=== PATIENT | female | born 1945 | race Caucasian/White ===

== ENCOUNTER 2016-06-10 08:36 | Observation (INO) ==
[2016-06-10] MEDS ORDERED: 0.9 % Sodium Chloride 1,000 ML IVC SCH (09:15)
[2016-06-10] MEDS ORDERED: *HR* Midazolam HCl 5 MG/5 ML VIAL IVP ONE (10:08)
[2016-06-10] MEDS ORDERED: *HR* FentaNYL (PF) 100 MCG/2 ML VIAL ONE (10:08)
[2016-06-10] MEDS ORDERED: Clindamycin 600 MG/50 ML 1,200 MG/100 ML IV.SOLN IVPB ONE (10:09)
[2016-06-10] MEDS ORDERED: 0.9 % Sodium Chloride 500 ML ONE ×2 (10:09→10:38)
--- NOTE | 2016-06-10 10:15 | History & Physical Report ---
Date of Encounter: 06/10/16 Time of Encounter: 10:14 24 Hour HP Update - Instructions Instructions: If the History and Physical is less than 30 days old and was completed prior to A.M. admission and or procedure and has NOT been updated on calendar day of procedure please complete this update prior to performing procedure. - Update Patient reports changes in Medical Condition: No Changes in assessment/condition: No Changes in Medication: No Preop tests/diagnostics Reviewed: Yes Surgery Remains Indicated: Yes Consent for Planned Operative Procedure(s) Verified: Yes - Pre-Operative Checklist Preoperative Checklist Indicated: Yes Prophylactic Antibiotic Ordered: Yes
--- NOTE | 2016-06-10 10:15 | Pre-Sedation Evaluation ---
Pre-sedation evaluation - Pre-sedation checklist Date of procedure: 06/10/16 Procedure: UPGRADE TO BIV ICD Recent Vitals: Last Vital Signs Temp 97.6 F 06/10/16 09:19 Pulse 63 06/10/16 09:19 Resp 18 06/10/16 09:19 BP 150/76 06/10/16 09:19 Pulse Ox 99 06/10/16 09:19 H&P (including ROS) documented in medical record: Yes Previous reaction to sedatives/anesthetics: No Dietary Status: NPO after Midnight Airway Assessment: Patient can open mouth completely, TMJ function normal, Micrognathia (under-bite, receding chin) absent Dentition: dentures removed Possible difficult airway: No ASA Classification *see protocol: CLASS II-Mild systemic disease Plan of Care: Pt appropriate candidate for procedure/moderate/conscious sedation , Risks/benefits of procedure/sedation discussed w/ patient/family
[2016-06-10] MEDS ORDERED: Ondansetron 4 MG/2 ML VIAL ONE (12:10)
[2016-06-10] MEDS: Insulin LISPRO 300 UNITS/3 ML VIAL SQ SCH (17:48)
[2016-06-10] MEDS ORDERED: Clindamycin 900 MG/50 ML 900 MG/50 ML IV.SOLN IVPB SCH (18:00)
[2016-06-10] MEDS: Acetaminophen 325 MG TABLET PO PRN (20:54)
[2016-06-10] MEDS: Ascorbic Acid 500 MG TABLET PO SCH (20:54)
[2016-06-10] MEDS ORDERED: Insulin DETEMIR 100 UNIT/ML X5UNITS SQ SCH (21:00)
[2016-06-10] MEDS: Insulin DETEMIR 100 UNIT/ML X5UNITS SQ SCH (21:05)
[2016-06-11 04:12] LABS: BUN/Creatinine Ratio 29 (6-26); Blood Urea Nitrogen 48 mg/dL (7-20); Carbon Dioxide 22 mEq/L (19-29); Chloride 106 mEq/L (98-109); Potassium 4.6 mEq/L (3.5-4.5); Sodium 138 mEq/L (136-145); eGFR For African Americans 37 (> 60); eGFR For Non-African Americans 30 (> 60)
[2016-06-11] MEDS: Ascorbic Acid 500 MG TABLET PO SCH ×2 (08:52→21:56)
[2016-06-11] MEDS: Metoprolol XL (24 HR) Succ 50 MG TAB.ER.24H PO SCH (08:52)
[2016-06-11] MEDS: Multivit/Ca/Min/Fe/FA 1 TAB TABLET PO SCH (08:52)
[2016-06-11] MEDS: Aspirin Enteric Coated 81 MG Tablet PO SCH (08:52)
[2016-06-11] MEDS: Insulin LISPRO 300 UNITS/3 ML VIAL SQ SCH ×3 (08:53→17:23)
[2016-06-11] MEDS: 0.9 % Sodium Chloride 1,000 ML IVC SCH (08:58)
[2016-06-11] MEDS ORDERED: Furosemide 20 MG TABLET PO SCH (09:00)
--- NOTE | 2016-06-11 09:06 | Invasive Diagnostic Lab ---
Upgrade to BiV ICD Name: Eleni Bentley Date of Study: 06/10/2016 Date: 1945 Ht: 160.0 cm / 63.0 in Medical Record#: [id number] Age: 70 Wt: 103.9 kg / 229.0 lb Gender: Female BSA: 2.05 Location: [facility]oro Dose: 2554 mGy BMI: 40.57 Performing MD: Yannick Chavez MD, [facility] Referring MD: Wale Lam DO Procedures Performed: Procedure LV LEAD INSERTION ICD GEN CHANGE BiV(3 leads) Indications: Description Ischemic cardiomyopathy Impressions: GENERATOR UPGRADE * Successful upgrade of a dual chamber ICD to a biventricular ICD. Degree of difficulty was severe. Appropriate device functionality was observed at the end of the case. Procedure complete without incident. Recommendations: The patient will follow-up in 4-6 weeks for ICD interrogation and evaluation with their Computer Technology Instructor. Procedure Description: After obtaining written informed consent, the patient was brought to the electrophysiology laboratory in the fasting, post absorptive state. Prior to the procedure, the device was interrogated and all therapies were turned off. The patient was prepped and draped using routine sterile procedure. Local anesthesia was obtained with 1% Lidocaine. A 3 cm incision was made at the site of the previous defibrillator. The incision was carried down to the level of the device. The device was explanted without difficulty. The leads were released from the scar tissue. All leads were examined thoroughly and no staining or insulation break was observed. Venous access was obtained using one Axillary vein sticks. A total of one venous guide wires were utilized. The coronary sinus lead was then placed. A 9 Fr. Safe sheath was used. This required multiple predilations to finally pass the 9 pashto sheath. Delivery was achieved using the [employer] 5260 Delivery System delivery system to engage the coronary sinus in the LAURIE projection. Once the coronary sinus was accessed the sheath was slid over the lead into the coronary sinus and contrast venography was performed. This required multiple attempts to cannulate due to a high take off and acute angle of the CS. The lead was placed in the posterolateral branch. There was good separation of the RV and LV in this location. Using an extended bipolar configuration, going from the coil of the LV to the RV distal coil, the sensing and pacing parameters were obtained. See device, pacing and sensing data below. The coronary sinus lead was sutured to the underlying fascia with a #0 silk. The RV lead was sutured to the prepectoral fascia with #0 silk. The pocket was revised to accommodate the new defibrillator size, and hemostasis achieved. Leads were connected to the new pulse generator and placed in the pocket. Defibrillation threshold testing was not done. After copious irrigation of the pocket with antibiotic solution the pocket was closed with absorbable sutures. The skin was closed with a running subcuticular absorbable suture. Steri-strips and pressure dressing applied. The patient tolerated the procedure well. Complications: None Disposition: The patient was returned to the recovery room. Patient will be scheduled to have a follow-up wound check in one week here at [facility]. ICD Device Information: Bottom Liquor Attendant Model Name Model Number Serial Number medtronic Claria MRI Quad TOOLING SPECIALIST-D SureScan [id number] ICD Lead(s) Information: Bottom Liquor Attendant Model Name Model No. Serial No. Placement Medtronic CapSureFix Novus 5076 [id number] RA appendage Medtronic Sprint quattro secure 6947 [id number] RV Ponce medtronic attain performa 4298 [id number] CS ostium Device Measurement Data: Sensing (mV) Threshold (V) / (msec) Impedance (Ohms) Atrial Lead 1.8 0.5 / 0.4 450 RV Lead 8 1 / 0.4 500 LV Lead 1.7 / 0.5 763 Device Settings: MODE: DDDR Lower Rate: 60 bpm ELVIRA Delay: Upper Rate: 120 bpm PAV Delay: Procedure Medications: Time Medication Dose Unit Route 10:26 AM Oxygen 2 L/min nasal cannula 10:28 AM Clindamycin 600 mg Intravenous 10:28 AM Versed 1 Mg Intravenous 10:28 AM Fentanyl 25 Mcg Intravenous 10:49 AM Lidocaine 2% 10 mL Subcutaneous 10:53 AM Lidocaine 2% 4 mL Subcutaneous 11:00 AM Lidocaine 2% 3 mL Subcutaneous 11:59 AM Versed 1 Mg Intravenous 11:59 AM Fentanyl 25 Mcg Intravenous 12:10 PM Zofran 4 mg Intravenous 12:26 PM Versed 1 Mg Intravenous 12:26 PM Fentanyl 25 Mcg Intravenous 01:20 PM Lidocaine 2% 3 mL Subcutaneous 01:24 PM Lidocaine 2% 2 mL Subcutaneous Contrast: Isovue 114 ml. Complications: No complications occurred during the procedure. Complication None Updated by Yannick Chavez MD, FACC on 06/11/2016 8:59:58 AM electronically signed on 06/11/2016 9:01:35 AM with status of Final
[2016-06-11] MEDS: *HR* Morphine 2 MG/ML SYRINGE IVP PRN (11:22)
--- NOTE | 2016-06-11 11:35 | Discharge Summary ---
Date of Encounter: 06/11/16 Time of Encounter: 11:30 - Discharge Diagnosis (1) Biventricular ICD (implantable cardioverter-defibrillator) in place Priority: Primary Status: Acute Comments: S/P BiV-ICD upgrade yesterday. Device interrogation and CXR okay. Left chest site healing well. No bleeding, hematoma or ecchymosis. Steri-strips intact. Creatinine 1.68 today--hx of CKD with fluctuating creatinine. Creatinine was 1.73 on 05/05, 1.20 on 06/01. Gentle hydration with IV fluids. Recheck renal function at noon and if improving, will discharge home. Follow-up already scheduled--wound check in 7-10 days, device check in 4-6 weeks and follow-up with Dr. Yannick Chavez in 3 months. (2) CKD (chronic kidney disease) stage 3, GFR 30-59 ml/min Priority: Secondary Status: Chronic Comments: Known CKD stage 3 with fluctuating creatinine. 1.68 this AM. Was 1.73 on 05/05 and 1/20 on 06/01. Will gently hydrate with IV fluids and recheck BMP at noon. If stable/improving, will discharge home. - Discharge Medications Home Medications: Clopidogrel [Plavix] 75 mg PO DAILY 11/08/14 [History] Ergocalciferol (VITAMIN D2) [Drisdol (50,000 Unit)] 50,000 unit PO MOTH [History] Losartan Potassium [Cozaar] 50 mg PO DAILY 11/08/14 [History] Ascorbic Acid [Vitamin C] 500 mg PO BID tablet 08/04/15 [Rx] Aspirin Enteric Coated [Aspirin EC] 81 mg PO DAILY 08/20/15 [History] Metoprolol XL (24 HR) Succ [Toprol Xl] 50 mg PO DAILY #30 tab.er.24h 01/07/16 [ Rx] Furosemide [Lasix] 20 mg PO DAILY 06/10/16 [History] Insulin Glargine,Hum.rec.anlog [Toujeo Solostar] 45 units SQ HS 06/10/16 [ History] Insulin LISPRO [HumaLOG] 18 units SQ TIDWM 06/10/16 [History] Multivit-Minerals/Folic/Ginkgo [One Daily For Women 50+ Adv Tb] 1 each PO DAILY 06/10/16 [History] Allergies/Adverse Reactions: Allergies venom-honey bee [bee venom (honey bee)] Allergy (Severe, Verified 06/10/16 09:16 ) Swelling of Lip/Tongue/Throat Cortisone Allergy (Mild, Verified 06/10/16 09:16) Hives NSAIDS (Non-Steroidal Anti-Inflamma Adverse Reaction (Mild, Verified 06/10/16 09 :16) UPSET STOMACH cefazolin [From Ancef] Adverse Reaction (Verified 06/10/16 09:16) Hives Lmmfdrk-Mhf-Hgu Reductase Inhibitor [Statins] Adverse Reaction (Verified 09:16) Muscle Pain GRAPE FLAVOR Allergy (Mild, Uncoded 06/10/16 09:16) Swelling of the Eye Procedures/tests Complete & Pending: Procedures Performed prior 72 hours Category Date Time Status CL Insert BiV ICD [CL] Routine Metal Casket Assembler 06/10/16 09:08 Completed ECG 12 lead ECG [ECG] Stat Y 06/10/16 09:09 Completed Date of admission: 06/10/16 Primary care physician: Martine Crespo Discharging clinician: Rommel Castorena Anticipated date of discharge: 06/11/16 - Patient Status Disposition: Home, Self-Care Condition: Fair Functional capacity at discharge: independent ambulation Overall status at discharge: patient is progressing back to baseline - Discharge Instructions Follow Up With: Wale Lam DO [Primary Care Provider] - Additional Instructions: ACTIVITY: Moderate activity for the next 7 days. No lifting more than 5 pounds ( gallon of milk) for 1 week. BATHING /SHOWERING: Do not remove the large bandage over the site for 2 days. Do not allow the device to get wet for 7-10 days. You may bathe/shower, but do not use soap and water on the site. When bathing, keep the site dry by covering with Saran wrap or a towel. WOUND CARE: The white steri-strips will start to peel away and come off after 14 days, or your doctor will remove them after [address] anything into or on top of the incision. Do not use cotton swabs. Do not use any antibiotic ointment or Vitamin E on the site. REMINDERS: You may use electrical devices, such as, microwaves, hair dryers, electric razors, electric blankets, etc. as long as they are in good condition and kept 6 -8 inches away from the device. It is recommended to use cell phones on the opposite side of your device. Notify security personnel at the airport that you have a device before you go through airport security screening. When at places with security monitors, such as a grocery store, do not linger near these monitors. It is fine to walk past them in a normal manner. Refer to your owners manual for more specific directions. CARRY YOUR PACEMAKER/ICD CARD WITH YOU AT ALL TIMES Return to work as instructed per physician Resume driving as instructed per physician Keep all scheduled follow up appointments Resume medications as instructed Contact [facility] ( ) if: You develop excessive bleeding from insertion or wound site not controlled by applying pressure You develop a fever greater than 101 degrees Fahrenheit Your incision becomes reddened at or around the site Your incision develops yellowish or greenish drainage or development of white pimple-like bumps You experience excessive pain You develop swelling in your ankles You experience muscle switching You develop excessive hiccupping If you experience chest pain, shortness of breath, dizziness, or extreme tiredness, stop the activity and rest. Please notify [facility] office if you experience any of these symptoms and they are not relieved by rest please call 911! - Diet and Activity Activity: increase activity as tolerated Diet: low fat, low cholesterol, low salt diet - Hospital Course Hospital course: Ms. Bentley is a 70 year old female S/P BiV-ICD upgrade yesterday. Device interrogation and CXR okay. Left chest site healing well. No bleeding, hematoma or ecchymosis. Steri-strips intact. Creatinine 1.68 today--hx of CKD with fluctuating creatinine. Creatinine was 1.73 on 05/05, 1.20 on 06/01. Gentle hydration with IV fluids. Recheck renal function at noon and if improving, will discharge home. Follow-up already scheduled--wound check in 7-10 days, device check in 4-6 weeks and follow-up with Dr. Yannick Chavez in 3 months. - Time Spent with Patient Total time spent providing and/or coordinating discharge services: Physical Examination Vital Signs, Last 4 Hours Temp Pulse Resp BP Pulse Ox 06/11/16 08:00 98.0 F 72 14 128/72 95 Vital Signs Temp Pulse Resp BP Pulse Ox 06/11/16 11:45 97.7 F 71 18 163/78 97 06/11/16 08:00 98.0 F 72 14 128/72 95 06/11/16 04:21 98.0 F 77 16 145/75 93 L 06/11/16 00:45 98.1 F 91 16 171/77 95 06/10/16 19:37 97.9 F 83 18 158/78 97 06/10/16 15:30 97.7 F 61 18 146/82 97 Intake and Output 06/10/16 06/11/16 06/11/16 23:59 07:59 15:59 Intake Total 200 / 200 Output Total 400 / 400 Balance 200 / 200 -400 / -400 Intake: Oral 200 / 200 Output: Urine 400 / 400 Other: Meal Dinner Percent of Meal Consumed 95% # Voids 2 Weight 102.24 kg Blood Glucose* 348 135 Patient Weight 06/11/16 23:59 Weight 102.24 kg General: Conversant, No Apparent Distress HEENT: Atraumatic, Normocephaly, Mucus Membranes Moist Neck: No JVD, Normal carotid pulses Cardiac: Reg Rate and Rhythm, Normal S1 and S2, No Murmur Lungs: Normal Breath Sounds, No Wheeze, Rales, Rhonchi Neuro: Alert and responsive, No focal deficits noted Abdomen: Soft, Non-Tender Skin: Other (Left side chest device site healing well. No bleeding, hematoma or ecchymosis noted.) Musculoskeletal: No Chest Wall Tenderness Extremities: No Clubbing, No Cyanosis, No Edema, Normal Pulses
[2016-06-11 14:38] LABS: Calcium 9.4 mg/dL (8.6-10.8)
[2016-06-11 14:40] LABS: Potassium 5.6 mEq/L (3.5-4.5)
[2016-06-11] MEDS: 0.9 % Sodium Chloride 500 ML IVC SCH (15:52)
[2016-06-11] MEDS: Acetaminophen 325 MG TABLET PO PRN (15:55)
[2016-06-11] MEDS: *HR* Heparin 5,000 UNIT/ML VIAL SQ SCH (17:24)
--- NOTE | 2016-06-11 17:49 | Electrocardiograph Report ---
[place] [id number] Test Date: 2016-06-10 Pat Name: Eleni Bentley Department: 106 Room: 3B24 Gender: F Locum Tenens: : 1945 Requested By: Yannick Chavez Order Number: [id number] Reading MD: Lore Chavez Measurements Intervals [place] Rate: 61 P: 177 OR: 180 QRS: -75 QRSD: 175 T: 103 QT: 506 QTc: 508 Interpretive Statements ELECTRONIC ATRIAL PACEMAKER ELECTRONIC VENTRICULAR PACEMAKER ABNORMAL RHYTHM ECG Electronically Signed On 06-11-2016 17:47:09 EST by Lore Chavez
[2016-06-11] MEDS: Insulin DETEMIR 100 UNIT/ML X5UNITS SQ SCH (21:56)
[2016-06-12] MEDS: 0.9 % Sodium Chloride 500 ML IVC SCH ×2 (05:16→08:50)
[2016-06-12] MEDS: 0.9 % Sodium Chloride 1,000 ML IVC SCH ×2 (05:16→08:41)
[2016-06-12] MEDS: *HR* Heparin 5,000 UNIT/ML VIAL SQ SCH (05:17)
[2016-06-12] MEDS: Acetaminophen 325 MG TABLET PO PRN (05:18)
[2016-06-12 05:29] LABS: Calcium 9.5 mg/dL (8.6-10.8); Potassium 4.8 mEq/L (3.5-4.5)
[2016-06-12] MEDS: Aspirin Enteric Coated 81 MG Tablet PO SCH (08:39)
[2016-06-12] MEDS: Metoprolol XL (24 HR) Succ 50 MG TAB.ER.24H PO SCH (08:39)
[2016-06-12] MEDS: Insulin LISPRO 300 UNITS/3 ML VIAL SQ SCH ×2 (08:39→12:11)
[2016-06-12] MEDS: Multivit/Ca/Min/Fe/FA 1 TAB TABLET PO SCH (08:39)
[2016-06-12] MEDS: Ascorbic Acid 500 MG TABLET PO SCH (08:39)
[2016-06-12] MEDS: *HR* Morphine 2 MG/ML SYRINGE IVP PRN (08:39)
[2016-06-12 11:02] VITALS: BP 155/77
--- NOTE | 2016-06-12 11:32 | Discharge Summary ---
Date of Encounter: 06/12/16 Time of Encounter: 11:20 - Discharge Diagnosis (1) Biventricular ICD (implantable cardioverter-defibrillator) in place Priority: Primary Status: Acute (2) CKD (chronic kidney disease) stage 3, GFR 30-59 ml/min Priority: Primary Status: Acute Comments: Mild TENISHA on CKD. - Discharge Medications Home Medications: Clopidogrel [Plavix] 75 mg PO DAILY 11/08/14 [History] Ergocalciferol (VITAMIN D2) [Drisdol (50,000 Unit)] 50,000 unit PO MOTH [History] Ascorbic Acid [Vitamin C] 500 mg PO BID tablet 08/04/15 [Rx] Aspirin Enteric Coated [Aspirin EC] 81 mg PO DAILY 08/20/15 [History] Metoprolol XL (24 HR) Succ [Toprol Xl] 50 mg PO DAILY #30 tab.er.24h 01/07/16 [ Rx] Insulin Glargine,Hum.rec.anlog [Toujeo Solostar] 45 units SQ HS 06/10/16 [ History] Insulin LISPRO [HumaLOG] 18 units SQ TIDWM 06/10/16 [History] Multivit-Minerals/Folic/Ginkgo [One Daily For Women 50+ Adv Tb] 1 each PO DAILY 06/10/16 [History] Allergies/Adverse Reactions: Allergies venom-honey bee [bee venom (honey bee)] Allergy (Severe, Verified 06/10/16 09:16 ) Swelling of Lip/Tongue/Throat Cortisone Allergy (Mild, Verified 06/10/16 09:16) Hives NSAIDS (Non-Steroidal Anti-Inflamma Adverse Reaction (Mild, Verified 06/10/16 09 :16) UPSET STOMACH cefazolin [From Ancef] Adverse Reaction (Verified 06/10/16 09:16) Hives Gsofrxf-Zye-Mmz Reductase Inhibitor [Statins] Adverse Reaction (Verified 09:16) Muscle Pain GRAPE FLAVOR Allergy (Mild, Uncoded 06/10/16 09:16) Swelling of the Eye Procedures/tests Complete & Pending: Procedures Performed prior 72 hours Category Date Time Status CL Insert BiV ICD [CL] Routine Barrel Scraper 06/10/16 09:08 Completed ECG 12 lead ECG [ECG] Stat Y 06/10/16 09:09 Completed Date of admission: 06/11/16 15:23 Primary care physician: Martine Crepso Discharging clinician: Ayaz Betancourt Anticipated date of discharge: 06/12/16 - Patient Status Disposition: Home, Self-Care Condition: Fair Functional capacity at discharge: independent ambulation - Ambulatory Orders Ambulatory Orders: Basic Metabolic Panel [CHEM] Time Frame: 3 Days, Facility: [facility], Location: Lab - Discharge Instructions Follow Up With: Wale Lam DO [Primary Care Provider] - Bruno Cardona MD [Partnered Physician] - (Please schedule appt in 1 -2 weeks. ) Additional Instructions: ACTIVITY: Moderate activity for the next 7 days. No lifting more than 5 pounds ( gallon of milk) for 1 week. BATHING /SHOWERING: Do not remove the large bandage over the site for 2 days. Do not allow the device to get wet for 7-10 days. You may bathe/shower, but do not use soap and water on the site. When bathing, keep the site dry by covering with Saran wrap or a towel. WOUND CARE: The white steri-strips will start to peel away and come off after 14 days, or your doctor will remove them after [address] anything into or on top of the incision. Do not use cotton swabs. Do not use any antibiotic ointment or Vitamin E on the site. REMINDERS: You may use electrical devices, such as, microwaves, hair dryers, electric razors, electric blankets, etc. as long as they are in good condition and kept 6 -8 inches away from the device. It is recommended to use cell phones on the opposite side of your device. Notify security personnel at the airport that you have a device before you go through airport security screening. When at places with security monitors, such as a grocery store, do not linger near these monitors. It is fine to walk past them in a normal manner. Refer to your owners manual for more specific directions. CARRY YOUR PACEMAKER/ICD CARD WITH YOU AT ALL TIMES Return to work as instructed per physician Resume driving as instructed per physician Keep all scheduled follow up appointments Resume medications as instructed Contact [facility] ( ) if: You develop excessive bleeding from insertion or wound site not controlled by applying pressure You develop a fever greater than 101 degrees Fahrenheit Your incision becomes reddened at or around the site Your incision develops yellowish or greenish drainage or development of white pimple-like bumps You experience excessive pain You develop swelling in your ankles You experience muscle switching You develop excessive hiccupping If you experience chest pain, shortness of breath, dizziness, or extreme tiredness, stop the activity and rest. Please notify [facility] office if you experience any of these symptoms and they are not relieved by rest please call 911! - Diet and Activity Activity: increase activity as tolerated Diet: low fat, low cholesterol - Hospital Course Hospital course: Ms. Bentley is a 70 year old female S/P BiV-ICD upgrade 06/10/[address] Yannick Chavez. Device interrogation and CXR okay. Left chest site healing well. No bleeding, hematoma or ecchymosis. Steri-strips intact. Creatinine 1.88 today-- hx of CKD with fluctuating creatinine. Creatinine was 1.73 on 05/05, 1.20 on . SHe was kept an extra 24 hours to receive gentle hydration with IV fluids. Recommend checking BMP on tuesday. Encouraged fluid intake. Currenlty appears dry. Cozaar and lasix on hold. 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 Follow-up already scheduled--wound check in 7-10 days, device check in 4-6 weeks and follow-up with Dr. Yannick Chavez in 3 months. Plan of care discussed with Dr. Downs. - Time Spent with Patient Total time spent providing and/or coordinating discharge services: Greater than 30 minutes Specific discharge activities: Dc summary, d/c teaching, and medication reconciliation. Physical Examination Vital Signs, Last 4 Hours Temp Pulse Resp BP Pulse Ox 06/12/16 11:02 97.6 F 64 16 155/77 97 General: Conversant, No Apparent Distress HEENT: Atraumatic, Normocephaly, Mucus Membranes Moist Neck: No JVD, Normal carotid pulses Cardiac: Reg Rate and Rhythm, Normal S1 and S2, No Murmur Lungs: Normal Breath Sounds, No Wheeze, Rales, Rhonchi Neuro: Alert and responsive, No focal deficits noted Abdomen: Soft, Non-Tender Skin: No rashes noted on visualized skin Musculoskeletal: No Chest Wall Tenderness, Other (JEFF incisions with steri strips intact. No redness or drainage. No ecchymosis. No swelling noted. Mild tenderness. Atrial and AV pacing noted on telemetry.) Extremities: No Clubbing, No Cyanosis, No Edema, Normal Pulses
== END 2016-06-12 14:25 | disposition home or self-care (01) ==
LOC: INVDIALAB 08:36 → 3BNU 08:36
PROVIDERS: ADMIT Internal Medicine Clinical Cardiac Electrophysiology; ATTEND Internal Medicine Clinical Cardiac Electrophysiology

== ENCOUNTER 2016-10-02 19:50 | Inpatient (IN) ==
[2016-10-02] MEDS ORDERED: 0.9 % Sodium Chloride 500 ML IVC ONE (20:11)
[2016-10-02] MEDS ORDERED: Aspirin 325 MG TABLET PO ONE (20:12)
--- NOTE | 2016-10-02 20:21 | Emergency Department Note ---
Disposition Clinical Impression: Generalized weakness, Acute kidney injury superimposed on chronic kidney disease, Elevated troponin, Hyperglycemia TIA (transient ischemic attack) Qualifiers: Transient cerebral ischemia type: unspecified Qualified Code(s): G45.9 - Transient cerebral ischemic attack, unspecified Disposition: Admitted As Inpatient Condition: Undetermined Time of Disposition: 21:37 General Adult HPI - General Chief complaint: ED Back Pain/Injury Stated complaint: unable to walk back pain Time Seen by Provider: 10/02/16 20:00 Source: patient Mode of arrival: wheelchair Limitations: no limitations Nursing Notes Reviewed: Yes Vital Signs Reviewed: Yes - History of Present Illness HPI Narrative: 70-year-old female with history of ID, CVA, arrives to [facility] emergency department with left lower extremity weakness that has now resolved. The patient states that she was attempting to get into her family vehicle and was unable to lift her left lower extremity into the vehicle. The patient states that she felt weak in the left lower finger was unable to lift it. The patient states this kind of felt like her previous stroke in the past but states it is now resolved. The patient states that she was laying in the backseat of a vehicle she felt very weak and had back pain. The patient still feels weak all over but denies any focalized weakness and is able to move her left lower extremity without difficulty this time. The patient states that her back pain is beginning to resolve. The patient denies any chest pain, difficulty breathing but does admit to large amount of leg swelling. The patient was recently discharged from the hospital for CHF exacerbation. She has been experiencing seeping wounds of bilateral lower extremity. Patient denies any fevers, chills associated with this. The patient denies any headache , numbness, tingling, slurred speech, facial droop, unilateral extremity weakness noted at this time. The patient states that it has resolved now. 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: back Pain Severity: moderate Pain Scale: 8 Improves with: nothing Worsens with: nothing Associated symptoms: Reports: weakness Treatments Prior to Arrival: none - Related Data Home Medications Medication Instructions Recorded Confirmed Clopidogrel [Plavix] 75 mg PO DAILY 11/08/14 10/03/16 Ergocalciferol (VITAMIN D2) 50,000 unit PO QWEEK 11/08/14 10/03/16 [Drisdol (50,000 Unit)] Aspirin Enteric Coated [Aspirin EC] 81 mg PO DAILY 08/20/15 10/03/16 Insulin Glargine,Hum.rec.anlog 45 units SQ HS 06/10/16 10/03/16 [Todaniel Raymundo] Insulin LISPRO [HumaLOG] 18 units SQ TIDWM 06/10/16 10/03/16 Multivit-Minerals/Folic/Ginkgo 1 each PO DAILY 06/10/16 10/03/16 [One Daily For Women 50+ Adv Tb] Previous Rx's Medication Instructions Recorded Ascorbic Acid [Vitamin C] 500 mg PO BID tablet 08/04/15 Metoprolol XL (24 HR) Succ [Toprol 50 mg PO DAILY #30 tab.er.24h 01/07/16 Xl] Allergies Allergy/AdvReac Type Severity Reaction Status Date / Time venom-honey bee Allergy Severe Swelling Verified 06/10/16 09:16 [bee venom (honey bee)] of Lip/Tongue/Throat Cortisone Allergy Mild Hives Verified 06/10/16 09:16 Penicillins Allergy See Verified 10/02/16 19:59 Comments NSAIDS (Non-Steroidal AdvReac Mild UPSET Verified 06/10/16 09:16 Anti-Inflamma STOMACH cefazolin [From Ancef] AdvReac Hives Verified 06/10/16 09:16 Ywpezfs-Fcx-Ies Reductase AdvReac Muscle Pain Verified 06/10/16 09:16 Inhibitor [Statins] GRAPE FLAVOR Allergy Mild Swelling Uncoded 06/10/16 09:16 of the Eye All systems ED: reviewed and negative except as stated. Constitutional: Reports: weakness. Denies: fever, chills Eyes: Denies: eye pain, eye discharge, vision change ENT ED: Denies: ear pain, throat pain, dental pain, hearing loss, epistaxis, congestion, dysphagia Cardiovascular: Reports: dyspnea on exertion, edema. Denies: chest pain, palpitations, syncope Respiratory: Denies: cough, dyspnea, wheezes, hemoptysis, stridor Gastrointestinal: Denies: abdominal pain, nausea, vomiting, diarrhea, constipation, hematemesis, melena, hematochezia Genitourinary: Denies: dysuria, frequency, hematuria, discharge Musculoskeletal: Denies: back pain, neck pain, arthralgia, myalgia Integumentary: Denies: rash, abrasion, lesions Neurological: Reports: weakness. Denies: headache, numbness, paresthesias, confusion, abnormal gait, vertigo Past Medical History - Past Medical History Attestation: Yes The following information was validated with the patient. Source: patient Medical history: Reports: cardiomyopathy, CHF, coronary artery disease, CVA, diabetes, GERD, hyperlipidemia, hypertension, kidney stones, myocardial infarction, peripheral artery disease, renal disease, TIA Surgical history: Reports: appendectomy, breast surgery, carotid endarterectomy , cholecystectomy, coronary bypass (CABG), hysterectomy, pacemaker/AICD Psychiatric history: Reports: depression - Social History Smoking Status: Former smoker Smokeless Tobacco Status: No Alcohol use: Reports: none Drug use: Reports: none Physical Exam - General Limitations: no limitations General appearance: alert, in no apparent distress - Neck Neck exam: Present: normal inspection, full ROM, trachea midline - Chest Chest inspection: Present: normal inspection, symmetric chest wall rise - Respiratory Respiratory exam: Present: other (Mild rales in b/l lower lobes) - Cardiovascular Cardiovascular exam: Present: regular rate, normal rhythm, normal heart sounds - Abdominal Exam Abdominal exam: Present: soft, Non-Tender. Absent: tenderness, distention, guarding, rebound, rigidity - Extremities Exam Extremities exam: Present: full ROM, pedal edema (1+ pitting), other (Numerous amputations on left foot). Absent: tenderness - Neurological Exam Neurological exam: Present: alert, oriented X3 - Skin Skin exam: Present: warm, dry, intact, normal color Course Vital Signs Temperature 97.9 F 10/02/16 19:54 Pulse Rate 76 10/02/16 19:54 Respiratory Rate 18 10/02/16 19:54 Blood Pressure 152/73 10/02/16 19:54 O2 Sat by Pulse Oximetry 100 10/02/16 19:54 Temperature 97.6 F 10/02/16 23:36 Pulse Rate 73 10/02/16 23:36 Respiratory Rate 17 10/02/16 23:36 Blood Pressure 156/79 10/02/16 23:36 O2 Sat by Pulse Oximetry 97 10/02/16 23:36 Oxygen Delivery Oxygen Delivery Room Air Medical Decision Making - MDM Narrative Medical decision making narrative: Patient's workup here in the emergency department demonstrates hyperglycemia, elevated troponin, acute on chronic kidney disease. The patient's creatinine is slightly elevated compared to her has been in the past. In addition the patient's weakness may be associated with symptomatic hyperglycemia but given her previous history of TIA and CVA, I am concerned about possible TIA. She has no residual deficits noted at this time. Given the patient's symptoms and findings will admit the patient to the hospital. Accepted by Dr. Orozco. - Medical Records Medical records reviewed: Yes I reviewed the patient's medical records. - Lab Data Lab results reviewed: Yes I reviewed the patient's lab results. Result diagrams: 10/02/16 20:20 10/02/16 20:20 Lab Results 10/02/16 10/02/16 10/02/16 Range/Units 20:20 20:20 20:20 WBC 7.6 (4.3-11.1) K/mcL RBC 4.46 (3.82-4.97) M/mcL Hgb 12.4 (11.5-15.4) g/dL Hct 38.8 (35.3-44.9) % MCV 87.0 (83.0-100.0) fL MCH 27.8 L (28.0-33.3) pg MCHC 32.0 (31.6-35.5) g/dL RDW 14.3 (11.5-14.5) % Plt Count 274 (140-400) K/mcL MPV 11.1 (9.4-12.4) fL Immature Gran % 0.8 (0-4) % Seg Neutrophils % 67.9 % Lymphocytes % 16.6 % Monocytes % 6.5 % Eosinophils % 7.5 % Basophils % 0.7 % Neutrophils # 5.1 (1.6-8.9) K/mcL Lymphocytes # 1.3 (0.6-4.6) K/mcL Monocytes # 0.5 (0.0-1.3) K/mcL Eosinophils # 0.6 (0.0-0.6) K/mcL Basophils # 0.1 (0.0-0.2) K/mcL VBG pH (7.32-7.42) pH Units VBG pCO2 (41-51) mmHg VBG pO2 (25-40) mmHg VBG HCO3 (21-27) mEq/L Sodium 133 L (136-145) mEq/L Potassium 4.4 (3.5-4.5) mEq/L Chloride 100 (98-109) mEq/L Carbon Dioxide 19 (19-29) mEq/L BUN 71 H (7-20) mg/dL Creatinine 2.20 H (0.57-1.11) mg/dL Est GFR ( Amer) 27 L (> 60) Est GFR (Non-Af Amer) 22 L (> 60) BUN/Creatinine Ratio 32 H (6-26) Glucose 486 H (70-99) mg/dL Calculated Osmolality 318 H (280-300) Calcium 9.9 (8.6-10.8) mg/dL Total Bilirubin 0.8 (0.2-1.2) mg/dL AST 16 (5-34) Units/L ALT 11 (0-55) Units/L Alkaline Phosphatase 159 H (38-126) Units/L Troponin I 0.09 H* (0-0.03) ng/mL B-Natriuretic Peptide (0-100) pg/mL Serum Total Protein 7.9 (6.0-8.3) g/dL Albumin 2.9 L (3.5-5.0) g/dL Globulin 5.0 H (2.4-3.5) g/dL Albumin/Globulin Ratio 0.6 L (1.1-2.2) Beta-Hydroxybutyric Acd 0.25 (0.02-0.27) mmol/L Urine Color (Yellow) Urine Clarity (Clear) Urine pH (5.0-8.0) pH Units Ur Specific [place] (1.010-1.025) Urine Protein (Neg-Trace) mg/dL Urine Glucose (UA) (Normal) mg/dL Urine Ketones (Negative) mg/dL Urine Blood (Negative) Urine Nitrite (Negative) Urine Bilirubin (Negative) Urine Urobilinogen (Normal) mg/dL Ur Leukocyte Esterase (Negative) Urine Microscopic RBC (0-3) per hpf Urine Microscopic WBC (0-3) per hpf Ur Squamous Epith Cells (None-Few) per lpf Urine Bacteria (None-Few) per hpf Hyaline Casts (None-Few) per lpf Ur Culture Indicated? (NO) 10/02/16 10/02/16 10/02/16 Range/Units 20:20 20:20 21:40 WBC (4.3-11.1) K/mcL RBC (3.82-4.97) M/mcL Hgb (11.5-15.4) g/dL Hct (35.3-44.9) % MCV (83.0-100.0) fL MCH (28.0-33.3) pg MCHC (31.6-35.5) g/dL RDW (11.5-14.5) % Plt Count (140-400) K/mcL MPV (9.4-12.4) fL Immature Gran % (0-4) % Seg Neutrophils % % Lymphocytes % % Monocytes % % Eosinophils % % Basophils % % Neutrophils # (1.6-8.9) K/mcL Lymphocytes # (0.6-4.6) K/mcL Monocytes # (0.0-1.3) K/mcL Eosinophils # (0.0-0.6) K/mcL Basophils # (0.0-0.2) K/mcL VBG pH 7.34 (7.32-7.42) pH Units VBG pCO2 41 (41-51) mmHg VBG pO2 58 H (25-40) mmHg VBG HCO3 22.1 (21-27) mEq/L Sodium (136-145) mEq/L Potassium (3.5-4.5) mEq/L Chloride (98-109) mEq/L Carbon Dioxide (19-29) mEq/L BUN (7-20) mg/dL Creatinine (0.57-1.11) mg/dL Est GFR ( Amer) (> 60) Est GFR (Non-Af Amer) (> 60) BUN/Creatinine Ratio (6-26) Glucose (70-99) mg/dL Calculated Osmolality (280-300) Calcium (8.6-10.8) mg/dL Total Bilirubin (0.2-1.2) mg/dL AST (5-34) Units/L ALT (0-55) Units/L Alkaline Phosphatase (38-126) Units/L Troponin I (0-0.03) ng/mL B-Natriuretic Peptide 347 H (0-100) pg/mL Serum Total Protein (6.0-8.3) g/dL Albumin (3.5-5.0) g/dL Globulin (2.4-3.5) g/dL Albumin/Globulin Ratio (1.1-2.2) Beta-Hydroxybutyric Acd (0.02-0.27) mmol/L Urine Color Yellow (Yellow) Urine Clarity Cloudy A (Clear) Urine pH 5.0 (5.0-8.0) pH Units Ur Specific [place] 1.022 (1.010-1.025) Urine Protein 100 H (Neg-Trace) mg/dL Urine Glucose (UA) >=1000 H (Normal) mg/dL Urine Ketones Negative (Negative) mg/dL Urine Blood Negative (Negative) Urine Nitrite Negative (Negative) Urine Bilirubin Negative (Negative) Urine Urobilinogen Normal (Normal) mg/dL Ur Leukocyte Esterase Negative (Negative) Urine Microscopic RBC 0-3 (0-3) per hpf Urine Microscopic WBC 0-3 (0-3) per hpf Ur Squamous Epith Cells Many H (None-Few) per lpf Urine Bacteria None Seen (None-Few) per hpf Hyaline Casts None Seen (None-Few) per lpf Ur Culture Indicated? NO (NO) - Radiology Data Radiology results reviewed: Yes I reviewed the patient's radiology results. - EKG Data EKG #1 EKG attestation: Yes I reviewed and interpreted this EKG. EKG results narrative: Heart rate 87 bpm. OR interval 149 ms. QTC 491 ms. Normal axis. Electronic ventricular pacemaker care. No ST elevation or depression noted. EKG otherwise similar to EKG from 06/20/2016. Q changes noted. Attestation Statement - Attestation Attestation: The resident's plan of care. In summary this is a 70-year-old female presents with concern for weakness. She does not a history of uncontrolled diabetes. She was found to have hyperglycemia on arrival. She was treated for possible diabetic ketoacidosis. Ultimately she was found to have likely symptomatic hyperglycemia as well as chronic skin changes of the lower extremities. Given her complaint of weakness with complete return to normal neurologic status over the procedure with admission for rule out of transischemic attack. Additionally given the degree of hyperglycemia the patient is experiencing I would suspect she would benefit from aggressive inpatient treatment. IV fluids were initiated. Cardiac biomarkers were evaluated. She was found have acute kidney injury. Her cardiac biomarkers were slightly elevated. She was administered aspirin. I do not suspect a ID at this time as she denies chest pain however she will need turning of her cardiac biomarkers. I would defer anticoagulation to the hospitalist team. The patient was stable at the time of admission. IV fluids were initiated. Patient be admitted to telemetry services with frequent neurological checks.
[2016-10-02 20:28] LABS: Basophils # 0.1 K/mcL (0.0-0.2); Basophils % 0.7 %; Eosinophils # 0.6 K/mcL (0.0-0.6); Eosinophils % 7.5 %; Hematocrit 38.8 % (35.3-44.9); Hemoglobin 12.4 g/dL (11.5-15.4); Immature Granulocytes % 0.8 % (0-4); Lymphocytes # 1.3 K/mcL (0.6-4.6); Lymphocytes % 16.6 %; Mean Corpuscular Hemoglobin 27.8 pg (28.0-33.3); Mean Platelet Volume 11.1 fL (9.4-12.4); Monocytes # 0.5 K/mcL (0.0-1.3); Monocytes % 6.5 %; Neutrophils # 5.1 K/mcL (1.6-8.9); Platelet Count 274 K/mcL (140-400); Red Blood Count 4.46 M/mcL (3.82-4.97); Red Cell Distribution Width 14.3 % (11.5-14.5); Segmented Neutrophils % 67.9 %
[2016-10-02 20:29] LABS: VBG HCO3 22.1 mEq/L (21-27); VBG PH 7.34 pH Units (7.32-7.42)
[2016-10-02 20:34] LABS: Beta-Hydroxybutyric Acid 0.25 mmol/L (0.02-0.27)
[2016-10-02 20:45] LABS: Albumin 2.9 g/dL (3.5-5.0); Albumin/Globulin Ratio 0.6 (1.1-2.2); Bilirubin,Total 0.8 mg/dL (0.2-1.2); Calcium 9.9 mg/dL (8.6-10.8); Potassium 4.4 mEq/L (3.5-4.5); Total Protein 7.9 g/dL (6.0-8.3)
[2016-10-02] MEDS ORDERED: 0.9 % Sodium Chloride 1,000 ML IVC ONE (21:14)
[2016-10-02 21:50] LABS: Bilirubin,Urine Negative (Negative); Blood,Urine Negative (Negative); Clarity,Urine Cloudy (Clear); Color,Urine Yellow (Yellow); Glucose,Urine (UA) >=1000 mg/dL (Normal); Ketones,Urine Negative (Negative); Leukocyte Esterase,Urine Negative (Negative); Nitrite,Urine Negative (Negative); Protein,Urine 100 mg/dL (Neg-Trace); Specific Gravity,Urine 1.022 (1.010-1.025); Urobilinogen,Urine Normal (Normal)
[2016-10-02 21:53] LABS: Bacteria,Urine None Seen per hpf (None-Few); Hyaline Casts,Urine None Seen per lpf (None-Few); RBC,Urine 0-3 per hpf (0-3); Squamous Epithelial Cell,Urine Many per lpf (None-Few); WBC,Urine 0-3 per hpf (0-3)
[2016-10-02] MEDS ORDERED: D5% in Water 1,000 ML IVC PRN (22:30)
[2016-10-02] MEDS ORDERED: Dextrose Gel 15 GM PO PRN ×2 (22:30)
[2016-10-02] MEDS ORDERED: *HR* Dextrose 50 % in Water (Syg) 50 ML SYRINGE IVP PRN (22:30)
[2016-10-03] MEDS ORDERED: Ondansetron 4 MG/2 ML VIAL IVP PRN (00:30)
[2016-10-03] MEDS ORDERED: Naloxone 0.4 MG/ML INJ IVP PRN (00:30)
[2016-10-03] MEDS ORDERED: *HR* Metoprolol 5 MG/5 ML VIAL IVP SCH (00:34)
[2016-10-03] MEDS ORDERED: Insulin DETEMIR 100 UNIT/ML X5UNITS SQ SCH (00:45)
--- NOTE | 2016-10-03 00:49 | Internal Med History&Physical ---
Date of Encounter: 10/03/16 Time of Encounter: 00:10 Assessment and Plan (1) TIA (transient ischemic attack) Current visit: Yes Status: Acute NIHSS: 0 complete resolution of symptoms at this time CT head negative for any acute intracranial abnormalities f/u MRI head f/u 2D echo, carotid doppler PT/OT eval bedside speech evaluation close monitor of BP ASA, plavix tele monitoring f/u neurology consultation Qualifiers: Transient cerebral ischemia type: unspecified Qualified Code(s): G45.9 - Transient cerebral ischemic attack, unspecified (2) Elevated troponin Current visit: Yes Status: Acute Likely demand ischemia no EKG changes reported no chest pain reported elevated TNI in setting of TENISHA on CKD will monitor serial TNI (3) CKD (chronic kidney disease) stage 3, GFR 30-59 ml/min Current visit: No Status: Acute Renal function unchanged from September 09, 2016 however significantly worsened from July 2016 Will closely monitor renal function avoid nephrotoxic agents at this time consider renal US if renal function further deteriorates (4) Hypertension Current visit: Yes Status: Chronic Resume home medications continue to monitor Qualifiers: Hypertension type: essential hypertension Qualified Code(s): I10 - Essential (primary) hypertension (5) Cardiomyopathy Current visit: No Status: Chronic s/p AICD follow up repeat 2D echo continue home medications Qualifiers: Cardiomyopathy type: ischemic Qualified Code(s): I25.5 - Ischemic cardiomyopathy (6) Diabetes mellitus Current visit: No Status: Chronic history of uncontrolled DM HbA1c: 11.9 on September continue home dose of levemir and humalog added sliding dose insulin algorithm continue to monitor FS and BG ADA diet once patient clears bedside speech evaluation Qualifiers: Diabetes mellitus type: type 2 Diabetes mellitus complication status: with circulatory complication Diabetes mellitus complication detail: with peripheral angiopathy without gangrene Diabetes mellitus ad terminal makeup operator insulin use : without ad terminal makeup operator use Qualified Code(s): E11.51 - Type 2 diabetes mellitus with diabetic peripheral angiopathy without gangrene (7) DVT prophylaxis Current visit: No Status: Acute Heparin SQ (8) Morbid obesity with BMI of 40.0-44.9, adult Current visit: Yes Status: Chronic Internal Medicine - H&P: HPI Chief complaint: lower extremity weakness Admitted From: Home Plans for Post Hospital Care: Home History of present illness: Ms. Bentley is a 70 year old female with PMH of DM, CAD, ischemic cardiomyopathy , s/p AICD, DM, HLD, TIA, b/l LE diabetic foot ulcers, and morbid obesity presents to the ER for an acute onset of lower extremity weakness. Patient states at baseline she is wheelchair bound and uses a walker to go to the bathroom. She reports of being at [facility] with her family and had a difficult time lifting her lower extremities to get into the car due to which she came to the ER. She has a prior history of TIA with similar presentation. Upon arrival to the ER, she had complete resolution of her symptoms. At this time she is resting in bed and reports of feeling weak but better than she did earlier in the evening. Denies any headache, dizziness, lightheadedness, numbness, tingling , slurred speech, facial droop, chest pain, abd pain, n/v, fever, or chills at this time. She reports of chronic pain in her bilateral feet. Pt is a former smoker and wishes to be full code. Past Med Surg Social Fam HX - Past Medical History Medical history: cardiomyopathy, CHF, coronary artery disease, CVA, diabetes, GERD, hyperlipidemia, hypertension, kidney stones, myocardial infarction, peripheral artery disease, renal disease, TIA Psychiatric history: depression - Past Surgical History Surgical History: appendectomy, breast surgery, carotid endarterectomy, cholecystectomy, coronary bypass (CABG), hysterectomy, pacemaker/AICD - Social History Smoking Status: Former smoker Smokeless Tobacco Status: No Alcohol use: none Drug use: none - Family History Mother Living Status: Hx Family Cardiac Disorders: Yes (HTN) Hx Family Endocrine Disorder: Yes (diabetes) Hx Family Neurologic Disorders: Yes (2 strokes) Father Living Status: Hx Family Cardiac Disorders: Yes Hx Family Respiratory Disorders: Yes Hx Family Neurologic Disorders: Yes Internal Medicine - H&P: Meds Clopidogrel [Plavix] 75 mg PO DAILY 11/08/14 [History] Ergocalciferol (VITAMIN D2) [Drisdol (50,000 Unit)] 50,000 unit PO MOTH [History] Ascorbic Acid [Vitamin C] 500 mg PO BID tablet 08/04/15 [Rx] Aspirin Enteric Coated [Aspirin EC] 81 mg PO DAILY 08/20/15 [History] Metoprolol XL (24 HR) Succ [Toprol Xl] 50 mg PO DAILY #30 tab.er.24h 10/05/16 [ Rx] Insulin Glargine,Hum.rec.anlog [Toujeo Solostar] 45 units SQ HS 06/10/16 [ History] Insulin LISPRO [HumaLOG] 18 units SQ TIDWM 06/10/16 [History] Multivit-Minerals/Folic/Ginkgo [One Daily For Women 50+ Adv Tb] 1 each PO DAILY 06/10/16 [History] Allergies venom-honey bee [bee venom (honey bee)] Allergy (Severe, Verified 06/10/16 09:16 ) Swelling of Lip/Tongue/Throat Cortisone Allergy (Mild, Verified 06/10/16 09:16) Hives Penicillins Allergy (Verified 10/02/16 19:59) See Comments NSAIDS (Non-Steroidal Anti-Inflamma Adverse Reaction (Mild, Verified 06/10/16 09 :16) UPSET STOMACH cefazolin [From Ancef] Adverse Reaction (Verified 06/10/16 09:16) Hives Qarsmpa-Bcb-Skt Reductase Inhibitor [Statins] Adverse Reaction (Verified 09:16) Muscle Pain GRAPE FLAVOR Allergy (Mild, Uncoded 06/10/16 09:16) Swelling of the Eye All Systems PM: A 10-system review of systems was performed and is negative for pertinent findings except as documented above in the HPI. - Constitutional Constitutional: as per HPI - Constitutional Vitals: Temp Pulse Resp BP Pulse Ox 97.6 F 73 17 156/79 97 10/02/16 23:36 10/02/16 23:36 10/02/16 23:36 10/02/16 23:36 10/02/16 23:36 General appearance: Present: disheveled, A&O X 3, morbidly obese, no acute distress, answers questions appropriately - Head Head exam: Present: atraumatic, normocephalic - Eye Eye exam: Present: conjuntiva pink, sclera anicteric - Respiratory Respiratory exam: Absent: respiratory distress, wheezes - Cardiovascular Cardiovascular exam: Present: RRR, +S1, +S2 - GI/Abdominal GI/Abdominal exam: Present: distended (obese), normal bowel sounds, soft, no peritoneal signs. Absent: tenderness - Extremities Exam Extremities exam: Present: pedal edema (pitting edema in b/l LE ), warm, radial pulses palpable and symetrical. Absent: calf tenderness - Neurological Exam Neurological exam: Present: alert, oriented X3, no focal deficits, strengths equal and symetr throughout. Absent: pronater drift, facial droop, speech deficit - Psychiatric Psychiatric exam: Present: normal affect, normal mood Internal Med - H&P Results - Labs CBC & Chem 7: 10/02/16 20:20 10/02/16 20:20
[2016-10-03] MEDS ORDERED: Insulin DETEMIR 100 UNIT/ML X5UNITS SQ ONE (00:59)
[2016-10-03] MEDS ORDERED: *HR* Metoprolol 5 MG/5 ML VIAL IVP PRN (01:00)
[2016-10-03] MEDS: *HR* Heparin 5,000 UNIT/ML VIAL SQ SCH ×2 (06:01→17:39)
[2016-10-03] MEDS ORDERED: *HR* Morphine 2 MG/ML SYRINGE IVP ONE (07:45)
[2016-10-03] MEDS: Insulin LISPRO 300 UNITS/3 ML VIAL SQ SCH ×7 (09:00→21:37)
[2016-10-03] MEDS: Ascorbic Acid 500 MG TABLET PO SCH ×2 (09:01→21:24)
[2016-10-03] MEDS: Aspirin Enteric Coated 81 MG Tablet PO SCH (09:01)
[2016-10-03] MEDS: Multivit/Ca/Min/Fe/FA 1 TAB TABLET PO SCH (09:01)
[2016-10-03] MEDS: Metoprolol XL (24 HR) Succ 50 MG TAB.ER.24H PO SCH (09:01)
[2016-10-03] MEDS ORDERED: Perflutren Lipid Microsphere 2 ML VIAL ONE (13:00)
--- NOTE | 2016-10-03 14:19 | Event Note ---
Date of Encounter: 10/03/16 Time of Encounter: 14:03 70/F Brief PMH : Diabetes mellitus, hypertension, coronary artery disease and chronic kidney disease History of present illness: Admitted with lower extremity weakness. Baseline: Wheelchair-bound, bed to bathroom privilege with the help of walker. He was evaluated in the emergency room for new onset of left lower limb weakness. Her ABCD 2 score was 6. This was the reason she was hospitalized. CT head was negative for any acute intracranial event. CT reported no intracranial abnormalities. Patient was hospitalized for TIA/CVA. Course in the Hospital: In last 24 hours patient did not get any worsening of her weakness in her lower extremities. Noted that TIA/CVA workup has been ordered. Noted that patient has a dynamic troponin. Cardiology consulted. Patient is a strong cardiac history. Recent echo in April 2016: EF 30% with global hypokinesis and additional variations. Patient underwent cardiac catheterization in June 2016. Also noted that patient's serum creatinine is around 2. On examination: I examined this patient along with patient's registered nurse. Examination of head, eyes, ears, nose, cervical area and neck does not show any abnormality. Examination of heart and lung is within normal limits. Abdominal examination is benign. Brief neurological examination did not reveal any CVA. Assessment and plan: TIA to rule out CVA. Elevated troponin: Etiology: Multifactorial: CKD, worsening demand on ischemic. Chronic kidney disease Plan: Cardiology for possible non-STEMI/ Neurologic consult placed by admitting team. We will continue present home medication. Home soon
[2016-10-03] MEDS: Perflutren Lipid Microsphere 1.3 ML in 0.9 % Sodium Chloride 8.7 ML IVP ONE (16:10)
--- NOTE | 2016-10-03 16:41 | Carotid Imaging Report ---
Carotid Duplex Patient Name:Eleni Bentley Order Number:[id number] Procedure Date:10/03/2016 Date:1945ge:70 yrs Gender:Female Lt BP:144 / 62 mmHg Rt.BP:144 / 62 mmHgHeart Rate: Location:[facility] Room #: 2NE20 Harvesting Manager:Johnna King RDCS Referring MD:Abril Darden MD claim processor:DO Joceline Crespo MD:Braydon Banegas MD Primary Indications:Carotid artery stenosis Risk Factors Yes/No Hypertension Yes Hypercholesterolemia Yes Diabetes Yes Hx of CVA Yes Smoker Previous Quit Hx of CAD/PTCA Yes Impressions: Findings: Right mid ICA has a severe, 60-79% stenosis. Recommendations: Risk Factor Modification, Medical Therapy, and Follow up exam 12 months. Findings Carotid Duplex: Right: The right proximal common carotid artery has a PSV of 67 cm/s and a EDV of 18 cm/s. The right mid common carotid artery has a PSV of 55 cm/s and a EDV of 12 cm/s. The right distal common carotid artery has a PSV of 54 cm/s and a EDV of 14 cm/s. There is nonstenotic plaque in the right bifurcation with a PSV of 57 cm/s and a EDV of 16 cm/s. There is irregular heterogeneous plaque. The right proximal internal carotid artery has a PSV of 70 cm/s and a EDV of 19 cm/s. There is 60-79% stenosis in the right mid internal carotid artery with a PSV of 150 cm/s and a EDV of 40 cm/s. There is irregular heterogeneous plaque. There is 60-79% stenosis in the right distal internal carotid artery with a PSV of 140 cm/s and a EDV of 41 cm/s. There is irregular homogeneous plaque. The right eca has a PSV of 111 cm/s and a EDV of 9 cm/s. The right vertebral artery has a PSV of 27 cm/s and a EDV of 5 cm/s. RIGHT MID/DISTAL SEGMENT TORTUOUS DIVING VESSEL. Left: The left proximal common carotid artery has a PSV of 64 cm/s and a EDV of 12 cm/s. There is nonstenotic plaque in the left mid common carotid artery with a PSV of 69 cm/s and a EDV of 14 cm/s. There is irregular heterogeneous plaque. The left distal common carotid artery has a PSV of 72 cm/s and a EDV of 15 cm/s. The left bifurcation has a PSV of 78 cm/s and a EDV of 16 cm/s. The left proximal internal carotid artery has a PSV of 83 cm/s and a EDV of 24 cm/s. There is nonstenotic plaque in the left mid internal carotid artery with a PSV of 86 cm/s and a EDV of 26 cm/s. There is irregular heterogeneous plaque. There is nonstenotic plaque in the left distal internal carotid artery with a PSV of 78 cm/s and a EDV of 19 cm/s. There is irregular heterogeneous plaque. The left eca has a PSV of 134 cm/s and a EDV of 10 cm/s. The left vertebral artery has a PSV of 29 cm/s and a EDV of 8 cm/s. Prior Study: Changes noted compared to prior study dated: 10/07/2015. PREV RT ICA 60-79% STILL APPEARS 60-79% PREV LEFT ICA PROX LISTED 60-79%, BUT VELOCITIES TAKEN ON A CURVE ON PREVIOUS STUDY. Carotid Results Right PSV EDV Assessment Proximal CCA 67 18 Normal Mid CCA 55 12 Normal Distal CCA 54 14 Normal Bifurcation 57 16 Non Stenotic Plaque Proximal ICA 70 19 Normal Mid ICA 150 40 60-79% stenosis Distal ICA 140 41 60-79% stenosis ECA 111 9 Normal Vertebral Artery 27 5 Normal Left PSV EDV Assessment Proximal CCA 64 12 Normal Mid CCA 69 14 Non Stenotic Plaque Distal CCA 72 15 Normal Bifurcation 78 16 Normal Proximal ICA 83 24 Normal Mid ICA 86 26 Non Stenotic Plaque Distal ICA 78 19 Non Stenotic Plaque ECA 134 10 Normal Vertebral Artery 29 8 Normal Ratio's Right ICA/CCA Ratio: 2.20 ICA/CCA Values: 150/67 Left ICA/CCA Ratio: 1.20 ICA/CCA Values: 86/72 Updated by Braydon Banegas MD on 10/03/2016 4:37:07 PM electronically signed on 10/03/2016 4:37:27 PM with status of Final
[2016-10-03] MEDS: Insulin DETEMIR 100 UNIT/ML X5UNITS SQ SCH (21:24)
[2016-10-03] MEDS: Nystatin POWDER 30 GM BOTTLE TP SCH (23:29)
[2016-10-04 02:54] LABS: Basophils % 0.4 %; Eosinophils # 0.6 K/mcL (0.0-0.6); Eosinophils % 7.4 %; Hematocrit 36.9 % (35.3-44.9); Hemoglobin 11.8 g/dL (11.5-15.4); Immature Granulocytes % 0.6 % (0-4); Lymphocytes # 1.8 K/mcL (0.6-4.6); Lymphocytes % 21.1 %; Mean Corpuscular Hemoglobin 28.7 pg (28.0-33.3); Mean Corpuscular Volume 89.8 fL (83.0-100.0); Mean Platelet Volume 11.1 fL (9.4-12.4); Monocytes # 0.7 K/mcL (0.0-1.3); Monocytes % 8.7 %; Neutrophils # 5.2 K/mcL (1.6-8.9); Platelet Count 243 K/mcL (140-400); Red Blood Count 4.11 M/mcL (3.82-4.97); Red Cell Distribution Width 14.5 % (11.5-14.5); Segmented Neutrophils % 61.8 %
[2016-10-04 03:11] LABS: Calcium 8.9 mg/dL (8.6-10.8); Chol/HDL Ratio 7.5 (0-4.9); Magnesium 1.8 mg/dL (1.6-2.6); Phosphorous 3.7 mg/dL (2.3-4.7); Potassium 4.4 mEq/L (3.5-4.5)
[2016-10-04] MEDS: *HR* Heparin 5,000 UNIT/ML VIAL SQ SCH ×2 (06:02→17:47)
[2016-10-04] MEDS: Ascorbic Acid 500 MG TABLET PO SCH ×2 (08:40→21:08)
[2016-10-04] MEDS: Metoprolol XL (24 HR) Succ 50 MG TAB.ER.24H PO SCH (08:40)
[2016-10-04] MEDS: Aspirin Enteric Coated 81 MG Tablet PO SCH (08:40)
[2016-10-04] MEDS: Multivit/Ca/Min/Fe/FA 1 TAB TABLET PO SCH (08:40)
[2016-10-04] MEDS: Perflutren Lipid Microsphere 1.3 ML in 0.9 % Sodium Chloride 8.7 ML IVP ONE (08:42)
--- NOTE | 2016-10-04 08:46 | Internal Med Progress Note ---
<Juan David Ryder - Last Filed: 10/04/16 18:30> Date of Encounter: 10/04/16 Time of Encounter: 09:30 - Assessment and plan (1) TIA (transient ischemic attack) Current Visit: Yes Status: Acute Assessment and plan: Patient symptoms improved at time of the current examination. Bilateral ultrasounds of the carotids demonstrates a 60-79% stenosis of the right carotid artery which is consistent with the left-sided weakness the patient complains of. Neurology has been consultation. MRI on hold due to interaction with AICD. We will complete a repeat CT of the brain tomorrow to determine if any lasting cerebral infarction is present. Vascular surgery has been consulted. Qualifiers: Qualified Code(s): G45.9 - Transient cerebral ischemic attack, unspecified (2) Cardiomyopathy Current Visit: No Status: Chronic Assessment and plan: Patient had echocardiogram completed demonstrating 30% ejection fraction of the left ventricle. Echocardiogram also demonstrated generalized akinesis and diastolic dysfunction Cardiology has been consultative. Cardiology opinion is that bump in troponins is secondary to AK high. We will continue to monitor cardiac symptoms. AICD is in place. Qualifiers: Cardiomyopathy type: ischemic Qualified Code(s): I25.5 - Ischemic cardiomyopathy (3) Acute kidney injury superimposed on chronic kidney disease Current Visit: Yes Status: Chronic (4) ICD (implantable cardioverter-defibrillator) in place Current Visit: No Status: Chronic (5) Diabetes mellitus Current Visit: No Status: Chronic Assessment and plan: Patient's blood glucoses. Diminished appropriately with home medications Qualifiers: Diabetes mellitus type: type 2 Diabetes mellitus complication status: with circulatory complication Diabetes mellitus skilled nursing insulin use: with intermediate teacher use Qualified Code(s): E11.59 - Type 2 diabetes mellitus with other circulatory complications; Z79.4 - intermediate teacher (current) use of insulin - Time Spent With Patient less than 15 minutes - Subjective Interval history: Patient resting comfortably in bed upon entry. She states that she is feeling much better than she was. She notes that feeling stronger and her legs although she still notes that sensation and motor function does not seem as strong as it was previously in her left leg. She denies any disorientation loss of consciousness or changes in vision. She also denies any chest pain, shortness of breath, palpitations. - Constitutional Vitals: Temp Pulse Resp BP Pulse Ox 97.9 F 74 15 144/61 97 07/03/17 07:00 10/04/16 07:00 10/04/16 07:00 10/04/16 07:00 10/04/16 08:03 General appearance: Present: disheveled, A&O X 3, morbidly obese, no acute distress, answers questions appropriately - Head Head exam: Present: atraumatic, normal inspection, normocephalic - Eye Eye exam: Present: normal appearance, PERRL, sclera anicteric Pupils: Present: normal accommodation, PERRL - Expanded Eye Exam Eyelids: bilateral: normal inspection Pupils: reactive: Bilateral - ENT ENT exam: Present: mucous membranes moist - Neck Neck exam general surgery: Present: supple - Respiratory Respiratory exam: Present: CTAB - Cardiovascular Cardiovascular exam: Present: RRR - GI/Abdominal GI/Abdominal exam: Present: soft, no peritoneal signs - Neurological Exam Neurological exam: Present: no focal deficits, strengths equal and symetr throughout Additional comments: Cranial nerves II through XII are intact grossly bilaterally. Her function is 5 out of 5 in both upper and lower extremities bilaterally. Patient expresses equal sensation in both upper and lower extremities bilaterally - Expanded Neurological Exam Patient oriented to: Present: person, place, time Cerebellar function: finger to nose: Normal, heel to perla: Normal Sensory exam: lower extremity light touch: Normal, upper extremity light touch: Normal Neuro motor strength exam: LUE: 5, RUE: 5, LLE: 5, RLE: 5 Coma Scale Eye Opening: Spontaneous Coma Scale Motor Response: Obeys Commands Coma Scale Verbal Response: Oriented Coma Scale Total: 15 - Skin Skin exam: Present: dry, excoriation Additional comments: Lower extremities skin dry and cracked. Internal Medicine: Result - Labs CBC & Chem 7: 10/04/16 02:41 10/04/16 02:41 Labs: Short CBC 10/04/16 Range/Units 02:41 WBC 8.4 (4.3-11.1) K/mcL Hgb 11.8 (11.5-15.4) g/dL Hct 36.9 (35.3-44.9) % Plt Count 243 (140-400) K/mcL Neutrophils # 5.2 (1.6-8.9) K/mcL BMP 10/04/16 02:41 Sodium 141 D Potassium 4.4 Chloride 113 H Carbon Dioxide 18 L BUN 60 H Creatinine 1.62 H Glucose 135 H Calcium 8.9 Cardiac Enzymes 10/03/16 Range/Units 09:03 Troponin I 0.13 H* (0-0.03) ng/mL Consult Discharge Plan - Plan Referrals: Ashley Herrera [Student Nurse] - 10/12/16 2:30 pm <Edward Gamboa - Last Filed: 10/04/16 19:54> Date of Encounter: 10/04/16 - Constitutional Vitals: Temp Pulse Resp BP Pulse Ox 97.9 F 71 18 118/68 97 10/04/16 07:00 10/04/16 15:00 10/04/16 15:00 10/04/16 15:00 10/04/16 08:03 Internal Medicine: Result - Labs CBC & Chem 7: 10/04/16 02:41 10/04/16 02:41 Labs: Short CBC 10/04/16 Range/Units 02:41 WBC 8.4 (4.3-11.1) K/mcL Hgb 11.8 (11.5-15.4) g/dL Hct 36.9 (35.3-44.9) % Plt Count 243 (140-400) K/mcL Neutrophils # 5.2 (1.6-8.9) K/mcL BMP 10/04/16 02:41 Sodium 141 D Potassium 4.4 Chloride 113 H Carbon Dioxide 18 L BUN 60 H Creatinine 1.62 H Glucose 135 H Calcium 8.9 - Attending Attestation I examined this patient and my medical decision-making was reviewed with the SENIOR MANAGER ASSET PROTECTION/PA/Advanced Practice Nurse/Resident Physician. I agree with the documented findings, disposition and treatment plan as described except to the extent set forth below.
[2016-10-04] MEDS: Nystatin POWDER 30 GM BOTTLE TP SCH ×3 (08:47→21:08)
[2016-10-04] MEDS: Insulin LISPRO 300 UNITS/3 ML VIAL SQ SCH ×7 (08:47→21:08)
--- NOTE | 2016-10-04 09:19 | Cardiology Consult Note ---
Date of Encounter: 10/04/16 Time of Encounter: 09:14 Assessment and Plan (1) Elevated troponin Current Visit: Yes Status: Acute Troponin 0.09, 0.12, 0.13 in setting of TENISHA on CKD with peak creatinine 2.24, now improved to 1.62. Also in setting of suspected TIA. Pt denies chest pain or worsening dyspnea from baseline. Known prior EF of 25%. Echo completed during stay shows EF 30%. [facility] with 2/2 patent bypass grafts 01/2016. No intervention warranted. No further cardiac testing warranted. Anticipate sign off once seen and evaluated by Dr. Downs. Reconsult PRN. (2) Acute kidney injury superimposed on chronic kidney disease Current Visit: Yes Status: Acute TENISHA on CKD, creatinine as high as 2.24 now improved to 1.62. Management per primary team. (3) Biventricular ICD (implantable cardioverter-defibrillator) in place Current Visit: No Status: Acute S/P BiV-ICD upgrade 06/2016. Follow with device clinic as planned. (4) CAD (coronary artery disease) Current Visit: No Status: Chronic [facility] 01/2016 severe 3VCAD, s/p CABG 2/2 patent bypass grafts. Continue ASA and BB. No statin due to intolerance. Qualifiers: Coronary Disease-Associated Artery/Lesion type: [place] artery [place] vs. transplanted heart: [place] heart Associated angina: without angina Qualified Code(s): I25.10 - Atherosclerotic heart disease of [place] coronary artery without angina pectoris (5) Cardiomyopathy Current Visit: No Status: Chronic EF 30%, reduced since 01/2016. BiV-ICD in place. Continue BB. Recommend resuming ARB. Euvolemic on exam. Qualifiers: Cardiomyopathy type: ischemic Qualified Code(s): I25.5 - Ischemic cardiomyopathy Discussion w patient/family: The assessment and plan as outlined above was discussed with the patient and/or family members who expressed understanding and agreement. All questions were answered. Thank you for involving us in the care of your patient. Please call with any questions. I will discuss all the above with Dr. Downs and make changes as necessary. History of Present Illness Consult date: 10/04/16 Requesting physician: Edward Gamboa Consult reason: elevated troponin Chief complaint: lower extremity weakness History of present illness: Ms. Bentley is a 70 year old female with PMH of DM, CAD with prior PCI, CMP s/p BiV-ICD, HTN, HLD, TIA, b/l LE diabetic foot ulcers, and morbid obesity presents to the ER for an acute onset of lower extremity weakness. Patient states at baseline she is wheelchair bound and uses a walker to go to the bathroom. She reports of being at [facility] with her family and had a difficult time lifting her lower extremities to get into the car due to which she came to the ER. She has a prior history of TIA with similar presentation. Upon arrival to the ER, she had complete resolution of her symptoms. Pt denies any chest pain or worsening dyspnea from baseline. Denies worsening lower extremity edema. Creatinine as high as 2.24 during current stay. Troponins 0.09, 0.12, 0.13. Prior CV testing: Echo 10/13/16: LVEF 30%, moderately dilated LV, severe global LV systolic dysfunction with regional variations, moderate diastolic dysfunction, mild MR. LHC 01/05/16: Severe 3 vessel CAD, EF 20-25%, S/P CABG 2/2 patent grafts. 3+MR. Past Med Surg Social Fam HX - Past Medical History Medical history: cardiomyopathy, CHF, coronary artery disease, CVA, diabetes, GERD, hyperlipidemia, hypertension, kidney stones, myocardial infarction, peripheral artery disease, renal disease, TIA Psychiatric history: depression - Past Surgical History Surgical History: appendectomy, breast surgery, carotid endarterectomy, cholecystectomy, coronary bypass (CABG), hysterectomy, pacemaker/AICD - Social History Smoking Status: Former smoker Smokeless Tobacco Status: No Alcohol use: none Drug use: none - Family History Mother Living Status: Age at : 92 Hx Family Cardiac Disorders: Yes (HTN) Hx Family Endocrine Disorder: Yes (diabetes) Hx Family Neurologic Disorders: Yes (2 strokes) Father Living Status: Age at : 78 Cause of : Acute [place] Hx Family Cardiac Disorders: Yes Hx Family Respiratory Disorders: Yes Hx Family Neurologic Disorders: Yes Medications and Allergies Clopidogrel [Plavix] 75 mg PO DAILY 11/08/14 [History] Ergocalciferol (VITAMIN D2) [Drisdol (50,000 Unit)] 50,000 unit PO QWEEK [History] Ascorbic Acid [Vitamin C] 500 mg PO BID tablet 08/04/15 [Rx] Aspirin Enteric Coated [Aspirin EC] 81 mg PO DAILY 08/20/15 [History] Metoprolol XL (24 HR) Succ [Toprol Xl] 50 mg PO DAILY #30 tab.er.24h 01/07/16 [ Rx] Insulin Glargine,Hum.rec.anlog [Toujeo Solostar] 45 units SQ HS 06/10/16 [ History] Multivit-Minerals/Folic/Ginkgo [One Daily For Women 50+ Adv Tb] 1 tab PO DAILY 06/10/16 [History] Furosemide [Lasix] 20 mg PO DAILY 10/03/16 [History] Insulin ASPART [Novolog Flexpen] 18 unit SQ TIDWM 10/03/16 [History] Losartan Potassium [Cozaar] 50 mg PO DAILY 10/03/16 [History] Allergies venom-honey bee [bee venom (honey bee)] Allergy (Severe, Verified 06/10/16 09:16 ) Swelling of Lip/Tongue/Throat Cortisone Allergy (Mild, Verified 06/10/16 09:16) Hives Penicillins Allergy (Verified 10/02/16 19:59) See Comments NSAIDS (Non-Steroidal Anti-Inflamma Adverse Reaction (Mild, Verified 06/10/16 09 :16) UPSET STOMACH cefazolin [From Ancef] Adverse Reaction (Verified 06/10/16 09:16) Hives Jntvsse-Tch-Fvt Reductase Inhibitor [Statins] Adverse Reaction (Verified 09:16) Muscle Pain GRAPE FLAVOR Allergy (Mild, Uncoded 06/10/16 09:16) Swelling of the Eye All Systems Review: A 10-system review of systems was performed and is negative for pertinent findings except as documented above in the HPI. - Constitutional Constitutional: weakness - Neurological Neurological: focal weakness Physical Examination Vital Signs, Last 4 Hours Temp Pulse Resp BP Pulse Ox 10/04/16 08:03 97 10/04/16 07:00 97.9 F 74 15 144/61 97 Vital Signs Temp Pulse Resp BP Pulse Ox 10/04/16 08:03 97 10/04/16 07:00 97.9 F 74 15 144/61 97 10/04/16 03:47 98.1 F 69 164/90 97 10/03/16 23:14 97.7 F 71 16 154/77 97 10/03/16 19:46 98.0 F 79 18 140/89 98 07/02/17 15:26 98.4 F 72 16 124/71 96 10/03/16 12:14 98.2 F 72 16 144/62 98 Intake and Output 10/03/16 10/04/16 10/04/16 23:59 07:59 15:59 Intake Total 242 / 242 480 / 480 Output Total 400 / 400 600 / 600 Balance 242 / 242 -400 / -400 -120 / -120 Intake: IV Fluids 2 / 2 Oral 240 / 240 480 / 480 Output: Urine 400 / 400 600 / 600 Other: Meal Dinner Breakfast Percent of Meal Consumed 100% 45% Weight 110.3 kg Blood Glucose* 158 141 Patient Weight 10/04/16 23:59 Weight 110.3 kg General: Conversant, No Apparent Distress HEENT: Atraumatic, Normocephaly, Mucus Membranes Moist Neck: No JVD, Normal carotid pulses Cardiac: Reg Rate and Rhythm, Normal S1 and S2, No Murmur Lungs: Normal Breath Sounds, No Wheeze, Rales, Rhonchi Neuro: Alert and responsive, No focal deficits noted Abdomen: Soft, Non-Tender Skin: No rashes noted on visualized skin Musculoskeletal: No Chest Wall Tenderness Extremities: No Clubbing, No Cyanosis, No Edema, Normal Pulses Results 10/04/16 02:41 10/04/16 02:41 Lab Results 10/03/16 10/04/16 10/04/16 09:03 02:41 02:41 WBC 8.4 Hgb 11.8 Hct 36.9 Plt Count 243 Sodium 141 D Potassium 4.4 Chloride 113 H Carbon Dioxide 18 L BUN 60 H Creatinine 1.62 H Glucose 135 H Calcium 8.9 Magnesium 1.8 Troponin I 0.13 H* Short CBC 10/04/16 Range/Units 02:41 WBC 8.4 (4.3-11.1) K/mcL Hgb 11.8 (11.5-15.4) g/dL Hct 36.9 (35.3-44.9) % Plt Count 243 (140-400) K/mcL Neutrophils # 5.2 (1.6-8.9) K/mcL BMP 10/04/16 Range/Units 02:41 Sodium 141 D (136-145) mEq/L Potassium 4.4 (3.5-4.5) mEq/L Chloride 113 H (98-109) mEq/L Carbon Dioxide 18 L (19-29) mEq/L BUN 60 H (7-20) mg/dL Creatinine 1.62 H (0.57-1.11) mg/dL Glucose 135 H (70-99) mg/dL Calcium 8.9 (8.6-10.8) mg/dL Cardiac Enzymes 10/03/16 Range/Units 09:03 Troponin I 0.13 H* (0-0.03) ng/mL Active Medications Ascorbic Acid (Vitamin C) 500 mg PO BID [facility] Stop: 04/04/17 09:01 Last Admin: 10/04/16 08:40 Dose: 500 mg Aspirin (Aspirin Ec) 81 mg PO DAILY [facility] Stop: 04/04/17 09:01 Last Admin: 10/04/16 08:40 Dose: 81 mg Clopidogrel Bisulfate (Plavix) 75 mg PO DAILY [facility] Stop: 04/04/17 09:01 Last Admin: 10/04/16 08:40 Dose: 75 mg Dextrose/Water (Dextrose 50% (Syg)) 25 ml IVP AD PRN PRN Reason: Hypoglycemia Stop: 04/03/17 22:31 Glucagon (Glucagen) 1 mg IM ONCE PRN PRN Reason: Hypoglycemia Stop: 04/03/17 22:31 Glucose (Gluctose) 15 gm PO ONCE PRN PRN Reason: Hypoglycemia Stop: 04/03/17 22:31 Glucose (Gluctose) 30 gm PO ONCE PRN PRN Reason: Hypoglycemia Stop: 04/03/17 22:31 Heparin Sodium (Porcine) (Heparin) 5,000 unit SQ Q12HCO [facility] Stop: 04/04/17 06:01 Last Admin: 10/04/16 06:02 Dose: 5,000 unit Dextrose (Dextrose 5%) 1,000 mls @ 100 mls/hr IVC .Q10H PRN PRN Reason: HYPOGLYCEMIA Stop: 04/03/17 22:31 Insulin Detemir (Levemir) 45 unit SQ HS [facility] Stop: 04/04/17 21:01 Last Admin: 10/03/16 21:24 Dose: 45 unit Insulin Human Lispro (Humalog) 0 units SQ HS [facility] PRN Reason: Protocol Stop: 04/04/17 21:01 Last Admin: 10/03/16 21:37 Dose: Not Given Insulin Human Lispro (Humalog) 0 units SQ TIDAC [facility] PRN Reason: Protocol Stop: 04/04/17 07:31 Last Admin: 10/04/16 08:47 Dose: Not Given Insulin Human Lispro (Humalog) 18 units SQ TIDWM [facility] Stop: 04/04/17 08:01 Last Admin: 10/04/16 08:47 Dose: 18 units Metoprolol Succinate (Toprol Xl) 50 mg PO DAILY [facility] Stop: 04/04/17 09:01 Last Admin: 10/04/16 08:40 Dose: 50 mg Metoprolol Tartrate (Lopressor) 5 mg IVP Q6HR PRN PRN Reason: SBP>150 Stop: 04/04/17 00:35 Multivitamins/Calcium (Thera M Plus) 1 tab PO DAILY [facility] Stop: 04/04/17 09:01 Last Admin: 10/04/16 08:40 Dose: 1 tab Naloxone HCl (Narcan) 0.4 mg IVP Q2MIN PRN PRN Reason: Opioid Reversal Stop: 04/04/17 00:31 Nystatin (Nystop) 1 appl TP TID [facility] Stop: 04/04/17 23:16 Last Admin: 10/04/16 08:47 Dose: 1 appl Ondansetron HCl (Zofran) 4 mg IVP Q6HR PRN PRN Reason: Nausea And Vomiting Stop: 04/04/17 00:31 - Imaging and Cardiology Echo: report reviewed Cardiac cath: report reviewed - EKG Interpretation EKG results cardiology: personally reviewed (Paced), other (24 hr tele AVG HR 70 , paced) Consult Discharge Plan - Plan Additional Instructions: pcp requested Referrals: Wale Lam DO [Primary Care Provider] -
--- NOTE | 2016-10-04 11:44 | Electrocardiograph Report ---
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
--- NOTE | 2016-10-04 15:05 | Neurology - Consult Note ---
Date of Encounter: 10/04/16 Time of Encounter: 15:02 Assessment and Plan (1) Acute cerebral infarction Current Visit: Yes Status: Acute Patient's neurologic examination is 5 weakness of the left upper and left lower extremity which is not completely resolved. It is my suspicion that she has indeed suffered a right cerebral infarction. She has had a carotid duplex Doppler study which reveals 60-79% stenosis of the right internal carotid artery. She has multiple risk factors including cardiomyopathy, previous cerebral infarct, diabetes mellitus, hyperlipidemia, hypertension, morbid obesity. Apparently compliance is also an issue. At this juncture the MRI scan of the brain is pending. I would like to expedite this study noted to determine timing for possible carotid endarterectomy on the right. The carotid ultrasound study does reveal extensive to 79% stenosis of the right internal carotid artery. Further recommendations will be made pending the MRI of the brain. Stroke protocol orders should be implemented. Risk factor management is paramount. History of Present Illness HPI: Ms. Bentley is a 70 year old female who is seen for neurologic consultation secondary to suspected acute right cerebral infarction. She was admitted to [facility] on 10/02/2016. She was with her , they had just finished eating at [employer]. She stated shortly thereafter she experienced weakness and inability to raise the left lower extremity. A family member had also told her that she had some changes in her speaking pattern. She also had some numbness of the left upper extremity. She denied headache denied visual changes. She feels as though the left lower extremity weakness is improved however is not completely back to normal. Upon admission to the hospital of blood pressure was 152/[address] scan of the brain revealed no acute abnormalities, MRI scan of the head is pending. Carotid duplex Doppler study reveals 60-79% stenosis of the right internal carotid artery. She also has history of cardiomyopathy with ejection fraction of 30%. Currently she is alert and oriented follows commands and answers questions appropriately she is in no acute distress. She states that she was given an aspirin in the ED at the time of admission. Already been on Plavix. Past Med Surg Social Fam HX - Past Medical History Medical history: cardiomyopathy, CHF, coronary artery disease, CVA, diabetes, GERD, hyperlipidemia, hypertension, kidney stones, myocardial infarction, peripheral artery disease, renal disease, TIA Psychiatric history: depression - Past Surgical History Surgical History: appendectomy, breast surgery, carotid endarterectomy, cholecystectomy, coronary bypass (CABG), hysterectomy, pacemaker/AICD - Social History Smoking Status: Former smoker Smokeless Tobacco Status: No Alcohol use: none Drug use: none - Family History Mother Living Status: Age at : 92 Hx Family Cardiac Disorders: Yes (HTN) Hx Family Endocrine Disorder: Yes (diabetes) Hx Family Neurologic Disorders: Yes (2 strokes) Father Living Status: Age at : 78 Cause of : Acute [place] Hx Family Cardiac Disorders: Yes Hx Family Respiratory Disorders: Yes Hx Family Neurologic Disorders: Yes Medications and Allergies Clopidogrel [Plavix] 75 mg PO DAILY 11/08/14 [History] Ergocalciferol (VITAMIN D2) [Drisdol (50,000 Unit)] 50,000 unit PO QWEEK [History] Ascorbic Acid [Vitamin C] 500 mg PO BID tablet 08/04/15 [Rx] Aspirin Enteric Coated [Aspirin EC] 81 mg PO DAILY 08/20/15 [History] Metoprolol XL (24 HR) Succ [Toprol Xl] 50 mg PO DAILY #30 tab.er.24h 01/07/16 [ Rx] Insulin Glargine,Hum.rec.anlog [Toujeo Solostar] 45 units SQ HS 06/10/16 [ History] Multivit-Minerals/Folic/Ginkgo [One Daily For Women 50+ Adv Tb] 1 tab PO DAILY 06/10/16 [History] Furosemide [Lasix] 20 mg PO DAILY 10/03/16 [History] Insulin ASPART [Novolog Flexpen] 18 unit SQ TIDWM 10/03/16 [History] Losartan Potassium [Cozaar] 50 mg PO DAILY 10/03/16 [History] Allergies venom-honey bee [bee venom (honey bee)] Allergy (Severe, Verified 06/10/16 09:16 ) Swelling of Lip/Tongue/Throat Cortisone Allergy (Mild, Verified 06/10/16 09:16) Hives Penicillins Allergy (Verified 10/02/16 19:59) See Comments NSAIDS (Non-Steroidal Anti-Inflamma Adverse Reaction (Mild, Verified 06/10/16 09 :16) UPSET STOMACH cefazolin [From Ancef] Adverse Reaction (Verified 06/10/16 09:16) Hives Mibbekr-Dqw-Qnl Reductase Inhibitor [Statins] Adverse Reaction (Verified 09:16) Muscle Pain GRAPE FLAVOR Allergy (Mild, Uncoded 06/10/16 09:16) Swelling of the Eye All Systems: A 10-system review of systems was performed and is negative for pertinent findings except as documented above in the HPI. Review of Systems: Temporal review of systems is consistent with a history of present illness and is otherwise negative. Physical Examination - Vital Signs Vital Signs: Initial Vital Signs Temp Pulse Resp BP Pulse Ox 97.9 F 76 18 152/73 100 10/02/16 19:54 10/02/16 19:54 10/02/16 19:54 10/02/16 19:54 10/02/16 19:54 - Exam Exam: Neurologic examination finds the following: Cerebral functions-she is alert and oriented to person place and time, follows commands and answers questions appropriately.No agnosia, aphasia, or apraxia. Cranial nerve function-pupils equal and reactive to light and accommodation, extraocular movements intact, sensoryis intact, mastication is intact. Speech is not dysarthric. There is no facial weakness. Hearing is intact symmetrically. Soft palate elevates bilaterally upon phonation. Gag reflex is intact. Tongue protrudes midline. Motor exam-was 4/5 strength of the left upper extremity and left lower extremity. She has slightly decreased tone of the left lower extremity. Right upper and right lower extremity have normal strength. No involuntary movements are identified, no atrophy is present. Sensory exam-there is left hemihypoesthesia in addition to a sensory gradient distal to proximal bilaterally. Deep tendon reflexes-diminished throughout. No long track signs are identified. No Ankle clonus identified. Results - Laboratory Findings CBC and BMP: 10/04/16 02:41 10/04/16 02:41 Abnormal lab findings: Abnormal lab results VBG pO2 58 mmHg (25-40) H 10/02/16 20:20 Chloride 113 mEq/L (98-109) H 10/04/16 02:41 Carbon Dioxide 18 mEq/L (19-29) L 10/04/16 02:41 BUN 60 mg/dL (7-20) H 10/04/16 02:41 Creatinine 1.62 mg/dL (0.57-1.11) H 10/04/16 02:41 Est GFR ( Amer) 38 (> 60) L 10/04/16 02:41 Est GFR (Non-Af Amer) 32 (> 60) L 10/04/16 02:41 BUN/Creatinine Ratio 37 (6-26) H 10/04/16 02:41 Glucose 135 mg/dL (70-99) H 10/04/16 02:41 POC Glucose 158 (58-89) H 10/03/16 20:34 Calculated Osmolality 311 (280-300) H 10/04/16 02:41 Alkaline Phosphatase 159 Units/L (38-126) H 10/02/16 20:20 Troponin I 0.13 ng/mL (0-0.03) H* 10/03/16 09:03 B-Natriuretic Peptide 347 pg/mL (0-100) H 10/02/16 20:20 Albumin 2.9 g/dL (3.5-5.0) L 10/02/16 20:20 Globulin 5.0 g/dL (2.4-3.5) H 10/02/16 20:20 Albumin/Globulin Ratio 0.6 (1.1-2.2) L 10/02/16 20:20 Triglycerides 374 mg/dL (< 150) H 10/04/16 02:41 VLDL Cholesterol, Calc 75 mg/dL (< 31) H 10/04/16 02:41 HDL Cholesterol 25 mg/dL (40-59) L 10/04/16 02:41 Cholesterol/HDL Ratio 7.5 (0-4.9) H 10/04/16 02:41 Urine Clarity Cloudy (Clear) A 10/02/16 21:40 Urine Protein 100 mg/dL (Neg-Trace) H 10/02/16 21:40 Urine Glucose (UA) >=1000 mg/dL (Normal) H 10/02/16 21:40 Ur Squamous Epith Cells Many per lpf (None-Few) H 10/02/16 21:40 Consult Discharge Plan - Plan Referrals: Ashley Herrera [Student Nurse] - 10/12/16 2:30 pm
--- NOTE | 2016-10-04 20:22 | Vascular/Endovasc Consult Note ---
Date of Encounter: 10/04/16 Time of Encounter: 20:19 Assessment and Plan (1) Acute kidney injury superimposed on chronic kidney disease Current Visit: Yes Status: Chronic Patient's renal status is being monitored. Potential future need for contrast to further clarify her carotid system will require pre-angiographic prophylactic agents of IV fluid and Mucomyst. (2) Hyperglycemia Current Visit: Yes Status: Acute Chronic hyperglycemia with poor blood sugar control. Recent hemoglobin A1c is greater than 10. (3) TIA (transient ischemic attack) Current Visit: Yes Status: Acute Patient presents with left lower extremity weakness and left hand paresthesias as well as speech disturbance that occurred approximate 48 hours ago. The symptoms appear to have resolved. She has a known history of left hemispheric stroke dating back 2 years. She has an abnormal carotid duplex scan though the degree of stenosis is not severe with a peak systolic velocity of 150 cm/s. This would place the stenosis in the lower range of the 60-79%. However due to her overall risk factor profile I believe she would be best served by an elective carotid angiogram to better study her cerebrovascular system. However at this time angiography is not mandatory and can be deferred until she is medically optimized. Should she remain hospitalized the angiogram could be performed as early as later this week such as either or Tuesday. Qualifiers: Transient cerebral ischemia type: carotid artery syndrome (hemispheric) Qualified Code(s): G45.1 - Carotid artery syndrome (hemispheric) (4) Hypertension Current Visit: Yes Status: Chronic Qualifiers: Hypertension type: essential hypertension Qualified Code(s): I10 - Essential (primary) hypertension (5) Morbid obesity with BMI of 40.0-44.9, adult Current Visit: Yes Status: Chronic Patient has chronic morbid obesity. (6) ICD (implantable cardioverter-defibrillator) in place Current Visit: No Status: Chronic Patient's AICD is recognized and potential MRI of the brain will be postponed until Tuesday so that the AICD can be appropriately controlled and monitored with the effect of the electromagnetic field from the MRI. - History of Present Illness Consult date: 10/04/16 Consult reason: TIA/abnormal carotid duplex scan Chief complaint: Weakness History of present illness: Ms. Bentley is a 70 year old female Was admitted this past Tuesday afternoon when she had a persistent symptom of generalized weakness. She had difficulties lifting her left leg up into the car. In addition she had slurred speech that was noted by other family members and friends. The patient also complained of numbness in her left hand. The patient underwent a carotid duplex scan yesterday which was Tuesday which demonstrated a 60-79% right internal carotid artery stenosis. The peak systolic velocity is 150 cm/s and end-diastolic was 40 cm/s. The patient states that she is feeling better. Her left-sided weakness is essentially resolved. It should be noted that the patient is status post a left hemispheric stroke in October 2014. I'd seen the patient in consultation and performed a carotid artery angiogram area and this demonstrated a critical left internal carotid artery stenosis and she underwent a left carotid endarterectomy in November 2014. At that time she had nonhemodynamically significant stenosis of the right internal carotid artery and I have reviewed those images prior to my consultation today. She went on to have issues with poor wound healing. I then performed an angiogram of the lower extremities and performed a left peroneal artery balloon angioplasty in July 2015. She has gone on to have what he had intervention bilaterally. The patient has multiple risk factors for vascular disease including diabetes and hypertension and hyperlipidemia. She is a former tobacco user. She has a known cardiomyopathy as well as obesity and renal insufficiency with chronic kidney disease. She is status post previous myocardial infarction and is undergone open heart bypass grafting and placement of an AICD. I had last seen the patient in August 2015. She did not attend further follow-up appointments as recommended. Past Med Surg Social Fam HX - Past Medical History Medical history: cardiomyopathy, CHF, coronary artery disease, CVA, diabetes, GERD, hyperlipidemia, hypertension, kidney stones, myocardial infarction, peripheral artery disease, renal disease, TIA Psychiatric history: depression - Past Surgical History Surgical History: appendectomy, breast surgery, carotid endarterectomy (Left carotid endarterectomy in November 2014), cholecystectomy, coronary bypass (CABG) , hysterectomy, pacemaker/AICD, LE vascular intervention (Status post left peroneal artery balloon angioplasty July 2015) - Social History Smoking Status: Former smoker Smokeless Tobacco Status: No Alcohol use: none Drug use: none - Family History Mother Living Status: Age at : 92 Hx Family Cardiac Disorders: Yes (HTN) Hx Family Endocrine Disorder: Yes (diabetes) Hx Family Neurologic Disorders: Yes (2 strokes) Father Living Status: Age at : 78 Cause of : Acute [place] Hx Family Cardiac Disorders: Yes Hx Family Respiratory Disorders: Yes Hx Family Neurologic Disorders: Yes Medications and Allergies Clopidogrel [Plavix] 75 mg PO DAILY 11/08/14 [History] Ergocalciferol (VITAMIN D2) [Drisdol (50,000 Unit)] 50,000 unit PO QWEEK [History] Ascorbic Acid [Vitamin C] 500 mg PO BID tablet 08/04/15 [Rx] Aspirin Enteric Coated [Aspirin EC] 81 mg PO DAILY 08/20/15 [History] Metoprolol XL (24 HR) Succ [Toprol Xl] 50 mg PO DAILY #30 tab.er.24h 01/07/16 [ Rx] Insulin Glargine,Hum.rec.anlog [Toujeo Solostar] 45 units SQ HS 06/10/16 [ History] Multivit-Minerals/Folic/Ginkgo [One Daily For Women 50+ Adv Tb] 1 tab PO DAILY 06/10/16 [History] Furosemide [Lasix] 20 mg PO DAILY 10/03/16 [History] Insulin ASPART [Novolog Flexpen] 18 unit SQ TIDWM 10/03/16 [History] Losartan Potassium [Cozaar] 50 mg PO DAILY 10/03/16 [History] Allergies venom-honey bee [bee venom (honey bee)] Allergy (Severe, Verified 06/10/16 09:16 ) Swelling of Lip/Tongue/Throat Cortisone Allergy (Mild, Verified 06/10/16 09:16) Hives Penicillins Allergy (Verified 10/02/16 19:59) See Comments NSAIDS (Non-Steroidal Anti-Inflamma Adverse Reaction (Mild, Verified 06/10/16 09 :16) UPSET STOMACH cefazolin [From Ancef] Adverse Reaction (Verified 06/10/16 09:16) Hives Nxbfijf-Hgg-Mma Reductase Inhibitor [Statins] Adverse Reaction (Verified 09:16) Muscle Pain GRAPE FLAVOR Allergy (Mild, Uncoded 06/10/16 09:16) Swelling of the Eye All Systems Review: A 10-system review of systems was performed and is negative for pertinent findings except as documented above in the HPI. Exam General: Present: Conversant, No Apparent Distress, Other (Obese. The patient looks older than her stated age.) HEENT: Present: Atraumatic, Normocephaly, Trachea midline Neck: Absent: JVD, Lymphadenopathy, Left Carotid bruit, Right Carotid bruit, Midline deformity, Tracheal deviation Cardiac: Present: Reg Rate and Rhythm, Normal S1 and S2, No Murmur Lungs: Present: Normal Breath Sounds, No Wheeze, Rales, Rhonchi Neuro: Present: Alert and responsive, Other (Patient has a chronic speech disturbance. She has mild left facial weakness.) Abdomen: Present: Soft, Non-tender, Other (Obese. 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 She is status post amputation of the distal phalanx of right first toe.) Skin: Present: Wound/ulcer(s) (Patient has pretibial ulcers bilaterally. The patient has a deep crack-like recess at the lateral aspect of the left second toe.), Other (Patient's lower extremity skin is very dry and cracked.) Consult Discharge Plan - Plan Referrals: Ashley Herrera [Student Nurse] - 10/12/16 2:30 pm
[2016-10-04] MEDS: Insulin DETEMIR 100 UNIT/ML X5UNITS SQ SCH (21:08)
[2016-10-05] MEDS: *HR* Heparin 5,000 UNIT/ML VIAL SQ SCH ×2 (05:42→18:22)
[2016-10-05 06:18] LABS: Basophils % 0.4 %; Eosinophils # 0.5 K/mcL (0.0-0.6); Eosinophils % 6.7 %; Hematocrit 36.2 % (35.3-44.9); Hemoglobin 11.2 g/dL (11.5-15.4); Immature Granulocytes % 0.9 % (0-4); Lymphocytes # 1.5 K/mcL (0.6-4.6); Lymphocytes % 19.8 %; Mean Corpuscular HGB Conc 30.9 g/dL (31.6-35.5); Mean Corpuscular Hemoglobin 27.7 pg (28.0-33.3); Mean Corpuscular Volume 89.6 fL (83.0-100.0); Mean Platelet Volume 10.9 fL (9.4-12.4); Monocytes # 0.8 K/mcL (0.0-1.3); Monocytes % 10.2 %; Neutrophils # 4.7 K/mcL (1.6-8.9); Platelet Count 249 K/mcL (140-400); Red Blood Count 4.04 M/mcL (3.82-4.97); Red Cell Distribution Width 14.4 % (11.5-14.5)
[2016-10-05 06:27] LABS: Calcium 8.9 mg/dL (8.6-10.8); Potassium 4.4 mEq/L (3.5-4.5)
[2016-10-05] MEDS: Ascorbic Acid 500 MG TABLET PO SCH ×2 (07:43→21:10)
[2016-10-05] MEDS: Aspirin Enteric Coated 81 MG Tablet PO SCH (07:43)
[2016-10-05] MEDS: Insulin LISPRO 300 UNITS/3 ML VIAL SQ SCH ×7 (07:43→22:57)
[2016-10-05] MEDS: Multivit/Ca/Min/Fe/FA 1 TAB TABLET PO SCH (07:43)
[2016-10-05] MEDS: Metoprolol XL (24 HR) Succ 50 MG TAB.ER.24H PO SCH (07:43)
[2016-10-05] MEDS: Nystatin POWDER 30 GM BOTTLE TP SCH ×3 (07:44→21:10)
--- NOTE | 2016-10-05 13:17 | Internal Med Progress Note ---
Date of Encounter: 10/05/16 Time of Encounter: 13:15 - Assessment and plan (1) TIA (transient ischemic attack) Current Visit: Yes Status: Acute Assessment and plan: Repeat CT scan of the head done today does not show any acute intracranial abnormality. Treating patient for possible TIAs with left-sided weakness. On aspirin, Plavix. Not on statin due to prior allergic reaction. Neurology consulted in the care of patient. Strongly suspect acute cerebral infarction in the right side given the persistence of patient's symptoms. Carotid Dopplers show 60-79% stenosis of the right internal carotid artery. Vascular surgery consulted. Recommend angiogram after prepping the patient due to renal dysfunction. Continue PTOT. PT and OT recommends placement to skilled rehabilitation. carry in worker following. Moderate risk for complications. Qualifiers: Transient cerebral ischemia type: carotid artery syndrome (hemispheric) Qualified Code(s): G45.1 - Carotid artery syndrome (hemispheric) (2) Acute kidney injury superimposed on chronic kidney disease Current Visit: Yes Status: Chronic Assessment and plan: Function remained stable. Creatinine is 1.74 today. We will follow closely. We will prep the patient prior to angiogram with Mucomyst and IV fluids. (3) Biventricular ICD (implantable cardioverter-defibrillator) in place Current Visit: No Status: Chronic Assessment and plan: Unable to do MRI of the brain due to presence of ICD. (4) Cardiomyopathy Current Visit: No Status: Chronic Assessment and plan: On aspirin, Plavix and beta maggie. Qualifiers: Cardiomyopathy type: ischemic Qualified Code(s): I25.5 - Ischemic cardiomyopathy (5) Diabetes mellitus Current Visit: Yes Status: Chronic Assessment and plan: Blood sugars remain slightly elevated. We will further increase long-acting insulin dosage. Qualifiers: Diabetes mellitus type: type 2 Diabetes mellitus complication status: with circulatory complication Diabetes mellitus group home insulin use: with intermediate school teacher use Qualified Code(s): E11.59 - Type 2 diabetes mellitus with other circulatory complications; Z79.4 - USP (current) use of insulin - Subjective Interval history: Patient is awake and alert. Denies any complaints at this time. Strength and sensation continue to improve in her legs. No speech abnormalities. No other new complaints at this time. - Constitutional Vitals: Temp Pulse Resp BP Pulse Ox 98.0 F 72 16 152/82 97 10/05/16 07:10 10/05/16 07:10 10/05/16 07:10 10/05/16 07:10 10/05/16 07:10 General appearance: Present: disheveled, A&O X 3, morbidly obese, no acute distress, answers questions appropriately - Neck Neck exam general surgery: Present: supple, trachea midline. Absent: lymphadenopathy - Cardiovascular Cardiovascular exam: Present: RRR, +S1, +S2. Absent: diastolic murmur, gallop, rubs, systolic murmur - GI/Abdominal GI/Abdominal exam: Present: normal bowel sounds, soft, no peritoneal signs. Absent: distended, tenderness - Extremities Exam Extremities exam: Present: warm, radial pulses palpable and symetrical. Absent : calf tenderness, cyanotic, pedal edema - Neurological Exam Neurological exam: Present: alert, CN II-XII intact, oriented X3, no focal deficits, strengths equal and symetr throughout. Absent: facial droop, speech deficit - Skin Skin exam: Present: dry, intact Internal Medicine: Result - Labs CBC & Chem 7: 10/05/16 05:50 10/05/16 05:50 Labs: Short CBC 10/05/16 Range/Units 05:50 WBC 7.6 (4.3-11.1) K/mcL Hgb 11.2 L (11.5-15.4) g/dL Hct 36.2 (35.3-44.9) % Plt Count 249 (140-400) K/mcL Neutrophils # 4.7 (1.6-8.9) K/mcL BMP 10/05/16 05:50 Sodium 139 Potassium 4.4 Chloride 110 H Carbon Dioxide 22 BUN 50 H D Creatinine 1.74 H Glucose 258 H Calcium 8.9 - Impressions Impressions Head CT 10/05/16 08:00 IMPRESSION: No evidence of acute intracranial abnormality. D/ / 10/05/2016 11:34:44 Hermilo Bob MD / vitor Interpreting Provider: Hermilo Bob MD Consult Discharge Plan - Plan Referrals: Ashley Herrera [Student Nurse] - 10/12/16 2:30 pm
[2016-10-05] MEDS: Insulin DETEMIR 100 UNIT/ML X5UNITS SQ SCH (22:57)
[2016-10-06] MEDS ORDERED: Melatonin 3 MG TABLET PO PRN (01:59)
[2016-10-06 05:48] LABS: Basophils % 0.4 %; Eosinophils # 0.5 K/mcL (0.0-0.6); Eosinophils % 6.6 %; Hematocrit 35.7 % (35.3-44.9); Hemoglobin 11.2 g/dL (11.5-15.4); Immature Granulocytes % 0.7 % (0-4); Lymphocytes # 1.7 K/mcL (0.6-4.6); Lymphocytes % 21.1 %; Mean Corpuscular HGB Conc 31.4 g/dL (31.6-35.5); Mean Corpuscular Hemoglobin 28.1 pg (28.0-33.3); Mean Corpuscular Volume 89.7 fL (83.0-100.0); Monocytes # 0.9 K/mcL (0.0-1.3); Monocytes % 10.7 %; Neutrophils # 4.9 K/mcL (1.6-8.9); Platelet Count 255 K/mcL (140-400); Red Blood Count 3.98 M/mcL (3.82-4.97); Red Cell Distribution Width 14.4 % (11.5-14.5); Segmented Neutrophils % 60.5 %
[2016-10-06 06:00] LABS: Calcium 8.8 mg/dL (8.6-10.8); Potassium 4.1 mEq/L (3.5-4.5)
[2016-10-06] MEDS: *HR* Heparin 5,000 UNIT/ML VIAL SQ SCH ×2 (06:31→18:13)
[2016-10-06] MEDS: Insulin LISPRO 300 UNITS/3 ML VIAL SQ SCH ×7 (08:41→21:04)
[2016-10-06] MEDS: Insulin DETEMIR 100 UNIT/ML X5UNITS SQ SCH ×2 (08:41→21:04)
[2016-10-06] MEDS: Nystatin POWDER 30 GM BOTTLE TP SCH ×3 (08:42→21:04)
[2016-10-06] MEDS: Metoprolol XL (24 HR) Succ 50 MG TAB.ER.24H PO SCH (08:42)
[2016-10-06] MEDS: Multivit/Ca/Min/Fe/FA 1 TAB TABLET PO SCH (08:42)
[2016-10-06] MEDS: Ascorbic Acid 500 MG TABLET PO SCH ×2 (08:42→21:03)
[2016-10-06] MEDS: Aspirin Enteric Coated 81 MG Tablet PO SCH (08:42)
--- NOTE | 2016-10-06 12:42 | Internal Med Progress Note ---
Date of Encounter: 10/06/16 Time of Encounter: 09:15 - Assessment and plan (1) TIA (transient ischemic attack) Current Visit: Yes Status: Acute Assessment and plan: Awaiting MRI. Scheduled for tomorrow. Discussed with vascular surgery. Plan for angiogram either tomorrow or on Tuesday. We will prep patient to prevent contrast-induced nephropathy. Moderate risk for complications. Continue aspirin and Plavix. Not on statin due to adverse reaction. Qualifiers: Transient cerebral ischemia type: carotid artery syndrome (hemispheric) Qualified Code(s): G45.1 - Carotid artery syndrome (hemispheric) (2) Acute kidney injury superimposed on chronic kidney disease Current Visit: Yes Status: Chronic Assessment and plan: Renal function improving. Creatinine currently is 1.33. At risk for contrast- induced nephropathy. We will prepare for angiogram with Mucomyst prior to procedure. (3) Biventricular ICD (implantable cardioverter-defibrillator) in place Current Visit: No Status: Chronic Assessment and plan: MRI of the brain has been ordered and awaiting switching of the pacemaker to a MRI safe mode (4) Cardiomyopathy Current Visit: Yes Status: Chronic Assessment and plan: Will need evaluation for ischemic causes as outpatient. We will arrange for follow-up with cardiology. Currently on aspirin and Plavix. And beta maggie Qualifiers: Cardiomyopathy type: ischemic Qualified Code(s): I25.5 - Ischemic cardiomyopathy (5) Diabetes mellitus Current Visit: Yes Status: Chronic Assessment and plan: Improved blood sugars. We will continue to monitor and adjust insulin regimen accordingly. 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 No new complaints at this time. Strength improving the left upper and lower extremity. Still has some residual weakness especially in her hand. - Constitutional Vitals: Temp Pulse Resp BP Pulse Ox 98 F 68 18 137/77 95 10/06/16 11:53 10/06/16 11:53 10/06/16 11:53 10/06/16 11:53 10/06/16 11:53 General appearance: Present: A&O X 3, morbidly obese, no acute distress, answers questions appropriately - Respiratory Respiratory exam: Present: CTAB. Absent: accessory muscle use, rales, rhonchi, wheezes - Cardiovascular Cardiovascular exam: Present: RRR, +S1, +S2. Absent: diastolic murmur, gallop, rubs, systolic murmur - GI/Abdominal GI/Abdominal exam: Present: normal bowel sounds, soft, no peritoneal signs. Absent: distended, tenderness - Extremities Exam Extremities exam: Present: warm, radial pulses palpable and symetrical. Absent : calf tenderness, cyanotic, pedal edema - Neurological Exam Neurological exam: Present: alert, oriented X3, no focal deficits. Absent: facial droop, speech deficit Additional comments: Slight decrease in strength in her left hand. Otherwise strength normal in all 4 extremities. - Skin Skin exam: Present: dry, intact Internal Medicine: Result - Labs CBC & Chem 7: 10/06/16 05:27 10/06/16 05:27 Labs: Short CBC 10/06/16 Range/Units 05:27 WBC 8.2 (4.3-11.1) K/mcL Hgb 11.2 L (11.5-15.4) g/dL Hct 35.7 (35.3-44.9) % Plt Count 255 (140-400) K/mcL Neutrophils # 4.9 (1.6-8.9) K/mcL BMP 10/06/16 05:27 Sodium 139 Potassium 4.1 Chloride 112 H Carbon Dioxide 21 BUN 42 H Creatinine 1.33 H Glucose 148 H Calcium 8.8 - Impressions Impressions Head CT 10/05/16 08:00 IMPRESSION: No evidence of acute intracranial abnormality. D/ / 10/05/2016 11:34:44 Hermilo Bob MD / vitor Interpreting Provider: Hermilo Bob MD Consult Discharge Plan - Plan Referrals: Ashley Herrera [Student Nurse] - 10/12/16 2:30 pm
[2016-10-06] MEDS ORDERED: 0.9 % Sodium Chloride 1,000 ML IVC SCH (15:00)
[2016-10-06 16:09] LABS: Prothrombin Time 10.4 Seconds (9.4-12.1)
[2016-10-06 16:11] LABS: Activated Partial Thrombo Time 29.6 Seconds (26.0-36.0)
--- NOTE | 2016-10-06 17:33 | Vascular/Endovas Progress Note ---
Date of Encounter: 10/06/16 Time of Encounter: 17:30 - Assessment and plan (1) Acute kidney injury superimposed on chronic kidney disease Current Visit: Yes Status: Chronic The patient's BUN/creatinine creatinine has significantly improved over the past 48 hours. It would appear this is an appropriate time to proceed with direct angiography. Therefore we'll plan on carotid angiogram tomorrow with prophylactic fluid and Mucomyst per the hospitalist service. (2) Hyperglycemia Current Visit: Yes Status: Acute Chronic hyperglycemia with poor blood sugar control. Recent hemoglobin A1c is greater than 10. (3) TIA (transient ischemic attack) Current Visit: Yes Status: Acute Patient has been neurologically stable over the past 36-48 hours. As mentioned above we'll plan for carotid artery angiogram tomorrow. Qualifiers: Transient cerebral ischemia type: carotid artery syndrome (hemispheric) Qualified Code(s): G45.1 - Carotid artery syndrome (hemispheric) (4) Hypertension Current Visit: Yes Status: Chronic Qualifiers: Hypertension type: essential hypertension Qualified Code(s): I10 - Essential (primary) hypertension (5) Morbid obesity with BMI of 40.0-44.9, adult Current Visit: Yes Status: Chronic Patient has chronic morbid obesity. (6) ICD (implantable cardioverter-defibrillator) in place Current Visit: No Status: Chronic Patient's AICD is recognized and potential MRI of the brain will be postponed until Tuesday so that the AICD can be appropriately controlled and monitored with the effect of the electromagnetic field from the MRI. - Subjective Interval history: The patient has no complaints. She has no recurrent neurologic symptoms. The patient states she had an uneventful day yesterday. Vital Signs, Last 4 Hours Temp Pulse Resp BP Pulse Ox 10/06/16 16:26 97.7 F 68 16 155/81 97 - Physical Examination General: Present: Conversant, No Apparent Distress, Well developed, Well nourished HEENT: Present: Normocephaly Neuro: Present: Alert and responsive, No focal deficits noted Results 10/06/16 05:27 10/06/16 05:27 Lab Results, Last 24 hours 10/06/16 15:54 INR 1.0 APTT 29.6 Consult Discharge Plan - Plan Referrals: Ashley Herrera [Student Nurse] - 10/12/16 2:30 pm
[2016-10-06] MEDS: *HR* Acetylcysteine 20% 600 MG/3 ML ORAL SYRINGE PO SCH ×2 (18:34→21:21)
[2016-10-06] MEDS: Acetaminophen 325 MG TABLET PO PRN (21:03)
[2016-10-07] MEDS: *HR* Acetylcysteine 20% 600 MG/3 ML ORAL SYRINGE PO SCH ×2 (00:02→08:55)
[2016-10-07 05:56] LABS: Calcium 8.6 mg/dL (8.6-10.8); Potassium 4.6 mEq/L (3.5-4.5)
[2016-10-07] MEDS: 0.9 % Sodium Chloride 1,000 ML IVC SCH ×2 (05:56→22:50)
[2016-10-07] MEDS: *HR* Heparin 5,000 UNIT/ML VIAL SQ SCH ×2 (05:57→18:56)
[2016-10-07] MEDS: Insulin DETEMIR 100 UNIT/ML X5UNITS SQ SCH ×2 (08:40→23:22)
[2016-10-07] MEDS: Ascorbic Acid 500 MG TABLET PO SCH ×2 (08:40→22:50)
[2016-10-07] MEDS: Metoprolol XL (24 HR) Succ 50 MG TAB.ER.24H PO SCH (08:40)
[2016-10-07] MEDS: Multivit/Ca/Min/Fe/FA 1 TAB TABLET PO SCH (08:40)
[2016-10-07] MEDS: Aspirin Enteric Coated 81 MG Tablet PO SCH (08:40)
[2016-10-07] MEDS: Insulin LISPRO 300 UNITS/3 ML VIAL SQ SCH ×7 (08:52→23:22)
--- NOTE | 2016-10-07 09:53 | Pre-Sedation Evaluation ---
Pre-sedation evaluation - Pre-sedation checklist Procedure: UPGRADE TO BIV ICD Recent Vitals: Last Vital Signs Temp 97.2 F L 10/07/16 07:18 Pulse 76 10/07/16 07:18 Resp 14 10/07/16 07:18 BP 135/76 10/07/16 07:18 Pulse Ox 97 10/07/16 07:18 H&P (including ROS) documented in medical record: Yes Previous reaction to sedatives/anesthetics: No Dietary Status: NPO after Midnight Dentition: dentures removed Possible difficult airway: Yes ASA Classification *see protocol: CLASS III-Severe systemic disease Plan of Care: Pt appropriate candidate for procedure/moderate/conscious sedation , Risks/benefits of procedure/sedation discussed w/ patient/family
[2016-10-07] MEDS ORDERED: *HR* Heparin 10,000 UNIT/10 ML VIAL ONE (16:33)
[2016-10-07] MEDS ORDERED: 0.9 % Sodium Chloride 1,000 ML ONE (16:34)
[2016-10-07] MEDS ORDERED: Heparin 1,000 UNITS/500 mL NS 500 ML ONE (16:34)
[2016-10-07] MEDS ORDERED: *HR* FentaNYL (PF) 100 MCG/2 ML VIAL ONE (16:54)
[2016-10-07] MEDS ORDERED: *HR* Midazolam HCl 2 MG/2 ML VIAL ONE (16:55)
--- NOTE | 2016-10-07 17:18 | Internal Med Progress Note ---
Date of Encounter: 10/07/16 Time of Encounter: 09:15 - Assessment and plan (1) TIA (transient ischemic attack) Current Visit: Yes Status: Acute Assessment and plan: MRI of the brain plan for later today. Patient is also to have carotid angiogram. Continue Plavix and statin. Continue physical therapy. Moderate risk for complications. Qualifiers: Transient cerebral ischemia type: carotid artery syndrome (hemispheric) Qualified Code(s): G45.1 - Carotid artery syndrome (hemispheric) (2) Acute kidney injury superimposed on chronic kidney disease Current Visit: Yes Status: Chronic Assessment and plan: Renal function slightly worse today but around her baseline. Receiving IV fluids and Mucomyst in anticipation for carotid angiogram. (3) Biventricular ICD (implantable cardioverter-defibrillator) in place Current Visit: No Status: Chronic (4) Cardiomyopathy Current Visit: Yes Status: Chronic Assessment and plan: Being treated medically with aspirin, Plavix, statin and beta maggie. No WILBERTO inhibitor due to renal dysfunction and planned carotid angiogram. Qualifiers: Cardiomyopathy type: ischemic Qualified Code(s): I25.5 - Ischemic cardiomyopathy (5) Diabetes mellitus Current Visit: Yes Status: Chronic Assessment and plan: Blood sugars remain elevated. We will further increase long-acting insulin dosage. 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 No new complaints at this time. Strength remains good in both her upper and lower extremities except for her left hand where She still feels a bit weak. - Constitutional Vitals: Temp Pulse Resp BP Pulse Ox 97.2 F L 76 14 135/76 97 10/07/16 07:18 10/07/16 07:18 10/07/16 07:18 10/07/16 07:18 10/07/16 07:18 General appearance: Present: A&O X 3, morbidly obese, no acute distress, answers questions appropriately - Respiratory Respiratory exam: Present: CTAB. Absent: accessory muscle use, rales, rhonchi, wheezes - Cardiovascular Cardiovascular exam: Present: RRR, +S1, +S2. Absent: diastolic murmur, gallop, rubs, systolic murmur - GI/Abdominal GI/Abdominal exam: Present: normal bowel sounds, soft, no peritoneal signs. Absent: distended, tenderness - Extremities Exam Extremities exam: Present: warm, radial pulses palpable and symetrical. Absent : calf tenderness, cyanotic, pedal edema - Neurological Exam Neurological exam: Present: alert, CN II-XII intact, oriented X3, no focal deficits, strengths equal and symetr throughout. Absent: facial droop, speech deficit Internal Medicine: Result - Labs CBC & Chem 7: 10/06/16 05:27 10/07/16 05:33 Labs: BMP 10/07/16 05:33 Sodium 139 Potassium 4.6 H Chloride 111 H Carbon Dioxide 19 BUN 39 H Creatinine 1.46 H Glucose 218 H Calcium 8.6 - ABG Interpretation ABG results: PT/INR, D-dimer PT 10.4 Seconds (9.4-12.1) 10/06/16 15:54 - Impressions Impressions Brain MRI 10/07/16 11:05 IMPRESSION: No acute intracranial abnormality. 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 Mild parenchymal volume loss. Mild chronic microvascular disease. D/ / Dyllan Flor MD / Dyllan Flor MD Interpreting Provider: Dyllan Flor MD Consult Discharge Plan - Plan Referrals: Ashley Herrera [Student Nurse] - 10/12/16 2:30 pm
[2016-10-07] MEDS ORDERED: *HR* HYDROcodone/Acet 5/325 mg TABLET PO PRN (17:42)
[2016-10-07] MEDS ORDERED: *HR* Morphine 2 MG/ML SYRINGE IVP PRN (17:42)
--- NOTE | 2016-10-07 17:42 | Procedure Note ---
Date of procedure: 10/07/16 Pre-op diagnosis: TIA/Carotid stenosis Post-op diagnosis: same Procedure: arch aortogram bilateral carotid angiogram Anesthesia: MAC Surgeon: Gustavo Kolb Condition: stable Disposition: floor (no significant stenosis in right carotid system)
--- NOTE | 2016-10-07 18:16 | Invasive Diagnostic Lab Proc ---
Name: Eleni Bentley Date of Study: 10/07/2016 Date: 1945 Ht: 160.0 in Medical Record#: [id number] Age: 70 Wt: 109.7 lb Gender: Female BSA: 2.1 Order #: [id number] BMI: 42.85 Physicians Performing MD: Gustavo Kolb MD, FACS Referring MD: Referring MD: Staff Name Position Time In Valeri Antunez RN Second Crusher Ria Mcnally RT (R) Scrub Sites, Araceli RT (R) Monitor Araceli Talamantes RT (R) Anna Fuller RN Nurse Indications TIA Procedures Performed BILAT PLCE CATH CARTD/INOM ART Pre-Procedure Checklist Informed consent is complete signed and on chart. H\\T\\P is on chart. ID band is on and ID verified with patient. Patient NPO for procedure The procedure was described for the patient and questions were answered. Blood Pressure: 165/97 ECG is on chart. Rhythm: NSR Plan of Care Patient will tolerate the procedure without complications. Adequate level of comfort will be maintained. Hemodynamics will remain stable Patient will recover from procedure without complications. Respiratory function will be maintained. Cardiac rhythm will remain stable. Patient temperature will be maintained. Patient and/or family have verbalized understanding of the procedure. Patient Education Chief Complaint/Reason for Test: Carotid angiogram Developmental Category: Adult (18-64 years) Learning Barriers: None Education Needs: Procedure Education Method: Verbal Information Taught: Carotid angiogram Educational Evaluation: Able to repeat information Intravenous Access Time IV Size Location DC'd Fluid/Drip Rate Units RN 16:54 20g 1 04/07" Patent On Arrival Lt Wrist 0.9NaCl 25 ml/hr Anna Fuller RN Allergies Simvastatin Cortisone Fluvastatin Pitavastatin Hywspks-Hgf-Ipv Reductase Inhibitor cefazolin venom-honey bee NSAIDS (Non-Steroidal Anti-Inflamma bee venom (honey bee) GRAPE FLAVOR Penicillins Vital Signs Time BP Systolic BP Diastolic HR O2 Sats ASA 05:00 PM 04:58 PM 165 97 81 05:02 PM 170 99 75 98 05:07 PM 145 79 71 95 05:13 PM 165 85 74 93 05:17 PM 170 88 73 92 05:23 PM 169 84 73 94 05:27 PM 161 86 71 93 05:32 PM 160 87 71 94 05:16 PM 05:31 PM Procedure Medications Time Medication Dose Units Method Route 04:59 PM Oxygen 2 L/min nasal cannula 05:01 PM Versed 1 mg Intravenous 05:01 PM Fentanyl 75 mcg Intravenous 05:12 PM Lidocaine 2% 20 ml Subcutaneous ASA Classification: CLASS III- Severe systemic disease (i.e. prior AMI, diabetes with vascular complications, morbid obesity) Shemar Score Preprocedure Postprocedure Activity 2- Moves 4 extremities sustained head lift Activity 2- Moves 4 extremities sustained head lift Circulation 2- SBP +/= 20 points of pre-anesthetic level Circulation 2- SBP +/= 20 points of pre-anesthetic level Consciousness 2- Awake and alert oriented x 3 Consciousness 2- Awake and alert oriented x 3 O2 Saturation 2- Able to maintain O2 satruation of 92% on room air O2 Saturation 2- Able to maintain O2 satruation of 92% on room air Respiratory 2- Able to deep breathe and cough well Respiratory 2- Able to deep breathe and cough well Total Score 10 Total Score 10 Contrast: Isovue 300- 150ml Contrast Amount: 65 ml Fluoro Dose: 178 mGy Procedure Log Time Note Entered By 04:46 PM Pt arrived to collaborating supervising physician 1 at 16:46 [facility] 04:58 PM Physician arrived 16:58 tsites 04:58 PM Meet and greet completed tsites 04:58 PM Sign in performed according to hospital policy. tsites 04:58 PM Procedure start 16:58 tsites 04:58 PM Case delayed: No tsites 04:59 PM Valeri Antunez RN Position: Second Crusher Time in: 16:59 tsites 04:59 PM Ria Mcnally RT (R) Position: Scrub Time in: 16:59 tsites 04:59 PM Araceli Quintana RT (R) Position: Monitor Time in: 16:59 tsites 04:59 PM Araceli Talamantes RT (R) Position: Time in: 16:59 tsites 04:59 PM Anna Fuller RN Position: Nurse Time in: 16:59 tsites 05:00 PM 16:59 Oxygen at 2 L/min per nasal cannula by Valeri Antunez RN tsites 05:00 PM Time: 17:00 Is patient comfortable and pain free?: Yes tsites 05:00 PM Time: 17:00LOC: 5 = Fully awake and oriented or at pre-proc level tsites 05:01 PM Patient charges- Angio tray pack, Pulse Oximetry and ACIST tubing and transducer tsites 05:01 PM 17:01 Versed 1 mg Intravenous Given by Valeri Antunez RN tsites 05:02 PM 17:01 Fentanyl 75 mcg Intravenous Given by Valeri Antunez RN tsites 04:52 PM PVIStat 04:56 PM Recorded ECG: HR=80 Condition=Condition 1 04:57 PM Vitals capture started with the following parameters, Patient=Adult, Interval=5 min, Initial Uylwdjwq=090 mmHg, Deflation Rate=5 mmHg, Cuff placed on Right Arm 04:58 PM HR=81 bpm, MOVB=442/97 mmhg, Resp=23 B/min 05:02 PM HR=75 bpm, FJDD=332/99 mmhg, SpO2=98 %, Resp=24 B/min 05:07 PM HR=71 bpm, LLGS=347/79 mmhg, SpO2=95 %, Resp=15 B/min 05:08 PM Recorded ECG: HR=70 Condition=Condition 1 05:10 PM Pressure channel 2 zeroed. 05:13 PM HR=74 bpm, FVTQ=503/85 mmhg, SpO2=93.0 %, Resp=15 B/min 05:17 PM HR=73 bpm, TWKI=865/88 mmhg, SpO2=92.0 %, Resp=17 B/min 05:23 PM HR=73 bpm, IYJC=304/84 mmhg, SpO2=94 %, Resp=16 B/min 05:27 PM HR=71 bpm, KRHN=268/86 mmhg, SpO2=93 %, Resp=16 B/min 05:32 PM HR=71 bpm, RNJA=477/87 mmhg, SpO2=94 %, Resp=18 B/min 05:05 PM Hair removed from procedure site in holding area using clippers. Bilateral groin prepped with Chloraprep by Araceli Talamantes (R), safety strap applied then patient was draped. Skin intact. tsites 05:11 PM Time out perfomed tsites 05:12 PM 17:12 20 ml Lidocaine 2% to right groin Subcutaneous Given By Gustavo Kolb MD, FACS tsites 05:14 PM Smart Needle utilized for vascular access at this time tsites 05:15 PM Time: 17:00 Is patient comfortable and pain free?: Yes tsites 05:15 PM Access obtained in the right femoral artery by percutaneous puncture. 5 Fr. 10 cm [employer] [place] sheath placed in right femoral artery tsites 05:16 PM 0.035 180cm J-wire wire utilized to assist with catheter placement tsites 05:16 PM 5Fr pigtail catheter inserted over the wire tsites 05:17 PM 3cc of contrst injected tsites 05:18 PM Aortic arch angiography performed in CYMRO contrast injected 15/25 mls. tsites 05:19 PM Catheter removed tsites 05:19 PM 5Fr Gruber 2 catheter inserted over the wire tsites 05:21 PM Right carotid angiography performed in AP contrast injected 5/7 mls. tsites 05:23 PM Right carotid angiography performed in lateral contrast injected 5/7 mls. tsites 05:23 PM Right carotid angiography performed in HOLGUIN contrast injected 3/5 mls. tsites 05:26 PM Right carotid angiography performed in HOL[place] contrast injected 3/5 mls. tsites 05:28 PM repositioning catheter tsites 05:28 PM Left carotid angiography performed in AP contrast injected 5/7 mls. tsites 05:29 PM Left carotid angiography performed in lateral contrast injected 5/7 mls. tsites 05:30 PM Time: 17:15 Is patient comfortable and pain free?: Yes tsites 05:30 PM Left carotid angiography performed in CYMRO contrast injected 5/7 mls. tsites 05:31 PM Time: 17:16LOC: 5 = Fully awake and oriented or at pre-proc level tsites 05:33 PM Catheter removed tsites 05:33 PM Procedure completed at 17:33 tsites 05:33 PM Sign Out completed: Radiation Dose 178 mGy Fluoro Time: 3.6 minutes. Isovue 300- 150ml contrast 65 ml given by Gustavo Kolb MD, FACS. Complications: None. Confirmed administered medications:Yes tsites 05:33 PM Isovue 300- 150ml,1 bottle(s) used. tsites 05:36 PM Arterial sheath pulled using manual compression and V+Pad for 15 minutes by Ria Mcnally RT (R) tsites 05:36 PM Post Blood Pressure: 160/87 tsites 05:39 PM Post EKG: NSR tsites 05:40 PM 17:40 Post Pulses: Bilateral DP \\T\\ PT 1+. tsites 05:40 PM Information taught: Carotid angiogram tsites 05:40 PM Education needs: Procedure, Plan of Care, and Responsibilities of Patient in Care tsites 05:40 PM Learning barriers: None tsites 05:40 PM Education methods: Verbal tsites 05:40 PM Education evaluation: Able to repeat information tsites 05:40 PM Patient pain level 0/10 tsites 05:44 PM Report given to Brandy PEACE. Pt taken to [facility], Room # 20 17:44 tsites 05:44 PM Family placed in consult room. tsites 05:45 PM Time: 17:30 Is patient comfortable and pain free?: Yes tsites 05:47 PM Time: 17:31LOC: 5 = Fully awake and oriented or at pre-proc level tsites 05:49 PM Site status No bleeding/hematoma - Rt Groin as reported by Ria Mcnally RT (R) at 17:49 tsites 05:50 PM Opsite applied tsites 05:50 PM Delay to floor: No tsites 05:50 PM Pt taken to [facility] Room# 20 tsites 05:50 PM Patient out of room 17:50 tsites Post Procedure Information Blood Pressure: 160/87 mmHg Rhythm: NSR Post procedure instructions given Site Checks Time Location Status Staff Sheath In? Note 5:49:00 PM Rt Groin No bleeding/ No Hematoma Ria Mcnally RT (R) Pulses Time Site Pre Procedure Post Procedure Note 10/07/2016 4:54:00 PM Bilateral DP \\T\\ PT 1+ 5:40:00 PM Bilateral DP \\T\\ PT 1+ Updated by Araceli Quintana RT (R) on 10/07/2016 5:55:19 PM Araceli Quintana RT electronically signed on 10/07/2016 6:11:09 PM with status of Final
--- NOTE | 2016-10-07 18:48 | Invasive Diagnostic Lab ---
Name: Eleni Bentley Date of Study: 10/07/2016 Date: 1945 Ht: 160.0 in Medical Record#: [id number] Age: 70 Wt: 109.7 lb Gender: Female BSA: 2.1 Order #: [id number] Fluoro: 178 mGy BMI: 42.85 Procedure MD: Gustavo Kolb MD, FACS Referring MD: Wale Lam DO Referring MD: Bruno Cardona MD Procedures Performed: BILAT PLCE CATH CARTD/INOM ART Indications: TIA Impressions: The Aortic arch is normal in appearance and free of obstructive disease. The Left carotid endarterectomy site is widely patent. The Right internal carotid has non-significant disease proximally and an area of kinking in the mid level. The anterior communicating is patent and the left anterior cerebral artery is diminutive. Recommendations: Optimize medical therapy of patient's diseases . Aggressive risk factor modification to include, hyperlipidemia, diabetes, and obesity. History/ Risk Factors: Diabetes Dyslipidemia Hypertension Hx CHF Previous PCI TIA Technique: The puncture of the right groin was difficult and required Doppler-tipped smart-needle in order to identify the femoral vessel and advance the wire. After informed consent was obtained the patient was placed on the angiographic table. The access areas were prepped and draped in the usual sterile fashion. A timeout protocol was observed. Access was obtained in the right femoral artery. The catheter was advanced over a wire to the aortic arch and images were obtained. The aortic arch is a Type I arch. After the images were reviewed a Gruber 2 catheter was then advanced over a guidewire, selectively placed into the right and left common carotid and the following images obtained: anterior cerebral, middle cerebral, anterior communicating, left common carotid, left external carotid, left internal carotid, right common carotid, right external carotid, and right internal carotid. The angiograms were followed from the arterial to the venous phase. The sheath was removed and hemostasis was achieved with the following measures: Manual Pressure and Closure pad. Vessel Findings: There is a lesion present with 30% stenosis, in the Proximal Right Internal Carotid. The lesion has mild calcification present. No intervention was performed on this Lesion. There is kinking due to redundant vessel present in the Mid Right Internal Carotid leading to a 70 % stenosis. No intervention was performed on this Other Pathology. Lesions: Proximal Right Internal Carotid Stenosis: 30% Mid Right Internal Carotid Stenosis: 70% Total Contrast: Isovue 300- 150ml 65mls Updated by Gustavo Kolb MD, FACS on 10/07/2016 6:40:19 PM Gustavo Kolb MD electronically signed on 10/07/2016 6:43:46 PM with status of Final
[2016-10-07] MEDS: Nystatin POWDER 30 GM BOTTLE TP SCH ×3 (19:12→22:54)
[2016-10-07] MEDS ORDERED: *HR* Acetylcysteine 20% 600 MG/3 ML ORAL SYRINGE PO SCH (21:00)
[2016-10-07] MEDS: Acetaminophen 325 MG TABLET PO PRN (23:24)
[2016-10-08] MEDS: *HR* Heparin 5,000 UNIT/ML VIAL SQ SCH ×2 (04:47→17:27)
[2016-10-08 04:58] LABS: Basophils % 0.2 %; Eosinophils # 0.4 K/mcL (0.0-0.6); Eosinophils % 3.8 %; Hemoglobin 10.5 g/dL (11.5-15.4); Immature Granulocytes % 0.5 % (0-4); Lymphocytes # 1.5 K/mcL (0.6-4.6); Lymphocytes % 15.9 %; Mean Corpuscular HGB Conc 31.8 g/dL (31.6-35.5); Mean Corpuscular Hemoglobin 28.4 pg (28.0-33.3); Mean Corpuscular Volume 89.2 fL (83.0-100.0); Mean Platelet Volume 11.5 fL (9.4-12.4); Monocytes # 0.8 K/mcL (0.0-1.3); Monocytes % 8.7 %; Neutrophils # 6.6 K/mcL (1.6-8.9); Platelet Count 256 K/mcL (140-400); Red Cell Distribution Width 14.5 % (11.5-14.5); Segmented Neutrophils % 70.9 %
[2016-10-08 05:17] LABS: Calcium 8.3 mg/dL (8.6-10.8); Potassium 4.5 mEq/L (3.5-4.5)
[2016-10-08] MEDS: Metoprolol XL (24 HR) Succ 50 MG TAB.ER.24H PO SCH (09:27)
[2016-10-08] MEDS: Ascorbic Acid 500 MG TABLET PO SCH ×2 (09:27→20:49)
[2016-10-08] MEDS: Acetaminophen 325 MG TABLET PO PRN (09:27)
[2016-10-08] MEDS: Aspirin Enteric Coated 81 MG Tablet PO SCH (09:27)
[2016-10-08] MEDS: Insulin DETEMIR 100 UNIT/ML X5UNITS SQ SCH ×2 (09:27→22:16)
[2016-10-08] MEDS: Multivit/Ca/Min/Fe/FA 1 TAB TABLET PO SCH (09:28)
[2016-10-08] MEDS: Insulin LISPRO 300 UNITS/3 ML VIAL SQ SCH ×7 (09:29→22:18)
[2016-10-08] MEDS: Nystatin POWDER 30 GM BOTTLE TP SCH ×3 (09:40→20:51)
--- NOTE | 2016-10-08 13:09 | Discharge Summary ---
Date of Encounter: 10/08/16 Time of Encounter: 09:00 - Discharge Diagnosis (1) TIA (transient ischemic attack) Priority: Primary Status: Acute Qualifiers: Transient cerebral ischemia type: other Qualified Code(s): G45.8 - Other transient cerebral ischemic attacks and related syndromes (2) Acute kidney injury superimposed on chronic kidney disease Priority: Secondary Status: Chronic (3) Biventricular ICD (implantable cardioverter-defibrillator) in place Priority: Secondary Status: Chronic (4) Cardiomyopathy Priority: Secondary Status: Chronic Qualifiers: Cardiomyopathy type: ischemic Qualified Code(s): I25.5 - Ischemic cardiomyopathy (5) Diabetes mellitus Priority: Secondary Status: Chronic Qualifiers: Diabetes mellitus type: type 2 Diabetes mellitus complication status: with circulatory complication Diabetes mellitus complication detail: with other circulatory complications Diabetes mellitus travel pt insulin use: with travel pt use Qualified Code(s): E11.59 - Type 2 diabetes mellitus with other circulatory complications; Z79.4 - care home (current) use of insulin - Discharge Medications Home Medications: Clopidogrel [Plavix] 75 mg PO DAILY 11/08/14 [History] Ergocalciferol (VITAMIN D2) [Drisdol (50,000 Unit)] 50,000 unit PO QWEEK [History] Ascorbic Acid [Vitamin C] 500 mg PO BID tablet 08/04/15 [Rx] Aspirin Enteric Coated [Aspirin EC] 81 mg PO DAILY 08/20/15 [History] Metoprolol XL (24 HR) Succ [Toprol Xl] 50 mg PO DAILY #30 tab.er.24h 01/07/16 [ Rx] Insulin Glargine,Hum.rec.anlog [Toujeo Solostar] 45 units SQ HS 06/10/16 [ History] Multivit-Minerals/Folic/Ginkgo [One Daily For Women 50+ Adv Tb] 1 tab PO DAILY 06/10/16 [History] Furosemide [Lasix] 20 mg PO DAILY 10/03/16 [History] Insulin ASPART [Novolog Flexpen] 18 unit SQ TIDWM 10/03/16 [History] Losartan Potassium [Cozaar] 50 mg PO DAILY 10/03/16 [History] Allergies/Adverse Reactions: Allergies venom-honey bee [bee venom (honey bee)] Allergy (Severe, Verified 06/10/16 09:16 ) Swelling of Lip/Tongue/Throat Cortisone Allergy (Mild, Verified 06/10/16 09:16) Hives Penicillins Allergy (Verified 10/02/16 19:59) See Comments NSAIDS (Non-Steroidal Anti-Inflamma Adverse Reaction (Mild, Verified 06/10/16 09 :16) UPSET STOMACH cefazolin [From Ancef] Adverse Reaction (Verified 06/10/16 09:16) Hives Plknilj-Nhy-Tdk Reductase Inhibitor [Statins] Adverse Reaction (Verified 09:16) Muscle Pain GRAPE FLAVOR Allergy (Mild, Uncoded 06/10/16 09:16) Swelling of the Eye Date of admission: 10/06/16 14:59 Primary care physician: Martine Crespo Consults: 10/03/16 00:32 Consult to Occupational Therapy [CONS] Routine Comment: Evaluate, develop and implement POC Reason for Consult: TIA Consult to Physical Therapy [CONS] Routine Comment: Evaluate, develop and implement POC Reason for Consult: TIA Consult to Speech Therapy [CONS] Routine Comment: Evaluate, develop and implement POC Reason for Consult: TIA Call Completed: No 10/03/16 00:36 Consult to Neurology [CONS] Routine Consulting Provider: [facility] Reason for Consult: ADMITTED FOR TIA Call Completed: No 10/03/16 11:12 Consult to Cardiology [CONS] Routine Comment: Consulting Provider: Cardiology [facility] Reason for Consult: dynamic troponin elevation with ?TIA Call Completed: Yes 10/04/16 13:59 Consult to It Analyst [CONS] Routine Reason for SW Consult: PT/OT is advising rehab. 10/04/16 18:16 Consult to Vascular Surgery [CONS] Routine Consulting Provider: Vascular [facility] Reason for Consult: Abnormal carotid ultrasound showing 60-79% stenosis of the right carotid artery in conjunction with TIA symptoms Time Notified: 18:16 Call Completed: Yes Discharging clinician: Hector Guy Anticipated date of discharge: 10/11/16 - Patient Status Disposition: Transfer SNF Condition: Good Functional capacity at discharge: uses cane/walker Overall status at discharge: patient is progressing back to baseline - Discharge Instructions Instructions: Pacemaker (DC), Urinary Tract Infection in Women (DC), Diabetes Mellitus Type 2 in Adults (DC), Chronic Hypertension (DC), Acute Kidney Injury, Mold Setter (GEN), Transient Ischemic Attack, Mold Setter (GEN) Follow Up With: Ashley Herrera [Student Nurse] - 10/12/16 2:30 pm Additional Instructions: Follow-up with cardiology for further management of cardiomyopathy in 1-2 weeks - Diet and Activity Activity: as per physical therapy Diet: diabetic diet, low fat, low cholesterol, low salt diet Hospital course: Ms. Bentley is a 70 year old female patient with a history of diabetes mellitus type 2, coronary artery disease, ischemic cardiomyopathy status post AICD placement, prior TIA, diabetic foot ulcers presented to the ER with complaints of weakness in her lower extremities mainly on the left side and some left upper extremity weakness. By the time she came to the ER most of her symptoms had subsided. She was placed in the hospital for evaluation for possible stroke. She was evaluated with a CT scan of the head which did not show any acute stroke. Neurology was consulted and as the patient was having continued mild weakness in the left upper extremity and lower extremity, acute stroke was strongly considered. Patient was placed on stroke protocol and was treated with Plavix and statin. She underwent MRI of the brain yesterday which showed no acute infarct but patient did have tiny old lacunar infarcts in the left thalamus left midbrain and left head of caudate nucleus. Patient underwent carotid Dopplers which showed 60-79% stenosis in the right mid ICA. Vascular surgery was consulted. Patient underwent carotid angiogram on 10/07/16 which showed no significant stenosis in the right carotid system and prior endarterectomy changes in the left ICA. Patient had presented with acute kidney injury on her underlying chronic kidney disease stage III. She was monitored closely for her renal function and was treated with gentle hydration. She also was treated with Mucomyst prior to her angiogram. Her renal function has improved to her baseline. She does have good urine output. She can resume taking her diuretic and losartan after discharge. She was evaluated by physical therapy and recommended placement to skilled rehabilitation. Patient will be discharged to skilled rehabilitation once she has insurance in bed approval. She will continue to take Plavix and aspirin. Patient has had adverse reaction to statins in the past. So she is currently not taking any statins. Patient is on insulin for her diabetes which she will continue to take. After discharge, patient will need to follow up with cardiology for further management of her cardiomyopathy and with her primary care provider. - Time Spent with Patient Total time spent providing and/or coordinating discharge services: Greater than 30 minutes (40 min) - Constitutional Vitals: Temp Pulse Resp BP Pulse Ox 98.4 F 76 19 112/54 94 10/08/16 07:00 10/08/16 07:00 10/08/16 07:00 10/08/16 07:00 10/08/16 07:00 General appearance: Present: A&O X 3, morbidly obese, no acute distress, answers questions appropriately - Eye Eye exam: Present: EOMI, PERRL, conjuntiva pink, sclera anicteric - Neck Neck exam general surgery: Present: supple, trachea midline. Absent: lymphadenopathy - Respiratory Respiratory exam: Present: CTAB. Absent: accessory muscle use, rales, rhonchi, wheezes - Cardiovascular Cardiovascular exam: Present: RRR, +S1, +S2. Absent: diastolic murmur, gallop, rubs, systolic murmur - GI/Abdominal GI/Abdominal exam: Present: normal bowel sounds, soft, no peritoneal signs. Absent: distended, tenderness - Extremities Exam Extremities exam: Present: warm, radial pulses palpable and symetrical. Absent : calf tenderness, cyanotic, pedal edema - Neurological Exam Neurological exam: Present: alert, oriented X3, no focal deficits. Absent: facial droop, speech deficit - Skin Skin exam: Present: dry, intact
--- NOTE | 2016-10-08 13:27 | Physician Discharge Referral ---
[facility] Referral Info Provider in Charge after Transfer: PCP Institutional Level of Care: Skilled - Diagnosis (1) TIA (transient ischemic attack) Priority: Primary Status: Acute (2) Acute kidney injury superimposed on chronic kidney disease Priority: Secondary Status: Chronic (3) Biventricular ICD (implantable cardioverter-defibrillator) in place Priority: Secondary Status: Chronic (4) Cardiomyopathy Priority: Secondary Status: Chronic (5) Diabetes mellitus Priority: Secondary Status: Chronic Prognosis: Fair Aware of Diagnosis: Patient Aware of Prognosis: Patient - Transfer Medications Home Medications: Clopidogrel [Plavix] 75 mg PO DAILY 11/08/14 [History] Ergocalciferol (VITAMIN D2) [Drisdol (50,000 Unit)] 50,000 unit PO QWEEK [History] Ascorbic Acid [Vitamin C] 500 mg PO BID tablet 08/04/15 [Rx] Aspirin Enteric Coated [Aspirin EC] 81 mg PO DAILY 08/20/15 [History] Metoprolol XL (24 HR) Succ [Toprol Xl] 50 mg PO DAILY #30 tab.er.24h 01/07/16 [ Rx] Insulin Glargine,Hum.rec.anlog [Toujeo Solostar] 45 units SQ HS 06/10/16 [ History] Multivit-Minerals/Folic/Ginkgo [One Daily For Women 50+ Adv Tb] 1 tab PO DAILY 06/10/16 [History] Furosemide [Lasix] 20 mg PO DAILY 10/03/16 [History] Insulin ASPART [Novolog Flexpen] 18 unit SQ TIDWM 10/03/16 [History] Losartan Potassium [Cozaar] 50 mg PO DAILY 10/03/16 [History] Allergies/Adverse Reactions: Allergies venom-honey bee [bee venom (honey bee)] Allergy (Severe, Verified 06/10/16 09:16 ) Swelling of Lip/Tongue/Throat Cortisone Allergy (Mild, Verified 06/10/16 09:16) Hives Penicillins Allergy (Verified 10/02/16 19:59) See Comments NSAIDS (Non-Steroidal Anti-Inflamma Adverse Reaction (Mild, Verified 06/10/16 09 :16) UPSET STOMACH cefazolin [From Ancef] Adverse Reaction (Verified 06/10/16 09:16) Hives Mergshd-Pzo-Byr Reductase Inhibitor [Statins] Adverse Reaction (Verified 09:16) Muscle Pain GRAPE FLAVOR Allergy (Mild, Uncoded 06/10/16 09:16) Swelling of the Eye - Respiratory Orders Oxygen / L per min (keep sats >90%) Smoking Cessation: Smoking cessation has been advised. For more information, call the [place] Tobacco Quit Line at 6-544-CGMJ-NOW. - Ancillary Orders May consult with Dentist, Wheel Inspector, System Analyst PRN - Advance Directives Code Status: Full Code - Mobility Orders Other (per PT) - Rehabiliation Orders Rehab Potential: Fair Rehab Orders: Evaluation for Physical Therapy, Evaluation for Occupational Therapy - Diet Orders No Concentrated Sweets, Cardiac (and diabetic) CERTIFICATION: I certify that the transfer of the above named patient to an Extended Care Facility is necessary for the continuing treatment of the diagnosis listed. The above information is true and accurate reflection of patient's current condition. Confidential - Redisclosure prohibited without a patient's written consent.
[2016-10-09] MEDS: *HR* Heparin 5,000 UNIT/ML VIAL SQ SCH ×2 (05:34→17:06)
[2016-10-09] MEDS: Insulin LISPRO 300 UNITS/3 ML VIAL SQ SCH ×7 (08:37→22:10)
[2016-10-09] MEDS: Ascorbic Acid 500 MG TABLET PO SCH ×2 (08:37→21:23)
[2016-10-09] MEDS: Multivit/Ca/Min/Fe/FA 1 TAB TABLET PO SCH (08:38)
[2016-10-09] MEDS: Aspirin Enteric Coated 81 MG Tablet PO SCH (08:38)
[2016-10-09] MEDS: Metoprolol XL (24 HR) Succ 50 MG TAB.ER.24H PO SCH (08:38)
[2016-10-09] MEDS: Insulin DETEMIR 100 UNIT/ML X5UNITS SQ SCH ×2 (08:49→22:11)
[2016-10-09] MEDS: Nystatin POWDER 30 GM BOTTLE TP SCH ×2 (08:50→15:43)
--- NOTE | 2016-10-09 13:40 | Internal Med Progress Note ---
Date of Encounter: 10/09/16 Time of Encounter: 09:30 - Assessment and plan (1) TIA (transient ischemic attack) Current Visit: Yes Status: Acute Assessment and plan: Continue aspirin and Plavix. Continue physical therapy. Awaiting placement to skilled rehabilitation. Qualifiers: Transient cerebral ischemia type: other Qualified Code(s): G45.8 - Other transient cerebral ischemic attacks and related syndromes (2) Acute kidney injury superimposed on chronic kidney disease Current Visit: Yes Status: Chronic Assessment and plan: Renal function improved to baseline. (3) Biventricular ICD (implantable cardioverter-defibrillator) in place Current Visit: No Status: Chronic (4) Cardiomyopathy Current Visit: Yes Status: Chronic Assessment and plan: Follow-up outpatient with cardiology. On aspirin and Plavix and beta maggie. We will resume Cozaar. Qualifiers: Cardiomyopathy type: ischemic Qualified Code(s): I25.5 - Ischemic cardiomyopathy (5) Diabetes mellitus Current Visit: Yes Status: Chronic Assessment and plan: Blood sugars remain elevated. We will increase long-acting insulin coverage. Qualifiers: Diabetes mellitus type: type 2 Diabetes mellitus complication status: with circulatory complication Diabetes mellitus complication detail: with other circulatory complications Diabetes mellitus skilled nursing insulin use: with termite control representative use Qualified Code(s): E11.59 - Type 2 diabetes mellitus with other circulatory complications; Z79.4 - senior care (current) use of insulin - Subjective Interval history: Patient is doing well. No new issues overnight. No new complaints at this time. Awaiting placement to skilled rehabilitation - Constitutional Vitals: Temp Pulse Resp BP Pulse Ox 98.7 F 73 16 141/66 94 10/09/16 06:29 10/09/16 06:29 10/09/16 06:29 10/09/16 06:29 10/09/16 06:29 General appearance: Present: A&O X 3, morbidly obese, no acute distress, answers questions appropriately - Respiratory Respiratory exam: Present: CTAB. Absent: accessory muscle use, rales, rhonchi, wheezes - Cardiovascular Cardiovascular exam: Present: RRR, +S1, +S2. Absent: diastolic murmur, gallop, rubs, systolic murmur - Extremities Exam Extremities exam: Present: warm, radial pulses palpable and symetrical. Absent : calf tenderness, cyanotic, pedal edema - Neurological Exam Neurological exam: Present: alert, oriented X3, no focal deficits. Absent: facial droop, speech deficit Internal Medicine: Result - Labs CBC & Chem 7: 10/08/16 02:59 10/08/16 02:59 - ABG Interpretation ABG results: PT/INR, D-dimer PT 10.4 Seconds (9.4-12.1) 10/06/16 15:54 Consult Discharge Plan - Plan Instructions: Pacemaker (DC), Urinary Tract Infection in Women (DC), Diabetes Mellitus Type 2 in Adults (DC), Chronic Hypertension (DC), Acute Kidney Injury, Supervisor Engine Repair (GEN), Transient Ischemic Attack, Supervisor Engine Repair (GEN) Additional Instructions: Follow-up with cardiology for further management of cardiomyopathy in 1-2 weeks Referrals: Ashley Hererra [Student Nurse] - 10/12/16 2:30 pm
[2016-10-10] MEDS: Nystatin POWDER 30 GM BOTTLE TP SCH ×4 (00:24→20:39)
[2016-10-10] MEDS: *HR* Heparin 5,000 UNIT/ML VIAL SQ SCH ×2 (05:21→16:30)
[2016-10-10] MEDS: Insulin LISPRO 300 UNITS/3 ML VIAL SQ SCH ×7 (08:50→20:41)
[2016-10-10] MEDS: Multivit/Ca/Min/Fe/FA 1 TAB TABLET PO SCH (08:54)
[2016-10-10] MEDS: Ascorbic Acid 500 MG TABLET PO SCH ×2 (08:54→20:43)
[2016-10-10] MEDS: Aspirin Enteric Coated 81 MG Tablet PO SCH (08:54)
[2016-10-10] MEDS: Metoprolol XL (24 HR) Succ 50 MG TAB.ER.24H PO SCH (08:54)
[2016-10-10] MEDS: Insulin DETEMIR 100 UNIT/ML X5UNITS SQ SCH (09:05)
--- NOTE | 2016-10-10 15:34 | Internal Med Progress Note ---
Date of Encounter: 10/10/16 Time of Encounter: 11:15 - Assessment and plan (1) TIA (transient ischemic attack) Current Visit: Yes Status: Acute Assessment and plan: Symptoms resolved. Awaiting placement to skilled rehabilitation for physical therapy. Continue aspirin and Plavix. Not on statin due to prior adverse reaction. Qualifiers: Transient cerebral ischemia type: other Qualified Code(s): G45.8 - Other transient cerebral ischemic attacks and related syndromes (2) Acute kidney injury superimposed on chronic kidney disease Current Visit: Yes Status: Chronic Assessment and plan: Improved. (3) Biventricular ICD (implantable cardioverter-defibrillator) in place Current Visit: No Status: Chronic (4) Cardiomyopathy Current Visit: Yes Status: Chronic Assessment and plan: On aspirin and Plavix. Qualifiers: Cardiomyopathy type: ischemic Qualified Code(s): I25.5 - Ischemic cardiomyopathy (5) Diabetes mellitus Current Visit: Yes Status: Chronic Assessment and plan: Blood sugars still staying above 200. We will increase pre-meal insulin dosage. Qualifiers: Diabetes mellitus type: type 2 Diabetes mellitus complication status: with circulatory complication Diabetes mellitus complication detail: with other circulatory complications Diabetes mellitus group home insulin use: with watermelon inspector use Qualified Code(s): E11.59 - Type 2 diabetes mellitus with other circulatory complications; Z79.4 - [facility] (current) use of insulin - Subjective Interval history: No acute issues overnight. Patient remains comfortable. No new complaints. - Constitutional Vitals: Temp Pulse Resp BP Pulse Ox 98.8 F 70 15 159/72 99 10/10/16 15:17 10/10/16 15:17 10/10/16 15:17 10/10/16 15:17 10/10/16 15:17 General appearance: Present: A&O X 3, morbidly obese, no acute distress, answers questions appropriately - Respiratory Respiratory exam: Present: CTAB. Absent: accessory muscle use, rales, rhonchi, wheezes - Cardiovascular Cardiovascular exam: Present: RRR, +S1, +S2. Absent: diastolic murmur, gallop, rubs, systolic murmur - GI/Abdominal GI/Abdominal exam: Present: normal bowel sounds, soft, no peritoneal signs. Absent: distended, tenderness - Extremities Exam Extremities exam: Present: warm, radial pulses palpable and symetrical. Absent : calf tenderness, cyanotic, pedal edema - Neurological Exam Neurological exam: Present: alert, oriented X3, no focal deficits, strengths equal and symetr throughout. Absent: facial droop, speech deficit Internal Medicine: Result - Labs CBC & Chem 7: 10/08/16 02:59 10/08/16 02:59 - ABG Interpretation ABG results: PT/INR, D-dimer PT 10.4 Seconds (9.4-12.1) 10/06/16 15:54 Consult Discharge Plan - Plan Instructions: Pacemaker (DC), Urinary Tract Infection in Women (DC), Diabetes Mellitus Type 2 in Adults (DC), Chronic Hypertension (DC), Acute Kidney Injury, Sports Team Marketing Intern (GEN), Transient Ischemic Attack, Sports Team Marketing Intern (GEN) Additional Instructions: Follow-up with cardiology for further management of cardiomyopathy in 1-2 weeks Referrals: Ashley Herrera [Student Nurse] - 10/12/16 2:30 pm
[2016-10-10] MEDS ORDERED: Insulin DETEMIR 100 UNIT/ML X5UNITS SQ SCH (21:00)
[2016-10-11] MEDS: *HR* Heparin 5,000 UNIT/ML VIAL SQ SCH (06:04)
[2016-10-11] MEDS ORDERED: Insulin DETEMIR 100 UNIT/ML X5UNITS SQ SCH (09:00)
[2016-10-11] MEDS ORDERED: Furosemide 20 MG TABLET PO SCH (09:00)
[2016-10-11] MEDS: Insulin LISPRO 300 UNITS/3 ML VIAL SQ SCH ×4 (09:31→12:05)
[2016-10-11] MEDS: Nystatin POWDER 30 GM BOTTLE TP SCH ×2 (09:34→13:45)
[2016-10-11] MEDS: Ascorbic Acid 500 MG TABLET PO SCH (09:34)
[2016-10-11] MEDS: Metoprolol XL (24 HR) Succ 50 MG TAB.ER.24H PO SCH (09:34)
[2016-10-11] MEDS: Multivit/Ca/Min/Fe/FA 1 TAB TABLET PO SCH (09:34)
[2016-10-11] MEDS: Aspirin Enteric Coated 81 MG Tablet PO SCH (09:34)
[2016-10-11 11:02] VITALS: BP 129/65
--- NOTE | 2016-10-11 14:57 | Internal Med Progress Note ---
Date of Encounter: 10/11/16 Time of Encounter: 09:20 - Assessment and plan (1) TIA (transient ischemic attack) Current Visit: Yes Status: Acute Assessment and plan: Symptoms have mostly resolved. Continue aspirin and Plavix. Patient not on statin due to adverse reactions in the past. Her cholesterol levels are fairly controlled. Awaiting placement to skilled rehabilitation. Qualifiers: Transient cerebral ischemia type: other Qualified Code(s): G45.8 - Other transient cerebral ischemic attacks and related syndromes (2) Acute kidney injury superimposed on chronic kidney disease Current Visit: Yes Status: Chronic Assessment and plan: Has been placed back on Cozaar and Lasix. Recheck basic panel in 1-2 weeks (3) Biventricular ICD (implantable cardioverter-defibrillator) in place Current Visit: No Status: Chronic (4) Cardiomyopathy Current Visit: Yes Status: Chronic Assessment and plan: Follow-up with cardiology for further management as outpatient Qualifiers: Cardiomyopathy type: ischemic Qualified Code(s): I25.5 - Ischemic cardiomyopathy (5) Diabetes mellitus Current Visit: Yes Status: Chronic Assessment and plan: Improved control. Continue to monitor blood sugars while patient is in hospital. Qualifiers: Diabetes mellitus type: type 2 Diabetes mellitus complication status: with circulatory complication Diabetes mellitus complication detail: with other circulatory complications Diabetes mellitus [facility] insulin use: with captain waiter use Qualified Code(s): E11.59 - Type 2 diabetes mellitus with other circulatory complications; Z79.4 - conference services director (current) use of insulin - Subjective Interval history: No new complaints. Doing well. Awaiting placement to skilled rehabilitation - Constitutional Vitals: Temp Pulse Resp BP Pulse Ox 98.4 F 59 15 129/65 97 10/11/16 10:55 10/11/16 10:55 10/11/16 10:55 10/11/16 10:55 10/11/16 10:55 General appearance: Present: A&O X 3, morbidly obese, no acute distress, answers questions appropriately - Respiratory Respiratory exam: Present: CTAB. Absent: accessory muscle use, rales, rhonchi, wheezes - Cardiovascular Cardiovascular exam: Present: RRR, +S1, +S2. Absent: diastolic murmur, gallop, rubs, systolic murmur - Neurological Exam Neurological exam: Present: CN II-XII intact, oriented X3, no focal deficits, strengths equal and symetr throughout. Absent: facial droop, speech deficit Internal Medicine: Result - Labs CBC & Chem 7: 10/08/16 02:59 10/08/16 02:59 - ABG Interpretation ABG results: PT/INR, D-dimer PT 10.4 Seconds (9.4-12.1) 10/06/16 15:54 Consult Discharge Plan - Plan Instructions: Pacemaker (DC), Urinary Tract Infection in Women (DC), Diabetes Mellitus Type 2 in Adults (DC), Chronic Hypertension (DC), Acute Kidney Injury, Aviation Safety Inspector (GEN), Transient Ischemic Attack, Aviation Safety Inspector (GEN) Additional Instructions: Follow-up with cardiology for further management of cardiomyopathy in 1-2 weeks Referrals: Ashley Herrera [Student Nurse] - 10/12/16 2:30 pm
== END 2016-10-11 16:16 | DRG 69 ==
LOC: EMEROO 19:50 → 2NENU 19:50 → SUATTDRO 22:31 → 2NENU 23:18
PROVIDERS: ADMIT Internal Medicine; ATTEND Internal Medicine

== ENCOUNTER 2017-11-03 10:51 | Observation (INO) ==
--- NOTE | 2017-11-03 11:57 | Emergency Department Note ---
Disposition Clinical Impression: Hematuria Qualifiers: Hematuria type: gross Qualified Code(s): R31.0 - Gross hematuria Anemia Qualifiers: Anemia type: unspecified type Qualified Code(s): D64.9 - Anemia, unspecified Chronic kidney disease (CKD) Qualifiers: Chronic kidney disease stage: unspecified stage Qualified Code(s): N18.9 - Chronic kidney disease, unspecified Disposition: Admitted As Inpatient Condition: Fair Referrals: Wale Lam DO [Primary Care Provider] - Forms: ED Satisfaction Letter Time of Disposition: 12:54 Female Urogenital HPI - General Chief complaint: ED Urogenital-Female Stated complaint: Blood in urine Time Seen by Provider: 11/03/17 10:58 Source: patient, family Limitations: no limitations Nursing Notes Reviewed: Yes Vital Signs Reviewed: Yes - History of Present Illness HPI Narrative: Patient reports gross hematuria starting at 3 AM. She has also been passing urinary clots. She is adamant that the bleeding is not coming from her rectum or her vagina. She takes Plavix and an aspirin. She denies any other bleeding. No dysuria or other urinary symptoms. No abdominal pain Worsens with: urination Associated symptoms: Reports: denies other symptoms - Related Data Home Medications Medication Instructions Recorded Confirmed Clopidogrel [Plavix] 75 mg PO DAILY 11/08/14 10/03/16 Ergocalciferol (VITAMIN D2) 50,000 unit PO QWEEK 11/08/14 10/03/16 [Drisdol (50,000 Unit)] Aspirin Enteric Coated [Aspirin EC] 81 mg PO DAILY 08/20/15 10/03/16 Insulin Glargine,Hum.rec.anlog 45 units SQ HS 06/10/16 10/03/16 [Toukeri Solostclau] Multivit-Minerals/Folic/Ginkgo 1 tab PO DAILY 06/10/16 10/03/16 [One Daily For Women 50+ Adv Tb] Furosemide [Lasix] 20 mg PO DAILY 10/03/16 10/03/16 Insulin ASPART [Novolog Flexpen] 18 unit SQ TIDWM 10/03/16 10/03/16 Losartan Potassium [Cozaar] 50 mg PO DAILY 10/03/16 10/03/16 Previous Rx's Medication Instructions Recorded Ascorbic Acid [Vitamin C] 500 mg PO BID tablet 08/04/15 Metoprolol XL (24 HR) Succ [Toprol 50 mg PO DAILY #30 tab.er.24h 01/07/16 Xl] Allergies Allergy/AdvReac Type Severity Reaction Status Date / Time venom-honey bee Allergy Severe Swelling Verified 11/03/17 10:53 [bee venom (honey bee)] of Lip/Tongue/Throat Cortisone Allergy Mild Hives Verified 11/03/17 10:53 Penicillins Allergy See Verified 11/03/17 10:53 Comments NSAIDS (Non-Steroidal AdvReac Mild UPSET Verified 11/03/17 10:53 Anti-Inflamma STOMACH cefazolin [From Ancef] AdvReac Hives Verified 11/03/17 10:53 Vhxwjpg-Wzg-Vho Reductase AdvReac Muscle Pain Verified 11/03/17 10:53 Inhibitor [Statins] GRAPE FLAVOR Allergy Mild Swelling Uncoded 11/03/17 10:53 of the Eye All systems ED: reviewed and negative except as stated. Constitutional: Reports: as per HPI Eyes: Reports: as per HPI ENT ED: Reports: as per HPI Cardiovascular: Reports: as per HPI Respiratory: Reports: as per HPI Gastrointestinal: Reports: as per HPI Genitourinary: Reports: hematuria Musculoskeletal: Reports: as per HPI Integumentary: Reports: as per HPI Neurological: Reports: as per HPI Psychiatric: Reports: as per HPI Endocrine: Reports: as per HPI Hematological/Lymphatic: Reports: as per HPI Allergic/Immunologic: Reports: as per HPI Past Medical History - Past Medical History Source: patient Medical history: Reports: cardiomyopathy, CHF, coronary artery disease, CVA, diabetes, GERD, hyperlipidemia, hypertension, kidney stones, myocardial infarction, peripheral artery disease, renal disease, TIA Surgical history: Reports: appendectomy, breast surgery, carotid endarterectomy (Left carotid endarterectomy in November 2014), cholecystectomy, coronary bypass ( CABG), hysterectomy, pacemaker/AICD, LE vascular intervention (Status post left peroneal artery balloon angioplasty July 2015) Psychiatric history: Reports: depression - Social History Smoking Status: Former smoker Smokeless Tobacco Status: No Alcohol use: Reports: none Drug use: Reports: none Physical Exam - General Limitations: no limitations General appearance: alert - Head Head exam: atraumatic - Eye Eye exam: Present: normal appearance - ENT ENT exam: normal exam - Neck Neck exam: Present: normal inspection, full ROM - Chest Chest inspection: Present: normal inspection, symmetric chest wall rise - Respiratory Respiratory exam: Present: normal lung sounds bilaterally - Cardiovascular Cardiovascular exam: Present: regular rate, normal rhythm, normal heart sounds - Abdominal Exam Abdominal exam: Present: soft, Non-Tender, normal bowel sounds, other (Obese) Abdominal tenderness: Absent: RUQ, RLQ - Rectal Exam Humanities Professor present during exam: Yes Rectal exam: Present: hemorrhoids (External, nonthrombosed) - Female Humanities Professor present during exam: Yes External Exam: Present: erythema, other (Erythema of the labia) - Extremities Exam Extremities exam: Present: pedal edema, other (Lower extremities with circumferential wraps.) - Neurological Exam Neurological exam: Present: alert, oriented X3, CN II-XII intact - Psychiatric Psychiatric exam: Present: normal affect, normal mood - Skin Skin exam: Present: warm, dry, other (Increased erythema to the right anterior and medial proximal thigh) Course Course Narrative: Patient presents with gross hematuria. She has no other GI/ symptoms. Gross blood present when examining her bedside urine specimen. She has a benign exam. Takes Plavix and aspirin. Workup including laboratory investigation and noncontrast CT scan abdomen and pelvis initiated - Reevaluation(s) Reevaluation #1: I discussed this case with urology on-call. I will request admission to the medicine service with urology consultation. The patient is already anemic Vital Signs Temperature 98.5 F 11/03/17 10:53 Pulse Rate 85 11/03/17 10:53 Respiratory Rate 20 11/03/17 10:53 Blood Pressure 123/53 11/03/17 10:53 O2 Sat by Pulse Oximetry 96 11/03/17 10:53 Temperature 98.5 F 11/03/17 12:22 Pulse Rate 85 11/03/17 12:22 Respiratory Rate 20 11/03/17 12:22 Blood Pressure 123/53 11/03/17 12:22 O2 Sat by Pulse Oximetry 96 11/03/17 12:22 Oxygen Delivery Oxygen Delivery Room Air Urogenital-Female - Lab Data Result diagrams: 11/03/17 11:49 11/03/17 11:49 Lab Results 11/03/17 11/03/17 11/03/17 Range/Units 11:46 11:49 11:49 WBC 7.8 (4.3-11.1) K/mcL RBC 3.71 L (3.82-4.97) M/mcL Hgb 10.4 L (11.5-15.4) g/dL Hct 33.4 L (35.3-44.9) % MCV 90.0 (83.0-100.0) fL MCH 28.0 (28.0-33.3) pg MCHC 31.1 L (31.6-35.5) g/dL RDW 14.6 H (11.5-14.5) % Plt Count 284 (140-400) K/mcL MPV 10.4 (9.4-12.4) fL Immature Gran % 0.5 (0-4) % Seg Neutrophils % 66.4 % Lymphocytes % 15.6 % Monocytes % 10.7 % Eosinophils % 6.3 % Basophils % 0.5 % Neutrophils # 5.1 (1.6-8.9) K/mcL Lymphocytes # 1.2 (0.6-4.6) K/mcL Monocytes # 0.8 (0.0-1.3) K/mcL Eosinophils # 0.5 (0.0-0.6) K/mcL Basophils # 0.0 (0.0-0.2) K/mcL PT 12.1 (9.4-12.1) Seconds INR 1.1 APTT 27.4 (26.0-36.0) Seconds Sodium (136-145) mEq/L Potassium (3.5-5.1) mEq/L Chloride (98-107) mEq/L Carbon Dioxide (23-29) mEq/L BUN (8-23) mg/dL Creatinine (0.60-1.20) mg/dL Est GFR ( Amer) (> 60) Est GFR (Non-Af Amer) (> 60) BUN/Creatinine Ratio (6-26) Glucose (70-105) mg/dL Calculated Osmolality (280-300) Calcium (8.6-10.3) mg/dL Total Bilirubin (0.3-1.0) mg/dL AST (13-39) Units/L ALT (7-52) Units/L Alkaline Phosphatase (34-104) Units/L Serum Total Protein (6.4-8.9) g/dL Albumin (3.5-5.7) g/dL Globulin (2.4-3.5) g/dL Albumin/Globulin Ratio (1.1-2.2) Ur Specimen Adequacy See below A Urine Color Red A (Yellow) Urine Clarity Cloudy A (Clear) Urine pH 6.0 (5.0-8.0) pH Units Ur Specific [place] 1.011 (1.010-1.025) Urine Protein >=300 H (Neg-Trace) mg/dL Urine Glucose (UA) Normal (Normal) mg/dL Urine Ketones Negative (Negative) mg/dL Urine Blood Large H (Negative) Urine Nitrite Negative (Negative) Urine Bilirubin Negative (Negative) Urine Urobilinogen Normal (Normal) mg/dL Ur Leukocyte Esterase Moderate H (Negative) Urine Bacteria None Seen (None-Few) per hpf Ur Culture Indicated? YES A (NO) Blood Type Antibody Screen 11/03/17 11/03/17 Range/Units 11:49 11:49 WBC (4.3-11.1) K/mcL RBC (3.82-4.97) M/mcL Hgb (11.5-15.4) g/dL Hct (35.3-44.9) % MCV (83.0-100.0) fL MCH (28.0-33.3) pg MCHC (31.6-35.5) g/dL RDW (11.5-14.5) % Plt Count (140-400) K/mcL MPV (9.4-12.4) fL Immature Gran % (0-4) % Seg Neutrophils % % Lymphocytes % % Monocytes % % Eosinophils % % Basophils % % Neutrophils # (1.6-8.9) K/mcL Lymphocytes # (0.6-4.6) K/mcL Monocytes # (0.0-1.3) K/mcL Eosinophils # (0.0-0.6) K/mcL Basophils # (0.0-0.2) K/mcL PT (9.4-12.1) Seconds INR APTT (26.0-36.0) Seconds Sodium 136 (136-145) mEq/L Potassium 4.5 (3.5-5.1) mEq/L Chloride 106 (98-107) mEq/L Carbon Dioxide 19 L (23-29) mEq/L BUN 72 H (8-23) mg/dL Creatinine 2.52 H (0.60-1.20) mg/dL Est GFR ( Amer) 23 L (> 60) Est GFR (Non-Af Amer) 19 L (> 60) BUN/Creatinine Ratio 29 H (6-26) Glucose 255 H (70-105) mg/dL Calculated Osmolality 312 H (280-300) Calcium 9.2 (8.6-10.3) mg/dL Total Bilirubin 0.7 (0.3-1.0) mg/dL AST 11 L (13-39) Units/L ALT 8 (7-52) Units/L Alkaline Phosphatase 91 (34-104) Units/L Serum Total Protein 7.1 (6.4-8.9) g/dL Albumin 3.3 L (3.5-5.7) g/dL Globulin 3.8 H (2.4-3.5) g/dL Albumin/Globulin Ratio 0.9 L (1.1-2.2) Ur Specimen Adequacy Urine Color (Yellow) Urine Clarity (Clear) Urine pH (5.0-8.0) pH Units Ur Specific [place] (1.010-1.025) Urine Protein (Neg-Trace) mg/dL Urine Glucose (UA) (Normal) mg/dL Urine Ketones (Negative) mg/dL Urine Blood (Negative) Urine Nitrite (Negative) Urine Bilirubin (Negative) Urine Urobilinogen (Normal) mg/dL Ur Leukocyte Esterase (Negative) Urine Bacteria (None-Few) per hpf Ur Culture Indicated? (NO) Blood Type O POSITIVE Antibody Screen NEGATIVE
[2017-11-03 12:02] LABS: Bilirubin,Urine Negative (Negative); Blood,Urine Large (Negative); Clarity,Urine Cloudy (Clear); Color,Urine Red (Yellow); Glucose,Urine (UA) Normal (Normal); Ketones,Urine Negative (Negative); Leukocyte Esterase,Urine Moderate (Negative); Nitrite,Urine Negative (Negative); Protein,Urine >=300 mg/dL (Neg-Trace); Specific Gravity,Urine 1.011 (1.010-1.025); Urobilinogen,Urine Normal (Normal)
[2017-11-03 12:03] LABS: Bacteria,Urine None Seen per hpf (None-Few)
[2017-11-03 12:07] LABS: Basophils % 0.5 %; Eosinophils # 0.5 K/mcL (0.0-0.6); Eosinophils % 6.3 %; Hematocrit 33.4 % (35.3-44.9); Hemoglobin 10.4 g/dL (11.5-15.4); Immature Granulocytes % 0.5 % (0-4); Lymphocytes # 1.2 K/mcL (0.6-4.6); Lymphocytes % 15.6 %; Mean Corpuscular HGB Conc 31.1 g/dL (31.6-35.5); Mean Platelet Volume 10.4 fL (9.4-12.4); Monocytes # 0.8 K/mcL (0.0-1.3); Monocytes % 10.7 %; Neutrophils # 5.1 K/mcL (1.6-8.9); Platelet Count 284 K/mcL (140-400); Red Blood Count 3.71 M/mcL (3.82-4.97); Red Cell Distribution Width 14.6 % (11.5-14.5); Segmented Neutrophils % 66.4 %
[2017-11-03 12:12] LABS: INR 1.1; Prothrombin Time 12.1 Seconds (9.4-12.1)
[2017-11-03 12:15] LABS: Activated Partial Thrombo Time 27.4 Seconds (26.0-36.0)
[2017-11-03 12:43] LABS: Albumin 3.3 g/dL (3.5-5.7); Albumin/Globulin Ratio 0.9 (1.1-2.2); Bilirubin,Total 0.7 mg/dL (0.3-1.0); Calcium 9.2 mg/dL (8.6-10.3); Globulin 3.8 g/dL (2.4-3.5); Potassium 4.5 mEq/L (3.5-5.1); Total Protein 7.1 g/dL (6.4-8.9)
[2017-11-03] MEDS ORDERED: Naloxone 0.4 MG/ML INJ IVP PRN (15:28)
[2017-11-03] MEDS ORDERED: D5% in Water 1,000 ML IVC PRN (15:35)
[2017-11-03] MEDS ORDERED: Dextrose Gel 15 GM/37.5 ML TUBE PO PRN ×2 (15:35)
[2017-11-03] MEDS ORDERED: *HR* Dextrose 50 % in Water (Syg) 50 ML SYRINGE IVP PRN (15:35)
--- NOTE | 2017-11-03 17:45 | Internal Med History&Physical ---
Date of Encounter: 11/03/17 Time of Encounter: 17:45 Internal Medicine - H&P: HPI Chief complaint: Gross hematuria Admitted From: Home Plans for Post Hospital Care: Transfer [facility] History of present illness: Ms. Bentley is a 71 year old female. This woman was admitted to the emergency room shortly after she had developed gross hematuria with clots. It happened around 3 AM at her home. She did not have any urinary symptoms before the bleeding happened. Her bleeding was significantly decreased by the time of her arrival to emergency departmentdark red discoloration of urine. She has not made any urine since admitting her to the floor. The patient did not have any urinary symptoms recently. She does not have any previous history of bleeding. Denies abdominal pain, nausea and vomiting. Denies chest pain. Denies difficulty breathing. The patient basically has been bedbound for several weeks. It was on September 02 when she was transferred to [facility] for the treatment of her possible stroke/TIA. It happened to be urinary tract infection. She was in bed for some time; did not resume her normal activities. The patient does give a feeling of weakness all the time. She suffers from chronic low back pain. This patient has been treated for ischemic cardiomyopathy (three-vessel disease ) with ejection fraction of about 30%. She had the CABG surgery in the past. Her last ejection fraction from echocardiogram done in October 2016 was 30%. She has inserted AICD. 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 Review of systems: All 14 organ systems were reviewed by me with the patient. Positive and pertinent negative findings are listed above. The rest of organ systems is negative. Assessment and plan: Gross hematuria/clots. She had a CT of abdomen and pelvis done in the emergency room. It showed small renal stones without evidence for obstruction of ureters. Urology is consulted. We will give her 1 L of IV fluids. Type 2 diabetes mellitus/hypertension with CKD stage III. We will treat her with diabetic diet, insulin Levemir and when necessary insulin Humalog. We will treat her with Toprol-XL and losartan. Coronary artery disease/chronic systolic heart failure. Her medical treatment for those 2 problems has been optimized. We will continue Toprol-XL, losartan, Lasix and aspirin. Deconditioning/inability to ambulate. We will consult social media sr strategy manager; she needs to be placed in ECF after the discharge. Past Med Surg Social Fam HX - Past Medical History Medical history: cardiomyopathy, CHF, coronary artery disease, CVA, diabetes, GERD, hyperlipidemia, hypertension, kidney stones, myocardial infarction, peripheral artery disease, renal disease, TIA Additional medical history: renal insufficiency, blood thinner Psychiatric history: depression - Past Surgical History Surgical History: appendectomy, breast surgery, carotid endarterectomy, cholecystectomy, coronary bypass (CABG), hysterectomy, pacemaker/AICD, LE vascular intervention Additional surgical history: cyst removed in left breast, left chest pacer/AICD - Social History Smoking Status: Former smoker Smokeless Tobacco Status: No Alcohol use: none Drug use: none - Family History Mother Living Status: Hx Family Cardiac Disorders: Yes (HTN) Hx Family Endocrine Disorder: Yes (diabetes) Hx Family Neurologic Disorders: Yes (2 strokes) Father Living Status: Hx Family Cardiac Disorders: Yes Hx Family Respiratory Disorders: Yes Hx Family Neurologic Disorders: Yes Internal Medicine - H&P: Meds Aspirin Enteric Coated [Aspirin EC] 81 mg PO DAILY 08/20/15 [History] Metoprolol XL (24 HR) Succ [Toprol Xl] 50 mg PO DAILY #30 tab.er.24h 01/07/16 [ Rx] Insulin Glargine,Hum.rec.anlog [Toujeo Solostar] 45 units SQ HS 06/10/16 [ History] Multivit-Minerals/Folic/Ginkgo [One Daily For Women 50+ Adv Tb] 1 tab PO DAILY 06/10/16 [History] Furosemide [Lasix] 20 mg PO DAILY 10/03/16 [History] Insulin ASPART [Novolog Flexpen] 18 unit SQ TIDWM 10/03/16 [History] Losartan Potassium [Cozaar] 50 mg PO DAILY 10/03/16 [History] Clopidogrel [Plavix] 75 mg PO DAILY 11/03/17 [History] Oxybutynin Chloride [Ditropan Xl] 10 mg PO DAILY 11/03/17 [History] Rosuvastatin Calcium [Rosuvastatin Calcium] 10 mg PO HS 11/03/17 [History] 3 Allergy/AdvReac Type Severity Reaction Status Date / Time venom-honey bee Allergy Severe Swelling Verified 11/03/17 10:53 [bee venom (honey bee)] of Lip/Tongue/Throat Cortisone Allergy Mild Hives Verified 11/03/17 10:53 Penicillins Allergy See Verified 11/03/17 10:53 Comments NSAIDS (Non-Steroidal AdvReac Mild UPSET Verified 11/03/17 10:53 Anti-Inflamma STOMACH cefazolin [From Ancef] AdvReac Hives Verified 11/03/17 10:53 Ujidvpn-Drh-Vtg Reductase AdvReac Muscle Pain Verified 11/03/17 10:53 Inhibitor [Statins] GRAPE FLAVOR Allergy Mild Swelling Uncoded 11/03/17 10:53 of the Eye All Systems PM: A 10-system review of systems was performed and is negative for pertinent findings except as documented above in the HPI. - Constitutional Vitals: Temp Pulse Resp BP Pulse Ox 98.1 F 81 17 130/75 98 11/03/17 14:41 11/03/17 14:41 11/03/17 14:41 11/03/17 14:41 11/03/17 14:41 - Other Additional findings: Skin: Free of rash and discoloration. Eyes: Sclera is white. There is no discharge from eyes. ENMT: Oral/pharyngeal mucosa is normal in appearance. There is no discharge from nose or ears. Respiratory: Normal breath sounds with no crackles and wheezes bilaterally. CV: Heart is regular with no gallop or murmur. GI: Abdomen is flat and soft with no palpable mass or visceromegaly. : There is no tenderness in patient's flanks bilaterally. Neuro exam: He has good strength in upper and lower extremities. He has normal eye movements. Psychiatric: He has normal affect. His thought process is appropriate to the situation. Internal Med - H&P Results - Labs CBC & Chem 7: 11/03/17 11:49 11/03/17 11:49 - Assessment and plan (1) Hematuria Current Visit: Yes Status: Acute Qualifiers: Hematuria type: gross Qualified Code(s): R31.0 - Gross hematuria (2) Nephrolithiasis Current Visit: Yes Status: Acute (3) Type 2 diabetes mellitus Current Visit: Yes Status: Acute Qualifiers: Diabetes mellitus retirement insulin use: with retirement use Diabetes mellitus complication status: with kidney complications Diabetes mellitus complication detail: with chronic kidney disease Chronic kidney disease stage : stage 4 (severe) Qualified Code(s): E11.22 - Type 2 diabetes mellitus with diabetic chronic kidney disease; N18.4 - Chronic kidney disease, stage 4 (severe ); Z79.4 - care home (current) use of insulin (4) Hypertensive renal disease with renal failure Current Visit: Yes Status: Acute (5) CAD (coronary artery disease) Current Visit: No Status: Chronic Qualifiers: Coronary Disease-Associated Artery/Lesion type: [place] artery [place] vs. transplanted heart: [place] heart Associated angina: without angina Qualified Code(s): I25.10 - Atherosclerotic heart disease of [place] coronary artery without angina pectoris (6) Chronic systolic heart failure Current Visit: Yes Status: Acute (7) Debility Current Visit: Yes Status: Acute - Time Spent With Patient Total time spent is greater than 50% in coordination of care (as documented) at patient's floor/unit and/or counseling patient: Greater than 35 minutes (40 minutes)
--- NOTE | 2017-11-03 18:37 | Urology - Consult Note ---
Date of Encounter: 11/03/17 Time of Encounter: 18:35 - Assessment and Plan (1) Hydronephrosis Current Visit: Yes Status: Acute Assessment and plan: Unsure of etiology patient's hydronephrosis. No obvious obstructing lesion or stone at this time. Patient will need follow-up imaging after discharge from hospital. Qualifiers: Hydronephrosis type: unspecified Qualified Code(s): N13.30 - Unspecified hydronephrosis (2) Chronic kidney disease (CKD) Current Visit: Yes Status: Acute Assessment and plan: Patient serum creatinine slightly above baseline. We will see if this improves tomorrow. Qualifiers: Chronic kidney disease stage: unspecified stage Qualified Code(s): N18.9 - Chronic kidney disease, unspecified (3) Hematuria Current Visit: Yes Status: Acute Assessment and plan: Unsure of etiology at this time. Patient's urinalysis was consistent with possible UTI. We will see if culture grows any bacteria. Patient does have a history of having a Yolanda UTI approximately 3 years ago. If culture negative for bacteria may need to consider treating for fungal UTI. Qualifiers: Hematuria type: gross Qualified Code(s): R31.0 - Gross hematuria Urology CN:HPI Consult date: 11/03/17 Reason for consult Urology: Gross Hematuria Requesting physician: Fabio Robles History of present illness: Eleni is a 71-year-old female who presented to the emergency department today secondary to gross hematuria for the past couple days. Patient states that the hematuria comes and goes. She has not seen significant clots. Patient denies any flank pain at this time. Patient was found to have an elevated serum creatinine. This is slightly above patient's baseline. Patient did have a CT scan done upon arrival to the hospital which revealed bilateral hydronephrosis more on the left than the right. No nausea or vomiting. Patient's urinalysis revealed moderate blood and moderate leukocytes. Culture is pending. Past Med Surg Social Fam HX - Past Medical History Medical history: cardiomyopathy, CHF, coronary artery disease, CVA, diabetes, GERD, hyperlipidemia, hypertension, kidney stones, myocardial infarction, peripheral artery disease, renal disease, TIA Additional medical history: renal insufficiency, blood thinner Psychiatric history: depression - Past Surgical History Surgical History: appendectomy, breast surgery, carotid endarterectomy, cholecystectomy, coronary bypass (CABG), hysterectomy, pacemaker/AICD, LE vascular intervention Additional surgical history: cyst removed in left breast, left chest pacer/AICD - Social History Smoking Status: Former smoker Smokeless Tobacco Status: No Alcohol use: none Drug use: none - Family History Mother Living Status: Hx Family Cardiac Disorders: Yes (HTN) Hx Family Endocrine Disorder: Yes (diabetes) Hx Family Neurologic Disorders: Yes (2 strokes) Father Living Status: Hx Family Cardiac Disorders: Yes Hx Family Respiratory Disorders: Yes Hx Family Neurologic Disorders: Yes Medications and Allergies Aspirin Enteric Coated [Aspirin EC] 81 mg PO DAILY 08/20/15 [History] Metoprolol XL (24 HR) Succ [Toprol Xl] 50 mg PO DAILY #30 tab.er.24h 01/07/16 [ Rx] Insulin Glargine,Hum.rec.anlog [Toujeo Solostar] 45 units SQ HS 06/10/16 [ History] Multivit-Minerals/Folic/Ginkgo [One Daily For Women 50+ Adv Tb] 1 tab PO DAILY 06/10/16 [History] Furosemide [Lasix] 20 mg PO DAILY 10/03/16 [History] Insulin ASPART [Novolog Flexpen] 18 unit SQ TIDWM 10/03/16 [History] Losartan Potassium [Cozaar] 50 mg PO DAILY 10/03/16 [History] Clopidogrel [Plavix] 75 mg PO DAILY 11/03/17 [History] Oxybutynin Chloride [Ditropan Xl] 10 mg PO DAILY 11/03/17 [History] Rosuvastatin Calcium [Rosuvastatin Calcium] 10 mg PO HS 11/03/17 [History] 3 Allergy/AdvReac Type Severity Reaction Status Date / Time venom-honey bee Allergy Severe Swelling Verified 11/03/17 10:53 [bee venom (honey bee)] of Lip/Tongue/Throat Cortisone Allergy Mild Hives Verified 11/03/17 10:53 Penicillins Allergy See Verified 11/03/17 10:53 Comments NSAIDS (Non-Steroidal AdvReac Mild UPSET Verified 11/03/17 10:53 Anti-Inflamma STOMACH cefazolin [From Ancef] AdvReac Hives Verified 11/03/17 10:53 Rrvdiqf-Tzi-Xas Reductase AdvReac Muscle Pain Verified 08/02/18 10:53 Inhibitor [Statins] GRAPE FLAVOR Allergy Mild Swelling Uncoded 11/03/17 10:53 of the Eye Review of Systems - Constitutional no chills, no fever(s) - EENT Nose, mouth and throat: no dizziness - Cardiovascular edema, leg edema, no chest pain, no dyspnea - Respiratory no cough, no dyspnea - Gastrointestinal no nausea, no vomiting - Genitourinary Genitourinary: hematuria, no dysuria, no flank pain - Musculoskeletal no back pain, no numbness - Integumentary no erythema - Neurological no confusion, no weakness - Psychiatric no anxiety - Hematologic/Lymphatic no lymphadenopathy - Allergic/Immunologic no wheezing Exam Initial Vital Signs Temp Pulse Resp BP Pulse Ox 98.5 F 85 20 123/53 96 11/03/17 10:53 11/03/17 10:53 11/03/17 10:53 11/03/17 10:53 11/03/17 10:53 General/Neuological: alert and oriented x 3 Eyes: normal pupils, non-icteric Neck: no lymphadenopathy noted, supple to touch CV: Regular rate and rhythm, no JVD Respiratory: Good air movement, no wheezing ABD: soft, nontender, no masses palpated, good bowel sounds Back: no pain on percussion bilaterally Skin: no rashes noted Musculoskeletal: lower extremity edema, minimal movement of lower extremities with good movement of upper extremity. Urology Results - Labs 11/03/17 11:49 11/03/17 11:49 Abnormal lab results RBC 3.71 M/mcL (3.82-4.97) L 11/03/17 11:49 Hgb 10.4 g/dL (11.5-15.4) L 11/03/17 11:49 Hct 33.4 % (35.3-44.9) L 11/03/17 11:49 MCHC 31.1 g/dL (31.6-35.5) L 11/03/17 11:49 RDW 14.6 % (11.5-14.5) H 11/03/17 11:49 Carbon Dioxide 19 mEq/L (23-29) L 11/03/17 11:49 BUN 72 mg/dL (8-23) H 11/03/17 11:49 Creatinine 2.52 mg/dL (0.60-1.20) H 11/03/17 11:49 Est GFR ( Amer) 23 (> 60) L 11/03/17 11:49 Est GFR (Non-Af Amer) 19 (> 60) L 11/03/17 11:49 BUN/Creatinine Ratio 29 (6-26) H 11/03/17 11:49 Glucose 255 mg/dL (70-105) H 11/03/17 11:49 Calculated Osmolality 312 (280-300) H 11/03/17 11:49 AST 11 Units/L (13-39) L 11/03/17 11:49 Albumin 3.3 g/dL (3.5-5.7) L 11/03/17 11:49 Globulin 3.8 g/dL (2.4-3.5) H 11/03/17 11:49 Albumin/Globulin Ratio 0.9 (1.1-2.2) L 11/03/17 11:49 Ur Specimen Adequacy See below A 11/03/17 11:46 Urine Color Red (Yellow) A 11/03/17 11:46 Urine Clarity Cloudy (Clear) A 11/03/17 11:46 Urine Protein >=300 mg/dL (Neg-Trace) H 11/03/17 11:46 Urine Blood Large (Negative) H 11/03/17 11:46 Ur Leukocyte Esterase Moderate (Negative) H 11/03/17 11:46 Ur Culture Indicated? YES (NO) A 11/03/17 11:46 All other labs normal. - Imaging CT scan - abdomen: image reviewed CT scan - pelvis: image reviewed Consult Discharge Plan - Plan Referrals: Wale Lam DO [Primary Care Provider] -
[2017-11-03] MEDS: Insulin LISPRO 300 UNITS/3 ML VIAL SQ SCH ×2 (18:53)
[2017-11-03] MEDS ORDERED: Insulin DETEMIR 100 UNIT/ML X5UNITS SQ SCH (21:00)
--- NOTE | 2017-11-04 07:35 | Urology Progress Note ---
Date of Encounter: 11/04/17 Time of Encounter: 07:34 - Assessment and Plan (1) Hydronephrosis Current Visit: Yes Status: Acute Assessment and plan: Serum creatinine pending. Awaiting results. Qualifiers: Hydronephrosis type: unspecified Qualified Code(s): N13.30 - Unspecified hydronephrosis (2) Chronic kidney disease (CKD) Current Visit: Yes Status: Acute Qualifiers: Chronic kidney disease stage: unspecified stage Qualified Code(s): N18.9 - Chronic kidney disease, unspecified (3) Hematuria Current Visit: Yes Status: Acute Assessment and plan: Awaiting urine culture result. Patient able to void at this time. No catheter need at this time. Qualifiers: Hematuria type: gross Qualified Code(s): R31.0 - Gross hematuria Progress Note Narrative: Patient seen this morning. Patient unsure if her urine has improved in color. Patient able to void well. Patient is voiding frequently. Culture still pending. Objective Initial Vital Signs Temp Pulse Resp BP Pulse Ox 98.5 F 85 20 123/53 96 11/03/17 10:53 11/03/17 10:53 11/03/17 10:53 11/03/17 10:53 11/03/17 10:53 - General physical appearance Present: well developed, well nourished - Abdomen Present: soft. Absent: tender - Psychiatric Present: oriented to time, oriented to person, oriented to place - Labs 11/03/17 11:49 11/03/17 11:49 Consult Discharge Plan - Plan Referrals: Wale Lam DO [Primary Care Provider] -
[2017-11-04] MEDS: Furosemide 20 MG TABLET PO SCH (08:29)
[2017-11-04] MEDS: Multivit/Ca/Min/Fe/FA 1 TAB TABLET PO SCH (08:29)
[2017-11-04] MEDS: Metoprolol XL (24 HR) Succ 50 MG TAB.ER.24H PO SCH (08:29)
[2017-11-04] MEDS: Aspirin Enteric Coated 81 MG Tablet PO SCH (08:29)
[2017-11-04] MEDS: Insulin LISPRO 300 UNITS/3 ML VIAL SQ SCH ×7 (08:30→21:51)
[2017-11-04] MEDS: Acetaminophen 325 MG TABLET PO PRN (11:02)
--- NOTE | 2017-11-04 12:51 | Internal Med Progress Note ---
<Marleen Ko - Last Filed: 11/04/17 13:48> Hospitalist Progress Note - Encounter Date of Encounter: 11/04/17 Time of Encounter: 12:47 - Subjective Interval History: Patient is a 71 yo F with history of CHF with EF of 30% with AICD, CAD, DM Type II, GERD, HTN, HLD, and TIA who presented to the ED on 11/03/17 with complaints of passing large blood clots in her urine. She underwent CT abdomen which revealed bilateral hydronephrosis left greater than right. Patient denies any ongoing abdominal pain or dysuria. She states she thinks her urine contained blood this morning but she did not check. She otherwise denies any back pain, fever, chills. She is concerned about her legs which are chronically infected. - Exam Vitals: Temp Pulse Resp BP Pulse Ox 98.2 F 76 16 124/61 93 11/04/17 07:42 11/04/17 07:42 11/04/17 07:42 11/04/17 07:42 11/04/17 07:42 Exam: General: Conversant, No Apparent Distress, able to speak in full sentences and follow commands Neck: No JVD, trachea midline HEENT: PERRL, normocephalic, atraumatic Cardiac: Reg Rate and Rhythm, Normal S1 and S2, No murmurs appreciated Pulmonary: Normal Breath Sounds, No Wheezes, Rales, or Rhonchi, Not in respiratory distress Abdomen: soft, tontender, no bruits, no guarding Neuro: Alert and responsive, No focal deficits noted Vascular: Normal capillary refill Skin: No rashes noted on visualized skin. Bilateral lower legs bandaged and wrapped for chronic wounds Musculoskeletal: No Chest Wall Tenderness Extremities: No Clubbing, No Cyanosis, No Edema, Normal Pulses Psych: Normal mood, pleasant, conversant - Assessment and Plan (1) Hematuria Current Visit: Yes Status: Acute Assessment and Plan: * Patient denies any active hematuria today. * Urine culture revealed mixed results and was unable to be interpreted, will reorder UA with urine culture via straight catheterization * Patient has history of fungal UTIs, will treat according to urine culture results * Urology following, appreciate their recommendations. (2) Hydronephrosis Current Visit: Yes Status: Acute Assessment and Plan: * Seen bilaterally on CT abdomen left greater than right without any evidence of obstruction * Urology recommends repeat imaging after discharge for further workup (3) Acute kidney injury superimposed on chronic kidney disease Current Visit: No Status: Chronic Assessment and Plan: * Creatinine elevated to 2.52 up from 2.43 * Labs were not drawn today, will repeat tomorrow * While the patient may benefit from IV fluids she also has a EF of 30%, encouraged oral hydration (4) Hypertension Current Visit: No Status: Chronic Assessment and Plan: * Continue on home losartan 50 mg, continue to monitor (5) Type 2 diabetes mellitus Current Visit: Yes Status: Acute Assessment and Plan: * Continues on sliding scale insulin. We will continue to monitor. * Chronic bilateral lower extremity wounds bandaged and wrapped (6) Chronic systolic heart failure Current Visit: Yes Status: Acute Assessment and Plan: * Most recent echo showed an EF of 30% * Encouraging oral hydration to avoid fluid overload. * Continues on Lasix 20 mg (7) CAD (coronary artery disease) Current Visit: No Status: Chronic Assessment and Plan: * Continue on aspirin 81, Plavix 75 mg * Continues on rosuvastating 10mg - Time Spent with Patient Total time spent is greater than 50% in coordination of care (as documented) at patient's floor/unit and/or counseling patient: Internal Medicine: Result - Labs CBC & Chem 7: 11/03/17 11:49 11/03/17 11:49 - ABG Interpretation ABG results: PT/INR, D-dimer PT 12.1 Seconds (9.4-12.1) 11/03/17 11:49 Consult Discharge Plan - Plan Referrals: Wale Lam DO [Primary Care Provider] - <Meghan Sánchez - Last Filed: 11/04/17 15:59> Hospitalist Progress Note - Encounter Date of Encounter: 11/04/17 - Exam Vitals: Temp Pulse Resp BP Pulse Ox 98.8 F 68 17 116/67 94 11/04/17 15:39 11/04/17 15:39 11/04/17 15:39 11/04/17 15:39 11/04/17 15:39 - Time Spent with Patient Total time spent is greater than 50% in coordination of care (as documented) at patient's floor/unit and/or counseling patient: Internal Medicine: Result - Labs CBC & Chem 7: 11/03/17 11:49 11/03/17 11:49 - ABG Interpretation ABG results: PT/INR, D-dimer PT 12.1 Seconds (9.4-12.1) 11/03/17 11:49 - Attending Attestation I have seen and examined this patient independently. I have discussed with resident physician Dr. Darby regarding the management plan. Agree with the documentation. <Marleen Ko - Last Filed: 11/04/17 13:48> (1) Hematuria Qualifiers: Hematuria type: gross Qualified Code(s): R31.0 - Gross hematuria (2) Hydronephrosis Qualifiers: Hydronephrosis type: unspecified Qualified Code(s): N13.30 - Unspecified hydronephrosis (4) Hypertension Qualifiers: Hypertension type: essential hypertension Qualified Code(s): I10 - Essential (primary) hypertension (5) Type 2 diabetes mellitus Qualifiers: Diabetes mellitus mcc insulin use: with oysterman use Diabetes mellitus complication status: with kidney complications Diabetes mellitus complication detail: with chronic kidney disease Chronic kidney disease stage: stage 4 (severe) Qualified Code(s): E11.22 - Type 2 diabetes mellitus with diabetic chronic kidney disease; N18.4 - Chronic kidney disease, stage 4 (severe ); Z79.4 - retirement (current) use of insulin (7) CAD (coronary artery disease) Qualifiers: Coronary Disease-Associated Artery/Lesion type: [place] artery [place] vs. transplanted heart: [place] heart Associated angina: without angina Qualified Code(s): I25.10 - Atherosclerotic heart disease of [place] coronary artery without angina pectoris
[2017-11-04 15:56] LABS: Bilirubin,Urine Negative (Negative); Blood,Urine Large (Negative); Clarity,Urine Turbid (Clear); Glucose,Urine (UA) Normal (Normal); Ketones,Urine Negative (Negative); Leukocyte Esterase,Urine Large (Negative); Nitrite,Urine Negative (Negative); PH,Urine 6.5 pH Units (5.0-8.0); Protein,Urine >=300 mg/dL (Neg-Trace); Specific Gravity,Urine 1.008 (1.010-1.025); Urobilinogen,Urine Normal (Normal)
[2017-11-04 15:59] LABS: Color,Urine Amber (Yellow)
[2017-11-04] MEDS ORDERED: Insulin DETEMIR 100 UNIT/ML X5UNITS SQ SCH (16:00)
[2017-11-04 16:15] LABS: RBC,Urine TNTC per hpf (0-3); WBC,Urine TNTC per hpf (0-3)
[2017-11-04 16:17] LABS: Bacteria,Urine Many per hpf (None-Few)
[2017-11-04] MEDS: Insulin DETEMIR 100 UNIT/ML X5UNITS SQ SCH (21:51)
[2017-11-05 04:50] LABS: Basophils % 0.5 %; Eosinophils # 0.7 K/mcL (0.0-0.6); Eosinophils % 8.3 %; Hemoglobin 10.7 g/dL (11.5-15.4); Immature Granulocytes % 0.7 % (0-4); Lymphocytes # 1.6 K/mcL (0.6-4.6); Lymphocytes % 18.2 %; Mean Corpuscular HGB Conc 32.4 g/dL (31.6-35.5); Mean Corpuscular Hemoglobin 29.2 pg (28.0-33.3); Mean Corpuscular Volume 89.9 fL (83.0-100.0); Mean Platelet Volume 10.3 fL (9.4-12.4); Monocytes # 0.9 K/mcL (0.0-1.3); Monocytes % 10.9 %; Neutrophils # 5.3 K/mcL (1.6-8.9); Platelet Count 303 K/mcL (140-400); Red Blood Count 3.67 M/mcL (3.82-4.97); Red Cell Distribution Width 14.5 % (11.5-14.5); Segmented Neutrophils % 61.4 %
[2017-11-05 05:05] LABS: Potassium 4.3 mEq/L (3.5-5.1)
[2017-11-05] MEDS: Acetaminophen 325 MG TABLET PO PRN (05:17)
[2017-11-05] MEDS: Aspirin Enteric Coated 81 MG Tablet PO SCH (07:50)
[2017-11-05] MEDS: Multivit/Ca/Min/Fe/FA 1 TAB TABLET PO SCH (07:51)
[2017-11-05] MEDS: Metoprolol XL (24 HR) Succ 50 MG TAB.ER.24H PO SCH (07:51)
[2017-11-05] MEDS: Furosemide 20 MG TABLET PO SCH (07:51)
[2017-11-05] MEDS: Insulin LISPRO 300 UNITS/3 ML VIAL SQ SCH ×7 (07:52→21:29)
--- NOTE | 2017-11-05 08:27 | Urology Progress Note ---
Date of Encounter: 11/05/17 Time of Encounter: 08:26 - Assessment and Plan (1) Hydronephrosis Current Visit: Yes Status: Acute Qualifiers: Hydronephrosis type: unspecified Qualified Code(s): N13.30 - Unspecified hydronephrosis (2) Chronic kidney disease (CKD) Current Visit: Yes Status: Acute Qualifiers: Chronic kidney disease stage: unspecified stage Qualified Code(s): N18.9 - Chronic kidney disease, unspecified (3) Hematuria Current Visit: Yes Status: Acute Assessment and plan: Patient unsure if this is resolving. Voiding well at this time. Please call with any further questions. We will sign off at this time. Patient needs follow-up in 3-4 weeks Qualifiers: Hematuria type: gross Qualified Code(s): R31.0 - Gross hematuria Progress Note Narrative: Patient seen this morning. Patient states that she has aches all over. She is unsure if she is still passing clots. Urine culture was mixed. Awaiting repeat culture Objective Initial Vital Signs Temp Pulse Resp BP Pulse Ox 98.5 F 85 20 123/53 96 11/03/17 10:53 11/03/17 10:53 11/03/17 10:53 11/03/17 10:53 11/03/17 10:53 - General physical appearance Present: well developed, no distress - Respiratory Present: normal expansion, normal respiratory effort - Abdomen Present: soft. Absent: tender - Labs 11/05/17 04:34 11/05/17 04:34 Diabetes panel 11/05/17 Range/Units 04:34 Sodium 138 (136-145) mEq/L Potassium 4.3 (3.5-5.1) mEq/L Chloride 109 H (98-107) mEq/L Carbon Dioxide 20 L (23-29) mEq/L BUN 63 H (8-23) mg/dL Creatinine 2.45 H (0.60-1.20) mg/dL Glucose 204 H (70-105) mg/dL Calcium 9.0 (8.6-10.3) mg/dL Calcium panel 11/05/17 Range/Units 04:34 Calcium 9.0 (8.6-10.3) mg/dL Pituitary panel 11/05/17 Range/Units 04:34 Sodium 138 (136-145) mEq/L Potassium 4.3 (3.5-5.1) mEq/L Chloride 109 H (98-107) mEq/L Carbon Dioxide 20 L (23-29) mEq/L BUN 63 H (8-23) mg/dL Creatinine 2.45 H (0.60-1.20) mg/dL Glucose 204 H (70-105) mg/dL Calcium 9.0 (8.6-10.3) mg/dL Adrenal panel 11/05/17 Range/Units 04:34 Sodium 138 (136-145) mEq/L Potassium 4.3 (3.5-5.1) mEq/L Chloride 109 H (98-107) mEq/L Carbon Dioxide 20 L (23-29) mEq/L BUN 63 H (8-23) mg/dL Creatinine 2.45 H (0.60-1.20) mg/dL Glucose 204 H (70-105) mg/dL Calcium 9.0 (8.6-10.3) mg/dL Consult Discharge Plan - Plan Referrals: Wale Lam DO [Primary Care Provider] -
--- NOTE | 2017-11-05 11:29 | Internal Med Progress Note ---
Hospitalist Progress Note - Encounter Date of Encounter: 11/05/17 Time of Encounter: 09:00 - Subjective Interval History: Patient feels generalized weak. Complain of burning on urination. Denies fever , nausea, or flank pain. - Exam Vitals: Temp Pulse Resp BP Pulse Ox 98.5 F 69 18 126/66 95 11/05/17 11:05 11/05/17 11:05 11/05/17 11:05 11/05/17 11:05 11/05/17 11:05 Exam: Patient is awake alert, oriented 3, in no acute distress. HEENT: NC/AT, PERRL Neck: Supple, no LAD Lungs: CTA, no wheezing Heart: S1S2, RRR Abd: Soft, NT, BS normal. Ext: ROM wnl, mild b/l pedal edema Neuro: AAO x 3, no focal neuro deficit - Assessment and Plan (1) Chronic kidney disease (CKD) Current Visit: Yes Status: Acute Assessment and Plan: Creatinine level is generally at baseline. Continue closely monitor renal function. Avoid nephrotoxic medications. (2) Hematuria Current Visit: Yes Status: Acute Assessment and Plan: Probably due to UTI. Urology was consulted. Recommended follow-up as outpatient with urology. Patient complaining of burning today, UA shows increased WBC. Will start Cipro by mouth. Urine culture is pending (3) Hydronephrosis Current Visit: Yes Status: Acute Assessment and Plan: Urology saw patient. Follow-up as outpatient (4) Nephrolithiasis Current Visit: Yes Status: Acute Assessment and Plan: No flank pain. Minimal non obstructive. Continue outpatient follow-up with urology (5) Type 2 diabetes mellitus Current Visit: Yes Status: Acute Assessment and Plan: Continue basal and sliding scale insulin coverage. (6) DVT prophylaxis Current Visit: No Status: Acute Assessment and Plan: EPCDs (7) CAD (coronary artery disease) Current Visit: No Status: Chronic Assessment and Plan: Denies chest pain. Continue home medications aspirin, Plavix, metoprolol, and statin (8) Morbid obesity with BMI of 40.0-44.9, adult Current Visit: No Status: Chronic Assessment and Plan: Need lifestyle modification as outpatient (9) UTI (urinary tract infection) Current Visit: No Status: Acute Assessment and Plan: uncomplicated UTI, started the Cipro by mouth. Follow-up urine culture. (10) Debility Current Visit: Yes Status: Acute Assessment and Plan: PTOT is on case, recommend ECF discharge. humidifier maintenance worker is working on placement. Continue PTOT as patient in hospital - Summary of Assessment and Plan Summary of Assessment and Plan: Patient was admitted as hematuria and bilateral hydronephrosis. Urology saw patient, no specific treatment at this point, recommend follow-up as outpatient. Patient is generally weak, PTOT recommend ECF discharge, social worker clinical is working on placement. - Time Spent with Patient Total time spent is greater than 50% in coordination of care (as documented) at patient's floor/unit and/or counseling patient: 40 minutes Greater than 35 minutes Plan of Care Discussed with: patient Internal Medicine: Result - Labs CBC & Chem 7: 11/05/17 04:34 11/05/17 04:34 Labs: Short CBC 11/05/17 Range/Units 04:34 WBC 8.6 (4.3-11.1) K/mcL Hgb 10.7 L (11.5-15.4) g/dL Hct 33.0 L (35.3-44.9) % Plt Count 303 (140-400) K/mcL Neutrophils # 5.3 (1.6-8.9) K/mcL BMP 11/05/17 04:34 Sodium 138 Potassium 4.3 Chloride 109 H Carbon Dioxide 20 L BUN 63 H Creatinine 2.45 H Glucose 204 H Calcium 9.0 Urine 11/04/17 Range/Units 15:51 Urine Color [place] A (Yellow) Urine Clarity Turbid A (Clear) Urine pH 6.5 (5.0-8.0) pH Units Ur Specific [place] 1.008 L (1.010-1.025) Urine Protein >=300 H (Neg-Trace) mg/dL Urine Glucose (UA) Normal (Normal) mg/dL - ABG Interpretation ABG results: PT/INR, D-dimer PT 12.1 Seconds (9.4-12.1) 11/03/17 11:49 Consult Discharge Plan - Plan Referrals: Wale Lam DO [Primary Care Provider] - (1) Chronic kidney disease (CKD) Qualifiers: Chronic kidney disease stage: stage 4 (severe) Qualified Code(s): N18.4 - Chronic kidney disease, stage 4 (severe) (2) Hematuria Qualifiers: Hematuria type: gross Qualified Code(s): R31.0 - Gross hematuria (3) Hydronephrosis Qualifiers: Hydronephrosis type: unspecified Qualified Code(s): N13.30 - Unspecified hydronephrosis (5) Type 2 diabetes mellitus Qualifiers: Diabetes mellitus residential insulin use: with predatory animal exterminator use Diabetes mellitus complication status: with kidney complications Diabetes mellitus complication detail: with chronic kidney disease Chronic kidney disease stage: stage 4 (severe) Qualified Code(s): E11.22 - Type 2 diabetes mellitus with diabetic chronic kidney disease; N18.4 - Chronic kidney disease, stage 4 (severe ); Z79.4 - [facility] (current) use of insulin (7) CAD (coronary artery disease) Qualifiers: Coronary Disease-Associated Artery/Lesion type: [place] artery [place] vs. transplanted heart: [place] heart Associated angina: without angina Qualified Code(s): I25.10 - Atherosclerotic heart disease of [place] coronary artery without angina pectoris (9) UTI (urinary tract infection) Qualifiers: Urinary tract infection type: acute cystitis Hematuria presence: with hematuria Qualified Code(s): N30.01 - Acute cystitis with hematuria
[2017-11-05] MEDS: Insulin DETEMIR 100 UNIT/ML X5UNITS SQ SCH (21:29)
[2017-11-06 04:42] LABS: Basophils % 0.4 %; Eosinophils # 0.7 K/mcL (0.0-0.6); Eosinophils % 7.7 %; Hematocrit 32.4 % (35.3-44.9); Hemoglobin 10.1 g/dL (11.5-15.4); Immature Granulocytes % 0.6 % (0-4); Lymphocytes # 1.5 K/mcL (0.6-4.6); Lymphocytes % 15.9 %; Mean Corpuscular HGB Conc 31.2 g/dL (31.6-35.5); Mean Corpuscular Hemoglobin 27.7 pg (28.0-33.3); Monocytes % 10.2 %; Neutrophils # 6.3 K/mcL (1.6-8.9); Platelet Count 335 K/mcL (140-400); Red Blood Count 3.64 M/mcL (3.82-4.97); Red Cell Distribution Width 14.5 % (11.5-14.5); Segmented Neutrophils % 65.2 %
[2017-11-06 05:03] LABS: Calcium 9.1 mg/dL (8.6-10.3); Potassium 4.1 mEq/L (3.5-5.1)
[2017-11-06] MEDS: Metoprolol XL (24 HR) Succ 50 MG TAB.ER.24H PO SCH (09:37)
[2017-11-06] MEDS: Insulin LISPRO 300 UNITS/3 ML VIAL SQ SCH ×7 (09:38→19:43)
[2017-11-06] MEDS: Aspirin Enteric Coated 81 MG Tablet PO SCH (09:38)
[2017-11-06] MEDS: Multivit/Ca/Min/Fe/FA 1 TAB TABLET PO SCH (09:38)
[2017-11-06] MEDS: Furosemide 20 MG TABLET PO SCH (09:38)
--- NOTE | 2017-11-06 11:00 | Internal Med Progress Note ---
Hospitalist Progress Note - Encounter Date of Encounter: 11/06/17 Time of Encounter: 09:00 - Subjective Interval History: Patient feels generalized weak. No burning on urination anymore. Denies fever , nausea, or flank pain. - Exam Vitals: Temp Pulse Resp BP Pulse Ox 98.8 F 71 18 151/74 95 11/06/17 07:06 11/06/17 07:06 11/06/17 07:06 11/06/17 07:06 11/06/17 07:06 Exam: Pt is AAO x 3, in NAD HEENT: AC/NT, PERRL Neck: Supple, no LAD Lungs: CTA b/l Heart: S1S2, RRR Abd: Soft, NT, normal BS Ext: ROM wnl, No pedal edema. Neuro: AAO x 3, no focal deficit. - Assessment and Plan (1) Chronic kidney disease (CKD) Current Visit: Yes Status: Acute Assessment and Plan: Creatinine level is generally at baseline. Continue closely monitor renal function. Avoid nephrotoxic medications. (2) Hematuria Current Visit: Yes Status: Acute Assessment and Plan: Probably due to UTI. Urology was consulted. Recommended follow-up as outpatient with urology. Patient complaining of burning , UA shows increased WBC. Cipro by mouth started, will finish 3 day course. Urine culture is pending (3) Hydronephrosis Current Visit: Yes Status: Acute Assessment and Plan: Urology saw patient. Follow-up as outpatient (4) Nephrolithiasis Current Visit: Yes Status: Acute Assessment and Plan: No flank pain. Minimal non obstructive. Continue outpatient follow-up with urology (5) Type 2 diabetes mellitus Current Visit: Yes Status: Acute Assessment and Plan: Continue basal and sliding scale insulin coverage. (6) DVT prophylaxis Current Visit: No Status: Acute Assessment and Plan: EPCDs (7) CAD (coronary artery disease) Current Visit: No Status: Chronic Assessment and Plan: Denies chest pain. Continue home medications aspirin, Plavix, metoprolol, and statin (8) Morbid obesity with BMI of 40.0-44.9, adult Current Visit: No Status: Chronic Assessment and Plan: Need lifestyle modification as outpatient (9) UTI (urinary tract infection) Current Visit: No Status: Acute Assessment and Plan: uncomplicated UTI, started the Cipro by mouth. Follow-up urine culture. (10) Debility Current Visit: Yes Status: Acute Assessment and Plan: PTOT is on case, recommend ECF discharge. fish hatchery worker is working on placement. Continue PTOT as patient in hospital - Summary of Assessment and Plan Summary of Assessment and Plan: Patient was admitted as hematuria and bilateral hydronephrosis. Urology saw patient, no specific treatment at this point, recommend follow-up as outpatient. Patient is generally weak, PTOT recommend ECF discharge, social insurance specialist is working on placement. Medically ready to DC to ECF. - Time Spent with Patient Total time spent is greater than 50% in coordination of care (as documented) at patient's floor/unit and/or counseling patient: 40 min Greater than 35 minutes Plan of Care Discussed with: patient Internal Medicine: Result - Labs CBC & Chem 7: 11/06/17 04:25 11/06/17 04:25 Labs: Short CBC 11/06/17 Range/Units 04:25 WBC 9.6 (4.3-11.1) K/mcL Hgb 10.1 L (11.5-15.4) g/dL Hct 32.4 L (35.3-44.9) % Plt Count 335 (140-400) K/mcL Neutrophils # 6.3 (1.6-8.9) K/mcL BMP 11/06/17 04:25 Sodium 139 Potassium 4.1 Chloride 110 H Carbon Dioxide 21 L BUN 56 H Creatinine 2.13 H Glucose 149 H Calcium 9.1 - ABG Interpretation ABG results: PT/INR, D-dimer PT 12.1 Seconds (9.4-12.1) 11/03/17 11:49 Consult Discharge Plan - Plan Referrals: Wale Lam DO [Primary Care Provider] - (1) Chronic kidney disease (CKD) Qualifiers: Chronic kidney disease stage: stage 4 (severe) Qualified Code(s): N18.4 - Chronic kidney disease, stage 4 (severe) (2) Hematuria Qualifiers: Hematuria type: gross Qualified Code(s): R31.0 - Gross hematuria (3) Hydronephrosis Qualifiers: Hydronephrosis type: unspecified Qualified Code(s): N13.30 - Unspecified hydronephrosis (5) Type 2 diabetes mellitus Qualifiers: Diabetes mellitus fpc insulin use: with fpc use Diabetes mellitus complication status: with kidney complications Diabetes mellitus complication detail: with chronic kidney disease Chronic kidney disease stage: stage 4 (severe) Qualified Code(s): E11.22 - Type 2 diabetes mellitus with diabetic chronic kidney disease; N18.4 - Chronic kidney disease, stage 4 (severe ); Z79.4 - intermediate designer (current) use of insulin (7) CAD (coronary artery disease) Qualifiers: Coronary Disease-Associated Artery/Lesion type: [place] artery [place] vs. transplanted heart: [place] heart Associated angina: without angina Qualified Code(s): I25.10 - Atherosclerotic heart disease of [place] coronary artery without angina pectoris (9) UTI (urinary tract infection) Qualifiers: Urinary tract infection type: acute cystitis Hematuria presence: with hematuria Qualified Code(s): N30.01 - Acute cystitis with hematuria
[2017-11-06] MEDS: Acetaminophen 325 MG TABLET PO PRN (20:11)
[2017-11-06] MEDS: Insulin DETEMIR 100 UNIT/ML X5UNITS SQ SCH (20:12)
[2017-11-06] MEDS: Nystatin POWDER 30 GM BOTTLE TP SCH (20:14)
[2017-11-07] MEDS: Multivit/Ca/Min/Fe/FA 1 TAB TABLET PO SCH (08:23)
[2017-11-07] MEDS: Furosemide 20 MG TABLET PO SCH (08:23)
[2017-11-07] MEDS: Aspirin Enteric Coated 81 MG Tablet PO SCH (08:23)
[2017-11-07] MEDS: Metoprolol XL (24 HR) Succ 50 MG TAB.ER.24H PO SCH (08:23)
[2017-11-07] MEDS: Nystatin POWDER 30 GM BOTTLE TP SCH ×2 (08:23→20:21)
[2017-11-07] MEDS: Insulin LISPRO 300 UNITS/3 ML VIAL SQ SCH ×7 (08:24→20:22)
--- NOTE | 2017-11-07 11:30 | Discharge Summary ---
<Marleen Ko - Last Filed: 11/07/17 13:24> - NOTES TO OUTPATIENT PROVIDER Notes to Outpatient Provider: ended cipro for UTI 11/07/17, to follow up with urology in 3-4 weeks due to hydronephrosis Date of Encounter: 11/07/17 Time of Encounter: 11:27 - Discharge Diagnosis (1) Hematuria Priority: Primary Status: Acute Qualifiers: Hematuria type: gross Qualified Code(s): R31.0 - Gross hematuria (2) Hydronephrosis Priority: Secondary Status: Acute Qualifiers: Hydronephrosis type: unspecified Qualified Code(s): N13.30 - Unspecified hydronephrosis (3) Acute kidney injury superimposed on chronic kidney disease Priority: Secondary Status: Chronic (4) Hypertension Priority: Secondary Status: Chronic Qualifiers: Hypertension type: essential hypertension Qualified Code(s): I10 - Essential (primary) hypertension (5) Type 2 diabetes mellitus Priority: Secondary Status: Acute Qualifiers: Diabetes mellitus prison insulin use: with prison use Diabetes mellitus complication status: with kidney complications Diabetes mellitus complication detail: with chronic kidney disease Chronic kidney disease stage : stage 4 (severe) Qualified Code(s): E11.22 - Type 2 diabetes mellitus with diabetic chronic kidney disease; N18.4 - Chronic kidney disease, stage 4 (severe ); Z79.4 - manager intermediate (current) use of insulin (6) Chronic systolic heart failure Priority: Secondary Status: Acute (7) CAD (coronary artery disease) Priority: Secondary Status: Chronic Qualifiers: Coronary Disease-Associated Artery/Lesion type: [place] artery [place] vs. transplanted heart: [place] heart Associated angina: without angina Qualified Code(s): I25.10 - Atherosclerotic heart disease of [place] coronary artery without angina pectoris Hospital course: Ms. Bentley is a 71 year old female who presented to the emergenc department on with complaints of abdominal pain and large volume hematuria visualized by her . CT abdomen revealed evidence of nephrolithiasis and hydronephrosis without evidence of obstruction. She also had an TENISHA with creatinine elevated to 2.52 which has since improved with oral rehydration. Since admission she underwent UA with culture to rule out pyelonephritis but this was contaminated; repeated culture was negative. Patient finished a three day course of ciprofloxacin 250mg BID for uncomplicated UTI. Patient was found to be debilitated and PT/OT evaluations recommended discharge to [facility] but the patient adamently refuses to go to such a facility. She will be sent home with home health care. She is to follow up with urology for further evaluation of hydronephrosis in 3-4 weeks. Return precauations given including fever, chills, light-headedness, dizziness, abdominal pain, or continued hematuria.The patient agrees with and understands the course of treatment including plan for discharge and follow up. All questions answered. Discharge discussed with: patient - Time Spent with Patient Total time spent providing and/or coordinating discharge services: Greater than 30 minutes - Discharge Medications Home Medications: Aspirin Enteric Coated [Aspirin EC] 81 mg PO DAILY 08/20/15 [History] Metoprolol XL (24 HR) Succ [Toprol Xl] 50 mg PO DAILY #30 tab.er.24h 01/07/16 [ Rx] Insulin Glargine,Hum.rec.anlog [Toujeo Solostar] 45 units SQ HS 06/10/16 [ History] Multivit-Minerals/Folic/Ginkgo [One Daily For Women 50+ Adv Tb] 1 tab PO DAILY 06/10/16 [History] Furosemide [Lasix] 20 mg PO DAILY 10/03/16 [History] Insulin ASPART [Novolog Flexpen] 18 unit SQ TIDWM 10/03/16 [History] Losartan Potassium [Cozaar] 50 mg PO DAILY 10/03/16 [History] Clopidogrel [Plavix] 75 mg PO DAILY 11/03/17 [History] Oxybutynin Chloride [Ditropan Xl] 10 mg PO DAILY 11/03/17 [History] Rosuvastatin Calcium [Rosuvastatin Calcium] 10 mg PO HS 11/03/17 [History] Allergies/Adverse Reactions: 3 Allergy/AdvReac Type Severity Reaction Status Date / Time venom-honey bee Allergy Severe Swelling Verified 11/03/17 10:53 [bee venom (honey bee)] of Lip/Tongue/Throat Cortisone Allergy Mild Hives Verified 11/03/17 10:53 Penicillins Allergy See Verified 11/03/17 10:53 Comments NSAIDS (Non-Steroidal AdvReac Mild UPSET Verified 11/03/17 10:53 Anti-Inflamma STOMACH cefazolin [From Ancef] AdvReac Hives Verified 11/03/17 10:53 Glbiajm-Ihw-Urm Reductase AdvReac Muscle Pain Verified 11/03/17 10:53 Inhibitor [Statins] GRAPE FLAVOR Allergy Mild Swelling Uncoded 11/03/17 10:53 of the Eye Date of admission: 11/03/17 13:36 Primary care physician: Wale Lam DO Consults: 11/03/17 15:31 Consult to Physical Therapy [CONS] Routine Comment: Evaluate, develop and implement POC Reason for Consult: NEEDS PHYSICAL THERAPY FOR GAIT TRAINING/ CONDITIONING.. Does patient have active BEDREST order?: No Is patient medically & hemodynamically stable?: Yes Patient assessed for mobility or mobilized this visit?: No Consult to Joss House Keeper [CONS] Routine Reason for SW Consult: NEEDS ECF FOR CONDITIONING AT DISCHARGE.. 11/04/17 10:36 Consult to Occupational Therapy [CONS] Routine Comment: Evaluate, develop and implement POC Reason for Consult: Gait, discharge planning Does patient have active BEDREST order?: No Is patient medically & hemodynamically stable?: Yes 11/06/17 15:15 Consult to Wound Care [CONS] Routine Reason for Consult: blisters to lower legs, excoriation to groin area Call Completed: No Discharging clinician: Marleen Ko Anticipated date of discharge: 11/07/17 - Constitutional Vitals: Temp Pulse Resp BP Pulse Ox 98.2 F 69 18 121/71 94 11/07/17 10:53 11/07/17 10:53 11/07/17 10:53 11/07/17 10:53 11/07/17 10:53 General appearance: Present: A&O X 3, pleasant, no acute distress, obese, answers questions appropriately - Eye Eye exam: Present: PERRL, conjuntiva pink, sclera anicteric - Respiratory Respiratory exam: Present: CTAB. Absent: accessory muscle use, rales, rhonchi, wheezes - Cardiovascular Cardiovascular exam: Present: RRR, +S1, +S2. Absent: diastolic murmur, gallop, rubs, systolic murmur - GI/Abdominal GI/Abdominal exam: Present: normal bowel sounds, soft, no peritoneal signs. Absent: distended, tenderness - Extremities Exam Additional comments: warmth and erythematous, wrapped in gauze and [place] bandage. bilateral feet with toe amputations - Psychiatric Psychiatric exam: Present: normal affect. Absent: agitated, anxious - Patient Status Disposition: Home Health Service Condition: Fair Functional capacity at discharge: wheelchair bound Overall status at discharge: patient is progressing back to baseline - Discharge Instructions Instructions: Urinary Tract Infection in Women (DC) Follow Up With: Wale Lam DO [Primary Care Provider] - [facility] [Provider Group] Additional Instructions: - Please follow up with your primary care physician within the next week for further evaluation after hospitalization. - -Follow up with urology within the next 3-4 weeks. - Please participate in home health care. - Diet and Activity Activity: as per physical therapy Diet: advance to your usual diet, diabetic diet <GonzaloMeghan - Last Filed: 11/07/17 17:17> Date of Encounter: 11/07/17 - Discharge Diagnosis (1) Chronic kidney disease (CKD) Status: Acute Qualifiers: Chronic kidney disease stage: stage 4 (severe) Qualified Code(s): N18.4 - Chronic kidney disease, stage 4 (severe) (2) Hematuria Status: Acute Qualifiers: Hematuria type: gross Qualified Code(s): R31.0 - Gross hematuria (3) Hydronephrosis Status: Acute Qualifiers: Hydronephrosis type: unspecified Qualified Code(s): N13.30 - Unspecified hydronephrosis (4) Nephrolithiasis Status: Acute (5) Type 2 diabetes mellitus Status: Acute Qualifiers: Diabetes mellitus prison insulin use: with prison use Diabetes mellitus complication status: with kidney complications Diabetes mellitus complication detail: with chronic kidney disease Chronic kidney disease stage : stage 4 (severe) Qualified Code(s): E11.22 - Type 2 diabetes mellitus with diabetic chronic kidney disease; N18.4 - Chronic kidney disease, stage 4 (severe ); Z79.4 - manager intermediate (current) use of insulin (6) DVT prophylaxis Status: Acute (7) CAD (coronary artery disease) Status: Chronic Qualifiers: Coronary Disease-Associated Artery/Lesion type: [place] artery [place] vs. transplanted heart: [place] heart Associated angina: without angina Qualified Code(s): I25.10 - Atherosclerotic heart disease of [place] coronary artery without angina pectoris (8) Morbid obesity with BMI of 40.0-44.9, adult Status: Chronic (9) UTI (urinary tract infection) Status: Acute Qualifiers: Urinary tract infection type: acute cystitis Hematuria presence: with hematuria Qualified Code(s): N30.01 - Acute cystitis with hematuria (10) Debility Status: Acute Hospital course: Ms. Bentley is a 71 year old female - Time Spent with Patient Total time spent providing and/or coordinating discharge services: Date of admission: 11/03/17 13:36 Primary care physician: Wale Lam, Consults: 11/03/17 15:31 Consult to Physical Therapy [CONS] Routine Comment: Evaluate, develop and implement POC Reason for Consult: NEEDS PHYSICAL THERAPY FOR GAIT TRAINING/ CONDITIONING.. Does patient have active BEDREST order?: No Is patient medically & hemodynamically stable?: Yes Patient assessed for mobility or mobilized this visit?: No Consult to Joss House Keeper [CONS] Routine Reason for SW Consult: NEEDS ECF FOR CONDITIONING AT DISCHARGE.. 11/04/17 10:36 Consult to Occupational Therapy [CONS] Routine Comment: Evaluate, develop and implement POC Reason for Consult: Gait, discharge planning Does patient have active BEDREST order?: No Is patient medically & hemodynamically stable?: Yes 11/06/17 15:15 Consult to Wound Care [CONS] Routine Reason for Consult: blisters to lower legs, excoriation to groin area Call Completed: No - Constitutional Vitals: Temp Pulse Resp BP Pulse Ox 98.4 F 74 18 125/73 93 11/07/17 15:49 11/07/17 15:49 11/07/17 15:49 11/07/17 15:49 11/07/17 15:49 - Attending Attestation I have seen and examined this patient independently. I have discussed with the resident physician Dr. Darby regarding the discharge and folloe-up plan. Agree with the documentation.
--- NOTE | 2017-11-07 12:42 | Physician Discharge Referral ---
Home Health/Hosp Referral Info Transfer to: Home Health Provider in Charge Post Discharge: PCP - Diagnosis (1) Chronic kidney disease (CKD) Priority: Secondary Status: Acute (2) Hematuria Priority: Primary Status: Acute (3) Hydronephrosis Priority: Primary Status: Acute (4) Nephrolithiasis Priority: Secondary Status: Acute (5) Type 2 diabetes mellitus Priority: Secondary Status: Acute (6) DVT prophylaxis Priority: Secondary Status: Acute (7) CAD (coronary artery disease) Priority: Secondary Status: Chronic (8) Morbid obesity with BMI of 40.0-44.9, adult Priority: Secondary Status: Chronic (9) UTI (urinary tract infection) Priority: Primary Status: Acute (10) Debility Priority: Secondary Status: Acute - Respiratory Orders Smoking Cessation: Smoking cessation has been advised. For more information, call the [place] Tobacco Quit Line at 4-292-WHMW-NOW. - Diet/Nutrition Diet/Nutrition Orders: No Concentrated Sweets (DM diet) - Activity Activity Orders: Walker - Services Needed Following services are medically necessary services: Nursing, Home Health Aide, Physical Therapy, Occupational Therapy - Transfer Medications Home Medications: Aspirin Enteric Coated [Aspirin EC] 81 mg PO DAILY 08/20/15 [History] Metoprolol XL (24 HR) Succ [Toprol Xl] 50 mg PO DAILY #30 tab.er.24h 01/07/16 [ Rx] Insulin Glargine,Hum.rec.anlog [Toujeo Solostar] 45 units SQ HS 06/10/16 [ History] Multivit-Minerals/Folic/Ginkgo [One Daily For Women 50+ Adv Tb] 1 tab PO DAILY 06/10/16 [History] Furosemide [Lasix] 20 mg PO DAILY 10/03/16 [History] Insulin ASPART [Novolog Flexpen] 18 unit SQ TIDWM 10/03/16 [History] Losartan Potassium [Cozaar] 50 mg PO DAILY 10/03/16 [History] Clopidogrel [Plavix] 75 mg PO DAILY 11/03/17 [History] Oxybutynin Chloride [Ditropan Xl] 10 mg PO DAILY 11/03/17 [History] Rosuvastatin Calcium [Rosuvastatin Calcium] 10 mg PO HS 11/03/17 [History] Allergies/Adverse Reactions: 3 Allergy/AdvReac Type Severity Reaction Status Date / Time venom-honey bee Allergy Severe Swelling Verified 11/03/17 10:53 [bee venom (honey bee)] of Lip/Tongue/Throat Cortisone Allergy Mild Hives Verified 11/03/17 10:53 Penicillins Allergy See Verified 11/03/17 10:53 Comments NSAIDS (Non-Steroidal AdvReac Mild UPSET Verified 11/03/17 10:53 Anti-Inflamma STOMACH cefazolin [From Ancef] AdvReac Hives Verified 11/03/17 10:53 Wcpcqaz-Inn-Euo Reductase AdvReac Muscle Pain Verified 11/03/17 10:53 Inhibitor [Statins] GRAPE FLAVOR Allergy Mild Swelling Uncoded 11/03/17 10:53 of the Eye Certification: Further, I certify that my clinical findings support that this patient is homebound (i.e. absences from home require considerable and taxing effort and are for medical reasons or denominational services or infrequently or short duration when for other reasons) because: Homebound Reason: Patient requires assistance of a person or device to safely leave home Attestation: My signature below is to certify that this patient is under my care and that I, or nurse practitioner, or a physician's sound assistant working with me, has a face-to -face encounter with this patient.
[2017-11-07] MEDS: Insulin DETEMIR 100 UNIT/ML X5UNITS SQ SCH (20:19)
[2017-11-07] MEDS: Acetaminophen 325 MG TABLET PO PRN (20:19)
--- NOTE | 2017-11-08 08:31 | Internal Med Progress Note ---
Hospitalist Progress Note - Encounter Date of Encounter: 11/08/17 Time of Encounter: 08:31 - Subjective Interval History: Patient seen and examined at bedside. Patient overnight events. Patient was discharged yesterday, however is awaiting placement. He initially refused ECF placement and was discharged home with home health care however states that she is going to a fpc now. We will clarify with case management and social work. Patient denies any chest pain, shortness of breath, nausea, vomiting, diarrhea. Patient has been afebrile. - Exam Vitals: Temp Pulse Resp BP Pulse Ox 98.8 F 71 18 159/73 93 11/08/17 07:46 11/08/17 07:46 11/08/17 07:46 11/08/17 07:46 11/08/17 07:46 Exam: Constitutional: No acute distress, Alert Psych: AAO x 3 Neck: supple, no JVD Cardio: regular rate and rhythm, +s1s2, no murmurs/rubs/gallops Resp: clear to ascultation bilaterally, no wheezes/rales/ronchi Abd: soft, non tender/non distended, positive bowel sounds, no gaurding/reboud/ ridgitity Extremities: Patient with amputated toes, patient was wrapped bilateral lower extremities and gauze and [place] bandage, gauze appears to be dry and clean, patient can move her lower extremities symmetrically, there is no significant erythema extending from the dressings Neuro: no focal deficits appreciated Lymph: no cervical/supraclavicular adenopahty apprecitated - Assessment and Plan (1) Hydronephrosis Current Visit: Yes Status: Acute Assessment and Plan: Urology evaluated patient in hospital. -Urology recommended outpatient follow-up in 3-4 weeks -Patient understands this plan (2) Chronic kidney disease (CKD) Current Visit: Yes Status: Acute Assessment and Plan: Serum creatinine appears to be between 2.0-2.8 in 2018 -Serum creatinine improved from admission from 2.43 to 2.13 -Avoid nephrotoxic medications -We will have outpatient urology follow-up regarding hydronephrosis (3) UTI (urinary tract infection) Current Visit: No Status: Acute Assessment and Plan: uncomplicated UTI -s/p cipro rx (4) CAD (coronary artery disease) Current Visit: No Status: Chronic Assessment and Plan: Continue home medications aspirin, Plavix, metoprolol, and statin (5) Hematuria Current Visit: Yes Status: Acute Assessment and Plan: Probably due to UTI -Urology recommended Recommended follow-up as outpatient in 3-4 weeks -Patient completed a three-day course of ciprofloxacin -Patient states that she believes her hematuria is resolved (6) Morbid obesity with BMI of 40.0-44.9, adult Current Visit: No Status: Chronic Assessment and Plan: Counseled on lifestyle modification (7) Nephrolithiasis Current Visit: Yes Status: Acute Assessment and Plan: No flank pain. -non obstructive and imaging suggestive of tiny stones -outpatient follow-up with urology in 3-4 weeks (8) Type 2 diabetes mellitus Current Visit: Yes Status: Acute Assessment and Plan: Continue basal and sliding scale insulin coverage. (9) Debility Current Visit: Yes Status: Acute Assessment and Plan: -Patient initially declined ECF placement and was discharged with home health care and is awaiting placement -Patient states that she is going to fpc -We will clarify with case management social work -Stable for discharge home with home health care or to ECF; patient would likely benefit more from ECF placement -continue PT OT while in hospital (10) DVT prophylaxis Current Visit: No Status: Acute Assessment and Plan: EPCDs, subcutaneous heparin DVT Prophylaxis: hep sq - Summary of Assessment and Plan Summary of Assessment and Plan: Patient was discharged on 11/07/2017 is occurring currently awaiting placement. Patient is stable for discharge. Will discuss with social work and case management if patient is going to ECF or home with home health care. She will follow up with urology as an outpatient in 3-4 weeks. Patient will follow-up with her primary care physician within one week. - Time Spent with Patient Total time spent is greater than 50% in coordination of care (as documented) at patient's floor/unit and/or counseling patient: less than 15 minutes Plan of Care Discussed with: patient Internal Medicine: Result - Labs CBC & Chem 7: 11/06/17 04:25 11/06/17 04:25 - ABG Interpretation ABG results: PT/INR, D-dimer PT 12.1 Seconds (9.4-12.1) 11/03/17 11:49 Consult Discharge Plan - Plan Instructions: Urinary Tract Infection in Women (DC) Additional Instructions: - Please follow up with your primary care physician within the next week for further evaluation after hospitalization. - -Follow up with urology within the next 3-4 weeks. - Please participate in home health care. Referrals: [facility] [Provider Group] Wale Lam DO [Primary Care Provider] - (1) Hydronephrosis Qualifiers: Hydronephrosis type: unspecified Qualified Code(s): N13.30 - Unspecified hydronephrosis (2) Chronic kidney disease (CKD) Qualifiers: Chronic kidney disease stage: stage 4 (severe) Qualified Code(s): N18.4 - Chronic kidney disease, stage 4 (severe) (3) UTI (urinary tract infection) Qualifiers: Urinary tract infection type: acute cystitis Hematuria presence: with hematuria Qualified Code(s): N30.01 - Acute cystitis with hematuria (4) CAD (coronary artery disease) Qualifiers: Coronary Disease-Associated Artery/Lesion type: [place] artery [place] vs. transplanted heart: [place] heart Associated angina: without angina Qualified Code(s): I25.10 - Atherosclerotic heart disease of [place] coronary artery without angina pectoris (5) Hematuria Qualifiers: Hematuria type: gross Qualified Code(s): R31.0 - Gross hematuria (8) Type 2 diabetes mellitus Qualifiers: Diabetes mellitus terminal block assembler insulin use: with terminal block assembler use Diabetes mellitus complication status: with kidney complications Diabetes mellitus complication detail: with chronic kidney disease Chronic kidney disease stage: stage 4 (severe) Qualified Code(s): E11.22 - Type 2 diabetes mellitus with diabetic chronic kidney disease; N18.4 - Chronic kidney disease, stage 4 (severe ); Z79.4 - intermediate frame tender (current) use of insulin
[2017-11-08] MEDS: Multivit/Ca/Min/Fe/FA 1 TAB TABLET PO SCH (09:08)
[2017-11-08] MEDS: Metoprolol XL (24 HR) Succ 50 MG TAB.ER.24H PO SCH (09:08)
[2017-11-08] MEDS: Aspirin Enteric Coated 81 MG Tablet PO SCH (09:08)
[2017-11-08] MEDS: Insulin LISPRO 300 UNITS/3 ML VIAL SQ SCH ×7 (09:08→21:32)
[2017-11-08] MEDS: Furosemide 20 MG TABLET PO SCH (09:08)
[2017-11-08] MEDS: Nystatin POWDER 30 GM BOTTLE TP SCH ×2 (09:09→21:33)
--- NOTE | 2017-11-08 09:54 | Physician Discharge Referral ---
ExtendedCare Referral Info Transfer To: ECF Provider in Charge after Transfer: PCP Institutional Level of Care: Skilled (Nursing, PT) - Diagnosis (1) Hydronephrosis Status: Acute (2) Chronic kidney disease (CKD) Status: Acute (3) UTI (urinary tract infection) Status: Acute (4) CAD (coronary artery disease) Status: Chronic (5) Hematuria Status: Acute (6) Morbid obesity with BMI of 40.0-44.9, adult Status: Chronic (7) Nephrolithiasis Status: Acute (8) Type 2 diabetes mellitus Status: Acute (9) Debility Status: Acute (10) DVT prophylaxis Status: Acute - Transfer Medications Home Medications: Aspirin Enteric Coated [Aspirin EC] 81 mg PO DAILY 08/20/15 [History] Metoprolol XL (24 HR) Succ [Toprol Xl] 50 mg PO DAILY #30 tab.er.24h 01/07/16 [ Rx] Insulin Glargine,Hum.rec.anlog [Toujeo Solostar] 45 units SQ HS 06/10/16 [ History] Multivit-Minerals/Folic/Ginkgo [One Daily For Women 50+ Adv Tb] 1 tab PO DAILY 06/10/16 [History] Furosemide [Lasix] 20 mg PO DAILY 10/03/16 [History] Insulin ASPART [Novolog Flexpen] 18 unit SQ TIDWM 10/03/16 [History] Losartan Potassium [Cozaar] 50 mg PO DAILY 10/03/16 [History] Clopidogrel [Plavix] 75 mg PO DAILY 11/03/17 [History] Oxybutynin Chloride [Ditropan Xl] 10 mg PO DAILY 11/03/17 [History] Rosuvastatin Calcium [Rosuvastatin Calcium] 10 mg PO HS 11/03/17 [History] Allergies/Adverse Reactions: 3 Allergy/AdvReac Type Severity Reaction Status Date / Time venom-honey bee Allergy Severe Swelling Verified 11/03/17 10:53 [bee venom (honey bee)] of Lip/Tongue/Throat Cortisone Allergy Mild Hives Verified 11/03/17 10:53 Penicillins Allergy See Verified 11/03/17 10:53 Comments NSAIDS (Non-Steroidal AdvReac Mild UPSET Verified 11/03/17 10:53 Anti-Inflamma STOMACH cefazolin [From Ancef] AdvReac Hives Verified 11/03/17 10:53 Hxrdvlk-Zpq-Iqy Reductase AdvReac Muscle Pain Verified 11/03/17 10:53 Inhibitor [Statins] GRAPE FLAVOR Allergy Mild Swelling Uncoded 11/03/17 10:53 of the Eye - Respiratory Orders Smoking Cessation: Smoking cessation has been advised. For more information, call the [place] Tobacco Quit Line at 9-970-ARCPNOW. CERTIFICATION: I certify that the transfer of the above named patient to an Extended Care Facility is necessary for the continuing treatment of the diagnosis listed. The above information is true and accurate reflection of patient's current condition. Confidential - Redisclosure prohibited without a patient's written consent.
[2017-11-08] MEDS ORDERED: Insulin DETEMIR 100 UNIT/ML X5UNITS SQ ONE (12:30)
[2017-11-08] MEDS: Miconazole 2% ointment 114 GM TUBE TP SCH (13:14)
[2017-11-08] MEDS: *HR* Heparin 5,000 UNIT/ML VIAL SQ SCH ×2 (17:05→21:33)
[2017-11-08] MEDS ORDERED: Insulin DETEMIR 100 UNIT/ML X5UNITS SQ SCH (21:00)
[2017-11-09] MEDS: *HR* Heparin 5,000 UNIT/ML VIAL SQ SCH ×3 (05:33→22:15)
[2017-11-09] MEDS: Miconazole 2% ointment 114 GM TUBE TP SCH (06:27)
[2017-11-09] MEDS: Furosemide 20 MG TABLET PO SCH (08:37)
[2017-11-09] MEDS: Metoprolol XL (24 HR) Succ 50 MG TAB.ER.24H PO SCH (08:37)
[2017-11-09] MEDS: Multivit/Ca/Min/Fe/FA 1 TAB TABLET PO SCH (08:38)
[2017-11-09] MEDS: Insulin LISPRO 300 UNITS/3 ML VIAL SQ SCH ×7 (08:38→22:16)
[2017-11-09] MEDS: Nystatin POWDER 30 GM BOTTLE TP SCH ×2 (08:39→20:40)
[2017-11-09] MEDS: Aspirin Enteric Coated 81 MG Tablet PO SCH (08:42)
--- NOTE | 2017-11-09 15:51 | Internal Med Progress Note ---
Hospitalist Progress Note - Encounter Date of Encounter: 11/09/17 Time of Encounter: 15:51 - Subjective Interval History: Patient seen and examined at bedside. Patient overnight events. Patient was discharged 11/07/17, however is awaiting placement. She initially refused ECF placement and was discharged home with home health care however then wanted ECF placement which is appropriate for the patient and she is currently awaiting insurance authorization. Patient denies any chest pain, shortness of breath, nausea, vomiting, diarrhea. Patient has been afebrile. Patient's blood glucose has been elevated increase Levemir yesterday or units nightly we will increase to 45 units nightly today. - Exam Vitals: Temp Pulse Resp BP Pulse Ox 98.2 F 71 19 113/73 98 11/09/17 11:11 11/09/17 11:11 11/09/17 11:11 11/09/17 11:11 11/09/17 11:11 Exam: Constitutional: No acute distress, Alert Psych: AAO x 3 Neck: supple, no JVD Cardio: regular rate and rhythm, +s1s2, no murmurs/rubs/gallops Resp: clear to ascultation bilaterally, no wheezes/rales/ronchi Abd: soft, non tender/non distended, positive bowel sounds, no gaurding/reboud/ ridgitity Extremities: Patient with amputated toes, patient was wrapped bilateral lower extremities and gauze and socks are on; gauze appears to be dry and clean, there is no significant erythema extending from the dressings/ wound care recommended miconazole cream which was started yesterday. no crepitis appreciated Neuro: no focal deficits appreciated - Assessment and Plan (1) Hydronephrosis Current Visit: Yes Status: Acute Assessment and Plan: Urology evaluated patient in hospital. -Urology recommended outpatient follow-up in 3-4 weeks -Patient understands this plan (2) Chronic kidney disease (CKD) Current Visit: Yes Status: Acute Assessment and Plan: Serum creatinine appears to be between 2.0-2.8 in 2018 -Serum creatinine improved from admission from 2.43 to 2.13 -Avoid nephrotoxic medications -will have outpatient urology follow-up regarding hydronephrosis -no need for further labs inpt (3) UTI (urinary tract infection) Current Visit: Yes Status: Acute Assessment and Plan: uncomplicated UTI -s/p cipro rx (4) CAD (coronary artery disease) Current Visit: No Status: Chronic Assessment and Plan: Continue home medications aspirin, Plavix, metoprolol, and statin (5) Hematuria Current Visit: Yes Status: Acute Assessment and Plan: Probably due to UTI -Urology recommended Recommended follow-up as outpatient in 3-4 weeks -Patient completed a three-day course of ciprofloxacin -pt denies any further gross hematuria (6) Morbid obesity with BMI of 40.0-44.9, adult Current Visit: No Status: Chronic Assessment and Plan: Counseled on lifestyle modification (7) Nephrolithiasis Current Visit: Yes Status: Acute Assessment and Plan: -continues to have no flank pain. -non obstructive and imaging suggestive of tiny stones -outpatient follow-up with urology in 3-4 weeks (8) Type 2 diabetes mellitus Current Visit: Yes Status: Acute Assessment and Plan: Continue basal and sliding scale insulin coverage. -levemir increased to 40qhs yesterday and will increase to 45units qhs today due to continued hyperglycemia -Reviewed past medications and it appears the patient has been on 45 units daily at bedtime in the past (9) Debility Current Visit: Yes Status: Acute Assessment and Plan: -Patient initially declined ECF placement and was discharged with home health care and is awaiting placement -Patient states that she is going to [facility] -We will clarify with case management social work -Stable for discharge to ECF; patient would likely benefit from ECF placement -continue PT OT while in hospital (10) DVT prophylaxis Current Visit: No Status: Acute Assessment and Plan: EPCDs, subcutaneous heparin (11) Chronic stasis dermatitis Current Visit: Yes Status: Acute Assessment and Plan: Left worse than right on lower extremities -Appreciate wound care recommendations -Wound care recommended miconazole cream yesterday which was started; will update discharge summary medications DVT Prophylaxis: heparin sq - Summary of Assessment and Plan Summary of Assessment and Plan: Still awaiting insurance authorization for ECF. Stable for discharge. - Time Spent with Patient Total time spent is greater than 50% in coordination of care (as documented) at patient's floor/unit and/or counseling patient: less than 15 minutes Plan of Care Discussed with: patient Internal Medicine: Result - Labs CBC & Chem 7: 11/06/17 04:25 11/06/17 04:25 - ABG Interpretation ABG results: PT/INR, D-dimer PT 12.1 Seconds (9.4-12.1) 11/03/17 11:49 Consult Discharge Plan - Plan Instructions: Urinary Tract Infection in Women (DC) Additional Instructions: - Please follow up with your primary care physician within the next week for further evaluation after hospitalization. - -Follow up with urology within the next 3-4 weeks. - Please participate in home health care. Referrals: [facility] [Provider Group] Wale Lam DO [Primary Care Provider] - (1) Hydronephrosis Qualifiers: Hydronephrosis type: unspecified Qualified Code(s): N13.30 - Unspecified hydronephrosis (2) Chronic kidney disease (CKD) Qualifiers: Chronic kidney disease stage: stage 4 (severe) Qualified Code(s): N18.4 - Chronic kidney disease, stage 4 (severe) (3) UTI (urinary tract infection) Qualifiers: Urinary tract infection type: acute cystitis Hematuria presence: with hematuria Qualified Code(s): N30.01 - Acute cystitis with hematuria (4) CAD (coronary artery disease) Qualifiers: Coronary Disease-Associated Artery/Lesion type: [place] artery [place] vs. 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
[2017-11-09] MEDS: Acetaminophen 325 MG TABLET PO PRN (20:37)
[2017-11-09] MEDS ORDERED: Insulin DETEMIR 100 UNIT/ML X5UNITS SQ SCH (21:00)
[2017-11-10] MEDS: *HR* Heparin 5,000 UNIT/ML VIAL SQ SCH ×3 (05:38→21:04)
[2017-11-10] MEDS: Metoprolol XL (24 HR) Succ 50 MG TAB.ER.24H PO SCH (08:10)
[2017-11-10] MEDS: Multivit/Ca/Min/Fe/FA 1 TAB TABLET PO SCH (08:10)
[2017-11-10] MEDS: Furosemide 20 MG TABLET PO SCH (08:10)
[2017-11-10] MEDS: Aspirin Enteric Coated 81 MG Tablet PO SCH (08:10)
[2017-11-10] MEDS: Insulin LISPRO 300 UNITS/3 ML VIAL SQ SCH ×7 (08:10→21:04)
[2017-11-10] MEDS: Nystatin POWDER 30 GM BOTTLE TP SCH ×2 (08:13→21:18)
[2017-11-10] MEDS: Acetaminophen 325 MG TABLET PO PRN (11:16)
--- NOTE | 2017-11-10 11:37 | Internal Med Progress Note ---
Hospitalist Progress Note - Encounter Date of Encounter: 11/10/17 Time of Encounter: 11:42 - Subjective Interval History: Patient seen and examined at bedside. Patient overnight events. Patient was discharged 11/07/17, however is awaiting placement. She initially refused ECF placement and was discharged home with home health care however then wanted ECF placement which continues to be appropriate for this patient. Patient states that she had a small amount of blood in her urine again today. Patient will follow-up with urology as outpatient. Patient's blood glucose has been elevated ; will increase Levemir tonight. Denies any chest pain, shortness breath, nausea, vomiting, diarrhea. Patient is afebrile. - Exam Vitals: Temp Pulse Resp BP Pulse Ox 98.4 F 91 18 135/82 93 11/10/17 11:13 11/10/17 11:13 11/10/17 11:13 11/10/17 11:13 11/10/17 11:13 Exam: Constitutional: No acute distress, Alert, no pallor, sitting in chair Psych: AAO x 3 Neck: supple, no JVD Cardio: regular rate and rhythm, +s1s2, no murmurs/rubs/gallops Resp: clear to ascultation bilaterally Abd: soft, non tender/non distended, positive bowel sounds Extremities: Patient with amputated toes, patient was wrapped bilateral lower extremities and gauze and socks are on; gauze appears to be dry and clean, there is no significant erythema extending from the dressings, no crepitis appreciated, this is unchanged from yesterday, no ulcerations Neuro: no focal deficits appreciated - Assessment and Plan (1) Hydronephrosis Current Visit: Yes Status: Acute Assessment and Plan: Urology evaluated patient in hospital. -Urology recommended outpatient follow-up in 3-4 weeks -Patient understands this plan -no change in plan (2) Chronic kidney disease (CKD) Current Visit: Yes Status: Acute Assessment and Plan: Serum creatinine appears to be between 2.0-2.8 in 2018 -Serum creatinine improved from admission from 2.43 to 2.13 -Avoid nephrotoxic medications -will have outpatient urology follow-up regarding hydronephrosis -no need for further labs inpt -no change in plan (3) UTI (urinary tract infection) Current Visit: Yes Status: Acute Assessment and Plan: uncomplicated UTI -s/p cipro rx (4) CAD (coronary artery disease) Current Visit: No Status: Chronic Assessment and Plan: Continue home medications aspirin, Plavix, metoprolol, and statin (5) Hematuria Current Visit: Yes Status: Acute Assessment and Plan: Probably due to UTI -Urology recommended Recommended follow-up as outpatient in 3-4 weeks -Patient completed a three-day course of ciprofloxacin -pt admits to small amount of blood and urine today, will follow-up with urology in 3-4 weeks as planned -Continue the patient's intermittent hematuria no further evaluation currently and will follow-up with outpatient urology; however if she continues to have hematuria we will check labs (6) Morbid obesity with BMI of 40.0-44.9, adult Current Visit: No Status: Chronic Assessment and Plan: Counseled on lifestyle modification (7) Nephrolithiasis Current Visit: Yes Status: Acute Assessment and Plan: -continues to have no flank pain. -non obstructive and imaging suggestive of tiny stones -outpatient follow-up with urology in 3-4 weeks (8) Type 2 diabetes mellitus Current Visit: Yes Status: Acute Assessment and Plan: Continue basal and sliding scale insulin coverage. -Reviewed past medications and it appears the patient has been on 45 units daily at bedtime in the past -Increase Levemir to 50 units daily at bedtime due to continued hyperglycemia and will update us in discharge medications (9) Debility Current Visit: Yes Status: Acute Assessment and Plan: -Patient initially declined ECF placement and was discharged with home health care and is awaiting placement -Patient states that she is going to senior living -We will clarify with case management social work -Stable for discharge to ECF; patient would likely benefit from ECF placement -continue PT OT while in hospital (10) DVT prophylaxis Current Visit: No Status: Acute Assessment and Plan: EPCDs, subcutaneous heparin (11) Chronic stasis dermatitis Current Visit: Yes Status: Acute Assessment and Plan: Left worse than right on lower extremities -Appreciate wound care recommendations -Wound care recommended miconazole creamp which was started; will update discharge summary medications - Summary of Assessment and Plan Summary of Assessment and Plan: Continues to be stable for discharge. awaiting ecf placement. Intermittent hematuria, if continues and/or is persistent we will check labs; however stable for discharge and outpatient urology follow-up - Time Spent with Patient Total time spent is greater than 50% in coordination of care (as documented) at patient's floor/unit and/or counseling patient: less than 15 minutes Plan of Care Discussed with: patient Internal Medicine: Result - Labs CBC & Chem 7: 11/06/17 04:25 11/06/17 04:25 - ABG Interpretation ABG results: PT/INR, D-dimer PT 12.1 Seconds (9.4-12.1) 11/03/17 11:49 Consult Discharge Plan - Plan Instructions: Urinary Tract Infection in Women (DC) Additional Instructions: - Please follow up with your primary care physician within the next week for further evaluation after hospitalization. - -Follow up with urology within the next 3-4 weeks. - Please participate in home health care. Referrals: Leno Camarillo MD [Partnered Physician] - 12/01/17 9:30 am (Please follow up as schedule..) Bruno Cardona MD [Partnered Physician] - 11/23/17 11:30 am (Please follow up as schedule in [place] office..) Wale Lam DO [Primary Care Provider] - Prescriptions: Miconazole 2% ointment [Aloe [place] Antifungal Ointment] 1 appl TP DAILY #2 tube (1) Hydronephrosis Qualifiers: Hydronephrosis type: unspecified Qualified Code(s): N13.30 - Unspecified hydronephrosis (2) Chronic kidney disease (CKD) Qualifiers: Chronic kidney disease stage: stage 4 (severe) Qualified Code(s): N18.4 - Chronic kidney disease, stage 4 (severe) (3) UTI (urinary tract infection) Qualifiers: Urinary tract infection type: acute cystitis Hematuria presence: with hematuria Qualified Code(s): N30.01 - Acute cystitis with hematuria (4) CAD (coronary artery disease) Qualifiers: Coronary Disease-Associated Artery/Lesion type: [place] artery [place] vs. transplanted heart: [place] heart Associated angina: without angina Qualified Code(s): I25.10 - Atherosclerotic heart disease of [place] coronary artery without angina pectoris (5) Hematuria Qualifiers: Hematuria type: gross Qualified Code(s): R31.0 - Gross hematuria (8) Type 2 diabetes mellitus Qualifiers: Diabetes mellitus long term care pharmacist insulin use: with long term care pharmacist use Diabetes mellitus complication status: with kidney complications Diabetes mellitus complication detail: with chronic kidney disease Chronic kidney disease stage: stage 4 (severe) Qualified Code(s): E11.22 - Type 2 diabetes mellitus with diabetic chronic kidney disease; N18.4 - Chronic kidney disease, stage 4 (severe ); Z79.4 - long term care pharmacist (current) use of insulin
[2017-11-10] MEDS ORDERED: Ondansetron 4 MG/2 ML VIAL IVP PRN (20:41)
[2017-11-10] MEDS ORDERED: Insulin DETEMIR 100 UNIT/ML X5UNITS SQ SCH (21:00)
[2017-11-10] MEDS ORDERED: Ondansetron ODT 4 MG TAB.RAPDIS SL PRN (21:26)
[2017-11-11] MEDS ORDERED: Ondansetron 4 MG/2 ML VIAL IVP SCH
[2017-11-11] MEDS: Acetaminophen 325 MG TABLET PO PRN (04:00)
[2017-11-11] MEDS: *HR* Heparin 5,000 UNIT/ML VIAL SQ SCH (06:37)
[2017-11-11] MEDS: Miconazole 2% ointment 114 GM TUBE TP SCH (07:47)
[2017-11-11] MEDS: Insulin LISPRO 300 UNITS/3 ML VIAL SQ SCH ×3 (08:00→12:30)
[2017-11-11] MEDS: Furosemide 20 MG TABLET PO SCH (08:02)
[2017-11-11] MEDS: Metoprolol XL (24 HR) Succ 50 MG TAB.ER.24H PO SCH (08:02)
[2017-11-11] MEDS: Aspirin Enteric Coated 81 MG Tablet PO SCH (08:02)
[2017-11-11] MEDS: Nystatin POWDER 30 GM BOTTLE TP SCH (08:03)
[2017-11-11] MEDS: Multivit/Ca/Min/Fe/FA 1 TAB TABLET PO SCH (08:03)
--- NOTE | 2017-11-11 09:26 | Internal Med Progress Note ---
Hospitalist Progress Note - Encounter Date of Encounter: 11/11/17 Time of Encounter: 09:27 - Subjective Interval History: Patient seen and examined at bedside. Patient overnight events. Patient was discharged 11/07/17, however is awaiting placement. She initially refused ECF placement and was discharged home with home health care however then wanted ECF placement which continues to be appropriate for this patient. Patient developed hematuria again yesterday and RN and patient states the hematuria continued overnight and this morning. Due to this I will order a BMP and CBC and hold discharge until labs return. If labs are stable patient will be able to be discharged and with outpatient urology follow-up however if further investigation needs to happen discharge will obviously be held. Patient denies any complaints other than hematuria denies chest pain or shortness breath, nausea, vomiting, diarrhea. She is afebrile. - Exam Vitals: Temp Pulse Resp BP Pulse Ox 98.5 F 94 18 142/48 94 11/11/17 07:12 11/11/17 07:12 11/11/17 07:12 11/11/17 07:12 11/11/17 07:12 Exam: Constitutional: No acute distress, Alert, no pallor, sitting in chair Psych: AAO x 3 Neck: supple, no JVD Cardio: regular rate and rhythm, Resp: clear to ascultation bilaterally Abd: soft, non tender/non distended, positive bowel sounds Extremities: Patient with amputated toes, patient was wrapped bilateral lower extremities and gauze and socks are on; gauze appears to be dry and clean, there is no significant erythema extending from the dressings, no crepitis appreciated, again unchanged - Assessment and Plan (1) Hydronephrosis Current Visit: Yes Status: Acute Assessment and Plan: Urology evaluated patient in hospital. -Urology recommended outpatient follow-up in 3-4 weeks -Patient understands this plan -Attaining CBC/BMP secondary to persistent hematuria, if labs stable follow-up with outpatient urology if not we will investigate further; discharge held until labs return (2) Chronic kidney disease (CKD) Current Visit: Yes Status: Acute Assessment and Plan: Serum creatinine appears to be between 2.0-2.8 in 2018 -Serum creatinine improved from admission from 2.43 to 2.13 -Avoid nephrotoxic medications -will have outpatient urology follow-up regarding hydronephrosis -BMP and CBC ordered for persistent hematuria will follow-up pending labs if stable will stable for discharge (3) UTI (urinary tract infection) Current Visit: Yes Status: Acute Assessment and Plan: uncomplicated UTI -s/p cipro rx (4) CAD (coronary artery disease) Current Visit: No Status: Chronic Assessment and Plan: Continue home medications aspirin, Plavix, metoprolol, and statin (5) Hematuria Current Visit: Yes Status: Acute Assessment and Plan: Probably due to UTI -Urology recommended Recommended follow-up as outpatient in 3-4 weeks -Patient completed a three-day course of ciprofloxacin -pt admits to small amount of blood and urine today, will follow-up with urology in 3-4 weeks as planned -Patient continued to have hematuria yesterday overnight and this morning -We will order CBC and BMP to evaluate renal function and hemoglobin; if stable continue with plan to follow up with outpatient urology (6) Morbid obesity with BMI of 40.0-44.9, adult Current Visit: No Status: Chronic Assessment and Plan: Counseled on lifestyle modification (7) Nephrolithiasis Current Visit: Yes Status: Acute Assessment and Plan: -continues to have no flank pain. -non obstructive and imaging suggestive of tiny stones -outpatient follow-up with urology in 3-4 weeks (8) Type 2 diabetes mellitus Current Visit: Yes Status: Acute Assessment and Plan: Continue basal and sliding scale insulin coverage. -Reviewed past medications and it appears the patient has been on 45 units daily at bedtime in the past -Continues to have elevated blood glucose -Increase Levemir to 60 units daily at bedtime due to continued hyperglycemia and will update us in discharge medications -Increase lispro to 12 units with meals (9) Debility Current Visit: Yes Status: Acute Assessment and Plan: -Patient initially declined ECF placement and was discharged with home health care and is awaiting placement -Patient states that she is going to shelter -We will clarify with case management social work -Stable for discharge to ECF; patient would likely benefit from ECF placement -continue PT OT while in hospital (10) DVT prophylaxis Current Visit: No Status: Acute Assessment and Plan: EPCDs, subcutaneous heparin (11) Chronic stasis dermatitis Current Visit: Yes Status: Acute Assessment and Plan: Left worse than right on lower extremities -Appreciate wound care recommendations -Wound care recommended miconazole creamp which was started; will update discharge summary medications - Time Spent with Patient Total time spent is greater than 50% in coordination of care (as documented) at patient's floor/unit and/or counseling patient: less than 15 minutes Plan of Care Discussed with: patient Internal Medicine: Result - Labs CBC & Chem 7: 11/06/17 04:25 11/06/17 04:25 - ABG Interpretation ABG results: PT/INR, D-dimer PT 12.1 Seconds (9.4-12.1) 11/03/17 11:49 - VTE Documentation of Mechanical Device: Intermittent pneumatic compression device Consult Discharge Plan - Plan Instructions: Urinary Tract Infection in Women (DC) Additional Instructions: - Please follow up with your primary care physician within the next week for further evaluation after hospitalization. - -Follow up with urology within the next 3-4 weeks. - Please participate in home health care. Referrals: Leno Camarillo MD [Partnered Physician] - 12/01/17 9:30 am (Please follow up as schedule..) Bruno Cardona MD [Partnered Physician] - 11/23/17 11:30 am (Please follow up as schedule in [place] office..) Wale Lam DO [Primary Care Provider] - Prescriptions: Insulin DETEMIR [Levemir] 50 unit SQ QPM 30 Days #15 mls Miconazole 2% ointment [Aloe [place] Antifungal Ointment] 1 appl TP DAILY #2 tube (1) Hydronephrosis Qualifiers: Hydronephrosis type: unspecified Qualified Code(s): N13.30 - Unspecified hydronephrosis (2) Chronic kidney disease (CKD) Qualifiers: Chronic kidney disease stage: stage 4 (severe) Qualified Code(s): N18.4 - Chronic kidney disease, stage 4 (severe) (3) UTI (urinary tract infection) Qualifiers: Urinary tract infection type: acute cystitis Hematuria presence: with hematuria Qualified Code(s): N30.01 - Acute cystitis with hematuria (4) CAD (coronary artery disease) Qualifiers: Coronary Disease-Associated Artery/Lesion type: [place] artery [place] vs. 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
[2017-11-11 10:36] LABS: Hematocrit 36.1 % (35.3-44.9); Hemoglobin 11.5 g/dL (11.5-15.4); Mean Corpuscular HGB Conc 31.9 g/dL (31.6-35.5); Mean Corpuscular Hemoglobin 28.5 pg (28.0-33.3); Mean Corpuscular Volume 89.6 fL (83.0-100.0); Mean Platelet Volume 10.4 fL (9.4-12.4); Platelet Count 390 K/mcL (140-400); Red Blood Count 4.03 M/mcL (3.82-4.97); Red Cell Distribution Width 14.6 % (11.5-14.5)
[2017-11-11 10:58] LABS: Calcium 9.6 mg/dL (8.6-10.3); Potassium 4.4 mEq/L (3.5-5.1)
[2017-11-11] MEDS ORDERED: Insulin LISPRO 300 UNITS/3 ML VIAL SQ SCH (12:00)
[2017-11-11 12:38] VITALS: BP 107/60
[2017-11-11] MEDS ORDERED: Insulin DETEMIR 100 UNIT/ML X5UNITS SQ SCH (21:00)
== END 2017-11-11 14:39 | disposition home health service (06) ==
LOC: EMEROO 10:51 → 2ANU 10:51 → SUATTDRO 13:36 → 2ANU 14:38
PROVIDERS: ADMIT Hospitalist; ATTEND Internal Medicine

== ENCOUNTER 2017-11-17 04:42 | Inpatient (IN) ==
--- NOTE | 2017-11-17 04:58 | Emergency Department Note ---
Disposition Clinical Impression: Acute kidney injury Hematuria Qualifiers: Hematuria type: gross Qualified Code(s): R31.0 - Gross hematuria Sepsis Qualifiers: Sepsis type: sepsis due to unspecified organism Qualified Code(s): A41.9 - Sepsis, unspecified organism UTI (urinary tract infection) Qualifiers: Urinary tract infection type: site unspecified Hematuria presence: with hematuria Qualified Code(s): N39.0 - Urinary tract infection, site not specified ; R31.9 - Hematuria, unspecified Disposition: Admitted As Inpatient Condition: Fair Time of Disposition: 07:20 General Adult HPI - General Stated complaint: vag bleeding, abd pain, and back pain Time Seen by Provider: 11/17/17 04:53 Source: patient, EMS Limitations: no limitations Nursing Notes Reviewed: Yes Vital Signs Reviewed: Yes - History of Present Illness HPI Narrative: Patient is a 71-year-old female who presents to [facility] ED with a chief complaint of possible vaginal bleeding and back pain. Patient is a resident at [facility]. States she has had back pain chronically but then it seems to have acutely worsened over the last 2 hours. Denies any nausea , vomiting, fever or chills. States she does have some lower abdominal pain with palpation. No chest pain, difficulty breathing, problems with her bowel movements. Past medical history significant for type 2 diabetes, hypertension, hyperlipidemia. 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 Location: abdomen Radiation: back Pain Severity: severe Pain Scale: 8 Quality: aching Consistency: Worsening Improves with: nothing Worsens with: nothing Associated symptoms: Denies: chest pain, fever/chills, nausea/vomiting, shortness of breath, weakness Treatments Prior to Arrival: none - Related Data Home Medications Medication Instructions Recorded Confirmed Aspirin Enteric Coated [Aspirin EC] 81 mg PO DAILY 08/20/15 11/03/17 Insulin Glargine,Hum.rec.anlog 45 units SQ HS 06/10/16 11/03/17 [Toukeri Bellaostclau] Multivit-Minerals/Folic/Ginkgo 1 tab PO DAILY 06/10/16 11/03/17 [One Daily For Women 50+ Adv Tb] Furosemide [Lasix] 20 mg PO DAILY 10/03/16 11/03/17 Insulin ASPART [Novolog Flexpen] 18 unit SQ TIDWM 10/03/16 11/03/17 Losartan Potassium [Cozaar] 50 mg PO DAILY 10/03/16 11/03/17 Clopidogrel [Plavix] 75 mg PO DAILY 11/03/17 11/03/17 Oxybutynin Chloride [Ditropan Xl] 10 mg PO DAILY 11/03/17 11/03/17 Rosuvastatin Calcium [Rosuvastatin 10 mg PO HS 11/03/17 11/03/17 Calcium] Previous Rx's Medication Instructions Recorded Metoprolol XL (24 HR) Succ [Toprol 50 mg PO DAILY #30 tab.er.24h 01/07/16 Xl] Miconazole 2% ointment [Aloe [place] 1 appl TP DAILY #2 tube 11/09/17 Antifungal Ointment] Insulin DETEMIR [Levemir] 50 unit SQ QPM 30 Days #15 mls 11/10/17 Allergies Allergy/AdvReac Type Severity Reaction Status Date / Time venom-honey bee Allergy Severe Swelling Verified 11/03/17 10:53 [bee venom (honey bee)] of Lip/Tongue/Throat Cortisone Allergy Mild Hives Verified 11/03/17 10:53 Penicillins Allergy See Verified 11/03/17 10:53 Comments NSAIDS (Non-Steroidal AdvReac Mild UPSET Verified 11/03/17 10:53 Anti-Inflamma STOMACH cefazolin [From Ancef] AdvReac Hives Verified 11/03/17 10:53 Kjvmenn-Lmu-Dsb Reductase AdvReac Muscle Pain Verified 11/03/17 10:53 Inhibitor [Statins] GRAPE FLAVOR Allergy Mild Swelling Uncoded 11/03/17 10:53 of the Eye All systems ED: reviewed and negative except as stated. Past Medical History - Past Medical History Attestation: Yes The following information was validated with the patient. Source: patient Medical history: Reports: cardiomyopathy, CHF, coronary artery disease, CVA, diabetes, GERD, hyperlipidemia, hypertension, kidney stones, myocardial infarction, peripheral artery disease, renal disease, TIA Surgical history: Reports: appendectomy, breast surgery, carotid endarterectomy , cholecystectomy, coronary bypass (CABG), hysterectomy, pacemaker/AICD, LE vascular intervention Psychiatric history: Reports: depression - Social History Smoking Status: Former smoker Smokeless Tobacco Status: No Alcohol use: Reports: none Drug use: Reports: none Physical Exam - General Limitations: no limitations General appearance: alert, in no apparent distress - Head Head exam: atraumatic, normocephalic, normal inspection - Eye Eye exam: Present: EOMI - ENT ENT exam: normal exam, normal oropharynx, mucous membranes moist - Neck Neck exam: Present: normal inspection, full ROM, trachea midline - Chest Chest inspection: Present: normal inspection, symmetric chest wall rise - Respiratory Respiratory exam: Present: normal lung sounds bilaterally - Cardiovascular Cardiovascular exam: Present: regular rate, normal rhythm, normal heart sounds - Abdominal Exam Abdominal exam: Present: soft, tenderness, normal bowel sounds Abdominal tenderness: Present: diffuse - Extremities Exam Extremities exam: Present: normal inspection, full ROM. Absent: tenderness, pedal edema - Back Exam Back exam: Present: paraspinal tenderness (sacral discomfort) - Neurological Exam Neurological exam: Present: alert, oriented X3 - Psychiatric Psychiatric exam: Present: normal affect, normal mood - Skin Skin exam: Present: warm, dry, intact, normal color Course Course Narrative: Patient seen and examined. Concern for possible bleeding from the genitourinary region. Patient has had a total hysterectomy. Suspect the bleeding source is more likely from the urinary tract. We did an external vaginal exam which shows a big blood clot sitting in the region. We will get abdominal labs, CT abdomen and pelvis without contrast, Elizondo placement and urine analysis. Patient's bladder was irrigated with continuous bladder irrigation via a three-way catheter. - Reevaluation(s) Reevaluation #1: Patient's lab work shows a hemoglobin of 10.9 which is similar to previous hemoglobin several days back. Patient's renal function shows signs of elevated creatinine of 5.31 which is significantly elevated from prior creatinine of 2.92. Patient's white blood count count is 14 with a left shift. Lactic acid elevated at 2.5. At this time, patient does meet criteria for severe sepsis. A liter fluid bolus along with blood cultures and Levaquin was ordered. We will administer fluids cautiously due to patient's most recent echocardiogram back in October 2016 showing an ejection fraction of only 30%. Time: 06:06 Reevaluation #2: CT abdomen and pelvis shows high density material in the bladder consistent with hemorrhage. Uncertain etiology. CT again shows bilateral hydroureteronephrosis worse than previous exam. I discussed these findings with urology Dr. Antunez who states they will consult. Patient hospitalist for admission at this time. Time: 07:08 Reevaluation #3: I discussed with the hospitalist Dr. Sánchez who has accepted patient for admission. Time: 07:20 Vital Signs Temperature 98.2 F 11/17/17 04:49 Pulse Rate 97 11/17/17 04:49 Respiratory Rate 18 11/17/17 04:49 Blood Pressure 125/63 11/17/17 04:49 O2 Sat by Pulse Oximetry 100 11/17/17 04:49 Temperature 98.2 F 11/17/17 04:49 Pulse Rate 97 11/17/17 06:39 Respiratory Rate 18 11/17/17 06:39 Blood Pressure 110/53 11/17/17 06:39 O2 Sat by Pulse Oximetry 100 11/17/17 06:39 Oxygen Delivery Oxygen Delivery Room Air Medical Decision Making - Medical Records Medical records reviewed: Yes I reviewed the patient's medical records. - Lab Data Lab results reviewed: Yes I reviewed the patient's lab results. Result diagrams: 11/17/17 05:17 11/17/17 05:17 Lab Results 11/17/17 11/17/17 11/17/17 Range/Units 04:58 05:17 05:17 WBC 14.4 H (4.3-11.1) K/mcL RBC 3.87 (3.82-4.97) M/mcL Hgb 10.6 L (11.5-15.4) g/dL Hct 33.9 L (35.3-44.9) % MCV 87.6 (83.0-100.0) fL MCH 27.4 L (28.0-33.3) pg MCHC 31.3 L (31.6-35.5) g/dL RDW 15.0 H (11.5-14.5) % Plt Count 510 H (140-400) K/mcL MPV 10.2 (9.4-12.4) fL Immature Gran % 0.5 (0-4) % Seg Neutrophils % 77.9 % Lymphocytes % 8.9 % Monocytes % 11.6 % Eosinophils % 0.8 % Basophils % 0.3 % Neutrophils # 11.2 H (1.6-8.9) K/mcL Lymphocytes # 1.3 (0.6-4.6) K/mcL Monocytes # 1.7 H (0.0-1.3) K/mcL Eosinophils # 0.1 (0.0-0.6) K/mcL Basophils # 0.1 (0.0-0.2) K/mcL Sodium 132 L (136-145) mEq/L Potassium 4.8 (3.5-5.1) mEq/L Chloride 96 L (98-107) mEq/L Carbon Dioxide 18 L (23-29) mEq/L BUN 113 H (8-23) mg/dL Creatinine 5.31 H (0.60-1.20) mg/dL Est GFR ( Amer) 10 L (> 60) Est GFR (Non-Af Amer) 8 L (> 60) BUN/Creatinine Ratio 21 (6-26) Glucose 201 H (70-105) mg/dL Calculated Osmolality 316 H (280-300) Lactic Acid (0.5-2.2) mmol/L Calcium 9.5 (8.6-10.3) mg/dL Total Bilirubin 0.8 (0.3-1.0) mg/dL Direct Bilirubin 0.4 H (0.0-0.2) mg/dL Indirect Bilirubin 0.4 (0.0-1.2) mg/dL AST 16 (13-39) Units/L ALT 13 (7-52) Units/L Alkaline Phosphatase 154 H (34-104) Units/L Serum Total Protein 8.7 (6.4-8.9) g/dL Albumin 3.5 (3.5-5.7) g/dL Globulin 5.2 H (2.4-3.5) g/dL Albumin/Globulin Ratio 0.7 L (1.1-2.2) Lipase 22 (11-82) Units/L Ur Specimen Adequacy See below A Urine Color Red A (Yellow) Urine Clarity Clear (Clear) Urine pH 7.0 (5.0-8.0) pH Units Ur Specific [place] > 1.030 H (1.010-1.025) Urine Protein >=1000 H (Neg-Trace) mg/dL Urine Glucose (UA) Normal (Normal) mg/dL Urine Ketones Trace H (Negative) mg/dL Urine Blood Large H (Negative) Urine Nitrite Positive A (Negative) Urine Bilirubin Moderate H (Negative) Urine Urobilinogen Normal (Normal) mg/dL Ur Leukocyte Esterase Small H (Negative) Ur Culture Indicated? YES A (NO) 11/17/17 Range/Units 05:38 WBC (4.3-11.1) K/mcL RBC (3.82-4.97) M/mcL Hgb (11.5-15.4) g/dL Hct (35.3-44.9) % MCV (83.0-100.0) fL MCH (28.0-33.3) pg MCHC (31.6-35.5) g/dL RDW (11.5-14.5) % Plt Count (140-400) K/mcL MPV (9.4-12.4) fL Immature Gran % (0-4) % Seg Neutrophils % % Lymphocytes % % Monocytes % % Eosinophils % % Basophils % % Neutrophils # (1.6-8.9) K/mcL Lymphocytes # (0.6-4.6) K/mcL Monocytes # (0.0-1.3) K/mcL Eosinophils # (0.0-0.6) K/mcL Basophils # (0.0-0.2) K/mcL Sodium (136-145) mEq/L Potassium (3.5-5.1) mEq/L Chloride (98-107) mEq/L Carbon Dioxide (23-29) mEq/L BUN (8-23) mg/dL Creatinine (0.60-1.20) mg/dL Est GFR ( Amer) (> 60) Est GFR (Non-Af Amer) (> 60) BUN/Creatinine Ratio (6-26) Glucose (70-105) mg/dL Calculated Osmolality (280-300) Lactic Acid 2.5 H (0.5-2.2) mmol/L Calcium (8.6-10.3) mg/dL Total Bilirubin (0.3-1.0) mg/dL Direct Bilirubin (0.0-0.2) mg/dL Indirect Bilirubin (0.0-1.2) mg/dL AST (13-39) Units/L ALT (7-52) Units/L Alkaline Phosphatase (34-104) Units/L Serum Total Protein (6.4-8.9) g/dL Albumin (3.5-5.7) g/dL Globulin (2.4-3.5) g/dL Albumin/Globulin Ratio (1.1-2.2) Lipase (11-82) Units/L Ur Specimen Adequacy Urine Color (Yellow) Urine Clarity (Clear) Urine pH (5.0-8.0) pH Units Ur Specific [place] (1.010-1.025) Urine Protein (Neg-Trace) mg/dL Urine Glucose (UA) (Normal) mg/dL Urine Ketones (Negative) mg/dL Urine Blood (Negative) Urine Nitrite (Negative) Urine Bilirubin (Negative) Urine Urobilinogen (Normal) mg/dL Ur Leukocyte Esterase (Negative) Ur Culture Indicated? (NO) - Radiology Data Radiology results reviewed: Yes I reviewed the patient's radiology results. Abdomen/Pelvis CT 11/17/17 04:55 IMPRESSION: Urinary bladder has high density contents consistent with hemorrhage, of uncertain etiology. Bilateral hydroureteronephrosis has increased in the interval since prior study. D/ / Juan David Milian MD / Juan David Milian MD Interpreting Provider: Juan David Milian MD Sepsis Reassessment Note - Evaluation Sepsis Screen: No Definite Risk Current Stage of Sepsis: severe sepsis Possible Source of Sepsis: genitourinary - Focused Exam Date of Encounter: 11/17/17 Time of Encounter: 06:45 Vital Signs: Vital Signs Temp Pulse Resp BP Pulse Ox 11/17/17 06:39 97 18 110/53 100 11/17/17 05:28 93 18 122/75 100 11/17/17 04:49 98.2 F 97 18 125/63 100 Respiratory Exam: Absent: wheezes, rales, rhonchi, accessory muscle use Cardiovascular Exam: Present: RRR Capillary Refill: < 2 seconds Peripheral Pulse Strength: 2+ slightly diminished Peripheral Pulse Location: Radial Skin Exam: normal turgor
[2017-11-17 05:15] LABS: Bilirubin,Urine Moderate (Negative); Blood,Urine Large (Negative); Clarity,Urine Clear (Clear); Color,Urine Red (Yellow); Glucose,Urine (UA) Normal (Normal); Ketones,Urine Trace mg/dL (Negative); Leukocyte Esterase,Urine Small (Negative); Nitrite,Urine Positive (Negative); Protein,Urine >=1000 mg/dL (Neg-Trace); Specific Gravity,Urine > 1.030 (1.010-1.025); Urobilinogen,Urine Normal (Normal)
[2017-11-17 05:33] LABS: Basophils # 0.1 K/mcL (0.0-0.2); Basophils % 0.3 %; Eosinophils # 0.1 K/mcL (0.0-0.6); Eosinophils % 0.8 %; Hematocrit 33.9 % (35.3-44.9); Hemoglobin 10.6 g/dL (11.5-15.4); Immature Granulocytes % 0.5 % (0-4); Lymphocytes # 1.3 K/mcL (0.6-4.6); Lymphocytes % 8.9 %; Mean Corpuscular HGB Conc 31.3 g/dL (31.6-35.5); Mean Corpuscular Hemoglobin 27.4 pg (28.0-33.3); Mean Corpuscular Volume 87.6 fL (83.0-100.0); Mean Platelet Volume 10.2 fL (9.4-12.4); Monocytes # 1.7 K/mcL (0.0-1.3); Monocytes % 11.6 %; Neutrophils # 11.2 K/mcL (1.6-8.9); Platelet Count 510 K/mcL (140-400); Red Blood Count 3.87 M/mcL (3.82-4.97); Segmented Neutrophils % 77.9 %
[2017-11-17 05:51] LABS: Albumin 3.5 g/dL (3.5-5.7); Albumin/Globulin Ratio 0.7 (1.1-2.2); Bilirubin,Direct 0.4 mg/dL (0.0-0.2); Bilirubin,Indirect 0.4 mg/dL (0.0-1.2); Bilirubin,Total 0.8 mg/dL (0.3-1.0); Calcium 9.5 mg/dL (8.6-10.3); Globulin 5.2 g/dL (2.4-3.5); Potassium 4.8 mEq/L (3.5-5.1); Total Protein 8.7 g/dL (6.4-8.9)
[2017-11-17] MEDS ORDERED: 0.9 % Sodium Chloride 1,000 ML IVC ONE ×2 (05:56→12:10)
[2017-11-17] MEDS ORDERED: Levofloxacin 750 MG/150 ML 750 MG/150 ML BAG IVPB ONE (05:56)
[2017-11-17] MEDS ORDERED: Acetaminophen 325 MG TABLET PO ONE (05:57)
--- NOTE | 2017-11-17 06:50 | Emergency Department Note ---
Disposition Clinical Impression: Acute kidney injury Hematuria Qualifiers: Hematuria type: gross Qualified Code(s): R31.0 - Gross hematuria Sepsis Qualifiers: Sepsis type: sepsis due to unspecified organism Qualified Code(s): A41.9 - Sepsis, unspecified organism UTI (urinary tract infection) Qualifiers: Urinary tract infection type: site unspecified Hematuria presence: with hematuria Qualified Code(s): N39.0 - Urinary tract infection, site not specified Disposition: Admitted As Inpatient Condition: Fair Referrals: Wale aLm DO [Primary Care Provider] - General Adult HPI - General Chief complaint: ED Urogenital-Female Stated complaint: vag bleeding, abd pain, and back pain Time Seen by Provider: 11/17/17 04:53 Source: patient, EMS Limitations: no limitations Nursing Notes Reviewed: Yes Vital Signs Reviewed: Yes - History of Present Illness Location: abdomen Pain Scale: 8 Quality: aching Improves with: nothing Worsens with: nothing Associated symptoms: Denies: chest pain, fever/chills, nausea/vomiting, shortness of breath, weakness Treatments Prior to Arrival: none - Related Data Home Medications Medication Instructions Recorded Confirmed Aspirin Enteric Coated [Aspirin EC] 81 mg PO DAILY 08/20/15 11/03/17 Insulin Glargine,Hum.rec.anlog 45 units SQ HS 06/10/16 11/03/17 [Toujepraveena Solostar] Multivit-Minerals/Folic/Ginkgo 1 tab PO DAILY 06/10/16 11/03/17 [One Daily For Women 50+ Adv Tb] Furosemide [Lasix] 20 mg PO DAILY 10/03/16 11/03/17 Insulin ASPART [Novolog Flexpen] 18 unit SQ TIDWM 10/03/16 11/03/17 Losartan Potassium [Cozaar] 50 mg PO DAILY 10/03/16 11/03/17 Clopidogrel [Plavix] 75 mg PO DAILY 11/03/17 11/03/17 Oxybutynin Chloride [Ditropan Xl] 10 mg PO DAILY 11/03/17 11/03/17 Rosuvastatin Calcium [Rosuvastatin 10 mg PO HS 11/03/17 11/03/17 Calcium] Previous Rx's Medication Instructions Recorded Metoprolol XL (24 HR) Succ [Toprol 50 mg PO DAILY #30 tab.er.24h 01/07/16 Xl] Miconazole 2% ointment [Aloe [place] 1 appl TP DAILY #2 tube 11/09/17 Antifungal Ointment] Insulin DETEMIR [Levemir] 50 unit SQ QPM 30 Days #15 mls 11/10/17 Allergies Allergy/AdvReac Type Severity Reaction Status Date / Time venom-honey bee Allergy Severe Swelling Verified 11/03/17 10:53 [bee venom (honey bee)] of Lip/Tongue/Throat Cortisone Allergy Mild Hives Verified 11/03/17 10:53 Penicillins Allergy See Verified 11/03/17 10:53 Comments NSAIDS (Non-Steroidal AdvReac Mild UPSET Verified 11/03/17 10:53 Anti-Inflamma STOMACH cefazolin [From Ancef] AdvReac Hives Verified 11/03/17 10:53 Buzyiuq-Xgp-Qxa Reductase AdvReac Muscle Pain Verified 11/03/17 10:53 Inhibitor [Statins] GRAPE FLAVOR Allergy Mild Swelling Uncoded 11/03/17 10:53 of the Eye Past Medical History - Past Medical History Medical history: Reports: cardiomyopathy, CHF, coronary artery disease, CVA, diabetes, GERD, hyperlipidemia, hypertension, kidney stones, myocardial infarction, peripheral artery disease, renal disease, TIA Surgical history: Reports: appendectomy, breast surgery, carotid endarterectomy , cholecystectomy, coronary bypass (CABG), hysterectomy, pacemaker/AICD, LE vascular intervention Psychiatric history: Reports: depression - Social History Smoking Status: Former smoker Smokeless Tobacco Status: No Alcohol use: Reports: none Drug use: Reports: none Physical Exam - General Limitations: no limitations General appearance: alert, in no apparent distress Course Vital Signs Temperature 98.2 F 11/17/17 04:49 Pulse Rate 97 11/17/17 04:49 Respiratory Rate 18 11/17/17 04:49 Blood Pressure 125/63 11/17/17 04:49 O2 Sat by Pulse Oximetry 100 11/17/17 04:49 Temperature 98.2 F 11/17/17 04:49 Pulse Rate 97 11/17/17 06:39 Respiratory Rate 18 11/17/17 06:39 Blood Pressure 110/53 11/17/17 06:39 O2 Sat by Pulse Oximetry 100 11/17/17 06:39 Oxygen Delivery Oxygen Delivery Room Air Medical Decision Making - Medical Records Medical records reviewed: Yes I reviewed the patient's medical records. - Lab Data Lab results reviewed: Yes I reviewed the patient's lab results. Result diagrams: 11/17/17 05:17 11/17/17 05:17 Lab Results 11/17/17 11/17/17 11/17/17 Range/Units 04:58 05:17 05:17 WBC 14.4 H (4.3-11.1) K/mcL RBC 3.87 (3.82-4.97) M/mcL Hgb 10.6 L (11.5-15.4) g/dL Hct 33.9 L (35.3-44.9) % MCV 87.6 (83.0-100.0) fL MCH 27.4 L (28.0-33.3) pg MCHC 31.3 L (31.6-35.5) g/dL RDW 15.0 H (11.5-14.5) % Plt Count 510 H (140-400) K/mcL MPV 10.2 (9.4-12.4) fL Immature Gran % 0.5 (0-4) % Seg Neutrophils % 77.9 % Lymphocytes % 8.9 % Monocytes % 11.6 % Eosinophils % 0.8 % Basophils % 0.3 % Neutrophils # 11.2 H (1.6-8.9) K/mcL Lymphocytes # 1.3 (0.6-4.6) K/mcL Monocytes # 1.7 H (0.0-1.3) K/mcL Eosinophils # 0.1 (0.0-0.6) K/mcL Basophils # 0.1 (0.0-0.2) K/mcL Sodium 132 L (136-145) mEq/L Potassium 4.8 (3.5-5.1) mEq/L Chloride 96 L (98-107) mEq/L Carbon Dioxide 18 L (23-29) mEq/L BUN 113 H (8-23) mg/dL Creatinine 5.31 H (0.60-1.20) mg/dL Est GFR ( Amer) 10 L (> 60) Est GFR (Non-Af Amer) 8 L (> 60) BUN/Creatinine Ratio 21 (6-26) Glucose 201 H (70-105) mg/dL Calculated Osmolality 316 H (280-300) Lactic Acid (0.5-2.2) mmol/L Calcium 9.5 (8.6-10.3) mg/dL Phosphorus 6.1 H (2.7-4.5) mg/dL Magnesium 2.8 H (1.6-2.6) mg/dL Total Bilirubin 0.8 (0.3-1.0) mg/dL Direct Bilirubin 0.4 H (0.0-0.2) mg/dL Indirect Bilirubin 0.4 (0.0-1.2) mg/dL AST 16 (13-39) Units/L ALT 13 (7-52) Units/L Alkaline Phosphatase 154 H (34-104) Units/L Serum Total Protein 8.7 (6.4-8.9) g/dL Albumin 3.5 (3.5-5.7) g/dL Globulin 5.2 H (2.4-3.5) g/dL Albumin/Globulin Ratio 0.7 L (1.1-2.2) Lipase 22 (11-82) Units/L Ur Specimen Adequacy See below A Urine Color Red A (Yellow) Urine Clarity Clear (Clear) Urine pH 7.0 (5.0-8.0) pH Units Ur Specific [place] > 1.030 H (1.010-1.025) Urine Protein >=1000 H (Neg-Trace) mg/dL Urine Glucose (UA) Normal (Normal) mg/dL Urine Ketones Trace H (Negative) mg/dL Urine Blood Large H (Negative) Urine Nitrite Positive A (Negative) Urine Bilirubin Moderate H (Negative) Urine Urobilinogen Normal (Normal) mg/dL Ur Leukocyte Esterase Small H (Negative) Ur Culture Indicated? YES A (NO) 11/17/17 Range/Units 05:38 WBC (4.3-11.1) K/mcL RBC (3.82-4.97) M/mcL Hgb (11.5-15.4) g/dL Hct (35.3-44.9) % MCV (83.0-100.0) fL MCH (28.0-33.3) pg MCHC (31.6-35.5) g/dL RDW (11.5-14.5) % Plt Count (140-400) K/mcL MPV (9.4-12.4) fL Immature Gran % (0-4) % Seg Neutrophils % % Lymphocytes % % Monocytes % % Eosinophils % % Basophils % % Neutrophils # (1.6-8.9) K/mcL Lymphocytes # (0.6-4.6) K/mcL Monocytes # (0.0-1.3) K/mcL Eosinophils # (0.0-0.6) K/mcL Basophils # (0.0-0.2) K/mcL Sodium (136-145) mEq/L Potassium (3.5-5.1) mEq/L Chloride (98-107) mEq/L Carbon Dioxide (23-29) mEq/L BUN (8-23) mg/dL Creatinine (0.60-1.20) mg/dL Est GFR ( Amer) (> 60) Est GFR (Non-Af Amer) (> 60) BUN/Creatinine Ratio (6-26) Glucose (70-105) mg/dL Calculated Osmolality (280-300) Lactic Acid 2.5 H (0.5-2.2) mmol/L Calcium (8.6-10.3) mg/dL Phosphorus (2.7-4.5) mg/dL Magnesium (1.6-2.6) mg/dL Total Bilirubin (0.3-1.0) mg/dL Direct Bilirubin (0.0-0.2) mg/dL Indirect Bilirubin (0.0-1.2) mg/dL AST (13-39) Units/L ALT (7-52) Units/L Alkaline Phosphatase (34-104) Units/L Serum Total Protein (6.4-8.9) g/dL Albumin (3.5-5.7) g/dL Globulin (2.4-3.5) g/dL Albumin/Globulin Ratio (1.1-2.2) Lipase (11-82) Units/L Ur Specimen Adequacy Urine Color (Yellow) Urine Clarity (Clear) Urine pH (5.0-8.0) pH Units Ur Specific [place] (1.010-1.025) Urine Protein (Neg-Trace) mg/dL Urine Glucose (UA) (Normal) mg/dL Urine Ketones (Negative) mg/dL Urine Blood (Negative) Urine Nitrite (Negative) Urine Bilirubin (Negative) Urine Urobilinogen (Normal) mg/dL Ur Leukocyte Esterase (Negative) Ur Culture Indicated? (NO) - Radiology Data Radiology results reviewed: Yes I reviewed the patient's radiology results. Abdomen/Pelvis CT 11/17/17 04:55 IMPRESSION: Urinary bladder has high density contents consistent with hemorrhage, of uncertain etiology. Bilateral hydroureteronephrosis has increased in the interval since prior study. D/ / Juan David Milian MD / Juan David Milian MD Interpreting Provider: Juan David Milian MD Critical Care Time Critical Care Time: Yes Total Critical Care Time: 40 Attestation: Critical care performed: Time is exclusive of separately billable procedures. Time includes: direct patient care, patient reassessment, coordination of patient care, interpretation of data (laboratory data, radiology data, and respiratory data), review of patient's medical records, medical consultation and documentation of patient care. Procedures included in critical care time: Procedures excluded from critical care time: Attestation Statement - Attestation Attestation: I, Levon Bejarano MD, personally evaluated this patient and discussed their management with the resident physician. I reviewed the resident's note and agree with the documented findings, medical decision making, and plan of care. 71-year-old female presents to the emergency department from a local half-way with a complaint of vaginal bleeding and back pain which started yesterday. She denies any fever. No nausea or vomiting. Some mild lower abdominal pain. Patient is on aspirin and Plavix but no anticoagulants. She states that she has had a hysterectomy in the past. Patient was recently in the hospital for UTI and hematuria. On examination patient is a well-developed obese elderly female in no acute distress. She is alert and oriented. No cyanosis or diaphoresis. Breath sounds are clear and equal bilaterally. Heart regular rate and rhythm. Abdomen is soft with normal bowel sounds. There is mild suprapubic tenderness. On exam patient has a moderate size blood clot over the anterior labia and appears to be coming from the urethra instead of the vagina. Labs reviewed. CT the abdomen and pelvis shows hemorrhage in the bladder with increased bilateral hydronephrosis. A Elizondo catheter was inserted which revealed gross hematuria with clots. Patient meets severe sepsis criteria. She is allergic to penicillins and cephalosporins. She was started on Levaquin. Blood pressure is been stable. She was not given a large fluid bolus because of her history of CHF and low ejection fraction. Dr. Stone discussed the case with urology. The hospitalist was consulted and accepted admission of the patient.
[2017-11-17 07:13] LABS: Magnesium 2.8 mg/dL (1.6-2.6); Phosphorous 6.1 mg/dL (2.7-4.5)
[2017-11-17] MEDS ORDERED: Naloxone 0.4 MG/ML INJ IVP PRN (08:15)
[2017-11-17] MEDS ORDERED: Acetaminophen 325 MG TABLET PO PRN (08:15)
[2017-11-17] MEDS ORDERED: D5% in Water 1,000 ML IVC PRN (08:22)
[2017-11-17] MEDS ORDERED: *HR* Dextrose 50 % in Water (Syg) 50 ML SYRINGE IVP PRN (08:22)
[2017-11-17] MEDS ORDERED: Dextrose Gel 15 GM/37.5 ML TUBE PO PRN ×2 (08:22)
--- NOTE | 2017-11-17 08:32 | Internal Med History&Physical ---
Date of Encounter: 11/17/17 Time of Encounter: 07:30 Internal Medicine - H&P: HPI Chief complaint: Hematuria Admitted From: Home Plans for Post Hospital Care: Transfer Configuration Developer Care History of present illness: Ms. Bentley is a 71 year old female present to ER for hematuria. Past medical history is significant for CAD, systolic CHF with EF 30% S/P PPM/AICD, CKD, diabetes, hypertension, chronic back pain. Patient was recently admitted for hematuria. Urology consult saw patient in hospital. She was discharged because hematuria stopped and urine culture negative. Patient was scheduled to follow-up with urology as outpatient. Since this morning around 2 AM, patient was found clots in urine. Later she found bright blood in urine. Recent denies fever, nausea, dysuria, or burning on urination. However, she was sick yesterday and vomited once. In the emergency room, abdominal is CT shows worsening bilateral hydronephrosis, bladder hemorrhage. Patient also has worsening renal function. Bladder irrigation started from ER. Urology consult was called by emergency room. Patient was admitted for further management. Past Med Surg Social Fam HX - Past Medical History Medical history: cardiomyopathy, CHF, coronary artery disease, CVA, diabetes, GERD, hyperlipidemia, hypertension, kidney stones, myocardial infarction, peripheral artery disease, renal disease, TIA Additional medical history: renal insufficiency, blood thinner Psychiatric history: depression - Past Surgical History Surgical History: appendectomy, breast surgery, carotid endarterectomy, cholecystectomy, coronary bypass (CABG), hysterectomy, pacemaker/AICD, LE vascular intervention Additional surgical history: cyst removed in left breast, left chest pacer/AICD - Social History Smoking Status: Former smoker Smokeless Tobacco Status: No Alcohol use: none Drug use: none - Family History Mother Living Status: Hx Family Cardiac Disorders: Yes (HTN) Hx Family Endocrine Disorder: Yes (diabetes) Hx Family Neurologic Disorders: Yes (2 strokes) Father Living Status: Hx Family Cardiac Disorders: Yes Hx Family Respiratory Disorders: Yes Hx Family Neurologic Disorders: Yes Internal Medicine - H&P: Meds Aspirin Enteric Coated [Aspirin EC] 81 mg PO DAILY 08/20/15 [History] Metoprolol XL (24 HR) Succ [Toprol Xl] 50 mg PO DAILY #30 tab.er.24h 01/07/16 [ Rx] Insulin Glargine,Hum.rec.anlog [Toujeo Solostar] 45 units SQ HS 06/10/16 [ History] Multivit-Minerals/Folic/Ginkgo [One Daily For Women 50+ Adv Tb] 1 tab PO DAILY 06/10/16 [History] Furosemide [Lasix] 20 mg PO DAILY 10/03/16 [History] Insulin ASPART [Novolog Flexpen] 18 unit SQ TIDWM 10/03/16 [History] Losartan Potassium [Cozaar] 50 mg PO DAILY 10/03/16 [History] Clopidogrel [Plavix] 75 mg PO DAILY 11/03/17 [History] Oxybutynin Chloride [Ditropan Xl] 10 mg PO DAILY 11/03/17 [History] Rosuvastatin Calcium [Rosuvastatin Calcium] 10 mg PO HS 11/03/17 [History] Miconazole 2% ointment [Aloe [place] Antifungal Ointment] 1 appl TP DAILY #2 tube 11/09/17 [Rx] Insulin DETEMIR [Levemir] 50 unit SQ QPM 30 Days #15 mls 11/10/17 [Rx] 3 Allergy/AdvReac Type Severity Reaction Status Date / Time venom-honey bee Allergy Severe Swelling Verified 11/03/17 10:53 [bee venom (honey bee)] of Lip/Tongue/Throat Cortisone Allergy Mild Hives Verified 11/03/17 10:53 Penicillins Allergy See Verified 11/03/17 10:53 Comments NSAIDS (Non-Steroidal AdvReac Mild UPSET Verified 11/03/17 10:53 Anti-Inflamma STOMACH cefazolin [From Ancef] AdvReac Hives Verified 11/03/17 10:53 Fymzzpc-Boo-Syp Reductase AdvReac Muscle Pain Verified 11/03/17 10:53 Inhibitor [Statins] GRAPE FLAVOR Allergy Mild Swelling Uncoded 11/03/17 10:53 of the Eye All Systems PM: A 10-system review of systems was performed and is negative for pertinent findings except as documented above in the HPI. - Constitutional Vitals: Temp Pulse Resp BP Pulse Ox 98.2 F 97 18 110/53 100 11/17/17 04:49 11/17/17 06:39 11/17/17 06:39 11/17/17 06:39 11/17/17 06:39 General appearance: Present: A&O X 3, no acute distress, answers questions appropriately Exam: Patient shows generalized weakness - Head Head exam: Present: atraumatic, normocephalic - Eye Eye exam: Present: PERRL, conjuntiva pink, sclera anicteric Pupils: Present: PERRL - Neck Neck exam general surgery: Present: supple, trachea midline. Absent: lymphadenopathy - Respiratory Respiratory exam: Present: CTAB. Absent: accessory muscle use, rales, rhonchi, wheezes - Cardiovascular Cardiovascular exam: Present: RRR, +S1, +S2. Absent: diastolic murmur, gallop, rubs, systolic murmur - GI/Abdominal GI/Abdominal exam: Present: normal bowel sounds, soft, no peritoneal signs. Absent: distended, tenderness - Extremities Exam Extremities exam: Present: warm, radial pulses palpable and symmetrical. Absent : calf tenderness, cyanotic, pedal edema - Neurological Exam Neurological exam: Present: CN II-XII intact, oriented X3, no focal deficits. Absent: pronater drift, facial droop, speech deficit - Skin Skin exam: Present: dry, intact Internal Med - H&P Results - Labs CBC & Chem 7: 11/17/17 05:17 11/17/17 05:17 - Assessment and plan (1) Acute kidney injury superimposed on chronic kidney disease Current Visit: No Status: Chronic Assessment and plan: Creatinine increased the from baseline 2-3 to 5.3 today. Patient was found worsening hydronephrosis. Patient was placed Elizondo catheter and started bladder irrigation in the emergency room. - Temporarily hold home medication losartan and Lasix - Avoid nephrotoxic medications - Nephrology consult (2) Hypertension Current Visit: No Status: Chronic Assessment and plan: BP is not high at this point. Hold losartan because of worsening renal function. Continue metoprolol by mouth Qualifiers: Hypertension type: essential hypertension Qualified Code(s): I10 - Essential (primary) hypertension (3) Hematuria Current Visit: Yes Status: Acute Assessment and plan: Etiology is undetermined. Urine analysis shows possible UTI. Antibiotics is started. Urology consult for further management. - Continue bladder irrigation - Check H/H q8h - Closely monitor vitals - Temporarily hold home medication aspirin and Plavix Qualifiers: Hematuria type: gross Qualified Code(s): R31.0 - Gross hematuria (4) Type 2 diabetes mellitus Current Visit: No Status: Acute Assessment and plan: Continue basal and sliding scale insulin coverage. Patient has generally poor intake. Closely monitor glucose level and adjust insulin dose accordingly Qualifiers: Diabetes mellitus termite inspector insulin use: with fpc use Diabetes mellitus complication status: with kidney complications Diabetes mellitus complication detail: with chronic kidney disease Chronic kidney disease stage : stage 4 (severe) Qualified Code(s): E11.22 - Type 2 diabetes mellitus with diabetic chronic kidney disease; N18.4 - Chronic kidney disease, stage 4 (severe ); Z79.4 - terminal worker (current) use of insulin (5) Chronic systolic heart failure Current Visit: No Status: Acute Assessment and plan: Patient has PPM and AICD. Appears euvolemic at this point. Continue metoprolol. Temporarily hold losartan and Lasix at this point because of worsening renal function. Closely monitor fluid status. (6) Debility Current Visit: No Status: Acute Assessment and plan: Patient in need PTOT evaluation after stabilization (7) Hydronephrosis Current Visit: No Status: Acute Assessment and plan: Etiology is undetermined. Urology was consult, will follow recommendations. Qualifiers: Hydronephrosis type: unspecified Qualified Code(s): N13.30 - Unspecified hydronephrosis (8) UTI (urinary tract infection) Current Visit: Yes Status: Acute Assessment and plan: Urinalysis shows UTI. Patient has no significant symptoms except hematuria. Patient is allergic to penicillin and cefazolin. Will continue Levaquin renal dose. Follow-up urine culture results. Qualifiers: Urinary tract infection type: site unspecified Hematuria presence: with hematuria Qualified Code(s): N39.0 - Urinary tract infection, site not specified; R31.9 - Hematuria, unspecified (9) Generalized weakness Current Visit: No Status: Acute Assessment and plan: Needs PTOT evaluation. (10) DVT prophylaxis Current Visit: No Status: Acute Assessment and plan: EPCDs - Time Spent With Patient Total time spent is greater than 50% in coordination of care (as documented) at patient's floor/unit and/or counseling patient: 40 minutes Greater than 35 minutes
[2017-11-17] MEDS: Multivit/Ca/Min/Fe/FA 1 TAB TABLET PO SCH (09:53)
[2017-11-17] MEDS: Metoprolol XL (24 HR) Succ 50 MG TAB.ER.24H PO SCH (09:55)
[2017-11-17] MEDS: Miconazole 2% ointment 114 GM TUBE TP SCH (10:13)
--- NOTE | 2017-11-17 11:34 | Nephrology Consult Note ---
<Teja Yi - Last Filed: 11/17/17 18:48> Date of Encounter: 11/17/17 Time of Encounter: 11:45 Assessment and Plan (1) Acute kidney injury superimposed on chronic kidney disease Current Visit: Yes Status: Chronic Creatinine increased from baseline 2-3 to 5.3 today. Patient was found with worsening hydronephrosis on CT. Elizondo catheter was placed and bladder irrigation initiated in the emergency room. Continue to hold home medication losartan and Lasix. Urology has been consulted stat in the setting of worsening bilateral hydronephrosis. Obstruction needs to be ruled out before considering HD. Urine Na+, creatinine, and eosinophils pending. Avoid nephrotoxic medications Discussed goal of care with patient with possibility of temporary HD vs Permanent HD if kidney function does not improve and obstruction is ruled out/ resolved. Patient demonstrates understanding and is agreeable to treatment plan. No acute findings of worsening acidosis, hyperkalemia or other electrolyte inbalances, intoxification, volume overload, or uremic symptoms. Patient does not require emergent HD today but will likely require HD in the future. Volume resuscitate with 500L bolus NaCl due to septic presentation. (2) Bilateral hydronephrosis Current Visit: Yes Status: Acute CT abdomen: Urinary bladder has high density contents consistent with hemorrhage , of uncertain etiology. Bilateral hydroureteronephrosis has increased in the interval since prior study. No mass or stone is clearly visualized. Dr. Antunez from urology spoke with Dr. Kearney via phone. He will access patient tomorrow and decide whether bilateral ureteral stent placement is required. (3) Hypertension Current Visit: No Status: Chronic Currently stable. Hold losartan and lasix in the setting of BL hydronephrosis. Continue to monitor vital signs. Qualifiers: Hypertension type: essential hypertension Qualified Code(s): I10 - Essential (primary) hypertension History of Present Illness - Reason for Consult Consult date: 11/17/17 Acute Kidney Injury, Chronic Kidney Disease - Chief Complaint hematuria - History of Present Illness 71F PMHx stage 3 CKD, CAD, systolic CHF with EF 30% s/p AICD, TIA, HTN, morbid obesity, type 2 diabetes, presents to ED for hematuria. Patient reports that she has had decreased appetite over the last 2 weeks. She is feeling feverish and nauseous, and very uncomfortable. Unable to verbalize where her pain is. Reports that she is feeling sick and pleading for help. Denies CP or shortness of breath. No dysuria prior to admission. Boyfriend at bedside reports that patient has found clots in urine since 2 AM this morning and came to the emergency room. In the emergency room, abdominal is CT shows worsening bilateral hydronephrosis, bladder hemorrhage. Bladder irrigation was started from ER. Urology consult was called by emergency room. Patient was admitted for further management. Dr. Kearney is familiar with patient. She has history of non-compliance with medication and diet. Past Med Surg Social Fam HX - Past Medical History Medical history: cardiomyopathy, CHF, coronary artery disease, CVA, diabetes, GERD, hyperlipidemia, hypertension, kidney stones, myocardial infarction, peripheral artery disease, renal disease, TIA Additional medical history: renal insufficiency, blood thinner Psychiatric history: depression - Past Surgical History Surgical History: appendectomy, breast surgery, carotid endarterectomy, cholecystectomy, coronary bypass (CABG), hysterectomy, pacemaker/AICD, LE vascular intervention Additional surgical history: cyst removed in left breast, left chest pacer/AICD - Social History Smoking Status: Former smoker Smokeless Tobacco Status: No Alcohol use: none Drug use: none - Family History Mother Living Status: Hx Family Cardiac Disorders: Yes (HTN) Hx Family Endocrine Disorder: Yes (diabetes) Hx Family Neurologic Disorders: Yes (2 strokes) Father Living Status: Hx Family Cardiac Disorders: Yes Hx Family Respiratory Disorders: Yes Hx Family Neurologic Disorders: Yes Medications and Allergies Aspirin Enteric Coated [Aspirin EC] 81 mg PO DAILY 08/20/15 [History] Metoprolol XL (24 HR) Succ [Toprol Xl] 50 mg PO DAILY #30 tab.er.24h 01/07/16 [ Rx] Insulin Glargine,Hum.rec.anlog [Toujeo Solostar] 45 units SQ HS 06/10/16 [ History] Multivit-Minerals/Folic/Ginkgo [One Daily For Women 50+ Adv Tb] 1 tab PO DAILY 06/10/16 [History] Furosemide [Lasix] 40 mg PO QAM 10/03/16 [History] Insulin ASPART [Novolog Flexpen] 25 unit SQ TIDWM 10/03/16 [History] Losartan Potassium [Cozaar] 50 mg PO DAILY 10/03/16 [History] Clopidogrel [Plavix] 75 mg PO DAILY 11/03/17 [History] Oxybutynin Chloride [Ditropan Xl] 10 mg PO DAILY 11/03/17 [History] Rosuvastatin Calcium [Rosuvastatin Calcium] 10 mg PO HS 11/03/17 [History] Ascorbic Acid [Vitamin C] 500 mg PO BID 11/17/17 [History] Ergocalciferol (VITAMIN D2) [Vitamin D2] 50,000 unit PO QWEEK 11/17/17 [History] Furosemide [Lasix] 20 mg PO QPM 11/17/17 [History] 3 Allergy/AdvReac Type Severity Reaction Status Date / Time venom-honey bee Allergy Severe Swelling Verified 11/03/17 10:53 [bee venom (honey bee)] of Lip/Tongue/Throat Cortisone Allergy Mild Hives Verified 11/03/17 10:53 Penicillins Allergy See Verified 11/03/17 10:53 Comments NSAIDS (Non-Steroidal AdvReac Mild UPSET Verified 11/03/17 10:53 Anti-Inflamma STOMACH cefazolin [From Ancef] AdvReac Hives Verified 11/03/17 10:53 Epgxmtx-Wem-Qfx Reductase AdvReac Muscle Pain Verified 11/03/17 10:53 Inhibitor [Statins] GRAPE FLAVOR Allergy Mild Swelling Uncoded 11/03/17 10:53 of the Eye Review of Systems All Systems: reviewed and no additional remarkable complaints except as stated Constitutional: as per HPI Nose, mouth and throat: as per HPI Cardiovascular: as per HPI Respiratory: as per HPI Gastrointestinal: as per HPI Genitourinary Female: as per HPI Musculoskeletal: as per HPI Integumentary: as per HPI Neurological: as per HPI Hematologic/Lymphatic: as per HPI Exam - Vital Signs Vital signs: Initial Vital Signs Temp Pulse Resp BP Pulse Ox 98.2 F 97 18 125/63 100 11/17/17 04:49 11/17/17 04:49 11/17/17 04:49 11/17/17 04:49 11/17/17 04:49 Vital Signs - Last 8 Hours Temp Pulse Resp BP Pulse Ox 11/17/17 09:19 100.7 F H 113 18 122/70 98 Intake and Output 11/16/17 11/17/17 11/17/17 23:59 07:59 15:59 Intake Total 2700 / 2700 Output Total 900 / 900 Balance 1800 / 1800 Intake: Other 2700 / 2700 Output: Catheter 900 / 900 3-way Urethral 900 / 900 Other: Output, CBI Fluid 300 Blood Glucose* 195 - General Appearance Exam: General appearance: Present: A&O X 3, in moderate distress, diaphoretic. Appears very uncomfortable. Exam: Patient shows generalized weakness - Head Head exam: Present: atraumatic, normocephalic - Eye Eye exam: Present: conjuntiva pink, sclera anicteric - Neck Neck exam general surgery: Present: supple, trachea midline. Absent: lymphadenopathy - Respiratory Respiratory exam: Present: CTAB. Absent: accessory muscle use, rales, rhonchi, wheezes - Cardiovascular Cardiovascular exam: Present: tachycardic in 90s, +S1, +S2. Absent: diastolic murmur, gallop, rubs, systolic murmur - GI/Abdominal GI/Abdominal exam: Present: normal bowel sounds, soft, no peritoneal signs. Absent: distended, tenderness - Extremities Exam Extremities exam: Present: diaphoretic, warm, radial pulses palpable and symmetrical. Absent: calf tenderness, cyanotic, pedal edema - Neurological Exam Neurological exam: Present: CN II-XII intact, oriented X3, no focal deficits. Absent: pronater drift, facial droop, speech deficit - Skin Skin exam: Present: dry, intact Cardiology: no murmurs, no rub, no edema Additional Comments: Patient is diaphoretic. Additional Comments: uretheral catheter draining red urine without clots. Results - Lab Results 11/17/17 11:27 11/17/17 15:51 Most recent lab results Calcium 9.5 mg/dL (8.6-10.3) 11/17/17 05:17 Phosphorus 6.1 mg/dL (2.7-4.5) H 11/17/17 05:17 Magnesium 2.8 mg/dL (1.6-2.6) H 11/17/17 05:17 Consult Discharge Plan - Plan Referrals: Wale Lam DO [Primary Care Provider] - <Bruno Cardona - Last Filed: 11/27/17 23:06> Date of Encounter: 11/17/17 Assessment and Plan (1) Acute kidney injury Current Visit: Yes Status: Acute (2) Anemia Current Visit: No Status: Acute Qualifiers: Anemia type: unspecified type Qualified Code(s): D64.9 - Anemia, unspecified (3) Bilateral hydronephrosis Current Visit: Yes Status: Acute (4) Severe sepsis Current Visit: Yes Status: Acute (5) Metabolic acidosis Current Visit: Yes Status: Resolved (6) CKD (chronic kidney disease) stage 4, GFR 15-29 ml/min Current Visit: Yes Status: Acute Exam - Vital Signs Vital signs: Initial Vital Signs Temp Pulse Resp BP Pulse Ox 98.2 F 97 18 125/63 100 11/17/17 04:49 11/17/17 04:49 11/17/17 04:49 11/17/17 04:49 11/17/17 04:49 Vital Signs - Last 8 Hours Temp Pulse Resp BP Pulse Ox 11/27/17 20:37 98.2 F 87 17 124/61 95 11/27/17 16:19 99.6 F 72 16 137/74 92 Intake and Output 11/27/17 11/27/17 11/27/17 07:59 15:59 23:59 Intake Total 840 / 840 1000 / 1000 Output Total 750 / 750 3175 / 3175 2800 / 2800 Balance -750 / -750 -2335 / -2335 -1800 / -1800 Intake: IV Fluids 720 / 720 1000 / 1000 Heparin 25,000 UNIT/500 ML D5W 700 / 700 25,000 unit In 500 ml @ 14 UNIT /KG/HR 28.728 mls/hr IVC . [id number] MAGAN Rx#:[id number] Sodium Bicarbonate 75 MEQ In 0. 1000 / 1000 45% Sodium Chloride 1000 Ml 1000 Ml 1,000 ML @ 60 mls/hr IVC .[id number] MAGAN Rx#:[id number] Maxipime 2,000 MG In Water for 20 / 20 inj. (sterile) 20 ML @ 300 mls/ hr IVP Q24H MAGAN Rx#:[id number] Oral 120 / 120 Output: Urine 750 / 750 3175 / 3175 2800 / 2800 Other: Intake, CBI Fluid 3,000 3,000 3,000 Meal Lunch Percent of Meal Consumed 0% Output, CBI Fluid 3,000 3,000 3,450 Stool Size Smear Stool Consistency soft Stool Color Brown # Bowel Movements 1 Blood Glucose* 202 213 202 Results - Lab Results 11/27/17 13:38 11/26/17 02:36 Most recent lab results ABG pH 7.41 pH Units (7.32-7.45) 11/17/17 15:41 ABG pCO2 27 mmHg (35-45) L 11/17/17 15:41 ABG pO2 80 mmHg (85-104) L 11/17/17 15:41 ABG HCO3 17 mEq/L (21-27) L 11/17/17 15:41 ABG O2 Saturation 96 % (95-98) 11/17/17 15:41 Calcium 8.2 mg/dL (8.6-10.3) L 11/26/17 02:36 Phosphorus 5.2 mg/dL (2.7-4.5) H 11/26/17 02:36 Magnesium 1.9 mg/dL (1.6-2.6) 11/26/17 02:36 Urine Creatinine 56 mg/dL 11/18/17 11:54 Urine Sodium 55.9 mEq/L 11/18/17 11:54 - Attending Attestation I examined this patient and my medical decision-making was reviewed with the Resident Physician. I agree with the documented findings, disposition and treatment plan as described except to the extent set forth below. Pt seen and examined and in brief, 71 y o female with pMH of DM, HTN and stage 4 CKD well known to me from outpatient management of CKD admitted with hematuria , decreased po intake and generalized malaise. She was noted with SCr above 5, baseline usually around 2-3 and also noted on CT with bilateral hydronephrosis which has worsen from previous. Discussed care with urology, Dr Antunez who plans to assess pt this pm for possible ureteral stents. On exam pt noted very diaphoretic and with chills. TENISHA likely due to obstructive uropathy but also very concerning for sepsis as well. Discussed with pharmacy to broaden antibiotics given. Will also bolus with 500cc NS now and encourage fluids if possible. No acute indication for AUCTION CLERK just yet but discussed the possibility with pt and if no improvement with urologic intervention.
[2017-11-17 11:40] LABS: Basophils % 0.1 %; Eosinophils % 0.1 %; Hemoglobin 9.8 g/dL (11.5-15.4); Immature Granulocytes % 0.8 % (0-4); Lymphocytes # 0.3 K/mcL (0.6-4.6); Lymphocytes % 2.3 %; Mean Corpuscular HGB Conc 31.6 g/dL (31.6-35.5); Mean Corpuscular Hemoglobin 28.1 pg (28.0-33.3); Mean Corpuscular Volume 88.8 fL (83.0-100.0); Mean Platelet Volume 10.4 fL (9.4-12.4); Platelet Count 420 K/mcL (140-400); Red Blood Count 3.49 M/mcL (3.82-4.97); Red Cell Distribution Width 14.7 % (11.5-14.5); Segmented Neutrophils % 95.7 %
[2017-11-17 11:45] LABS: Monocytes # 0.2 K/mcL (0.0-1.3)
--- NOTE | 2017-11-17 11:47 | Urology - Consult Note ---
<Eulalia Becerril N - Last Filed: 11/17/17 11:44> Date of Encounter: 11/17/17 Time of Encounter: 11:45 - Assessment and Plan (1) Bilateral hydronephrosis Current Visit: Yes Status: Acute Assessment and plan: Uncertain etiology for bilateral hydronephrosis as no mass or stone is clearly visualized on CT. Dr. Antunez will discuss bilateral ureteral stent placement with Dr. Kearney for potential treatment option. (2) Hematuria Current Visit: Yes Status: Acute Assessment and plan: Patient currently has indwelling urethral catheter that is sufficiently draining urine with scant sediment into bedside bag. No clots or catheter obstruction visualized. Will place 24F hematuria catheter if needed. Qualifiers: Hematuria type: gross Qualified Code(s): R31.0 - Gross hematuria Urology CN:HPI Reason for consult Urology: Gross Hematuria History of present illness: Patient is a 71-year-old female who presented the emergency department with gross hematuria and lower abdominal pain. The patient is currently resting comfortably and is minimally participating with the history and examination. The patient was previously admitted for gross hematuria 2 weeks ago which was clear on discharge. The patient states hematuria is chronic and intermittent, but today she noticed multiple small clots in her urine. On admission, the patient was also noted to have bilateral hydronephrosis that has worsened as well as a markedly elevated serum creatinine. Past Med Surg Social Fam HX - Past Medical History Medical history: cardiomyopathy, CHF, coronary artery disease, CVA, diabetes, GERD, hyperlipidemia, hypertension, kidney stones, myocardial infarction, peripheral artery disease, renal disease, TIA Additional medical history: renal insufficiency, blood thinner Psychiatric history: depression - Past Surgical History Surgical History: appendectomy, breast surgery, carotid endarterectomy, cholecystectomy, coronary bypass (CABG), hysterectomy, pacemaker/AICD, LE vascular intervention Additional surgical history: cyst removed in left breast, left chest pacer/AICD - Social History Smoking Status: Former smoker Smokeless Tobacco Status: No Alcohol use: none Drug use: none - Family History Mother Living Status: Hx Family Cardiac Disorders: Yes (HTN) Hx Family Endocrine Disorder: Yes (diabetes) Hx Family Neurologic Disorders: Yes (2 strokes) Father Living Status: Hx Family Cardiac Disorders: Yes Hx Family Respiratory Disorders: Yes Hx Family Neurologic Disorders: Yes Medications and Allergies Aspirin Enteric Coated [Aspirin EC] 81 mg PO DAILY 08/20/15 [History] Metoprolol XL (24 HR) Succ [Toprol Xl] 50 mg PO DAILY #30 tab.er.24h 01/07/16 [ Rx] Insulin Glargine,Hum.rec.anlog [Toujeo Solostar] 45 units SQ HS 06/10/16 [ History] Multivit-Minerals/Folic/Ginkgo [One Daily For Women 50+ Adv Tb] 1 tab PO DAILY 06/10/16 [History] Furosemide [Lasix] 40 mg PO QAM 10/03/16 [History] Insulin ASPART [Novolog Flexpen] 25 unit SQ TIDWM 10/03/16 [History] Losartan Potassium [Cozaar] 50 mg PO DAILY 10/03/16 [History] Clopidogrel [Plavix] 75 mg PO DAILY 11/03/17 [History] Oxybutynin Chloride [Ditropan Xl] 10 mg PO DAILY 11/03/17 [History] Rosuvastatin Calcium [Rosuvastatin Calcium] 10 mg PO HS 11/03/17 [History] Ascorbic Acid [Vitamin C] 500 mg PO BID 11/17/17 [History] Ergocalciferol (VITAMIN D2) [Vitamin D2] 50,000 unit PO QWEEK 11/17/17 [History] Furosemide [Lasix] 20 mg PO QPM 11/17/17 [History] 3 Allergy/AdvReac Type Severity Reaction Status Date / Time venom-honey bee Allergy Severe Swelling Verified 11/03/17 10:53 [bee venom (honey bee)] of Lip/Tongue/Throat Cortisone Allergy Mild Hives Verified 11/03/17 10:53 Penicillins Allergy See Verified 11/03/17 10:53 Comments NSAIDS (Non-Steroidal AdvReac Mild UPSET Verified 11/03/17 10:53 Anti-Inflamma STOMACH cefazolin [From Ancef] AdvReac Hives Verified 11/03/17 10:53 Hlsyznm-Soz-Wxi Reductase AdvReac Muscle Pain Verified 11/03/17 10:53 Inhibitor [Statins] GRAPE FLAVOR Allergy Mild Swelling Uncoded 11/03/17 10:53 of the Eye Review of Systems - Constitutional fatigue, no chills, no fever(s) - EENT Nose, mouth and throat: no dizziness, no headache(s) - Cardiovascular no chest pain, no dyspnea - Respiratory no cough, no dyspnea - Gastrointestinal abdominal pain, nausea, no change in bowel habits, no vomiting - Genitourinary Genitourinary: hematuria, no change in urinary stream, no difficulty urinating, no difficulty voiding, no dysuria, no flank pain, no urinary frequency, no urinary hesitancy, no urinary incontinence, no urinary urgency Menstruation: post hysterectomy - Musculoskeletal no back pain, no muscle weakness - Integumentary no erythema, no rash, no swelling - Neurological no confusion, no syncope - Psychiatric no anxiety, no confusion Exam Initial Vital Signs Temp Pulse Resp BP Pulse Ox 98.2 F 97 18 125/63 100 11/17/17 04:49 11/17/17 04:49 11/17/17 04:49 11/17/17 04:49 11/17/17 04:49 - General physical appearance Present: well developed, no distress, no pain, obese - Eyes Present: PERRL, normal ocular movement - ENT Present: normal nares, no hearing loss. Absent: nasal discharge - Neck Present: trachea midline - Respiratory Present: normal respiratory effort - Cardiovascular Cardiovascular exam IM: RRR - Abdomen Abdomen: Present: soft, tender (diffuse mild tenderness in lower abdomen ). Absent: distended - Genitourinary Present: normal external genitalia, other (urine is transparent fruit punch with scant sediment in tubing ) - Integumentary Present: no rash, no abnormal pigmentation - Neurologic Present: normal coordination. Absent: disoriented Urology Results - Labs 11/17/17 05:17 11/17/17 05:17 Abnormal lab results WBC 14.4 K/mcL (4.3-11.1) H 11/17/17 05:17 Hgb 10.6 g/dL (11.5-15.4) L 11/17/17 05:17 Hct 33.9 % (35.3-44.9) L 11/17/17 05:17 MCH 27.4 pg (28.0-33.3) L 11/17/17 05:17 MCHC 31.3 g/dL (31.6-35.5) L 11/17/17 05:17 RDW 15.0 % (11.5-14.5) H 11/17/17 05:17 Plt Count 510 K/mcL (140-400) H 11/17/17 05:17 Neutrophils # 11.2 K/mcL (1.6-8.9) H 11/17/17 05:17 Monocytes # 1.7 K/mcL (0.0-1.3) H 11/17/17 05:17 Sodium 132 mEq/L (136-145) L 11/17/17 05:17 Chloride 96 mEq/L (98-107) L 11/17/17 05:17 Carbon Dioxide 18 mEq/L (23-29) L 11/17/17 05:17 BUN 113 mg/dL (8-23) H 11/17/17 05:17 Creatinine 5.31 mg/dL (0.60-1.20) H 11/17/17 05:17 Est GFR ( Amer) 10 (> 60) L 11/17/17 05:17 Est GFR (Non-Af Amer) 8 (> 60) L 11/17/17 05:17 Glucose 201 mg/dL (70-105) H 11/17/17 05:17 Calculated Osmolality 316 (280-300) H 11/17/17 05:17 Phosphorus 6.1 mg/dL (2.7-4.5) H 11/17/17 05:17 Magnesium 2.8 mg/dL (1.6-2.6) H 11/17/17 05:17 Direct Bilirubin 0.4 mg/dL (0.0-0.2) H 11/17/17 05:17 Alkaline Phosphatase 154 Units/L (34-104) H 11/17/17 05:17 Globulin 5.2 g/dL (2.4-3.5) H 11/17/17 05:17 Albumin/Globulin Ratio 0.7 (1.1-2.2) L 11/17/17 05:17 Ur Specimen Adequacy See below A 11/17/17 04:58 Urine Color Red (Yellow) A 11/17/17 04:58 Ur Specific [place] > 1.030 (1.010-1.025) H 11/17/17 04:58 Urine Protein >=1000 mg/dL (Neg-Trace) H 11/17/17 04:58 Urine Ketones Trace mg/dL (Negative) H 11/17/17 04:58 Urine Blood Large (Negative) H 11/17/17 04:58 Urine Nitrite Positive (Negative) A 11/17/17 04:58 Urine Bilirubin Moderate (Negative) H 11/17/17 04:58 Ur Leukocyte Esterase Small (Negative) H 11/17/17 04:58 Ur Culture Indicated? YES (NO) A 11/17/17 04:58 All other labs normal. - Imaging CT scan - abdomen: report reviewed, image reviewed CT scan - pelvis: report reviewed, image reviewed Consult Discharge Plan - Plan Referrals: Wale Lam DO [Primary Care Provider] - <Gustavo Antunez - Last Filed: 11/17/17 17:46> Date of Encounter: 11/17/17 - Assessment and Plan (1) Hematuria Current Visit: Yes Status: Acute Assessment and plan: Patient seen and examined. I placed a 24-[place]awk hematuria catheter and irrigated further clot. Repeat labs show creatinine of 5.4 which has not improved. I briefly discussed with the pulmonary critical care team. They will continue to hydrate overnight. If no improvement of her renal function in the morning will likely proceed with bilateral ureteral stent placement Qualifiers: Hematuria type: gross Qualified Code(s): R31.0 - Gross hematuria Exam Initial Vital Signs Temp Pulse Resp BP Pulse Ox 98.2 F 97 18 125/63 100 11/17/17 04:49 11/17/17 04:49 11/17/17 04:49 11/17/17 04:49 11/17/17 04:49 Urology Results - Labs 11/17/17 11:27 11/17/17 15:51 Abnormal lab results WBC 14.6 K/mcL (4.3-11.1) H 11/17/17 11:27 RBC 3.49 M/mcL (3.82-4.97) L 11/17/17 11:27 Hgb 9.8 g/dL (11.5-15.4) L 11/17/17 11:27 Hct 31.0 % (35.3-44.9) L 11/17/17 11:27 RDW 14.7 % (11.5-14.5) H 11/17/17 11:27 Plt Count 420 K/mcL (140-400) H 11/17/17 11:27 Neutrophils # 14.0 K/mcL (1.6-8.9) H 11/17/17 11:27 Lymphocytes # 0.3 K/mcL (0.6-4.6) L 11/17/17 11:27 Platelet Estimate Slight increase (Normal) H 11/17/17 11:27 PT 19.4 Seconds (9.4-12.1) H 11/17/17 15:51 ABG pCO2 27 mmHg (35-45) L 11/17/17 15:41 ABG pO2 80 mmHg (85-104) L 11/17/17 15:41 ABG HCO3 17 mEq/L (21-27) L 11/17/17 15:41 ABG Total CO2 18 mEq/L (20-26) L 11/17/17 15:41 ABG Base Excess -7 mEq/L (-2 to 3) L 11/17/17 15:41 Carbon Dioxide 18 mEq/L (23-29) L 11/17/17 15:51 BUN 111 mg/dL (8-23) H 11/17/17 15:51 Creatinine 5.41 mg/dL (0.60-1.20) H 11/17/17 15:51 Est GFR ( Amer) 9 (> 60) L 11/17/17 15:51 Est GFR (Non-Af Amer) 8 (> 60) L 11/17/17 15:51 Glucose 128 mg/dL (70-105) H 11/17/17 15:51 POC Glucose 149 mg/dL (70-99) H 11/17/17 14:31 Calculated Osmolality 319 (280-300) H 11/17/17 15:51 Lactic Acid 2.3 mmol/L (0.5-2.2) H 11/17/17 15:13 Calcium 7.8 mg/dL (8.6-10.3) L 11/17/17 15:51 Venous Ioniz Calcium 1.01 mmol/L (1.15-1.35) L 11/17/17 16:17 Direct Bilirubin 0.5 mg/dL (0.0-0.2) H 11/17/17 15:51 Alkaline Phosphatase 135 Units/L (34-104) H 11/17/17 15:51 Serum Total Protein 6.3 g/dL (6.4-8.9) L 11/17/17 15:51 Albumin 3.2 g/dL (3.5-5.7) L 11/17/17 15:51 Albumin/Globulin Ratio 1.0 (1.1-2.2) L 11/17/17 15:51 Ur Specimen Adequacy See below A 11/17/17 04:58 Urine Color Red (Yellow) A 11/17/17 04:58 Ur Specific [place] > 1.030 (1.010-1.025) H 11/17/17 04:58 Urine Protein >=1000 mg/dL (Neg-Trace) H 11/17/17 04:58 Urine Ketones Trace mg/dL (Negative) H 11/17/17 04:58 Urine Blood Large (Negative) H 11/17/17 04:58 Urine Nitrite Positive (Negative) A 11/17/17 04:58 Urine Bilirubin Moderate (Negative) H 11/17/17 04:58 Ur Leukocyte Esterase Small (Negative) H 11/17/17 04:58 Ur Culture Indicated? YES (NO) A 11/17/17 04:58 Diabetes panel 11/17/17 Range/Units 15:51 Sodium 136 (136-145) mEq/L Potassium 5.0 (3.5-5.1) mEq/L Chloride 106 (98-107) mEq/L Carbon Dioxide 18 L (23-29) mEq/L BUN 111 H (8-23) mg/dL Creatinine 5.41 H (0.60-1.20) mg/dL Glucose 128 H (70-105) mg/dL Calcium 7.8 L (8.6-10.3) mg/dL AST 29 (13-39) Units/L ALT 14 (7-52) Units/L Alkaline Phosphatase 135 H (34-104) Units/L Albumin 3.2 L (3.5-5.7) g/dL Calcium panel 11/17/17 Range/Units 15:51 Calcium 7.8 L (8.6-10.3) mg/dL Phosphorus 3.8 (2.7-4.5) mg/dL Albumin 3.2 L (3.5-5.7) g/dL Pituitary panel 11/17/17 Range/Units 15:51 Sodium 136 (136-145) mEq/L Potassium 5.0 (3.5-5.1) mEq/L Chloride 106 (98-107) mEq/L Carbon Dioxide 18 L (23-29) mEq/L BUN 111 H (8-23) mg/dL Creatinine 5.41 H (0.60-1.20) mg/dL Glucose 128 H (70-105) mg/dL Calcium 7.8 L (8.6-10.3) mg/dL Adrenal panel 11/17/17 Range/Units 15:51 Sodium 136 (136-145) mEq/L Potassium 5.0 (3.5-5.1) mEq/L Chloride 106 (98-107) mEq/L Carbon Dioxide 18 L (23-29) mEq/L BUN 111 H (8-23) mg/dL Creatinine 5.41 H (0.60-1.20) mg/dL Glucose 128 H (70-105) mg/dL Calcium 7.8 L (8.6-10.3) mg/dL Total Bilirubin 0.9 (0.3-1.0) mg/dL AST 29 (13-39) Units/L ALT 14 (7-52) Units/L Alkaline Phosphatase 135 H (34-104) Units/L Albumin 3.2 L (3.5-5.7) g/dL All other labs normal. Procedures:Urology - Bladder Irrigation/Clot Evacuation Consent obtained: verbal consent Irrigation: saline Amount of Clot: 100cc of old dark clot Patient tolerated procedure: well Continuous Bladder Irrigation: Yes Complications: none Additional comments: I removed the existing 18-[place] 3-way catheter. I placed a 24-[place] hematuria catheter which I used to irrigate.
[2017-11-17] MEDS ORDERED: 0.9 % Sodium Chloride 250 ML IVC ONE (12:10)
[2017-11-17] MEDS ORDERED: 0.9 % Sodium Chloride 500 ML IVC ONE (12:16)
[2017-11-17] MEDS: Insulin LISPRO 300 UNITS/3 ML VIAL SQ SCH ×2 (12:31→18:06)
[2017-11-17] MEDS ORDERED: Acetaminophen 650 MG RECTAL SUPP RC ONE (13:29)
[2017-11-17] MEDS ORDERED: 0.9 % Sodium Chloride 1,000 ML ONE (14:11)
[2017-11-17] MEDS: 0.9 % Sodium Chloride 1,000 ML IVC SCH (15:12)
[2017-11-17] MEDS ORDERED: Albumin Human 5% 25.0 GM/500 ML VIAL ONE (15:26)
[2017-11-17] MEDS: Norepinephrine 4 MG in D5% in Water 250 ML IVC SCH ×2 (15:32→18:07)
[2017-11-17 15:46] LABS: ABG Base Excess -7 mEq/L (-2 to 3); ABG HCO3 17 mEq/L (21-27); ABG Oxygen Saturation 96 % (95-98); ABG PCO2 27 mmHg (35-45); ABG PH 7.41 pH Units (7.32-7.45); ABG PO2 80 mmHg (85-104); ABG TCO2 18 mEq/L (20-26)
[2017-11-17 16:19] LABS: VBG Ionized Calcium 1.01 mmol/L (1.15-1.35)
[2017-11-17 16:51] LABS: INR 1.7; Prothrombin Time 19.4 Seconds (9.4-12.1)
[2017-11-17 17:00] LABS: Albumin 3.2 g/dL (3.5-5.7); Bilirubin,Direct 0.5 mg/dL (0.0-0.2); Bilirubin,Indirect 0.4 mg/dL (0.0-1.2); Bilirubin,Total 0.9 mg/dL (0.3-1.0); Calcium 7.8 mg/dL (8.6-10.3); Globulin 3.1 g/dL (2.4-3.5); Magnesium 2.2 mg/dL (1.6-2.6); Phosphorous 3.8 mg/dL (2.7-4.5); Total Protein 6.3 g/dL (6.4-8.9)
--- NOTE | 2017-11-17 17:10 | Procedure Note ---
<Juan David Walden - Last Filed: 11/17/17 18:12> Date of procedure: 11/17/17 Pre-op diagnosis: hypotension Post-op diagnosis: same Procedure: Written consent was obtained from the patient's . The right and left internal jugular vein were surveyed using ultrasound in the left was deemed to be a suitable target. The patient was cleaned and draped in the usual sterile fashion. The skin was anesthetized using 5 mL 1% lidocaine. Under ultrasound guidance the introducer needle was advanced through the skin and into the left internal jugular vein, dark red blood was returned. The guidewire was advanced the needle and into the vein without resistance. The needle was removed intact. Ultrasound was then used to visualize the guidewire within the vein. A erich in the skin was made in the skin and soft tissues were dilated. A 20 cm triple lumen catheter was advanced over the guidewire into the vein without resistance. The guidewire was removed intact. All 3 ports were tested and shown to draw blood and flushed easily. The catheter was then sutured in place. Biopatch and sterile dressing were applied. The patient tolerated the procedure well, there were no immediate complications. Chest x-ray performed immediately after the procedure revealed the catheter within the SVC and no pneumothorax. Anesthesia: local (5cc 1% lidocaine) Surgeon: Juan David Walden Was there an admissions assistant present: Yes Store Stocker: Maya Singer Estimated blood loss (cc): 5 IV fluids (cc): 10 Specimen: none Pathology: none sent Condition: critical Disposition: ICU <Benjamin Parry - Last Filed: 11/17/17 20:21> - Attending Attestation I was physically available for the entire procedure which was performed skillfully by the resident physician.
--- NOTE | 2017-11-17 17:56 | Pulmonology Consult Note ---
<Juan David Walden - Last Filed: 11/17/17 18:29> Date of Encounter: 11/17/17 Time of Encounter: 17:55 Assessment and Plan (1) Severe sepsis Current Visit: Yes Status: Acute Patient presented with leukocytosis, fever as well as acute kidney injury. Source appears to be UTI. Patient was given approximately 1 L of fluids this morning cautiously add a concern for systolic heart failure. Upon arrival to the ICU. That the patient was fluid depleted so therefore we will given the full 30 mL/kg of IV fluids. She appears to respond well, have ordered pressors but these have not been started yet. Cultures pending. Lactate elevated, trending lactate. (2) Acute encephalopathy Current Visit: Yes Status: Acute Likely multifactorial in the setting of elevated BUN, severe sepsis, hypotension. (3) Acute kidney injury superimposed on chronic kidney disease Current Visit: No Status: Chronic Baseline GFR appears to be in the 30s. Patient has acute worsening of renal function, likely due to obstructive uropathy. No indication for acute dialysis at this time over will closely monitor the patient's fluid status and potassium. Currently has bladder irrigation running with large amounts of clots aspirated. Nephrology following (4) Hematuria Current Visit: Yes Status: Acute Cause unknown, concern for underlying malignancy. CT shows large amounts of hemorrhagic products within the bladder. Patient is currently undergoing continuous bladder irrigation. Urology is following and planning for ureteral stents tomorrow if the patient's renal function does not improve. Qualifiers: Hematuria type: gross Qualified Code(s): R31.0 - Gross hematuria (5) UTI (urinary tract infection) Current Visit: Yes Status: Acute UA suggestive of infection with positive nitrites and small leukocyte esterase. Likely source of patient's sepsis. Urine culture pending. Currently on meropenem given critical illness. Continue for now, de-escalate based on culture results. Qualifiers: Urinary tract infection type: site unspecified Hematuria presence: with hematuria Qualified Code(s): N39.0 - Urinary tract infection, site not specified; R31.9 - Hematuria, unspecified (6) Type 2 diabetes mellitus Current Visit: No Status: Acute Blood sugars under good control this time. Patient is currently nothing by mouth given her critical illness and acute encephalopathy. Continue low-dose sliding scale insulin. Qualifiers: Diabetes mellitus nursing home insulin use: with nursing home use Diabetes mellitus complication status: with kidney complications Diabetes mellitus complication detail: with chronic kidney disease Chronic kidney disease stage : stage 4 (severe) Qualified Code(s): E11.22 - Type 2 diabetes mellitus with diabetic chronic kidney disease; N18.4 - Chronic kidney disease, stage 4 (severe ); Z79.4 - long term care phlebotomist (current) use of insulin (7) Chronic systolic heart failure Current Visit: No Status: Acute Chronic, known EF of 30%. No evidence of acute exacerbation. Giving fluids given the patient's hypotension and severe sepsis as discussed above. Hold beta maggie at this time given the hypotension. Continue to monitor for signs of fluid overload. (8) DVT prophylaxis Current Visit: Yes Status: Acute EPCD's at this time given the concern for bleeding no chemical DVT prophylaxis is indicated History of Present Illness Consult date: 11/17/17 Requesting physician: Meghan Sánchez Reason for consult: other (sepsis) Chief complaint: Hematuria History of present illness: Patient is 71-year-old female with history of systolic heart failure, CKD, hypertension, diabetes who was transferred to the ICU for hypotension and concern for septic shock. Upon my evaluation patient was somnolent and encephalopathic. Majority of the history is obtained from the who is unfortunately a poor historian. History also obtained from the medical record. Patient had recently been admitted and evaluated for hematuria. She had [facility] outpatient follow-up however she continued to have significant hematuria. According to the record she was not feeling well yesterday and had an episode of vomiting. Patient brought to the emergency room this morning and admitted for acute renal failure due to obstructive uropathy. Patient remained somnolent and relatively hypotensive on the floor after admission and the critical care service was consulted. Patient was transferred to the ICU and found to be encephalopathic and hypotensive. Past Med Surg Social Fam HX - Past Medical History Medical history: cardiomyopathy, CHF, coronary artery disease, CVA, diabetes, GERD, hyperlipidemia, hypertension, kidney stones, myocardial infarction, peripheral artery disease, renal disease, TIA Additional medical history: renal insufficiency, blood thinner Psychiatric history: depression - Past Surgical History Surgical History: appendectomy, breast surgery, carotid endarterectomy, cholecystectomy, coronary bypass (CABG), hysterectomy, pacemaker/AICD, LE vascular intervention Additional surgical history: cyst removed in left breast, left chest pacer/AICD - Social History Smoking Status: Former smoker Smokeless Tobacco Status: No Alcohol use: none Drug use: none - Family History Mother Living Status: Hx Family Cardiac Disorders: Yes (HTN) Hx Family Endocrine Disorder: Yes (diabetes) Hx Family Neurologic Disorders: Yes (2 strokes) Father Living Status: Hx Family Cardiac Disorders: Yes Hx Family Respiratory Disorders: Yes Hx Family Neurologic Disorders: Yes Medications and Allergies Aspirin Enteric Coated [Aspirin EC] 81 mg PO DAILY 08/20/15 [History] Metoprolol XL (24 HR) Succ [Toprol Xl] 50 mg PO DAILY #30 tab.er.24h 01/07/16 [ Rx] Insulin Glargine,Hum.rec.anlog [Toujeo Solostar] 45 units SQ HS 06/10/16 [ History] Multivit-Minerals/Folic/Ginkgo [One Daily For Women 50+ Adv Tb] 1 tab PO DAILY 06/10/16 [History] Furosemide [Lasix] 40 mg PO QAM 10/03/16 [History] Insulin ASPART [Novolog Flexpen] 25 unit SQ TIDWM 10/03/16 [History] Losartan Potassium [Cozaar] 50 mg PO DAILY 10/03/16 [History] Clopidogrel [Plavix] 75 mg PO DAILY 11/03/17 [History] Oxybutynin Chloride [Ditropan Xl] 10 mg PO DAILY 11/03/17 [History] Rosuvastatin Calcium [Rosuvastatin Calcium] 10 mg PO HS 11/03/17 [History] Ascorbic Acid [Vitamin C] 500 mg PO BID 11/17/17 [History] Ergocalciferol (VITAMIN D2) [Vitamin D2] 50,000 unit PO QWEEK 11/17/17 [History] Furosemide [Lasix] 20 mg PO QPM 11/17/17 [History] 3 Allergy/AdvReac Type Severity Reaction Status Date / Time venom-honey bee Allergy Severe Swelling Verified 11/03/17 10:53 [bee venom (honey bee)] of Lip/Tongue/Throat Cortisone Allergy Mild Hives Verified 11/03/17 10:53 Penicillins Allergy See Verified 11/03/17 10:53 Comments NSAIDS (Non-Steroidal AdvReac Mild UPSET Verified 11/03/17 10:53 Anti-Inflamma STOMACH cefazolin [From Ancef] AdvReac Hives Verified 11/03/17 10:53 Bfvjdkc-Myx-Str Reductase AdvReac Muscle Pain Verified 11/03/17 10:53 Inhibitor [Statins] GRAPE FLAVOR Allergy Mild Swelling Uncoded 11/03/17 10:53 of the Eye ROS unobtainable: due to mental status All Systems: The remainder of the systems were reviewed and are negative Physical Examination Vital Signs: Vital Signs, Last 4 Hours Pulse Resp BP Pulse Ox 11/17/17 17:00 84 18 92/44 99 11/17/17 16:00 95 12 101/82 95 11/17/17 15:30 80 General appearance: lethargic ENT: oropharynx dry Effort: normal Auscultation: bilateral: diminished breath sounds Cardiovascular: regular rate and rhythm Gastrointestinal: hypoactive bowel sounds, soft, tender (mild diffuse) Extremities: no cyanosis, edema (trace LE bilaterally) normal mental status, non-focal exam Results - Laboratory Findings CBC and BMP: 11/17/17 11:27 11/17/17 15:51 ABG ABG pH 7.41 pH Units (7.32-7.45) 11/17/17 15:41 ABG pCO2 27 mmHg (35-45) L 11/17/17 15:41 ABG pO2 80 mmHg (85-104) L 11/17/17 15:41 ABG O2 Saturation 96 % (95-98) 11/17/17 15:41 PT/INR, D-dimer PT 19.4 Seconds (9.4-12.1) H 11/17/17 15:51 Abnormal lab findings: Abnormal lab results WBC 14.6 K/mcL (4.3-11.1) H 11/17/17 11:27 RBC 3.49 M/mcL (3.82-4.97) L 11/17/17 11:27 Hgb 9.8 g/dL (11.5-15.4) L 11/17/17 11:27 Hct 31.0 % (35.3-44.9) L 11/17/17 11:27 RDW 14.7 % (11.5-14.5) H 11/17/17 11:27 Plt Count 420 K/mcL (140-400) H 11/17/17 11:27 Neutrophils # 14.0 K/mcL (1.6-8.9) H 11/17/17 11:27 Lymphocytes # 0.3 K/mcL (0.6-4.6) L 11/17/17 11:27 Platelet Estimate Slight increase (Normal) H 11/17/17 11:27 PT 19.4 Seconds (9.4-12.1) H 11/17/17 15:51 ABG pCO2 27 mmHg (35-45) L 11/17/17 15:41 ABG pO2 80 mmHg (85-104) L 11/17/17 15:41 ABG HCO3 17 mEq/L (21-27) L 11/17/17 15:41 ABG Total CO2 18 mEq/L (20-26) L 11/17/17 15:41 ABG Base Excess -7 mEq/L (-2 to 3) L 11/17/17 15:41 Carbon Dioxide 18 mEq/L (23-29) L 11/17/17 15:51 BUN 111 mg/dL (8-23) H 11/17/17 15:51 Creatinine 5.41 mg/dL (0.60-1.20) H 11/17/17 15:51 Est GFR ( Amer) 9 (> 60) L 11/17/17 15:51 Est GFR (Non-Af Amer) 8 (> 60) L 11/17/17 15:51 Glucose 128 mg/dL (70-105) H 11/17/17 15:51 POC Glucose 149 mg/dL (70-99) H 11/17/17 14:31 Calculated Osmolality 319 (280-300) H 11/17/17 15:51 Lactic Acid 2.3 mmol/L (0.5-2.2) H 11/17/17 15:13 Calcium 7.8 mg/dL (8.6-10.3) L 11/17/17 15:51 Venous Ioniz Calcium 1.01 mmol/L (1.15-1.35) L 11/17/17 16:17 Direct Bilirubin 0.5 mg/dL (0.0-0.2) H 11/17/17 15:51 Alkaline Phosphatase 135 Units/L (34-104) H 11/17/17 15:51 Serum Total Protein 6.3 g/dL (6.4-8.9) L 11/17/17 15:51 Albumin 3.2 g/dL (3.5-5.7) L 11/17/17 15:51 Albumin/Globulin Ratio 1.0 (1.1-2.2) L 11/17/17 15:51 Ur Specimen Adequacy See below A 11/17/17 04:58 Urine Color Red (Yellow) A 11/17/17 04:58 Ur Specific Husser > 1.030 (1.010-1.025) H 11/17/17 04:58 Urine Protein >=1000 mg/dL (Neg-Trace) H 11/17/17 04:58 Urine Ketones Trace mg/dL (Negative) H 11/17/17 04:58 Urine Blood Large (Negative) H 11/17/17 04:58 Urine Nitrite Positive (Negative) A 11/17/17 04:58 Urine Bilirubin Moderate (Negative) H 11/17/17 04:58 Ur Leukocyte Esterase Small (Negative) H 11/17/17 04:58 Ur Culture Indicated? YES (NO) A 11/17/17 04:58 - Clinical Findings Intake & Output: Intake & Output 11/17/17 11/17/17 11/17/17 07:59 15:59 23:59 Intake Total 2750 / 5450 2900 / 2900 Output Total 1400 / 2800 2400 / 2400 Balance 1350 / 2650 500 / 500 Consult Discharge Plan - Plan Referrals: Wale Lam DO [Primary Care Provider] - <Benjamin Parry W - Last Filed: 11/17/17 20:18> Date of Encounter: 11/17/17 All Systems: The remainder of the systems were reviewed and are negative Physical Examination Vital Signs: Vital Signs, Last 4 Hours Pulse Resp BP Pulse Ox 11/17/17 18:00 76 11 89/44 99 11/17/17 17:00 84 18 92/44 99 11/17/17 16:00 95 12 101/82 95 11/17/17 15:30 80 Results - Laboratory Findings CBC and BMP: 11/17/17 11:27 11/17/17 15:51 ABG ABG pH 7.41 pH Units (7.32-7.45) 11/17/17 15:41 ABG pCO2 27 mmHg (35-45) L 11/17/17 15:41 ABG pO2 80 mmHg (85-104) L 11/17/17 15:41 ABG O2 Saturation 96 % (95-98) 11/17/17 15:41 PT/INR, D-dimer PT 19.4 Seconds (9.4-12.1) H 11/17/17 15:51 Abnormal lab findings: Abnormal lab results WBC 14.6 K/mcL (4.3-11.1) H 11/17/17 11:27 RBC 3.49 M/mcL (3.82-4.97) L 11/17/17 11:27 Hgb 9.8 g/dL (11.5-15.4) L 11/17/17 11:27 Hct 31.0 % (35.3-44.9) L 11/17/17 11:27 RDW 14.7 % (11.5-14.5) H 11/17/17 11:27 Plt Count 420 K/mcL (140-400) H 11/17/17 11:27 Neutrophils # 14.0 K/mcL (1.6-8.9) H 11/17/17 11:27 Lymphocytes # 0.3 K/mcL (0.6-4.6) L 11/17/17 11:27 Platelet Estimate Slight increase (Normal) H 11/17/17 11:27 PT 19.4 Seconds (9.4-12.1) H 11/17/17 15:51 ABG pCO2 27 mmHg (35-45) L 11/17/17 15:41 ABG pO2 80 mmHg (85-104) L 11/17/17 15:41 ABG HCO3 17 mEq/L (21-27) L 11/17/17 15:41 ABG Total CO2 18 mEq/L (20-26) L 11/17/17 15:41 ABG Base Excess -7 mEq/L (-2 to 3) L 11/17/17 15:41 Carbon Dioxide 18 mEq/L (23-29) L 11/17/17 15:51 BUN 111 mg/dL (8-23) H 11/17/17 15:51 Creatinine 5.41 mg/dL (0.60-1.20) H 11/17/17 15:51 Est GFR ( Amer) 9 (> 60) L 11/17/17 15:51 Est GFR (Non-Af Amer) 8 (> 60) L 11/17/17 15:51 Glucose 128 mg/dL (70-105) H 11/17/17 15:51 POC Glucose 126 mg/dL (70-99) H 11/17/17 18:05 Calculated Osmolality 319 (280-300) H 11/17/17 15:51 Lactic Acid 2.3 mmol/L (0.5-2.2) H 11/17/17 15:13 Calcium 7.8 mg/dL (8.6-10.3) L 11/17/17 15:51 Venous Ioniz Calcium 1.01 mmol/L (1.15-1.35) L 11/17/17 16:17 Direct Bilirubin 0.5 mg/dL (0.0-0.2) H 11/17/17 15:51 Alkaline Phosphatase 135 Units/L (34-104) H 11/17/17 15:51 Serum Total Protein 6.3 g/dL (6.4-8.9) L 11/17/17 15:51 Albumin 3.2 g/dL (3.5-5.7) L 11/17/17 15:51 Albumin/Globulin Ratio 1.0 (1.1-2.2) L 11/17/17 15:51 Ur Specimen Adequacy See below A 11/17/17 04:58 Urine Color Red (Yellow) A 11/17/17 04:58 Ur Specific Husser > 1.030 (1.010-1.025) H 11/17/17 04:58 Urine Protein >=1000 mg/dL (Neg-Trace) H 11/17/17 04:58 Urine Ketones Trace mg/dL (Negative) H 11/17/17 04:58 Urine Blood Large (Negative) H 11/17/17 04:58 Urine Nitrite Positive (Negative) A 11/17/17 04:58 Urine Bilirubin Moderate (Negative) H 11/17/17 04:58 Ur Leukocyte Esterase Small (Negative) H 11/17/17 04:58 Ur Culture Indicated? YES (NO) A 11/17/17 04:58 - Clinical Findings Intake & Output: Intake & Output 11/17/17 11/17/17 11/17/17 07:59 15:59 23:59 Intake Total 2750 / 5450 2900 / 2900 Output Total 1400 / 2800 2400 / 2400 Balance 1350 / 2650 500 / 500 - Attending Attestation I examined this patient and my medical decision-making was reviewed with the Resident Physician. I agree with the documented findings, disposition and treatment plan as described except to the extent set forth below. We independently had [id number] contact with the patient I spent 33min of Critical Care time with this patient. It involved decision making of high complexity to assess, manipulate, and support vital organ system failure and/or to prevent further life threatening deterioration of the patient' s condition. The time involved in the performance of separately reportable procedures was not counted toward critical care time. Patient seen and examined at bedside Labs, radiology, chart personally reviewed. Management was reviewed during multidisciplinary critical care rounds. MEAL MILLER: Encephalopathy which is likely related to sepsis and hypotension patient is lethargic but does arouse and there is no focal deficit Pulm: Acceptable gas exchange Cards: Shock which is likely secondary to hypovolemia complicated by sepsis lactate is elevated from earlier in the day but not greater than 4. Volume resuscitation has been initiated with a combination of crystalloid and colloid we will trend lactate. There is no evidence of cardiac ischemia presently GI: Continue to monitor Nutrition: Nothing by mouth for now Renal: Acute kidney injury which is secondary to the obstructive uropathy which is likely a manifestation of blood clots from the bladder obstructing bilateral ureters and causing hydronephrosis urology's been consulted plan for ureteral stent taste upon clinical course she has mild hyper kalemia which within a follow closely and may need medical management overnight nephrology is also been made aware of the case no acute clear indication for dialysis however. Continue bladder irrigation per urology recommendations UOP Monitored, Cont to Trend sCr and monitor Electrolytes. ID: Septic shock likely secondary to urinary tract and infection given underlying hydronephrosis she is on broad-spectrum antimicrobials for this with planned to de-escalate cultures have been obtained Heme/Onc: DVT prophylaxis given Endo: Glucose Monitored Integ/MSK: Skin Care per routine ICU Nursing Protocol to prevent ulcers. Lines: All lines examined without evidence of infection : Dispo: In ICU for critical illness CODE: Full her (NOK) has been updated at bedside
--- NOTE | 2017-11-17 18:29 | Sepsis Event Note ---
<Juan David Walden G - Last Filed: 11/17/17 18:27> Sepsis Reassessment Note - Evaluation Sepsis Screen: Sepsis Risk Current Stage of Sepsis: severe sepsis Possible Source of Sepsis: genitourinary - Focused Exam Date of Encounter: 11/17/17 Time of Encounter: 15:00 Vital Signs: Vital Signs Pulse Resp BP Pulse Ox 11/17/17 18:00 76 11 89/44 99 11/17/17 17:00 84 18 92/44 99 11/17/17 16:00 95 12 101/82 95 11/17/17 15:30 80 Respiratory Exam: Present: decreased breath sounds Cardiovascular Exam: Present: RRR Capillary Refill: < 2 seconds Peripheral Pulse Strength: 3+ normal Peripheral Pulse Location: Radial Skin Exam: pale - Reassessment Comments Comments: Patient transfer the ICU due to sepsis. This time assessment assessment is ongoing however she picked appears to be in minimum of severe sepsis. Fluid resuscitation is ongoing. Central line has been placed in case pressors are needed. <Benjamin Parry W - Last Filed: 11/17/17 20:19> Sepsis Reassessment Note - Focused Exam Vital Signs: Vital Signs Temp Pulse Resp BP Pulse Ox 11/17/17 20:00 76 24 119/61 99 11/17/17 19:57 75 11/17/17 19:30 98.2 F 11/17/17 19:00 73 22 111/50 99 11/17/17 18:00 76 11 89/44 99 11/17/17 17:00 84 18 92/44 99 11/17/17 16:00 95 12 101/82 95 11/17/17 15:30 80
[2017-11-17] MEDS ORDERED: Insulin LISPRO 300 UNITS/3 ML VIAL SQ SCH (21:00)
[2017-11-17] MEDS ORDERED: Insulin DETEMIR 100 UNIT/ML X5UNITS SQ SCH (21:00)
[2017-11-17 21:26] LABS: Hematocrit 22.9 % (35.3-44.9); Mean Corpuscular HGB Conc 31.4 g/dL (31.6-35.5); Mean Corpuscular Hemoglobin 28.3 pg (28.0-33.3); Mean Corpuscular Volume 90.2 fL (83.0-100.0); Platelet Count 281 K/mcL (140-400); Red Blood Count 2.54 M/mcL (3.82-4.97)
[2017-11-17 21:32] LABS: Hemoglobin 7.2 g/dL (11.5-15.4)
[2017-11-17 21:35] LABS: Lymphocytes # 0.5 K/mcL (0.6-4.6); Monocytes # 1.4 K/mcL (0.0-1.3); Neutrophils # 21.9 K/mcL (1.6-8.9)
[2017-11-17 22:30] LABS: Calcium 7.9 mg/dL (8.6-10.3); Potassium 5.6 mEq/L (3.5-5.1)
[2017-11-17] MEDS ORDERED: Meropenem 500 MG in Water for inj. (sterile) 20 ML 5 ML IVP SCH (23:00)
[2017-11-18] MEDS ORDERED: OXYCODONE Oral CONC 10 MG/0.5 ML ORAL.SYG SL ONE (01:47)
[2017-11-18 03:41] LABS: Basophils % 0.2 %; Eosinophils % 0.1 %; Hematocrit 22.4 % (35.3-44.9); Immature Granulocytes % 0.7 % (0-4); Lymphocytes # 0.5 K/mcL (0.6-4.6); Lymphocytes % 2.6 %; Mean Corpuscular HGB Conc 31.3 g/dL (31.6-35.5); Mean Corpuscular Hemoglobin 28.5 pg (28.0-33.3); Mean Corpuscular Volume 91.1 fL (83.0-100.0); Mean Platelet Volume 10.7 fL (9.4-12.4); Monocytes # 0.8 K/mcL (0.0-1.3); Monocytes % 4.1 %; Platelet Count 265 K/mcL (140-400); Red Blood Count 2.46 M/mcL (3.82-4.97); Red Cell Distribution Width 15.1 % (11.5-14.5); Segmented Neutrophils % 92.3 %
[2017-11-18 03:44] LABS: Neutrophils # 17.6 K/mcL (1.6-8.9)
[2017-11-18 03:48] LABS: INR 1.5; Prothrombin Time 17.1 Seconds (9.4-12.1)
[2017-11-18 03:55] LABS: Calcium 7.8 mg/dL (8.6-10.3); Magnesium 2.4 mg/dL (1.6-2.6); Phosphorous 5.4 mg/dL (2.7-4.5); Potassium 5.6 mEq/L (3.5-5.1)
[2017-11-18 04:20] LABS: Platelet Estimate Normal (Normal)
--- NOTE | 2017-11-18 06:38 | Urology Progress Note ---
Date of Encounter: 11/18/17 Time of Encounter: 06:35 - Assessment and Plan (1) Hematuria Current Visit: Yes Status: Acute Assessment and plan: renal function has not improved. continued issues with clots. need to proceed with cystoscopy and B ureteral stent placement bc of recent evidence of hydronephrosis and no improvement in GFR. will evacuate any residual clot and look for source of hematuria. will biopsy or perform TURBT if indicated. Qualifiers: Hematuria type: gross Qualified Code(s): R31.0 - Gross hematuria Progress Note Narrative: continued clots overnight requiring irrigation. Cr remains elevated. unable to determine UO bc CBI. BP better this AM. Hgb down to 7 Objective Initial Vital Signs Temp Pulse Resp BP Pulse Ox 98.2 F 97 18 125/63 100 11/17/17 04:49 11/17/17 04:49 11/17/17 04:49 11/17/17 04:49 11/17/17 04:49 - General physical appearance Present: no distress - Additional Exam urine much clearer off CBI. still small hematuria. - Labs 11/18/17 03:29 11/18/17 03:29 Diabetes panel 11/17/17 11/17/17 11/18/17 Range/Units 15:51 21:22 03:29 Sodium 136 134 L 134 L (136-145) mEq/L Potassium 5.0 5.6 H 5.6 H (3.5-5.1) mEq/L Chloride 106 105 106 (98-107) mEq/L Carbon Dioxide 18 L 16 L 15 L (23-29) mEq/L BUN 111 H 112 H 116 H (8-23) mg/dL Creatinine 5.41 H 5.43 H 5.36 H (0.60-1.20) mg/dL Glucose 128 H 175 H 209 H (70-105) mg/dL Calcium 7.8 L 7.9 L 7.8 L (8.6-10.3) mg/dL AST 29 (13-39) Units/L ALT 14 (7-52) Units/L Alkaline Phosphatase 135 H (34-104) Units/L Albumin 3.2 L (3.5-5.7) g/dL Calcium panel 11/17/17 11/17/17 11/18/17 Range/Units 15:51 21:22 03:29 Calcium 7.8 L 7.9 L 7.8 L (8.6-10.3) mg/dL Phosphorus 3.8 5.4 H (2.7-4.5) mg/dL Albumin 3.2 L (3.5-5.7) g/dL Pituitary panel 11/17/17 11/17/17 11/18/17 Range/Units 15:51 21:22 03:29 Sodium 136 134 L 134 L (136-145) mEq/L Potassium 5.0 5.6 H 5.6 H (3.5-5.1) mEq/L Chloride 106 105 106 (98-107) mEq/L Carbon Dioxide 18 L 16 L 15 L (23-29) mEq/L BUN 111 H 112 H 116 H (8-23) mg/dL Creatinine 5.41 H 5.43 H 5.36 H (0.60-1.20) mg/dL Glucose 128 H 175 H 209 H (70-105) mg/dL Calcium 7.8 L 7.9 L 7.8 L (8.6-10.3) mg/dL Adrenal panel 11/17/17 11/17/17 11/18/17 Range/Units 15:51 21:22 03:29 Sodium 136 134 L 134 L (136-145) mEq/L Potassium 5.0 5.6 H 5.6 H (3.5-5.1) mEq/L Chloride 106 105 106 (98-107) mEq/L Carbon Dioxide 18 L 16 L 15 L (23-29) mEq/L BUN 111 H 112 H 116 H (8-23) mg/dL Creatinine 5.41 H 5.43 H 5.36 H (0.60-1.20) mg/dL Glucose 128 H 175 H 209 H (70-105) mg/dL Calcium 7.8 L 7.9 L 7.8 L (8.6-10.3) mg/dL Total Bilirubin 0.9 (0.3-1.0) mg/dL AST 29 (13-39) Units/L ALT 14 (7-52) Units/L Alkaline Phosphatase 135 H (34-104) Units/L Albumin 3.2 L (3.5-5.7) g/dL Consult Discharge Plan - Plan Referrals: Wale Lam DO [Primary Care Provider] -
--- NOTE | 2017-11-18 08:13 | Electrocardiograph Report ---
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
[2017-11-18] MEDS: Insulin LISPRO 300 UNITS/3 ML VIAL SQ SCH ×3 (09:07→17:49)
[2017-11-18] MEDS: Miconazole 2% ointment 114 GM TUBE TP SCH (09:07)
[2017-11-18] MEDS: Metoprolol XL (24 HR) Succ 50 MG TAB.ER.24H PO SCH (09:08)
[2017-11-18] MEDS: Multivit/Ca/Min/Fe/FA 1 TAB TABLET PO SCH (09:08)
[2017-11-18] MEDS ORDERED: 0.9 % Sodium Chloride 250 ML ONE (09:10)
--- NOTE | 2017-11-18 09:28 | Pulmonology Progress Note ---
<SohanBenjamin W - Last Filed: 11/18/17 09:40> Date of Encounter: 11/18/17 Objective PUL Vital signs: Last Vital Signs Temp 97.5 F L 11/18/17 07:47 Pulse 68 11/18/17 08:15 Resp 19 11/18/17 08:15 BP 112/63 11/18/17 08:15 Pulse Ox 99 11/18/17 08:15 Results - Laboratory Findings CBC and BMP: 11/18/17 03:29 11/18/17 03:29 ABG ABG pH 7.41 pH Units (7.32-7.45) 11/17/17 15:41 ABG pCO2 27 mmHg (35-45) L 11/17/17 15:41 ABG pO2 80 mmHg (85-104) L 11/17/17 15:41 ABG O2 Saturation 96 % (95-98) 11/17/17 15:41 PT/INR, D-dimer PT 17.1 Seconds (9.4-12.1) H 11/18/17 03:29 Abnormal lab findings: Abnormal lab results WBC 19.1 K/mcL (4.3-11.1) H 11/18/17 03:29 RBC 2.46 M/mcL (3.82-4.97) L 11/18/17 03:29 Hgb 7.0 g/dL (11.5-15.4) L 11/18/17 03:29 Hct 22.4 % (35.3-44.9) L 11/18/17 03:29 MCHC 31.3 g/dL (31.6-35.5) L 11/18/17 03:29 RDW 15.1 % (11.5-14.5) H 11/18/17 03:29 Band Neutrophils % 74.0 % (0-4) H 11/17/17 21:15 Neutrophils # 17.6 K/mcL (1.6-8.9) H 11/18/17 03:29 Lymphocytes # 0.5 K/mcL (0.6-4.6) L 11/18/17 03:29 PT 17.1 Seconds (9.4-12.1) H 11/18/17 03:29 ABG pCO2 27 mmHg (35-45) L 11/17/17 15:41 ABG pO2 80 mmHg (85-104) L 11/17/17 15:41 ABG HCO3 17 mEq/L (21-27) L 11/17/17 15:41 ABG Total CO2 18 mEq/L (20-26) L 11/17/17 15:41 ABG Base Excess -7 mEq/L (-2 to 3) L 11/17/17 15:41 Sodium 134 mEq/L (136-145) L 11/18/17 03:29 Potassium 5.6 mEq/L (3.5-5.1) H 11/18/17 03:29 Carbon Dioxide 15 mEq/L (23-29) L 11/18/17 03:29 BUN 116 mg/dL (8-23) H 11/18/17 03:29 Creatinine 5.36 mg/dL (0.60-1.20) H 11/18/17 03:29 Est GFR ( Amer) 10 (> 60) L 11/18/17 03:29 Est GFR (Non-Af Amer) 8 (> 60) L 11/18/17 03:29 Glucose 209 mg/dL (70-105) H 11/18/17 03:29 POC Glucose 174 mg/dL (70-99) H 11/18/17 07:26 Calculated Osmolality 321 (280-300) H 11/18/17 03:29 Calcium 7.8 mg/dL (8.6-10.3) L 11/18/17 03:29 Venous Ioniz Calcium 1.01 mmol/L (1.15-1.35) L 11/17/17 16:17 Phosphorus 5.4 mg/dL (2.7-4.5) H 11/18/17 03:29 Direct Bilirubin 0.5 mg/dL (0.0-0.2) H 11/17/17 15:51 Alkaline Phosphatase 135 Units/L (34-104) H 11/17/17 15:51 Serum Total Protein 6.3 g/dL (6.4-8.9) L 11/17/17 15:51 Albumin 3.2 g/dL (3.5-5.7) L 11/17/17 15:51 Albumin/Globulin Ratio 1.0 (1.1-2.2) L 11/17/17 15:51 Ur Specimen Adequacy See below A 11/17/17 04:58 Urine Color Red (Yellow) A 11/17/17 04:58 Ur Specific [place] > 1.030 (1.010-1.025) H 11/17/17 04:58 Urine Protein >=1000 mg/dL (Neg-Trace) H 11/17/17 04:58 Urine Ketones Trace mg/dL (Negative) H 11/17/17 04:58 Urine Blood Large (Negative) H 11/17/17 04:58 Urine Nitrite Positive (Negative) A 11/17/17 04:58 Urine Bilirubin Moderate (Negative) H 11/17/17 04:58 Ur Leukocyte Esterase Small (Negative) H 11/17/17 04:58 Ur Culture Indicated? YES (NO) A 11/17/17 04:58 - Clinical Findings Intake & Output: Intake & Output 11/17/17 11/18/17 11/18/17 23:59 07:59 15:59 Intake Total 3219.3 / 3219.3 0 / 0 Output Total 3800 / 3800 475 / 475 Balance -580.7 / -580.7 -475 / -475 Weight 102.5 kg Consult Discharge Plan - Plan Referrals: aWle Lam DO [Primary Care Provider] - - Attending Attestation I examined this patient and my medical decision-making was reviewed with the Resident Physician. I agree with the documented findings, disposition and treatment plan as described except to the extent set forth below. We independently had [id number] contact with the patient Patient seen and examined at bedside Labs, radiology, chart personally reviewed. Management was reviewed during multidisciplinary critical care rounds. HEMODIALYSIS RN: Patient is much more awake and alert encephalopathy has resolved no focal deficits Pulm: Acceptable oxygenation Cards: Dysuria shock has resolved and she has been weaned off vasopressors GI: Continue to monitor Nutrition: Nothing by mouth for now Renal: Obstructive uropathy with acute kidney injury plan for ureteral stents today. UOP Monitored, Cont to Trend sCr and monitor Electrolytes. ID: Treating for sepsis likely secondary to urinary system source cultures pending de-escalate to cefepime from meropenem patient has a penicillin allergy however she has tolerated ceftriaxone in the past on multiple occasions. Cultures pending Heme/Onc: She has had a drop in her H&H was I suspect is related to hemodilution as well as ongoing bleeding from her bladder. She is receiving DVT prophylaxis. We will continue to monitor H&H Endo: Glucose Monitored Integ/MSK: Skin Care per routine ICU Nursing Protocol to prevent ulcers. Lines: All lines examined without evidence of infection : Dispo: Remain in ICU for close monitoring pending surgical evaluation CODE: Full her was updated at bedside <Juan David Walden - Last Filed: 11/18/17 11:15> Date of Encounter: 11/18/17 Time of Encounter: 09:28 Assessment and Plan (1) Septic shock Current Visit: Yes Status: Acute Secondary to presumed UTI. Resolved at this time. Patient did require vasopressors last night however these have been off since 11 PM last night. Lactate normal, blood pressures been stable. De-escalate antibiotics meropenem to cefepime and await further culture results. Blood cultures pending. (2) Acute encephalopathy Current Visit: Yes Status: Acute Improved from yesterday. Likely multifactorial in the setting of sepsis and hypotension. No focal deficits. Continue to monitor. (3) Acute kidney injury superimposed on chronic kidney disease Current Visit: Yes Status: Chronic Renal function stable today. Likely multifactorial setting of prerenal azotemia as well as post renal obstruction. Nephrology following, no indication for acute dialysis at this time however patient may require this hospitalization. Plan for endoscopy today for bilateral ureteral stent placement. Continue cautious fluid hydration given known EF. Potassium mildly elevated, we will give a dose of Kayexalate. (4) Anemia Current Visit: Yes Status: Acute Likely multifactorial in the setting of acute blood loss within the bladder as well as hemodilution the setting of fluid resuscitation yesterday. Hemoglobin is 10.3 on presentation is trended down to 7.0. We will give 1 unit of packed red blood cells. Recheck H&H this afternoon. Plan for cystoscopy today to investigate causes of hematuria. Qualifiers: Anemia type: unspecified type Qualified Code(s): D64.9 - Anemia, unspecified (5) Hematuria Current Visit: Yes Status: Acute Source unknown. Likely causes are infection versus malignancy. Patient continues to have hematuria with large clots. Urology following and placed on large Elizondo catheter for irrigation. Plan for cystoscopy today for further evaluation. Qualifiers: Hematuria type: gross Qualified Code(s): R31.0 - Gross hematuria (6) UTI (urinary tract infection) Current Visit: Yes Status: Acute UA suggestive of urinary tract infection. Likely cause of patient's sepsis. Cultures pending. Transition from meropenem to cefepime today, will de- escalate further based on culture results Qualifiers: Urinary tract infection type: site unspecified Hematuria presence: with hematuria Qualified Code(s): N39.0 - Urinary tract infection, site not specified; R31.9 - Hematuria, unspecified (7) Type 2 diabetes mellitus Current Visit: No Status: Acute Blood sugars mildly elevated. Patient is nothing by mouth today for procedure. Once patient is able to eat we will increase insulin coverage for better glucose control. Qualifiers: Diabetes mellitus chcf insulin use: with terminal operations supervisor use Diabetes mellitus complication status: with kidney complications Diabetes mellitus complication detail: with chronic kidney disease Chronic kidney disease stage : stage 4 (severe) Qualified Code(s): E11.22 - Type 2 diabetes mellitus with diabetic chronic kidney disease; N18.4 - Chronic kidney disease, stage 4 (severe ); Z79.4 - ad terminal makeup operator (current) use of insulin (8) Chronic systolic heart failure Current Visit: No Status: Acute No evidence of acute failure. Has been given fluids for sepsis as discussed above. We will continue to monitor respiratory status and evaluate for pulmonary edema. (9) DVT prophylaxis Current Visit: Yes Status: Acute Continue EPCDs for now given concerns for active bleeding. Subjective Principal diagnosis: Hematuria, septic shock Interval history: Patient seen and examined at bedside. She is more awake and alert today however she still somewhat altered. She has no complaints at this time. No acute events overnight. Objective PUL Vital signs: Last Vital Signs Temp 97.5 F L 11/18/17 07:47 Pulse 68 11/18/17 08:15 Resp 19 11/18/17 08:15 BP 112/63 11/18/17 08:15 Pulse Ox 99 11/18/17 08:15 General appearance: no acute distress, lethargic ENT: oropharynx moist Auscultation: bilateral: diminished breath sounds Cardiovascular: regular rate and rhythm Gastrointestinal: normoactive bowel sounds, soft, tender (Mild, diffuse), non- distended Extremities: no cyanosis, no clubbing, edema (Trace lower extremity), other ( Localized erythema to the lower extremity bilaterally) non-focal exam Results - Laboratory Findings CBC and BMP: 11/18/17 03:29 11/18/17 03:29 ABG ABG pH 7.41 pH Units (7.32-7.45) 11/17/17 15:41 ABG pCO2 27 mmHg (35-45) L 11/17/17 15:41 ABG pO2 80 mmHg (85-104) L 11/17/17 15:41 ABG O2 Saturation 96 % (95-98) 11/17/17 15:41 PT/INR, D-dimer PT 17.1 Seconds (9.4-12.1) H 11/18/17 03:29 Abnormal lab findings: Abnormal lab results WBC 19.1 K/mcL (4.3-11.1) H 11/18/17 03:29 RBC 2.46 M/mcL (3.82-4.97) L 11/18/17 03:29 Hgb 7.0 g/dL (11.5-15.4) L 11/18/17 03:29 Hct 22.4 % (35.3-44.9) L 11/18/17 03:29 MCHC 31.3 g/dL (31.6-35.5) L 11/18/17 03:29 RDW 15.1 % (11.5-14.5) H 11/18/17 03:29 Band Neutrophils % 74.0 % (0-4) H 11/17/17 21:15 Neutrophils # 17.6 K/mcL (1.6-8.9) H 11/18/17 03:29 Lymphocytes # 0.5 K/mcL (0.6-4.6) L 11/18/17 03:29 PT 17.1 Seconds (9.4-12.1) H 11/18/17 03:29 ABG pCO2 27 mmHg (35-45) L 11/17/17 15:41 ABG pO2 80 mmHg (85-104) L 11/17/17 15:41 ABG HCO3 17 mEq/L (21-27) L 11/17/17 15:41 ABG Total CO2 18 mEq/L (20-26) L 11/17/17 15:41 ABG Base Excess -7 mEq/L (-2 to 3) L 11/17/17 15:41 Sodium 134 mEq/L (136-145) L 11/18/17 03:29 Potassium 5.6 mEq/L (3.5-5.1) H 11/18/17 03:29 Carbon Dioxide 15 mEq/L (23-29) L 11/18/17 03:29 BUN 116 mg/dL (8-23) H 11/18/17 03:29 Creatinine 5.36 mg/dL (0.60-1.20) H 11/18/17 03:29 Est GFR ( Amer) 10 (> 60) L 11/18/17 03:29 Est GFR (Non-Af Amer) 8 (> 60) L 11/18/17 03:29 Glucose 209 mg/dL (70-105) H 11/18/17 03:29 POC Glucose 174 mg/dL (70-99) H 11/18/17 07:26 Calculated Osmolality 321 (280-300) H 11/18/17 03:29 Calcium 7.8 mg/dL (8.6-10.3) L 11/18/17 03:29 Venous Ioniz Calcium 1.01 mmol/L (1.15-1.35) L 11/17/17 16:17 Phosphorus 5.4 mg/dL (2.7-4.5) H 11/18/17 03:29 Direct Bilirubin 0.5 mg/dL (0.0-0.2) H 11/17/17 15:51 Alkaline Phosphatase 135 Units/L (34-104) H 11/17/17 15:51 Serum Total Protein 6.3 g/dL (6.4-8.9) L 11/17/17 15:51 Albumin 3.2 g/dL (3.5-5.7) L 11/17/17 15:51 Albumin/Globulin Ratio 1.0 (1.1-2.2) L 11/17/17 15:51 Ur Specimen Adequacy See below A 11/17/17 04:58 Urine Color Red (Yellow) A 11/17/17 04:58 Ur Specific [place] > 1.030 (1.010-1.025) H 11/17/17 04:58 Urine Protein >=1000 mg/dL (Neg-Trace) H 11/17/17 04:58 Urine Ketones Trace mg/dL (Negative) H 11/17/17 04:58 Urine Blood Large (Negative) H 11/17/17 04:58 Urine Nitrite Positive (Negative) A 11/17/17 04:58 Urine Bilirubin Moderate (Negative) H 11/17/17 04:58 Ur Leukocyte Esterase Small (Negative) H 11/17/17 04:58 Ur Culture Indicated? YES (NO) A 11/17/17 04:58 - Clinical Findings Intake & Output: Intake & Output 11/17/17 11/18/17 11/18/17 23:59 07:59 15:59 Intake Total 3219.3 / 3219.3 0 / 0 Output Total 3800 / 3800 475 / 475 Balance -580.7 / -580.7 -475 / -475 Weight 102.5 kg - VTE Documentation of Mechanical Device: Intermittent pneumatic compression device
[2017-11-18 12:46] LABS: Sodium, Urine 55.9 mEq/L
--- NOTE | 2017-11-18 14:57 | Anesthesia Evaluation PreOp ---
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: CVA (residual RLE weakness) Other Medical History: Renal (acute kidney injury superimposed on chronic kidney disease), Diabetes Type II, GERD, Other (sepsis) Anesthesia History: No Prior Anesthetic Complications, Past Anesthesia Alcohol Use: none Drug use: none Medications and Allergies Aspirin Enteric Coated [Aspirin EC] 81 mg PO DAILY 08/20/15 [History] Metoprolol XL (24 HR) Succ [Toprol Xl] 50 mg PO DAILY #30 tab.er.24h 01/07/16 [ Rx] Insulin Glargine,Hum.rec.anlog [Toujeo Solostar] 45 units SQ HS 06/10/16 [ History] Multivit-Minerals/Folic/Ginkgo [One Daily For Women 50+ Adv Tb] 1 tab PO DAILY 06/10/16 [History] Furosemide [Lasix] 40 mg PO QAM 10/03/16 [History] Insulin ASPART [Novolog Flexpen] 25 unit SQ TIDWM 10/03/16 [History] Losartan Potassium [Cozaar] 50 mg PO DAILY 10/03/16 [History] Clopidogrel [Plavix] 75 mg PO DAILY 11/03/17 [History] Oxybutynin Chloride [Ditropan Xl] 10 mg PO DAILY 11/03/17 [History] Rosuvastatin Calcium [Rosuvastatin Calcium] 10 mg PO HS 11/03/17 [History] Ascorbic Acid [Vitamin C] 500 mg PO BID 11/17/17 [History] Ergocalciferol (VITAMIN D2) [Vitamin D2] 50,000 unit PO QWEEK 11/17/17 [History] Furosemide [Lasix] 20 mg PO QPM 11/17/17 [History] 3 Allergy/AdvReac Type Severity Reaction Status Date / Time venom-honey bee Allergy Severe Swelling Verified 11/03/17 10:53 [bee venom (honey bee)] of Lip/Tongue/Throat Cortisone Allergy Mild Hives Verified 11/03/17 10:53 Penicillins Allergy See Verified 11/03/17 10:53 Comments NSAIDS (Non-Steroidal AdvReac Mild UPSET Verified 11/03/17 10:53 Anti-Inflamma STOMACH cefazolin [From Ancef] AdvReac Hives Verified 11/03/17 10:53 Znuszfw-Cxi-Vum Reductase AdvReac Muscle Pain Verified 11/03/17 10:53 Inhibitor [Statins] GRAPE FLAVOR Allergy Mild Swelling Uncoded 11/03/17 10:53 of the Eye - Meds/Allergy Pre-op Review Medications Reviewed: Yes Allergies Reviewed: Yes Beta Blockers on Current Med List: Yes If Beta Blockers taken, Date/Time (Last Dose taken): 11/17/2017 at 0955 Anesthesia Results - Labs 11/18/17 03:29 11/18/17 03:29 - Imaging EKG: report reviewed (11/17/2017 ELECTRONIC ATRIAL PACEMAKER ELECTRONIC VENTRICULAR PACEMAKER ABNORMAL RHYTHM ECG) Additional studies: 10/03/2016 Echo Impressions: LVEF 30%. Moderately dilated left ventricle. Severe global left ventricular systolic dysfunction with regional variations. Moderate left ventricular diastolic dysfunction. Atypical septal motion consistent with paced rhythm. Right ventricle was not well visualized. Mild mitral regurgitation. No evidence of pulmonary hypertension. 04/23/2016 Limited Echo Impressions: Complete echocardiogram was performed on 04/05/16. This was a limited with contrast study to better assess LV systolic function. Moderate-severely dilated left ventricle. Severe left ventricular systolic dysfunction, LVEF 30%. There is global hypokinesis with regional variations. 01/05/2016 LEFT HEART CATH Indications: Non-Stemi, CHF Impressions: There is severe three vessel coronary artery disease. LVEF 20-25% S/P CABG 2 of 2 patent bypass grafts. 3+ Mitral Regurgitation. Recommendations: Optimal medical therapy of patient's disease. Aggressive risk factor modification. Anesthesia Exam Vital Signs/O2 Sat/Glucose, Most Recent Temp Pulse Resp BP Pulse Ox 99 F 73 22 132/57 98 11/18/17 12:31 11/18/17 13:30 11/18/17 13:30 11/18/17 13:30 11/18/17 13:30 Blood Glucose* 180 Height: 5'3''/1.6m Weight: 225 lbs/102.5 kg NPO (# of Hours): 8 - HEENT Mallampati: III Teeth: Missing, Poor dentition, Prosthesis Denture Type: Upper: Complete Oral Opening: Greater than 3 - REMOTE OPERATIONS PRODUCER LOC: Confused - Cardiac Rhythm: Regular Murmur: None - Pulmonary Breath Sounds: bilateral Clear Respiratory Effort: Symmetrical Anesthesia Assess/Plan ASA Score: 4 Modified Skip Scale for Level of Consciousness: Drowsy, but responsive to commands Anesthetic Plan: General Monitoring Plan: Standard Monitors Recovery Plan: PACU
--- NOTE | 2017-11-18 15:33 | Nephrology Progress Note ---
<KassidyTeja - Last Filed: 11/18/17 16:08> Date of Encounter: 11/18/17 Time of Encounter: 15:00 - Assessment and Plan (1) Acute kidney injury superimposed on chronic kidney disease Status: Chronic Patient became septic yesterday and was transferred to the ICU. Creatinine not improved. Current creatinine = 5.[address] bilateral stent today and remove any clots. Urine Na+ = 55.9, creatinine = 56, eosinophil = 0 FENA = 4%. This points to intrinsic injury/ ATN, likely secondary to sepsis Avoid nephrotoxic medications Will consider HD if patient's kidney function fails to improve after stent placement. (2) Bilateral hydronephrosis Current Visit: Yes Status: Acute CT abdomen: Urinary bladder has high density contents consistent with hemorrhage , of uncertain etiology. Bilateral hydroureteronephrosis has increased in the interval since prior study. No mass or stone is clearly visualized. Urology will place stent today. I expect improvement post-operatively (3) Hypertension Current Visit: No Status: Chronic Patient became septic and hypotensive yesterday evening. Currently stable. Hold blood pressure medications for now. Treat per primary team. Qualifiers: Hypertension type: essential hypertension Qualified Code(s): I10 - Essential (primary) hypertension Subjective Principal diagnosis: Hematuria, septic shock Interval history: Patient not at bedside. She has gone for procedure for bilateral stents. Objective - Vital Signs Vital signs: Vital Signs Temp Pulse Resp BP Pulse Ox 11/18/17 14:30 70 21 130/53 98 11/18/17 13:30 73 22 132/57 98 11/18/17 12:31 99 F 67 22 119/50 97 11/18/17 12:30 67 23 119/50 97 18 12:00 67 11/18/17 11:30 67 22 118/54 97 11/18/17 11:15 99.3 F 11/18/17 10:30 65 23 108/44 97 11/18/17 09:57 98.3 F 65 19 106/53 99 11/18/17 09:42 99.1 F 70 20 110/53 99 11/18/17 09:30 68 23 110/53 98 11/18/17 08:15 68 19 90/53 99 11/18/17 07:47 97.5 F L 11/18/17 05:59 64 12 103/47 100 08/17/18 05:00 66 12 101/41 100 11/18/17 03:51 67 12 92/40 100 11/18/17 03:35 65 11/18/17 03:24 98.6 F 11/18/17 03:00 65 22 99/45 97 11/18/17 02:00 69 22 105/49 97 11/18/17 01:00 67 22 119/57 97 11/18/17 00:00 65 22 99/49 97 11/17/17 23:30 98.7 F 11/17/17 23:08 70 11/17/17 23:00 69 26 121/79 98 11/17/17 22:00 68 26 102/46 98 11/17/17 21:00 72 23 117/49 99 11/17/17 20:00 76 24 119/61 99 11/17/17 19:57 75 11/17/17 19:30 98.2 F 11/17/17 19:00 73 22 111/50 99 11/17/17 18:00 76 11 89/44 99 11/17/17 17:00 84 18 92/44 99 11/17/17 16:00 95 12 101/82 95 11/17/17 15:30 80 Intake and Output 11/17/17 11/18/17 11/18/17 23:59 07:59 15:59 Intake Total 3219.3 / 3219.3 0 / 0 600 / 600 Output Total 3800 / 3800 475 / 475 375 / 375 Balance -580.7 / -580.7 -475 / -475 225 / 225 Intake: IV Fluids 319.3 / 319.3 ALBURX 5% 12.5 gm In 250 ml @ 250 / 250 60 mls/hr IVC .Q4H10M MAGAN Rx#: [id number] Levophed 4 MG In Dextrose 5% 64.3 / 64.3 250 ML @ 5 MCG/MIN 19.05 mls/hr IVC CONT MAGAN Rx#:[id number] Merrem 500 MG In Water for inj. 5 / 5 (sterile) 5 ML @ 100 mls/hr IVP Q12H MAGAN Rx#:[id number] Oral 0 / 0 0 / 0 Blood Product 600 / 600 Rbcs Leuko Poor As-3 2nd Unit 600 / 600 [id number] Other 2900 / 2900 Output: Urine 2800 / 2800 475 / 475 Catheter 1000 / 1000 375 / 375 Other: Intake, CBI Fluid 3,000 3,000 Output, CBI Fluid 3,400 3,425 Weight 102.5 kg Blood Glucose* 153 174 180 - General Appearance Exam: Patient not at bedside. Unable to perform. - Lab 11/18/17 03:29 11/18/17 03:29 Most recent lab results ABG pH 7.41 pH Units (7.32-7.45) 11/17/17 15:41 ABG pCO2 27 mmHg (35-45) L 11/17/17 15:41 ABG pO2 80 mmHg (85-104) L 11/17/17 15:41 ABG HCO3 17 mEq/L (21-27) L 11/17/17 15:41 ABG O2 Saturation 96 % (95-98) 11/17/17 15:41 Calcium 7.8 mg/dL (8.6-10.3) L 11/18/17 03:29 Phosphorus 5.4 mg/dL (2.7-4.5) H 11/18/17 03:29 Magnesium 2.4 mg/dL (1.6-2.6) 11/18/17 03:29 Urine Creatinine 56 mg/dL 11/18/17 11:54 Urine Sodium 55.9 mEq/L 11/18/17 11:54 - VTE Documentation of Mechanical Device: Intermittent pneumatic compression device Consult Discharge Plan - Plan Additional Instructions: 1. Consider ECT treatment 2. Start neudexta 20mg/10mg currently nonformulary in hospital for catatonic features and affect changes. 3. Continue lorazepam. 4. Continue to recomment geriatric psychatric unit. Referrals: Prabhu Aly MD [Partnered Physician] - 12/14/17 8:00 am (Please follow up as schedule...) Wale Lam DO [Primary Care Provider] - (Patient is going to [facility]) Prescriptions: Dextromethorphan HBr/Quinidine [Nuedexta 20-10 mg Capsule] 1 each PO DAILY 30 Days #30 capsule LORazepam [Ativan] 1 mg PO TID 6 Days #18 tablet <Bruno Cardona - Last Filed: 12/11/17 22:36> Date of Encounter: 11/18/17 - Assessment and Plan (1) Acute kidney injury Status: Acute (2) Anemia Status: Acute Qualifiers: Anemia type: unspecified type Qualified Code(s): D64.9 - Anemia, unspecified (3) Bilateral hydronephrosis Status: Acute (4) CKD (chronic kidney disease) stage 4, GFR 15-29 ml/min Status: Chronic (5) Hypocalcemia Status: Acute (6) Hypokalemia Status: Acute Objective - Lab 12/06/17 03:57 12/06/17 03:57 Most recent lab results ABG pH 7.41 pH Units (7.32-7.45) 11/17/17 15:41 ABG pCO2 27 mmHg (35-45) L 11/17/17 15:41 ABG pO2 80 mmHg (85-104) L 11/17/17 15:41 ABG HCO3 17 mEq/L (21-27) L 11/17/17 15:41 ABG O2 Saturation 96 % (95-98) 11/17/17 15:41 Calcium 8.2 mg/dL (8.6-10.3) L 12/06/17 03:57 Phosphorus 4.0 mg/dL (2.7-4.5) 12/03/17 03:29 Magnesium 1.7 mg/dL (1.6-2.6) 12/06/17 03:57 Urine Creatinine 56 mg/dL 11/18/17 11:54 Urine Sodium 55.9 mEq/L 11/18/17 11:54 - Attending Attestation I examined this patient and my medical decision-making was reviewed with the Resident Physician/ESTATE TAX EXAMINER. I agree with the documented findings, disposition and treatment plan as described except to the extent set forth below. Pt seen and examined now in the ICU for sepsis. SCr now at 5.6. Exam shows acutely ill female, fatigued. No LE edema noted. Given CT findings of bilateral hydronephrosis, it is imperative that pt undergoes intervention with urology. No acute indication for [employer] just yet but if no improvement after ureteral stents might need. Continue iv abx. Continue iv fluids. Continue to avoid nephrotoxins if possible.
[2017-11-18] MEDS ORDERED: Dexamethasone 4 MG/ML VIAL ONE (15:58)
[2017-11-18] MEDS ORDERED: *HR* Propofol 200 MG/20 ML VIAL IVP ONE (15:58)
[2017-11-18] MEDS ORDERED: *HR* FentaNYL (PF) 100 MCG/2 ML VIAL ONE (15:58)
[2017-11-18] MEDS ORDERED: Lidocaine -MPF 2% 2 ML VIAL ONE (15:58)
[2017-11-18] MEDS ORDERED: Ondansetron 4 MG/2 ML VIAL ONE (15:58)
[2017-11-18] MEDS ORDERED: Isovue-300 50 ML VIAL IVP ONE (16:42)
[2017-11-18] MEDS ORDERED: *HR* PHENYLEPHRINE 1,000 MCG/10 ML SYRINGE IVP ONE (16:57)
[2017-11-18] MEDS ORDERED: EPHEDrine 50 MG/ML VIAL ONE (17:13)
--- NOTE | 2017-11-18 18:05 | Operative Note ---
Date of procedure: 11/18/17 Pre-op diagnosis: Bilateral hydronephrosis. Renal failure. Hematuria Post-op diagnosis: same Procedure: Cystoscopy with clot evacuation Cystoscopy with bilateral ureteral stent placement Anesthesia: GETA Surgeon: Gustavo Antunez Was there an assistant wrestling coach present: No Estimated blood loss (cc): 0 Specimen: None Condition: stable Disposition: PACU Procedure in Detail: Patient was taken back to the operating room positioned supine on the operating table. Anesthesia was applied without complication. She is moved into dorsal lithotomy. She was prepped and draped sterile fashion. Timeout was performed confirming proper patient and procedure. I placed the 21-Yakut rigid cystoscope and examined the bladder. She had a very large dependent blood clot within the bladder. I eventually placed the resectoscope sheath with Marianne syringe and was able to evacuate the clot from the bladder. I estimate the clot was approximately 200 mL of gelatinous well-organized clot. I then replaced the cystoscope and carefully examine the bladder. The mucosa was globally abnormal with significant erythema, ulcerations and friable areas. I did not see any obvious tumors. With some difficulty I was able to identify both ureteral orifices and eventually placed 6 x 26 ureteral stents. The right side drained significant purulent fluid. I eventually placed a 22-Y[place]ut 3-way catheter at the end of the procedure and the procedure was stopped.
[2017-11-18] MEDS ORDERED: *HR* Dextrose 50 % in Water (Syg) 50 ML SYRINGE IVP PRN (18:39)
[2017-11-18] MEDS ORDERED: Naloxone 0.4 MG/ML INJ IVP PRN (18:39)
[2017-11-18] MEDS ORDERED: Dextrose Gel 15 GM/37.5 ML TUBE PO PRN ×2 (18:39)
[2017-11-18] MEDS ORDERED: Norepinephrine 4 MG in D5% in Water 250 ML IVC SCH (18:39)
[2017-11-18] MEDS ORDERED: D5% in Water 1,000 ML IVC PRN (18:39)
[2017-11-18] MEDS ORDERED: Acetaminophen 325 MG TABLET PO PRN (18:39)
[2017-11-18 20:09] LABS: Hematocrit 27.2 % (35.3-44.9); Hemoglobin 8.6 g/dL (11.5-15.4)
[2017-11-18] MEDS ORDERED: Insulin LISPRO 300 UNITS/3 ML VIAL SQ SCH (21:00)
[2017-11-19] MEDS ORDERED: Levofloxacin 500 MG/100 ML 500 MG/100 ML BAG IVPB SCH (06:00)
[2017-11-19 06:36] LABS: Hematocrit 25.4 % (35.3-44.9); Mean Corpuscular HGB Conc 31.5 g/dL (31.6-35.5); Mean Corpuscular Hemoglobin 28.7 pg (28.0-33.3); Mean Platelet Volume 10.4 fL (9.4-12.4); Platelet Count 242 K/mcL (140-400); Red Blood Count 2.79 M/mcL (3.82-4.97); Red Cell Distribution Width 15.4 % (11.5-14.5)
[2017-11-19 06:56] LABS: Albumin 2.9 g/dL (3.5-5.7); Albumin/Globulin Ratio 0.8 (1.1-2.2); Bilirubin,Total 0.5 mg/dL (0.3-1.0); Calcium 7.9 mg/dL (8.6-10.3); Globulin 3.5 g/dL (2.4-3.5); Magnesium 2.8 mg/dL (1.6-2.6); Potassium 5.5 mEq/L (3.5-5.1); Total Protein 6.4 g/dL (6.4-8.9)
--- NOTE | 2017-11-19 07:18 | Pulmonology Progress Note ---
<Bud Sexton - Last Filed: 11/19/17 15:06> Date of Encounter: 11/19/17 Time of Encounter: 08:00 Assessment and Plan (1) Acute encephalopathy Current Visit: Yes Status: Acute - currently resolved , patient was admitted to the ICU because of elevated BUN, severe sepsis , hypotension. She was intubated but currently off pressors and not hypotensive anymore. Patient is in good mentation, A&O*3, conversing and responding to commands. Her Cr is trending down - we will continue to monitor for any signs of hyper/hypo active delirium if any - delirium precautions in place - patient table for transfer to the floor. Signed out to the admitting hospitalist Dr. Sánchez and explained to him, her course at the ICU. (2) Acute kidney injury superimposed on chronic kidney disease Current Visit: Yes Status: Chronic - patient has a Hx of CKD- likely due to her Hx of HTN and DM2. Patient was admitted to the ICU because of obstructive uropathy with b/l hydroureteronehrsis and is currently s/p cystoscopy and b/l tent placement. She tolerated the procedure well. - her Creatinine on admission was 5.6 currently it is trending down to 4.65. She has been hyperkalemic since admission (5.6-> 5.6-> 5.5) - given Kayaxelate 15mg - gentle hydration with 0.9% NaCl 125cc/hr for 24 hrs. - Avoid nephrotoxic medications. At the moment there is no indication for dialysis but she could be dialyzed if her kidney function doesn't get better . Continue to monitor her UOP and Trend Cr and monitor her electrolytes BID. (3) Hematuria Current Visit: Yes Status: Acute - currently resolved- patient was admitted to the ICU with iatrogenic hematurea - her CT showed large amounts of hemorrhagic products within the bladder- she is sp cystoscopy and b/l ureteral stent placement , 200 mL of gelatinous well - organized clot was evacuated from the bladder with no evidence for any obvious tumors - patient currently stable post operatively. her urine has cleared overnight , H &H stable. her purulence has resolved overnight with Cr trending down - she is stable to be sent to the floor for further management, Monitor H&H . Qualifiers: Hematuria type: gross Qualified Code(s): R31.0 - Gross hematuria (4) UTI (urinary tract infection) Current Visit: Yes Status: Acute - Patient was admitted to the ICU because of sepsis and hypotension secondary to her UTI . Her UA was positive for Nitries and small amout of leukocyte esterase. - her UTI could be likely due to her bilateral hydroureteronephrosis and hematurea which has currently resolved. She is s/p cystoscopy and b/l stent placement - currently her urine cultures are pending. we are treating her Mexipime and will de-escalate once we have the culture sensitivities. - her urine output is low currently but we hope that it'll improve as the day progresses Qualifiers: Urinary tract infection type: site unspecified Hematuria presence: with hematuria Qualified Code(s): N39.0 - Urinary tract infection, site not specified; R31.9 - Hematuria, unspecified (5) Anemia Current Visit: No Status: Acute - When she was admitted to the ICU, her hemoglobin was 10.3 on presentation which went down to 7. It could be secondary to her hematuria and due to hemodilution. Currently she status post systemic cystoscopy and bilateral stent placement, urine output is clear postoperatively and there is no evidence of any hematuria whatsoever. Source of hematuria is currently unknown. - H&H stable currently. Continue to monitor H&H. Qualifiers: Anemia type: unspecified type Qualified Code(s): D64.9 - Anemia, unspecified (6) Hypertension Current Visit: No Status: Chronic - Patient was admitted to the ICU because of progressively increasing hypotension, secondary due to her sepsis. She was found to be in septic shock and was on pressors. - Her septic shock has resolved, she is no more hypotensive. She does have a history of high blood pressure. It would be advisable to start her back on her home antihypertensive medications if she gets hypertensive on the floor- avoid WILBERTO and ARBs because of CKD. (7) Type 2 diabetes mellitus Current Visit: No Status: Acute - Blood sugars have been elevated. This could be secondary to her postoperative status. Patient was initially maintained on low-dose sliding scale insulin. Currently patient is on diabetic diet. Therefore, we have escalated her to high-dose sliding scale insulin and Levemir 25 units Qualifiers: Diabetes mellitus nursing home insulin use: with rn long term care use Diabetes mellitus complication status: with kidney complications Diabetes mellitus complication detail: with chronic kidney disease Chronic kidney disease stage : stage 4 (severe) Qualified Code(s): E11.22 - Type 2 diabetes mellitus with diabetic chronic kidney disease; N18.4 - Chronic kidney disease, stage 4 (severe ); Z79.4 - alf (current) use of insulin (8) DVT prophylaxis Current Visit: No Status: Acute EPCDs Subjective Principal diagnosis: Hematuria, septic shock Interval history: No acute events overnight. Patient is s/p cystoscopy and bilateral stent placement, and she tolerated the procedure well. Her Cr has improved from 5.43 to 4.65. Urine out put is still low . She is A&O*3, and in no acute distress. She's on Maxipine 300mls/hr for her UTI. Her K was high and has been high from the ay she was brought to the ICU (5.5), was given Kayaxelate 15mg. Her glucose was elevated (410) and we changed her insulin to low dose to high dose SSI, also added Levemir 25 units for better glycemic control. She is out of septic shock and not hypotensive, her obstructive uropathy problem has been addressed, she is tolerating diabetic diet. At this point she is stable to be transferred to the floor for further management. I signed out to the admitting hospitalist Dr. Sánchez, and explained to him the course of her ICU stay. Objective PUL Vital signs: Last Vital Signs Temp 98.0 F 11/19/17 04:30 Pulse 62 11/19/17 06:00 Resp 16 11/19/17 06:00 BP 106/49 11/19/17 06:00 Pulse Ox 97 11/19/17 06:00 General appearance: no acute distress (A&O*3, no acte distress, good mentation) Auscultation: bilateral: diminished breath sounds Percussion: bilateral: not dull Gastrointestinal: soft, non-tender, non-distended Extremities: no cyanosis, no edema, no clubbing Results - Laboratory Findings CBC and BMP: 11/19/17 06:21 11/19/17 06:21 ABG ABG pH 7.41 pH Units (7.32-7.45) 11/17/17 15:41 ABG pCO2 27 mmHg (35-45) L 11/17/17 15:41 ABG pO2 80 mmHg (85-104) L 11/17/17 15:41 ABG O2 Saturation 96 % (95-98) 11/17/17 15:41 PT/INR, D-dimer PT 17.1 Seconds (9.4-12.1) H 11/18/17 03:29 Abnormal lab findings: Abnormal lab results WBC 13.0 K/mcL (4.3-11.1) H 11/19/17 06:21 RBC 2.79 M/mcL (3.82-4.97) L 11/19/17 06:21 Hgb 8.0 g/dL (11.5-15.4) L 11/19/17 06:21 Hct 25.4 % (35.3-44.9) L 11/19/17 06:21 MCHC 31.5 g/dL (31.6-35.5) L 11/19/17 06:21 RDW 15.4 % (11.5-14.5) H 11/19/17 06:21 Band Neutrophils % 74.0 % (0-4) H 11/17/17 21:15 Neutrophils # 17.6 K/mcL (1.6-8.9) H 11/18/17 03:29 Lymphocytes # 0.5 K/mcL (0.6-4.6) L 11/18/17 03:29 PT 17.1 Seconds (9.4-12.1) H 11/18/17 03:29 ABG pCO2 27 mmHg (35-45) L 11/17/17 15:41 ABG pO2 80 mmHg (85-104) L 11/17/17 15:41 ABG HCO3 17 mEq/L (21-27) L 11/17/17 15:41 ABG Total CO2 18 mEq/L (20-26) L 11/17/17 15:41 ABG Base Excess -7 mEq/L (-2 to 3) L 11/17/17 15:41 Sodium 134 mEq/L (136-145) L 11/19/17 06:21 Potassium 5.5 mEq/L (3.5-5.1) H 11/19/17 06:21 Chloride 110 mEq/L (98-107) H 11/19/17 06:21 Carbon Dioxide 15 mEq/L (23-29) L 11/19/17 06:21 BUN 122 mg/dL (8-23) H 11/19/17 06:21 Creatinine 4.65 mg/dL (0.60-1.20) H 11/19/17 06:21 Est GFR ( Amer) 11 (> 60) L 11/19/17 06:21 Est GFR (Non-Af Amer) 9 (> 60) L 11/19/17 06:21 Glucose 410 mg/dL (70-105) H 11/19/17 06:21 POC Glucose 283 mg/dL (70-99) H 11/18/17 20:09 Calculated Osmolality 334 (280-300) H 11/19/17 06:21 Calcium 7.9 mg/dL (8.6-10.3) L 11/19/17 06:21 Venous Ioniz Calcium 1.01 mmol/L (1.15-1.35) L 11/17/17 16:17 Phosphorus 5.4 mg/dL (2.7-4.5) H 11/18/17 03:29 Magnesium 2.8 mg/dL (1.6-2.6) H 11/19/17 06:21 Direct Bilirubin 0.5 mg/dL (0.0-0.2) H 11/17/17 15:51 Alkaline Phosphatase 137 Units/L (34-104) H 11/19/17 06:21 Albumin 2.9 g/dL (3.5-5.7) L 11/19/17 06:21 Albumin/Globulin Ratio 0.8 (1.1-2.2) L 11/19/17 06:21 Ur Specimen Adequacy See below A 11/17/17 04:58 Urine Color Red (Yellow) A 11/17/17 04:58 Ur Specific [place] > 1.030 (1.010-1.025) H 11/17/17 04:58 Urine Protein >=1000 mg/dL (Neg-Trace) H 11/17/17 04:58 Urine Ketones Trace mg/dL (Negative) H 11/17/17 04:58 Urine Blood Large (Negative) H 11/17/17 04:58 Urine Nitrite Positive (Negative) A 11/17/17 04:58 Urine Bilirubin Moderate (Negative) H 11/17/17 04:58 Ur Leukocyte Esterase Small (Negative) H 11/17/17 04:58 Ur Culture Indicated? YES (NO) A 11/17/17 04:58 - Clinical Findings Intake & Output: Intake & Output 11/18/17 11/18/17 11/19/17 15:59 23:59 07:59 Intake Total 600 / 600 30 / 30 60 / 60 Output Total 725 / 725 275 / 275 450 / 450 Balance -125 / -125 -245 / -245 -390 / -390 Weight 103.8 kg - VTE Documentation of Mechanical Device: Venous foot pump, device Consult Discharge Plan - Plan Referrals: Wale Lam DO [Primary Care Provider] - <Benjamin Parry - Last Filed: 11/19/17 15:16> Date of Encounter: 11/19/17 Objective PUL Vital signs: Last Vital Signs Temp 98.1 F 11/19/17 07:47 Pulse 62 11/19/17 06:00 Resp 16 11/19/17 06:00 BP 106/49 11/19/17 06:00 Pulse Ox 97 11/19/17 06:00 Results - Laboratory Findings CBC and BMP: 11/19/17 06:21 11/19/17 06:21 ABG ABG pH 7.41 pH Units (7.32-7.45) 11/17/17 15:41 ABG pCO2 27 mmHg (35-45) L 11/17/17 15:41 ABG pO2 80 mmHg (85-104) L 11/17/17 15:41 ABG O2 Saturation 96 % (95-98) 11/17/17 15:41 PT/INR, D-dimer PT 17.1 Seconds (9.4-12.1) H 11/18/17 03:29 Abnormal lab findings: Abnormal lab results WBC 13.0 K/mcL (4.3-11.1) H 11/19/17 06:21 RBC 2.79 M/mcL (3.82-4.97) L 11/19/17 06:21 Hgb 8.0 g/dL (11.5-15.4) L 11/19/17 06:21 Hct 25.4 % (35.3-44.9) L 11/19/17 06:21 MCHC 31.5 g/dL (31.6-35.5) L 11/19/17 06:21 RDW 15.4 % (11.5-14.5) H 11/19/17 06:21 Band Neutrophils % 17.0 % (0-4) H 11/19/17 06:21 Neutrophils # 11.8 K/mcL (1.6-8.9) H 11/19/17 06:21 PT 17.1 Seconds (9.4-12.1) H 11/18/17 03:29 ABG pCO2 27 mmHg (35-45) L 11/17/17 15:41 ABG pO2 80 mmHg (85-104) L 11/17/17 15:41 ABG HCO3 17 mEq/L (21-27) L 11/17/17 15:41 ABG Total CO2 18 mEq/L (20-26) L 11/17/17 15:41 ABG Base Excess -7 mEq/L (-2 to 3) L 11/17/17 15:41 Sodium 134 mEq/L (136-145) L 11/19/17 06:21 Potassium 5.5 mEq/L (3.5-5.1) H 11/19/17 06:21 Chloride 110 mEq/L (98-107) H 11/19/17 06:21 Carbon Dioxide 15 mEq/L (23-29) L 11/19/17 06:21 BUN 122 mg/dL (8-23) H 11/19/17 06:21 Creatinine 4.65 mg/dL (0.60-1.20) H 11/19/17 06:21 Est GFR ( Amer) 11 (> 60) L 11/19/17 06:21 Est GFR (Non-Af Amer) 9 (> 60) L 11/19/17 06:21 Glucose 410 mg/dL (70-105) H 11/19/17 06:21 POC Glucose 393 mg/dL (70-99) H 11/19/17 07:28 Calculated Osmolality 334 (280-300) H 11/19/17 06:21 Calcium 7.9 mg/dL (8.6-10.3) L 11/19/17 06:21 Venous Ioniz Calcium 1.01 mmol/L (1.15-1.35) L 11/17/17 16:17 Phosphorus 5.4 mg/dL (2.7-4.5) H 11/18/17 03:29 Magnesium 2.8 mg/dL (1.6-2.6) H 11/19/17 06:21 Direct Bilirubin 0.5 mg/dL (0.0-0.2) H 11/17/17 15:51 Alkaline Phosphatase 137 Units/L (34-104) H 11/19/17 06:21 Albumin 2.9 g/dL (3.5-5.7) L 11/19/17 06:21 Albumin/Globulin Ratio 0.8 (1.1-2.2) L 11/19/17 06:21 Ur Specimen Adequacy See below A 11/17/17 04:58 Urine Color Red (Yellow) A 11/17/17 04:58 Ur Specific [place] > 1.030 (1.010-1.025) H 11/17/17 04:58 Urine Protein >=1000 mg/dL (Neg-Trace) H 11/17/17 04:58 Urine Ketones Trace mg/dL (Negative) H 11/17/17 04:58 Urine Blood Large (Negative) H 11/17/17 04:58 Urine Nitrite Positive (Negative) A 11/17/17 04:58 Urine Bilirubin Moderate (Negative) H 11/17/17 04:58 Ur Leukocyte Esterase Small (Negative) H 11/17/17 04:58 Ur Culture Indicated? YES (NO) A 11/17/17 04:58 - Clinical Findings Intake & Output: Intake & Output 11/18/17 11/19/17 11/19/17 23:59 07:59 15:59 Intake Total 30 / 30 60 / 60 Output Total 275 / 275 650 / 650 Balance -245 / -245 -590 / -590 Weight 103.8 kg - Attending Attestation I examined this patient and my medical decision-making was reviewed with the Resident Physician. I agree with the documented findings, disposition and treatment plan as described except to the extent set forth below. We independently had [id number] contact with the patient Patient seen and examined at bedside Labs, radiology, chart personally reviewed. Management was reviewed during multidisciplinary critical care rounds. 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 Appreciate urology evaluation and recommendations as well. UOP Monitored, Cont to Trend sCr and monitor Electrolytes. ID: She is been treated for severe sepsis/shock secondary to urinary tract infection cultures pending is an appropriate antimicrobial (cefepime) with plan to de-escalate Heme/Onc: DVT prophylaxis given Endo: Glucose Monitored Integ/MSK: Skin Care per routine ICU Nursing Protocol to prevent ulcers. Lines: All lines examined without evidence of infection : Dispo: Stable for transfer to [facility] for ongoing care CODE: Full
[2017-11-19] MEDS ORDERED: Insulin LISPRO 300 UNITS/3 ML VIAL SQ SCH ×3 (07:30→09:32)
[2017-11-19 07:45] LABS: Platelet Estimate Normal (Normal)
[2017-11-19 07:48] LABS: Lymphocytes # 0.7 K/mcL (0.6-4.6); Monocytes # 0.5 K/mcL (0.0-1.3); Neutrophils # 11.8 K/mcL (1.6-8.9)
[2017-11-19] MEDS: 0.9 % Sodium Chloride 1,000 ML IVC SCH (08:10)
[2017-11-19] MEDS ORDERED: Miconazole 2% ointment 114 GM TUBE TP SCH (09:00)
[2017-11-19] MEDS ORDERED: Cefepime HCl 1,000 MG in Water for inj. (sterile) 20 ML 10 ML IVP SCH (09:00)
[2017-11-19] MEDS ORDERED: Metoprolol XL (24 HR) Succ 50 MG TAB.ER.24H PO SCH (09:00)
[2017-11-19] MEDS ORDERED: Multivit/Ca/Min/Fe/FA 1 TAB TABLET PO SCH (09:00)
--- NOTE | 2017-11-19 09:22 | Urology Progress Note ---
Date of Encounter: 11/19/17 Time of Encounter: 09:21 - Assessment and Plan (1) Hematuria Current Visit: Yes Status: Acute Assessment and plan: Patient status post clot evacuation and bilateral stent placement. Creatinine has improved. Urine output is still low. Continue catheter. No further urologic intervention required at this time. Qualifiers: Hematuria type: gross Qualified Code(s): R31.0 - Gross hematuria Progress Note Narrative: Patient doing better this morning. She was aware of her location as she states that she was in [place]. Urine has cleared overnight Objective Initial Vital Signs Temp Pulse Resp BP Pulse Ox 98.2 F 97 18 125/63 100 11/17/17 04:49 11/17/17 04:49 11/17/17 04:49 11/17/17 04:49 11/17/17 04:49 - General physical appearance Present: no distress - Additional Exam Very light hematuria. purulence has resolved overnight - Labs 11/19/17 06:21 11/19/17 06:21 Diabetes panel 11/19/17 Range/Units 06:21 Sodium 134 L (136-145) mEq/L Potassium 5.5 H (3.5-5.1) mEq/L Chloride 110 H (98-107) mEq/L Carbon Dioxide 15 L (23-29) mEq/L BUN 122 H (8-23) mg/dL Creatinine 4.65 H (0.60-1.20) mg/dL Glucose 410 H (70-105) mg/dL Calcium 7.9 L (8.6-10.3) mg/dL AST 16 (13-39) Units/L ALT 14 (7-52) Units/L Alkaline Phosphatase 137 H (34-104) Units/L Albumin 2.9 L (3.5-5.7) g/dL Calcium panel 11/19/17 Range/Units 06:21 Calcium 7.9 L (8.6-10.3) mg/dL Albumin 2.9 L (3.5-5.7) g/dL Pituitary panel 11/19/17 Range/Units 06:21 Sodium 134 L (136-145) mEq/L Potassium 5.5 H (3.5-5.1) mEq/L Chloride 110 H (98-107) mEq/L Carbon Dioxide 15 L (23-29) mEq/L BUN 122 H (8-23) mg/dL Creatinine 4.65 H (0.60-1.20) mg/dL Glucose 410 H (70-105) mg/dL Calcium 7.9 L (8.6-10.3) mg/dL Adrenal panel 11/19/17 Range/Units 06:21 Sodium 134 L (136-145) mEq/L Potassium 5.5 H (3.5-5.1) mEq/L Chloride 110 H (98-107) mEq/L Carbon Dioxide 15 L (23-29) mEq/L BUN 122 H (8-23) mg/dL Creatinine 4.65 H (0.60-1.20) mg/dL Glucose 410 H (70-105) mg/dL Calcium 7.9 L (8.6-10.3) mg/dL Total Bilirubin 0.5 (0.3-1.0) mg/dL AST 16 (13-39) Units/L ALT 14 (7-52) Units/L Alkaline Phosphatase 137 H (34-104) Units/L Albumin 2.9 L (3.5-5.7) g/dL - VTE Documentation of Mechanical Device: Venous foot pump, device Consult Discharge Plan - Plan Referrals: Wale Lam DO [Primary Care Provider] -
[2017-11-19] MEDS ORDERED: 0.9 % Sodium Chloride 1,000 ML IVC SCH (09:45)
[2017-11-19] MEDS ORDERED: Naloxone 0.4 MG/ML INJ IVP PRN (11:06)
[2017-11-19] MEDS ORDERED: D5% in Water 1,000 ML IVC PRN ×2 (11:06→11:15)
[2017-11-19] MEDS ORDERED: Dextrose Gel 15 GM/37.5 ML TUBE PO PRN ×2 (11:06)
[2017-11-19] MEDS ORDERED: *HR* Dextrose 50 % in Water (Syg) 50 ML SYRINGE IVP PRN (11:06)
[2017-11-19] MEDS: Insulin LISPRO 300 UNITS/3 ML VIAL SQ SCH ×3 (11:48→22:19)
--- NOTE | 2017-11-19 14:50 | Nephrology Progress Note ---
Date of Encounter: 11/19/17 Time of Encounter: 12:00 - Assessment and Plan (1) Acute kidney injury Status: Acute SCr slightly better at 4.65, GFR 9. No acute indication for PERSONAL TRAINER today but will continue to monitor closely Will start IVF UOP great at 1475cc in the past 24hrs and clearing up as well Continue to avoid nephrotoxins if possible (2) Bilateral hydronephrosis Status: Acute s/p ureteral stents, urology following (3) Severe sepsis Status: Acute continue iv abx per primary team (4) CKD (chronic kidney disease) stage 3, GFR 30-59 ml/min Status: Acute GFR up to 32 in july this year (5) Metabolic acidosis Status: Resolved bicarb noted at 15, may need bicarb added to fluids if no improvement (6) Anemia Status: Acute hgb noted at 8.0, failry stable. Will monitor Qualifiers: Anemia type: unspecified type Qualified Code(s): D64.9 - Anemia, unspecified Subjective Principal diagnosis: Hematuria, septic shock Interval history: Interim noted s/p bilateral stents and now downgraded from ICU to 2A feeling better. Family at bedside Objective - Vital Signs Vital signs: Vital Signs Temp Pulse Resp BP Pulse Ox 11/19/17 11:40 97.5 F L 72 19 116/70 98 11/19/17 08:00 78 16 153/73 98 11/19/17 07:47 98.1 F 11/19/17 06:00 62 16 106/49 97 11/19/17 05:00 69 18 112/54 97 11/19/17 04:30 98.0 F 70 20 104/54 97 11/19/17 03:30 67 16 113/57 96 11/19/17 02:30 75 18 130/72 97 11/19/17 01:30 73 16 121/58 97 11/19/17 00:30 98.4 F 71 14 108/49 97 11/18/17 23:30 68 14 101/50 97 11/18/17 22:30 69 16 92/57 97 11/18/17 21:00 73 24 103/49 97 11/18/17 20:00 98.3 F 73 22 122/55 100 11/18/17 19:30 72 20 125/54 100 11/18/17 19:00 74 19 119/53 99 11/18/17 18:45 75 20 119/54 100 11/18/17 18:30 79 20 123/54 100 11/18/17 18:15 98.3 F 83 19 122/57 100 11/18/17 16:21 67 15 123/59 99 11/18/17 16:15 83 11/18/17 16:10 73 15 118/54 99 11/18/17 15:46 72 15 121/56 98 Intake and Output 11/18/17 11/19/17 11/19/17 23:59 07:59 15:59 Intake Total 60 60 10 10 Output Total 275 / 275 650 / 650 400 / 400 Balance -245 / -245 -590 / -590 -390 / -390 Intake: IV Fluids Maxipime 1,000 MG In Water for inj. (sterile) 10 ML @ 300 mls/ hr IVP Q24H [facility] Rx#:[id number] Oral 0 / 0 Output: Estimated Blood Loss 0 / 0 Catheter 275 / 275 650 / 650 400 / 400 Other: Weight 103.8 kg Blood Glucose* 275 393 425 Patient Weight 11/19/17 23:59 Weight 103.8 kg EENT: Present: ATNC, mucous membranes moist Neck: Present: no JVD, supple Cardiology: Present: no edema, normal S1, normal S2 Gastrointestinal: Present: no tenderness, no guarding Integumentary: Present: warm and dry Neurologic: Present: no focal deficit Musculoskeletal: Present: no deformities Psychiatric: Present: mood/affect appropriate, cooperative - Lab 12/06/17 03:57 12/06/17 03:57 Most recent lab results ABG pH 7.41 pH Units (7.32-7.45) 11/17/17 15:41 ABG pCO2 27 mmHg (35-45) L 11/17/17 15:41 ABG pO2 80 mmHg (85-104) L 11/17/17 15:41 ABG HCO3 17 mEq/L (21-27) L 11/17/17 15:41 ABG O2 Saturation 96 % (95-98) 11/17/17 15:41 Calcium 7.9 mg/dL (8.6-10.3) L 11/19/17 06:21 Phosphorus 5.4 mg/dL (2.7-4.5) H 11/18/17 03:29 Magnesium 2.8 mg/dL (1.6-2.6) H 11/19/17 06:21 Urine Creatinine 56 mg/dL 11/18/17 11:54 Urine Sodium 55.9 mEq/L 11/18/17 11:54 - VTE Documentation of Mechanical Device: Venous foot pump, device Consult Discharge Plan - Plan Additional Instructions: 1. Consider ECT treatment 2. Start neudexta 20mg/10mg currently nonformulary in hospital for catatonic features and affect changes. 3. Continue lorazepam. 4. Continue to recomment geriatric psychatric unit. Referrals: Prabhu Aly MD [Partnered Physician] - 12/14/17 8:00 am (Please follow up as schedule...) Wale Lam DO [Primary Care Provider] - (Patient is going to [facility]) Prescriptions: Dextromethorphan HBr/Quinidine [Nuedexta 20-10 mg Capsule] 1 each PO DAILY 30 Days #30 capsule LORazepam [Ativan] 1 mg PO TID 6 Days #18 tablet
[2017-11-19] MEDS: Sodium Bicarbonate 75 MEQ in 0.45 % Sodium Chloride 1,000 ML IVC SCH (16:00)
[2017-11-19] MEDS: Acetaminophen 325 MG TABLET PO PRN (17:57)
[2017-11-19] MEDS ORDERED: Insulin DETEMIR 100 UNIT/ML X5UNITS SQ SCH (21:00)
[2017-11-19] MEDS: Ascorbic Acid 500 MG TABLET PO SCH (22:16)
[2017-11-19] MEDS: Insulin DETEMIR 100 UNIT/ML X5UNITS SQ SCH (22:19)
--- NOTE | 2017-11-20 08:25 | Internal Med Progress Note ---
Hospitalist Progress Note - Encounter Date of Encounter: 11/20/17 Time of Encounter: 08:10 - Subjective Interval History: No acute events overnight - Exam Vitals: Temp Pulse Resp BP Pulse Ox 97.8 F 66 20 136/79 96 11/20/17 07:04 11/20/17 07:04 11/20/17 07:04 11/20/17 07:04 11/20/17 07:04 Exam: Gen - Awake, alert, oriented x 3, no acute distress HEENT - NCAT, PERRLA, EOMI, hearing grossly intact, oropharynx benign CV - RRR, normal S1 and S2, no M/R/G, no BLE edema Resp - Normal WOB, CTAB, no W/R/R GI - Soft, NT/ND, no masses, normal bowel sounds, no HSP Skin - Warm, dry, no rashes/lesions/ulcers Psych - Normal mood and affect, no depression or anxiety - Assessment and Plan (1) Acute encephalopathy Current Visit: Yes Status: Acute Assessment and Plan: currently resolved , patient was admitted to the ICU because of elevated BUN, severe sepsis , hypotension. She was intubated but has been weaned off pressors and not hypotensive anymore. Patient is in good mentation, A&O*3, conversing and responding to commands. Her Cr is trending down and was transferred to the floor Will continue to monitor (2) Acute kidney injury superimposed on chronic kidney disease Current Visit: Yes Status: Chronic Assessment and Plan: patient has a Hx of CKD- likely due to her Hx of HTN and DM2. Patient was admitted to the ICU because of obstructive uropathy with b/l hydroureteronehrsis and is currently s/p cystoscopy and b/l tent placement. She tolerated the procedure well. - her Creatinine on admission was 5.6 currently it is trending down to 4.65. She has been hyperkalemic since admission (5.6-> 5.6-> 5.5) - given Kayaxelate 15mg - gentle hydration with 0.9% NaCl 125cc/hr for 24 hrs. 11/20 Avoid nephrotoxic medications. At the moment there is no indication for dialysis but she could be dialyzed if her kidney function doesn't get better . Continue to monitor her UOP and Trend Cr and monitor her electrolytes. Nephrology following (3) Hematuria Current Visit: Yes Status: Resolved Assessment and Plan: currently resolved- patient was admitted to the ICU with iatrogenic hematurea - her CT showed large amounts of hemorrhagic products within the bladder- she is sp cystoscopy and b/l ureteral stent placement , 200 mL of gelatinous well - organized clot was evacuated from the bladder with no evidence for any obvious tumors - patient currently stable post operatively. her urine has cleared overnight , H &H stable (4) Hydronephrosis Current Visit: No Status: Acute Assessment and Plan: See plan for hematuria. (5) UTI (urinary tract infection) Current Visit: Yes Status: Acute Assessment and Plan: riana was admitted to the ICU because of sepsis and hypotension secondary to her UTI . Her UA was positive for Nitries and small amout of leukocyte esterase. - her UTI could be likely due to her bilateral hydroureteronephrosis and hematurea which has currently resolved. She is s/p cystoscopy and b/l stent placement - currently her urine cultures are pending. Continue cefepime (6) Generalized weakness Current Visit: No Status: Acute Assessment and Plan: Needs PTOT evaluation. (7) Hypertension Current Visit: No Status: Chronic Assessment and Plan: Monitr BP and add antihypertensives as indicated (8) Type 2 diabetes mellitus Current Visit: No Status: Acute Assessment and Plan: Continue basal and sliding scale insulin coverage. Patient has generally poor intake. Closely monitor glucose level and adjust insulin dose accordingly (9) Chronic systolic heart failure Current Visit: No Status: Acute Assessment and Plan: Patient has PPM and AICD. Appears euvolemic at this point. Continue metoprolol. Temporarily hold losartan and Lasix at this point because of worsening renal function. Closely monitor fluid status. (10) Debility Current Visit: No Status: Acute Assessment and Plan: Patient in need PTOT evaluation after stabilization (11) DVT prophylaxis Current Visit: No Status: Acute Assessment and Plan: EPCDs - Time Spent with Patient Total time spent is greater than 50% in coordination of care (as documented) at patient's floor/unit and/or counseling patient: Internal Medicine: Result - Labs CBC & Chem 7: 11/20/17 11:32 11/20/17 11:32 - ABG Interpretation ABG results: ABG ABG pH 7.41 pH Units (7.32-7.45) 11/17/17 15:41 ABG pCO2 27 mmHg (35-45) L 08/16/18 15:41 ABG pO2 80 mmHg (85-104) L 11/17/17 15:41 ABG O2 Saturation 96 % (95-98) 11/17/17 15:41 PT/INR, D-dimer PT 17.1 Seconds (9.4-12.1) H 11/18/17 03:29 - VTE Documentation of Mechanical Device: Venous foot pump, device Consult Discharge Plan - Plan Referrals: Wale Lam DO [Primary Care Provider] - (3) Hematuria Qualifiers: Hematuria type: gross Qualified Code(s): R31.0 - Gross hematuria (4) Hydronephrosis Qualifiers: Hydronephrosis type: unspecified Qualified Code(s): N13.30 - Unspecified hydronephrosis (5) UTI (urinary tract infection) Qualifiers: Urinary tract infection type: site unspecified Hematuria presence: with hematuria Qualified Code(s): N39.0 - Urinary tract infection, site not specified; R31.9 - Hematuria, unspecified (7) Hypertension Qualifiers: Hypertension type: essential hypertension Qualified Code(s): I10 - Essential (primary) hypertension (8) Type 2 diabetes mellitus Qualifiers: Diabetes mellitus residential insulin use: with residential use Diabetes mellitus complication status: with kidney complications Diabetes mellitus complication detail: with chronic kidney disease Chronic kidney disease stage: stage 4 (severe) Qualified Code(s): E11.22 - Type 2 diabetes mellitus with diabetic chronic kidney disease; N18.4 - Chronic kidney disease, stage 4 (severe ); 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
[2017-11-20] MEDS: Aspirin Enteric Coated 81 MG Tablet PO SCH (08:31)
[2017-11-20] MEDS: Acetaminophen 325 MG TABLET PO PRN ×2 (08:31→20:23)
[2017-11-20] MEDS: Ascorbic Acid 500 MG TABLET PO SCH ×2 (08:31→20:22)
[2017-11-20] MEDS: Multivit/Ca/Min/Fe/FA 1 TAB TABLET PO SCH (08:32)
[2017-11-20] MEDS: Metoprolol XL (24 HR) Succ 50 MG TAB.ER.24H PO SCH (08:32)
[2017-11-20] MEDS: Insulin LISPRO 300 UNITS/3 ML VIAL SQ SCH ×4 (08:33→20:26)
[2017-11-20] MEDS: Miconazole 2% ointment 114 GM TUBE TP SCH (08:44)
[2017-11-20] MEDS ORDERED: Cefepime HCl 1,000 MG in Water for inj. (sterile) 20 ML 10 ML IVP SCH (09:00)
--- NOTE | 2017-11-20 09:35 | Urology Progress Note ---
Date of Encounter: 11/20/17 Time of Encounter: 09:34 - Assessment and Plan (1) Hematuria Current Visit: Yes Status: Resolved Assessment and plan: Patient appears to be doing much better after clot evacuation and bilateral ureteral stent placement. Labs pending today. We will see if kidney function continues to improve. No further urologic intervention at this time Qualifiers: Hematuria type: gross Qualified Code(s): R31.0 - Gross hematuria Progress Note Narrative: patient resting comfortably. No issues overnight. No new labs this morning Objective Initial Vital Signs Temp Pulse Resp BP Pulse Ox 98.2 F 97 18 125/63 100 11/17/17 04:49 11/17/17 04:49 11/17/17 04:49 11/17/17 04:49 11/17/17 04:49 - General physical appearance Present: no distress - Additional Exam Catheter draining very light hematuric but transparent urine. No CBI. - Labs 11/19/17 06:21 11/19/17 06:21 - VTE Documentation of Mechanical Device: Venous foot pump, device Consult Discharge Plan - Plan Referrals: Wale Lam DO [Primary Care Provider] -
[2017-11-20] MEDS: Sodium Bicarbonate 75 MEQ in 0.45 % Sodium Chloride 1,000 ML IVC SCH (11:25)
--- NOTE | 2017-11-20 11:29 | Nephrology Progress Note ---
Date of Encounter: 11/20/17 Time of Encounter: 11:10 - Assessment and Plan (1) Acute kidney injury Current Visit: Yes Status: Acute No new labs available to reassess current condition, will await UOP great at 1650cc in the past 24hrs Given current condition along with good UOP, no acute indication for SEAM CLOSER at this time Continue to avoid nephrotoxins if possible (2) Bilateral hydronephrosis Current Visit: Yes Status: Acute s/p stents bilateral, appreciate urology's help (3) Severe sepsis Current Visit: Yes Status: Acute Continue abx per primary team (4) Metabolic acidosis Current Visit: Yes Status: Acute Should improve with bicarb in IVF and improving renal fxn (5) Anemia Current Visit: No Status: Acute Hgb noted at 8.0, will monitor Qualifiers: Anemia type: unspecified type Qualified Code(s): D64.9 - Anemia, unspecified (6) Hyperkalemia Current Visit: Yes Status: Acute Last potassium noted at 5.5, renal diet advised Expect improvement with improved UOP and bicarb gtt (7) CKD (chronic kidney disease) stage 4, GFR 15-29 ml/min Current Visit: Yes Status: Acute Baseline GFR in the 20s this year so far Subjective Principal diagnosis: Hematuria, septic shock Interval history: Pt seen and examined still improving daily with no new complaints. Urine mostly cleared since bilateral stents. Objective - Vital Signs Vital signs: Vital Signs Temp Pulse Resp BP Pulse Ox 11/20/17 10:52 98.2 F 62 19 127/76 95 11/20/17 07:04 97.8 F 66 20 136/79 96 11/20/17 03:50 98.6 F 78 19 132/70 96 11/19/17 23:48 98.3 F 80 20 136/73 95 11/19/17 18:16 97.9 F 67 16 110/67 95 11/19/17 16:24 98.2 F 67 17 118/71 96 11/19/17 11:40 97.5 F L 72 19 116/70 98 Intake and Output 11/19/17 11/20/17 11/20/17 23:59 07:59 15:59 Intake Total 300 / 300 30 / 30 Output Total 400 / 400 600 / 600 650 / 650 Balance -400 / -400 -300 / -300 -620 / -620 Intake: Oral 300 / 300 30 / 30 Output: Catheter 400 / 400 600 / 600 650 / 650 Other: Weight 101.1 kg Blood Glucose* 412 254 - General Appearance General appearance: Present: chronically ill EENT: Present: ATNC, mucous membranes moist Neck: Present: no JVD, supple Respiratory: Present: clear Cardiology: Present: edema, normal S1, normal S2 Gastrointestinal: Present: no tenderness, no guarding, obese Integumentary: Present: warm and dry Neurologic: Present: no focal deficit Musculoskeletal: Present: no deformities Psychiatric: Present: mood/affect appropriate, cooperative - Lab 11/20/17 11:32 11/20/17 11:32 Most recent lab results ABG pH 7.41 pH Units (7.32-7.45) 11/17/17 15:41 ABG pCO2 27 mmHg (35-45) L 11/17/17 15:41 ABG pO2 80 mmHg (85-104) L 11/17/17 15:41 ABG HCO3 17 mEq/L (21-27) L 11/17/17 15:41 ABG O2 Saturation 96 % (95-98) 11/17/17 15:41 Calcium 7.9 mg/dL (8.6-10.3) L 11/19/17 06:21 Phosphorus 5.4 mg/dL (2.7-4.5) H 11/18/17 03:29 Magnesium 2.8 mg/dL (1.6-2.6) H 11/19/17 06:21 Urine Creatinine 56 mg/dL 11/18/17 11:54 Urine Sodium 55.9 mEq/L 11/18/17 11:54 - VTE Documentation of Mechanical Device: Venous foot pump, device Consult Discharge Plan - Plan Referrals: Wale Lam DO [Primary Care Provider] -
[2017-11-20 12:17] LABS: Basophils % 0.1 %; Eosinophils # 0.1 K/mcL (0.0-0.6); Eosinophils % 0.9 %; Hematocrit 26.8 % (35.3-44.9); Hemoglobin 8.8 g/dL (11.5-15.4); Immature Granulocytes % 1.4 % (0-4); Lymphocytes % 6.2 %; Mean Corpuscular HGB Conc 32.8 g/dL (31.6-35.5); Mean Corpuscular Hemoglobin 29.3 pg (28.0-33.3); Mean Corpuscular Volume 89.3 fL (83.0-100.0); Mean Platelet Volume 10.9 fL (9.4-12.4); Monocytes # 1.3 K/mcL (0.0-1.3); Monocytes % 7.8 %; Neutrophils # 13.4 K/mcL (1.6-8.9); Platelet Count 257 K/mcL (140-400); Red Cell Distribution Width 15.4 % (11.5-14.5); Segmented Neutrophils % 83.6 %
[2017-11-20 12:43] LABS: Calcium 8.1 mg/dL (8.6-10.3); Potassium 4.1 mEq/L (3.5-5.1)
[2017-11-20] MEDS: Insulin DETEMIR 100 UNIT/ML X5UNITS SQ SCH (20:25)
[2017-11-21] MEDS: Acetaminophen 325 MG TABLET PO PRN ×2 (01:38→08:13)
[2017-11-21 03:56] LABS: Basophils % 0.1 %; Eosinophils # 0.3 K/mcL (0.0-0.6); Eosinophils % 2.8 %; Hematocrit 25.5 % (35.3-44.9); Hemoglobin 8.2 g/dL (11.5-15.4); Immature Granulocytes % 1.2 % (0-4); Lymphocytes # 1.3 K/mcL (0.6-4.6); Lymphocytes % 11.2 %; Mean Corpuscular HGB Conc 32.2 g/dL (31.6-35.5); Mean Corpuscular Hemoglobin 28.2 pg (28.0-33.3); Mean Corpuscular Volume 87.6 fL (83.0-100.0); Monocytes # 1.2 K/mcL (0.0-1.3); Monocytes % 10.9 %; Neutrophils # 8.4 K/mcL (1.6-8.9); Platelet Count 216 K/mcL (140-400); Red Blood Count 2.91 M/mcL (3.82-4.97); Red Cell Distribution Width 15.3 % (11.5-14.5); Segmented Neutrophils % 73.8 %
[2017-11-21 04:14] LABS: Magnesium 2.4 mg/dL (1.6-2.6)
[2017-11-21] MEDS: Ascorbic Acid 500 MG TABLET PO SCH ×2 (08:03→22:18)
[2017-11-21] MEDS: Aspirin Enteric Coated 81 MG Tablet PO SCH (08:03)
[2017-11-21] MEDS: Metoprolol XL (24 HR) Succ 50 MG TAB.ER.24H PO SCH (08:04)
[2017-11-21] MEDS: Multivit/Ca/Min/Fe/FA 1 TAB TABLET PO SCH (08:04)
[2017-11-21] MEDS: Miconazole 2% ointment 114 GM TUBE TP SCH (08:04)
[2017-11-21] MEDS: Cefepime HCl 2,000 MG in Water for inj. (sterile) 20 ML 20 ML IVP SCH (08:04)
[2017-11-21] MEDS: Insulin LISPRO 300 UNITS/3 ML VIAL SQ SCH ×4 (08:10→22:20)
[2017-11-21] MEDS: Sodium Bicarbonate 75 MEQ in 0.45 % Sodium Chloride 1,000 ML IVC SCH ×3 (08:12→08:28)
--- NOTE | 2017-11-21 08:25 | Internal Med Progress Note ---
Hospitalist Progress Note - Encounter Date of Encounter: 11/21/17 Time of Encounter: 08:20 - Subjective Interval History: No acute events overnight - Exam Vitals: Temp Pulse Resp BP Pulse Ox 99.0 F 66 18 111/70 92 11/21/17 07:18 11/21/17 07:18 11/21/17 07:18 11/21/17 07:18 11/21/17 07:18 Exam: Gen - Awake, alert, oriented x 3, no acute distress HEENT - NCAT, PERRLA, EOMI, hearing grossly intact, oropharynx benign CV - RRR, normal S1 and S2, no M/R/G, no BLE edema Resp - Normal WOB, CTAB, no W/R/R GI - Soft, NT/ND, no masses, normal bowel sounds, no HSP Skin - Warm, dry, no rashes/lesions/ulcers Psych - Normal mood and affect, no depression or anxiety - Assessment and Plan (1) Acute encephalopathy Current Visit: Yes Status: Acute Assessment and Plan: currently resolved , patient was admitted to the ICU because of elevated BUN, severe sepsis , hypotension. She was intubated but has been weaned off pressors and not hypotensive anymore. Patient is in good mentation, A&O*3, conversing and responding to commands. Her Cr is trending down and was transferred to the floor on 11/19 Will continue to monitor and plan for physical therapy evaluation for discharge planning (2) Acute kidney injury superimposed on chronic kidney disease Current Visit: Yes Status: Chronic Assessment and Plan: patient has a Hx of CKD- likely due to her Hx of HTN and DM2. Patient was admitted to the ICU because of obstructive uropathy with b/l hydroureteronehrsis and is currently s/p cystoscopy and b/l tent placement. She tolerated the procedure well. - her Creatinine on admission was 5.6 currently it is trending down to 4.65. She has been hyperkalemic since admission (5.6-> 5.6-> 5.5) - given Kayaxelate 15mg - gentle hydration with 0.9% NaCl 125cc/hr for 24 hrs. 11/21 Avoid nephrotoxic medications. At the moment there is no indication for dialysis . Creatinine continues to trend down but is not back to her baseline of 2. Continue IV fluids and daily BMP. Nephrology following (3) Hematuria Current Visit: Yes Status: Resolved Assessment and Plan: currently resolved- patient was admitted to the ICU with iatrogenic hematuria - her CT showed large amounts of hemorrhagic products within the bladder- she is s /p cystoscopy and b/l ureteral stent placement , 200 mL of gelatinous well - organized clot was evacuated from the bladder with no evidence for any obvious tumors - patient currently stable post operatively. her urine has cleared overnight , H &H stable (4) Hydronephrosis Current Visit: No Status: Acute Assessment and Plan: See plan for hematuria. (5) UTI (urinary tract infection) Current Visit: Yes Status: Acute Assessment and Plan: riana was admitted to the ICU because of sepsis and hypotension secondary to her UTI . Her UA was positive for Nitries and small amout of leukocyte esterase. - her UTI could be likely due to her bilateral hydroureteronephrosis and hematuria which has currently resolved. She is s/p cystoscopy and b/l stent placement - Urine cultures grew shonna albicans. Continue cefepime in light of pending blood cultures. Patient had no dysuria on admission typical UTI symptoms, the source of her hematuria were blood clots in the bladder, and WBC has been trending down without fungal therapy, so candiduria is likely asymptomatic and no indication to treat. Discussed with pharmacy (6) Generalized weakness Current Visit: No Status: Acute Assessment and Plan: Needs PTOT evaluation. (7) Hypertension Current Visit: No Status: Chronic Assessment and Plan: Monitr BP and add antihypertensives as indicated (8) Type 2 diabetes mellitus Current Visit: No Status: Acute Assessment and Plan: Continue basal and sliding scale insulin coverage. Patient has generally poor intake. Closely monitor glucose level and adjust insulin dose accordingly (9) Chronic systolic heart failure Current Visit: No Status: Acute Assessment and Plan: Patient has PPM and AICD. Appears euvolemic at this point. Continue metoprolol. Temporarily hold losartan and Lasix at this point because of worsening renal function. Closely monitor fluid status. (10) Debility Current Visit: No Status: Acute Assessment and Plan: Patient in need PTOT evaluation after stabilization (11) DVT prophylaxis Current Visit: No Status: Acute Assessment and Plan: EPCDs - Time Spent with Patient Total time spent is greater than 50% in coordination of care (as documented) at patient's floor/unit and/or counseling patient: Internal Medicine: Result - Labs CBC & Chem 7: 11/21/17 03:44 11/21/17 03:44 Labs: Short CBC 11/20/17 11/21/17 Range/Units 11:32 03:44 WBC 16.1 H 11.3 H (4.3-11.1) K/mcL Hgb 8.8 L 8.2 L (11.5-15.4) g/dL Hct 26.8 L 25.5 L (35.3-44.9) % Plt Count 257 216 (140-400) K/mcL Neutrophils # 13.4 H 8.4 (1.6-8.9) K/mcL BMP 11/20/17 11/21/17 11:32 03:44 Sodium 139 140 Potassium 4.1 4.0 Chloride 106 107 Carbon Dioxide 21 L 23 BUN 115 H 107 H Creatinine 3.72 H 3.30 H Glucose 195 H 149 H Calcium 8.1 L 8.0 L - ABG Interpretation ABG results: ABG ABG pH 7.41 pH Units (7.32-7.45) 11/17/17 15:41 ABG pCO2 27 mmHg (35-45) L 11/17/17 15:41 ABG pO2 80 mmHg (85-104) L 11/17/17 15:41 ABG O2 Saturation 96 % (95-98) 11/17/17 15:41 PT/INR, D-dimer PT 17.1 Seconds (9.4-12.1) H 11/18/17 03:29 - VTE Documentation of Mechanical Device: Venous foot pump, device Consult Discharge Plan - Plan Referrals: Wale Lam DO [Primary Care Provider] - (3) Hematuria Qualifiers: Hematuria type: gross Qualified Code(s): R31.0 - Gross hematuria (4) Hydronephrosis Qualifiers: Hydronephrosis type: unspecified Qualified Code(s): N13.30 - Unspecified hydronephrosis (5) UTI (urinary tract infection) Qualifiers: Urinary tract infection type: site unspecified Hematuria presence: with hematuria Qualified Code(s): N39.0 - Urinary tract infection, site not specified; R31.9 - Hematuria, unspecified (7) Hypertension Qualifiers: Hypertension type: essential hypertension Qualified Code(s): I10 - Essential (primary) hypertension (8) Type 2 diabetes mellitus Qualifiers: Diabetes mellitus [facility] insulin use: with [facility] use Diabetes mellitus complication status: with kidney complications Diabetes mellitus complication detail: with chronic kidney disease Chronic kidney disease stage: stage 4 (severe) Qualified Code(s): E11.22 - Type 2 diabetes mellitus with diabetic chronic kidney disease; N18.4 - Chronic kidney disease, stage 4 (severe ); 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
--- NOTE | 2017-11-21 11:14 | Nephrology Progress Note ---
Date of Encounter: 11/21/17 Time of Encounter: 09:00 - Assessment and Plan (1) Acute kidney injury superimposed on chronic kidney disease Current Visit: Yes Status: Chronic Improved s/p bilateral ureteral stent placement with clot removal. history of CKD stage 4 and follows up with Dr. Kearney. Baseline creatinine 2 - 2.5. Creatinine on admission 5.31 currently improved to 3.3 Current GFR = improved to 14 from yesterday 12. Patient has improved urine output via 3 way urethral catheter. 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 (2) Bilateral hydronephrosis Current Visit: Yes Status: Acute s/p stents bilateral with clots removed. Manage per urology (3) Severe sepsis Current Visit: Yes Status: Acute Continue abx per primary team (4) Metabolic acidosis Current Visit: Yes Status: Acute Resolved with bicarb infusion (5) Anemia Current Visit: No Status: Acute Stable in Hb 8s Qualifiers: Anemia type: unspecified type Qualified Code(s): D64.9 - Anemia, unspecified Subjective Principal diagnosis: Hematuria, septic shock Interval history: Mrs. Bentley is s/p clot evacuation and bilateral ureteral stent placement day # 3. Her abdominal pain has improved. However, she continues to have poor appetite. She denies f/c/n/v, chest pain, SOB, cough, diarrhea. She would like to go home. 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 Objective - Vital Signs Vital signs: Vital Signs Temp Pulse Resp BP Pulse Ox 11/21/17 07:18 99.0 F 66 18 111/70 92 11/21/17 03:40 98.1 F 69 19 118/63 93 11/20/17 23:30 98.8 F 72 20 115/69 94 11/20/17 19:43 98.7 F 77 16 128/78 93 11/20/17 16:03 98.6 F 72 17 129/67 95 Intake and Output 11/20/17 11/21/17 11/21/17 23:59 07:59 15:59 Intake Total 0 / 0 1075 / 1075 120 / 120 Output Total 1550 / 1550 250 / 250 0 / 0 Balance -1550 / -1550 825 / 825 120 / 120 Intake: IV Fluids 1075 / 1075 Sodium Bicarbonate 75 MEQ In 0. 1075 / 1075 45% Sodium Chloride 1000 Ml 1000 Ml 1,000 ML @ 60 mls/hr IVC .[id number] [facility] Rx#:[id number] Oral 0 / 0 120 / 120 Output: Urine 0 / 0 Catheter 1550 / 1550 250 / 250 3-way Urethral 575 / 575 250 / 250 Other: Weight 101.2 kg Blood Glucose* 186 153 - General Appearance Exam: General appearance: Present: chronically ill EENT: Present: ATNC, mucous membranes moist Neck: Present: no JVD, supple Respiratory: Present: clear Cardiology: Present: edema, normal S1, normal S2 Gastrointestinal: Present: no tenderness, no guarding, obese Integumentary: Present: warm and dry, plunkett draining tea colored urine. Neurologic: Present: no focal deficit Musculoskeletal: Present: no deformities Psychiatric: Present: mood/affect appropriate, cooperative - Lab 11/21/17 03:44 11/21/17 03:44 Most recent lab results ABG pH 7.41 pH Units (7.32-7.45) 11/17/17 15:41 ABG pCO2 27 mmHg (35-45) L 11/17/17 15:41 ABG pO2 80 mmHg (85-104) L 11/17/17 15:41 ABG HCO3 17 mEq/L (21-27) L 11/17/17 15:41 ABG O2 Saturation 96 % (95-98) 11/17/17 15:41 Calcium 8.0 mg/dL (8.6-10.3) L 11/21/17 03:44 Phosphorus 4.0 mg/dL (2.7-4.5) 11/21/17 03:44 Magnesium 2.4 mg/dL (1.6-2.6) 11/21/17 03:44 Urine Creatinine 56 mg/dL 11/18/17 11:54 Urine Sodium 55.9 mEq/L 11/18/17 11:54 - VTE Documentation of Mechanical Device: Venous foot pump, device Consult Discharge Plan - Plan Referrals: Wale Lam DO [Primary Care Provider] -
[2017-11-21] MEDS: *HR* OxyCODONE Immed Rel 5 MG TABLET PO PRN ×2 (13:06→22:25)
[2017-11-21 13:43] LABS: Hepatitis B Surface Antigen Nonreactive (Nonreactive)
[2017-11-21] MEDS: Insulin DETEMIR 100 UNIT/ML X5UNITS SQ SCH (22:19)
[2017-11-22] MEDS: Sodium Bicarbonate 75 MEQ in 0.45 % Sodium Chloride 1,000 ML IVC SCH ×2 (02:20→23:01)
[2017-11-22 04:50] LABS: Basophils % 0.1 %; Eosinophils # 0.4 K/mcL (0.0-0.6); Eosinophils % 2.9 %; Hematocrit 28.4 % (35.3-44.9); Hemoglobin 8.7 g/dL (11.5-15.4); Immature Granulocytes % 1.5 % (0-4); Lymphocytes # 1.5 K/mcL (0.6-4.6); Lymphocytes % 10.8 %; Mean Corpuscular HGB Conc 30.6 g/dL (31.6-35.5); Mean Corpuscular Hemoglobin 28.4 pg (28.0-33.3); Mean Corpuscular Volume 92.8 fL (83.0-100.0); Mean Platelet Volume 10.7 fL (9.4-12.4); Monocytes # 1.3 K/mcL (0.0-1.3); Monocytes % 9.3 %; Neutrophils # 10.4 K/mcL (1.6-8.9); Platelet Count 203 K/mcL (140-400); Red Blood Count 3.06 M/mcL (3.82-4.97); Red Cell Distribution Width 15.4 % (11.5-14.5); Segmented Neutrophils % 75.4 %
[2017-11-22 05:07] LABS: Calcium 7.9 mg/dL (8.6-10.3); Magnesium 2.4 mg/dL (1.6-2.6); Phosphorous 3.6 mg/dL (2.7-4.5); Potassium 4.3 mEq/L (3.5-5.1)
[2017-11-22] MEDS: Acetaminophen 325 MG TABLET PO PRN (05:08)
--- NOTE | 2017-11-22 08:34 | Event Note ---
Date of Encounter: 11/22/17 Time of Encounter: 08:00 Patient seen and examined sitting upright in bed in no apparent distress. Patient denies any new complaints. Unable to answer pointed questions. Urethral catheter indwelling, draining clear urine sufficiently into bedside bag.
[2017-11-22] MEDS: Insulin LISPRO 300 UNITS/3 ML VIAL SQ SCH ×4 (08:49→22:25)
[2017-11-22] MEDS: Cefepime HCl 2,000 MG in Water for inj. (sterile) 20 ML 20 ML IVP SCH (08:50)
[2017-11-22] MEDS: Miconazole 2% ointment 114 GM TUBE TP SCH (08:50)
[2017-11-22] MEDS: Aspirin Enteric Coated 81 MG Tablet PO SCH (08:51)
[2017-11-22] MEDS: Ascorbic Acid 500 MG TABLET PO SCH ×2 (08:51→22:23)
[2017-11-22] MEDS: Metoprolol XL (24 HR) Succ 50 MG TAB.ER.24H PO SCH (08:51)
[2017-11-22] MEDS: Multivit/Ca/Min/Fe/FA 1 TAB TABLET PO SCH (08:51)
[2017-11-22] MEDS ORDERED: Ondansetron 4 MG/2 ML VIAL IVP ONE (11:36)
[2017-11-22] MEDS: *HR* OxyCODONE Immed Rel 5 MG TABLET PO PRN (13:17)
--- NOTE | 2017-11-22 20:35 | Internal Med Progress Note ---
Hospitalist Progress Note - Encounter Date of Encounter: 11/22/17 Time of Encounter: 11:29 - Subjective Interval History: Patient was seen and examined bedside. Denies new complains. - Exam Vitals: Temp Pulse Resp BP Pulse Ox 98.9 F 63 15 145/69 97 11/22/17 19:10 11/22/17 19:10 11/22/17 19:10 11/22/17 19:10 11/22/17 19:10 Exam: Gen - Awake, alert, oriented x 3, no acute distress HEENT - NCAT, PERRLA, EOMI, hearing grossly intact, oropharynx benign CV - RRR, normal S1 and S2, no M/R/G, no BLE edema Resp - Normal WOB, CTAB, no W/R/R GI - Soft, NT/ND, no masses, normal bowel sounds, no HSP Skin - Warm, dry, no rashes/lesions/ulcers Psych - Normal mood and affect, no depression or anxiety - Assessment and Plan (1) Hematuria Current Visit: Yes Status: Resolved Assessment and Plan: currently resolved- patient was admitted to the ICU with iatrogenic hematuria - her CT showed large amounts of hemorrhagic products within the bladder- she is s /p cystoscopy and b/l ureteral stent placement , 200 mL of gelatinous well - organized clot was evacuated from the bladder with no evidence for any obvious tumors - patient currently stable post operatively. her urine has cleared overnight , H &H stable (2) Hydronephrosis Current Visit: No Status: Acute Assessment and Plan: See plan for hematuria. Urology following (3) UTI (urinary tract infection) Current Visit: Yes Status: Acute Assessment and Plan: patient was admitted to the ICU because of sepsis and hypotension secondary to her UTI . Her UA was positive for Nitries and small amout of leukocyte esterase. - her UTI could be likely due to her bilateral hydroureteronephrosis and hematuria which has currently resolved. She is s/p cystoscopy and b/l stent placement - Urine cultures grew shonna albicans. Continue cefepime in light of pending blood cultures. Patient had no dysuria on admission typical UTI symptoms, the source of her hematuria were blood clots in the bladder, and WBC has been trending down without fungal therapy, so candiduria is likely asymptomatic and no indication to treat. Discussed with pharmacy (4) Acute kidney injury superimposed on chronic kidney disease Current Visit: Yes Status: Chronic Assessment and Plan: patient has a Hx of CKD- likely due to her Hx of HTN and DM2. Patient was admitted to the ICU because of obstructive uropathy with b/l hydroureteronehrsis and is currently s/p cystoscopy and b/l tent placement. She tolerated the procedure well. - her Creatinine on admission was 5.6 currently it is trending down to 4.65. She has been hyperkalemic since admission (5.6-> 5.6-> 5.5) - given Kayaxelate 15mg - gentle hydration with 0.9% NaCl 125cc/hr for 24 hrs. 11/21 Avoid nephrotoxic medications. At the moment there is no indication for dialysis . Creatinine continues to trend down but is not back to her baseline of 2. Continue IV fluids and daily BMP. Nephrology following (5) Hypertension Current Visit: No Status: Chronic Assessment and Plan: Monitr BP and add antihypertensives as indicated (6) Type 2 diabetes mellitus Current Visit: No Status: Acute Assessment and Plan: Continue basal and sliding scale insulin coverage. Patient has generally poor intake. Closely monitor glucose level and adjust insulin dose accordingly (7) Chronic systolic heart failure Current Visit: No Status: Acute Assessment and Plan: Patient has PPM and AICD. Appears euvolemic at this point. Continue metoprolol. Temporarily hold losartan and Lasix at this point because of worsening renal function. Closely monitor fluid status. (8) Debility Current Visit: No Status: Acute Assessment and Plan: Patient in need PTOT evaluation after stabilization (9) Acute encephalopathy Current Visit: Yes Status: Acute Assessment and Plan: currently resolved , patient was admitted to the ICU because of elevated BUN, severe sepsis , hypotension. She was intubated but has been weaned off pressors and not hypotensive anymore. Patient is in good mentation, A&O*3, conversing and responding to commands. Her Cr is trending down and was transferred to the floor on 11/19 Will continue to monitor and plan for physical therapy evaluation for discharge planning (10) DVT prophylaxis Current Visit: No Status: Acute Assessment and Plan: EPCDs (11) Generalized weakness Current Visit: No Status: Acute Assessment and Plan: Needs PTOT evaluation. - Time Spent with Patient Total time spent is greater than 50% in coordination of care (as documented) at patient's floor/unit and/or counseling patient: Internal Medicine: Result - Labs CBC & Chem 7: 11/23/17 03:48 11/23/17 03:48 Labs: Short CBC 11/22/17 Range/Units 03:44 WBC 13.8 H (4.3-11.1) K/mcL Hgb 8.7 L (11.5-15.4) g/dL Hct 28.4 L (35.3-44.9) % Plt Count 203 (140-400) K/mcL Neutrophils # 10.4 H (1.6-8.9) K/mcL BMP 11/22/17 03:44 Sodium 137 Potassium 4.3 Chloride 105 Carbon Dioxide 21 L BUN 98 H Creatinine 2.97 H Glucose 153 H Calcium 7.9 L - ABG Interpretation ABG results: ABG ABG pH 7.41 pH Units (7.32-7.45) 11/17/17 15:41 ABG pCO2 27 mmHg (35-45) L 11/17/17 15:41 ABG pO2 80 mmHg (85-104) L 11/17/17 15:41 ABG O2 Saturation 96 % (95-98) 11/17/17 15:41 PT/INR, D-dimer PT 17.1 Seconds (9.4-12.1) H 11/18/17 03:29 - VTE Documentation of Mechanical Device: Venous foot pump, device Consult Discharge Plan - Plan Referrals: Wale Lam DO [Primary Care Provider] - (1) Hematuria Qualifiers: Hematuria type: gross Qualified Code(s): R31.0 - Gross hematuria (2) Hydronephrosis Qualifiers: Hydronephrosis type: unspecified Qualified Code(s): N13.30 - Unspecified hydronephrosis (3) UTI (urinary tract infection) Qualifiers: Urinary tract infection type: site unspecified Hematuria presence: with hematuria Qualified Code(s): N39.0 - Urinary tract infection, site not specified; R31.9 - Hematuria, unspecified (5) Hypertension Qualifiers: Hypertension type: essential hypertension Qualified Code(s): I10 - Essential (primary) hypertension (6) Type 2 diabetes mellitus Qualifiers: 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
--- NOTE | 2017-11-22 20:58 | Nephrology Progress Note ---
Date of Encounter: 11/22/17 Time of Encounter: 14:00 - Assessment and Plan (1) Acute kidney injury superimposed on chronic kidney disease Current Visit: Yes Status: Chronic Improved s/p bilateral ureteral stent placement with clot removal day #4. History of CKD stage 4 and follows up with Dr. Kearney. Baseline creatinine 2 - 2.5. Creatinine on admission 5.31 currently improved to 2.97 Current GFR = improved to 16 from yesterday's 14 Patient has improved urine output via 3 way urethral catheter. Obstruction by clots likely cause of TENISHA on CKD and I expect kidney function to continue improving Given current condition along with good UOP, no acute indication for PYROTECHNIC ASSEMBLER at this time Nephrology will continue to follow. Continue to avoid nephrotoxins if possible Strict I/Os. (2) Bilateral hydronephrosis Current Visit: Yes Status: Acute s/p stents bilateral with clots removed day #4. Manage per urology (3) Anemia Current Visit: No Status: Acute Stable in Hb 8s Qualifiers: Anemia type: unspecified type Qualified Code(s): D64.9 - Anemia, unspecified Subjective Principal diagnosis: Hematuria, septic shock Interval history: Mrs. Bentley is s/p clot evacuation and bilateral ureteral stent placement day # 4. Her abdominal pain has improved. However, she continues to have poor appetite. She denies f/c/n/v, chest pain, SOB, cough, diarrhea. She would like to go home. She is more confused and has more difficulty answering my questions. Patient states she wants to go home. Objective - Vital Signs Vital signs: Vital Signs Temp Pulse Resp BP Pulse Ox 11/22/17 19:10 98.9 F 63 15 145/69 97 11/22/17 15:49 98.6 F 59 16 120/63 97 11/22/17 11:23 98.3 F 64 16 146/68 99 11/22/17 06:39 100.1 F H 75 16 123/60 93 11/22/17 04:34 101.1 F H 73 17 116/67 92 11/22/17 02:00 100.1 F H 79 18 134/68 92 11/21/17 20:55 98.2 F 72 15 133/70 94 Intake and Output 11/22/17 11/22/17 11/22/17 07:59 15:59 23:59 Intake Total 1075 / 1075 Output Total 650 / 650 400 / 400 350 / 350 Balance 425 / 425 -400 / -400 -350 / -350 Intake: IV Fluids 1075 / 1075 Sodium Bicarbonate 75 MEQ In 0. 1075 / 1075 45% Sodium Chloride 1000 Ml 1000 Ml 1,000 ML @ 60 mls/hr IVC .[id number] MAGAN Rx#:[id number] Output: Urine 650 / 650 Catheter 400 / 400 350 / 350 3-way Urethral 200 / 200 350 / 350 Other: Meal Lunch Percent of Meal Consumed 0% Weight 102.1 kg Blood Glucose* 164 202 Patient Weight 11/22/17 23:59 Weight 102.1 kg - General Appearance Exam: General appearance: Present: chronically ill EENT: Present: ATNC, mucous membranes moist Neck: Present: no JVD, supple Respiratory: Present: clear Cardiology: Present: edema, normal S1, normal S2 Gastrointestinal: Present: no tenderness, no guarding, obese Integumentary: Present: warm and dry, plunkett draining tea colored urine. Neurologic: Present: no focal deficit Musculoskeletal: Present: no deformities Psychiatric: Present: mood/affect appropriate, cooperative - Lab 11/22/17 03:44 11/22/17 03:44 Most recent lab results ABG pH 7.41 pH Units (7.32-7.45) 11/17/17 15:41 ABG pCO2 27 mmHg (35-45) L 11/17/17 15:41 ABG pO2 80 mmHg (85-104) L 11/17/17 15:41 ABG HCO3 17 mEq/L (21-27) L 11/17/17 15:41 ABG O2 Saturation 96 % (95-98) 11/17/17 15:41 Calcium 7.9 mg/dL (8.6-10.3) L 11/22/17 03:44 Phosphorus 3.6 mg/dL (2.7-4.5) 11/22/17 03:44 Magnesium 2.4 mg/dL (1.6-2.6) 11/22/17 03:44 Urine Creatinine 56 mg/dL 11/18/17 11:54 Urine Sodium 55.9 mEq/L 11/18/17 11:54 - VTE Documentation of Mechanical Device: Venous foot pump, device Consult Discharge Plan - Plan Referrals: Wale Lam DO [Primary Care Provider] -
[2017-11-22] MEDS: Insulin DETEMIR 100 UNIT/ML X5UNITS SQ SCH (22:25)
[2017-11-23 04:32] LABS: Basophils % 0.1 %; Eosinophils # 0.5 K/mcL (0.0-0.6); Eosinophils % 3.5 %; Hemoglobin 8.1 g/dL (11.5-15.4); Immature Granulocytes % 1.6 % (0-4); Lymphocytes # 1.4 K/mcL (0.6-4.6); Lymphocytes % 9.5 %; Mean Corpuscular HGB Conc 31.2 g/dL (31.6-35.5); Mean Corpuscular Hemoglobin 27.9 pg (28.0-33.3); Mean Corpuscular Volume 89.7 fL (83.0-100.0); Mean Platelet Volume 10.8 fL (9.4-12.4); Monocytes # 1.1 K/mcL (0.0-1.3); Monocytes % 7.7 %; Neutrophils # 11.4 K/mcL (1.6-8.9); Platelet Count 217 K/mcL (140-400); Red Cell Distribution Width 15.2 % (11.5-14.5); Segmented Neutrophils % 77.6 %
[2017-11-23 05:04] LABS: Calcium 8.1 mg/dL (8.6-10.3); Magnesium 2.1 mg/dL (1.6-2.6); Phosphorous 3.7 mg/dL (2.7-4.5); Potassium 3.9 mEq/L (3.5-5.1)
--- NOTE | 2017-11-23 07:33 | Urology Progress Note ---
Date of Encounter: 11/23/17 Time of Encounter: 07:30 - Assessment and Plan (1) Hematuria Current Visit: Yes Status: Resolved Assessment and plan: ok to remove plunkett cath prior to discharge. pt has bilateral stents in place and my office will contact to set appt appointment removal. Qualifiers: Hematuria type: gross Qualified Code(s): R31.0 - Gross hematuria Progress Note Narrative: pt was nonverbal this AM. nods head that everything is OK. urine clear Objective Initial Vital Signs Temp Pulse Resp BP Pulse Ox 98.2 F 97 18 125/63 100 11/17/17 04:49 11/17/17 04:49 11/17/17 04:49 11/17/17 04:49 11/17/17 04:49 - General physical appearance Present: no distress - Additional Exam urine is clear. - Labs 11/23/17 03:48 11/23/17 03:48 Diabetes panel 11/23/17 Range/Units 03:48 Sodium 139 (136-145) mEq/L Potassium 3.9 (3.5-5.1) mEq/L Chloride 104 (98-107) mEq/L Carbon Dioxide 25 (23-29) mEq/L BUN 86 H (8-23) mg/dL Creatinine 2.86 H (0.60-1.20) mg/dL Glucose 139 H (70-105) mg/dL Calcium 8.1 L (8.6-10.3) mg/dL Calcium panel 11/23/17 Range/Units 03:48 Calcium 8.1 L (8.6-10.3) mg/dL Phosphorus 3.7 (2.7-4.5) mg/dL Pituitary panel 11/23/17 Range/Units 03:48 Sodium 139 (136-145) mEq/L Potassium 3.9 (3.5-5.1) mEq/L Chloride 104 (98-107) mEq/L Carbon Dioxide 25 (23-29) mEq/L BUN 86 H (8-23) mg/dL Creatinine 2.86 H (0.60-1.20) mg/dL Glucose 139 H (70-105) mg/dL Calcium 8.1 L (8.6-10.3) mg/dL Adrenal panel 11/23/17 Range/Units 03:48 Sodium 139 (136-145) mEq/L Potassium 3.9 (3.5-5.1) mEq/L Chloride 104 (98-107) mEq/L Carbon Dioxide 25 (23-29) mEq/L BUN 86 H (8-23) mg/dL Creatinine 2.86 H (0.60-1.20) mg/dL Glucose 139 H (70-105) mg/dL Calcium 8.1 L (8.6-10.3) mg/dL - VTE Documentation of Mechanical Device: Venous foot pump, device Consult Discharge Plan - Plan Referrals: Wale Lam DO [Primary Care Provider] -
[2017-11-23] MEDS: Insulin LISPRO 300 UNITS/3 ML VIAL SQ SCH ×4 (08:00→21:00)
[2017-11-23] MEDS: Ascorbic Acid 500 MG TABLET PO SCH ×2 (08:16→21:08)
[2017-11-23] MEDS: Multivit/Ca/Min/Fe/FA 1 TAB TABLET PO SCH (08:16)
[2017-11-23] MEDS: Aspirin Enteric Coated 81 MG Tablet PO SCH (08:16)
[2017-11-23] MEDS: Cefepime HCl 2,000 MG in Water for inj. (sterile) 20 ML 20 ML IVP SCH (08:17)
[2017-11-23] MEDS: Miconazole 2% ointment 114 GM TUBE TP SCH (08:17)
[2017-11-23] MEDS: Metoprolol XL (24 HR) Succ 50 MG TAB.ER.24H PO SCH (08:17)
--- NOTE | 2017-11-23 10:25 | Internal Med Progress Note ---
Hospitalist Progress Note - Encounter Date of Encounter: 11/23/17 Time of Encounter: 10:21 - Subjective Interval History: Patient was seen and examined bedside. Denies new complains. Eating very minimal as per family at bedside. Denies new complaint - Exam Vitals: Temp Pulse Resp BP Pulse Ox 98.5 F 60 16 134/67 97 11/23/17 07:05 11/23/17 07:05 11/23/17 07:05 11/23/17 07:05 11/23/17 07:05 Exam: Gen - Awake, alert, oriented x 3, no acute distress HEENT - NCAT, PERRLA, EOMI, hearing grossly intact, oropharynx benign CV - RRR, normal S1 and S2, no M/R/G, no BLE edema Resp - Normal WOB, CTAB, no W/R/R GI - Soft, NT/ND, no masses, normal bowel sounds, no HSP Skin - Warm, dry, no rashes/lesions/ulcers Psych - Normal mood and affect, no depression or anxiety - Assessment and Plan (1) Acute kidney injury superimposed on chronic kidney disease Current Visit: Yes Status: Chronic Assessment and Plan: Acute kidney injury likely due to obstructive uropathy with b/l hydroureteronehrsis and is currently s/p cystoscopy and b/l tent placement. - Creatinine trending down. - Avoid nephrotoxic medications. At the moment there is no indication for dialysis. Nephro following. Continue IV fluids and daily BMP. Nephrology following (2) Hematuria Current Visit: Yes Status: Resolved Assessment and Plan: currently resolved- patient was admitted to the ICU with iatrogenic hematuria - her CT showed large amounts of hemorrhagic products within the bladder- she is s /p cystoscopy and b/l ureteral stent placement , 200 mL of gelatinous well - organized clot was evacuated from the bladder with no evidence for any obvious tumors - patient currently stable post operatively. her urine has cleared overnight , H &H stable (3) Hydronephrosis Current Visit: No Status: Acute Assessment and Plan: See plan for hematuria. Urology following. Okay to remove 40 on discharge as per urology (4) UTI (urinary tract infection) Current Visit: Yes Status: Acute Assessment and Plan: patient was admitted to the ICU because of sepsis and hypotension secondary to her UTI . - her UTI could be likely due to her bilateral hydroureteronephrosis and hematuria which has currently resolved. She is s/p cystoscopy and b/l stent placement - Urine cultures grew shonna albicans. - Continue cefepime in light of pending blood cultures. Previous cultures NGTD. repeate cultures pending. Has candiduria is likely asymptomatic and no indication to treat. We will treat her with antibiotics for 7 days. (5) Hypertension Current Visit: No Status: Chronic Assessment and Plan: Monitr BP and add antihypertensives as indicated (6) Type 2 diabetes mellitus Current Visit: No Status: Acute Assessment and Plan: Continue basal and sliding scale insulin coverage. Patient has generally poor intake. Closely monitor glucose level and adjust insulin dose accordingly (7) Chronic systolic heart failure Current Visit: No Status: Acute Assessment and Plan: Patient has PPM and AICD. Appears euvolemic at this point. Continue metoprolol. Temporarily hold losartan and Lasix at this point because of worsening renal function. Closely monitor fluid status. (8) Debility Current Visit: No Status: Acute Assessment and Plan: Patient in need PTOT evaluation after stabilization (9) Acute encephalopathy Current Visit: Yes Status: Acute Assessment and Plan: currently resolved. Patient is in good mentation, A&O*3, conversing and responding to commands. Will continue to monitor and plan for physical therapy evaluation for discharge planning possibly in 1 or 2 days (10) DVT prophylaxis Current Visit: No Status: Acute Assessment and Plan: EPCDs (11) Generalized weakness Current Visit: No Status: Acute Assessment and Plan: Needs significant assistance with PT likely need ECF placement on discharge. - Time Spent with Patient Total time spent is greater than 50% in coordination of care (as documented) at patient's floor/unit and/or counseling patient: Internal Medicine: Result - Labs CBC & Chem 7: 11/23/17 03:48 11/23/17 03:48 Labs: Short CBC 11/23/17 Range/Units 03:48 WBC 14.7 H (4.3-11.1) K/mcL Hgb 8.1 L (11.5-15.4) g/dL Hct 26.0 L (35.3-44.9) % Plt Count 217 (140-400) K/mcL Neutrophils # 11.4 H (1.6-8.9) K/mcL BMP 11/23/17 03:48 Sodium 139 Potassium 3.9 Chloride 104 Carbon Dioxide 25 BUN 86 H Creatinine 2.86 H Glucose 139 H Calcium 8.1 L - ABG Interpretation ABG results: ABG ABG pH 7.41 pH Units (7.32-7.45) 11/17/17 15:41 ABG pCO2 27 mmHg (35-45) L 11/17/17 15:41 ABG pO2 80 mmHg (85-104) L 11/17/17 15:41 ABG O2 Saturation 96 % (95-98) 11/17/17 15:41 PT/INR, D-dimer PT 17.1 Seconds (9.4-12.1) H 11/18/17 03:29 - VTE Documentation of Mechanical Device: Venous foot pump, device Consult Discharge Plan - Plan Referrals: Wale Lam DO [Primary Care Provider] - (2) Hematuria Qualifiers: Hematuria type: gross Qualified Code(s): R31.0 - Gross hematuria (3) Hydronephrosis Qualifiers: Hydronephrosis type: unspecified Qualified Code(s): N13.30 - Unspecified hydronephrosis (4) UTI (urinary tract infection) Qualifiers: Urinary tract infection type: site unspecified Hematuria presence: with hematuria Qualified Code(s): N39.0 - Urinary tract infection, site not specified; R31.9 - Hematuria, unspecified (5) Hypertension Qualifiers: Hypertension type: essential hypertension Qualified Code(s): I10 - Essential (primary) hypertension (6) Type 2 diabetes mellitus Qualifiers: Diabetes mellitus rn long term care insulin use: with usp use Diabetes mellitus complication status: with kidney complications Diabetes mellitus complication detail: with chronic kidney disease Chronic kidney disease stage: stage 4 (severe) Qualified Code(s): E11.22 - Type 2 diabetes mellitus with diabetic chronic kidney disease; N18.4 - Chronic kidney disease, stage 4 (severe ); Z79.4 - correction (current) use of insulin
[2017-11-23] MEDS: *HR* OxyCODONE Immed Rel 5 MG TABLET PO PRN (15:15)
[2017-11-23] MEDS: Sodium Bicarbonate 75 MEQ in 0.45 % Sodium Chloride 1,000 ML IVC SCH (15:48)
--- NOTE | 2017-11-23 19:55 | Nephrology Progress Note ---
Date of Encounter: 11/23/17 Time of Encounter: 19:50 - Assessment and Plan (1) Acute kidney injury Current Visit: Yes Status: Acute Secondary to obstruction. Improved with ureteral stents and plunkett placement followed by urology. Given current condition along with good UOP, no acute indication for MANAGER FIELD SERVICES at this time Continue to avoid nephrotoxins if possible (2) Anemia Current Visit: No Status: Acute will monitor Qualifiers: Anemia type: unspecified type Qualified Code(s): D64.9 - Anemia, unspecified (3) Bilateral hydronephrosis Current Visit: Yes Status: Acute s/p stents bilateral, appreciate urology's help (4) Severe sepsis Current Visit: Yes Status: Acute Continue abx per primary team Resolved. (5) Metabolic acidosis Current Visit: Yes Status: Acute Resolved. (6) CKD (chronic kidney disease) stage 4, GFR 15-29 ml/min Current Visit: Yes Status: Acute Baseline GFR in the 20s this year so far Subjective Principal diagnosis: Hematuria, septic shock Interval history: Patient seen and evaluated. She has no new complaints. Her family is at her bedside. Objective - Vital Signs Vital signs: Vital Signs Temp Pulse Resp BP Pulse Ox 11/23/17 18:28 99.6 F 63 18 118/72 97 11/23/17 15:55 99.3 F 60 16 132/76 98 11/23/17 11:11 99.9 F H 63 16 119/56 97 11/23/17 07:05 98.5 F 60 16 134/67 97 11/23/17 03:26 99.5 F 63 15 135/57 98 11/22/17 23:33 98.5 F 60 16 126/64 98 Intake and Output 11/23/17 11/23/17 11/23/17 07:59 15:59 23:59 Intake Total 1325 / 1325 Output Total 780 / 780 Balance 545 / 545 Intake: IV Fluids 1085 / 1085 Sodium Bicarbonate 75 MEQ In 0. 1065 / 1065 45% Sodium Chloride 1000 Ml 1000 Ml 1,000 ML @ 60 mls/hr IVC .[id number] MAGAN Rx#:[id number] Maxipime 2,000 MG In Water for 20 / 20 inj. (sterile) 20 ML @ 300 mls/ hr IVP Q24H MAGAN Rx#:[id number] Oral 240 / 240 Output: Catheter 780 / 780 Other: Meal Breakfast Percent of Meal Consumed 10% Blood Glucose* 135 213 - General Appearance General appearance: Present: well-developed, well-nourished EENT: Present: ATNC Neck: Present: supple Cardiology: Present: regular rate Integumentary: Present: warm and dry Neurologic: Present: alert and oriented x3 - Lab 11/23/17 03:48 11/23/17 03:48 Most recent lab results ABG pH 7.41 pH Units (7.32-7.45) 11/17/17 15:41 ABG pCO2 27 mmHg (35-45) L 11/17/17 15:41 ABG pO2 80 mmHg (85-104) L 11/17/17 15:41 ABG HCO3 17 mEq/L (21-27) L 11/17/17 15:41 ABG O2 Saturation 96 % (95-98) 11/17/17 15:41 Calcium 8.1 mg/dL (8.6-10.3) L 11/23/17 03:48 Phosphorus 3.7 mg/dL (2.7-4.5) 11/23/17 03:48 Magnesium 2.1 mg/dL (1.6-2.6) 11/23/17 03:48 Urine Creatinine 56 mg/dL 11/18/17 11:54 Urine Sodium 55.9 mEq/L 11/18/17 11:54 - VTE Documentation of Mechanical Device: Venous foot pump, device Consult Discharge Plan - Plan Referrals: Wale Lam DO [Primary Care Provider] -
[2017-11-23] MEDS: Insulin DETEMIR 100 UNIT/ML X5UNITS SQ SCH (21:08)
[2017-11-24 06:51] LABS: Basophils % 0.1 %; Eosinophils # 0.6 K/mcL (0.0-0.6); Hematocrit 25.9 % (35.3-44.9); Hemoglobin 7.9 g/dL (11.5-15.4); Immature Granulocytes % 1.4 % (0-4); Lymphocytes # 1.3 K/mcL (0.6-4.6); Lymphocytes % 10.8 %; Mean Corpuscular HGB Conc 30.5 g/dL (31.6-35.5); Mean Corpuscular Hemoglobin 27.9 pg (28.0-33.3); Mean Corpuscular Volume 91.5 fL (83.0-100.0); Mean Platelet Volume 10.8 fL (9.4-12.4); Monocytes # 1.1 K/mcL (0.0-1.3); Monocytes % 9.4 %; Platelet Count 240 K/mcL (140-400); Red Blood Count 2.83 M/mcL (3.82-4.97); Red Cell Distribution Width 14.9 % (11.5-14.5); Segmented Neutrophils % 73.3 %
[2017-11-24 06:55] LABS: Neutrophils # 8.6 K/mcL (1.6-8.9)
[2017-11-24 07:10] LABS: Phosphorous 3.7 mg/dL (2.7-4.5); Potassium 3.9 mEq/L (3.5-5.1)
[2017-11-24] MEDS: Insulin LISPRO 300 UNITS/3 ML VIAL SQ SCH ×4 (07:39→20:30)
[2017-11-24] MEDS: Multivit/Ca/Min/Fe/FA 1 TAB TABLET PO SCH (08:22)
[2017-11-24] MEDS: Acetaminophen 325 MG TABLET PO PRN (08:22)
[2017-11-24] MEDS: Metoprolol XL (24 HR) Succ 50 MG TAB.ER.24H PO SCH (08:22)
[2017-11-24] MEDS: Ascorbic Acid 500 MG TABLET PO SCH ×2 (08:22→20:18)
[2017-11-24] MEDS: Aspirin Enteric Coated 81 MG Tablet PO SCH (08:23)
[2017-11-24] MEDS: Cefepime HCl 2,000 MG in Water for inj. (sterile) 20 ML 20 ML IVP SCH (08:23)
[2017-11-24] MEDS: Sodium Bicarbonate 75 MEQ in 0.45 % Sodium Chloride 1,000 ML IVC SCH (08:24)
[2017-11-24] MEDS: Miconazole 2% ointment 114 GM TUBE TP SCH (09:14)
--- NOTE | 2017-11-24 12:54 | Nephrology Progress Note ---
Date of Encounter: 11/24/17 Time of Encounter: 09:25 - Assessment and Plan (1) Acute kidney injury superimposed on chronic kidney disease Current Visit: Yes Status: Chronic Secondary to obstruction. Improved with ureteral stents and plunkett placement followed by urology. 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 Strick I/Os. Patient should follow-up closely with outpatient nephrology when she is discharged. She developed episodes of fevers last night and this AM. Urine culture with shonna. Final blood culture pending. (2) Anemia Current Visit: No Status: Acute Patient presented with hematuria secondary to obstruction. Hb continues to gradually decrease: 7.9/8.1/8.7 Start anemia work-up: pending iron profile, folate, transferrin, vit B12. Supplement as appropriate. Qualifiers: Anemia type: unspecified type Qualified Code(s): D64.9 - Anemia, unspecified (3) Bilateral hydronephrosis Current Visit: Yes Status: Acute s/p stents bilateral, appreciate urology's help (4) Severe sepsis Current Visit: Yes Status: Acute Continue abx per primary team Resolved. (5) Metabolic acidosis Current Visit: Yes Status: Acute Resolved. (6) CKD (chronic kidney disease) stage 4, GFR 15-29 ml/min Current Visit: Yes Status: Acute Baseline GFR in the 20s this year so far. Currently 16. Gradually returning to baseline. Subjective Principal diagnosis: Hematuria, septic shock Interval history: Mrs. Bentley is s/p clot evacuation and bilateral ureteral stent placement day # 6. Her abdominal pain has improved. She is becoming less verbal today. not at bedside. She continues to have poor appetite. She denies chills, nausea, vomiting, chest pain, SOB. She does admits to fatigue and weakness. She also developed a fever this AM of 100.9 and yesterday night 101.2. Objective - Vital Signs Vital signs: Vital Signs Temp Pulse Resp BP Pulse Ox 11/24/17 11:55 97.9 F 61 16 128/61 95 11/24/17 06:39 100.9 F H 62 16 122/55 97 11/24/17 04:40 99.2 F 11/24/17 03:31 100.4 F H 67 16 142/68 96 11/24/17 00:36 99.2 F 11/23/17 22:19 101.2 F H 68 18 123/69 96 11/23/17 18:28 99.6 F 63 18 118/72 97 11/23/17 15:55 99.3 F 60 16 132/76 98 Intake and Output 11/23/17 11/24/17 11/24/17 23:59 07:59 15:59 Intake Total 975 / 975 160 / 160 Output Total 550 / 550 150 / 150 Balance 425 / 425 Intake: IV Fluids 975 / 975 Sodium Bicarbonate 75 MEQ In 0. 975 / 975 45% Sodium Chloride 1000 Ml 1000 Ml 1,000 ML @ 60 mls/hr IVC .[id number] MAGAN Rx#:[id number] Oral 160 / 160 Output: Catheter 550 / 550 150 / 150 Other: Meal Breakfast Percent of Meal Consumed 5% Blood Glucose* 128 113 184 - General Appearance Exam: Secondary to obstruction. Improved with ureteral stents and plunkett placement followed by urology. 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 Strick I/Os. Patient requesting to be discharged.She is ok to be discharged on nephrology's point of view with close follow-up outpatient. (2) Anemia Current Visit: No Status: Acute Patient here with complaints of hematuria 2/2 obstruction. Hb continues to gradually drop: 7.9/8.1/8.7. Start anemia work-up: Pending Iron profile, folate, transferrin, vitamin B12. Supplement as needed. Qualifiers: Anemia type: unspecified type Qualified Code(s): D64.9 - Anemia, unspecified (3) Bilateral hydronephrosis Current Visit: Yes Status: Acute s/p stents bilateral, appreciate urology's help (4) Severe sepsis Current Visit: Yes Status: Acute Continue abx per primary team Resolved. (5) Metabolic acidosis Current Visit: Yes Status: Acute Resolved. (6) CKD (chronic kidney disease) stage 4, GFR 15-29 ml/min Current Visit: Yes Status: Acute Baseline GFR in the 20s this year so far. Currently 16. Gradually improving to baseline. - Lab 11/24/17 05:35 11/24/17 05:35 Most recent lab results ABG pH 7.41 pH Units (7.32-7.45) 11/17/17 15:41 ABG pCO2 27 mmHg (35-45) L 11/17/17 15:41 ABG pO2 80 mmHg (85-104) L 11/17/17 15:41 ABG HCO3 17 mEq/L (21-27) L 11/17/17 15:41 ABG O2 Saturation 96 % (95-98) 11/17/17 15:41 Calcium 8.0 mg/dL (8.6-10.3) L 11/24/17 05:35 Phosphorus 3.7 mg/dL (2.7-4.5) 11/24/17 05:35 Magnesium 2.0 mg/dL (1.6-2.6) 11/24/17 05:35 Urine Creatinine 56 mg/dL 11/18/17 11:54 Urine Sodium 55.9 mEq/L 11/18/17 11:54 - VTE Documentation of Mechanical Device: Intermittent pneumatic compression device Consult Discharge Plan - Plan Referrals: Wale Lam DO [Primary Care Provider] -
--- NOTE | 2017-11-24 16:18 | Internal Med Progress Note ---
Hospitalist Progress Note - Encounter Date of Encounter: 11/24/17 Time of Encounter: 11:19 - Subjective Interval History: Patient was seen and examined bedside. Has occasional cough. Had a fever spike this morning. Denies difficulty breathing - Exam Vitals: Temp Pulse Resp BP Pulse Ox 99.2 F 65 16 131/66 97 11/24/17 15:34 11/24/17 15:34 11/24/17 15:34 11/24/17 15:34 11/24/17 15:34 Exam: Gen - Awake, alert, oriented x 3, no acute distress HEENT - NCAT, PERRLA, EOMI, hearing grossly intact, oropharynx benign CV - RRR, normal S1 and S2, no M/R/G, no BLE edema Resp - Normal WOB, CTAB, no W/R/R GI - Soft, NT/ND, no masses, normal bowel sounds, no HSP Skin - Warm, dry, no rashes/lesions/ulcers Psych - Normal mood and affect, no depression or anxiety. Nonverbal - Assessment and Plan (1) Acute kidney injury superimposed on chronic kidney disease Current Visit: Yes Status: Chronic Assessment and Plan: Acute kidney injury likely due to obstructive uropathy with b/l hydroureteronehrsis and is currently s/p cystoscopy and b/l tent placement. - Creatinine trending down. - Avoid nephrotoxic medications. - At the moment there is no indication for dialysis. Nephro following. - Continue IV fluids and daily BMP. (2) Hematuria Current Visit: Yes Status: Resolved Assessment and Plan: currently resolved- patient was admitted to the ICU with iatrogenic hematuria - her CT showed large amounts of hemorrhagic products within the bladder- she is s/p cystoscopy and b/l ureteral stent placement , no evidence for any obvious tumors - patient currently stable post operatively. H&H relatively stable - To maintain Elizondo until discharge per urology (3) Hydronephrosis Current Visit: No Status: Acute Assessment and Plan: See plan for hematuria. Urology following. (4) UTI (urinary tract infection) Current Visit: Yes Status: Acute Assessment and Plan: patient was admitted to the ICU because of sepsis and hypotension secondary to her UTI . - her UTI could be likely due to her bilateral hydroureteronephrosis and hematuria which has currently resolved. She is s/p cystoscopy and b/l stent placement - Urine cultures grew shonna albicans. - Continue cefepime in light of pending blood cultures. Previous blood cultures no growth to date. - Has candiduria is likely asymptomatic and no indication to treat. - However fiven fever spikes with some sputum and cough we will order chest x- ray and obtain an ID consult (5) Hypertension Current Visit: No Status: Chronic Assessment and Plan: - Pressure-controlled. - Continue as needed hydralazine (6) Type 2 diabetes mellitus Current Visit: No Status: Acute Assessment and Plan: Continue basal and sliding scale insulin coverage. Patient has generally poor intake. Closely monitor glucose level and adjust insulin dose accordingly (7) Chronic systolic heart failure Current Visit: No Status: Acute Assessment and Plan: Patient has PPM and AICD. Appears euvolemic at this point. Continue metoprolol. - Temporarily hold losartan and Lasix at this point because of renal function. Closely monitor fluid status. (8) Debility Current Visit: No Status: Acute Assessment and Plan: Patient in need PTOT evaluation after stabilization (9) Acute encephalopathy Current Visit: Yes Status: Acute Assessment and Plan: currently resolved. Patient is in good mentation, A&O*3, conversing and responding to commands. -Will continue to monitor and plan for physical therapy evaluation for discharge planning possibly in 1 or 2 days (10) DVT prophylaxis Current Visit: No Status: Acute Assessment and Plan: EPCDs (11) Generalized weakness Current Visit: No Status: Acute Assessment and Plan: Needs significant assistance with PT likely need ECF placement on discharge. - Time Spent with Patient Total time spent is greater than 50% in coordination of care (as documented) at patient's floor/unit and/or counseling patient: Greater than 35 minutes Internal Medicine: Result - Labs CBC & Chem 7: 11/24/17 05:35 11/24/17 05:35 Labs: Short CBC 11/24/17 Range/Units 05:35 WBC 11.7 H (4.3-11.1) K/mcL Hgb 7.9 L (11.5-15.4) g/dL Hct 25.9 L (35.3-44.9) % Plt Count 240 (140-400) K/mcL Neutrophils # 8.6 (1.6-8.9) K/mcL BMP 11/24/17 05:35 Sodium 137 Potassium 3.9 Chloride 101 Carbon Dioxide 27 BUN 79 H Creatinine 2.91 H Glucose 103 Calcium 8.0 L - ABG Interpretation ABG results: ABG ABG pH 7.41 pH Units (7.32-7.45) 11/17/17 15:41 ABG pCO2 27 mmHg (35-45) L 11/17/17 15:41 ABG pO2 80 mmHg (85-104) L 11/17/17 15:41 ABG O2 Saturation 96 % (95-98) 11/17/17 15:41 PT/INR, D-dimer PT 17.1 Seconds (9.4-12.1) H 11/18/17 03:29 - VTE Documentation of Mechanical Device: Intermittent pneumatic compression device Consult Discharge Plan - Plan Referrals: Wale Lam DO [Primary Care Provider] - (2) Hematuria Qualifiers: Hematuria type: gross Qualified Code(s): R31.0 - Gross hematuria (3) Hydronephrosis Qualifiers: Hydronephrosis type: unspecified Qualified Code(s): N13.30 - Unspecified hydronephrosis (4) UTI (urinary tract infection) Qualifiers: Urinary tract infection type: site unspecified Hematuria presence: with hematuria Qualified Code(s): N39.0 - Urinary tract infection, site not specified; R31.9 - Hematuria, unspecified (5) Hypertension Qualifiers: Hypertension type: essential hypertension Qualified Code(s): I10 - Essential (primary) hypertension (6) Type 2 diabetes mellitus Qualifiers: Diabetes mellitus penitentiary insulin use: with penitentiary use Diabetes mellitus complication status: with kidney complications Diabetes mellitus complication detail: with chronic kidney disease Chronic kidney disease stage: stage 4 (severe) Qualified Code(s): E11.22 - Type 2 diabetes mellitus with diabetic chronic kidney disease; N18.4 - Chronic kidney disease, stage 4 (severe ); 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
[2017-11-24] MEDS: Insulin DETEMIR 100 UNIT/ML X5UNITS SQ SCH (20:30)
[2017-11-25] MEDS: Sodium Bicarbonate 75 MEQ in 0.45 % Sodium Chloride 1,000 ML IVC SCH ×2 (02:22→22:55)
[2017-11-25 05:33] LABS: Basophils % 0.1 %; Eosinophils # 0.4 K/mcL (0.0-0.6); Eosinophils % 2.7 %; Immature Granulocytes % 0.9 % (0-4); Lymphocytes % 6.5 %; Magnesium 1.9 mg/dL (1.6-2.6); Mean Corpuscular HGB Conc 30.8 g/dL (31.6-35.5); Mean Corpuscular Hemoglobin 28.1 pg (28.0-33.3); Mean Corpuscular Volume 91.2 fL (83.0-100.0); Mean Platelet Volume 10.6 fL (9.4-12.4); Monocytes # 1.1 K/mcL (0.0-1.3); Monocytes % 7.5 %; Neutrophils # 12.1 K/mcL (1.6-8.9); Phosphorous 3.9 mg/dL (2.7-4.5); Platelet Count 263 K/mcL (140-400); Potassium 4.2 mEq/L (3.5-5.1); Red Blood Count 2.85 M/mcL (3.82-4.97); Red Cell Distribution Width 14.9 % (11.5-14.5); Segmented Neutrophils % 82.3 %
[2017-11-25 05:35] LABS: % Iron Saturation 7 % (15-50); Iron 13 mcg/dL (50-170); Transferrin 141 mg/dL (203-362)
[2017-11-25 06:00] LABS: Vitamin B12 717 pg/mL (250-1100)
[2017-11-25 06:03] LABS: Folate > 22.3 ng/mL (3.0-16.0)
[2017-11-25 07:30] LABS: Vancomycin,Random 20 mcg/mL
--- NOTE | 2017-11-25 08:30 | Infectious Disease Consult ---
Date of Encounter: 11/25/17 Time of Encounter: 08:28 Assessment and Plan (1) Sepsis Status: Acute Assessment and plan: The patient originally came in with severe sepsis and progressed to septic shock , which resolved. She continues to have fevers and worsening leukocytosis. Tachycardia has resolved. The source of her persistent fevers is unclear. She has been on Cefepime since surgery on 11/18/17. She doesn't really participate in the exam and it's unclear if she doesn't want to or physically cannot participate. Her fevers seem to have improved since Vanc was started yesterday. Blood cultures drawn 11/17/17 were negative. Additional blood cultures drawn 11/22/17 are NGTD x 2 sets. Urine culture obtained on admission grew C. albicans and repeat urine culture is positive for yeast as well. CXR showed possible RLL PNA. Recommend CT of the abdomen and pelvis without contrast. Recommend CT of the chest without contrast to evaluate for pneumonia. She does grimmace with palpation of the abdomen. Check LFTs, amylase, and lipase. Check ESR, CRP, and procalcitonin. Repeat blood cultures x 2 sets now and if the patient continues to spike fevers >100.4. Continue Vancomycin IV. Pharmacy to dose. Goal trough ~15. Continue Cefepime 2 grams IV Q24H. Duration of treatment depends on the clinical picture. Monitor renal function and for drug toxicity and dose-adjust antibiotics. Qualifiers: Sepsis type: sepsis due to unspecified organism Qualified Code(s): A41.9 - Sepsis, unspecified organism (2) Pneumonia Status: Suspected Assessment and plan: CXR completed 11/24/17 showed RLL PNA vs. atelectasis. Not sure if the patient is having symptoms as she does not answer ROS questions. Get CT of the chest without contrast to evaluate. Consider checking S. pneumo and Legionella UAT. Check procalcitonin. Check RIP. Continue antibiotics as above for now. Qualifiers: Pneumonia type: due to unspecified organism Laterality: right Lung location: lower lobe of lung Qualified Code(s): J18.1 - Lobar pneumonia, unspecified organism (3) UTI (urinary tract infection) Status: Acute Assessment and plan: Causative organism unclear. Urine culture on admission positive for C. albicans as well as repeat culture is positive for Yeast species. Likely secondary to retained urine. CT of the abdomen and pelvis showed hemorrhage of the bladder and bilateral hydroureteronephrosis. Urology consulted. Status post cystoscopy with bilateral ureteral stent placement 11/18/17. Operative note reviewed. Purulent fluid drained from the right ureter, but no cultures were obtained. Not convinced that this is the source of the patient's fevers, but since she has bilateral ureteral stents, will start Fluconazole 200mg IV x 1 dose now and 100mg IV daily. Dose-adjusted for CrCl ~13. Check baseline LFTs. Qualifiers: Urinary tract infection type: site unspecified Hematuria presence: with hematuria Qualified Code(s): N39.0 - Urinary tract infection, site not specified; R31.9 - Hematuria, unspecified (4) Hematuria Status: Acute Assessment and plan: Etiology unclear. Status post cystoscopy with evacuation of the clot 11/18/17 by Urology. Operative note reviewed. Large clot noted with friable bladder wall. Resolved. Management per the urology team. Qualifiers: Hematuria type: gross Qualified Code(s): R31.0 - Gross hematuria (5) Acute encephalopathy Status: Acute Assessment and plan: Etiology unclear. Sepsis vs. other. Appears to be able to communicate, but chooses not to. Consider CT of the head to evaluate. No nuchal rigidity or meningismus to indicate STAFF SCIENTIST infection. Continue to monitor closely. (6) Acute kidney injury superimposed on chronic kidney disease Status: Resolved Assessment and plan: Serum creatinine 5.43 on admission. Likely pre-renal: poor PO intake, hypotension, sepsis. Improved. Nephrology consulted and following. Continue to trend. Dose-adjust antibiotics. Avoid nephrotoxins as able. Will need to dose Vancomycin carefully. Will ask pharmacy to assist. (7) Bilateral hydronephrosis Status: Acute Assessment and plan: Etiology unclear. No evidence of obstructing stone. CT of the abdomen and pelvis 11/17/17 showed bilateral hydroureteronephrosis and hemorrhage of the bladder. Urology consulted. Status post cystoscopy with bilateral ureteral stent placement 11/18/17. (8) Septic shock Status: Resolved (9) Anemia Status: Acute Assessment and plan: Hgb stable around 8. Further workup and management per the primary team. Qualifiers: Anemia type: unspecified type Qualified Code(s): D64.9 - Anemia, unspecified (10) Hyperkalemia Status: Resolved Assessment and plan: Likely secondary to TENISHA. Resolved. (11) Metabolic acidosis Status: Resolved (12) Cardiomyopathy Status: Chronic Qualifiers: Cardiomyopathy type: ischemic Qualified Code(s): I25.5 - Ischemic cardiomyopathy (13) Diabetes mellitus Status: Chronic Qualifiers: Diabetes mellitus type: type 2 Diabetes mellitus termite treater insulin use: with termite treater use Diabetes mellitus complication status: with circulatory complication Diabetes mellitus complication detail: with other circulatory complications Qualified Code(s): E11.59 - Type 2 diabetes mellitus with other circulatory complications; Z79.4 - superintendent container terminal (current) use of insulin (14) Biventricular ICD (implantable cardioverter-defibrillator) in place Status: Chronic (15) Morbid obesity with BMI of 40.0-44.9, adult Status: Chronic (16) Chronic stasis dermatitis Status: Acute Assessment and plan: Location: Bilateral LE. Clinically does not appear cellulitis. Continue to monitor. (17) Chronic systolic heart failure Status: Acute Infectious Disease HPI - Data of Consult Patient: new to practice Consult date: 11/25/17 Requesting Physician: Karen Foss MD Primary Care Provider: Wale Lam DO - Consult Narrative Reason for consult: Fever History of present illness: Ms. Bentley is a 71 year old female past medical history of cardiomyopathy status post pacer/AICD, CHF, CAD, CVA, diabetes, chronic kidney disease, PAD, and VT. The patient was admitted to the hospital November 17 for acute kidney injury, hematuria, sepsis, and UTI. We are consulted November 25 for further recommendations for persistent fever. Angel, the patient's 71-year-old female with past medical history as stated above. Patient presented to the emergency department on the day of admission with complaints of possible vaginal bleeding and back pain. Upon arrival to the ER, the patient was tachycardic, but was otherwise hemodynamically stable. She did have leukocytosis with 74% bands. She was also noted to have acute kidney injury and lactic acidosis. She underwent a CT of the abdomen and pelvis that showed findings consistent with hemorrhage in the bladder, bilateral hydroureteronephrosis that had increased since a previous CT scan. She had urinalysis that was positive for nitrites and small amount leukocyte esterase, but the culture only grew out Yolanda albicans. Blood cultures obtained 2 sets that were negative. Due to her allergies listed, she was given a dose of IV Levaquin and admitted to the hospital for further evaluation. Since admission, the patient has had a prolonged hospital course complicated by septic shock requiring vasopressors and transferred to the intensive care unit. Neurology was consult to assist with her acute kidney injury. Urology was consulted to assist with her hydroureteronephrosis. On November 18, she underwent a cystoscopy with clot evacuation and bilateral ureteral stent placement. Review of the operative note indicates that there is purulent fluid drained from the right ureter, but no cultures were obtained. Postoperatively, the patient was started on IV cefepime. Since surgery, the patient improved clinically based on the documentation, however, she began spiking fevers on November 22 with a MAXIMUM TEMPERATURE of 1011 at that time. A repeat set of blood cultures were obtained and are no growth. A repeat urine culture was obtained that only is growing yeast. She had a chest x-ray on November 24 that showed a right lower lobe pneumonia versus atelectasis. Vancomycin was added to her antibiotic regimen yesterday. Today, her white blood cell count is 14, 000 with neutrophilic predominance. Her acute kidney injury continues to improve. We have been asked to evaluate and make further recommendations. During my exam today, the patient really does not participate in the exam. She does shake her head yes and no to my questions, and follows some commands. It is unclear as to whether or not she just does not want to participate in exam or if she does not understand my questions. She denies pain at this time, but grimaces with palpation of her abdomen. She denies any shortness of breath. No other review of systems information available. Per nursing, the patient has been like this since being here in the hospital, but is normally very talkative and able to verbalize and communicate. CC: Karen Foss MD Past Med Surg Social Fam HX - Past Medical History Source: old records reviewed, nursing notes reviewed Medical history: cardiomyopathy, CHF, coronary artery disease, CVA, diabetes, GERD, hyperlipidemia, hypertension, kidney stones, myocardial infarction, peripheral artery disease, renal disease, TIA Additional medical history: renal insufficiency, blood thinner Psychiatric history: depression - Past Surgical History Surgical History: appendectomy, breast surgery, carotid endarterectomy, cholecystectomy, coronary bypass (CABG), hysterectomy, pacemaker/AICD, LE vascular intervention Additional surgical history: cyst removed in left breast, left chest pacer/AICD - Social History Smoking Status: Former smoker Smokeless Tobacco Status: No Alcohol use: none Drug use: none - Family History Mother Living Status: Hx Family Cardiac Disorders: Yes (HTN) Hx Family Endocrine Disorder: Yes (diabetes) Hx Family Neurologic Disorders: Yes (2 strokes) Father Living Status: Hx Family Cardiac Disorders: Yes Hx Family Respiratory Disorders: Yes Hx Family Neurologic Disorders: Yes Infectious Disease-CN:Meds Aspirin Enteric Coated [Aspirin EC] 81 mg PO DAILY 08/20/15 [History] Metoprolol XL (24 HR) Succ [Toprol Xl] 50 mg PO DAILY #30 tab.er.24h 01/07/16 [ Rx] Insulin Glargine,Hum.rec.anlog [Toujeo Solostar] 45 units SQ HS 06/10/16 [ History] Multivit-Minerals/Folic/Ginkgo [One Daily For Women 50+ Adv Tb] 1 tab PO DAILY 06/10/16 [History] Furosemide [Lasix] 40 mg PO QAM 10/03/16 [History] Insulin ASPART [Novolog Flexpen] 25 unit SQ TIDWM 10/03/16 [History] Losartan Potassium [Cozaar] 50 mg PO DAILY 10/03/16 [History] Clopidogrel [Plavix] 75 mg PO DAILY 11/03/17 [History] Oxybutynin Chloride [Ditropan Xl] 10 mg PO DAILY 11/03/17 [History] Rosuvastatin Calcium [Rosuvastatin Calcium] 10 mg PO HS 11/03/17 [History] Ascorbic Acid [Vitamin C] 500 mg PO BID 11/17/17 [History] Ergocalciferol (VITAMIN D2) [Vitamin D2] 50,000 unit PO QWEEK 11/17/17 [History] Furosemide [Lasix] 20 mg PO QPM 11/17/17 [History] 3 Allergy/AdvReac Type Severity Reaction Status Date / Time venom-honey bee Allergy Severe Swelling Verified 11/03/17 10:53 [bee venom (honey bee)] of Lip/Tongue/Throat Cortisone Allergy Mild Hives Verified 11/03/17 10:53 Penicillins Allergy See Verified 11/03/17 10:53 Comments NSAIDS (Non-Steroidal AdvReac Mild UPSET Verified 11/03/17 10:53 Anti-Inflamma STOMACH cefazolin [From Ancef] AdvReac Hives Verified 11/03/17 10:53 Tsvsegd-Pis-Pji Reductase AdvReac Muscle Pain Verified 11/03/17 10:53 Inhibitor [Statins] GRAPE FLAVOR Allergy Mild Swelling Uncoded 11/03/17 10:53 of the Eye ROS unobtainable: due to mental status Exam - Constitutional Vitals: Temp Pulse Resp BP Pulse Ox 99.8 F H 61 20 127/67 97 11/25/17 07:25 11/25/17 07:25 11/25/17 07:25 11/25/17 07:25 11/25/17 07:25 General appearance: morbidly obese, no acute distress, no febrile - Head Head exam: Present: atraumatic, normal inspection, normocephalic - Eye Eye exam: Present: EOMI, normal appearance, PERRL Pupils: Present: normal accommodation - ENT ENT exam: Present: mucous membranes moist - Neck Neck exam: Present: normal inspection - Respiratory Respiratory exam: Present: CTAB. Absent: rales, respiratory distress, rhonchi, wheezes - Cardiovascular Cardiovascular exam: Present: irregular rhythm. Absent: tachycardia - GI/Abdominal GI/Abdominal exam: Present: distended (Obese), normal bowel sounds, soft, tenderness (Grimaces with palpation of the entire abdomen.) Additional comments: Elizondo catheter noted to be draining cloudy yellow urine. No obvious blood noted. - Extremities Exam Extremities exam: Present: pedal edema (Trace bilateral lower extremities). Absent: normal inspection (Venous stasis dermatitis noted to the bilateral lower extremities.), tenderness Additional comments: Scabbed lesion noted to the right foot third toenail bed. It appears the toenails been pulled off. - Neurological Exam Neurological exam: Present: alert, oriented X3, no focal deficits - Psychiatric Psychiatric exam: Present: normal affect, normal mood - Skin Skin exam: Present: dry, intact, normal color, warm Infectious Disease CN: Results - Labs CBC & Chem 7: 11/29/17 09:53 11/29/17 08:59 Cultures: Cultures 11/22/17 10:20 Urine Culture - Preliminary Urine,Catheterized Yeast Species 11/22/17 11:02 Blood Culture - Preliminary Peripheral Venipuncture Culture is incubating and being continuously monitored for growth. Final report to follow. 11/22/17 11:02 Blood Culture - Preliminary Peripheral Venipuncture Culture is incubating and being continuously monitored for growth. Final report to follow. Serology: Serology 11/21/17 11/18/17 11/18/17 Range/Units 12:26 11:54 11:54 Ur Eosinophil Smear 0 (None Seen) % Urine Creatinine 56 mg/dL Urine Sodium 55.9 mEq/L Hep Bs Antigen Nonreactive (Nonreactive) Hep Bs Antibody 0.00 mIU/mL - VTE Documentation of Mechanical Device: Intermittent pneumatic compression device Consult Discharge Plan - Plan Referrals: Wale Lam DO [Primary Care Provider] -
[2017-11-25] MEDS: Insulin LISPRO 300 UNITS/3 ML VIAL SQ SCH ×4 (09:05→22:55)
--- NOTE | 2017-11-25 09:30 | Nephrology Progress Note ---
Date of Encounter: 11/25/17 Time of Encounter: 10:00 - Assessment and Plan (1) Acute kidney injury superimposed on chronic kidney disease Current Visit: Yes Status: Chronic Secondary to obstruction. Improved with ureteral stents and plunkett placement followed by urology. Given current condition along with good UOP, no acute indication for [facility] [employer] at this time Continue to avoid nephrotoxins if possible. Strick I/Os. Patient should follow-up closely with outpatient nephrology when she is discharged. Patient with shonna albicans in urine. Currently performing echocardiogram. ID has been consulted. (2) Anemia Current Visit: No Status: Acute Patient presented with hematuria secondary to obstruction. Anemia work up demonstrates iron deficiency anemia. I recommended iron supplement as appropriate. Start Ferrous sulfate 325mg PO daily. Hb stable: 8.0/7.9/8.1 Qualifiers: Anemia type: unspecified type Qualified Code(s): D64.9 - Anemia, unspecified (3) Bilateral hydronephrosis Current Visit: Yes Status: Acute s/p stents bilateral, urology on board (4) Severe sepsis Current Visit: Yes Status: Acute Patient with shonna in urine. ID consult pending. (5) Metabolic acidosis Current Visit: Yes Status: Acute Resolved. (6) CKD (chronic kidney disease) stage 4, GFR 15-29 ml/min Current Visit: Yes Status: Acute Baseline GFR in the 20s this year so far. Gradually returning to baseline. Subjective Principal diagnosis: Hematuria, septic shock Interval history: Patient at Echo, subjective limited. Per nurse, patient now has DVT. I spoke with Dr. Foss, hospitalist, who is considering cardiovascular consult. Objective - Vital Signs Vital signs: Vital Signs Temp Pulse Resp BP Pulse Ox 11/25/17 07:25 99.8 F H 61 20 127/67 97 11/25/17 05:18 98.9 F 64 16 120/62 96 11/25/17 00:11 98.9 F 62 16 130/68 98 11/24/17 19:33 98.8 F 60 16 129/78 99 11/24/17 15:34 99.2 F 65 16 131/66 97 11/24/17 11:55 97.9 F 61 16 128/61 95 Intake and Output 11/24/17 11/25/17 11/25/17 23:59 07:59 15:59 Intake Total 60 / 60 1075 / 1075 Output Total 1050 / 1050 Balance 60 / 60 25 / 25 Intake: IV Fluids 1075 / 1075 Sodium Bicarbonate 75 MEQ In 0. 1075 / 1075 45% Sodium Chloride 1000 Ml 1000 Ml 1,000 ML @ 60 mls/hr IVC .[id number] [facility] Rx#:[id number] Oral 60 / 60 Output: Catheter 1050 / 1050 Other: Meal Dinner Percent of Meal Consumed 0% Weight 102.6 kg Blood Glucose* 166 165 Patient Weight 11/25/17 23:59 Weight 102.6 kg - General Appearance Exam: Patient is at Echo. - Lab 11/25/17 04:00 11/25/17 04:00 Most recent lab results ABG pH 7.41 pH Units (7.32-7.45) 11/17/17 15:41 ABG pCO2 27 mmHg (35-45) L 11/17/17 15:41 ABG pO2 80 mmHg (85-104) L 11/17/17 15:41 ABG HCO3 17 mEq/L (21-27) L 11/17/17 15:41 ABG O2 Saturation 96 % (95-98) 11/17/17 15:41 Calcium 8.0 mg/dL (8.6-10.3) L 11/25/17 04:00 Phosphorus 3.9 mg/dL (2.7-4.5) 11/25/17 04:00 Magnesium 1.9 mg/dL (1.6-2.6) 11/25/17 04:00 Urine Creatinine 56 mg/dL 11/18/17 11:54 Urine Sodium 55.9 mEq/L 11/18/17 11:54 - VTE Documentation of Mechanical Device: Intermittent pneumatic compression device Consult Discharge Plan - Plan Referrals: Wale Lam DO [Primary Care Provider] -
[2017-11-25] MEDS: Cefepime HCl 2,000 MG in Water for inj. (sterile) 20 ML 20 ML IVP SCH (09:36)
[2017-11-25] MEDS: Multivit/Ca/Min/Fe/FA 1 TAB TABLET PO SCH (09:37)
[2017-11-25] MEDS: Ascorbic Acid 500 MG TABLET PO SCH ×2 (09:37→22:56)
[2017-11-25] MEDS: Aspirin Enteric Coated 81 MG Tablet PO SCH (09:37)
[2017-11-25] MEDS: Miconazole 2% ointment 114 GM TUBE TP SCH (09:37)
[2017-11-25] MEDS: Metoprolol XL (24 HR) Succ 50 MG TAB.ER.24H PO SCH (09:37)
--- NOTE | 2017-11-25 10:14 | Infectious Disease Consult ---
Date of Encounter: 11/25/17 Time of Encounter: 10:13 Infectious Disease HPI - Data of Consult Patient: new to practice Requesting Physician: Karen Foss MD Primary Care Provider: Wale Lam DO - Consult Narrative History of present illness: Ms. Bentley is a 71 year old female CC: Karen Foss MD Past Med Surg Social Fam HX - Past Medical History Medical history: cardiomyopathy, CHF, coronary artery disease, CVA, diabetes, GERD, hyperlipidemia, hypertension, kidney stones, myocardial infarction, peripheral artery disease, renal disease, TIA Additional medical history: renal insufficiency, blood thinner Psychiatric history: depression - Past Surgical History Surgical History: appendectomy, breast surgery, carotid endarterectomy, cholecystectomy, coronary bypass (CABG), hysterectomy, pacemaker/AICD, LE vascular intervention Additional surgical history: cyst removed in left breast, left chest pacer/AICD - Social History Smoking Status: Former smoker Smokeless Tobacco Status: No Alcohol use: none Drug use: none - Family History Mother Living Status: Hx Family Cardiac Disorders: Yes (HTN) Hx Family Endocrine Disorder: Yes (diabetes) Hx Family Neurologic Disorders: Yes (2 strokes) Father Living Status: Hx Family Cardiac Disorders: Yes Hx Family Respiratory Disorders: Yes Hx Family Neurologic Disorders: Yes Infectious Disease-CN:Meds Aspirin Enteric Coated [Aspirin EC] 81 mg PO DAILY 08/20/15 [History] Metoprolol XL (24 HR) Succ [Toprol Xl] 50 mg PO DAILY #30 tab.er.24h 01/07/16 [ Rx] Insulin Glargine,Hum.rec.anlog [Toujeo Solostar] 45 units SQ HS 06/10/16 [ History] Multivit-Minerals/Folic/Ginkgo [One Daily For Women 50+ Adv Tb] 1 tab PO DAILY 06/10/16 [History] Furosemide [Lasix] 40 mg PO QAM 10/03/16 [History] Insulin ASPART [Novolog Flexpen] 25 unit SQ TIDWM 10/03/16 [History] Losartan Potassium [Cozaar] 50 mg PO DAILY 10/03/16 [History] Clopidogrel [Plavix] 75 mg PO DAILY 11/03/17 [History] Oxybutynin Chloride [Ditropan Xl] 10 mg PO DAILY 11/03/17 [History] Rosuvastatin Calcium [Rosuvastatin Calcium] 10 mg PO HS 11/03/17 [History] Ascorbic Acid [Vitamin C] 500 mg PO BID 11/17/17 [History] Ergocalciferol (VITAMIN D2) [Vitamin D2] 50,000 unit PO QWEEK 11/17/17 [History] Furosemide [Lasix] 20 mg PO QPM 11/17/17 [History] 3 Allergy/AdvReac Type Severity Reaction Status Date / Time venom-honey bee Allergy Severe Swelling Verified 11/03/17 10:53 [bee venom (honey bee)] of Lip/Tongue/Throat Cortisone Allergy Mild Hives Verified 11/03/17 10:53 Penicillins Allergy See Verified 11/03/17 10:53 Comments NSAIDS (Non-Steroidal AdvReac Mild UPSET Verified 11/03/17 10:53 Anti-Inflamma STOMACH cefazolin [From Ancef] AdvReac Hives Verified 11/03/17 10:53 Dvjkgbh-Arz-Yzj Reductase AdvReac Muscle Pain Verified 11/03/17 10:53 Inhibitor [Statins] GRAPE FLAVOR Allergy Mild Swelling Uncoded 11/03/17 10:53 of the Eye Exam - Constitutional Vitals: Temp Pulse Resp BP Pulse Ox 99.8 F H 61 20 127/67 97 11/25/17 07:25 11/25/17 07:25 11/25/17 07:25 11/25/17 07:25 11/25/17 07:25 Infectious Disease CN: Results - Labs CBC & Chem 7: 11/25/17 04:00 11/25/17 04:00 Cultures: Cultures 11/22/17 10:20 Urine Culture - Preliminary Urine,Catheterized Yeast Species 11/22/17 11:02 Blood Culture - Preliminary Peripheral Venipuncture Culture is incubating and being continuously monitored for growth. Final report to follow. 11/22/17 11:02 Blood Culture - Preliminary Peripheral Venipuncture Culture is incubating and being continuously monitored for growth. Final report to follow. Serology: Serology 11/21/17 11/18/17 11/18/17 Range/Units 12:26 11:54 11:54 Ur Eosinophil Smear 0 (None Seen) % Urine Creatinine 56 mg/dL Urine Sodium 55.9 mEq/L Hep Bs Antigen Nonreactive (Nonreactive) Hep Bs Antibody 0.00 mIU/mL - VTE Documentation of Mechanical Device: Intermittent pneumatic compression device Consult Discharge Plan - Plan Referrals: Wale Lam DO [Primary Care Provider] -
--- NOTE | 2017-11-25 10:44 | Internal Med Progress Note ---
Hospitalist Progress Note - Encounter Date of Encounter: 11/25/17 Time of Encounter: 10:32 - Subjective Interval History: - Patient was seen and examined bedside. Complains of some pain on her Lt leg which she denied yesterday. Had fever spike this morning. Denies difficulty breathing - Exam Vitals: Temp Pulse Resp BP Pulse Ox 99.8 F H 61 20 127/67 97 11/25/17 07:25 11/25/17 07:25 11/25/17 07:25 11/25/17 07:25 11/25/17 07:25 Exam: Gen - Awake, alert, oriented x 3, no acute distress HEENT - NCAT, PERRLA, EOMI, hearing grossly intact, oropharynx benign CV - RRR, normal S1 and S2, no M/R/G, no BLE edema Resp - Normal WOB, CTAB, no W/R/R GI - Soft, NT/ND, no masses, normal bowel sounds, no HSP Skin - Warm, dry, DTI on anterior chin on LT leg. Psych - Normal mood and affect, no depression or anxiety. Nonverbal - Assessment and Plan (1) Acute kidney injury superimposed on chronic kidney disease Current Visit: Yes Status: Chronic (2) Hematuria Current Visit: Yes Status: Resolved Assessment and Plan: currently resolved- patient was admitted to the ICU with iatrogenic hematuria - her CT showed large amounts of hemorrhagic products within the bladder- she is s/p cystoscopy and b/l ureteral stent placement , no evidence for any obvious tumors - patient currently stable post operatively. H&H relatively stable - To maintain Elizondo until discharge per urology (3) Hydronephrosis Current Visit: No Status: Acute Assessment and Plan: See plan for hematuria. Urology following. (4) UTI (urinary tract infection) Current Visit: Yes Status: Acute Assessment and Plan: patient was admitted to the ICU because of sepsis and hypotension secondary to her UTI . - her UTI could be likely due to her bilateral hydroureteronephrosis and hematuria which has currently resolved. She is s/p cystoscopy and b/l stent placement - Urine cultures grew shonna albicans. - Continue cefepime in light of pending blood cultures. Previous blood cultures no growth to date. - Has candiduria is likely asymptomatic and no indication to treat. - However fever spikes. ID following. Started on Vancomycin yesterday. - f/u CT chest and CT abdomen/pelvis for potential source. (5) Hypertension Current Visit: No Status: Chronic Assessment and Plan: - Pressure-controlled. - Continue as needed hydralazine (6) Type 2 diabetes mellitus Current Visit: No Status: Acute Assessment and Plan: Continue basal and sliding scale insulin coverage. - Patient has generally poor intake. - Closely monitor glucose level and adjust insulin dose accordingly. Currently well controlled (7) Chronic systolic heart failure Current Visit: No Status: Acute Assessment and Plan: Patient has PPM and AICD. Appears euvolemic at this point. Continue metoprolol. - Temporarily hold losartan and Lasix at this point because of renal function. Closely monitor fluid status. (8) Debility Current Visit: No Status: Acute Assessment and Plan: Patient in need PTOT evaluation after stabilization (9) Acute encephalopathy Current Visit: Yes Status: Acute Assessment and Plan: currently resolved. Patient is in good mentation, A&O*3, conversing and responding to commands. - However not at baseline to her previous admission. Will obtain CT brain. (10) DVT prophylaxis Current Visit: No Status: Acute Assessment and Plan: Started on AC (11) Generalized weakness Current Visit: No Status: Acute Assessment and Plan: Needs significant assistance with PT likely need ECF placement on discharge. (12) DVT (deep venous thrombosis) Current Visit: Yes Status: Acute Assessment and Plan: - has DVT in the left lower extremity - Vascular consultation was obtained in case IVC filter was needed if she was contraindicated for anticoagulation. After discussion with urology. Cardiovascular she reintroducing to cognition and monitor for any hematuria. - We will start her on heparin. - Time Spent with Patient Total time spent is greater than 50% in coordination of care (as documented) at patient's floor/unit and/or counseling patient: Internal Medicine: Result - Labs CBC & Chem 7: 11/25/17 04:00 11/25/17 04:00 Labs: Short CBC 11/25/17 Range/Units 04:00 WBC 14.7 H (4.3-11.1) K/mcL Hgb 8.0 L (11.5-15.4) g/dL Hct 26.0 L (35.3-44.9) % Plt Count 263 (140-400) K/mcL Neutrophils # 12.1 H (1.6-8.9) K/mcL BMP 11/25/17 04:00 Sodium 135 L Potassium 4.2 Chloride 100 Carbon Dioxide 25 BUN 76 H Creatinine 2.88 H Glucose 160 H Calcium 8.0 L - ABG Interpretation ABG results: ABG ABG pH 7.41 pH Units (7.32-7.45) 11/17/17 15:41 ABG pCO2 27 mmHg (35-45) L 11/17/17 15:41 ABG pO2 80 mmHg (85-104) L 11/17/17 15:41 ABG O2 Saturation 96 % (95-98) 11/17/17 15:41 PT/INR, D-dimer PT 17.1 Seconds (9.4-12.1) H 11/18/17 03:29 - Impressions Impressions Chest X-Ray 11/24/17 15:14 IMPRESSION: Limited portable chest x-ray as discussed. There is new right lower lobe atelectasis versus pneumonia. D/ / Maged Garcia MD / Maged Garcia MD Interpreting Provider: Maged Garcia MD - VTE Documentation of Mechanical Device: Intermittent pneumatic compression device Consult Discharge Plan - Plan Referrals: Wale Lam DO [Primary Care Provider] - (2) Hematuria Qualifiers: Hematuria type: gross Qualified Code(s): R31.0 - Gross hematuria (3) Hydronephrosis Qualifiers: Hydronephrosis type: unspecified Qualified Code(s): N13.30 - Unspecified hydronephrosis (4) UTI (urinary tract infection) Qualifiers: Urinary tract infection type: site unspecified Hematuria presence: with hematuria Qualified Code(s): N39.0 - Urinary tract infection, site not specified; R31.9 - Hematuria, unspecified (5) Hypertension Qualifiers: Hypertension type: essential hypertension Qualified Code(s): I10 - Essential (primary) hypertension (6) Type 2 diabetes mellitus Qualifiers: Diabetes mellitus inspector repairer sandstone insulin use: with usp use Diabetes mellitus complication status: with kidney complications Diabetes mellitus complication detail: with chronic kidney disease Chronic kidney disease stage: stage 4 (severe) Qualified Code(s): E11.22 - Type 2 diabetes mellitus with diabetic chronic kidney disease; N18.4 - Chronic kidney disease, stage 4 (severe ); Z79.4 - clothing manager (current) use of insulin (12) DVT (deep venous thrombosis) Qualifiers: DVT location: lower extremity Affected thrombotic vein of extremity: femoral Chronicity: acute Laterality: left Qualified Code(s): I82.412 - Acute embolism and thrombosis of left femoral vein
[2017-11-25 13:35] LABS: Albumin 2.5 g/dL (3.5-5.7); Albumin/Globulin Ratio 0.6 (1.1-2.2); Bilirubin,Direct 0.2 mg/dL (0.0-0.2); Bilirubin,Indirect 0.4 mg/dL (0.0-1.2); Bilirubin,Total 0.6 mg/dL (0.3-1.0); Globulin 3.9 g/dL (2.4-3.5); Total Protein 6.4 g/dL (6.4-8.9)
[2017-11-25] MEDS ORDERED: Fluconazole 200 MG/100 ML 200 MG/100 ML BAG IVPB ONE (14:29)
--- NOTE | 2017-11-25 15:56 | Vascular/Endovasc Consult Note ---
Date of Encounter: 11/25/17 Time of Encounter: 15:53 Assessment and Plan (1) DVT (deep venous thrombosis) Current Visit: Yes Status: Acute Assessment: Left lower extremity deep venous thrombosis in the face of hematuria and questionable ability to anticoagulate. Plan: At this point in time it is my understanding that Urology is reasonably comfortable with proceeding forward with anticoagulation on this individual. As long as she does not have complicating circumstances associated with that, the placement of an IVC filter is not necessary. If there is any complicating circumstances, and patient and/or family wish to avoid the potential for pulmonary embolism, placement of an IVC filter would be appropriate in the face of inability to anticoagulate. At the present time, we are not recommending the placement of an IVC filter. If her circumstances should change, please do not hesitate to contact us back in this regards. Thank you very much for the opportunity to participate in the care of this patient. Qualifiers: DVT location: lower extremity Affected thrombotic vein of extremity: femoral Chronicity: acute Laterality: left Qualified Code(s): I82.412 - Acute embolism and thrombosis of left femoral vein - History of Present Illness Consult date: 11/25/17 Consult reason: dvt History of present illness: Ms. Bentley is a 71 year old female who is being evaluated for deep venous thrombosis in the face of hematuria. Initially, prior to evaluation, Urology had been on the case, and the patient was held initially on anticoagulation because of that. Subsequently, a further evaluation has been rendered by Urology, and the use of anticoagulation has been approved. We will consult in regards to the potential placement of an IVC filter. Please see plan below for further discussion. Past Med Surg Social Fam HX - Past Medical History Medical history: cardiomyopathy, CHF, coronary artery disease, CVA, diabetes, GERD, hyperlipidemia, hypertension, kidney stones, myocardial infarction, peripheral artery disease, renal disease, TIA Additional medical history: renal insufficiency, blood thinner Psychiatric history: depression - Past Surgical History Surgical History: appendectomy, breast surgery, carotid endarterectomy, cholecystectomy, coronary bypass (CABG), hysterectomy, pacemaker/AICD, LE vascular intervention Additional surgical history: cyst removed in left breast, left chest pacer/AICD - Social History Smoking Status: Former smoker Smokeless Tobacco Status: No Alcohol use: none Drug use: none - Family History Mother Living Status: Hx Family Cardiac Disorders: Yes (HTN) Hx Family Endocrine Disorder: Yes (diabetes) Hx Family Neurologic Disorders: Yes (2 strokes) Father Living Status: Hx Family Cardiac Disorders: Yes Hx Family Respiratory Disorders: Yes Hx Family Neurologic Disorders: Yes Medications and Allergies Aspirin Enteric Coated [Aspirin EC] 81 mg PO DAILY 08/20/15 [History] Metoprolol XL (24 HR) Succ [Toprol Xl] 50 mg PO DAILY #30 tab.er.24h 01/07/16 [ Rx] Insulin Glargine,Hum.rec.anlog [Toujeo Solostar] 45 units SQ HS 06/10/16 [ History] Multivit-Minerals/Folic/Ginkgo [One Daily For Women 50+ Adv Tb] 1 tab PO DAILY 06/10/16 [History] Furosemide [Lasix] 40 mg PO QAM 10/03/16 [History] Insulin ASPART [Novolog Flexpen] 25 unit SQ TIDWM 10/03/16 [History] Losartan Potassium [Cozaar] 50 mg PO DAILY 10/03/16 [History] Clopidogrel [Plavix] 75 mg PO DAILY 11/03/17 [History] Oxybutynin Chloride [Ditropan Xl] 10 mg PO DAILY 11/03/17 [History] Rosuvastatin Calcium [Rosuvastatin Calcium] 10 mg PO HS 11/03/17 [History] Ascorbic Acid [Vitamin C] 500 mg PO BID 11/17/17 [History] Ergocalciferol (VITAMIN D2) [Vitamin D2] 50,000 unit PO QWEEK 11/17/17 [History] Furosemide [Lasix] 20 mg PO QPM 11/17/17 [History] 3 Allergy/AdvReac Type Severity Reaction Status Date / Time venom-honey bee Allergy Severe Swelling Verified 11/03/17 10:53 [bee venom (honey bee)] of Lip/Tongue/Throat Cortisone Allergy Mild Hives Verified 11/03/17 10:53 Penicillins Allergy See Verified 11/03/17 10:53 Comments NSAIDS (Non-Steroidal AdvReac Mild UPSET Verified 11/03/17 10:53 Anti-Inflamma STOMACH cefazolin [From Ancef] AdvReac Hives Verified 11/03/17 10:53 Vbyiawi-Gey-Pah Reductase AdvReac Muscle Pain Verified 11/03/17 10:53 Inhibitor [Statins] GRAPE FLAVOR Allergy Mild Swelling Uncoded 11/03/17 10:53 of the Eye All Systems Review: The remainder of the systems were reviewed and are negative Review of Systems: The review of systems is reviewed on the chart and is considered as essentially unchanged at 10 points. Since initially presenting, the patient has decreased in her mental status. That status is presently being further evaluated. Exam Exam: 71-year-old female in both acute and chronic distress. She is awake, minimally alert, partially coherent, and cooperative. She lies in bed she does indicate that she understands what we are saying, she does not engage in conversation interact well. HEENT examination grossly unremarkable. She is edentulous. Neck is mostly supple, large, and trachea is midline Heart is regular rate and rhythm Lungs are clear but diminished. Diminished effort is noted. Abdomen is soft without obvious masses Breasts genitalia examinations are deferred to her primary caregiver Extremities show all 4 extremities to be present with the exception of several toes on each foot. Patient has had previous toe amputation bilaterally. There are no ischemic areas noted at this time. The foot is warm and there is a pending Doppler ultrasound evaluation. Some mild erythema associated with the left lower extremity is noted. Patient is in a supine position, and really there is not significant difference in the legs noted at this point in time. Neurologic exam is really unable to be adequately evaluated. There is no obvious motor deficit noted. Consult Discharge Plan - Plan Referrals: Wale Lam DO [Primary Care Provider] -
[2017-11-25] MEDS ORDERED: *HR* Heparin 5,000 UNIT/ML VIAL IVP ONE (18:10)
[2017-11-25] MEDS ORDERED: *HR* Heparin 5,000 UNIT/ML VIAL IVP PRN ×2 (18:10)
[2017-11-25 18:46] LABS: Hematocrit 25.4 % (35.3-44.9); Hemoglobin 7.8 g/dL (11.5-15.4); Mean Corpuscular HGB Conc 30.7 g/dL (31.6-35.5); Mean Corpuscular Hemoglobin 27.6 pg (28.0-33.3); Mean Corpuscular Volume 89.8 fL (83.0-100.0); Platelet Count 274 K/mcL (140-400); Red Blood Count 2.83 M/mcL (3.82-4.97); Red Cell Distribution Width 15.1 % (11.5-14.5)
[2017-11-25 18:52] LABS: Heparin anti-factor XA UFH 0.06 IU/mL (0.30-0.70); INR 1.2
[2017-11-25] MEDS: Heparin 25,000 UNIT/500 ML D5W 25,000 UNIT/500 ML BAG IVC SCH (20:01)
[2017-11-25] MEDS: Insulin DETEMIR 100 UNIT/ML X5UNITS SQ SCH (22:55)
[2017-11-26] MEDS: *HR* Acetylcysteine 20% 600 MG/3 ML ORAL SYRINGE PO SCH ×3 (01:21→20:16)
[2017-11-26 02:58] LABS: Basophils % 0.2 %; Eosinophils # 0.3 K/mcL (0.0-0.6); Eosinophils % 2.4 %; Hematocrit 26.1 % (35.3-44.9); Immature Granulocytes % 0.8 % (0-4); Lymphocytes # 1.1 K/mcL (0.6-4.6); Lymphocytes % 8.8 %; Mean Corpuscular HGB Conc 30.7 g/dL (31.6-35.5); Mean Corpuscular Hemoglobin 28.2 pg (28.0-33.3); Mean Corpuscular Volume 91.9 fL (83.0-100.0); Mean Platelet Volume 10.4 fL (9.4-12.4); Monocytes % 7.5 %; Neutrophils # 10.3 K/mcL (1.6-8.9); Platelet Count 269 K/mcL (140-400); Red Blood Count 2.84 M/mcL (3.82-4.97); Red Cell Distribution Width 14.8 % (11.5-14.5); Segmented Neutrophils % 80.3 %
[2017-11-26 03:44] LABS: Calcium 8.2 mg/dL (8.6-10.3); Magnesium 1.9 mg/dL (1.6-2.6); Phosphorous 5.2 mg/dL (2.7-4.5); Potassium 4.3 mEq/L (3.5-5.1)
[2017-11-26] MEDS: Cefepime HCl 2,000 MG in Water for inj. (sterile) 20 ML 20 ML IVP SCH (09:05)
[2017-11-26] MEDS: Ascorbic Acid 500 MG TABLET PO SCH ×2 (09:07→20:16)
[2017-11-26] MEDS: Multivit/Ca/Min/Fe/FA 1 TAB TABLET PO SCH (09:07)
[2017-11-26] MEDS: Aspirin Enteric Coated 81 MG Tablet PO SCH (09:07)
[2017-11-26] MEDS: Metoprolol XL (24 HR) Succ 50 MG TAB.ER.24H PO SCH (09:08)
[2017-11-26] MEDS: Insulin LISPRO 300 UNITS/3 ML VIAL SQ SCH ×4 (09:09→20:20)
[2017-11-26] MEDS: Miconazole 2% ointment 114 GM TUBE TP SCH (09:09)
[2017-11-26] MEDS: Fluconazole 100 MG/50 ML 100 MG/50 ML BAG IVPB SCH (09:12)
--- NOTE | 2017-11-26 09:12 | Urology Progress Note ---
Date of Encounter: 11/26/17 Time of Encounter: 09:10 - Assessment and Plan (1) Hematuria Current Visit: Yes Status: Resolved Assessment and plan: 71-year-old woman with acute renal insufficiency, bilateral hydronephrosis, and indwelling catheter status post bilateral ureteral stent placement is seen in follow-up. I will place an order for continues bladder irrigation as needed. Currently, her urine is relatively clear. I think may be reasonable to monitor for now. Qualifiers: Hematuria type: gross Qualified Code(s): R31.0 - Gross hematuria Progress Note Narrative: Patient was started on heparin drip yesterday for a DVT. Catheter still in place. Urine is light pink with some mucus. Nurse reports that her urine was more bloody yesterday, but it seems more clear today. Objective Initial Vital Signs Temp Pulse Resp BP Pulse Ox 98.2 F 97 18 125/63 100 11/17/17 04:49 11/17/17 04:49 11/17/17 04:49 11/17/17 04:49 11/17/17 04:49 - General physical appearance Present: well developed, well nourished, no distress - Respiratory Present: normal respiratory effort - Abdomen Present: soft - Genitourinary Urine Appearance: Present: Cloudy (22-Persian 3-way catheter in place with cloudy , light pink-colored urine.) - Labs 11/26/17 02:36 11/26/17 02:36 Diabetes panel 11/25/17 11/26/17 Range/Units 12:15 02:36 Sodium 136 (136-145) mEq/L Potassium 4.3 (3.5-5.1) mEq/L Chloride 99 (98-107) mEq/L Carbon Dioxide 21 L (23-29) mEq/L BUN 71 H (8-23) mg/dL Creatinine 2.96 H (0.60-1.20) mg/dL Glucose 198 H (70-105) mg/dL Calcium 8.2 L (8.6-10.3) mg/dL AST 19 (13-39) Units/L ALT 10 (7-52) Units/L Alkaline Phosphatase 122 H (34-104) Units/L Albumin 2.5 L (3.5-5.7) g/dL Calcium panel 11/25/17 11/26/17 Range/Units 12:15 02:36 Calcium 8.2 L (8.6-10.3) mg/dL Phosphorus 5.2 H (2.7-4.5) mg/dL Albumin 2.5 L (3.5-5.7) g/dL Pituitary panel 11/26/17 Range/Units 02:36 Sodium 136 (136-145) mEq/L Potassium 4.3 (3.5-5.1) mEq/L Chloride 99 (98-107) mEq/L Carbon Dioxide 21 L (23-29) mEq/L BUN 71 H (8-23) mg/dL Creatinine 2.96 H (0.60-1.20) mg/dL Glucose 198 H (70-105) mg/dL Calcium 8.2 L (8.6-10.3) mg/dL Adrenal panel 11/25/17 11/26/17 Range/Units 12:15 02:36 Sodium 136 (136-145) mEq/L Potassium 4.3 (3.5-5.1) mEq/L Chloride 99 (98-107) mEq/L Carbon Dioxide 21 L (23-29) mEq/L BUN 71 H (8-23) mg/dL Creatinine 2.96 H (0.60-1.20) mg/dL Glucose 198 H (70-105) mg/dL Calcium 8.2 L (8.6-10.3) mg/dL Total Bilirubin 0.6 (0.3-1.0) mg/dL AST 19 (13-39) Units/L ALT 10 (7-52) Units/L Alkaline Phosphatase 122 H (34-104) Units/L Albumin 2.5 L (3.5-5.7) g/dL - VTE Documentation of Mechanical Device: Intermittent pneumatic compression device Consult Discharge Plan - Plan Referrals: Wale Lam DO [Primary Care Provider] -
--- NOTE | 2017-11-26 09:33 | Internal Med Progress Note ---
Hospitalist Progress Note - Encounter Date of Encounter: 11/26/17 Time of Encounter: 09:16 - Subjective Interval History: - Patient was seen and examined bedside. No fever overnight. Denies difficulty breathing - Exam Vitals: Temp Pulse Resp BP Pulse Ox 98.0 F 62 16 138/61 99 11/26/17 07:36 11/26/17 07:36 11/26/17 07:36 11/26/17 07:36 11/26/17 07:36 Exam: Gen - Awake, alert, oriented x 3, no acute distress HEENT - NCAT, PERRLA, EOMI, hearing grossly intact, oropharynx benign CV - RRR, normal S1 and S2, no M/R/G, no BLE edema Resp - Normal WOB, CTAB, no W/R/R GI - Soft, NT/ND, no masses, normal bowel sounds, no HSP Skin - Warm, dry, DTI on anterior chin on LT leg. Psych - Normal mood and affect, no depression or anxiety. Nonverbal - Assessment and Plan (1) Acute kidney injury superimposed on chronic kidney disease Current Visit: Yes Status: Chronic (2) Hematuria Current Visit: Yes Status: Resolved (3) Hydronephrosis Current Visit: No Status: Acute (4) UTI (urinary tract infection) Current Visit: Yes Status: Acute (5) Hypertension Current Visit: No Status: Chronic (6) Type 2 diabetes mellitus Current Visit: No Status: Acute (7) Chronic systolic heart failure Current Visit: No Status: Acute (8) Debility Current Visit: No Status: Acute (9) Acute encephalopathy Current Visit: Yes Status: Acute (10) DVT prophylaxis Current Visit: No Status: Acute (11) Generalized weakness Current Visit: No Status: Acute (12) DVT (deep venous thrombosis) Current Visit: Yes Status: Acute - Summary of Assessment and Plan Summary of Assessment and Plan: Acute kidney injury superimposed on chronic kidney disease - Now stable. s/p stent placement - c/w plunkett. Hematuria - currently resolved - patient was admitted to the ICU with iatrogenic hematuria - her CT showed large amounts of hemorrhagic products within the bladder- she is s/p cystoscopy and b/l ureteral stent placement , no evidence for any obvious tumors - patient currently stable post operatively. H&H relatively stable - To maintain Plunkett until discharge per urology Hydronephrosis - See plan for hematuria. Urology following. Urinary tract infection - patient was admitted to the ICU because of sepsis and hypotension secondary to her UTI . - her UTI could be likely due to her bilateral hydroureteronephrosis and hematuria which has currently resolved. She is s/p cystoscopy and b/l stent placement - Urine cultures grew shonna albicans x2. Has candiduria is likely asymptomatic and no indication to treat. - She had fever while on cefepime. Previous blood cultures no growth to date. - ID following for fever. Started on Vancomycin . - CT chest and CT abdomen/pelvis did not show any focus of infection. - fever possible from DVT. Hypertension - controlled. - Continue as needed hydralazine Type 2 diabetes mellitus - Continue basal and sliding scale insulin coverage. - Closely monitor glucose level and adjust insulin dose accordingly. Currently well controlled Chronic systolic heart failure - Patient has PPM and AICD. Appears euvolemic at this point. Continue metoprolol. - Temporarily hold losartan and Lasix at this point because of renal function. Closely monitor fluid status. Acute encephalopathy - currently resolved. However non-verbal without focal deficits.and not at baseline to her previous admission. - CT brain unremarkable. - Will consult neurology Deep venous thrombosis - has DVT in the left lower extremity - Vascular consultation was obtained in case IVC filter was needed if she was contraindicated for anticoagulation. After discussion with urology okay to c/w AC. - c/w heparin. Monitor for bleed in urine DVT prophylaxis - Started on AC - Time Spent with Patient Total time spent is greater than 50% in coordination of care (as documented) at patient's floor/unit and/or counseling patient: Internal Medicine: Result - Labs CBC & Chem 7: 11/26/17 02:36 11/26/17 02:36 Labs: Short CBC 11/25/17 11/26/17 Range/Units 18:26 02:36 WBC 14.8 H 12.9 H (4.3-11.1) K/mcL Hgb 7.8 L 8.0 L (11.5-15.4) g/dL Hct 25.4 L 26.1 L (35.3-44.9) % Plt Count 274 269 (140-400) K/mcL Neutrophils # 10.3 H (1.6-8.9) K/mcL BMP 11/26/17 02:36 Sodium 136 Potassium 4.3 Chloride 99 Carbon Dioxide 21 L BUN 71 H Creatinine 2.96 H Glucose 198 H Calcium 8.2 L Liver Function 11/25/17 Range/Units 12:15 Total Bilirubin 0.6 (0.3-1.0) mg/dL Direct Bilirubin 0.2 (0.0-0.2) mg/dL AST 19 (13-39) Units/L ALT 10 (7-52) Units/L Alkaline Phosphatase 122 H (34-104) Units/L Albumin 2.5 L (3.5-5.7) g/dL - ABG Interpretation ABG results: ABG ABG pH 7.41 pH Units (7.32-7.45) 11/17/17 15:41 ABG pCO2 27 mmHg (35-45) L 11/17/17 15:41 ABG pO2 80 mmHg (85-104) L 11/17/17 15:41 ABG O2 Saturation 96 % (95-98) 11/17/17 15:41 PT/INR, D-dimer PT 14.0 Seconds (9.4-12.1) H 11/25/17 18:26 - Impressions Impressions Abdomen/Pelvis CT 11/25/17 10:46 IMPRESSION: No acute process in the abdomen or pelvis. Status post placement of bilateral ureteral stents. The mixed attenuation material in the urinary bladder is no longer evident. Plunkett catheter remains in place. Small pleural effusions with bibasilar atelectasis. D/ / 11/25/2017 12:35:25 Griffin Peters MD / [email or web address] Interpreting Provider: Griffin Peters MD Chest CT 11/25/17 10:46 IMPRESSION: Mild bibasilar atelectasis and small bilateral pleural effusions. No convincing pneumonia is identified. Mild cardiomegaly with associated coronary artery disease. D/ / 11/25/2017 11:57:31 Adrien Patterson MD / [email or web address] Interpreting Provider: Adrien Patterson MD Head CT 08/24/18 11:33 IMPRESSION: No CT evidence for acute intracranial abnormality. D/ / Leno George / Leno George Interpreting Provider: Leno George - VTE Documentation of Mechanical Device: Intermittent pneumatic compression device Consult Discharge Plan - Plan Referrals: Wale Lam DO [Primary Care Provider] - (2) Hematuria Qualifiers: Hematuria type: gross Qualified Code(s): R31.0 - Gross hematuria (3) Hydronephrosis Qualifiers: Hydronephrosis type: unspecified Qualified Code(s): N13.30 - Unspecified hydronephrosis (4) UTI (urinary tract infection) Qualifiers: Urinary tract infection type: site unspecified Hematuria presence: with hematuria Qualified Code(s): N39.0 - Urinary tract infection, site not specified; R31.9 - Hematuria, unspecified (5) Hypertension Qualifiers: Hypertension type: essential hypertension Qualified Code(s): I10 - Essential (primary) hypertension (6) Type 2 diabetes mellitus Qualifiers: Diabetes mellitus fish trapper insulin use: with fish trapper use Diabetes mellitus complication status: with kidney complications Diabetes mellitus complication detail: with chronic kidney disease Chronic kidney disease stage: stage 4 (severe) Qualified Code(s): E11.22 - Type 2 diabetes mellitus with diabetic chronic kidney disease; N18.4 - Chronic kidney disease, stage 4 (severe ); Z79.4 - longterm (current) use of insulin (12) DVT (deep venous thrombosis) Qualifiers: DVT location: lower extremity Affected thrombotic vein of extremity: femoral Chronicity: acute Laterality: left Qualified Code(s): I82.412 - Acute embolism and thrombosis of left femoral vein
--- NOTE | 2017-11-26 10:28 | Vascular/[facility] Progress Note ---
Date of Encounter: 11/26/17 Time of Encounter: 10:25 - Assessment and plan (1) DVT (deep venous thrombosis) Current Visit: Yes Status: Acute Assessment: Left lower extremity deep venous thrombosis in the face of hematuria and questionable ability to anticoagulate. Plan: At this point in time it is my understanding that Urology is reasonably comfortable with proceeding forward with anticoagulation on this individual. As long as she does not have complicating circumstances associated with that, the placement of an IVC filter is not necessary. If there is any complicating circumstances, and patient and/or family wish to avoid the potential for pulmonary embolism, placement of an IVC filter would be appropriate in the face of inability to anticoagulate. At the present time, we are not recommending the placement of an IVC filter. If her circumstances should change, please do not hesitate to contact us back in this regards. Thank you very much for the opportunity to participate in the care of this patient. Qualifiers: DVT location: lower extremity Affected thrombotic vein of extremity: femoral Chronicity: acute Laterality: left Qualified Code(s): I82.412 - Acute embolism and thrombosis of left femoral vein Discussion with patient/family: No acute changes from the perspective of vascular surgery. We will remain available if her situation should change. If there is significant bleeding noted, placement of an IVC filter should be reconsidered at that point in time. At this point, we will only see this patient on a requested basis. Thank you very much for the opportunity to participate in the care of this patient. - Subjective Interval history: This 71-year-old female was seen in follow-up today. No new additional complaints are given at this time. It is noted that the patient is insinuating to be on a heparin drip. Vital Signs, Last 4 Hours Temp Pulse Resp BP Pulse Ox 11/26/17 07:36 98.0 F 62 16 138/61 99 Exam: 71-year-old female in no acute distress. She is awake, apparently alert, difficult to tell her level of coherence that she does not interact with me, and cooperative. Physical examination is unchanged from consultation from yesterday. Lower extremities are grossly unremarkable with the previous noted toe amputations but no new ischemic areas. No significant edema is noted, but the patient has apparently been in bed all night. Heparin drip, as noted above, is running. - VTE Documentation of Mechanical Device: Intermittent pneumatic compression device Results 11/26/17 02:36 11/26/17 02:36 Lab Results, Last 24 hours 11/25/17 11/25/17 11/25/17 12:15 18:26 18:26 WBC 14.8 H Hgb 7.8 L Hct 25.4 L Plt Count 274 INR 1.2 Sodium Potassium Chloride Carbon Dioxide BUN Creatinine Glucose Calcium Magnesium Total Bilirubin 0.6 AST 19 ALT 10 Alkaline Phosphatase 122 H Amylase 20 L Lipase 8 L 11/26/17 11/26/17 02:36 02:36 WBC 12.9 H Hgb 8.0 L Hct 26.1 L Plt Count 269 INR Sodium 136 Potassium 4.3 Chloride 99 Carbon Dioxide 21 L BUN 71 H Creatinine 2.96 H Glucose 198 H Calcium 8.2 L Magnesium 1.9 Total Bilirubin AST ALT Alkaline Phosphatase Amylase Lipase Consult Discharge Plan - Plan Referrals: Wale Lam DO [Primary Care Provider] -
--- NOTE | 2017-11-26 11:38 | Nephrology Progress Note ---
Date of Encounter: 11/26/17 Time of Encounter: 11:38 - Assessment and Plan (1) Acute kidney injury Current Visit: Yes Status: Acute Secondary to obstruction. Improved with ureteral stents and plunkett placement followed by urology. Given current condition along with good UOP, no acute indication for BULB INSPECTOR at this time Continue to avoid nephrotoxins if possible (2) Anemia Current Visit: No Status: Acute will monitor Qualifiers: Anemia type: unspecified type Qualified Code(s): D64.9 - Anemia, unspecified (3) Bilateral hydronephrosis Current Visit: Yes Status: Acute s/p stents bilateral, appreciate urology's help (4) Severe sepsis Current Visit: Yes Status: Acute Continue abx per primary team Resolved. (5) Metabolic acidosis Current Visit: Yes Status: Resolved Resolved. (6) CKD (chronic kidney disease) stage 4, GFR 15-29 ml/min Current Visit: Yes Status: Acute Baseline GFR in the 20s this year so far Subjective Principal diagnosis: Hematuria, septic shock Interval history: Patient seen and evaluated. She has no new complaints. Objective - Vital Signs Vital signs: Vital Signs Temp Pulse Resp BP Pulse Ox 11/26/17 11:06 98.3 F 62 16 148/80 99 11/26/17 07:36 98.0 F 62 16 138/61 99 11/26/17 05:07 98.0 F 60 18 144/74 98 11/26/17 00:10 98.2 F 64 18 146/72 93 11/25/17 18:48 98.5 F 69 18 136/75 99 11/25/17 17:26 98.9 F 65 16 144/75 98 Intake and Output 11/25/17 11/26/17 11/26/17 23:59 07:59 15:59 Intake Total 1075 / 1075 450 / 450 Output Total 650 / 650 650 / 650 Balance 425 / 425 -650 / -650 450 / 450 Intake: IV Fluids 1075 / 1075 450 / 450 Heparin 25,000 UNIT/500 ML D5W 450 / 450 25,000 unit In 500 ml @ 14 UNIT /KG/HR 28.728 mls/hr IVC . [id number] [facility] Rx#:[id number] Sodium Bicarbonate 75 MEQ In 0. 1075 / 1075 45% Sodium Chloride 1000 Ml 1000 Ml 1,000 ML @ 60 mls/hr IVC .[id number] [facility] Rx#:[id number] Oral 0 / 0 Output: Catheter 650 / 650 650 / 650 Other: Meal Dinner Breakfast Percent of Meal Consumed 0% 0% Weight 102 kg 103.3 kg Blood Glucose* 188 208 225 Patient Weight 11/26/17 23:59 Weight 103.3 kg - General Appearance General appearance: Present: well-developed, well-nourished EENT: Present: ATNC Psychiatric: Present: mood/affect appropriate - Lab 11/26/17 02:36 11/26/17 02:36 Most recent lab results ABG pH 7.41 pH Units (7.32-7.45) 11/17/17 15:41 ABG pCO2 27 mmHg (35-45) L 11/17/17 15:41 ABG pO2 80 mmHg (85-104) L 11/17/17 15:41 ABG HCO3 17 mEq/L (21-27) L 11/17/17 15:41 ABG O2 Saturation 96 % (95-98) 11/17/17 15:41 Calcium 8.2 mg/dL (8.6-10.3) L 11/26/17 02:36 Phosphorus 5.2 mg/dL (2.7-4.5) H 11/26/17 02:36 Magnesium 1.9 mg/dL (1.6-2.6) 11/26/17 02:36 Urine Creatinine 56 mg/dL 11/18/17 11:54 Urine Sodium 55.9 mEq/L 11/18/17 11:54 - VTE Documentation of Mechanical Device: Intermittent pneumatic compression device Consult Discharge Plan - Plan Referrals: Wale Lam DO [Primary Care Provider] -
[2017-11-26] MEDS: Heparin 25,000 UNIT/500 ML D5W 25,000 UNIT/500 ML BAG IVC SCH (13:27)
--- NOTE | 2017-11-26 13:36 | Neurology - Consult Note ---
Date of Encounter: 11/26/17 Time of Encounter: 13:25 Assessment and Plan (1) Metabolic encephalopathy Current Visit: Yes Status: Acute Patient appears encephalopathic this is likely multifactorial. She does have multiple ongoing medical issues that can contribute the her presentation. The mental status tend to fluctuate and certainly the patient is able to talk but she likely is not cooperative most of the time. I see no focal neurological deficits except that she has weakness in her legs, which likely is not central in etiology and she has asterixis which is consistent with her metabolic encephalopathy. She has no complaint of headaches and no neck pain and no nuchal rigidity, CALL CENTER ASSISTANT infection unlikely. She does have multiple risk factors for CVA but she could not get MRI due to AICD placement therefore at this time would recommend continuing medical and supportive care. She is already on Aspirin 81mg and plavix 75mg daily now and the regimen is adequate for treatment of TIA. She has known history of carotid artery disease. Due to ongoing medical conditions i would not recommend further testing in that regard and carotid artery duplex can be done as an outpatient as recommended by vascular surgery. History of Present Illness Chief complaint: altered mental status HPI: Ms. Bentley is a 71 year old female with PMH significant for history of CVA, diabetes, chronic kidney disease, coronary artery disease, AICD placement peripheral vascular disease and carotid artery stenosis who initially presented to the emergency room about 10 days ago with gross hematuria and lower abdominal pain. Patient was found to have renal failure, significant anemia, elevated WBC and has been treated medically. Neurology was consulted due to her having fluctuating mental status and this morning she was found to be nonverbal. It was reported that few days ago she was able to talk fluently. Further inquiry reveals that she has been having these fluctuating mental status since admission. She at times would talk few words and then she would look at you and not respond to further questions. This morning, when asked how she is feeling, she replied 'not too bad' and she made eye contact and then she stopped making any efforts like she is tired. She however, can still answer simple questions yes of no. She denies any headaches, or neck pain. She is certainly not having any nuchal rigidity. CT of head on 11/25/2017 reviewed. It showed no acute intracranial abnormality. Clinically, she is wide awake and alert and follows simple commands. SHe is able to wiggle her toes minimally upon verbal commands and her hand oyster washer are equally and she is able to hold her arms up equally. May have large amplitude asterixis. Past Med Surg Social Fam HX - Past Medical History Medical history: cardiomyopathy, CHF, coronary artery disease, CVA, diabetes, GERD, hyperlipidemia, hypertension, kidney stones, myocardial infarction, peripheral artery disease, renal disease, TIA Additional medical history: renal insufficiency, blood thinner Psychiatric history: depression - Past Surgical History Surgical History: appendectomy, breast surgery, carotid endarterectomy, cholecystectomy, coronary bypass (CABG), hysterectomy, pacemaker/AICD, LE vascular intervention Additional surgical history: cyst removed in left breast, left chest pacer/AICD - Social History Smoking Status: Former smoker Smokeless Tobacco Status: No Alcohol use: none Drug use: none - Family History Mother Living Status: Hx Family Cardiac Disorders: Yes (HTN) Hx Family Endocrine Disorder: Yes (diabetes) Hx Family Neurologic Disorders: Yes (2 strokes) Father Living Status: Hx Family Cardiac Disorders: Yes Hx Family Respiratory Disorders: Yes Hx Family Neurologic Disorders: Yes Medications and Allergies Aspirin Enteric Coated [Aspirin EC] 81 mg PO DAILY 08/20/15 [History] Metoprolol XL (24 HR) Succ [Toprol Xl] 50 mg PO DAILY #30 tab.er.24h 01/07/16 [ Rx] Insulin Glargine,Hum.rec.anlog [Toujeo Solostar] 45 units SQ HS 06/10/16 [ History] Multivit-Minerals/Folic/Ginkgo [One Daily For Women 50+ Adv Tb] 1 tab PO DAILY 06/10/16 [History] Furosemide [Lasix] 40 mg PO QAM 10/03/16 [History] Insulin ASPART [Novolog Flexpen] 25 unit SQ TIDWM 10/03/16 [History] Losartan Potassium [Cozaar] 50 mg PO DAILY 10/03/16 [History] Clopidogrel [Plavix] 75 mg PO DAILY 11/03/17 [History] Oxybutynin Chloride [Ditropan Xl] 10 mg PO DAILY 11/03/17 [History] Rosuvastatin Calcium [Rosuvastatin Calcium] 10 mg PO HS 11/03/17 [History] Ascorbic Acid [Vitamin C] 500 mg PO BID 11/17/17 [History] Ergocalciferol (VITAMIN D2) [Vitamin D2] 50,000 unit PO QWEEK 11/17/17 [History] Furosemide [Lasix] 20 mg PO QPM 11/17/17 [History] 3 Allergy/AdvReac Type Severity Reaction Status Date / Time venom-honey bee Allergy Severe Swelling Verified 11/03/17 10:53 [bee venom (honey bee)] of Lip/Tongue/Throat Cortisone Allergy Mild Hives Verified 11/03/17 10:53 Penicillins Allergy See Verified 11/03/17 10:53 Comments NSAIDS (Non-Steroidal AdvReac Mild UPSET Verified 11/03/17 10:53 Anti-Inflamma STOMACH cefazolin [From Ancef] AdvReac Hives Verified 11/03/17 10:53 Hpznoyv-Aif-Msn Reductase AdvReac Muscle Pain Verified 11/03/17 10:53 Inhibitor [Statins] GRAPE FLAVOR Allergy Mild Swelling Uncoded 11/03/17 10:53 of the Eye All Systems: The remainder of the systems were reviewed and are negative Physical Examination - Vital Signs Vital Signs: Initial Vital Signs Temp Pulse Resp BP Pulse Ox 98.2 F 97 18 125/63 100 11/17/17 04:49 11/17/17 04:49 11/17/17 04:49 11/17/17 04:49 11/17/17 04:49 - Constitutional General appearance: chronically ill - Neurologic Sensorimotor examination: other (Difficulty to assess due to patient uncooperative) Detailed motor examination: other (Hand oyster washer equal, leg weakness noted, able to wiggle toes bilaterally. ) Motor examination - right side: 1/5: hip flexors, tibialis Anterior, quadriceps , 3/5: toe extension (EHL), plantarflexion, 4/5: deltoids, biceps, triceps, wrist flexion, wrist extension, label coder Motor examination - left side: 1/5: quadriceps, tibialis Anterior, 3/5: toe extension (EHL), plantarflexion, 4/5: deltoids, biceps, triceps, wrist flexion, wrist extension, label coder Detailed sensory examination: intact (Unable to assess due to patient being uncooperative) Posture: other (None, specifically, no nuchal rigidity. ) Reflexes: Biceps: 1+, Triceps: 1+, Brachioradialis: 1+, Patella: 1+, Achilles: 1 + Mental Status Examination: awake, alert, lethargic, opens eyes to voice, makes eye contact, follows simple commands, answers questions by nodding yes or no Mental Status Examination: Patient is awake and alert and follows simple command. She replied 'not too bad ' to the question of how she is feeling. After that she makes eye contact and reluctant to answer or engage conversation. She answers yes or no. However. She follows commands and is able to tell 'two fingers' when asked to. Results - Laboratory Findings CBC and BMP: 11/26/17 02:36 11/26/17 02:36 Abnormal lab findings: Abnormal lab results WBC 12.9 K/mcL (4.3-11.1) H 11/26/17 02:36 RBC 2.84 M/mcL (3.82-4.97) L 11/26/17 02:36 Hgb 8.0 g/dL (11.5-15.4) L 11/26/17 02:36 Hct 26.1 % (35.3-44.9) L 11/26/17 02:36 MCHC 30.7 g/dL (31.6-35.5) L 11/26/17 02:36 RDW 14.8 % (11.5-14.5) H 11/26/17 02:36 Band Neutrophils % 17.0 % (0-4) H 11/19/17 06:21 Neutrophils # 10.3 K/mcL (1.6-8.9) H 11/26/17 02:36 ESR 100 mm/hr (0-15) H 11/25/17 12:15 PT 14.0 Seconds (9.4-12.1) H 11/25/17 18:26 ABG pCO2 27 mmHg (35-45) L 11/17/17 15:41 ABG pO2 80 mmHg (85-104) L 11/17/17 15:41 ABG HCO3 17 mEq/L (21-27) L 11/17/17 15:41 ABG Total CO2 18 mEq/L (20-26) L 11/17/17 15:41 ABG Base Excess -7 mEq/L (-2 to 3) L 11/17/17 15:41 Carbon Dioxide 21 mEq/L (23-29) L 11/26/17 02:36 BUN 71 mg/dL (8-23) H 11/26/17 02:36 Creatinine 2.96 mg/dL (0.60-1.20) H 11/26/17 02:36 Est GFR ( Amer) 19 (> 60) L 11/26/17 02:36 Est GFR (Non-Af Amer) 16 (> 60) L 11/26/17 02:36 Glucose 198 mg/dL (70-105) H 11/26/17 02:36 POC Glucose 208 mg/dL (70-99) H 11/26/17 07:43 Calculated Osmolality 308 (280-300) H 11/26/17 02:36 Calcium 8.2 mg/dL (8.6-10.3) L 11/26/17 02:36 Venous Ioniz Calcium 1.01 mmol/L (1.15-1.35) L 11/17/17 16:17 Phosphorus 5.2 mg/dL (2.7-4.5) H 11/26/17 02:36 Iron 13 mcg/dL (50-170) L 11/25/17 04:00 % Saturation 7 % (15-50) L 11/25/17 04:00 Transferrin 141 mg/dL (203-362) L 11/25/17 04:00 Alkaline Phosphatase 122 Units/L (34-104) H 11/25/17 12:15 C-Reactive Protein 204 mg/L (Less than 10) H 11/25/17 12:15 Albumin 2.5 g/dL (3.5-5.7) L 11/25/17 12:15 Globulin 3.9 g/dL (2.4-3.5) H 11/25/17 12:15 Albumin/Globulin Ratio 0.6 (1.1-2.2) L 11/25/17 12:15 Amylase 20 Units/L (29-103) L 11/25/17 12:15 Lipase 8 Units/L (11-82) L 11/25/17 12:15 Folate > 22.3 ng/mL (3.0-16.0) H 11/25/17 04:00 Ur Specimen Adequacy See below A 11/17/17 04:58 Urine Color Red (Yellow) A 11/17/17 04:58 Ur Specific [place] > 1.030 (1.010-1.025) H 11/17/17 04:58 Urine Protein >=1000 mg/dL (Neg-Trace) H 11/17/17 04:58 Urine Ketones Trace mg/dL (Negative) H 11/17/17 04:58 Urine Blood Large (Negative) H 11/17/17 04:58 Urine Nitrite Positive (Negative) A 11/17/17 04:58 Urine Bilirubin Moderate (Negative) H 11/17/17 04:58 Ur Leukocyte Esterase Small (Negative) H 11/17/17 04:58 Ur Culture Indicated? YES (NO) A 11/17/17 04:58 Consult Discharge Plan - Plan Referrals: Wale Lam DO [Primary Care Provider] -
[2017-11-26] MEDS: Insulin DETEMIR 100 UNIT/ML X5UNITS SQ SCH (20:21)
[2017-11-26] MEDS: Sodium Bicarbonate 75 MEQ in 0.45 % Sodium Chloride 1,000 ML IVC SCH (23:22)
--- NOTE | 2017-11-27 08:48 | Nephrology Progress Note ---
Date of Encounter: 11/27/17 Time of Encounter: 08:48 - Assessment and Plan (1) Acute kidney injury Current Visit: Yes Status: Acute Secondary to obstruction. Improved with ureteral stents and plunkett placement followed by urology. Given current condition along with good UOP, no acute indication for POWDER WORKER TNT at this time Continue to avoid nephrotoxins if possible. Renal function back to baseline. Renal dose medications and avoid nephrotoxins. (2) Anemia Current Visit: No Status: Acute will monitor Patient with significant hematuria and will likely need transfusion. Patient on heparin for DVT until an IVC filter can be placed. Qualifiers: Anemia type: unspecified type Qualified Code(s): D64.9 - Anemia, unspecified (3) Bilateral hydronephrosis Current Visit: Yes Status: Acute s/p stents bilateral, appreciate urology's help (4) Severe sepsis Current Visit: Yes Status: Acute Continue abx per primary team Resolved. (5) Metabolic acidosis Current Visit: Yes Status: Resolved Resolved. (6) CKD (chronic kidney disease) stage 4, GFR 15-29 ml/min Current Visit: Yes Status: Acute Baseline GFR in the 20s this year so far Subjective Principal diagnosis: Hematuria, septic shock Interval history: Patient seen and evaluated. She has no new complaints. Objective - Vital Signs Vital signs: Vital Signs Temp Pulse Resp BP Pulse Ox 11/27/17 07:37 98.6 F 72 18 134/75 92 11/27/17 03:54 97.9 F 71 16 145/70 98 11/26/17 22:24 98.9 F 67 16 150/69 99 11/26/17 19:34 98.5 F 75 16 147/63 100 11/26/17 16:39 99.0 F 65 16 153/73 99 11/26/17 11:06 98.3 F 62 16 148/80 99 Intake and Output 11/26/17 11/27/17 11/27/17 23:59 07:59 15:59 Intake Total 1775 / 1775 Output Total 200 / 200 750 / 750 Balance 1575 / 1575 -750 / -750 Intake: IV Fluids 1075 / 1075 Sodium Bicarbonate 75 MEQ In 0. 1075 / 1075 45% Sodium Chloride 1000 Ml 1000 Ml 1,000 ML @ 60 mls/hr IVC .[id number] [facility] Rx#:[id number] Oral 700 / 700 Output: Urine 200 / 200 750 / 750 Other: Intake, CBI Fluid 3,000 3,000 Percent of Meal Consumed 15% Output, CBI Fluid 3,000 3,000 Stool Size Smear Stool Consistency soft Stool Color Brown # Bowel Movements 1 Weight 108.5 kg Blood Glucose* 242 202 - General Appearance General appearance: Present: well-developed, well-nourished, obese EENT: Present: ATNC Neck: Present: supple Cardiology: Present: regular rate Neurologic: Present: alert and oriented x3 Psychiatric: Present: mood/affect appropriate - Lab 11/27/17 13:38 11/26/17 02:36 Most recent lab results ABG pH 7.41 pH Units (7.32-7.45) 11/17/17 15:41 ABG pCO2 27 mmHg (35-45) L 11/17/17 15:41 ABG pO2 80 mmHg (85-104) L 11/17/17 15:41 ABG HCO3 17 mEq/L (21-27) L 11/17/17 15:41 ABG O2 Saturation 96 % (95-98) 11/17/17 15:41 Calcium 8.2 mg/dL (8.6-10.3) L 11/26/17 02:36 Phosphorus 5.2 mg/dL (2.7-4.5) H 11/26/17 02:36 Magnesium 1.9 mg/dL (1.6-2.6) 11/26/17 02:36 Urine Creatinine 56 mg/dL 11/18/17 11:54 Urine Sodium 55.9 mEq/L 11/18/17 11:54 - VTE Documentation of Mechanical Device: Intermittent pneumatic compression device Consult Discharge Plan - Plan Referrals: Wale Lam DO [Primary Care Provider] -
[2017-11-27] MEDS: Aspirin Enteric Coated 81 MG Tablet PO SCH (09:20)
[2017-11-27] MEDS: Cefepime HCl 2,000 MG in Water for inj. (sterile) 20 ML 20 ML IVP SCH (09:20)
[2017-11-27] MEDS: Metoprolol XL (24 HR) Succ 50 MG TAB.ER.24H PO SCH (09:21)
[2017-11-27] MEDS: Ascorbic Acid 500 MG TABLET PO SCH ×2 (09:21→20:45)
[2017-11-27] MEDS: Fluconazole 100 MG/50 ML 100 MG/50 ML BAG IVPB SCH (09:22)
[2017-11-27] MEDS: Multivit/Ca/Min/Fe/FA 1 TAB TABLET PO SCH (09:22)
[2017-11-27] MEDS: Miconazole 2% ointment 114 GM TUBE TP SCH (09:22)
[2017-11-27] MEDS: Heparin 25,000 UNIT/500 ML D5W 25,000 UNIT/500 ML BAG IVC SCH ×2 (09:43→22:59)
[2017-11-27] MEDS: Insulin LISPRO 300 UNITS/3 ML VIAL SQ SCH ×4 (09:46→20:45)
[2017-11-27] MEDS ORDERED: Vancomycin 1 EACH in EMPTY BAG 1 EACH IVPB SCH (11:00)
--- NOTE | 2017-11-27 11:16 | Internal Med Progress Note ---
Hospitalist Progress Note - Encounter Date of Encounter: 11/27/17 Time of Encounter: 14:40 - Subjective Interval History: - Patient was seen and examined bedside. No fever overnight. Denies difficulty breathing - Exam Vitals: Temp Pulse Resp BP Pulse Ox 98.6 F 72 18 134/75 92 11/27/17 07:37 11/27/17 07:37 11/27/17 07:37 11/27/17 07:37 11/27/17 07:37 Exam: Gen - Awake, alert, oriented x 3, no acute distress HEENT - NCAT, PERRLA, EOMI, hearing grossly intact, oropharynx benign CV - RRR, normal S1 and S2, no M/R/G, no BLE edema Resp - Normal WOB, CTAB, no W/R/R GI - Soft, NT/ND, no masses, normal bowel sounds, no HSP Skin - Warm, dry, DTI on anterior chin on LT leg. Neuro: No focal deficit, Moving all extremities, Non answering questions but making eye contact Psych - Normal mood and affect, no depression or anxiety. - Assessment and Plan (1) Acute kidney injury superimposed on chronic kidney disease Current Visit: Yes Status: Chronic (2) Hematuria Current Visit: Yes Status: Resolved (3) Hydronephrosis Current Visit: No Status: Acute (4) UTI (urinary tract infection) Current Visit: Yes Status: Acute (5) Hypertension Current Visit: No Status: Chronic (6) Type 2 diabetes mellitus Current Visit: No Status: Acute (7) Chronic systolic heart failure Current Visit: No Status: Acute (8) Debility Current Visit: No Status: Acute (9) Acute encephalopathy Current Visit: Yes Status: Acute (10) DVT prophylaxis Current Visit: No Status: Acute (11) Generalized weakness Current Visit: No Status: Acute (12) DVT (deep venous thrombosis) Current Visit: Yes Status: Acute - Summary of Assessment and Plan Summary of Assessment and Plan: Acute kidney injury superimposed on chronic kidney disease - Likely from hematuria - Now stable. s/p stent placement - c/w plunkett. Hematuria - Initial Hematuria resolved. Was initially admitted to the ICU with iatrogenic hematuria - her CT showed large amounts of hemorrhagic products within the bladder- she is s/p cystoscopy and b/l ureteral stent placement , no evidence for any obvious tumors - patient currently stable post operatively. H&H relatively stable - started heparin for new Lt leg DVT after discussing with Urology. CBI bloody and with clots. Had to stop Heparin. Urology aware. Hydronephrosis - See plan for hematuria. Urinary tract infection - patient was admitted to the ICU because of sepsis and hypotension secondary to her UTI . - Her UTI could be likely due to her bilateral hydroureteronephrosis and hematuria which has currently resolved. She is s/p cystoscopy and b/l stent placement - Urine cultures grew shonna albicans x2. Candiduria is likely asymptomatic and no indication to treat. - She had fever while on cefepime. Previous blood cultures no growth to date. Awaiting blood cultures report( delayed due to lab issue) - ID following for fever. Started on Vancomycin. Afebrile since. White count trending down. c/w Vancomycin and zosyn - CT chest and CT abdomen/pelvis did not show any focus of infection. CT brain unremarkable. - fever possible from DVT. Acute encephalopathy - not talking. No focal deficits. Not at baseline to her previous admission per nurses.. - CT brain unremarkable. - Likely metabolic encephelopathy per neurology. No further test. Deep venous thrombosis - has new DVT in the left lower extremity - Vascular aware of hematuria and need to stop Heparin. Will plan for IVC tommorrow. - c/w heparin. Monitor for bleed in urine Hypertension - controlled. - Continue as needed hydralazine Type 2 diabetes mellitus - Continue basal and sliding scale insulin coverage. - Closely monitor glucose level and adjust insulin dose accordingly. Currently well controlled Chronic systolic heart failure - Patient has PPM and AICD. Appears euvolemic at this point. Continue metoprolol. - Temporarily hold losartan and Lasix at this point because of renal function. Closely monitor fluid status. DVT prophylaxis - Heparin stopped due to Hematuria. Will keep her on EPCD on Rt extremity. - Time Spent with Patient Total time spent is greater than 50% in coordination of care (as documented) at patient's floor/unit and/or counseling patient: Internal Medicine: Result - Labs CBC & Chem 7: 11/27/17 13:38 11/26/17 02:36 - ABG Interpretation ABG results: ABG ABG pH 7.41 pH Units (7.32-7.45) 11/17/17 15:41 ABG pCO2 27 mmHg (35-45) L 11/17/17 15:41 ABG pO2 80 mmHg (85-104) L 11/17/17 15:41 ABG O2 Saturation 96 % (95-98) 11/17/17 15:41 PT/INR, D-dimer PT 14.0 Seconds (9.4-12.1) H 11/25/17 18:26 - VTE Documentation of Mechanical Device: Intermittent pneumatic compression device Consult Discharge Plan - Plan Referrals: Wale Lam DO [Primary Care Provider] - (2) Hematuria Qualifiers: Hematuria type: gross Qualified Code(s): R31.0 - Gross hematuria (3) Hydronephrosis Qualifiers: Hydronephrosis type: unspecified Qualified Code(s): N13.30 - Unspecified hydronephrosis (4) UTI (urinary tract infection) Qualifiers: Urinary tract infection type: site unspecified Hematuria presence: with hematuria Qualified Code(s): N39.0 - Urinary tract infection, site not specified; R31.9 - Hematuria, unspecified (5) Hypertension Qualifiers: Hypertension type: essential hypertension Qualified Code(s): I10 - Essential (primary) hypertension (6) Type 2 diabetes mellitus Qualifiers: Diabetes mellitus 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 insulin use: with 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 use Diabetes mellitus complication status: with kidney complications Diabetes mellitus complication detail: with chronic kidney disease Chronic kidney disease stage: stage 4 (severe) Qualified Code(s): E11.22 - Type 2 diabetes mellitus with diabetic chronic kidney disease; N18.4 - Chronic kidney disease, stage 4 (severe ); Z79.4 - terminal gauger (current) use of insulin (12) DVT (deep venous thrombosis) Qualifiers: DVT location: lower extremity Affected thrombotic vein of extremity: femoral Chronicity: acute Laterality: left Qualified Code(s): I82.412 - Acute embolism and thrombosis of left femoral vein
--- NOTE | 2017-11-27 13:06 | Neurology Progress Note ---
Date of Encounter: 11/27/17 Time of Encounter: 13:04 Assessment and Plan (1) Metabolic encephalopathy Current Visit: Yes Status: Acute Patient appears slightly improving but still encephalopathic. She is able to answer questions intermittently. No focal deficits except that she does not seem to cooperative in lifting her legs up but she is able to do so today to the left leg. Her hand fruit tester are equal. Again, clinical features are consist with metabolic encephalopathy. She can not get MRI scanning due to AICD placement. If neurological status worsen a repeat CT of head without contrast can be done. Otherwise, please continue medical and supportive care. Subjective Principal diagnosis: metabolic encephalopathy Interval history: Patient seen and examined. She appears more alert and reactive. She is lying in bed and watching TV. She is able to tell me her date, although in the slow motion. She agrees with a yes that she is feeling better. After that, she remains silent but making eye contact. Able to follow commands and lift her arms equally. Objective - Constitutional Vitals: Temp Pulse Resp BP Pulse Ox 99.5 F 80 18 150/74 94 11/27/17 11:37 11/27/17 11:37 11/27/17 11:37 11/27/17 11:37 11/27/17 11:37 - Neurological Exam Sensorimotor examination: Present: other (Difficulty to assess due to patient uncooperative) Motor Examination: Present: other (Hand fruit tester equal, leg weakness noted, able to wiggle toes bilaterally. ) Motor examination - right side: 3/5: hip flexors, tibialis Anterior, quadriceps , toe extension (EHL), plantarflexion, 4/5: deltoids, biceps, triceps, wrist flexion, wrist extension, finance officer Motor examination - left side: 3/5: quadriceps, tibialis Anterior, toe extension (EHL), plantarflexion, 4/5: deltoids, biceps, triceps, wrist flexion, wrist extension, finance officer Sensation intact: Present: intact (Unable to assess due to patient being uncooperative) Posture: Present: other (None, specifically, no nuchal rigidity. ) Reflex and gait examination: other (Gait not assessed) Reflexes: Biceps: 1+, Triceps: 1+, Brachioradialis: 1+, Patella: 1+, Achilles: 1 + Mental Status Examination: Present: awake, alert, oriented to person (Able to verblize her birthdate), opens eyes to voice, makes eye contact, follows simple commands, answers questions by nodding yes or no - VTE Documentation of Mechanical Device: Intermittent pneumatic compression device Results - Laboratory Findings CBC and BMP: 11/26/17 02:36 11/26/17 02:36 Abnormal lab findings: Abnormal lab results WBC 12.9 K/mcL (4.3-11.1) H 11/26/17 02:36 RBC 2.84 M/mcL (3.82-4.97) L 11/26/17 02:36 Hgb 8.0 g/dL (11.5-15.4) L 11/26/17 02:36 Hct 26.1 % (35.3-44.9) L 11/26/17 02:36 MCHC 30.7 g/dL (31.6-35.5) L 11/26/17 02:36 RDW 14.8 % (11.5-14.5) H 11/26/17 02:36 Band Neutrophils % 17.0 % (0-4) H 11/19/17 06:21 Neutrophils # 10.3 K/mcL (1.6-8.9) H 11/26/17 02:36 ESR 100 mm/hr (0-15) H 11/25/17 12:15 PT 14.0 Seconds (9.4-12.1) H 11/25/17 18:26 ABG pCO2 27 mmHg (35-45) L 11/17/17 15:41 ABG pO2 80 mmHg (85-104) L 11/17/17 15:41 ABG HCO3 17 mEq/L (21-27) L 11/17/17 15:41 ABG Total CO2 18 mEq/L (20-26) L 11/17/17 15:41 ABG Base Excess -7 mEq/L (-2 to 3) L 11/17/17 15:41 Carbon Dioxide 21 mEq/L (23-29) L 11/26/17 02:36 BUN 71 mg/dL (8-23) H 11/26/17 02:36 Creatinine 2.96 mg/dL (0.60-1.20) H 11/26/17 02:36 Est GFR ( Amer) 19 (> 60) L 11/26/17 02:36 Est GFR (Non-Af Amer) 16 (> 60) L 11/26/17 02:36 Glucose 198 mg/dL (70-105) H 11/26/17 02:36 POC Glucose 242 mg/dL (70-99) H 11/26/17 19:39 Calculated Osmolality 308 (280-300) H 11/26/17 02:36 Calcium 8.2 mg/dL (8.6-10.3) L 11/26/17 02:36 Venous Ioniz Calcium 1.01 mmol/L (1.15-1.35) L 11/17/17 16:17 Phosphorus 5.2 mg/dL (2.7-4.5) H 11/26/17 02:36 Iron 13 mcg/dL (50-170) L 11/25/17 04:00 % Saturation 7 % (15-50) L 11/25/17 04:00 Transferrin 141 mg/dL (203-362) L 11/25/17 04:00 Alkaline Phosphatase 122 Units/L (34-104) H 11/25/17 12:15 C-Reactive Protein 204 mg/L (Less than 10) H 11/25/17 12:15 Albumin 2.5 g/dL (3.5-5.7) L 11/25/17 12:15 Globulin 3.9 g/dL (2.4-3.5) H 11/25/17 12:15 Albumin/Globulin Ratio 0.6 (1.1-2.2) L 11/25/17 12:15 Amylase 20 Units/L (29-103) L 11/25/17 12:15 Lipase 8 Units/L (11-82) L 11/25/17 12:15 Folate > 22.3 ng/mL (3.0-16.0) H 11/25/17 04:00 Ur Specimen Adequacy See below A 11/17/17 04:58 Urine Color Red (Yellow) A 11/17/17 04:58 Ur Specific [place] > 1.030 (1.010-1.025) H 11/17/17 04:58 Urine Protein >=1000 mg/dL (Neg-Trace) H 11/17/17 04:58 Urine Ketones Trace mg/dL (Negative) H 11/17/17 04:58 Urine Blood Large (Negative) H 11/17/17 04:58 Urine Nitrite Positive (Negative) A 11/17/17 04:58 Urine Bilirubin Moderate (Negative) H 11/17/17 04:58 Ur Leukocyte Esterase Small (Negative) H 11/17/17 04:58 Ur Culture Indicated? YES (NO) A 11/17/17 04:58 Vancomycin Trough 43 mcg/mL (5-10) H 11/27/17 08:49 Consult Discharge Plan - Plan Referrals: Wale Lam DO [Primary Care Provider] -
[2017-11-27 13:51] LABS: Hematocrit 27.1 % (35.3-44.9); Hemoglobin 8.4 g/dL (11.5-15.4)
--- NOTE | 2017-11-27 16:11 | Vascular/[facility] Progress Note ---
Date of Encounter: 11/27/17 Time of Encounter: 16:09 - Assessment and plan (1) DVT (deep venous thrombosis) Current Visit: Yes Status: Acute Assessment: Left lower extremity deep venous thrombosis in the face of hematuria and questionable ability to anticoagulate. . Qualifiers: DVT location: lower extremity Affected thrombotic vein of extremity: femoral Chronicity: acute Laterality: left Qualified Code(s): I82.412 - Acute embolism and thrombosis of left femoral vein Discussion with patient/family: With the renewed hematuria that is present, placement of an IVC filter does appear warranted. The patient has not been In an nothing by mouth status of present, is not in extremis, and the placement of the IVC filter tomorrow appears reasonable. We will proceed forward in scheduling that. - Subjective Interval history: This 71-year-old female was seen in follow-up today. We were requested to see this patient again because she has had difficulty with renewed hematuria. Renewed consideration for placement of an IVC filter is requested. Exam: The physical examination is entirely unchanged from previous with the exception that the patient's [place]iz[place] catheter and now has significant hematuria noted. - VTE Documentation of Mechanical Device: Intermittent pneumatic compression device Results 11/27/17 13:38 11/26/17 02:36 Lab Results, Last 24 hours 11/27/17 13:38 Hgb 8.4 L Hct 27.1 L Consult Discharge Plan - Plan Referrals: Wale Lam DO [Primary Care Provider] -
[2017-11-27] MEDS: Sodium Bicarbonate 75 MEQ in 0.45 % Sodium Chloride 1,000 ML IVC SCH (17:03)
[2017-11-27] MEDS: *HR* OxyCODONE Immed Rel 5 MG TABLET PO PRN (18:45)
[2017-11-27] MEDS: *HR* Acetylcysteine 20% 600 MG/3 ML ORAL SYRINGE PO SCH ×2 (19:18→20:45)
[2017-11-27] MEDS: Insulin DETEMIR 100 UNIT/ML X5UNITS SQ SCH (20:45)
[2017-11-28 06:21] LABS: Basophils % 0.2 %; Eosinophils # 0.3 K/mcL (0.0-0.6); Eosinophils % 1.8 %; Hematocrit 27.9 % (35.3-44.9); Hemoglobin 8.7 g/dL (11.5-15.4); Immature Granulocytes % 0.7 % (0-4); Lymphocytes # 1.5 K/mcL (0.6-4.6); Lymphocytes % 9.5 %; Mean Corpuscular HGB Conc 31.2 g/dL (31.6-35.5); Mean Corpuscular Hemoglobin 28.4 pg (28.0-33.3); Mean Corpuscular Volume 91.2 fL (83.0-100.0); Mean Platelet Volume 10.5 fL (9.4-12.4); Monocytes # 1.4 K/mcL (0.0-1.3); Monocytes % 8.5 %; Neutrophils # 12.7 K/mcL (1.6-8.9); Platelet Count 350 K/mcL (140-400); Red Blood Count 3.06 M/mcL (3.82-4.97); Red Cell Distribution Width 14.9 % (11.5-14.5); Segmented Neutrophils % 79.3 %
[2017-11-28 06:36] LABS: Albumin 2.7 g/dL (3.5-5.7); Calcium 8.5 mg/dL (8.6-10.3); Phosphorous 4.4 mg/dL (2.7-4.5); Potassium 3.9 mEq/L (3.5-5.1)
[2017-11-28] MEDS: Insulin LISPRO 300 UNITS/3 ML VIAL SQ SCH ×4 (07:43→21:47)
[2017-11-28] MEDS ORDERED: Aminoglycoside Consult 1 EACH MC ONE (08:05)
[2017-11-28] MEDS: Cefepime HCl 2,000 MG in Water for inj. (sterile) 20 ML 20 ML IVP SCH (08:35)
[2017-11-28] MEDS: Fluconazole 100 MG/50 ML 100 MG/50 ML BAG IVPB SCH (08:37)
[2017-11-28] MEDS: *HR* Acetylcysteine 20% 600 MG/3 ML ORAL SYRINGE PO SCH ×3 (08:38→21:46)
[2017-11-28] MEDS: Miconazole 2% ointment 114 GM TUBE TP SCH (08:38)
[2017-11-28] MEDS: Aspirin Enteric Coated 81 MG Tablet PO SCH ×2 (08:39→15:53)
[2017-11-28] MEDS: Metoprolol XL (24 HR) Succ 50 MG TAB.ER.24H PO SCH ×2 (08:39→15:53)
--- NOTE | 2017-11-28 08:48 | Event Note ---
Date of Encounter: 11/28/17 Time of Encounter: 08:44 Nephrology Chart Review I've reviewed the pt's labs and still with advanced CKD stage IV, which is not significantly different from baseline. I will sign-off on daily rounding; however, please feel free to call or consult if needed. She will need a close clinic follow up with her primary Heavy Duty Custodian Dr. Kearney. Thank you.
[2017-11-28] MEDS: Multivit/Ca/Min/Fe/FA 1 TAB TABLET PO SCH (09:52)
[2017-11-28] MEDS: Ascorbic Acid 500 MG TABLET PO SCH ×2 (09:52→21:45)
[2017-11-28] MEDS ORDERED: Vancomycin 1 EACH in EMPTY BAG 1 EACH IVPB PRN (11:00)
[2017-11-28] MEDS: Sodium Bicarbonate 75 MEQ in 0.45 % Sodium Chloride 1,000 ML IVC SCH (11:06)
--- NOTE | 2017-11-28 12:36 | Internal Med Progress Note ---
Hospitalist Progress Note - Encounter Date of Encounter: 11/28/17 Time of Encounter: 10:19 - Subjective Interval History: - Patient was seen and examined bedside. No fever overnight. Urine clear. - Exam Vitals: Temp Pulse Resp BP Pulse Ox 98.2 F 64 16 125/65 98 11/28/17 11:08 11/28/17 11:08 11/28/17 11:08 11/28/17 11:08 11/28/17 07:23 Exam: Gen - Awake, alert, oriented x 3, no acute distress HEENT - NCAT, PERRLA, EOMI, hearing grossly intact, oropharynx benign CV - RRR, normal S1 and S2, no M/R/G, no BLE edema Resp - Normal WOB, CTAB, no W/R/R GI - Soft, NT/ND, no masses, normal bowel sounds, no HSP Skin - Warm, dry, DTI on anterior chin on LT leg. Neuro: No focal deficit, Moving all extremities, Non answering questions but making eye contact Psych - Normal mood and affect, no depression or anxiety. - Assessment and Plan (1) Acute kidney injury superimposed on chronic kidney disease Current Visit: Yes Status: Chronic (2) Hematuria Current Visit: Yes Status: Resolved (3) Hydronephrosis Current Visit: No Status: Acute (4) UTI (urinary tract infection) Current Visit: Yes Status: Acute (5) Hypertension Current Visit: No Status: Chronic (6) Type 2 diabetes mellitus Current Visit: No Status: Acute (7) Chronic systolic heart failure Current Visit: No Status: Acute (8) Debility Current Visit: No Status: Acute (9) Acute encephalopathy Current Visit: Yes Status: Acute (10) DVT prophylaxis Current Visit: No Status: Acute (11) Generalized weakness Current Visit: No Status: Acute (12) DVT (deep venous thrombosis) Current Visit: Yes Status: Acute - Summary of Assessment and Plan Summary of Assessment and Plan: Acute kidney injury superimposed on chronic kidney disease - Likely from hematuria - Now stable. s/p stent placement - c/w plunkett. Hematuria - Initial Hematuria resolved. Was initially admitted to the ICU with iatrogenic hematuria - her CT showed large amounts of hemorrhagic products within the bladder- she is s/p cystoscopy and b/l ureteral stent placement , no evidence for any obvious tumors - patient currently stable post operatively. H&H relatively stable - started heparin for new Lt leg DVT after discussing with Urology. CBI bloody and with clots. Had to stop Heparin. Urology aware. urine now cleared. Hydronephrosis - See plan for hematuria. Urinary tract infection - patient was admitted to the ICU because of sepsis and hypotension secondary to her UTI . - Her UTI could be likely due to her bilateral hydroureteronephrosis and hematuria which has currently resolved. She is s/p cystoscopy and b/l stent placement - Urine cultures grew shonna albicans x2. Candiduria is likely asymptomatic and no indication to treat. - She had fever while on cefepime. Previous blood cultures NGTD x2. Awaiting last blood cultures report( delayed due to lab issue) - ID following for fever. Started on Vancomycin. Afebrile since. White count trending down. c/w Vancomycin and cefepime. ID recommendation appreciated. - CT chest and CT abdomen/pelvis did not show any focus of infection. CT brain unremarkable. - fever possible from DVT. Acute encephalopathy - not talking. No focal deficits. Not at baseline to her previous admission per nurses.. - CT brain unremarkable. - Likely metabolic encephelopathy per neurology. No further tests. Deep venous thrombosis - has new DVT in the left lower extremity - Cannot anticoagulate. plan for IVC today Hypertension - controlled. - Continue as needed hydralazine Type 2 diabetes mellitus - Continue basal and sliding scale insulin coverage. - Closely monitor glucose level and adjust insulin dose accordingly. Currently well controlled Chronic systolic heart failure - Patient has PPM and AICD. Appears euvolemic at this point. Continue metoprolol. - Temporarily hold losartan and Lasix at this point because of renal function. Closely monitor fluid status. DVT prophylaxis - Heparin stopped due to Hematuria. Will keep her on EPCD on Rt extremity. - Time Spent with Patient Total time spent is greater than 50% in coordination of care (as documented) at patient's floor/unit and/or counseling patient: Greater than 35 minutes Internal Medicine: Result - Labs CBC & Chem 7: 11/28/17 05:57 11/28/17 05:57 Labs: Short CBC 11/27/17 11/28/17 Range/Units 13:38 05:57 WBC 16.0 H (4.3-11.1) K/mcL Hgb 8.4 L 8.7 L (11.5-15.4) g/dL Hct 27.1 L 27.9 L (35.3-44.9) % Plt Count 350 (140-400) K/mcL Neutrophils # 12.7 H (1.6-8.9) K/mcL BMP 11/28/17 05:57 Sodium 138 Potassium 3.9 Chloride 100 Carbon Dioxide 26 BUN 61 H Creatinine 3.08 H Glucose 141 H Calcium 8.5 L Liver Function 11/28/17 Range/Units 05:57 Albumin 2.7 L (3.5-5.7) g/dL - ABG Interpretation ABG results: ABG ABG pH 7.41 pH Units (7.32-7.45) 11/17/17 15:41 ABG pCO2 27 mmHg (35-45) L 11/17/17 15:41 ABG pO2 80 mmHg (85-104) L 11/17/17 15:41 ABG O2 Saturation 96 % (95-98) 11/17/17 15:41 PT/INR, D-dimer PT 14.0 Seconds (9.4-12.1) H 11/25/17 18:26 - VTE Documentation of Mechanical Device: Intermittent pneumatic compression device Consult Discharge Plan - Plan Referrals: Wale Lam DO [Primary Care Provider] - (2) Hematuria Qualifiers: Hematuria type: gross Qualified Code(s): R31.0 - Gross hematuria (3) Hydronephrosis Qualifiers: Hydronephrosis type: unspecified Qualified Code(s): N13.30 - Unspecified hydronephrosis (4) UTI (urinary tract infection) Qualifiers: Urinary tract infection type: site unspecified Hematuria presence: with hematuria Qualified Code(s): N39.0 - Urinary tract infection, site not specified; R31.9 - Hematuria, unspecified (5) Hypertension Qualifiers: Hypertension type: essential hypertension Qualified Code(s): I10 - Essential (primary) hypertension (6) Type 2 diabetes mellitus Qualifiers: Diabetes mellitus buttermaker continuous churn insulin use: with buttermaker continuous churn use Diabetes mellitus complication status: with kidney complications Diabetes mellitus complication detail: with chronic kidney disease Chronic kidney disease stage: stage 4 (severe) Qualified Code(s): E11.22 - Type 2 diabetes mellitus with diabetic chronic kidney disease; N18.4 - Chronic kidney disease, stage 4 (severe ); Z79.4 - buttermaker continuous churn (current) use of insulin (12) DVT (deep venous thrombosis) Qualifiers: DVT location: lower extremity Affected thrombotic vein of extremity: femoral Chronicity: acute Laterality: left Qualified Code(s): I82.412 - Acute embolism and thrombosis of left femoral vein
--- NOTE | 2017-11-28 13:08 | Urology Progress Note ---
Date of Encounter: 11/28/17 Time of Encounter: 13:06 - Assessment and Plan (1) Gross hematuria Current Visit: Yes Status: Acute Assessment and plan: Patient was prepped and draped in normal sterile fashion. I then placed a 24- Mongol[place] hematuria catheter into the patient's bladder. I irrigated a small amount of clots out of the patient's bladder. The catheter was then placed to continuous irrigation. At this point patient's urine remained slightly pink on moderate drip. We will continue with continuous bladder irrigation. And follow -up for manual irrigation later today. Progress Note Narrative: Patient seen this morning. Catheter was having issues with continued clogging and poor drainage. Patient's heparin drip had been turned off. Patient going for IVC filter. Objective Initial Vital Signs Temp Pulse Resp BP Pulse Ox 98.2 F 97 18 125/63 100 11/17/17 04:49 11/17/17 04:49 11/17/17 04:49 11/17/17 04:49 11/17/17 04:49 - General physical appearance Present: well developed, well nourished - Abdomen Present: soft. Absent: tender - Labs 11/28/17 05:57 11/28/17 05:57 Diabetes panel 11/28/17 Range/Units 05:57 Sodium 138 (136-145) mEq/L Potassium 3.9 (3.5-5.1) mEq/L Chloride 100 (98-107) mEq/L Carbon Dioxide 26 (23-29) mEq/L BUN 61 H (8-23) mg/dL Creatinine 3.08 H (0.60-1.20) mg/dL Glucose 141 H (70-105) mg/dL Calcium 8.5 L (8.6-10.3) mg/dL Albumin 2.7 L (3.5-5.7) g/dL Calcium panel 11/28/17 Range/Units 05:57 Calcium 8.5 L (8.6-10.3) mg/dL Phosphorus 4.4 (2.7-4.5) mg/dL Albumin 2.7 L (3.5-5.7) g/dL Pituitary panel 11/28/17 Range/Units 05:57 Sodium 138 (136-145) mEq/L Potassium 3.9 (3.5-5.1) mEq/L Chloride 100 (98-107) mEq/L Carbon Dioxide 26 (23-29) mEq/L BUN 61 H (8-23) mg/dL Creatinine 3.08 H (0.60-1.20) mg/dL Glucose 141 H (70-105) mg/dL Calcium 8.5 L (8.6-10.3) mg/dL Adrenal panel 11/28/17 Range/Units 05:57 Sodium 138 (136-145) mEq/L Potassium 3.9 (3.5-5.1) mEq/L Chloride 100 (98-107) mEq/L Carbon Dioxide 26 (23-29) mEq/L BUN 61 H (8-23) mg/dL Creatinine 3.08 H (0.60-1.20) mg/dL Glucose 141 H (70-105) mg/dL Calcium 8.5 L (8.6-10.3) mg/dL Albumin 2.7 L (3.5-5.7) g/dL - VTE Documentation of Mechanical Device: Intermittent pneumatic compression device Consult Discharge Plan - Plan Referrals: Wale Lam DO [Primary Care Provider] -
--- NOTE | 2017-11-28 13:12 | Pre-Sedation Evaluation ---
Pre-sedation evaluation - Pre-sedation checklist Date of procedure: 11/18/17 Procedure: Carotidangiogram Recent Vitals: Last Vital Signs Temp 98.2 F 11/28/17 11:08 Pulse 64 11/28/17 11:08 Resp 16 11/28/17 11:08 BP 125/65 11/28/17 11:08 Pulse Ox 98 11/28/17 07:23 H&P (including ROS) documented in medical record: Yes Previous reaction to sedatives/anesthetics: No Dietary Status: NPO after Midnight Dentition: poor dentition Possible difficult airway: Yes If Yes;: Limited ability to open mouth, Neck limited ROM, Morbid obesity ASA Classification *see protocol: CLASS III-Severe systemic disease Plan of Care: Pt appropriate candidate for procedure/moderate/conscious sedation , Risks/benefits of procedure/sedation discussed w/ patient/family Cardiac Registry (Cardio Only) - Functional Capacity - Clincal Frailty Scale
[2017-11-28] MEDS ORDERED: Heparin 1,000 UNITS/500 mL 500 ML ONE (13:56)
[2017-11-28] MEDS ORDERED: Isovue-300 200 mL Infus..BTL IV ONE (13:56)
--- NOTE | 2017-11-28 14:38 | Infectious Disease Progress No ---
Date of Encounter: 11/28/17 Time of Encounter: 10:00 - Assessment and Plan (1) Sepsis Current Visit: Yes Status: Acute The patient originally came in with severe sepsis and progressed to septic shock , which resolved. Infectious Disease was consulted for persistent fevers and worsening leukocytosis. Tachycardia has resolved. The source of her persistent fevers is unclear. She has been on Cefepime since surgery on 11/18/17. She doesn't really participate in the exam and it's unclear if she doesn't want to or physically cannot participate. Her fevers seem to have improved since Vanc was started. Blood cultures drawn 11/17/17 were negative. Additional blood cultures drawn 11/22 are negative. Blood cultures drawn 11/25/2017 are incubating. Urine culture obtained on admission grew C. albicans and repeat urine culture is positive for yeast as well. Another repeat 11/24/2017 is also positive for Yolanda albicans. CXR showed possible RLL PNA. CT chest non-contrast does not show pneumonia. CT abdomen/pelvis without contrast reveals no acute process. LFTs, amylase, and lipase are negative. ESR and CRP are elevated at 100 ad 204, respectively. Assume urinary source due to pus from ureteral stent and negative CT chest/abd/ pelvis. Continue Vancomycin IV. Pharmacy to dose. Goal trough ~15. Continue Cefepime 2 grams IV Q24H. Duration of treatment depends on the clinical picture. Monitor renal function and for drug toxicity and dose-adjust antibiotics. Qualifiers: Sepsis type: sepsis due to unspecified organism Qualified Code(s): A41.9 - Sepsis, unspecified organism (2) Pneumonia Current Visit: Yes Status: Suspected CXR completed 11/24/17 showed RLL PNA vs. atelectasis. CT chest non-contrast 11/25 does not show pneumonia. Not sure if the patient is having symptoms as she does not answer ROS questions. Consider checking S. pneumo and Legionella UAT. Check procalcitonin. Check RIP. Continue antibiotics as above for now. Qualifiers: Pneumonia type: due to unspecified organism Laterality: right Lung location: lower lobe of lung Qualified Code(s): J18.1 - Lobar pneumonia, unspecified organism (3) UTI (urinary tract infection) Current Visit: Yes Status: Acute Causative organism unclear. Urine culture on admission positive for C. albicans as well as repeat culture is positive for Yeast species. Repeat 11/24 also positive for C. albicans. Likely secondary to retained urine. CT of the abdomen and pelvis showed hemorrhage of the bladder and bilateral hydroureteronephrosis. CT abd/pelvis 11/25 reveals no acute process. Urology consulted. Status post cystoscopy with bilateral ureteral stent placement 11/18/17. Operative note reviewed. Purulent fluid drained from the right ureter, but no cultures were obtained. Not convinced that this is the source of the patient's fevers, but since she has bilateral ureteral stents, started Fluconazole 200mg IV x 1 dose now and 100mg IV daily since 11/25. Dose-adjusted for CrCl ~13. Recommend switching to PO fluconazole at this time. AST and ALT are 19 and 10, respectively. Qualifiers: Urinary tract infection type: site unspecified Hematuria presence: with hematuria Qualified Code(s): N39.0 - Urinary tract infection, site not specified; R31.9 - Hematuria, unspecified (4) Hematuria Current Visit: Yes Status: Acute Etiology unclear. Status post cystoscopy with evacuation of the clot 11/18/17 by Urology. Operative note reviewed. Large clot noted with friable bladder wall. Hematuria resolved then recurred after being placed on heparin on 11/26 for DVT in left lower extremity. Heparin stopped. Patient to receive IVC filter today. Management per the urology team. Qualifiers: Hematuria type: gross Qualified Code(s): R31.0 - Gross hematuria (5) Acute encephalopathy Current Visit: Yes Status: Acute Etiology unclear, likely multifactorial per Neurology team. Able to communicate, but chooses not to. CT head reveals no acute process. 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 Continue to monitor closely. Management per the neurology team. (6) Acute kidney injury superimposed on chronic kidney disease Current Visit: Yes Status: Resolved Serum creatinine 5.43 on admission. Secondary to obstruction. Improved with ureteral stents and plunkett placement followed by urology. Kidney function back to baseline. Nephrology signed-off today. Continue to trend. Dose-adjust antibiotics. Avoid nephrotoxins as able. Will need to dose Vancomycin carefully. Will ask pharmacy to assist. (7) Bilateral hydronephrosis Current Visit: Yes Status: Acute Secondary to obstruction. CT of the abdomen and pelvis 11/17/17 showed bilateral hydroureteronephrosis and hemorrhage of the bladder. Urology consulted. Status post cystoscopy with bilateral ureteral stent placement 11/18/17. (8) Septic shock Current Visit: Yes Status: Resolved (9) Anemia Current Visit: Yes Status: Acute Hgb stable around 8. Further workup and management per the primary team. Qualifiers: Anemia type: unspecified type Qualified Code(s): D64.9 - Anemia, unspecified (10) Hyperkalemia Current Visit: Yes Status: Resolved Likely secondary to TENISHA. Resolved. (11) Metabolic acidosis Current Visit: Yes Status: Resolved (12) Cardiomyopathy Current Visit: No Status: Chronic Qualifiers: Cardiomyopathy type: ischemic Qualified Code(s): I25.5 - Ischemic cardiomyopathy (13) Diabetes mellitus Current Visit: No Status: Chronic Qualifiers: Diabetes mellitus type: type 2 Diabetes mellitus terminal carman insulin use: with intermediate use Diabetes mellitus complication status: with circulatory complication Diabetes mellitus complication detail: with other circulatory complications Qualified Code(s): E11.59 - Type 2 diabetes mellitus with other circulatory complications; Z79.4 - 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 Clinically does not appear cellulitis. Continue to monitor. (17) Chronic systolic heart failure Current Visit: No Status: Acute - Subjective Interval history: Patient seen and examined. Patient is resting comfortably in bed with boyfriend by her side. Patient speaks one word answers occasionally. Better response when boyfriend prompts her. Patient states she feels better and is sleepy. Boyfriend reports continuing loss of appetite. Patient denies pain, fever, chills, chest pain, shortness of breath, abdominal pain, nausea, vomiting, diarrhea. There is blood in urine, no clots observed. Heparin stopped due to recurring hematuria, will receive IVC filter today. Urinary catheter obstructed again, urology placed hematuria catheter. Infect Dis PN-Objective Data - Labs CBC & Chem 7: 11/29/17 09:53 11/29/17 08:59 Labs: Laboratory Results - last 24 hr 11/27/17 11/27/17 11/27/17 07:39 11:46 16:25 WBC RBC Hgb Hct MCV MCH MCHC RDW Plt Count MPV Immature Gran % Seg Neutrophils % Lymphocytes % Monocytes % Eosinophils % Basophils % Neutrophils # Lymphocytes # Monocytes # Eosinophils # Basophils # Sodium Potassium Chloride Carbon Dioxide BUN Creatinine Est GFR ( Amer) Est GFR (Non-Af Amer) BUN/Creatinine Ratio Glucose POC Glucose 202 H 213 H 158 H Calculated Osmolality Calcium Phosphorus Albumin Random Vancomycin 11/27/17 11/28/17 11/28/17 20:30 05:57 05:57 WBC 16.0 H RBC 3.06 L Hgb 8.7 L Hct 27.9 L MCV 91.2 MCH 28.4 MCHC 31.2 L RDW 14.9 H Plt Count 350 MPV 10.5 Immature Gran % 0.7 Seg Neutrophils % 79.3 Lymphocytes % 9.5 Monocytes % 8.5 Eosinophils % 1.8 Basophils % 0.2 Neutrophils # 12.7 H Lymphocytes # 1.5 Monocytes # 1.4 H Eosinophils # 0.3 Basophils # 0.0 Sodium 138 Potassium 3.9 Chloride 100 Carbon Dioxide 26 BUN 61 H Creatinine 3.08 H Est GFR ( Amer) 18 L Est GFR (Non-Af Amer) 15 L BUN/Creatinine Ratio 20 Glucose 141 H POC Glucose 202 H Calculated Osmolality 306 H Calcium 8.5 L Phosphorus 4.4 Albumin 2.7 L Random Vancomycin 11/28/17 11/28/17 05:57 07:26 WBC RBC Hgb Hct MCV MCH MCHC RDW Plt Count MPV Immature Gran % Seg Neutrophils % Lymphocytes % Monocytes % Eosinophils % Basophils % Neutrophils # Lymphocytes # Monocytes # Eosinophils # Basophils # Sodium Potassium Chloride Carbon Dioxide BUN Creatinine Est GFR ( Amer) Est GFR (Non-Af Amer) BUN/Creatinine Ratio Glucose POC Glucose 166 H Calculated Osmolality Calcium Phosphorus Albumin Random Vancomycin 34 Cultures: Cultures 11/22/17 11:02 Blood Culture - Final Peripheral Venipuncture No growth. Final report. 11/22/17 11:02 Blood Culture - Final Peripheral Venipuncture No growth. Final report. 11/24/17 10:28 Urine Culture - Final Urine,[place] Yolanda albicans 11/25/17 12:04 Blood Culture - Preliminary Peripheral Venipuncture Culture is incubating and being continuously monitored for growth. Final report to follow. 11/25/17 12:13 Blood Culture - Preliminary Peripheral Venipuncture Culture is incubating and being continuously monitored for growth. Final report to follow. 11/22/17 10:20 Urine Culture - Final Urine,Catheterized Yolanda albicans Serology 11/21/17 11/18/17 11/18/17 Range/Units 12:26 11:54 11:54 Ur Eosinophil Smear 0 (None Seen) % Urine Creatinine 56 mg/dL Urine Sodium 55.9 mEq/L Hep Bs Antigen Nonreactive (Nonreactive) Hep Bs Antibody 0.00 mIU/mL Exam - Constitutional Vitals: Temp Pulse Resp BP Pulse Ox 98.2 F 64 16 125/65 98 11/28/17 11:08 11/28/17 11:08 11/28/17 11:08 11/28/17 11:08 11/28/17 07:23 General appearance: morbidly obese, no acute distress, no febrile, no cooperative - Head Head exam: Present: atraumatic, normal inspection, normocephalic - Eye Eye exam: Present: EOMI, normal appearance, PERRL Pupils: Present: normal accommodation - ENT ENT exam: Present: mucous membranes dry - Neck Neck exam: Present: normal inspection - Respiratory Respiratory exam: Present: CTAB. Absent: prolonged expiratory phase, rales, respiratory distress, rhonchi, wheezes - Cardiovascular Cardiovascular exam: Present: RRR. Absent: bradycardia, systolic murmur, tachycardia - GI/Abdominal GI/Abdominal exam: Present: distended (obese), normal bowel sounds, soft. Absent: bruit, guarding, organomegaly, tenderness Additional comments: Plunkett catheter noted to be draining pink urine. - Neurological Exam Neurological exam: Present: alert, no focal deficits. Absent: oriented X3 ( Unable to assess due to patient uncooperative to answering questions ) - Psychiatric Psychiatric exam: Present: flat affect - Skin Skin exam: Present: dry, intact, warm. Absent: cyanosis, erythema - VTE Documentation of Mechanical Device: Intermittent pneumatic compression device Consult Discharge Plan - Plan Referrals: Wale Lam DO [Primary Care Provider] - - Attending Attestation I examined this patient and my medical decision-making was reviewed with the Resident Physician. I agree with the documented findings, disposition and treatment plan as described except to the extent set forth below. Patient presents with a complex clinical picture. Patient was on cefepime for 6 days and continued to have fever. Patient was started on vancomycin on the and the fever subsided. Patient also has been on Diflucan for candiduria. When the stent was placed there was pus coming out from the right ureter but no cultures were obtained. I am not sure why adding vancomycin improve the patient's symptoms and fever. I did speak with Dr. mello and discussed the case. I am not sure if patient had enterococcus or MRSA that was not being treated by cefepime and vancomycin help. At this point I will not make any changes to the antibiotics. I did speak with pharmacy and the patient's level are so high that she will probably be therapeutic for the next 72 hours. At that point we will make further recommendations on what antibiotics use. I will switch the Diflucan to oral.
--- NOTE | 2017-11-28 15:10 | Procedure Note ---
Date of procedure: 11/28/17 Pre-op diagnosis: complication of anticoagulation/left calf DVT Post-op diagnosis: same Procedure: IVC cavogram placement of IVC filter Anesthesia: MAC Surgeon: Gustavo Kolb Was there an roofer assistant present: No Estimated blood loss (cc): 0 Specimen: 0 Condition: stable Disposition: floor
[2017-11-28] MEDS: Heparin 25,000 UNIT/500 ML D5W 25,000 UNIT/500 ML BAG IVC SCH (16:27)
[2017-11-28] MEDS: Insulin DETEMIR 100 UNIT/ML X5UNITS SQ SCH (21:46)
[2017-11-29] MEDS: Sodium Bicarbonate 75 MEQ in 0.45 % Sodium Chloride 1,000 ML IVC SCH ×2 (04:56→22:26)
--- NOTE | 2017-11-29 07:20 | Urology Progress Note ---
Date of Encounter: 11/29/17 Time of Encounter: 07:17 - Assessment and Plan (1) Gross hematuria Current Visit: Yes Status: Acute Assessment and plan: I manually irrigated the catheter with a small clot returned. urine clear after that. plan to keep catheter and titrate irrigation off. will continue to follow closely. at this time unsure of etiology of hematuria. could be related to poorly controlled DM. Progress Note Narrative: patient seen. asleep and drowsy. no problems overnight. ivc filter placed yesterday. Objective Initial Vital Signs Temp Pulse Resp BP Pulse Ox 98.2 F 97 18 125/63 100 11/17/17 04:49 11/17/17 04:49 11/17/17 04:49 11/17/17 04:49 11/17/17 04:49 - General physical appearance Present: well developed, no distress - Abdomen Present: soft. Absent: tender - Genitourinary Present: other Urine Appearance: Present: Clear - Labs 11/28/17 05:57 11/28/17 05:57 - VTE Documentation of Mechanical Device: Intermittent pneumatic compression device Consult Discharge Plan - Plan Referrals: Wale Lam DO [Primary Care Provider] -
[2017-11-29] MEDS: Insulin LISPRO 300 UNITS/3 ML VIAL SQ SCH ×4 (07:41→22:25)
[2017-11-29] MEDS: Ascorbic Acid 500 MG TABLET PO SCH ×2 (09:16→22:28)
[2017-11-29] MEDS: Fluconazole 100 MG TABLET PO SCH (09:16)
[2017-11-29] MEDS: Aspirin Enteric Coated 81 MG Tablet PO SCH (09:16)
[2017-11-29] MEDS: Metoprolol XL (24 HR) Succ 50 MG TAB.ER.24H PO SCH (09:16)
[2017-11-29] MEDS: *HR* Acetylcysteine 20% 600 MG/3 ML ORAL SYRINGE PO SCH (09:16)
[2017-11-29] MEDS: Multivit/Ca/Min/Fe/FA 1 TAB TABLET PO SCH (09:16)
[2017-11-29] MEDS: Cefepime HCl 2,000 MG in Water for inj. (sterile) 20 ML 20 ML IVP SCH (09:17)
--- NOTE | 2017-11-29 09:25 | Infectious Disease Progress No ---
Date of Encounter: 11/29/17 Time of Encounter: 08:40 - Assessment and Plan (1) Sepsis Current Visit: Yes Status: Acute The patient originally came in with severe sepsis and progressed to septic shock , which resolved. Infectious Disease was consulted for persistent fevers and worsening leukocytosis. Tachycardia has resolved. The source of her persistent fevers is unclear. She has been on Cefepime since surgery on 11/18/17. She doesn't really participate in the exam and it's unclear if she doesn't want to or physically cannot participate. Her fevers seem to have improved since Vanc was started. Blood cultures drawn 11/17/17 were negative. Additional blood cultures drawn 11/22 are negative. Blood cultures drawn 11/25/17 are pending. Urine culture obtained on admission grew C. albicans and repeat urine culture is positive for yeast as well. Another repeat 11/24/17 is also positive for Yolanda albicans. CXR showed possible RLL PNA. CT chest non-contrast does not show pneumonia. CT abdomen/pelvis without contrast reveals no acute process. LFTs, amylase, and lipase are negative. ESR and CRP are elevated at 100 ad 204, respectively. Procalcitonin elevated at 0.69. Assume urinary source due to purulent fluid drained from ureteral stent and negative CT chest/abd/pelvis. Vancomycin IV stopped due to high vancomycin level. Check random Vancomycin level. Pharmacy to dose. Goal trough ~15. Continue Cefepime 2 grams IV Q24H. Duration of treatment depends on the clinical picture. Monitor renal function and for drug toxicity and dose-adjust antibiotics. Qualifiers: Sepsis type: sepsis due to unspecified organism Qualified Code(s): A41.9 - Sepsis, unspecified organism (2) Pneumonia Current Visit: Yes Status: Suspected CXR completed 11/24/17 showed RLL PNA vs. atelectasis. CT chest non-contrast 11/25 does not show pneumonia. Not sure if the patient is having symptoms as she does not answer ROS questions. Procalcitonin elevated at 0.69. Consider checking S. pneumo and Legionella UAT. Check RIP. Continue antibiotics as above for now. Qualifiers: Pneumonia type: due to unspecified organism Laterality: right Lung location: lower lobe of lung Qualified Code(s): J18.1 - Lobar pneumonia, unspecified organism (3) UTI (urinary tract infection) Current Visit: Yes Status: Acute Causative organism unclear. Urine culture on admission positive for C. albicans as well as repeat culture is positive for Yeast species. Repeat 11/24 also positive for C. albicans. Likely secondary to retained urine. CT of the abdomen and pelvis showed hemorrhage of the bladder and bilateral hydroureteronephrosis. CT abd/pelvis 11/25 reveals no acute process. Urology consulted. Status post cystoscopy with bilateral ureteral stent placement 11/18/17. Operative note reviewed. Purulent fluid drained from the right ureter, but no cultures were obtained. Not convinced that this is the source of the patient's fevers, but since she has bilateral ureteral stents, started Fluconazole 200mg IV x 1 dose now and 100mg IV daily since 11/25. Dose-adjusted for CrCl ~13. Switched to PO Fluconazole on 11/29. Continue PO Fluconazole. Qualifiers: Urinary tract infection type: site unspecified Hematuria presence: with hematuria Qualified Code(s): N39.0 - Urinary tract infection, site not specified; R31.9 - Hematuria, unspecified (4) Hematuria Current Visit: Yes Status: Acute Etiology unclear. Status post cystoscopy with evacuation of the clot 11/18/17 by Urology. Operative note reviewed. Large clot noted with friable bladder wall. Hematuria resolved then recurred after being placed on heparin on 11/26 for DVT in left lower extremity. Heparin stopped. IVC filter placed 11/28. Urology irrigated small blood clots from bladder this morning, urine is clear since. Management per the urology team. Qualifiers: Hematuria type: gross Qualified Code(s): R31.0 - Gross hematuria (5) Acute encephalopathy Current Visit: Yes Status: Acute Etiology unclear, likely multifactorial per Neurology team. Able to communicate, but chooses not to. CT head reveals no acute process. 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 Continue to monitor closely. Management per the neurology team. (6) Acute kidney injury superimposed on chronic kidney disease Current Visit: Yes Status: Resolved Serum creatinine 5.43 on admission. Secondary to obstruction. Improved with ureteral stents and plunkett placement followed by urology. Kidney function back to baseline. Nephrology signed-off on 11/28. Continue to trend. Dose-adjust antibiotics. Avoid nephrotoxins as able. Will need to dose Vancomycin carefully. Will ask pharmacy to assist. (7) Bilateral hydronephrosis Current Visit: Yes Status: Acute Secondary to obstruction. CT of the abdomen and pelvis 11/17/17 showed bilateral hydroureteronephrosis and hemorrhage of the bladder. Urology consulted. Status post cystoscopy with bilateral ureteral stent placement 11/18/17. (8) Septic shock Current Visit: Yes Status: Resolved (9) Anemia Current Visit: Yes Status: Acute Hgb stable around 8. Further workup and management per the primary team. Qualifiers: Anemia type: unspecified type Qualified Code(s): D64.9 - Anemia, unspecified (10) Hyperkalemia Current Visit: Yes Status: Resolved Likely secondary to TENISHA. Resolved. (11) Metabolic acidosis Current Visit: Yes Status: Resolved (12) Cardiomyopathy Current Visit: No Status: Chronic Qualifiers: Cardiomyopathy type: ischemic Qualified Code(s): I25.5 - Ischemic cardiomyopathy (13) Diabetes mellitus Current Visit: No Status: Chronic Qualifiers: Diabetes mellitus type: type 2 Diabetes mellitus group home insulin use: with group home use Diabetes mellitus complication status: with circulatory complication Diabetes mellitus complication detail: with other circulatory complications Qualified Code(s): E11.59 - Type 2 diabetes mellitus with other circulatory complications; Z79.4 - [facility] (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 Clinically does not appear cellulitis. Continue to monitor. (17) Chronic systolic heart failure Current Visit: No Status: Acute - Subjective Interval history: Patient seen and examined. Patient is resting comfortably in bed. Patient shakes her head to answer questions instead of speaking. Boyfriend is not present at this time to encourage patient to speak. No acute events overnight, no significant change in patient from yesterday. Patient denies pain, fever, chills, chest pain, shortness of breath, abdominal pain, nausea, vomiting, diarrhea. IVC filter placed yesterday. Urology irrigated small blood clots from bladder this morning, urine has been clear since. Urine is straw-colored without evidence of blood or clots in plunkett catheter bag. Infect Dis PN-Objective Data - Labs CBC & Chem 7: 11/30/17 08:48 11/30/17 08:48 Labs: Laboratory Results - last 24 hr 11/25/17 11/28/17 11/28/17 12:15 07:26 11:13 POC Glucose 166 H 161 H Procalcitonin 0.69 H 11/28/17 11/28/17 11/29/17 15:53 20:10 07:22 POC Glucose 151 H 153 H 97 Procalcitonin Cultures: Cultures 11/22/17 11:02 Blood Culture - Final Peripheral Venipuncture No growth. Final report. 11/22/17 11:02 Blood Culture - Final Peripheral Venipuncture No growth. Final report. 11/24/17 10:28 Urine Culture - Final Urine,[place] Yolanda albicans 11/25/17 12:04 Blood Culture - Preliminary Peripheral Venipuncture Culture is incubating and being continuously monitored for growth. Final report to follow. 11/25/17 12:13 Blood Culture - Preliminary Peripheral Venipuncture Culture is incubating and being continuously monitored for growth. Final report to follow. 11/22/17 10:20 Urine Culture - Final Urine,Catheterized Yolanda albicans Serology 11/21/17 11/18/17 11/18/17 Range/Units 12:26 11:54 11:54 Ur Eosinophil Smear 0 (None Seen) % Urine Creatinine 56 mg/dL Urine Sodium 55.9 mEq/L Hep Bs Antigen Nonreactive (Nonreactive) Hep Bs Antibody 0.00 mIU/mL Exam - Constitutional Vitals: Temp Pulse Resp BP Pulse Ox 99.4 F 67 16 142/65 100 11/29/17 06:45 11/29/17 06:45 11/29/17 06:45 11/29/17 06:45 11/29/17 06:45 General appearance: morbidly obese, no acute distress, no febrile, no cooperative - Head Head exam: Present: atraumatic, normal inspection, normocephalic - Eye Eye exam: Present: EOMI, normal appearance, PERRL Pupils: Present: normal accommodation - ENT ENT exam: Present: mucous membranes moist - Neck Neck exam: Present: normal inspection - Respiratory Respiratory exam: Present: CTAB. Absent: rales, respiratory distress, rhonchi, wheezes - Cardiovascular Cardiovascular exam: Present: RRR, +S1, +S2 - GI/Abdominal GI/Abdominal exam: Present: distended (obese), normal bowel sounds, soft. Absent: bruit, tenderness - Extremities Exam Extremities exam: Present: pedal edema (1+ pitting edema ). Absent: joint swelling, normal inspection (stasis dermatitis in bilateral lower extremities ) , tenderness - Neurological Exam Neurological exam: Present: alert, CN II-XII intact, oriented X3 (cannot assess due to patient uncooperative with exam ). Absent: motor sensory deficit - Psychiatric Psychiatric exam: Present: flat affect - Skin Skin exam: Present: dry, intact, normal color, warm - VTE Documentation of Mechanical Device: Intermittent pneumatic compression device Consult Discharge Plan - Plan Referrals: Wale Lam DO [Primary Care Provider] - - Attending Attestation I examined this patient and my medical decision-making was reviewed with the Resident Physician. I agree with the documented findings, disposition and treatment plan as described except to the extent set forth below.
[2017-11-29 09:28] LABS: Potassium 3.3 mEq/L (3.5-5.1)
[2017-11-29 10:07] LABS: Basophils % 0.1 %; Eosinophils # 0.2 K/mcL (0.0-0.6); Eosinophils % 2.3 %; Hematocrit 23.3 % (35.3-44.9); Hemoglobin 7.3 g/dL (11.5-15.4); Immature Granulocytes % 0.7 % (0-4); Lymphocytes # 0.9 K/mcL (0.6-4.6); Lymphocytes % 11.2 %; Mean Corpuscular HGB Conc 31.3 g/dL (31.6-35.5); Mean Corpuscular Hemoglobin 28.2 pg (28.0-33.3); Mean Platelet Volume 9.9 fL (9.4-12.4); Monocytes # 0.9 K/mcL (0.0-1.3); Monocytes % 11.5 %; Neutrophils # 6.1 K/mcL (1.6-8.9); Platelet Count 275 K/mcL (140-400); Red Blood Count 2.59 M/mcL (3.82-4.97); Red Cell Distribution Width 15.2 % (11.5-14.5); Segmented Neutrophils % 74.2 %
--- NOTE | 2017-11-29 10:57 | Vascular/Endovas Progress Note ---
Date of Encounter: 11/29/17 Time of Encounter: 09:10 - Assessment and plan (1) S/P insertion of IVC (inferior vena caval) filter Current Visit: Yes Status: Acute - Subjective Interval history: Patient has no complaint. She is more talkative and alert today than yesterday. Vital Signs, Last 4 Hours Temp Pulse Resp BP Pulse Ox 11/29/17 10:32 99.4 F 80 16 144/66 97 - Physical Examination Vascular: Present: Other (Right groin puncture site is clean and dry. There is no hematoma. There is no swelling. There is no tenderness. Dressing is intact.) Abdomen: Present: Soft, Non-tender, Other (Obese. No palpable masses.) - VTE Documentation of Mechanical Device: Intermittent pneumatic compression device Results 11/29/17 09:53 11/29/17 08:59 Lab Results, Last 24 hours 11/29/17 11/29/17 08:59 09:53 WBC 8.2 Hgb 7.3 L Hct 23.3 L Plt Count 275 Sodium 142 Potassium 3.3 L Chloride 103 Carbon Dioxide 28 BUN 60 H Creatinine 3.34 H Glucose 80 Calcium 8.0 L Consult Discharge Plan - Plan Referrals: Wale Lam DO [Primary Care Provider] -
[2017-11-29] MEDS: Miconazole 2% ointment 114 GM TUBE TP SCH (10:59)
--- NOTE | 2017-11-29 11:04 | Invasive Diagnostic Lab Proc ---
Name: Eleni Bentley Date of Study: 11/28/2017 Date: 1945 Ht: 160.0 in Medical Record#: [id number] Age: 71 Wt: 105.5 lb Gender: Female BSA: 2.06 Order #: [id number] BMI: 41.21 Physicians Performing MD: Gustavo Kolb MD, FACS Referring MD: Wale Lam DO Referring MD: Yannick Chavez MD, [facility] Staff Name Position Time In Lisa Mcnallylee RT (R) Monitor DaliRia plascencia RT (R) Scrub Diana Corey RN Pantograph Engraver Indications DVT, Unilateral Complication of Anticoagulation Procedures Performed IVC FILTER PLACEMENT Pre-Procedure Checklist Informed consent is complete signed and on chart. H&P is on chart. ID band is on and ID verified with patient. Patient NPO for procedure The procedure was described for the patient and questions were answered. Blood Pressure: 125/65 ECG is on chart. Rhythm: NSR Plan of Care Patient will tolerate the procedure without complications. Adequate level of comfort will be maintained. Hemodynamics will remain stable Patient will recover from procedure without complications. Respiratory function will be maintained. Cardiac rhythm will remain stable. Patient temperature will be maintained. Patient and/or family have verbalized understanding of the procedure. Patient Education Intravenous Access Time IV Size Location DC'd Fluid/Drip Rate Units RN 22g 1" Patent On Arrival Rt Arm Diana Corey RN Allergies Simvastatin Cortisone Fluvastatin Pitavastatin Npneieo-Eoy-Bmv Reductase Inhibitor cefazolin venom-honey bee NSAIDS (Non-Steroidal Anti-Inflamma bee venom (honey bee) GRAPE FLAVOR Penicillins Vital Signs Time BP Systolic BP Diastolic HR O2 Sats ASA 02:38 PM 02:38 PM 02:54 PM 02:32 PM 158 65 78 98 02:36 PM 151 72 106 100 02:41 PM 156 73 78 99 02:46 PM 155 64 77 97 02:51 PM 160 68 79 98 02:56 PM 156 74 75 100 03:01 PM 160 75 77 100 03:06 PM 156 69 76 99 Procedure Medications Time Medication Dose Units Method Route 02:40 PM Lidocaine 2% 10 ml Subcutaneous 02:49 PM Oxygen 2 L/min nasal cannula ASA Classification: CLASS III- Severe systemic disease (i.e. prior AMI, diabetes with vascular complications, morbid obesity) Shemar Score Preprocedure Postprocedure Activity 1- Moves 2 extremities sustained head lift Activity 1- Moves 2 extremities sustained head lift Circulation 2- SBP +/= 20 points of pre-anesthetic level Circulation 2- SBP +/= 20 points of pre-anesthetic level Consciousness 2- Awake and alert oriented x 3 Consciousness 2- Awake and alert oriented x 3 O2 Saturation 2- Able to maintain O2 satruation of 92% on room air O2 Saturation 2- Able to maintain O2 satruation of 92% on room air Respiratory 2- Able to deep breathe and cough well Respiratory 2- Able to deep breathe and cough well Total Score 9 Total Score 9 Contrast Amount: 8 ml Procedure Log Time Note Entered By 02:35 PM Bilateral Groin excoriated and open prior to clay processing labourer arrival. kk 02:35 PM Pt arrived to wetlands conservation laborer 1 at 14:35 [email or web address] 02:36 PM Meghan Ceron RT Position: Monitor Time in: 14:36 kkner 02:36 PM Ria Mcnally RT (R) Position: Scrub Time in: 14:36 kkner 02:36 PM Diana Corey RN Position: Pantograph Engraver Time in: 14:36 kkner 02:37 PM Case delayed: No kkallner :37 PM Hair removed from procedure site in procedure lab using clippers. Bilateral groin prepped with Chloraprep by Meghan Ceron RT, then patient was draped. Skin intact. kkner 02:38 PM Physician arrived 14:38 kkallner 02:38 PM ASA Class CLASS III- Severe systemic disease (i.e. prior AMI, diabetes with vascular complications, morbid obesity) [email or web address] 02:38 PM Meet and greet completed kk:38 PM Sign in performed according to hospital policy. [email or web address] 02:38 PM Procedure start 14:38 kkallner 02:38 PM Time out perfomed kkall 02:38 PM Time: 14:38 Is patient comfortable and pain free?: Yes kkall 02:38 PM Time: 14:38LOC: 4 = Oriented but drowsy kkall 02:39 PM Ultrasound, Sonosite, utilized to obtain vascular access kkallner 02:39 PM IV Supplies used: J loop Angio Cath. kkallner 02:39 PM Patient charges- Angio tray pack, Pulse Oximetry and ACIST tubing and transducer kk 02:41 PM 14:40 10 ml Lidocaine 2% to right groin Subcutaneous Given By Gustavo Kolb MD, FACS kkner 02:42 PM Patient Charges- SN/LOT#[id number] fem celect pt ,Tray Pack and Pulse Oximetry. kk 02:42 PM Access obtain and IVC Filter sheath inserted Rt Femoral vein. kk 02:43 PM Inferiorvenacavagram performed. kk 02:47 PM Isovue 300- 150ml contrast 3 ml given by Gustavo Kolb MD, FACS kkner 02:49 PM IVC Filter deployed into the inferior vena cava kk 02:35 PM 14:49 Oxygen at 2 L/min per nasal cannula by Diana Corey RN 02:54 PM Time: 14:38LOC: 4 = Oriented but drowsy kk 02:54 PM Time: 14:38 Is patient comfortable and pain free?: Yes 02:57 PM Isovue 300- 150ml contrast 3 ml given by Gustavo Kolb MD, FACS kkner 02:57 PM second IVC Filter inserted into the inferior vena cava above the first filter per DR Kolb kkner 02:58 PM Inferiorvenacavagram performed. 02:58 PM Isovue 300- 150ml contrast 2 ml given by Gustavo Kolb MD, FACS kkner 02:59 PM Patient Charges- Cook Celect IVC Filter SN/LOT# [id number] 1,Tray Pack and Pulse Oximetry. 02:59 PM Procedure completed at 14:59 03:00 PM Sign Out completed: Radiation Dose 810.57 mGy Fluoro Time: 5.1 minutes. Isovue 300- 150ml contrast 8 ml given by Gustavo Kolb MD, FACS. Complications: .none Confirmed administered medications:yes kkner 03:00 PM Isovue 300- 150ml,1 bottle(s) used. kkner 03:00 PM Estimated Blood Loss: minimal kkallner 03:00 PM Post Blood Pressure: 156/74 kkallner 03:00 PM Post EKG: Paced kkallner 03:01 PM Information taught: IVC filter kkallner 03:01 PM Education needs: Procedure, Plan of Care, and Responsibilities of Patient in Care kkallner 03:01 PM Learning barriers: Cognitive kkallner 03:02 PM Education methods: Verbal kkallner 03:02 PM Education evaluation: Able to repeat information kkallner 03:02 PM 15:02 Post Pulses: Bilateral PT 2+. kkallner 03:02 PM 15:02 Post Pulses: Bilateral DP 1+. kkallner 03:02 PM 15:02 Post Pulses: Bilateral radial 2+. kkallner 03:02 PM Patient pain level 0/10 kkallner 03:04 PM Report given to Christel PEACE. Pt taken to 2A, Room # 16 15:03 kkallner 03:04 PM Delay to floor: No kkallner 03:04 PM Pt taken to 2A Room# 16 kkallner 03:04 PM Family placed in consult room. [email or web address] 03:04 PM Complications: None kkallner 03:04 PM Fluoro Time: 5.1 minutes kkallner 03:04 PM Isovue 300- 150ml contrast 8 ml given by Gustavo Kolb MD, FACS kkallner 03:04 PM Radiation Dose 810.57 mGy kkallner 03:09 PM Time: 14:54 Is patient comfortable and pain free?: Yes [email or web address] 03:09 PM Time: 14:54LOC: 4 = Oriented but drowsy kkallner 03:10 PM Opsite applied kkallner 03:10 PM Site status No bleeding/hematoma - Rt Groin as reported by Ria Mcnally RT (R) at 15:10 [email or web address] 03:10 PM Arterial sheath pulled using manual compression for 8 minutes by Ria Mcnally RT (R) kkallner 03:10 PM Patient out of room 15:10 [email or web address] 02:30 PM PVIStat 02:30 PM Vitals capture started with the following parameters, Patient=Adult, Interval=5 min, Initial Gnywjmrm=768 mmHg, Deflation Rate=3 mmHg, Cuff placed on Right Arm 02:30 PM Recorded ECG: HR=82 Condition=Condition 1 02:32 PM HR=78 bpm, LHTR=931/65 mmhg, SpO2=98.0 %, Resp=11 B/min 02:36 PM PY=092 bpm, IEVY=722/72 mmhg, YgV1=519.0 %, Resp=10 B/min 02:41 PM HR=78 bpm, YCYX=735/73 mmhg, SpO2=99.0 %, Resp=30 B/min 02:46 PM HR=77 bpm, VMER=003/64 mmhg, SpO2=97.0 %, Resp=19 B/min 02:51 PM HR=79 bpm, VQTT=637/68 mmhg, SpO2=98 %, Resp=19 B/min 02:56 PM HR=75 bpm, GEPM=549/74 mmhg, WkR6=377 %, Resp=23 B/min 03:01 PM HR=77 bpm, SIPX=967/75 mmhg, NeC4=931 %, Resp=15 B/min 03:06 PM HR=76 bpm, ORXT=790/69 mmhg, SpO2=99.0 %, Resp=19 B/min 03:11 PM Vitals capture stopped. Post Procedure Information Blood Pressure: 156/74 mmHg Rhythm: Paced Post procedure instructions given Report Given To: bertram Site Checks Time Location Status Staff Sheath In? Note 3:10:00 PM Rt Groin No bleeding/hematoma Ria Mcnally RT (R) Pulses Time Site Pre Procedure Post Procedure Note 3:02:00 PM Bilateral PT 2+ 3:02:00 PM Bilateral DP 1+ 3:02:00 PM Bilateral radial 2+ Updated by Summer Tadeo RT (R) on 11/29/2017 10:57:03 AM RT Андрей electronically signed on 11/29/2017 10:58:26 AM with status of Final
[2017-11-29] MEDS: Acetaminophen 325 MG TABLET PO PRN (11:18)
--- NOTE | 2017-11-29 19:14 | Internal Med Progress Note ---
Hospitalist Progress Note - Encounter Date of Encounter: 11/29/17 Time of Encounter: 11:00 - Subjective Interval History: Leukocytosis has resolved and patient afebrile Renal function slowly improving - Exam Vitals: Temp Pulse Resp BP Pulse Ox 98.6 F 67 16 150/67 99 11/29/17 16:39 11/29/17 16:39 11/29/17 16:39 11/29/17 16:39 11/29/17 16:39 Exam: Gen.: Nonacute distress, alert and oriented 3 ENT: Mucosal membranes moist Respiratory: Lungs are clear to auscultation bilaterally without any wheezing rhonchi or rales Cardiovascular: Normal S1 and S2 regular rate rhythm no murmurs rubs or gallops Abdomen: Soft, nontender and nondistended with positive bowel sounds Extremities: No lower extremity edema Skin: Normal color - Assessment and Plan (1) Pneumonia Current Visit: Yes Status: Suspected Assessment and Plan: Patient's leukocytosis has resolved and is afebrile Will continue day 11 cefepime and vancomycin was stopped per infectious disease recommendations. (2) UTI (urinary tract infection) Current Visit: Yes Status: Acute Assessment and Plan: Continue day 5 Diflucan (3) Acute kidney injury superimposed on chronic kidney disease Current Visit: Yes Status: Resolved (4) Hypertension Current Visit: No Status: Chronic Assessment and Plan: - Pressure-controlled. - Continue as needed hydralazine (5) Hematuria Current Visit: Yes Status: Acute Assessment and Plan: s/p cystoscopy and b/l ureteral stent placement , no evidence for any obvious tumors patient currently stable and H&H relatively stable To maintain Eliz[place] until discharge per urology (6) Type 2 diabetes mellitus Current Visit: No Status: Acute Assessment and Plan: Continue basal and sliding scale insulin coverage. (7) Chronic systolic heart failure Current Visit: No Status: Acute Assessment and Plan: Patient has PPM and AICD. Continue metoprolol. (8) Hydronephrosis Current Visit: No Status: Acute Assessment and Plan: See plan for hematuria. Urology following. (9) Acute encephalopathy Current Visit: Yes Status: Acute Assessment and Plan: Resolved (10) DVT (deep venous thrombosis) Current Visit: Yes Status: Acute Assessment and Plan: DVT in the left lower extremity Vascular consultation was obtained in case IVC filter was needed if she was contraindicated for anticoagulation. Cardiovascular reintroducing to cognition and monitor for any hematuria. Continue heparin. (11) DVT prophylaxis Current Visit: No Status: Acute Assessment and Plan: Heparin as above - Time Spent with Patient Total time spent is greater than 50% in coordination of care (as documented) at patient's floor/unit and/or counseling patient: Internal Medicine: Result - Labs CBC & Chem 7: 11/29/17 09:53 11/29/17 08:59 Labs: Short CBC 11/29/17 Range/Units 09:53 WBC 8.2 (4.3-11.1) K/mcL Hgb 7.3 L (11.5-15.4) g/dL Hct 23.3 L (35.3-44.9) % Plt Count 275 (140-400) K/mcL Neutrophils # 6.1 (1.6-8.9) K/mcL BMP 11/29/17 08:59 Sodium 142 Potassium 3.3 L Chloride 103 Carbon Dioxide 28 BUN 60 H Creatinine 3.34 H Glucose 80 Calcium 8.0 L - ABG Interpretation ABG results: ABG ABG pH 7.41 pH Units (7.32-7.45) 11/17/17 15:41 ABG pCO2 27 mmHg (35-45) L 11/17/17 15:41 ABG pO2 80 mmHg (85-104) L 11/17/17 15:41 ABG O2 Saturation 96 % (95-98) 11/17/17 15:41 PT/INR, D-dimer PT 14.0 Seconds (9.4-12.1) H 11/25/17 18:26 - VTE Documentation of Mechanical Device: Intermittent pneumatic compression device Consult Discharge Plan - Plan Referrals: Wale Lam DO [Primary Care Provider] - (1) Pneumonia Qualifiers: Pneumonia type: due to unspecified organism Laterality: right Lung location : lower lobe of lung Qualified Code(s): J18.1 - Lobar pneumonia, unspecified organism (2) UTI (urinary tract infection) Qualifiers: Urinary tract infection type: site unspecified Hematuria presence: with hematuria Qualified Code(s): N39.0 - Urinary tract infection, site not specified; R31.9 - Hematuria, unspecified (4) Hypertension Qualifiers: Hypertension type: essential hypertension Qualified Code(s): I10 - Essential (primary) hypertension (5) Hematuria Qualifiers: Hematuria type: gross Qualified Code(s): R31.0 - Gross hematuria (6) Type 2 diabetes mellitus Qualifiers: Diabetes mellitus oysterman insulin use: with half-way use Diabetes mellitus complication status: with kidney complications Diabetes mellitus complication detail: with chronic kidney disease Chronic kidney disease stage: stage 4 (severe) Qualified Code(s): E11.22 - Type 2 diabetes mellitus with diabetic chronic kidney disease; N18.4 - Chronic kidney disease, stage 4 (severe ); Z79.4 - prison (current) use of insulin (8) Hydronephrosis Qualifiers: Hydronephrosis type: unspecified Qualified Code(s): N13.30 - Unspecified hydronephrosis (10) DVT (deep venous thrombosis) Qualifiers: DVT location: lower extremity Affected thrombotic vein of extremity: femoral Chronicity: acute Laterality: left Qualified Code(s): I82.412 - Acute embolism and thrombosis of left femoral vein
[2017-11-29] MEDS: Heparin 25,000 UNIT/500 ML D5W 25,000 UNIT/500 ML BAG IVC SCH (22:24)
[2017-11-29] MEDS: Insulin DETEMIR 100 UNIT/ML X5UNITS SQ SCH (22:26)
[2017-11-30] MEDS: Heparin 25,000 UNIT/500 ML D5W 25,000 UNIT/500 ML BAG IVC SCH ×2 (03:11→21:45)
[2017-11-30] MEDS: Insulin LISPRO 300 UNITS/3 ML VIAL SQ SCH ×4 (08:48→21:45)
[2017-11-30] MEDS: Metoprolol XL (24 HR) Succ 50 MG TAB.ER.24H PO SCH (08:56)
[2017-11-30] MEDS: Aspirin Enteric Coated 81 MG Tablet PO SCH (08:56)
[2017-11-30] MEDS: Ascorbic Acid 500 MG TABLET PO SCH ×2 (08:56→23:15)
[2017-11-30] MEDS: Multivit/Ca/Min/Fe/FA 1 TAB TABLET PO SCH (08:56)
[2017-11-30] MEDS: Cefepime HCl 2,000 MG in Water for inj. (sterile) 20 ML 20 ML IVP SCH (08:56)
[2017-11-30] MEDS: Fluconazole 100 MG TABLET PO SCH (08:56)
[2017-11-30] MEDS: Miconazole 2% ointment 114 GM TUBE TP SCH (08:57)
--- NOTE | 2017-11-30 09:25 | Infectious Disease Progress No ---
Date of Encounter: 11/30/17 Time of Encounter: 08:30 - Assessment and Plan (1) Sepsis Current Visit: Yes Status: Acute The patient originally came in with severe sepsis and progressed to septic shock , which resolved. Infectious Disease was consulted for persistent fevers and worsening leukocytosis. Tachycardia has resolved. The source of her persistent fevers is unclear. Assume urinary source due to purulent fluid drained from ureteral stent and negative CT chest/abd/pelvis. She has been on Cefepime since surgery on 11/18/17. She doesn't really participate in the exam and it's unclear if she doesn't want to or physically cannot participate. Her fevers seem to have improved since Vanc was started. Blood cultures drawn 11/17/17 were negative. Additional blood cultures drawn 11/22 are negative. Blood cultures drawn 11/25/17 are negative. Urine culture obtained on admission grew C. albicans and repeat urine culture is positive for yeast as well. Another repeat 11/24/17 is also positive for Yolanda albicans. CXR showed possible RLL PNA. CT chest non-contrast does not show pneumonia. CT abdomen/pelvis without contrast reveals no acute process. LFTs, amylase, and lipase are negative. ESR and CRP are elevated at 100 ad 204, respectively. Procalcitonin elevated at 0.69. Stop Vancomycin IV. Patient received 7 days therapeutic Vanc. Random Vanc level today is 22. Check random Vancomycin level. Stop Cefepime. Patient received 11 days of Cefepime. Duration of treatment depends on the clinical picture. Monitor renal function and for drug toxicity and dose-adjust antibiotics. Qualifiers: Sepsis type: sepsis due to unspecified organism Qualified Code(s): A41.9 - Sepsis, unspecified organism (2) Pneumonia Current Visit: Yes Status: Suspected CXR completed 11/24/17 showed RLL PNA vs. atelectasis. CT chest non-contrast 11/25 does not show pneumonia. Procalcitonin elevated at 0.69. Stop antibiotics as above. Qualifiers: Pneumonia type: due to unspecified organism Laterality: right Lung location: lower lobe of lung Qualified Code(s): J18.1 - Lobar pneumonia, unspecified organism (3) UTI (urinary tract infection) Current Visit: Yes Status: Acute Causative organism unclear. Urine culture on admission positive for C. albicans as well as repeat culture is positive for Yeast species. Repeat 11/24 also positive for C. albicans. Likely secondary to retained urine. CT of the abdomen and pelvis showed hemorrhage of the bladder and bilateral hydroureteronephrosis. CT abd/pelvis 11/25 reveals no acute process. Urology consulted. Status post cystoscopy with bilateral ureteral stent placement 11/18/17. Operative note reviewed. Purulent fluid drained from the right ureter, but no cultures were obtained. Not convinced that this is the source of the patient's fevers, but since she has bilateral ureteral stents, started Fluconazole 200mg IV x 1 dose now and 100mg IV daily since 11/25. Dose-adjusted for CrCl ~13. Switched to PO Fluconazole on 11/29. Continue PO Fluconazole. Qualifiers: Urinary tract infection type: site unspecified Hematuria presence: with hematuria Qualified Code(s): N39.0 - Urinary tract infection, site not specified; R31.9 - Hematuria, unspecified (4) Hematuria Current Visit: Yes Status: Acute Etiology unclear. Status post cystoscopy with evacuation of the clot 11/18/17 by Urology. Operative note reviewed. Large clot noted with friable bladder wall. Hematuria resolved. Management per the urology team. Qualifiers: Hematuria type: gross Qualified Code(s): R31.0 - Gross hematuria (5) Acute encephalopathy Current Visit: Yes Status: Acute Etiology unclear, likely multifactorial per Neurology team. Able to communicate, but chooses not to. CT head reveals no acute process. No nuchal rigidity or meningismus to indicate STONEWORKING SANDER infection. Continue to monitor closely. Neurology signed off on 11/29. (6) Acute kidney injury superimposed on chronic kidney disease Current Visit: Yes Status: Resolved Serum creatinine 5.43 on admission. Secondary to obstruction. Improved with ureteral stents and plunkett placement followed by urology. Kidney function slowly worsening. Nephrology signed-off on 11/28. Continue to trend. Dose-adjust antibiotics. Avoid nephrotoxins as able. Stop Vancomycin. (7) Bilateral hydronephrosis Current Visit: Yes Status: Acute Secondary to obstruction. CT of the abdomen and pelvis 11/17/17 showed bilateral hydroureteronephrosis and hemorrhage of the bladder. Urology consulted. Status post cystoscopy with bilateral ureteral stent placement 11/18/17. (8) Septic shock Current Visit: Yes Status: Resolved (9) Anemia Current Visit: Yes Status: Acute Hgb down to 6.4 today. Further workup and management per the primary team. Qualifiers: Anemia type: unspecified type Qualified Code(s): D64.9 - Anemia, unspecified (10) Hyperkalemia Current Visit: Yes Status: Resolved Likely secondary to TENISHA. Resolved. (11) Metabolic acidosis Current Visit: Yes Status: Resolved (12) Cardiomyopathy Current Visit: No Status: Chronic Qualifiers: Cardiomyopathy type: ischemic Qualified Code(s): I25.5 - Ischemic cardiomyopathy (13) Diabetes mellitus Current Visit: No Status: Chronic Qualifiers: Diabetes mellitus type: type 2 Diabetes mellitus usp insulin use: with superintendent terminal use Diabetes mellitus complication status: with circulatory complication Diabetes mellitus complication detail: with other circulatory complications Qualified Code(s): E11.59 - Type 2 diabetes mellitus with other circulatory complications; Z79.4 - half-way (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 Clinically does not appear cellulitis. Continue to monitor. (17) Chronic systolic heart failure Current Visit: No Status: Acute - Subjective Interval history: Patient seen and examined. Patient is resting comfortably in bed and eating breakfast. No acute events overnight, no significant change in patient from yesterday. ROS cannot be reviewed due to patient not replying. Boyfriend is present in room. Urine is straw-colored without evidence of blood or clots in plunkett catheter bag. Infect Dis PN-Objective Data - Labs CBC & Chem 7: 11/30/17 08:48 11/30/17 08:48 Labs: Laboratory Results - last 24 hr 11/29/17 11/29/17 11/29/17 08:59 09:53 11:08 WBC 8.2 RBC 2.59 L Hgb 7.3 L Hct 23.3 L MCV 90.0 MCH 28.2 MCHC 31.3 L RDW 15.2 H Plt Count 275 MPV 9.9 Immature Gran % 0.7 Seg Neutrophils % 74.2 Lymphocytes % 11.2 Monocytes % 11.5 Eosinophils % 2.3 Basophils % 0.1 Neutrophils # 6.1 Lymphocytes # 0.9 Monocytes # 0.9 Eosinophils # 0.2 Basophils # 0.0 Sodium 142 Potassium 3.3 L Chloride 103 Carbon Dioxide 28 BUN 60 H Creatinine 3.34 H Est GFR ( Amer) 17 L Est GFR (Non-Af Amer) 14 L BUN/Creatinine Ratio 18 Glucose 80 POC Glucose 105 H Calculated Osmolality 310 H Calcium 8.0 L 11/29/17 16:46 WBC RBC Hgb Hct MCV MCH MCHC RDW Plt Count MPV Immature Gran % Seg Neutrophils % Lymphocytes % Monocytes % Eosinophils % Basophils % Neutrophils # Lymphocytes # Monocytes # Eosinophils # Basophils # Sodium Potassium Chloride Carbon Dioxide BUN Creatinine Est GFR ( Amer) Est GFR (Non-Af Amer) BUN/Creatinine Ratio Glucose POC Glucose 192 H Calculated Osmolality Calcium Cultures: Cultures 11/22/17 11:02 Blood Culture - Final Peripheral Venipuncture No growth. Final report. 11/22/17 11:02 Blood Culture - Final Peripheral Venipuncture No growth. Final report. 11/24/17 10:28 Urine Culture - Final Urine,[place] Yolanda albicans 11/25/17 12:04 Blood Culture - Preliminary Peripheral Venipuncture Culture is incubating and being continuously monitored for growth. Final report to follow. 11/25/17 12:13 Blood Culture - Preliminary Peripheral Venipuncture Culture is incubating and being continuously monitored for growth. Final report to follow. 11/22/17 10:20 Urine Culture - Final Urine,Catheterized Yolanda albicans Serology 11/21/17 11/18/17 11/18/17 Range/Units 12:26 11:54 11:54 Ur Eosinophil Smear 0 (None Seen) % Urine Creatinine 56 mg/dL Urine Sodium 55.9 mEq/L Hep Bs Antigen Nonreactive (Nonreactive) Hep Bs Antibody 0.00 mIU/mL Exam - Constitutional Vitals: Temp Pulse Resp BP Pulse Ox 98.6 F 61 16 133/66 97 11/30/17 06:30 11/30/17 06:30 11/30/17 06:30 11/30/17 06:30 11/30/17 06:30 General appearance: morbidly obese, no acute distress, no febrile, no cooperative - Head Head exam: Present: atraumatic, normal inspection, normocephalic - Eye Eye exam: Present: EOMI, normal appearance, PERRL Pupils: Present: normal accommodation - Neck Neck exam: Present: normal inspection - Respiratory Respiratory exam: Present: CTAB. Absent: rales, respiratory distress, rhonchi, wheezes - Cardiovascular Cardiovascular exam: Present: RRR, +S1, +S2 - GI/Abdominal GI/Abdominal exam: Present: distended (obese), normal bowel sounds, soft. Absent: tenderness - Extremities Exam Extremities exam: Present: pedal edema (1+ pitting edema). Absent: joint swelling, normal inspection (stasis dermatitis in bilateral lower extremities), tenderness - Neurological Exam Neurological exam: Present: alert, no focal deficits. Absent: oriented X3 ( cannot assess due to patient uncooperative with exam) - Skin Skin exam: Present: dry, intact, normal color, warm - VTE Documentation of Mechanical Device: Intermittent pneumatic compression device Consult Discharge Plan - Plan Referrals: Wale Lam DO [Primary Care Provider] - - Attending Attestation I examined this patient and my medical decision-making was reviewed with the Resident Physician. I agree with the documented findings, disposition and treatment plan as described except to the extent set forth below.
[2017-11-30 09:33] LABS: Basophils % 0.2 %; Eosinophils # 0.2 K/mcL (0.0-0.6); Hematocrit 20.9 % (35.3-44.9); Hemoglobin 6.4 g/dL (11.5-15.4); Immature Granulocytes % 0.6 % (0-4); Lymphocytes # 1.1 K/mcL (0.6-4.6); Lymphocytes % 16.9 %; Mean Corpuscular HGB Conc 30.6 g/dL (31.6-35.5); Mean Corpuscular Hemoglobin 27.9 pg (28.0-33.3); Mean Corpuscular Volume 91.3 fL (83.0-100.0); Mean Platelet Volume 10.3 fL (9.4-12.4); Monocytes # 0.7 K/mcL (0.0-1.3); Monocytes % 10.2 %; Neutrophils # 4.4 K/mcL (1.6-8.9); Platelet Count 273 K/mcL (140-400); Red Blood Count 2.29 M/mcL (3.82-4.97); Red Cell Distribution Width 15.4 % (11.5-14.5); Segmented Neutrophils % 69.1 %
[2017-11-30 09:56] LABS: Calcium 8.1 mg/dL (8.6-10.3); Potassium 3.4 mEq/L (3.5-5.1)
--- NOTE | 2017-11-30 10:16 | Neurology Progress Note ---
Date of Encounter: 11/30/17 Time of Encounter: 10:12 Assessment and Plan (1) Metabolic encephalopathy Current Visit: Yes Status: Acute Patient appears encephalopathic to me. Able to talk but not willing to engage conversation. Patient not cooperative but able to communicate to her . No focal neurological deficits so far. No more leucocytosis but renal function has been declining. 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 Will sign off at this time. Will consult at your request Subjective Principal diagnosis: Hematuria, septic shock Interval history: Patient seen and examined. Again she is wide awake but she remains silent most of the time. She makes eye contact and then avoids it so it appears she volitionally avoids contact. When asked what her name is she replied ' I am okay' as if she is trying let him know that she is not going to answer my question. other than that when asking her questions she makes eye contact but does not answer and then avoids it. No focal deficits, is able to squeeze hands both sides. Objective - Constitutional Vitals: Temp Pulse Resp BP Pulse Ox 98.6 F 61 16 133/66 97 11/30/17 06:30 11/30/17 06:30 11/30/17 06:30 11/30/17 06:30 11/30/17 06:30 - Neurological Exam Sensorimotor examination: Present: other (Difficulty to assess due to patient uncooperative) Motor Examination: Present: other (Hand robot programmer equal, leg weakness noted, able to wiggle toes bilaterally. Other than that patient not following commands) Motor examination - right side: 3/5: toe extension (EHL), plantarflexion, 4/5: station tender Motor examination - left side: 3/5: toe extension (EHL), plantarflexion, 4/5: station tender Sensation intact: Present: intact (Unable to assess due to patient being uncooperative) Posture: Present: other (None, specifically, no nuchal rigidity. ) Reflex and gait examination: other (Gait not assessed) Reflexes: Biceps: 3+, Triceps: 3+, Brachioradialis: 3+, Patella: 3+, Achilles: 3 + Mental Status Examination: Present: awake, alert, oriented to person (Patient not cooperative), opens eyes to voice, makes eye contact, follows simple commands, answers questions by nodding yes or no Cranial nerve examination: Present: PERRL, EOMI (Patient not cooperative), visual romo intact (Unable to assess), corneal reflexes brisk symmetrically, no facial asymmetry is present, gag reflex intact, tongue protrudes midline ( Patient not cooperative) - VTE Documentation of Mechanical Device: Intermittent pneumatic compression device Results - Laboratory Findings CBC and BMP: 11/30/17 08:48 11/30/17 08:48 Abnormal lab findings: Abnormal lab results RBC 2.29 M/mcL (3.82-4.97) L 11/30/17 08:48 Hgb 6.4 g/dL (11.5-15.4) L 11/30/17 08:48 Hct 20.9 % (35.3-44.9) L 11/30/17 08:48 MCH 27.9 pg (28.0-33.3) L 11/30/17 08:48 MCHC 30.6 g/dL (31.6-35.5) L 11/30/17 08:48 RDW 15.4 % (11.5-14.5) H 11/30/17 08:48 Band Neutrophils % 17.0 % (0-4) H 11/19/17 06:21 ESR 100 mm/hr (0-15) H 11/25/17 12:15 PT 14.0 Seconds (9.4-12.1) H 11/25/17 18:26 ABG pCO2 27 mmHg (35-45) L 11/17/17 15:41 ABG pO2 80 mmHg (85-104) L 11/17/17 15:41 ABG HCO3 17 mEq/L (21-27) L 11/17/17 15:41 ABG Total CO2 18 mEq/L (20-26) L 11/17/17 15:41 ABG Base Excess -7 mEq/L (-2 to 3) L 11/17/17 15:41 Potassium 3.4 mEq/L (3.5-5.1) L 11/30/17 08:48 Carbon Dioxide 30 mEq/L (23-29) H 11/30/17 08:48 BUN 60 mg/dL (8-23) H 11/30/17 08:48 Creatinine 3.74 mg/dL (0.60-1.20) H 11/30/17 08:48 Est GFR ( Amer) 14 (> 60) L 11/30/17 08:48 Est GFR (Non-Af Amer) 12 (> 60) L 11/30/17 08:48 Glucose 179 mg/dL (70-105) H 11/30/17 08:48 POC Glucose 192 mg/dL (70-99) H 11/29/17 16:46 Calculated Osmolality 313 (280-300) H 11/30/17 08:48 Calcium 8.1 mg/dL (8.6-10.3) L 11/30/17 08:48 Venous Ioniz Calcium 1.01 mmol/L (1.15-1.35) L 11/17/17 16:17 Iron 13 mcg/dL (50-170) L 11/25/17 04:00 % Saturation 7 % (15-50) L 11/25/17 04:00 Transferrin 141 mg/dL (203-362) L 11/25/17 04:00 Alkaline Phosphatase 122 Units/L (34-104) H 11/25/17 12:15 C-Reactive Protein 204 mg/L (Less than 10) H 11/25/17 12:15 Albumin 2.7 g/dL (3.5-5.7) L 11/28/17 05:57 Globulin 3.9 g/dL (2.4-3.5) H 11/25/17 12:15 Albumin/Globulin Ratio 0.6 (1.1-2.2) L 11/25/17 12:15 Amylase 20 Units/L (29-103) L 11/25/17 12:15 Lipase 8 Units/L (11-82) L 11/25/17 12:15 Folate > 22.3 ng/mL (3.0-16.0) H 11/25/17 04:00 Procalcitonin 0.69 ng/mL (<=0.07) H 11/25/17 12:15 Ur Specimen Adequacy See below A 11/17/17 04:58 Urine Color Red (Yellow) A 11/17/17 04:58 Ur Specific [place] > 1.030 (1.010-1.025) H 11/17/17 04:58 Urine Protein >=1000 mg/dL (Neg-Trace) H 11/17/17 04:58 Urine Ketones Trace mg/dL (Negative) H 11/17/17 04:58 Urine Blood Large (Negative) H 11/17/17 04:58 Urine Nitrite Positive (Negative) A 11/17/17 04:58 Urine Bilirubin Moderate (Negative) H 11/17/17 04:58 Ur Leukocyte Esterase Small (Negative) H 11/17/17 04:58 Ur Culture Indicated? YES (NO) A 11/17/17 04:58 Vancomycin Trough 43 mcg/mL (5-10) H 11/27/17 08:49 Consult Discharge Plan - Plan Referrals: Wale Lam DO [Primary Care Provider] -
--- NOTE | 2017-11-30 10:58 | Urology Progress Note ---
Date of Encounter: 11/30/17 Time of Encounter: 10:57 - Assessment and Plan (1) Gross hematuria Current Visit: Yes Status: Acute Assessment and plan: Patient's gross hematuria has resolved. Recommend to keep catheter at least another couple of days. Okay to remove prior to discharge. Patient will need follow-up with urology in the next 2-3 weeks. Call with any questions. Progress Note Narrative: Patient seen this morning. Catheter clear off irrigation. Objective Initial Vital Signs Temp Pulse Resp BP Pulse Ox 98.2 F 97 18 125/63 100 11/17/17 04:49 11/17/17 04:49 11/17/17 04:49 11/17/17 04:49 11/17/17 04:49 - General physical appearance Present: well developed, no distress - Abdomen Present: soft. Absent: tender - Genitourinary Urine Appearance: Present: Clear - Labs 11/30/17 08:48 11/30/17 08:48 Diabetes panel 11/30/17 Range/Units 08:48 Sodium 141 (136-145) mEq/L Potassium 3.4 L (3.5-5.1) mEq/L Chloride 101 (98-107) mEq/L Carbon Dioxide 30 H (23-29) mEq/L BUN 60 H (8-23) mg/dL Creatinine 3.74 H (0.60-1.20) mg/dL Glucose 179 H (70-105) mg/dL Calcium 8.1 L (8.6-10.3) mg/dL Calcium panel 11/30/17 Range/Units 08:48 Calcium 8.1 L (8.6-10.3) mg/dL Pituitary panel 11/30/17 Range/Units 08:48 Sodium 141 (136-145) mEq/L Potassium 3.4 L (3.5-5.1) mEq/L Chloride 101 (98-107) mEq/L Carbon Dioxide 30 H (23-29) mEq/L BUN 60 H (8-23) mg/dL Creatinine 3.74 H (0.60-1.20) mg/dL Glucose 179 H (70-105) mg/dL Calcium 8.1 L (8.6-10.3) mg/dL Adrenal panel 11/30/17 Range/Units 08:48 Sodium 141 (136-145) mEq/L Potassium 3.4 L (3.5-5.1) mEq/L Chloride 101 (98-107) mEq/L Carbon Dioxide 30 H (23-29) mEq/L BUN 60 H (8-23) mg/dL Creatinine 3.74 H (0.60-1.20) mg/dL Glucose 179 H (70-105) mg/dL Calcium 8.1 L (8.6-10.3) mg/dL - VTE Documentation of Mechanical Device: Intermittent pneumatic compression device Consult Discharge Plan - Plan Referrals: Wale Lam DO [Primary Care Provider] -
[2017-11-30] MEDS ORDERED: Furosemide 20 MG/2 ML VIAL IVP ONE (14:12)
[2017-11-30] MEDS ORDERED: 0.9 % Sodium Chloride 250 ML ONE ×2 (15:40→21:53)
--- NOTE | 2017-11-30 18:51 | Internal Med Progress Note ---
Hospitalist Progress Note - Encounter Date of Encounter: 11/30/17 Time of Encounter: 11:00 - Subjective Interval History: Patient does not communicate so history difficult to obtain She has not been eating and nutrition is a concern Leukocytosis has resolved and patient afebrile Renal function slowly improving - Exam Vitals: Temp Pulse Resp BP Pulse Ox 98.6 F 71 18 147/78 96 11/30/17 16:23 11/30/17 16:23 11/30/17 16:23 11/30/17 16:23 11/30/17 16:23 Exam: Gen.: Nonacute distress, patient does not communicate ENT: Mucosal membranes moist Respiratory: Lungs are clear to auscultation bilaterally without any wheezing rhonchi or rales Cardiovascular: Normal S1 and S2 regular rate rhythm no murmurs rubs or gallops Abdomen: Soft, nontender and nondistended with positive bowel sounds Extremities: No lower extremity edema Skin: Normal color - Assessment and Plan (1) Anemia Current Visit: Yes Status: Acute Assessment and Plan: Patient with a hemoglobin of 6.4 this morning around 10.6 on admission She was transfused 2 units of packed red blood cells today and will monitor (2) Acute encephalopathy Current Visit: Yes Status: Acute Assessment and Plan: Neurology was consulted with no further recommendations Patient not able to obtain MRI but neurology.DIRECTOR ERP pathology. No nuchal rigidity or meningismus to indicate DIRECTOR ERP infection per infectious disease Continue to monitor (3) Pneumonia Current Visit: Yes Status: Suspected Assessment and Plan: CT of the chest did not show pneumonia and patient is afebrile without leukocytosis therefore antibiotics discontinued per infectious disease recommendations. (4) UTI (urinary tract infection) Current Visit: Yes Status: Acute Assessment and Plan: Continue day 6 Diflucan (5) Acute kidney injury superimposed on chronic kidney disease Current Visit: Yes Status: Resolved Assessment and Plan: - Acute kidney injury likely due to obstructive uropathy with b/l hydroureteronehrsis and is currently s/p cystoscopy and b/l tent placement. - Creatinine trending down. - Avoid nephrotoxic medications. - At the moment there is no indication for dialysis. Nephro following. - Continue IV fluids and daily BMP. (6) Hypertension Current Visit: No Status: Chronic Assessment and Plan: - Pressure-controlled. - Continue as needed hydralazine (7) Hematuria Current Visit: Yes Status: Acute Assessment and Plan: s/p cystoscopy and b/l ureteral stent placement , no evidence for any obvious tumors patient currently stable and H&H relatively stable To maintain [place] until discharge per urology (8) Type 2 diabetes mellitus Current Visit: No Status: Acute Assessment and Plan: Continue basal and sliding scale insulin coverage. (9) Hydronephrosis Current Visit: No Status: Acute Assessment and Plan: See plan for hematuria. Urology following. (10) Chronic systolic heart failure Current Visit: No Status: Acute Assessment and Plan: Patient has PPM and AICD. Continue metoprolol. (11) DVT (deep venous thrombosis) Current Visit: Yes Status: Acute Assessment and Plan: DVT in the left lower extremity Vascular consultation was obtained in case IVC filter was needed if she was contraindicated for anticoagulation. Cardiovascular reintroducing to cognition and monitor for any hematuria. Continue heparin. (12) DVT prophylaxis Current Visit: No Status: Acute Assessment and Plan: Heparin as above - Time Spent with Patient Total time spent is greater than 50% in coordination of care (as documented) at patient's floor/unit and/or counseling patient: Internal Medicine: Result - Labs CBC & Chem 7: 11/30/17 08:48 11/30/17 08:48 Labs: Short CBC 11/30/17 Range/Units 08:48 WBC 6.4 (4.3-11.1) K/mcL Hgb 6.4 L (11.5-15.4) g/dL Hct 20.9 L (35.3-44.9) % Plt Count 273 (140-400) K/mcL Neutrophils # 4.4 (1.6-8.9) K/mcL BMP 11/30/17 08:48 Sodium 141 Potassium 3.4 L Chloride 101 Carbon Dioxide 30 H BUN 60 H Creatinine 3.74 H Glucose 179 H Calcium 8.1 L - ABG Interpretation ABG results: ABG ABG pH 7.41 pH Units (7.32-7.45) 11/17/17 15:41 ABG pCO2 27 mmHg (35-45) L 11/17/17 15:41 ABG pO2 80 mmHg (85-104) L 11/17/17 15:41 ABG O2 Saturation 96 % (95-98) 11/17/17 15:41 PT/INR, D-dimer PT 14.0 Seconds (9.4-12.1) H 11/25/17 18:26 - VTE Documentation of Mechanical Device: Intermittent pneumatic compression device Consult Discharge Plan - Plan Referrals: Wale Lam DO [Primary Care Provider] - (1) Anemia Qualifiers: Anemia type: unspecified type Qualified Code(s): D64.9 - Anemia, unspecified (3) Pneumonia Qualifiers: Pneumonia type: due to unspecified organism Laterality: right Lung location : lower lobe of lung Qualified Code(s): J18.1 - Lobar pneumonia, unspecified organism (4) UTI (urinary tract infection) Qualifiers: Urinary tract infection type: site unspecified Hematuria presence: with hematuria Qualified Code(s): N39.0 - Urinary tract infection, site not specified; R31.9 - Hematuria, unspecified (6) Hypertension Qualifiers: Hypertension type: essential hypertension Qualified Code(s): I10 - Essential (primary) hypertension (7) Hematuria Qualifiers: Hematuria type: gross Qualified Code(s): R31.0 - Gross hematuria (8) Type 2 diabetes mellitus Qualifiers: Diabetes mellitus [facility] insulin use: with [facility] use Diabetes mellitus complication status: with kidney complications Diabetes mellitus complication detail: with chronic kidney disease Chronic kidney disease stage: stage 4 (severe) Qualified Code(s): E11.22 - Type 2 diabetes mellitus with diabetic chronic kidney disease; N18.4 - Chronic kidney disease, stage 4 (severe ); Z79.4 - termite control servicer (current) use of insulin (9) Hydronephrosis Qualifiers: Hydronephrosis type: unspecified Qualified Code(s): N13.30 - Unspecified hydronephrosis (11) DVT (deep venous thrombosis) Qualifiers: DVT location: lower extremity Affected thrombotic vein of extremity: femoral Chronicity: acute Laterality: left Qualified Code(s): I82.412 - Acute embolism and thrombosis of left femoral vein
[2017-11-30] MEDS: Sodium Bicarbonate 75 MEQ in 0.45 % Sodium Chloride 1,000 ML IVC SCH (21:17)
[2017-11-30] MEDS: Insulin DETEMIR 100 UNIT/ML X5UNITS SQ SCH (23:15)
[2017-12-01] MEDS: Sodium Bicarbonate 75 MEQ in 0.45 % Sodium Chloride 1,000 ML IVC SCH ×2 (02:10→20:15)
[2017-12-01] MEDS: Insulin LISPRO 300 UNITS/3 ML VIAL SQ SCH ×3 (09:11→22:25)
--- NOTE | 2017-12-01 09:50 | Infectious Disease Progress No ---
Date of Encounter: 12/01/17 Time of Encounter: 08:30 - Assessment and Plan (1) Sepsis Current Visit: Yes Status: Resolved The patient originally came in with severe sepsis and progressed to septic shock , which resolved. Infectious Disease was consulted for persistent fevers and worsening leukocytosis. Tachycardia has resolved. The source of her persistent fevers is unclear. Assume urinary source due to purulent fluid drained from ureteral stent and negative CT chest/abd/pelvis. She has been on Cefepime since surgery on 11/18/17. She doesn't really participate in the exam and it's unclear if she doesn't want to or physically cannot participate. Her fevers seem to have improved since Vanc was started. Blood cultures drawn 11/17/17 were negative. Additional blood cultures drawn 11/22 are negative. Blood cultures drawn 11/25/17 are negative. Urine culture obtained on admission grew C. albicans and repeat urine culture is positive for yeast as well. Another repeat 11/24/17 is also positive for Yolanda albicans. CXR showed possible RLL PNA. CT chest non-contrast does not show pneumonia. CT abdomen/pelvis without contrast reveals no acute process. LFTs, amylase, and lipase are negative. ESR and CRP are elevated at 100 ad 204, respectively. Procalcitonin elevated at 0.69. Stop Vancomycin IV. Patient received 7 days therapeutic Vanc. Check random Vancomycin level on 12/03. Stop Cefepime. Patient received 11 days of Cefepime. Duration of treatment depends on the clinical picture. Monitor renal function and for drug toxicity and dose-adjust antibiotics. Infectious Disease signs off on patient. Qualifiers: Sepsis type: sepsis due to unspecified organism Qualified Code(s): A41.9 - Sepsis, unspecified organism (2) Pneumonia Current Visit: Yes Status: Ruled-out CXR completed 11/24/17 showed RLL PNA vs. atelectasis. CT chest non-contrast 11/25 does not show pneumonia. Procalcitonin elevated at 0.69. Stop antibiotics as above. Qualifiers: Pneumonia type: due to unspecified organism Laterality: right Lung location: lower lobe of lung Qualified Code(s): J18.1 - Lobar pneumonia, unspecified organism (3) UTI (urinary tract infection) Current Visit: Yes Status: Resolved Causative organism unclear. Urine culture on admission positive for C. albicans as well as repeat culture is positive for Yeast species. Repeat 11/24 also positive for C. albicans. Likely secondary to retained urine. CT of the abdomen and pelvis showed hemorrhage of the bladder and bilateral hydroureteronephrosis. CT abd/pelvis 11/25 reveals no acute process. Urology consulted. Status post cystoscopy with bilateral ureteral stent placement 11/18/17. Operative note reviewed. Purulent fluid drained from the right ureter, but no cultures were obtained. Not convinced that this is the source of the patient's fevers, but since she has bilateral ureteral stents, started Fluconazole 200mg IV x 1 dose now and 100mg IV daily since 11/25. Dose-adjusted for CrCl ~13. Switched to PO Fluconazole on 11/29. Continue PO Fluconazole for 7 more days, stop on 12/07. Qualifiers: Urinary tract infection type: site unspecified Hematuria presence: with hematuria Qualified Code(s): N39.0 - Urinary tract infection, site not specified; R31.9 - Hematuria, unspecified (4) Hematuria Current Visit: Yes Status: Acute Etiology unclear. Status post cystoscopy with evacuation of the clot 11/18/17 by Urology. Operative note reviewed. Large clot noted with friable bladder wall. Hematuria resolved and CBI discontinued. Management per the urology team. Qualifiers: Hematuria type: gross Qualified Code(s): R31.0 - Gross hematuria (5) Acute encephalopathy Current Visit: Yes Status: Acute Etiology unclear, likely multifactorial per Neurology team. Able to communicate, but chooses not to. CT head reveals no acute process. No nuchal rigidity or meningismus to indicate ERP BUSINESS ANALYST infection. Continue to monitor closely. Neurology signed off on 11/29. (6) Acute kidney injury superimposed on chronic kidney disease Current Visit: Yes Status: Resolved Serum creatinine 5.43 on admission. Secondary to obstruction. Improved with ureteral stents and plunkett placement followed by urology. Kidney function back to baseline. Nephrology signed-off on 11/28. Continue to trend. Dose-adjust antibiotics. Avoid nephrotoxins as able. Stop Vancomycin. (7) Bilateral hydronephrosis Current Visit: Yes Status: Acute Secondary to obstruction. CT of the abdomen and pelvis 11/17/17 showed bilateral hydroureteronephrosis and hemorrhage of the bladder. Urology consulted. Status post cystoscopy with bilateral ureteral stent placement 8/17/18. (8) Septic shock Current Visit: Yes Status: Resolved (9) Anemia Current Visit: Yes Status: Acute Hgb 6.4 yesterday, 2 units RBC given. Today, Hb is 8.9. Further workup and management per the primary team. Qualifiers: Anemia type: unspecified type Qualified Code(s): D64.9 - Anemia, unspecified (10) Hyperkalemia Current Visit: Yes Status: Resolved Likely secondary to TENISHA. Resolved. (11) Metabolic acidosis Current Visit: Yes Status: Resolved (12) Cardiomyopathy Current Visit: No Status: Chronic Qualifiers: Cardiomyopathy type: ischemic Qualified Code(s): I25.5 - Ischemic cardiomyopathy (13) Diabetes mellitus Current Visit: No Status: Chronic Qualifiers: Diabetes mellitus type: type 2 Diabetes mellitus penitentiary insulin use: with intermediate frame tender use Diabetes mellitus complication status: with circulatory complication Diabetes mellitus complication detail: with other circulatory complications Qualified Code(s): E11.59 - Type 2 diabetes mellitus with other circulatory complications; Z79.4 - termite helper (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 Clinically does not appear cellulitis. Continue to monitor. (17) Chronic systolic heart failure Current Visit: No Status: Acute - Subjective Interval history: Patient seen and examined. Patient is resting comfortably in bed. No acute events overnight, no significant change in patient from yesterday. ROS cannot be reviewed due to patient not replying. Infect Dis PN-Objective Data - Labs CBC & Chem 7: 12/01/17 11:03 12/01/17 11:03 Labs: Laboratory Results - last 24 hr 11/29/17 11/29/17 11/30/17 09:53 20:01 06:37 Sodium Potassium Chloride Carbon Dioxide BUN Creatinine Est GFR ( Amer) Est GFR (Non-Af Amer) BUN/Creatinine Ratio Glucose POC Glucose 151 H 146 H Calculated Osmolality Calcium Random Vancomycin Blood Type O POSITIVE Antibody Screen NEGATIVE Crossmatch See Detail 11/30/17 11/30/17 11/30/17 08:48 11:34 16:16 Sodium 141 Potassium 3.4 L Chloride 101 Carbon Dioxide 30 H BUN 60 H Creatinine 3.74 H Est GFR ( Amer) 14 L Est GFR (Non-Af Amer) 12 L BUN/Creatinine Ratio 16 Glucose 179 H POC Glucose 220 H 168 H Calculated Osmolality 313 H Calcium 8.1 L Random Vancomycin 22 Blood Type Antibody Screen Crossmatch Cultures: Cultures 11/25/17 12:04 Blood Culture - Final Peripheral Venipuncture No growth. Final report. 11/25/17 12:13 Blood Culture - Final Peripheral Venipuncture No growth. Final report. 11/22/17 11:02 Blood Culture - Final Peripheral Venipuncture No growth. Final report. 11/22/17 11:02 Blood Culture - Final Peripheral Venipuncture No growth. Final report. 11/24/17 10:28 Urine Culture - Final Urine,[place]olanda albicans 11/22/17 10:20 Urine Culture - Final Urine,Catheterized Yolanda albicans Serology 11/21/17 11/18/17 11/18/17 Range/Units 12:26 11:54 11:54 Ur Eosinophil Smear 0 (None Seen) % Urine Creatinine 56 mg/dL Urine Sodium 55.9 mEq/L Hep Bs Antigen Nonreactive (Nonreactive) Hep Bs Antibody 0.00 mIU/mL Exam - Constitutional Vitals: Temp Pulse Resp BP Pulse Ox 98.9 F 62 17 132/63 94 12/01/17 07:11 12/01/17 07:11 12/01/17 07:11 12/01/17 07:11 12/01/17 07:11 General appearance: morbidly obese, no acute distress, no febrile, no cooperative - Head Head exam: Present: atraumatic, normal inspection, normocephalic - Eye Eye exam: Present: EOMI, normal appearance, PERRL Pupils: Present: normal accommodation - Neck Neck exam: Present: normal inspection - Respiratory Respiratory exam: Present: CTAB. Absent: rales, respiratory distress, rhonchi, wheezes - Cardiovascular Cardiovascular exam: Present: RRR, +S1, +S2 - GI/Abdominal GI/Abdominal exam: Present: distended (obese), normal bowel sounds, soft. Absent: tenderness - Extremities Exam Extremities exam: Present: pedal edema (1+ pitting edema ). Absent: joint swelling, normal inspection (stasis dermatitis bilaterally ), tenderness - Neurological Exam Neurological exam: Present: alert, oriented X3 (cannot assess because patient is uncooperative with exam) - Psychiatric Psychiatric exam: Present: flat affect - Skin Skin exam: Present: dry, intact, normal color, warm - VTE Documentation of Mechanical Device: Intermittent pneumatic compression device Consult Discharge Plan - Plan Referrals: Wale Lam DO [Primary Care Provider] - - Attending Attestation I examined this patient and my medical decision-making was reviewed with the Resident Physician. I agree with the documented findings, disposition and treatment plan as described except to the extent set forth below.
[2017-12-01 11:53] LABS: Basophils % 0.3 %; Eosinophils # 0.2 K/mcL (0.0-0.6); Eosinophils % 2.9 %; Hematocrit 28.2 % (35.3-44.9); Immature Granulocytes % 0.7 % (0-4); Lymphocytes # 1.3 K/mcL (0.6-4.6); Lymphocytes % 17.5 %; Mean Corpuscular HGB Conc 31.6 g/dL (31.6-35.5); Mean Corpuscular Hemoglobin 28.3 pg (28.0-33.3); Mean Corpuscular Volume 89.5 fL (83.0-100.0); Mean Platelet Volume 10.1 fL (9.4-12.4); Monocytes # 0.8 K/mcL (0.0-1.3); Monocytes % 11.7 %; Neutrophils # 4.8 K/mcL (1.6-8.9); Platelet Count 262 K/mcL (140-400); Red Blood Count 3.15 M/mcL (3.82-4.97); Red Cell Distribution Width 15.3 % (11.5-14.5); Segmented Neutrophils % 66.9 %
[2017-12-01 11:55] LABS: Hemoglobin 8.9 g/dL (11.5-15.4)
[2017-12-01 12:13] LABS: Calcium 8.2 mg/dL (8.6-10.3); Potassium 3.3 mEq/L (3.5-5.1)
[2017-12-01] MEDS: Fluconazole 100 MG TABLET PO SCH (15:53)
[2017-12-01] MEDS: Multivit/Ca/Min/Fe/FA 1 TAB TABLET PO SCH (15:53)
[2017-12-01] MEDS: Aspirin Enteric Coated 81 MG Tablet PO SCH (15:53)
[2017-12-01] MEDS: Ascorbic Acid 500 MG TABLET PO SCH ×2 (15:54→20:20)
[2017-12-01] MEDS: Metoprolol XL (24 HR) Succ 50 MG TAB.ER.24H PO SCH (15:54)
[2017-12-01] MEDS: Miconazole 2% ointment 114 GM TUBE TP SCH (15:55)
[2017-12-01] MEDS: Heparin 25,000 UNIT/500 ML D5W 25,000 UNIT/500 ML BAG IVC SCH (15:55)
--- NOTE | 2017-12-01 18:43 | Internal Med Progress Note ---
Hospitalist Progress Note - Encounter Date of Encounter: 12/01/17 Time of Encounter: 11:00 - Subjective Interval History: Patient does not communicate so history difficult to obtain Did have extensive discussion with who was at the bedside and also daughter who called in and patient was reported to have been doing the same thing of not communicating much for approximate 4 weeks. Family suspects that this occurred after the of her son on 10/01/17 - Exam Vitals: Temp Pulse Resp BP Pulse Ox 98.8 F 73 19 161/71 95 12/01/17 18:30 12/01/17 18:30 12/01/17 18:30 12/01/17 18:30 12/01/17 18:30 Exam: Gen.: Nonacute distress, patient does not communicate ENT: Mucosal membranes moist Respiratory: Lungs are clear to auscultation bilaterally without any wheezing rhonchi or rales Cardiovascular: Normal S1 and S2 regular rate rhythm no murmurs rubs or gallops Abdomen: Soft, nontender and nondistended with positive bowel sounds Extremities: No lower extremity edema Skin: Normal color - Assessment and Plan (1) Grief at loss of child Current Visit: Yes Status: Acute Assessment and Plan: Patient not speaking much but family suspects that this began shortly after the of her son on 10/01/17 Psychiatry consulted and appreciate recommendations (2) Anemia Current Visit: Yes Status: Acute Assessment and Plan: Patient with a hemoglobin now 8.9 status post 3 units of packed red blood Will continue to monitor (3) Acute encephalopathy Current Visit: Yes Status: Acute Assessment and Plan: Neurology was consulted with no further recommendations Patient not able to obtain MRI but neurology does not suspect DIVINITY TEACHER pathology. No nuchal rigidity or meningismus to indicate DIVINITY TEACHER infection per infectious disease Patient appears to be at baseline per family as she is alert and oriented and juices to speak when she wishes. Continue to monitor (4) Pneumonia Current Visit: Yes Status: Ruled-out Assessment and Plan: CT of the chest did not show pneumonia and patient is afebrile without leukocytosis therefore antibiotics discontinued per infectious disease recommendations. (5) UTI (urinary tract infection) Current Visit: Yes Status: Resolved Assessment and Plan: Infectious disease following with recommendations to complete a 14 day course of fluconazole (6) Acute kidney injury superimposed on chronic kidney disease Current Visit: Yes Status: Resolved Assessment and Plan: - Acute kidney injury likely due to obstructive uropathy with b/l hydroureteronehrsis and is currently s/p cystoscopy and b/l tent placement. - Creatinine trending down. - Avoid nephrotoxic medications. - At the moment there is no indication for dialysis. Nephro following. - Continue IV fluids and daily BMP. (7) Hypertension Current Visit: No Status: Chronic Assessment and Plan: - Pressure-controlled. - Continue as needed hydralazine (8) Hematuria Current Visit: Yes Status: Acute Assessment and Plan: s/p cystoscopy and b/l ureteral stent placement , no evidence for any obvious tumors patient currently stable and H&H relatively stable To maintain [place] until discharge per urology (9) Type 2 diabetes mellitus Current Visit: No Status: Acute Assessment and Plan: Continue basal and sliding scale insulin coverage. (10) Hydronephrosis Current Visit: No Status: Acute Assessment and Plan: See plan for hematuria. Urology following. (11) Chronic systolic heart failure Current Visit: No Status: Acute Assessment and Plan: Patient has PPM and AICD. Continue metoprolol. (12) DVT (deep venous thrombosis) Current Visit: Yes Status: Acute Assessment and Plan: DVT in the left lower extremity Vascular consultation was obtained in case IVC filter was needed if she was contraindicated for anticoagulation. Cardiovascular reintroducing to cognition and monitor for any hematuria. Continue heparin. (13) DVT prophylaxis Current Visit: No Status: Acute Assessment and Plan: Heparin as above - Time Spent with Patient Total time spent is greater than 50% in coordination of care (as documented) at patient's floor/unit and/or counseling patient: Internal Medicine: Result - Labs CBC & Chem 7: 12/01/17 11:03 12/01/17 11:03 Labs: Short CBC 12/01/17 Range/Units 11:03 WBC 7.2 (4.3-11.1) K/mcL Hgb 8.9 L D (11.5-15.4) g/dL Hct 28.2 L (35.3-44.9) % Plt Count 262 (140-400) K/mcL Neutrophils # 4.8 (1.6-8.9) K/mcL BMP 12/01/17 11:03 Sodium 143 Potassium 3.3 L Chloride 102 Carbon Dioxide 31 H BUN 59 H Creatinine 3.63 H Glucose 69 L Calcium 8.2 L - ABG Interpretation ABG results: ABG ABG pH 7.41 pH Units (7.32-7.45) 11/17/17 15:41 ABG pCO2 27 mmHg (35-45) L 11/17/17 15:41 ABG pO2 80 mmHg (85-104) L 11/17/17 15:41 ABG O2 Saturation 96 % (95-98) 11/17/17 15:41 PT/INR, D-dimer PT 14.0 Seconds (9.4-12.1) H 11/25/17 18:26 - VTE Documentation of Mechanical Device: Intermittent pneumatic compression device Consult Discharge Plan - Plan Referrals: Wale Lam DO [Primary Care Provider] - (2) Anemia Qualifiers: Anemia type: unspecified type Qualified Code(s): D64.9 - Anemia, unspecified (4) Pneumonia Qualifiers: Pneumonia type: due to unspecified organism Laterality: right Lung location : lower lobe of lung Qualified Code(s): J18.1 - Lobar pneumonia, unspecified organism (5) UTI (urinary tract infection) Qualifiers: Urinary tract infection type: site unspecified Hematuria presence: with hematuria Qualified Code(s): N39.0 - Urinary tract infection, site not specified; R31.9 - Hematuria, unspecified (7) Hypertension Qualifiers: Hypertension type: essential hypertension Qualified Code(s): I10 - Essential (primary) hypertension (8) Hematuria Qualifiers: Hematuria type: gross Qualified Code(s): R31.0 - Gross hematuria (9) Type 2 diabetes mellitus Qualifiers: Diabetes mellitus director long term care insulin use: with director long term care use Diabetes mellitus complication status: with kidney complications Diabetes mellitus complication detail: with chronic kidney disease Chronic kidney disease stage: stage 4 (severe) Qualified Code(s): E11.22 - Type 2 diabetes mellitus with diabetic chronic kidney disease; N18.4 - Chronic kidney disease, stage 4 (severe ); Z79.4 - intermediate (current) use of insulin (10) Hydronephrosis Qualifiers: Hydronephrosis type: unspecified Qualified Code(s): N13.30 - Unspecified hydronephrosis (12) DVT (deep venous thrombosis) Qualifiers: DVT location: lower extremity Affected thrombotic vein of extremity: femoral Chronicity: acute Laterality: left Qualified Code(s): I82.412 - Acute embolism and thrombosis of left femoral vein
[2017-12-01] MEDS: Insulin DETEMIR 100 UNIT/ML X5UNITS SQ SCH (22:27)
[2017-12-02] MEDS: Insulin LISPRO 300 UNITS/3 ML VIAL SQ SCH ×4 (07:38→23:30)
--- NOTE | 2017-12-02 07:53 | Internal Med Progress Note ---
Hospitalist Progress Note - Encounter Date of Encounter: 12/02/17 Time of Encounter: 11:00 - Subjective Interval History: Patient does not communicate so history difficult to obtain Did have extensive discussion with on 12/01/17 who was at the bedside and also daughter who called in and patient was reported to have been doing the same thing of not communicating much for approximate 4 weeks. Family suspects that this occurred after the of her son on 10/01/17 Psychiatry consulted and evaluated patient today (12/02/17) and suspects catatonic disorder with recommendations for consideration of placement at a geriatric psychiatry inpatient facility - Exam Vitals: Temp Pulse Resp BP Pulse Ox 98.0 F 60 19 161/71 100 12/02/17 07:32 12/02/17 07:32 12/02/17 07:32 12/02/17 07:32 12/02/17 07:32 Exam: Gen.: Nonacute distress, patient does not communicate ENT: Mucosal membranes moist Respiratory: Lungs are clear to auscultation bilaterally without any wheezing rhonchi or rales Cardiovascular: Normal S1 and S2 regular rate rhythm no murmurs rubs or gallops Abdomen: Soft, nontender and nondistended with positive bowel sounds Extremities: No lower extremity edema Skin: Normal color - Assessment and Plan (1) Grief at loss of child Current Visit: Yes Status: Acute Assessment and Plan: Patient not speaking much but family suspects that this began shortly after the of her son on 10/01/17 Psychiatry consulted and 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 Patient not cooperative but able to communicate to her . Psychiatry recommendations as above Neurology was consulted with no further recommendations; patient not able to obtain MRI but neurology does not suspect CLEANER LABORATORY EQUIPMENT pathology. Infectious disease also consulted and does not suspect infectious etiology as there is no nuchal rigidity or meningismus to indicate CLEANER [employer]ORATORY EQUIPMENT infection (3) Acute kidney injury superimposed on chronic kidney disease Current Visit: Yes Status: Resolved Assessment and Plan: Acute kidney injury likely due to obstructive uropathy with b/l hydroureteronehrsis and is currently s/p cystoscopy and b/l tent placement. Serum creatinine trends since admission: on admission Scr 5.31 in later in the week trended down to 2.96 now Scr is back up to 3.5 to approximately 2 weeks later. Nephrology reconsulted and appreciate any further recommendations. (4) Anemia Current Visit: Yes Status: Acute Assessment and Plan: Patient with a hemoglobin 8.9 on 12/01/17 status post 3 units of packed red blood Will continue to monitor (5) UTI (urinary tract infection) Current Visit: Yes Status: Resolved Assessment and Plan: Infectious disease following with recommendations to complete a 14 day course of fluconazole (6) Hematuria Current Visit: Yes Status: Acute Assessment and Plan: s/p cystoscopy and b/l ureteral stent placement , no evidence for any obvious tumors patient currently stable and H&H relatively stable To maintain [place] until discharge per urology (7) Hydronephrosis Current Visit: No Status: Acute Assessment and Plan: Status post bilateral stents (8) Chronic systolic heart failure Current Visit: No Status: Acute Assessment and Plan: Patient has PPM and AICD with a LVEF of 30% Continue metoprolol. (9) Pneumonia Current Visit: Yes Status: Ruled-out Assessment and Plan: CT of the chest did not show pneumonia and patient is afebrile without leukocytosis therefore antibiotics discontinued per infectious disease recommendations. (10) Hypertension Current Visit: No Status: Chronic Assessment and Plan: Blood pressures are elevated so will add calcium channel maggie in addition to continue beta maggie (11) Type 2 diabetes mellitus Current Visit: No Status: Acute Assessment and Plan: Continue basal and sliding scale insulin coverage. (12) DVT (deep venous thrombosis) Current Visit: Yes Status: Acute DVT Prophylaxis: IVC filter placement - Time Spent with Patient Total time spent is greater than 50% in coordination of care (as documented) at patient's floor/unit and/or counseling patient: Internal Medicine: Result - Labs CBC & Chem 7: 12/02/17 07:40 12/02/17 07:40 Labs: Short CBC 12/01/17 Range/Units 11:03 WBC 7.2 (4.3-11.1) K/mcL Hgb 8.9 L D (11.5-15.4) g/dL Hct 28.2 L (35.3-44.9) % Plt Count 262 (140-400) K/mcL Neutrophils # 4.8 (1.6-8.9) K/mcL BMP 12/01/17 11:03 Sodium 143 Potassium 3.3 L Chloride 102 Carbon Dioxide 31 H BUN 59 H Creatinine 3.63 H Glucose 69 L Calcium 8.2 L - ABG Interpretation ABG results: ABG ABG pH 7.41 pH Units (7.32-7.45) 11/17/17 15:41 ABG pCO2 27 mmHg (35-45) L 11/17/17 15:41 ABG pO2 80 mmHg (85-104) L 11/17/17 15:41 ABG O2 Saturation 96 % (95-98) 11/17/17 15:41 PT/INR, D-dimer PT 14.0 Seconds (9.4-12.1) H 11/25/17 18:26 - VTE Documentation of Mechanical Device: Intermittent pneumatic compression device Consult Discharge Plan - Plan Referrals: Wale Lam DO [Primary Care Provider] - (4) Anemia Qualifiers: Anemia type: unspecified type Qualified Code(s): D64.9 - Anemia, unspecified (5) UTI (urinary tract infection) Qualifiers: Urinary tract infection type: site unspecified Hematuria presence: with hematuria Qualified Code(s): N39.0 - Urinary tract infection, site not specified; R31.9 - Hematuria, unspecified (6) Hematuria Qualifiers: Hematuria type: gross Qualified Code(s): R31.0 - Gross hematuria (7) Hydronephrosis Qualifiers: Hydronephrosis type: unspecified Qualified Code(s): N13.30 - Unspecified hydronephrosis (9) Pneumonia Qualifiers: Pneumonia type: due to unspecified organism Laterality: right Lung location : lower lobe of lung Qualified Code(s): J18.1 - Lobar pneumonia, unspecified organism (10) Hypertension Qualifiers: Hypertension type: essential hypertension Qualified Code(s): I10 - Essential (primary) hypertension (11) Type 2 diabetes mellitus Qualifiers: Diabetes mellitus long-term insulin use: with intermodal dispatcher use Diabetes mellitus complication status: with kidney complications Diabetes mellitus complication detail: with chronic kidney disease Chronic kidney disease stage: stage 4 (severe) Qualified Code(s): E11.22 - Type 2 diabetes mellitus with diabetic chronic kidney disease; N18.4 - Chronic kidney disease, stage 4 (severe ); Z79.4 - long term care pharmacist (current) use of insulin (12) DVT (deep venous thrombosis) Qualifiers: DVT location: lower extremity Affected thrombotic vein of extremity: femoral Chronicity: acute Laterality: left Qualified Code(s): I82.412 - Acute embolism and thrombosis of left femoral vein
[2017-12-02 08:24] LABS: Basophils % 0.4 %; Eosinophils # 0.2 K/mcL (0.0-0.6); Eosinophils % 4.1 %; Hemoglobin 8.5 g/dL (11.5-15.4); Immature Granulocytes % 0.8 % (0-4); Lymphocytes % 19.3 %; Mean Corpuscular HGB Conc 30.4 g/dL (31.6-35.5); Mean Corpuscular Hemoglobin 28.1 pg (28.0-33.3); Mean Corpuscular Volume 92.4 fL (83.0-100.0); Monocytes # 0.8 K/mcL (0.0-1.3); Monocytes % 15.2 %; Neutrophils # 3.1 K/mcL (1.6-8.9); Platelet Count 252 K/mcL (140-400); Red Blood Count 3.03 M/mcL (3.82-4.97); Red Cell Distribution Width 15.4 % (11.5-14.5); Segmented Neutrophils % 60.2 %
[2017-12-02 08:34] LABS: Calcium 8.1 mg/dL (8.6-10.3); Potassium 3.3 mEq/L (3.5-5.1)
[2017-12-02] MEDS: Aspirin Enteric Coated 81 MG Tablet PO SCH (11:36)
[2017-12-02] MEDS: Multivit/Ca/Min/Fe/FA 1 TAB TABLET PO SCH (11:36)
[2017-12-02] MEDS: Metoprolol XL (24 HR) Succ 50 MG TAB.ER.24H PO SCH (11:36)
[2017-12-02] MEDS: Ascorbic Acid 500 MG TABLET PO SCH ×2 (11:36→23:26)
[2017-12-02] MEDS: Fluconazole 100 MG TABLET PO SCH (11:36)
[2017-12-02] MEDS ORDERED: *HR* LORazepam 2 MG/ML VIAL IVP ONE (16:54)
--- NOTE | 2017-12-02 17:04 | Consult Note ---
Date of Encounter: 12/02/17 Time of Encounter: 16:30 Assessment & Recommendation (1) Catatonic disorder due to known physiological condition Current visit: Yes Status: Acute History of Present Illness Patient: new to practice Requesting Physician: Chris Arizmendi Reason for consult: depression History of present illness: Ms. Bentley is a 71 year old female . The patient was seen for interview. She is not a very good historian. The patient's Coleman did come to the patient has gradually increasing a bulimia but there is concern about the possibility of major depression. We cannot get a formal history of depression but the patient did have some losses of a [id number] and a son. Furthermore there is some variability in her presentation. On the interview with me she had rasp reflex mutism immobility gegenhalten posturing stupor. She had perseveration she had ideomotor apraxia CC: Chris Arizmendi Past Med Surg Social Fam HX - Past Medical History Medical history: cardiomyopathy, CHF, coronary artery disease, CVA, diabetes, GERD, hyperlipidemia, hypertension, kidney stones, myocardial infarction, peripheral artery disease, renal disease, TIA - Past Surgical History Surgical History: appendectomy, breast surgery, carotid endarterectomy, cholecystectomy, coronary bypass (CABG), hysterectomy, pacemaker/AICD, LE vascular intervention - Social History Smoking Status: Former smoker Smokeless Tobacco Status: No Alcohol use: none Drug use: none - Family History Mother Living Status: Hx Family Cardiac Disorders: Yes (HTN) Hx Family Endocrine Disorder: Yes (diabetes) Hx Family Neurologic Disorders: Yes (2 strokes) Father Living Status: Hx Family Cardiac Disorders: Yes Hx Family Respiratory Disorders: Yes Hx Family Neurologic Disorders: Yes Medications & Allergies Aspirin Enteric Coated [Aspirin EC] 81 mg PO DAILY 08/20/15 [History] Metoprolol XL (24 HR) Succ [Toprol Xl] 50 mg PO DAILY #30 tab.er.24h 01/07/16 [ Rx] Insulin Glargine,Hum.rec.anlog [Toujeo Solostar] 45 units SQ HS 06/10/16 [ History] Multivit-Minerals/Folic/Ginkgo [One Daily For Women 50+ Adv Tb] 1 tab PO DAILY 06/10/16 [History] Furosemide [Lasix] 40 mg PO QAM 10/03/16 [History] Insulin ASPART [Novolog Flexpen] 25 unit SQ TIDWM 10/03/16 [History] Losartan Potassium [Cozaar] 50 mg PO DAILY 10/03/16 [History] Clopidogrel [Plavix] 75 mg PO DAILY 11/03/17 [History] Oxybutynin Chloride [Ditropan Xl] 10 mg PO DAILY 11/03/17 [History] Rosuvastatin Calcium [Rosuvastatin Calcium] 10 mg PO HS 11/03/17 [History] Ascorbic Acid [Vitamin C] 500 mg PO BID 11/17/17 [History] Ergocalciferol (VITAMIN D2) [Vitamin D2] 50,000 unit PO QWEEK 11/17/17 [History] Furosemide [Lasix] 20 mg PO QPM 11/17/17 [History] 3 Allergy/AdvReac Type Severity Reaction Status Date / Time venom-honey bee Allergy Severe Swelling Verified 11/03/17 10:53 [bee venom (honey bee)] of Lip/Tongue/Throat Cortisone Allergy Mild Hives Verified 11/03/17 10:53 Penicillins Allergy See Verified 11/03/17 10:53 Comments NSAIDS (Non-Steroidal AdvReac Mild UPSET Verified 11/03/17 10:53 Anti-Inflamma STOMACH cefazolin [From Ancef] AdvReac Hives Verified 11/03/17 10:53 Iaafpss-Vjt-Oul Reductase AdvReac Muscle Pain Verified 11/03/17 10:53 Inhibitor [Statins] GRAPE FLAVOR Allergy Mild Swelling Uncoded 11/03/17 10:53 of the Eye Review of Systems Psychiatric: Reports: depression Psychiatry Exam - Constitutional Vitals: Temp Pulse Resp BP Pulse Ox 98.7 F 68 18 170/68 97 12/02/17 16:34 12/02/17 16:34 12/02/17 16:34 12/02/17 16:34 12/02/17 16:34 - Musculoskeletal Gait: normal - Psychiatric Patient Orientation: Yes Person Level of alertness: Follows commands Psychomotor activity: Catatonic Eye Contact: Maintains Eye Contact Speech Volume: Soft/Quiet, No speech Speech pattern: non-verbal Thought Process: Slowed Thinking Judgment: Limited Insight: Minimal Results - Labs Labs: Laboratory Last Values WBC 5.1 K/mcL (4.3-11.1) 12/02/17 07:40 RBC 3.03 M/mcL (3.82-4.97) L 12/02/17 07:40 Hgb 8.5 g/dL (11.5-15.4) L 12/02/17 07:40 Hct 28.0 % (35.3-44.9) L 12/02/17 07:40 MCV 92.4 fL (83.0-100.0) 12/02/17 07:40 MCH 28.1 pg (28.0-33.3) 12/02/17 07:40 MCHC 30.4 g/dL (31.6-35.5) L 12/02/17 07:40 RDW 15.4 % (11.5-14.5) H 12/02/17 07:40 Plt Count 252 K/mcL (140-400) 12/02/17 07:40 MPV 10.0 fL (9.4-12.4) 12/02/17 07:40 Immature Gran % 0.8 % (0-4) 12/02/17 07:40 Seg Neutrophils % 60.2 % 12/02/17 07:40 Band Neutrophils % 17.0 % (0-4) H 11/19/17 06:21 Lymphocytes % 19.3 % 12/02/17 07:40 Monocytes % 15.2 % 12/02/17 07:40 Eosinophils % 4.1 % 12/02/17 07:40 Basophils % 0.4 % 12/02/17 07:40 Neutrophils # 3.1 K/mcL (1.6-8.9) 12/02/17 07:40 Lymphocytes # 1.0 K/mcL (0.6-4.6) 12/02/17 07:40 Monocytes # 0.8 K/mcL (0.0-1.3) 12/02/17 07:40 Eosinophils # 0.2 K/mcL (0.0-0.6) 12/02/17 07:40 Basophils # 0.0 K/mcL (0.0-0.2) 12/02/17 07:40 Platelet Estimate Normal (Normal) 11/19/17 06:21 ESR 100 mm/hr (0-15) H 11/25/17 12:15 PT 14.0 Seconds (9.4-12.1) H 11/25/17 18:26 INR 1.2 11/25/17 18:26 Heparin Anti-Xa, Unfract 0.38 IU/mL (0.30-0.70) 11/27/17 08:49 Sample Site L Radial 11/17/17 15:41 ABG pH 7.41 pH Units (7.32-7.45) 11/17/17 15:41 ABG pCO2 27 mmHg (35-45) L 11/17/17 15:41 ABG pO2 80 mmHg (85-104) L 11/17/17 15:41 ABG HCO3 17 mEq/L (21-27) L 11/17/17 15:41 ABG Total CO2 18 mEq/L (20-26) L 11/17/17 15:41 ABG O2 Saturation 96 % (95-98) 11/17/17 15:41 ABG Base Excess -7 mEq/L (-2 to 3) L 11/17/17 15:41 David Test Positive 11/17/17 15:41 O2 Delivery Device Room Air 11/17/17 15:41 Sodium 143 mEq/L (136-145) 12/02/17 07:40 Potassium 3.3 mEq/L (3.5-5.1) L 12/02/17 07:40 Chloride 101 mEq/L (98-107) 12/02/17 07:40 Carbon Dioxide 27 mEq/L (23-29) 12/02/17 07:40 BUN 56 mg/dL (8-23) H 12/02/17 07:40 Creatinine 3.52 mg/dL (0.60-1.20) H 12/02/17 07:40 Est GFR ( Amer) 16 (> 60) L 12/02/17 07:40 Est GFR (Non-Af Amer) 13 (> 60) L 12/02/17 07:40 BUN/Creatinine Ratio 16 (6-26) 12/02/17 07:40 Glucose 75 mg/dL (70-105) 12/02/17 07:40 POC Glucose 74 mg/dL (70-99) 12/01/17 21:04 Calculated Osmolality 310 (280-300) H 12/02/17 07:40 Lactic Acid 1.0 mmol/L (0.5-2.2) 11/17/17 23:15 Calcium 8.1 mg/dL (8.6-10.3) L 12/02/17 07:40 Venous Ioniz Calcium 1.01 mmol/L (1.15-1.35) L 11/17/17 16:17 Phosphorus 4.4 mg/dL (2.7-4.5) 11/28/17 05:57 Magnesium 1.9 mg/dL (1.6-2.6) 11/26/17 02:36 Iron 13 mcg/dL (50-170) L 11/25/17 04:00 % Saturation 7 % (15-50) L 11/25/17 04:00 Transferrin 141 mg/dL (203-362) L 11/25/17 04:00 Total Bilirubin 0.6 mg/dL (0.3-1.0) 11/25/17 12:15 Direct Bilirubin 0.2 mg/dL (0.0-0.2) 11/25/17 12:15 Indirect Bilirubin 0.4 mg/dL (0.0-1.2) 11/25/17 12:15 AST 19 Units/L (13-39) 11/25/17 12:15 ALT 10 Units/L (7-52) 11/25/17 12:15 Alkaline Phosphatase 122 Units/L (34-104) H 11/25/17 12:15 Creatine Kinase 71 Units/L (30-223) 11/17/17 05:17 C-Reactive Protein 204 mg/L (Less than 10) H 11/25/17 12:15 Serum Total Protein 6.4 g/dL (6.4-8.9) 11/25/17 12:15 Albumin 2.7 g/dL (3.5-5.7) L 11/28/17 05:57 Globulin 3.9 g/dL (2.4-3.5) H 11/25/17 12:15 Albumin/Globulin Ratio 0.6 (1.1-2.2) L 11/25/17 12:15 Amylase 20 Units/L (29-103) L 11/25/17 12:15 Lipase 8 Units/L (11-82) L 11/25/17 12:15 Vitamin B12 717 pg/mL (250-1100) 11/25/17 04:00 Folate > 22.3 ng/mL (3.0-16.0) H 11/25/17 04:00 Procalcitonin 0.69 ng/mL (<=0.07) H 11/25/17 12:15 Ur Specimen Adequacy See below A 11/17/17 04:58 Urine Color Red (Yellow) A 11/17/17 04:58 Urine Clarity Clear (Clear) 11/17/17 04:58 Urine pH 7.0 pH Units (5.0-8.0) 11/17/17 04:58 Ur Specific [place] > 1.030 (1.010-1.025) H 11/17/17 04:58 Urine Protein >=1000 mg/dL (Neg-Trace) H 11/17/17 04:58 Urine Glucose (UA) Normal mg/dL (Normal) 11/17/17 04:58 Urine Ketones Trace mg/dL (Negative) H 11/17/17 04:58 Urine Blood Large (Negative) H 11/17/17 04:58 Urine Nitrite Positive (Negative) A 11/17/17 04:58 Urine Bilirubin Moderate (Negative) H 11/17/17 04:58 Urine Urobilinogen Normal mg/dL (Normal) 11/17/17 04:58 Ur Leukocyte Esterase Small (Negative) H 11/17/17 04:58 Ur Eosinophil Smear 0 % (None Seen) 11/18/17 11:54 Ur Culture Indicated? YES (NO) A 11/17/17 04:58 Urine Creatinine 56 mg/dL 11/18/17 11:54 Urine Sodium 55.9 mEq/L 11/18/17 11:54 Vancomycin Trough 43 mcg/mL (5-10) H 11/27/17 08:49 Random Vancomycin 22 mcg/mL 11/30/17 08:48 Hep Bs Antigen Nonreactive (Nonreactive) 11/21/17 12:26 Hep Bs Antibody 0.00 mIU/mL 11/21/17 12:26 Blood Type O POSITIVE 11/29/17 09:53 Antibody Screen NEGATIVE 11/29/17 09:53 Crossmatch See Detail 11/29/17 09:53 - Impressions Impressions Videofluoroscopic Swallow 12/02/17 00:01 IMPRESSION: Swallowing mechanism grossly within normal limits without evidence of aspiration. Please see separate speech pathology report for full discussion of findings and recommendations. D/ / Dewayne Sanchez MD / Dewayne Sanchez MD Interpreting Provider: Dewayne Sanchez MD Consult Discharge Plan - Plan Referrals: Wale Lam DO [Primary Care Provider] -
--- NOTE | 2017-12-02 17:05 | Event Note ---
Date of Encounter: 12/02/17 Time of Encounter: 17:05 Nephrology Chart Review Nonoliguric TENISHA and earlier this week her SCr started to worsen again, but slightly better today. Now that the gross hematuria has improved, this may explain the improvement. She does not need AUTHOR biochemically today. She is no longer acidotic, so the 1/2NS with 75mEq of bicarb IVF is not necessary. Bicarbonate fluids will generally shift K+ into the intracellular space and contribute to hypokalemia; it also contributes to hypocalcemia. I'll stop this IVF tonight and reassess her in the AM. Thank you
[2017-12-02] MEDS: Sodium Bicarbonate 75 MEQ in 0.45 % Sodium Chloride 1,000 ML IVC SCH (17:17)
[2017-12-02] MEDS: Miconazole 2% ointment 114 GM TUBE TP SCH (17:18)
[2017-12-02] MEDS: amLODIPine 5 MG TABLET PO SCH (19:02)
[2017-12-02] MEDS: Insulin DETEMIR 100 UNIT/ML X5UNITS SQ SCH (23:29)
[2017-12-03 03:42] LABS: Basophils % 0.6 %; Eosinophils # 0.2 K/mcL (0.0-0.6); Hematocrit 27.6 % (35.3-44.9); Hemoglobin 8.5 g/dL (11.5-15.4); Immature Granulocytes % 0.8 % (0-4); Lymphocytes # 1.1 K/mcL (0.6-4.6); Lymphocytes % 17.7 %; Mean Corpuscular HGB Conc 30.8 g/dL (31.6-35.5); Mean Corpuscular Hemoglobin 27.8 pg (28.0-33.3); Mean Corpuscular Volume 90.2 fL (83.0-100.0); Mean Platelet Volume 9.5 fL (9.4-12.4); Monocytes # 0.7 K/mcL (0.0-1.3); Monocytes % 11.4 %; Neutrophils # 4.1 K/mcL (1.6-8.9); Platelet Count 274 K/mcL (140-400); Red Blood Count 3.06 M/mcL (3.82-4.97); Red Cell Distribution Width 15.3 % (11.5-14.5); Segmented Neutrophils % 66.5 %
[2017-12-03 03:46] LABS: VBG Ionized Calcium 0.97 mmol/L (1.15-1.35)
[2017-12-03 04:01] LABS: Albumin 2.4 g/dL (3.5-5.7); Calcium 7.9 mg/dL (8.6-10.3); Magnesium 1.6 mg/dL (1.6-2.6); Potassium 3.1 mEq/L (3.5-5.1)
--- NOTE | 2017-12-03 07:52 | Internal Med Progress Note ---
Hospitalist Progress Note - Encounter Date of Encounter: 12/03/17 Time of Encounter: 11:00 - Subjective Interval History: Extensive discussion held with on 12/01/17 who was at the bedside and also daughter who called in and patient was reported to have been doing the same thing of not communicating much for approximate 4 weeks. Family suspects that this occurred after the of her son on 10/01/17 Psychiatry consulted and evaluated patient today (12/02/17) and suspects catatonic disorder with recommendations for consideration of placement at a geriatric psychiatry inpatient facility Will give 1 mg of Ativan today (12/03/17) per psychiatry recommendations to see if this helps with symptoms of catatonia - Exam Vitals: Temp Pulse Resp BP Pulse Ox 98.1 F 82 18 155/87 95 12/03/17 04:21 12/03/17 04:21 12/03/17 04:21 12/03/17 04:21 12/03/17 04:21 Exam: Gen.: Nonacute distress, patient did communicate this morning more than she has to the last several days ENT: Mucosal membranes moist Respiratory: Lungs are clear to auscultation bilaterally without any wheezing rhonchi or rales Cardiovascular: Normal S1 and S2 regular rate rhythm no murmurs rubs or gallops Abdomen: Soft, nontender and nondistended with positive bowel sounds Extremities: No lower extremity edema Skin: Normal color - Assessment and Plan (1) Catatonic disorder due to known physiological condition Current Visit: Yes Status: Acute Assessment and Plan: Psychiatry consulted and 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 Recommendations for trial of benzodiazepine and if no improvement of conditions , recommendations for hospitalization in a geriatric psychiatry unit. Will give 1 mg of Ativan today to see if this helps her symptoms. (2) Grief at loss of child Current Visit: Yes Status: Acute Assessment and Plan: Patient not speaking much but family suspects that this began shortly after the of her son on 10/01/17 Talked to additional family members who were present at the bedside today () who reports that patient has not been speaking much after loss of her son and his . Psychiatry consulted and appreciate any recommendations (3) Acute encephalopathy Current Visit: Yes Status: Acute Assessment and Plan: Patient appears encephalopathic as she is able to talk but not willing to engage conversation. Patient not cooperative but able to communicate to her . Patient however communicating more on today (12/03/17). Psychiatry recommendations as above Neurology was consulted with no further recommendations; patient not able to obtain MRI but neurology does not suspect BASKET HAND WEAVER pathology. Infectious disease also consulted and does not suspect infectious etiology as there is no nuchal rigidity or meningismus to indicate BASKET HAND WEAVER infection (4) Acute kidney injury superimposed on chronic kidney disease Current Visit: Yes Status: Resolved Assessment and Plan: Acute kidney injury likely due to obstructive uropathy with b/l hydroureteronehrsis and is currently s/p cystoscopy and b/l tent placement. Serum creatinine elevated this morning but continues to improve since admission. Nephrology following with recommendations for no RTT biochemical therapy (5) Anemia Current Visit: Yes Status: Acute Assessment and Plan: Stable; continue to monitor (6) UTI (urinary tract infection) Current Visit: Yes Status: Resolved Assessment and Plan: Infectious disease following with recommendations to complete a 14 day course of fluconazole (7) Hematuria Current Visit: Yes Status: Acute Assessment and Plan: Resolved; s/p cystoscopy and b/l ureteral stent placement patient currently stable and H&H relatively stable To maintain Elizondo until discharge per urology (8) Hydronephrosis Current Visit: No Status: Acute Assessment and Plan: Status post bilateral stents as above Patient to follow-up with urology as an outpatient. (9) Chronic systolic heart failure Current Visit: No Status: Acute Assessment and Plan: Patient has PPM and AICD with a LVEF of 30% Continue metoprolol. (10) Pneumonia Current Visit: Yes Status: Ruled-out Assessment and Plan: CT of the chest did not show pneumonia and patient is afebrile without leukocytosis therefore antibiotics discontinued per infectious disease recommendations. (11) Hypertension Current Visit: No Status: Chronic Assessment and Plan: Blood pressures are elevated so will add calcium channel maggie in addition to continue beta maggie (12) Type 2 diabetes mellitus Current Visit: No Status: Acute Assessment and Plan: Continue basal and sliding scale insulin coverage. (13) DVT (deep venous thrombosis) Current Visit: Yes Status: Acute Assessment and Plan: IVC filter placed DVT Prophylaxis: IVC filter placement - Time Spent with Patient Total time spent is greater than 50% in coordination of care (as documented) at patient's floor/unit and/or counseling patient: Internal Medicine: Result - Labs CBC & Chem 7: 12/03/17 03:29 12/03/17 03:29 Labs: Short CBC 12/02/17 12/03/17 Range/Units 07:40 03:29 WBC 5.1 6.2 (4.3-11.1) K/mcL Hgb 8.5 L 8.5 L (11.5-15.4) g/dL Hct 28.0 L 27.6 L (35.3-44.9) % Plt Count 252 274 (140-400) K/mcL Neutrophils # 3.1 4.1 (1.6-8.9) K/mcL BMP 12/02/17 12/03/17 07:40 03:29 Sodium 143 136 Potassium 3.3 L 3.1 L Chloride 101 102 Carbon Dioxide 27 26 BUN 56 H 52 H Creatinine 3.52 H 3.25 H Glucose 75 153 H Calcium 8.1 L 7.9 L Liver Function 12/03/17 Range/Units 03:29 Albumin 2.4 L (3.5-5.7) g/dL - ABG Interpretation ABG results: ABG ABG pH 7.41 pH Units (7.32-7.45) 11/17/17 15:41 ABG pCO2 27 mmHg (35-45) L 11/17/17 15:41 ABG pO2 80 mmHg (85-104) L 11/17/17 15:41 ABG O2 Saturation 96 % (95-98) 11/17/17 15:41 PT/INR, D-dimer PT 14.0 Seconds (9.4-12.1) H 11/25/17 18:26 - Impressions Impressions Videofluoroscopic Swallow 12/02/17 00:01 IMPRESSION: Swallowing mechanism grossly within normal limits without evidence of aspiration. Please see separate speech pathology report for full discussion of findings and recommendations. D/ / Dewayne Sanchez MD / Dewayne Sanchez MD Interpreting Provider: Dewayne Sanchez MD - VTE Documentation of Mechanical Device: Intermittent pneumatic compression device Consult Discharge Plan - Plan Referrals: Wale Lam DO [Primary Care Provider] - (5) Anemia Qualifiers: Anemia type: unspecified type Qualified Code(s): D64.9 - Anemia, unspecified (6) UTI (urinary tract infection) Qualifiers: Urinary tract infection type: site unspecified Hematuria presence: with hematuria Qualified Code(s): N39.0 - Urinary tract infection, site not specified; R31.9 - Hematuria, unspecified (7) Hematuria Qualifiers: Hematuria type: gross Qualified Code(s): R31.0 - Gross hematuria (8) Hydronephrosis Qualifiers: Hydronephrosis type: unspecified Qualified Code(s): N13.30 - Unspecified hydronephrosis (10) Pneumonia Qualifiers: Pneumonia type: due to unspecified organism Laterality: right Lung location : lower lobe of lung Qualified Code(s): J18.1 - Lobar pneumonia, unspecified organism (11) Hypertension Qualifiers: Hypertension type: essential hypertension Qualified Code(s): I10 - Essential (primary) hypertension (12) Type 2 diabetes mellitus 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 Diabetes mellitus complication status: with kidney complications Diabetes mellitus complication detail: with chronic kidney disease Chronic kidney disease stage: stage 4 (severe) Qualified Code(s): E11.22 - Type 2 diabetes mellitus with diabetic chronic kidney disease; N18.4 - Chronic kidney disease, stage 4 (severe ); Z79.4 - detention (current) use of insulin (13) DVT (deep venous thrombosis) Qualifiers: DVT location: lower extremity Affected thrombotic vein of extremity: femoral Chronicity: acute Laterality: left Qualified Code(s): I82.412 - Acute embolism and thrombosis of left femoral vein
[2017-12-03] MEDS: Aspirin Enteric Coated 81 MG Tablet PO SCH (08:48)
[2017-12-03] MEDS: Fluconazole 100 MG TABLET PO SCH (08:48)
[2017-12-03] MEDS: Metoprolol XL (24 HR) Succ 50 MG TAB.ER.24H PO SCH (08:48)
[2017-12-03] MEDS: Ascorbic Acid 500 MG TABLET PO SCH ×2 (08:48→21:45)
[2017-12-03] MEDS: Multivit/Ca/Min/Fe/FA 1 TAB TABLET PO SCH (08:48)
[2017-12-03] MEDS: amLODIPine 5 MG TABLET PO SCH (08:48)
[2017-12-03] MEDS: Insulin LISPRO 300 UNITS/3 ML VIAL SQ SCH ×4 (08:48→21:40)
[2017-12-03] MEDS: Miconazole 2% ointment 114 GM TUBE TP SCH (09:01)
--- NOTE | 2017-12-03 09:20 | Nephrology Progress Note ---
Date of Encounter: 12/03/17 Time of Encounter: 10:15 - Assessment and Plan (1) Acute kidney injury Current Visit: Yes Status: Acute TENISHA on CKD stage IV, Trending better. The initial TENISHA was with the b/l hydro a few weeks ago. However a few days ago, I suspect the Vanco was near 22 ( slightly supratherapeutic) plus with gross hematuria, but today's vanco level was 14 (goal is <20). I recommend caution with Vanco and ideally avoidance of nephrotoxins, if able. 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 (2) CKD (chronic kidney disease) stage 4, GFR 15-29 ml/min Current Visit: Yes Status: Chronic Baseline CKD stage IV (3) Anemia Current Visit: No Status: Acute will monitor Qualifiers: Anemia type: unspecified type Qualified Code(s): D64.9 - Anemia, unspecified (4) Bilateral hydronephrosis Current Visit: Yes Status: Acute s/p stents bilateral, appreciate urology's help. Elizondo in place to help reduce risks of recurrence (5) Metabolic acidosis Current Visit: Yes Status: Resolved Resolved, so I've recommended stopping the 1/2 NS +75mEq bicarb IVF, which appear to have been running consistently since Dr. Kearney had last seen the pt in the hospital. (6) Hypocalcemia Current Visit: Yes Status: Acute Worsening, and so I've ordered repletion. Also hypoalbuminemic, but the ionized Ca was also low. (7) Hypokalemia Current Visit: Yes Status: Acute Worsening, and so I've ordered repletion. Serum Mg was okay. Subjective Principal diagnosis: Hematuria, septic shock Interval history: Pt was s/e. She did not report much and was overall minimally talkative, but was clearly awake and aware. She did not affirm N/V/D or CP. Objective - Vital Signs Vital signs: Vital Signs Temp Pulse Resp BP Pulse Ox 12/03/17 08:26 99.3 F 69 16 137/78 96 12/03/17 04:21 98.1 F 82 18 155/87 95 12/03/17 00:29 98.0 F 85 17 182/106 96 12/02/17 19:54 98.9 F 88 18 145/67 94 12/02/17 16:34 98.7 F 68 18 170/68 97 12/02/17 11:29 98.1 F 67 19 168/77 98 Intake and Output 12/02/17 12/03/17 12/03/17 23:59 07:59 15:59 Intake Total 300 / 300 Output Total 400 / 400 950 / 950 Balance -400 / -400 -650 / -650 Intake: Oral 300 / 300 Output: Catheter 400 / 400 950 / 950 Other: Weight 108.1 kg Blood Glucose* 189 165 Patient Weight 12/03/17 23:59 Weight 108.1 kg - General Appearance General appearance: Present: appears started age, obese, chronically ill, fatigue, frail EENT: Present: ATNC, PERRL, mucous membranes moist Neck: Present: supple Respiratory: Present: rhonchi Cardiology: Present: edema, regular rate, regular rhythm, normal S1, normal S2 Gastrointestinal: Present: normoactive bowel sounds, no guarding, obese Integumentary: Present: warm and dry Neurologic: Present: no focal deficit, no asterixis Musculoskeletal: Present: no erythema, no cyanosis, no clubbing Psychiatric: Present: depressed, cooperative - Lab 12/05/17 04:40 12/05/17 04:40 Most recent lab results ABG pH 7.41 pH Units (7.32-7.45) 11/17/17 15:41 ABG pCO2 27 mmHg (35-45) L 11/17/17 15:41 ABG pO2 80 mmHg (85-104) L 11/17/17 15:41 ABG HCO3 17 mEq/L (21-27) L 11/17/17 15:41 ABG O2 Saturation 96 % (95-98) 11/17/17 15:41 Calcium 7.9 mg/dL (8.6-10.3) L 12/03/17 03:29 Phosphorus 4.0 mg/dL (2.7-4.5) 12/03/17 03:29 Magnesium 1.6 mg/dL (1.6-2.6) 12/03/17 03:29 Urine Creatinine 56 mg/dL 11/18/17 11:54 Urine Sodium 55.9 mEq/L 11/18/17 11:54 - Imaging Additional Comments: CT abd on admission was reviewed: Bilateral hydroureteronephrosis - VTE Documentation of Mechanical Device: Intermittent pneumatic compression device Consult Discharge Plan - Plan Referrals: Wale Lam DO [Primary Care Provider] -
[2017-12-03] MEDS ORDERED: Calcium Gluconate 2,000 MG in 0.9 % Sodium Chloride 100 ML IVPB ONE (09:23)
[2017-12-03] MEDS ORDERED: *HR* LORazepam 2 MG/ML VIAL IVP ONE (11:07)
[2017-12-03] MEDS: Insulin DETEMIR 100 UNIT/ML X5UNITS SQ SCH (21:40)
[2017-12-04 04:24] LABS: Basophils % 0.5 %; Eosinophils # 0.2 K/mcL (0.0-0.6); Eosinophils % 4.3 %; Hematocrit 28.6 % (35.3-44.9); Hemoglobin 8.7 g/dL (11.5-15.4); Immature Granulocytes % 0.9 % (0-4); Lymphocytes # 1.1 K/mcL (0.6-4.6); Lymphocytes % 19.5 %; Mean Corpuscular HGB Conc 30.4 g/dL (31.6-35.5); Mean Corpuscular Hemoglobin 27.4 pg (28.0-33.3); Mean Corpuscular Volume 90.2 fL (83.0-100.0); Mean Platelet Volume 9.7 fL (9.4-12.4); Monocytes # 0.7 K/mcL (0.0-1.3); Monocytes % 11.9 %; Neutrophils # 3.5 K/mcL (1.6-8.9); Platelet Count 292 K/mcL (140-400); Red Blood Count 3.17 M/mcL (3.82-4.97); Red Cell Distribution Width 15.1 % (11.5-14.5); Segmented Neutrophils % 62.9 %
[2017-12-04 04:42] LABS: Calcium 8.2 mg/dL (8.6-10.3); Magnesium 1.5 mg/dL (1.6-2.6); Potassium 3.2 mEq/L (3.5-5.1)
[2017-12-04] MEDS: Insulin LISPRO 300 UNITS/3 ML VIAL SQ SCH ×4 (07:35→22:29)
--- NOTE | 2017-12-04 07:54 | Internal Med Progress Note ---
Hospitalist Progress Note - Encounter Date of Encounter: 12/04/17 Time of Encounter: 11:00 - Subjective Interval History: Extensive discussion held with on 12/01/17 who was at the bedside and also daughter who called in and patient was reported to have been doing the same thing of not communicating much for approximate 4 weeks. Family suspects that this occurred after the of her son on 10/01/17 Psychiatry consulted and evaluated patient today (12/02/17) and suspects catatonic disorder with recommendations for consideration of placement at a geriatric psychiatry inpatient facility Will give 1 mg of Ativan today (12/03/17) per psychiatry recommendations to see if this helps with symptoms of catatonia Patient more interactive and mood has improved after given Ativan on 12/03/17 so today on 12/04/17 we will start scheduled this is of lorazepam per psychiatry recommendations. - Exam Vitals: Temp Pulse Resp BP Pulse Ox 98.4 F 75 18 159/84 100 12/04/17 06:53 12/04/17 06:53 12/04/17 06:53 12/04/17 06:53 12/04/17 06:53 Exam: Gen.: Patient has been more interactive since starting benzodiazepine ENT: Mucosal membranes moist Respiratory: Lungs are clear to auscultation bilaterally without any wheezing rhonchi or rales Cardiovascular: Normal S1 and S2 regular rate rhythm no murmurs rubs or gallops Abdomen: Soft, nontender and nondistended with positive bowel sounds Extremities: No lower extremity edema Skin: Normal color - Assessment and Plan (1) Catatonic disorder due to known physiological condition Current Visit: Yes Status: Acute Assessment and Plan: Psychiatry consulted and 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 Recommendations for trial of benzodiazepine and if no improvement of conditions , recommendations for hospitalization in a geriatric psychiatry unit. Patient was given Ativan yesterday and mood has improved per staff Will start patient on scheduled to resume pain per psychiatry recommendations and reevaluate in the a.m. (2) Grief at loss of child Current Visit: Yes Status: Acute Assessment and Plan: Patient not speaking much but family suspects that this began shortly after the of her son on 10/01/17 Talked to additional family members who were present at the bedside today () who reports that patient has not been speaking much after loss of her son and his . Psychiatry consulted and appreciate any recommendations (3) Acute encephalopathy Current Visit: Yes Status: Acute Assessment and Plan: Resolved Psychiatry recommendations as above Neurology was consulted with no further recommendations; patient not able to obtain MRI but neurology does not suspect ORACLE EBS ARCHITECT pathology. Infectious disease also consulted and does not suspect infectious etiology as there is no nuchal rigidity or meningismus to indicate ORACLE EBS ARCHITECT infection (4) Acute kidney injury superimposed on chronic kidney disease Current Visit: Yes Status: Resolved Assessment and Plan: Acute kidney injury likely due to obstructive uropathy with b/l hydroureteronehrsis and is currently s/p cystoscopy and b/l tent placement. Serum creatinine elevated this morning but continues to improve since admission : Scr 3.74->3.63->3.52->3.25->2.90 Nephrology following with recommendations for no RTT biochemical therapy (5) Hypokalemia Current Visit: Yes Status: Acute Assessment and Plan: Potassium 3.2 this morning Will give a one-time dose of potassium supplementation this morning (6) Anemia Current Visit: Yes Status: Acute Assessment and Plan: Stable at 8.7 this morning and was 8.5 yesterday Continue to monitor (7) UTI (urinary tract infection) Current Visit: Yes Status: Resolved Assessment and Plan: Infectious disease following with recommendations to complete a 14 day course of fluconazole (8) Hematuria Current Visit: Yes Status: Acute Assessment and Plan: Resolved; s/p cystoscopy and b/l ureteral stent placement patient currently stable and H&H relatively stable To maintain Elizondo until discharge per urology (9) Hydronephrosis Current Visit: No Status: Acute Assessment and Plan: Status post bilateral stents as above Patient to follow-up with urology as an outpatient. (10) Chronic systolic heart failure Current Visit: No Status: Acute Assessment and Plan: Patient has PPM and AICD with a LVEF of 30% Continue metoprolol. (11) Pneumonia Current Visit: Yes Status: Ruled-out Assessment and Plan: CT of the chest did not show pneumonia and patient is afebrile without leukocytosis therefore antibiotics discontinued per infectious disease recommendations. (12) Hypertension Current Visit: No Status: Chronic Assessment and Plan: Blood pressures are elevated so will add calcium channel maggie in addition to continue beta maggie (13) Type 2 diabetes mellitus Current Visit: No Status: Acute Assessment and Plan: Continue basal and sliding scale insulin coverage. (14) DVT (deep venous thrombosis) Current Visit: Yes Status: Acute Assessment and Plan: IVC filter placed - Time Spent with Patient Total time spent is greater than 50% in coordination of care (as documented) at patient's floor/unit and/or counseling patient: Internal Medicine: Result - Labs CBC & Chem 7: 12/04/17 04:00 12/04/17 04:00 Labs: Short CBC 12/04/17 Range/Units 04:00 WBC 5.5 (4.3-11.1) K/mcL Hgb 8.7 L (11.5-15.4) g/dL Hct 28.6 L (35.3-44.9) % Plt Count 292 (140-400) K/mcL Neutrophils # 3.5 (1.6-8.9) K/mcL BMP 12/03/17 12/04/17 03:29 04:00 Sodium 136 142 Potassium 3.1 L 3.2 L Chloride 102 101 Carbon Dioxide 26 32 H BUN 52 H 47 H Creatinine 3.25 H 2.90 H Glucose 153 H 143 H Calcium 7.9 L 8.2 L Liver Function 12/03/17 Range/Units 03:29 Albumin 2.4 L (3.5-5.7) g/dL - ABG Interpretation ABG results: ABG ABG pH 7.41 pH Units (7.32-7.45) 11/17/17 15:41 ABG pCO2 27 mmHg (35-45) L 11/17/17 15:41 ABG pO2 80 mmHg (85-104) L 11/17/17 15:41 ABG O2 Saturation 96 % (95-98) 11/17/17 15:41 PT/INR, D-dimer PT 14.0 Seconds (9.4-12.1) H 11/25/17 18:26 - VTE Documentation of Mechanical Device: Intermittent pneumatic compression device Consult Discharge Plan - Plan Referrals: Wale Lam DO [Primary Care Provider] - (6) Anemia Qualifiers: Anemia type: unspecified type Qualified Code(s): D64.9 - Anemia, unspecified (7) UTI (urinary tract infection) Qualifiers: Urinary tract infection type: site unspecified Hematuria presence: with hematuria Qualified Code(s): N39.0 - Urinary tract infection, site not specified; R31.9 - Hematuria, unspecified (8) Hematuria Qualifiers: Hematuria type: gross Qualified Code(s): R31.0 - Gross hematuria (9) Hydronephrosis Qualifiers: Hydronephrosis type: unspecified Qualified Code(s): N13.30 - Unspecified hydronephrosis (11) Pneumonia Qualifiers: Pneumonia type: due to unspecified organism Laterality: right Lung location : lower lobe of lung Qualified Code(s): J18.1 - Lobar pneumonia, unspecified organism (12) Hypertension Qualifiers: Hypertension type: essential hypertension Qualified Code(s): I10 - Essential (primary) hypertension (13) Type 2 diabetes mellitus Qualifiers: Diabetes mellitus mcc insulin use: with termite technician use Diabetes mellitus complication status: with kidney complications Diabetes mellitus complication detail: with chronic kidney disease Chronic kidney disease stage: stage 4 (severe) Qualified Code(s): E11.22 - Type 2 diabetes mellitus with diabetic chronic kidney disease; N18.4 - Chronic kidney disease, stage 4 (severe ); Z79.4 - care home (current) use of insulin (14) DVT (deep venous thrombosis) Qualifiers: DVT location: lower extremity Affected thrombotic vein of extremity: femoral Chronicity: acute Laterality: left Qualified Code(s): I82.412 - Acute embolism and thrombosis of left femoral vein
--- NOTE | 2017-12-04 08:19 | Event Note ---
Date of Encounter: 12/04/17 Time of Encounter: 08:18 Nephrology Chart Review Renal function slowly trending better. Remains mildly hypokalemic s/p KCl 40mEq po x2 yesterday; so I've renewed this Rx. Will reassess tomorrow (Tuesday).
[2017-12-04] MEDS ORDERED: *HR* LORazepam 2 MG/ML VIAL IVP ONE (10:14)
[2017-12-04] MEDS: Miconazole 2% ointment 114 GM TUBE TP SCH (10:38)
[2017-12-04] MEDS: Aspirin Enteric Coated 81 MG Tablet PO SCH (14:39)
[2017-12-04] MEDS: Magnesium Oxide 400 MG TABLET PO SCH ×2 (14:40→20:12)
[2017-12-04] MEDS: amLODIPine 5 MG TABLET PO SCH (14:40)
[2017-12-04] MEDS: Fluconazole 100 MG TABLET PO SCH (14:40)
[2017-12-04] MEDS: Ascorbic Acid 500 MG TABLET PO SCH ×2 (14:41→20:12)
[2017-12-04] MEDS: Multivit/Ca/Min/Fe/FA 1 TAB TABLET PO SCH (14:41)
[2017-12-04] MEDS: Metoprolol XL (24 HR) Succ 50 MG TAB.ER.24H PO SCH (14:41)
[2017-12-04] MEDS: *HR* LORazepam 0.5 MG TABLET PO SCH (20:12)
[2017-12-04] MEDS: Insulin DETEMIR 100 UNIT/ML X5UNITS SQ SCH (22:29)
[2017-12-05 04:51] LABS: Basophils # 0.1 K/mcL (0.0-0.2); Basophils % 0.9 %; Eosinophils # 0.5 K/mcL (0.0-0.6); Eosinophils % 5.7 %; Hematocrit 26.4 % (35.3-44.9); Hemoglobin 8.5 g/dL (11.5-15.4); Immature Granulocytes % 11.1 % (0-4); Lymphocytes # 1.4 K/mcL (0.6-4.6); Mean Corpuscular HGB Conc 32.2 g/dL (31.6-35.5); Mean Corpuscular Hemoglobin 29.4 pg (28.0-33.3); Mean Corpuscular Volume 91.3 fL (83.0-100.0); Mean Platelet Volume 10.2 fL (9.4-12.4); Neutrophils # 4.1 K/mcL (1.6-8.9); Nucleated Red Blood Cells 1.4 /100 WBC (0); Platelet Count 278 K/mcL (140-400); Red Blood Count 2.89 M/mcL (3.82-4.97); Red Cell Distribution Width 15.1 % (11.5-14.5)
[2017-12-05 05:08] LABS: Calcium 8.1 mg/dL (8.6-10.3); Potassium 4.9 mEq/L (3.5-5.1)
[2017-12-05 05:33] LABS: Platelet Estimate Normal (Normal)
[2017-12-05 05:36] LABS: Lymphocytes % 17.8 %; Monocytes % 12.5 %
--- NOTE | 2017-12-05 07:56 | Internal Med Progress Note ---
Hospitalist Progress Note - Encounter Date of Encounter: 12/05/17 Time of Encounter: 11:00 - Subjective Interval History: Extensive discussion held with on 12/01/17 who was at the bedside and also daughter who called in and patient was reported to have been doing the same thing of not communicating much for approximate 4 weeks. Family suspects that this occurred after the of her son on 10/01/17 Psychiatry consulted and evaluated patient today (12/02/17) and suspects catatonic disorder with recommendations for consideration of placement at a geriatric psychiatry inpatient facility Will give 1 mg of Ativan today (12/03/17) per psychiatry recommendations to see if this helps with symptoms of catatonia Patient more interactive and mood has improved after given Ativan on 12/03/17 so today on 12/04/17 will start scheduled this is of lorazepam per psychiatry recommendations. - Exam Vitals: Temp Pulse Resp BP Pulse Ox 98.2 F 86 16 144/72 95 12/05/17 07:06 12/05/17 07:06 12/05/17 07:06 12/05/17 07:06 12/05/17 07:06 Exam: Gen.: Nonacute distress, alert and oriented 3 ENT: Mucosal membranes moist Respiratory: Lungs are clear to auscultation bilaterally without any wheezing rhonchi or rales Cardiovascular: Normal S1 and S2 regular rate rhythm no murmurs rubs or gallops Abdomen: Soft, nontender and nondistended with positive bowel sounds Extremities: No lower extremity edema Skin: Normal color - Assessment and Plan (1) Catatonic disorder due to known physiological condition Current Visit: Yes Status: Acute Assessment and Plan: Psychiatry consulted and 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 Recommendations for trial of benzodiazepine and if no improvement of conditions , recommendations for hospitalization in a geriatric psychiatry unit. Patient was given Ativan yesterday and mood has improved per staff Continue current management with scheduled lorazepam per psychiatry recommendations Case management to be consulted for placement at geriatric psychiatric facility per psychiatrist recommendations. (2) Grief at loss of child Current Visit: Yes Status: Acute Assessment and Plan: Patient not speaking much but family suspects that this began shortly after the of her son on 10/01/17 Talked to additional family members who were present at the bedside today () who reports that patient has not been speaking much after loss of her son and his . Patient diagnosed with catatonic disorder with recommendations for placement at geriatric psychiatric facility as above (3) Acute encephalopathy Current Visit: Yes Status: Acute Assessment and Plan: Resolved; suspect related to catatonic disorder as above Psychiatry recommendations as above Neurology was consulted with no further recommendations; patient not able to obtain MRI but neurology does not suspect RECYCLABLE MATERIALS DISTRIBUTOR pathology. Infectious disease also consulted and does not suspect infectious etiology as there is no nuchal rigidity or meningismus to indicate RECYCLABLE MATERIALS DISTRIBUTOR infection (4) Acute kidney injury superimposed on chronic kidney disease Current Visit: Yes Status: Resolved Assessment and Plan: Acute kidney injury likely due to obstructive uropathy with b/l hydroureteronehrsis and is currently s/p cystoscopy and b/l tent placement. Serum creatinine elevated this morning but continues to improve since admission : Scr 3.74->3.63->3.52->3.25->2.90->2.82 Nephrology following with recommendations for no RTT biochemical therapy (5) Hypokalemia Current Visit: Yes Status: Acute Assessment and Plan: Resolved; continue to monitor (6) Anemia Current Visit: Yes Status: Acute Assessment and Plan: Stable at 8.5 this morning and was 8.7 yesterday Continue to monitor (7) UTI (urinary tract infection) Current Visit: Yes Status: Resolved Assessment and Plan: Infectious disease following with recommendations to complete a 14 day course of fluconazole (8) Hematuria Current Visit: Yes Status: Acute Assessment and Plan: Resolved; s/p cystoscopy and b/l ureteral stent placement patient currently stable and H&H relatively stable To maintain Elizondo until discharge per urology (9) Hydronephrosis Current Visit: No Status: Acute Assessment and Plan: Status post bilateral stents as above Patient to follow-up with urology as an outpatient. (10) Chronic systolic heart failure Current Visit: No Status: Acute Assessment and Plan: Patient has PPM and AICD with a LVEF of 30% Continue metoprolol. (11) Hypertension Current Visit: No Status: Chronic Assessment and Plan: Blood pressures are elevated so will add calcium channel maggie in addition to continue beta maggie (12) Type 2 diabetes mellitus Current Visit: No Status: Acute Assessment and Plan: Continue basal and sliding scale insulin coverage. (13) Pneumonia Current Visit: Yes Status: Ruled-out Assessment and Plan: CT of the chest did not show pneumonia and patient is afebrile without leukocytosis therefore antibiotics discontinued per infectious disease recommendations. (14) DVT (deep venous thrombosis) Current Visit: Yes Status: Acute Assessment and Plan: IVC filter placed - Time Spent with Patient Total time spent is greater than 50% in coordination of care (as documented) at patient's floor/unit and/or counseling patient: Internal Medicine: Result - Labs CBC & Chem 7: 12/05/17 04:40 12/05/17 04:40 Labs: Short CBC 12/05/17 Range/Units 04:40 WBC 7.9 (4.3-11.1) K/mcL Hgb 8.5 L (11.5-15.4) g/dL Hct 26.4 L (35.3-44.9) % Plt Count 278 (140-400) K/mcL Neutrophils # 4.1 (1.6-8.9) K/mcL BMP 12/05/17 04:40 Sodium 142 Potassium 4.9 Chloride 103 Carbon Dioxide 27 BUN 43 H Creatinine 2.82 H Glucose 110 H Calcium 8.1 L - ABG Interpretation ABG results: ABG ABG pH 7.41 pH Units (7.32-7.45) 11/17/17 15:41 ABG pCO2 27 mmHg (35-45) L 11/17/17 15:41 ABG pO2 80 mmHg (85-104) L 11/17/17 15:41 ABG O2 Saturation 96 % (95-98) 11/17/17 15:41 PT/INR, D-dimer PT 14.0 Seconds (9.4-12.1) H 11/25/17 18:26 - VTE Documentation of Mechanical Device: Intermittent pneumatic compression device Consult Discharge Plan - Plan Referrals: Wale Lam DO [Primary Care Provider] - (6) Anemia Qualifiers: Anemia type: unspecified type Qualified Code(s): D64.9 - Anemia, unspecified (7) UTI (urinary tract infection) Qualifiers: Urinary tract infection type: site unspecified Hematuria presence: with hematuria Qualified Code(s): N39.0 - Urinary tract infection, site not specified; R31.9 - Hematuria, unspecified (8) Hematuria Qualifiers: Hematuria type: gross Qualified Code(s): R31.0 - Gross hematuria (9) Hydronephrosis Qualifiers: Hydronephrosis type: unspecified Qualified Code(s): N13.30 - Unspecified hydronephrosis (11) Hypertension Qualifiers: Hypertension type: essential hypertension Qualified Code(s): I10 - Essential (primary) hypertension (12) Type 2 diabetes mellitus Qualifiers: Diabetes mellitus termite control representative insulin use: with termite control representative use Diabetes mellitus complication status: with kidney complications Diabetes mellitus complication detail: with chronic kidney disease Chronic kidney disease stage: stage 4 (severe) Qualified Code(s): E11.22 - Type 2 diabetes mellitus with diabetic chronic kidney disease; N18.4 - Chronic kidney disease, stage 4 (severe ); Z79.4 - assisted (current) use of insulin (13) Pneumonia Qualifiers: Pneumonia type: due to unspecified organism Laterality: right Lung location : lower lobe of lung Qualified Code(s): J18.1 - Lobar pneumonia, unspecified organism (14) DVT (deep venous thrombosis) Qualifiers: DVT location: lower extremity Affected thrombotic vein of extremity: femoral Chronicity: acute Laterality: left Qualified Code(s): I82.412 - Acute embolism and thrombosis of left femoral vein
[2017-12-05] MEDS: Insulin LISPRO 300 UNITS/3 ML VIAL SQ SCH ×4 (07:59→22:14)
--- NOTE | 2017-12-05 08:17 | Nephrology Progress Note ---
Date of Encounter: 12/05/17 Time of Encounter: 11:20 - Assessment and Plan (1) Acute kidney injury Current Visit: Yes Status: Acute Improving TENISHA on CKD stage IV, stable, secondary to the b/l hydro a few weeks ago. Continue to follow a renal protective strategy as able, and I recommend caution with Vanco and ideally avoidance of nephrotoxins. No urgent indications for SENIOR ENGINEERING TECH. Will sign-off at this point, but my colleague Dr. Kearney will be on-call starting tomorrow, and feel free to call or page with any questions. Thank you. (2) CKD (chronic kidney disease) stage 4, GFR 15-29 ml/min Current Visit: Yes Status: Chronic Baseline CKD stage IV (3) Anemia Current Visit: No Status: Acute will monitor Qualifiers: Anemia type: unspecified type Qualified Code(s): D64.9 - Anemia, unspecified (4) Bilateral hydronephrosis Current Visit: Yes Status: Acute s/p stents bilateral, appreciate urology's help. Elizondo in place to help reduce risks of recurrence (5) Hypocalcemia Current Visit: Yes Status: Acute Continue trending. Also hypoalbuminemic, but the ionized Ca was also low. (6) Hypokalemia Current Visit: Yes Status: Acute Improved with the KCl 40mEq PO BID. Today she is at 4.9, so I will stop the KCl. Subjective Principal diagnosis: Hematuria, septic shock Interval history: Pt was s/e. She did not affirm N/V/D or CP. Objective - Vital Signs Vital signs: Vital Signs Temp Pulse Resp BP Pulse Ox 12/05/17 07:06 98.2 F 86 16 144/72 95 12/05/17 05:49 97.5 F L 77 16 146/64 95 12/05/17 00:16 98.2 F 67 18 132/67 98 12/04/17 19:46 97.9 F 83 18 159/98 91 12/04/17 15:30 97.7 F 59 18 146/70 98 12/04/17 10:48 97.9 F 58 16 127/68 95 Intake and Output 12/04/17 12/05/17 12/05/17 23:59 07:59 15:59 Intake Total 120 / 120 Output Total 1100 / 1100 Balance 120 / 120 -1100 / -1100 Intake: Oral 120 / 120 Output: Catheter 1100 / 1100 Other: Meal Dinner Percent of Meal Consumed 0% Weight 107.5 kg Blood Glucose* 127 118 Patient Weight 12/05/17 23:59 Weight 107.5 kg - General Appearance Exam: General appearance: Present: obese, chronically ill, fatigue, frail EENT: Present: ATNC, PERRL, mucous membranes moist Neck: Present: supple Respiratory: Present: rhonchi Cardiology: Present: edema, regular rate, regular rhythm, normal S1, normal S2 Gastrointestinal: Present: normoactive bowel sounds, no guarding, obese Integumentary: Present: warm and dry Neurologic: Present: no focal deficit, no asterixis Musculoskeletal: Present: no erythema, no cyanosis, no clubbing Psychiatric: Present: quite, cooperative - Lab 12/05/17 04:40 12/05/17 04:40 Most recent lab results ABG pH 7.41 pH Units (7.32-7.45) 11/17/17 15:41 ABG pCO2 27 mmHg (35-45) L 11/17/17 15:41 ABG pO2 80 mmHg (85-104) L 11/17/17 15:41 ABG HCO3 17 mEq/L (21-27) L 11/17/17 15:41 ABG O2 Saturation 96 % (95-98) 11/17/17 15:41 Calcium 8.1 mg/dL (8.6-10.3) L 12/05/17 04:40 Phosphorus 4.0 mg/dL (2.7-4.5) 12/03/17 03:29 Magnesium 1.5 mg/dL (1.6-2.6) L 12/04/17 04:00 Urine Creatinine 56 mg/dL 11/18/17 11:54 Urine Sodium 55.9 mEq/L 11/18/17 11:54 - VTE Documentation of Mechanical Device: Intermittent pneumatic compression device Consult Discharge Plan - Plan Referrals: Wale Lam DO [Primary Care Provider] -
[2017-12-05] MEDS: Metoprolol XL (24 HR) Succ 50 MG TAB.ER.24H PO SCH (08:33)
[2017-12-05] MEDS: *HR* LORazepam 0.5 MG TABLET PO SCH (08:33)
[2017-12-05] MEDS: Aspirin Enteric Coated 81 MG Tablet PO SCH (08:33)
[2017-12-05] MEDS: Magnesium Oxide 400 MG TABLET PO SCH ×2 (08:33→20:02)
[2017-12-05] MEDS: Multivit/Ca/Min/Fe/FA 1 TAB TABLET PO SCH (08:33)
[2017-12-05] MEDS: Fluconazole 100 MG TABLET PO SCH (08:33)
[2017-12-05] MEDS: Ascorbic Acid 500 MG TABLET PO SCH ×2 (08:33→20:02)
[2017-12-05] MEDS: amLODIPine 5 MG TABLET PO SCH (08:34)
[2017-12-05] MEDS: Miconazole 2% ointment 114 GM TUBE TP SCH (08:35)
[2017-12-05] MEDS: *HR* LORazepam 1 MG TABLET PO SCH ×2 (15:45→20:02)
[2017-12-05] MEDS: Insulin DETEMIR 100 UNIT/ML X5UNITS SQ SCH (22:27)
[2017-12-06 04:17] LABS: Basophils % 0.5 %; Hemoglobin 9.4 g/dL (11.5-15.4); Red Cell Distribution Width 15.2 % (11.5-14.5)
[2017-12-06 04:22] LABS: Albumin 2.5 g/dL (3.5-5.7); Calcium 8.2 mg/dL (8.6-10.3); Magnesium 1.7 mg/dL (1.6-2.6); Potassium 4.2 mEq/L (3.5-5.1)
[2017-12-06 04:26] LABS: Eosinophils # 0.3 K/mcL (0.0-0.6); Eosinophils % 5.3 %; Hematocrit 29.3 % (35.3-44.9); Immature Granulocytes % 3.1 % (0-4); Immature Platelets 2.4 % (1.1-6.1); Lymphocytes # 1.2 K/mcL (0.6-4.6); Lymphocytes % 20.7 %; Mean Corpuscular HGB Conc 32.1 g/dL (31.6-35.5); Mean Corpuscular Hemoglobin 28.5 pg (28.0-33.3); Mean Corpuscular Volume 88.8 fL (83.0-100.0); Monocytes # 0.8 K/mcL (0.0-1.3); Monocytes % 12.7 %; Neutrophils # 3.4 K/mcL (1.6-8.9); Platelet Count 318 K/mcL (140-400); Segmented Neutrophils % 57.7 %
[2017-12-06 04:37] LABS: Platelet Estimate Normal (Normal)
--- NOTE | 2017-12-06 09:05 | Internal Med Progress Note ---
Hospitalist Progress Note - Encounter Date of Encounter: 12/06/17 Time of Encounter: 09:05 - Subjective Interval History: - Patient was seen and examined bedside. No fever overnight. Urine clear. - Exam Vitals: Temp Pulse Resp BP Pulse Ox 97.9 F 80 18 160/77 100 12/06/17 06:46 12/06/17 06:46 12/06/17 06:46 12/06/17 06:46 12/06/17 06:46 Exam: Gen.: Nonacute distress, alert and oriented 3 ENT: Mucosal membranes moist Respiratory: Lungs are clear to auscultation bilaterally without any wheezing rhonchi or rales Cardiovascular: Normal S1 and S2 regular rate rhythm no murmurs rubs or gallops Abdomen: Soft, nontender and nondistended with positive bowel sounds Extremities: No lower extremity edema Skin: Normal color - Assessment and Plan (1) UTI (urinary tract infection) Current Visit: Yes Status: Resolved (2) Acute kidney injury superimposed on chronic kidney disease Current Visit: Yes Status: Resolved (3) Hypertension Current Visit: No Status: Chronic (4) Hematuria Current Visit: Yes Status: Acute (5) Type 2 diabetes mellitus Current Visit: No Status: Acute (6) Chronic systolic heart failure Current Visit: No Status: Acute (7) Hydronephrosis Current Visit: No Status: Acute (8) Acute encephalopathy Current Visit: Yes Status: Acute (9) Anemia Current Visit: Yes Status: Acute (10) Pneumonia Current Visit: Yes Status: Ruled-out (11) DVT (deep venous thrombosis) Current Visit: Yes Status: Acute (12) Grief at loss of child Current Visit: Yes Status: Acute (13) Catatonic disorder due to known physiological condition Current Visit: Yes Status: Acute (14) Hypokalemia Current Visit: Yes Status: Acute - Summary of Assessment and Plan Summary of Assessment and Plan: Acute kidney injury superimposed on chronic kidney disease stage 4. - Likely from hematuria and b/l Hydronephrosis - Now stable. s/p stent placement - c/w plunkett on Dc. Hematuria - Initial Hematuria resolved. Was initially admitted to the ICU with iatrogenic hematuria - her CT showed large amounts of hemorrhagic products within the bladder- she is s/p cystoscopy and b/l ureteral stent placement , no evidence for any obvious tumors - patient currently stable post operatively. H&H relatively stable - started heparin for new Lt leg DVT after discussing with Urology. CBI bloody and with clots. Had to stop Heparin. Urology aware. urine now cleared. Hydronephrosis - See plan for hematuria. 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 - Patient not speaking much but family suspects that this began shortly after the of her son on 10/01/17. - Recommendations for trial of benzodiazepine and if no improvement of conditions, recommendations for hospitalization in a geriatric psychiatry unit. - Continue current management with scheduled lorazepam per psychiatry recommendations. If depression not significantly improved will consider Inpatient pyschiatric treatment. - Case management to be consulted for placement at geriatric psychiatric facility per psychiatrist recommendations. Urinary tract infection - patient was admitted to the ICU because of sepsis and hypotension secondary to her UTI . - Her UTI could be likely due to her bilateral hydroureteronephrosis and hematuria which has currently resolved. She is s/p cystoscopy and b/l stent placement - Had fever spikes on antibiotics. ATB were broaden. CT chest and CT abdomen/ pelvis did not show any focus of infection. CT brain unremarkable. - s/p empiric treatment with Vancomycin for 7 days and cefepime for 11 days. Now stopped. - Urine cultures grew shonna albicans x2. Unlikley to be the source, but given b/l stents currently being treated with PO fluconazole for 14 days. Last dose on 12/07 - ID recommendation appreciated. Acute encephalopathy - No focal deficits. - CT brain unremarkable. - Likely metabolic encephelopathy per neurology. No further tests. - resolved. Deep venous thrombosis - has new DVT in the left lower extremity - Cannot anticoagulate. plan for IVC today Hypertension - controlled. - Continue as needed hydralazine Type 2 diabetes mellitus - Continue basal and sliding scale insulin coverage. - Closely monitor glucose level and adjust insulin dose accordingly. Currently well controlled Chronic systolic heart failure - Patient has PPM and AICD. Appears euvolemic at this point. Continue metoprolol. - Temporarily hold losartan and Lasix at this point because of renal function. Closely monitor fluid status. DVT prophylaxis - Heparin stopped due to Hematuria. Will keep her on EPCD on Rt extremity. - Time Spent with Patient Total time spent is greater than 50% in coordination of care (as documented) at patient's floor/unit and/or counseling patient: Internal Medicine: Result - Labs CBC & Chem 7: 12/06/17 03:57 12/06/17 03:57 Labs: Short CBC 12/06/17 Range/Units 03:57 WBC 5.9 (4.3-11.1) K/mcL Hgb 9.4 L (11.5-15.4) g/dL Hct 29.3 L (35.3-44.9) % Plt Count 318 (140-400) K/mcL Neutrophils # 3.4 (1.6-8.9) K/mcL BMP 12/06/17 03:57 Sodium 141 Potassium 4.2 Chloride 103 Carbon Dioxide 28 BUN 42 H Creatinine 2.75 H Glucose 242 H Calcium 8.2 L Liver Function 12/06/17 Range/Units 03:57 Albumin 2.5 L (3.5-5.7) g/dL - ABG Interpretation ABG results: ABG ABG pH 7.41 pH Units (7.32-7.45) 11/17/17 15:41 ABG pCO2 27 mmHg (35-45) L 11/17/17 15:41 ABG pO2 80 mmHg (85-104) L 11/17/17 15:41 ABG O2 Saturation 96 % (95-98) 11/17/17 15:41 PT/INR, D-dimer PT 14.0 Seconds (9.4-12.1) H 11/25/17 18:26 - VTE Documentation of Mechanical Device: Intermittent pneumatic compression device Consult Discharge Plan - Plan Referrals: Wale Lam DO [Primary Care Provider] - (1) UTI (urinary tract infection) Qualifiers: Urinary tract infection type: site unspecified Hematuria presence: with hematuria Qualified Code(s): N39.0 - Urinary tract infection, site not specified; R31.9 - Hematuria, unspecified (3) Hypertension Qualifiers: Hypertension type: essential hypertension Qualified Code(s): I10 - Essential (primary) hypertension (4) Hematuria Qualifiers: Hematuria type: gross Qualified Code(s): R31.0 - Gross hematuria (5) Type 2 diabetes mellitus Qualifiers: Diabetes mellitus intermediate frame tender insulin use: with intermediate frame tender use Diabetes mellitus complication status: with kidney complications Diabetes mellitus complication detail: with chronic kidney disease Chronic kidney disease stage: stage 4 (severe) Qualified Code(s): E11.22 - Type 2 diabetes mellitus with diabetic chronic kidney disease; N18.4 - Chronic kidney disease, stage 4 (severe ); Z79.4 - oil heaterman (current) use of insulin (7) Hydronephrosis Qualifiers: Hydronephrosis type: unspecified Qualified Code(s): N13.30 - Unspecified hydronephrosis (9) Anemia Qualifiers: Anemia type: unspecified type Qualified Code(s): D64.9 - Anemia, unspecified (10) Pneumonia Qualifiers: Pneumonia type: due to unspecified organism Laterality: right Lung location : lower lobe of lung Qualified Code(s): J18.1 - Lobar pneumonia, unspecified organism (11) DVT (deep venous thrombosis) Qualifiers: DVT location: lower extremity Affected thrombotic vein of extremity: femoral Chronicity: acute Laterality: left Qualified Code(s): I82.412 - Acute embolism and thrombosis of left femoral vein
[2017-12-06] MEDS: Multivit/Ca/Min/Fe/FA 1 TAB TABLET PO SCH (10:35)
[2017-12-06] MEDS: Fluconazole 100 MG TABLET PO SCH (10:35)
[2017-12-06] MEDS: *HR* LORazepam 1 MG TABLET PO SCH ×3 (10:36→22:07)
[2017-12-06] MEDS: Magnesium Oxide 400 MG TABLET PO SCH ×2 (10:36→22:07)
[2017-12-06] MEDS: Ascorbic Acid 500 MG TABLET PO SCH ×2 (10:36→22:07)
[2017-12-06] MEDS: Metoprolol XL (24 HR) Succ 50 MG TAB.ER.24H PO SCH (10:36)
[2017-12-06] MEDS: amLODIPine 5 MG TABLET PO SCH (10:36)
[2017-12-06] MEDS: Aspirin Enteric Coated 81 MG Tablet PO SCH (10:36)
[2017-12-06] MEDS: Insulin LISPRO 300 UNITS/3 ML VIAL SQ SCH ×4 (10:37→22:08)
[2017-12-06] MEDS: Miconazole 2% ointment 114 GM TUBE TP SCH (12:18)
[2017-12-06] MEDS: Insulin DETEMIR 100 UNIT/ML X5UNITS SQ SCH (22:09)
[2017-12-07 06:45] LABS: Bilirubin,Urine Negative (Negative); Blood,Urine Moderate (Negative); Clarity,Urine Turbid (Clear); Color,Urine Yellow (Yellow); Glucose,Urine (UA) Normal (Normal); Ketones,Urine Negative (Negative); Leukocyte Esterase,Urine Large (Negative); Nitrite,Urine Negative (Negative); PH,Urine 7.5 pH Units (5.0-8.0); Protein,Urine >=300 mg/dL (Neg-Trace); Specific Gravity,Urine 1.015 (1.010-1.025); Urobilinogen,Urine Normal (Normal)
[2017-12-07 06:46] LABS: RBC,Urine TNTC per hpf (0-3); Squamous Epithelial Cell,Urine Many per lpf (None-Few); WBC,Urine TNTC per hpf (0-3)
[2017-12-07 07:07] LABS: Transitional Epi Cells,Urine Few per hpf (None-Few)
[2017-12-07 07:08] LABS: Bacteria,Urine Moderate per hpf (None-Few); Renal Epithelial Cells,Urine Few per hpf (None-Few)
[2017-12-07] MEDS: amLODIPine 5 MG TABLET PO SCH (08:15)
[2017-12-07] MEDS: Metoprolol XL (24 HR) Succ 50 MG TAB.ER.24H PO SCH (08:16)
[2017-12-07] MEDS: Multivit/Ca/Min/Fe/FA 1 TAB TABLET PO SCH (08:16)
[2017-12-07] MEDS: Ascorbic Acid 500 MG TABLET PO SCH ×2 (08:16→20:20)
[2017-12-07] MEDS: Fluconazole 100 MG TABLET PO SCH (08:16)
[2017-12-07] MEDS: Magnesium Oxide 400 MG TABLET PO SCH ×2 (08:16→20:21)
[2017-12-07] MEDS: *HR* LORazepam 1 MG TABLET PO SCH ×3 (08:17→20:21)
[2017-12-07] MEDS: Miconazole 2% ointment 114 GM TUBE TP SCH (08:22)
[2017-12-07] MEDS: Aspirin Enteric Coated 81 MG Tablet PO SCH (08:22)
[2017-12-07] MEDS: Insulin LISPRO 300 UNITS/3 ML VIAL SQ SCH ×4 (08:23→20:46)
--- NOTE | 2017-12-07 10:13 | Internal Med Progress Note ---
Hospitalist Progress Note - Encounter Date of Encounter: 12/07/17 Time of Encounter: 09:46 - Subjective Interval History: - Patient was seen and examined bedside. Urine clear. Does not offer any complains. Does not make eye contact. - Exam Vitals: Temp Pulse Resp BP Pulse Ox 97.6 F 77 19 144/79 95 12/07/17 06:55 12/07/17 06:55 12/07/17 06:55 12/07/17 06:55 12/07/17 06:55 Exam: Gen.: Nonacute distress, alert and oriented 3. Doesn't make eye contact. ENT: Mucosal membranes moist Respiratory: Lungs are clear to auscultation bilaterally without any wheezing rhonchi or rales Cardiovascular: Normal S1 and S2 regular rate rhythm no murmurs rubs or gallops Abdomen: Soft, nontender and nondistended with positive bowel sounds Extremities: No lower extremity edema Skin: Normal color Pysc: Not making eye contact. Speaks minimally. - Assessment and Plan (1) UTI (urinary tract infection) Current Visit: Yes Status: Resolved (2) Acute kidney injury superimposed on chronic kidney disease Current Visit: Yes Status: Resolved (3) Hypertension Current Visit: No Status: Chronic (4) Hematuria Current Visit: Yes Status: Acute (5) Type 2 diabetes mellitus Current Visit: No Status: Acute (6) Chronic systolic heart failure Current Visit: No Status: Acute (7) Hydronephrosis Current Visit: No Status: Acute (8) Acute encephalopathy Current Visit: Yes Status: Acute (9) Anemia Current Visit: Yes Status: Acute (10) Pneumonia Current Visit: Yes Status: Ruled-out (11) DVT (deep venous thrombosis) Current Visit: Yes Status: Acute (12) Grief at loss of child Current Visit: Yes Status: Acute (13) Catatonic disorder due to known physiological condition Current Visit: Yes Status: Acute (14) Hypokalemia Current Visit: Yes Status: Acute - Summary of Assessment and Plan Summary of Assessment and Plan: Acute kidney injury superimposed on chronic kidney disease stage 4. - Likely from hematuria and b/l Hydronephrosis - Now stable. s/p stent placement - c/w plunkett on Dc. f/u with urology in 2-3 weeks Hematuria - Initial Hematuria resolved. Was initially admitted to the ICU with iatrogenic hematuria - her CT showed large amounts of hemorrhagic products within the bladder- she is s/p cystoscopy and b/l ureteral stent placement , no evidence for any obvious tumors - rebleed with heparin for DVT. Now of AC given hematuria on AC. s/p IVC Hydronephrosis - See plan for hematuria. 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 - Patient not speaking much but family suspects that this began shortly after the of her son on 10/01/17. - some improvement with lorazepam. To start neudexta per psych(non formulay) recommendations for hospitalization in a geriatric psychiatry unit per psychiatry. - Case management working for placement at geriatric psychiatric facility per psychiatrist recommendations. Urinary tract infection - patient was admitted to the ICU because of sepsis and hypotension secondary to her UTI . - Her UTI could be likely due to her bilateral hydroureteronephrosis and hematuria which has currently resolved. She is s/p cystoscopy and b/l stent placement - Had fever spikes on antibiotics. ATB were broaden. CT chest and CT abdomen/ pelvis did not show any focus of infection. CT brain unremarkable. - s/p empiric treatment with Vancomycin for 7 days and cefepime for 11 days. Now stopped. - Urine cultures grew shonna albicans x2. Unlikley to be the source, but given b/l stents currently being treated with PO fluconazole for 14 days. Last dose today. - ID recommendation appreciated. Acute encephalopathy - No focal deficits. - CT brain unremarkable. - Likely metabolic encephelopathy per neurology. No further tests. - resolved. Deep venous thrombosis - has new DVT in the left lower extremity - Cannot anticoagulate. s/p IVC Hypertension - controlled. - Continue amlodipine and prn hydralazine. Type 2 diabetes mellitus - Continue basal and sliding scale insulin coverage. Levemir increased to 20 for better control. Chronic systolic heart failure - Patient has PPM and AICD. Appears euvolemic at this point. Continue metoprolol. - Temporarily hold losartan and Lasix at this point because of renal function. Closely monitor fluid status. DVT prophylaxis - Heparin stopped due to Hematuria. s/p IVC. EPCD. - Time Spent with Patient Total time spent is greater than 50% in coordination of care (as documented) at patient's floor/unit and/or counseling patient: Internal Medicine: Result - Labs CBC & Chem 7: 12/06/17 03:57 12/06/17 03:57 Labs: Urine 12/07/17 Range/Units 06:11 Urine Color Yellow (Yellow) Urine Clarity Turbid A (Clear) Urine pH 7.5 (5.0-8.0) pH Units Ur Specific [place] 1.015 (1.010-1.025) Urine Protein >=300 H (Neg-Trace) mg/dL Urine Glucose (UA) Normal (Normal) mg/dL - ABG Interpretation ABG results: ABG ABG pH 7.41 pH Units (7.32-7.45) 11/17/17 15:41 ABG pCO2 27 mmHg (35-45) L 11/17/17 15:41 ABG pO2 80 mmHg (85-104) L 11/17/17 15:41 ABG O2 Saturation 96 % (95-98) 11/17/17 15:41 PT/INR, D-dimer PT 14.0 Seconds (9.4-12.1) H 11/25/17 18:26 - VTE Documentation of Mechanical Device: Intermittent pneumatic compression device Consult Discharge Plan - Plan Additional Instructions: 1. Consider ECT treatment 2. Start neudexta 20mg/10mg currently nonformulary in hospital for catatonic features and affect changes. 3. Continue lorazepam. 4. Continue to recomment geriatric psychatric unit. Referrals: Wale Lam DO [Primary Care Provider] - (1) UTI (urinary tract infection) Qualifiers: Urinary tract infection type: site unspecified Hematuria presence: with hematuria Qualified Code(s): N39.0 - Urinary tract infection, site not specified; R31.9 - Hematuria, unspecified (3) Hypertension Qualifiers: Hypertension type: essential hypertension Qualified Code(s): I10 - Essential (primary) hypertension (4) Hematuria Qualifiers: Hematuria type: gross Qualified Code(s): R31.0 - Gross hematuria (5) Type 2 diabetes mellitus Qualifiers: Diabetes mellitus termite renewal inspector insulin use: with mcc use Diabetes mellitus complication status: with kidney complications Diabetes mellitus complication detail: with chronic kidney disease Chronic kidney disease stage: stage 4 (severe) Qualified Code(s): E11.22 - Type 2 diabetes mellitus with diabetic chronic kidney disease; N18.4 - Chronic kidney disease, stage 4 (severe ); Z79.4 - ocean transportation intermediary (current) use of insulin (7) Hydronephrosis Qualifiers: Hydronephrosis type: unspecified Qualified Code(s): N13.30 - Unspecified hydronephrosis (9) Anemia Qualifiers: Anemia type: unspecified type Qualified Code(s): D64.9 - Anemia, unspecified (10) Pneumonia Qualifiers: Pneumonia type: due to unspecified organism Laterality: right Lung location : lower lobe of lung Qualified Code(s): J18.1 - Lobar pneumonia, unspecified organism (11) DVT (deep venous thrombosis) Qualifiers: DVT location: lower extremity Affected thrombotic vein of extremity: femoral Chronicity: acute Laterality: left Qualified Code(s): I82.412 - Acute embolism and thrombosis of left femoral vein
--- NOTE | 2017-12-07 11:28 | Consult Note ---
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 Pt denied any side effects to current medications. Pt noted she felt safe and comfortable on the unit. PT was limited in conversation. Pt denied any depression. Pt denied any SI or HI. Pt continues to display catatonic features. PT noted she did feel safe and comfortable on the unit. On the interview continue to note rasp reflex mutism immobility gegenhalten posturing stupor. She had perseveration she had ideomotor apraxia 1.Interval hx 2.Continue current medications 3.Review current labs 4.Pt had an opportunity to ask questions and discuss current treatment plan. 5.Supportive therapy was provided 6.Pt encouraged to consider group or individual therapy 7.Pt was in agreement with treatment plan. 8.Pt was educated on the risks benefits and side effects of current medications. 9. Consider ECT treatment 10. Start neudexta 20mg/10mg currently nonformulary in hospital for catatonic features and affect changes. 11. Continue lorazepam. 12. Continue to recomment geriatric psychatric unit. CC: Karen Foss MD Past Med Surg Social Fam HX - Past Medical History Medical history: cardiomyopathy, CHF, coronary artery disease, CVA, diabetes, GERD, hyperlipidemia, hypertension, kidney stones, myocardial infarction, peripheral artery disease, renal disease, TIA - Past Psychiatric History Psychiatric history: Reports: depression, previous psychiatric hospitalization Family psychiatric history: Yes Family History of Suicide: None - Past Surgical History Surgical History: appendectomy, breast surgery, carotid endarterectomy, cholecystectomy, coronary bypass (CABG), hysterectomy, pacemaker/AICD, LE vascular intervention - Social History Smoking Status: Former smoker Smokeless Tobacco Status: No Alcohol use: none Drug use: none - Family History Mother Living Status: Hx Family Cardiac Disorders: Yes (HTN) Hx Family Endocrine Disorder: Yes (diabetes) Hx Family Neurologic Disorders: Yes (2 strokes) Father Living Status: Hx Family Cardiac Disorders: Yes Hx Family Respiratory Disorders: Yes Hx Family Neurologic Disorders: Yes Medications & Allergies Aspirin Enteric Coated [Aspirin EC] 81 mg PO DAILY 08/20/15 [History] Metoprolol XL (24 HR) Succ [Toprol Xl] 50 mg PO DAILY #30 tab.er.24h 01/07/16 [ Rx] Insulin Glargine,Hum.rec.anlog [Toujeo Solostar] 45 units SQ HS 06/10/16 [ History] Multivit-Minerals/Folic/Ginkgo [One Daily For Women 50+ Adv Tb] 1 tab PO DAILY 06/10/16 [History] Furosemide [Lasix] 40 mg PO QAM 10/03/16 [History] Insulin ASPART [Novolog Flexpen] 25 unit SQ TIDWM 10/03/16 [History] Losartan Potassium [Cozaar] 50 mg PO DAILY 10/03/16 [History] Clopidogrel [Plavix] 75 mg PO DAILY 11/03/17 [History] Oxybutynin Chloride [Ditropan Xl] 10 mg PO DAILY 11/03/17 [History] Rosuvastatin Calcium [Rosuvastatin Calcium] 10 mg PO HS 11/03/17 [History] Ascorbic Acid [Vitamin C] 500 mg PO BID 11/17/17 [History] Ergocalciferol (VITAMIN D2) [Vitamin D2] 50,000 unit PO QWEEK 11/17/17 [History] Furosemide [Lasix] 20 mg PO QPM 11/17/17 [History] 3 Allergy/AdvReac Type Severity Reaction Status Date / Time venom-honey bee Allergy Severe Swelling Verified 11/03/17 10:53 [bee venom (honey bee)] of Lip/Tongue/Throat Cortisone Allergy Mild Hives Verified 11/03/17 10:53 Penicillins Allergy See Verified 11/03/17 10:53 Comments NSAIDS (Non-Steroidal AdvReac Mild UPSET Verified 11/03/17 10:53 Anti-Inflamma STOMACH cefazolin [From Ancef] AdvReac Hives Verified 11/03/17 10:53 Mmbjlja-Nvd-Anv Reductase AdvReac Muscle Pain Verified 11/03/17 10:53 Inhibitor [Statins] GRAPE FLAVOR Allergy Mild Swelling Uncoded 11/03/17 10:53 of the Eye Review of Systems Constitutional: Denies: fever, chills, weakness, weight change Eyes: Denies: eye pain, vision change Ears, Nose, Throat: Denies: ear pain, throat pain, dental pain, hearing loss, congestion Cardiovascular: Denies: chest pain, palpitations, dyspnea on exertion Respiratory: Denies: cough, dyspnea, wheezes Gastrointestinal: Denies: abdominal pain, nausea, vomiting, diarrhea, constipation Genitourinary female: Denies: urgency, dysuria, frequency, abnormal menses, dyspareunia Musculoskeletal: Denies: joint swelling, joint pain Integumentary: Denies: rash, lesions, pruritus Neurological: Reports: weakness, confusion, memory loss. Denies: headache, numbness Psychiatric: Reports: depression Endocrine: Denies: fatigue, heat or cold intolerance Hematologic/Lymphatic: Denies: easy bruising, lymphadenopathy Allergic/Immunologic: Denies: urticaria, itchy eyes Psychiatry Exam - Constitutional Vitals: Temp Pulse Resp BP Pulse Ox 98.1 F 68 18 122/69 93 12/07/17 10:59 12/07/17 10:59 12/07/17 10:59 12/07/17 10:59 12/07/17 10:59 General appearance: obese - Musculoskeletal Gait: unsteady Station: relaxed Strength & Tone: mild weakness - Psychiatric Patient Orientation: Yes Person, Yes Place Level of alertness: Sedated Behavior: calm, cooperative Psychomotor activity: Slowed Eye Contact: Minimal Contact Mood Description: Depressed Affect description: congruent with mood Speech Volume: Normal Speech pattern: normal rate, slowed Language & Vocabulary: consistent with education Thought Process: Intact, Slowed Thinking Thought Content: No Suicidal ideation, No Homicidal ideation Perceptual Disturbances: No Auditory hallucinations, No Visual hallucinations Attention Span Ability: Unable to Sustain Attention Memory Description: Recent Impaired, Remote Impaired Patient Reliability: Questionable Historian Fund of knowledge: Yes average Intelligence Estimate: Average Judgment: Poor Insight: Minimal Results - Labs Labs: Laboratory Last Values WBC 5.9 K/mcL (4.3-11.1) 12/06/17 03:57 RBC 3.30 M/mcL (3.82-4.97) L 12/06/17 03:57 Hgb 9.4 g/dL (11.5-15.4) L 12/06/17 03:57 Hct 29.3 % (35.3-44.9) L 12/06/17 03:57 MCV 88.8 fL (83.0-100.0) 12/06/17 03:57 MCH 28.5 pg (28.0-33.3) 12/06/17 03:57 MCHC 32.1 g/dL (31.6-35.5) 12/06/17 03:57 RDW 15.2 % (11.5-14.5) H 12/06/17 03:57 Plt Count 318 K/mcL (140-400) 12/06/17 03:57 MPV 10.0 fL (9.4-12.4) 12/06/17 03:57 Immature Gran % 3.1 % (0-4) 12/06/17 03:57 Seg Neutrophils % 57.7 % 12/06/17 03:57 Band Neutrophils % 17.0 % (0-4) H 11/19/17 06:21 Lymphocytes % 20.7 % 12/06/17 03:57 Monocytes % 12.7 % 12/06/17 03:57 Eosinophils % 5.3 % 12/06/17 03:57 Basophils % 0.5 % 12/06/17 03:57 Neutrophils # 3.4 K/mcL (1.6-8.9) 12/06/17 03:57 Lymphocytes # 1.2 K/mcL (0.6-4.6) 12/06/17 03:57 Monocytes # 0.8 K/mcL (0.0-1.3) 12/06/17 03:57 Eosinophils # 0.3 K/mcL (0.0-0.6) 12/06/17 03:57 Basophils # 0.0 K/mcL (0.0-0.2) 12/06/17 03:57 Nucleated RBCs/100 WBC 1.4 /100 WBC (0) H 12/05/17 04:40 Platelet Estimate Normal (Normal) 12/06/17 03:57 Immature Plt Fraction 2.4 % (1.1-6.1) 12/06/17 03:57 ESR 100 mm/hr (0-15) H 11/25/17 12:15 PT 14.0 Seconds (9.4-12.1) H 11/25/17 18:26 INR 1.2 11/25/17 18:26 Heparin Anti-Xa, Unfract 0.38 IU/mL (0.30-0.70) 11/27/17 08:49 Sample Site L Radial 11/17/17 15:41 ABG pH 7.41 pH Units (7.32-7.45) 11/17/17 15:41 ABG pCO2 27 mmHg (35-45) L 11/17/17 15:41 ABG pO2 80 mmHg (85-104) L 11/17/17 15:41 ABG HCO3 17 mEq/L (21-27) L 11/17/17 15:41 ABG Total CO2 18 mEq/L (20-26) L 11/17/17 15:41 ABG O2 Saturation 96 % (95-98) 11/17/17 15:41 ABG Base Excess -7 mEq/L (-2 to 3) L 11/17/17 15:41 David Test Positive 11/17/17 15:41 O2 Delivery Device Room Air 11/17/17 15:41 Sodium 141 mEq/L (136-145) 12/06/17 03:57 Potassium 4.2 mEq/L (3.5-5.1) 12/06/17 03:57 Chloride 103 mEq/L (98-107) 12/06/17 03:57 Carbon Dioxide 28 mEq/L (23-29) 12/06/17 03:57 BUN 42 mg/dL (8-23) H 12/06/17 03:57 Creatinine 2.75 mg/dL (0.60-1.20) H 12/06/17 03:57 Est GFR ( Amer) 21 (> 60) L 12/06/17 03:57 Est GFR (Non-Af Amer) 17 (> 60) L 12/06/17 03:57 BUN/Creatinine Ratio 15 (6-26) 12/06/17 03:57 Glucose 242 mg/dL (70-105) H 12/06/17 03:57 POC Glucose 253 mg/dL (70-99) H 12/06/17 20:36 Calculated Osmolality 310 (280-300) H 12/06/17 03:57 Lactic Acid 1.0 mmol/L (0.5-2.2) 11/17/17 23:15 Calcium 8.2 mg/dL (8.6-10.3) L 12/06/17 03:57 Venous Ioniz Calcium 0.97 mmol/L (1.15-1.35) L 12/03/17 03:44 Phosphorus 4.0 mg/dL (2.7-4.5) 12/03/17 03:29 Magnesium 1.7 mg/dL (1.6-2.6) 12/06/17 03:57 Iron 13 mcg/dL (50-170) L 11/25/17 04:00 % Saturation 7 % (15-50) L 11/25/17 04:00 Transferrin 141 mg/dL (203-362) L 11/25/17 04:00 Total Bilirubin 0.6 mg/dL (0.3-1.0) 11/25/17 12:15 Direct Bilirubin 0.2 mg/dL (0.0-0.2) 11/25/17 12:15 Indirect Bilirubin 0.4 mg/dL (0.0-1.2) 11/25/17 12:15 AST 19 Units/L (13-39) 11/25/17 12:15 ALT 10 Units/L (7-52) 11/25/17 12:15 Alkaline Phosphatase 122 Units/L (34-104) H 11/25/17 12:15 Creatine Kinase 71 Units/L (30-223) 11/17/17 05:17 C-Reactive Protein 204 mg/L (Less than 10) H 11/25/17 12:15 Serum Total Protein 6.4 g/dL (6.4-8.9) 11/25/17 12:15 Albumin 2.5 g/dL (3.5-5.7) L 12/06/17 03:57 Globulin 3.9 g/dL (2.4-3.5) H 11/25/17 12:15 Albumin/Globulin Ratio 0.6 (1.1-2.2) L 11/25/17 12:15 Amylase 20 Units/L (29-103) L 11/25/17 12:15 Lipase 8 Units/L (11-82) L 11/25/17 12:15 Vitamin B12 717 pg/mL (250-1100) 11/25/17 04:00 Folate > 22.3 ng/mL (3.0-16.0) H 11/25/17 04:00 Procalcitonin 0.69 ng/mL (<=0.07) H 11/25/17 12:15 Ur Specimen Adequacy See below A 11/17/17 04:58 Urine Color Yellow (Yellow) 12/07/17 06:11 Urine Clarity Turbid (Clear) A 12/07/17 06:11 Urine pH 7.5 pH Units (5.0-8.0) 12/07/17 06:11 Ur Specific [place] 1.015 (1.010-1.025) 12/07/17 06:11 Urine Protein >=300 mg/dL (Neg-Trace) H 12/07/17 06:11 Urine Glucose (UA) Normal mg/dL (Normal) 12/07/17 06:11 Urine Ketones Negative mg/dL (Negative) 12/07/17 06:11 Urine Blood Moderate (Negative) H 12/07/17 06:11 Urine Nitrite Negative (Negative) 12/07/17 06:11 Urine Bilirubin Negative (Negative) 12/07/17 06:11 Urine Urobilinogen Normal mg/dL (Normal) 12/07/17 06:11 Ur Leukocyte Esterase Large (Negative) H 12/07/17 06:11 Urine Microscopic RBC TNTC per hpf (0-3) H 12/07/17 06:11 Urine Microscopic WBC TNTC per hpf (0-3) H 12/07/17 06:11 Ur Eosinophil Smear 0 % (None Seen) 11/18/17 11:54 Ur Squamous Epith Cells Many per lpf (None-Few) H 12/07/17 06:11 Ur Transition Epith Cell Few per hpf (None-Few) 12/07/17 06:11 Ur Renal Epithelial Cell Few per hpf (None-Few) 12/07/17 06:11 Urine Bacteria Moderate per hpf (None-Few) H 12/07/17 06:11 Ur Culture Indicated? NO. (NO) A 12/07/17 06:11 Urine Creatinine 56 mg/dL 11/18/17 11:54 Urine Sodium 55.9 mEq/L 11/18/17 11:54 Vancomycin Trough 43 mcg/mL (5-10) H 11/27/17 08:49 Random Vancomycin 14 mcg/mL 12/03/17 03:29 Hep Bs Antigen Nonreactive (Nonreactive) 11/21/17 12:26 Hep Bs Antibody 0.00 mIU/mL 11/21/17 12:26 Blood Type O POSITIVE 11/29/17 09:53 Antibody Screen NEGATIVE 11/29/17 09:53 Crossmatch See Detail 11/29/17 09:53 Consult Discharge Plan - Plan Additional Instructions: 1. Consider ECT treatment 2. Start neudexta 20mg/10mg currently nonformulary in hospital for catatonic features and affect changes. 3. Continue lorazepam. 4. Continue to recomment geriatric psychatric unit. Referrals: Wale Lam DO [Primary Care Provider] -
[2017-12-07] MEDS ORDERED: Insulin DETEMIR 100 UNIT/ML X5UNITS SQ SCH (21:00)
[2017-12-08] MEDS: Aspirin Enteric Coated 81 MG Tablet PO SCH (09:11)
[2017-12-08] MEDS: Ascorbic Acid 500 MG TABLET PO SCH (09:11)
[2017-12-08] MEDS: Multivit/Ca/Min/Fe/FA 1 TAB TABLET PO SCH (09:11)
[2017-12-08] MEDS: amLODIPine 5 MG TABLET PO SCH (09:11)
[2017-12-08] MEDS: Insulin LISPRO 300 UNITS/3 ML VIAL SQ SCH ×3 (09:12→17:11)
[2017-12-08] MEDS: *HR* LORazepam 1 MG TABLET PO SCH ×2 (09:12→15:12)
[2017-12-08] MEDS: Metoprolol XL (24 HR) Succ 50 MG TAB.ER.24H PO SCH (09:12)
[2017-12-08] MEDS: Magnesium Oxide 400 MG TABLET PO SCH (09:12)
[2017-12-08] MEDS: Miconazole 2% ointment 114 GM TUBE TP SCH (09:13)
--- NOTE | 2017-12-08 11:05 | Internal Med Progress Note ---
Hospitalist Progress Note - Encounter Date of Encounter: 12/08/17 Time of Encounter: 11:04 - Subjective Interval History: - Patient was seen and examined bedside. Urine clear. No new complains. - Exam Vitals: Temp Pulse Resp BP Pulse Ox 98.4 F 86 18 138/62 93 12/08/17 10:56 12/08/17 10:56 12/08/17 10:56 12/08/17 10:56 12/08/17 10:56 Exam: Gen.: Nonacute distress, alert and oriented 3. Doesn't make eye contact. ENT: Mucosal membranes moist Respiratory: Lungs are clear to auscultation bilaterally without any wheezing rhonchi or rales Cardiovascular: Normal S1 and S2 regular rate rhythm no murmurs rubs or gallops Abdomen: Soft, nontender and nondistended with positive bowel sounds Extremities: No lower extremity edema Skin: Normal color Pysc: Not making eye contact. Speaks minimally. - Assessment and Plan (1) UTI (urinary tract infection) Current Visit: Yes Status: Resolved (2) Acute kidney injury superimposed on chronic kidney disease Current Visit: Yes Status: Resolved (3) Hypertension Current Visit: No Status: Chronic (4) Hematuria Current Visit: Yes Status: Acute (5) Type 2 diabetes mellitus Current Visit: No Status: Acute (6) Chronic systolic heart failure Current Visit: No Status: Acute (7) Hydronephrosis Current Visit: No Status: Acute (8) Acute encephalopathy Current Visit: Yes Status: Acute (9) Anemia Current Visit: Yes Status: Acute (10) Pneumonia Current Visit: Yes Status: Ruled-out (11) DVT (deep venous thrombosis) Current Visit: Yes Status: Acute (12) Grief at loss of child Current Visit: Yes Status: Acute (13) Catatonic disorder due to known physiological condition Current Visit: Yes Status: Acute (14) Hypokalemia Current Visit: Yes Status: Acute - Time Spent with Patient Total time spent is greater than 50% in coordination of care (as documented) at patient's floor/unit and/or counseling patient: Internal Medicine: Result - Labs CBC & Chem 7: 12/06/17 03:57 12/06/17 03:57 - ABG Interpretation ABG results: ABG ABG pH 7.41 pH Units (7.32-7.45) 11/17/17 15:41 ABG pCO2 27 mmHg (35-45) L 11/17/17 15:41 ABG pO2 80 mmHg (85-104) L 11/17/17 15:41 ABG O2 Saturation 96 % (95-98) 11/17/17 15:41 PT/INR, D-dimer PT 14.0 Seconds (9.4-12.1) H 11/25/17 18:26 - VTE Documentation of Mechanical Device: Intermittent pneumatic compression device Consult Discharge Plan - Plan Additional Instructions: 1. Consider ECT treatment 2. Start neudexta 20mg/10mg currently nonformulary in hospital for catatonic features and affect changes. 3. Continue lorazepam. 4. Continue to recomment geriatric psychatric unit. Referrals: Wale Lam DO [Primary Care Provider] - (1) UTI (urinary tract infection) Qualifiers: Urinary tract infection type: site unspecified Hematuria presence: with hematuria Qualified Code(s): N39.0 - Urinary tract infection, site not specified; R31.9 - Hematuria, unspecified (3) Hypertension Qualifiers: Hypertension type: essential hypertension Qualified Code(s): I10 - Essential (primary) hypertension (4) Hematuria Qualifiers: Hematuria type: gross Qualified Code(s): R31.0 - Gross hematuria (5) Type 2 diabetes mellitus Qualifiers: Diabetes mellitus technician terminal and repeater insulin use: with [facility] use Diabetes mellitus complication status: with kidney complications Diabetes mellitus complication detail: with chronic kidney disease Chronic kidney disease stage: stage 4 (severe) Qualified Code(s): E11.22 - Type 2 diabetes mellitus with diabetic chronic kidney disease; N18.4 - Chronic kidney disease, stage 4 (severe ); Z79.4 - shelter (current) use of insulin (7) Hydronephrosis Qualifiers: Hydronephrosis type: unspecified Qualified Code(s): N13.30 - Unspecified hydronephrosis (9) Anemia Qualifiers: Anemia type: unspecified type Qualified Code(s): D64.9 - Anemia, unspecified (10) Pneumonia Qualifiers: Pneumonia type: due to unspecified organism Laterality: right Lung location : lower lobe of lung Qualified Code(s): J18.1 - Lobar pneumonia, unspecified organism (11) DVT (deep venous thrombosis) Qualifiers: DVT location: lower extremity Affected thrombotic vein of extremity: femoral Chronicity: acute Laterality: left Qualified Code(s): I82.412 - Acute embolism and thrombosis of left femoral vein
--- NOTE | 2017-12-08 13:32 | Discharge Summary ---
- NOTES TO OUTPATIENT PROVIDER Notes to Outpatient Provider: Lisinopril was on hold due to TENISHA. Now her renal function at baseline. Started on furosemide for CHF at home dose. Monitor renal function and consider resuming lisinopril given CHF and CKD. Needs urology follow-up and has a indwelling Elizondo catheter. Currently has IVC filter for Lt DVT. Could not anticoagulate in hospital due to recurrent hematuria. 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 Finished course of antibiotic for UTI. Orders not resulted at time of discharge: Pending orders 12/03/17 03:36 Ionized Calcium,venous blood DAILY Date of Encounter: 12/08/17 Time of Encounter: 13:20 - Discharge Diagnosis (1) UTI (urinary tract infection) Priority: Primary Status: Resolved Qualifiers: Urinary tract infection type: site unspecified Hematuria presence: with hematuria Qualified Code(s): N39.0 - Urinary tract infection, site not specified; R31.9 - Hematuria, unspecified (2) Acute kidney injury superimposed on chronic kidney disease Priority: Primary Status: Resolved (3) Hypertension Priority: Secondary Status: Chronic Qualifiers: Hypertension type: essential hypertension Qualified Code(s): I10 - Essential (primary) hypertension (4) Hematuria Priority: Primary Status: Acute Qualifiers: Hematuria type: gross Qualified Code(s): R31.0 - Gross hematuria (5) Type 2 diabetes mellitus Priority: Secondary Status: Acute Qualifiers: Diabetes mellitus intermediate insulin use: with intermediate use Diabetes mellitus complication status: with kidney complications Diabetes mellitus complication detail: with chronic kidney disease Chronic kidney disease stage : stage 4 (severe) Qualified Code(s): E11.22 - Type 2 diabetes mellitus with diabetic chronic kidney disease; N18.4 - Chronic kidney disease, stage 4 (severe ); Z79.4 - skilled nursing (current) use of insulin (6) Chronic systolic heart failure Priority: Secondary Status: Acute (7) Hydronephrosis Priority: Primary Status: Acute Qualifiers: Hydronephrosis type: unspecified Qualified Code(s): N13.30 - Unspecified hydronephrosis (8) Acute encephalopathy Priority: Primary Status: Acute (9) Anemia Priority: Secondary Status: Acute Qualifiers: Anemia type: unspecified type Qualified Code(s): D64.9 - Anemia, unspecified (10) Pneumonia Priority: Secondary Status: Ruled-out Qualifiers: Pneumonia type: due to unspecified organism Laterality: right Lung location: lower lobe of lung Qualified Code(s): J18.1 - Lobar pneumonia, unspecified organism (11) DVT (deep venous thrombosis) Priority: Primary Status: Acute Qualifiers: DVT location: lower extremity Affected thrombotic vein of extremity: femoral Chronicity: acute Laterality: left Qualified Code(s): I82.412 - Acute embolism and thrombosis of left femoral vein (12) Grief at loss of child Priority: Secondary Status: Acute (13) Catatonic disorder due to known physiological condition Priority: Primary Status: Acute (14) Hypokalemia Priority: Secondary Status: Acute Hospital course: Ms. Bentley is a 72 year old female admitted for hematuria and sepsis due to urinary tract infection. Patient needed critical care and was intubated and required pressor support and later successfully extubated. She had renal failure due to obstructive uropathy and bilateral hydronephrosis. She had cystoscopy bilateral ureteral stent placed. He was treated for UTI with cefepime which was continued based on culture and sensitivity. Later developed fevers due to unknown source was on cefepime. infectious disease was consulted and she was treated with vancomycin for 7 days and cefepime for 11 days. Patient also developed left leg DVT for which initially she was started on a heparin, but she started having hematuria again and she ended up having IVC filter placed. Hematuria did not recur after that. Renal function was regained almost to baseline. She would be discharged to the group home where she needs a psychiatric follow-up as she developed catatonic disorder during the hospitalization for which psychiatry recommended inpatient treatment and to consider ECT treatment. She had a head CT which was negative for any acute stroke. Patient was started on lorazepam 3 times a day and nuedexta on discharge. - Time Spent with Patient Total time spent providing and/or coordinating discharge services: - Discharge Medications Prescriptions: Dextromethorphan HBr/Quinidine [Nuedexta 20-10 mg Capsule] 1 each PO DAILY 30 Days #30 capsule Home Medications: Aspirin Enteric Coated [Aspirin EC] 81 mg PO DAILY 08/20/15 [History] Metoprolol XL (24 HR) Succ [Toprol Xl] 50 mg PO DAILY #30 tab.er.24h 01/07/16 [ Rx] Insulin Glargine,Hum.rec.anlog [Toujeo Solostar] 45 units SQ HS 06/10/16 [ History] Multivit-Minerals/Folic/Ginkgo [One Daily For Women 50+ Adv Tb] 1 tab PO DAILY 06/10/16 [History] Furosemide [Lasix] 40 mg PO QAM 10/03/16 [History] Insulin ASPART [Novolog Flexpen] 25 unit SQ TIDWM 10/03/16 [History] Clopidogrel [Plavix] 75 mg PO DAILY 11/03/17 [History] Oxybutynin Chloride [Ditropan Xl] 10 mg PO DAILY 11/03/17 [History] Rosuvastatin Calcium 10 mg PO HS 11/03/17 [History] Ascorbic Acid [Vitamin C] 500 mg PO BID 11/17/17 [History] Ergocalciferol (VITAMIN D2) [Vitamin D2] 50,000 unit PO QWEEK 11/17/17 [History] Dextromethorphan HBr/Quinidine [Nuedexta 20-10 mg Capsule] 1 each PO DAILY 30 Days #30 capsule 12/08/17 [Rx] Ferrous Sulfate 325 mg PO DAILY@0800 tablet 12/08/17 [Rx] LORazepam [Ativan] 1 mg PO TID 20 Days #60 tablet 12/08/17 [Rx] Miconazole 2% ointment [Aloe [place] Antifungal Ointment] 1 appl TP DAILY tube [Rx] amLODIPine [Norvasc] 10 mg PO DAILY tablet 12/08/17 [Rx] Allergies/Adverse Reactions: 3 Allergy/AdvReac Type Severity Reaction Status Date / Time venom-honey bee Allergy Severe Swelling Verified 11/03/17 10:53 [bee venom (honey bee)] of Lip/Tongue/Throat Cortisone Allergy Mild Hives Verified 11/03/17 10:53 Penicillins Allergy See Verified 11/03/17 10:53 Comments NSAIDS (Non-Steroidal AdvReac Mild UPSET Verified 11/03/17 10:53 Anti-Inflamma STOMACH cefazolin [From Ancef] AdvReac Hives Verified 11/03/17 10:53 Lbzxnxb-Uou-Lep Reductase AdvReac Muscle Pain Verified 11/03/17 10:53 Inhibitor [Statins] GRAPE FLAVOR Allergy Mild Swelling Uncoded 11/03/17 10:53 of the Eye Date of admission: 11/17/17 15:06 Primary care physician: Wale Lam DO Consults: 11/18/17 11:15 Consult to Production Control Pegboard Clerk [CONS] Routine Reason for SW Consult: ECF return 11/19/17 12:29 Consult to Nutrition [CONS] Routine Comment: Consulting Provider: NUTRITION Reason for Dietary Consult: Other Other:: decreased appetite 11/20/17 08:31 Consult to Physical Therapy [CONS] Routine Comment: Evaluate, develop and implement POC Reason for Consult: weakness Does patient have active BEDREST order?: No Is patient medically & hemodynamically stable?: Yes Patient assessed for mobility or mobilized this visit?: No 11/21/17 07:41 Consult to Physical Therapy [CONS] Routine Comment: Evaluate, develop and implement POC Reason for Consult: weakness, deconditioning Does patient have active BEDREST order?: No Is patient medically & hemodynamically stable?: Yes Patient assessed for mobility or mobilized this visit?: No 11/21/17 08:23 Consult to Occupational Therapy [CONS] Routine Comment: Evaluate, develop and implement POC Reason for Consult: needs pre-cert to rtn to ecf Does patient have active BEDREST order?: No Is patient medically & hemodynamically stable?: Yes 11/24/17 11:29 Consult to Infectious Diseases [CONS] Routine Consulting Provider: [facility] [place] Reason for Consult: Requested by Dr. Foss Time Notified: 11:30 Call Completed: Yes 11/25/17 14:14 Consult to Vascular Surgery [CONS] Routine Consulting Provider: [facility] [place] Reason for Consult: DVT, with AC contraindicated Call Completed: Yes 11/25/17 15:53 Consult to Urology [CONS] Stat Consulting Provider: Urology [place] Reason for Consult: new DVT, ideas on antigcoagulation for previous hematuria Time Notified: 15:54 Call Completed: No 11/26/17 10:51 Consult to Neurology [CONS] Routine Consulting Provider: [facility] Reason for Consult: Non-verbal, No focal deficit, Normal CT scan. Call Completed: Yes 12/01/17 11:11 Consult to Psychology [CONS] Routine Consulting Provider: Chris Arizmendi Reason for Consult: non verbal flat affect grief Time Notified: 11:12 Call Completed: No 12/01/17 16:18 Consult to Psychiatry [CONS] Routine Consulting Provider: Psychiatry [place] Reason consult: Other Other reason and/or additional details: Patient signed approximately 6 weeks ago and is depressed 12/05/17 08:04 Consult to Case Management [CONS] Routine Comment: For placement to geriatric psychiatric facility 12/07/17 10:11 Consult to Psychiatry [CONS] Routine Consulting Provider: Psychiatry [place] Reason consult: Other Other reason and/or additional details: depression Discharging clinician: Karen Foss - Constitutional Vitals: Temp Pulse Resp BP Pulse Ox 98.4 F 86 18 138/62 93 12/08/17 10:56 12/08/17 10:56 12/08/17 10:56 12/08/17 10:56 12/08/17 10:56 General appearance: Present: A&O X 2, no acute distress, answers questions appropriately Exam: Gen.: Nonacute distress, alert and oriented 3. Doesn't make eye contact. ENT: Mucosal membranes moist Respiratory: Lungs are clear to auscultation bilaterally without any wheezing rhonchi or rales Cardiovascular: Normal S1 and S2 regular rate rhythm no murmurs rubs or gallops Abdomen: Soft, nontender and nondistended with positive bowel sounds Extremities: No lower extremity edema Skin: Normal color, DTI on Lt Leg Pysc: Not making eye contact. Speaks minimally. - Patient Status Disposition: Transfer SNF Condition: Fair - Discharge Instructions Follow Up With: Wale Lam DO [Primary Care Provider] - Prabhu Aly MD [Partnered Physician] - Forms: ED Satisfaction Letter Additional Instructions: 1. Consider ECT treatment 2. Start neudexta 20mg/10mg currently nonformulary in hospital for catatonic features and affect changes. 3. Continue lorazepam. 4. Continue to recomment geriatric psychatric unit. - Diet and Activity Activity: as per physical therapy - VTE Documentation of Mechanical Device: Intermittent pneumatic compression device
--- NOTE | 2017-12-08 15:29 | Physician Discharge Referral ---
ExtendedCare Referral Info Transfer To: [facility] Institutional Level of Care: Skilled - Diagnosis (1) UTI (urinary tract infection) Priority: Primary Status: Resolved (2) Acute kidney injury superimposed on chronic kidney disease Status: Resolved (3) Hypertension Status: Chronic (4) Hematuria Status: Acute (5) Type 2 diabetes mellitus Status: Acute (6) Chronic systolic heart failure Status: Acute (7) Hydronephrosis Status: Acute (8) Acute encephalopathy Status: Acute (9) Anemia Status: Acute (10) Pneumonia Status: Ruled-out (11) DVT (deep venous thrombosis) Status: Acute (12) Grief at loss of child Status: Acute (13) Catatonic disorder due to known physiological condition Priority: Primary Status: Acute (14) Hypokalemia Status: Acute - Transfer Medications Prescriptions: Dextromethorphan HBr/Quinidine [Nuedexta 20-10 mg Capsule] 1 each PO DAILY 30 Days #30 capsule Home Medications: Aspirin Enteric Coated [Aspirin EC] 81 mg PO DAILY 08/20/15 [History] Metoprolol XL (24 HR) Succ [Toprol Xl] 50 mg PO DAILY #30 tab.er.24h 01/07/16 [ Rx] Insulin Glargine,Hum.rec.anlog [Toujeo Solostar] 45 units SQ HS 06/10/16 [ History] Multivit-Minerals/Folic/Ginkgo [One Daily For Women 50+ Adv Tb] 1 tab PO DAILY 06/10/16 [History] Furosemide [Lasix] 40 mg PO QAM 10/03/16 [History] Insulin ASPART [Novolog Flexpen] 25 unit SQ TIDWM 10/03/16 [History] Clopidogrel [Plavix] 75 mg PO DAILY 11/03/17 [History] Oxybutynin Chloride [Ditropan Xl] 10 mg PO DAILY 11/03/17 [History] Rosuvastatin Calcium 10 mg PO HS 11/03/17 [History] Ascorbic Acid [Vitamin C] 500 mg PO BID 11/17/17 [History] Ergocalciferol (VITAMIN D2) [Vitamin D2] 50,000 unit PO QWEEK 11/17/17 [History] Dextromethorphan HBr/Quinidine [Nuedexta 20-10 mg Capsule] 1 each PO DAILY 30 Days #30 capsule 09/06/18 [Rx] Ferrous Sulfate 325 mg PO DAILY@0800 tablet 12/08/17 [Rx] LORazepam [Ativan] 1 mg PO TID 20 Days #60 tablet 12/08/17 [Rx] Miconazole 2% ointment [Aloe [place] Antifungal Ointment] 1 appl TP DAILY tube [Rx] amLODIPine [Norvasc] 10 mg PO DAILY tablet 12/08/17 [Rx] Allergies/Adverse Reactions: 3 Allergy/AdvReac Type Severity Reaction Status Date / Time venom-honey bee Allergy Severe Swelling Verified 11/03/17 10:53 [bee venom (honey bee)] of Lip/Tongue/Throat Cortisone Allergy Mild Hives Verified 11/03/17 10:53 Penicillins Allergy See Verified 11/03/17 10:53 Comments NSAIDS (Non-Steroidal AdvReac Mild UPSET Verified 11/03/17 10:53 Anti-Inflamma STOMACH cefazolin [From Ancef] AdvReac Hives Verified 11/03/17 10:53 Zufryyc-Aoc-Vuy Reductase AdvReac Muscle Pain Verified 11/03/17 10:53 Inhibitor [Statins] GRAPE FLAVOR Allergy Mild Swelling Uncoded 11/03/17 10:53 of the Eye - Respiratory Orders Smoking Cessation: Smoking cessation has been advised. For more information, call the [place] Tobacco Quit Line at 0-831-ZNZYNOW. - Advance Directives Code Status: Full Code - Rehabiliation Orders Rehab Potential: Fair Rehab Orders: Evaluation for Physical Therapy - Diet Orders Regular CERTIFICATION: I certify that the transfer of the above named patient to an Extended Care Facility is necessary for the continuing treatment of the diagnosis listed. The above information is true and accurate reflection of patient's current condition. Confidential - Redisclosure prohibited without a patient's written consent.
[2017-12-08 16:02] VITALS: BP 151/77
[2017-12-08] MEDS ORDERED: Insulin LISPRO 300 UNITS/3 ML VIAL SQ SCH (17:00)
== END 2017-12-08 18:15 | DRG 853 ==
LOC: EMEROOARM 04:42 → 2ANU 04:42 → 2NNU 13:46 → ICNU 14:25 → SUATTDRO 15:06 → 2ANU 11-19 11:07
PROVIDERS: ADMIT Internal Medicine; ATTEND Internal Medicine

== ENCOUNTER 2017-12-09 13:02 | Inpatient (IN) ==
--- NOTE | 2017-12-09 13:10 | Emergency Department Note ---
Disposition Clinical Impression: Severe sepsis, Elevated troponin Sepsis Qualifiers: Sepsis type: sepsis due to unspecified organism Qualified Code(s): A41.9 - Sepsis, unspecified organism UTI (urinary tract infection) Qualifiers: Urinary tract infection type: site unspecified Hematuria presence: without hematuria Qualified Code(s): N39.0 - Urinary tract infection, site not specified Acute renal failure superimposed on chronic kidney disease Qualifiers: Acute renal failure type: unspecified Chronic kidney disease stage: unspecified stage Qualified Code(s): N17.9 - Acute kidney failure, unspecified Disposition: Admitted As Inpatient Condition: Fair General Adult HPI - General Stated complaint: High sugar, legthargic Time Seen by Provider: 12/09/17 13:05 - Related Data Home Medications Medication Instructions Recorded Confirmed Aspirin Enteric Coated [Aspirin EC] 81 mg PO DAILY 08/20/15 12/09/17 Insulin Glargine,Hum.rec.anlog 45 units SQ HS 06/10/16 12/09/17 [Toujepraveena Solostar] Multivit-Minerals/Folic/Ginkgo 1 tab PO DAILY 06/10/16 12/09/17 [One Daily For Women 50+ Adv Tb] Furosemide [Lasix] 40 mg PO QAM 10/03/16 12/09/17 Insulin ASPART [Novolog Flexpen] 25 unit SQ TIDWM 10/03/16 12/09/17 Clopidogrel [Plavix] 75 mg PO DAILY 11/03/17 12/09/17 Oxybutynin Chloride [Ditropan Xl] 10 mg PO DAILY 11/03/17 12/09/17 Rosuvastatin Calcium 10 mg PO HS 11/03/17 12/09/17 Ascorbic Acid [Vitamin C] 500 mg PO BID 11/17/17 12/09/17 Ergocalciferol (VITAMIN D2) 50,000 unit PO QWEEK 11/17/17 12/09/17 [Vitamin D2] Previous Rx's Medication Instructions Recorded Metoprolol XL (24 HR) Succ [Toprol 50 mg PO DAILY #30 tab.er.24h 01/07/16 Xl] Dextromethorphan HBr/Quinidine 1 each PO DAILY 30 Days #30 capsule 12/08/17 [Nuedexta 20-10 mg Capsule] Ferrous Sulfate 325 mg PO DAILY@0800 tablet 12/08/17 LORazepam [Ativan] 1 mg PO TID 6 Days #18 tablet 12/08/17 Miconazole 2% ointment [Aloe [place] 1 appl TP DAILY tube 12/08/17 Antifungal Ointment] amLODIPine [Norvasc] 10 mg PO DAILY tablet 12/08/17 Allergies Allergy/AdvReac Type Severity Reaction Status Date / Time venom-honey bee Allergy Severe Swelling Verified 11/03/17 10:53 [bee venom (honey bee)] of Lip/Tongue/Throat Cortisone Allergy Mild Hives Verified 11/03/17 10:53 Penicillins Allergy See Verified 11/03/17 10:53 Comments NSAIDS (Non-Steroidal AdvReac Mild UPSET Verified 11/03/17 10:53 Anti-Inflamma STOMACH cefazolin [From Ancef] AdvReac Hives Verified 11/03/17 10:53 Xxipeig-Fyn-Ioe Reductase AdvReac Muscle Pain Verified 11/03/17 10:53 Inhibitor [Statins] GRAPE FLAVOR Allergy Mild Swelling Uncoded 11/03/17 10:53 of the Eye Past Medical History - Past Medical History Medical history: Reports: cardiomyopathy, CHF, coronary artery disease, CVA, diabetes, GERD, hyperlipidemia, hypertension, kidney stones, myocardial infarction, peripheral artery disease, renal disease, TIA Surgical history: Reports: appendectomy, breast surgery, carotid endarterectomy , cholecystectomy, coronary bypass (CABG), hysterectomy, pacemaker/AICD, LE vascular intervention Psychiatric history: Reports: depression, previous psychiatric hospitalization - Social History Smoking Status: Former smoker Smokeless Tobacco Status: No Alcohol use: Reports: none Drug use: Reports: none Course Vital Signs Temperature 102.2 F H 12/09/17 13:09 Pulse Rate 93 12/09/17 13:09 Respiratory Rate 24 12/09/17 13:09 Blood Pressure 134/71 12/09/17 13:09 O2 Sat by Pulse Oximetry 95 12/09/17 13:09 Temperature 97.9 F 12/09/17 18:05 Pulse Rate 106 12/09/17 18:05 Respiratory Rate 16 12/09/17 18:05 Blood Pressure 107/47 12/09/17 18:05 O2 Sat by Pulse Oximetry 90 12/09/17 18:05 Oxygen Delivery Oxygen Delivery Nasal Cannula Medical Decision Making - Lab Data Result diagrams: 12/09/17 13:10 12/09/17 13:10 Lab Results 12/09/17 12/09/17 12/09/17 Range/Units 13:10 13:10 13:14 WBC 16.8 H D (4.3-11.1) K/mcL RBC 3.35 L (3.82-4.97) M/mcL Hgb 9.5 L (11.5-15.4) g/dL Hct 31.1 L (35.3-44.9) % MCV 92.8 (83.0-100.0) fL MCH 28.4 (28.0-33.3) pg MCHC 30.5 L (31.6-35.5) g/dL RDW 15.7 H (11.5-14.5) % Plt Count 417 H (140-400) K/mcL MPV 10.2 (9.4-12.4) fL Immature Gran % 0.7 (0-4) % Seg Neutrophils % 82.6 % Lymphocytes % 8.2 % Monocytes % 8.2 % Eosinophils % 0.1 % Basophils % 0.2 % Neutrophils # 13.9 H (1.6-8.9) K/mcL Lymphocytes # 1.4 (0.6-4.6) K/mcL Monocytes # 1.4 H (0.0-1.3) K/mcL Eosinophils # 0.0 (0.0-0.6) K/mcL Basophils # 0.0 (0.0-0.2) K/mcL VBG pH (7.32-7.42) pH Units VBG pCO2 (41-51) mmHg VBG pO2 (25-50) mmHg VBG HCO3 (21-27) mEq/L Sodium 141 (136-145) mEq/L Potassium 4.2 (3.5-5.1) mEq/L Chloride 104 (98-107) mEq/L Carbon Dioxide 27 (23-29) mEq/L BUN 49 H (8-23) mg/dL Creatinine 3.48 H (0.60-1.20) mg/dL Est GFR ( Amer) 16 L (> 60) Est GFR (Non-Af Amer) 13 L (> 60) BUN/Creatinine Ratio 14 (6-26) Glucose 198 H (70-105) mg/dL POC Glucose 287 H (70-99) mg/dL Calculated Osmolality 311 H (280-300) Lactic Acid (0.5-2.2) mmol/L Calcium 8.8 (8.6-10.3) mg/dL Total Bilirubin 0.6 (0.3-1.0) mg/dL Direct Bilirubin 0.3 H (0.0-0.2) mg/dL Indirect Bilirubin 0.3 (0.0-1.2) mg/dL AST 23 (13-39) Units/L ALT 11 (7-52) Units/L Alkaline Phosphatase 119 H (34-104) Units/L Ammonia (16-53) mcmol/L Troponin I 2.67 H* (< 0.04) ng/mL Serum Total Protein 7.2 (6.4-8.9) g/dL Albumin 2.7 L (3.5-5.7) g/dL Globulin 4.5 H (2.4-3.5) g/dL Albumin/Globulin Ratio 0.6 L (1.1-2.2) Beta-Hydroxybutyric Acd (0.02-0.27) mmol/L Urine Color (Yellow) Urine Clarity (Clear) Urine pH (5.0-8.0) pH Units Ur Specific [place] (1.010-1.025) Urine Protein (Neg-Trace) mg/dL Urine Glucose (UA) (Normal) mg/dL Urine Ketones (Negative) mg/dL Urine Blood (Negative) Urine Nitrite (Negative) Urine Bilirubin (Negative) Urine Urobilinogen (Normal) mg/dL Ur Leukocyte Esterase (Negative) Urine Microscopic RBC (0-3) per hpf Urine Microscopic WBC (0-3) per hpf Ur Squamous Epith Cells (None-Few) per lpf Urine Bacteria (None-Few) per hpf Hyaline Casts (None-Few) per lpf Ur Culture Indicated? (NO) Urine Opiates Screen (Wbvkzj=231) ng/mL Ur Barbiturates Screen (Yueddb=737) ng/mL Ur Phencyclidine Scrn (Cutoff=25) ng/mL Ur Amphetamines Screen (Gkzqst=1345) ng/mL U Benzodiazepines Scrn (Lfyvfv=755) ng/mL Urine Cocaine Screen (Cutoff= 300) ng/mL U Marijuana (THC) Screen (Cutoff = 50) ng/mL Ur Drug Screen Interp Ethyl Alcohol < 10 (Less than 10) mg/dL 0912/09/17 12/09/17 Range/Units 13:51 14:25 15:13 WBC (4.3-11.1) K/mcL RBC (3.82-4.97) M/mcL Hgb (11.5-15.4) g/dL Hct (35.3-44.9) % MCV (83.0-100.0) fL MCH (28.0-33.3) pg MCHC (31.6-35.5) g/dL RDW (11.5-14.5) % Plt Count (140-400) K/mcL MPV (9.4-12.4) fL Immature Gran % (0-4) % Seg Neutrophils % % Lymphocytes % % Monocytes % % Eosinophils % % Basophils % % Neutrophils # (1.6-8.9) K/mcL Lymphocytes # (0.6-4.6) K/mcL Monocytes # (0.0-1.3) K/mcL Eosinophils # (0.0-0.6) K/mcL Basophils # (0.0-0.2) K/mcL VBG pH 7.43 H (7.32-7.42) pH Units VBG pCO2 41 (41-51) mmHg VBG pO2 41 (25-50) mmHg VBG HCO3 27 (21-27) mEq/L Sodium (136-145) mEq/L Potassium (3.5-5.1) mEq/L Chloride (98-107) mEq/L Carbon Dioxide (23-29) mEq/L BUN (8-23) mg/dL Creatinine (0.60-1.20) mg/dL Est GFR ( Amer) (> 60) Est GFR (Non-Af Amer) (> 60) BUN/Creatinine Ratio (6-26) Glucose (70-105) mg/dL POC Glucose (70-99) mg/dL Calculated Osmolality (280-300) Lactic Acid (0.5-2.2) mmol/L Calcium (8.6-10.3) mg/dL Total Bilirubin (0.3-1.0) mg/dL Direct Bilirubin (0.0-0.2) mg/dL Indirect Bilirubin (0.0-1.2) mg/dL AST (13-39) Units/L ALT (7-52) Units/L Alkaline Phosphatase (34-104) Units/L Ammonia 20 (16-53) mcmol/L Troponin I (< 0.04) ng/mL Serum Total Protein (6.4-8.9) g/dL Albumin (3.5-5.7) g/dL Globulin (2.4-3.5) g/dL Albumin/Globulin Ratio (1.1-2.2) Beta-Hydroxybutyric Acd 0.23 (0.02-0.27) mmol/L Urine Color (Yellow) Urine Clarity (Clear) Urine pH (5.0-8.0) pH Units Ur Specific [place] (1.010-1.025) Urine Protein (Neg-Trace) mg/dL Urine Glucose (UA) (Normal) mg/dL Urine Ketones (Negative) mg/dL Urine Blood (Negative) Urine Nitrite (Negative) Urine Bilirubin (Negative) Urine Urobilinogen (Normal) mg/dL Ur Leukocyte Esterase (Negative) Urine Microscopic RBC (0-3) per hpf Urine Microscopic WBC (0-3) per hpf Ur Squamous Epith Cells (None-Few) per lpf Urine Bacteria (None-Few) per hpf Hyaline Casts (None-Few) per lpf Ur Culture Indicated? (NO) Urine Opiates Screen (Dntnyp=997) ng/mL Ur Barbiturates Screen (Wpeooz=327) ng/mL Ur Phencyclidine Scrn (Cutoff=25) ng/mL Ur Amphetamines Screen (Vnfkmq=6428) ng/mL U Benzodiazepines Scrn (Epneef=923) ng/mL Urine Cocaine Screen (Cutoff= 300) ng/mL U Marijuana (THC) Screen (Cutoff = 50) ng/mL Ur Drug Screen Interp Ethyl Alcohol (Less than 10) mg/dL 12/09/17 12/09/17 12/09/17 Range/Units 15:13 15:36 16:00 WBC (4.3-11.1) K/mcL RBC (3.82-4.97) M/mcL Hgb (11.5-15.4) g/dL Hct (35.3-44.9) % MCV (83.0-100.0) fL MCH (28.0-33.3) pg MCHC (31.6-35.5) g/dL RDW (11.5-14.5) % Plt Count (140-400) K/mcL MPV (9.4-12.4) fL Immature Gran % (0-4) % Seg Neutrophils % % Lymphocytes % % Monocytes % % Eosinophils % % Basophils % % Neutrophils # (1.6-8.9) K/mcL Lymphocytes # (0.6-4.6) K/mcL Monocytes # (0.0-1.3) K/mcL Eosinophils # (0.0-0.6) K/mcL Basophils # (0.0-0.2) K/mcL VBG pH 7.45 H (7.32-7.42) pH Units VBG pCO2 39 L (41-51) mmHg VBG pO2 100 H (25-50) mmHg VBG HCO3 27 (21-27) mEq/L Sodium (136-145) mEq/L Potassium (3.5-5.1) mEq/L Chloride (98-107) mEq/L Carbon Dioxide (23-29) mEq/L BUN (8-23) mg/dL Creatinine (0.60-1.20) mg/dL Est GFR ( Amer) (> 60) Est GFR (Non-Af Amer) (> 60) BUN/Creatinine Ratio (6-26) Glucose (70-105) mg/dL POC Glucose (70-99) mg/dL Calculated Osmolality (280-300) Lactic Acid 3.2 H (0.5-2.2) mmol/L Calcium (8.6-10.3) mg/dL Total Bilirubin (0.3-1.0) mg/dL Direct Bilirubin (0.0-0.2) mg/dL Indirect Bilirubin (0.0-1.2) mg/dL AST (13-39) Units/L ALT (7-52) Units/L Alkaline Phosphatase (34-104) Units/L Ammonia (16-53) mcmol/L Troponin I (< 0.04) ng/mL Serum Total Protein (6.4-8.9) g/dL Albumin (3.5-5.7) g/dL Globulin (2.4-3.5) g/dL Albumin/Globulin Ratio (1.1-2.2) Beta-Hydroxybutyric Acd (0.02-0.27) mmol/L Urine Color (Yellow) Urine Clarity (Clear) Urine pH (5.0-8.0) pH Units Ur Specific [place] (1.010-1.025) Urine Protein (Neg-Trace) mg/dL Urine Glucose (UA) (Normal) mg/dL Urine Ketones (Negative) mg/dL Urine Blood (Negative) Urine Nitrite (Negative) Urine Bilirubin (Negative) Urine Urobilinogen (Normal) mg/dL Ur Leukocyte Esterase (Negative) Urine Microscopic RBC (0-3) per hpf Urine Microscopic WBC (0-3) per hpf Ur Squamous Epith Cells (None-Few) per lpf Urine Bacteria (None-Few) per hpf Hyaline Casts (None-Few) per lpf Ur Culture Indicated? (NO) Urine Opiates Screen Negative (Wxtuel=683) ng/mL Ur Barbiturates Screen Negative (Skppry=721) ng/mL Ur Phencyclidine Scrn Negative (Cutoff=25) ng/mL Ur Amphetamines Screen Negative (Dxusch=8927) ng/mL U Benzodiazepines Scrn Negative (Qtjvqj=440) ng/mL Urine Cocaine Screen Negative (Cutoff= 300) ng/mL U Marijuana (THC) Screen Negative (Cutoff = 50) ng/mL Ur Drug Screen Interp See Below Ethyl Alcohol (Less than 10) mg/dL 12/09/17 Range/Units 16:02 WBC (4.3-11.1) K/mcL RBC (3.82-4.97) M/mcL Hgb (11.5-15.4) g/dL Hct (35.3-44.9) % MCV (83.0-100.0) fL MCH (28.0-33.3) pg MCHC (31.6-35.5) g/dL RDW (11.5-14.5) % Plt Count (140-400) K/mcL MPV (9.4-12.4) fL Immature Gran % (0-4) % Seg Neutrophils % % Lymphocytes % % Monocytes % % Eosinophils % % Basophils % % Neutrophils # (1.6-8.9) K/mcL Lymphocytes # (0.6-4.6) K/mcL Monocytes # (0.0-1.3) K/mcL Eosinophils # (0.0-0.6) K/mcL Basophils # (0.0-0.2) K/mcL VBG pH (7.32-7.42) pH Units VBG pCO2 (41-51) mmHg VBG pO2 (25-50) mmHg VBG HCO3 (21-27) mEq/L Sodium (136-145) mEq/L Potassium (3.5-5.1) mEq/L Chloride (98-107) mEq/L Carbon Dioxide (23-29) mEq/L BUN (8-23) mg/dL Creatinine (0.60-1.20) mg/dL Est GFR ( Amer) (> 60) Est GFR (Non-Af Amer) (> 60) BUN/Creatinine Ratio (6-26) Glucose (70-105) mg/dL POC Glucose (70-99) mg/dL Calculated Osmolality (280-300) Lactic Acid (0.5-2.2) mmol/L Calcium (8.6-10.3) mg/dL Total Bilirubin (0.3-1.0) mg/dL Direct Bilirubin (0.0-0.2) mg/dL Indirect Bilirubin (0.0-1.2) mg/dL AST (13-39) Units/L ALT (7-52) Units/L Alkaline Phosphatase (34-104) Units/L Ammonia (16-53) mcmol/L Troponin I (< 0.04) ng/mL Serum Total Protein (6.4-8.9) g/dL Albumin (3.5-5.7) g/dL Globulin (2.4-3.5) g/dL Albumin/Globulin Ratio (1.1-2.2) Beta-Hydroxybutyric Acd (0.02-0.27) mmol/L Urine Color Yellow (Yellow) Urine Clarity Turbid A (Clear) Urine pH 7.0 (5.0-8.0) pH Units Ur Specific [place] 1.021 (1.010-1.025) Urine Protein >=300 H (Neg-Trace) mg/dL Urine Glucose (UA) Normal (Normal) mg/dL Urine Ketones Negative (Negative) mg/dL Urine Blood Large H (Negative) Urine Nitrite Negative (Negative) Urine Bilirubin Negative (Negative) Urine Urobilinogen Normal (Normal) mg/dL Ur Leukocyte Esterase Large H (Negative) Urine Microscopic RBC 30-50 H (0-3) per hpf Urine Microscopic WBC TNTC H (0-3) per hpf Ur Squamous Epith Cells Many H (None-Few) per lpf Urine Bacteria Many H (None-Few) per hpf Hyaline Casts None Seen (None-Few) per lpf Ur Culture Indicated? NO. A (NO) Urine Opiates Screen (Buswwk=680) ng/mL Ur Barbiturates Screen (Helkkh=157) ng/mL Ur Phencyclidine Scrn (Cutoff=25) ng/mL Ur Amphetamines Screen (Fwnybm=1382) ng/mL U Benzodiazepines Scrn (Qelgjf=828) ng/mL Urine Cocaine Screen (Cutoff= 300) ng/mL U Marijuana (THC) Screen (Cutoff = 50) ng/mL Ur Drug Screen Interp Ethyl Alcohol (Less than 10) mg/dL Critical Care Time Critical Care Time: Yes Total Critical Care Time: 40 Attestation: Critical care performed: Time is exclusive of separately billable procedures. Time includes: direct patient care, patient reassessment, coordination of patient care, interpretation of data (laboratory data, radiology data, and respiratory data), review of patient's medical records, medical consultation and documentation of patient care. Procedures included in critical care time: Procedures excluded from critical care time: Attestation Statement - Attestation Attestation: I examined this patient and my medical decision-making was reviewed with the Resident Physician. I agree with the documented findings, disposition and treatment plan as described except to the extent set forth below. Patient to ED from senior living. Patient sent from [facility]. They state she is lethargic and in and out of consciousness. They state she is been like that since she was discharged from the hospital yesterday. Patient unable to provide any further history. On exam she is sleeping but arousable. Moans. Plan. Altered mental status workup. Awaiting family arrival. Patient meet severe sepsis criteria. Worsening renal failure. Elevated troponin. Lactate elevated. She received IV hydration. It is believed her troponin is demand ischemia. We did do a bedside ultrasound that does not show any obvious large effusions. Patient is started on broad-spectrum antibiotics. Admitted to medicine.
[2017-12-09] MEDS ORDERED: 0.9 % Sodium Chloride 1,000 ML IVC ONE (13:49)
--- NOTE | 2017-12-09 14:20 | Emergency Department Note ---
Disposition Clinical Impression: Severe sepsis, Elevated troponin Sepsis Qualifiers: Sepsis type: sepsis due to unspecified organism Qualified Code(s): A41.9 - Sepsis, unspecified organism UTI (urinary tract infection) Qualifiers: Urinary tract infection type: site unspecified Hematuria presence: without hematuria Qualified Code(s): N39.0 - Urinary tract infection, site not specified Acute renal failure superimposed on chronic kidney disease Qualifiers: Acute renal failure type: unspecified Chronic kidney disease stage: unspecified stage Qualified Code(s): N17.9 - Acute kidney failure, unspecified Disposition: Admitted As Inpatient Condition: Fair Time of Disposition: 17:23 General Adult HPI - General Chief complaint: ED Weakness Stated complaint: High sugar, legthargic Time Seen by Provider: 12/09/17 13:05 Source: EMS Mode of arrival: EMS Limitations: altered mental status Nursing Notes Reviewed: Yes Vital Signs Reviewed: Yes - History of Present Illness HPI Narrative: 72-year-old female with history of diabetes and recent hospitalization for UTI and sepsis. Patient was just discharged yesterday. Patient presented to the nursing facility today and was noted to be altered. Decreased responsiveness. Patient does not provide an accurate history. Family states the patient was recently admitted and has not multiple reasons for hospital admission but one did include a urinary tract infection. Patient appears be controlling her airway. Decreased responsiveness with a nonfocal exam otherwise. Pain Scale: 0 - Related Data Home Medications Medication Instructions Recorded Confirmed Aspirin Enteric Coated [Aspirin EC] 81 mg PO DAILY 08/20/15 12/09/17 Insulin Glargine,Hum.rec.anlog 45 units SQ HS 06/10/16 12/09/17 [Todaniel Raymundo] Multivit-Minerals/Folic/Ginkgo 1 tab PO DAILY 06/10/16 12/09/17 [One Daily For Women 50+ Adv Tb] Furosemide [Lasix] 40 mg PO QAM 10/03/16 12/09/17 Insulin ASPART [Novolog Flexpen] 25 unit SQ TIDWM 10/03/16 12/09/17 Clopidogrel [Plavix] 75 mg PO DAILY 11/03/17 12/09/17 Oxybutynin Chloride [Ditropan Xl] 10 mg PO DAILY 11/03/17 12/09/17 Rosuvastatin Calcium 10 mg PO HS 11/03/17 12/09/17 Ascorbic Acid [Vitamin C] 500 mg PO BID 11/17/17 12/09/17 Ergocalciferol (VITAMIN D2) 50,000 unit PO QWEEK 11/17/17 12/09/17 [Vitamin D2] Previous Rx's Medication Instructions Recorded Metoprolol XL (24 HR) Succ [Toprol 50 mg PO DAILY #30 tab.er.24h 01/07/16 Xl] Dextromethorphan HBr/Quinidine 1 each PO DAILY 30 Days #30 capsule 12/08/17 [Nuedexta 20-10 mg Capsule] Ferrous Sulfate 325 mg PO DAILY@0800 tablet 12/08/17 LORazepam [Ativan] 1 mg PO TID 6 Days #18 tablet 12/08/17 Miconazole 2% ointment [Aloe [place] 1 appl TP DAILY tube 12/08/17 Antifungal Ointment] amLODIPine [Norvasc] 10 mg PO DAILY tablet 12/08/17 Allergies Allergy/AdvReac Type Severity Reaction Status Date / Time venom-honey bee Allergy Severe Swelling Verified 11/03/17 10:53 [bee venom (honey bee)] of Lip/Tongue/Throat Cortisone Allergy Mild Hives Verified 11/03/17 10:53 Penicillins Allergy See Verified 11/03/17 10:53 Comments NSAIDS (Non-Steroidal AdvReac Mild UPSET Verified 11/03/17 10:53 Anti-Inflamma STOMACH cefazolin [From Ancef] AdvReac Hives Verified 11/03/17 10:53 Qwwxxij-Jns-Ttu Reductase AdvReac Muscle Pain Verified 11/03/17 10:53 Inhibitor [Statins] GRAPE FLAVOR Allergy Mild Swelling Uncoded 11/03/17 10:53 of the Eye Limitations: ROS unobtainable due to patients medical condition Past Medical History - Past Medical History Medical history: Reports: cardiomyopathy, CHF, coronary artery disease, CVA, diabetes, GERD, hyperlipidemia, hypertension, kidney stones, myocardial infarction, peripheral artery disease, renal disease, TIA Surgical history: Reports: appendectomy, breast surgery, carotid endarterectomy , cholecystectomy, coronary bypass (CABG), hysterectomy, pacemaker/AICD, LE vascular intervention Psychiatric history: Reports: depression, previous psychiatric hospitalization - Social History Smoking Status: Former smoker Smokeless Tobacco Status: No Alcohol use: Reports: none Drug use: Reports: none Physical Exam - General Limitations: altered mental status General appearance: in no apparent distress, obese - Head Head exam: atraumatic, normocephalic, normal inspection - Eye Eye exam: Present: normal appearance - ENT ENT exam: normal exam, mucous membranes moist - Neck Neck exam: Present: normal inspection - Chest Chest inspection: Present: normal inspection, symmetric chest wall rise - Respiratory Respiratory exam: Absent: respiratory distress, accessory muscle use, prolonged expiratory phase - Cardiovascular Cardiovascular exam: Present: normal rhythm, tachycardia. Absent: systolic murmur - Abdominal Exam Abdominal exam: Present: soft, Non-Tender. Absent: guarding, rebound - Extremities Exam Extremities exam: Present: normal inspection. Absent: pedal edema - Expanded Lower Extremity Exam Neurovascular/Tendon exam: Present: normal capillary refill - Back Exam Back exam: Present: normal inspection - Neurological Exam Neurological exam: Present: alert, CN II-XII intact. Absent: oriented X3 - Expanded Neurological Exam Cranial nerves: EOM function (II, III, IV, ): Normal, facial sensation (V): Normal, facial palsy (VII): Normal, spinal accessory function (XI): Normal, tongue deviation (XII): Normal Motor strength - LUE: 5/5 Motor strength - RUE: 5/5 Motor strength - LLE: 5/5 Motor strength - RLE: 5/5 Coma Scale Eye Opening: To Voice Coma Scale Motor Response: Obeys Commands Coma Scale Verbal Response: Confused Coma Scale Total: 13 - Skin Skin exam: Present: warm, dry, intact, normal color Course Course Narrative: Patient seen and examined. Patient a broad workup in the ED including infectious and metabolic. Initial blood sugar was mildly elevated. Disposition likely admission. - Consultations Consultation #1: Spoke with Dr. Chavez for consult. Time: 17:04 Vital Signs Temperature 102.2 F H 12/09/17 13:09 Pulse Rate 93 12/09/17 13:09 Respiratory Rate 24 12/09/17 13:09 Blood Pressure 134/71 12/09/17 13:09 O2 Sat by Pulse Oximetry 95 12/09/17 13:09 Temperature 97.9 F 12/09/17 18:05 Pulse Rate 106 12/09/17 18:05 Respiratory Rate 16 12/09/17 18:05 Blood Pressure 107/47 12/09/17 18:05 O2 Sat by Pulse Oximetry 90 12/09/17 18:05 Oxygen Delivery Oxygen Delivery Nasal Cannula Medical Decision Making - MDM Narrative Medical decision making narrative: Patient presented for concerns of altered mental status. Patient appeared with a GCS of 13. Patient is controlling her airway. Patient had a broad workup in the ED with labs CT scan as well as urinalysis. Appears that the patient does meet SIRS criteria with white count as well as fever. Patient was not given a 30 mL/kg bolus given unknown cardiopulmonary function. Patient was noted to have sepsis, located by acute on chronic kidney disease as well as an elevated troponin. Patient's EKG shows no ST elevation similar to prior ventricular paced EKGs. Patient was given rectal aspirin and Tylenol. Patient was given most appropriate antibiotics based on her last hospital admission. Patient will be admitted to the hospital service for further evaluation and monitoring. Patient was not given a 30 mL/kg bolus of fluid with unknown cardiopulmonary function the setting of an elevated troponin. - Lab Data Lab results reviewed: Yes I reviewed the patient's lab results. Result diagrams: 12/09/17 13:10 12/09/17 13:10 Lab Results 12/09/17 12/09/17 12/09/17 Range/Units 13:10 13:10 13:14 WBC 16.8 H D (4.3-11.1) K/mcL RBC 3.35 L (3.82-4.97) M/mcL Hgb 9.5 L (11.5-15.4) g/dL Hct 31.1 L (35.3-44.9) % MCV 92.8 (83.0-100.0) fL MCH 28.4 (28.0-33.3) pg MCHC 30.5 L (31.6-35.5) g/dL RDW 15.7 H (11.5-14.5) % Plt Count 417 H (140-400) K/mcL MPV 10.2 (9.4-12.4) fL Immature Gran % 0.7 (0-4) % Seg Neutrophils % 82.6 % Lymphocytes % 8.2 % Monocytes % 8.2 % Eosinophils % 0.1 % Basophils % 0.2 % Neutrophils # 13.9 H (1.6-8.9) K/mcL Lymphocytes # 1.4 (0.6-4.6) K/mcL Monocytes # 1.4 H (0.0-1.3) K/mcL Eosinophils # 0.0 (0.0-0.6) K/mcL Basophils # 0.0 (0.0-0.2) K/mcL VBG pH (7.32-7.42) pH Units VBG pCO2 (41-51) mmHg VBG pO2 (25-50) mmHg VBG HCO3 (21-27) mEq/L Sodium 141 (136-145) mEq/L Potassium 4.2 (3.5-5.1) mEq/L Chloride 104 (98-107) mEq/L Carbon Dioxide 27 (23-29) mEq/L BUN 49 H (8-23) mg/dL Creatinine 3.48 H (0.60-1.20) mg/dL Est GFR ( Amer) 16 L (> 60) Est GFR (Non-Af Amer) 13 L (> 60) BUN/Creatinine Ratio 14 (6-26) Glucose 198 H (70-105) mg/dL POC Glucose 287 H (70-99) mg/dL Calculated Osmolality 311 H (280-300) Lactic Acid (0.5-2.2) mmol/L Calcium 8.8 (8.6-10.3) mg/dL Total Bilirubin 0.6 (0.3-1.0) mg/dL Direct Bilirubin 0.3 H (0.0-0.2) mg/dL Indirect Bilirubin 0.3 (0.0-1.2) mg/dL AST 23 (13-39) Units/L ALT 11 (7-52) Units/L Alkaline Phosphatase 119 H (34-104) Units/L Ammonia (16-53) mcmol/L Troponin I 2.67 H* (< 0.04) ng/mL Serum Total Protein 7.2 (6.4-8.9) g/dL Albumin 2.7 L (3.5-5.7) g/dL Globulin 4.5 H (2.4-3.5) g/dL Albumin/Globulin Ratio 0.6 L (1.1-2.2) Beta-Hydroxybutyric Acd (0.02-0.27) mmol/L Urine Color (Yellow) Urine Clarity (Clear) Urine pH (5.0-8.0) pH Units Ur Specific Moseley (1.010-1.025) Urine Protein (Neg-Trace) mg/dL Urine Glucose (UA) (Normal) mg/dL Urine Ketones (Negative) mg/dL Urine Blood (Negative) Urine Nitrite (Negative) Urine Bilirubin (Negative) Urine Urobilinogen (Normal) mg/dL Ur Leukocyte Esterase (Negative) Urine Microscopic RBC (0-3) per hpf Urine Microscopic WBC (0-3) per hpf Ur Squamous Epith Cells (None-Few) per lpf Urine Bacteria (None-Few) per hpf Hyaline Casts (None-Few) per lpf Ur Culture Indicated? (NO) Urine Opiates Screen (Cifjnj=159) ng/mL Ur Barbiturates Screen (Uamfwq=728) ng/mL Ur Phencyclidine Scrn (Cutoff=25) ng/mL Ur Amphetamines Screen (Vvdaii=9653) ng/mL U Benzodiazepines Scrn (Onakja=448) ng/mL Urine Cocaine Screen (Cutoff= 300) ng/mL U Marijuana (THC) Screen (Cutoff = 50) ng/mL Ur Drug Screen Interp Ethyl Alcohol < 10 (Less than 10) mg/dL 12/09/17 12/09/17 12/09/17 Range/Units 13:51 14:25 15:13 WBC (4.3-11.1) K/mcL RBC (3.82-4.97) M/mcL Hgb (11.5-15.4) g/dL Hct (35.3-44.9) % MCV (83.0-100.0) fL MCH (28.0-33.3) pg MCHC (31.6-35.5) g/dL RDW (11.5-14.5) % Plt Count (140-400) K/mcL MPV (9.4-12.4) fL Immature Gran % (0-4) % Seg Neutrophils % % Lymphocytes % % Monocytes % % Eosinophils % % Basophils % % Neutrophils # (1.6-8.9) K/mcL Lymphocytes # (0.6-4.6) K/mcL Monocytes # (0.0-1.3) K/mcL Eosinophils # (0.0-0.6) K/mcL Basophils # (0.0-0.2) K/mcL VBG pH 7.43 H (7.32-7.42) pH Units VBG pCO2 41 (41-51) mmHg VBG pO2 41 (25-50) mmHg VBG HCO3 27 (21-27) mEq/L Sodium (136-145) mEq/L Potassium (3.5-5.1) mEq/L Chloride (98-107) mEq/L Carbon Dioxide (23-29) mEq/L BUN (8-23) mg/dL Creatinine (0.60-1.20) mg/dL Est GFR ( Amer) (> 60) Est GFR (Non-Af Amer) (> 60) BUN/Creatinine Ratio (6-26) Glucose (70-105) mg/dL POC Glucose (70-99) mg/dL Calculated Osmolality (280-300) Lactic Acid (0.5-2.2) mmol/L Calcium (8.6-10.3) mg/dL Total Bilirubin (0.3-1.0) mg/dL Direct Bilirubin (0.0-0.2) mg/dL Indirect Bilirubin (0.0-1.2) mg/dL AST (13-39) Units/L ALT (7-52) Units/L Alkaline Phosphatase (34-104) Units/L Ammonia 20 (16-53) mcmol/L Troponin I (< 0.04) ng/mL Serum Total Protein (6.4-8.9) g/dL Albumin (3.5-5.7) g/dL Globulin (2.4-3.5) g/dL Albumin/Globulin Ratio (1.1-2.2) Beta-Hydroxybutyric Acd 0.23 (0.02-0.27) mmol/L Urine Color (Yellow) Urine Clarity (Clear) Urine pH (5.0-8.0) pH Units Ur Specific Moseley (1.010-1.025) Urine Protein (Neg-Trace) mg/dL Urine Glucose (UA) (Normal) mg/dL Urine Ketones (Negative) mg/dL Urine Blood (Negative) Urine Nitrite (Negative) Urine Bilirubin (Negative) Urine Urobilinogen (Normal) mg/dL Ur Leukocyte Esterase (Negative) Urine Microscopic RBC (0-3) per hpf Urine Microscopic WBC (0-3) per hpf Ur Squamous Epith Cells (None-Few) per lpf Urine Bacteria (None-Few) per hpf Hyaline Casts (None-Few) per lpf Ur Culture Indicated? (NO) Urine Opiates Screen (Pprjmm=994) ng/mL Ur Barbiturates Screen (Rhyzog=128) ng/mL Ur Phencyclidine Scrn (Cutoff=25) ng/mL Ur Amphetamines Screen (Zhiapa=0046) ng/mL U Benzodiazepines Scrn (Ojgkns=454) ng/mL Urine Cocaine Screen (Cutoff= 300) ng/mL U Marijuana (THC) Screen (Cutoff = 50) ng/mL Ur Drug Screen Interp Ethyl Alcohol (Less than 10) mg/dL 12/09/17 12/09/17 12/09/17 Range/Units 15:13 15:36 16:00 WBC (4.3-11.1) K/mcL RBC (3.82-4.97) M/mcL Hgb (11.5-15.4) g/dL Hct (35.3-44.9) % MCV (83.0-100.0) fL MCH (28.0-33.3) pg MCHC (31.6-35.5) g/dL RDW (11.5-14.5) % Plt Count (140-400) K/mcL MPV (9.4-12.4) fL Immature Gran % (0-4) % Seg Neutrophils % % Lymphocytes % % Monocytes % % Eosinophils % % Basophils % % Neutrophils # (1.6-8.9) K/mcL Lymphocytes # (0.6-4.6) K/mcL Monocytes # (0.0-1.3) K/mcL Eosinophils # (0.0-0.6) K/mcL Basophils # (0.0-0.2) K/mcL VBG pH 7.45 H (7.32-7.42) pH Units VBG pCO2 39 L (41-51) mmHg VBG pO2 100 H (25-50) mmHg VBG HCO3 27 (21-27) mEq/L Sodium (136-145) mEq/L Potassium (3.5-5.1) mEq/L Chloride (98-107) mEq/L Carbon Dioxide (23-29) mEq/L BUN (8-23) mg/dL Creatinine (0.60-1.20) mg/dL Est GFR ( Amer) (> 60) Est GFR (Non-Af Amer) (> 60) BUN/Creatinine Ratio (6-26) Glucose (70-105) mg/dL POC Glucose (70-99) mg/dL Calculated Osmolality (280-300) Lactic Acid 3.2 H (0.5-2.2) mmol/L Calcium (8.6-10.3) mg/dL Total Bilirubin (0.3-1.0) mg/dL Direct Bilirubin (0.0-0.2) mg/dL Indirect Bilirubin (0.0-1.2) mg/dL AST (13-39) Units/L ALT (7-52) Units/L Alkaline Phosphatase (34-104) Units/L Ammonia (16-53) mcmol/L Troponin I (< 0.04) ng/mL Serum Total Protein (6.4-8.9) g/dL Albumin (3.5-5.7) g/dL Globulin (2.4-3.5) g/dL Albumin/Globulin Ratio (1.1-2.2) Beta-Hydroxybutyric Acd (0.02-0.27) mmol/L Urine Color (Yellow) Urine Clarity (Clear) Urine pH (5.0-8.0) pH Units Ur Specific [place] (1.010-1.025) Urine Protein (Neg-Trace) mg/dL Urine Glucose (UA) (Normal) mg/dL Urine Ketones (Negative) mg/dL Urine Blood (Negative) Urine Nitrite (Negative) Urine Bilirubin (Negative) Urine Urobilinogen (Normal) mg/dL Ur Leukocyte Esterase (Negative) Urine Microscopic RBC (0-3) per hpf Urine Microscopic WBC (0-3) per hpf Ur Squamous Epith Cells (None-Few) per lpf Urine Bacteria (None-Few) per hpf Hyaline Casts (None-Few) per lpf Ur Culture Indicated? (NO) Urine Opiates Screen Negative (Ldzmvu=182) ng/mL Ur Barbiturates Screen Negative (Fnuqdf=401) ng/mL Ur Phencyclidine Scrn Negative (Cutoff=25) ng/mL Ur Amphetamines Screen Negative (Ppecme=5919) ng/mL U Benzodiazepines Scrn Negative (Ffvplk=738) ng/mL Urine Cocaine Screen Negative (Cutoff= 300) ng/mL U Marijuana (THC) Screen Negative (Cutoff = 50) ng/mL Ur Drug Screen Interp See Below Ethyl Alcohol (Less than 10) mg/dL 12/09/17 Range/Units 16:02 WBC (4.3-11.1) K/mcL RBC (3.82-4.97) M/mcL Hgb (11.5-15.4) g/dL Hct (35.3-44.9) % MCV (83.0-100.0) fL MCH (28.0-33.3) pg MCHC (31.6-35.5) g/dL RDW (11.5-14.5) % Plt Count (140-400) K/mcL MPV (9.4-12.4) fL Immature Gran % (0-4) % Seg Neutrophils % % Lymphocytes % % Monocytes % % Eosinophils % % Basophils % % Neutrophils # (1.6-8.9) K/mcL Lymphocytes # (0.6-4.6) K/mcL Monocytes # (0.0-1.3) K/mcL Eosinophils # (0.0-0.6) K/mcL Basophils # (0.0-0.2) K/mcL VBG pH (7.32-7.42) pH Units VBG pCO2 (41-51) mmHg VBG pO2 (25-50) mmHg VBG HCO3 (21-27) mEq/L Sodium (136-145) mEq/L Potassium (3.5-5.1) mEq/L Chloride (98-107) mEq/L Carbon Dioxide (23-29) mEq/L BUN (8-23) mg/dL Creatinine (0.60-1.20) mg/dL Est GFR ( Amer) (> 60) Est GFR (Non-Af Amer) (> 60) BUN/Creatinine Ratio (6-26) Glucose (70-105) mg/dL POC Glucose (70-99) mg/dL Calculated Osmolality (280-300) Lactic Acid (0.5-2.2) mmol/L Calcium (8.6-10.3) mg/dL Total Bilirubin (0.3-1.0) mg/dL Direct Bilirubin (0.0-0.2) mg/dL Indirect Bilirubin (0.0-1.2) mg/dL AST (13-39) Units/L ALT (7-52) Units/L Alkaline Phosphatase (34-104) Units/L Ammonia (16-53) mcmol/L Troponin I (< 0.04) ng/mL Serum Total Protein (6.4-8.9) g/dL Albumin (3.5-5.7) g/dL Globulin (2.4-3.5) g/dL Albumin/Globulin Ratio (1.1-2.2) Beta-Hydroxybutyric Acd (0.02-0.27) mmol/L Urine Color Yellow (Yellow) Urine Clarity Turbid A (Clear) Urine pH 7.0 (5.0-8.0) pH Units Ur Specific [place]ose[place] 1.021 (1.010-1.025) Urine Protein >=300 H (Neg-Trace) mg/dL Urine Glucose (UA) Normal (Normal) mg/dL Urine Ketones Negative (Negative) mg/dL Urine Blood Large H (Negative) Urine Nitrite Negative (Negative) Urine Bilirubin Negative (Negative) Urine Urobilinogen Normal (Normal) mg/dL Ur Leukocyte Esterase Large H (Negative) Urine Microscopic RBC 30-50 H (0-3) per hpf Urine Microscopic WBC TNTC H (0-3) per hpf Ur Squamous Epith Cells Many H (None-Few) per lpf Urine Bacteria Many H (None-Few) per hpf Hyaline Casts None Seen (None-Few) per lpf Ur Culture Indicated? NO. A (NO) Urine Opiates Screen (Owiawt=695) ng/mL Ur Barbiturates Screen (Mftglf=114) ng/mL Ur Phencyclidine Scrn (Cutoff=25) ng/mL Ur Amphetamines Screen (Frciwe=5142) ng/mL U Benzodiazepines Scrn (Dvbkks=712) ng/mL Urine Cocaine Screen (Cutoff= 300) ng/mL U Marijuana (THC) Screen (Cutoff = 50) ng/mL Ur Drug Screen Interp Ethyl Alcohol (Less than 10) mg/dL - Radiology Data Radiology results reviewed: Yes I reviewed the patient's radiology results. Chest X-Ray 12/09/17 13:10 IMPRESSION: Some worsening compared with the previous evaluation with more pronounced bilateral infiltrates which may represent pulmonary edema due to CHF. D/ / 12/09/2017 15:05:23 Ce Jacques MD / [facility] Interpreting Provider: Ce Jacques MD Chest X-Ray 12/09/17 13:10 IMPRESSION: Some worsening compared with the previous evaluation with more pronounced bilateral infiltrates which may represent pulmonary edema due to CHF. D/ / 12/09/2017 15:05:23 Ce Jacques MD / [facility] Interpreting Provider: Ce Jacques MD Head CT 12/09/17 13:11 IMPRESSION: No acute intracranial abnormality. No significant change since recent prior examination. Chronic white matter microangiopathic ischemic changes. D/ / Fred Stubbs MD / Fred Stubbs MD Interpreting Provider: Fred Stubbs MD Abdomen/Pelvis CT 12/09/17 15:26 IMPRESSION: Interval increase in size of bilateral pleural effusions; persistent bibasilar airspace disease, mostly dependent, atelectasis and/or pneumonia. Perivesical fat stranding. Correlation for cystitis is recommended. Otherwise stable abdominopelvic noncontrast findings. D/ / Adela Waller Cha, MD / Adela Waller Cha, MD Interpreting Provider: Adela Waller Cha, MD - EKG Data EKG #1 EKG attestation: Yes I reviewed and interpreted this EKG. EKG results narrative: Ventricular paced rhythm at a rate of 106. No signs of scar Boase's or excessive discordant. Similar to prior EKGs. Normal access. S.B.AHerber - Qasim.Chirag.AHerber Situation: Demographics Background: Presenting Complaint Assessment: Vital Signs, Course and respsone to treatment, Patient/Family Expectation Recommendation: Barrier(s) to disposition, Recommendation based on pending studies, treatments, or consults S.B.A.RRenee Report Given to: Dr. Kaity Sevilla Repor Time: 17:22
[2017-12-09 14:21] LABS: Red Blood Count 3.35 M/mcL (3.82-4.97)
[2017-12-09 14:22] LABS: Basophils % 0.2 %; Eosinophils % 0.1 %; Hematocrit 31.1 % (35.3-44.9); Hemoglobin 9.5 g/dL (11.5-15.4); Immature Granulocytes % 0.7 % (0-4); Lymphocytes # 1.4 K/mcL (0.6-4.6); Lymphocytes % 8.2 %; Mean Corpuscular HGB Conc 30.5 g/dL (31.6-35.5); Mean Corpuscular Hemoglobin 28.4 pg (28.0-33.3); Mean Corpuscular Volume 92.8 fL (83.0-100.0); Mean Platelet Volume 10.2 fL (9.4-12.4); Monocytes # 1.4 K/mcL (0.0-1.3); Monocytes % 8.2 %; Platelet Count 417 K/mcL (140-400); Red Cell Distribution Width 15.7 % (11.5-14.5); Segmented Neutrophils % 82.6 %
[2017-12-09 14:23] LABS: Neutrophils # 13.9 K/mcL (1.6-8.9)
[2017-12-09 14:28] LABS: VBG HCO3 27 mEq/L (21-27); VBG PCO2 41 mmHg (41-51); VBG PH 7.43 pH Units (7.32-7.42); VBG PO2 41 mmHg (25-50)
[2017-12-09 14:55] LABS: Troponin I 2.67 ng/mL (< 0.04)
[2017-12-09 15:10] LABS: Alanine Aminotransferase 11 Units/L (7-52); Albumin 2.7 g/dL (3.5-5.7); Albumin/Globulin Ratio 0.6 (1.1-2.2); Alkaline Phosphatase 119 Units/L (34-104); Aspartate Amino Transferase 23 Units/L (13-39); BUN/Creatinine Ratio 14 (6-26); Bilirubin,Direct 0.3 mg/dL (0.0-0.2); Bilirubin,Indirect 0.3 mg/dL (0.0-1.2); Bilirubin,Total 0.6 mg/dL (0.3-1.0); Blood Urea Nitrogen 49 mg/dL (8-23); Calcium 8.8 mg/dL (8.6-10.3); Carbon Dioxide 27 mEq/L (23-29); Chloride 104 mEq/L (98-107); Ethanol < 10 mg/dL (Less than 10); Globulin 4.5 g/dL (2.4-3.5); Glucose 198 mg/dL (70-105); Osmolality,Calculated 311 (280-300); Potassium 4.2 mEq/L (3.5-5.1); Sodium 141 mEq/L (136-145); Total Protein 7.2 g/dL (6.4-8.9); eGFR For Non-African Americans 13 (> 60)
[2017-12-09 15:41] LABS: VBG HCO3 27 mEq/L (21-27); VBG PCO2 39 mmHg (41-51); VBG PH 7.45 pH Units (7.32-7.42); VBG PO2 100 mmHg (25-50)
[2017-12-09] MEDS ORDERED: Aspirin 325 MG TABLET PO ONE (15:59)
[2017-12-09] MEDS ORDERED: Cefepime HCl 2,000 MG in 0.9 % Sodium Chloride Mini Bag 100 ML IVPB ONE (16:00)
[2017-12-09 16:21] LABS: Bilirubin,Urine Negative (Negative); Blood,Urine Large (Negative); Clarity,Urine Turbid (Clear); Color,Urine Yellow (Yellow); Glucose,Urine (UA) Normal (Normal); Ketones,Urine Negative (Negative); Leukocyte Esterase,Urine Large (Negative); Nitrite,Urine Negative (Negative); Protein,Urine >=300 mg/dL (Neg-Trace); Specific Gravity,Urine 1.021 (1.010-1.025); Urobilinogen,Urine Normal (Normal)
[2017-12-09 16:24] LABS: RBC,Urine 30-50 per hpf (0-3); Squamous Epithelial Cell,Urine Many per lpf (None-Few); WBC,Urine TNTC per hpf (0-3)
[2017-12-09 16:29] LABS: Amphetamine Screen,Urine Negative ng/mL (Cutoff=1000); Barbiturate Screen,Urine Negative ng/mL (Cutoff=200); Benzodiazepines Screen,Urine Negative ng/mL (Cutoff=200); Cannabinoid Screen,Urine Negative ng/mL (Cutoff = 50); Cocaine Screen,Urine Negative ng/mL (Cutoff= 300); Opiate Screen,Urine Negative ng/mL (Cutoff=300); Phencyclidine Screen,Urine Negative ng/mL (Cutoff=25)
[2017-12-09] MEDS ORDERED: Acetaminophen 650 MG RECTAL SUPP RC ONE (16:39)
[2017-12-09 16:41] LABS: Hyaline Casts,Urine None Seen per lpf (None-Few)
[2017-12-09 16:42] LABS: Bacteria,Urine Many per hpf (None-Few)
[2017-12-09] MEDS ORDERED: *HR* Heparin 5,000 UNIT/ML VIAL IVP PRN (18:33)
[2017-12-09] MEDS ORDERED: *HR* Heparin 5,000 UNIT/ML VIAL IVP ONE (18:33)
[2017-12-09] MEDS ORDERED: *HR* Dextrose 50 % in Water (Syg) 50 ML SYRINGE IVP PRN (18:33)
[2017-12-09] MEDS ORDERED: Naloxone 0.4 MG/ML INJ IVP PRN (18:33)
[2017-12-09] MEDS ORDERED: Dextrose Gel 15 GM/37.5 ML TUBE PO PRN ×2 (18:33)
[2017-12-09] MEDS ORDERED: D5% in Water 1,000 ML IVC PRN (18:33)
--- NOTE | 2017-12-09 18:39 | Electrocardiograph Report ---
[facility] Test Date: 2017-12-09 Pat Name: Eleni Bentley Department: EXAM17 Room: 2N02 Gender: F Policy Manager: : [id number] Requested By: Rhoda See Order Number: [id number] Reading MD: August Caceres Measurements Intervals [place] Rate: 106 P: -69 MS: 95 QRS: -73 QRSD: 130 T: 116 QT: 384 QTc: 510 Interpretive Statements Ventricular-paced complexes No further analysis attempted due to paced rhythm Electronically Signed On 12-09-2017 18:37:45 EDT by August Caceres
--- NOTE | 2017-12-09 18:43 | Internal Med History&Physical ---
<Anatoliy Ramirez S - Last Filed: 12/09/17 18:38> Date of Encounter: 12/09/17 Time of Encounter: 06:38 Internal Medicine - H&P: HPI Chief complaint: "AMS" Admitted From: Long-term Nursing Facility Plans for Post Hospital Care: Transfer Nursing Home Care History of present illness: Ms. Bentley is a 72 year old female with PMH of T2DM, HTN, HDL, catatonia, chronic systolic heart failure, CKD, recurrent UTI, and chronic psychiatry problems. She was admitted from the half-way due to AMS and was found to have a UTI in the ER. Of note, the pt was recently aditted for hematuria and sepsis secondary to UTI. She was intubated and required pressor support. She went into renal failure 2/2 obstructive uropathy and b/l hydronpehrosis. She had a ureteral stent placed -tx with cefepime last time she was here -ID recommended vanc and cefepime for 7 and 11 days, respectivelt She was discharged on 12/08/17 -today she is back and cannot give a hx. The nurse gives us as much history as possible. Apperently she was altered at the half-way and had "milky urine" coming out of the catheter -the pt also had a positive troponin at 2.67, however, she is unable to give us a hx or if she in chest pain -overall the pt is a poor historian and not much hx can be obtained Past Med Surg Social Fam HX - Past Medical History Medical history: cardiomyopathy, CHF, coronary artery disease, CVA, diabetes, GERD, hyperlipidemia, hypertension, kidney stones, myocardial infarction, peripheral artery disease, renal disease, TIA Additional medical history: renal insufficiency, blood thinner Psychiatric history: depression, previous psychiatric hospitalization - Past Surgical History Surgical History: appendectomy, breast surgery, carotid endarterectomy, cholecystectomy, coronary bypass (CABG), hysterectomy, pacemaker/AICD, LE vascular intervention Additional surgical history: cyst removed in left breast, left chest pacer/AICD - Social History Smoking Status: Former smoker Smokeless Tobacco Status: No Alcohol use: none Drug use: none - Family History Mother Living Status: Hx Family Cardiac Disorders: Yes (HTN) Hx Family Endocrine Disorder: Yes (diabetes) Hx Family Neurologic Disorders: Yes (2 strokes) Father Living Status: Hx Family Cardiac Disorders: Yes Hx Family Respiratory Disorders: Yes Hx Family Neurologic Disorders: Yes Internal Medicine - H&P: Meds Aspirin Enteric Coated [Aspirin EC] 81 mg PO DAILY 08/20/15 [History] Metoprolol XL (24 HR) Succ [Toprol Xl] 50 mg PO DAILY #30 tab.er.24h 01/07/16 [ Rx] Insulin Glargine,Hum.rec.anlog [[place] Solostar] 45 units SQ HS 06/10/16 [ History] Multivit-Minerals/Folic/Ginkgo [One Daily For Women 50+ Adv Tb] 1 tab PO DAILY 06/10/16 [History] Furosemide [Lasix] 40 mg PO QAM 10/03/16 [History] Insulin ASPART [Novolog Flexpen] 25 unit SQ TIDWM 10/03/16 [History] Clopidogrel [Plavix] 75 mg PO DAILY 11/03/17 [History] Oxybutynin Chloride [Ditropan Xl] 10 mg PO DAILY 11/03/17 [History] Rosuvastatin Calcium 10 mg PO HS 11/03/17 [History] Ascorbic Acid [Vitamin C] 500 mg PO BID 11/17/17 [History] Ergocalciferol (VITAMIN D2) [Vitamin D2] 50,000 unit PO QWEEK 11/17/17 [History] Dextromethorphan HBr/Quinidine [Nuedexta 20-10 mg Capsule] 1 each PO DAILY 30 Days #30 capsule 12/08/17 [Rx] Ferrous Sulfate 325 mg PO DAILY@0800 tablet 12/08/17 [Rx] LORazepam [Ativan] 1 mg PO TID 6 Days #18 tablet 12/08/17 [Rx] Miconazole 2% ointment [Aloe [place] Antifungal Ointment] 1 appl TP DAILY tube [Rx] amLODIPine [Norvasc] 10 mg PO DAILY tablet 12/08/17 [Rx] 3 Allergy/AdvReac Type Severity Reaction Status Date / Time venom-honey bee Allergy Severe Swelling Verified 11/03/17 10:53 [bee venom (honey bee)] of Lip/Tongue/Throat Cortisone Allergy Mild Hives Verified 11/03/17 10:53 Penicillins Allergy See Verified 11/03/17 10:53 Comments NSAIDS (Non-Steroidal AdvReac Mild UPSET Verified 11/03/17 10:53 Anti-Inflamma STOMACH cefazolin [From Ancef] AdvReac Hives Verified 11/03/17 10:53 Jadxdso-Fko-Dyk Reductase AdvReac Muscle Pain Verified 11/03/17 10:53 Inhibitor [Statins] GRAPE FLAVOR Allergy Mild Swelling Uncoded 11/03/17 10:53 of the Eye ROS unobtainable: due to mental status All Systems PM: A 10-system review of systems was performed and is negative for pertinent findings except as documented above in the HPI. - Constitutional Vitals: Temp Pulse Resp BP Pulse Ox 97.9 F 106 16 107/47 90 12/09/17 18:05 12/09/17 18:05 12/09/17 18:05 12/09/17 18:05 12/09/17 18:05 Exam: General - disscheveled, AOx0, no distress Cardio - tacycardia, s1s2, regular rhythm lungs - ctab, no wheeze abd - NTND, nno rebound or guarding, obese extremities - stage 1 pressure ulcers B/L heels skin - venous stasis B/L LE Internal Med - H&P Results - Labs CBC & Chem 7: 12/09/17 13:10 12/09/17 13:10 - Assessment and plan (1) Sepsis Current Visit: Yes Status: Acute Assessment and plan: Meets SIRS critera with (+) source of infxn as UA HR 114, RR 22, WBC 16.8 UA showed large leukocyte esterase, 30-50 RBC, TNTC WBC Lactic acid 3.2 Pt was recently admitted for hematuria/sepsis 2/2 UTI and was tx with Vanc and Cefepime, as per ID Plan: -75cc NS 0.9% for 1L -start cefepime 2g q12hr -blood cx pending -CBC and CMP in AM -vitals q4hr Qualifiers: Sepsis type: sepsis due to unspecified organism Qualified Code(s): A41.9 - Sepsis, unspecified organism (2) UTI (urinary tract infection) Current Visit: Yes Status: Acute Assessment and plan: UA showed large leukocyte esterase, 30-50 RBC, TNTC WBC Lactic acid 3.2 Pt was recently admitted for hematuria/sepsis 2/2 UTI and was tx with Vanc and Cefepime, as per ID Plan: -75cc NS 0.9% for 1L -start cefepime 2g q12hr -blood cx pending -CBC and CMP in AM -catheter in place, measure I&O's Qualifiers: Urinary tract infection type: site unspecified Hematuria presence: without hematuria Qualified Code(s): N39.0 - Urinary tract infection, site not specified (3) Nonverbal Current Visit: No Status: Chronic Assessment and plan: Pt is unable to give a hx -most likely secondary to chronic psychatric issues -pt has a hx of catatonia -recommended to have psych inpatient tx and ECT, social work needs to follow up with this (4) Elevated troponin Current Visit: Yes Status: Acute Assessment and plan: Troponin 2.67 Type 1 vs type 2 TX -unable to assess for DAVIDA score 2/2 pt AMS -ekg showed no acute ST elevation or t wave inversion Plan: -serial troponins -cardiology consulted -heparin drip as per ACS protocol -NPO (5) Hypertension Current Visit: No Status: Chronic Assessment and plan: BP 136/71 -adequate control -continue home meds - amlodipine 10mg, toprol 50mg, Qualifiers: Hypertension type: essential hypertension Qualified Code(s): I10 - Essential (primary) hypertension (6) Chronic kidney disease (CKD) Current Visit: No Status: Chronic Assessment and plan: Pt has hx of CKD Creatinine 3.48 on admission -appears to be at baseline BUN 49, also appears to be at baseline Plan: -check CMP in AM Qualifiers: Chronic kidney disease stage: stage 4 (severe) Qualified Code(s): N18.4 - Chronic kidney disease, stage 4 (severe) (7) Type 2 diabetes mellitus Current Visit: No Status: Chronic Assessment and plan: Glucose 198 -low dose sliding scale -NPO for now Qualifiers: Diabetes mellitus mcc insulin use: with mcc use Diabetes mellitus complication status: with kidney complications Diabetes mellitus complication detail: with chronic kidney disease Chronic kidney disease stage : stage 4 (severe) Qualified Code(s): E11.22 - Type 2 diabetes mellitus with diabetic chronic kidney disease; N18.4 - Chronic kidney disease, stage 4 (severe ); Z79.4 - [facility] (current) use of insulin (8) Chronic systolic heart failure Current Visit: No Status: Chronic Assessment and plan: Last ECHO was in 2017 -LVEF at that time was 30% Not in acute exacerbation -pt unable to give hx if she is having CP/SOB Plan: -recheck ECHO -cardiology consulted -continue home meds -NPO -on rosuvastatin 10mg, toprol 50mg, lasix 40mg , plavix 75mg, ASA 81mg (9) DVT prophylaxis Current Visit: No Status: Acute Assessment and plan: heparin drip as per protocol (10) Obesity (BMI 30-39.9) Current Visit: No Status: Chronic Assessment and plan: BMI is 39.9 -cardiac diet -check prealbumin - Time Spent With Patient Total time spent is greater than 50% in coordination of care (as documented) at patient's floor/unit and/or counseling patient: 25 - 35 minutes <Wilfred Bunn - Last Filed: 12/09/17 19:09> Date of Encounter: 12/09/17 Internal Medicine - H&P: HPI History of present illness: Ms. Bentley is a 72 year old female All Systems PM: A 10-system review of systems was performed and is negative for pertinent findings except as documented above in the HPI. - Constitutional Vitals: Temp Pulse Resp BP Pulse Ox 97.9 F 106 16 107/47 90 12/09/17 18:05 12/09/17 18:05 12/09/17 18:05 12/09/17 18:05 12/09/17 18:05 Internal Med - H&P Results - Labs CBC & Chem 7: 12/09/17 13:10 12/09/17 13:10 - Assessment and plan (1) DVT prophylaxis Current Visit: No Status: Acute (2) Elevated troponin Current Visit: Yes Status: Acute (3) Hypertension Current Visit: No Status: Chronic Qualifiers: Hypertension type: essential hypertension Qualified Code(s): I10 - Essential (primary) hypertension (4) Chronic kidney disease (CKD) Current Visit: No Status: Chronic Qualifiers: Chronic kidney disease stage: stage 4 (severe) Qualified Code(s): N18.4 - Chronic kidney disease, stage 4 (severe) (5) Type 2 diabetes mellitus Current Visit: No Status: Chronic Qualifiers: Diabetes mellitus extermination supervisor insulin use: with mcc use Diabetes mellitus complication status: with kidney complications Diabetes mellitus complication detail: with chronic kidney disease Chronic kidney disease stage : stage 4 (severe) Qualified Code(s): E11.22 - Type 2 diabetes mellitus with diabetic chronic kidney disease; N18.4 - Chronic kidney disease, stage 4 (severe ); Z79.4 - extermination supervisor (current) use of insulin (6) Chronic systolic heart failure Current Visit: No Status: Chronic (7) Sepsis Current Visit: Yes Status: Acute Qualifiers: Sepsis type: sepsis due to unspecified organism Qualified Code(s): A41.9 - Sepsis, unspecified organism (8) UTI (urinary tract infection) Current Visit: Yes Status: Acute Qualifiers: Urinary tract infection type: site unspecified Hematuria presence: without hematuria Qualified Code(s): N39.0 - Urinary tract infection, site not specified (9) Nonverbal Current Visit: No Status: Chronic (10) Obesity (BMI 30-39.9) Current Visit: No Status: Chronic - Time Spent With Patient Total time spent is greater than 50% in coordination of care (as documented) at patient's floor/unit and/or counseling patient: - Attending Attestation I examined this patient and my medical decision-making was reviewed with the Resident Physician Dr. Ramirez. I agree with the documented findings, disposition and treatment plan as described except to the extent set forth below. Ms. Bentley is a 72 year old female with PMH of T2DM, HTN, HDL, catatonia, chronic systolic heart failure, CKD, recurrent UTI, and chronic psychiatry problems. She was admitted from the half-way due to AMS and was found to have a UTI in the ER. Gen: A, A, following few commands only, no n verbal Chest: Diminished BS b/l , No wheezing Heart: S1S2+ Tachy, No murmurs a/p 1. Sepsis with UTI 2. Acute UTI IV hydration Empirical abx Cefepime urine cx and blood cx ordered 3. NSTEMI Heparin gtt ASA DC Card consulted Reviewed EKG - no acute ischemic changes 4. Acute toxic encephaloapthy also concerning for psychiatric related AMS Cont close monitoring Will consult Gen in AM
[2017-12-09] MEDS ORDERED: 0.9 % Sodium Chloride 1,000 ML IVC SCH (18:45)
[2017-12-09 19:04] LABS: Basophils # 0.1 K/mcL (0.0-0.2); Basophils % 0.3 %; Eosinophils # 0.1 K/mcL (0.0-0.6); Eosinophils % 0.6 %; Hematocrit 29.4 % (35.3-44.9); Immature Granulocytes % 0.4 % (0-4); Lymphocytes # 1.4 K/mcL (0.6-4.6); Lymphocytes % 9.3 %; Mean Corpuscular HGB Conc 30.6 g/dL (31.6-35.5); Mean Corpuscular Volume 91.6 fL (83.0-100.0); Monocytes # 1.3 K/mcL (0.0-1.3); Monocytes % 8.2 %; Neutrophils # 12.4 K/mcL (1.6-8.9); Platelet Count 360 K/mcL (140-400); Red Blood Count 3.21 M/mcL (3.82-4.97); Red Cell Distribution Width 15.7 % (11.5-14.5); Segmented Neutrophils % 81.2 %
[2017-12-09] MEDS: Heparin 25,000 UNIT/500 ML D5W 25,000 UNIT/500 ML BAG IVC SCH (20:00)
[2017-12-09] MEDS ORDERED: Insulin LISPRO 300 UNITS/3 ML VIAL SQ SCH (21:00)
[2017-12-10 01:12] LABS: Albumin 2.3 g/dL (3.5-5.7); Albumin/Globulin Ratio 0.6 (1.1-2.2); Bilirubin,Total 0.8 mg/dL (0.3-1.0); Calcium 7.9 mg/dL (8.6-10.3); Globulin 4.1 g/dL (2.4-3.5); Magnesium 1.8 mg/dL (1.6-2.6); Phosphorous 2.1 mg/dL (2.7-4.5); Potassium 4.6 mEq/L (3.5-5.1); Total Protein 6.4 g/dL (6.4-8.9)
[2017-12-10 03:14] LABS: INR 1.4; Prothrombin Time 15.6 Seconds (9.4-12.1)
[2017-12-10 03:17] LABS: Activated Partial Thrombo Time 71.2 Seconds (26.0-36.0)
--- NOTE | 2017-12-10 09:27 | Internal Med Progress Note ---
Hospitalist Progress Note - Encounter Date of Encounter: 12/10/17 Time of Encounter: 08:40 - Subjective Interval History: Ms. Bentley is a 72 year old female with PMH of T2DM, HTN, HDL, catatonia, chronic systolic heart failure, CKD-3, recurrent UTI, and chronic psychiatry problems who had an extensive hospital stay here during her last hospitalization. Pt was admitted with sepsis, due to URI later she developed shock, acute respiratroy failure, got intubated and she also happened to have DVT for which she was started on Anti coag. pt developed hematuria so anti coag got d/cd and placed IVC filter. Pt mentation was never improved, she was always non verbal and severe cataonic apperance. pt was evaluated by psych who recommend ECT treatment. pt was d/c to [facility] on 12/08/17. Now she was sent back to ER on with worsening AMS. She happened to have NSTEMI with Trop @ 2.16, UTI and TENISHA on CKD-3 with cr @ 3.48. She was admitted in the hospital and started her empirical abx Cefepime and also placed her on Heparin gtt. She is resting comfortably, still non verbal, catatonic apparence. does follow few commands. No events over night. - Exam Vitals: Temp Pulse Resp BP Pulse Ox 99.7 F H 118 18 113/91 92 12/10/17 07:07 12/10/17 07:07 12/10/17 07:07 12/10/17 07:07 12/10/17 07:07 Exam: General - disscheveled, AOx0, no distress, non verbal Cardio - tacycardia, s1s2, regular rhythm, no murmurs lungs - Diminished BS b/l, no wheezing, no crackles, no rales abd - NTND, nno rebound or guarding, obese extremities - stage 1 pressure ulcers B/L heels, edema +.. No cellulites skin - venous stasis B/L LE Psych: Depressed, catatonic appearance - Assessment and Plan (1) Sepsis Current Visit: Yes Status: Acute Assessment and Plan: Meets sepsis criteria with elevated WBC, tachcyardia, and source of inf as UTI and ?? PNA cont empirical abx Cefepime ..will add flagyl for anaerobic coverage IV hydration (2) UTI (urinary tract infection) Current Visit: Yes Status: Acute Assessment and Plan: UA showed large leukocyte esterase, 30-50 RBC, TNTC WBC Pt was recently admitted for hematuria/sepsis 2/2 UTI and was tx with Vanc and Cefepime, as per ID Her Urine did grow Yolanda in the past so Cont Cefepime and added Diflucan will f/u on Urine cx (3) Pneumonia Current Visit: No Status: Ruled-out Assessment and Plan: Reviewer chest x-ray and CT of abdomen and pelvis noticed infiltrates on the bilateral basal regions concerning for aspiration pneumonia continue Cefepime and added Flagyl for anaerobic coverage (4) NSTEMI (non-ST elevated myocardial infarction) Current Visit: Yes Status: Acute Assessment and Plan: Most likely demand ischemia due to sepsis with UTI and a pneumonia continue heparin drip for 48 hours EKG did not show any acute ischemic changes will give aspirin per rectum cardiology consulted (5) Catatonia Current Visit: Yes Status: Acute Assessment and Plan: Pt is nonverbal strict NPO for now she was evaluated by psychiatrist on her last hospitalization recommended to have psych inpatient tx and ECT Will consult psych once pt medically stable if patient continue not eating, will talk to family about tube feedings for now through NG / Dobhoff tube, eventually PEG as other alternative (6) Hypertension Current Visit: No Status: Chronic Assessment and Plan: BP stable with no meds cont close monitoring (7) Acute kidney injury superimposed on chronic kidney disease Current Visit: No Status: Acute Assessment and Plan: Worsening creatinine mostly due to dehydration and sepsis continue gentle IV hydration also will check retroperitoneal ultrasound poultry scientist consulted (8) Type 2 diabetes mellitus Current Visit: No Status: Chronic Assessment and Plan: -low dose sliding scale -NPO for now (9) Chronic systolic heart failure Current Visit: No Status: Chronic Assessment and Plan: Last ECHO was in 2017 LVEF at that time was 30% Not in acute exacerbation 2 D ECHO - P Holding diuretics for now due to worsening TENISHA (10) DVT prophylaxis Current Visit: No Status: Acute Assessment and Plan: heparin drip as per protocol (11) Obesity (BMI 30-39.9) Current Visit: No Status: Chronic Assessment and Plan: BMI is 39.9 - Time Spent with Patient Total time spent is greater than 50% in coordination of care (as documented) at patient's floor/unit and/or counseling patient: Internal Medicine: Result - Labs CBC & Chem 7: 09/07/18 18:56 12/10/17 00:46 Labs: Short CBC 12/09/17 Range/Units 18:56 WBC 15.3 H (4.3-11.1) K/mcL Hgb 9.0 L (11.5-15.4) g/dL Hct 29.4 L (35.3-44.9) % Plt Count 360 (140-400) K/mcL Neutrophils # 12.4 H (1.6-8.9) K/mcL BMP 12/10/17 00:46 Sodium 141 Potassium 4.6 Chloride 108 H Carbon Dioxide 23 BUN 53 H Creatinine 3.70 H Glucose 218 H Calcium 7.9 L Cardiac Enzymes 12/09/17 12/10/17 Range/Units 18:56 06:31 Troponin I 2.16 H* 0.86 H* (< 0.04) ng/mL Liver Function 12/10/17 Range/Units 00:46 Total Bilirubin 0.8 (0.3-1.0) mg/dL AST 21 (13-39) Units/L ALT 9 (7-52) Units/L Alkaline Phosphatase 112 H (34-104) Units/L Albumin 2.3 L (3.5-5.7) g/dL - ABG Interpretation ABG results: PT/INR, D-dimer PT 15.6 Seconds (9.4-12.1) H 12/10/17 02:55 Consult Discharge Plan - Plan Referrals: Wale Lam DO [Primary Care Provider] - (1) Sepsis Qualifiers: Sepsis type: sepsis due to unspecified organism Qualified Code(s): A41.9 - Sepsis, unspecified organism (2) UTI (urinary tract infection) Qualifiers: Urinary tract infection type: site unspecified Hematuria presence: without hematuria Qualified Code(s): N39.0 - Urinary tract infection, site not specified (3) Pneumonia Qualifiers: Pneumonia type: due to unspecified organism Laterality: right Lung location : lower lobe of lung Qualified Code(s): J18.1 - Lobar pneumonia, unspecified organism (6) Hypertension Qualifiers: Hypertension type: essential hypertension Qualified Code(s): I10 - Essential (primary) hypertension (8) Type 2 diabetes mellitus Qualifiers: Diabetes mellitus alf insulin use: with alf use Diabetes mellitus complication status: with kidney complications Diabetes mellitus complication detail: with chronic kidney disease Chronic kidney disease stage: stage 4 (severe) Qualified Code(s): E11.22 - Type 2 diabetes mellitus with diabetic chronic kidney disease; N18.4 - Chronic kidney disease, stage 4 (severe ); Z79.4 - [facility] (current) use of insulin
[2017-12-10] MEDS: *HR* Heparin 5,000 UNIT/ML VIAL IVP PRN ×2 (10:16→22:37)
[2017-12-10] MEDS ORDERED: Perflutren Lipid Microsphere 1.3 ML in 0.9 % Sodium Chloride 8.7 ML IVP ONE (10:17)
[2017-12-10] MEDS: Insulin LISPRO 300 UNITS/3 ML VIAL SQ SCH ×3 (10:19→16:37)
[2017-12-10] MEDS: MetroNIDAZOLE 500 MG/100 ML 500 MG/100 ML BAG IVPB SCH ×2 (10:20→16:37)
[2017-12-10] MEDS: D5% in 0.45% NACL 1,000 ML IVC SCH (10:20)
--- NOTE | 2017-12-10 10:33 | Cardiology Consult Note ---
Date of Encounter: 12/10/17 Time of Encounter: 10:30 Assessment and Plan (1) Biventricular ICD (implantable cardioverter-defibrillator) in place Current Visit: No Status: Chronic Appears to be functioning normally. (2) Elevated troponin Current Visit: Yes Status: Acute Likely type 2 IL, secondary to sepsis. Would recommend medical mgmt. Discussion w patient/family: The assessment and plan as outlined above was discussed with the patient and/or family members who expressed understanding and agreement. All questions were answered. Thank you for involving us in the care of your patient. Please call with any questions. History of Present Illness Consult date: 12/10/17 Requesting physician: Rosalio Briceno Consult reason: Abnormal troponin Chief complaint: MS changes History of present illness: Ms. Bentley is a 72 year old female with multiple medical problems including known 3 vessel CAD, CM, s/p BIV-ICD. Presents with possible urosepsis, mental status changes. Was noted on initial evaluation to have elevated troponin. She is currently unable to provide a history. Past Med Surg Social Fam HX - Past Medical History Medical history: cardiomyopathy, CHF, coronary artery disease, CVA, diabetes, GERD, hyperlipidemia, hypertension, kidney stones, myocardial infarction, peripheral artery disease, renal disease, TIA Additional medical history: renal insufficiency, blood thinner Psychiatric history: depression, previous psychiatric hospitalization - Past Surgical History Surgical History: appendectomy, breast surgery, carotid endarterectomy, cholecystectomy, coronary bypass (CABG), hysterectomy, pacemaker/AICD, LE vascular intervention Additional surgical history: cyst removed in left breast, left chest pacer/AICD - Social History Smoking Status: Former smoker Smokeless Tobacco Status: No Alcohol use: none Drug use: none - Family History Mother Living Status: Hx Family Cardiac Disorders: Yes (HTN) Hx Family Endocrine Disorder: Yes (diabetes) Hx Family Neurologic Disorders: Yes (2 strokes) Father Living Status: Hx Family Cardiac Disorders: Yes Hx Family Respiratory Disorders: Yes Hx Family Neurologic Disorders: Yes Medications and Allergies Aspirin Enteric Coated [Aspirin EC] 81 mg PO DAILY 08/20/15 [History] Metoprolol XL (24 HR) Succ [Toprol Xl] 50 mg PO DAILY #30 tab.er.24h 01/07/16 [ Rx] Insulin Glargine,Hum.rec.anlog [[place] Solostar] 45 units SQ HS 06/10/16 [ History] Multivit-Minerals/Folic/Ginkgo [One Daily For Women 50+ Adv Tb] 1 tab PO DAILY 06/10/16 [History] Furosemide [Lasix] 40 mg PO QAM 10/03/16 [History] Insulin ASPART [Novolog Flexpen] 25 unit SQ TIDWM 10/03/16 [History] Clopidogrel [Plavix] 75 mg PO DAILY 11/03/17 [History] Oxybutynin Chloride [Ditropan Xl] 10 mg PO DAILY 11/03/17 [History] Rosuvastatin Calcium 10 mg PO HS 11/03/17 [History] Ascorbic Acid [Vitamin C] 500 mg PO BID 11/17/17 [History] Ergocalciferol (VITAMIN D2) [Vitamin D2] 50,000 unit PO QWEEK 11/17/17 [History] Dextromethorphan HBr/Quinidine [Nuedexta 20-10 mg Capsule] 1 each PO DAILY 30 Days #30 capsule 12/08/17 [Rx] Ferrous Sulfate 325 mg PO DAILY@0800 tablet 12/08/17 [Rx] LORazepam [Ativan] 1 mg PO TID 6 Days #18 tablet 12/08/17 [Rx] Miconazole 2% ointment [Aloe [place] Antifungal Ointment] 1 appl TP DAILY tube [Rx] amLODIPine [Norvasc] 10 mg PO DAILY tablet 12/08/17 [Rx] 3 Allergy/AdvReac Type Severity Reaction Status Date / Time venom-honey bee Allergy Severe Swelling Verified 11/03/17 10:53 [bee venom (honey bee)] of Lip/Tongue/Throat Cortisone Allergy Mild Hives Verified 11/03/17 10:53 Penicillins Allergy See Verified 11/03/17 10:53 Comments NSAIDS (Non-Steroidal AdvReac Mild UPSET Verified 11/03/17 10:53 Anti-Inflamma STOMACH cefazolin [From Ancef] AdvReac Hives Verified 11/03/17 10:53 Ymlhgdd-Tuh-Ici Reductase AdvReac Muscle Pain Verified 11/03/17 10:53 Inhibitor [Statins] GRAPE FLAVOR Allergy Mild Swelling Uncoded 11/03/17 10:53 of the Eye ROS unobtainable: due to mental status All Systems Review: The remainder of the systems were reviewed and are negative Physical Examination Vital Signs, Last 4 Hours Temp Pulse Resp BP Pulse Ox 12/10/17 07:07 99.7 F H 118 18 113/91 92 General: Other (does not answer questions) HEENT: Atraumatic, Normocephaly, Mucus Membranes Moist Neck: No JVD, Normal carotid pulses Cardiac: Reg Rate and Rhythm, Normal S1 and S2, No Murmur Lungs: Normal Breath Sounds, No Wheeze, Rales, Rhonchi Abdomen: Soft, Non-Tender Extremities: Other (mild edemal) Results 12/09/17 18:56 12/10/17 00:46 Lab Results 12/09/17 12/09/17 12/10/17 18:56 18:56 00:46 WBC 15.3 H Hgb 9.0 L Hct 29.4 L Plt Count 360 INR APTT Sodium 141 Potassium 4.6 Chloride 108 H Carbon Dioxide 23 BUN 53 H Creatinine 3.70 H Glucose 218 H Calcium 7.9 L Magnesium 1.8 Total Bilirubin 0.8 AST 21 ALT 9 Alkaline Phosphatase 112 H Troponin I 2.16 H* 12/10/17 12/10/17 02:55 06:31 WBC Hgb Hct Plt Count INR 1.4 APTT 71.2 H Sodium Potassium Chloride Carbon Dioxide BUN Creatinine Glucose Calcium Magnesium Total Bilirubin AST ALT Alkaline Phosphatase Troponin I 0.86 H* - EKG Interpretation EKG results cardiology: other (Apparent BIV pacing) Consult Discharge Plan - Plan Referrals: Wale Lam DO [Primary Care Provider] -
[2017-12-10] MEDS: Fluconazole 100 MG/50 ML 100 MG/50 ML BAG IVPB SCH (11:39)
--- NOTE | 2017-12-10 14:05 | Nephrology Consult Note ---
Date of Encounter: 12/10/17 Time of Encounter: 12:00 Assessment and Plan (1) Acute kidney injury Current Visit: No Status: Acute Elevated SCr in the setting of likely sepsis from urinary source US of kidney and CT A/P results noted Continue gentle hydration if possible while monitoring cardiac fxn Avoid nephrotoxins if possible No acute indication yet fro ALUMINUM POLISHER at this point but will reassess regularly Will check uric acid and cpk levels Will check urine studies (2) CKD (chronic kidney disease) stage 4, GFR 15-29 ml/min Current Visit: No Status: Chronic Baseline GFR in the 20s (3) UTI (urinary tract infection) Current Visit: Yes Status: Acute Per primary team Qualifiers: Urinary tract infection type: site unspecified Hematuria presence: without hematuria Qualified Code(s): N39.0 - Urinary tract infection, site not specified (4) Elevated troponin Current Visit: Yes Status: Acute Per cardiology History of Present Illness - Reason for Consult Consult date: 12/10/17 Acute Kidney Injury, Chronic Kidney Disease Requesting physician: Wilfred Bunn - History of Present Illness 72 y o female with PMH of DM, HTN, CAD, CHF s/p BIV-ICD and stage 4 CKD s/p TENISHA on recent hospital st with SCr peaking at 5.43, GFR 8 improving to 2.75, GFR 17 on discharge now returning from [facility] with altered mental status within days of discharge. SCr noted at 3.48, GFR 13 on readmission worsening to 3.7, GFR 12 this am. Baseline typically in the 2.0s, GFR 20s.Elizondo shows milky yellow urine. Pt resting and minimally arousable with no family present at bedside. Past Med Surg Social Fam HX - Past Medical History Medical history: cardiomyopathy, CHF, coronary artery disease, CVA, diabetes, GERD, hyperlipidemia, hypertension, kidney stones, myocardial infarction, peripheral artery disease, renal disease, TIA Additional medical history: renal insufficiency, blood thinner Psychiatric history: depression, previous psychiatric hospitalization - Past Surgical History Surgical History: appendectomy, breast surgery, carotid endarterectomy, cholecystectomy, coronary bypass (CABG), hysterectomy, pacemaker/AICD, LE vascular intervention Additional surgical history: cyst removed in left breast, left chest pacer/AICD - Social History Smoking Status: Former smoker Smokeless Tobacco Status: No Alcohol use: none Drug use: none - Family History Mother Living Status: Hx Family Cardiac Disorders: Yes (HTN) Hx Family Endocrine Disorder: Yes (diabetes) Hx Family Neurologic Disorders: Yes (2 strokes) Father Living Status: Hx Family Cardiac Disorders: Yes Hx Family Respiratory Disorders: Yes Hx Family Neurologic Disorders: Yes Medications and Allergies Aspirin Enteric Coated [Aspirin EC] 81 mg PO DAILY 08/20/15 [History] Metoprolol XL (24 HR) Succ [Toprol Xl] 50 mg PO DAILY #30 tab.er.24h 01/07/16 [ Rx] Insulin Glargine,Hum.rec.anlog [Toujeo Solostar] 45 units SQ HS 06/10/16 [ History] Multivit-Minerals/Folic/Ginkgo [One Daily For Women 50+ Adv Tb] 1 tab PO DAILY 06/10/16 [History] Furosemide [Lasix] 40 mg PO QAM 10/03/16 [History] Insulin ASPART [Novolog Flexpen] 25 unit SQ TIDWM 10/03/16 [History] Clopidogrel [Plavix] 75 mg PO DAILY 11/03/17 [History] Oxybutynin Chloride [Ditropan Xl] 10 mg PO DAILY 11/03/17 [History] Rosuvastatin Calcium 10 mg PO HS 11/03/17 [History] Ascorbic Acid [Vitamin C] 500 mg PO BID 11/17/17 [History] Ergocalciferol (VITAMIN D2) [Vitamin D2] 50,000 unit PO QWEEK 11/17/17 [History] Dextromethorphan HBr/Quinidine [Nuedexta 20-10 mg Capsule] 1 each PO DAILY 30 Days #30 capsule 12/08/17 [Rx] Ferrous Sulfate 325 mg PO DAILY@0800 tablet 12/08/17 [Rx] LORazepam [Ativan] 1 mg PO TID 6 Days #18 tablet 12/08/17 [Rx] Miconazole 2% ointment [Aloe [place] Antifungal Ointment] 1 appl TP DAILY tube [Rx] amLODIPine [Norvasc] 10 mg PO DAILY tablet 12/08/17 [Rx] 3 Allergy/AdvReac Type Severity Reaction Status Date / Time venom-honey bee Allergy Severe Swelling Verified 11/03/17 10:53 [bee venom (honey bee)] of Lip/Tongue/Throat Cortisone Allergy Mild Hives Verified 11/03/17 10:53 Penicillins Allergy See Verified 11/03/17 10:53 Comments NSAIDS (Non-Steroidal AdvReac Mild UPSET Verified 11/03/17 10:53 Anti-Inflamma STOMACH cefazolin [From Ancef] AdvReac Hives Verified 11/03/17 10:53 Fnkhpcs-Nch-Jlj Reductase AdvReac Muscle Pain Verified 11/03/17 10:53 Inhibitor [Statins] GRAPE FLAVOR Allergy Mild Swelling Uncoded 11/03/17 10:53 of the Eye Review of Systems ROS unobtainable: due to mental status Exam - Vital Signs Vital signs: Initial Vital Signs Temp Pulse Resp BP Pulse Ox 102.2 F H 93 24 134/71 95 12/09/17 13:09 12/09/17 13:09 12/09/17 13:09 12/09/17 13:09 12/09/17 13:09 Vital Signs - Last 8 Hours Temp Pulse Resp BP Pulse Ox 12/10/17 11:55 103 12/10/17 09:30 97 96 12/10/17 07:07 99.7 F H 118 18 113/91 92 Intake and Output 12/09/17 12/10/17 12/10/17 23:59 07:59 15:59 Intake Total 350 / 350 151 / 151 1172 / 1172 Output Total 700 / 700 450 / 450 Balance -350 / -350 -299 / -299 1172 / 1172 Intake: IV Fluids 350 / 350 151 / 151 1172 / 1172 0.9 % Sodium Chloride 1,000 ML 886 / 886 @ 75 mls/hr IVC .[id number] [facility] Rx #:[id number] Heparin 25,000 UNIT/500 ML D5W 151 / 151 133 / 133 25,000 unit In 500 ml @ 9.8 UNIT/KG/HR 20.003 mls/hr IVC . Q24H [facility] Rx#:[id number] Definity 1.3 ML In Normal 3 / 3 Saline Flush 8.7 ML @ 1200 mls/ hr IVP ONCE ONE Rx#:[id number] Maxipime 2,000 MG In 0.9 % 100 / 100 Sodium Chloride (Mini-Bag +) 100 ML @ 200 mls/hr IVPB ONCE ONE Rx#:[id number] Diflucan 100 MG/50 ML 100 mg In 50 / 50 50 ml @ 50 mls/hr IVPB DAILY [facility] Rx#:[id number] Flagyl Premix 500 MG/100 ML 500 100 / 100 mg In 100 ml @ 100 mls/hr IVPB Q8HR [facility] Rx#:[id number] Vancocin 1,500 MG In 0.9 % 250 / 250 Sodium Chloride 250 ML @ 167 mls/hr IVPB ONCE ONE Rx#: [id number] Output: Catheter 700 / 700 450 / 450 Other: Meal NPO Percent of Meal Consumed 0% Stool Size Small Stool Consistency soft Weight 104.1 kg Blood Glucose* 195 283 278 Patient Weight 12/10/17 23:59 Weight 104.1 kg - General Appearance General appearance: chronically ill, fatigue EENT: ATNC, mucous membranes dry Neck: no JVD, supple Respiratory: clear (ant bilat) Cardiology: no edema, normal S1, normal S2 Gastrointestinal: no tenderness, no guarding Integumentary: warm and dry Neurologic: confused, disoriented Musculoskeletal: no deformities Psychiatric: cooperative Results - Lab Results 12/09/17 18:56 12/10/17 00:46 Most recent lab results Calcium 7.9 mg/dL (8.6-10.3) L 12/10/17 00:46 Phosphorus 2.1 mg/dL (2.7-4.5) L 12/10/17 00:46 Magnesium 1.8 mg/dL (1.6-2.6) 12/10/17 00:46 Consult Discharge Plan - Plan Instructions: BiPAP, French Professor (GEN) Referrals: Wale Lam DO [Primary Care Provider] -
[2017-12-10 16:07] LABS: Uric Acid 6.1 mg/dL (2.3-7.6)
[2017-12-10 16:31] LABS: Sodium, Urine 72.1 mEq/L
[2017-12-10] MEDS ORDERED: Ondansetron 4 MG/2 ML VIAL ONE (16:33)
[2017-12-10] MEDS: Ondansetron 4 MG/2 ML VIAL IVP PRN (16:37)
[2017-12-10] MEDS: Cefepime HCl 1,000 MG in Water for inj. (sterile) 20 ML 10 ML IVP SCH (17:53)
[2017-12-10 18:04] LABS: Acinetobacter baumannii by PCR Not Detected (Not Detect); Candida albicans by PCR Not Detected (Not Detect); Candida glabrata by PCR Not Detected (Not Detect); Candida krusei by PCR Not Detected (Not Detect); Candida parapsilosis by PCR Not Detected (Not Detect); Candida tropicalis by PCR Not Detected (Not Detect); Enterobacter cloacae Cmplx PCR Not Detected (Not Detect); Enterobacteriaceae by PCR Not Detected (Not Detect); Enterococcus by PCR Not Detected (Not Detect); Escherichia coli by PCR Not Detected (Not Detect); Klebsiella oxytoca by PCR Not Detected (Not Detect); Klebsiella pneumoniae by PCR Not Detected (Not Detect); Proteus by PCR Not Detected (Not Detect); Pseudomonas aeruginosa by PCR Not Detected (Not Detect); Serratia marcescens by PCR Not Detected (Not Detect); Staphylococcus aureus by PCR Not Detected (Not Detect); Staphylococcus by PCR DETECTED (Not Detect); Streptococcus agalactiae(B)PCR Not Detected (Not Detect); Streptococcus by PCR Not Detected (Not Detect); Streptococcus pneumoniae PCR Not Detected (Not Detect); Streptococcus pyogenes (A) PCR Not Detected (Not Detect); blaKPC Carbapenem-Resist Gene Not Detected (Not Detect); mecA Methicillin-Resist Gene DETECTED (Not Detect); vanA/B Vancomycin-Resist Genes Not Detected (Not Detect)
[2017-12-10] MEDS ORDERED: Vancomycin 1 EACH in 0.9 % Sodium Chloride 250 ML IVPB SCH (19:00)
[2017-12-10] MEDS: Heparin 25,000 UNIT/500 ML D5W 25,000 UNIT/500 ML BAG IVC SCH (20:55)
[2017-12-11] MEDS: MetroNIDAZOLE 500 MG/100 ML 500 MG/100 ML BAG IVPB SCH ×3 (00:25→16:38)
[2017-12-11] MEDS: Insulin LISPRO 300 UNITS/3 ML VIAL SQ SCH ×4 (00:26→16:42)
[2017-12-11] MEDS: D5% in 0.45% NACL 1,000 ML IVC SCH ×2 (00:28→12:30)
[2017-12-11 06:03] LABS: Basophils % 0.3 %; Eosinophils # 0.6 K/mcL (0.0-0.6); Hematocrit 26.7 % (35.3-44.9); Hemoglobin 7.9 g/dL (11.5-15.4); Immature Granulocytes % 0.6 % (0-4); Lymphocytes # 1.1 K/mcL (0.6-4.6); Mean Corpuscular HGB Conc 29.6 g/dL (31.6-35.5); Mean Corpuscular Hemoglobin 27.2 pg (28.0-33.3); Mean Corpuscular Volume 92.1 fL (83.0-100.0); Mean Platelet Volume 10.3 fL (9.4-12.4); Monocytes # 0.5 K/mcL (0.0-1.3); Monocytes % 4.4 %; Platelet Count 352 K/mcL (140-400); Segmented Neutrophils % 77.7 %
[2017-12-11 06:19] LABS: Magnesium 1.9 mg/dL (1.6-2.6); Potassium 3.8 mEq/L (3.5-5.1)
[2017-12-11] MEDS: Fluconazole 100 MG/50 ML 100 MG/50 ML BAG IVPB SCH (09:19)
[2017-12-11] MEDS ORDERED: Aminoglycoside Consult 1 EACH MC ONE (10:31)
--- NOTE | 2017-12-11 12:12 | Cardiology Progress Note ---
Date of Encounter: 12/11/17 Time of Encounter: 12:10 Assessment and Plan (1) NSTEMI (non-ST elevated myocardial infarction) Current Visit: Yes Status: Acute Elevated troponin in patient with known 3 vessel CAD s/p CABG. Known CMP. Also elevated in the setting of sepsis and DKA. Likely type II NM. Patient does not converstae, unable to assess symptoms. TTE shows LVEF 30%. Global and segmental LV systolic dysfunction. Mildly dilated left ventricle. Atypical septal motion consistent with post-operative status. Mild-moderate mitral regurgitation. Mild tricuspid regurgitation. [facility] 01/2016- Severe three vessel CAD, 2/2 patent bypass. EF unchanged from previous TTE in 2017. Continue heparin gtt for 48 hours. [place] ordered. She is not taking oral medications at this time. Consider BB and statin if able. (2) Biventricular ICD (implantable cardioverter-defibrillator) in place Current Visit: No Status: Chronic Appears to be functioning normally. (3) Cardiomyopathy Current Visit: No Status: Chronic H/o ICMP. EF unchanged this visit. Monitor closely while receiving IV fluid. No BB or aceI as she is not taking oral. Qualifiers: Qualified Code(s): I25.5 - Ischemic cardiomyopathy Discussion w patient/family: The assessment and plan as outlined above was discussed with the patient and/or family members who expressed understanding and agreement. All questions were answered. Thank you for involving us in the care of your patient. Please call with any questions. Subjective Principal diagnosis: NSTEMI Interval history: Ms. Bentley is awake on my exam. She is non-conversational. Unable to make decisions at this point. Objective Vital Signs, Last 4 Hours Temp Pulse Resp BP Pulse Ox 12/11/17 10:55 98.7 F 120 20 106/75 94 General: No Apparent Distress HEENT: Atraumatic, Normocephaly, Mucus Membranes Moist Neck: No JVD, Normal carotid pulses Cardiac: Reg Rate and Rhythm, Normal S1 and S2, No Murmur Lungs: Normal Breath Sounds, No Wheeze, Rales, Rhonchi Abdomen: Soft, Non-Tender Skin: Other (Redness in BLE noted) Musculoskeletal: No Chest Wall Tenderness Extremities: No Clubbing, No Cyanosis, Normal Pulses, Other (1+ edema. ) Results 12/11/17 05:40 12/11/17 05:40 Lab Results 12/11/17 12/11/17 05:40 05:40 WBC 10.3 Hgb 7.9 L Hct 26.7 L Plt Count 352 Sodium 140 Potassium 3.8 Chloride 106 Carbon Dioxide 26 BUN 56 H Creatinine 3.83 H Glucose 240 H Calcium 8.0 L Magnesium 1.9 - Imaging and Cardiology Echo: report reviewed Consult Discharge Plan - Plan Instructions: BiPAP, Culinary Specialist (GEN) Referrals: Wale Lam DO [Primary Care Provider] -
--- NOTE | 2017-12-11 12:32 | Internal Med Progress Note ---
Hospitalist Progress Note - Encounter Date of Encounter: 12/11/17 Time of Encounter: 12:30 - Subjective Interval History: Ms. Bentley is a 72 year old female with PMH of T2DM, HTN, HDL, catatonia, chronic systolic heart failure, CKD-3, recurrent UTI, and chronic psychiatry problems who had an extensive hospital stay here during her last hospitalization. Pt was admitted with sepsis, due to URI later she developed shock, acute respiratroy failure, got intubated and she also happened to have DVT for which she was started on Anti coag. pt developed hematuria so anti coag got d/cd and placed IVC filter. Pt mentation was never improved, she was always non verbal and severe cataonic apperance. pt was evaluated by psych who recommend ECT treatment. pt was d/c to ECF on 12/08/17. Now she was sent back to ER on with worsening AMS. She happened to have NSTEMI with Trop @ 2.16, UTI and TENISHA on CKD-3 with cr @ 3.48. She was admitted in the hospital and started her empirical abx Cefepime and also placed her on Heparin gtt. She is resting comfortably. Today she is more alert, awake and following all the commands.. Communicating verbally. Looks depressed, denied any suicidal ideation. When I asked about what would you like to eat , her response was " What difference does it make ? " - Exam Vitals: Temp Pulse Resp BP Pulse Ox 98.7 F 120 20 106/75 94 12/11/17 10:55 12/11/17 10:55 12/11/17 10:55 12/11/17 10:55 12/11/17 10:55 Exam: General - disscheveled, A, A, O to person, self, no distress Cardio - tacycardia, s1s2, regular rhythm, no murmurs lungs - Diminished BS b/l, no wheezing, no crackles, no rales abd - NTND, nno rebound or guarding, obese extremities - stage 1 pressure ulcers B/L heels, edema +.. No cellulites skin - venous stasis B/L LE Psych: Depressed, catatonic appearance - Assessment and Plan (1) Sepsis Current Visit: Yes Status: Acute Assessment and Plan: Meets sepsis criteria with elevated WBC, tachcyardia, and source of inf as UTI and ?? PNA cont empirical abx Cefepime and flagyl for anaerobic coverage Blood cx - 1/2 G+ve cocci - not Staph aureus mostly contaminated no need of Vancomycin d/c Vancomycin will repeat blood cx in AM (2) UTI (urinary tract infection) Current Visit: Yes Status: Acute Assessment and Plan: UA showed large leukocyte esterase, 30-50 RBC, TNTC WBC Pt was recently admitted for hematuria/sepsis 2/2 UTI and was tx with Vanc and Cefepime, as per ID Her Urine did grow Yolanda in the past so Cont Cefepime # 3 and Diflucan # 2 will f/u on Urine cx (3) Pneumonia Current Visit: No Status: Ruled-out Assessment and Plan: Reviewer chest x-ray and CT of abdomen and pelvis noticed infiltrates on the bilateral basal regions concerning for aspiration pneumonia continue Cefepime # 3 and Flagyl # 2 for anaerobic coverage (4) NSTEMI (non-ST elevated myocardial infarction) Current Visit: Yes Status: Acute Assessment and Plan: Most likely demand ischemia due to sepsis with UTI and a pneumonia continue heparin drip for 48 hours EKG did not show any acute ischemic changes ASA Also started on Lopressor IV cardiology consulted (5) Catatonia Current Visit: Yes Status: Acute Assessment and Plan: Pt is more verbal today.. following all the commands started her on diet will start her on Neudexta ( need to check with pharmacy for availability ) Talked to and updated him about current care she was evaluated by psychiatrist on her last hospitalization recommended to have psych inpatient tx and ECT I think she would get benefit with ECT treatment, will find out an in pt psych unit for her in AM Will consult psych once pt medically stable (6) Hypertension Current Visit: No Status: Chronic Assessment and Plan: BP stable with no meds cont close monitoring (7) Acute kidney injury superimposed on chronic kidney disease Current Visit: No Status: Acute Assessment and Plan: Worsening creatinine mostly due to dehydration and sepsis gave her 2 days IV hydration no improvement due to her systolic CHF with LVEF 30%, she looks volume overload already d/c IVF Will talk to Nephro about possible temporary HD on her retroperitoneal ultrasound - unremarkable appreciate floor runner recommendations (8) Type 2 diabetes mellitus Current Visit: No Status: Chronic Assessment and Plan: ISS - medium (9) Chronic systolic heart failure Current Visit: No Status: Chronic Assessment and Plan: Last ECHO was in 2017 LVEF at that time was 30% Not in acute exacerbation 2 D ECHO - showed LVEF 30% Holding diuretics for now due to worsening TENISHA (10) DVT prophylaxis Current Visit: No Status: Acute Assessment and Plan: heparin drip as per protocol (11) Obesity (BMI 30-39.9) Current Visit: No Status: Chronic Assessment and Plan: BMI is 39.9 - Time Spent with Patient Total time spent is greater than 50% in coordination of care (as documented) at patient's floor/unit and/or counseling patient: Internal Medicine: Result - Labs CBC & Chem 7: 12/11/17 05:40 12/11/17 05:40 Labs: Short CBC 12/11/17 Range/Units 05:40 WBC 10.3 (4.3-11.1) K/mcL Hgb 7.9 L (11.5-15.4) g/dL Hct 26.7 L (35.3-44.9) % Plt Count 352 (140-400) K/mcL Neutrophils # 8.0 (1.6-8.9) K/mcL BMP 12/11/17 05:40 Sodium 140 Potassium 3.8 Chloride 106 Carbon Dioxide 26 BUN 56 H Creatinine 3.83 H Glucose 240 H Calcium 8.0 L - ABG Interpretation ABG results: PT/INR, D-dimer PT 15.6 Seconds (9.4-12.1) H 12/10/17 02:55 Consult Discharge Plan - Plan Instructions: BiPAP, Logger (GEN) Referrals: Wale Lam DO [Primary Care Provider] - (1) Sepsis Qualifiers: Sepsis type: sepsis due to unspecified organism Qualified Code(s): A41.9 - Sepsis, unspecified organism (2) UTI (urinary tract infection) Qualifiers: Urinary tract infection type: site unspecified Hematuria presence: without hematuria Qualified Code(s): N39.0 - Urinary tract infection, site not specified (3) Pneumonia Qualifiers: Pneumonia type: due to unspecified organism Laterality: right Lung location : lower lobe of lung Qualified Code(s): J18.1 - Lobar pneumonia, unspecified organism (6) Hypertension Qualifiers: Hypertension type: essential hypertension Qualified Code(s): I10 - Essential (primary) hypertension (8) Type 2 diabetes mellitus Qualifiers: Diabetes mellitus residential insulin use: with meter mechanic use Diabetes mellitus complication status: with kidney complications Diabetes mellitus complication detail: with chronic kidney disease Chronic kidney disease stage: stage 4 (severe) Qualified Code(s): E11.22 - Type 2 diabetes mellitus with diabetic chronic kidney disease; N18.4 - Chronic kidney disease, stage 4 (severe ); Z79.4 - residential (current) use of insulin
--- NOTE | 2017-12-11 13:45 | Nephrology Progress Note ---
Date of Encounter: 12/11/17 Time of Encounter: 13:00 - Assessment and Plan (1) Acute kidney injury Current Visit: No Status: Acute SCr remains poor at 3.83, GFR 12, will continue IVF as po intake still poor Discussed with pt and daughter possible need for TERMINAL OPERATIONS MANAGER if in the next 1-2 days if no renal recovery Continue to avoid nephrotoxins if possible UOP was 700cc in the past 24hrs with urine more clear today Uric acid and CPK levels WNL Urine studies non contributory (2) CKD (chronic kidney disease) stage 4, GFR 15-29 ml/min Current Visit: No Status: Chronic Baseline GFR in the 20s (3) UTI (urinary tract infection) Current Visit: Yes Status: Acute Per primary team Qualifiers: Urinary tract infection type: site unspecified Hematuria presence: without hematuria Qualified Code(s): N39.0 - Urinary tract infection, site not specified (4) Elevated troponin Current Visit: Yes Status: Acute Per cardiology (5) Anemia Current Visit: No Status: Acute Hgb noted worse at 7.9, etiology unclear ?dilutional Transfusion parameters per primary team Qualifiers: Anemia type: unspecified type Qualified Code(s): D64.9 - Anemia, unspecified Subjective Principal diagnosis: NSTEMI Interval history: Pt seen and examined more awake today with daughter at bedside. Depressed affect noted. Objective - Vital Signs Vital signs: Vital Signs Temp Pulse Resp BP Pulse Ox 12/11/17 13:01 95 12/11/17 13:00 120 12/11/17 10:55 98.7 F 120 20 106/75 94 12/11/17 09:30 92 12/11/17 06:59 98.6 F 120 20 100/66 97 12/11/17 03:17 98.2 F 106 20 102/70 97 12/11/17 00:28 98.2 F 118 22 118/63 93 12/10/17 18:48 98.2 F 121 24 111/64 94 12/10/17 16:30 93 12/10/17 15:46 98.7 F 102 20 119/68 97 Intake and Output 12/10/17 12/11/17 12/11/17 23:59 07:59 15:59 Intake Total 395.6 / 395.6 1346 / 1346 315 / 315 Output Total 0 / 0 375 / 375 150 / 150 Balance 395.6 / 395.6 971 / 971 165 / 165 Intake: IV Fluids 395.6 / 395.6 1346 / 1346 315 / 315 D5% And 0.45% Nacl 1000 Ml Bag 1000 / 1000 1,000 ML @ 75 mls/hr IVC . [id number] [facility] Rx#:[id number] Heparin 25,000 UNIT/500 ML D5W 285.6 / 285.6 246 / 246 165 / 165 25,000 unit In 500 ml @ 9.8 UNIT/KG/HR 20.003 mls/hr IVC . Q24H [facility] Rx#:[id number] Maxipime 1,000 MG In Water for inj. (sterile) 10 ML @ 300 mls/ hr IVP QPM [facility] Rx#:[id number] Diflucan 100 MG/50 ML 100 mg In 50 / 50 50 ml @ 50 mls/hr IVPB DAILY [facility] Rx#:[id number] Flagyl Premix 500 MG/100 ML 500 100 / 100 100 / 100 100 / 100 mg In 100 ml @ 100 mls/hr IVPB Q8HR [facility] Rx#:[id number] Oral 0 / 0 0 / 0 0 / 0 Output: Catheter 0 / 0 375 / 375 150 / 150 Urethral (Elizondo) 0 / 0 0 / 0 Other: Meal NPO Percent of Meal Consumed 0% Stool Size Moderate Moderate Smear Stool Consistency loose soft soft Stool Characteristics Normal for Patient Stool Color Brown Brown Brown Green Green # Bowel Movement Diapers 1 1 Weight 105.2 kg Blood Glucose* 246 229 Patient Weight 12/11/17 23:59 Weight 105.2 kg - General Appearance General appearance: Present: chronically ill, fatigue EENT: Present: ATNC, mucous membranes dry Neck: Present: no JVD, supple Respiratory: Present: clear (ant bilat) Cardiology: Present: edema (trace LE edema bilat), normal S1, normal S2 Gastrointestinal: Present: no tenderness, no guarding Integumentary: Present: warm and dry Neurologic: Present: no focal deficit Musculoskeletal: Present: no deformities Psychiatric: Present: depressed - Lab 12/11/17 05:40 12/11/17 05:40 Most recent lab results Calcium 8.0 mg/dL (8.6-10.3) L 12/11/17 05:40 Phosphorus 2.1 mg/dL (2.7-4.5) L 12/10/17 00:46 Magnesium 1.9 mg/dL (1.6-2.6) 12/11/17 05:40 Urine Creatinine 79 mg/dL 12/10/17 15:45 Urine Sodium 72.1 mEq/L 12/10/17 15:45 Consult Discharge Plan - Plan Instructions: BiPAP, Blueprinting Machine Operator (GEN) Referrals: Wale Lam DO [Primary Care Provider] -
[2017-12-11] MEDS: *HR* Metoprolol 5 MG/5 ML VIAL IVP SCH ×2 (13:50→18:14)
[2017-12-11] MEDS: Heparin 25,000 UNIT/500 ML D5W 25,000 UNIT/500 ML BAG IVC SCH (16:39)
[2017-12-11] MEDS: Cefepime HCl 1,000 MG in Water for inj. (sterile) 20 ML 10 ML IVP SCH (18:14)
[2017-12-11] MEDS ORDERED: Insulin LISPRO 300 UNITS/3 ML VIAL SQ SCH (21:00)
[2017-12-11] MEDS: Ondansetron 4 MG/2 ML VIAL IVP PRN (22:13)
[2017-12-12] MEDS: *HR* Metoprolol 5 MG/5 ML VIAL IVP SCH ×3 (00:53→11:37)
[2017-12-12] MEDS: MetroNIDAZOLE 500 MG/100 ML 500 MG/100 ML BAG IVPB SCH ×3 (01:05→17:03)
[2017-12-12 06:42] LABS: Basophils % 0.5 %; Eosinophils # 0.4 K/mcL (0.0-0.6); Eosinophils % 5.3 %; Hematocrit 27.8 % (35.3-44.9); Hemoglobin 8.5 g/dL (11.5-15.4); Immature Granulocytes % 1.3 % (0-4); Lymphocytes # 1.2 K/mcL (0.6-4.6); Lymphocytes % 14.1 %; Mean Corpuscular HGB Conc 30.6 g/dL (31.6-35.5); Mean Corpuscular Hemoglobin 28.1 pg (28.0-33.3); Mean Corpuscular Volume 91.7 fL (83.0-100.0); Mean Platelet Volume 10.3 fL (9.4-12.4); Monocytes # 0.6 K/mcL (0.0-1.3); Monocytes % 7.1 %; Neutrophils # 5.8 K/mcL (1.6-8.9); Platelet Count 367 K/mcL (140-400); Red Blood Count 3.03 M/mcL (3.82-4.97); Red Cell Distribution Width 15.8 % (11.5-14.5); Segmented Neutrophils % 71.7 %
[2017-12-12 07:03] LABS: Calcium 8.1 mg/dL (8.6-10.3); Potassium 4.1 mEq/L (3.5-5.1)
[2017-12-12] MEDS: Insulin LISPRO 300 UNITS/3 ML VIAL SQ SCH ×3 (08:12→18:19)
[2017-12-12] MEDS: Fluconazole 100 MG/50 ML 100 MG/50 ML BAG IVPB SCH (08:21)
--- NOTE | 2017-12-12 09:31 | Internal Med Progress Note ---
<Anatoliy Ramirez S - Last Filed: 12/12/17 11:15> Hospitalist Progress Note - Encounter Date of Encounter: 12/12/17 Time of Encounter: 09:27 - Subjective Interval History: Pt is seen at the bedside. She was admitted on Tuesday for AMS from her [facility]. She was discharged the day before after being tx for sepsis 2/2 UTI and had to be intubated for acute respiratory failure. Pt later developed DVT and was put on anicoag, which was d/c'd secondary to hematuria. She was sent back and found to have an NSTEMI with troponin peak at 2.16 , UTI and TENISHA with CKD 3 The patient mentation is slightly better today, although she doesn't talk very much. She nods her head no when I ask if she is in pain or having SOB/abd pain. -she is resting comfortably today and appears to be in no distress Nursing reports that she is developing fungal infxn under skin folds, for which nystatin cream will be provided. She also continues to have hematuria and "milky " consistency to urine. - Exam Vitals: Temp Pulse Resp BP Pulse Ox 98.5 F 117 19 119/66 94 12/12/17 07:15 12/12/17 07:15 12/12/17 07:15 12/12/17 07:15 12/12/17 08:54 Exam: General - disscheveled, oriented to place and person Cardio - tacycardia, s1s2, regular rhythm, no murmurs lungs - Diminished BS b/l, no wheezing, no crackles, no rales abd - NTND, no rebound or guarding, obese extremities - stage 1 pressure ulcers B/L heels, edema +.. No cellulites skin - venous stasis B/L LE Psych: Depressed, catatonic appearance - Assessment and Plan (1) Sepsis Current Visit: Yes Status: Acute Assessment and Plan: Does not currently meet sepsis criteria -HR 117 -RR 19, BP stable -WBC 8.2 Blood cx grew s epidermidis, most likely a contaminate Plan: -continue Cefepime day 4, flagl day 3 -vancomycin discontinued 12/10/17 -repeat blood cx pending -montior CBC (2) NSTEMI (non-ST elevated myocardial infarction) Current Visit: Yes Status: Acute Assessment and Plan: Most likely demand ischemia type II -2/2 sepsis with UTI/pneumonia EKG negative for acute ischemic changes, ST elevation Plan: -d/c heparin drip -ASA - Lopressor IVP -continue rouvastatin -cardiology consulted (3) DVT prophylaxis Current Visit: No Status: Acute Assessment and Plan: 5000u SQ heparin, d/c heparin drip (4) Acute kidney injury superimposed on chronic kidney disease Current Visit: Yes Status: Acute Assessment and Plan: Creatinine on admission was 3.48 (12/09/17) -12/11/17: 3.83 ----> 12/12/17 creatinine 3.76 -baseline creatinine < 3 Patient was given IV fluids for 2 days with minimal improvement -pt also has CHF with LVEF 30% and has some volume overload Retroperitoneal US was unremarkable Plan: -worsening renal fxn most likely 2/2 sepsis -nephro consulted, possible temporary HD if no improvement -hold nephrotoxic agents -monitor CMP (5) Hypertension Current Visit: No Status: Chronic Assessment and Plan: BP 119/66 -adequate control -not currently on HTN rx (6) Type 2 diabetes mellitus Current Visit: No Status: Chronic Assessment and Plan: Will change ISS to high dose -glucose this AM 266, difficult to control (7) Chronic systolic heart failure Current Visit: No Status: Chronic Assessment and Plan: Last ECHO was in 2017 -LVEF at that time was 30% -Not in acute exacerbation 2 D ECHO - showed LVEF 30% 12/12/17 I&O's -I: 2100mL -O: 800mL -Balance: 1310 mL Plan: -diuretics held 2/2 TENISHA -strict I&O's (8) Pneumonia Current Visit: No Status: Ruled-out Assessment and Plan: CXR/CT was concerning for infiltrates on B/L basal regions -?aspiration pneumonia Blood cx grew s epidermidis Plan: -continue cefepime day 4 for psuedomonas/gram(+) and flagyl day 3 for anaerobic coverage -puree diet for now to avoid aspiration (9) UTI (urinary tract infection) Current Visit: Yes Status: Acute Assessment and Plan: UA showed large leukocyte esterase, 30-50 RBC, TNTC WBC Pt was recently admitted for hematuria/sepsis 2/2 UTI and was tx with Vanc and Cefepime, as per ID -has had shonna in the past in urine -still has hematuria and "milky" consistency of urine Plan: - Cefepime day 4 and Diflucan 3 -urine cx pending (10) Obesity (BMI 30-39.9) Current Visit: No Status: Chronic Assessment and Plan: BMI is 41.6 (11) Catatonia Current Visit: Yes Status: Acute Assessment and Plan: Pt more interactive today Plan: -Nudexta started -puree diet, tolerating -psych consult for ECT and inpt psych treatment (12) Shonna infection Current Visit: Yes Status: Acute Assessment and Plan: Pt has shonna in the mouth and under skin folds -nystatin swish and spit -topical nystatin for skin folds (13) Chronic anemia Current Visit: No Status: Chronic Assessment and Plan: Hemoglobin today 8.5 -On admission 9.0, HD 3 7.9 -stable H&H -MCV 91 -prealbumin 10.6 -most likely nutritional deficiency in nature and chronic dz -check iron profile - Time Spent with Patient Total time spent is greater than 50% in coordination of care (as documented) at patient's floor/unit and/or counseling patient: less than 15 minutes Plan of Care Discussed with: patient Internal Medicine: Result - Labs CBC & Chem 7: 12/12/17 06:29 12/12/17 06:29 Labs: Short CBC 12/12/17 Range/Units 06:29 WBC 8.2 (4.3-11.1) K/mcL Hgb 8.5 L (11.5-15.4) g/dL Hct 27.8 L (35.3-44.9) % Plt Count 367 (140-400) K/mcL Neutrophils # 5.8 (1.6-8.9) K/mcL BMP 12/12/17 06:29 Sodium 135 L Potassium 4.1 Chloride 103 Carbon Dioxide 22 L BUN 52 H Creatinine 3.76 H Glucose 266 H Calcium 8.1 L - ABG Interpretation ABG results: PT/INR, D-dimer PT 15.6 Seconds (9.4-12.1) H 12/10/17 02:55 Consult Discharge Plan - Plan Instructions: BiPAP, Geospatial Intelligence Analyst (GEN) Referrals: Wale Lam DO [Primary Care Provider] - 12/21/17 1:30 pm <Wilfred Bunn - Last Filed: 12/12/17 18:02> Hospitalist Progress Note - Encounter Date of Encounter: 12/12/17 - Exam Vitals: Temp Pulse Resp BP Pulse Ox 98.3 F 117 18 132/92 94 12/12/17 16:15 12/12/17 16:15 12/12/17 16:15 12/12/17 16:15 12/12/17 16:15 - Assessment and Plan (1) DVT prophylaxis Current Visit: No Status: Acute (2) Acute kidney injury superimposed on chronic kidney disease Current Visit: Yes Status: Acute (3) Hypertension Current Visit: No Status: Chronic (4) Type 2 diabetes mellitus Current Visit: No Status: Chronic (5) Chronic systolic heart failure Current Visit: No Status: Chronic (6) Pneumonia Current Visit: No Status: Ruled-out (7) Sepsis Current Visit: Yes Status: Acute (8) UTI (urinary tract infection) Current Visit: Yes Status: Acute (9) Obesity (BMI 30-39.9) Current Visit: No Status: Chronic (10) NSTEMI (non-ST elevated myocardial infarction) Current Visit: Yes Status: Acute (11) Catatonia Current Visit: Yes Status: Acute (12) Shonna infection Current Visit: Yes Status: Acute (13) Chronic anemia Current Visit: No Status: Chronic - Time Spent with Patient Total time spent is greater than 50% in coordination of care (as documented) at patient's floor/unit and/or counseling patient: Internal Medicine: Result - Labs CBC & Chem 7: 12/12/17 06:29 12/12/17 06:29 Labs: Short CBC 12/12/17 Range/Units 06:29 WBC 8.2 (4.3-11.1) K/mcL Hgb 8.5 L (11.5-15.4) g/dL Hct 27.8 L (35.3-44.9) % Plt Count 367 (140-400) K/mcL Neutrophils # 5.8 (1.6-8.9) K/mcL BMP 12/12/17 06:29 Sodium 135 L Potassium 4.1 Chloride 103 Carbon Dioxide 22 L BUN 52 H Creatinine 3.76 H Glucose 266 H Calcium 8.1 L - ABG Interpretation ABG results: PT/INR, D-dimer PT 15.6 Seconds (9.4-12.1) H 12/10/17 02:55 - Impressions Impressions Chest X-Ray 12/12/17 11:50 IMPRESSION: Cardiomegaly with pulmonary vascular congestion as well as diffuse interstitial pulmonary edema. Small bilateral effusions. D/ / Damir Miranda MD / Damir Miranda MD Interpreting Provider: Damir Miranda MD - Attending Attestation I examined this patient and my medical decision-making was reviewed with the Resident Physician Dr. Ramirez. I agree with the documented findings, disposition and treatment plan as described except to the extent set forth below. Ms. Bentley is a 72 year old female with PMH of T2DM, HTN, HDL, catatonia, chronic systolic heart failure, CKD-3, recurrent UTI, and chronic psychiatry problems who had an extensive hospital stay here during her last hospitalization. Pt was admitted with sepsis, due to URI later she developed shock, acute respiratroy failure, got intubated and she also happened to have DVT for which she was started on Anti coag. pt developed hematuria so anti coag got d/cd and placed IVC filter. Pt mentation was never improved, she was always non verbal and severe cataonic apperance. pt was evaluated by psych who recommend ECT treatment. pt was d/c to [facility] on 12/08/17. Now she was sent back to ER on with worsening AMS. She happened to have NSTEMI with Trop @ 2.16, UTI and TENISHA on CKD-3 with cr @ 3.48. She was admitted in the hospital and started her empirical abx Cefepime and also placed her on Heparin gtt. She is resting comfortably. Today she is more alert, awake and following all the commands.. Communicating verbally. Looks depressed, denied any suicidal ideation. Gen: A, A, O to self Chest: Diminished BS b/l , No wheezing Heart: S1S2+ Tachy, No murmurs 1. Sepsis with UTI h/o Shonna in the past cont empirical abx Cefepime + Diflucan 2. Acute PNA - aspiration cont Cefepime + Flagyl 3. NSTEMI finished 48hrs anti coag cont ASA IV lopressor 4. TENISHA with CKD-3 worsening Cr may need HD Nephro on board <Anatoliy Ramirez - Last Filed: 12/12/17 11:15> (1) Sepsis Qualifiers: Sepsis type: sepsis due to unspecified organism Qualified Code(s): A41.9 - Sepsis, unspecified organism (5) Hypertension Qualifiers: Hypertension type: essential hypertension Qualified Code(s): I10 - Essential (primary) hypertension (6) Type 2 diabetes mellitus Qualifiers: Diabetes mellitus rural sociologist insulin use: with fci use Diabetes mellitus complication status: with kidney complications Diabetes mellitus complication detail: with chronic kidney disease Chronic kidney disease stage: stage 4 (severe) Qualified Code(s): E11.22 - Type 2 diabetes mellitus with diabetic chronic kidney disease; N18.4 - Chronic kidney disease, stage 4 (severe ); Z79.4 - associate media planner (current) use of insulin (8) Pneumonia Qualifiers: Pneumonia type: due to unspecified organism Laterality: right Lung location : lower lobe of lung Qualified Code(s): J18.1 - Lobar pneumonia, unspecified organism (9) UTI (urinary tract infection) Qualifiers: Urinary tract infection type: site unspecified Hematuria presence: without hematuria Qualified Code(s): N39.0 - Urinary tract infection, site not specified <Wilfred Bunn - Last Filed: 12/12/17 18:02> (3) Hypertension Qualifiers: Hypertension type: essential hypertension Qualified Code(s): I10 - Essential (primary) hypertension (4) Type 2 diabetes mellitus Qualifiers: Diabetes mellitus fci insulin use: with fci use Diabetes mellitus complication status: with kidney complications Diabetes mellitus complication detail: with chronic kidney disease Chronic kidney disease stage: stage 4 (severe) Qualified Code(s): E11.22 - Type 2 diabetes mellitus with diabetic chronic kidney disease; N18.4 - Chronic kidney disease, stage 4 (severe ); Z79.4 - associate media planner (current) use of insulin (6) Pneumonia Qualifiers: Pneumonia type: due to unspecified organism Laterality: right Lung location : lower lobe of lung Qualified Code(s): J18.1 - Lobar pneumonia, unspecified organism (7) Sepsis Qualifiers: Sepsis type: sepsis due to unspecified organism Qualified Code(s): A41.9 - Sepsis, unspecified organism (8) UTI (urinary tract infection) Qualifiers: Urinary tract infection type: site unspecified Hematuria presence: without hematuria Qualified Code(s): N39.0 - Urinary tract infection, site not specified
[2017-12-12] MEDS ORDERED: Insulin LISPRO 300 UNITS/3 ML VIAL SQ SCH (10:12)
[2017-12-12] MEDS: Nystatin POWDER 30 GM BOTTLE TP SCH ×2 (11:36→22:25)
[2017-12-12] MEDS: Nystatin Cream 15 GM TUBE TP SCH ×2 (11:37→22:26)
[2017-12-12] MEDS: Nystatin SUSP 5 ML UD.LIQ PO SCH ×4 (11:37→22:24)
[2017-12-12] MEDS: *HR* Heparin 5,000 UNIT/ML VIAL SQ SCH ×2 (11:37→17:35)
[2017-12-12] MEDS ORDERED: Levalbuterol Neb 0.63 MG/3 ML IH PRN (11:53)
[2017-12-12] MEDS ORDERED: Ringers Solution, Lactated 1,000 ML IVC SCH (12:00)
[2017-12-12 13:03] LABS: Enterococcus by PCR Not Detected (Not Detect); Staphylococcus aureus by PCR Not Detected (Not Detect); Staphylococcus by PCR Not Detected (Not Detect); Streptococcus agalactiae(B)PCR Not Detected (Not Detect); Streptococcus by PCR Not Detected (Not Detect); blaKPC Carbapenem-Resist Gene Not Detected (Not Detect); mecA Methicillin-Resist Gene Not Detected (Not Detect); vanA/B Vancomycin-Resist Genes Not Detected (Not Detect)
[2017-12-12 13:04] LABS: Acinetobacter baumannii by PCR Not Detected (Not Detect); Candida albicans by PCR Not Detected (Not Detect); Candida glabrata by PCR Not Detected (Not Detect); Candida krusei by PCR Not Detected (Not Detect); Candida parapsilosis by PCR Not Detected (Not Detect); Candida tropicalis by PCR Not Detected (Not Detect); Enterobacter cloacae Cmplx PCR Not Detected (Not Detect); Enterobacteriaceae by PCR Not Detected (Not Detect); Escherichia coli by PCR Not Detected (Not Detect); Klebsiella oxytoca by PCR Not Detected (Not Detect); Klebsiella pneumoniae by PCR Not Detected (Not Detect); Proteus by PCR Not Detected (Not Detect); Pseudomonas aeruginosa by PCR Not Detected (Not Detect); Serratia marcescens by PCR Not Detected (Not Detect); Streptococcus pneumoniae PCR Not Detected (Not Detect); Streptococcus pyogenes (A) PCR Not Detected (Not Detect)
--- NOTE | 2017-12-12 14:13 | Nephrology Progress Note ---
Date of Encounter: 12/12/17 Time of Encounter: 11:30 - Assessment and Plan (1) Acute kidney injury superimposed on chronic kidney disease Current Visit: Yes Status: Acute Acute kidney injury on CKD stage IV, baseline GFR in the 20 Serum creatinine remained poor this morning, however did improve to 3.76 from yesterday. GFR remained 12. Per the patient's chart, there appears to be approximately 1100 mL urine per Elizondo yesterday, and approximately 1200 today Although the patient has not shown significant improvement, there is still no acute indication for hemodialysis at this time Recommend continuing fluids, however transitioned from D5 half-normal saline to lactated Ringer's to avoid hyperglycemia We will continue to monitor, check for possible indications in the morning Recommend avoidance of nephrotoxins at this time as possible (2) UTI (urinary tract infection) Current Visit: Yes Status: Acute Urine demonstrates he species on culture Management per primary team Qualifiers: Urinary tract infection type: site unspecified Hematuria presence: without hematuria Qualified Code(s): N39.0 - Urinary tract infection, site not specified (3) Elevated troponin Current Visit: Yes Status: Acute Management per cardiology (4) Dyspnea and respiratory abnormality Current Visit: Yes Status: Acute Patient is dyspneic and wheezing on examination Does not appear to have significant crackles or rales on examination Do not suspect that this is due to significant volume overload, however chest x- ray is indicated at this time We will also give the patient Xopenex as needed for wheezing and dyspnea (5) Anemia Current Visit: No Status: Acute Patient has significant anemia, however improving hemoglobin 8.5 Transfusion parameters per primary team Qualifiers: Anemia type: unspecified type Qualified Code(s): D64.9 - Anemia, unspecified Subjective Principal diagnosis: NSTEMI Interval history: The patient is resting in bed at time of examination. She does not vocalize to me, and instead I communicated primarily with her who is at bedside. There is been no acute change overnight. The patient's does mention that he feels that she is breathing more heavily than she was previously. Objective - Vital Signs Vital signs: Vital Signs Temp Pulse Resp BP Pulse Ox 12/12/17 11:48 112 12/12/17 11:25 98.3 F 118 20 130/97 95 12/12/17 08:54 94 12/12/17 07:15 98.5 F 117 19 119/66 95 12/12/17 03:47 98.5 F 119 20 132/87 95 12/11/17 23:45 98.7 F 119 22 122/72 96 12/11/17 20:45 85 12/11/17 19:35 97.6 F 94 20 101/70 97 12/11/17 18:00 108 113/65 12/11/17 16:24 98.7 F 120 20 113/65 95 12/11/17 14:15 121 Intake and Output 12/11/17 12/12/17 12/12/17 23:59 07:59 15:59 Intake Total 588.3 / 588.3 1110 / 1110 950 / 950 Output Total 100 / 100 700 / 700 390 / 390 Balance 488.3 / 488.3 410 / 410 560 / 560 Intake: IV Fluids 148.3 / 148.3 1110 / 1110 950 / 950 0.45% Sodium Chloride 1000 Ml 1000 / 1000 300 / 300 1000 Ml 1,000 ML @ 75 mls/hr IVC .[id number] [facility] Rx#:[id number] Heparin 25,000 UNIT/500 ML D5W 48.3 / 48.3 500 / 500 25,000 unit In 500 ml @ 9.8 UNIT/KG/HR 20.003 mls/hr IVC . Q24H [facility]AN Rx#:[id number] Maxipime 1,000 MG In Water for inj. (sterile) 10 ML @ 300 mls/ hr IVP QPM [facility]AN Rx#:[id number] Diflucan 100 MG/50 ML 100 mg In 50 / 50 50 ml @ 50 mls/hr IVPB DAILY [facility]AN Rx#:[id number] Flagyl Premix 500 MG/100 ML 500 100 / 100 100 / 100 100 / 100 mg In 100 ml @ 100 mls/hr IVPB Q8HR [facility]AN Rx#:[id number] Oral 440 / 440 Output: Catheter 100 / 100 700 / 700 390 / 390 Urethral (Elizondo) 50 / 50 100 / 100 110 / 110 Other: Meal Lunch Lunch Percent of Meal Consumed 100% 10% Stool Size Smear Moderate Stool Consistency soft Stool Characteristics Normal for Patient Stool Color Brown Brown Weight 106.4 kg Blood Glucose* 255 280 251 Patient Weight 12/12/17 23:59 Weight 106.4 kg - General Appearance Exam: General appearance: Present: chronically ill, fatigue EENT: Present: ATNC, mucous membranes dry Neck: Present: no JVD, supple Respiratory: Present: clear (ant bilat) Cardiology: Present: edema (trace LE edema bilat), normal S1, normal S2 Gastrointestinal: Present: no tenderness, no guarding Integumentary: Present: warm and dry Neurologic: Present: no focal deficit, patient does not speak Musculoskeletal: Present: no deformities Psychiatric: Present: depressed - Lab 12/12/17 06:29 12/12/17 06:29 Most recent lab results Calcium 8.1 mg/dL (8.6-10.3) L 12/12/17 06:29 Phosphorus 2.1 mg/dL (2.7-4.5) L 12/10/17 00:46 Magnesium 1.9 mg/dL (1.6-2.6) 12/11/17 05:40 Urine Creatinine 79 mg/dL 12/10/17 15:45 Urine Sodium 72.1 mEq/L 12/10/17 15:45 - VTE Documentation of Mechanical Device: Intermittent pneumatic compression device Consult Discharge Plan - Plan Instructions: BiPAP, Deaf And Hard Of Hearing Teacher (GEN) Referrals: Wale Lam DO [Primary Care Provider] - 12/21/17 1:30 pm
--- NOTE | 2017-12-12 14:44 | Cardiology Progress Note ---
Date of Encounter: 12/12/17 Time of Encounter: 14:00 Assessment and Plan (1) NSTEMI (non-ST elevated myocardial infarction) Current Visit: Yes Status: Acute Elevated troponin in the setting of sepsis secondary to UTI and PNA, DKA. Type II OH. Patient with known 3 vessel CAD s/p CABG, and CMP. Patient denies chest pain. Noted some SOB. TTE shows LVEF 30%. Global and segmental LV systolic dysfunction. Mildly dilated left ventricle. Atypical septal motion consistent with post-operative status. Mild-moderate mitral regurgitation. Mild tricuspid regurgitation. [facility] 01/2016- Severe three vessel CAD, 2/2 patent bypass. EF unchanged from previous TTE in 2017. Continue heparin gtt for 48 hours. Convert asa to oral, start bb, on statin. We will interrogate PPM. Otherwise no further testing from cardiac standpoint. (2) Biventricular ICD (implantable cardioverter-defibrillator) in place Current Visit: No Status: Chronic BiV ICD in place. Seen to have tachycardia in the setting of sepsis, bb also held due to NPO status. Restart toprol XL. Will due device check during her stay to r/o afib, ventricular paced HR 113. (3) Cardiomyopathy Current Visit: No Status: Chronic H/o ICMP. EF unchanged this visit. Monitor closely while receiving IV fluid for TENISHA. Restart bb. No ACi due to kidney dysfunction. Qualifiers: Cardiomyopathy type: ischemic Qualified Code(s): I25.5 - Ischemic cardiomyopathy Discussion w patient/family: The assessment and plan as outlined above was discussed with the patient and/or family members who expressed understanding and agreement. All questions were answered. Thank you for involving us in the care of your patient. Please call with any questions. Subjective Principal diagnosis: NSTEMI Interval history: Ms. Bentley is awake on my exam. She shakes head yes and no and is able to give short responses at times. Denies chest pain or SOB. Son at bedside. Objective Vital Signs, Last 4 Hours Temp Pulse Resp BP Pulse Ox 12/12/17 11:48 112 12/12/17 11:25 98.3 F 118 20 130/97 95 General: No Apparent Distress HEENT: Atraumatic, Normocephaly, Mucus Membranes Moist Neck: No JVD, Normal carotid pulses Cardiac: Other (Irregular) Lungs: Normal Breath Sounds, No Wheeze, Rales, Rhonchi Neuro: No focal deficits noted, Other (alert, unable to assess orientation) Abdomen: Soft, Non-Tender Skin: Other (Redness noted in BLE) Musculoskeletal: No Chest Wall Tenderness Extremities: No Clubbing, No Cyanosis, No Edema, Normal Pulses Results 12/12/17 06:29 12/12/17 06:29 Lab Results 12/12/17 12/12/17 06:29 06:29 WBC 8.2 Hgb 8.5 L Hct 27.8 L Plt Count 367 Sodium 135 L Potassium 4.1 Chloride 103 Carbon Dioxide 22 L BUN 52 H Creatinine 3.76 H Glucose 266 H Calcium 8.1 L - Imaging and Cardiology Echo: report reviewed - EKG Interpretation EKG results cardiology: personally reviewed - VTE Documentation of Mechanical Device: Intermittent pneumatic compression device Consult Discharge Plan - Plan Instructions: BiPAP, Vacation Guide (GEN) Referrals: Wale Lam DO [Primary Care Provider] - 12/21/17 1:30 pm
[2017-12-12] MEDS ORDERED: Furosemide 40 MG TABLET PO SCH (15:15)
[2017-12-12] MEDS ORDERED: Furosemide 20 MG/2 ML VIAL IVP ONE ×2 (15:37→18:13)
[2017-12-12] MEDS ORDERED: *HR* Metoprolol 5 MG/5 ML VIAL IVP PRN (15:51)
[2017-12-12] MEDS: MICONAZOLE NITRATE 57 GM TUBE TP SCH ×2 (17:02→22:25)
[2017-12-12] MEDS: Metoprolol XL (24 HR) Succ 25 MG TAB.ER.24H PO SCH (17:03)
[2017-12-12] MEDS: Cefepime HCl 1,000 MG in Water for inj. (sterile) 20 ML 10 ML IVP SCH (17:35)
--- NOTE | 2017-12-12 18:15 | Consult Note ---
Date of Encounter: 12/12/17 Time of Encounter: 17:15 Assessment & Recommendation (1) Catatonic disorder due to known physiological condition Current visit: No Status: Acute (2) Nonverbal Current visit: No Status: Suspected (3) Catatonia Current visit: Yes Status: Acute History of Present Illness Patient: known to practice within the last 3 years Requesting Physician: Rosalio Briceno MD Reason for consult: psychosis History of present illness: Ms. Bentley is a 72 year old female The patient was seen with her . During this time he made a phone call to the daughter. Chief complaint : She is talking more than she used to. She is talked about savanna Reich. History of present illness: This patient has been previously seen by me and has been seen by my colleague. Both of us have diagnosed catatonia. It is not possible for us to determine whether it is due to frontal lobe dysfunction or primary psychiatric disorder. 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 Meanwhile there is been a history of depression and some worsening associated with the course of the illness and recent deaths in the patient's extended family. In my assessment 2 weeks ago my colleagues assessment 1 week ago we found catatonic stupor. Diminished responsiveness diminished blank staring ideomotor apraxia psychomotor slowing able to tendency decreased muscle tone and decreased self-care. Previously recommended hospitalization in a [facility] psych unit but the patient's family declined as they like the F and follow-up. Previously recommended electroconvulsive therapy but the patient's and daughter did not want to consider this option. Previously I recommended lorazepam and while I thought it was well tolerated and was not sure of the response. Therefore we should begin empirically I discussed several treatment options but after review of the medical treatment and recommend Ativan 0.5 mg by mouth 3 times a day and memantine 5 mg 2 at bedtime. I have had the order placed in so that I can monitor the response. I do not think psychiatric hospitalization is necessary at this time at this point we should watch for sedation and coordination to medical compromise as lorazepam could suppress respirations. I plan to follow with you CC: Rosalio Briceno MD Past Med Surg Social Fam HX - Past Medical History Medical history: cardiomyopathy, CHF, coronary artery disease, CVA, diabetes, GERD, hyperlipidemia, hypertension, kidney stones, myocardial infarction, peripheral artery disease, renal disease, TIA - Past Surgical History Surgical History: appendectomy, breast surgery, carotid endarterectomy, cholecystectomy, coronary bypass (CABG), hysterectomy, pacemaker/AICD, LE vascular intervention - Social History Smoking Status: Former smoker Smokeless Tobacco Status: No Alcohol use: none Drug use: none - Family History Mother Living Status: Hx Family Cardiac Disorders: Yes (HTN) Hx Family Endocrine Disorder: Yes (diabetes) Hx Family Neurologic Disorders: Yes (2 strokes) Father Living Status: Hx Family Cardiac Disorders: Yes Hx Family Respiratory Disorders: Yes Hx Family Neurologic Disorders: Yes Medications & Allergies Aspirin Enteric Coated [Aspirin EC] 81 mg PO DAILY 08/20/15 [History] Metoprolol XL (24 HR) Succ [Toprol Xl] 50 mg PO DAILY #30 tab.er.24h 01/07/16 [ Rx] Insulin Glargine,Hum.rec.anlog [Toujeo Solostar] 45 units SQ HS 06/10/16 [ History] Multivit-Minerals/Folic/Ginkgo [One Daily For Women 50+ Adv Tb] 1 tab PO DAILY 06/10/16 [History] Furosemide [Lasix] 40 mg PO QAM 10/03/16 [History] Insulin ASPART [Novolog Flexpen] 25 unit SQ TIDWM 10/03/16 [History] Clopidogrel [Plavix] 75 mg PO DAILY 11/03/17 [History] Oxybutynin Chloride [Ditropan Xl] 10 mg PO DAILY 11/03/17 [History] Rosuvastatin Calcium 10 mg PO HS 11/03/17 [History] Ascorbic Acid [Vitamin C] 500 mg PO BID 11/17/17 [History] Ergocalciferol (VITAMIN D2) [Vitamin D2] 50,000 unit PO QWEEK 11/17/17 [History] Dextromethorphan HBr/Quinidine [Nuedexta 20-10 mg Capsule] 1 each PO DAILY 30 Days #30 capsule 12/08/17 [Rx] Ferrous Sulfate 325 mg PO DAILY@0800 tablet 12/08/17 [Rx] LORazepam [Ativan] 1 mg PO TID 6 Days #18 tablet 12/08/17 [Rx] Miconazole 2% ointment [Aloe [place] Antifungal Ointment] 1 appl TP DAILY tube [Rx] amLODIPine [Norvasc] 10 mg PO DAILY tablet 12/08/17 [Rx] 3 Allergy/AdvReac Type Severity Reaction Status Date / Time venom-honey bee Allergy Severe Swelling Verified 11/03/17 10:53 [bee venom (honey bee)] of Lip/Tongue/Throat Cortisone Allergy Mild Hives Verified 11/03/17 10:53 Penicillins Allergy See Verified 11/03/17 10:53 Comments NSAIDS (Non-Steroidal AdvReac Mild UPSET Verified 11/03/17 10:53 Anti-Inflamma STOMACH cefazolin [From Ancef] AdvReac Hives Verified 11/03/17 10:53 Khncrfn-Ggy-Gza Reductase AdvReac Muscle Pain Verified 11/03/17 10:53 Inhibitor [Statins] GRAPE FLAVOR Allergy Mild Swelling Uncoded 11/03/17 10:53 of the Eye Review of Systems Psychiatric: Reports: depression Psychiatry Exam - Constitutional Vitals: Temp Pulse Resp BP Pulse Ox 98.3 F 117 18 132/92 94 12/12/17 16:15 12/12/17 16:15 12/12/17 16:15 12/12/17 16:15 12/12/17 16:15 General appearance: age & developmentally appropriate, obese - Musculoskeletal Strength & Tone: flaccid - Psychiatric Patient Orientation: Yes Person Level of alertness: Follows commands Psychomotor activity: Catatonic Eye Contact: Infrequent Blinking Mood Description: Depressed Speech pattern: impoverished, non-verbal Language & Vocabulary: consistent with education Thought Process: Logical Thought Content: Yes Poverty of Content Attention Span Ability: Unable to Sustain Attention Patient Reliability: Not Reliable Historian Judgment: Limited Insight: Minimal Results - Labs Labs: Laboratory Last Values WBC 8.2 K/mcL (4.3-11.1) 12/12/17 06:29 RBC 3.03 M/mcL (3.82-4.97) L 12/12/17 06:29 Hgb 8.5 g/dL (11.5-15.4) L 12/12/17 06:29 Hct 27.8 % (35.3-44.9) L 12/12/17 06:29 MCV 91.7 fL (83.0-100.0) 12/12/17 06:29 MCH 28.1 pg (28.0-33.3) 12/12/17 06: MCHC 30.6 g/dL (31.6-35.5) L 12/12/17 06: RDW 15.8 % (11.5-14.5) H 12/12/17 06:29 Plt Count 367 K/mcL (140-400) 12/12/17 06:29 MPV 10.3 fL (9.4-12.4) 12/12/17 06: Immature Gran % 1.3 % (0-4) 12/12/17 06: Seg Neutrophils % 71.7 % 12/12/17 06: Lymphocytes % 14.1 % 12/12/17 06: Monocytes % 7.1 % 12/12/17 06: Eosinophils % 5.3 % 12/12/17 06: Basophils % 0.5 % 12/12/17 06: Neutrophils # 5.8 K/mcL (1.6-8.9) 12/12/17 06: Lymphocytes # 1.2 K/mcL (0.6-4.6) 12/12/17 06:29 Monocytes # 0.6 K/mcL (0.0-1.3) 12/12/17 06: Eosinophils # 0.4 K/mcL (0.0-0.6) 12/12/17 06: Basophils # 0.0 K/mcL (0.0-0.2) 12/12/17 06:29 PT 15.6 Seconds (9.4-12.1) H 12/10/17 02:55 INR 1.4 12/10/17 02:55 APTT 71.2 Seconds (26.0-36.0) H 12/10/17 02:55 Heparin Anti-Xa, Unfract 0.43 IU/mL (0.30-0.70) 12/12/17 06: VBG pH 7.45 pH Units (7.32-7.42) H 12/09/17 15:36 VBG pCO2 39 mmHg (41-51) L 12/09/17 15:36 VBG pO2 100 mmHg (25-50) H 12/09/17 15:36 VBG HCO3 27 mEq/L (21-27) 12/09/17 15:36 Sodium 135 mEq/L (136-145) L 12/12/17 06:29 Potassium 4.1 mEq/L (3.5-5.1) 12/12/17 06:29 Chloride 103 mEq/L (98-107) 12/12/17 06:29 Carbon Dioxide 22 mEq/L (23-29) L 12/12/17 06:29 BUN 52 mg/dL (8-23) H 12/12/17 06:29 Creatinine 3.76 mg/dL (0.60-1.20) H 12/12/17 06:29 Est GFR ( Amer) 14 (> 60) L 12/12/17 06:29 Est GFR (Non-Af Amer) 12 (> 60) L 12/12/17 06:29 BUN/Creatinine Ratio 14 (6-26) 12/12/17 06:29 Glucose 266 mg/dL (70-105) H 12/12/17 06:29 POC Glucose 280 mg/dL (70-99) H 12/12/17 07:18 Calculated Osmolality 303 (280-300) H 12/12/17 06:29 Lactic Acid 1.3 mmol/L (0.5-2.2) 12/09/17 18:56 Uric Acid 6.1 mg/dL (2.3-7.6) 12/10/17 15:22 Calcium 8.1 mg/dL (8.6-10.3) L 12/12/17 06:29 Phosphorus 2.1 mg/dL (2.7-4.5) L 12/10/17 00:46 Magnesium 1.9 mg/dL (1.6-2.6) 12/11/17 05:40 Iron 36 mcg/dL (50-170) L 12/12/17 06:29 % Saturation 20 % (15-50) 12/12/17 06:29 Transferrin 130 mg/dL (203-362) L 12/12/17 06:29 Total Bilirubin 0.8 mg/dL (0.3-1.0) 12/10/17 00:46 Direct Bilirubin 0.3 mg/dL (0.0-0.2) H 12/09/17 13:10 Indirect Bilirubin 0.3 mg/dL (0.0-1.2) 12/09/17 13:10 AST 21 Units/L (13-39) 12/10/17 00:46 ALT 9 Units/L (7-52) 12/10/17 00:46 Alkaline Phosphatase 112 Units/L (34-104) H 12/10/17 00:46 Ammonia 20 mcmol/L (16-53) 12/09/17 13:51 Creatine Kinase 80 Units/L (30-223) 12/10/17 15:22 Troponin I 0.86 ng/mL (< 0.04) H* 12/10/17 06:31 Serum Total Protein 6.4 g/dL (6.4-8.9) 12/10/17 00:46 Albumin 2.3 g/dL (3.5-5.7) L 12/10/17 00:46 Globulin 4.1 g/dL (2.4-3.5) H 12/10/17 00:46 Albumin/Globulin Ratio 0.6 (1.1-2.2) L 12/10/17 00:46 Prealbumin 10.3 mg/dL (17.0-34.0) L 12/09/17 18:56 Beta-Hydroxybutyric Acd 0.23 mmol/L (0.02-0.27) 12/09/17 15:13 Urine Color Yellow (Yellow) 12/09/17 16:02 Urine Clarity Turbid (Clear) A 12/09/17 16:02 Urine pH 7.0 pH Units (5.0-8.0) 12/09/17 16:02 Ur Specific Leroy 1.021 (1.010-1.025) 12/09/17 16:02 Urine Protein >=300 mg/dL (Neg-Trace) H 12/09/17 16:02 Urine Glucose (UA) Normal mg/dL (Normal) 12/09/17 16:02 Urine Ketones Negative mg/dL (Negative) 12/09/17 16:02 Urine Blood Large (Negative) H 12/09/17 16:02 Urine Nitrite Negative (Negative) 12/09/17 16:02 Urine Bilirubin Negative (Negative) 12/09/17 16:02 Urine Urobilinogen Normal mg/dL (Normal) 12/09/17 16:02 Ur Leukocyte Esterase Large (Negative) H 12/09/17 16:02 Urine Microscopic RBC 30-50 per hpf (0-3) H 12/09/17 16:02 Urine Microscopic WBC TNTC per hpf (0-3) H 12/09/17 16:02 Ur Eosinophil Smear 0 % (None Seen) 12/10/17 15:45 Ur Squamous Epith Cells Many per lpf (None-Few) H 12/09/17 16:02 Urine Bacteria Many per hpf (None-Few) H 12/09/17 16:02 Hyaline Casts None Seen per lpf (None-Few) 12/09/17 16:02 Ur Culture Indicated? NO. (NO) A 12/09/17 16:02 Urine Creatinine 79 mg/dL 12/10/17 15:45 Urine Sodium 72.1 mEq/L 12/10/17 15:45 Random Vancomycin 17 mcg/mL 12/11/17 05:40 Urine Opiates Screen Negative ng/mL (Szbiuu=643) 12/09/17 16:00 Ur Barbiturates Screen Negative ng/mL (Ggabac=277) 12/09/17 16:00 Ur Phencyclidine Scrn Negative ng/mL (Cutoff=25) 12/09/17 16:00 Ur Amphetamines Screen Negative ng/mL (Xvebmu=2182) 12/09/17 16:00 U Benzodiazepines Scrn Negative ng/mL (Oeqnib=327) 12/09/17 16:00 Urine Cocaine Screen Negative ng/mL (Cutoff= 300) 12/09/17 16:00 U Marijuana (THC) Screen Negative ng/mL (Cutoff = 50) 12/09/17 16:00 Ur Drug Screen Interp See Below 12/09/17 16:00 Ethyl Alcohol < 10 mg/dL (Less than 10) 12/09/17 13:10 A. baumannii (PCR) Not Detected (Not Detect) 12/09/17 15:13 Yolanda albicans (PCR) Not Detected (Not Detect) 12/09/17 15:13 C. glabrata (PCR) Not Detected (Not Detect) 12/09/17 15:13 C. krusei (PCR) Not Detected (Not Detect) 12/09/17 15:13 C. parapsilosis (PCR) Not Detected (Not Detect) 12/09/17 15:13 C. tropicalis (PCR) Not Detected (Not Detect) 12/09/17 15:13 Enterobacteriac sp PCR Not Detected (Not Detect) 12/09/17 15:13 E. cloacae complex PCR Not Detected (Not Detect) 12/09/17 15:13 Enterococcus sp PCR Not Detected (Not Detect) 12/09/17 15:13 E. coli (PCR) Not Detected (Not Detect) 12/09/17 15:13 H. influenzae (PCR) Not Detected (Not Detect) 12/09/17 15:13 Klebsiella oxytoca PCR Not Detected (Not Detect) 12/09/17 15:13 Klebsiella pneumoniae Not Detected (Not Detect) 12/09/17 15:13 List. monocytogenes PCR Not Detected (Not Detect) 12/09/17 15:13 N. meningitidis (PCR) Not Detected (Not Detect) 12/09/17 15:13 Proteus species (PCR) Not Detected (Not Detect) 12/09/17 15:13 Serratia marcescens PCR Not Detected (Not Detect) 12/09/17 15:13 Staphylococcus sp PCR DETECTED (Not Detect) A 12/09/17 15:13 Staph aureus (PCR) Not Detected (Not Detect) 12/09/17 15:13 mecA-Methicil Res Gene DETECTED (Not Detect) A 12/09/17 15:13 Streptococcus sp PCR Not Detected (Not Detect) 12/09/17 15:13 Group A Strep DNA Not Detected (Not Detect) 12/09/17 15:13 Group B Strep (PCR) Not Detected (Not Detect) 12/09/17 15:13 Strep pneumoniae (PCR) Not Detected (Not Detect) 12/09/17 15:13 P. aeruginosa (PCR) Not Detected (Not Detect) 12/09/17 15:13 Lisbeth/B-Vanco Res Genes Not Detected (Not Detect) 12/09/17 15:13 KPC (blaKPC) Detect PCR Not Detected (Not Detect) 12/09/17 15:13 - Impressions Impressions Chest X-Ray 12/12/17 11:50 IMPRESSION: Cardiomegaly with pulmonary vascular congestion as well as diffuse interstitial pulmonary edema. Small bilateral effusions. D/ / Damir Miranda MD / Damir Miranda MD Interpreting Provider: Damir Miranda MD Consult Discharge Plan - Plan Instructions: BiPAP, Director [facility] (GEN) Referrals: Wale Lam DO [Primary Care Provider] - 12/21/17 1:30 pm
[2017-12-12] MEDS: *HR* LORazepam 0.5 MG TABLET PO SCH (22:24)
[2017-12-13] MEDS: MetroNIDAZOLE 500 MG/100 ML 500 MG/100 ML BAG IVPB SCH ×4 (00:44→23:34)
[2017-12-13] MEDS: *HR* Heparin 5,000 UNIT/ML VIAL SQ SCH ×2 (04:30→18:46)
[2017-12-13 06:59] LABS: Basophils % 0.6 %; Eosinophils # 0.3 K/mcL (0.0-0.6); Hematocrit 27.8 % (35.3-44.9); Hemoglobin 8.6 g/dL (11.5-15.4); Immature Granulocytes % 4.3 % (0-4); Lymphocytes % 15.1 %; Mean Corpuscular HGB Conc 30.9 g/dL (31.6-35.5); Mean Corpuscular Hemoglobin 28.5 pg (28.0-33.3); Mean Corpuscular Volume 92.1 fL (83.0-100.0); Mean Platelet Volume 10.2 fL (9.4-12.4); Monocytes # 0.7 K/mcL (0.0-1.3); Monocytes % 10.5 %; Neutrophils # 4.1 K/mcL (1.6-8.9); Nucleated Red Blood Cells 0.3 /100 WBC (0); Platelet Count 350 K/mcL (140-400); Red Blood Count 3.02 M/mcL (3.82-4.97); Red Cell Distribution Width 15.7 % (11.5-14.5); Segmented Neutrophils % 65.5 %
--- NOTE | 2017-12-13 08:27 | Internal Med Progress Note ---
<JamesAnatoliy S - Last Filed: 12/13/17 11:18> Hospitalist Progress Note - Encounter Date of Encounter: 12/13/17 Time of Encounter: 08:25 - Subjective Interval History: Pt is seen at the bedside. She was admitted on Tuesday (12/09/17) for AMS from her long term. She was discharged the day before after being tx for sepsis 2/2 UTI and had to be intubated for acute respiratory failure. Pt later developed DVT and was put on anicoag, which was d/c'd secondary to hematuria. She was sent back and found to have an NSTEMI with troponin peak at 2.16 , UTI and TENISHA with CKD 3 The patient mentation is slightly better today. She is oriented to self, not time or place. She is able to speak more today and is able to tell me yes and no to short questions. She denies chest pain, SOB, abd pain, N/V/D. She also continues to "milky" consistency to urine. Hematuria as per nursing as improved. - Exam Vitals: Temp Pulse Resp BP Pulse Ox 97.8 F 103 18 145/87 97 12/13/17 04:39 12/13/17 04:39 12/13/17 04:39 12/13/17 04:39 12/13/17 04:39 Exam: General - disscheveled, oriented to person, NAD Cardio - tacycardia, s1s2, regular rhythm, no murmurs lungs - Diminished BS b/l, no wheezing, no crackles, no rales abd - NTND, no rebound or guarding, obese extremities - stage 1 pressure ulcers B/L heels, edema +.. No cellulites skin - venous stasis B/L LE Psych: Depressed, catatonic appearance, more awake today - Assessment and Plan (1) Sepsis Current Visit: Yes Status: Acute Assessment and Plan: Does not currently meet sepsis criteria -HR 103 -RR 18, BP stable -WBC 6.3 Blood cx grew s epidermidis, most likely a contaminate -urine still has a milky consistency to it, hematuria has resolved Plan: -continue Cefepime day 5, flagl day 4 -consult infectious disease -vancomycin discontinued 12/10/17 -repeat blood cx pending -montior CBC (2) NSTEMI (non-ST elevated myocardial infarction) Current Visit: Yes Status: Acute Assessment and Plan: Most likely demand ischemia type II -2/2 sepsis with UTI/pneumonia EKG negative for acute ischemic changes, ST elevation Plan: -d/c heparin drip (12/12/17) -ASA - Lopressor IVP -Toprol XL 25mg PO daily -continue rouvastatin -cardiology consulted -clopidogrel still currently held, will discuss with cardiology if ok to restart (3) DVT prophylaxis Current Visit: Yes Status: Acute Assessment and Plan: 5000u SQ heparin, d/c heparin drip (4) Acute kidney injury superimposed on chronic kidney disease Current Visit: Yes Status: Acute Assessment and Plan: Creatinine on admission was 3.48 (12/09/17) -12/11/17: 3.83 ----> 12/12/17 creatinine 3.76 -----> creatinine 12/13/17 : 3.90 -baseline creatinine < 3 Patient was given IV fluids for 2 days with minimal improvement -pt also has CHF with LVEF 30% and has some volume overload Retroperitoneal US was unremarkable I&O: Intake - 100mL Output - 800 mL Balance -700 mL Elizondo cath output - 800mL Plan: -worsening renal fxn most likely 2/2 sepsis -nephro consulted, says no indifcation for acute hemodialysis at this time -lactated ringers discontinued -hold nephrotoxic agents -monitor CMP (5) Hypertension Current Visit: No Status: Chronic Assessment and Plan: BP 148/59 -adequate control -start home amlodipine 10mg (6) Type 2 diabetes mellitus Current Visit: No Status: Chronic Assessment and Plan: Will change ISS to high dose -glucose this AM 338, difficult to control -start 5U Levemir BID today (7) Chronic systolic heart failure Current Visit: No Status: Chronic Assessment and Plan: Last ECHO was in 2017 -LVEF at that time was 30% -Not in acute exacerbation 2 D ECHO - showed LVEF 30% 12/12/17 I&O's -I: 100mL -O: 800mL -Balance: -700 mL -Elizondo cath - 800mL Plan: -diuretics held 2/2 TENISHA -strict I&O's (8) Pneumonia Current Visit: No Status: Ruled-out Assessment and Plan: CXR/CT was concerning for infiltrates on B/L basal regions -?aspiration pneumonia Blood cx grew s epidermidis Plan: -continue cefepime day 5 for psuedomonas/gram(+) and flagyl day 4 for anaerobic coverage; plan to de-escalate abx -puree diet for now to avoid aspiration (9) UTI (urinary tract infection) Current Visit: Yes Status: Acute Assessment and Plan: UA showed large leukocyte esterase, 30-50 RBC, TNTC WBC Pt was recently admitted for hematuria/sepsis 2/2 UTI and was tx with Vanc and Cefepime, as per ID -has had shonna in the past in urine -still "milky" consistency of urine -hematuria resolved Urine cx = yeast species Blood cx - s epi and g(+) rods Plan: - Cefepime day 5 and Diflucan 4 -repeat blood cx pending -ID consulted (10) Obesity (BMI 30-39.9) Current Visit: No Status: Chronic Assessment and Plan: BMI is 41.9 (11) Catatonia Current Visit: Yes Status: Acute Assessment and Plan: Pt more interactive today Psych consulted saw pt, she doesn't want ECT or inpt psych treatment. They recommend Ativan 0.5 mg by mouth 3 times a day and 5 mg at bedtime. Plan: -Nudexta started -puree diet, tolerating -continue Ativan as per psych recommendations (12) Shonna infection Current Visit: Yes Status: Acute Assessment and Plan: Pt has shonna in the mouth and under skin folds -nystatin swish and spit -topical nystatin for skin folds (13) Chronic anemia Current Visit: No Status: Chronic Assessment and Plan: Hemoglobin today 8.6 -On admission 9.0, HD 3 7.9 -stable H&H -MCV 91 -prealbumin 10.6 -most likely nutritional deficiency in nature and chronic dz -Iron 36, Iron % sat 20, transferrin 130 -continue home ferrous sulfate - Time Spent with Patient Total time spent is greater than 50% in coordination of care (as documented) at patient's floor/unit and/or counseling patient: less than 15 minutes Plan of Care Discussed with: patient Internal Medicine: Result - Labs CBC & Chem 7: 12/13/17 06:34 12/13/17 08:23 Labs: Short CBC 12/13/17 Range/Units 06:34 WBC 6.3 (4.3-11.1) K/mcL Hgb 8.6 L (11.5-15.4) g/dL Hct 27.8 L (35.3-44.9) % Plt Count 350 (140-400) K/mcL Neutrophils # 4.1 (1.6-8.9) K/mcL BMP 12/12/17 06:29 Sodium 135 L Potassium 4.1 Chloride 103 Carbon Dioxide 22 L BUN 52 H Creatinine 3.76 H Glucose 266 H Calcium 8.1 L - ABG Interpretation ABG results: PT/INR, D-dimer PT 15.6 Seconds (9.4-12.1) H 12/10/17 02:55 - Impressions Impressions Chest X-Ray 12/12/17 11:50 IMPRESSION: Cardiomegaly with pulmonary vascular congestion as well as diffuse interstitial pulmonary edema. Small bilateral effusions. D/ / Damir Miranda MD / Damir Miranda MD Interpreting Provider: Damir Miranda MD - VTE Documentation of Mechanical Device: Intermittent pneumatic compression device Consult Discharge Plan - Plan Instructions: BiPAP, C[employer] (GEN) Referrals: Wale Lam DO [Primary Care Provider] - 12/21/17 1:30 pm <Isabel Rocha - Last Filed: 12/13/17 18:34> Hospitalist Progress Note - Encounter Date of Encounter: 12/13/17 - Exam Vitals: Temp Pulse Resp BP Pulse Ox 98.3 F 73 18 101/70 97 12/13/17 15:33 12/13/17 15:33 12/13/17 15:33 12/13/17 15:33 12/13/17 15:33 - Assessment and Plan (1) DVT prophylaxis Current Visit: Yes Status: Acute (2) Acute kidney injury superimposed on chronic kidney disease Current Visit: Yes Status: Acute (3) Hypertension Current Visit: No Status: Chronic (4) Type 2 diabetes mellitus Current Visit: No Status: Chronic (5) Chronic systolic heart failure Current Visit: No Status: Chronic (6) Pneumonia Current Visit: No Status: Suspected (7) Sepsis Current Visit: Yes Status: Acute (8) UTI (urinary tract infection) Current Visit: Yes Status: Acute (9) Obesity (BMI 30-39.9) Current Visit: No Status: Chronic (10) NSTEMI (non-ST elevated myocardial infarction) Current Visit: Yes Status: Acute (11) Catatonia Current Visit: Yes Status: Acute (12) Shonna infection Current Visit: Yes Status: Acute (13) Chronic anemia Current Visit: No Status: Chronic - Time Spent with Patient Total time spent is greater than 50% in coordination of care (as documented) at patient's floor/unit and/or counseling patient: Internal Medicine: Result - Labs CBC & Chem 7: 12/13/17 06:34 12/13/17 08:23 Labs: Short CBC 12/13/17 Range/Units 06:34 WBC 6.3 (4.3-11.1) K/mcL Hgb 8.6 L (11.5-15.4) g/dL Hct 27.8 L (35.3-44.9) % Plt Count 350 (140-400) K/mcL Neutrophils # 4.1 (1.6-8.9) K/mcL BMP 12/13/17 08:23 Sodium 138 Potassium 4.1 Chloride 104 Carbon Dioxide 24 BUN 58 H Creatinine 3.90 H Glucose 244 H Calcium 8.4 L Liver Function 12/13/17 Range/Units 08:23 Total Bilirubin 0.5 (0.3-1.0) mg/dL AST 12 L (13-39) Units/L ALT 12 (7-52) Units/L Alkaline Phosphatase 119 H (34-104) Units/L Albumin 2.6 L (3.5-5.7) g/dL - ABG Interpretation ABG results: PT/INR, D-dimer PT 15.6 Seconds (9.4-12.1) H 12/10/17 02:55 - Attending Attestation I examined this patient and my medical decision-making was reviewed with the Resident Physician Dr. Lin. I agree with the documented findings, disposition and treatment plan as described except to the extent set forth below. <Anatoliy Ramirez - Last Filed: 12/13/17 11:18> (1) Sepsis Qualifiers: Sepsis type: sepsis due to unspecified organism Qualified Code(s): A41.9 - Sepsis, unspecified organism (5) Hypertension Qualifiers: Hypertension type: essential hypertension Qualified Code(s): I10 - Essential (primary) hypertension (6) Type 2 diabetes mellitus Qualifiers: Diabetes mellitus stitcher operator insulin use: with longterm use Diabetes mellitus complication status: with kidney complications Diabetes mellitus complication detail: with chronic kidney disease Chronic kidney disease stage: stage 4 (severe) Qualified Code(s): E11.22 - Type 2 diabetes mellitus with diabetic chronic kidney disease; N18.4 - Chronic kidney disease, stage 4 (severe ); Z79.4 - halfway (current) use of insulin (8) Pneumonia Qualifiers: Pneumonia type: due to unspecified organism Laterality: right Lung location : lower lobe of lung Qualified Code(s): J18.1 - Lobar pneumonia, unspecified organism (9) UTI (urinary tract infection) Qualifiers: Urinary tract infection type: site unspecified Hematuria presence: without hematuria Qualified Code(s): N39.0 - Urinary tract infection, site not specified <Isabel Rocha - Last Filed: 12/13/17 18:34> (3) Hypertension Qualifiers: Hypertension type: essential hypertension Qualified Code(s): I10 - Essential (primary) hypertension (4) Type 2 diabetes mellitus Qualifiers: Diabetes mellitus stitcher operator insulin use: with stitcher operator use Diabetes mellitus complication status: with kidney complications Diabetes mellitus complication detail: with chronic kidney disease Chronic kidney disease stage: stage 4 (severe) Qualified Code(s): E11.22 - Type 2 diabetes mellitus with diabetic chronic kidney disease; N18.4 - Chronic kidney disease, stage 4 (severe ); Z79.4 - halfway (current) use of insulin (6) Pneumonia Qualifiers: Pneumonia type: due to unspecified organism Laterality: right Lung location : lower lobe of lung Qualified Code(s): J18.1 - Lobar pneumonia, unspecified organism (7) Sepsis Qualifiers: Sepsis type: sepsis due to unspecified organism Qualified Code(s): A41.9 - Sepsis, unspecified organism (8) UTI (urinary tract infection) Qualifiers: Urinary tract infection type: site unspecified Hematuria presence: without hematuria Qualified Code(s): N39.0 - Urinary tract infection, site not specified
[2017-12-13] MEDS ORDERED: Aspirin Enteric Coated 81 MG Tablet PO SCH (09:00)
[2017-12-13] MEDS: Aspirin 325 MG TABLET PO SCH (09:12)
[2017-12-13] MEDS: *HR* LORazepam 0.5 MG TABLET PO SCH ×3 (09:12→20:33)
[2017-12-13] MEDS: Metoprolol XL (24 HR) Succ 25 MG TAB.ER.24H PO SCH (09:12)
[2017-12-13 09:15] LABS: Albumin 2.6 g/dL (3.5-5.7); Albumin/Globulin Ratio 0.6 (1.1-2.2); Bilirubin,Total 0.5 mg/dL (0.3-1.0); Calcium 8.4 mg/dL (8.6-10.3); Globulin 4.2 g/dL (2.4-3.5); Potassium 4.1 mEq/L (3.5-5.1); Total Protein 6.8 g/dL (6.4-8.9)
[2017-12-13] MEDS: Insulin DETEMIR 100 UNIT/ML X5UNITS SQ SCH ×2 (09:25→21:07)
[2017-12-13] MEDS: Ascorbic Acid 500 MG TABLET PO SCH ×2 (09:25→20:33)
[2017-12-13] MEDS: amLODIPine 5 MG TABLET PO SCH ×2 (09:25→11:52)
[2017-12-13] MEDS: Nystatin SUSP 5 ML UD.LIQ PO SCH ×4 (09:28→20:34)
[2017-12-13] MEDS: QUINIDINE PO SCH (09:35)
[2017-12-13] MEDS: Nystatin POWDER 30 GM BOTTLE TP SCH ×2 (09:35→20:35)
[2017-12-13] MEDS: Nystatin Cream 15 GM TUBE TP SCH ×2 (09:35→20:35)
[2017-12-13] MEDS: DEXTROMETHORPHAN HBR PO SCH (09:35)
[2017-12-13] MEDS: MICONAZOLE NITRATE 57 GM TUBE TP SCH ×2 (09:42→20:34)
--- NOTE | 2017-12-13 10:27 | Cardiology Progress Note ---
Date of Encounter: 12/13/17 Time of Encounter: 10:24 Assessment and Plan (1) NSTEMI (non-ST elevated myocardial infarction) Current Visit: Yes Status: Acute Elevated troponin in the setting of TENISHA/CKD, sepsis secondary to UTI and PNA, DKA. Type II VT. Patient with known 3 vessel CAD s/p CABG, and CMP. Patient denies chest pain. Noted some SOB. TTE shows LVEF 30%. Global and segmental LV systolic dysfunction. Mildly dilated left ventricle. Atypical septal motion consistent with post-operative status. Mild-moderate mitral regurgitation. Mild tricuspid regurgitation. [facility] 01/2016- Severe three vessel CAD, 2/2 patent bypass. EF unchanged from previous TTE in 2017. Medical management recommended. Patient and family agree. Continue asa, statin, and bb. Discussed with primary team. Plavix will be restarted as she tolerated after last discharge. (2) Biventricular ICD (implantable cardioverter-defibrillator) in place Current Visit: No Status: Chronic [employer] BiV ICD in place for cardiomyoapthy. Device check completed showing high atrial rates. Likely 2:1 flutter per device rep. there was 65 episodes of AT/AF since 12/09/17 currently on-going. Battery within range and device functioning as programmed. (3) Cardiomyopathy Current Visit: No Status: Chronic H/o ICMP. EF unchanged this visit. Fluid overload on exam yesterday with increased SOB. CXR showed pulmonary edema. IV lasix given. SOB improved some. SOB multifactoral with PNA. Here with worsening renal function. Appreciate nephrology recommendation. Scr increased from yesterday after IV lasix. Net positive 4260 ml today. Continue bb. No ACi due to kidney dysfunction. Qualifiers: Cardiomyopathy type: ischemic Qualified Code(s): I25.5 - Ischemic cardiomyopathy (4) Atrial flutter with rapid ventricular response Current Visit: Yes Status: Acute Atrial flutter with RVR seen on device interrogation. New diagnosis, ongoing since 12/09/17. HR 100-110. Increase toprol XL to 50 mg (home dose). Increase as needed. Avoid cardizem in the setting of known CMP EF 30%. 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 On heparin gtt initially and Hgb trended down. Recent DVT and unable to start AC, GFF placed. Discussed with patient and son. She is high risk for CVA. There is concern that she will not tolerate full AC. They agree and son voiced understanding. Continue asa and plavix. Discussion w patient/family: The assessment and plan as outlined above was discussed with the patient and/or family members who expressed understanding and agreement. All questions were answered. Thank you for involving us in the care of your patient. Please call with any questions. Subjective Principal diagnosis: NSTEMI Interval history: Ms. Bentley is awake on my exam. She shakes head yes and no and is able to give short responses at times. Denies chest pain or SOB. Son at bedside. Objective Vital Signs, Last 4 Hours Temp Pulse Resp BP Pulse Ox 12/13/17 09:57 91 18 97 12/13/17 08:31 98.0 F 117 18 148/59 97 Results 12/13/17 06:34 12/13/17 08:23 Lab Results 12/12/17 12/13/17 12/13/17 06:29 06:34 08:23 WBC 6.3 Hgb 8.6 L Hct 27.8 L Plt Count 350 Sodium 135 L 138 Potassium 4.1 4.1 Chloride 103 104 Carbon Dioxide 22 L 24 BUN 52 H 58 H Creatinine 3.76 H 3.90 H Glucose 266 H 244 H Calcium 8.1 L 8.4 L Total Bilirubin 0.5 AST 12 L ALT 12 Alkaline Phosphatase 119 H - VTE Documentation of Mechanical Device: Intermittent pneumatic compression device Consult Discharge Plan - Plan Instructions: BiPAP, Chalk Molding Machine Operator (GEN) Referrals: Wale Lam DO [Primary Care Provider] - 12/21/17 1:30 pm
[2017-12-13] MEDS ORDERED: Metoprolol XL (24 HR) Succ 25 MG TAB.ER.24H PO SCH (10:45)
--- NOTE | 2017-12-13 11:23 | Nephrology Progress Note ---
Date of Encounter: 12/13/17 Time of Encounter: 09:45 - Assessment and Plan (1) Acute kidney injury superimposed on chronic kidney disease Current Visit: Yes Status: Acute Acute kidney injury on CKD stage IV, baseline GFR in the 20 Serum creatinine remained poor this morning, increasing to 3.90 from 3.76. GFR dropped by 11 Per the patient's chart, there appears to be approximately 1590 mL urine per Elizondo yesterday, and approximately 800 today. There is still sediment in urine Although the patient has not shown significant improvement, there is still no acute indication for hemodialysis at this time as the patient is making urine and is biochemically stable Fluids are appropriate as the patient can tolerate them, however they were stopped yesterday as the patient became somewhat fluid overloaded. Recommend oral hydration as tolerated We will continue to monitor, check for possible indications for hemodialysis in the morning Recommend avoidance of nephrotoxins at this time as possible Plan explained to family, they agree (2) UTI (urinary tract infection) Current Visit: Yes Status: Acute Urine demonstrates Yolanda species on culture Management per primary team Qualifiers: Qualified Code(s): N39.0 - Urinary tract infection, site not specified (3) Elevated troponin Current Visit: Yes Status: Acute Management per cardiology (4) Dyspnea and respiratory abnormality Current Visit: Yes Status: Acute Significantly improved from prior day, no wheezing on exam Does not appear to have significant crackles or rales on examination 2 view chest x-ray did show volume overload and pulmonary edema on examination Patient received 20 mg IV push Lasix from cardiology yesterday and had significant urine output Continue to monitor (5) Anemia Current Visit: No Status: Acute Patient has significant anemia, however improving hemoglobin 8.6 Transfusion parameters per primary team Qualifiers: Qualified Code(s): D64.9 - Anemia, unspecified Subjective Principal diagnosis: NSTEMI Interval history: The patient is resting in bed at time of examination. She appears to be breathing significantly better than she was yesterday, and does not appear to be as distressed that she was previously. She is speaking more than she was before. She did have Lasix per cardiology yesterday as she had pulmonary edema noted on chest x-ray. Objective - Vital Signs Vital signs: Vital Signs Temp Pulse Resp BP Pulse Ox 12/13/17 10:48 98.2 F 98 18 146/73 97 12/13/17 09:57 91 18 97 12/13/17 08:31 98.0 F 117 18 148/59 97 12/13/17 04:39 97.8 F 103 18 145/87 97 12/13/17 00:19 97.6 F 87 18 103/52 98 12/12/17 20:15 119 12/12/17 20:09 98.2 F 119 18 132/85 94 12/12/17 16:15 98.3 F 117 18 132/92 94 12/12/17 11:48 112 12/12/17 11:25 98.3 F 118 20 130/97 95 Intake and Output 12/12/17 12/13/17 12/13/17 23:59 07:59 15:59 Intake Total 210 / 210 100 / 100 120 / 120 Output Total 500 / 500 800 / 800 Balance -290 / -290 -700 / -700 120 / 120 Intake: IV Fluids 210 / 210 100 / 100 Lactated Ringers 1,000 ML @ 70 100 / 100 mls/hr IVC .[id number] MAGAN Rx#: [id number] Maxipime 1,000 MG In Water for inj. (sterile) 10 ML @ 300 mls/ hr IVP QPM MAGAN Rx#:[id number] Flagyl Premix 500 MG/100 ML 500 100 / 100 100 / 100 mg In 100 ml @ 100 mls/hr IVPB Q8HR MAGAN Rx#:[id number] Oral 120 / 120 Output: Catheter 500 / 500 800 / 800 Other: Meal Dinner Breakfast Percent of Meal Consumed 80% 100% Stool Size Smear Smear Stool Consistency soft Stool Characteristics Normal for Patient Stool Color Brown Yellow Weight 107.2 kg 107.2 kg Blood Glucose* 338 336 Patient Weight 12/13/17 23:59 Weight 107.2 kg - General Appearance Exam: General appearance: Present: chronically ill, fatigue EENT: Present: ATNC, mucous membranes dry Neck: Present: no JVD, supple Respiratory: Present: clear (ant bilat), no wheezes noted Cardiology: Present: edema (trace LE edema bilat), normal S1, normal S2 Gastrointestinal: Present: no tenderness, no guarding Integumentary: Present: warm and dry Neurologic: Present: no focal deficit, patient does not speak Musculoskeletal: Present: no deformities Psychiatric: Present: depressed - Lab 12/13/17 06:34 12/13/17 08:23 Most recent lab results Calcium 8.4 mg/dL (8.6-10.3) L 12/13/17 08:23 Phosphorus 2.1 mg/dL (2.7-4.5) L 12/10/17 00:46 Magnesium 1.9 mg/dL (1.6-2.6) 12/11/17 05:40 Urine Creatinine 79 mg/dL 12/10/17 15:45 Urine Sodium 72.1 mEq/L 12/10/17 15:45 - VTE Documentation of Mechanical Device: Intermittent pneumatic compression device Consult Discharge Plan - Plan Instructions: BiPAP, Photo Mask Processor (GEN) Referrals: Wale Lam DO [Primary Care Provider] - 12/21/17 1:30 pm
--- NOTE | 2017-12-13 11:31 | Electrocardiograph Report ---
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
[2017-12-13] MEDS: Fluconazole 100 MG/50 ML 100 MG/50 ML BAG IVPB SCH (11:40)
[2017-12-13] MEDS: Insulin LISPRO 300 UNITS/3 ML VIAL SQ SCH ×3 (11:49→21:06)
[2017-12-13] MEDS ORDERED: Metoprolol XL (24 HR) Succ 25 MG TAB.ER.24H PO ONE (11:56)
--- NOTE | 2017-12-13 17:21 | Infectious Disease Consult ---
Date of Encounter: 12/13/17 Time of Encounter: 14:00 Assessment and Plan (1) Severe sepsis Status: Resolved Assessment and plan: No longer meets sepsis criteria. Fever, tachypnea, and leukocytosis are resolved. On admission, met 4 SIRS criteria with fever, tachycardia, tachypnea, and leukocytosis. Possibly secondary to candiduria/pneumonia. Blood culture drawn 12/09 1 out of 2 is positive for Staph epidermidis. Likely contaminant, will not treat. Repeat blood cultures drawn 12/12 are NGTD. Continue cefepime, flagyl, diflucan. Monitor renal function and for drug toxicity and dose-adjust antibiotics. (2) Candiduria Status: Acute Assessment and plan: Urinalysis showed negative nitrite, large leukocyte esterase, and many urine bacteria. High protein, large blood, high RBC, and high WBC. Urine culture 12/10 showed shonna albicans. Continue diflucan. (3) Pneumonia Status: Suspected Assessment and plan: Check Legionella and Strep pneumoniae antigens. CT abd/pelvis showed persistent bibasilar airspace disease, atelectasis vs pneumonia. Obtain CT chest to further evaluate for possible pneumonia. If concern for aspiration pneumonia, recommend swallow evaluation. Continue antibiotics as above. Qualifiers: Pneumonia type: due to unspecified organism Laterality: right Lung location: lower lobe of lung Qualified Code(s): J18.1 - Lobar pneumonia, unspecified organism (4) Acute kidney injury superimposed on chronic kidney disease Status: Acute Assessment and plan: CKD stage 4, baseline GFR 20. Most likely pre-renal Retroperitoneal ultrasound showed no hydronephrosis with normal renal echogenicity. Gentle hydration. Nephrology consulted and following. (5) NSTEMI (non-ST elevated myocardial infarction) Status: Acute Assessment and plan: History of 3 vessel CAD s/p CABG. Elevated troponin at admission. Most likely demand ischemia type 2 TTE 12/10/17 showed LVEF 30%, unchanged from prior TTE 2016. Global and segmental LV systolic dysfunction. Management per Cardiology. (6) Catatonia Status: Acute Assessment and plan: History of depression. Recent of son and [id number]-rny. Head CT showed no acute intracranial abnormality. Ativan and memantine. Management per Psychiatry. (7) Shonna infection Status: Acute Assessment and plan: In mouth and under skin folds. Nystatin. Management per primary team. (8) Chronic systolic heart failure Status: Chronic Assessment and plan: Pacemaker and defibrillator. TTE 12/10/17 showed LVEF 30%, unchanged from prior TTE 2016. Global and segmental LV systolic dysfunction. Management per Cardiology. (9) Atrial flutter with rapid ventricular response Status: Acute Assessment and plan: Toprol Management per Cardiology. (10) Type 2 diabetes mellitus Status: Chronic Assessment and plan: Insulin. Qualifiers: Diabetes mellitus intermediate insulin use: with intermediate use Diabetes mellitus complication status: with kidney complications Diabetes mellitus complication detail: with chronic kidney disease Chronic kidney disease stage : stage 4 (severe) Qualified Code(s): E11.22 - Type 2 diabetes mellitus with diabetic chronic kidney disease; N18.4 - Chronic kidney disease, stage 4 (severe ); Z79.4 - long-term (current) use of insulin (11) Chronic anemia Status: Chronic Assessment and plan: Stable. Transfusion parameters per primary team. (12) Hypertension Status: Chronic Assessment and plan: On amlodipine. Qualifiers: Hypertension type: essential hypertension Qualified Code(s): I10 - Essential (primary) hypertension Infectious Disease HPI - Data of Consult Requesting Physician: Rosalio Briceno MD Primary Care Provider: Wale Lam DO - Consult Narrative History of present illness: Ms. Bentley is a 72 year old female with past medical history of systolic CHF with defibrillator, CKD stage 3, diabetes type 2, HTN, HLD, MA, peripheral artery disease, back pain, morbid obesity, CVA, depression, and catatonia. The patient was admitted to the hospital on 12/09/17 for severe sepsis, elevated troponin, and TENISHA on CKD. We are consulted on 12/13/17 for UTI and pneumonia. Briefly, the patient is a 72 year old female with past medical history as stated above. Patient presented to the ED on 12/09 from nursing facility [facility] due to altered mental status and milky urine from catheter. Was discharged from the hospital on 12/08 for hematuria and sepsis secondary to UTI treated with vancomycin, cefepime, and diflucan. On presentation to the ED, the patient was febrile (temperature 102.2), tachycardic, and tachypneic. Blood pressure was stable. WBC was elevated at 16.8. Lactic acid was elevated at 3.2. Urinalysis showed negative nitrite, large leukocyte esterase, and many urine bacteria. Large blood, high RBC, and high WBC. Point of care ultrasound did not reveal large pleural effusion. CXR showed some worsening of bilateral infiltrates which may represent pulmonary edema due to CHF. CT abd/pelvis showed persistent bibasilar airspace disease, atelectasis vs pneumonia. There was perivesical fat stranding. Head CT showed no acute intracranial abnormality. Patient was given broad spectrum antibiotics. Patient was admitted for further evaluation and management. Patient was started on cefepime. Blood cultures were obtained. Retroperitoneal ultrasound showed no hydronephrosis with normal renal echogenicity. Due to concern for aspiration pneumonia, Flagyl was started. Urine culture showed shonna and diflucan was started. Patient developed fungal infection in mouth and under skin folds, and nystatin was started. Repeat CXR for dyspnea showed diffuse interstitial pulmonary edema. Nephrology was consulted for TENISHA. Cardiology was consulted for elevated troponin. 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 Since admission, fever, tachypnea and leukocytosis have resolved. Hematuria has resolved. Milky urine continues. During my exam today, the family endorses the history as stated above. No acute events overnight. The patient is sleeping comfortably in bed with and daughter by her side. Family states that shes gotten better since admission. She is talking more and eating. However, today she is tired. Patient opens her eyes briefly when shakes her, then goes back to sleep. Patient is not speaking at this time. Nurse reports patient had one bowel movement today, has not had diarrhea. CC: Rosalio Briceno MD Past Med Surg Social Fam HX - Past Medical History Medical history: cardiomyopathy, CHF, coronary artery disease, CVA, diabetes, GERD, hyperlipidemia, hypertension, kidney stones, myocardial infarction, peripheral artery disease, renal disease, TIA Additional medical history: renal insufficiency, blood thinner Psychiatric history: depression, previous psychiatric hospitalization - Past Surgical History Surgical History: appendectomy, breast surgery, carotid endarterectomy, cholecystectomy, coronary bypass (CABG), hysterectomy, pacemaker/AICD, LE vascular intervention Additional surgical history: cyst removed in left breast, left chest pacer/AICD - Social History Smoking Status: Former smoker Smokeless Tobacco Status: No Alcohol use: none Drug use: none - Family History Mother Living Status: Hx Family Cardiac Disorders: Yes (HTN) Hx Family Endocrine Disorder: Yes (diabetes) Hx Family Neurologic Disorders: Yes (2 strokes) Father Living Status: Hx Family Cardiac Disorders: Yes Hx Family Respiratory Disorders: Yes Hx Family Neurologic Disorders: Yes Infectious Disease-CN:Meds Aspirin Enteric Coated [Aspirin EC] 81 mg PO DAILY 08/20/15 [History] Metoprolol XL (24 HR) Succ [Toprol Xl] 50 mg PO DAILY #30 tab.er.24h 01/07/16 [ Rx] Insulin Glargine,Hum.rec.anlog [Toujeo Solostar] 45 units SQ HS 06/10/16 [ History] Multivit-Minerals/Folic/Ginkgo [One Daily For Women 50+ Adv Tb] 1 tab PO DAILY 06/10/16 [History] Furosemide [Lasix] 40 mg PO QAM 10/03/16 [History] Insulin ASPART [Novolog Flexpen] 25 unit SQ TIDWM 10/03/16 [History] Clopidogrel [Plavix] 75 mg PO DAILY 11/03/17 [History] Oxybutynin Chloride [Ditropan Xl] 10 mg PO DAILY 11/03/17 [History] Rosuvastatin Calcium 10 mg PO HS 11/03/17 [History] Ascorbic Acid [Vitamin C] 500 mg PO BID 11/17/17 [History] Ergocalciferol (VITAMIN D2) [Vitamin D2] 50,000 unit PO QWEEK 11/17/17 [History] Dextromethorphan HBr/Quinidine [Nuedexta 20-10 mg Capsule] 1 each PO DAILY 30 Days #30 capsule 12/08/17 [Rx] Ferrous Sulfate 325 mg PO DAILY@0800 tablet 12/08/17 [Rx] LORazepam [Ativan] 1 mg PO TID 6 Days #18 tablet 12/08/17 [Rx] Miconazole 2% ointment [Aloe [place] Antifungal Ointment] 1 appl TP DAILY tube [Rx] amLODIPine [Norvasc] 10 mg PO DAILY tablet 12/08/17 [Rx] 3 Allergy/AdvReac Type Severity Reaction Status Date / Time venom-honey bee Allergy Severe Swelling Verified 11/03/17 10:53 [bee venom (honey bee)] of Lip/Tongue/Throat Cortisone Allergy Mild Hives Verified 11/03/17 10:53 Penicillins Allergy See Verified 11/03/17 10:53 Comments NSAIDS (Non-Steroidal AdvReac Mild UPSET Verified 11/03/17 10:53 Anti-Inflamma STOMACH cefazolin [From Ancef] AdvReac Hives Verified 11/03/17 10:53 Wgtkamu-Srv-Uta Reductase AdvReac Muscle Pain Verified 11/03/17 10:53 Inhibitor [Statins] GRAPE FLAVOR Allergy Mild Swelling Uncoded 11/03/17 10:53 of the Eye Exam - Constitutional Vitals: Temp Pulse Resp BP Pulse Ox 98.3 F 73 18 101/70 97 12/13/17 15:33 12/13/17 15:33 12/13/17 15:33 12/13/17 15:33 12/13/17 15:33 General appearance: morbidly obese, no acute distress, no febrile, no cooperative - Head Head exam: Present: atraumatic, normal inspection, normocephalic - Eye Eye exam: Present: normal appearance - Neck Neck exam: Present: normal inspection - Respiratory Respiratory exam: Present: CTAB. Absent: rales, respiratory distress, rhonchi, wheezes - Cardiovascular Cardiovascular exam: Present: RRR, +S1, +S2 - GI/Abdominal GI/Abdominal exam: Present: distended (obese), normal bowel sounds, soft. Absent: tenderness - Extremities Exam Extremities exam: Absent: joint swelling, normal inspection (stasis dermatitis on bilateral legs, no significant change from prior admission), pedal edema, tenderness - Neurological Exam Neurological exam: Absent: alert, oriented X3 (cannot assess due to sleeping ) - Psychiatric Psychiatric exam: Present: flat affect - Skin Skin exam: Present: dry, intact, normal color, warm Infectious Disease CN: Results - Labs CBC & Chem 7: 12/14/17 05:32 12/14/17 05:32 Cultures: Cultures 12/10/17 16:02 Urine Culture - Final Urine,[place] albicans 12/12/17 06:29 Blood Culture - Preliminary Peripheral Venipuncture Culture is incubating and being continuously monitored for growth. Final report to follow. 12/12/17 06:16 Blood Culture - Preliminary Peripheral Venipuncture Culture is incubating and being continuously monitored for growth. Final report to follow. Serology: Serology 12/10/17 12/10/17 Range/Units 15:45 15:45 Ur Eosinophil Smear 0 (None Seen) % Urine Creatinine 79 mg/dL Urine Sodium 72.1 mEq/L - VTE Documentation of Mechanical Device: Intermittent pneumatic compression device Consult Discharge Plan - Plan Instructions: BiPAP, Business Analyst Ecommerce (GEN) Referrals: Wale Lam DO [Primary Care Provider] - (PATIENT IS GOING TO [facility] NO PCP APPOINTMENT NEEDED) - Attending Attestation I examined this patient and my medical decision-making was reviewed with the Resident Physician. I agree with the documented findings, disposition and treatment plan as described except to the extent set forth below. This is an addendum to original report dictated by resident physician. Please refer to resident's note for full detail. Patient is 72-year-old woman who is known to our service, was seen by us back in November of this year for sepsis and what we thought was pyelonephritis and candiduria. Patient was treated with IV vancomycin for 7 days, cefepime and Flagyl. Patient did well clinically and was discharged home. Patient came in currently with severe sepsis like picture. Patient does not give us any history. Only when the is in the room she speaks a little bit with him. On this admission patient was noted to have 1 out of 2 blood cultures positive for coag-negative staph patient was also found to have candiduria. The chest x-ray was done which showed no pneumonia. Patient was started on cefepime and Flagyl for possible aspiration pneumonia. At this point I do not really know what is causing patient symptoms. Candiduria I do not think will cause this severe sepsis the patient had. Chest x-ray not suggestive of pneumonia. I will look for possible other causes including intra-abdominal process. Check lipase and amylase LFTs. Also will look for possible DVT or gout attack or other reasons why she might have a fever. Patient might need a swallowing evaluation. We will try to get more information once the is back in the room.
[2017-12-13 17:30] LABS: Amylase 20 Units/L (29-103); Lipase 23 Units/L (11-82)
[2017-12-13] MEDS: Cefepime HCl 1,000 MG in Water for inj. (sterile) 20 ML 10 ML IVP SCH (18:44)
[2017-12-14] MEDS: *HR* Heparin 5,000 UNIT/ML VIAL SQ SCH ×2 (05:36→16:39)
[2017-12-14 05:46] LABS: Basophils # 0.1 K/mcL (0.0-0.2); Basophils % 0.8 %; Eosinophils # 0.5 K/mcL (0.0-0.6); Eosinophils % 5.3 %; Hematocrit 26.7 % (35.3-44.9); Hemoglobin 8.4 g/dL (11.5-15.4); Immature Granulocytes % 14.2 % (0-4); Lymphocytes # 1.3 K/mcL (0.6-4.6); Lymphocytes % 14.4 %; Mean Corpuscular HGB Conc 31.5 g/dL (31.6-35.5); Mean Corpuscular Volume 92.1 fL (83.0-100.0); Mean Platelet Volume 10.5 fL (9.4-12.4); Monocytes # 0.8 K/mcL (0.0-1.3); Monocytes % 8.2 %; Neutrophils # 5.3 K/mcL (1.6-8.9); Platelet Count 320 K/mcL (140-400); Red Cell Distribution Width 15.8 % (11.5-14.5); Segmented Neutrophils % 57.1 %
[2017-12-14 06:21] LABS: Platelet Estimate Normal (Normal)
[2017-12-14 06:28] LABS: Albumin 2.4 g/dL (3.5-5.7); Albumin/Globulin Ratio 0.6 (1.1-2.2); Bilirubin,Total 0.4 mg/dL (0.3-1.0); Calcium 8.3 mg/dL (8.6-10.3); Potassium 4.9 mEq/L (3.5-5.1); Total Protein 6.4 g/dL (6.4-8.9)
[2017-12-14] MEDS: Aspirin 325 MG TABLET PO SCH (08:06)
[2017-12-14] MEDS: Nystatin SUSP 5 ML UD.LIQ PO SCH ×4 (08:07→20:52)
[2017-12-14] MEDS: Metoprolol XL (24 HR) Succ 25 MG TAB.ER.24H PO SCH (08:07)
[2017-12-14] MEDS: MetroNIDAZOLE 500 MG/100 ML 500 MG/100 ML BAG IVPB SCH (08:07)
[2017-12-14] MEDS: Ascorbic Acid 500 MG TABLET PO SCH ×2 (08:07→20:52)
[2017-12-14] MEDS: *HR* LORazepam 0.5 MG TABLET PO SCH (08:07)
[2017-12-14] MEDS: Nystatin Cream 15 GM TUBE TP SCH ×2 (08:22→20:53)
[2017-12-14] MEDS: MICONAZOLE NITRATE 57 GM TUBE TP SCH ×2 (08:22→20:50)
[2017-12-14] MEDS: Fluconazole 100 MG/50 ML 100 MG/50 ML BAG IVPB SCH (08:22)
[2017-12-14] MEDS: Insulin LISPRO 300 UNITS/3 ML VIAL SQ SCH ×4 (08:23→20:50)
[2017-12-14] MEDS: Insulin DETEMIR 100 UNIT/ML X5UNITS SQ SCH ×3 (08:23→20:52)
[2017-12-14] MEDS: Nystatin POWDER 30 GM BOTTLE TP SCH ×2 (08:23→20:53)
[2017-12-14] MEDS: QUINIDINE PO SCH (08:26)
[2017-12-14] MEDS: DEXTROMETHORPHAN HBR PO SCH (08:26)
--- NOTE | 2017-12-14 08:54 | Internal Med Progress Note ---
<Anatoliy Ramirez S - Last Filed: 12/14/17 08:50> Hospitalist Progress Note - Encounter Date of Encounter: 12/14/17 Time of Encounter: 08:51 - Subjective Interval History: Pt is seen at the bedside. She was admitted on Tuesday (12/09/17) for AMS from her group home. She was discharged the day before after being tx for sepsis 2/2 UTI and had to be intubated for acute respiratory failure. Pt later developed DVT and was put on anicoag, which was d/c'd secondary to hematuria. She was sent back and found to have an NSTEMI with troponin peak at 2.16 , UTI and TENISHA with CKD 3 The patient mentation is slightly better today. She is oriented to self, not time or place. She is able to speak more today and is able to tell me yes and no to short questions. She denies chest pain, SOB, abd pain, N/V/D. Urine is much less milky today, no blood noted in cath bag. Pt complains of left heel pain, there seems to be a small ulcer that is not changed since admission. - Exam Vitals: Temp Pulse Resp BP Pulse Ox 98.0 F 86 18 118/60 95 12/14/17 07:06 12/14/17 07:06 12/14/17 07:06 12/14/17 07:06 12/14/17 07:06 Exam: General - disscheveled, oriented to person, NAD Cardio - tacycardia, s1s2, regular rhythm, no murmurs lungs - Diminished BS b/l, no wheezing, no crackles, no rales abd - NTND, no rebound or guarding, obese extremities - stage 1 pressure ulcers B/L heels, edema +.. No cellulites skin - venous stasis B/L LE Psych: Depressed, catatonic appearance, more awake today - Assessment and Plan (1) Sepsis Current Visit: Yes Status: Acute Assessment and Plan: Does not currently meet sepsis criteria -HR 86 -RR 18, BP stable -WBC 9.3 Blood cx grew s epidermidis, most likely a contaminate -urine has minimal milky consistency to it, hematuria has resolved Plan: -continue Cefepime day 6, flagl day 5 -ID consulted, they recommended continuing current abx -vancomycin discontinued 12/10/17 -repeat blood cx pending -montior CBC (2) NSTEMI (non-ST elevated myocardial infarction) Current Visit: Yes Status: Acute Assessment and Plan: Most likely demand ischemia type II -2/2 sepsis with UTI/pneumonia EKG negative for acute ischemic changes, ST elevation Plan: -d/c heparin drip (12/12/17) -ASA - Lopressor IVP -Toprol XL 25mg PO daily -continue rouvastatin -cardiology consulted, recommend medical management -cardiology restarted Plavix (12/13/17) (3) DVT prophylaxis Current Visit: Yes Status: Acute Assessment and Plan: 5000u SQ heparin, d/c heparin drip (4) Acute kidney injury superimposed on chronic kidney disease Current Visit: Yes Status: Acute Assessment and Plan: Creatinine on admission was 3.48 (12/09/17) -12/11/17: 3.83 ----> 12/12/17 creatinine 3.76 -----> creatinine 12/13/17 : 3.90 --- > 4.0 (12/14/17) -baseline creatinine < 3 Patient was given IV fluids for 2 days with minimal improvement -pt also has CHF with LVEF 30% and has some volume overload Retroperitoneal US was unremarkable I&O: Intake - 110mL Output - 150 mL Balance -40 mL [place] cath output - 150mL Plan: -worsening renal fxn most likely 2/2 sepsis -nephro consulted, says no indifcation for acute hemodialysis at this time -lactated ringers discontinued -hold nephrotoxic agents -monitor CMP -strict I&O's, fluid restriction diet 1.5 L (5) Hypertension Current Visit: No Status: Chronic Assessment and Plan: BP 118/60 -adequate control - home amlodipine 10mg (6) Type 2 diabetes mellitus Current Visit: No Status: Chronic Assessment and Plan: Will change ISS to high dose -glucose this AM 286, difficult to control -increase 5U levemir to 10U (7) Chronic systolic heart failure Current Visit: No Status: Chronic Assessment and Plan: Last ECHO was in 2017 -LVEF at that time was 30% -Not in acute exacerbation 2 D ECHO - showed LVEF 30% I&O: Intake - 110mL Output - 150 mL Balance -40 mL [place] cath output - 150mL Plan: -diuretics held 2/2 TENISHA -strict I&O's (8) Pneumonia Current Visit: No Status: Suspected Assessment and Plan: CXR/CT was concerning for infiltrates on B/L basal regions -?aspiration pneumonia Blood cx grew s epidermidis Plan: -continue cefepime day 6 for psuedomonas/gram(+) and flagyl day 5 for anaerobic coverage -puree diet for now to avoid aspiration (9) UTI (urinary tract infection) Current Visit: Yes Status: Acute Assessment and Plan: UA showed large leukocyte esterase, 30-50 RBC, TNTC WBC Pt was recently admitted for hematuria/sepsis 2/2 UTI and was tx with Vanc and Cefepime, as per ID -has had shonna in the past in urine -still "milky" consistency of urine -hematuria resolved Urine cx = yeast species Blood cx - s epi and g(+) rods Plan: - Cefepime day 6 and Diflucan 5 -repeat blood cx pending -ID consulted, agreed with current abx choice (10) Obesity (BMI 30-39.9) Current Visit: No Status: Chronic Assessment and Plan: BMI is 41.9 (11) Catatonia Current Visit: Yes Status: Acute Assessment and Plan: Pt more interactive today Psych consulted saw pt, she doesn't want ECT or inpt psych treatment. They recommend Ativan 0.5 mg by mouth 3 times a day and 5 mg at bedtime. Plan: -Nudexta started -puree diet, tolerating -continue Ativan as per psych recommendations (12) Shonna infection Current Visit: Yes Status: Acute Assessment and Plan: Pt has shonna in the mouth and under skin folds -nystatin swish and spit -topical nystatin for skin folds (13) Chronic anemia Current Visit: No Status: Chronic Assessment and Plan: Hemoglobin today 8.6 -On admission 9.0, HD 3 7.9 -stable H&H -MCV 91 -prealbumin 10.6 -most likely nutritional deficiency in nature and chronic dz -Iron 36, Iron % sat 20, transferrin 130 -continue home ferrous sulfate - Time Spent with Patient Total time spent is greater than 50% in coordination of care (as documented) at patient's floor/unit and/or counseling patient: less than 15 minutes Plan of Care Discussed with: patient Internal Medicine: Result - Labs CBC & Chem 7: 12/14/17 05:32 12/14/17 05:32 Labs: Short CBC 12/14/17 Range/Units 05:32 WBC 9.3 (4.3-11.1) K/mcL Hgb 8.4 L (11.5-15.4) g/dL Hct 26.7 L (35.3-44.9) % Plt Count 320 (140-400) K/mcL Neutrophils # 5.3 (1.6-8.9) K/mcL BMP 12/13/17 12/14/17 08:23 05:32 Sodium 138 139 Potassium 4.1 4.9 Chloride 104 107 Carbon Dioxide 24 21 L BUN 58 H 60 H Creatinine 3.90 H 4.00 H Glucose 244 H 286 H Calcium 8.4 L 8.3 L Liver Function 12/13/17 12/14/17 Range/Units 08:23 05:32 Total Bilirubin 0.5 0.4 (0.3-1.0) mg/dL AST 12 L 15 (13-39) Units/L ALT 12 13 (7-52) Units/L Alkaline Phosphatase 119 H 124 H (34-104) Units/L Albumin 2.6 L 2.4 L (3.5-5.7) g/dL - ABG Interpretation ABG results: PT/INR, D-dimer PT 15.6 Seconds (9.4-12.1) H 12/10/17 02:55 - Impressions Impressions Chest CT 12/13/17 00:00 IMPRESSION: Moderate bilateral pleural effusions, dependent consolidation and scattered ground-glass opacities. Findings likely represent pulmonary edema, though superimposed pneumonia remains a possibility. D/ / Dewayne Parmar MD / Dewayne Parmar MD Interpreting Provider: Dewayne Parmar MD - VTE Documentation of Mechanical Device: Intermittent pneumatic compression device Consult Discharge Plan - Plan Instructions: BiPAP, Peripatologist (GEN) Referrals: Wael Lam DO [Primary Care Provider] - (PATIENT IS GOING TO [facility] NO PCP APPOINTMENT NEEDED) <Isabel Rocha - Last Filed: 12/14/17 17:58> Hospitalist Progress Note - Encounter Date of Encounter: 12/14/17 - Exam Vitals: Temp Pulse Resp BP Pulse Ox 98.2 F 70 16 105/61 92 12/14/17 15:44 12/14/17 15:44 12/14/17 15:44 12/14/17 15:44 12/14/17 15:44 - Assessment and Plan (1) DVT prophylaxis Current Visit: Yes Status: Acute (2) Acute kidney injury superimposed on chronic kidney disease Current Visit: Yes Status: Acute (3) Hypertension Current Visit: No Status: Chronic (4) Type 2 diabetes mellitus Current Visit: No Status: Chronic (5) Chronic systolic heart failure Current Visit: No Status: Chronic (6) Pneumonia Current Visit: No Status: Suspected (7) Sepsis Current Visit: Yes Status: Acute (8) UTI (urinary tract infection) Current Visit: Yes Status: Acute (9) Obesity (BMI 30-39.9) Current Visit: No Status: Chronic (10) NSTEMI (non-ST elevated myocardial infarction) Current Visit: Yes Status: Acute (11) Catatonia Current Visit: Yes Status: Acute (12) Shonna infection Current Visit: Yes Status: Acute (13) Chronic anemia Current Visit: No Status: Chronic - Time Spent with Patient Total time spent is greater than 50% in coordination of care (as documented) at patient's floor/unit and/or counseling patient: Internal Medicine: Result - Labs CBC & Chem 7: 12/14/17 05:32 12/14/17 05:32 Labs: Short CBC 12/14/17 Range/Units 05:32 WBC 9.3 (4.3-11.1) K/mcL Hgb 8.4 L (11.5-15.4) g/dL Hct 26.7 L (35.3-44.9) % Plt Count 320 (140-400) K/mcL Neutrophils # 5.3 (1.6-8.9) K/mcL BMP 12/14/17 05:32 Sodium 139 Potassium 4.9 Chloride 107 Carbon Dioxide 21 L BUN 60 H Creatinine 4.00 H Glucose 286 H Calcium 8.3 L Liver Function 12/14/17 Range/Units 05:32 Total Bilirubin 0.4 (0.3-1.0) mg/dL AST 15 (13-39) Units/L ALT 13 (7-52) Units/L Alkaline Phosphatase 124 H (34-104) Units/L Albumin 2.4 L (3.5-5.7) g/dL - ABG Interpretation ABG results: PT/INR, D-dimer PT 15.6 Seconds (9.4-12.1) H 12/10/17 02:55 - Impressions Impressions Chest CT 12/13/17 00:00 IMPRESSION: Moderate bilateral pleural effusions, dependent consolidation and scattered ground-glass opacities. Findings likely represent pulmonary edema, though superimposed pneumonia remains a possibility. D/ / Dewayne Parmar MD / Dewayne Parmar MD Interpreting Provider: Dewayne Parmar MD Guidance Ultrasound 12/14/17 00:00 IMPRESSION: 1. Right internal jugular vein temporary dialysis catheter placement as discussed above. D/ / Zachery Lake MD / Zachery Lake MD Interpreting Provider: Zachery Lake MD Insertion Non-Tunneled Catheter 12/14/17 00:00 IMPRESSION: 1. Right internal jugular vein temporary dialysis catheter placement as discussed above. D/ / Zachery Lake MD / Zachery Lake MD Interpreting Provider: Zachery Lake MD - Attending Attestation I examined this patient and my medical decision-making was reviewed with the Resident Physician. I agree with the documented findings, disposition and treatment plan as described except to the extent set forth below. <Anatoliy Ramirez S - Last Filed: 12/14/17 08:50> (1) Sepsis Qualifiers: Sepsis type: sepsis due to unspecified organism Qualified Code(s): A41.9 - Sepsis, unspecified organism (5) Hypertension Qualifiers: Hypertension type: essential hypertension Qualified Code(s): I10 - Essential (primary) hypertension (6) Type 2 diabetes mellitus Qualifiers: Diabetes mellitus long-term insulin use: with long-term use Diabetes mellitus complication status: with kidney complications Diabetes mellitus complication detail: with chronic kidney disease Chronic kidney disease stage: stage 4 (severe) Qualified Code(s): E11.22 - Type 2 diabetes mellitus with diabetic chronic kidney disease; N18.4 - Chronic kidney disease, stage 4 (severe ); Z79.4 - medical terminologist (current) use of insulin (8) Pneumonia Qualifiers: Pneumonia type: due to unspecified organism Laterality: right Lung location : lower lobe of lung Qualified Code(s): J18.1 - Lobar pneumonia, unspecified organism (9) UTI (urinary tract infection) Qualifiers: Urinary tract infection type: site unspecified Hematuria presence: without hematuria Qualified Code(s): N39.0 - Urinary tract infection, site not specified <Isabel Rocha - Last Filed: 12/14/17 17:58> (3) Hypertension Qualifiers: Hypertension type: essential hypertension Qualified Code(s): I10 - Essential (primary) hypertension (4) Type 2 diabetes mellitus Qualifiers: Diabetes mellitus long-term insulin use: with terminal computer operator use Diabetes mellitus complication status: with kidney complications Diabetes mellitus complication detail: with chronic kidney disease Chronic kidney disease stage: stage 4 (severe) Qualified Code(s): E11.22 - Type 2 diabetes mellitus with diabetic chronic kidney disease; N18.4 - Chronic kidney disease, stage 4 (severe ); Z79.4 - FDC (current) use of insulin (6) Pneumonia Qualifiers: Pneumonia type: due to unspecified organism Laterality: right Lung location : lower lobe of lung Qualified Code(s): J18.1 - Lobar pneumonia, unspecified organism (7) Sepsis Qualifiers: Sepsis type: sepsis due to unspecified organism Qualified Code(s): A41.9 - Sepsis, unspecified organism (8) UTI (urinary tract infection) Qualifiers: Urinary tract infection type: site unspecified Hematuria presence: without hematuria Qualified Code(s): N39.0 - Urinary tract infection, site not specified
[2017-12-14] MEDS ORDERED: Furosemide 40 MG/4 ML VIAL IVP ONE (10:14)
--- NOTE | 2017-12-14 10:58 | Infectious Disease Progress No ---
Date of Encounter: 12/14/17 Time of Encounter: 10:15 - Assessment and Plan (1) Severe sepsis Current Visit: Yes Status: Resolved No longer meets sepsis criteria. Fever, tachypnea, and leukocytosis are resolved. On admission, met 4 SIRS criteria with fever, tachycardia, tachypnea, and leukocytosis. Possibly secondary to candiduria/pneumonia. Uric acid was normal. Amylase and lipase are normal. Blood culture drawn 12/09 1 out of 2 is positive for Staph epidermidis. Likely contaminant, will not treat. Repeat blood cultures drawn 12/12 are NGTD. Continue cefepime, flagyl, diflucan. Monitor renal function and for drug toxicity and dose-adjust antibiotics. (2) Candiduria Current Visit: Yes Status: Acute Urinalysis showed negative nitrite, large leukocyte esterase, and many urine bacteria. High protein, large blood, high RBC, and high WBC. Urine culture 12/10 showed yolanda albicans. Continue diflucan. (3) Pneumonia Current Visit: No Status: Suspected Legionella and Strep pneumoniae antigens are negative. CT abd/pelvis showed persistent bibasilar airspace disease, atelectasis vs pneumonia. CT chest showed moderate bilateral pleural effusion associated with dependent consolidation. Scattered ground glass opacity. Likely pulmonary edema, but superimposed pneumonia is possibility. If concern for aspiration pneumonia, recommend swallow evaluation. Continue antibiotics as above. Qualifiers: Qualified Code(s): J18.1 - Lobar pneumonia, unspecified organism (4) Acute kidney injury superimposed on chronic kidney disease Current Visit: Yes Status: Acute CKD stage 4, baseline GFR 20. Most likely pre-renal Retroperitoneal ultrasound showed no hydronephrosis with normal renal echogenicity. Gentle hydration. Nephrology consulted and following. (5) NSTEMI (non-ST elevated myocardial infarction) Current Visit: Yes Status: Acute History of 3 vessel CAD s/p CABG. Elevated troponin at admission. Most likely demand ischemia type 2 TTE 12/10/17 showed LVEF 30%, unchanged from prior TTE 2016. Global and segmental LV systolic dysfunction. Management per Cardiology. (6) Catatonia Current Visit: Yes Status: Acute History of depression. Recent of son and [id number]. Head CT showed no acute intracranial abnormality. Ativan and memantine. Management per Psychiatry. (7) Yolanda infection Current Visit: Yes Status: Acute In mouth and under skin folds. Nystatin. Management per primary team. (8) Chronic systolic heart failure Current Visit: No Status: Chronic Pacemaker and defibrillator. TTE 12/10/17 showed LVEF 30%, unchanged from prior TTE 2016. Global and segmental LV systolic dysfunction. Management per Cardiology. (9) Atrial flutter with rapid ventricular response Current Visit: Yes Status: Acute Toprol Management per Cardiology. (10) Type 2 diabetes mellitus Current Visit: No Status: Chronic Insulin. Qualifiers: Qualified Code(s): E11.22 - Type 2 diabetes mellitus with diabetic chronic kidney disease; N18.4 - Chronic kidney disease, stage 4 (severe); Z79.4 - custodial (current) use of insulin (11) Chronic anemia Current Visit: No Status: Chronic Stable. Transfusion parameters per primary team. (12) Hypertension Current Visit: No Status: Chronic On amlodipine. Qualifiers: Qualified Code(s): I10 - Essential (primary) hypertension - Subjective Interval history: Patient seen and examined. No acute events overnight. The patient is awake and resting comfortably in bed with by her side. She is communicating today with short answers and with nodding/shaking her head. Patient is oriented to person and place, but not to time. Patient reports her butt feels sore. Denies any pain elsewhere. Denies abdominal pain. Denies cough. reports she was awake all night. States she is awake at night and sleeps in the day. He states that she's been like this for 6 months to 1 year now. Catheter bag is noted to contain yellow urine with white sediment, no blood. Infect Dis PN-Objective Data - Labs CBC & Chem 7: 12/14/17 05:32 12/14/17 05:32 Labs: Laboratory Results - last 24 hr 12/13/17 12/13/17 12/13/17 08:33 10:52 15:37 WBC RBC Hgb Hct MCV MCH MCHC RDW Plt Count MPV Immature Gran % Seg Neutrophils % Lymphocytes % Monocytes % Eosinophils % Basophils % Neutrophils # Lymphocytes # Monocytes # Eosinophils # Basophils # Nucleated RBCs/100 WBC Platelet Estimate Immature Plt Fraction Sodium Potassium Chloride Carbon Dioxide BUN Creatinine Est GFR ( Amer) Est GFR (Non-Af Amer) BUN/Creatinine Ratio Glucose POC Glucose 245 H 336 H 251 H Calculated Osmolality Calcium Total Bilirubin AST ALT Alkaline Phosphatase Serum Total Protein Albumin Globulin Albumin/Globulin Ratio Amylase Lipase 12/13/17 12/13/17 12/14/17 16:32 20:44 05:32 WBC 9.3 RBC 2.90 L Hgb 8.4 L Hct 26.7 L MCV 92.1 MCH 29.0 MCHC 31.5 L RDW 15.8 H Plt Count 320 MPV 10.5 Immature Gran % 14.2 H Seg Neutrophils % 57.1 Lymphocytes % 14.4 Monocytes % 8.2 Eosinophils % 5.3 Basophils % 0.8 Neutrophils # 5.3 Lymphocytes # 1.3 Monocytes # 0.8 Eosinophils # 0.5 Basophils # 0.1 Nucleated RBCs/100 WBC 1.0 H Platelet Estimate Normal Immature Plt Fraction 4.0 Sodium Potassium Chloride Carbon Dioxide BUN Creatinine Est GFR ( Amer) Est GFR (Non-Af Amer) BUN/Creatinine Ratio Glucose POC Glucose 227 H Calculated Osmolality Calcium Total Bilirubin AST ALT Alkaline Phosphatase Serum Total Protein Albumin Globulin Albumin/Globulin Ratio Amylase 20 L Lipase 23 12/14/17 05:32 WBC RBC Hgb Hct MCV MCH MCHC RDW Plt Count MPV Immature Gran % Seg Neutrophils % Lymphocytes % Monocytes % Eosinophils % Basophils % Neutrophils # Lymphocytes # Monocytes # Eosinophils # Basophils # Nucleated RBCs/100 WBC Platelet Estimate Immature Plt Fraction Sodium 139 Potassium 4.9 Chloride 107 Carbon Dioxide 21 L BUN 60 H Creatinine 4.00 H Est GFR ( Amer) 13 L Est GFR (Non-Af Amer) 11 L BUN/Creatinine Ratio 15 Glucose 286 H POC Glucose Calculated Osmolality 315 H Calcium 8.3 L Total Bilirubin 0.4 AST 15 ALT 13 Alkaline Phosphatase 124 H Serum Total Protein 6.4 Albumin 2.4 L Globulin 4.0 H Albumin/Globulin Ratio 0.6 L Amylase Lipase Cultures: Cultures 12/14/17 03:50 Legionella Antigen - Final Urine,[place] Streptococcus pneumoniae Antigen (M - Final 12/10/17 16:02 Urine Culture - Final Urine,[place] Yolanda albicans 12/12/17 06:29 Blood Culture - Preliminary Peripheral Venipuncture Culture is incubating and being continuously monitored for growth. Final report to follow. 12/12/17 06:16 Blood Culture - Preliminary Peripheral Venipuncture Culture is incubating and being continuously monitored for growth. Final report to follow. Serology 12/10/17 12/10/17 Range/Units 15:45 15:45 Ur Eosinophil Smear 0 (None Seen) % Urine Creatinine 79 mg/dL Urine Sodium 72.1 mEq/L - Impressions Impressions Chest CT 12/13/17 00:00 IMPRESSION: Moderate bilateral pleural effusions, dependent consolidation and scattered ground-glass opacities. Findings likely represent pulmonary edema, though superimposed pneumonia remains a possibility. D/ / Dewayne Parmar MD / Dewayne Parmar MD Interpreting Provider: Dewayne Parmar MD Exam - Constitutional Vitals: Temp Pulse Resp BP Pulse Ox 98.0 F 86 18 118/60 95 12/14/17 07:06 12/14/17 07:06 12/14/17 07:06 12/14/17 07:06 12/14/17 07:06 General appearance: cooperative, morbidly obese, no acute distress, no febrile - Head Head exam: Present: atraumatic, normal inspection, normocephalic - Eye Eye exam: Present: EOMI, normal appearance, PERRL, sclera anicteric - ENT ENT exam: Present: mucous membranes moist Additional comments: White-brown plaques on tongue. - Neck Neck exam: Present: normal inspection - Respiratory Respiratory exam: Present: CTAB. Absent: rales, respiratory distress, rhonchi, wheezes - Cardiovascular Cardiovascular exam: Present: RRR, +S1, +S2 - GI/Abdominal GI/Abdominal exam: Present: distended (obese), normal bowel sounds, soft. Absent: tenderness - Extremities Exam Extremities exam: Present: pedal edema. Absent: joint swelling, normal inspection, tenderness Additional comments: Stasis dermatitis on bilateral lower extremities. 1+ pitting edema left leg. - Neurological Exam Neurological exam: Present: alert. Absent: oriented X3 (Oriented to person and place, not to time. ) - Psychiatric Psychiatric exam: Present: flat affect - Skin Skin exam: Present: dry, intact, normal color, warm - VTE Documentation of Mechanical Device: Intermittent pneumatic compression device Consult Discharge Plan - Plan Instructions: BiPAP, Metal Riveter (GEN) Referrals: Wale Lam DO [Primary Care Provider] - (PATIENT IS GOING TO [facility] NO PCP APPOINTMENT NEEDED) - Attending Attestation I examined this patient and my medical decision-making was reviewed with the Resident Physician. I agree with the documented findings, disposition and treatment plan as described except to the extent set forth below. Patient now has a right IJ temporary dialysis catheter. She did get dialysis today. Status post swallow eval, await results Continue current treatment
[2017-12-14] MEDS ORDERED: Heparin 1,000 UNITS/500 mL 500 ML ONE (11:04)
[2017-12-14] MEDS ORDERED: *HR* Heparin 5,000 UNIT/ML VIAL ONE (12:00)
--- NOTE | 2017-12-14 12:15 | IR Procedure Note ---
Date of procedure: 12/14/17 Consent Obtained: Verbal consent Timeout: Correct patient and procedure verified, Time out performed, Skin prep completed Local anesthetic: Lidocaine 1% Indications: ARF Procedure Performed: Temp dialysis catheter placement Was there an assistant professor of marine biology present: No Results/Findings: RIJ 15.5F 20 cm temp dialysis catheter placement Estimated blood loss (cc): 0 Complications: None; Tolerated procedure well Post Procedure Treatment Plan: Monitor on floor Specimen: None
[2017-12-14 12:58] LABS: Hepatitis B Surface Antigen Nonreactive (Nonreactive)
--- NOTE | 2017-12-14 13:54 | Nephrology Progress Note ---
Date of Encounter: 12/14/17 Time of Encounter: 10:20 - Assessment and Plan (1) Acute kidney injury superimposed on chronic kidney disease Current Visit: Yes Status: Acute Acute kidney injury on CKD stage IV, baseline GFR in the 20 Serum creatinine remained poor this morning, increasing to 4.0 from 3.90. Although the patient does appear to be making approximately 1600 mL of urine per day, does not appear that she is making any progress on renal recovery at this time Additionally, the patient does have some significant pulmonary edema which cancer from recovering in terms of her respiratory function Because her kidney status is not improving, the patient is not a good candidate for long-term diuresis Spoke with the family and think that it is probably time to begin considering acute hemodialysis Consult IR for placement of temporary hemodialysis catheter Order one time dose IV Lasix, awaiting to see UOP response Plan for possible HD tomorrow (2) UTI (urinary tract infection) Current Visit: Yes Status: Acute Urine demonstrates Yolanda species on culture Management per primary team Qualifiers: Urinary tract infection type: site unspecified Hematuria presence: without hematuria Qualified Code(s): N39.0 - Urinary tract infection, site not specified (3) Elevated troponin Current Visit: Yes Status: Acute Management per cardiology (4) Dyspnea and respiratory abnormality Current Visit: Yes Status: Acute Significantly improved from prior day, no wheezing on exam Does not appear to have significant crackles or rales on examination 2 view chest x-ray did show volume overload and pulmonary edema on examination CT Chest again demonstrates sequelea of pulmonary edema We will give one time dose of IV lasix Plan for HD in the morning (5) Anemia Current Visit: No Status: Acute Patient has significant anemia, 8.4 Transfusion parameters per primary team Qualifiers: Anemia type: unspecified type Qualified Code(s): D64.9 - Anemia, unspecified Subjective Principal diagnosis: NSTEMI Interval history: The patient is resting in bed at time of examination. Her mood is poor him today. Her labs are the change from previous and the patient is now candidate for hemodialysis because she is not improving. The patient is uneasy about this but agrees to undergo placement of hemodialysis catheter. Objective - Vital Signs Vital signs: Vital Signs Temp Pulse Resp BP Pulse Ox 12/14/17 12:15 97.7 F 78 18 125/77 100 12/14/17 11:10 98.5 F 78 18 128/75 93 12/14/17 07:06 98.0 F 86 18 118/60 95 12/14/17 03:47 98.1 F 87 17 107/64 97 12/13/17 23:17 97.8 F 69 18 109/93 97 12/13/17 20:12 98.7 F 79 17 113/79 98 12/13/17 16:00 77 16 12/13/17 15:33 98.3 F 73 18 101/70 97 Intake and Output 12/13/17 12/14/17 12/14/17 23:59 07:59 15:59 Intake Total 270 / 270 110 / 110 Output Total 850 / 850 150 / 150 225 / 225 Balance -580 / -580 -40 / -40 -225 / -225 Intake: IV Fluids 150 / 150 110 / 110 Maxipime 1,000 MG In Water for inj. (sterile) 10 ML @ 300 mls/ hr IVP QPM MAGAN Rx#:[id number] Diflucan 100 MG/50 ML 100 mg In 50 / 50 50 ml @ 50 mls/hr IVPB DAILY MAGAN Rx#:[id number] Flagyl Premix 500 MG/100 ML 500 100 / 100 100 / 100 mg In 100 ml @ 100 mls/hr IVPB Q8HR MAGAN Rx#:[id number] Oral 120 / 120 Output: Catheter 850 / 850 150 / 150 225 / 225 Other: Meal Dinner Percent of Meal Consumed 100% Blood Glucose* [phone] - General Appearance Exam: General appearance: Present: chronically ill, fatigue EENT: Present: ATNC, mucous membranes dry Neck: Present: no JVD, supple Respiratory: Present: clear (ant bilat), no wheezes noted Cardiology: Present: edema (trace LE edema bilat), normal S1, normal S2 Gastrointestinal: Present: no tenderness, no guarding Integumentary: Present: warm and dry. Decubitus ulcers on b/l heels Neurologic: Present: no focal deficit, patient does not speak Musculoskeletal: Present: no deformities Psychiatric: Present: depressed - Lab 12/14/17 05:32 12/14/17 05:32 Most recent lab results Calcium 8.3 mg/dL (8.6-10.3) L 12/14/17 05:32 Phosphorus 2.1 mg/dL (2.7-4.5) L 12/10/17 00:46 Magnesium 1.9 mg/dL (1.6-2.6) 12/11/17 05:40 Urine Creatinine 79 mg/dL 12/10/17 15:45 Urine Sodium 72.1 mEq/L 12/10/17 15:45 - VTE Documentation of Mechanical Device: Intermittent pneumatic compression device Consult Discharge Plan - Plan Instructions: BiPAP, Salt Manager (GEN) Referrals: Wale Lam DO [Primary Care Provider] - (PATIENT IS GOING TO ECF NO PCP APPOINTMENT NEEDED)
[2017-12-14] MEDS: metroNIDAZOLE 500 MG TABLET PO SCH ×2 (14:27→20:52)
--- NOTE | 2017-12-14 16:33 | Cardiology Progress Note ---
Date of Encounter: 12/14/17 Time of Encounter: 14:30 Assessment and Plan (1) NSTEMI (non-ST elevated myocardial infarction) Current Visit: Yes Status: Acute Elevated troponin in the setting of TENISHA/CKD, sepsis secondary to UTI and PNA, DKA. Type II SC. Patient with known 3 vessel CAD s/p CABG, and CMP. Patient denies chest pain. Noted some SOB. TTE shows LVEF 30%. Global and segmental LV systolic dysfunction. Mildly dilated left ventricle. Atypical septal motion consistent with post-operative status. Mild-moderate mitral regurgitation. Mild tricuspid regurgitation. [facility] 01/2016- Severe three vessel CAD, 2/2 patent bypass. EF unchanged from previous TTE in 2017. Medical management recommended. Patient and family agree. Continue asa, statin, and bb. Cardiology will sign off. Call with questions. Out-pt f/u. (2) Biventricular ICD (implantable cardioverter-defibrillator) in place Current Visit: No Status: Chronic Med[employer]onic BiV ICD in place for cardiomyopathy. Device check completed showing high atrial rates. Likely 2:1 flutter per device rep. There was 65 episodes of AT/AF since 12/09/17 currently on-going. Battery within range and device functioning as programmed. Now rate controlled. (3) Cardiomyopathy Current Visit: No Status: Chronic H/o ICMP. EF unchanged this visit. Concern for fluid overload. Patient is being prepped for acute dialysis. SOB improved some. SOB multi-factoral with PNA. Here with worsening renal function. Appreciate nephrology recommendation for fluid management. Net positive 3240 ml today. Continue bb. No ACi due to kidney dysfunction. Qualifiers: Cardiomyopathy type: ischemic Qualified Code(s): I25.5 - Ischemic cardiomyopathy (4) Atrial flutter with rapid ventricular response Current Visit: Yes Status: Acute Atrial flutter with RVR seen on device interrogation. New diagnosis, ongoing since 12/09/17. HR 100-110. Increase toprol XL to 50 mg (home dose). Increase as needed. Avoid cardizem in the setting of known CMP EF 30%. In regards to half-way AC she has a history of chronic and recent intermittent gross hematuria. On heparin gtt initially and Hgb trended down. Recent DVT and unable to start AC, GFF placed. Discussed with patient and son. She is high risk for CVA. There is concern that she will not tolerate full AC. They agree and son voiced understanding. Continue asa and plavix. Discussion w patient/family: The assessment and plan as outlined above was discussed with the patient and/or family members who expressed understanding and agreement. All questions were answered. Thank you for involving us in the care of your patient. Please call with any questions. Subjective Principal diagnosis: NSTEMI Interval history: Ms. Bentley is awake on my exam. Alert and oriented x2. Oriented to time. Denies chest pain or SOB. Objective Vital Signs, Last 4 Hours Temp Pulse Resp BP Pulse Ox 12/14/17 15:44 98.2 F 70 16 105/61 92 12/14/17 14:04 98.0 F 78 16 113/65 94 12/14/17 13:45 97.9 F 80 16 123/71 93 General: Conversant, No Apparent Distress HEENT: Atraumatic, Normocephaly, Mucus Membranes Moist Neck: No JVD, Normal carotid pulses Cardiac: No Murmur, Other (Irregular) Lungs: Normal Breath Sounds, No Wheeze, Rales, Rhonchi Neuro: Alert and responsive, No focal deficits noted Abdomen: Soft, Non-Tender Skin: No rashes noted on visualized skin Musculoskeletal: No Chest Wall Tenderness, Other (genralized weakness. Unable to sit up in bed. ) Extremities: No Clubbing, No Cyanosis, Normal Pulses, Other (1= ankle edema) Results 12/14/17 05:32 12/14/17 05:32 Lab Results 12/13/17 12/14/17 12/14/17 16:32 05:32 05:32 WBC 9.3 Hgb 8.4 L Hct 26.7 L Plt Count 320 Sodium 139 Potassium 4.9 Chloride 107 Carbon Dioxide 21 L BUN 60 H Creatinine 4.00 H Glucose 286 H Calcium 8.3 L Total Bilirubin 0.4 AST 15 ALT 13 Alkaline Phosphatase 124 H Amylase 20 L Lipase 23 - Imaging and Cardiology Echo: report reviewed - EKG Interpretation EKG results cardiology: personally reviewed - VTE Documentation of Mechanical Device: Intermittent pneumatic compression device Consult Discharge Plan - Plan Instructions: BiPAP, Project Design Engineer (GEN) Referrals: Wale Lam DO [Primary Care Provider] - (PATIENT IS GOING TO [facility] NO PCP APPOINTMENT NEEDED)
[2017-12-14] MEDS: Cefepime HCl 1,000 MG in Water for inj. (sterile) 20 ML 10 ML IVP SCH (16:39)
[2017-12-15 04:55] LABS: Basophils # 0.1 K/mcL (0.0-0.2); Hematocrit 26.6 % (35.3-44.9); Mean Corpuscular HGB Conc 30.1 g/dL (31.6-35.5); Mean Corpuscular Hemoglobin 27.3 pg (28.0-33.3); Mean Corpuscular Volume 90.8 fL (83.0-100.0); Mean Platelet Volume 10.1 fL (9.4-12.4); Nucleated Red Blood Cells 0.2 /100 WBC (0); Platelet Count 351 K/mcL (140-400); Red Blood Count 2.93 M/mcL (3.82-4.97); Red Cell Distribution Width 15.9 % (11.5-14.5)
[2017-12-15] MEDS: *HR* Heparin 5,000 UNIT/ML VIAL SQ SCH ×2 (05:08→17:03)
[2017-12-15 05:15] LABS: Albumin 2.5 g/dL (3.5-5.7); Albumin/Globulin Ratio 0.6 (1.1-2.2); Bilirubin,Total 0.4 mg/dL (0.3-1.0); Calcium 8.6 mg/dL (8.6-10.3); Globulin 3.9 g/dL (2.4-3.5); Potassium 4.3 mEq/L (3.5-5.1); Total Protein 6.4 g/dL (6.4-8.9)
[2017-12-15 06:45] LABS: Eosinophils # 0.5 K/mcL (0.0-0.6); Lymphocytes # 1.9 K/mcL (0.6-4.6); Monocytes # 0.4 K/mcL (0.0-1.3); Neutrophils # 6.3 K/mcL (1.6-8.9); Platelet Estimate Normal (Normal)
[2017-12-15] MEDS ORDERED: 0.9 % Sodium Chloride 250 ML IVC PRN (07:42)
[2017-12-15] MEDS ORDERED: *HR* Heparin 10,000 UNIT/10 ML VIAL IV PRN (07:42)
[2017-12-15] MEDS ORDERED: 0.9 % Sodium Chloride 1,000 ML PRIME SCH (07:45)
[2017-12-15] MEDS: Insulin LISPRO 300 UNITS/3 ML VIAL SQ SCH ×4 (08:28→21:01)
--- NOTE | 2017-12-15 08:29 | Internal Med Progress Note ---
<Anatoliy Ramirez S - Last Filed: 12/15/17 11:57> Hospitalist Progress Note - Encounter Date of Encounter: 12/15/17 Time of Encounter: 08:26 - Subjective Interval History: Pt is seen at the bedside. She was admitted on Tuesday (12/09/17) for AMS from her group home. She was discharged the day before after being tx for sepsis 2/2 UTI and had to be intubated for acute respiratory failure. Pt later developed DVT and was put on anicoag, which was d/c'd secondary to hematuria. She was sent back and found to have an NSTEMI with troponin peak at 2.16 , UTI and TENISHA with CKD 3 The patient mentation is slightly better today. She is oriented to self, not time or place. -She is able to speak more today and is able to tell me yes and no to short questions, able to deny chest pain, SOB, abd pain, N/V/D. Urine isn't milky today, hematuria resolved Nurses report no overnight events. - Exam Vitals: Temp Pulse Resp BP Pulse Ox 98.2 F 76 18 130/71 99 12/15/17 06:44 12/15/17 06:44 12/15/17 06:44 12/15/17 06:44 12/15/17 06:44 Exam: General - disscheveled, oriented to person, NAD Cardio -regular rate, s1s2, regular rhythm, no murmurs lungs - Diminished BS b/l, no wheezing, no crackles, no rales abd - NTND, no rebound or guarding, obese extremities - stage 1 pressure ulcers B/L heels, edema +.. No cellulites skin - venous stasis B/L LE Psych: Depressed, catatonic appearance, more awake today - Assessment and Plan (1) Sepsis Current Visit: Yes Status: Acute Assessment and Plan: Does not currently meet sepsis criteria -HR 76 -RR 18, BP stable -WBC 9.1 Blood cx grew s epidermidis, most likely a contaminate -urine has minimal milky consistency to it, hematuria has resolved Plan: -continue Cefepime day 7, flagl day 6 -ID consulted, they recommended continuing current abx -vancomycin discontinued 12/10/17 -repeat blood cx pending -montior CBC (2) NSTEMI (non-ST elevated myocardial infarction) Current Visit: Yes Status: Acute Assessment and Plan: Most likely demand ischemia type II -2/2 sepsis with UTI/pneumonia Pt with 3 vessel CAD, s/p CABG EKG negative for acute ischemic changes, ST elevation LVEF 30%, LV systolic dysfxn, mildly dilated LV, atypcal septal motion consistent with postop status Plan: -d/c heparin drip (12/12/17) -ASA - Lopressor IVP -Toprol XL 25mg PO daily -continue rouvastatin -cardiology signed off, recommend medical management -cardiology restarted Plavix (12/13/17) (3) DVT prophylaxis Current Visit: Yes Status: Acute Assessment and Plan: 5000u SQ heparin, d/c heparin drip (4) Acute kidney injury superimposed on chronic kidney disease Current Visit: Yes Status: Acute Assessment and Plan: Creatinine on admission was 3.48 (12/09/17) -12/11/17: 3.83 ----> 12/12/17 creatinine 3.76 -----> creatinine 12/13/17 : 3.90 --- > 4.0 (12/14&) -baseline creatinine < 3 Patient was given IV fluids for 2 days with minimal improvement -pt also has CHF with LVEF 30% and has some volume overload Retroperitoneal US was unremarkable I&O: Intake - 260mL Output - 1670 mL Balance -1440 mL Elizondo cath output - 1670mL Plan: -worsening renal fxn most likely 2/2 sepsis -lactated ringers discontinued -hold nephrotoxic agents -monitor CMP -strict I&O's, fluid restriction diet 1.5 L -nephro consulted, temporary HD cath placed by IR, pt to have HD today as per nephrology -pt given a 1 time dose of Lasix as per nephrology, output increased (5) Hypertension Current Visit: No Status: Chronic Assessment and Plan: BP 130/71 -adequate control - home amlodipine 10mg (6) Type 2 diabetes mellitus Current Visit: No Status: Chronic Assessment and Plan: Will change ISS to high dose -glucose this AM 150, difficult to control -increased 5U levemir to 10U (12/14/17) (7) Chronic systolic heart failure Current Visit: No Status: Chronic Assessment and Plan: Last ECHO was in 2017 -LVEF at that time was 30% -Not in acute exacerbation 2 D ECHO - showed LVEF 30% I&O: Intake - 260mL Output - 1670 mL Balance -1440 mL Elizondo cath output - 1670mL Plan: -diuretics held 2/2 TENISHA; nephro gave a 1x dose of IV lasix (12/14/17) -strict I&O's -cardiac/diabetic diet (8) Pneumonia Current Visit: No Status: Ruled-out Assessment and Plan: CXR/CT was concerning for infiltrates on B/L basal regions -?aspiration pneumonia Blood cx grew s epidermidis Plan: -continue cefepime day 7 for psuedomonas/gram(+) and flagyl day 6 for anaerobic coverage -speech evaluation (9) UTI (urinary tract infection) Current Visit: Yes Status: Acute Assessment and Plan: UA showed large leukocyte esterase, 30-50 RBC, TNTC WBC Pt was recently admitted for hematuria/sepsis 2/2 UTI and was tx with Vanc and Cefepime, as per ID -has had shonna in the past in urine -milky appearance of urine has significantly improved -hematuria resolved Urine cx = yeast species Blood cx - s epi and g(+) rods Plan: - Cefepime day 7 and Diflucan 6 -repeat blood cx pending -ID consulted, agreed with current abx choice (10) Obesity (BMI 30-39.9) Current Visit: No Status: Chronic Assessment and Plan: BMI is 42.5 (11) Catatonia Current Visit: Yes Status: Acute Assessment and Plan: Pt more interactive today Psych consulted saw pt, she doesn't want ECT or inpt psych treatment. They recommend Ativan 0.5 mg by mouth 3 times a day and 5 mg at bedtime was discontinued 12/14/17 Plan: -Nudexta started -puree diet, tolerating -discontinue Ativan as per psych recommendations (12) Shonna infection Current Visit: Yes Status: Acute Assessment and Plan: Pt has shonna in the mouth and under skin folds -nystatin swish and spit -topical nystatin for skin folds (13) Chronic anemia Current Visit: No Status: Chronic Assessment and Plan: Hemoglobin today 8.6 -On admission 9.0, HD 3 7.9 -stable H&H -MCV 91 -prealbumin 10.6 -most likely nutritional deficiency in nature and chronic dz -Iron 36, Iron % sat 20, transferrin 130 -continue home ferrous sulfate DVT Prophylaxis: sq heparin - Time Spent with Patient Total time spent is greater than 50% in coordination of care (as documented) at patient's floor/unit and/or counseling patient: less than 15 minutes Plan of Care Discussed with: patient Internal Medicine: Result - Labs CBC & Chem 7: 12/15/17 04:36 12/15/17 04:36 Labs: Short CBC 12/15/17 Range/Units 04:36 WBC 9.1 (4.3-11.1) K/mcL Hgb 8.0 L (11.5-15.4) g/dL Hct 26.6 L (35.3-44.9) % Plt Count 351 (140-400) K/mcL Neutrophils # 6.3 (1.6-8.9) K/mcL BMP 12/15/17 04:36 Sodium 141 Potassium 4.3 Chloride 109 H Carbon Dioxide 23 BUN 59 H Creatinine 4.00 H Glucose 150 H Calcium 8.6 Liver Function 12/15/17 Range/Units 04:36 Total Bilirubin 0.4 (0.3-1.0) mg/dL AST 13 (13-39) Units/L ALT 10 (7-52) Units/L Alkaline Phosphatase 112 H (34-104) Units/L Albumin 2.5 L (3.5-5.7) g/dL - ABG Interpretation ABG results: PT/INR, D-dimer PT 15.6 Seconds (9.4-12.1) H 12/10/17 02:55 - Impressions Impressions Guidance Ultrasound 12/14/17 00:00 IMPRESSION: 1. Right internal jugular vein temporary dialysis catheter placement as discussed above. D/ / Zachery Lake MD / Zachery Lake MD Interpreting Provider: Zachery Lake MD Insertion Non-Tunneled Catheter 12/14/17 00:00 IMPRESSION: 1. Right internal jugular vein temporary dialysis catheter placement as discussed above. D/ / Zachery Lake MD / Zachery Lake MD Interpreting Provider: Zachery Lake MD - VTE Documentation of Mechanical Device: Intermittent pneumatic compression device Consult Discharge Plan - Plan Instructions: BiPAP, Program[employer] (GEN) Referrals: Wale Lam DO [Primary Care Provider] - (PATIENT IS GOING TO ECF NO PCP APPOINTMENT NEEDED) <Isabel Rocha - Last Filed: 12/15/17 17:48> Hospitalist Progress Note - Encounter Date of Encounter: 12/15/17 - Exam Vitals: Temp Pulse Resp BP Pulse Ox 98.2 F 69 18 100/49 99 12/15/17 16:03 12/15/17 16:03 12/15/17 16:03 12/15/17 16:03 12/15/17 16:03 - Assessment and Plan (1) DVT prophylaxis Current Visit: Yes Status: Acute (2) Acute kidney injury superimposed on chronic kidney disease Current Visit: Yes Status: Acute (3) Hypertension Current Visit: No Status: Chronic (4) Type 2 diabetes mellitus Current Visit: No Status: Chronic (5) Chronic systolic heart failure Current Visit: No Status: Chronic (6) Pneumonia Current Visit: No Status: Ruled-out (7) Sepsis Current Visit: Yes Status: Acute (8) UTI (urinary tract infection) Current Visit: Yes Status: Acute (9) Obesity (BMI 30-39.9) Current Visit: No Status: Chronic (10) NSTEMI (non-ST elevated myocardial infarction) Current Visit: Yes Status: Acute (11) Catatonia Current Visit: Yes Status: Acute (12) Shonna infection Current Visit: Yes Status: Acute (13) Chronic anemia Current Visit: No Status: Chronic - Time Spent with Patient Total time spent is greater than 50% in coordination of care (as documented) at patient's floor/unit and/or counseling patient: Internal Medicine: Result - Labs CBC & Chem 7: 12/15/17 04:36 12/15/17 04:36 Labs: Short CBC 12/15/17 Range/Units 04:36 WBC 9.1 (4.3-11.1) K/mcL Hgb 8.0 L (11.5-15.4) g/dL Hct 26.6 L (35.3-44.9) % Plt Count 351 (140-400) K/mcL Neutrophils # 6.3 (1.6-8.9) K/mcL BMP 12/15/17 04:36 Sodium 141 Potassium 4.3 Chloride 109 H Carbon Dioxide 23 BUN 59 H Creatinine 4.00 H Glucose 150 H Calcium 8.6 Liver Function 12/15/17 Range/Units 04:36 Total Bilirubin 0.4 (0.3-1.0) mg/dL AST 13 (13-39) Units/L ALT 10 (7-52) Units/L Alkaline Phosphatase 112 H (34-104) Units/L Albumin 2.5 L (3.5-5.7) g/dL - ABG Interpretation ABG results: PT/INR, D-dimer PT 15.6 Seconds (9.4-12.1) H 12/10/17 02:55 - Attending Attestation I examined this patient and my medical decision-making was reviewed with the Resident Physician. I agree with the documented findings, disposition and treatment plan as described except to the extent set forth below. <Anatoliy Ramirez S - Last Filed: 12/15/17 11:57> (1) Sepsis Qualifiers: Sepsis type: sepsis due to unspecified organism Qualified Code(s): A41.9 - Sepsis, unspecified organism (5) Hypertension Qualifiers: Hypertension type: essential hypertension Qualified Code(s): I10 - Essential (primary) hypertension (6) Type 2 diabetes mellitus Qualifiers: Diabetes mellitus keno terminal operator insulin use: with jail use Diabetes mellitus complication status: with kidney complications Diabetes mellitus complication detail: with chronic kidney disease Chronic kidney disease stage: stage 4 (severe) Qualified Code(s): E11.22 - Type 2 diabetes mellitus with diabetic chronic kidney disease; N18.4 - Chronic kidney disease, stage 4 (severe ); Z79.4 - custodial (current) use of insulin (8) Pneumonia Qualifiers: Pneumonia type: due to unspecified organism Laterality: right Lung location : lower lobe of lung Qualified Code(s): J18.1 - Lobar pneumonia, unspecified organism (9) UTI (urinary tract infection) Qualifiers: Urinary tract infection type: site unspecified Hematuria presence: without hematuria Qualified Code(s): N39.0 - Urinary tract infection, site not specified <Isabel Rocha - Last Filed: 12/15/17 17:48> (3) Hypertension Qualifiers: Hypertension type: essential hypertension Qualified Code(s): I10 - Essential (primary) hypertension (4) Type 2 diabetes mellitus Qualifiers: Diabetes mellitus keno terminal operator insulin use: with jail use Diabetes mellitus complication status: with kidney complications Diabetes mellitus complication detail: with chronic kidney disease Chronic kidney disease stage: stage 4 (severe) Qualified Code(s): E11.22 - Type 2 diabetes mellitus with diabetic chronic kidney disease; N18.4 - Chronic kidney disease, stage 4 (severe ); Z79.4 - custodial (current) use of insulin (6) Pneumonia Qualifiers: Pneumonia type: due to unspecified organism Laterality: right Lung location : lower lobe of lung Qualified Code(s): J18.1 - Lobar pneumonia, unspecified organism (7) Sepsis Qualifiers: Sepsis type: sepsis due to unspecified organism Qualified Code(s): A41.9 - Sepsis, unspecified organism (8) UTI (urinary tract infection) Qualifiers: Urinary tract infection type: site unspecified Hematuria presence: without hematuria Qualified Code(s): N39.0 - Urinary tract infection, site not specified
[2017-12-15] MEDS: Metoprolol XL (24 HR) Succ 25 MG TAB.ER.24H PO SCH (08:31)
[2017-12-15] MEDS: Insulin DETEMIR 100 UNIT/ML X5UNITS SQ SCH ×2 (08:31→21:01)
[2017-12-15] MEDS: metroNIDAZOLE 500 MG TABLET PO SCH ×3 (08:32→21:01)
[2017-12-15] MEDS: Fluconazole 100 MG TABLET PO SCH (08:32)
[2017-12-15] MEDS: amLODIPine 5 MG TABLET PO SCH (08:32)
[2017-12-15] MEDS: Aspirin 325 MG TABLET PO SCH (08:32)
[2017-12-15] MEDS: Ascorbic Acid 500 MG TABLET PO SCH ×2 (08:32→21:00)
[2017-12-15] MEDS: Nystatin SUSP 5 ML UD.LIQ PO SCH ×4 (08:33→21:00)
[2017-12-15] MEDS: QUINIDINE PO SCH (08:33)
[2017-12-15] MEDS: DEXTROMETHORPHAN HBR PO SCH (08:33)
[2017-12-15] MEDS: Nystatin POWDER 30 GM BOTTLE TP SCH ×2 (08:33→21:02)
[2017-12-15] MEDS: Nystatin Cream 15 GM TUBE TP SCH ×2 (08:34→21:02)
[2017-12-15] MEDS: MICONAZOLE NITRATE 57 GM TUBE TP SCH ×2 (08:34→21:01)
--- NOTE | 2017-12-15 10:08 | Infectious Disease Progress No ---
Date of Encounter: 12/15/17 Time of Encounter: 09:00 - Assessment and Plan (1) Severe sepsis Current Visit: Yes Status: Resolved No longer meets sepsis criteria. Fever, tachypnea, and leukocytosis are resolved. On admission, met 4 SIRS criteria with fever, tachycardia, tachypnea, and leukocytosis. Possibly secondary to candiduria/pneumonia. Uric acid was normal. Amylase and lipase are normal. Blood culture drawn 12/09 1 out of 2 is positive for Staph epidermidis. Likely contaminant, will not treat. Repeat blood cultures drawn 12/12 are NGTD. Continue cefepime, flagyl, diflucan. Monitor renal function and for drug toxicity and dose-adjust antibiotics. (2) Candiduria Current Visit: Yes Status: Acute Urinalysis showed negative nitrite, large leukocyte esterase, and many urine bacteria. High protein, large blood, high RBC, and high WBC. Urine culture 12/10 showed yolanda albicans. Continue diflucan. (3) Pneumonia Current Visit: No Status: Ruled-out Legionella and Strep pneumoniae antigens are negative. CT abd/pelvis showed persistent bibasilar airspace disease, atelectasis vs pneumonia. CT chest showed moderate bilateral pleural effusion associated with dependent consolidation. Scattered ground glass opacity. Likely pulmonary edema, but superimposed pneumonia is possibility. Barium swallow study performed 12/02 showed grossly normal oral swallowing, no laryngeal penetration or aspiration. Continue antibiotics as above. Qualifiers: Pneumonia type: due to unspecified organism Laterality: right Lung location: lower lobe of lung Qualified Code(s): J18.1 - Lobar pneumonia, unspecified organism (4) Acute kidney injury superimposed on chronic kidney disease Current Visit: Yes Status: Acute Slowly worsening. CKD stage 4, baseline GFR 20. Most likely pre-renal Retroperitoneal ultrasound showed no hydronephrosis with normal renal echogenicity. Gentle hydration. Hemodialysis today. Management per Nephrology. (5) NSTEMI (non-ST elevated myocardial infarction) Current Visit: Yes Status: Acute History of 3 vessel CAD s/p CABG. Elevated troponin at admission. Most likely demand ischemia type 2 TTE 12/10/17 showed LVEF 30%, unchanged from prior TTE 2016. Global and segmental LV systolic dysfunction. Management per Cardiology. (6) Catatonia Current Visit: Yes Status: Acute History of depression. Recent of son and [id number]. Head CT showed no acute intracranial abnormality. Ativan and memantine. Management per Psychiatry. (7) Yolanda infection Current Visit: Yes Status: Acute In mouth and under skin folds. Nystatin. Management per primary team. (8) Chronic systolic heart failure Current Visit: No Status: Chronic Pacemaker and defibrillator. TTE 12/10/17 showed LVEF 30%, unchanged from prior TTE 2016. Global and segmental LV systolic dysfunction. Management per Cardiology. (9) Atrial flutter with rapid ventricular response Current Visit: Yes Status: Acute Toprol Management per Cardiology. (10) Type 2 diabetes mellitus Current Visit: No Status: Chronic Insulin. 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 Transfusion parameters per primary team. (12) Hypertension Current Visit: No Status: Chronic On amlodipine. Qualifiers: Hypertension type: essential hypertension Qualified Code(s): I10 - Essential (primary) hypertension - Subjective Interval history: Patient seen and examined. No acute events overnight. The patient is awake and resting comfortably in bed with by her side. She is communicating with short answers and with nodding/shaking her head. Patient is oriented to person and place, but not to time. states that patient "spit blood." Nurse reports patient had blood tinged sputum, sputum was clear-yellow. Patient denies cough. states patient slept part of last night. Patient denies any complaints, denies any pain. Denies chest pain, shortness of breath. Denies abdominal pain. Infect Dis PN-Objective Data - Labs CBC & Chem 7: 12/16/17 06:15 12/16/17 06:15 Labs: Laboratory Results - last 24 hr 12/14/17 12/14/17 12/14/17 07:06 11:03 11:06 WBC RBC Hgb Hct MCV MCH MCHC RDW Plt Count MPV Seg Neutrophils % Band Neutrophils % Lymphocytes % Monocytes % Eosinophils % Basophils % Neutrophils # Lymphocytes # Monocytes # Eosinophils # Basophils # Nucleated RBCs/100 WBC Platelet Estimate Sodium Potassium Chloride Carbon Dioxide BUN Creatinine Est GFR ( Amer) Est GFR (Non-Af Amer) BUN/Creatinine Ratio Glucose POC Glucose 316 H 283 H Calculated Osmolality Calcium Total Bilirubin AST ALT Alkaline Phosphatase Serum Total Protein Albumin Globulin Albumin/Globulin Ratio Hep Bs Antigen Nonreactive Hep Bs Antibody 0.00 12/14/17 12/14/17 12/15/17 16:15 20:31 04:36 WBC 9.1 RBC 2.93 L Hgb 8.0 L Hct 26.6 L MCV 90.8 MCH 27.3 L MCHC 30.1 L RDW 15.9 H Plt Count 351 MPV 10.1 Seg Neutrophils % 66.0 Band Neutrophils % 3.0 Lymphocytes % 21.0 Monocytes % 4.0 Eosinophils % 5.0 Basophils % 1.0 Neutrophils # 6.3 Lymphocytes # 1.9 Monocytes # 0.4 Eosinophils # 0.5 Basophils # 0.1 Nucleated RBCs/100 WBC 0.2 H Platelet Estimate Normal Sodium Potassium Chloride Carbon Dioxide BUN Creatinine Est GFR ( Amer) Est GFR (Non-Af Amer) BUN/Creatinine Ratio Glucose POC Glucose 196 H 235 H Calculated Osmolality Calcium Total Bilirubin AST ALT Alkaline Phosphatase Serum Total Protein Albumin Globulin Albumin/Globulin Ratio Hep Bs Antigen Hep Bs Antibody 12/15/17 04:36 WBC RBC Hgb Hct MCV MCH MCHC RDW Plt Count MPV Seg Neutrophils % Band Neutrophils % Lymphocytes % Monocytes % Eosinophils % Basophils % Neutrophils # Lymphocytes # Monocytes # Eosinophils # Basophils # Nucleated RBCs/100 WBC Platelet Estimate Sodium 141 Potassium 4.3 Chloride 109 H Carbon Dioxide 23 BUN 59 H Creatinine 4.00 H Est GFR ( Amer) 13 L Est GFR (Non-Af Amer) 11 L BUN/Creatinine Ratio 15 Glucose 150 H POC Glucose Calculated Osmolality 311 H Calcium 8.6 Total Bilirubin 0.4 AST 13 ALT 10 Alkaline Phosphatase 112 H Serum Total Protein 6.4 Albumin 2.5 L Globulin 3.9 H Albumin/Globulin Ratio 0.6 L Hep Bs Antigen Hep Bs Antibody Cultures: Cultures 12/14/17 03:50 Legionella Antigen - Final Urine,[place] Streptococcus pneumoniae Antigen (M - Final 12/10/17 16:02 Urine Culture - Final Urine,[place] Yolanda albicans 12/12/17 06:29 Blood Culture - Preliminary Peripheral Venipuncture Culture is incubating and being continuously monitored for growth. Final report to follow. 12/12/17 06:16 Blood Culture - Preliminary Peripheral Venipuncture Culture is incubating and being continuously monitored for growth. Final report to follow. Serology 12/14/17 12/10/17 12/10/17 Range/Units 11:03 15:45 15:45 Ur Eosinophil Smear 0 (None Seen) % Urine Creatinine 79 mg/dL Urine Sodium 72.1 mEq/L Hep Bs Antigen Nonreactive (Nonreactive) Hep Bs Antibody 0.00 mIU/mL - Impressions Impressions Guidance Ultrasound 12/14/17 00:00 IMPRESSION: 1. Right internal jugular vein temporary dialysis catheter placement as discussed above. D/ / Zachery Lake MD / Zachery Lake MD Interpreting Provider: Zachery Lake MD Insertion Non-Tunneled Catheter 12/14/17 00:00 IMPRESSION: 1. Right internal jugular vein temporary dialysis catheter placement as discussed above. D/ / Zachery Lake MD / Zachery Lake MD Interpreting Provider: Zachery Lake MD Exam - Constitutional Vitals: Temp Pulse Resp BP Pulse Ox 98.2 F 76 18 130/71 99 12/15/17 06:44 12/15/17 06:44 12/15/17 06:44 12/15/17 06:44 12/15/17 06:44 General appearance: cooperative, morbidly obese, no acute distress, no febrile - Head Head exam: Present: atraumatic, normal inspection, normocephalic - Eye Eye exam: Present: EOMI, normal appearance, PERRL - ENT ENT exam: Present: mucous membranes moist Additional comments: White plaques on tongue. - Neck Neck exam: Present: normal inspection - Respiratory Respiratory exam: Present: decreased breath sounds, CTAB. Absent: rales, respiratory distress, rhonchi, wheezes - Cardiovascular Cardiovascular exam: Present: RRR, +S1, +S2 - GI/Abdominal GI/Abdominal exam: Present: distended (obese), normal bowel sounds, soft. Absent: tenderness - Extremities Exam Extremities exam: Present: normal inspection (stasis dermatitis bilaterally, no change. ), pedal edema (1+ pitting edema bilaterally ). Absent: joint swelling , tenderness - Neurological Exam Neurological exam: Present: alert. Absent: oriented X3 (Oriented to person and place, not to time. ) - Psychiatric Psychiatric exam: Present: flat affect - Skin Skin exam: Present: dry, intact, normal color, warm - VTE Documentation of Mechanical Device: Intermittent pneumatic compression device Consult Discharge Plan - Plan Instructions: BiPAP, Body Component Engineer (GEN) Referrals: Wale Lam DO [Primary Care Provider] - (PATIENT IS GOING TO [facility] NO PCP APPOINTMENT NEEDED) - Attending Attestation I examined this patient and my medical decision-making was reviewed with the Resident Physician. I agree with the documented findings, disposition and treatment plan as described except to the extent set forth below.
--- NOTE | 2017-12-15 13:43 | Nephrology Progress Note ---
Date of Encounter: 12/15/17 Time of Encounter: 09:20 - Assessment and Plan (1) Acute kidney injury superimposed on chronic kidney disease Current Visit: Yes Status: Acute Acute kidney injury on CKD stage IV, baseline GFR in the 20 Serum creatinine remained about the same as prior, sCr 4.0 Although the patient does appear to be making approximately 1600 mL of urine per day, does not appear that she is making any progress on renal recovery at this time. This is despite 40mg IV Lasix Additionally, the patient does have some significant pulmonary edema which cancer from recovering in terms of her respiratory function The patient had temporary HD catheter placed yesterday by IR She is undergoing hemodialysis today (2) UTI (urinary tract infection) Current Visit: Yes Status: Acute Urine demonstrates Yolanda species on culture Management per primary team Qualifiers: Qualified Code(s): N39.0 - Urinary tract infection, site not specified (3) Elevated troponin Current Visit: Yes Status: Acute Management per cardiology (4) Dyspnea and respiratory abnormality Current Visit: Yes Status: Acute Significantly improved from prior day, no wheezing on exam Does not appear to have significant crackles or rales on examination 2 view chest x-ray did show volume overload and pulmonary edema on examination CT Chest again demonstrates sequelea of pulmonary edema Lasix dose did not increase the amount of urine output in 1 day Patient is having hemodialysis today (5) Anemia Current Visit: No Status: Acute Patient has significant anemia, 8.0 Transfusion parameters per primary team Qualifiers: Qualified Code(s): D64.9 - Anemia, unspecified Subjective Principal diagnosis: NSTEMI Interval history: The patient seen and examined at hemodialysis today. She is depressed in mood and does not speak very much. She has no acute complaints. Objective - Vital Signs Vital signs: Vital Signs Temp Pulse Resp BP Pulse Ox 12/15/17 12:00 98.4 F 75 20 130/71 99 12/15/17 11:40 98.3 F 18 153/70 12/15/17 11:10 123/82 12/15/17 10:55 140/81 12/15/17 10:40 133/72 12/15/17 10:25 131/66 12/15/17 10:10 118/61 12/15/17 09:55 114/65 12/15/17 09:40 104/54 12/15/17 09:25 98 F 18 106/88 12/15/17 06:44 98.2 F 76 18 130/71 99 12/15/17 03:38 98.2 F 74 18 111/61 99 12/14/17 23:35 98.0 F 75 15 112/67 99 12/14/17 20:00 94 12/14/17 18:50 97.6 F 80 19 113/68 93 12/14/17 15:44 98.2 F 70 16 105/61 92 12/14/17 14:04 98.0 F 78 16 113/65 94 12/14/17 13:45 97.9 F 80 16 123/71 93 Intake and Output 12/14/17 12/15/17 12/15/17 23:59 07:59 15:59 Intake Total 900 / 900 Output Total 1295 / 1295 3200 / 3200 Balance -1285 / -1285 -2300 / -2300 Intake: IV Fluids Maxipime 1,000 MG In Water for inj. (sterile) 10 ML @ 300 mls/ hr IVP [facility]PM [facility] Rx#:[id number] Oral 300 / 300 Intake, Rinseback and Flushes 600 / 600 Output: Total Dialysis (HD) Output 3200 / 3200 Catheter 1295 / 1295 Other: Meal Lunch Percent of Meal Consumed 25% Weight 108.8 kg Blood Glucose* 235 171 226 Hemodialysis Net Fluid Removed 2600 (mL) Patient Weight 12/15/17 23:59 Weight 108.8 kg - General Appearance Exam: General appearance: Present: chronically ill, fatigue EENT: Present: ATNC, mucous membranes dry Neck: Present: no JVD, supple Respiratory: Present: clear (ant bilat), no wheezes noted Cardiology: Present: edema (trace LE edema bilat), normal S1, normal S2 Gastrointestinal: Present: no tenderness, no guarding Integumentary: Present: warm and dry. Decubitus ulcers on b/l heels Neurologic: Present: no focal deficit, patient does not speak Musculoskeletal: Present: no deformities Psychiatric: Present: depressed - Lab 12/15/17 04:36 12/15/17 04:36 Most recent lab results Calcium 8.6 mg/dL (8.6-10.3) 12/15/17 04:36 Phosphorus 2.1 mg/dL (2.7-4.5) L 12/10/17 00:46 Magnesium 1.9 mg/dL (1.6-2.6) 12/11/17 05:40 Urine Creatinine 79 mg/dL 12/10/17 15:45 Urine Sodium 72.1 mEq/L 12/10/17 15:45 - VTE Documentation of Mechanical Device: Intermittent pneumatic compression device Consult Discharge Plan - Plan Instructions: BiPAP, Bus Repair Supervisor (GEN) Referrals: Wale Lam DO [Primary Care Provider] - ([facility]IENT IS GOING TO [facility] NO PCP APPOINTMENT NEEDED)
[2017-12-15] MEDS: Cefepime HCl 1,000 MG in Water for inj. (sterile) 20 ML 10 ML IVP SCH (17:03)
--- NOTE | 2017-12-15 17:48 | Electrocardiograph Report ---
[place] [id number] Test Date: 2017-12-12 Pat Name: Eleni Bentley Department: 110 Room: 2N02 Gender: F Training And Development Officer: KAROLINA : 1945 Requested By: Rosalio Briceno Order Number: [id number] Reading MD: Mary Kay Lombardo Measurements Intervals Cool Rate: 118 P: 170 MO: 90 QRS: 11 QRSD: 127 T: 205 QT: 332 QTc: 402 Interpretive Statements ELECTRONIC ATRIAL PACEMAKER ELECTRONIC VENTRICULAR PACEMAKER ABNORMAL RHYTHM ECG Electronically Signed On 12-15-2017 17:47:06 EDT by Mary Kay Lombardo
[2017-12-16] MEDS: *HR* Heparin 5,000 UNIT/ML VIAL SQ SCH ×2 (05:18→17:19)
[2017-12-16 06:34] LABS: Hematocrit 26.5 % (35.3-44.9); Hemoglobin 7.9 g/dL (11.5-15.4); Mean Corpuscular HGB Conc 29.8 g/dL (31.6-35.5); Mean Corpuscular Hemoglobin 27.6 pg (28.0-33.3); Mean Corpuscular Volume 92.7 fL (83.0-100.0); Mean Platelet Volume 10.2 fL (9.4-12.4); Nucleated Red Blood Cells 0.3 /100 WBC (0); Platelet Count 296 K/mcL (140-400); Red Blood Count 2.86 M/mcL (3.82-4.97); Red Cell Distribution Width 16.3 % (11.5-14.5)
[2017-12-16 06:47] LABS: Albumin 2.5 g/dL (3.5-5.7); Albumin/Globulin Ratio 0.7 (1.1-2.2); Bilirubin,Total 0.4 mg/dL (0.3-1.0); Calcium 8.6 mg/dL (8.6-10.3); Globulin 3.8 g/dL (2.4-3.5); Potassium 4.4 mEq/L (3.5-5.1); Total Protein 6.3 g/dL (6.4-8.9)
[2017-12-16] MEDS: amLODIPine 5 MG TABLET PO SCH (07:37)
[2017-12-16] MEDS: Metoprolol XL (24 HR) Succ 25 MG TAB.ER.24H PO SCH (07:37)
[2017-12-16] MEDS: Aspirin 325 MG TABLET PO SCH (07:38)
[2017-12-16] MEDS: Fluconazole 100 MG TABLET PO SCH (07:38)
[2017-12-16] MEDS: metroNIDAZOLE 500 MG TABLET PO SCH ×3 (07:38→20:40)
[2017-12-16] MEDS: Ascorbic Acid 500 MG TABLET PO SCH ×2 (07:38→20:40)
[2017-12-16] MEDS: MICONAZOLE NITRATE 57 GM TUBE TP SCH ×2 (07:39→20:39)
[2017-12-16] MEDS: Nystatin Cream 15 GM TUBE TP SCH ×2 (07:39→20:39)
[2017-12-16] MEDS: Insulin DETEMIR 100 UNIT/ML X5UNITS SQ SCH ×2 (07:39→20:42)
[2017-12-16] MEDS: QUINIDINE PO SCH (07:40)
[2017-12-16] MEDS: DEXTROMETHORPHAN HBR PO SCH (07:40)
[2017-12-16] MEDS: Nystatin SUSP 5 ML UD.LIQ PO SCH ×4 (07:40→20:46)
[2017-12-16] MEDS: Nystatin POWDER 30 GM BOTTLE TP SCH ×2 (07:40→20:38)
[2017-12-16] MEDS: Insulin LISPRO 300 UNITS/3 ML VIAL SQ SCH ×4 (07:41→20:40)
[2017-12-16 07:55] LABS: Eosinophils # 1.3 K/mcL (0.0-0.6); Lymphocytes # 2.6 K/mcL (0.6-4.6); Monocytes # 0.6 K/mcL (0.0-1.3); Neutrophils # 4.8 K/mcL (1.6-8.9); Platelet Estimate Normal (Normal)
[2017-12-16 07:56] LABS: Anisocytosis 1+ (Not Present)
--- NOTE | 2017-12-16 08:29 | Nephrology Progress Note ---
Date of Encounter: 12/16/17 Time of Encounter: 09:30 - Assessment and Plan (1) Acute kidney injury superimposed on chronic kidney disease Current Visit: Yes Status: Acute Acute kidney injury on CKD stage IV, baseline GFR in the 20 Serum creatinine remained about the same as prior, sCr 3.61 The patient did receive hemodialysis for approximately 3 hours yesterday, removed 3200 mL patient will have short hemodialysis today as well Plan for short hemodialysis tomorrow as well (2) UTI (urinary tract infection) Current Visit: Yes Status: Acute Urine demonstrates Yolanda species on culture Management per primary team Qualifiers: Urinary tract infection type: site unspecified Hematuria presence: without hematuria Qualified Code(s): N39.0 - Urinary tract infection, site not specified (3) Elevated troponin Current Visit: Yes Status: Acute Significantly improved from prior day, no wheezing on exam Does not appear to have significant crackles or rales on examination 2 view chest x-ray did show volume overload and pulmonary edema on examination CT Chest again demonstrates sequelea of pulmonary edema Lasix dose did not increase the amount of urine output in 1 day Patient is having hemodialysis today (4) Dyspnea and respiratory abnormality Current Visit: Yes Status: Acute Significantly improved from prior day, no wheezing on exam Does not appear to have significant crackles or rales on examination 2 view chest x-ray did show volume overload and pulmonary edema on examination CT Chest again demonstrates se[place]lea of pulmonary edema Lasix dose did not increase the amount of urine output in 1 day Patient is having hemodialysis today (5) Anemia Current Visit: No Status: Acute Patient has significant anemia, 8.0 Transfusion parameters per primary team Qualifiers: Anemia type: unspecified type Qualified Code(s): D64.9 - Anemia, unspecified Subjective Principal diagnosis: NSTEMI Interval history: The patient seen and examined at bedside today. She has no acute complaints overnight. She apparently in a significant appetite, however she is not complaining of nausea or vomiting. Her states that she has been in a better mood today. Objective - Vital Signs Vital signs: Vital Signs Temp Pulse Resp BP Pulse Ox 12/16/17 07:27 98.4 F 85 18 121/78 92 12/16/17 03:59 98.0 F 82 18 139/78 97 12/15/17 23:13 97.8 F 77 17 98/51 96 12/15/17 19:00 98.5 F 65 19 93/58 92 12/15/17 16:03 98.2 F 69 18 100/49 99 12/15/17 12:00 98.4 F 75 20 130/71 99 12/15/17 11:40 98.3 F 18 153/70 12/15/17 11:10 123/82 12/15/17 10:55 140/81 12/15/17 10:40 133/72 12/15/17 10:25 131/66 12/15/17 10:10 118/61 12/15/17 09:55 114/65 12/15/17 09:40 104/54 12/15/17 09:25 98 F 18 106/88 Intake and Output 12/15/17 12/16/17 12/16/17 23:59 07:59 15:59 Intake Total 140 / 140 Output Total 500 / 500 200 / 200 300 / 300 Balance -360 / -360 -200 / -200 -300 / -300 Intake: Oral 140 / 140 Output: Catheter 500 / 500 200 / 200 300 / 300 Other: Meal Dinner Percent of Meal Consumed 80% Weight 108.5 kg Blood Glucose* 237 156 - General Appearance Exam: General appearance: Present: chronically ill, fatigue EENT: Present: ATNC, mucous membranes dry Neck: Present: no JVD, supple Respiratory: Present: clear (ant bilat), no wheezes noted Cardiology: Present: edema (trace LE edema bilat), normal S1, normal S2 Gastrointestinal: Present: no tenderness, no guarding Integumentary: Present: warm and dry. Decubitus ulcers on b/l heels Neurologic: Present: no focal deficit, patient does not speak Musculoskeletal: Present: no deformities Psychiatric: Present: depressed - Lab 12/16/17 06:15 12/16/17 06:15 Most recent lab results Calcium 8.6 mg/dL (8.6-10.3) 12/16/17 06:15 Phosphorus 2.1 mg/dL (2.7-4.5) L 12/10/17 00:46 Magnesium 1.9 mg/dL (1.6-2.6) 12/11/17 05:40 Urine Creatinine 79 mg/dL 12/10/17 15:45 Urine Sodium 72.1 mEq/L 12/10/17 15:45 - VTE Documentation of Mechanical Device: Intermittent pneumatic compression device Consult Discharge Plan - Plan Instructions: BiPAP, Senior Radiation Protection Technician (GEN) Referrals: Wale Lam DO [Primary Care Provider] - (PATIENT IS GOING TO [facility] NO PCP APPOINTMENT NEEDED)
[2017-12-16] MEDS: Ondansetron 4 MG/2 ML VIAL IVP PRN (08:33)
--- NOTE | 2017-12-16 09:11 | Internal Med Progress Note ---
<Anatoliy Ramirez S - Last Filed: 12/16/17 11:20> Hospitalist Progress Note - Encounter Date of Encounter: 12/16/17 Time of Encounter: 09:09 - Subjective Interval History: Pt is seen at the bedside. She was admitted on Tuesday (12/09/17) for AMS from her long-term. She was discharged the day before after being tx for sepsis 2/2 UTI and had to be intubated for acute respiratory failure. Pt later developed DVT and was put on anicoag, which was d/c'd secondary to hematuria. She was sent back and found to have an NSTEMI with troponin peak at 2.16 , UTI and TENISHA with CKD 3 The patient mentation is slightly better today. She is oriented to self, time and place today -She is much more talkative today, is able to tell me she doesn't want to go to [facility]. She denies pain, CP, SOB , N/V/D. Urine is yellow , no blood Pt states she doesn't want to go back to [facility]. Will need to evaluate her level of activity by PTOT for placement. Nurses report no overnight events. - Exam Vitals: Temp Pulse Resp BP Pulse Ox 98.4 F 85 18 121/78 93 12/16/17 07:27 12/16/17 07:27 12/16/17 07:27 12/16/17 07:27 12/16/17 08:00 Exam: General - disscheveled, oriented to person, NAD Cardio -regular rate, s1s2, regular rhythm, no murmurs lungs - Diminished BS b/l, no wheezing, no crackles, no rales abd - NTND, no rebound or guarding, obese extremities - stage 1 pressure ulcers B/L heels, edema +.. No cellulites skin - venous stasis B/L LE Psych: Depressed, more awake today - Assessment and Plan (1) Sepsis Current Visit: Yes Status: Acute Assessment and Plan: Does not currently meet sepsis criteria -HR 85 -RR 18, BP stable -WBC 9.2 Blood cx grew s epidermidis, most likely a contaminate -urine has minimal milky consistency to it, hematuria has resolved S pneumo, legionella antigens negative Plan: -continue Cefepime day 8, flagl day 7 (d/c date as per ID is 12/18) -ID consulted, they recommended continuing current abx -vancomycin discontinued 12/10/17 -repeat blood cx pending -montior CBC -PTOT evaluation to determine activity level and placement (2) NSTEMI (non-ST elevated myocardial infarction) Current Visit: Yes Status: Acute Assessment and Plan: Most likely demand ischemia type II -2/2 sepsis with UTI/pneumonia Pt with 3 vessel CAD, s/p CABG EKG negative for acute ischemic changes, ST elevation LVEF 30%, LV systolic dysfxn, mildly dilated LV, atypcal septal motion consistent with postop status Plan: -d/c heparin drip (12/12/17) -ASA - Lopressor IVP -Toprol XL 25mg PO daily -continue rouvastatin -cardiology signed off, recommend medical management -cardiology restarted Plavix (12/13/17) (3) DVT prophylaxis Current Visit: Yes Status: Acute Assessment and Plan: 5000u SQ heparin, d/c heparin drip (4) Acute kidney injury superimposed on chronic kidney disease Current Visit: Yes Status: Acute Assessment and Plan: Creatinine on admission was 3.48 (12/09/17) -12/11/17: 3.83 ----> 12/12/17 creatinine 3.76 -----> creatinine 12/13/17 : 3.90 --- > 4.0 (12/14&) ----> 3.61 () -baseline creatinine < 3 Patient was given IV fluids for 2 days with minimal improvement -pt also has CHF with LVEF 30% and has some volume overload Retroperitoneal US was unremarkable I&O: Intake - 1040mL Output - 3700 mL Balance --2660 mL [place] cath output - 500mL HD output 3200 mL HD yesterday. pt tolerated well. Plan: -worsening renal fxn most likely 2/2 sepsis -hold nephrotoxic agents -monitor CMP -strict I&O's, fluid restriction diet 1.5 L -nephro consulted, temporary HD cath placed by IR, pt underwent HD yesterday -pt given a 1 time dose of Lasix as per nephrology, output increased -as per nephrology, will have HD today and tomorrow (5) Hypertension Current Visit: No Status: Chronic Assessment and Plan: BP 121/78 -adequate control - home amlodipine 10mg (6) Type 2 diabetes mellitus Current Visit: No Status: Chronic Assessment and Plan: Will change ISS to high dose -glucose this AM 142, difficult to control -increased 5U levemir to 10U (12/14/17) -12/16/17 will increase to 15U today (7) Chronic systolic heart failure Current Visit: No Status: Chronic Assessment and Plan: Last ECHO was in 2017 -LVEF at that time was 30% -Not in acute exacerbation 2 D ECHO - showed LVEF 30% I&O: Intake - 1040mL Output - 3700 mL Balance --2660 mL [place] cath output - 500mL HD output 3200 mL Plan: -diuretics held 2/2 TENISHA; nephro gave a 1x dose of IV lasix (12/14/17) -strict I&O's -cardiac/diabetic diet (8) Pneumonia Current Visit: Yes Status: Ruled-out Assessment and Plan: CXR/CT was concerning for infiltrates on B/L basal regions -?aspiration pneumonia Blood cx grew s epidermidis Speech evaluation -current diet of thin liquids and advanced soft tectures Plan: -continue cefepime day 8 for psuedomonas/gram(+) and flagyl day 7 for anaerobic coverage (9) UTI (urinary tract infection) Current Visit: Yes Status: Acute Assessment and Plan: UA showed large leukocyte esterase, 30-50 RBC, TNTC WBC Pt was recently admitted for hematuria/sepsis 2/2 UTI and was tx with Vanc and Cefepime, as per ID -has had shonna in the past in urine -milky appearance of urine resolved -hematuria resolved Urine cx = yeast species Blood cx - s epi and g(+) rods Plan: - Cefepime day 8 and Diflucan 7 (until 12/18) -repeat blood cx pending -ID consulted, agreed with current abx choice -consult urology (10) Obesity (BMI 30-39.9) Current Visit: No Status: Chronic Assessment and Plan: BMI is 42.4 (11) Catatonia Current Visit: Yes Status: Acute Assessment and Plan: Pt more interactive today Psych consulted saw pt, she doesn't want ECT or inpt psych treatment. They recommend Ativan 0.5 mg by mouth 3 times a day and 5 mg at bedtime was discontinued 12/14/17 Plan: -Nudexta started -puree diet, tolerating -discontinue Ativan as per psych recommendations (12) Shonna infection Current Visit: Yes Status: Acute Assessment and Plan: Pt has shonna in the mouth and under skin folds -nystatin swish and spit -topical nystatin for skin folds (13) Chronic anemia Current Visit: No Status: Chronic Assessment and Plan: Hemoglobin today 7.9 -On admission 9.0, HD 3 7.9 -stable H&H -prealbumin 10.6 -most likely nutritional deficiency in nature and chronic dz -Iron 36, Iron % sat 20, transferrin 130 -continue home ferrous sulfate DVT Prophylaxis: sq heparin - Time Spent with Patient Total time spent is greater than 50% in coordination of care (as documented) at patient's floor/unit and/or counseling patient: less than 15 minutes Plan of Care Discussed with: patient Internal Medicine: Result - Labs CBC & Chem 7: 12/16/17 06:15 12/16/17 06:15 Labs: Short CBC 12/16/17 Range/Units 06:15 WBC 9.2 (4.3-11.1) K/mcL Hgb 7.9 L (11.5-15.4) g/dL Hct 26.5 L (35.3-44.9) % Plt Count 296 (140-400) K/mcL Neutrophils # 4.8 (1.6-8.9) K/mcL BMP 12/16/17 06:15 Sodium 139 Potassium 4.4 Chloride 106 Carbon Dioxide 25 BUN 51 H Creatinine 3.61 H Glucose 142 H Calcium 8.6 Liver Function 12/16/17 Range/Units 06:15 Total Bilirubin 0.4 (0.3-1.0) mg/dL AST 13 (13-39) Units/L ALT 10 (7-52) Units/L Alkaline Phosphatase 101 (34-104) Units/L Albumin 2.5 L (3.5-5.7) g/dL - ABG Interpretation ABG results: PT/INR, D-dimer PT 15.6 Seconds (9.4-12.1) H 12/10/17 02:55 - VTE Documentation of Mechanical Device: Intermittent pneumatic compression device Consult Discharge Plan - Plan Instructions: BiPAP, Burring Wheel Operator (GEN) Referrals: Wale Lam DO [Primary Care Provider] - (PATIENT IS GOING TO [facility] NO PCP APPOINTMENT NEEDED) <Isabel Rocha - Last Filed: 12/16/17 14:44> Hospitalist Progress Note - Encounter Date of Encounter: 12/16/17 - Exam Vitals: Temp Pulse Resp BP Pulse Ox 97.4 F L 78 16 113/60 93 12/16/17 13:31 12/16/17 13:31 12/16/17 13:31 12/16/17 13:31 12/16/17 08:00 - Assessment and Plan (1) DVT prophylaxis Current Visit: Yes Status: Acute (2) Acute kidney injury superimposed on chronic kidney disease Current Visit: Yes Status: Acute (3) Hypertension Current Visit: No Status: Chronic (4) Type 2 diabetes mellitus Current Visit: No Status: Chronic (5) Chronic systolic heart failure Current Visit: No Status: Chronic (6) Pneumonia Current Visit: Yes Status: Ruled-out (7) Sepsis Current Visit: Yes Status: Acute (8) UTI (urinary tract infection) Current Visit: Yes Status: Acute (9) Obesity (BMI 30-39.9) Current Visit: No Status: Chronic (10) NSTEMI (non-ST elevated myocardial infarction) Current Visit: Yes Status: Acute (11) Catatonia Current Visit: Yes Status: Acute (12) Shonna infection Current Visit: Yes Status: Acute (13) Chronic anemia Current Visit: No Status: Chronic - Time Spent with Patient Total time spent is greater than 50% in coordination of care (as documented) at patient's floor/unit and/or counseling patient: Internal Medicine: Result - Labs CBC & Chem 7: 12/16/17 06:15 12/16/17 06:15 Labs: Short CBC 12/16/17 Range/Units 06:15 WBC 9.2 (4.3-11.1) K/mcL Hgb 7.9 L (11.5-15.4) g/dL Hct 26.5 L (35.3-44.9) % Plt Count 296 (140-400) K/mcL Neutrophils # 4.8 (1.6-8.9) K/mcL BMP 12/16/17 06:15 Sodium 139 Potassium 4.4 Chloride 106 Carbon Dioxide 25 BUN 51 H Creatinine 3.61 H Glucose 142 H Calcium 8.6 Liver Function 12/16/17 Range/Units 06:15 Total Bilirubin 0.4 (0.3-1.0) mg/dL AST 13 (13-39) Units/L ALT 10 (7-52) Units/L Alkaline Phosphatase 101 (34-104) Units/L Albumin 2.5 L (3.5-5.7) g/dL - ABG Interpretation ABG results: PT/INR, D-dimer PT 15.6 Seconds (9.4-12.1) H 12/10/17 02:55 - Attending Attestation I examined this patient and my medical decision-making was reviewed with the Resident Physician. I agree with the documented findings, disposition and treatment plan as described except to the extent set forth below. <Anatoliy Ramirez S - Last Filed: 12/16/17 11:20> (1) Sepsis Qualifiers: Sepsis type: sepsis due to unspecified organism Qualified Code(s): A41.9 - Sepsis, unspecified organism (5) Hypertension Qualifiers: Hypertension type: essential hypertension Qualified Code(s): I10 - Essential (primary) hypertension (6) Type 2 diabetes mellitus Qualifiers: Diabetes mellitus manager terminal insulin use: with nursing home use Diabetes mellitus complication status: with kidney complications Diabetes mellitus complication detail: with chronic kidney disease Chronic kidney disease stage: stage 4 (severe) Qualified Code(s): E11.22 - Type 2 diabetes mellitus with diabetic chronic kidney disease; N18.4 - Chronic kidney disease, stage 4 (severe ); Z79.4 - termite control 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 of 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 (8) Pneumonia Qualifiers: Pneumonia type: due to unspecified organism Laterality: right Lung location : lower lobe of lung Qualified Code(s): J18.1 - Lobar pneumonia, unspecified organism (9) UTI (urinary tract infection) Qualifiers: Urinary tract infection type: site unspecified Hematuria presence: without hematuria Qualified Code(s): N39.0 - Urinary tract infection, site not specified <Isabel Rocha - Last Filed: 12/16/17 14:44> (3) Hypertension Qualifiers: Hypertension type: essential hypertension Qualified Code(s): I10 - Essential (primary) hypertension (4) Type 2 diabetes mellitus Qualifiers: Diabetes mellitus nursing home insulin use: with manager terminal use Diabetes mellitus complication status: with kidney complications Diabetes mellitus complication detail: with chronic kidney disease Chronic kidney disease stage: stage 4 (severe) Qualified Code(s): E11.22 - Type 2 diabetes mellitus with diabetic chronic kidney disease; N18.4 - Chronic kidney disease, stage 4 (severe ); Z79.4 - prison (current) use of insulin (6) Pneumonia Qualifiers: Pneumonia type: due to unspecified organism Laterality: right Lung location : lower lobe of lung Qualified Code(s): J18.1 - Lobar pneumonia, unspecified organism (7) Sepsis Qualifiers: Sepsis type: sepsis due to unspecified organism Qualified Code(s): A41.9 - Sepsis, unspecified organism (8) UTI (urinary tract infection) Qualifiers: Urinary tract infection type: site unspecified Hematuria presence: without hematuria Qualified Code(s): N39.0 - Urinary tract infection, site not specified
[2017-12-16] MEDS ORDERED: 0.9 % Sodium Chloride 250 ML IVC PRN (09:18)
[2017-12-16] MEDS ORDERED: *HR* Heparin 10,000 UNIT/10 ML VIAL IV PRN (09:24)
--- NOTE | 2017-12-16 09:27 | Infectious Disease Progress No ---
Date of Encounter: 12/16/17 Time of Encounter: 09:20 - Assessment and Plan (1) Severe sepsis Current Visit: Yes Status: Resolved No longer meets sepsis criteria. Fever, tachycardia, tachypnea, and leukocytosis are resolved. On admission, met 4 SIRS criteria with fever, tachycardia, tachypnea, and leukocytosis. Possibly secondary to candiduria/pneumonia. Uric acid was normal. Amylase and lipase are normal. Blood culture drawn 12/09 1 out of 2 is positive for Staph epidermidis. Likely contaminant, will not treat. Repeat blood cultures drawn 12/12 are NGTD. Continue cefepime, flagyl, diflucan through 12/18. Monitor renal function and for drug toxicity and dose-adjust antibiotics. (2) Candiduria Current Visit: Yes Status: Acute Urinalysis showed negative nitrite, large leukocyte esterase, and many urine bacteria. High protein, large blood, high RBC, and high WBC. Urine culture 12/10 showed yolanda albicans. Continue diflucan through 12/18. (3) Pneumonia Current Visit: Yes Status: Ruled-out Legionella and Strep pneumoniae antigens are negative. CT abd/pelvis showed persistent bibasilar airspace disease, atelectasis vs pneumonia. CT chest showed moderate bilateral pleural effusion associated with dependent consolidation. Scattered ground glass opacity. Likely pulmonary edema, but superimposed pneumonia is possibility. Barium swallow study performed 12/02 showed grossly normal oral swallowing, no laryngeal penetration or aspiration. Continue antibiotics as above. Qualifiers: Qualified Code(s): J18.1 - Lobar pneumonia, unspecified organism (4) Acute kidney injury superimposed on chronic kidney disease Current Visit: Yes Status: Acute Improvement of creatinine from 4.00 to 3.61 after dialysis yesterday. CKD stage 4, baseline GFR 20. Most likely pre-renal Retroperitoneal ultrasound showed no hydronephrosis with normal renal echogenicity. Management per Nephrology. (5) NSTEMI (non-ST elevated myocardial infarction) Current Visit: Yes Status: Acute History of 3 vessel CAD s/p CABG. Elevated troponin at admission. Most likely demand ischemia type 2 TTE 12/10/17 showed LVEF 30%, unchanged from prior TTE 2016. Global and segmental LV systolic dysfunction. Management per Cardiology. (6) Catatonia Current Visit: Yes Status: Acute History of depression. Recent of son and [id number]. Head CT showed no acute intracranial abnormality. Ativan and memantine. Management per Psychiatry. (7) Yolanda infection Current Visit: Yes Status: Acute In mouth and under skin folds. Nystatin. Management per primary team. (8) Chronic systolic heart failure Current Visit: No Status: Chronic Pacemaker and defibrillator. TTE 12/10/17 showed LVEF 30%, unchanged from prior TTE 2016. Global and segmental LV systolic dysfunction. Management per Cardiology. (9) Atrial flutter with rapid ventricular response Current Visit: Yes Status: Acute Toprol Management per Cardiology. (10) Type 2 diabetes mellitus Current Visit: No Status: Chronic Insulin. Qualifiers: Qualified Code(s): E11.22 - Type 2 diabetes mellitus with diabetic chronic kidney disease; N18.4 - Chronic kidney disease, stage 4 (severe); Z79.4 - shelter (current) use of insulin (11) Chronic anemia Current Visit: No Status: Chronic Stable. Transfusion parameters per primary team. (12) Hypertension Current Visit: No Status: Chronic On amlodipine. Qualifiers: Qualified Code(s): I10 - Essential (primary) hypertension - Subjective Interval history: Patient seen and examined. No acute events overnight. Patient was receiving nystatin cream to buttocks at time of visit. The patient is awake and resting comfortably in bed with by her side. She is communicating with short answers and with nodding/shaking her head. Patient speaks more when communicating with . Patient is oriented to person and place, but not to time. reports that patient became nauseous after eating newell and threw up the newell. Patient was given zofran and nausea is resolved. Patient denies choking on the newell. Patient denies any other complaints. Patient denies cough. Denies pain. Denies chest pain, shortness of breath. Denies abdominal pain. Infect Dis PN-Objective Data - Labs CBC & Chem 7: 12/16/17 06:15 12/16/17 06:15 Labs: Laboratory Results - last 24 hr 12/15/17 12/15/17 12/15/17 06:47 11:41 16:04 WBC RBC Hgb Hct MCV MCH MCHC RDW Plt Count MPV Seg Neutrophils % Band Neutrophils % Lymphocytes % Monocytes % Eosinophils % Neutrophils # Lymphocytes # Monocytes # Eosinophils # Nucleated RBCs/100 WBC Platelet Estimate Anisocytosis Sodium Potassium Chloride Carbon Dioxide BUN Creatinine Est GFR ( Amer) Est GFR (Non-Af Amer) BUN/Creatinine Ratio Glucose POC Glucose 171 H 226 H 223 H Calculated Osmolality Calcium Total Bilirubin AST ALT Alkaline Phosphatase Serum Total Protein Albumin Globulin Albumin/Globulin Ratio 12/15/17 12/16/17 12/16/17 20:59 06:15 06:15 WBC 9.2 RBC 2.86 L Hgb 7.9 L Hct 26.5 L MCV 92.7 MCH 27.6 L MCHC 29.8 L RDW 16.3 H Plt Count 296 MPV 10.2 Seg Neutrophils % 50.0 Band Neutrophils % 2.0 Lymphocytes % 28.0 Monocytes % 6.0 Eosinophils % 14.0 Neutrophils # 4.8 Lymphocytes # 2.6 Monocytes # 0.6 Eosinophils # 1.3 H Nucleated RBCs/100 WBC 0.3 H Platelet Estimate Normal Anisocytosis 1+ A Sodium 139 Potassium 4.4 Chloride 106 Carbon Dioxide 25 BUN 51 H Creatinine 3.61 H Est GFR ( Amer) 15 L Est GFR (Non-Af Amer) 12 L BUN/Creatinine Ratio 14 Glucose 142 H POC Glucose 237 H Calculated Osmolality 304 H Calcium 8.6 Total Bilirubin 0.4 AST 13 ALT 10 Alkaline Phosphatase 101 Serum Total Protein 6.3 L Albumin 2.5 L Globulin 3.8 H Albumin/Globulin Ratio 0.7 L Cultures: Cultures 12/14/17 03:50 Legionella Antigen - Final Urine,[place] Streptococcus pneumoniae Antigen (M - Final 12/10/17 16:02 Urine Culture - Final Urine,[place] Yolanda albicans 12/12/17 06:29 Blood Culture - Preliminary Peripheral Venipuncture Culture is incubating and being continuously monitored for growth. Final report to follow. 12/12/17 06:16 Blood Culture - Preliminary Peripheral Venipuncture Culture is incubating and being continuously monitored for growth. Final report to follow. Serology 12/14/17 12/10/17 12/10/17 Range/Units 11:03 15:45 15:45 Ur Eosinophil Smear 0 (None Seen) % Urine Creatinine 79 mg/dL Urine Sodium 72.1 mEq/L Hep Bs Antigen Nonreactive (Nonreactive) Hep Bs Antibody 0.00 mIU/mL Exam - Constitutional Vitals: Temp Pulse Resp BP Pulse Ox 98.4 F 85 18 121/78 93 12/16/17 07:27 12/16/17 07:27 12/16/17 07:27 12/16/17 07:27 12/16/17 08:00 General appearance: cooperative, morbidly obese, no acute distress, no febrile - Head Head exam: Present: atraumatic, normal inspection, normocephalic - Eye Eye exam: Present: EOMI, normal appearance, PERRL - ENT ENT exam: Present: mucous membranes moist - Neck Neck exam: Present: normal inspection - Respiratory Respiratory exam: Present: CTAB. Absent: rales, respiratory distress, rhonchi, wheezes - Cardiovascular Cardiovascular exam: Present: RRR, +S1, +S2 - GI/Abdominal GI/Abdominal exam: Present: distended (obese), normal bowel sounds, soft. Absent: tenderness - Extremities Exam Extremities exam: Absent: joint swelling, normal inspection (stasis dermatitis, unchanged ), pedal edema, tenderness - Neurological Exam Neurological exam: Present: alert. Absent: oriented X3 (Oriented to person and place, not to time ) - Psychiatric Psychiatric exam: Present: flat affect - Skin Skin exam: Present: dry, intact, warm - VTE Documentation of Mechanical Device: Intermittent pneumatic compression device Consult Discharge Plan - Plan Instructions: BiPAP, Hedis Analyst (GEN) Referrals: Wale Lam DO [Primary Care Provider] - (PATIENT IS GOING TO [facility] NO PCP APPOINTMENT NEEDED) - Attending Attestation I examined this patient and my medical decision-making was reviewed with the Resident Physician. I agree with the documented findings, disposition and treatment plan as described except to the extent set forth below.
[2017-12-16] MEDS: Cefepime HCl 1,000 MG in Water for inj. (sterile) 20 ML 10 ML IVP SCH (17:19)
--- NOTE | 2017-12-16 17:45 | Consult Note ---
Date of Encounter: 12/16/17 Time of Encounter: 16:30 Assessment & Recommendation (1) Catatonic disorder due to known physiological condition Current visit: No Status: Acute (2) Nonverbal Current visit: No Status: Suspected (3) Catatonia Current visit: Yes Status: Acute (4) Delirium due to known physiological condition Current visit: Yes Status: Acute History of Present Illness Patient: known to practice within the last 3 years Requesting Physician: Isabel Rocha MD Reason for consult: catatonia History of present illness: Ms. Bentley is a 72 year old female Chief complaint; Indra is the president. History of present illness the patient has been followed for catatonia. The catatonia was initially felt related to a primary psychiatric disorder or arising out of grief or distress. Certainly the patient had bereavement. But over the ensuing days we have determined that the patient does not tolerate lorazepam and becomes sedated by. Furthermore she has features of akinetic mutism and catatonia. Today she was somewhat confused on examination but can follow some commands and is involved in some care. The patient has multiple medical problems she has tolerated memantine 5 mg twice a day. CC: Isabel Rocha MD Past Med Surg Social Fam HX - Past Medical History Medical history: cardiomyopathy, CHF, coronary artery disease, CVA, diabetes, GERD, hyperlipidemia, hypertension, kidney stones, myocardial infarction, peripheral artery disease, renal disease, TIA - Past Surgical History Surgical History: appendectomy, breast surgery, carotid endarterectomy, cholecystectomy, coronary bypass (CABG), hysterectomy, pacemaker/AICD, LE vascular intervention - Social History Smoking Status: Former smoker Smokeless Tobacco Status: No Alcohol use: none Drug use: none - Family History Mother Living Status: Hx Family Cardiac Disorders: Yes (HTN) Hx Family Endocrine Disorder: Yes (diabetes) Hx Family Neurologic Disorders: Yes (2 strokes) Father Living Status: Hx Family Cardiac Disorders: Yes Hx Family Respiratory Disorders: Yes Hx Family Neurologic Disorders: Yes Medications & Allergies Aspirin Enteric Coated [Aspirin EC] 81 mg PO DAILY 08/20/15 [History] Metoprolol XL (24 HR) Succ [Toprol Xl] 50 mg PO DAILY #30 tab.er.24h 01/07/16 [ Rx] Insulin Glargine,Hum.rec.anlog [Toujeo Solostar] 45 units SQ HS 06/10/16 [ History] Multivit-Minerals/Folic/Ginkgo [One Daily For Women 50+ Adv Tb] 1 tab PO DAILY 06/10/16 [History] Furosemide [Lasix] 40 mg PO QAM 10/03/16 [History] Insulin ASPART [Novolog Flexpen] 25 unit SQ TIDWM 10/03/16 [History] Clopidogrel [Plavix] 75 mg PO DAILY 11/03/17 [History] Oxybutynin Chloride [Ditropan Xl] 10 mg PO DAILY 11/03/17 [History] Rosuvastatin Calcium 10 mg PO HS 11/03/17 [History] Ascorbic Acid [Vitamin C] 500 mg PO BID 11/17/17 [History] Ergocalciferol (VITAMIN D2) [Vitamin D2] 50,000 unit PO QWEEK 11/17/17 [History] Dextromethorphan HBr/Quinidine [Nuedexta 20-10 mg Capsule] 1 each PO DAILY 30 Days #30 capsule 12/08/17 [Rx] Ferrous Sulfate 325 mg PO DAILY@0800 tablet 12/08/17 [Rx] LORazepam [Ativan] 1 mg PO TID 6 Days #18 tablet 12/08/17 [Rx] Miconazole 2% ointment [Aloe [place] Antifungal Ointment] 1 appl TP DAILY tube [Rx] amLODIPine [Norvasc] 10 mg PO DAILY tablet 12/08/17 [Rx] 3 Allergy/AdvReac Type Severity Reaction Status Date / Time venom-honey bee Allergy Severe Swelling Verified 11/03/17 10:53 [bee venom (honey bee)] of Lip/Tongue/Throat Cortisone Allergy Mild Hives Verified 11/03/17 10:53 Penicillins Allergy See Verified 11/03/17 10:53 Comments NSAIDS (Non-Steroidal AdvReac Mild UPSET Verified 11/03/17 10:53 Anti-Inflamma STOMACH cefazolin [From Ancef] AdvReac Hives Verified 11/03/17 10:53 Lgnztwk-Cjv-Lpb Reductase AdvReac Muscle Pain Verified 11/03/17 10:53 Inhibitor [Statins] GRAPE FLAVOR Allergy Mild Swelling Uncoded 11/03/17 10:53 of the Eye Review of Systems Psychiatric: Reports: depression, other Psychiatry Exam - Constitutional Vitals: Temp Pulse Resp BP Pulse Ox 98.6 F 75 16 102/67 96 12/16/17 16:01 12/16/17 16:01 12/16/17 16:01 12/16/17 16:01 12/16/17 16:01 Results - Labs Labs: Laboratory Last Values WBC 9.2 K/mcL (4.3-11.1) 12/16/17 06:15 RBC 2.86 M/mcL (3.82-4.97) L 12/16/17 06:15 Hgb 7.9 g/dL (11.5-15.4) L 12/16/17 06:15 Hct 26.5 % (35.3-44.9) L 12/16/17 06:15 MCV 92.7 fL (83.0-100.0) 12/16/17 06:15 MCH 27.6 pg (28.0-33.3) L 12/16/17 06:15 MCHC 29.8 g/dL (31.6-35.5) L 12/16/17 06:15 RDW 16.3 % (11.5-14.5) H 12/16/17 06:15 Plt Count 296 K/mcL (140-400) 12/16/17 06:15 MPV 10.2 fL (9.4-12.4) 12/16/17 06:15 Immature Gran % 14.2 % (0-4) H 12/14/17 05:32 Seg Neutrophils % 50.0 % 12/16/17 06:15 Band Neutrophils % 2.0 % (0-4) 12/16/17 06:15 Lymphocytes % 28.0 % 12/16/17 06:15 Monocytes % 6.0 % 12/16/17 06:15 Eosinophils % 14.0 % 12/16/17 06:15 Basophils % 1.0 % 12/15/17 04:36 Neutrophils # 4.8 K/mcL (1.6-8.9) 12/16/17 06:15 Lymphocytes # 2.6 K/mcL (0.6-4.6) 12/16/17 06:15 Monocytes # 0.6 K/mcL (0.0-1.3) 12/16/17 06:15 Eosinophils # 1.3 K/mcL (0.0-0.6) H 12/16/17 06:15 Basophils # 0.1 K/mcL (0.0-0.2) 12/15/17 04:36 Nucleated RBCs/100 WBC 0.3 /100 WBC (0) H 12/16/17 06:15 Platelet Estimate Normal (Normal) 12/16/17 06:15 Immature Plt Fraction 4.0 % (1.1-6.1) 12/14/17 05:32 Anisocytosis 1+ (Not Present) A 12/16/17 06:15 PT 15.6 Seconds (9.4-12.1) H 12/10/17 02:55 INR 1.4 12/10/17 02:55 APTT 71.2 Seconds (26.0-36.0) H 12/10/17 02:55 Heparin Anti-Xa, Unfract 0.43 IU/mL (0.30-0.70) 12/12/17 06:29 VBG pH 7.45 pH Units (7.32-7.42) H 12/09/17 15:36 VBG pCO2 39 mmHg (41-51) L 12/09/17 15:36 VBG pO2 100 mmHg (25-50) H 12/09/17 15:36 VBG HCO3 27 mEq/L (21-27) 12/09/17 15:36 Sodium 139 mEq/L (136-145) 12/16/17 06:15 Potassium 4.4 mEq/L (3.5-5.1) 12/16/17 06:15 Chloride 106 mEq/L (98-107) 12/16/17 06:15 Carbon Dioxide 25 mEq/L (23-29) 12/16/17 06:15 BUN 51 mg/dL (8-23) H 12/16/17 06:15 Creatinine 3.61 mg/dL (0.60-1.20) H 12/16/17 06:15 Est GFR ( Amer) 15 (> 60) L 12/16/17 06:15 Est GFR (Non-Af Amer) 12 (> 60) L 12/16/17 06:15 BUN/Creatinine Ratio 14 (6-26) 12/16/17 06:15 Glucose 142 mg/dL (70-105) H 12/16/17 06:15 POC Glucose 149 mg/dL (70-99) H 12/16/17 16:04 Calculated Osmolality 304 (280-300) H 12/16/17 06:15 Lactic Acid 1.3 mmol/L (0.5-2.2) 12/09/17 18:56 Uric Acid 6.1 mg/dL (2.3-7.6) 12/10/17 15:22 Calcium 8.6 mg/dL (8.6-10.3) 12/16/17 06:15 Phosphorus 2.1 mg/dL (2.7-4.5) L 12/10/17 00:46 Magnesium 1.9 mg/dL (1.6-2.6) 12/11/17 05:40 Iron 36 mcg/dL (50-170) L 12/12/17 06:29 % Saturation 20 % (15-50) 12/12/17 06:29 Transferrin 130 mg/dL (203-362) L 12/12/17 06:29 Total Bilirubin 0.4 mg/dL (0.3-1.0) 12/16/17 06:15 Direct Bilirubin 0.3 mg/dL (0.0-0.2) H 12/09/17 13:10 Indirect Bilirubin 0.3 mg/dL (0.0-1.2) 12/09/17 13:10 AST 13 Units/L (13-39) 12/16/17 06:15 ALT 10 Units/L (7-52) 12/16/17 06:15 Alkaline Phosphatase 101 Units/L (34-104) 12/16/17 06:15 Ammonia 20 mcmol/L (16-53) 12/09/17 13:51 Creatine Kinase 80 Units/L (30-223) 12/10/17 15:22 Troponin I 0.86 ng/mL (< 0.04) H* 12/10/17 06:31 Serum Total Protein 6.3 g/dL (6.4-8.9) L 12/16/17 06:15 Albumin 2.5 g/dL (3.5-5.7) L 12/16/17 06:15 Globulin 3.8 g/dL (2.4-3.5) H 12/16/17 06:15 Albumin/Globulin Ratio 0.7 (1.1-2.2) L 12/16/17 06:15 Prealbumin 10.3 mg/dL (17.0-34.0) L 12/09/17 18:56 Amylase 20 Units/L (29-103) L 12/13/17 16:32 Lipase 23 Units/L (11-82) 12/13/17 16:32 Beta-Hydroxybutyric Acd 0.23 mmol/L (0.02-0.27) 12/09/17 15:13 Urine Color Yellow (Yellow) 12/09/17 16:02 Urine Clarity Turbid (Clear) A 12/09/17 16:02 Urine pH 7.0 pH Units (5.0-8.0) 12/09/17 16:02 Ur Specific [place] 1.021 (1.010-1.025) 12/09/17 16:02 Urine Protein >=300 mg/dL (Neg-Trace) H 12/09/17 16:02 Urine Glucose (UA) Normal mg/dL (Normal) 12/09/17 16:02 Urine Ketones Negative mg/dL (Negative) 12/09/17 16:02 Urine Blood Large (Negative) H 12/09/17 16:02 Urine Nitrite Negative (Negative) 12/09/17 16:02 Urine Bilirubin Negative (Negative) 12/09/17 16:02 Urine Urobilinogen Normal mg/dL (Normal) 12/09/17 16:02 Ur Leukocyte Esterase Large (Negative) H 12/09/17 16:02 Urine Microscopic RBC 30-50 per hpf (0-3) H 12/09/17 16:02 Urine Microscopic WBC TNTC per hpf (0-3) H 12/09/17 16:02 Ur Eosinophil Smear 0 % (None Seen) 12/10/17 15:45 Ur Squamous Epith Cells Many per lpf (None-Few) H 12/09/17 16:02 Urine Bacteria Many per hpf (None-Few) H 12/09/17 16:02 Hyaline Casts None Seen per lpf (None-Few) 12/09/17 16:02 Ur Culture Indicated? NO. (NO) A 12/09/17 16:02 Urine Creatinine 79 mg/dL 12/10/17 15:45 Urine Sodium 72.1 mEq/L 12/10/17 15:45 Random Vancomycin 17 mcg/mL 12/11/17 05:40 Urine Opiates Screen Negative ng/mL (Vzfdwg=123) 12/09/17 16:00 Ur Barbiturates Screen Negative ng/mL (Bktwre=693) 12/09/17 16:00 Ur Phencyclidine Scrn Negative ng/mL (Cutoff=25) 12/09/17 16:00 Ur Amphetamines Screen Negative ng/mL (Nbqsaw=8720) 12/09/17 16:00 U Benzodiazepines Scrn Negative ng/mL (Hcnuip=637) 12/09/17 16:00 Urine Cocaine Screen Negative ng/mL (Cutoff= 300) 12/09/17 16:00 U Marijuana (THC) Screen Negative ng/mL (Cutoff = 50) 12/09/17 16:00 Ur Drug Screen Interp See Below 12/09/17 16:00 Ethyl Alcohol < 10 mg/dL (Less than 10) 12/09/17 13:10 A. baumannii (PCR) Not Detected (Not Detect) 12/09/17 15:13 Yolanda albicans (PCR) Not Detected (Not Detect) 12/09/17 15:13 C. glabrata (PCR) Not Detected (Not Detect) 12/09/17 15:13 C. krusei (PCR) Not Detected (Not Detect) 12/09/17 15:13 C. parapsilosis (PCR) Not Detected (Not Detect) 12/09/17 15:13 C. tropicalis (PCR) Not Detected (Not Detect) 12/09/17 15:13 Enterobacteriac sp PCR Not Detected (Not Detect) 12/09/17 15:13 E. cloacae complex PCR Not Detected (Not Detect) 12/09/17 15:13 Enterococcus sp PCR Not Detected (Not Detect) 12/09/17 15:13 E. coli (PCR) Not Detected (Not Detect) 12/09/17 15:13 H. influenzae (PCR) Not Detected (Not Detect) 12/09/17 15:13 Hep Bs Antigen Nonreactive (Nonreactive) 12/14/17 11:03 Hep Bs Antibody 0.00 mIU/mL 12/14/17 11:03 Klebsiella oxytoca PCR Not Detected (Not Detect) 12/09/17 15:13 Klebsiella pneumoniae Not Detected (Not Detect) 12/09/17 15:13 List. monocytogenes PCR Not Detected (Not Detect) 12/09/17 15:13 N. meningitidis (PCR) Not Detected (Not Detect) 12/09/17 15:13 Proteus species (PCR) Not Detected (Not Detect) 12/09/17 15:13 Serratia marcescens PCR Not Detected (Not Detect) 12/09/17 15:13 Staphylococcus sp PCR DETECTED (Not Detect) A 12/09/17 15:13 Staph aureus (PCR) Not Detected (Not Detect) 12/09/17 15:13 mecA-Methicil Res Gene DETECTED (Not Detect) A 12/09/17 15:13 Streptococcus sp PCR Not Detected (Not Detect) 12/09/17 15:13 Group A Strep DNA Not Detected (Not Detect) 12/09/17 15:13 Group B Strep (PCR) Not Detected (Not Detect) 12/09/17 15:13 Strep pneumoniae (PCR) Not Detected (Not Detect) 12/09/17 15:13 P. aeruginosa (PCR) Not Detected (Not Detect) 12/09/17 15:13 Lisbeth/B-Vanco Res Genes Not Detected (Not Detect) 12/09/17 15:13 KPC (blaKPC) Detect PCR Not Detected (Not Detect) 12/09/17 15:13 Specimen Rejected Hemolyzed 12/13/17 06:34 Consult Discharge Plan - Plan Instructions: BiPAP, Dice Dealer (GEN) Referrals: Wale Lam DO [Primary Care Provider] - (PATIENT IS GOING TO ECF NO PCP APPOINTMENT NEEDED)
[2017-12-17 04:01] LABS: Hematocrit 26.2 % (35.3-44.9); Lymphocytes # 1.8 K/mcL (0.6-4.6); Mean Corpuscular HGB Conc 30.5 g/dL (31.6-35.5); Mean Corpuscular Hemoglobin 28.3 pg (28.0-33.3); Mean Corpuscular Volume 92.6 fL (83.0-100.0); Mean Platelet Volume 10.4 fL (9.4-12.4); Nucleated Red Blood Cells 0.7 /100 WBC (0); Platelet Count 281 K/mcL (140-400); Red Blood Count 2.83 M/mcL (3.82-4.97); Red Cell Distribution Width 16.7 % (11.5-14.5)
[2017-12-17 04:23] LABS: Albumin 2.5 g/dL (3.5-5.7); Albumin/Globulin Ratio 0.6 (1.1-2.2); Bilirubin,Total 0.4 mg/dL (0.3-1.0); Calcium 8.4 mg/dL (8.6-10.3); Globulin 3.9 g/dL (2.4-3.5); Potassium 4.2 mEq/L (3.5-5.1); Total Protein 6.4 g/dL (6.4-8.9)
[2017-12-17 04:32] LABS: Eosinophils # 0.2 K/mcL (0.0-0.6); Neutrophils # 6.8 K/mcL (1.6-8.9); Platelet Estimate Normal (Normal)
[2017-12-17 04:33] LABS: Anisocytosis 1+ (Not Present)
[2017-12-17] MEDS: Acetaminophen 325 MG TABLET PO PRN ×2 (05:09→20:30)
[2017-12-17] MEDS: *HR* Heparin 5,000 UNIT/ML VIAL SQ SCH ×2 (05:10→16:49)
[2017-12-17] MEDS: Aspirin 325 MG TABLET PO SCH (07:28)
[2017-12-17] MEDS: Metoprolol XL (24 HR) Succ 25 MG TAB.ER.24H PO SCH (07:28)
[2017-12-17] MEDS: amLODIPine 5 MG TABLET PO SCH (07:28)
[2017-12-17] MEDS: Nystatin Cream 15 GM TUBE TP SCH ×2 (07:29→20:32)
[2017-12-17] MEDS: Fluconazole 100 MG TABLET PO SCH (07:29)
[2017-12-17] MEDS: Ascorbic Acid 500 MG TABLET PO SCH ×2 (07:29→20:29)
[2017-12-17] MEDS: Nystatin POWDER 30 GM BOTTLE TP SCH ×2 (07:29→20:31)
[2017-12-17] MEDS: MICONAZOLE NITRATE 57 GM TUBE TP SCH ×2 (07:29→20:31)
[2017-12-17] MEDS: Nystatin SUSP 5 ML UD.LIQ PO SCH ×4 (07:29→20:30)
[2017-12-17] MEDS: metroNIDAZOLE 500 MG TABLET PO SCH ×3 (07:29→20:30)
[2017-12-17] MEDS: DEXTROMETHORPHAN HBR PO SCH (07:30)
[2017-12-17] MEDS: Insulin LISPRO 300 UNITS/3 ML VIAL SQ SCH ×4 (07:30→20:54)
[2017-12-17] MEDS: QUINIDINE PO SCH (07:30)
[2017-12-17] MEDS: Insulin DETEMIR 100 UNIT/ML X5UNITS SQ SCH ×2 (07:42→20:53)
--- NOTE | 2017-12-17 08:32 | Internal Med Progress Note ---
<Jess Lin - Last Filed: 12/17/17 08:35> Hospitalist Progress Note - Encounter Date of Encounter: 12/17/17 Time of Encounter: 08:35 - Subjective Interval History: Mr. Bentley is a 72 y/o male with a pmh of CKD 3, CHF with reduced EF, CAD s/p CABG, diabetes type 2, and catatonia who presented to the ED from the long term for AMS.She was discharged the day before after being tx for sepsis 2/2 UTI and had to be intubated for acute respiratory failure. Pt later developed DVT and was put on anicoag, which was d/c'd secondary to hematuria. She was sent back and found to have an NSTEMI with troponin peak at 2.16 , UTI and TENISHA with CKD stage 3. Overnight Levemir not given due to blood glucose 132. Today patient feels nauseous and has not been wanting to eat. Denies SOB, abdominal pain, - Exam Vitals: Temp Pulse Resp BP Pulse Ox 98.4 F 74 17 128/69 97 12/17/17 06:40 12/17/17 07:00 12/17/17 06:40 12/17/17 06:40 12/17/17 06:40 Exam: Constitutional: Alert, in no acute distress Head: Normocephalic, atraumatic Heart: Normal, regular rate and rhythm, no murmurs Lungs: Clear to auscultation, no wheezes, rales, or rhonchi Abdomen: Soft, nondistended, nontender, bowel sounds present and normal, no guarding or rigidity. Extremities: multiple toe amputations bilaterally, + 2 pitting edema with redness present on anterior aspect of shins, No clubbing, Skin: Skin warm and dry, no lesions, no rashes, no jaundice Neurologic: Cooperative with exam, speech not slurred - Assessment and Plan (1) Sepsis Current Visit: No Status: Resolved Assessment and Plan: Infectious cause: pneumonia and UTI. Vitals currently wnl. WBC= 9.0, currently not meeting sepsis criteria. Blood culture 1/2 grew s. epidermidis, most likely contaminate. Repeat NGTD. Plan: - continue Cefepime (day 8), flagyl (day 7, continue through 12/18). - ID consulted, recommending current care - urine culture 12/10 -shonna albicans, - repeat BC on 12/12 - NGTD (2) Pneumonia Current Visit: Yes Status: Ruled-out Assessment and Plan: CXR/CT was concerning for infiltrates on B/L basal regions, possible aspiration pneumonia. Plan: -continue cefepime day 9 for psuedomonas/gram(+) and flagyl day 8 for anaerobic coverage - diet: thin liquids and advanced soft texture (3) Shonna infection Current Visit: Yes Status: Acute Assessment and Plan: urine culture: Candidda albicans (12/10). Pt was recently admitted for hematuria/ sepsis 2/2 UTI and was tx with Vanc and Cefepime, as per ID has had shonna in the past in urine. Also shonna in mouth and under skin folds. Plan: - ID consulted, Continue diflucan through 12/18. Nystatin swish and spit and topical - urology consulted for recurrent UTIs, awaiting recommendations (4) NSTEMI (non-ST elevated myocardial infarction) Current Visit: Yes Status: Acute Assessment and Plan: Elevated troponin: max 2.67, last troponin 0.86. No chest pain. Hx of CAD s/p CABG. TTE shows LVEF 30%. Global and segmental LV systolic dysfunction. Mildly dilated left ventricle. Atypical septal motion consistent with post-operative status. Mild-moderate mitral regurgitation. Mild tricuspid regurgitation. Plan: Cardiology consulted and recommended continued medical management: ASA, BB , statin. Restarted plavix (12/13/17). d/c heparin drip 12/12/17. (5) Acute kidney injury superimposed on chronic kidney disease Current Visit: Yes Status: Acute Assessment and Plan: Creatinine = 3.9 ( 3.76). GFR = 11, baseline 20. Baseline creatinine <3. Retroperitoneal US was unremarkable. Short HD today per nephrology. Plan: - nephrology consulted,, plan fo short HD today - currently no fluids running - avoid nephrotoxins (6) Chronic anemia Current Visit: No Status: Chronic Assessment and Plan: Stable. Most likely 2/2 to nutritional deficiency. Iron 36, Iron % sat 20, transferrin 130 Plan: continue home ferrous sulfate (7) Hypertension Current Visit: No Status: Chronic Assessment and Plan: Stable. Continue home med: amlodipine 10mg (8) Type 2 diabetes mellitus Current Visit: No Status: Chronic Assessment and Plan: 15 units of Levemir held last night, low yesterday 98. This morning 177, so 15 units Levemir given. Plan: - continue ISS to high dose - decrease to 10 units of Levemir (9) Catatonia Current Visit: Yes Status: Acute Assessment and Plan: Unsure of cause. Began following present illness, thought to be due to psychiatric illness. Worsened on Lorazepam but improved with memantine and NMDA antagonist. Plan: - continue memantine 5mg BID - psych consulted, in 1- 2 days, tomorrow can increase memantine 5mg AM and 10mg PM, after 3 days increase to 10mg BID (10) Atrial flutter with rapid ventricular response Current Visit: Yes Status: Acute Assessment and Plan: Atrial flutter with RVR seen on biventriculr ICD.New diagnosis, since 12/09/17. Currently resolved, HR wnl. Plan: - continue increased home med toprol XL to 50 mg (home dose). - avoiding cardizem in the setting of known CMP EF 30%. - cardiology talked to family and have concluded anticoagulation risks out weight benefits - continue ASA and Plavix DVT Prophylaxis: sq heparin - Time Spent with Patient Total time spent is greater than 50% in coordination of care (as documented) at patient's floor/unit and/or counseling patient: Internal Medicine: Result - Labs CBC & Chem 7: 12/17/17 03:35 12/17/17 03:35 Labs: Short CBC 12/17/17 Range/Units 03:35 WBC 9.0 (4.3-11.1) K/mcL Hgb 8.0 L (11.5-15.4) g/dL Hct 26.2 L (35.3-44.9) % Plt Count 281 (140-400) K/mcL Neutrophils # 6.8 (1.6-8.9) K/mcL BMP 12/17/17 03:35 Sodium 138 Potassium 4.2 Chloride 104 Carbon Dioxide 27 BUN 30 H Creatinine 2.50 H Glucose 147 H Calcium 8.4 L Liver Function 12/17/17 Range/Units 03:35 Total Bilirubin 0.4 (0.3-1.0) mg/dL AST 14 (13-39) Units/L ALT 10 (7-52) Units/L Alkaline Phosphatase 92 (34-104) Units/L Albumin 2.5 L (3.5-5.7) g/dL - ABG Interpretation ABG results: PT/INR, D-dimer PT 15.6 Seconds (9.4-12.1) H 12/10/17 02:55 - VTE Documentation of Mechanical Device: Intermittent pneumatic compression device Consult Discharge Plan - Plan Instructions: BiPAP, Art Director (GEN) Referrals: Wale Lam DO [Primary Care Provider] - (PATIENT IS GOING TO ECF NO PCP APPOINTMENT NEEDED) <Isabel Rocha - Last Filed: 12/17/17 15:11> Hospitalist Progress Note - Encounter Date of Encounter: 12/17/17 - Exam Vitals: Temp Pulse Resp BP Pulse Ox 98.2 F 72 18 95/55 96 12/17/17 11:44 12/17/17 11:44 12/17/17 11:44 12/17/17 11:44 12/17/17 11:44 - Assessment and Plan (1) DVT prophylaxis Current Visit: Yes Status: Acute (2) Acute kidney injury superimposed on chronic kidney disease Current Visit: Yes Status: Acute (3) Hypertension Current Visit: No Status: Chronic (4) Type 2 diabetes mellitus Current Visit: No Status: Chronic (5) Chronic systolic heart failure Current Visit: No Status: Chronic (6) Pneumonia Current Visit: Yes Status: Ruled-out (7) Sepsis Current Visit: Yes Status: Acute (8) UTI (urinary tract infection) Current Visit: Yes Status: Acute (9) Obesity (BMI 30-39.9) Current Visit: No Status: Chronic (10) NSTEMI (non-ST elevated myocardial infarction) Current Visit: Yes Status: Acute (11) Catatonia Current Visit: Yes Status: Acute (12) Shonna infection Current Visit: Yes Status: Acute (13) Chronic anemia Current Visit: No Status: Chronic - Time Spent with Patient Total time spent is greater than 50% in coordination of care (as documented) at patient's floor/unit and/or counseling patient: Internal Medicine: Result - Labs CBC & Chem 7: 12/17/17 03:35 12/17/17 03:35 Labs: Short CBC 12/17/17 Range/Units 03:35 WBC 9.0 (4.3-11.1) K/mcL Hgb 8.0 L (11.5-15.4) g/dL Hct 26.2 L (35.3-44.9) % Plt Count 281 (140-400) K/mcL Neutrophils # 6.8 (1.6-8.9) K/mcL BMP 12/17/17 03:35 Sodium 138 Potassium 4.2 Chloride 104 Carbon Dioxide 27 BUN 30 H Creatinine 2.50 H Glucose 147 H Calcium 8.4 L Liver Function 12/17/17 Range/Units 03:35 Total Bilirubin 0.4 (0.3-1.0) mg/dL AST 14 (13-39) Units/L ALT 10 (7-52) Units/L Alkaline Phosphatase 92 (34-104) Units/L Albumin 2.5 L (3.5-5.7) g/dL - ABG Interpretation ABG results: PT/INR, D-dimer PT 15.6 Seconds (9.4-12.1) H 12/10/17 02:55 - Attending Attestation I examined this patient and my medical decision-making was reviewed with the Resident Physician. I agree with the documented findings, disposition and treatment plan as described except to the extent set forth below. <Jess Lin - Last Filed: 12/17/17 08:35> (1) Sepsis Qualifiers: Sepsis type: sepsis due to unspecified organism Qualified Code(s): A41.9 - Sepsis, unspecified organism (2) Pneumonia Qualifiers: Pneumonia type: due to unspecified organism Laterality: right Lung location : lower lobe of lung Qualified Code(s): J18.1 - Lobar pneumonia, unspecified organism (7) Hypertension Qualifiers: Hypertension type: essential hypertension Qualified Code(s): I10 - Essential (primary) hypertension (8) Type 2 diabetes mellitus Qualifiers: Diabetes mellitus long-term insulin use: with predatory animal exterminator use Diabetes mellitus complication status: with kidney complications Diabetes mellitus complication detail: with chronic kidney disease Chronic kidney disease stage: stage 4 (severe) Qualified Code(s): E11.22 - Type 2 diabetes mellitus with diabetic chronic kidney disease; N18.4 - Chronic kidney disease, stage 4 (severe ); Z79.4 - terminal make up operator (current) use of insulin <Isabel Rocha - Last Filed: 12/17/17 15:11> (3) Hypertension Qualifiers: Hypertension type: essential hypertension Qualified Code(s): I10 - Essential (primary) hypertension (4) Type 2 diabetes mellitus Qualifiers: Diabetes mellitus predatory animal exterminator insulin use: with long-term use Diabetes mellitus complication status: with kidney complications Diabetes mellitus complication detail: with chronic kidney disease Chronic kidney disease stage: stage 4 (severe) Qualified Code(s): E11.22 - Type 2 diabetes mellitus with diabetic chronic kidney disease; N18.4 - Chronic kidney disease, stage 4 (severe ); Z79.4 - terminal make up operator (current) use of insulin (6) Pneumonia Qualifiers: Pneumonia type: due to unspecified organism Laterality: right Lung location : lower lobe of lung Qualified Code(s): J18.1 - Lobar pneumonia, unspecified organism (7) Sepsis Qualifiers: Sepsis type: sepsis due to unspecified organism Qualified Code(s): A41.9 - Sepsis, unspecified organism (8) UTI (urinary tract infection) Qualifiers: Urinary tract infection type: site unspecified Hematuria presence: without hematuria Qualified Code(s): N39.0 - Urinary tract infection, site not specified
[2017-12-17] MEDS: Ondansetron 4 MG/2 ML VIAL IVP PRN (09:36)
--- NOTE | 2017-12-17 09:45 | Nephrology Progress Note ---
Date of Encounter: 12/17/17 Time of Encounter: 09:45 - Assessment and Plan (1) Acute kidney injury Current Visit: No Status: Acute Patient with TENISHA that initially improved and then worsened. Started on hemodialysis and she is s/p DIVERSIONAL THERAPIST'S ASSISTANT x 2 with improvement in her edema and blood pressure. Will hold on dialysis today and reevaluate for dialysis need on Tuesday. Avoid nephrotoxins and adjust medications for renal function. (2) Elevated troponin Current Visit: Yes Status: Acute Per cardiology (3) Anemia Current Visit: No Status: Acute Transfusion parameters per primary team Qualifiers: Anemia type: unspecified type Qualified Code(s): D64.9 - Anemia, unspecified (4) CKD (chronic kidney disease) stage 4, GFR 15-29 ml/min Current Visit: No Status: Chronic Baseline GFR in the 20s (5) UTI (urinary tract infection) Current Visit: Yes Status: Acute Per primary team Urology and ID consulted. Qualifiers: Urinary tract infection type: site unspecified Hematuria presence: without hematuria Qualified Code(s): N39.0 - Urinary tract infection, site not specified Subjective Principal diagnosis: NSTEMI Interval history: Patient seen. Her daughter is at her bedside. Patient still with catatonia so review of systems is unavailable. Objective - Vital Signs Vital signs: Vital Signs Temp Pulse Resp BP Pulse Ox 12/17/17 07:00 74 12/17/17 06:40 98.4 F 74 17 128/69 97 12/17/17 03:41 98.4 F 75 16 109/80 96 12/16/17 23:19 97.3 F L 81 16 103/60 96 12/16/17 20:51 67 98 12/16/17 19:55 98.0 F 65 16 110/66 98 12/16/17 16:01 98.6 F 75 16 102/67 96 12/16/17 13:31 97.4 F L 78 16 113/60 12/16/17 13:11 96.7 F L 18 124/55 12/16/17 13:00 94/56 12/16/17 12:45 88/46 12/16/17 12:30 92/40 12/16/17 12:15 94/42 12/16/17 12:00 98/57 12/16/17 11:45 104/58 12/16/17 11:30 105/58 12/16/17 11:15 108/49 12/16/17 11:00 103/48 12/16/17 10:45 116/66 12/16/17 10:30 97.6 F 18 112/61 Intake and Output 12/16/17 12/17/17 12/17/17 23:59 07:59 15:59 Intake Total 170 / 170 0 / 0 120 / 120 Output Total 200 / 200 100 / 100 Balance -30 / -30 -100 / -100 120 / 120 Intake: IV Fluids Maxipime 1,000 MG In Water for inj. (sterile) 10 ML @ 300 mls/ hr IVP QPM [facility] Rx#:[id number] Oral 160 / 160 0 / 0 120 / 120 Output: Catheter 200 / 200 100 / 100 Other: Meal Dinner Breakfast Percent of Meal Consumed 0% 10% Stool Size Moderate Stool Consistency loose Weight 104.8 kg Blood Glucose* 132 171 - General Appearance General appearance: Present: well-developed, well-nourished EENT: Present: ATNC Neck: Present: supple Respiratory: Present: clear Cardiology: Present: edema, regular rate Gastrointestinal: Present: obese Integumentary: Present: warm and dry Additional Comments: Alert She does not answer questions Psychiatric: Present: mood/affect appropriate - Lab 12/17/17 03:35 12/17/17 03:35 Most recent lab results Calcium 8.4 mg/dL (8.6-10.3) L 12/17/17 03:35 Phosphorus 2.1 mg/dL (2.7-4.5) L 12/10/17 00:46 Magnesium 1.9 mg/dL (1.6-2.6) 12/11/17 05:40 Urine Creatinine 79 mg/dL 12/10/17 15:45 Urine Sodium 72.1 mEq/L 12/10/17 15:45 - VTE Documentation of Mechanical Device: Intermittent pneumatic compression device Consult Discharge Plan - Plan Instructions: BiPAP, Cigar Head Stringer (GEN) Referrals: Wale Lam DO [Primary Care Provider] - (PATIENT IS GOING TO [facility] NO PCP APPOINTMENT NEEDED)
--- NOTE | 2017-12-17 10:56 | Urology - Consult Note ---
Date of Encounter: 12/17/17 Time of Encounter: 10:54 - Assessment and Plan (1) Yolanda infection Current Visit: Yes Status: Acute Assessment and plan: 72-year-old woman with Yolanda in her urine, bilateral hydronephrosis, and indwelling catheter. We currently have her maximally drained with the stents and indwelling catheter. The stents can be changed every 3 months. 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 Eradication of her infection would be difficult. For now, I recommend continued catheter drainage with the Elizondo catheter. It should be changed every 3-4 weeks or as needed. We will continue the indwelling stents. I do not think changing the stents more urgently will improve her risks for infection. We will follow along with ID in nephrology regarding her infection standpoint and renal function. If she needs to be chronically dialyzed, consideration could be made to remove her stents and Elizondo catheter. There would be a risk of her infection returning and if she is obstructed potentially having recurrent severe infection because her kidneys are not drained. Urology will follow along. Please call with any questions. (2) UTI (urinary tract infection) Current Visit: Yes Status: Acute Qualifiers: Urinary tract infection type: site unspecified Hematuria presence: without hematuria Qualified Code(s): N39.0 - Urinary tract infection, site not specified (3) Bilateral hydronephrosis Current Visit: No Status: Acute Urology CN:HPI Consult date: 12/17/17 Reason for consult Urology: Other (uti) Requesting physician: Isabel Rocha History of present illness: 72-year-old woman well known to the urology service is seen in follow-up consultation for recurrent urinary tract infections. She had bilateral ureteral stents placed by Dr. Antunez for bilateral hydronephrosis. She returned with urinary tract infection and sepsis. She has an indwelling catheter. Yolanda has grown out. She is seen today with a family member. She denies any issues with the Elizondo catheter. She is currently getting dialysis. She is not having any fevers or chills. She is currently at her baseline mental from a mental status standpoint Past Med Surg Social Fam HX - Past Medical History Medical history: cardiomyopathy, CHF, coronary artery disease, CVA, diabetes, GERD, hyperlipidemia, hypertension, kidney stones, myocardial infarction, peripheral artery disease, renal disease, TIA Additional medical history: renal insufficiency, blood thinner Psychiatric history: depression, previous psychiatric hospitalization - Past Surgical History Surgical History: appendectomy, breast surgery, carotid endarterectomy, cholecystectomy, coronary bypass (CABG), hysterectomy, pacemaker/AICD, LE vascular intervention Additional surgical history: cyst removed in left breast, left chest pacer/AICD - Social History Smoking Status: Former smoker Smokeless Tobacco Status: No Alcohol use: none Drug use: none - Family History Mother Living Status: Hx Family Cardiac Disorders: Yes (HTN) Hx Family Endocrine Disorder: Yes (diabetes) Hx Family Neurologic Disorders: Yes (2 strokes) Father Living Status: Hx Family Cardiac Disorders: Yes Hx Family Respiratory Disorders: Yes Hx Family Neurologic Disorders: Yes Medications and Allergies Aspirin Enteric Coated [Aspirin EC] 81 mg PO DAILY 08/20/15 [History] Metoprolol XL (24 HR) Succ [Toprol Xl] 50 mg PO DAILY #30 tab.er.24h 01/07/16 [ Rx] Insulin Glargine,Hum.rec.anlog [Toujeo Solostar] 45 units SQ HS 06/10/16 [ History] Multivit-Minerals/Folic/Ginkgo [One Daily For Women 50+ Adv Tb] 1 tab PO DAILY 06/10/16 [History] Furosemide [Lasix] 40 mg PO QAM 10/03/16 [History] Insulin ASPART [Novolog Flexpen] 25 unit SQ TIDWM 10/03/16 [History] Clopidogrel [Plavix] 75 mg PO DAILY 11/03/17 [History] Oxybutynin Chloride [Ditropan Xl] 10 mg PO DAILY 11/03/17 [History] Rosuvastatin Calcium 10 mg PO HS 11/03/17 [History] Ascorbic Acid [Vitamin C] 500 mg PO BID 11/17/17 [History] Ergocalciferol (VITAMIN D2) [Vitamin D2] 50,000 unit PO QWEEK 11/17/17 [History] Dextromethorphan HBr/Quinidine [Nuedexta 20-10 mg Capsule] 1 each PO DAILY 30 Days #30 capsule 12/08/17 [Rx] Ferrous Sulfate 325 mg PO DAILY@0800 tablet 12/08/17 [Rx] LORazepam [Ativan] 1 mg PO TID 6 Days #18 tablet 12/08/17 [Rx] Miconazole 2% ointment [Aloe [place] Antifungal Ointment] 1 appl TP DAILY tube [Rx] amLODIPine [Norvasc] 10 mg PO DAILY tablet 12/08/17 [Rx] 3 Allergy/AdvReac Type Severity Reaction Status Date / Time venom-honey bee Allergy Severe Swelling Verified 11/03/17 10:53 [bee venom (honey bee)] of Lip/Tongue/Throat Cortisone Allergy Mild Hives Verified 11/03/17 10:53 Penicillins Allergy See Verified 11/03/17 10:53 Comments NSAIDS (Non-Steroidal AdvReac Mild UPSET Verified 11/03/17 10:53 Anti-Inflamma STOMACH cefazolin [From Ancef] AdvReac Hives Verified 11/03/17 10:53 Oxlzeqg-Kbb-Kbb Reductase AdvReac Muscle Pain Verified 11/03/17 10:53 Inhibitor [Statins] GRAPE FLAVOR Allergy Mild Swelling Uncoded 11/03/17 10:53 of the Eye Review of Systems - Constitutional no chills, no fever(s) - EENT Nose, mouth and throat: no dizziness - Cardiovascular no chest pain - Respiratory no dyspnea - Gastrointestinal no nausea, no vomiting - Genitourinary Genitourinary: no flank pain, no hematuria - Musculoskeletal no back pain - Integumentary no erythema, no rash - Neurological no weakness - Psychiatric no suicidal ideation - Hematologic/Lymphatic no easy bleeding - Allergic/Immunologic no wheezing Exam Initial Vital Signs Temp Pulse Resp BP Pulse Ox 102.2 F H 93 24 134/71 95 12/09/17 13:09 12/09/17 13:09 12/09/17 13:09 12/09/17 13:09 12/09/17 13:09 - General physical appearance Present: well developed, well nourished, no distress - Eyes Absent: icteric - ENT Present: normal nares - Neck Present: trachea midline - Respiratory Present: normal respiratory effort - Cardiovascular Cardiovascular exam IM: RRR - Abdomen Abdomen: Present: soft - Genitourinary Present: other (Elizondo catheter in place with clear urine) - Integumentary Present: no rash - Neurologic Present: normal coordination - Musculoskeletal Present: other (Grossly normal) Urology Results - Labs 12/17/17 03:35 12/17/17 03:35 Abnormal lab results RBC 2.83 M/mcL (3.82-4.97) L 09/15/18 03:35 Hgb 8.0 g/dL (11.5-15.4) L 12/17/17 03:35 Hct 26.2 % (35.3-44.9) L 12/17/17 03:35 MCHC 30.5 g/dL (31.6-35.5) L 12/17/17 03:35 RDW 16.7 % (11.5-14.5) H 12/17/17 03:35 Immature Gran % 14.2 % (0-4) H 12/14/17 05:32 Band Neutrophils % 6.0 % (0-4) H 12/17/17 03:35 Metamyelocytes % 2.0 % (0) H 12/17/17 03:35 Nucleated RBCs/100 WBC 0.7 /100 WBC (0) H 12/17/17 03:35 Anisocytosis 1+ (Not Present) A 12/17/17 03:35 PT 15.6 Seconds (9.4-12.1) H 12/10/17 02:55 APTT 71.2 Seconds (26.0-36.0) H 12/10/17 02:55 VBG pH 7.45 pH Units (7.32-7.42) H 12/09/17 15:36 VBG pCO2 39 mmHg (41-51) L 12/09/17 15:36 VBG pO2 100 mmHg (25-50) H 12/09/17 15:36 BUN 30 mg/dL (8-23) H 12/17/17 03:35 Creatinine 2.50 mg/dL (0.60-1.20) H 12/17/17 03:35 Est GFR ( Amer) 23 (> 60) L 12/17/17 03:35 Est GFR (Non-Af Amer) 19 (> 60) L 12/17/17 03:35 Glucose 147 mg/dL (70-105) H 12/17/17 03:35 POC Glucose 132 mg/dL (70-99) H 12/16/17 19:57 Calcium 8.4 mg/dL (8.6-10.3) L 12/17/17 03:35 Phosphorus 2.1 mg/dL (2.7-4.5) L 12/10/17 00:46 Iron 36 mcg/dL (50-170) L 12/12/17 06:29 Transferrin 130 mg/dL (203-362) L 12/12/17 06:29 Direct Bilirubin 0.3 mg/dL (0.0-0.2) H 12/09/17 13:10 Troponin I 0.86 ng/mL (< 0.04) H* 12/10/17 06:31 Albumin 2.5 g/dL (3.5-5.7) L 12/17/17 03:35 Globulin 3.9 g/dL (2.4-3.5) H 12/17/17 03:35 Albumin/Globulin Ratio 0.6 (1.1-2.2) L 12/17/17 03:35 Prealbumin 10.3 mg/dL (17.0-34.0) L 12/09/17 18:56 Amylase 20 Units/L (29-103) L 12/13/17 16:32 Urine Clarity Turbid (Clear) A 12/09/17 16:02 Urine Protein >=300 mg/dL (Neg-Trace) H 12/09/17 16:02 Urine Blood Large (Negative) H 12/09/17 16:02 Ur Leukocyte Esterase Large (Negative) H 12/09/17 16:02 Urine Microscopic RBC 30-50 per hpf (0-3) H 12/09/17 16:02 Urine Microscopic WBC TNTC per hpf (0-3) H 12/09/17 16:02 Ur Squamous Epith Cells Many per lpf (None-Few) H 12/09/17 16:02 Urine Bacteria Many per hpf (None-Few) H 12/09/17 16:02 Ur Culture Indicated? NO. (NO) A 12/09/17 16:02 Staphylococcus sp PCR DETECTED (Not Detect) A 12/09/17 15:13 mecA-Methicil Res Gene DETECTED (Not Detect) A 12/09/17 15:13 Diabetes panel 12/17/17 Range/Units 03:35 Sodium 138 (136-145) mEq/L Potassium 4.2 (3.5-5.1) mEq/L Chloride 104 (98-107) mEq/L Carbon Dioxide 27 (23-29) mEq/L BUN 30 H (8-23) mg/dL Creatinine 2.50 H (0.60-1.20) mg/dL Glucose 147 H (70-105) mg/dL Calcium 8.4 L (8.6-10.3) mg/dL AST 14 (13-39) Units/L ALT 10 (7-52) Units/L Alkaline Phosphatase 92 (34-104) Units/L Albumin 2.5 L (3.5-5.7) g/dL Calcium panel 12/17/17 Range/Units 03:35 Calcium 8.4 L (8.6-10.3) mg/dL Albumin 2.5 L (3.5-5.7) g/dL Pituitary panel 12/17/17 Range/Units 03:35 Sodium 138 (136-145) mEq/L Potassium 4.2 (3.5-5.1) mEq/L Chloride 104 (98-107) mEq/L Carbon Dioxide 27 (23-29) mEq/L BUN 30 H (8-23) mg/dL Creatinine 2.50 H (0.60-1.20) mg/dL Glucose 147 H (70-105) mg/dL Calcium 8.4 L (8.6-10.3) mg/dL Adrenal panel 12/17/17 Range/Units 03:35 Sodium 138 (136-145) mEq/L Potassium 4.2 (3.5-5.1) mEq/L Chloride 104 (98-107) mEq/L Carbon Dioxide 27 (23-29) mEq/L BUN 30 H (8-23) mg/dL Creatinine 2.50 H (0.60-1.20) mg/dL Glucose 147 H (70-105) mg/dL Calcium 8.4 L (8.6-10.3) mg/dL Total Bilirubin 0.4 (0.3-1.0) mg/dL AST 14 (13-39) Units/L ALT 10 (7-52) Units/L Alkaline Phosphatase 92 (34-104) Units/L Albumin 2.5 L (3.5-5.7) g/dL All other labs normal. - Imaging CT scan - abdomen: report reviewed, image reviewed CT scan - pelvis: report reviewed, image reviewed Consult Discharge Plan - Plan Instructions: BiPAP, Frequency Checker (GEN) Referrals: Wale Lam DO [Primary Care Provider] - (PATIENT IS GOING TO [facility] NO PCP APPOINTMENT NEEDED)
[2017-12-17] MEDS: Cefepime HCl 1,000 MG in Water for inj. (sterile) 20 ML 10 ML IVP SCH (16:49)
[2017-12-18 03:41] LABS: Hematocrit 25.2 % (35.3-44.9); Hemoglobin 7.5 g/dL (11.5-15.4); Mean Corpuscular HGB Conc 29.8 g/dL (31.6-35.5); Mean Corpuscular Hemoglobin 27.2 pg (28.0-33.3); Mean Corpuscular Volume 91.3 fL (83.0-100.0); Platelet Count 270 K/mcL (140-400); Red Blood Count 2.76 M/mcL (3.82-4.97); Red Cell Distribution Width 17.2 % (11.5-14.5)
[2017-12-18 04:05] LABS: Calcium 8.6 mg/dL (8.6-10.3); Potassium 3.9 mEq/L (3.5-5.1)
[2017-12-18] MEDS: *HR* Heparin 5,000 UNIT/ML VIAL SQ SCH ×2 (05:37→16:18)
[2017-12-18] MEDS: Ascorbic Acid 500 MG TABLET PO SCH ×2 (07:40→21:29)
[2017-12-18] MEDS: Aspirin 325 MG TABLET PO SCH (07:40)
[2017-12-18] MEDS: metroNIDAZOLE 500 MG TABLET PO SCH ×3 (07:40→21:29)
[2017-12-18] MEDS: amLODIPine 5 MG TABLET PO SCH (07:40)
[2017-12-18] MEDS: Fluconazole 100 MG TABLET PO SCH (07:40)
[2017-12-18] MEDS: Metoprolol XL (24 HR) Succ 25 MG TAB.ER.24H PO SCH (07:41)
[2017-12-18] MEDS: Nystatin SUSP 5 ML UD.LIQ PO SCH ×4 (07:41→21:29)
[2017-12-18] MEDS: Insulin DETEMIR 100 UNIT/ML X5UNITS SQ SCH ×2 (07:41→21:28)
[2017-12-18] MEDS: Nystatin Cream 15 GM TUBE TP SCH ×2 (07:42→21:31)
[2017-12-18] MEDS: Nystatin POWDER 30 GM BOTTLE TP SCH ×2 (07:42→21:31)
[2017-12-18] MEDS: Insulin LISPRO 300 UNITS/3 ML VIAL SQ SCH ×4 (07:42→21:30)
[2017-12-18] MEDS: MICONAZOLE NITRATE 57 GM TUBE TP SCH ×2 (07:42→21:30)
[2017-12-18] MEDS: DEXTROMETHORPHAN HBR PO SCH (07:43)
[2017-12-18] MEDS: QUINIDINE PO SCH (07:43)
--- NOTE | 2017-12-18 08:56 | Nephrology Progress Note ---
Date of Encounter: 12/18/17 Time of Encounter: 08:55 - Assessment and Plan (1) Acute kidney injury Current Visit: No Status: Acute Patient with TENISHA that initially improved and then worsened. Started on hemodialysis and she is s/p CERTIFIED INDUSTRIAL HYGIENIST x 2 with improvement in her edema and blood pressure. Will hold on dialysis today and reevaluate for dialysis need on Tuesday. Avoid nephrotoxins and adjust medications for renal function. (2) Elevated troponin Current Visit: Yes Status: Acute Per cardiology (3) Anemia Current Visit: No Status: Acute Transfusion parameters per primary team Qualifiers: Anemia type: unspecified type Qualified Code(s): D64.9 - Anemia, unspecified (4) CKD (chronic kidney disease) stage 4, GFR 15-29 ml/min Current Visit: No Status: Chronic Baseline GFR in the 20s (5) UTI (urinary tract infection) Current Visit: Yes Status: Acute Per primary team Urology and ID consulted. Qualifiers: Urinary tract infection type: site unspecified Hematuria presence: without hematuria Qualified Code(s): N39.0 - Urinary tract infection, site not specified Subjective Principal diagnosis: NSTEMI Interval history: Patient seen. Her daughter is at her bedside. Patient still with catatonia so review of systems is unavailable. Objective - Vital Signs Vital signs: Vital Signs Temp Pulse Resp BP Pulse Ox 12/18/17 07:59 73 95 12/18/17 07:24 98.2 F 73 18 113/69 99 12/18/17 03:21 98.4 F 72 18 120/66 98 12/17/17 23:59 97.8 F 63 18 107/67 100 12/17/17 19:18 98.3 F 73 18 106/56 93 12/17/17 15:46 98.1 F 67 17 104/57 93 12/17/17 15:00 69 12/17/17 11:44 98.2 F 72 18 95/55 96 12/17/17 11:00 72 Intake and Output 12/17/17 12/18/17 12/18/17 23:59 07:59 15:59 Intake Total Output Total 325 / 325 200 / 200 Balance -315 / -315 -200 / -200 Intake: IV Fluids Maxipime 1,000 MG In Water for inj. (sterile) 10 ML @ 300 mls/ hr IVP QPM [facility] Rx#:[id number] Output: Urine 325 / 325 Catheter 200 / 200 Urethral (Elizondo) 200 / 200 Other: Weight 104.5 kg Blood Glucose* 183 162 Patient Weight 12/18/17 23:59 Weight 104.5 kg - General Appearance General appearance: Present: well-developed, well-nourished Cardiology: Present: regular rate - Lab 12/18/17 03:25 12/18/17 03:25 Most recent lab results Calcium 8.6 mg/dL (8.6-10.3) 12/18/17 03:25 Phosphorus 2.1 mg/dL (2.7-4.5) L 12/10/17 00:46 Magnesium 1.9 mg/dL (1.6-2.6) 12/11/17 05:40 Urine Creatinine 79 mg/dL 12/10/17 15:45 Urine Sodium 72.1 mEq/L 12/10/17 15:45 - VTE Documentation of Mechanical Device: Intermittent pneumatic compression device Consult Discharge Plan - Plan Instructions: BiPAP, Organizational Development Manager (GEN) Referrals: Wale Lam DO [Primary Care Provider] - ([facility]IENT IS GOING TO [facility] NO PCP APPOINTMENT NEEDED)
--- NOTE | 2017-12-18 09:26 | Internal Med Progress Note ---
<RileyJess - Last Filed: 12/18/17 09:21> Hospitalist Progress Note - Encounter Date of Encounter: 12/18/17 Time of Encounter: 09:51 - Subjective Interval History: Mr. Bentley is a 72 y/o male with a pmh of CKD 3, CHF with reduced EF, CAD s/p CABG, diabetes type 2, and catatonia who [facility].She was discharged the day before after being tx for sepsis 2/2 UTI and had to be intubated for acute respiratory failure. Pt later developed DVT and was put on anicoag, which was d/c'd secondary to hematuria. She was sent back and found to have an NSTEMI with troponin peak at 2.16 , UTI and TENISHA with CKD stage 3. Today patient feels nauseous and has not been wanting to eat. Denies SOB, abdominal pain, - Exam Vitals: Temp Pulse Resp BP Pulse Ox 98.2 F 73 18 113/69 95 12/18/17 07:24 12/18/17 07:59 12/18/17 07:24 12/18/17 07:24 12/18/17 07:59 Exam: Constitutional: Alert, in no acute distress HEENT: central line right side of neck, Normocephalic, atraumatic Heart: Normal, regular rate and rhythm, no murmurs Lungs: Clear to auscultation, no wheezes, rales, or rhonchi Abdomen: Soft, nondistended, nontender, bowel sounds present and normal, no guarding or rigidity. Extremities: multiple toe amputations bilaterally, + 2 pitting edema with redness present on anterior aspect of shins, No clubbing, Skin: Skin warm and dry, no lesions, no rashes, no jaundice Neurologic: Cooperative with exam, speech not slurred - Assessment and Plan (1) Sepsis Current Visit: Yes Status: Acute Assessment and Plan: Infectious cause: pneumonia and UTI. Vitals currently wnl. WBC wnl, currently not meeting sepsis criteria, resolved. Blood culture 1/2 grew s. epidermidis, most likely contaminate. Repeat BC (12/12) NGTD. Plan: - continue Cefepime (day 9), flagyl (day 8), and Diflucan, stop after today - ID consulted, recommending stopping all antibiotics and diflucan after today - urine culture 12/10 -shonna albicans - repeat BC on 12/12 - NGTD - resolved sepsis, no need for fluids (2) Pneumonia Current Visit: Yes Status: Ruled-out Assessment and Plan: CXR/CT was concerning for infiltrates on B/L basal regions, possible aspiration pneumonia. Plan: -continue cefepime day 9 (started 12/09/17) for psuedomonas/gram(+) and flagyl day 8 for anaerobic coverage, stop after tomorrow - diet: thin liquids and advanced soft texture (3) Shonna infection Current Visit: Yes Status: Acute Assessment and Plan: urine culture: Candidda albicans (12/10). Pt was recently admitted for hematuria/ sepsis 2/2 UTI and was tx with Vanc and Cefepime, as per ID has had shonna in the past in urine. Also shonna in mouth and under skin folds. Plan: - ID consulted, Continue diflucan through 12/18. Nystatin swish and spit and topical - urology consulted for recurrent UTIs, awaiting recommendations (4) NSTEMI (non-ST elevated myocardial infarction) Current Visit: Yes Status: Acute Assessment and Plan: Elevated troponin: max 2.67, last troponin 0.86. No chest pain. Hx of CAD s/p CABG. TTE shows LVEF 30%. Global and segmental LV systolic dysfunction. Mildly dilated left ventricle. Atypical septal motion consistent with post-operative status. Mild-moderate mitral regurgitation. Mild tricuspid regurgitation. Plan: Cardiology consulted and recommended continued medical management: ASA, BB , statin. Restarted plavix (12/13/17). d/c heparin drip 12/12/17. (5) Acute kidney injury superimposed on chronic kidney disease Current Visit: Yes Status: Acute Assessment and Plan: Creatinine = 3.41 (2.50) - worsening creatinine today, no HD today GFR = 11, baseline 20. Baseline creatinine <3. Retroperitoneal US was unremarkable. Nephrology following, HD on Tuesday. Plan: - nephrology consulted, HD on Tuesday - currently no fluids running - avoid nephrotoxins (6) Hypertension Current Visit: No Status: Chronic Assessment and Plan: Stable. Continue home med: amlodipine 10mg (7) UTI (urinary tract infection) Current Visit: Yes Status: Acute Assessment and Plan: Recurrent UTIs, Uine culture candidda. Urology consulted and stated most likely chronically colonized. Stents are placed, and can be changed every 3 months, plunkett catheter should bet changed every 3-4 weeks. Due to patient going home with plunkett will stop oxybutynin. See plan above. Plan: - continue Diflucan through today - stop oxybutynin (8) Type 2 diabetes mellitus Current Visit: No Status: Chronic Assessment and Plan: Glucoses well controlled on Levemir 10 units BID Plan: - continue ISS to high dose - 10 units of Levemir BID (9) Chronic systolic heart failure Current Visit: No Status: Chronic Assessment and Plan: Last ECHO was in 2017, LVEF at that time was 30%,Not in acute exacerbation Plan: -diuretics held 2/2 TENISHA; nephro gave a 1x dose of IV lasix (12/14/17) -strict I&O's -cardiac/diabetic diet (10) Catatonia Current Visit: Yes Status: Acute Assessment and Plan: Unsure of cause. Began following present illness, thought to be due to psychiatric illness. Worsened on Lorazepam but improved with memantine and NMDA antagonist. Plan: - memantine 5mg BID - psych consulted, after 1-2 days, can increase memantine 5mg AM and 10mg PM, after 3 days increase to 10mg BID (11) Chronic anemia Current Visit: No Status: Chronic Assessment and Plan: Stable. Most likely 2/2 to nutritional deficiency. Iron 36, Iron % sat 20, transferrin 130 Plan: continue home ferrous sulfate (12) Atrial flutter with rapid ventricular response Current Visit: Yes Status: Resolved Assessment and Plan: Currently rate controlled. Atrial flutter with RVR seen on biventriculr ICD. New diagnosis, since 12/09/17. Currently resolved, HR wnl. Plan: - continue increased home med toprol XL to 50 mg (home dose). - avoiding cardizem in the setting of known CMP EF 30%. - cardiology talked to family and have concluded anticoagulation risks out weight benefits - continue ASA and Plavix DVT Prophylaxis: SQ Heparin - Time Spent with Patient Total time spent is greater than 50% in coordination of care (as documented) at patient's floor/unit and/or counseling patient: Internal Medicine: Result - Labs CBC & Chem 7: 12/18/17 03:25 12/18/17 03:25 Labs: Short CBC 12/18/17 Range/Units 03:25 WBC 8.8 (4.3-11.1) K/mcL Hgb 7.5 L (11.5-15.4) g/dL Hct 25.2 L (35.3-44.9) % Plt Count 270 (140-400) K/mcL BMP 12/18/17 03:25 Sodium 140 Potassium 3.9 Chloride 105 Carbon Dioxide 25 BUN 34 H Creatinine 3.41 H Glucose 150 H Calcium 8.6 - ABG Interpretation ABG results: PT/INR, D-dimer PT 15.6 Seconds (9.4-12.1) H 12/10/17 02:55 - VTE Documentation of Mechanical Device: Intermittent pneumatic compression device Consult Discharge Plan - Plan Instructions: BiPAP, Medicine Man (GEN) Referrals: Wale Lam DO [Primary Care Provider] - (PATIENT IS GOING TO [facility] NO PCP APPOINTMENT NEEDED) <Isabel Rocha - Last Filed: 12/18/17 13:38> Hospitalist Progress Note - Encounter Date of Encounter: 12/18/17 - Exam Vitals: Temp Pulse Resp BP Pulse Ox 98.5 F 61 18 131/70 100 12/18/17 11:48 12/18/17 11:48 12/18/17 11:48 12/18/17 11:48 12/18/17 11:48 - Assessment and Plan (1) Acute kidney injury superimposed on chronic kidney disease Current Visit: Yes Status: Acute (2) Hypertension Current Visit: No Status: Chronic (3) Type 2 diabetes mellitus Current Visit: No Status: Chronic (4) Chronic systolic heart failure Current Visit: No Status: Chronic (5) Pneumonia Current Visit: Yes Status: Ruled-out (6) Sepsis Current Visit: Yes Status: Acute (7) UTI (urinary tract infection) Current Visit: Yes Status: Acute (8) NSTEMI (non-ST elevated myocardial infarction) Current Visit: Yes Status: Acute (9) Catatonia Current Visit: Yes Status: Acute (10) Shonna infection Current Visit: Yes Status: Acute (11) Chronic anemia Current Visit: No Status: Chronic (12) Atrial flutter with rapid ventricular response Current Visit: Yes Status: Resolved - Time Spent with Patient Total time spent is greater than 50% in coordination of care (as documented) at patient's floor/unit and/or counseling patient: Internal Medicine: Result - Labs CBC & Chem 7: 12/18/17 03:25 12/18/17 03:25 Labs: Short CBC 12/18/17 Range/Units 03:25 WBC 8.8 (4.3-11.1) K/mcL Hgb 7.5 L (11.5-15.4) g/dL Hct 25.2 L (35.3-44.9) % Plt Count 270 (140-400) K/mcL BMP 12/18/17 03:25 Sodium 140 Potassium 3.9 Chloride 105 Carbon Dioxide 25 BUN 34 H Creatinine 3.41 H Glucose 150 H Calcium 8.6 - ABG Interpretation ABG results: PT/INR, D-dimer PT 15.6 Seconds (9.4-12.1) H 12/10/17 02:55 - Attending Attestation I examined this patient and my medical decision-making was reviewed with the Resident Physician. I agree with the documented findings, disposition and treatment plan as described except to the extent set forth below. <Jess Lin - Last Filed: 12/18/17 09:21> (1) Sepsis Qualifiers: Sepsis type: sepsis due to unspecified organism Qualified Code(s): A41.9 - Sepsis, unspecified organism (2) Pneumonia Qualifiers: Pneumonia type: due to unspecified organism Laterality: right Lung location : lower lobe of lung Qualified Code(s): J18.1 - Lobar pneumonia, unspecified organism (6) Hypertension Qualifiers: Hypertension type: essential hypertension Qualified Code(s): I10 - Essential (primary) hypertension (7) UTI (urinary tract infection) Qualifiers: Urinary tract infection type: site unspecified Hematuria presence: without hematuria Qualified Code(s): N39.0 - Urinary tract infection, site not specified (8) Type 2 diabetes mellitus Qualifiers: Diabetes mellitus shelter insulin use: with shelter use Diabetes mellitus complication status: with kidney complications Diabetes mellitus complication detail: with chronic kidney disease Chronic kidney disease stage: stage 4 (severe) Qualified Code(s): E11.22 - Type 2 diabetes mellitus with diabetic chronic kidney disease; N18.4 - Chronic kidney disease, stage 4 (severe ); Z79.4 - custodial (current) use of insulin <Isabel Rocha - Last Filed: 12/18/17 13:38> (2) Hypertension Qualifiers: Hypertension type: essential hypertension Qualified Code(s): I10 - Essential (primary) hypertension (3) Type 2 diabetes mellitus Qualifiers: Diabetes mellitus terminal operator insulin use: with terminal operator use Diabetes mellitus complication status: with kidney complications Diabetes mellitus complication detail: with chronic kidney disease Chronic kidney disease stage: stage 4 (severe) Qualified Code(s): E11.22 - Type 2 diabetes mellitus with diabetic chronic kidney disease; N18.4 - Chronic kidney disease, stage 4 (severe ); Z79.4 - custodial (current) use of insulin (5) Pneumonia Qualifiers: Pneumonia type: due to unspecified organism Laterality: right Lung location : lower lobe of lung Qualified Code(s): J18.1 - Lobar pneumonia, unspecified organism (6) Sepsis Qualifiers: Sepsis type: sepsis due to unspecified organism Qualified Code(s): A41.9 - Sepsis, unspecified organism (7) UTI (urinary tract infection) Qualifiers: Urinary tract infection type: site unspecified Hematuria presence: without hematuria Qualified Code(s): N39.0 - Urinary tract infection, site not specified
[2017-12-18] MEDS: Cefepime HCl 1,000 MG in Water for inj. (sterile) 20 ML 10 ML IVP SCH (16:18)
[2017-12-18] MEDS: Acetaminophen 325 MG TABLET PO PRN (23:15)
[2017-12-18] MEDS: Ondansetron 4 MG/2 ML VIAL IVP PRN (23:25)
[2017-12-19] MEDS ORDERED: *HR* OxyCODONE/APAP 5/325 TABLET PO ONE (02:33)
[2017-12-19 03:40] LABS: Hematocrit 25.5 % (35.3-44.9); Hemoglobin 7.5 g/dL (11.5-15.4); Mean Corpuscular HGB Conc 29.4 g/dL (31.6-35.5); Mean Corpuscular Hemoglobin 27.7 pg (28.0-33.3); Mean Corpuscular Volume 94.1 fL (83.0-100.0); Mean Platelet Volume 10.6 fL (9.4-12.4); Platelet Count 269 K/mcL (140-400); Red Blood Count 2.71 M/mcL (3.82-4.97); Red Cell Distribution Width 17.5 % (11.5-14.5)
[2017-12-19 03:51] LABS: Calcium 8.7 mg/dL (8.6-10.3)
[2017-12-19] MEDS: *HR* Heparin 5,000 UNIT/ML VIAL SQ SCH ×2 (06:38→17:32)
[2017-12-19] MEDS ORDERED: 0.9 % Sodium Chloride 250 ML IVC PRN (07:31)
[2017-12-19] MEDS: Metoprolol XL (24 HR) Succ 25 MG TAB.ER.24H PO SCH (08:05)
[2017-12-19] MEDS: amLODIPine 5 MG TABLET PO SCH (08:05)
[2017-12-19] MEDS: Ascorbic Acid 500 MG TABLET PO SCH ×2 (08:09→21:11)
[2017-12-19] MEDS: Aspirin 325 MG TABLET PO SCH (08:09)
[2017-12-19] MEDS: Nystatin SUSP 5 ML UD.LIQ PO SCH ×4 (08:09→21:14)
[2017-12-19] MEDS: Insulin DETEMIR 100 UNIT/ML X5UNITS SQ SCH ×2 (08:10→21:14)
[2017-12-19] MEDS: Nystatin Cream 15 GM TUBE TP SCH ×2 (08:10→21:15)
[2017-12-19] MEDS: Insulin LISPRO 300 UNITS/3 ML VIAL SQ SCH ×4 (08:10→21:08)
[2017-12-19] MEDS: QUINIDINE PO SCH (08:11)
[2017-12-19] MEDS: MICONAZOLE NITRATE 57 GM TUBE TP SCH ×2 (08:11→19:44)
[2017-12-19] MEDS: DEXTROMETHORPHAN HBR PO SCH (08:11)
[2017-12-19] MEDS: Nystatin POWDER 30 GM BOTTLE TP SCH ×2 (08:11→21:15)
--- NOTE | 2017-12-19 08:43 | Infectious Disease Progress No ---
Date of Encounter: 12/19/17 Time of Encounter: 08:25 - Assessment and Plan (1) Severe sepsis Current Visit: Yes Status: Resolved No longer meets sepsis criteria. Fever, tachycardia, tachypnea, and leukocytosis are resolved. On admission, met 4 SIRS criteria with fever, tachycardia, tachypnea, and leukocytosis. Possibly secondary to candiduria/pneumonia. Uric acid was normal. Amylase and lipase are normal. Blood culture drawn 12/09 1 out of 2 is positive for Staph epidermidis. Likely contaminant, will not treat. Repeat blood cultures drawn 12/12 are negative. Cefepime, flagyl, diflucan completed yesterday. No further recommendations at this time. Will sign off. Please consult for further evaluation. (2) Candiduria Current Visit: Yes Status: Acute Urinalysis showed negative nitrite, large leukocyte esterase, and many urine bacteria. High protein, large blood, high RBC, and high WBC. Urine culture 12/10 showed yolanda albicans. Diflucan completed yesterday. (3) Pneumonia Current Visit: Yes Status: Ruled-out Legionella and Strep pneumoniae antigens are negative. CT abd/pelvis showed persistent bibasilar airspace disease, atelectasis vs pneumonia. CT chest showed moderate bilateral pleural effusion associated with dependent consolidation. Scattered ground glass opacity. Likely pulmonary edema, but superimposed pneumonia is possibility. Barium swallow study performed 12/02 showed grossly normal oral swallowing, no laryngeal penetration or aspiration. Antibiotics completed yesterday. Qualifiers: Pneumonia type: due to unspecified organism Laterality: right Lung location: lower lobe of lung Qualified Code(s): J18.1 - Lobar pneumonia, unspecified organism (4) Acute kidney injury superimposed on chronic kidney disease Current Visit: Yes Status: Acute Status post dialysis on 12/15 and 12/16 with initial improvement and now worsening of kidney function. Creatinine today is 4.08. CKD stage 4, baseline GFR 20. Most likely pre-renal Retroperitoneal ultrasound showed no hydronephrosis with normal renal echogenicity. Management per Nephrology. (5) NSTEMI (non-ST elevated myocardial infarction) Current Visit: Yes Status: Acute History of 3 vessel CAD s/p CABG. Elevated troponin at admission. Most likely demand ischemia type 2 TTE 12/10/17 showed LVEF 30%, unchanged from prior TTE 2016. Global and segmental LV systolic dysfunction. Management per Cardiology. (6) Catatonia Current Visit: Yes Status: Resolved History of depression. Recent of son and [id number]. Head CT showed no acute intracranial abnormality. Memantine. Management per Psychiatry. (7) Yolanda infection Current Visit: Yes Status: Acute In mouth and under skin folds. Nystatin. Management per primary team. (8) Chronic systolic heart failure Current Visit: No Status: Chronic Pacemaker and defibrillator. TTE 12/10/17 showed LVEF 30%, unchanged from prior TTE 2016. Global and segmental LV systolic dysfunction. Management per Cardiology. (9) Atrial flutter with rapid ventricular response Current Visit: Yes Status: Resolved Toprol Management per Cardiology. (10) Type 2 diabetes mellitus Current Visit: No Status: Chronic Insulin. Qualifiers: Diabetes mellitus buttermaker continuous churn insulin use: with prison use Diabetes mellitus complication status: with kidney complications Diabetes mellitus complication detail: with chronic kidney disease Chronic kidney disease stage : stage 4 (severe) Qualified Code(s): E11.22 - Type 2 diabetes mellitus with diabetic chronic kidney disease; N18.4 - Chronic kidney disease, stage 4 (severe ); Z79.4 - jail (current) use of insulin (11) Chronic anemia Current Visit: No Status: Chronic Hb level slowly decreasing. Today, Hb is 7.5. Transfusion parameters per primary team. (12) Hypertension Current Visit: No Status: Chronic On amlodipine. Qualifiers: Hypertension type: essential hypertension Qualified Code(s): I10 - Essential (primary) hypertension - Subjective Interval history: Patient seen and examined. No acute events overnight. The patient is awake and resting comfortably in bed being fed breakfast by . She is communicating with short answers and with nodding/shaking her head. Patient is alert and oriented to person and place, but not to time. Had dialysis on and Tuesday. reports patient had "leg pain" that required tylenol and "something stronger." Patient indicates it was right hip pain. Admits some discomfort at right hip at this time. Patient denies any other complaints. Patient denies cough. Denies chest pain, shortness of breath. Denies abdominal pain. Infect Dis PN-Objective Data - Labs CBC & Chem 7: 12/20/17 03:38 12/20/17 03:38 Labs: Laboratory Results - last 24 hr 12/18/17 12/18/17 12/18/17 07:23 11:32 16:06 WBC RBC Hgb Hct MCV MCH MCHC RDW Plt Count MPV Sodium Potassium Chloride Carbon Dioxide BUN Creatinine Est GFR ( Amer) Est GFR (Non-Af Amer) BUN/Creatinine Ratio Glucose POC Glucose 162 H 179 H 260 H Calculated Osmolality Calcium 12/18/17 12/19/17 12/19/17 20:38 03:05 03:05 WBC 9.1 RBC 2.71 L Hgb 7.5 L Hct 25.5 L MCV 94.1 MCH 27.7 L MCHC 29.4 L RDW 17.5 H Plt Count 269 MPV 10.6 Sodium 139 Potassium 4.0 Chloride 104 Carbon Dioxide 26 BUN 40 H Creatinine 4.08 H Est GFR ( Amer) 13 L Est GFR (Non-Af Amer) 11 L BUN/Creatinine Ratio 10 Glucose 162 H POC Glucose 222 H Calculated Osmolality 301 H Calcium 8.7 Cultures: Cultures 12/12/17 06:16 Blood Culture - Final Peripheral Venipuncture No growth. Final report. 12/12/17 06:29 Blood Culture - Final Peripheral Venipuncture No growth. Final report. 12/14/17 03:50 Legionella Antigen - Final Urine,[place] Streptococcus pneumoniae Antigen (M - Final 12/10/17 16:02 Urine Culture - Final Urine,[place] Yolanda albicans Serology 12/14/17 12/10/17 12/10/17 Range/Units 11:03 15:45 15:45 Ur Eosinophil Smear 0 (None Seen) % Urine Creatinine 79 mg/dL Urine Sodium 72.1 mEq/L Hep Bs Antigen Nonreactive (Nonreactive) Hep Bs Antibody 0.00 mIU/mL Exam - Constitutional Vitals: Temp Pulse Resp BP Pulse Ox 98.3 F 68 18 101/51 98 12/19/17 07:06 12/19/17 07:06 12/19/17 07:06 12/19/17 07:06 12/19/17 07:06 General appearance: cooperative, morbidly obese, no acute distress, no febrile - Head Head exam: Present: atraumatic, normal inspection, normocephalic - Eye Eye exam: Present: EOMI, normal appearance, PERRL - ENT ENT exam: Present: mucous membranes moist - Neck Neck exam: Present: normal inspection - Respiratory Respiratory exam: Present: CTAB. Absent: rales, respiratory distress, rhonchi, wheezes - Cardiovascular Cardiovascular exam: Present: RRR, +S1, +S2 - GI/Abdominal GI/Abdominal exam: Present: distended (obese), normal bowel sounds, soft. Absent: tenderness - Extremities Exam Extremities exam: Absent: joint swelling, normal inspection (stasis dermatitis bilateral LE ), pedal edema, tenderness - Neurological Exam Neurological exam: Present: alert. Absent: oriented X3 (Oriented to person and place, not to time. ) - Psychiatric Psychiatric exam: Present: depressed, flat affect - Skin Skin exam: Present: dry, intact, normal color, warm - VTE Documentation of Mechanical Device: Intermittent pneumatic compression device Consult Discharge Plan - Plan Instructions: BiPAP, Bight Maker (GEN) Referrals: Wale Lam DO [Primary Care Provider] - (PATIENT IS GOING TO [facility] NO PCP APPOINTMENT NEEDED) - Attending Attestation I examined this patient and my medical decision-making was reviewed with the Resident Physician. I agree with the documented findings, disposition and treatment plan as described except to the extent set forth below.
--- NOTE | 2017-12-19 09:10 | Internal Med Progress Note ---
<Anatoliy Ramirez S - Last Filed: 12/19/17 11:08> Hospitalist Progress Note - Encounter Date of Encounter: 12/19/17 Time of Encounter: 09:06 - Subjective Interval History: Pt is seen at the bedside. She was admitted on Tuesday (12/09/17) for AMS from her custodial. She was discharged the day before after being tx for sepsis 2/2 UTI and had to be intubated for acute respiratory failure. Pt later developed DVT and was put on anicoag, which was d/c'd secondary to hematuria. She was sent back and found to have an NSTEMI with troponin peak at 2.16 , UTI and TENISHA with CKD 3 The patient mentation is slightly better today. She is oriented to self, time and place today - She denies pain, CP, SOB , N/V/D Urine is yellow , no blood Nurses report no overnight events. - Exam Vitals: Temp Pulse Resp BP Pulse Ox 98.3 F 68 18 101/51 98 12/19/17 07:06 12/19/17 07:06 12/19/17 07:06 12/19/17 07:06 12/19/17 07:06 Exam: Constitutional: Alert, in no acute distress , disheveled HEENT: central line right side of neck, Normocephalic, atraumatic Heart: Normal, regular rate and rhythm, no murmurs Lungs: Clear to auscultation, no wheezes, rales, or rhonchi Abdomen: Soft, nondistended, nontender, obese Extremities: multiple toe amputations bilaterally, + 2 pitting edema with redness present on anterior aspect of shins, No clubbing, Skin: Skin warm and dry, no lesions, no rashes, no jaundice Neurologic: Cooperative with exam,, increased talking - Assessment and Plan (1) Sepsis Current Visit: Yes Status: Resolved Assessment and Plan: Infectious cause: pneumonia and UTI. Currently doesn't meet sepsis criteria WBC 9.1, HR 68, RR 18 -Blood culture 1/2 grew s. epidermidis, most likely contaminate. -Repeat BC (12/12) no growth -Urine cx shonna albicans Plan: - cefepime, diflucan and flagyl d/c as per ID on 12/18 - ID consulted - resolved sepsis, no need for fluids (2) Acute kidney injury superimposed on chronic kidney disease Current Visit: Yes Status: Acute Assessment and Plan: - Creatinine improved to 3.61 ---> 2.50 after HD x2 sessions. On Tuesday increased to 3.41, no HD yesterday - today GFR = 11, baseline 20. -Creatinine today = 4.08, increased fro 3.41 -Baseline creatinine <3. Retroperitoneal US was unremarkable. -Nephrology following, HD today -temporary dialysis cath in place by IR Plan: - nephrology consulted, will have HD today - currently no fluids running - avoid nephrotoxins -nephro started Darbeopoetin -pt will need perm cath for HD as per nephro. Spoke with IR and they said she needs to be off ASA/Plavix for 5 days. Both rx have been held (3) Hypertension Current Visit: No Status: Chronic Assessment and Plan: BP 101/51 today -adequate control -Continue home med: amlodipine 10mg (4) Type 2 diabetes mellitus Current Visit: No Status: Chronic Assessment and Plan: Glucoses well controlled on Levemir 10 units BID -glucose this AM 162 Plan: - continue ISS to high dose - 10 units of Levemir BID (5) Chronic systolic heart failure Current Visit: No Status: Chronic Assessment and Plan: Last ECHO was in 2017, LVEF at that time was 30%,Not in acute exacerbation Plan: -diuretics held 2/2 TENISHA; nephro gave a 1x dose of IV lasix (12/14/17) -strict I&O's -cardiac/diabetic diet (6) Pneumonia Current Visit: Yes Status: Suspected Assessment and Plan: CXR/CT was concerning for infiltrates on B/L basal regions, possible aspiration pneumonia. -speech assessment not concerning for aspiration Plan: -completed abx as per ID on 12/18 - d/c cefepime and flagyl - diet: thin liquids and advanced soft texture (7) UTI (urinary tract infection) Current Visit: Yes Status: Resolved Assessment and Plan: Recurrent UTIs, -Urine culture grew shonna. - Urology consulted and stated most likely chronically colonized. - Stents are placed, and can be changed every 3 months, plunkett catheter should bet changed every 3-4 weeks. - Due to patient going home with plunkett will stop oxybutynin Plan: - abx and antifungals d/c as per ID yesterday - stop oxybutynin (8) NSTEMI (non-ST elevated myocardial infarction) Current Visit: Yes Status: Acute Assessment and Plan: Elevated troponin: max 2.67, last troponin 0.86. -denies active chest pain -has h/o CAD, s/p CABG -TTE shows LVEF 30%. Global and segmental LV systolic dysfunction. Mildly dilated left ventricle. Atypical septal motion consistent with post-operative status. Mild-moderate mitral regurgitation. Mild tricuspid regurgitation. Plan: -Cardiology consulted, signed off and recommended continued medical management - on ASA, BB, statin. Restarted plavix (12/13/17). - d/c heparin drip 12/12/17. (9) Catatonia Current Visit: Yes Status: Resolved Assessment and Plan: Unsure of cause. Began following present illness, thought to be due to psychiatric illness. Worsened on Lorazepam but improved with memantine and NMDA antagonist. Plan: - memantine 5mg BID - psych consulted, after 1-2 days, can increase memantine 5mg AM and 10mg PM, after 3 days increase to 10mg BID - lorazepam d/c (10) Shonna infection Current Visit: Yes Status: Acute Assessment and Plan: urine culture: Candidda albicans (12/10). Pt was recently admitted for hematuria/ sepsis 2/2 UTI and was tx with Vanc and Cefepime, as per ID has had shonna in the past in urine. Also shonna in mouth and under skin folds. Plan: - ID consulted, Continue diflucan through 12/18. Nystatin swish and spit and topical - urology consulted for recurrent UTIs, plan as above (11) Chronic anemia Current Visit: No Status: Chronic Assessment and Plan: Stable. Most likely 2/2 to nutritional deficiency. Iron 36, Iron % sat 20, transferrin 130 Plan: continue home ferrous sulfate (12) Atrial flutter with rapid ventricular response Current Visit: Yes Status: Resolved Assessment and Plan: Currently rate controlled. Atrial flutter with RVR seen on biventriculr ICD. -New diagnosis, since 12/09/17. -Currently resolved, HR wnl. Plan: - continue increased home med toprol XL to 50 mg (home dose). - avoiding cardizem in the setting of known CMP EF 30%. - cardiology talked to family and have concluded anticoagulation risks out weight benefits - continue ASA and Plavix (13) Obesity Current Visit: No Status: Chronic Assessment and Plan: BMI 40.4 -lifestyle modification DVT Prophylaxis: SQ Heparin - Time Spent with Patient Total time spent is greater than 50% in coordination of care (as documented) at patient's floor/unit and/or counseling patient: less than 15 minutes Plan of Care Discussed with: patient Internal Medicine: Result - Labs CBC & Chem 7: 12/19/17 03:05 12/19/17 03:05 Labs: Short CBC 12/19/17 Range/Units 03:05 WBC 9.1 (4.3-11.1) K/mcL Hgb 7.5 L (11.5-15.4) g/dL Hct 25.5 L (35.3-44.9) % Plt Count 269 (140-400) K/mcL BMP 12/19/17 03:05 Sodium 139 Potassium 4.0 Chloride 104 Carbon Dioxide 26 BUN 40 H Creatinine 4.08 H Glucose 162 H Calcium 8.7 - ABG Interpretation ABG results: PT/INR, D-dimer PT 15.6 Seconds (9.4-12.1) H 12/10/17 02:55 - VTE Documentation of Mechanical Device: Intermittent pneumatic compression device Consult Discharge Plan - Plan Instructions: BiPAP, Woven Paper Hat Mender (GEN) Referrals: Wale Lam DO [Primary Care Provider] - (PATIENT IS GOING TO [facility] NO PCP APPOINTMENT NEEDED) <Isabel Rocha - Last Filed: 12/19/17 17:17> Hospitalist Progress Note - Encounter Date of Encounter: 12/19/17 - Exam Vitals: Temp Pulse Resp BP Pulse Ox 97.7 F 83 18 109/60 96 12/19/17 16:18 12/19/17 16:18 12/19/17 16:18 12/19/17 16:18 12/19/17 16:18 - Assessment and Plan (1) Acute kidney injury superimposed on chronic kidney disease Current Visit: Yes Status: Acute (2) Hypertension Current Visit: No Status: Chronic (3) Type 2 diabetes mellitus Current Visit: No Status: Chronic (4) Chronic systolic heart failure Current Visit: No Status: Chronic (5) Pneumonia Current Visit: Yes Status: Suspected (6) Sepsis Current Visit: Yes Status: Resolved (7) UTI (urinary tract infection) Current Visit: Yes Status: Resolved (8) NSTEMI (non-ST elevated myocardial infarction) Current Visit: Yes Status: Acute (9) Catatonia Current Visit: Yes Status: Resolved (10) Shonna infection Current Visit: Yes Status: Acute (11) Chronic anemia Current Visit: No Status: Chronic (12) Atrial flutter with rapid ventricular response Current Visit: Yes Status: Resolved (13) Obesity Current Visit: No Status: Chronic - Time Spent with Patient Total time spent is greater than 50% in coordination of care (as documented) at patient's floor/unit and/or counseling patient: Internal Medicine: Result - Labs CBC & Chem 7: 12/19/17 03:05 12/19/17 03:05 Labs: Short CBC 12/19/17 Range/Units 03:05 WBC 9.1 (4.3-11.1) K/mcL Hgb 7.5 L (11.5-15.4) g/dL Hct 25.5 L (35.3-44.9) % Plt Count 269 (140-400) K/mcL BMP 12/19/17 03:05 Sodium 139 Potassium 4.0 Chloride 104 Carbon Dioxide 26 BUN 40 H Creatinine 4.08 H Glucose 162 H Calcium 8.7 - ABG Interpretation ABG results: PT/INR, D-dimer PT 15.6 Seconds (9.4-12.1) H 12/10/17 02:55 - Attending Attestation I examined this patient and my medical decision-making was reviewed with the Resident Physician. I agree with the documented findings, disposition and treatment plan as described except to the extent set forth below. <Anatoliy Ramirez - Last Filed: 12/19/17 11:08> (1) Sepsis Qualifiers: Sepsis type: sepsis due to unspecified organism Qualified Code(s): A41.9 - Sepsis, unspecified organism (3) Hypertension Qualifiers: Hypertension type: essential hypertension Qualified Code(s): I10 - Essential (primary) hypertension (4) Type 2 diabetes mellitus Qualifiers: Diabetes mellitus terminal system operator insulin use: with skilled nursing use Diabetes mellitus complication status: with kidney complications Diabetes mellitus complication detail: with chronic kidney disease Chronic kidney disease stage: stage 4 (severe) Qualified Code(s): E11.22 - Type 2 diabetes mellitus with diabetic chronic kidney disease; N18.4 - Chronic kidney disease, stage 4 (severe ); Z79.4 - remote computer terminal operator (current) use of insulin (6) Pneumonia Qualifiers: Pneumonia type: due to unspecified organism Laterality: right Lung location : lower lobe of lung Qualified Code(s): J18.1 - Lobar pneumonia, unspecified organism (7) UTI (urinary tract infection) Qualifiers: Urinary tract infection type: site unspecified Hematuria presence: without hematuria Qualified Code(s): N39.0 - Urinary tract infection, site not specified (13) Obesity Qualifiers: Obesity type: due to excess calories Obesity classification: adult class 3 ( BMI >= 40) Serious obesity comorbidity presence: with serious comorbidity Body mass index: BMI 40.0-44.9 Qualified Code(s): E66.01 - Morbid (severe) obesity due to excess calories; Z68.41 - Body mass index (BMI) 40.0-44.9, adult <Isabel Rocha - Last Filed: 12/19/17 17:17> (2) Hypertension Qualifiers: Hypertension type: essential hypertension Qualified Code(s): I10 - Essential (primary) hypertension (3) Type 2 diabetes mellitus Qualifiers: Diabetes mellitus terminal system operator insulin use: with terminal system operator use Diabetes mellitus complication status: with kidney complications Diabetes mellitus complication detail: with chronic kidney disease Chronic kidney disease stage: stage 4 (severe) Qualified Code(s): E11.22 - Type 2 diabetes mellitus with diabetic chronic kidney disease; N18.4 - Chronic kidney disease, stage 4 (severe ); Z79.4 - halfway (current) use of insulin (5) Pneumonia Qualifiers: Pneumonia type: due to unspecified organism Laterality: right Lung location : lower lobe of lung Qualified Code(s): J18.1 - Lobar pneumonia, unspecified organism (6) Sepsis Qualifiers: Sepsis type: sepsis due to unspecified organism Qualified Code(s): A41.9 - Sepsis, unspecified organism (7) UTI (urinary tract infection) Qualifiers: Urinary tract infection type: site unspecified Hematuria presence: without hematuria Qualified Code(s): N39.0 - Urinary tract infection, site not specified (13) Obesity Qualifiers: Obesity type: due to excess calories Obesity classification: adult class 3 ( BMI >= 40) Serious obesity comorbidity presence: with serious comorbidity Body mass index: BMI 40.0-44.9 Qualified Code(s): E66.01 - Morbid (severe) obesity due to excess calories; Z68.41 - Body mass index (BMI) 40.0-44.9, adult
--- NOTE | 2017-12-19 10:30 | Nephrology Progress Note ---
Date of Encounter: 12/19/17 Time of Encounter: 10:15 - Assessment and Plan (1) Acute kidney injury superimposed on chronic kidney disease Current Visit: Yes Status: Acute Acute kidney injury on CKD stage IV, baseline GFR in the 20 There seems to have been no change in renal function over the weekend, serum creatinine remains 4.08. Urine output 150/24 hours Patient did undergo placement of temporary catheter and had hemodialysis on and Tuesday of last week, no HD over the weekend Patient's respiratory status also appears unchanged, still is dyspneic/ tachypneic and requires 2 L of oxygen Plan -Continue hemodialysis today -Consult to social research assistant to plan for discharge. Patient will require chair time upon d/c -Hold aspirin and Plavix to plan for insertion of PermCath prior to discharge. IR requires 5 days without medication prior to insertion (2) UTI (urinary tract infection) Current Visit: Yes Status: Resolved Urine demonstrates Yolanda species on culture Urology has been consulted, suspect chronic colonization Management per primary team Qualifiers: Urinary tract infection type: site unspecified Hematuria presence: without hematuria Qualified Code(s): N39.0 - Urinary tract infection, site not specified (3) Dyspnea and respiratory abnormality Current Visit: Yes Status: Acute Significantly improved from prior day, although still does require oxygen Does not appear to have significant crackles or rales on examination Patient is having hemodialysis today, currently cumulative fluid balance is - 2394 (4) Anemia Current Visit: No Status: Acute Significant anemia, hemoglobin 7.5 We will start the patient on Aranesp today, 60mcg sq per week This medication will be stopped at time of discharge Qualifiers: Anemia type: unspecified type Qualified Code(s): D64.9 - Anemia, unspecified Subjective Principal diagnosis: NSTEMI Interval history: The patient seen and examined at hemodialysis today. She says that she is feeling no better than she was on Tuesday when I last saw her, however she is talking significantly more today. She has no specific acute complaints. Objective - Vital Signs Vital signs: Vital Signs Temp Pulse Resp BP Pulse Ox 12/19/17 10:15 121/56 12/19/17 10:00 97.7 F 22 116/60 12/19/17 07:06 98.3 F 68 18 101/51 98 12/19/17 03:54 69 12/19/17 03:42 98.3 F 67 18 108/77 96 12/18/17 23:15 72 12/18/17 23:07 97.7 F 62 18 117/77 97 12/18/17 19:49 63 12/18/17 18:30 98.2 F 66 18 97/61 97 12/18/17 16:07 98.6 F 61 18 106/54 97 12/18/17 11:48 98.5 F 61 18 131/70 100 Intake and Output 12/18/17 12/19/17 12/19/17 23:59 07:59 15:59 Intake Total 840 / 840 Output Total 250 / 250 150 / 150 Balance -250 / -250 -150 / -150 840 / 840 Intake: Oral 240 / 240 Intake, Rinseback and Flushes 600 / 600 Output: Catheter 250 / 250 150 / 150 Urethral (Elizondo) 150 / 150 Other: Meal Breakfast Percent of Meal Consumed 90% Weight 103.5 kg 103.5 kg Blood Glucose* 222 163 Hemodialysis Net Fluid Removed 218 (mL) Patient Weight 12/19/17 23:59 Weight 103.5 kg - General Appearance Exam: General appearance: Present: chronically ill, fatigue EENT: Present: ATNC, mucous membranes dry Neck: Present: no JVD, supple Respiratory: Present: clear (ant bilat), no wheezes noted Cardiology: Present: edema (trace LE edema bilat), normal S1, normal S2 Gastrointestinal: Present: no tenderness, no guarding Integumentary: Present: warm and dry. Decubitus ulcers on b/l heels Neurologic: Present: no focal deficit, patient does not speak Musculoskeletal: Present: no deformities Psychiatric: Present: depressed - Lab 12/19/17 03:05 12/19/17 03:05 Most recent lab results Calcium 8.7 mg/dL (8.6-10.3) 12/19/17 03:05 Phosphorus 2.1 mg/dL (2.7-4.5) L 12/10/17 00:46 Magnesium 1.9 mg/dL (1.6-2.6) 12/11/17 05:40 Urine Creatinine 79 mg/dL 12/10/17 15:45 Urine Sodium 72.1 mEq/L 12/10/17 15:45 - VTE Documentation of Mechanical Device: Intermittent pneumatic compression device Consult Discharge Plan - Plan Instructions: BiPAP, Ship Painter Helper (GEN) Referrals: Wale Lam DO [Primary Care Provider] - (PATIENT IS GOING TO [facility] NO PCP APPOINTMENT NEEDED)
[2017-12-19] MEDS ORDERED: 0.9 % Sodium Chloride 2,000 ML ONE (10:46)
[2017-12-20] MEDS: Acetaminophen 325 MG TABLET PO PRN (03:30)
[2017-12-20 03:53] LABS: Basophils % 0.4 %; Eosinophils # 0.4 K/mcL (0.0-0.6); Eosinophils % 3.9 %; Hematocrit 24.7 % (35.3-44.9); Hemoglobin 7.4 g/dL (11.5-15.4); Immature Granulocytes % 1.9 % (0-4); Lymphocytes # 1.4 K/mcL (0.6-4.6); Lymphocytes % 14.3 %; Mean Corpuscular Hemoglobin 27.6 pg (28.0-33.3); Mean Corpuscular Volume 92.2 fL (83.0-100.0); Mean Platelet Volume 10.1 fL (9.4-12.4); Monocytes # 0.9 K/mcL (0.0-1.3); Monocytes % 9.2 %; Neutrophils # 6.7 K/mcL (1.6-8.9); Nucleated Red Blood Cells 0.2 /100 WBC (0); Platelet Count 225 K/mcL (140-400); Red Blood Count 2.68 M/mcL (3.82-4.97); Red Cell Distribution Width 18.2 % (11.5-14.5); Segmented Neutrophils % 70.3 %
[2017-12-20 04:15] LABS: Albumin 2.7 g/dL (3.5-5.7); Albumin/Globulin Ratio 0.7 (1.1-2.2); Bilirubin,Total 0.5 mg/dL (0.3-1.0); Calcium 8.5 mg/dL (8.6-10.3); Globulin 3.8 g/dL (2.4-3.5); Potassium 4.1 mEq/L (3.5-5.1); Total Protein 6.5 g/dL (6.4-8.9)
[2017-12-20] MEDS: *HR* Heparin 5,000 UNIT/ML VIAL SQ SCH ×2 (05:30→16:57)
[2017-12-20] MEDS: Insulin LISPRO 300 UNITS/3 ML VIAL SQ SCH ×4 (08:04→21:47)
[2017-12-20] MEDS: Metoprolol XL (24 HR) Succ 25 MG TAB.ER.24H PO SCH (08:05)
--- NOTE | 2017-12-20 08:08 | Internal Med Progress Note ---
<Anatoliy Ramirez S - Last Filed: 12/20/17 11:23> Hospitalist Progress Note - Encounter Date of Encounter: 12/20/17 Time of Encounter: 08:06 - Subjective Interval History: Pt is seen at the bedside. She was admitted on Tuesday (12/09/17) for AMS from her [facility]. She was discharged the day before after being tx for sepsis 2/2 UTI and had to be intubated for acute respiratory failure. Pt later developed DVT and was put on anicoag, which was d/c'd secondary to hematuria. She was sent back and found to have an NSTEMI with troponin peak at 2.16 , UTI and TENISHA with CKD 3 The patient mentation is slightly better today. She is oriented to self, time and place today - She denies pain, CP, SOB , N/V/D Urine is yellow , no blood Nurses report no overnight events. Pt denies active chest pain, SOB, N/V/D. Spoke with SW, pt doesn't want to go back to [facility]. Looking for an alternative if possible. - Exam Vitals: Temp Pulse Resp BP Pulse Ox 98.5 F 99 17 90/47 93 12/20/17 07:08 12/20/17 07:08 12/20/17 07:08 12/20/17 07:08 12/20/17 07:08 Exam: Constitutional: Alert, in no acute distress , disheveled HEENT: central line right side of neck, Normocephalic, atraumatic Heart: Normal, regular rate and rhythm, no murmurs Lungs: Clear to auscultation, no wheezes, rales, or rhonchi Abdomen: Soft, nondistended, nontender, obese Extremities: multiple toe amputations bilaterally, + 2 pitting edema with redness present on anterior aspect of shins, No clubbing, Skin: Skin warm and dry, no lesions, no rashes, no jaundice Neurologic: Cooperative with exam,, increased talking - Assessment and Plan (1) Sepsis Current Visit: Yes Status: Resolved Assessment and Plan: Infectious cause: pneumonia and UTI. Currently doesn't meet sepsis criteria WBC 9.5, HR 81, RR 18 -Blood culture 1/2 grew s. epidermidis, most likely contaminate. -Repeat BC (12/12) no growth -Urine cx shonna albicans Plan: - cefepime, diflucan and flagyl d/c as per ID on 12/18 - ID consulted, signed off 12/19 - resolved sepsis, no need for fluids (2) Acute kidney injury superimposed on chronic kidney disease Current Visit: Yes Status: Acute Assessment and Plan: - Creatinine improved to 3.61 ---> 2.50 after HD x2 sessions. On Tuesday increased to 3.41, no HD yesterday - today GFR = 11, baseline 20. -Creatinine 12/19 = 4.08, increased from 3.41 -Creatinine this morning is 3.03, had HD yesterday -Baseline creatinine <3. Retroperitoneal US was unremarkable. -Nephrology following -temporary dialysis cath in place by IR Plan: - nephrology consulted, the pt had HD yesterday - currently no fluids running - avoid nephrotoxins - nephro started Darbeopoetin - pt will need perm cath for HD as per nephro. Spoke with IR and they said she needs to be off ASA/Plavix for 5 days. Both rx have been held. She is day 1 no asa/plavix - spoke with SW about d/c today, the pt doesn't want to go back to [facility]. SW to speak with pt about options. Currently has a bed held at [facility] pending discharge. -d/c plunkett cath for voiding trial today (3) Hypertension Current Visit: No Status: Chronic Assessment and Plan: BP 90/51 today -adequate control -Continue home med: amlodipine 10mg (4) Type 2 diabetes mellitus Current Visit: No Status: Chronic Assessment and Plan: Glucoses well controlled on Levemir 10 units BID -glucose this AM 143 Plan: - continue ISS to high dose - 10 units of Levemir BID (5) Chronic systolic heart failure Current Visit: No Status: Chronic Assessment and Plan: Last ECHO was in 2017, LVEF at that time was 30%,Not in acute exacerbation Plan: -diuretics held 2/2 TENISHA; nephro gave a 1x dose of IV lasix (12/14/17) -strict I&O's -cardiac/diabetic diet (6) Pneumonia Current Visit: Yes Status: Ruled-out Assessment and Plan: CXR/CT was concerning for infiltrates on B/L basal regions, possible aspiration pneumonia. -speech assessment not concerning for aspiration Plan: -completed abx as per ID on 12/18 - d/c cefepime and flagyl - diet: thin liquids and advanced soft texture (7) UTI (urinary tract infection) Current Visit: Yes Status: Resolved Assessment and Plan: Recurrent UTIs, -Urine culture grew shonna. - Urology consulted and stated most likely chronically colonized. - Stents are placed, and can be changed every 3 months, plunkett catheter should bet changed every 3-4 weeks. - Due to patient going home with plunkett will stop oxybutynin Plan: - abx and antifungals d/c as per ID yesterday - stop oxybutynin (8) NSTEMI (non-ST elevated myocardial infarction) Current Visit: Yes Status: Acute Assessment and Plan: Elevated troponin: max 2.67, last troponin 0.86. -most likely a type 2 ND 2/2 demand ischemia -denies active chest pain -has h/o CAD, s/p CABG -TTE shows LVEF 30%. Global and segmental LV systolic dysfunction. Mildly dilated left ventricle. Atypical septal motion consistent with post-operative status. Mild-moderate mitral regurgitation. Mild tricuspid regurgitation. Plan: -Cardiology consulted, signed off and recommended continued medical management - on ASA, BB, statin. Restarted plavix (12/13/17). -currently ASA/plavix held so IR can place permacath - d/c heparin drip 12/12/17. (9) Catatonia Current Visit: Yes Status: Resolved Assessment and Plan: Unsure of cause. Began following present illness, thought to be due to psychiatric illness. Worsened on Lorazepam but improved with memantine and NMDA antagonist. Plan: - memantine 5mg BID ---> increased to 5mg in AM PO and 10 mg at night PO daily - psych consulted, after 1-2 days, can increase memantine 5mg AM and 10mg PM, after 3 days increase to 10mg BID - lorazepam d/c (10) Shonna infection Current Visit: Yes Status: Acute Assessment and Plan: urine culture: Candidda albicans (12/10). Pt was recently admitted for hematuria/ sepsis 2/2 UTI and was tx with Vanc and Cefepime, as per ID has had shonna in the past in urine. Also shonna in mouth and under skin folds. Plan: - ID consulted, Continue diflucan through 12/18. Nystatin swish and spit and topical - urology consulted for recurrent UTIs, plan as above (11) Chronic anemia Current Visit: No Status: Chronic Assessment and Plan: Stable. Most likely 2/2 to nutritional deficiency. Iron 36, Iron % sat 20, transferrin 130 Plan: continue home ferrous sulfate (12) Atrial flutter with rapid ventricular response Current Visit: Yes Status: Resolved Assessment and Plan: Currently rate controlled. Atrial flutter with RVR seen on biventriculr ICD. -New diagnosis, since 12/09/17. -Currently resolved, HR wnl. Plan: - continue increased home med toprol XL to 50 mg (home dose). - avoiding cardizem in the setting of known CMP EF 30%. - cardiology talked to family and have concluded anticoagulation risks out weight benefits - discontinue ASA and Plavix so pt can have permacath placement tuesday (13) Obesity Current Visit: No Status: Chronic Assessment and Plan: BMI 40.4 -lifestyle modification DVT Prophylaxis: SQ Heparin - Time Spent with Patient Total time spent is greater than 50% in coordination of care (as documented) at patient's floor/unit and/or counseling patient: less than 15 minutes Plan of Care Discussed with: patient Internal Medicine: Result - Labs CBC & Chem 7: 12/20/17 03:38 12/20/17 03:38 Labs: Short CBC 12/20/17 Range/Units 03:38 WBC 9.5 (4.3-11.1) K/mcL Hgb 7.4 L (11.5-15.4) g/dL Hct 24.7 L (35.3-44.9) % Plt Count 225 (140-400) K/mcL Neutrophils # 6.7 (1.6-8.9) K/mcL BMP 12/20/17 03:38 Sodium 139 Potassium 4.1 Chloride 102 Carbon Dioxide 30 H BUN 20 Creatinine 3.03 H Glucose 143 H Calcium 8.5 L Liver Function 12/20/17 Range/Units 03:38 Total Bilirubin 0.5 (0.3-1.0) mg/dL AST 13 (13-39) Units/L ALT 9 (7-52) Units/L Alkaline Phosphatase 96 (34-104) Units/L Albumin 2.7 L (3.5-5.7) g/dL - ABG Interpretation ABG results: PT/INR, D-dimer PT 15.6 Seconds (9.4-12.1) H 12/10/17 02:55 - VTE Documentation of Mechanical Device: Intermittent pneumatic compression device Consult Discharge Plan - Plan Instructions: BiPAP, Certified Technician Specialist (GEN) Referrals: Wale Lam DO [Primary Care Provider] - (PATIENT IS GOING TO [facility] NO PCP APPOINTMENT NEEDED) <OniWilfred - Last Filed: 12/20/17 17:38> Hospitalist Progress Note - Encounter Date of Encounter: 12/20/17 - Exam Vitals: Temp Pulse Resp BP Pulse Ox 98.7 F 95 18 105/65 97 12/20/17 16:43 12/20/17 16:43 12/20/17 16:43 12/20/17 16:43 12/20/17 16:43 - Assessment and Plan (1) Acute kidney injury superimposed on chronic kidney disease Current Visit: Yes Status: Acute (2) Hypertension Current Visit: No Status: Chronic (3) Type 2 diabetes mellitus Current Visit: No Status: Chronic (4) Chronic systolic heart failure Current Visit: No Status: Chronic (5) Pneumonia Current Visit: Yes Status: Ruled-out (6) Sepsis Current Visit: Yes Status: Resolved (7) UTI (urinary tract infection) Current Visit: Yes Status: Resolved (8) NSTEMI (non-ST elevated myocardial infarction) Current Visit: Yes Status: Acute (9) Catatonia Current Visit: Yes Status: Resolved (10) Shonna infection Current Visit: Yes Status: Acute (11) Chronic anemia Current Visit: No Status: Chronic (12) Atrial flutter with rapid ventricular response Current Visit: Yes Status: Resolved (13) Obesity Current Visit: No Status: Chronic - Time Spent with Patient Total time spent is greater than 50% in coordination of care (as documented) at patient's floor/unit and/or counseling patient: Internal Medicine: Result - Labs CBC & Chem 7: 12/20/17 03:38 12/20/17 03:38 Labs: Short CBC 12/20/17 Range/Units 03:38 WBC 9.5 (4.3-11.1) K/mcL Hgb 7.4 L (11.5-15.4) g/dL Hct 24.7 L (35.3-44.9) % Plt Count 225 (140-400) K/mcL Neutrophils # 6.7 (1.6-8.9) K/mcL BMP 12/20/17 03:38 Sodium 139 Potassium 4.1 Chloride 102 Carbon Dioxide 30 H BUN 20 Creatinine 3.03 H Glucose 143 H Calcium 8.5 L Liver Function 12/20/17 Range/Units 03:38 Total Bilirubin 0.5 (0.3-1.0) mg/dL AST 13 (13-39) Units/L ALT 9 (7-52) Units/L Alkaline Phosphatase 96 (34-104) Units/L Albumin 2.7 L (3.5-5.7) g/dL - ABG Interpretation ABG results: PT/INR, D-dimer PT 15.6 Seconds (9.4-12.1) H 12/10/17 02:55 - Attending Attestation I examined this patient and my medical decision-making was reviewed with the Resident Physician Dr. Ramirez. I agree with the documented findings, disposition and treatment plan as described except to the extent set forth below. Ms. Bentley is a 72 year old female with PMH of T2DM, HTN, HDL, catatonia, chronic systolic heart failure, CKD-3, recurrent UTI, and chronic psychiatry problems who had an extensive hospital stay here during her last hospitalization. Pt was admitted with sepsis, due to URI later she developed shock, acute respiratroy failure, got intubated and she also happened to have DVT for which she was started on Anti coag. pt developed hematuria so anti coag got d/cd and placed IVC filter. Pt mentation was never improved, she was always non verbal and severe cataonic apperance. pt was evaluated by psych who recommend ECT treatment. pt was d/c to [facility] on 12/08/17. Now she was sent back to ER on with worsening AMS. She happened to have NSTEMI with Trop @ 2.16, UTI and TENISHA on CKD-3 with cr @ 3.48. She was admitted in the hospital and started her empirical abx Cefepime. She is resting comfortably. Today she is more alert, awake and following all the commands.. Communicating verbally. Looks depressed, denied any suicidal ideation. Gen: A, A, O to self Chest: Diminished BS b/l , No wheezing Heart: S1S2+ Tachy, No murmurs 1. Sepsis with UTI h/o Shonna in the past Finished empirical abx Cefepime + Diflucan 2. Acute PNA - aspiration Finished Cefepime + Flagyl 3. NSTEMI finished 48hrs anti coag cont ASA on Metoprolol 4. ESRD on HD Waiting for Perm cath placement after Plavix wash out Nephro on board <Anatoliy Ramirez S - Last Filed: 12/20/17 11:23> (1) Sepsis Qualifiers: Sepsis type: sepsis due to unspecified organism Qualified Code(s): A41.9 - Sepsis, unspecified organism (3) Hypertension Qualifiers: Hypertension type: essential hypertension Qualified Code(s): I10 - Essential (primary) hypertension (4) Type 2 diabetes mellitus Qualifiers: Diabetes mellitus detention insulin use: with detention use Diabetes mellitus complication status: with kidney complications Diabetes mellitus complication detail: with chronic kidney disease Chronic kidney disease stage: stage 4 (severe) Qualified Code(s): E11.22 - Type 2 diabetes mellitus with diabetic chronic kidney disease; N18.4 - Chronic kidney disease, stage 4 (severe ); Z79.4 - group home (current) use of insulin (6) Pneumonia Qualifiers: Pneumonia type: due to unspecified organism Laterality: right Lung location : lower lobe of lung Qualified Code(s): J18.1 - Lobar pneumonia, unspecified organism (7) UTI (urinary tract infection) Qualifiers: Urinary tract infection type: site unspecified Hematuria presence: without hematuria Qualified Code(s): N39.0 - Urinary tract infection, site not specified (13) Obesity Qualifiers: Obesity type: due to excess calories Obesity classification: adult class 3 ( BMI >= 40) Serious obesity comorbidity presence: with serious comorbidity Body mass index: BMI 40.0-44.9 Qualified Code(s): E66.01 - Morbid (severe) obesity due to excess calories; Z68.41 - Body mass index (BMI) 40.0-44.9, adult <Wilfred Bunn - Last Filed: 12/20/17 17:38> (2) Hypertension Qualifiers: Hypertension type: essential hypertension Qualified Code(s): I10 - Essential (primary) hypertension (3) Type 2 diabetes mellitus Qualifiers: Diabetes mellitus termite technician insulin use: with termite technician use Diabetes mellitus complication status: with kidney complications Diabetes mellitus complication detail: with chronic kidney disease Chronic kidney disease stage: stage 4 (severe) Qualified Code(s): E11.22 - Type 2 diabetes mellitus with diabetic chronic kidney disease; N18.4 - Chronic kidney disease, stage 4 (severe ); Z79.4 - terminal worker (current) use of insulin (5) Pneumonia Qualifiers: Pneumonia type: due to unspecified organism Laterality: right Lung location : lower lobe of lung Qualified Code(s): J18.1 - Lobar pneumonia, unspecified organism (6) Sepsis Qualifiers: Sepsis type: sepsis due to unspecified organism Qualified Code(s): A41.9 - Sepsis, unspecified organism (7) UTI (urinary tract infection) Qualifiers: Urinary tract infection type: site unspecified Hematuria presence: without hematuria Qualified Code(s): N39.0 - Urinary tract infection, site not specified (13) Obesity Qualifiers: Obesity type: due to excess calories Obesity classification: adult class 3 ( BMI >= 40) Serious obesity comorbidity presence: with serious comorbidity Body mass index: BMI 40.0-44.9 Qualified Code(s): E66.01 - Morbid (severe) obesity due to excess calories; Z68.41 - Body mass index (BMI) 40.0-44.9, adult
[2017-12-20] MEDS: Ascorbic Acid 500 MG TABLET PO SCH ×2 (08:15→21:46)
[2017-12-20] MEDS: amLODIPine 5 MG TABLET PO SCH (08:16)
[2017-12-20] MEDS: Nystatin Cream 15 GM TUBE TP SCH (08:16)
[2017-12-20] MEDS: Nystatin SUSP 5 ML UD.LIQ PO SCH ×4 (08:16→21:46)
[2017-12-20] MEDS: Insulin DETEMIR 100 UNIT/ML X5UNITS SQ SCH ×2 (08:16→21:46)
[2017-12-20] MEDS: MICONAZOLE NITRATE 57 GM TUBE TP SCH (08:16)
[2017-12-20] MEDS: Nystatin POWDER 30 GM BOTTLE TP SCH (09:12)
--- NOTE | 2017-12-20 10:33 | Nephrology Progress Note ---
Date of Encounter: 12/20/17 Time of Encounter: 08:30 - Assessment and Plan (1) Acute kidney injury superimposed on chronic kidney disease Current Visit: Yes Status: Acute Acute kidney injury on CKD stage IV, baseline GFR in the 20 Patient remains hemodialysis dependent at this time, however biochemically stable today after hemodialysis yesterday Patient's respiratory status also appears unchanged, still is dyspneic/ tachypneic and requires 2 L of oxygen Aspirin and Plavix were held yesterday for an today of placement of permacath on Tuesday by IR The patient did have some issues with hypotension throughout the night and this morning, possibly secondary to hypovolemia She has not had this issue previously, and she does not appear on exam to be significantly hypovolemic Still, we will be cautious with the amount of fluid removal with US in the future Plan -Evaluate the patient for need for hemodialysis in the morning -Social work has been consulted and is planning for chair time at time of discharge -Hold aspirin and Plavix to plan for insertion of PermCath prior to discharge. IR requires 5 days without medication prior to insertion. Patient will need to be nothing by mouth at midnight on (2) Dyspnea and respiratory abnormality Current Visit: Yes Status: Acute Does not appear to have significant crackles or rales on examination. She also does not complain of any significant dyspnea at this time Current cumulative fluid balance at this time is -5009 mL There is some concern that the patient is becoming hypovolemic due to hypotension and tachycardia We will become cautious with the amount of fluid pulled off with ultrafiltration during hemodialysis (3) Anemia Current Visit: No Status: Acute Significant anemia, hemoglobin 7.4 We will start the patient on Aranesp today, 60mcg sq per week This medication will be stopped at time of discharge Qualifiers: Anemia type: unspecified type Qualified Code(s): D64.9 - Anemia, unspecified (4) UTI (urinary tract infection) Current Visit: Yes Status: Resolved Urine demonstrates Yolanda species on culture Urology has been consulted, suspect chronic colonization Management per primary team Qualifiers: Urinary tract infection type: site unspecified Hematuria presence: without hematuria Qualified Code(s): N39.0 - Urinary tract infection, site not specified Subjective Principal diagnosis: NSTEMI Interval history: The patient seen and examined at bedside. She is accompanied by her she was also bedside with her. She says that she feels about the same as she did yesterday, no acute complaints today. She apparently did not sleep last night because she was uncomfortable. She says that she is having pain in her bottom due to lack of movement overall. Her did say that he was able to move her legs around for her which did seem to help. Otherwise she has no acute complaints. Objective - Vital Signs Vital signs: Vital Signs Temp Pulse Resp BP Pulse Ox 12/20/17 07:08 98.5 F 99 17 90/47 93 12/20/17 04:18 98.6 F 81 18 90/51 100 12/19/17 23:51 98.2 F 84 17 114/68 97 12/19/17 19:44 98.2 F 85 20 100/64 99 12/19/17 16:18 97.7 F 83 18 109/60 96 12/19/17 13:49 111/73 12/19/17 13:15 97.5 F L 18 119/57 12/19/17 13:00 114/60 12/19/17 12:45 113/56 12/19/17 12:30 110/57 12/19/17 12:15 116/58 12/19/17 12:00 108/59 12/19/17 11:45 102/53 12/19/17 11:30 107/52 12/19/17 11:15 111/55 12/19/17 11:00 107/55 12/19/17 10:45 111/58 Intake and Output 12/19/17 12/20/17 12/20/17 23:59 07:59 15:59 Intake Total 300 / 300 Output Total 225 / 225 100 / 100 Balance 75 / 75 -100 / -100 Intake: Oral 300 / 300 Output: Catheter 225 / 225 100 / 100 Other: Stool Size Smear Stool Characteristics Normal for Patient Stool Color Brown Blood Glucose* 188 119 - General Appearance Exam: General appearance: Present: chronically ill, fatigue EENT: Present: ATNC, mucous membranes dry Neck: Present: no JVD, supple. Temporary dialysis catheter in right IJ with no surrounding erythema or exudates Respiratory: Present: clear (ant bilat), no wheezes noted Cardiology: Present: edema (trace LE edema bilat), normal S1, normal S2 Gastrointestinal: Present: no tenderness, no guarding Integumentary: Present: warm and dry. Decubitus ulcers on b/l heels Neurologic: Present: no focal deficit, patient does not speak Musculoskeletal: Present: no deformities Psychiatric: Present: depressed. Still does not talk much. - Lab 12/20/17 03:38 12/20/17 03:38 Most recent lab results Calcium 8.5 mg/dL (8.6-10.3) L 12/20/17 03:38 Phosphorus 2.1 mg/dL (2.7-4.5) L 12/10/17 00:46 Magnesium 1.9 mg/dL (1.6-2.6) 12/11/17 05:40 Urine Creatinine 79 mg/dL 12/10/17 15:45 Urine Sodium 72.1 mEq/L 12/10/17 15:45 - VTE Documentation of Mechanical Device: Intermittent pneumatic compression device Consult Discharge Plan - Plan Instructions: BiPAP, Client Application Support Specialist (GEN) Referrals: Wale Lam DO [Primary Care Provider] - (PATIENT IS GOING TO [facility] NO PCP APPOINTMENT NEEDED)
[2017-12-21] MEDS: MICONAZOLE NITRATE 57 GM TUBE TP SCH ×3 (00:36→21:29)
[2017-12-21] MEDS: Nystatin POWDER 30 GM BOTTLE TP SCH ×3 (00:36→21:25)
[2017-12-21] MEDS: *HR* Heparin 5,000 UNIT/ML VIAL SQ SCH ×2 (04:46→16:58)
[2017-12-21 05:05] LABS: Basophils % 0.3 %; Eosinophils # 0.4 K/mcL (0.0-0.6); Eosinophils % 3.1 %; Hematocrit 26.5 % (35.3-44.9); Hemoglobin 7.9 g/dL (11.5-15.4); Immature Granulocytes % 0.9 % (0-4); Lymphocytes # 1.3 K/mcL (0.6-4.6); Lymphocytes % 10.4 %; Mean Corpuscular HGB Conc 29.8 g/dL (31.6-35.5); Mean Corpuscular Hemoglobin 28.4 pg (28.0-33.3); Mean Corpuscular Volume 95.3 fL (83.0-100.0); Mean Platelet Volume 10.3 fL (9.4-12.4); Monocytes # 0.9 K/mcL (0.0-1.3); Monocytes % 7.7 %; Neutrophils # 9.4 K/mcL (1.6-8.9); Platelet Count 233 K/mcL (140-400); Red Blood Count 2.78 M/mcL (3.82-4.97); Red Cell Distribution Width 18.2 % (11.5-14.5); Segmented Neutrophils % 77.6 %
[2017-12-21 05:54] LABS: Albumin 2.7 g/dL (3.5-5.7); Albumin/Globulin Ratio 0.7 (1.1-2.2); Bilirubin,Total 0.5 mg/dL (0.3-1.0); Calcium 8.5 mg/dL (8.6-10.3); Globulin 3.8 g/dL (2.4-3.5); Potassium 4.1 mEq/L (3.5-5.1); Total Protein 6.5 g/dL (6.4-8.9)
[2017-12-21] MEDS ORDERED: 0.9 % Sodium Chloride 250 ML IVC PRN (07:40)
[2017-12-21] MEDS: Nystatin SUSP 5 ML UD.LIQ PO SCH ×4 (08:29→21:20)
[2017-12-21] MEDS: Ascorbic Acid 500 MG TABLET PO SCH ×2 (08:29→21:20)
[2017-12-21] MEDS: Insulin LISPRO 300 UNITS/3 ML VIAL SQ SCH ×4 (08:31→21:18)
[2017-12-21] MEDS: Insulin DETEMIR 100 UNIT/ML X5UNITS SQ SCH ×2 (08:33→21:18)
[2017-12-21] MEDS ORDERED: 0.9 % Sodium Chloride 1,000 ML ONE (08:47)
[2017-12-21] MEDS ORDERED: *HR* Heparin 10,000 UNIT/10 ML VIAL IV PRN (08:48)
[2017-12-21] MEDS ORDERED: 0.9 % Sodium Chloride 1,000 ML PRIME SCH (09:00)
--- NOTE | 2017-12-21 09:09 | Internal Med Progress Note ---
<Anatoliy Ramirez S - Last Filed: 12/21/17 10:56> Hospitalist Progress Note - Encounter Date of Encounter: 12/21/17 Time of Encounter: 09:04 - Subjective Interval History: Pt is seen at the bedside. She was admitted on Tuesday (12/09/17) for AMS from her long-term. She was discharged the day before after being tx for sepsis 2/2 UTI and had to be intubated for acute respiratory failure. Pt later developed DVT and was put on anicoag, which was d/c'd secondary to hematuria. She was sent back and found to have an NSTEMI with troponin peak at 2.16 , UTI and TENISHA with CKD 3 The patient mentation is slightly better today. She is oriented to self, time and place today - She denies pain, CP, SOB , N/V/D Urine is yellow , no blood Nurses report no overnight events. Pt denies active chest pain, SOB, N/V/D. - Exam Vitals: Temp Pulse Resp BP Pulse Ox 98.8 F 106 16 128/71 98 12/21/17 08:24 12/21/17 08:24 12/21/17 08:24 12/21/17 08:24 12/21/17 08:24 Exam: Constitutional: Alert, in no acute distress , disheveled HEENT: central line right side of neck, Normocephalic, atraumatic Heart: Normal, regular rate and rhythm, no murmurs Lungs: Clear to auscultation, no wheezes, rales, or rhonchi Abdomen: Soft, nondistended, nontender, obese Extremities: multiple toe amputations bilaterally, + 2 pitting edema with redness present on anterior aspect of shins, No clubbing, Skin: Skin warm and dry, no lesions, no rashes, no jaundice Neurologic: Cooperative with exam,, increased talking - Assessment and Plan (1) Sepsis Current Visit: Yes Status: Resolved Assessment and Plan: Infectious cause: pneumonia and UTI. Currently doesn't meet sepsis criteria HR 83, RR 18 New WBC count 12/20 - 12.2 -Blood culture /2 grew s. epidermidis, most likely contaminate. -Repeat BC (12/12) no growth -Urine cx shonna albicans Plan: - cefepime, diflucan and flagyl d/c as per ID on 12/18 - ID consulted, signed off 12/19 - resolved sepsis, no need for fluids - repeat UA -check post void residual q shift - cbc in the AM (2) Acute kidney injury superimposed on chronic kidney disease Current Visit: Yes Status: Acute Assessment and Plan: - Creatinine improved to 3.61 ---> 2.50 after HD x2 sessions. On Tuesday increased to 3.41, no HD yesterday - today GFR = 11, baseline 20. -Creatinine 12/19 = 4.08, increased from 3.41 -Creatinine (12/20) is 3.03 ---> 12/21 creatinine increased to 4.37 - last HD session Tuesday, nephrology plans to do HD today -Baseline creatinine <3. Retroperitoneal US was unremarkable. -Nephrology following -temporary dialysis cath in place by IR Plan: - nephrology consulted, the pt had HD yesterday - currently no fluids running - avoid nephrotoxins - nephro started Darbeopoetin - pt will need perm cath for HD as per nephro. Spoke with IR and they said she needs to be off ASA/Plavix for 5 days. Both rx have been held. She is day 2 no asa/plavix - spoke with SW about d/c today, the pt doesn't want to go back to [facility]. SW to speak with pt about options. Currently has a bed held at [facility] pending discharge. - plunkett catheter d/c yesterday; check post void residual q shift - dispo: permacath placement as per IR once pt has been off ASA/plavix for 5 days total (3) Hypertension Current Visit: No Status: Chronic Assessment and Plan: BP 139/75 today -adequate control -Continue home med: amlodipine 10mg (4) Type 2 diabetes mellitus Current Visit: No Status: Chronic Assessment and Plan: Glucoses well controlled on Levemir 10 units BID -glucose this AM 100 Plan: - continue ISS to high dose - 10 units of Levemir BID (5) Chronic systolic heart failure Current Visit: No Status: Chronic Assessment and Plan: Last ECHO was in 2016, LVEF at that time was 30%,Not in acute exacerbation Plan: -diuretics held 2/2 TENISHA; nephro gave a 1x dose of IV lasix (12/14/17) -strict I&O's -cardiac/diabetic diet (6) Pneumonia Current Visit: Yes Status: Ruled-out Assessment and Plan: CXR/CT was concerning for infiltrates on B/L basal regions, possible aspiration pneumonia. -speech assessment not concerning for aspiration Plan: -completed abx as per ID on 12/18 - d/c cefepime and flagyl - diet: thin liquids and advanced soft texture (7) UTI (urinary tract infection) Current Visit: Yes Status: Resolved Assessment and Plan: Recurrent UTIs, -Urine culture grew shonna. - Urology consulted and stated most likely chronically colonized. - Stents are placed, and can be changed every 3 months, plunkett catheter should bet changed every 3-4 weeks. - Due to patient going home with plunkett will stop oxybutynin Plan: - abx and antifungals d/c as per ID yesterday - stop oxybutynin -due to new white count will check a UA (8) NSTEMI (non-ST elevated myocardial infarction) Current Visit: Yes Status: Acute Assessment and Plan: Elevated troponin: max 2.67, last troponin 0.86. -most likely a type 2 TX 2/2 demand ischemia -denies active chest pain -has h/o CAD, s/p CABG -TTE shows LVEF 30%. Global and segmental LV systolic dysfunction. Mildly dilated left ventricle. Atypical septal motion consistent with post-operative status. Mild-moderate mitral regurgitation. Mild tricuspid regurgitation. Plan: -Cardiology consulted, signed off and recommended continued medical management - on ASA, BB, statin. Restarted plavix (12/13/17). -currently ASA/plavix held so IR can place permacath - d/c heparin drip 12/12/17. (9) Catatonia Current Visit: Yes Status: Resolved Assessment and Plan: Unsure of cause. Began following present illness, thought to be due to psychiatric illness. Worsened on Lorazepam but improved with memantine and NMDA antagonist. Plan: - memantine 5mg BID ---> increased to 5mg in AM PO and 10 mg at night PO daily - psych consulted, after 1-2 days, can increase memantine 5mg AM and 10mg PM, after 3 days increase to 10mg BID -on day 2 on 5mg/10mg PO memantine - lorazepam d/c (10) Shonna infection Current Visit: Yes Status: Acute Assessment and Plan: urine culture: Candidda albicans (12/10). Pt was recently admitted for hematuria/ sepsis 2/2 UTI and was tx with Vanc and Cefepime, as per ID has had shonna in the past in urine. Also shonna in mouth and under skin folds. Plan: - ID consulted, Continue diflucan through 12/18. Nystatin swish and spit and topical - urology consulted for recurrent UTIs, plan as above (11) Chronic anemia Current Visit: No Status: Chronic Assessment and Plan: Stable. Most likely 2/2 to nutritional deficiency. Iron 36, Iron % sat 20, transferrin 130 Plan: continue home ferrous sulfate (12) Atrial flutter with rapid ventricular response Current Visit: Yes Status: Resolved Assessment and Plan: Currently rate controlled. Atrial flutter with RVR seen on biventriculr ICD. -New diagnosis, since 12/09/17. -Currently resolved, HR wnl. Plan: - continue increased home med toprol XL to 50 mg (home dose). - avoiding cardizem in the setting of known CMP EF 30%. - cardiology talked to family and have concluded anticoagulation risks out weight benefits - discontinue ASA and Plavix so pt can have permacath placement tuesday (13) Obesity Current Visit: No Status: Chronic Assessment and Plan: BMI 39.2 -lifestyle modification - Time Spent with Patient Total time spent is greater than 50% in coordination of care (as documented) at patient's floor/unit and/or counseling patient: Internal Medicine: Result - Labs CBC & Chem 7: 12/21/17 04:00 12/21/17 04:40 Labs: Short CBC 12/21/17 Range/Units 04:00 WBC 12.2 H (4.3-11.1) K/mcL Hgb 7.9 L (11.5-15.4) g/dL Hct 26.5 L (35.3-44.9) % Plt Count 233 (140-400) K/mcL Neutrophils # 9.4 H (1.6-8.9) K/mcL BMP 12/21/17 04:40 Sodium 142 Potassium 4.1 Chloride 104 Carbon Dioxide 28 BUN 25 H Creatinine 4.37 H Glucose 100 Calcium 8.5 L Liver Function 12/21/17 Range/Units 04:40 Total Bilirubin 0.5 (0.3-1.0) mg/dL AST 14 (13-39) Units/L ALT 9 (7-52) Units/L Alkaline Phosphatase 89 (34-104) Units/L Albumin 2.7 L (3.5-5.7) g/dL - ABG Interpretation ABG results: PT/INR, D-dimer PT 15.6 Seconds (9.4-12.1) H 12/10/17 02:55 - VTE Documentation of Mechanical Device: Intermittent pneumatic compression device Consult Discharge Plan - Plan Instructions: BiPAP, Pocketed Spring Machine Operator (GEN) Referrals: Wale Lam DO [Primary Care Provider] - (PATIENT IS GOING TO [facility] NO PCP APPOINTMENT NEEDED) <Wilfred Bunn - Last Filed: 12/21/17 17:57> Hospitalist Progress Note - Encounter Date of Encounter: 12/21/17 - Exam Vitals: Temp Pulse Resp BP Pulse Ox 99.4 F 116 18 104/65 96 12/21/17 17:25 12/21/17 17:25 12/21/17 17:25 12/21/17 17:25 12/21/17 17:25 - Assessment and Plan (1) Acute kidney injury superimposed on chronic kidney disease Current Visit: Yes Status: Acute (2) Hypertension Current Visit: No Status: Chronic (3) Type 2 diabetes mellitus Current Visit: No Status: Chronic (4) Chronic systolic heart failure Current Visit: No Status: Chronic (5) Pneumonia Current Visit: Yes Status: Ruled-out (6) Sepsis Current Visit: Yes Status: Resolved (7) UTI (urinary tract infection) Current Visit: Yes Status: Resolved (8) NSTEMI (non-ST elevated myocardial infarction) Current Visit: Yes Status: Acute (9) Catatonia Current Visit: Yes Status: Resolved (10) Shonna infection Current Visit: Yes Status: Acute (11) Chronic anemia Current Visit: No Status: Chronic (12) Atrial flutter with rapid ventricular response Current Visit: Yes Status: Resolved (13) Obesity Current Visit: No Status: Chronic - Time Spent with Patient Total time spent is greater than 50% in coordination of care (as documented) at patient's floor/unit and/or counseling patient: Internal Medicine: Result - Labs CBC & Chem 7: 12/21/17 04:00 12/21/17 04:40 Labs: Short CBC 12/21/17 Range/Units 04:00 WBC 12.2 H (4.3-11.1) K/mcL Hgb 7.9 L (11.5-15.4) g/dL Hct 26.5 L (35.3-44.9) % Plt Count 233 (140-400) K/mcL Neutrophils # 9.4 H (1.6-8.9) K/mcL BMP 12/21/17 04:40 Sodium 142 Potassium 4.1 Chloride 104 Carbon Dioxide 28 BUN 25 H Creatinine 4.37 H Glucose 100 Calcium 8.5 L Liver Function 12/21/17 Range/Units 04:40 Total Bilirubin 0.5 (0.3-1.0) mg/dL AST 14 (13-39) Units/L ALT 9 (7-52) Units/L Alkaline Phosphatase 89 (34-104) Units/L Albumin 2.7 L (3.5-5.7) g/dL - ABG Interpretation ABG results: PT/INR, D-dimer PT 15.6 Seconds (9.4-12.1) H 12/10/17 02:55 - Attending Attestation I examined this patient and my medical decision-making was reviewed with the Resident Physician Dr. Ramirez. I agree with the documented findings, disposition and treatment plan as described except to the extent set forth below. Ms. Bentley is a 72 year old female with PMH of T2DM, HTN, HDL, catatonia, chronic systolic heart failure, CKD-3, recurrent UTI, and chronic psychiatry problems who had an extensive hospital stay here during her last hospitalization. Pt was admitted with sepsis, due to URI later she developed shock, acute respiratroy failure, got intubated and she also happened to have DVT for which she was started on Anti coag. pt developed hematuria so anti coag got d/cd and placed IVC filter. Pt mentation was never improved, she was always non verbal and severe cataonic appearance. pt was evaluated by psych who recommend ECT treatment. pt was d[facility]c to [facility] on 12/[facility]/17. Now she was sent back to ER on with worsening AMS. She happened to have NSTEMI with Trop @ 2.16, UTI and TENISHA on CKD-3 with cr @ 3.48. She was admitted in the hospital and started her empirical abx Cefepime. She is resting comfortably. Today she is more alert, awake and following all the commands.. Communicating verbally. Looks depressed, denied any suicidal ideation. Gen: A, A, O to self Chest: Diminished BS b/l , No wheezing Heart: S1S2+ Tachy, No murmurs 1. Sepsis with UTI h/o Shonna in the past Finished empirical abx Cefepime + Diflucan 2. Acute PNA - aspiration Finished Cefepime + Flagyl 3. NSTEMI finished 48hrs anti coag cont ASA on Metoprolol 4. ESRD on HD Waiting for Perm cath placement after Plavix wash out Nephro on board <Anatoliy Ramirez S - Last Filed: 12/21/17 10:56> (1) Sepsis Qualifiers: Sepsis type: sepsis due to unspecified organism Qualified Code(s): A41.9 - Sepsis, unspecified organism (3) Hypertension Qualifiers: Hypertension type: essential hypertension Qualified Code(s): I10 - Essential (primary) hypertension (4) Type 2 diabetes mellitus Qualifiers: Diabetes mellitus fisher dip net insulin use: with half-way use Diabetes mellitus complication status: with kidney complications Diabetes mellitus complication detail: with chronic kidney disease Chronic kidney disease stage: stage 4 (severe) Qualified Code(s): E11.22 - Type 2 diabetes mellitus with diabetic chronic kidney disease; N18.4 - Chronic kidney disease, stage 4 (severe ); Z79.4 - FCI (current) use of insulin (6) Pneumonia Qualifiers: Pneumonia type: due to unspecified organism Laterality: right Lung location : lower lobe of lung Qualified Code(s): J18.1 - Lobar pneumonia, unspecified organism (7) UTI (urinary tract infection) Qualifiers: Urinary tract infection type: site unspecified Hematuria presence: without hematuria Qualified Code(s): N39.0 - Urinary tract infection, site not specified (13) Obesity Qualifiers: Obesity type: due to excess calories Obesity classification: adult class 3 ( BMI >= 40) Serious obesity comorbidity presence: with serious comorbidity Body mass index: BMI 40.0-44.9 Qualified Code(s): E66.01 - Morbid (severe) obesity due to excess calories; Z68.41 - Body mass index (BMI) 40.0-44.9, adult <Wilfred Bunn - Last Filed: 12/21/17 17:57> (2) Hypertension Qualifiers: Hypertension type: essential hypertension Qualified Code(s): I10 - Essential (primary) hypertension (3) Type 2 diabetes mellitus Qualifiers: Diabetes mellitus half-way insulin use: with fisher dip net use Diabetes mellitus complication status: with kidney complications Diabetes mellitus complication detail: with chronic kidney disease Chronic kidney disease stage: stage 4 (severe) Qualified Code(s): E11.22 - Type 2 diabetes mellitus with diabetic chronic kidney disease; N18.4 - Chronic kidney disease, stage 4 (severe ); Z79.4 - FCI (current) use of insulin (5) Pneumonia Qualifiers: Pneumonia type: due to unspecified organism Laterality: right Lung location : lower lobe of lung Qualified Code(s): J18.1 - Lobar pneumonia, unspecified organism (6) Sepsis Qualifiers: Sepsis type: sepsis due to unspecified organism Qualified Code(s): A41.9 - Sepsis, unspecified organism (7) UTI (urinary tract infection) Qualifiers: Urinary tract infection type: site unspecified Hematuria presence: without hematuria Qualified Code(s): N39.0 - Urinary tract infection, site not specified (13) Obesity Qualifiers: Obesity type: due to excess calories Obesity classification: adult class 3 ( BMI >= 40) Serious obesity comorbidity presence: with serious comorbidity Body mass index: BMI 40.0-44.9 Qualified Code(s): E66.01 - Morbid (severe) obesity due to excess calories; Z68.41 - Body mass index (BMI) 40.0-44.9, adult
--- NOTE | 2017-12-21 13:39 | Nephrology Progress Note ---
Date of Encounter: 12/21/17 Time of Encounter: 08:45 - Assessment and Plan (1) Acute kidney injury superimposed on chronic kidney disease Current Visit: Yes Status: Acute Acute kidney injury on CKD stage IV, baseline GFR in the 20 Patient remains hemodialysis dependent at this time, scheduled for HD later today Patient's respiratory status also appears unchanged, still is dyspneic/ tachypneic and requires 2 L of oxygen Aspirin and Plavix were held yesterday for an today of placement of permacath on Tuesday by IR She has had no more issues with hypotension, however does remain tachycardic We will remain cautious with ultrafiltration during hemodialysis Plan -Scheduled for hemodialysis this afternoon -Social work has been consulted and is planning for chair time at time of discharge. Tentatively scheduled for TTS -Hold aspirin and Plavix to plan for insertion of PermCath prior to discharge. IR requires 5 days without medication prior to insertion. Patient will need to be nothing by mouth at midnight on (2) Dyspnea and respiratory abnormality Current Visit: Yes Status: Acute Improved substantially compared to time of admission We will continue to conservatively remove fluid as able during hemodialysis (3) Anemia Current Visit: No Status: Acute Significant anemia, hemoglobin 7.9 Patient was started on Aranesp earlier this week and is responding well This medication we stopped at time of discharge Qualifiers: Anemia type: unspecified type Qualified Code(s): D64.9 - Anemia, unspecified (4) UTI (urinary tract infection) Current Visit: Yes Status: Resolved Urine demonstrates Yolanda species on culture Urology has been consulted, suspect chronic colonization Management per primary team Qualifiers: Urinary tract infection type: site unspecified Hematuria presence: without hematuria Qualified Code(s): N39.0 - Urinary tract infection, site not specified Subjective Principal diagnosis: NSTEMI Interval history: The patient seen and examined at bedside. She is resting comfortably in bed at time of examination. She has no acute complaints this morning. Objective - Vital Signs Vital signs: Vital Signs Temp Pulse Resp BP Pulse Ox 12/21/17 12:35 141/82 12/21/17 12:25 157/82 12/21/17 12:10 155/92 12/21/17 11:55 141/88 12/21/17 11:40 152/80 12/21/17 11:25 158/82 12/21/17 11:10 151/80 12/21/17 10:55 152/83 12/21/17 10:40 147/81 12/21/17 10:25 148/87 12/21/17 10:10 149/85 12/21/17 09:55 151/85 12/21/17 09:40 98.6 F 18 151/80 12/21/17 08:24 98.8 F 106 16 128/71 98 12/21/17 04:22 98 F 88 15 139/75 98 12/20/17 23:15 97.7 F 94 16 125/77 100 12/20/17 20:37 98.6 F 90 16 130/78 100 12/20/17 16:43 98.7 F 95 18 105/65 97 Intake and Output 12/20/17 12/21/17 12/21/17 23:59 07:59 15:59 Other: Weight 100.5 kg Blood Glucose* 134 92 Hemodialysis Net Fluid Removed 1100 (mL) - General Appearance Exam: General appearance: Present: chronically ill, fatigue EENT: Present: ATNC, mucous membranes dry Neck: Present: no JVD, supple. Temporary dialysis catheter in right IJ with no surrounding erythema or exudates Respiratory: Present: clear (ant bilat), no wheezes noted Cardiology: Present: edema (trace LE edema bilat), normal S1, normal S2 Gastrointestinal: Present: no tenderness, no guarding Integumentary: Present: warm and dry. Decubitus ulcers on b/l heels Neurologic: Present: no focal deficit, patient does not speak Musculoskeletal: Present: no deformities Psychiatric: Present: depressed. Still does not talk much. - Lab 12/21/17 04:00 12/21/17 04:40 Most recent lab results Calcium 8.5 mg/dL (8.6-10.3) L 12/21/17 04:40 Phosphorus 2.1 mg/dL (2.7-4.5) L 12/10/17 00:46 Magnesium 1.9 mg/dL (1.6-2.6) 12/11/17 05:40 Urine Creatinine 79 mg/dL 12/10/17 15:45 Urine Sodium 72.1 mEq/L 12/10/17 15:45 - VTE Documentation of Mechanical Device: Intermittent pneumatic compression device Consult Discharge Plan - Plan Instructions: BiPAP, Seismic Prospecting Observer Helper (GEN) Referrals: Wale Lam DO [Primary Care Provider] - (PATIENT IS GOING TO [facility] NO PCP APPOINTMENT NEEDED)
[2017-12-21] MEDS: Ondansetron 4 MG/2 ML VIAL IVP PRN ×2 (13:41→21:25)
[2017-12-22 03:38] LABS: Basophils # 0.1 K/mcL (0.0-0.2); Basophils % 0.3 %; Eosinophils # 0.2 K/mcL (0.0-0.6); Eosinophils % 1.3 %; Hematocrit 26.4 % (35.3-44.9); Hemoglobin 7.9 g/dL (11.5-15.4); Immature Granulocytes % 0.7 % (0-4); Immature Platelets 3.9 % (1.1-6.1); Lymphocytes # 1.2 K/mcL (0.6-4.6); Lymphocytes % 7.2 %; Mean Corpuscular HGB Conc 29.9 g/dL (31.6-35.5); Mean Corpuscular Hemoglobin 28.4 pg (28.0-33.3); Mean Platelet Volume 10.1 fL (9.4-12.4); Monocytes # 1.3 K/mcL (0.0-1.3); Monocytes % 7.9 %; Neutrophils # 13.6 K/mcL (1.6-8.9); Platelet Count 236 K/mcL (140-400); Red Blood Count 2.78 M/mcL (3.82-4.97); Red Cell Distribution Width 18.5 % (11.5-14.5); Segmented Neutrophils % 82.6 %
[2017-12-22 05:32] LABS: Albumin 2.5 g/dL (3.5-5.7); Albumin/Globulin Ratio 0.7 (1.1-2.2); Bilirubin,Total 0.6 mg/dL (0.3-1.0); Calcium 8.2 mg/dL (8.6-10.3); Globulin 3.6 g/dL (2.4-3.5); Potassium 3.7 mEq/L (3.5-5.1); Total Protein 6.1 g/dL (6.4-8.9)
[2017-12-22] MEDS: *HR* Heparin 5,000 UNIT/ML VIAL SQ SCH ×2 (05:33→16:37)
[2017-12-22] MEDS: Ascorbic Acid 500 MG TABLET PO SCH ×2 (08:09→20:34)
[2017-12-22] MEDS: Nystatin SUSP 5 ML UD.LIQ PO SCH ×4 (08:10→20:35)
[2017-12-22] MEDS: Insulin LISPRO 300 UNITS/3 ML VIAL SQ SCH ×4 (08:14→20:31)
[2017-12-22] MEDS: Insulin DETEMIR 100 UNIT/ML X5UNITS SQ SCH ×2 (08:16→20:35)
--- NOTE | 2017-12-22 08:44 | Internal Med Progress Note ---
<Anatoliy Ramirez S - Last Filed: 12/22/17 11:27> Hospitalist Progress Note - Encounter Date of Encounter: 12/22/17 Time of Encounter: 08:38 - Subjective Interval History: Pt is seen at the bedside. She was admitted on Tuesday (12/09/17) for AMS from her [facility] living. She was discharged the day before after being tx for sepsis 2/2 UTI and had to be intubated for acute respiratory failure. Pt later developed DVT and was put on anicoag, which was d/c'd secondary to hematuria. She was sent back and found to have an NSTEMI with troponin peak at 2.16 , UTI and TENISHA with CKD 3 The patient mentation is slightly better today. She is oriented to self, time and place today - She denies pain, CP, SOB , N/V/D Urine is yellow , no blood Nurses report no overnight events. Pt denies active chest pain, SOB, N/V/D. -denies fevers/chills -has no acute complaints or concerns - Exam Vitals: Temp Pulse Resp BP Pulse Ox 99.6 F 92 16 124/58 92 12/22/17 08:00 12/22/17 08:00 12/22/17 08:00 12/22/17 08:00 12/22/17 08:00 Exam: Constitutional: Alert, in no acute distress , disheveled HEENT: central line right side of neck, Normocephalic, atraumatic Heart: Normal, regular rate and rhythm, no murmurs Lungs: Clear to auscultation, no wheezes, rales, or rhonchi Abdomen: Soft, nondistended, nontender, obese Extremities: multiple toe amputations bilaterally, + 2 pitting edema with redness present on anterior aspect of shins, No clubbing, Skin: Skin warm and dry, no lesions, no rashes, no jaundice Neurologic: Cooperative with exam,, increased talking - Assessment and Plan (1) Sepsis Current Visit: Yes Status: Resolved Assessment and Plan: Infectious cause: pneumonia and UTI. Currently meets sepsis criteria HR 110, RR 18 New WBC count 12/21 - 12.2 ---> increased to 16.5 (12/22) -low grade temperature max of 99.6 -Blood culture /2 grew s. epidermidis, most likely contaminate. -Repeat BC (12/12) no growth -Urine cx shonna albicans Plan: - cefepime, diflucan and flagyl d/c as per ID on 12/18 - ID consulted, signed off 12/19 - currently hemodynamically stable, pt has hx of HF, will hold off on fluids at this time - curbsided ID resident, she will talk to Dr. Mercdao about further recomendations - repeat UA pending - blood cx pending - 2view cxr pending - check post void residual q shift - bladder scan stat - cbc in the AM (2) Acute kidney injury superimposed on chronic kidney disease Current Visit: Yes Status: Acute Assessment and Plan: - Creatinine improved to 3.61 ---> 2.50 after HD x2 sessions. On Tuesday increased to 3.41, no HD yesterday - today GFR = 11, baseline 20. -Creatinine 12/19 = 4.08, increased from 3.41 -Creatinine (12/20) is 3.03 ---> creatinine increased to 4.37 (12/21) ---> 3.07 () - last HD session Tuesday -Baseline creatinine < 3. Retroperitoneal US was unremarkable. -Nephrology following -temporary dialysis cath in place by IR Plan: - nephrology consulted, the pt had HD Tuesday - currently no fluids running - avoid nephrotoxins - nephro started Darbeopoetin, can d/c on discharge as per nephrology - pt will need perm cath for HD as per nephro. Spoke with IR and they said she needs to be off ASA/Plavix for 5 days. Both rx have been held. She is day 3 no asa/plavix - cant be completed tomorrow because of sepsis/leukocytosis - will work up new wbc count to determine source of infxn before having permacath placement - spoke with SW about d/c today - the pt doesn't want to go back to [facility]. SW to speak with pt about options. - Currently has a bed held at [facility] pending discharge. - plunkett catheter d/c yesterday; check post void residual q shift - NPO at midnight, IR consulted for permacath placement - dispo: permacath placement as per IR once pt has been off ASA/plavix for 5 days total , which cannot be completed tomorrow due to leukocytosis and sepsis (3) Hypertension Current Visit: No Status: Chronic Assessment and Plan: BP 97/68 today - adequate control - Hold home med: amlodipine 10mg (4) Type 2 diabetes mellitus Current Visit: No Status: Chronic Assessment and Plan: Glucoses well controlled on Levemir 10 units BID -glucose this AM 106 Plan: - continue ISS to high dose - 10 units of Levemir BID (5) Chronic systolic heart failure Current Visit: No Status: Chronic Assessment and Plan: Last ECHO was in 2016, LVEF at that time was 30%,Not in acute exacerbation Plan: -diuretics held 2/2 TENISHA; nephro gave a 1x dose of IV lasix (12/14/17) -strict I&O's -cardiac/diabetic diet (6) Pneumonia Current Visit: Yes Status: Ruled-out Assessment and Plan: CXR/CT was concerning for infiltrates on B/L basal regions, possible aspiration pneumonia. -speech assessment not concerning for aspiration Plan: -completed abx as per ID on 12/18 - d/c cefepime and flagyl - diet: thin liquids and advanced soft texture (7) UTI (urinary tract infection) Current Visit: Yes Status: Resolved Assessment and Plan: Recurrent UTIs, -Urine culture grew shonna. - Urology consulted and stated most likely chronically colonized. - Stents are placed, and can be changed every 3 months, plunkett catheter should bet changed every 3-4 weeks. - Due to patient going home with plunkett will stop oxybutynin Plan: - abx and antifungals d/c as per ID yesterday - stop oxybutynin - due to new white count will check a UA and blood cx (8) NSTEMI (non-ST elevated myocardial infarction) Current Visit: Yes Status: Acute Assessment and Plan: Elevated troponin: max 2.67, last troponin 0.86. -most likely a type 2 CT 2/2 demand ischemia -denies active chest pain -has h/o CAD, s/p CABG -TTE shows LVEF 30%. Global and segmental LV systolic dysfunction. Mildly dilated left ventricle. Atypical septal motion consistent with post-operative status. Mild-moderate mitral regurgitation. Mild tricuspid regurgitation. Plan: -Cardiology consulted, signed off and recommended continued medical management - on ASA, BB, statin. Restarted plavix (12/13/17). -currently ASA/plavix held so IR can place permacath - d/c heparin drip 12/12/17. (9) Catatonia Current Visit: Yes Status: Resolved Assessment and Plan: Unsure of cause. Began following present illness, thought to be due to psychiatric illness. Worsened on Lorazepam but improved with memantine and NMDA antagonist. Plan: - memantine 5mg BID ---> increased to 5mg in AM PO and 10 mg at night PO daily - psych consulted, after 1-2 days, can increase memantine 5mg AM and 10mg PM, after 3 days increase to 10mg BID -on day 3 on 5mg/10mg PO memantine, will increase to 10mg BID tomorrow (12/23) - lorazepam d/c (10) Shonna infection Current Visit: Yes Status: Acute Assessment and Plan: urine culture: Candidda albicans (12/10). Pt was recently admitted for hematuria/ sepsis 2/2 UTI and was tx with Vanc and Cefepime, as per ID has had shonna in the past in urine. Also shonna in mouth and under skin folds. Plan: - ID consulted, Continue diflucan through 12/18. Nystatin swish and spit and topical - urology consulted for recurrent UTIs, plan as above (11) Chronic anemia Current Visit: No Status: Chronic Assessment and Plan: Stable. Most likely 2/2 to nutritional deficiency. Iron 36, Iron % sat 20, transferrin 130 Plan: continue home ferrous sulfate (12) Atrial flutter with rapid ventricular response Current Visit: Yes Status: Resolved Assessment and Plan: Currently rate controlled. Atrial flutter with RVR seen on biventriculr ICD. -New diagnosis, since 12/09/17. -Currently resolved, HR wnl. Plan: - continue increased home med toprol XL to 50 mg (home dose). - avoiding cardizem in the setting of known CMP EF 30%. - cardiology talked to family and have concluded anticoagulation risks out weight benefits - discontinue ASA and Plavix so pt can have permacath placement tuesday (13) Obesity Current Visit: No Status: Chronic Assessment and Plan: BMI 40.1 -lifestyle modification DVT Prophylaxis: SQ Heparin - Time Spent with Patient Total time spent is greater than 50% in coordination of care (as documented) at patient's floor/unit and/or counseling patient: less than 15 minutes Plan of Care Discussed with: patient Internal Medicine: Result - Labs CBC & Chem 7: 12/22/17 03:23 12/22/17 03:23 Labs: Short CBC 12/22/17 Range/Units 03:23 WBC 16.5 H (4.3-11.1) K/mcL Hgb 7.9 L (11.5-15.4) g/dL Hct 26.4 L (35.3-44.9) % Plt Count 236 (140-400) K/mcL Neutrophils # 13.6 H (1.6-8.9) K/mcL BMP 12/22/17 03:23 Sodium 141 Potassium 3.7 Chloride 102 Carbon Dioxide 31 H BUN 13 Creatinine 3.07 H Glucose 106 H Calcium 8.2 L Liver Function 12/22/17 Range/Units 03:23 Total Bilirubin 0.6 (0.3-1.0) mg/dL AST 13 (13-39) Units/L ALT 7 (7-52) Units/L Alkaline Phosphatase 89 (34-104) Units/L Albumin 2.5 L (3.5-5.7) g/dL - ABG Interpretation ABG results: PT/INR, D-dimer PT 15.6 Seconds (9.4-12.1) H 12/10/17 02:55 - VTE Documentation of Mechanical Device: Intermittent pneumatic compression device Consult Discharge Plan - Plan Instructions: BiPAP, Flat Surfacer (GEN) Referrals: Wale Lam DO [Primary Care Provider] - (PATIENT IS GOING TO ECF NO PCP APPOINTMENT NEEDED) <Wilfred Bunn - Last Filed: 12/22/17 18:07> Hospitalist Progress Note - Encounter Date of Encounter: 12/22/17 - Exam Vitals: Temp Pulse Resp BP Pulse Ox 99.6 F 112 16 127/71 96 12/22/17 16:02 12/22/17 16:02 12/22/17 16:02 12/22/17 16:02 12/22/17 16:02 - Assessment and Plan (1) Acute kidney injury superimposed on chronic kidney disease Current Visit: Yes Status: Acute (2) Hypertension Current Visit: No Status: Chronic (3) Type 2 diabetes mellitus Current Visit: No Status: Chronic (4) Chronic systolic heart failure Current Visit: No Status: Chronic (5) Pneumonia Current Visit: Yes Status: Ruled-out (6) Sepsis Current Visit: Yes Status: Resolved (7) UTI (urinary tract infection) Current Visit: Yes Status: Resolved (8) NSTEMI (non-ST elevated myocardial infarction) Current Visit: Yes Status: Acute (9) Catatonia Current Visit: Yes Status: Resolved (10) Shonna infection Current Visit: Yes Status: Acute (11) Chronic anemia Current Visit: No Status: Chronic (12) Atrial flutter with rapid ventricular response Current Visit: Yes Status: Resolved (13) Obesity Current Visit: No Status: Chronic - Time Spent with Patient Total time spent is greater than 50% in coordination of care (as documented) at patient's floor/unit and/or counseling patient: Internal Medicine: Result - Labs CBC & Chem 7: 12/22/17 03:23 12/22/17 03:23 Labs: Short CBC 12/22/17 Range/Units 03:23 WBC 16.5 H (4.3-11.1) K/mcL Hgb 7.9 L (11.5-15.4) g/dL Hct 26.4 L (35.3-44.9) % Plt Count 236 (140-400) K/mcL Neutrophils # 13.6 H (1.6-8.9) K/mcL BMP 12/22/17 03:23 Sodium 141 Potassium 3.7 Chloride 102 Carbon Dioxide 31 H BUN 13 Creatinine 3.07 H Glucose 106 H Calcium 8.2 L Liver Function 12/22/17 Range/Units 03:23 Total Bilirubin 0.6 (0.3-1.0) mg/dL AST 13 (13-39) Units/L ALT 7 (7-52) Units/L Alkaline Phosphatase 89 (34-104) Units/L Albumin 2.5 L (3.5-5.7) g/dL - ABG Interpretation ABG results: PT/INR, D-dimer PT 15.6 Seconds (9.4-12.1) H 12/10/17 02:55 - Impressions Impressions Chest X-Ray 12/22/17 11:07 IMPRESSION: Cardiomegaly with vascular congestion. D/ / 12/22/2017 14:49:54 Abdullahi Vides MD / vitor Interpreting Provider: Abdullahi Vides MD - Attending Attestation I examined this patient and my medical decision-making was reviewed with the Resident Physician Dr. Ramirez. I agree with the documented findings, disposition and treatment plan as described except to the extent set forth below. Ms. Bentley is a 72 year old female with PMH of T2DM, HTN, HDL, catatonia, chronic systolic heart failure, CKD-3, recurrent UTI, and chronic psychiatry problems who had an extensive hospital stay here during her last hospitalization. Pt was admitted with sepsis, due to URI later she developed shock, acute respiratroy failure, got intubated and she also happened to have DVT for which she was started on Anti coag. pt developed hematuria so anti coag got d/cd and placed IVC filter. Pt mentation was never improved, she was always non verbal and severe cataonic appearance. pt was evaluated by psych who recommend ECT treatment. pt was d/c to ECF on 12/08/17. Now she was sent back to ER on with worsening AMS. She happened to have NSTEMI with Trop @ 2.16, UTI and TENISHA on CKD-3 with cr @ 3.48. She was admitted in the hospital and started her empirical abx Cefepime. She is resting comfortably. Today she is more alert, awake and following all the commands.. Communicating verbally. Looks depressed, denied any suicidal ideation. Gen: A, A, O to self Chest: Diminished BS b/l , No wheezing Heart: S1S2+ Tachy, No murmurs 1. Sepsis with UTI h/o Shonna in the past Finished empirical abx Cefepime + Diflucan on 12/18/17 Now she started having worsening WBC and sinus tachycardia will check UA again.. Bladder scan.. Blood cx for now 2. Acute PNA - aspiration Finished Cefepime + Flagyl 3. NSTEMI finished 48hrs anti coag cont ASA on Metoprolol 4. ESRD on HD Waiting for Perm cath placement after Plavix wash out Nephro on board <Anatoliy Ramirez - Last Filed: 12/22/17 11:27> (1) Sepsis Qualifiers: Sepsis type: sepsis due to unspecified organism Qualified Code(s): A41.9 - Sepsis, unspecified organism (3) Hypertension Qualifiers: Hypertension type: essential hypertension Qualified Code(s): I10 - Essential (primary) hypertension (4) Type 2 diabetes mellitus Qualifiers: Diabetes mellitus nursing home insulin use: with nursing home use Diabetes mellitus complication status: with kidney complications Diabetes mellitus complication detail: with chronic kidney disease Chronic kidney disease stage: stage 4 (severe) Qualified Code(s): E11.22 - Type 2 diabetes mellitus with diabetic chronic kidney disease; N18.4 - Chronic kidney disease, stage 4 (severe ); Z79.4 - director long term care (current) use of insulin (6) Pneumonia Qualifiers: Pneumonia type: due to unspecified organism Laterality: right Lung location : lower lobe of lung Qualified Code(s): J18.1 - Lobar pneumonia, unspecified organism (7) UTI (urinary tract infection) Qualifiers: Urinary tract infection type: site unspecified Hematuria presence: without hematuria Qualified Code(s): N39.0 - Urinary tract infection, site not specified (13) Obesity Qualifiers: Obesity type: due to excess calories Obesity classification: adult class 3 ( BMI >= 40) Serious obesity comorbidity presence: with serious comorbidity Body mass index: BMI 40.0-44.9 Qualified Code(s): E66.01 - Morbid (severe) obesity due to excess calories; Z68.41 - Body mass index (BMI) 40.0-44.9, adult <Wilfred Bunn - Last Filed: 12/22/17 18:07> (2) Hypertension Qualifiers: Hypertension type: essential hypertension Qualified Code(s): I10 - Essential (primary) hypertension (3) Type 2 diabetes mellitus Qualifiers: Diabetes mellitus nursing home insulin use: with termite treater helper use Diabetes mellitus complication status: with kidney complications Diabetes mellitus complication detail: with chronic kidney disease Chronic kidney disease stage: stage 4 (severe) Qualified Code(s): E11.22 - Type 2 diabetes mellitus with diabetic chronic kidney disease; N18.4 - Chronic kidney disease, stage 4 (severe ); Z79.4 - director long term care (current) use of insulin (5) Pneumonia Qualifiers: Pneumonia type: due to unspecified organism Laterality: right Lung location : lower lobe of lung Qualified Code(s): J18.1 - Lobar pneumonia, unspecified organism (6) Sepsis Qualifiers: Sepsis type: sepsis due to unspecified organism Qualified Code(s): A41.9 - Sepsis, unspecified organism (7) UTI (urinary tract infection) Qualifiers: Urinary tract infection type: site unspecified Hematuria presence: without hematuria Qualified Code(s): N39.0 - Urinary tract infection, site not specified (13) Obesity Qualifiers: Obesity type: due to excess calories Obesity classification: adult class 3 ( BMI >= 40) Serious obesity comorbidity presence: with serious comorbidity Body mass index: BMI 40.0-44.9 Qualified Code(s): E66.01 - Morbid (severe) obesity due to excess calories; Z68.41 - Body mass index (BMI) 40.0-44.9, adult
[2017-12-22] MEDS: MICONAZOLE NITRATE 57 GM TUBE TP SCH ×2 (13:30→20:35)
[2017-12-22] MEDS: Nystatin POWDER 30 GM BOTTLE TP SCH ×2 (13:30→20:36)
--- NOTE | 2017-12-22 14:35 | Nephrology Progress Note ---
Date of Encounter: 12/22/17 Time of Encounter: 08:40 - Assessment and Plan (1) Acute kidney injury superimposed on chronic kidney disease Current Visit: Yes Status: Acute Acute kidney injury on CKD stage IV, baseline GFR in the 20 Patient remains hemodialysis dependent at this time, scheduled MWF Patient's respiratory status also appears unchanged, still is dyspneic/ tachypneic and requires 2 L of oxygen Aspirin Plavix have been held this week for placement of permanent catheter, however the patient's white count has increased and she has been febrile infections and sepsis. We are concerned that there is increasing signs of infection We will likely wait until Tuesday for IR consult for PermCath placement, repeat cultures pending from primary She is biochemically stable today Plan -Scheduled for hemodialysis tomorrow -Social work has been consulted and is planning for chair time at time of discharge. Tentatively scheduled for TTS -Hold aspirin and Plavix to plan for insertion of PermCath prior to discharge. IR requires 5 days without medication prior to insertion. Plan for permanent catheter on Tuesday (2) Dyspnea and respiratory abnormality Current Visit: Yes Status: Acute Improved substantially compared to time of admission We will continue to conservatively remove fluid as able during hemodialysis (3) Anemia Current Visit: No Status: Acute Significant anemia, hemoglobin 7.9 Patient was started on Aranesp earlier this week and is responding well This medication we stopped at time of discharge Qualifiers: Anemia type: unspecified type Qualified Code(s): D64.9 - Anemia, unspecified (4) UTI (urinary tract infection) Current Visit: Yes Status: Resolved Urine demonstrates Yolanda species on culture Urology has been consulted, suspect chronic colonization Management per primary team Qualifiers: Urinary tract infection type: site unspecified Hematuria presence: without hematuria Qualified Code(s): N39.0 - Urinary tract infection, site not specified Subjective Principal diagnosis: NSTEMI Interval history: The patient seen and examined at bedside. She is resting comfortably in bed at time of examination. She does complain that she is having more pain in her legs which was previously, and is more redness there as well. She has no other acute complaints. Objective - Vital Signs Vital signs: Vital Signs Temp Pulse Resp BP Pulse Ox 12/22/17 12:04 98.7 F 105 16 129/52 92 12/22/17 11:14 98.1 F 66 15 128/76 95 12/22/17 08:00 99.6 F 92 16 124/58 92 12/22/17 03:28 99.5 F 110 17 97/63 95 12/21/17 23:30 99.1 F 112 18 101/64 93 12/21/17 21:30 92 12/21/17 17:25 99.4 F 116 18 104/65 96 Intake and Output 12/21/17 12/22/17 12/22/17 23:59 07:59 15:59 Other: Weight 102.6 kg Blood Glucose* 118 229 - General Appearance Exam: General appearance: Present: chronically ill, fatigue EENT: Present: ATNC, mucous membranes dry Neck: Present: no JVD, supple. Temporary dialysis catheter in right IJ with no surrounding erythema or exudates Respiratory: Present: clear (ant bilat), no wheezes noted Cardiology: Present: edema (trace LE edema bilat), normal S1, normal S2 Gastrointestinal: Present: no tenderness, no guarding Integumentary: Present: warm and dry. Decubitus ulcers on b/l heels Neurologic: Present: no focal deficit, patient does not speak Musculoskeletal: Present: no deformities Psychiatric: Present: depressed. Still does not talk much. - Lab 12/22/17 03:23 12/22/17 03:23 Most recent lab results Calcium 8.2 mg/dL (8.6-10.3) L 12/22/17 03:23 Phosphorus 2.1 mg/dL (2.7-4.5) L 12/10/17 00:46 Magnesium 1.9 mg/dL (1.6-2.6) 12/11/17 05:40 Urine Creatinine 79 mg/dL 12/10/17 15:45 Urine Sodium 72.1 mEq/L 12/10/17 15:45 - VTE Documentation of Mechanical Device: Intermittent pneumatic compression device Consult Discharge Plan - Plan Instructions: BiPAP, Skin Carver (GEN) Referrals: Wale Lam DO [Primary Care Provider] - (PATIENT IS GOING TO ECF NO PCP APPOINTMENT NEEDED)
--- NOTE | 2017-12-22 14:40 | Nephrology Progress Note ---
Date of Encounter: 12/22/17 Time of Encounter: 09:00 - Assessment and Plan (1) Acute kidney injury superimposed on chronic kidney disease Current Visit: Yes Status: Acute Acute kidney injury, likely multifactorial etiology but acutely worsened Suspect ATN is most likely source of worsening renal failure at this time Serum creatinine has been rising each day, 4.34 today. GFR 15 Retroperitoneal ultrasound was negative for acute findings Urine output has not significantly changed, remains relatively strong The patient does have changing hemodynamics with an acute drop in bicarbonate Additionally, the patient's potassium has been increasingly fluctuant Suspect that this patient is likely going to require acute hemodialysis either today or tomorrow. spoke with patient's family and she agreed. Plan -We will transition from lactated Ringer's to half-normal saline with 75 mEq of bicarbonate -Agree with checking DINA, ANCA, RF -Await results of dermatology consult, skin biopsy for vasculitis findings -Avoid nephrotoxic agents (2) Dyspnea and respiratory abnormality Current Visit: Yes Status: Acute (3) Anemia Current Visit: No Status: Acute Qualifiers: Anemia type: unspecified type Qualified Code(s): D64.9 - Anemia, unspecified (4) UTI (urinary tract infection) Current Visit: Yes Status: Resolved Qualifiers: Urinary tract infection type: site unspecified Hematuria presence: without hematuria Qualified Code(s): N39.0 - Urinary tract infection, site not specified Subjective Principal diagnosis: NSTEMI Interval history: The patient seen and examined at bedside. He is accompanied by his who is also at bedside. He is no acute complaints from overnight. He apparently did sleep well and has not had any issues with confusion or encephalopathy. says that he had good urine output. Objective - Vital Signs Vital signs: Vital Signs Temp Pulse Resp BP Pulse Ox 12/22/17 12:04 98.7 F 105 16 129/52 92 12/22/17 11:14 98.1 F 66 15 128/76 95 12/22/17 08:00 99.6 F 92 16 124/58 92 12/22/17 03:28 99.5 F 110 17 97/63 95 12/21/17 23:30 99.1 F 112 18 101/64 93 12/21/17 21:30 92 12/21/17 17:25 99.4 F 116 18 104/65 96 Intake and Output 12/21/17 12/22/17 12/22/17 23:59 07:59 15:59 Other: Weight 102.6 kg Blood Glucose* 118 229 - General Appearance Exam: Gen: Vitals noted. No acute distress. Patient is lethargic but does awaken with verbal stimuli HEENT: Normocephalic, atraumatic. Neck: Supple. No adenopathy. Cardiac: RRR but, no murmur, +S1/S2 Pulmonary: CTA bilaterally, no wheezes, rales or rhonchi, equal chest expansion Abdomen: soft, nontender, no guarding Integumentary: There is a macular rash which is most apparent on the patient's face, however does appear to traverse down the patient's trunk and is apparently on his extremities as well. There is no purulent substance from this Extremities: no BLE edema, nontender calf, no cyanosis or clubbing Neuro: Patient is alert and oriented 3, responds appropriately to commands Psych: Appropriate mood and behavior - Lab 12/22/17 03:23 12/22/17 03:23 Most recent lab results Calcium 8.2 mg/dL (8.6-10.3) L 12/22/17 03:23 Phosphorus 2.1 mg/dL (2.7-4.5) L 12/10/17 00:46 Magnesium 1.9 mg/dL (1.6-2.6) 12/11/17 05:40 Urine Creatinine 79 mg/dL 12/10/17 15:45 Urine Sodium 72.1 mEq/L 12/10/17 15:45 - VTE Documentation of Mechanical Device: Intermittent pneumatic compression device Consult Discharge Plan - Plan Instructions: BiPAP, Over Short And Damage Clerk (GEN) Referrals: Wale Lam DO [Primary Care Provider] - (PATIENT IS GOING TO [facility] NO PCP APPOINTMENT NEEDED)
[2017-12-22 17:40] LABS: Bilirubin,Urine Negative (Negative); Blood,Urine Moderate (Negative); Clarity,Urine Turbid (Clear); Color,Urine Yellow (Yellow); Glucose,Urine (UA) Normal (Normal); Ketones,Urine Trace mg/dL (Negative); Leukocyte Esterase,Urine Large (Negative); Nitrite,Urine Negative (Negative); PH,Urine 7.5 pH Units (5.0-8.0); Protein,Urine >=300 mg/dL (Neg-Trace); Specific Gravity,Urine 1.012 (1.010-1.025); Urobilinogen,Urine Normal (Normal)
[2017-12-22 17:41] LABS: Bacteria,Urine None Seen per hpf (None-Few); Squamous Epithelial Cell,Urine Many per lpf (None-Few); WBC,Urine TNTC per hpf (0-3)
[2017-12-23 04:00] LABS: Basophils % 0.4 %; Eosinophils # 0.4 K/mcL (0.0-0.6); Eosinophils % 3.7 %; Hematocrit 26.6 % (35.3-44.9); Hemoglobin 7.9 g/dL (11.5-15.4); Immature Granulocytes % 0.6 % (0-4); Lymphocytes # 1.3 K/mcL (0.6-4.6); Lymphocytes % 13.8 %; Mean Corpuscular HGB Conc 29.7 g/dL (31.6-35.5); Mean Corpuscular Hemoglobin 28.2 pg (28.0-33.3); Mean Platelet Volume 10.1 fL (9.4-12.4); Monocytes # 1.1 K/mcL (0.0-1.3); Neutrophils # 6.9 K/mcL (1.6-8.9); Platelet Count 270 K/mcL (140-400); Red Cell Distribution Width 18.5 % (11.5-14.5); Segmented Neutrophils % 70.5 %
[2017-12-23 04:18] LABS: Albumin 2.5 g/dL (3.5-5.7); Albumin/Globulin Ratio 0.7 (1.1-2.2); Bilirubin,Total 0.5 mg/dL (0.3-1.0); Calcium 8.4 mg/dL (8.6-10.3); Globulin 3.7 g/dL (2.4-3.5); Potassium 3.8 mEq/L (3.5-5.1); Total Protein 6.2 g/dL (6.4-8.9)
[2017-12-23] MEDS: *HR* Heparin 5,000 UNIT/ML VIAL SQ SCH ×2 (04:50→16:52)
[2017-12-23] MEDS ORDERED: 0.9 % Sodium Chloride 250 ML IVC PRN (07:52)
[2017-12-23] MEDS ORDERED: 0.9 % Sodium Chloride 1,000 ML ONE (08:21)
[2017-12-23] MEDS: Insulin LISPRO 300 UNITS/3 ML VIAL SQ SCH ×4 (09:15→21:54)
--- NOTE | 2017-12-23 09:37 | Internal Med Progress Note ---
<Anatoliy Ramirez S - Last Filed: 12/23/17 10:55> Hospitalist Progress Note - Encounter Date of Encounter: 12/23/17 Time of Encounter: 09:34 - Subjective Interval History: Pt is seen at the bedside. She was admitted on Tuesday (12/09/17) for AMS from her [facility]. She was discharged the day before after being tx for sepsis 2/2 UTI and had to be intubated for acute respiratory failure. Pt later developed DVT and was put on anicoag, which was d/c'd secondary to hematuria. She was sent back and found to have an NSTEMI with troponin peak at 2.16 , UTI and TENISHA with CKD 3 The patient mentation is slightly better today. She is oriented to self, time and place today - She denies pain, CP, SOB , N/V/D Nurses report no overnight events. Pt denies active chest pain, SOB, N/V/D. - denies fevers/chills - has no acute complaints or concerns - pt to go for HD today - Exam Vitals: Temp Pulse Resp BP Pulse Ox 98.4 F 65 19 152/70 89 12/23/17 07:47 12/23/17 07:47 12/23/17 07:47 12/23/17 07:47 12/23/17 07:47 Exam: Constitutional: Alert, in no acute distress , disheveled HEENT: central line right side of neck, Normocephalic, atraumatic Heart: Normal, regular rate and rhythm, no murmurs Lungs: Clear to auscultation, no wheezes, rales, or rhonchi Abdomen: Soft, nondistended, nontender, obese Extremities: multiple toe amputations bilaterally, + 2 pitting edema with redness present on anterior aspect of shins, No clubbing, Skin: Skin warm and dry, no lesions, no rashes, no jaundice Neurologic: Cooperative with exam, somnolent - Assessment and Plan (1) Sepsis Current Visit: Yes Status: Resolved Assessment and Plan: Infectious cause: pneumonia and UTI. Currently doesn't meet sepsis criteria HR 65, RR 19 - WBC count 12/21 - 12.2 ---> increased to 16.5 (12/22) ---> today WBC count has resolved, it is 9.7 - no temperatures overnight -Blood culture 1/2 grew s. epidermidis, most likely contaminate. -Repeat BC (12/12) no growth -Urine cx shonna albicans UA showed TNTC WBC, large leukocyte esterase, negative nitrites, (+) squamous cells -most likely 2/2 chronic colonization, will not start abx -PVR <10mL CXR (12/22) showed cardiomegal with vascular congestion Plan: - cefepime, diflucan and flagyl d/c as per ID on 12/18 - ID consulted, signed off 12/19 - currently hemodynamically stable, pt has hx of HF, will hold off on fluids at this time - blood cx pending - urine cx ordered - cbc in the AM (2) Acute kidney injury superimposed on chronic kidney disease Current Visit: Yes Status: Acute Assessment and Plan: - Creatinine improved to 3.61 ---> 2.50 after HD x2 sessions. On Tuesday increased to 3.41, no HD yesterday - today GFR = 12, baseline 20. -Creatinine 12/19 = 4.08, increased from 3.41 -Creatinine (12/20) is 3.03 ---> creatinine increased to 4.37 (12/21) ---> 3.07 () ---> 4.49 (12/23) - last HD session Tuesday , will have HD today -Baseline creatinine < 3. Retroperitoneal US was unremarkable. -Nephrology following -temporary dialysis cath in place by IR Plan: - nephrology consulted, the pt had HD Tuesday - currently no fluids running - avoid nephrotoxins - nephro started Darbeopoetin, can d/c on discharge as per nephrology - pt will need perm cath for HD as per nephro. Spoke with IR and they said she needs to be off ASA/Plavix for 5 days. Both rx have been held. She is day 4 no asa/plavix - cant be completed today because of sepsis/leukocytosis work up, which was negative and pt WBC is back to 9.7 - will try for permacath placement on Tuesday - NPO midnight Tuesday, IR consult - spoke with SW about d/c today - the pt doesn't want to go back to [facility]. SW to speak with pt about options. - Currently has a bed held at [facility] pending discharge. - plunkett catheter d/c yesterday - continue to monitor renal fxn - dispo: permacath placement as per IR once pt has been off ASA/plavix for 5 days total (3) Hypertension Current Visit: No Status: Chronic Assessment and Plan: BP 152/70 today - adequate control - Restart home med: amlodipine 10mg (4) Type 2 diabetes mellitus Current Visit: No Status: Chronic Assessment and Plan: Glucoses well controlled on Levemir 10 units BID -glucose this AM 108 Plan: - continue ISS to high dose - 10 units of Levemir BID (5) Chronic systolic heart failure Current Visit: No Status: Chronic Assessment and Plan: Last ECHO was in 2016, LVEF at that time was 30%,Not in acute exacerbation Plan: -diuretics held 2/2 TENISHA; nephro gave a 1x dose of IV lasix (12/14/17) -strict I&O's -cardiac/diabetic diet (6) Pneumonia Current Visit: Yes Status: Ruled-out Assessment and Plan: CXR/CT was concerning for infiltrates on B/L basal regions, possible aspiration pneumonia. -speech assessment not concerning for aspiration -repeat CXR 12/23 showed pulmonary edema, no acute cardiopulm process Plan: -completed abx as per ID on 12/18 - d/c cefepime and flagyl - diet: thin liquids and advanced soft texture (7) UTI (urinary tract infection) Current Visit: Yes Status: Resolved Assessment and Plan: Recurrent UTIs, -Urine culture grew shonna. - Urology consulted and stated most likely chronically colonized. - Stents are placed, and can be changed every 3 months, plunkett catheter should bet changed every 3-4 weeks. - Due to patient going home with plunkett will stop oxybutynin Repeat UA (12/22) showed TNTC WBC, (+) leukocyte esterase and (+) squamous cells - most likely a contaminant , will not initiate tx at this time Plan: - abx and antifungals d/c as per ID yesterday - stop oxybutynin - urine cx pending (8) NSTEMI (non-ST elevated myocardial infarction) Current Visit: Yes Status: Acute Assessment and Plan: Elevated troponin: max 2.67, last troponin 0.86. -most likely a type 2 [place] 2/2 demand ischemia -denies active chest pain -has h/o CAD, s/p CABG -TTE shows LVEF 30%. Global and segmental LV systolic dysfunction. Mildly dilated left ventricle. Atypical septal motion consistent with post-operative status. Mild-moderate mitral regurgitation. Mild tricuspid regurgitation. Plan: -Cardiology consulted, signed off and recommended continued medical management - on ASA, BB, statin. Restarted plavix (12/13/17). -currently ASA/plavix held so IR can place permacath - d/c heparin drip 12/12/17. (9) Catatonia Current Visit: Yes Status: Resolved Assessment and Plan: Unsure of cause. Began following present illness, thought to be due to psychiatric illness. Worsened on Lorazepam but improved with memantine and NMDA antagonist. Plan: - memantine 5mg BID ---> increased to 5mg in AM PO and 10 mg at night PO daily - psych consulted, after 1-2 days, can increase memantine 5mg AM and 10mg PM, after 3 days increase to 10mg BID - increase memantine 10mg PO BID (12/23) - lorazepam d/c (10) Shonna infection Current Visit: Yes Status: Acute Assessment and Plan: urine culture: Candidda albicans (12/10). Pt was recently admitted for hematuria/ sepsis 2/2 UTI and was tx with Vanc and Cefepime, as per ID has had shonna in the past in urine. Also shonna in mouth and under skin folds. Plan: - ID consulted, Continue diflucan through 12/18. Nystatin swish and spit and topical - urology consulted for recurrent UTIs, plan as above (11) Chronic anemia Current Visit: No Status: Chronic Assessment and Plan: Stable. Most likely 2/2 to nutritional deficiency. Iron 36, Iron % sat 20, transferrin 130 Plan: continue home ferrous sulfate (12) Atrial flutter with rapid ventricular response Current Visit: Yes Status: Resolved Assessment and Plan: Currently rate controlled. Atrial flutter with RVR seen on biventriculr ICD. -New diagnosis, since 12/09/17. -Currently resolved, HR wnl. Plan: - continue increased home med toprol XL to 50 mg (home dose). - avoiding cardizem in the setting of known CMP EF 30%. - cardiology talked to family and have concluded anticoagulation risks out weight benefits - hold plavix/asa for permacath placement, most likely tuesday (13) Obesity Current Visit: No Status: Chronic Assessment and Plan: BMI 37.7 -lifestyle modification DVT Prophylaxis: SQ Heparin - Time Spent with Patient Total time spent is greater than 50% in coordination of care (as documented) at patient's floor/unit and/or counseling patient: less than 15 minutes Plan of Care Discussed with: patient Internal Medicine: Result - Labs CBC & Chem 7: 12/23/17 03:40 12/23/17 03:40 Labs: Short CBC 12/23/17 Range/Units 03:40 WBC 9.7 (4.3-11.1) K/mcL Hgb 7.9 L (11.5-15.4) g/dL Hct 26.6 L (35.3-44.9) % Plt Count 270 (140-400) K/mcL Neutrophils # 6.9 (1.6-8.9) K/mcL BMP 12/23/17 03:40 Sodium 140 Potassium 3.8 Chloride 101 Carbon Dioxide 31 H BUN 22 Creatinine 4.49 H Glucose 90 Calcium 8.4 L Liver Function 12/23/17 Range/Units 03:40 Total Bilirubin 0.5 (0.3-1.0) mg/dL AST 12 L (13-39) Units/L ALT 7 (7-52) Units/L Alkaline Phosphatase 89 (34-104) Units/L Albumin 2.5 L (3.5-5.7) g/dL Urine 12/22/17 Range/Units 15:15 Urine Color Yellow (Yellow) Urine Clarity Turbid A (Clear) Urine pH 7.5 (5.0-8.0) pH Units Ur Specific [place] 1.012 (1.010-1.025) Urine Protein >=300 H (Neg-Trace) mg/dL Urine Glucose (UA) Normal (Normal) mg/dL - ABG Interpretation ABG results: PT/INR, D-dimer PT 15.6 Seconds (9.4-12.1) H 12/10/17 02:55 - Impressions Impressions Chest X-Ray 12/22/17 11:07 IMPRESSION: Cardiomegaly with vascular congestion. D/ / 12/22/2017 14:49:54 Abdullahi Vides MD / vitor Interpreting Provider: Abdullahi Vides MD - VTE Documentation of Mechanical Device: Intermittent pneumatic compression device Consult Discharge Plan - Plan Instructions: BiPAP, Head Paper Tester (GEN) Referrals: Wale Lam DO [Primary Care Provider] - (PATIENT IS GOING TO ECF NO PCP APPOINTMENT NEEDED) <Wilfred Bunn - Last Filed: 12/23/17 16:34> Hospitalist Progress Note - Encounter Date of Encounter: 12/23/17 - Exam Vitals: Temp Pulse Resp BP Pulse Ox 99.3 F 115 18 102/67 96 12/23/17 16:15 12/23/17 16:15 12/23/17 16:15 12/23/17 16:15 12/23/17 16:15 - Assessment and Plan (1) Acute kidney injury superimposed on chronic kidney disease Current Visit: Yes Status: Acute (2) Hypertension Current Visit: No Status: Chronic (3) Type 2 diabetes mellitus Current Visit: No Status: Chronic (4) Chronic systolic heart failure Current Visit: No Status: Chronic (5) Pneumonia Current Visit: Yes Status: Ruled-out (6) Sepsis Current Visit: Yes Status: Resolved (7) UTI (urinary tract infection) Current Visit: Yes Status: Resolved (8) NSTEMI (non-ST elevated myocardial infarction) Current Visit: Yes Status: Acute (9) Catatonia Current Visit: Yes Status: Resolved (10) Shonna infection Current Visit: Yes Status: Acute (11) Chronic anemia Current Visit: No Status: Chronic (12) Atrial flutter with rapid ventricular response Current Visit: Yes Status: Resolved (13) Obesity Current Visit: No Status: Chronic - Time Spent with Patient Total time spent is greater than 50% in coordination of care (as documented) at patient's floor/unit and/or counseling patient: Internal Medicine: Result - Labs CBC & Chem 7: 12/23/17 03:40 12/23/17 03:40 Labs: Short CBC 12/23/17 Range/Units 03:40 WBC 9.7 (4.3-11.1) K/mcL Hgb 7.9 L (11.5-15.4) g/dL Hct 26.6 L (35.3-44.9) % Plt Count 270 (140-400) K/mcL Neutrophils # 6.9 (1.6-8.9) K/mcL BMP 12/23/17 03:40 Sodium 140 Potassium 3.8 Chloride 101 Carbon Dioxide 31 H BUN 22 Creatinine 4.49 H Glucose 90 Calcium 8.4 L Liver Function 12/23/17 Range/Units 03:40 Total Bilirubin 0.5 (0.3-1.0) mg/dL AST 12 L (13-39) Units/L ALT 7 (7-52) Units/L Alkaline Phosphatase 89 (34-104) Units/L Albumin 2.5 L (3.5-5.7) g/dL Urine 12/22/17 Range/Units 15:15 Urine Color Yellow (Yellow) Urine Clarity Turbid A (Clear) Urine pH 7.5 (5.0-8.0) pH Units Ur Specific [place] 1.012 (1.010-1.025) Urine Protein >=300 H (Neg-Trace) mg/dL Urine Glucose (UA) Normal (Normal) mg/dL - ABG Interpretation ABG results: PT/INR, D-dimer PT 15.6 Seconds (9.4-12.1) H 12/10/17 02:55 - Impressions Impressions Chest X-Ray 12/22/17 11:07 IMPRESSION: Cardiomegaly with vascular congestion. D/ / 12/22/2017 14:49:54 Abdullahi Vides MD / vitor Interpreting Provider: Abdullahi Vdies MD - Attending Attestation I examined this patient and my medical decision-making was reviewed with the Resident Physician Dr. Ramirez. I agree with the documented findings, disposition and treatment plan as described except to the extent set forth below. Ms. Bentley is a 72 year old female with PMH of T2DM, HTN, HDL, catatonia, chronic systolic heart failure, CKD-3, recurrent UTI, and chronic psychiatry problems who had an extensive hospital stay here during her last hospitalization. Pt was admitted with sepsis, due to URI later she developed shock, acute respiratroy failure, got intubated and she also happened to have DVT for which she was started on Anti coag. pt developed hematuria so anti coag got d/cd and placed IVC filter. Pt mentation was never improved, she was always non verbal and severe cataonic appearance. pt was evaluated by psych who recommend ECT treatment. pt was d/c to [facility] on 12/08/17. Now she was sent back to ER on with worsening AMS. She happened to have NSTEMI with Trop @ 2.16, UTI and TENISHA on CKD-3 with cr @ 3.48. She was admitted in the hospital and started her empirical abx Cefepime. She is resting comfortably. Today she is more alert, awake and following all the commands.. Communicating verbally. Looks depressed, denied any suicidal ideation. No events over night Gen: A, A, O to self Chest: Diminished BS b/l , No wheezing Heart: S1S2+ Tachy, No murmurs 1. Sepsis with UTI h/o Shonna in the past Finished empirical abx Cefepime + Diflucan on 12/18/17 WBC trended down to normal Reviewed UA - no bacteria..Sent for Urine Cx No need of abx Will f/u on blood cx too 2. Acute PNA - aspiration Finished Cefepime + Flagyl 3. NSTEMI finished 48hrs anti coag cont ASA on Metoprolol 4. 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: with longshore equipment operator use Diabetes mellitus complication status: with kidney complications Diabetes mellitus complication detail: with chronic kidney disease Chronic kidney disease stage: stage 4 (severe) Qualified Code(s): E11.22 - Type 2 diabetes mellitus with diabetic chronic kidney disease; N18.4 - Chronic kidney disease, stage 4 (severe ); Z79.4 - intermediate (current) use of insulin (6) Pneumonia Qualifiers: Pneumonia type: due to unspecified organism Laterality: right Lung location : lower lobe of lung Qualified Code(s): J18.1 - Lobar pneumonia, unspecified organism (7) UTI (urinary tract infection) Qualifiers: Urinary tract infection type: site unspecified Hematuria presence: without hematuria Qualified Code(s): N39.0 - Urinary tract infection, site not specified (13) Obesity Qualifiers: Obesity type: due to excess calories Obesity classification: adult class 3 ( BMI >= 40) Serious obesity comorbidity presence: with serious comorbidity Body mass index: BMI 40.0-44.9 Qualified Code(s): E66.01 - Morbid (severe) obesity due to excess calories; Z68.41 - Body mass index (BMI) 40.0-44.9, adult <Wilfred Bunn - Last Filed: 12/23/17 16:34> (2) Hypertension Qualifiers: Hypertension type: essential hypertension Qualified Code(s): I10 - Essential (primary) hypertension (3) Type 2 diabetes mellitus Qualifiers: Diabetes mellitus longshore equipment 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 insulin use: with senior care use Diabetes mellitus complication status: with kidney complications Diabetes mellitus complication detail: with chronic kidney disease Chronic kidney disease stage: stage 4 (severe) Qualified Code(s): E11.22 - Type 2 diabetes mellitus with diabetic chronic kidney disease; N18.4 - Chronic kidney disease, stage 4 (severe ); Z79.4 - intermediate (current) use of insulin (5) Pneumonia Qualifiers: Pneumonia type: due to unspecified organism Laterality: right Lung location : lower lobe of lung Qualified Code(s): J18.1 - Lobar pneumonia, unspecified organism (6) Sepsis Qualifiers: Sepsis type: sepsis due to unspecified organism Qualified Code(s): A41.9 - Sepsis, unspecified organism (7) UTI (urinary tract infection) Qualifiers: Urinary tract infection type: site unspecified Hematuria presence: without hematuria Qualified Code(s): N39.0 - Urinary tract infection, site not specified (13) Obesity Qualifiers: Obesity type: due to excess calories Obesity classification: adult class 3 ( BMI >= 40) Serious obesity comorbidity presence: with serious comorbidity Body mass index: BMI 40.0-44.9 Qualified Code(s): E66.01 - Morbid (severe) obesity due to excess calories; Z68.41 - Body mass index (BMI) 40.0-44.9, adult
[2017-12-23] MEDS ORDERED: *HR* Heparin 10,000 UNIT/10 ML VIAL IV PRN (09:44)
[2017-12-23] MEDS: Nystatin SUSP 5 ML UD.LIQ PO SCH ×4 (10:41→21:57)
[2017-12-23] MEDS: Ascorbic Acid 500 MG TABLET PO SCH ×2 (10:42→21:56)
[2017-12-23] MEDS: amLODIPine 5 MG TABLET PO SCH (10:42)
[2017-12-23] MEDS: Insulin DETEMIR 100 UNIT/ML X5UNITS SQ SCH ×2 (10:44→22:10)
[2017-12-23] MEDS: Nystatin POWDER 30 GM BOTTLE TP SCH ×2 (14:01→22:03)
[2017-12-23] MEDS: Metoprolol XL (24 HR) Succ 25 MG TAB.ER.24H PO SCH (14:01)
[2017-12-23] MEDS: MICONAZOLE NITRATE 57 GM TUBE TP SCH ×2 (14:01→22:03)
[2017-12-23] MEDS ORDERED: Metoprolol XL (24 HR) Succ 25 MG TAB.ER.24H PO ONE (16:28)
--- NOTE | 2017-12-23 16:44 | Nephrology Progress Note ---
Date of Encounter: 12/23/17 Time of Encounter: 08:40 - Assessment and Plan (1) Acute kidney injury superimposed on chronic kidney disease Current Visit: Yes Status: Acute Acute kidney injury on CKD stage IV, baseline GFR in the 20 Patient remains hemodialysis dependent at this time, scheduled MWF Continue holding aspirin and Plavix at this time for placement of permacath on Tuesday Patient is clinically stable today although she is scheduled for hemodialysis. Plan -Scheduled for hemodialysis today -Social work has been consulted and is planning for chair time at time of discharge. Tentatively scheduled for TTS -Hold aspirin and Plavix to plan for insertion of PermCath prior to discharge. IR requires 5 days without medication prior to insertion. Plan for permanent catheter on Tuesday -Patient can likely be discharged following hemodialysis on Tuesday (2) Dyspnea and respiratory abnormality Current Visit: Yes Status: Acute Improved substantially compared to time of admission We will continue to conservatively remove fluid as able during hemodialysis (3) Anemia Current Visit: No Status: Acute Significant anemia, hemoglobin 7.9 Patient was started on Aranesp earlier this week and is responding well This medication we stopped at time of discharge Qualifiers: Anemia type: unspecified type Qualified Code(s): D64.9 - Anemia, unspecified (4) UTI (urinary tract infection) Current Visit: Yes Status: Resolved Urine demonstrates Yolanda species on culture Urology has been consulted, suspect chronic colonization Management per primary team Qualifiers: Urinary tract infection type: site unspecified Hematuria presence: without hematuria Qualified Code(s): N39.0 - Urinary tract infection, site not specified Subjective Principal diagnosis: NSTEMI Interval history: Patient is resting in bed at time of examination. She is accompanied by her who is at bedside. No acute complaints this morning. Objective - Vital Signs Vital signs: Vital Signs Temp Pulse Resp BP Pulse Ox 12/23/17 16:15 99.3 F 115 18 102/67 96 12/23/17 12:40 98.8 F 16 138/70 12/23/17 12:20 131/91 12/23/17 12:05 118/70 12/23/17 11:50 115/76 12/23/17 11:35 118/58 12/23/17 11:20 131/80 12/23/17 11:05 119/72 12/23/17 10:50 126/70 12/23/17 10:35 125/71 12/23/17 10:20 132/71 12/23/17 10:05 130/64 12/23/17 09:50 131/73 12/23/17 09:35 138/78 12/23/17 09:20 98.4 F 17 127/67 12/23/17 07:47 98.4 F 65 19 152/70 89 12/23/17 04:58 97.8 F 116 19 116/72 94 12/23/17 01:26 98.7 F 108 19 127/79 96 12/22/17 20:13 99.6 F 115 21 121/72 95 Intake and Output 12/23/17 12/23/17 12/23/17 07:59 15:59 23:59 Intake Total 600 / 600 Output Total 2600 / 2600 Balance -1999 / Intake: Oral 0 / 0 Intake, Rinseback and Flushes 600 / 600 Output: Urine 0 / 0 Total Dialysis (HD) Output 2600 / 2600 Other: Meal Breakfast Percent of Meal Consumed 0% # Urine Diapers 1 Weight 96 kg Blood Glucose* 102 98 107 Hemodialysis Net Fluid Removed 2000 (mL) Patient Weight 12/23/17 23:59 Weight 96 kg - General Appearance Exam: General appearance: Present: chronically ill, fatigue EENT: Present: ATNC, mucous membranes dry Neck: Present: no JVD, supple. Temporary dialysis catheter in right IJ with no surrounding erythema or exudates Respiratory: Present: clear (ant bilat), no wheezes noted Cardiology: Present: edema (trace LE edema bilat), normal S1, normal S2 Gastrointestinal: Present: no tenderness, no guarding Integumentary: Present: warm and dry. Decubitus ulcers on b/l heels Neurologic: Present: no focal deficit, patient does not speak Musculoskeletal: Present: no deformities Psychiatric: Present: depressed. Still does not talk much. - Lab 12/23/17 03:40 12/23/17 03:40 Most recent lab results Calcium 8.4 mg/dL (8.6-10.3) L 12/23/17 03:40 Phosphorus 2.1 mg/dL (2.7-4.5) L 12/10/17 00:46 Magnesium 1.9 mg/dL (1.6-2.6) 12/11/17 05:40 Urine Creatinine 79 mg/dL 12/10/17 15:45 Urine Sodium 72.1 mEq/L 12/10/17 15:45 - VTE Documentation of Mechanical Device: Intermittent pneumatic compression device Consult Discharge Plan - Plan Instructions: BiPAP, Deaf/Hard Of Hearing Specialist (GEN) Referrals: Wale Lam DO [Primary Care Provider] - (PATIENT IS GOING TO ECF NO PCP APPOINTMENT NEEDED)
[2017-12-24 05:15] LABS: Basophils % 0.4 %; Eosinophils # 0.4 K/mcL (0.0-0.6); Eosinophils % 4.3 %; Hematocrit 25.7 % (35.3-44.9); Hemoglobin 7.5 g/dL (11.5-15.4); Immature Granulocytes % 0.4 % (0-4); Lymphocytes # 1.4 K/mcL (0.6-4.6); Lymphocytes % 15.4 %; Mean Corpuscular HGB Conc 29.2 g/dL (31.6-35.5); Mean Corpuscular Hemoglobin 27.5 pg (28.0-33.3); Mean Corpuscular Volume 94.1 fL (83.0-100.0); Mean Platelet Volume 9.9 fL (9.4-12.4); Monocytes # 1.3 K/mcL (0.0-1.3); Monocytes % 14.2 %; Neutrophils # 5.8 K/mcL (1.6-8.9); Platelet Count 289 K/mcL (140-400); Red Blood Count 2.73 M/mcL (3.82-4.97); Red Cell Distribution Width 18.2 % (11.5-14.5); Segmented Neutrophils % 65.3 %
[2017-12-24 05:31] LABS: Calcium 8.4 mg/dL (8.6-10.3); Potassium 3.8 mEq/L (3.5-5.1)
[2017-12-24] MEDS: *HR* Heparin 5,000 UNIT/ML VIAL SQ SCH ×2 (06:48→17:11)
[2017-12-24] MEDS: Insulin LISPRO 300 UNITS/3 ML VIAL SQ SCH ×4 (08:57→22:16)
[2017-12-24] MEDS: Ascorbic Acid 500 MG TABLET PO SCH ×2 (08:58→22:25)
[2017-12-24] MEDS: Nystatin SUSP 5 ML UD.LIQ PO SCH ×4 (08:58→22:30)
[2017-12-24] MEDS: Metoprolol XL (24 HR) Succ 25 MG TAB.ER.24H PO SCH (08:59)
[2017-12-24] MEDS: amLODIPine 5 MG TABLET PO SCH (08:59)
[2017-12-24] MEDS: MICONAZOLE NITRATE 57 GM TUBE TP SCH ×2 (09:01→22:19)
[2017-12-24] MEDS: Nystatin POWDER 30 GM BOTTLE TP SCH ×2 (09:06→22:19)
[2017-12-24] MEDS: Insulin DETEMIR 100 UNIT/ML X5UNITS SQ SCH ×2 (09:09→22:30)
--- NOTE | 2017-12-24 09:48 | Internal Med Progress Note ---
Hospitalist Progress Note - Encounter Date of Encounter: 12/24/17 Time of Encounter: 09:54 - Subjective Interval History: Ms. Bentley is a 72 year old female with PMH of T2DM, HTN, HDL, catatonia, chronic systolic heart failure, CKD-3, recurrent UTI, and chronic psychiatry problems who had an extensive hospital stay here during her last hospitalization. Pt was admitted with sepsis, due to URI later she developed shock, acute respiratroy failure, got intubated and she also happened to have DVT for which she was started on Anti coag. pt developed hematuria so anti coag got d/cd and placed IVC filter. Pt mentation was never improved, she was always non verbal and severe cataonic apperance. pt was evaluated by psych who recommend ECT treatment. pt was d/c to ECF on 12/08/17. Now she was sent back to ER on with worsening AMS. She happened to have NSTEMI with Trop @ 2.16, UTI and TENISHA on CKD-3 with cr @ 3.48. She finished all her antibiotic course for UTI. Her NSTEMI mostly due to sepsis, cardiology recommend medical management. She developed ESRD started getting hemodialysis now. She is resting comfortably. Today she is more alert, awake and following all the commands.. Communicating verbally. Looks depressed, denied any suicidal ideation. When I asked about home situation and safety at home , her response was " What difference does it make ? " - Exam Vitals: Temp Pulse Resp BP Pulse Ox 97.3 F L 85 18 109/65 97 12/24/17 07:25 12/24/17 07:25 12/24/17 07:25 12/24/17 07:25 12/24/17 07:25 Exam: Constitutional: Alert, in no acute distress , disheveled HEENT: central line right side of neck, Normocephalic, atraumatic Heart: Normal, regular rate and rhythm, no murmurs Lungs: diminished breath sounds, no wheezes, rales, or rhonchi Abdomen: Soft, nondistended, nontender, obese Extremities: multiple toe amputations bilaterally, No clubbing, Skin: Skin warm and dry, no lesions, no rashes, no jaundice Neurologic: Cooperative with exam, somnolent - Assessment and Plan (1) Sepsis Current Visit: Yes Status: Resolved Assessment and Plan: Infectious cause: pneumonia and UTI. Resolved remained afebrile repeat blood culture did not grow anything white count within normal limits no further workup needed (2) ESRD (end stage renal disease) on dialysis Current Visit: Yes Status: Acute Assessment and Plan: She developed ESR D currently getting hemodialysis through right IJ temporary cath will place a permanent HD On Tuesday by IR after aspirin and Plavix washout (3) Hypertension Current Visit: No Status: Chronic Assessment and Plan: Well controlled with home medications and current regimen (4) Type 2 diabetes mellitus Current Visit: No Status: Chronic Assessment and Plan: changed ISS to medium and cont 10 units of Levemir BID (5) Chronic systolic heart failure Current Visit: No Status: Chronic Assessment and Plan: Last ECHO was in 2016, LVEF at that time was 30%,Not in acute exacerbation Not in exacerbation continue current regimen (6) Pneumonia Current Visit: Yes Status: Ruled-out Assessment and Plan: CXR/CT was concerning for infiltrates on B/L basal regions, possible aspiration pneumonia. completed abx by 12/18 diet: thin liquids and advanced soft texture (7) UTI (urinary tract infection) Current Visit: Yes Status: Resolved Assessment and Plan: Recurrent UTIs, Urine culture grew shonna. Finished full course of treatment (8) NSTEMI (non-ST elevated myocardial infarction) Current Visit: Yes Status: Acute Assessment and Plan: Due to sepsis and demand ischemia continue aspirin and beta maggie no further workup needed (9) Catatonia Current Visit: Yes Status: Resolved Assessment and Plan: Patient still depressed... However seems to be more active and alert now concerning for home situation and safety.. Will talk to piece worker continue memantine 10mg PO BID (12/23) (10) Shonna infection Current Visit: Yes Status: Resolved (11) Chronic anemia Current Visit: No Status: Chronic Assessment and Plan: Due to ESRD stable now (12) Atrial flutter with rapid ventricular response Current Visit: Yes Status: Resolved Assessment and Plan: Currently rate controlled. Atrial flutter with RVR seen on biventriculr ICD. -New diagnosis, since 12/09/17. -Currently resolved, HR wnl. Plan: - continue increased home med toprol XL to 50 mg (home dose). - avoiding cardizem in the setting of known CMP EF 30%. - cardiology talked to family and have concluded anticoagulation risks out weight benefits - hold plavix/asa for permacath placement, most likely tuesday (13) Obesity Current Visit: No Status: Chronic Assessment and Plan: BMI 37.7 -lifestyle modification - Time Spent with Patient Total time spent is greater than 50% in coordination of care (as documented) at patient's floor/unit and/or counseling patient: Internal Medicine: Result - Labs CBC & Chem 7: 12/24/17 04:46 12/24/17 04:46 Labs: Short CBC 12/24/17 Range/Units 04:46 WBC 8.9 (4.3-11.1) K/mcL Hgb 7.5 L (11.5-15.4) g/dL Hct 25.7 L (35.3-44.9) % Plt Count 289 (140-400) K/mcL Neutrophils # 5.8 (1.6-8.9) K/mcL BMP 12/24/17 04:46 Sodium 141 Potassium 3.8 Chloride 100 Carbon Dioxide 32 H BUN 14 Creatinine 3.48 H Glucose 63 L Calcium 8.4 L - ABG Interpretation ABG results: PT/INR, D-dimer PT 15.6 Seconds (9.4-12.1) H 12/10/17 02:55 - Impressions Impressions Chest X-Ray 12/22/17 11:07 IMPRESSION: Cardiomegaly with vascular congestion. D/ / 12/22/2017 14:49:54 Abdullahi Vides MD / vitor Interpreting Provider: Abdullahi Vides MD - VTE Documentation of Mechanical Device: Intermittent pneumatic compression device Consult Discharge Plan - Plan Instructions: BiPAP, Rail Tractor Operator (GEN) Referrals: Wale Lam DO [Primary Care Provider] - (PATIENT IS GOING TO [facility] NO PCP APPOINTMENT NEEDED) (1) Sepsis Qualifiers: Sepsis type: sepsis due to unspecified organism Qualified Code(s): A41.9 - Sepsis, unspecified organism (3) Hypertension Qualifiers: Hypertension type: essential hypertension Qualified Code(s): I10 - Essential (primary) hypertension (4) Type 2 diabetes mellitus Qualifiers: Diabetes mellitus manager long term care insulin use: with manager long term care use Diabetes mellitus complication status: with kidney complications Diabetes mellitus complication detail: with chronic kidney disease Chronic kidney disease stage: stage 4 (severe) Qualified Code(s): E11.22 - Type 2 diabetes mellitus with diabetic chronic kidney disease; N18.4 - Chronic kidney disease, stage 4 (severe ); Z79.4 - skilled nursing (current) use of insulin (6) Pneumonia Qualifiers: Pneumonia type: due to unspecified organism Laterality: right Lung location : lower lobe of lung Qualified Code(s): J18.1 - Lobar pneumonia, unspecified organism (7) UTI (urinary tract infection) Qualifiers: Urinary tract infection type: site unspecified Hematuria presence: without hematuria Qualified Code(s): N39.0 - Urinary tract infection, site not specified (13) Obesity Qualifiers: Obesity type: due to excess calories Obesity classification: adult class 3 ( BMI >= 40) Serious obesity comorbidity presence: with serious comorbidity Body mass index: BMI 40.0-44.9 Qualified Code(s): E66.01 - Morbid (severe) obesity due to excess calories; Z68.41 - Body mass index (BMI) 40.0-44.9, adult
--- NOTE | 2017-12-24 12:31 | Event Note ---
Date of Encounter: 12/24/17 Time of Encounter: 12:30 Nephrology Chart Review The pt had completed HD yesterday and biochemically stable today. Will plan for HD next on Tuesday and with plans for NPO on Tuesday night with a Permacath in the AM. I've placed the IR consult order and dated it for Tuesday. Thank you.
[2017-12-25] MEDS: *HR* Heparin 5,000 UNIT/ML VIAL SQ SCH ×2 (06:17→17:39)
[2017-12-25] MEDS: Insulin LISPRO 300 UNITS/3 ML VIAL SQ SCH ×4 (08:52→21:59)
[2017-12-25] MEDS: amLODIPine 5 MG TABLET PO SCH (08:53)
[2017-12-25] MEDS: Ascorbic Acid 500 MG TABLET PO SCH ×2 (08:54→22:02)
[2017-12-25] MEDS: Metoprolol XL (24 HR) Succ 25 MG TAB.ER.24H PO SCH (08:54)
[2017-12-25] MEDS: Nystatin SUSP 5 ML UD.LIQ PO SCH ×4 (08:54→22:02)
[2017-12-25] MEDS: Nystatin POWDER 30 GM BOTTLE TP SCH ×2 (09:00→22:00)
[2017-12-25] MEDS: MICONAZOLE NITRATE 57 GM TUBE TP SCH ×2 (09:00→22:00)
[2017-12-25] MEDS: Insulin DETEMIR 100 UNIT/ML X5UNITS SQ SCH ×2 (09:04→22:03)
[2017-12-25 09:14] LABS: Basophils % 0.3 %; Eosinophils # 0.3 K/mcL (0.0-0.6); Eosinophils % 3.3 %; Hematocrit 28.2 % (35.3-44.9); Hemoglobin 8.6 g/dL (11.5-15.4); Immature Granulocytes % 0.6 % (0-4); Lymphocytes % 11.4 %; Mean Corpuscular HGB Conc 30.5 g/dL (31.6-35.5); Mean Corpuscular Hemoglobin 28.6 pg (28.0-33.3); Mean Corpuscular Volume 93.7 fL (83.0-100.0); Mean Platelet Volume 9.5 fL (9.4-12.4); Monocytes # 1.3 K/mcL (0.0-1.3); Monocytes % 14.5 %; Neutrophils # 6.1 K/mcL (1.6-8.9); Platelet Count 300 K/mcL (140-400); Red Blood Count 3.01 M/mcL (3.82-4.97); Red Cell Distribution Width 17.8 % (11.5-14.5); Segmented Neutrophils % 69.9 %
--- NOTE | 2017-12-25 09:39 | Internal Med Progress Note ---
Hospitalist Progress Note - Encounter Date of Encounter: 12/25/17 Time of Encounter: 08:30 - Subjective Interval History: Ms. Bentley is a 72 year old female with PMH of T2DM, HTN, HDL, catatonia, chronic systolic heart failure, CKD-3, recurrent UTI, and chronic psychiatry problems who had an extensive hospital stay here during her last hospitalization. Pt was admitted with sepsis, due to URI later she developed shock, acute respiratroy failure, got intubated and she also happened to have DVT for which she was started on Anti coag. pt developed hematuria so anti coag got d/cd and placed IVC filter. Pt mentation was never improved, she was always non verbal and severe cataonic appearance. pt was evaluated by psych who recommend ECT treatment. pt was d/c to ECF on 12/08/17. Now she was sent back to ER on with worsening AMS. She happened to have NSTEMI with Trop @ 2.16, UTI and TENISHA on CKD-3 with cr @ 3.48. She finished all her antibiotic course for UTI. Her NSTEMI mostly due to sepsis, cardiology recommend medical management. She developed ESRD started getting hemodialysis now. She is resting comfortably. No events over night. Today she is more alert, awake and following all the commands.. Communicating verbally. Looks depressed, denied any suicidal ideation. When I asked about home situation and safety at home , her response was " What difference does it make ? " - Exam Vitals: Temp Pulse Resp BP Pulse Ox 99.3 F 84 18 131/71 95 12/25/17 06:59 12/25/17 06:59 12/25/17 06:59 12/25/17 06:59 12/25/17 06:59 Exam: Constitutional: Alert, in no acute distress , disheveled HEENT: central line right side of neck, Normocephalic, atraumatic Heart: Normal, regular rate and rhythm, no murmurs Lungs: diminished breath sounds, no wheezes, rales, or rhonchi Abdomen: Soft, non distended, non tender, obese Extremities: multiple toe amputations bilaterally, No clubbing, Skin: Skin warm and dry, no lesions, no rashes, no jaundice Neurologic: Cooperative with exam, somnolent - Assessment and Plan (1) Sepsis Current Visit: Yes Status: Resolved Assessment and Plan: Infectious cause: pneumonia and UTI. Resolved remained afebrile repeat blood culture did not grow anything white count within normal limits no further workup needed (2) ESRD (end stage renal disease) on dialysis Current Visit: Yes Status: Acute Assessment and Plan: She developed ESR D currently getting hemodialysis through right IJ temporary cath will place a permanent HD On Tuesday by IR after aspirin and Plavix washout (3) Hypertension Current Visit: No Status: Chronic Assessment and Plan: Well controlled with home medications and current regimen (4) Type 2 diabetes mellitus Current Visit: No Status: Chronic Assessment and Plan: changed ISS to medium and cont 10 units of Levemir BID (5) Chronic systolic heart failure Current Visit: No Status: Chronic Assessment and Plan: Last ECHO was in 2016, LVEF at that time was 30%,Not in acute exacerbation Not in exacerbation continue current regimen (6) Pneumonia Current Visit: Yes Status: Ruled-out Assessment and Plan: CXR/CT was concerning for infiltrates on B/L basal regions, possible aspiration pneumonia. completed abx by 12/18 diet: thin liquids and advanced soft texture (7) UTI (urinary tract infection) Current Visit: Yes Status: Resolved Assessment and Plan: Recurrent UTIs, Urine culture grew shonna. Finished full course of treatment (8) NSTEMI (non-ST elevated myocardial infarction) Current Visit: Yes Status: Acute Assessment and Plan: Due to sepsis and demand ischemia continue aspirin and beta maggie no further workup needed (9) Catatonia Current Visit: Yes Status: Resolved Assessment and Plan: Patient still depressed... However seems to be more active and alert now concerning for home situation and safety.. Will talk to social science research assistant continue memantine 10mg PO BID (12/23) (10) Shonna infection Current Visit: Yes Status: Resolved Assessment and Plan: urine culture: Candidda albicans (12/10). Pt was recently admitted for hematuria/ sepsis 2/2 UTI and was tx with Vanc and Cefepime, as per ID has had shonna in the past in urine. Also shonna in mouth and under skin folds. Plan: - ID consulted, Continue diflucan through 12/18. Nystatin swish and spit and topical - urology consulted for recurrent UTIs, plan as above (11) Chronic anemia Current Visit: No Status: Chronic Assessment and Plan: Due to ESRD stable now (12) Atrial flutter with rapid ventricular response Current Visit: Yes Status: Resolved Assessment and Plan: Currently rate controlled. Atrial flutter with RVR seen on biventriculr ICD. -New diagnosis, since 12/09/17. -Currently resolved, HR wnl. Plan: - continue increased home med toprol XL to 50 mg (home dose). - avoiding cardizem in the setting of known CMP EF 30%. - cardiology talked to family and have concluded anticoagulation risks out weight benefits - hold plavix/asa for permacath placement, most likely tuesday (13) Obesity Current Visit: No Status: Chronic Assessment and Plan: BMI 37.7 -lifestyle modification - Time Spent with Patient Total time spent is greater than 50% in coordination of care (as documented) at patient's floor/unit and/or counseling patient: Internal Medicine: Result - Labs CBC & Chem 7: 12/25/17 04:00 12/24/17 04:46 Labs: Short CBC 12/25/17 Range/Units 04:00 WBC 8.8 (4.3-11.1) K/mcL Hgb 8.6 L (11.5-15.4) g/dL Hct 28.2 L (35.3-44.9) % Plt Count 300 (140-400) K/mcL Neutrophils # 6.1 (1.6-8.9) K/mcL - ABG Interpretation ABG results: PT/INR, D-dimer PT 15.6 Seconds (9.4-12.1) H 12/10/17 02:55 - VTE Documentation of Mechanical Device: Intermittent pneumatic compression device Consult Discharge Plan - Plan Instructions: BiPAP, Seat Scooper Machine (GEN) Referrals: Wale Lam DO [Primary Care Provider] - (PATIENT IS GOING TO ECF NO PCP APPOINTMENT NEEDED) (1) Sepsis Qualifiers: Sepsis type: sepsis due to unspecified organism Qualified Code(s): A41.9 - Sepsis, unspecified organism (3) Hypertension Qualifiers: Hypertension type: essential hypertension Qualified Code(s): I10 - Essential (primary) hypertension (4) Type 2 diabetes mellitus Qualifiers: Diabetes mellitus terminal carman insulin use: with assisted use Diabetes mellitus complication status: with kidney complications Diabetes mellitus complication detail: with chronic kidney disease Chronic kidney disease stage: stage 4 (severe) Qualified Code(s): E11.22 - Type 2 diabetes mellitus with diabetic chronic kidney disease; N18.4 - Chronic kidney disease, stage 4 (severe ); Z79.4 - senior living (current) use of insulin (6) Pneumonia Qualifiers: Pneumonia type: due to unspecified organism Laterality: right Lung location : lower lobe of lung Qualified Code(s): J18.1 - Lobar pneumonia, unspecified organism (7) UTI (urinary tract infection) Qualifiers: Urinary tract infection type: site unspecified Hematuria presence: without hematuria Qualified Code(s): N39.0 - Urinary tract infection, site not specified (13) Obesity Qualifiers: Obesity type: due to excess calories Obesity classification: adult class 3 ( BMI >= 40) Serious obesity comorbidity presence: with serious comorbidity Body mass index: BMI 40.0-44.9 Qualified Code(s): E66.01 - Morbid (severe) obesity due to excess calories; Z68.41 - Body mass index (BMI) 40.0-44.9, adult
[2017-12-25 10:18] LABS: Calcium 8.6 mg/dL (8.6-10.3); Potassium 3.9 mEq/L (3.5-5.1)
[2017-12-26 06:43] LABS: Basophils % 0.4 %; Eosinophils # 0.3 K/mcL (0.0-0.6); Eosinophils % 3.4 %; Hematocrit 27.6 % (35.3-44.9); Hemoglobin 8.3 g/dL (11.5-15.4); Immature Granulocytes % 0.5 % (0-4); Lymphocytes # 1.3 K/mcL (0.6-4.6); Lymphocytes % 13.4 %; Mean Corpuscular HGB Conc 30.1 g/dL (31.6-35.5); Mean Corpuscular Hemoglobin 28.1 pg (28.0-33.3); Mean Corpuscular Volume 93.6 fL (83.0-100.0); Mean Platelet Volume 9.6 fL (9.4-12.4); Monocytes # 1.4 K/mcL (0.0-1.3); Monocytes % 13.7 %; Neutrophils # 6.8 K/mcL (1.6-8.9); Platelet Count 307 K/mcL (140-400); Red Blood Count 2.95 M/mcL (3.82-4.97); Red Cell Distribution Width 17.3 % (11.5-14.5); Segmented Neutrophils % 68.6 %
[2017-12-26] MEDS ORDERED: 0.9 % Sodium Chloride 250 ML IVC PRN (06:46)
[2017-12-26 07:00] LABS: INR 1.3; Prothrombin Time 14.5 Seconds (9.4-12.1)
[2017-12-26] MEDS ORDERED: 0.9 % Sodium Chloride 1,000 ML PRIME SCH (07:00)
[2017-12-26 07:05] LABS: Calcium 8.5 mg/dL (8.6-10.3)
[2017-12-26] MEDS: Insulin LISPRO 300 UNITS/3 ML VIAL SQ SCH ×4 (08:50→22:12)
[2017-12-26] MEDS: Nystatin SUSP 5 ML UD.LIQ PO SCH (09:06)
[2017-12-26] MEDS: amLODIPine 5 MG TABLET PO SCH (09:06)
[2017-12-26] MEDS: Ascorbic Acid 500 MG TABLET PO SCH ×2 (09:07→22:21)
[2017-12-26] MEDS: Metoprolol XL (24 HR) Succ 25 MG TAB.ER.24H PO SCH (09:07)
[2017-12-26] MEDS: Insulin DETEMIR 100 UNIT/ML X5UNITS SQ SCH ×2 (09:07→22:25)
[2017-12-26] MEDS: Nystatin POWDER 30 GM BOTTLE TP SCH ×2 (09:08→22:26)
[2017-12-26] MEDS: MICONAZOLE NITRATE 57 GM TUBE TP SCH ×2 (09:08→22:25)
[2017-12-26] MEDS ORDERED: Heparin 1,000 UNITS/500 mL 500 ML ONE (10:40)
[2017-12-26] MEDS ORDERED: *HR* Midazolam HCl 2 MG/2 ML VIAL IVP ONE (10:44)
[2017-12-26] MEDS ORDERED: *HR* FentaNYL (PF) 100 MCG/2 ML VIAL IVP ONE (10:44)
[2017-12-26] MEDS ORDERED: Clindamycin 600 MG/50 ML 600 MG/50 ML IV.SOLN IVPB ONE (10:47)
[2017-12-26] MEDS ORDERED: 0.9 % Sodium Chloride 500 ML ONE (10:55)
[2017-12-26] MEDS ORDERED: *HR* Heparin 5,000 UNIT/ML VIAL ONE ×2 (11:24→11:29)
--- NOTE | 2017-12-26 14:12 | IR Procedure Note ---
Date of procedure: 12/26/17 Consent Obtained: Verbal consent, Written consent Timeout: Correct patient and procedure verified, Correct site verified, Time out performed, Skin prep completed Local anesthetic: Lidocaine 1% Indications: ESRD Procedure Performed: permcath placement; temp HDC removal Was there an executive marketing assistant present: No Site/Technique: IZZY Estimated blood loss (cc): 2 Complications: None; Tolerated procedure well Post Procedure Treatment Plan: bedrest x 1 hour; catheter ok to use Specimen: none
--- NOTE | 2017-12-26 17:11 | Nephrology Progress Note ---
Date of Encounter: 12/26/17 Time of Encounter: 12:00 - Assessment and Plan (1) Acute kidney injury Status: Acute s/p permcath, HD planned today. Will discuss placement with primary team and psych; whether 1A or ECF No UOP documneted in the past 24hrs Lytes stable (2) Elevated troponin Status: Acute Per cardiology (3) Anemia Status: Chronic Hgb noted at 8.3, will monitor Transfusion parameters per primary team Qualifiers: Anemia type: unspecified type Qualified Code(s): D64.9 - Anemia, unspecified (4) CKD (chronic kidney disease) stage 4, GFR 15-29 ml/min Status: Chronic Baseline GFR in the 20s (5) UTI (urinary tract infection) Status: Resolved Per primary team s/p Urology and ID consults. Qualifiers: Urinary tract infection type: site unspecified Hematuria presence: without hematuria Qualified Code(s): N39.0 - Urinary tract infection, site not specified Subjective Principal diagnosis: NSTEMI Interval history: Pt seen and examined more awake today and communicative with me. Interim noted s/p permcath placement today Objective - Vital Signs Vital signs: Vital Signs Temp Pulse Resp BP Pulse Ox 12/26/17 17:04 98.4 F 72 18 103/50 94 12/26/17 16:30 113/63 12/26/17 16:15 116/64 12/26/17 16:00 115/64 12/26/17 15:45 115/59 12/26/17 15:30 128/68 12/26/17 15:15 121/62 12/26/17 15:00 119/60 12/26/17 14:45 115/55 12/26/17 14:30 111/60 12/26/17 14:15 102/56 12/26/17 14:00 109/51 12/26/17 13:45 97/55 12/26/17 13:30 109/50 12/26/17 13:15 107/51 12/26/17 13:00 98.2 F 16 103/49 12/26/17 11:18 69 15 98/61 97 12/26/17 11:08 67 26 113/62 100 12/26/17 10:57 76 19 116/66 100 12/26/17 09:08 105/65 12/26/17 06:50 98.7 F 69 18 106/65 95 12/26/17 05:22 99 F 62 16 108/61 95 12/26/17 01:29 99.5 F 80 16 116/72 94 12/25/17 22:00 99.9 F H 89 16 101/58 96 Intake and Output 12/26/17 12/26/17 12/26/17 07:59 15:59 23:59 Intake Total 600 / 600 Balance 600 / 600 Intake: Oral 0 / 0 Intake, Rinseback and Flushes 600 / 600 Other: Meal NPO Percent of Meal Consumed 0% Weight 97.5 kg Blood Glucose* 111 129 68 Hemodialysis Net Fluid Removed 2035 2600 (mL) Patient Weight 12/26/17 23:59 Weight 97.5 kg - General Appearance General appearance: Present: chronically ill EENT: Present: ATNC, mucous membranes moist Neck: Present: no JVD, supple Respiratory: Present: clear Cardiology: Present: edema (trace), normal S1, normal S2 Dialysis Vascular Access: Venous Catheter (permcath) Gastrointestinal: Present: no tenderness, no guarding Integumentary: Present: warm and dry Neurologic: Present: no focal deficit Musculoskeletal: Present: no deformities Psychiatric: Present: cooperative - Lab 12/30/17 04:11 12/30/17 04:11 Most recent lab results Calcium 8.5 mg/dL (8.6-10.3) L 12/26/17 06:20 Phosphorus 2.1 mg/dL (2.7-4.5) L 12/10/17 00:46 Magnesium 1.9 mg/dL (1.6-2.6) 12/11/17 05:40 Urine Creatinine 79 mg/dL 12/10/17 15:45 Urine Sodium 72.1 mEq/L 12/10/17 15:45 - VTE Documentation of Mechanical Device: Intermittent pneumatic compression device Consult Discharge Plan - Plan Instructions: Urinary Tract Infection in Women (DC), Sepsis (DC), Acute Delir ium (DC), BiPAP, Fiberglasser (GEN) Additional Instructions: Please follow with her primary care physician within one week of discharge. Take all medications as prescribed. Please make an effort to ensure that she were eating and drinking enough as this may cause you to become sick again. Referrals: Wale Lam DO [Primary Care Provider] - (PATIENT IS GOING TO [facility] NO PCP APPOINTMENT NEEDED) Prescriptions: Escitalopram [Lexapro] 10 mg PO DAILY #20 tablet Memantine [Namenda] 10 mg PO BID #10 tablet
[2017-12-26] MEDS: *HR* Heparin 5,000 UNIT/ML VIAL SQ SCH (17:24)
--- NOTE | 2017-12-26 17:29 | Internal Med Progress Note ---
<Lorraine Flanagan - Last Filed: 12/26/17 17:25> Hospitalist Progress Note - Encounter Date of Encounter: 12/26/17 Time of Encounter: 08:10 - Subjective Interval History: Ms. Bentley is a 72 year old female with PMH of T2DM, HTN, HDL, catatonia, chronic systolic heart failure, CKD-3, recurrent UTI, and chronic psychiatry problems who had an extensive hospital stay here during her last hospitalization and was discharaged on 12/08. During her last admission she was admitted with sepsis, due to URI later she developed shock, acute respiratory failure, got intubated and she also happened to have DVT for which she was started on Anti coag. pt developed hematuria so anticoagulants were stopped and placed IVC filter. Pt mentation was never improved, she was always non verbal and severe cataonic appearance. She was evaluated by psych who recommend ECT treatment and she was d/c to [facility]CF on 12/08/17. Now she was sent back to ER on 12/09/17 with worsening AMS. At this admission she was found to have a NSTEMI with Trop @ 2.16, UTI and TENISHA on CKD-3 with cr @ 3.48. She finished all her antibiotic course for UTI. Her NSTEMI mostly due to sepsis, cardiology recommend medical management. She developed ESRD started getting hemodialysis now. She is resting comfortably. No events over night. Today she is more alert, awake and following all the commands. She is not very verbal and only responds with yes or no. She appears to have low mood. She denied any suicidal ideation. Her was at bedside the entire time and was very a bit overbearing during the history taking. - Exam Vitals: Temp Pulse Resp BP Pulse Ox 98.4 F 72 18 103/50 94 12/26/17 17:04 12/26/17 17:04 12/26/17 17:04 12/26/17 17:04 12/26/17 17:04 Exam: Constitutional: Alert, in no acute distress , disheveled HEENT: central line right side of neck, Normocephalic, atraumatic Heart: Normal, regular rate and rhythm, no murmurs Lungs: diminished breath sounds, no wheezes, rales, or rhonchi Abdomen: Soft, nondistended, nontender, obese Extremities: multiple toe amputations bilaterally feet, No clubbing, Skin: Skin warm and dry, no lesions, no rashes, no jaundice Neurologic: Cooperative with exam Psych: not very communicative, not answering questions completely - Assessment and Plan (1) Hypertension Current Visit: No Status: Chronic Assessment and Plan: Well controlled with 75 mg toprolol xl (2) Type 2 diabetes mellitus Current Visit: No Status: Chronic Assessment and Plan: On 10 units of levimir BID. Also has lispro sliding scale on board. Most recent glucose reading was 68, will lower it to 7 units BID. (3) Chronic systolic heart failure Current Visit: No Status: Chronic Assessment and Plan: History of CHF with most recent echo at admission. Her EF is 30% with moderate LV diastolic dysfunction. No evidence of acute exacerbation. (4) Pneumonia Current Visit: Yes Status: Ruled-out Assessment and Plan: CXR/CT was concerning for infiltrates on B/L basal regions, possible aspiration pneumonia. completed abx on 12/18 Recommended: thin liquids and advanced soft texture diet (5) Sepsis Current Visit: Yes Status: Resolved Assessment and Plan: Resolved. Was secondary to pneumonia and UTI. She is having good urinary output. She has completed her antibiotics on 12/18. Her past 4 blood cultures have been negative. no further workup needed (6) UTI (urinary tract infection) Current Visit: Yes Status: Resolved Assessment and Plan: History of recurrent UTIs. Recent urine culture gew cedricda dedra. She has completed her medication regimen. (7) NSTEMI (non-ST elevated myocardial infarction) Current Visit: Yes Status: Acute Assessment and Plan: Likely due to demand ischemia. Continue aspirin and beta maggie. No current complaint of chest pain. (8) Catatonia Current Visit: Yes Status: Resolved Assessment and Plan: Patient still depressed. She was very quiet today and only provided answers in a yes and no fashion. She did not want to have a conversation. Unsure of the cause of her poor communication. Concern for home situation and safety. Will talk to director of social services. Continue memantine 10mg PO BID (12/23) (9) Shonna infection Current Visit: Yes Status: Resolved Assessment and Plan: urine culture: Candidda albicans (12/10). Pt was recently admitted for hematuria/ sepsis 2/2 UTI and was tx with Vanc and Cefepime, as per ID has had shonna in the past in urine. Also shonna in mouth and under skin folds. Plan: - ID was consulted, completed diflucan, last dose on 12/18. Nystatin swish and spit and topical - urology consulted for recurrent UTIs as they recommenced continued catheter drainage with plunkett and changing plunkett every 3-4 weeks. (10) Chronic anemia Current Visit: No Status: Chronic Assessment and Plan: Stable, due to ESRD. Today at 8.3 and the past three days: 7.9 --> 7.5 --> 8.6. (11) Atrial flutter with rapid ventricular response Current Visit: Yes Status: Resolved Assessment and Plan: Currently rate controlled. Atrial flutter with RVR seen on biventriculr ICD. New diagnosis, since 12/09/17. Currently resolved, HR is within normal limits as she is on 75 mg of toprolol xl. Plan: - continue toprol XL of 75 mg. - avoiding cardizem in the setting of known EF 30%. - cardiology talked to family and have concluded anticoagulation risks out weight benefits (12) Obesity Current Visit: No Status: Chronic Assessment and Plan: BMI of 38.1. She is not eating at this time due to mood. She will need more lifestyle modification counseling once her mood status is improved. (13) ESRD (end stage renal disease) on dialysis Current Visit: Yes Status: Acute Assessment and Plan: She presented with increased creatinine and developed ESRD. She is currently getting hemodialysis through right IJ temporary catheter and had a permenent catheter placed today by IR today. Will restart aspirin and plavix. DVT Prophylaxis: Has risk of bleeding so not a good candidate for anti coagulants. Will order EPCDs - Time Spent with Patient Total time spent is greater than 50% in coordination of care (as documented) at patient's floor/unit and/or counseling patient: less than 15 minutes Plan of Care Discussed with: patient Internal Medicine: Result - Labs CBC & Chem 7: 12/26/17 06:20 12/26/17 06:20 Labs: Short CBC 12/26/17 Range/Units 06:20 WBC 9.9 (4.3-11.1) K/mcL Hgb 8.3 L (11.5-15.4) g/dL Hct 27.6 L (35.3-44.9) % Plt Count 307 (140-400) K/mcL Neutrophils # 6.8 (1.6-8.9) K/mcL BMP 12/26/17 06:20 Sodium 142 Potassium 4.0 Chloride 101 Carbon Dioxide 30 H BUN 31 H Creatinine 6.44 H Glucose 97 Calcium 8.5 L - ABG Interpretation ABG results: PT/INR, D-dimer PT 14.5 Seconds (9.4-12.1) H 12/26/17 06:20 - Impressions Impressions Guidance Ultrasound 12/26/17 00:00 IMPRESSION: Successful ultrasound and fluoroscopy guided tunneled catheter placement . D/ / Travis Goodson MD / Travis Goodson MD Interpreting Provider: Travis Goodson MD Insertion Tunneled Catheter 12/26/17 00:00 IMPRESSION: Successful ultrasound and fluoroscopy guided tunneled catheter placement . D/ / Travis Goodson MD / Travis Goodson MD Interpreting Provider: Travis Goodson MD - VTE Documentation of Mechanical Device: Intermittent pneumatic compression device Consult Discharge Plan - Plan Instructions: BiPAP, Psych Arnp (GEN) Referrals: Wale Lam DO [Primary Care Provider] - (PATIENT IS GOING TO ECF NO PCP APPOINTMENT NEEDED) <Wilfred Bunn - Last Filed: 12/26/17 18:54> Hospitalist Progress Note - Encounter Date of Encounter: 12/26/17 - Exam Vitals: Temp Pulse Resp BP Pulse Ox 98.4 F 72 18 103/50 94 12/26/17 17:04 12/26/17 17:04 12/26/17 17:04 12/26/17 17:04 12/26/17 17:04 - Assessment and Plan (1) Hypertension Current Visit: No Status: Chronic (2) Type 2 diabetes mellitus Current Visit: No Status: Chronic (3) Chronic systolic heart failure Current Visit: No Status: Chronic (4) Pneumonia Current Visit: Yes Status: Ruled-out (5) Sepsis Current Visit: Yes Status: Resolved (6) UTI (urinary tract infection) Current Visit: Yes Status: Resolved (7) NSTEMI (non-ST elevated myocardial infarction) Current Visit: Yes Status: Acute (8) Catatonia Current Visit: Yes Status: Resolved (9) Shonna infection Current Visit: Yes Status: Resolved (10) Chronic anemia Current Visit: No Status: Chronic (11) Atrial flutter with rapid ventricular response Current Visit: Yes Status: Resolved (12) Obesity Current Visit: No Status: Chronic (13) ESRD (end stage renal disease) on dialysis Current Visit: Yes Status: Acute - Time Spent with Patient Total time spent is greater than 50% in coordination of care (as documented) at patient's floor/unit and/or counseling patient: Internal Medicine: Result - Labs CBC & Chem 7: 12/26/17 06:20 12/26/17 06:20 Labs: Short CBC 12/26/17 Range/Units 06:20 WBC 9.9 (4.3-11.1) K/mcL Hgb 8.3 L (11.5-15.4) g/dL Hct 27.6 L (35.3-44.9) % Plt Count 307 (140-400) K/mcL Neutrophils # 6.8 (1.6-8.9) K/mcL BMP 12/26/17 06:20 Sodium 142 Potassium 4.0 Chloride 101 Carbon Dioxide 30 H BUN 31 H Creatinine 6.44 H Glucose 97 Calcium 8.5 L - ABG Interpretation ABG results: PT/INR, D-dimer PT 14.5 Seconds (9.4-12.1) H 12/26/17 06:20 - Impressions Impressions Guidance Ultrasound 12/26/17 00:00 IMPRESSION: Successful ultrasound and fluoroscopy guided tunneled catheter placement . D/ / Travis Goodson MD / Travis Goodson MD Interpreting Provider: Travis Goodson MD Insertion Tunneled Catheter 12/26/17 00:00 IMPRESSION: Successful ultrasound and fluoroscopy guided tunneled catheter placement . D/ / Travis Goodson MD / Travis Goodson MD Interpreting Provider: Travis Goodson MD - Attending Attestation I examined this patient and my medical decision-making was reviewed with the Resident Physician Dr. Flanagan. I agree with the documented findings, disposition and treatment plan as described except to the extent set forth below. Ms. Bentley is a 72 year old female with PMH of T2DM, HTN, HDL, catatonia, chronic systolic heart failure, CKD-3, recurrent UTI, and chronic psychiatry problems who had an extensive hospital stay here during her last hospitalization. Pt was admitted with sepsis, due to URI later she developed shock, acute respiratroy failure, got intubated and she also happened to have DVT for which she was started on Anti coag. pt developed hematuria so anti coag got d/cd and placed IVC filter. Pt mentation was never improved, she was always non verbal and severe cataonic appearance. pt was evaluated by psych who recommend ECT treatment. pt was d/c to ECF on 12/08/17. Now she was sent back to ER on with worsening AMS. She happened to have NSTEMI with Trop @ 2.16, UTI and TENISHA on CKD-3 with cr @ 3.48. She finished all her antibiotic course for UTI. Her NSTEMI mostly due to sepsis, cardiology recommend medical management. She developed ESRD started getting hemodialysis now. She is resting comfortably. No events over night. Had perm HD cath placed in today. Still very depressed. Poor PO intake.. Withdrawing care. Re consulted psych again. <Lorraine Flanagan - Last Filed: 12/26/17 17:25> (1) Hypertension Qualifiers: Hypertension type: essential hypertension Qualified Code(s): I10 - Essential (primary) hypertension (2) Type 2 diabetes mellitus Qualifiers: Diabetes mellitus assisted insulin use: with intermediate designer use Diabetes mellitus complication status: with kidney complications Diabetes mellitus complication detail: with chronic kidney disease Chronic kidney disease stage: stage 4 (severe) Qualified Code(s): E11.22 - Type 2 diabetes mellitus with diabetic chronic kidney disease; N18.4 - Chronic kidney disease, stage 4 (severe ); Z79.4 - alf (current) use of insulin (4) Pneumonia Qualifiers: Pneumonia type: due to unspecified organism Laterality: right Lung location : lower lobe of lung Qualified Code(s): J18.1 - Lobar pneumonia, unspecified organism (5) Sepsis Qualifiers: Sepsis type: sepsis due to unspecified organism Qualified Code(s): A41.9 - Sepsis, unspecified organism (6) UTI (urinary tract infection) Qualifiers: Urinary tract infection type: site unspecified Hematuria presence: without hematuria Qualified Code(s): N39.0 - Urinary tract infection, site not specified (12) Obesity Qualifiers: Obesity type: due to excess calories Obesity classification: adult class 3 ( BMI >= 40) Serious obesity comorbidity presence: with serious comorbidity Body mass index: BMI 40.0-44.9 Qualified Code(s): E66.01 - Morbid (severe) obesity due to excess calories; Z68.41 - Body mass index (BMI) 40.0-44.9, adult <Wilfred Bunn - Last Filed: 12/26/17 18:54> (1) Hypertension Qualifiers: Hypertension type: essential hypertension Qualified Code(s): I10 - Essential (primary) hypertension (2) Type 2 diabetes mellitus Qualifiers: Diabetes mellitus intermediate designer insulin use: with assisted use Diabetes mellitus complication status: with kidney complications Diabetes mellitus complication detail: with chronic kidney disease Chronic kidney disease stage: stage 4 (severe) Qualified Code(s): E11.22 - Type 2 diabetes mellitus with diabetic chronic kidney disease; N18.4 - Chronic kidney disease, stage 4 (severe ); Z79.4 - alf (current) use of insulin (4) Pneumonia Qualifiers: Pneumonia type: due to unspecified organism Laterality: right Lung location : lower lobe of lung Qualified Code(s): J18.1 - Lobar pneumonia, unspecified organism (5) Sepsis Qualifiers: Sepsis type: sepsis due to unspecified organism Qualified Code(s): A41.9 - Sepsis, unspecified organism (6) UTI (urinary tract infection) Qualifiers: Urinary tract infection type: site unspecified Hematuria presence: without hematuria Qualified Code(s): N39.0 - Urinary tract infection, site not specified (12) Obesity Qualifiers: Obesity type: due to excess calories Obesity classification: adult class 3 ( BMI >= 40) Serious obesity comorbidity presence: with serious comorbidity Body mass index: BMI 40.0-44.9 Qualified Code(s): E66.01 - Morbid (severe) obesity due to excess calories; Z68.41 - Body mass index (BMI) 40.0-44.9, adult
[2017-12-27] MEDS: *HR* Heparin 5,000 UNIT/ML VIAL SQ SCH ×2 (06:15→17:58)
[2017-12-27 06:19] LABS: Hematocrit 27.8 % (35.3-44.9); Hemoglobin 8.3 g/dL (11.5-15.4); Immature Granulocytes % 0.5 % (0-4); Lymphocytes % 12.1 %; Mean Corpuscular HGB Conc 29.9 g/dL (31.6-35.5); Mean Corpuscular Hemoglobin 27.6 pg (28.0-33.3); Mean Corpuscular Volume 92.4 fL (83.0-100.0); Mean Platelet Volume 9.7 fL (9.4-12.4); Monocytes % 14.1 %; Platelet Count 315 K/mcL (140-400); Red Blood Count 3.01 M/mcL (3.82-4.97); Red Cell Distribution Width 17.3 % (11.5-14.5); Segmented Neutrophils % 70.4 %
[2017-12-27 06:20] LABS: Basophils % 0.5 %; Eosinophils # 0.2 K/mcL (0.0-0.6); Eosinophils % 2.4 %; Lymphocytes # 1.1 K/mcL (0.6-4.6); Monocytes # 1.2 K/mcL (0.0-1.3); Neutrophils # 6.1 K/mcL (1.6-8.9)
[2017-12-27 06:25] LABS: INR 1.3; Prothrombin Time 14.7 Seconds (9.4-12.1)
[2017-12-27 06:39] LABS: Calcium 8.5 mg/dL (8.6-10.3); Potassium 3.7 mEq/L (3.5-5.1)
[2017-12-27] MEDS: Insulin LISPRO 300 UNITS/3 ML VIAL SQ SCH ×4 (07:50→20:23)
[2017-12-27 08:33] LABS: Complement Component 3 114 mg/dL (88-201); Complement Component 4 38 mg/dL (10-40)
[2017-12-27] MEDS: Ondansetron 4 MG/2 ML VIAL IVP PRN (09:05)
--- NOTE | 2017-12-27 10:13 | Internal Med Progress Note ---
<Lorraine Flanagan - Last Filed: 12/27/17 17:03> Hospitalist Progress Note - Encounter Date of Encounter: 12/27/17 Time of Encounter: 09:15 - Subjective Interval History: Ms. Bentley is a 72 year old female with PMH of T2DM, HTN, HDL, catatonia, chronic systolic heart failure, CKD-3, recurrent UTI, and chronic psychiatry problems who had an extensive hospital stay here during her last hospitalization and was discharged on 12/08. During her last admission she was admitted with sepsis, due to URI later she developed shock, acute respiratory failure, got intubated and she also happened to have DVT for which she was started on Anti coag. pt developed hematuria so anticoagulants were stopped and placed IVC filter. Pt mentation was never improved, she was always non verbal and severe cataonic appearance. She was evaluated by psych who recommend ECT treatment and she was d/c to [facility] on 12/08/17. Now she was sent back to ER on 12/09/17 with worsening AMS. At this admission she was found to have a NSTEMI with Trop @ 2.16, UTI and TENISHA on CKD-3 with cr @ 3.48. She finished all her antibiotic course for UTI. Her NSTEMI mostly due to sepsis, cardiology recommend medical management. She developed ESRD started getting hemodialysis now. She is resting comfortably. No events overnight. She is awake and alert and follows commands but continues to be nonverbal with just nodding and head gesture for response. She appears to have low mood. She denied any suicidal ideation. Her was at her bedside the entire time and was very a bit overbearing during the history taking. I did ask him to step outside today and she still was unable to provide me with any significant information. I asked if she would like to speak with our psychiatrist and she gestured no. She denied fever, chills, nausea, emesis, shortness of breath or chest pain. She did complain of abdominal pain when I palpated her abdomen. - Exam Vitals: Temp Pulse Resp BP Pulse Ox 98.6 F 77 17 104/64 97 12/27/17 07:02 12/27/17 07:02 12/27/17 07:02 12/27/17 07:02 12/27/17 07:58 Exam: Constitutional: Alert, in no acute distress , disheveled HEENT: central line right side of neck, Normocephalic, atraumatic Heart: Normal, regular rate and rhythm, no murmurs Lungs: breath sounds equal at all lungs lobes, no wheezes, rales, or rhonchi Abdomen: Soft, nondistended, obese, abdominal tenderness at the left lower quadrant Extremities: multiple toe amputations bilaterally feet, No clubbing, Skin: Skin warm and dry, no lesions, no rashes, no jaundice, vascular changes at bilateral lower legs Neurologic: Cooperative with exam Psych: not very communicative, not answering questions completely - Assessment and Plan (1) Catatonia Current Visit: Yes Status: Resolved Assessment and Plan: Patient still depressed. She was very quiet today and only provided answers in a yes and no fashion. She did not want to have a conversation. Unsure of the cause of her poor communication. Concern for home situation and safety. Will talk to child welfare social worker. Continue memantine 10mg PO BID (12/23). Psychiatry saw her today and recommended inpatient geriatric care. (2) Hypertension Current Visit: No Status: Chronic Assessment and Plan: Well controlled with 75 mg toprolol xl (3) Type 2 diabetes mellitus Current Visit: No Status: Chronic Assessment and Plan: Glucose 86 this morning, decreased her detemir from 10 BID to 7 BID. Also has lispro sliding scale on board. (4) Chronic systolic heart failure Current Visit: No Status: Chronic Assessment and Plan: History of CHF with most recent echo at admission. Her EF is 30% with moderate LV diastolic dysfunction. No evidence of acute exacerbation. (5) Pneumonia Current Visit: Yes Status: Ruled-out Assessment and Plan: CXR/CT was concerning for infiltrates on B/L basal regions, possible aspiration pneumonia. Completed abx on 12/18 Recommended: thin liquids and advanced soft texture diet (6) Sepsis Current Visit: Yes Status: Resolved Assessment and Plan: Resolved. Was secondary to pneumonia and UTI. She is having good urinary output. She has completed her antibiotics on 12/18. Her past 4 blood cultures have been negative. No further workup needed (7) UTI (urinary tract infection) Current Visit: Yes Status: Resolved Assessment and Plan: History of recurrent UTIs. Recent urine culture grew cnadida albican. She has completed her medication regimen. (8) NSTEMI (non-ST elevated myocardial infarction) Current Visit: Yes Status: Acute Assessment and Plan: Likely due to demand ischemia. Continue aspirin and beta maggie. No current complaint of chest pain. (9) Shonna infection Current Visit: Yes Status: Resolved Assessment and Plan: urine culture: Candidda albicans (12/10). Pt was recently admitted for hematuria/ sepsis 2/2 UTI and was tx with Vanc and Cefepime, as per ID has had shonna in the past in urine. Also shonna in mouth and under skin folds. Plan: - ID was consulted, completed diflucan, last dose on 12/18. Nystatin swish and spit and topical - urology consulted for recurrent UTIs as they recommenced continued catheter drainage with plunkett and changing plunkett every 3-4 weeks. (10) Chronic anemia Current Visit: No Status: Chronic Assessment and Plan: Stable, due to ESRD. Today at 8.3 and the past three days: 7.9 --> 7.5 --> 8.6 - -> 8.3 --> 8.3 today. (11) Atrial flutter with rapid ventricular response Current Visit: Yes Status: Resolved Assessment and Plan: Currently rate controlled. Atrial flutter with RVR seen on biventriculr ICD. New diagnosis, since 12/09/17. Currently resolved, HR is within normal limits as she is on 75 mg of toprolol xl. Plan: - continue toprol XL of 75 mg. - avoiding cardizem in the setting of known EF 30%. - cardiology talked to family and have concluded anticoagulation risks out weight benefits (12) Obesity Current Visit: No Status: Chronic Assessment and Plan: BMI of 38.1. She is not eating at this time due to mood. She will need more lifestyle modification counseling once her mood status is improved. (13) ESRD (end stage renal disease) on dialysis Current Visit: Yes Status: Acute Assessment and Plan: She presented with increased creatinine and developed ESRD. She is currently getting hemodialysis through right IJ temporary catheter and had a permenent catheter placed today by IR yesterday. DVT Prophylaxis: Has risk of bleeding so not a good candidate for anti coagulants. EPCDs. - Time Spent with Patient Total time spent is greater than 50% in coordination of care (as documented) at patient's floor/unit and/or counseling patient: 25 - 35 minutes Plan of Care Discussed with: patient Internal Medicine: Result - Labs CBC & Chem 7: 12/27/17 06:01 12/27/17 06:01 Labs: Short CBC 12/27/17 Range/Units 06:01 WBC 8.7 (4.3-11.1) K/mcL Hgb 8.3 L (11.5-15.4) g/dL Hct 27.8 L (35.3-44.9) % Plt Count 315 (140-400) K/mcL Neutrophils # 6.1 (1.6-8.9) K/mcL BMP 12/27/17 06:01 Sodium 140 Potassium 3.7 Chloride 98 Carbon Dioxide 31 H BUN 16 Creatinine 3.69 H Glucose 86 Calcium 8.5 L - ABG Interpretation ABG results: PT/INR, D-dimer PT 14.7 Seconds (9.4-12.1) H 12/27/17 06:01 - Impressions Impressions Guidance Ultrasound 12/26/17 00:00 IMPRESSION: Successful ultrasound and fluoroscopy guided tunneled catheter placement . D/ / Travis Goodson MD / Travis Goodson MD Interpreting Provider: Travis Goodson MD Insertion Tunneled Catheter 12/26/17 00:00 IMPRESSION: Successful ultrasound and fluoroscopy guided tunneled catheter placement . D/ / Travis Goodson MD / Travis Goodson MD Interpreting Provider: Travis Goodson MD - VTE Documentation of Mechanical Device: Intermittent pneumatic compression device Consult Discharge Plan - Plan Instructions: BiPAP, Skills Auditor (GEN) Referrals: Wale Lam DO [Primary Care Provider] - (PATIENT IS GOING TO ECF NO PCP APPOINTMENT NEEDED) <Meghan Sánchez - Last Filed: 12/27/17 18:15> Hospitalist Progress Note - Encounter Date of Encounter: 12/27/17 - Exam Vitals: Temp Pulse Resp BP Pulse Ox 98.9 F 87 17 112/67 94 12/27/17 15:26 12/27/17 15:26 12/27/17 15:26 12/27/17 15:26 12/27/17 15:26 - Assessment and Plan (1) Hypertension Current Visit: No Status: Chronic (2) Type 2 diabetes mellitus Current Visit: No Status: Chronic (3) Chronic systolic heart failure Current Visit: No Status: Chronic (4) Pneumonia Current Visit: Yes Status: Ruled-out (5) Sepsis Current Visit: Yes Status: Resolved (6) UTI (urinary tract infection) Current Visit: Yes Status: Resolved (7) NSTEMI (non-ST elevated myocardial infarction) Current Visit: Yes Status: Acute (8) Catatonia Current Visit: Yes Status: Resolved (9) Shonna infection Current Visit: Yes Status: Resolved (10) Chronic anemia Current Visit: No Status: Chronic (11) Atrial flutter with rapid ventricular response Current Visit: Yes Status: Resolved (12) Obesity Current Visit: No Status: Chronic (13) ESRD (end stage renal disease) on dialysis Current Visit: Yes Status: Acute - Time Spent with Patient Total time spent is greater than 50% in coordination of care (as documented) at patient's floor/unit and/or counseling patient: Internal Medicine: Result - Labs CBC & Chem 7: 12/27/17 06:01 12/27/17 06:01 Labs: Short CBC 12/27/17 Range/Units 06:01 WBC 8.7 (4.3-11.1) K/mcL Hgb 8.3 L (11.5-15.4) g/dL Hct 27.8 L (35.3-44.9) % Plt Count 315 (140-400) K/mcL Neutrophils # 6.1 (1.6-8.9) K/mcL BMP 12/27/17 06:01 Sodium 140 Potassium 3.7 Chloride 98 Carbon Dioxide 31 H BUN 16 Creatinine 3.69 H Glucose 86 Calcium 8.5 L - ABG Interpretation ABG results: PT/INR, D-dimer PT 14.7 Seconds (9.4-12.1) H 12/27/17 06:01 - Attending Attestation I have seen and examined this pt independently. I have discussed with resident physician Dr. Flanagan regarding the management plan. Agree with the documentation. <Lorraine Flanagan - Last Filed: 12/27/17 17:03> (2) Hypertension Qualifiers: Hypertension type: essential hypertension Qualified Code(s): I10 - Essential (primary) hypertension (3) Type 2 diabetes mellitus Qualifiers: Diabetes mellitus mcfp insulin use: with long term care pharmacist use Diabetes mellitus complication status: with kidney complications Diabetes mellitus complication detail: with chronic kidney disease Chronic kidney disease stage: stage 4 (severe) Qualified Code(s): E11.22 - Type 2 diabetes mellitus with diabetic chronic kidney disease; N18.4 - Chronic kidney disease, stage 4 (severe ); Z79.4 - residential (current) use of insulin (5) Pneumonia Qualifiers: Pneumonia type: due to unspecified organism Laterality: right Lung location : lower lobe of lung Qualified Code(s): J18.1 - Lobar pneumonia, unspecified organism (6) Sepsis Qualifiers: Sepsis type: sepsis due to unspecified organism Qualified Code(s): A41.9 - Sepsis, unspecified organism (7) UTI (urinary tract infection) Qualifiers: Urinary tract infection type: site unspecified Hematuria presence: without hematuria Qualified Code(s): N39.0 - Urinary tract infection, site not specified (12) Obesity Qualifiers: Obesity type: due to excess calories Obesity classification: adult class 3 ( BMI >= 40) Serious obesity comorbidity presence: with serious comorbidity Body mass index: BMI 40.0-44.9 Qualified Code(s): E66.01 - Morbid (severe) obesity due to excess calories; Z68.41 - Body mass index (BMI) 40.0-44.9, adult <Meghan Sánchez - Last Filed: 12/27/17 18:15> (1) Hypertension Qualifiers: Hypertension type: essential hypertension Qualified Code(s): I10 - Essential (primary) hypertension (2) Type 2 diabetes mellitus Qualifiers: Diabetes mellitus long term care pharmacist insulin use: with long term care pharmacist use Diabetes mellitus complication status: with kidney complications Diabetes mellitus complication detail: with chronic kidney disease Chronic kidney disease stage: stage 4 (severe) Qualified Code(s): E11.22 - Type 2 diabetes mellitus with diabetic chronic kidney disease; N18.4 - Chronic kidney disease, stage 4 (severe ); Z79.4 - long term care pharmacist (current) use of insulin (4) Pneumonia Qualifiers: Pneumonia type: due to unspecified organism Laterality: right Lung location : lower lobe of lung Qualified Code(s): J18.1 - Lobar pneumonia, unspecified organism (5) Sepsis Qualifiers: Sepsis type: sepsis due to unspecified organism Qualified Code(s): A41.9 - Sepsis, unspecified organism (6) UTI (urinary tract infection) Qualifiers: Urinary tract infection type: site unspecified Hematuria presence: without hematuria Qualified Code(s): N39.0 - Urinary tract infection, site not specified (12) Obesity Qualifiers: Obesity type: due to excess calories Obesity classification: adult class 3 ( BMI >= 40) Serious obesity comorbidity presence: with serious comorbidity Body mass index: BMI 40.0-44.9 Qualified Code(s): E66.01 - Morbid (severe) obesity due to excess calories; Z68.41 - Body mass index (BMI) 40.0-44.9, adult
[2017-12-27] MEDS: amLODIPine 5 MG TABLET PO SCH (10:39)
[2017-12-27] MEDS: Metoprolol XL (24 HR) Succ 25 MG TAB.ER.24H PO SCH (10:39)
[2017-12-27] MEDS: Ascorbic Acid 500 MG TABLET PO SCH ×2 (10:39→20:25)
[2017-12-27] MEDS: MICONAZOLE NITRATE 57 GM TUBE TP SCH ×2 (10:40→20:24)
[2017-12-27] MEDS: Nystatin POWDER 30 GM BOTTLE TP SCH ×2 (10:40→20:24)
[2017-12-27] MEDS: Insulin DETEMIR 100 UNIT/ML X5UNITS SQ SCH ×2 (11:10→20:25)
[2017-12-27] MEDS ORDERED: 0.9 % Sodium Chloride 500 ML IVC SCH (11:30)
[2017-12-27] MEDS: 0.9 % Sodium Chloride 1,000 ML IVC SCH (13:20)
--- NOTE | 2017-12-27 15:29 | Consult Note ---
Date of Encounter: 12/27/17 Time of Encounter: 14:00 Assessment & Recommendation (1) Depressive disorder, not elsewhere classified Current visit: Yes Status: Acute Assessment & Recommendation: please start escitalopram 5 mg will benefit once medically cleared from [facility]. (2) Catatonic disorder due to known physiological condition Current visit: Yes Status: Acute History of Present Illness Patient: known to practice within the last 3 years Requesting Physician: Meghan Sánchez MD Reason for consult: major depression /catatonia , not eating or drinking. History of present illness: Ms. Bentley is a 72 year old female was consulted today , was consulted for depression , catatonia earlier was consulted for same reason by Dr Malloy and was initially given lorazepam and got worse and then started on nemanda .chart reviewed , she is morbidly obese white female with multiple medical problems , mostly non verbal and selectively mute ,collateral from , at present she was evaluated at her bedside , her was in room , she was selectively mute will answer questions by noding but when asked her to talk otherwise he will leave she said no and answered one question with one word. when he holded her hand she said " let go of me." so she is selectively not talking , she was mostly staring at one point , she denied psychosis , denies being sad with nodding her head , denies suicide thoughts but will not answer why not eating or drinking. she looked angry and internally reoccupied. Past psych her denies any past psych history and denies any drug history. At present patient may benefit from low dose anti depressant and low dose antipsychotic. she was able to move her legs and raise her arms when asked to do so, she can follow command. A/P depressive disorder nos, catatonic features needs geriatic psych inpatient for her care for her not wanting to care for her self AND REFUSING TO EAT . please start escitalopram 5 mg continue observation will sign off now. Thank you for consult. CC: Meghan Sánchez MD Past Med Surg Social Fam HX - Past Medical History Medical history: cardiomyopathy, CHF, coronary artery disease, CVA, diabetes, GERD, hyperlipidemia, hypertension, kidney stones, myocardial infarction, peripheral artery disease, renal disease, TIA - Past Psychiatric History Psychiatric history: Reports: no psych history Family psychiatric history: Unknown Family History of Suicide: Unknown - Past Surgical History Surgical History: appendectomy, breast surgery, carotid endarterectomy, cholecystectomy, coronary bypass (CABG), hysterectomy, pacemaker/AICD, LE vascular intervention - Social History Smoking Status: Former smoker Smokeless Tobacco Status: No Alcohol use: none Drug use: none - Family History Mother Living Status: Hx Family Cardiac Disorders: Yes (HTN) Hx Family Endocrine Disorder: Yes (diabetes) Hx Family Neurologic Disorders: Yes (2 strokes) Father Living Status: Hx Family Cardiac Disorders: Yes Hx Family Respiratory Disorders: Yes Hx Family Neurologic Disorders: Yes Medications & Allergies Aspirin Enteric Coated [Aspirin EC] 81 mg PO DAILY 08/20/15 [History] Metoprolol XL (24 HR) Succ [Toprol Xl] 50 mg PO DAILY #30 tab.er.24h 01/07/16 [ Rx] Insulin Glargine,Hum.rec.anlog [Toujeo Solostar] 45 units SQ HS 06/10/16 [ History] Multivit-Minerals/Folic/Ginkgo [One Daily For Women 50+ Adv Tb] 1 tab PO DAILY 06/10/16 [History] Furosemide [Lasix] 40 mg PO QAM 10/03/16 [History] Insulin ASPART [Novolog Flexpen] 25 unit SQ TIDWM 10/03/16 [History] Clopidogrel [Plavix] 75 mg PO DAILY 11/03/17 [History] Oxybutynin Chloride [Ditropan Xl] 10 mg PO DAILY 11/03/17 [History] Rosuvastatin Calcium 10 mg PO HS 11/03/17 [History] Ascorbic Acid [Vitamin C] 500 mg PO BID 11/17/17 [History] Ergocalciferol (VITAMIN D2) [Vitamin D2] 50,000 unit PO QWEEK 11/17/17 [History] Dextromethorphan HBr/Quinidine [Nuedexta 20-10 mg Capsule] 1 each PO DAILY 30 Days #30 capsule 12/08/17 [Rx] Ferrous Sulfate 325 mg PO DAILY@0800 tablet 12/08/17 [Rx] LORazepam [Ativan] 1 mg PO TID 6 Days #18 tablet 12/08/17 [Rx] Miconazole 2% ointment [Aloe [place] Antifungal Ointment] 1 appl TP DAILY tube [Rx] amLODIPine [Norvasc] 10 mg PO DAILY tablet 12/08/17 [Rx] 3 Allergy/AdvReac Type Severity Reaction Status Date / Time venom-honey bee Allergy Severe Swelling Verified 11/03/17 10:53 [bee venom (honey bee)] of Lip/Tongue/Throat Cortisone Allergy Mild Hives Verified 11/03/17 10:53 Penicillins Allergy See Verified 11/03/17 10:53 Comments NSAIDS (Non-Steroidal AdvReac Mild UPSET Verified 11/03/17 10:53 Anti-Inflamma STOMACH cefazolin [From Ancef] AdvReac Hives Verified 11/03/17 10:53 Uktzpey-Zvq-Thd Reductase AdvReac Muscle Pain Verified 11/03/17 10:53 Inhibitor [Statins] GRAPE FLAVOR Allergy Mild Swelling Uncoded 11/03/17 10:53 of the Eye Review of Systems Psychiatric: Reports: depression, other Psychiatry Exam - Constitutional Vitals: Temp Pulse Resp BP Pulse Ox 98.5 F 112 18 104/69 96 12/27/17 11:16 12/27/17 11:16 12/27/17 11:16 12/27/17 11:16 12/27/17 11:16 General appearance: obese - Psychiatric Level of alertness: Alert Behavior: uncooperative Eye Contact: No Eye Contact Mood Description: Other (sad) Affect description: blunted Speech Volume: No speech (patient selectively mute) Judgment: Poor Insight: Minimal Results - Labs Labs: Laboratory Last Values WBC 8.7 K/mcL (4.3-11.1) 12/27/17 06:01 RBC 3.01 M/mcL (3.82-4.97) L 12/27/17 06:01 Hgb 8.3 g/dL (11.5-15.4) L 12/27/17 06:01 Hct 27.8 % (35.3-44.9) L 12/27/17 06:01 MCV 92.4 fL (83.0-100.0) 12/27/17 06:01 MCH 27.6 pg (28.0-33.3) L 12/27/17 06:01 MCHC 29.9 g/dL (31.6-35.5) L 12/27/17 06:01 RDW 17.3 % (11.5-14.5) H 12/27/17 06:01 Plt Count 315 K/mcL (140-400) 12/27/17 06:01 MPV 9.7 fL (9.4-12.4) 12/27/17 06:01 Immature Gran % 0.5 % (0-4) 12/27/17 06:01 Seg Neutrophils % 70.4 % 12/27/17 06:01 Band Neutrophils % 6.0 % (0-4) H 12/17/17 03:35 Lymphocytes % 12.1 % 12/27/17 06:01 Monocytes % 14.1 % 12/27/17 06:01 Eosinophils % 2.4 % 12/27/17 06:01 Basophils % 0.5 % 12/27/17 06:01 Metamyelocytes % 2.0 % (0) H 12/17/17 03:35 Neutrophils # 6.1 K/mcL (1.6-8.9) 12/27/17 06:01 Lymphocytes # 1.1 K/mcL (0.6-4.6) 12/27/17 06:01 Monocytes # 1.2 K/mcL (0.0-1.3) 12/27/17 06:01 Eosinophils # 0.2 K/mcL (0.0-0.6) 12/27/17 06:01 Basophils # 0.0 K/mcL (0.0-0.2) 12/27/17 06:01 Nucleated RBCs/100 WBC 0.2 /100 WBC (0) H 12/20/17 03:38 Platelet Estimate Normal (Normal) 12/17/17 03:35 Immature Plt Fraction 3.9 % (1.1-6.1) 12/22/17 03:23 Anisocytosis 1+ (Not Present) A 12/17/17 03:35 PT 14.7 Seconds (9.4-12.1) H 12/27/17 06:01 INR 1.3 12/27/17 06:01 APTT 71.2 Seconds (26.0-36.0) H 12/10/17 02:55 Heparin Anti-Xa, Unfract 0.43 IU/mL (0.30-0.70) 12/12/17 06:29 VBG pH 7.45 pH Units (7.32-7.42) H 12/09/17 15:36 VBG pCO2 39 mmHg (41-51) L 12/09/17 15:36 VBG pO2 100 mmHg (25-50) H 12/09/17 15:36 VBG HCO3 27 mEq/L (21-27) 12/09/17 15:36 Sodium 140 mEq/L (136-145) 12/27/17 06:01 Potassium 3.7 mEq/L (3.5-5.1) 12/27/17 06:01 Chloride 98 mEq/L (98-107) 12/27/17 06:01 Carbon Dioxide 31 mEq/L (23-29) H 12/27/17 06:01 BUN 16 mg/dL (8-23) 12/27/17 06:01 Creatinine 3.69 mg/dL (0.60-1.20) H 12/27/17 06:01 Est GFR ( Amer) 15 (> 60) L 12/27/17 06:01 Est GFR (Non-Af Amer) 12 (> 60) L 12/27/17 06:01 BUN/Creatinine Ratio 4 (6-26) L 12/27/17 06:01 Glucose 86 mg/dL (70-105) 12/27/17 06:01 POC Glucose 68 mg/dL (70-99) L 12/26/17 17:03 Calculated Osmolality 290 (280-300) 12/27/17 06:01 Lactic Acid 0.6 mmol/L (0.5-2.2) 12/22/17 12:21 Uric Acid 6.1 mg/dL (2.3-7.6) 12/10/17 15:22 Calcium 8.5 mg/dL (8.6-10.3) L 12/27/17 06:01 Phosphorus 2.1 mg/dL (2.7-4.5) L 12/10/17 00:46 Magnesium 1.9 mg/dL (1.6-2.6) 12/11/17 05:40 Iron 36 mcg/dL (50-170) L 12/12/17 06:29 % Saturation 20 % (15-50) 12/12/17 06:29 Transferrin 130 mg/dL (203-362) L 12/12/17 06:29 Total Bilirubin 0.5 mg/dL (0.3-1.0) 12/23/17 03:40 Direct Bilirubin 0.3 mg/dL (0.0-0.2) H 12/09/17 13:10 Indirect Bilirubin 0.3 mg/dL (0.0-1.2) 12/09/17 13:10 AST 12 Units/L (13-39) L 12/23/17 03:40 ALT 7 Units/L (7-52) 12/23/17 03:40 Alkaline Phosphatase 89 Units/L (34-104) 12/23/17 03:40 Ammonia 20 mcmol/L (16-53) 12/09/17 13:51 Creatine Kinase 80 Units/L (30-223) 12/10/17 15:22 Troponin I 0.86 ng/mL (< 0.04) H* 12/10/17 06:31 Serum Total Protein 6.2 g/dL (6.4-8.9) L 12/23/17 03:40 Albumin 2.5 g/dL (3.5-5.7) L 12/23/17 03:40 Globulin 3.7 g/dL (2.4-3.5) H 12/23/17 03:40 Albumin/Globulin Ratio 0.7 (1.1-2.2) L 12/23/17 03:40 Prealbumin 10.3 mg/dL (17.0-34.0) L 12/09/17 18:56 Amylase 20 Units/L (29-103) L 12/13/17 16:32 Lipase 23 Units/L (11-82) 12/13/17 16:32 Beta-Hydroxybutyric Acd 0.23 mmol/L (0.02-0.27) 12/09/17 15:13 Urine Color Yellow (Yellow) 12/22/17 15:15 Urine Clarity Turbid (Clear) A 12/22/17 15:15 Urine pH 7.5 pH Units (5.0-8.0) 12/22/17 15:15 Ur Specific [place] 1.012 (1.010-1.025) 12/22/17 15:15 Urine Protein >=300 mg/dL (Neg-Trace) H 12/22/17 15:15 Urine Glucose (UA) Normal mg/dL (Normal) 12/22/17 15:15 Urine Ketones Trace mg/dL (Negative) H 12/22/17 15:15 Urine Blood Moderate (Negative) H 12/22/17 15:15 Urine Nitrite Negative (Negative) 12/22/17 15:15 Urine Bilirubin Negative (Negative) 12/22/17 15:15 Urine Urobilinogen Normal mg/dL (Normal) 12/22/17 15:15 Ur Leukocyte Esterase Large (Negative) H 12/22/17 15:15 Urine Microscopic RBC 5-15 per hpf (0-3) H 12/22/17 15:15 Urine Microscopic WBC TNTC per hpf (0-3) H 12/22/17 15:15 Ur Eosinophil Smear 0 % (None Seen) 12/10/17 15:45 Ur Squamous Epith Cells Many per lpf (None-Few) H 12/22/17 15:15 Urine Bacteria None Seen per hpf (None-Few) 12/22/17 15:15 Hyaline Casts None Seen per lpf (None-Few) 12/09/17 16:02 Ur Culture Indicated? NO. (NO) A 12/22/17 15:15 Urine Creatinine 79 mg/dL 12/10/17 15:45 Urine Sodium 72.1 mEq/L 12/10/17 15:45 Random Vancomycin 17 mcg/mL 12/11/17 05:40 Urine Opiates Screen Negative ng/mL (Zsogpb=951) 12/09/17 16:00 Ur Barbiturates Screen Negative ng/mL (Cqpqxv=771) 12/09/17 16:00 Ur Phencyclidine Scrn Negative ng/mL (Cutoff=25) 12/09/17 16:00 Ur Amphetamines Screen Negative ng/mL (Xawfjw=6203) 12/09/17 16:00 U Benzodiazepines Scrn Negative ng/mL (Uktbbf=520) 12/09/17 16:00 Urine Cocaine Screen Negative ng/mL (Cutoff= 300) 12/09/17 16:00 U Marijuana (THC) Screen Negative ng/mL (Cutoff = 50) 12/09/17 16:00 Ur Drug Screen Interp See Below 12/09/17 16:00 Ethyl Alcohol < 10 mg/dL (Less than 10) 12/09/17 13:10 Complement C3 114 mg/dL (88-201) 12/26/17 06:20 Complement C4 38 mg/dL (10-40) 12/26/17 06:20 A. baumannii (PCR) Not Detected (Not Detect) 12/09/17 15:13 Yolanda albicans (PCR) Not Detected (Not Detect) 12/09/17 15:13 C. glabrata (PCR) Not Detected (Not Detect) 12/09/17 15:13 C. krusei (PCR) Not Detected (Not Detect) 12/09/17 15:13 C. parapsilosis (PCR) Not Detected (Not Detect) 12/09/17 15:13 C. tropicalis (PCR) Not Detected (Not Detect) 12/09/17 15:13 Enterobacteriac sp PCR Not Detected (Not Detect) 12/09/17 15:13 E. cloacae complex PCR Not Detected (Not Detect) 12/09/17 15:13 Enterococcus sp PCR Not Detected (Not Detect) 12/09/17 15:13 E. coli (PCR) Not Detected (Not Detect) 12/09/17 15:13 H. influenzae (PCR) Not Detected (Not Detect) 12/09/17 15:13 Hep Bs Antigen Nonreactive (Nonreactive) 12/14/17 11:03 Hep Bs Antibody 0.00 mIU/mL 12/14/17 11:03 Klebsiella oxytoca PCR Not Detected (Not Detect) 12/09/17 15:13 Klebsiella pneumoniae Not Detected (Not Detect) 12/09/17 15:13 List. monocytogenes PCR Not Detected (Not Detect) 12/09/17 15:13 N. meningitidis (PCR) Not Detected (Not Detect) 12/09/17 15:13 Proteus species (PCR) Not Detected (Not Detect) 12/09/17 15:13 Serratia marcescens PCR Not Detected (Not Detect) 12/09/17 15:13 Staphylococcus sp PCR DETECTED (Not Detect) A 12/09/17 15:13 Staph aureus (PCR) Not Detected (Not Detect) 12/09/17 15:13 mecA-Methicil Res Gene DETECTED (Not Detect) A 12/09/17 15:13 Streptococcus sp PCR Not Detected (Not Detect) 12/09/17 15:13 Group A Strep DNA Not Detected (Not Detect) 12/09/17 15:13 Group B Strep (PCR) Not Detected (Not Detect) 12/09/17 15:13 Strep pneumoniae (PCR) Not Detected (Not Detect) 12/09/17 15:13 P. aeruginosa (PCR) Not Detected (Not Detect) 12/09/17 15:13 Lisbeth/B-Vanco Res Genes Not Detected (Not Detect) 12/09/17 15:13 KPC (blaKPC) Detect PCR Not Detected (Not Detect) 12/09/17 15:13 Specimen Rejected Hemolyzed 12/13/17 06:34 - Impressions Impressions Guidance Ultrasound 12/26/17 00:00 IMPRESSION: Successful ultrasound and fluoroscopy guided tunneled catheter placement . D/ / Travis Goodson MD / Travis Goodson MD Interpreting Provider: Travis Goodson MD Insertion Tunneled Catheter 12/26/17 00:00 IMPRESSION: Successful ultrasound and fluoroscopy guided tunneled catheter placement . D/ / Travis Goodson MD / Travis Goodson MD Interpreting Provider: Travis Goodson MD Consult Discharge Plan - Plan Instructions: BiPAP, Hide Trimmer (GEN) Referrals: Wale Lam DO [Primary Care Provider] - (PATIENT IS GOING TO ECF NO PCP APPOINTMENT NEEDED)
[2017-12-27 15:43] LABS: Thyroid Stimulating Hormone 2.061 mcIU/mL (0.340-5.600)
--- NOTE | 2017-12-27 17:27 | Nephrology Progress Note ---
Date of Encounter: 12/27/17 Time of Encounter: 12:00 - Assessment and Plan (1) Acute kidney injury Status: Acute s/p HD yesterday, next Hd planned tomorrow. SCr improved after HD yesterday but no signs of renal recovery noted. No UOP documented in the past 24hrs s/p permcath, no need from a renal standpoint for medical stay at this point. HD can be provided to pt even in 1A if needed or outpatient if ECF placement planned. Continue to avoid nephrotoxins if possible (2) Anemia Status: Chronic Transfusion parameters per primary team Qualifiers: Anemia type: unspecified type Qualified Code(s): D64.9 - Anemia, unspecified (3) CKD (chronic kidney disease) stage 4, GFR 15-29 ml/min Status: Chronic Baseline GFR in the 20s (4) Depressive disorder, not elsewhere classified Status: Acute per psych Subjective Principal diagnosis: NSTEMI Interval history: Pt seen and examined resting comfortably. No overnight issues. Objective - Vital Signs Vital signs: Vital Signs Temp Pulse Resp BP Pulse Ox 12/27/17 15:26 98.9 F 87 17 112/67 94 12/27/17 11:16 98.5 F 112 18 104/69 96 12/27/17 07:58 97 12/27/17 07:02 98.6 F 77 17 104/64 97 12/27/17 03:25 98.8 F 71 16 101/54 97 12/27/17 01:40 99.6 F 98 16 92/59 97 12/26/17 22:19 98/64 12/26/17 22:15 99.3 F 116 16 93/63 98 Intake and Output 12/27/17 12/27/17 12/27/17 07:59 15:59 23:59 Intake Total 0 / 0 480 / 480 Output Total 0 / 0 Balance 0 / 0 480 / 480 Intake: Oral 0 / 0 480 / 480 Output: Urine 0 / 0 Other: Meal Breakfast Percent of Meal Consumed 100% Stool Size Moderate Stool Color Brown # Bowel Movement Diapers 1 Blood Glucose* 91 237 131 - General Appearance General appearance: Present: chronically ill EENT: Present: ATNC, mucous membranes moist Neck: Present: no JVD, supple Respiratory: Present: clear Cardiology: Present: no edema, normal S1, normal S2 Dialysis Vascular Access: Venous Catheter (permcath) Gastrointestinal: Present: no tenderness, no guarding Integumentary: Present: warm and dry Neurologic: Present: no focal deficit Musculoskeletal: Present: no deformities Psychiatric: Present: cooperative - Lab 12/30/17 04:11 12/30/17 04:11 Most recent lab results Calcium 8.5 mg/dL (8.6-10.3) L 12/27/17 06:01 Phosphorus 2.1 mg/dL (2.7-4.5) L 12/10/17 00:46 Magnesium 1.9 mg/dL (1.6-2.6) 12/11/17 05:40 Urine Creatinine 79 mg/dL 12/10/17 15:45 Urine Sodium 72.1 mEq/L 12/10/17 15:45 - VTE Documentation of Mechanical Device: Intermittent pneumatic compression device Consult Discharge Plan - Plan Instructions: Urinary Tract Infection in Women (DC), Sepsis (DC), Acute Delirium (DC), BiPAP, Lumber Sorter (GEN) Additional Instructions: Please follow with her primary care physician within one week of discharge. Take all medications as prescribed. Please make an effort to ensure that she were eating and drinking enough as this may cause you to become sick again. Referrals: Wale Lam DO [Primary Care Provider] - (PATIENT IS GOING TO [facility] NO PCP APPOINTMENT NEEDED) Prescriptions: Escitalopram [Lexapro] 10 mg PO DAILY #20 tablet Memantine [Namenda] 10 mg PO BID #10 tablet
[2017-12-28] MEDS: 0.9 % Sodium Chloride 1,000 ML IVC SCH (02:18)
[2017-12-28 04:38] LABS: Hematocrit 26.4 % (35.3-44.9); Hemoglobin 7.7 g/dL (11.5-15.4); Mean Corpuscular HGB Conc 29.2 g/dL (31.6-35.5); Mean Corpuscular Hemoglobin 27.3 pg (28.0-33.3); Mean Corpuscular Volume 93.6 fL (83.0-100.0); Mean Platelet Volume 9.5 fL (9.4-12.4); Platelet Count 285 K/mcL (140-400); Red Blood Count 2.82 M/mcL (3.82-4.97); Red Cell Distribution Width 16.8 % (11.5-14.5)
[2017-12-28 04:59] LABS: Calcium 8.2 mg/dL (8.6-10.3); Potassium 3.5 mEq/L (3.5-5.1)
[2017-12-28] MEDS: *HR* Heparin 5,000 UNIT/ML VIAL SQ SCH ×2 (05:51→17:25)
[2017-12-28] MEDS ORDERED: 0.9 % Sodium Chloride 250 ML IVC PRN (08:14)
[2017-12-28] MEDS ORDERED: *HR* Heparin 10,000 UNIT/10 ML VIAL IV PRN (08:14)
[2017-12-28] MEDS ORDERED: 0.9 % Sodium Chloride 1,000 ML PRIME SCH (08:15)
[2017-12-28] MEDS ORDERED: 0.9 % Sodium Chloride 1,000 ML ONE (09:16)
[2017-12-28] MEDS: Insulin LISPRO 300 UNITS/3 ML VIAL SQ SCH ×4 (09:19→20:30)
[2017-12-28] MEDS: Insulin DETEMIR 100 UNIT/ML X5UNITS SQ SCH (10:10)
[2017-12-28] MEDS: Aspirin 325 MG TABLET PO SCH (10:10)
[2017-12-28] MEDS: Ascorbic Acid 500 MG TABLET PO SCH ×2 (10:10→20:29)
[2017-12-28] MEDS: amLODIPine 5 MG TABLET PO SCH (10:11)
[2017-12-28] MEDS: Metoprolol XL (24 HR) Succ 25 MG TAB.ER.24H PO SCH (10:11)
--- NOTE | 2017-12-28 12:15 | Internal Med Progress Note ---
Hospitalist Progress Note - Encounter Date of Encounter: 12/28/17 Time of Encounter: 09:00 - Subjective Interval History: Pt still not talk much but state to me that she is tired. Still has poor intake. Per psych, antidepressive med started. - Exam Vitals: Temp Pulse Resp BP Pulse Ox 98.6 F 84 18 122/72 97 12/28/17 11:50 12/28/17 11:50 12/28/17 11:50 12/28/17 12:00 12/28/17 07:15 Exam: Constitutional: Alert, in no acute distress , disheveled HEENT: central line right side of neck, Normocephalic, atraumatic Heart: Normal, regular rate and rhythm, no murmurs Lungs: breath sounds equal at all lungs lobes, no wheezes, rales, or rhonchi Abdomen: Soft, nondistended, obese, mild abdominal tenderness at the left lower quadrant Extremities: multiple toe amputations bilaterally feet, No clubbing, Skin: Skin warm and dry, no lesions, no rashes, no jaundice, vascular changes at bilateral lower legs Neurologic: Cooperative with exam Psych: not very communicative, not answering questions completely. - Assessment and Plan (1) Hypertension Current Visit: No Status: Chronic Assessment and Plan: Well controlled with 75 mg toprolol xl (2) Type 2 diabetes mellitus Current Visit: No Status: Chronic Assessment and Plan: Glucose 77 this morning, DC levemir, keep SSI only. (3) Chronic systolic heart failure Current Visit: No Status: Chronic Assessment and Plan: History of CHF with most recent echo at admission. Her EF is 30% with moderate LV diastolic dysfunction. No evidence of acute exacerbation. - On BB, will add low dose of ACEI as pt is already on HD (previously hold for renal function) (4) Pneumonia Current Visit: Yes Status: Ruled-out Assessment and Plan: CXR/CT was concerning for infiltrates on B/L basal regions, possible aspiration pneumonia. Completed abx on 12/18 Recommended: thin liquids and advanced soft texture diet (5) Sepsis Current Visit: Yes Status: Resolved Assessment and Plan: Resolved. Was secondary to pneumonia and UTI. She is having good urinary output. She has completed her antibiotics on 12/18. Her past 4 blood cultures have been negative. No further workup needed (6) UTI (urinary tract infection) Current Visit: Yes Status: Resolved Assessment and Plan: History of recurrent UTIs. Recent urine culture grew cnadida albican. She has completed her medication regimen. (7) NSTEMI (non-ST elevated myocardial infarction) Current Visit: Yes Status: Acute Assessment and Plan: Likely due to demand ischemia. Continue aspirin and beta maggie. No current complaint of chest pain. (8) Catatonia Current Visit: Yes Status: Resolved Assessment and Plan: Patient still depressed. Seems start to talk but not much. Continue memantine 10mg PO BID (12/23). Psychiatry saw her and recommended lexapro and inpatient geriatric care. Lexapro started, will consult nutrinist for nutrition status and plan to d/c to psych unit. (9) Yolanda infection Current Visit: Yes Status: Resolved Assessment and Plan: urine culture: Candidda albicans (12/10). Pt was recently admitted for hematuria/ sepsis 2/2 UTI and was tx with Vanc and Cefepime, as per ID has had yolanda in the past in urine. Also yolanda in mouth and under skin folds. Plan: - ID was consulted, completed diflucan, last dose on 12/18. Nystatin swish and spit and topical - urology consulted for recurrent UTIs as they recommenced continued catheter drainage with plunkett and changing plunkett every 3-4 weeks. (10) Chronic anemia Current Visit: No Status: Chronic Assessment and Plan: Generally stable, due to ESRD. (11) Atrial flutter with rapid ventricular response Current Visit: Yes Status: Resolved Assessment and Plan: Currently rate controlled. Atrial flutter with RVR seen on biventriculr ICD. New diagnosis, since 12/09/17. Currently resolved, HR is within normal limits as she is on 75 mg of toprolol xl. Plan: - continue toprol XL of 75 mg. - avoiding cardizem in the setting of known EF 30%. - cardiology talked to family and have concluded anticoagulation risks out weight benefits (12) Obesity Current Visit: No Status: Chronic Assessment and Plan: BMI of 38.1. She is not eating at this time due to depressed mood. She will need more lifestyle modification counseling once her mood status is improved. (13) ESRD (end stage renal disease) on dialysis Current Visit: Yes Status: Acute Assessment and Plan: She presented with increased creatinine and developed ESRD. She is currently getting hemodialysis through right IJ temporary catheter and had a permenent catheter placed by IR. Nephrology consult appreciated. DVT Prophylaxis: Has risk of bleeding so not a good candidate for anti coagulants. EPCDs. - Time Spent with Patient Total time spent is greater than 50% in coordination of care (as documented) at patient's floor/unit and/or counseling patient: 30 min 25 - 35 minutes Plan of Care Discussed with: patient Internal Medicine: Result - Labs CBC & Chem 7: 12/28/17 04:07 12/28/17 04:07 Labs: Short CBC 12/28/17 Range/Units 04:07 WBC 6.9 (4.3-11.1) K/mcL Hgb 7.7 L (11.5-15.4) g/dL Hct 26.4 L (35.3-44.9) % Plt Count 285 (140-400) K/mcL BMP 12/27/17 12/28/17 06:01 04:07 Sodium 140 139 Potassium 3.7 3.5 Chloride 98 101 Carbon Dioxide 31 H 29 BUN 16 23 Creatinine 3.69 H 4.67 H Glucose 86 77 Calcium 8.5 L 8.2 L - ABG Interpretation ABG results: PT/INR, D-dimer PT 14.7 Seconds (9.4-12.1) H 12/27/17 06:01 - VTE Documentation of Mechanical Device: Intermittent pneumatic compression device Consult Discharge Plan - Plan Instructions: BiPAP, Budget Specialist (GEN) Referrals: Wale Lam DO [Primary Care Provider] - (PATIENT IS GOING TO ECF NO PCP APPOINTMENT NEEDED) (1) Hypertension Qualifiers: Hypertension type: essential hypertension Qualified Code(s): I10 - Essential (primary) hypertension (2) Type 2 diabetes mellitus Qualifiers: Diabetes mellitus intermediate insulin use: with intermediate use Diabetes mellitus complication status: with kidney complications Diabetes mellitus complication detail: with chronic kidney disease Chronic kidney disease stage: stage 4 (severe) Qualified Code(s): E11.22 - Type 2 diabetes mellitus with diabetic chronic kidney disease; N18.4 - Chronic kidney disease, stage 4 (severe ); Z79.4 - vermin exterminator (current) use of insulin (4) Pneumonia Qualifiers: Pneumonia type: due to unspecified organism Laterality: right Lung location : lower lobe of lung Qualified Code(s): J18.1 - Lobar pneumonia, unspecified organism (5) Sepsis Qualifiers: Sepsis type: sepsis due to unspecified organism Qualified Code(s): A41.9 - Sepsis, unspecified organism (6) UTI (urinary tract infection) Qualifiers: Urinary tract infection type: site unspecified Hematuria presence: without hematuria Qualified Code(s): N39.0 - Urinary tract infection, site not specified (12) Obesity Qualifiers: Obesity type: due to excess calories Obesity classification: adult class 3 ( BMI >= 40) Serious obesity comorbidity presence: with serious comorbidity Body mass index: BMI 40.0-44.9 Qualified Code(s): E66.01 - Morbid (severe) obesity due to excess calories; Z68.41 - Body mass index (BMI) 40.0-44.9, adult
[2017-12-28] MEDS: MICONAZOLE NITRATE 57 GM TUBE TP SCH ×2 (13:49→20:29)
[2017-12-28] MEDS: Nystatin POWDER 30 GM BOTTLE TP SCH ×2 (13:49→20:31)
--- NOTE | 2017-12-28 18:03 | Nephrology Progress Note ---
Date of Encounter: 12/28/17 Time of Encounter: 12:00 - Assessment and Plan (1) Acute kidney injury Status: Acute Continue HD with UF as tolerated. No signs of renal recovery yet s/p permcath, no need from a renal standpoint for medical stay at this point. HD can be provided to pt even in [address] [place] [address] facility or outpatient if ECF placement planned. Continue to avoid nephrotoxins if possible (2) Anemia Status: Chronic hgb noted down at 7.7 today Transfusion parameters per primary team Qualifiers: Anemia type: unspecified type Qualified Code(s): D64.9 - Anemia, unspecified (3) CKD (chronic kidney disease) stage 4, GFR 15-29 ml/min Status: Chronic Baseline GFR in the 20s (4) Depressive disorder, not elsewhere classified Status: Acute per psych Subjective Principal diagnosis: NSTEMI Interval history: Pt seen and examined on HD, answers questions but depressed, flat affect noted Objective - Vital Signs Vital signs: Vital Signs Temp Pulse Resp BP Pulse Ox 12/28/17 16:31 98.4 F 85 18 122/67 97 12/28/17 12:55 98.0 F 18 130/74 12/28/17 12:30 111/61 12/28/17 12:15 113/65 12/28/17 12:00 122/72 12/28/17 11:50 98.6 F 84 18 110/66 12/28/17 11:45 111/63 12/28/17 11:30 111/62 12/28/17 11:15 105/62 12/28/17 11:09 98.8 F 80 16 110/62 12/28/17 11:00 111/63 12/28/17 10:54 98.1 F 80 18 109/62 12/28/17 10:45 110/61 12/28/17 10:30 110/62 12/28/17 10:15 108/61 12/28/17 10:00 110/77 12/28/17 09:45 118/60 12/28/17 09:30 97.0 F L 17 91/52 12/28/17 07:15 97.7 F 81 18 163/66 97 12/28/17 05:37 98.4 F 79 16 118/71 96 12/28/17 02:22 96 12/28/17 00:30 98.9 F 77 16 116/61 96 12/27/17 21:01 99.3 F 81 16 101/87 98 Intake and Output 12/28/17 12/28/17 12/28/17 07:59 15:59 23:59 Intake Total 1000 / 1000 1070 / 1070 Output Total 2950 / 2950 Balance 1000 / 1000 -1880 / -1880 Intake: IV Fluids 1000 / 1000 0.9 % Sodium Chloride 1,000 ML 1000 / 1000 @ 75 mls/hr IVC .[id number] [facility] Rx #:[id number] Oral 120 / 120 Blood Product 350 / 350 Rbcs Leuko Poor As-1 Unit 350 / 350 [id number] Intake, Rinseback and Flushes 600 / 600 Output: Urine 0 / 0 Total Dialysis (HD) Output 2950 / 2950 Other: Meal Lunch Percent of Meal Consumed 50% Stool Size Moderate Stool Consistency loose Stool Color Black Weight 96.9 kg Blood Glucose* 99 92 138 Hemodialysis Net Fluid Removed 2000 (mL) Patient Weight 12/28/17 23:59 Weight 96.9 kg - General Appearance General appearance: Present: chronically ill EENT: Present: ATNC, mucous membranes moist Neck: Present: no JVD, supple Respiratory: Present: clear Cardiology: Present: no edema, normal S1, normal S2 Dialysis Vascular Access: Venous Catheter (permcath) Gastrointestinal: Present: no tenderness, no guarding Integumentary: Present: warm and dry Neurologic: Present: no focal deficit Musculoskeletal: Present: no deformities Psychiatric: Present: depressed, cooperative - Lab 12/30/17 04:11 12/30/17 04:11 Most recent lab results Calcium 8.2 mg/dL (8.6-10.3) L 12/28/17 04:07 Phosphorus 2.1 mg/dL (2.7-4.5) L 12/10/17 00:46 Magnesium 1.9 mg/dL (1.6-2.6) 12/11/17 05:40 Urine Creatinine 79 mg/dL 12/10/17 15:45 Urine Sodium 72.1 mEq/L 12/10/17 15:45 - VTE Documentation of Mechanical Device: Intermittent pneumatic compression device Consult Discharge Plan - Plan Instructions: Urinary Tract Infection in Women (DC), Sepsis (DC), Acute Delirium (DC), BiPAP, Information Systems Security Officer (GEN) Additional Instructions: Please follow with her primary care physician within one week of discharge. Take all medications as prescribed. Please make an effort to ensure that she were eating and drinking enough as this may cause you to become sick again. Referrals: Wale Lam DO [Primary Care Provider] - (PATIENT IS GOING TO [facility] NO PCP APPOINTMENT NEEDED) Prescriptions: Escitalopram [Lexapro] 10 mg PO DAILY #20 tablet Memantine [Namenda] 10 mg PO BID #10 tablet
[2017-12-29 05:16] LABS: Hematocrit 28.7 % (35.3-44.9); Hemoglobin 8.4 g/dL (11.5-15.4); Mean Corpuscular HGB Conc 29.3 g/dL (31.6-35.5); Mean Corpuscular Hemoglobin 26.7 pg (28.0-33.3); Mean Corpuscular Volume 91.1 fL (83.0-100.0); Mean Platelet Volume 9.8 fL (9.4-12.4); Platelet Count 296 K/mcL (140-400); Red Blood Count 3.15 M/mcL (3.82-4.97); Red Cell Distribution Width 16.7 % (11.5-14.5)
[2017-12-29 05:34] LABS: Calcium 8.4 mg/dL (8.6-10.3); Potassium 3.5 mEq/L (3.5-5.1)
[2017-12-29] MEDS: *HR* Heparin 5,000 UNIT/ML VIAL SQ SCH ×2 (06:31→17:28)
[2017-12-29] MEDS: Aspirin 325 MG TABLET PO SCH (07:48)
[2017-12-29] MEDS: Metoprolol XL (24 HR) Succ 25 MG TAB.ER.24H PO SCH (07:48)
[2017-12-29] MEDS: Ascorbic Acid 500 MG TABLET PO SCH ×2 (07:50→21:37)
[2017-12-29] MEDS: Insulin LISPRO 300 UNITS/3 ML VIAL SQ SCH ×4 (07:50→21:40)
[2017-12-29] MEDS: MICONAZOLE NITRATE 57 GM TUBE TP SCH ×2 (09:46→21:39)
[2017-12-29] MEDS: Nystatin POWDER 30 GM BOTTLE TP SCH ×2 (09:46→21:38)
--- NOTE | 2017-12-29 13:15 | Internal Med Progress Note ---
<Lorraine Flanagan - Last Filed: 12/29/17 13:16> Hospitalist Progress Note - Encounter Date of Encounter: 12/29/17 Time of Encounter: 08:30 - Subjective Interval History: Ms. Bentley is a 72 year old female with PMH of T2DM, HTN, HDL, catatonia, chronic systolic heart failure, CKD-3, recurrent UTI, and chronic psychiatry problems who had an extensive hospital stay here during her last hospitalization and was discharged on 12/08. During her last admission she was admitted with sepsis, due to URI later she developed shock, acute respiratory failure, got intubated and she also happened to have DVT for which she was started on Anti coag. pt developed hematuria so anticoagulants were stopped and placed IVC filter. Pt mentation was never improved, she was always non verbal and severe cataonic appearance. She was evaluated by psych who recommend ECT treatment and she was d/c to ECF on 12/08/17. Now she was sent back to ER on 12/09/17 with worsening AMS. At this admission she was found to have a NSTEMI with Trop @ 2.16, UTI and TENISHA on CKD-3 with cr @ 3.48. She finished all her antibiotic course for UTI. Her NSTEMI was due to sepsis, cardiology recommended medical management. She developed ESRD started getting hemodialysis now. She is resting comfortably. No events overnight. Today she is more communicative than previous days. She complained of some discomfort of her sacral ulcer, which per has been chronic. I looked at it and nursing informed me that have been treating it with ointments and daily turns but she refuses to be turned at times. Today she is more agreeable to be turned. She denied fever, chills, nausea, emesis, shortness of breath or chest pain. - Exam Vitals: Temp Pulse Resp BP Pulse Ox 98.9 F 79 16 101/58 93 12/29/17 10:51 12/29/17 10:51 12/29/17 10:51 12/29/17 10:51 12/29/17 10:51 Exam: Constitutional: Alert, in no acute distress , disheveled HEENT: central line right side of neck, Normocephalic, atraumatic Heart: Normal, regular rate and rhythm, no murmurs Lungs: breath sounds equal at all lungs lobes, no wheezes, rales, or rhonchi Abdomen: Soft, nondistended, obese Extremities: multiple toe amputations bilaterally feet, No clubbing, Skin: Skin warm and dry, no lesions, no rashes, no jaundice, vascular changes at bilateral lower legs Neurologic: Cooperative with exam Psych: not very communicative, not answering questions completely. - Assessment and Plan (1) ESRD (end stage renal disease) on dialysis Current Visit: Yes Status: Acute Assessment and Plan: She presented with increased creatinine and developed ESRD. She is currently getting hemodialysis through right IJ temporary catheter and had a permenent catheter placed by IR. Nephrology notes hemodialysis can be provided in psych facility once placement is confirmed. (2) Catatonia Current Visit: Yes Status: Resolved Assessment and Plan: Patient still depressed. Seems start to talk but not much. Continue memantine 10mg PO BID (12/23). Psychiatry saw her and recommended lexapro and inpatient geriatric care. Her mood was much more improved today than the past a few days. Continue lexapro and placement for inpatient geriatric psychiatry. (3) Hypertension Current Visit: No Status: Chronic Assessment and Plan: Well controlled with 75 mg toprolol xl (4) Type 2 diabetes mellitus Current Visit: No Status: Chronic Assessment and Plan: Levemir was discontinued due to her low glucose. Today glucose was 119. -Continue to monitor -Use sliding scale as anti glycemic replacement (5) Chronic systolic heart failure Current Visit: No Status: Chronic Assessment and Plan: History of CHF with most recent echo at admission. Her EF is 30% with moderate LV diastolic dysfunction. No evidence of acute exacerbation. - On BB, will continue low dose of ACEI as pt is already on HD (previously held for renal function) (6) Pneumonia Current Visit: Yes Status: Ruled-out Assessment and Plan: CXR/CT was concerning for infiltrates on B/L basal regions, possible aspiration pneumonia. -Completed abx on 12/18 -Nutrition recommended: thin liquids and advanced soft texture diet (7) Sepsis Current Visit: Yes Status: Resolved Assessment and Plan: Resolved. Was secondary to pneumonia and UTI. She is having good urinary output. She has completed her antibiotics on 12/18. Her past 4 blood cultures have been negative. -No further workup needed (8) UTI (urinary tract infection) Current Visit: Yes Status: Resolved Assessment and Plan: History of recurrent UTIs. Recent urine culture grew canadida albican. She has completed fluconazole regimen on 12/18. (9) NSTEMI (non-ST elevated myocardial infarction) Current Visit: Yes Status: Acute Assessment and Plan: Likely due to demand ischemia. Continue aspirin and beta maggie. No current complaint of chest pain. (10) Shonna infection Current Visit: Yes Status: Resolved Assessment and Plan: urine culture: Candidda albicans (12/10). Pt was recently admitted for hematuria/ sepsis 2/2 UTI and was tx with Vanc and Cefepime, as per ID has had shonna in the past in urine. Also shonna in mouth and under skin folds. Plan: - ID was consulted, completed diflucan, last dose on 12/18. Nystatin swish and spit and topical - urology consulted for recurrent UTIs as they recommenced continued catheter drainage with plunkett and changing plunkett every 3-4 weeks. (11) Chronic anemia Current Visit: No Status: Chronic Assessment and Plan: The anemia is chronic due to her ESRD and has remained stable since her admission. Her stool was dark the past a few days and she is on daily iron supplement. -Continue to monitor (12) Atrial flutter with rapid ventricular response Current Visit: Yes Status: Resolved Assessment and Plan: Currently rate controlled. Atrial flutter with RVR seen on biventriculr ICD. New diagnosis, since 12/09/17. Currently resolved, HR is within normal limits as she is on 75 mg of toprolol xl. Plan: - continue toprol XL of 75 mg. - avoiding cardizem in the setting of known EF 30%. - cardiology talked to family and have concluded anticoagulation risks out weight benefits (13) Obesity Current Visit: No Status: Chronic Assessment and Plan: BMI of 38.1. She is not eating at this time due to depressed mood. She will need more lifestyle modification counseling once her mood status is improved. (14) Sacral decubitus ulcer, stage II Current Visit: Yes Status: Chronic Assessment and Plan: Per patient's she has chronic sacral decubitus ulcer due to her lack of mobility. Nursing has been aware of it and apply ointment daily. They have also tried to turn her but she has not been agreeable. -Continue turning Q4 -Apply collegenase ointment DVT Prophylaxis: Continue SubQ heparin as she has high risk of DVTs and has been on SubQ heparin for the past three days with stable hemoglobin. - Time Spent with Patient Total time spent is greater than 50% in coordination of care (as documented) at patient's floor/unit and/or counseling patient: 25 - 35 minutes Plan of Care Discussed with: patient Internal Medicine: Result - Labs CBC & Chem 7: 12/29/17 04:25 12/29/17 04:25 Labs: Short CBC 12/29/17 Range/Units 04:25 WBC 7.5 (4.3-11.1) K/mcL Hgb 8.4 L (11.5-15.4) g/dL Hct 28.7 L (35.3-44.9) % Plt Count 296 (140-400) K/mcL BMP 12/29/17 04:25 Sodium 139 Potassium 3.5 Chloride 99 Carbon Dioxide 29 BUN 15 Creatinine 3.30 H Glucose 119 H Calcium 8.4 L - ABG Interpretation ABG results: PT/INR, D-dimer PT 14.7 Seconds (9.4-12.1) H 12/27/17 06:01 - VTE Documentation of Mechanical Device: Intermittent pneumatic compression device Consult Discharge Plan - Plan Instructions: BiPAP, Talent Development Consultant (GEN) Referrals: Wale Lam DO [Primary Care Provider] - (PATIENT IS GOING TO ECF NO PCP APPOINTMENT NEEDED) <Meghan Sánchez - Last Filed: 12/29/17 15:19> Hospitalist Progress Note - Encounter Date of Encounter: 12/29/17 - Exam Vitals: Temp Pulse Resp BP Pulse Ox 98.9 F 79 16 101/58 93 12/29/17 10:51 12/29/17 10:51 12/29/17 10:51 12/29/17 10:51 12/29/17 10:51 - Assessment and Plan (1) Hypertension Current Visit: No Status: Chronic (2) Type 2 diabetes mellitus Current Visit: No Status: Chronic (3) Chronic systolic heart failure Current Visit: No Status: Chronic (4) Pneumonia Current Visit: Yes Status: Ruled-out (5) Sepsis Current Visit: Yes Status: Resolved (6) UTI (urinary tract infection) Current Visit: Yes Status: Resolved (7) NSTEMI (non-ST elevated myocardial infarction) Current Visit: Yes Status: Acute (8) Catatonia Current Visit: Yes Status: Resolved (9) Shonna infection Current Visit: Yes Status: Resolved (10) Chronic anemia Current Visit: No Status: Chronic (11) Atrial flutter with rapid ventricular response Current Visit: Yes Status: Resolved (12) Obesity Current Visit: No Status: Chronic (13) ESRD (end stage renal disease) on dialysis Current Visit: Yes Status: Acute (14) Sacral decubitus ulcer, stage II Current Visit: Yes Status: Chronic - Time Spent with Patient Total time spent is greater than 50% in coordination of care (as documented) at patient's floor/unit and/or counseling patient: Internal Medicine: Result - Labs CBC & Chem 7: 12/29/17 04:25 12/29/17 04:25 Labs: Short CBC 12/29/17 Range/Units 04:25 WBC 7.5 (4.3-11.1) K/mcL Hgb 8.4 L (11.5-15.4) g/dL Hct 28.7 L (35.3-44.9) % Plt Count 296 (140-400) K/mcL BMP 12/29/17 04:25 Sodium 139 Potassium 3.5 Chloride 99 Carbon Dioxide 29 BUN 15 Creatinine 3.30 H Glucose 119 H Calcium 8.4 L - ABG Interpretation ABG results: PT/INR, D-dimer PT 14.7 Seconds (9.4-12.1) H 12/27/17 06:01 - Attending Attestation I have seen and examined this pt independently. I have discussed with resident physician Dr Flanagan regarding the management plan. Agree with the documentation. <Lorraine Flanagan - Last Filed: 12/29/17 13:16> (3) Hypertension Qualifiers: Hypertension type: essential hypertension Qualified Code(s): I10 - Essential (primary) hypertension (4) Type 2 diabetes mellitus Qualifiers: Diabetes mellitus group home insulin use: with group home use Diabetes mellitus complication status: with kidney complications Diabetes mellitus complication detail: with chronic kidney disease Chronic kidney disease stage: stage 4 (severe) Qualified Code(s): E11.22 - Type 2 diabetes mellitus with diabetic chronic kidney disease; N18.4 - Chronic kidney disease, stage 4 (severe ); Z79.4 - custodial (current) use of insulin (6) Pneumonia Qualifiers: Pneumonia type: due to unspecified organism Laterality: right Lung location : lower lobe of lung Qualified Code(s): J18.1 - Lobar pneumonia, unspecified organism (7) Sepsis Qualifiers: Sepsis type: sepsis due to unspecified organism Qualified Code(s): A41.9 - Sepsis, unspecified organism (8) UTI (urinary tract infection) Qualifiers: Urinary tract infection type: site unspecified Hematuria presence: without hematuria Qualified Code(s): N39.0 - Urinary tract infection, site not specified (13) Obesity Qualifiers: Obesity type: due to excess calories Obesity classification: adult class 3 ( BMI >= 40) Serious obesity comorbidity presence: with serious comorbidity Body mass index: BMI 40.0-44.9 Qualified Code(s): E66.01 - Morbid (severe) obesity due to excess calories; Z68.41 - Body mass index (BMI) 40.0-44.9, adult <Meghan Sánchez - Last Filed: 12/29/17 15:19> (1) Hypertension Qualifiers: Hypertension type: essential hypertension Qualified Code(s): I10 - Essential (primary) hypertension (2) Type 2 diabetes mellitus Qualifiers: Diabetes mellitus manager intermediate insulin use: with manager intermediate use Diabetes mellitus complication status: with kidney complications Diabetes mellitus complication detail: with chronic kidney disease Chronic kidney disease stage: stage 4 (severe) Qualified Code(s): E11.22 - Type 2 diabetes mellitus with diabetic chronic kidney disease; N18.4 - Chronic kidney disease, stage 4 (severe ); Z79.4 - custodial (current) use of insulin (4) Pneumonia Qualifiers: Pneumonia type: due to unspecified organism Laterality: right Lung location : lower lobe of lung Qualified Code(s): J18.1 - Lobar pneumonia, unspecified organism (5) Sepsis Qualifiers: Sepsis type: sepsis due to unspecified organism Qualified Code(s): A41.9 - Sepsis, unspecified organism (6) UTI (urinary tract infection) Qualifiers: Urinary tract infection type: site unspecified Hematuria presence: without hematuria Qualified Code(s): N39.0 - Urinary tract infection, site not specified (12) Obesity Qualifiers: Obesity type: due to excess calories Obesity classification: adult class 3 ( BMI >= 40) Serious obesity comorbidity presence: with serious comorbidity Body mass index: BMI 40.0-44.9 Qualified Code(s): E66.01 - Morbid (severe) obesity due to excess calories; Z68.41 - Body mass index (BMI) 40.0-44.9, adult
--- NOTE | 2017-12-29 15:50 | Nephrology Progress Note ---
Date of Encounter: 12/29/17 Time of Encounter: 12:00 - Assessment and Plan (1) Acute kidney injury Status: Acute s/p HD yesterday, next HD planned tomorrow UOP none documented in the past 24hrs Awaiting placement at [facility], would recieve HD close by in [place] I believe with plans to transfer back to [facility] once released back to [facility] Continue to avoid nephrotoxins if possible (2) Anemia Status: Chronic Hgb noted at 8.4, will monitor Transfusion parameters per primary team Qualifiers: Anemia type: unspecified type Qualified Code(s): D64.9 - Anemia, unspecified (3) CKD (chronic kidney disease) stage 4, GFR 15-29 ml/min Status: Chronic Baseline GFR in the 20s (4) Depressive disorder, not elsewhere classified Status: Acute per psych Subjective Principal diagnosis: NSTEMI Interval history: Pt seen and examined s/p HD yesterday with present who is now open to inpatient [facility] stay after discharge Objective - Vital Signs Vital signs: Vital Signs Temp Pulse Resp BP Pulse Ox 12/29/17 10:51 98.9 F 79 16 101/58 93 12/29/17 06:47 99.1 F 90 16 115/66 96 12/29/17 04:05 98.1 F 80 17 113/71 92 12/28/17 23:00 99.0 F 81 18 115/65 95 12/28/17 19:56 99.0 F 83 18 104/61 96 12/28/17 16:31 98.4 F 85 18 122/67 97 Intake and Output 12/28/17 12/29/17 12/29/17 23:59 07:59 15:59 Intake Total 240 / 240 Balance 240 / 240 Intake: Oral 240 / 240 Other: Meal Dinner Percent of Meal Consumed 0% Weight 98.1 kg Blood Glucose* 141 141 250 - General Appearance General appearance: Present: chronically ill EENT: Present: ATNC, mucous membranes moist Neck: Present: no JVD, supple Respiratory: Present: clear Cardiology: Present: no edema, normal S1, normal S2 Dialysis Vascular Access: Venous Catheter (permcath) Gastrointestinal: Present: no tenderness, no guarding Integumentary: Present: warm and dry Neurologic: Present: no focal deficit Musculoskeletal: Present: no deformities Psychiatric: Present: depressed, cooperative - Lab 12/30/17 04:11 12/30/17 04:11 Most recent lab results Calcium 8.4 mg/dL (8.6-10.3) L 12/29/17 04:25 Phosphorus 2.1 mg/dL (2.7-4.5) L 12/10/17 00:46 Magnesium 1.9 mg/dL (1.6-2.6) 12/11/17 05:40 Urine Creatinine 79 mg/dL 12/10/17 15:45 Urine Sodium 72.1 mEq/L 12/10/17 15:45 - VTE Documentation of Mechanical Device: Intermittent pneumatic compression device Consult Discharge Plan - Plan Instructions: Urinary Tract Infection in Women (DC), Sepsis (DC), Acute Delirium (DC), BiPAP, Internet Marketing Manager (GEN) Additional Instructions: Please follow with her primary care physician within one week of discharge. Take all medications as prescribed. Please make an effort to ensure that she were eating and drinking enough as this may cause you to become sick again. Referrals: Wale Lam DO [Primary Care Provider] - (PATIENT IS GOING TO [facility] NO PCP APPOINTMENT NEEDED) Prescriptions: Escitalopram [Lexapro] 10 mg PO DAILY #20 tablet Memantine [Namenda] 10 mg PO BID #10 tablet
[2017-12-29] MEDS ORDERED: Insulin DETEMIR 100 UNIT/ML X5UNITS SQ SCH (21:00)
[2017-12-30 04:41] LABS: Hematocrit 28.7 % (35.3-44.9); Hemoglobin 8.8 g/dL (11.5-15.4); Mean Corpuscular HGB Conc 30.7 g/dL (31.6-35.5); Mean Corpuscular Hemoglobin 27.4 pg (28.0-33.3); Mean Corpuscular Volume 89.4 fL (83.0-100.0); Mean Platelet Volume 9.7 fL (9.4-12.4); Platelet Count 339 K/mcL (140-400); Red Blood Count 3.21 M/mcL (3.82-4.97); Red Cell Distribution Width 16.2 % (11.5-14.5)
[2017-12-30 04:52] LABS: Calcium 8.6 mg/dL (8.6-10.3); Potassium 3.4 mEq/L (3.5-5.1)
[2017-12-30] MEDS: *HR* Heparin 5,000 UNIT/ML VIAL SQ SCH (05:19)
[2017-12-30] MEDS ORDERED: *HR* Heparin 10,000 UNIT/10 ML VIAL IV PRN (07:39)
[2017-12-30] MEDS ORDERED: 0.9 % Sodium Chloride 250 ML IVC PRN (07:39)
[2017-12-30] MEDS ORDERED: 0.9 % Sodium Chloride 1,000 ML PRIME SCH (07:45)
[2017-12-30] MEDS: Ascorbic Acid 500 MG TABLET PO SCH (08:24)
[2017-12-30] MEDS: Aspirin 325 MG TABLET PO SCH (08:24)
[2017-12-30] MEDS: Insulin LISPRO 300 UNITS/3 ML VIAL SQ SCH ×2 (08:24→12:06)
[2017-12-30] MEDS: Metoprolol XL (24 HR) Succ 25 MG TAB.ER.24H PO SCH (08:25)
[2017-12-30] MEDS: MICONAZOLE NITRATE 57 GM TUBE TP SCH (08:25)
[2017-12-30] MEDS: Nystatin POWDER 30 GM BOTTLE TP SCH (08:25)
[2017-12-30] MEDS ORDERED: 0.9 % Sodium Chloride 1,000 ML ONE (08:39)
--- NOTE | 2017-12-30 13:46 | Consult Note ---
Date of Encounter: 12/30/17 Time of Encounter: 13:05 Assessment & Recommendation (1) Depressive disorder, not elsewhere classified Current visit: Yes Status: Acute Assessment & Recommendation: please increase escitalopram to 10 mg . ECF placement. (2) Catatonic disorder due to known physiological condition Current visit: Yes Status: Acute History of Present Illness Patient: known to practice within the last 3 years Requesting Physician: Meghan Sánchez MD Reason for consult: follow up History of present illness: Ms. Bentley is a 72 year old female was seen today at her bedside for follow up. She was more verbal , stated my butt hurts , she had more affect and still selectively mute , catatonia has improved but she still has been non verbal and not eating , her lunch was there and she had not touched it . most of the answer given by nodding her head. A/P increase escitalopram to 10 mg recommend ECF placement , pt unable to care for self at present. Thank you for consult and involving in her care. CC: Meghan Sánchez MD Past Med Surg Social Fam HX - Past Medical History Medical history: cardiomyopathy, CHF, coronary artery disease, CVA, diabetes, GERD, hyperlipidemia, hypertension, kidney stones, myocardial infarction, peripheral artery disease, renal disease, TIA - Past Surgical History Surgical History: appendectomy, breast surgery, carotid endarterectomy, cholecystectomy, coronary bypass (CABG), hysterectomy, pacemaker/AICD, LE vascular intervention - Social History Smoking Status: Former smoker Smokeless Tobacco Status: No Alcohol use: none Drug use: none - Family History Mother Living Status: Hx Family Cardiac Disorders: Yes (HTN) Hx Family Endocrine Disorder: Yes (diabetes) Hx Family Neurologic Disorders: Yes (2 strokes) Father Living Status: Hx Family Cardiac Disorders: Yes Hx Family Respiratory Disorders: Yes Hx Family Neurologic Disorders: Yes Medications & Allergies Aspirin Enteric Coated [Aspirin EC] 81 mg PO DAILY 08/20/15 [History] Metoprolol XL (24 HR) Succ [Toprol Xl] 50 mg PO DAILY #30 tab.er.24h 01/07/16 [ Rx] Insulin Glargine,Hum.rec.anlog [Touashlyo Solostar] 45 units SQ HS 06/10/16 [ History] Multivit-Minerals/Folic/Ginkgo [One Daily For Women 50+ Adv Tb] 1 tab PO DAILY 06/10/16 [History] Furosemide [Lasix] 40 mg PO QAM 10/03/16 [History] Insulin ASPART [Novolog Flexpen] 25 unit SQ TIDWM 10/03/16 [History] Clopidogrel [Plavix] 75 mg PO DAILY 11/03/17 [History] Oxybutynin Chloride [Ditropan Xl] 10 mg PO DAILY 11/03/17 [History] Rosuvastatin Calcium 10 mg PO HS 11/03/17 [History] Ascorbic Acid [Vitamin C] 500 mg PO BID 11/17/17 [History] Ergocalciferol (VITAMIN D2) [Vitamin D2] 50,000 unit PO QWEEK 11/17/17 [History] Dextromethorphan HBr/Quinidine [Nuedexta 20-10 mg Capsule] 1 each PO DAILY 30 Days #30 capsule 12/08/17 [Rx] Ferrous Sulfate 325 mg PO DAILY@0800 tablet 12/08/17 [Rx] LORazepam [Ativan] 1 mg PO TID 6 Days #18 tablet 12/08/17 [Rx] Miconazole 2% ointment [Aloe [place] Antifungal Ointment] 1 appl TP DAILY tube [Rx] amLODIPine [Norvasc] 10 mg PO DAILY tablet 12/08/17 [Rx] 3 Allergy/AdvReac Type Severity Reaction Status Date / Time venom-honey bee Allergy Severe Swelling Verified 11/03/17 10:53 [bee venom (honey bee)] of Lip/Tongue/Throat Cortisone Allergy Mild Hives Verified 11/03/17 10:53 Penicillins Allergy See Verified 11/03/17 10:53 Comments NSAIDS (Non-Steroidal AdvReac Mild UPSET Verified 11/03/17 10:53 Anti-Inflamma STOMACH cefazolin [From Ancef] AdvReac Hives Verified 11/03/17 10:53 Qzbsxfy-Mib-Rxr Reductase AdvReac Muscle Pain Verified 11/03/17 10:53 Inhibitor [Statins] GRAPE FLAVOR Allergy Mild Swelling Uncoded 11/03/17 10:53 of the Eye Review of Systems Psychiatric: Reports: depression, other Psychiatry Exam - Constitutional Vitals: Temp Pulse Resp BP Pulse Ox 97.8 F 77 18 118/61 91 12/30/17 13:26 12/30/17 07:08 12/30/17 13:26 12/30/17 13:26 12/30/17 07:08 General appearance: obese - Psychiatric Level of alertness: Alert Behavior: withdrawn Eye Contact: Minimal Contact Affect description: constricted Results - Labs Labs: Laboratory Last Values WBC 8.6 K/mcL (4.3-11.1) 12/30/17 04:11 RBC 3.21 M/mcL (3.82-4.97) L 12/30/17 04:11 Hgb 8.8 g/dL (11.5-15.4) L 12/30/17 04:11 Hct 28.7 % (35.3-44.9) L 12/30/17 04:11 MCV 89.4 fL (83.0-100.0) 12/30/17 04:11 MCH 27.4 pg (28.0-33.3) L 12/30/17 04:11 MCHC 30.7 g/dL (31.6-35.5) L 12/30/17 04:11 RDW 16.2 % (11.5-14.5) H 12/30/17 04:11 Plt Count 339 K/mcL (140-400) 12/30/17 04:11 MPV 9.7 fL (9.4-12.4) 12/30/17 04:11 Immature Gran % 0.5 % (0-4) 12/27/17 06:01 Seg Neutrophils % 70.4 % 12/27/17 06:01 Band Neutrophils % 6.0 % (0-4) H 12/17/17 03:35 Lymphocytes % 12.1 % 12/27/17 06:01 Monocytes % 14.1 % 12/27/17 06:01 Eosinophils % 2.4 % 12/27/17 06:01 Basophils % 0.5 % 12/27/17 06:01 Metamyelocytes % 2.0 % (0) H 12/17/17 03:35 Neutrophils # 6.1 K/mcL (1.6-8.9) 12/27/17 06:01 Lymphocytes # 1.1 K/mcL (0.6-4.6) 12/27/17 06:01 Monocytes # 1.2 K/mcL (0.0-1.3) 12/27/17 06:01 Eosinophils # 0.2 K/mcL (0.0-0.6) 12/27/17 06:01 Basophils # 0.0 K/mcL (0.0-0.2) 12/27/17 06:01 Nucleated RBCs/100 WBC 0.2 /100 WBC (0) H 12/20/17 03:38 Platelet Estimate Normal (Normal) 12/17/17 03:35 Immature Plt Fraction 3.9 % (1.1-6.1) 12/22/17 03:23 Anisocytosis 1+ (Not Present) A 12/17/17 03:35 PT 14.7 Seconds (9.4-12.1) H 12/27/17 06:01 INR 1.3 12/27/17 06:01 APTT 71.2 Seconds (26.0-36.0) H 12/10/17 02:55 Heparin Anti-Xa, Unfract 0.43 IU/mL (0.30-0.70) 12/12/17 06:29 VBG pH 7.45 pH Units (7.32-7.42) H 12/09/17 15:36 VBG pCO2 39 mmHg (41-51) L 12/09/17 15:36 VBG pO2 100 mmHg (25-50) H 12/09/17 15:36 VBG HCO3 27 mEq/L (21-27) 12/09/17 15:36 Sodium 138 mEq/L (136-145) 12/30/17 04:11 Potassium 3.4 mEq/L (3.5-5.1) L 12/30/17 04:11 Chloride 99 mEq/L (98-107) 12/30/17 04:11 Carbon Dioxide 28 mEq/L (23-29) 12/30/17 04:11 BUN 24 mg/dL (8-23) H 12/30/17 04:11 Creatinine 4.78 mg/dL (0.60-1.20) H 12/30/17 04:11 Est GFR ( Amer) 11 (> 60) L 12/30/17 04:11 Est GFR (Non-Af Amer) 9 (> 60) L 12/30/17 04:11 BUN/Creatinine Ratio 5 (6-26) L 12/30/17 04:11 Glucose 163 mg/dL (70-105) H 12/30/17 04:11 POC Glucose 132 mg/dL (70-99) H 12/30/17 10:49 Calculated Osmolality 294 (280-300) 12/30/17 04:11 Lactic Acid 0.6 mmol/L (0.5-2.2) 12/22/17 12:21 Uric Acid 6.1 mg/dL (2.3-7.6) 12/10/17 15:22 Calcium 8.6 mg/dL (8.6-10.3) 12/30/17 04:11 Phosphorus 2.1 mg/dL (2.7-4.5) L 12/10/17 00:46 Magnesium 1.9 mg/dL (1.6-2.6) 12/11/17 05:40 Iron 36 mcg/dL (50-170) L 12/12/17 06:29 % Saturation 20 % (15-50) 12/12/17 06:29 Transferrin 130 mg/dL (203-362) L 12/12/17 06:29 Total Bilirubin 0.5 mg/dL (0.3-1.0) 12/23/17 03:40 Direct Bilirubin 0.3 mg/dL (0.0-0.2) H 12/09/17 13:10 Indirect Bilirubin 0.3 mg/dL (0.0-1.2) 12/09/17 13:10 AST 12 Units/L (13-39) L 12/23/17 03:40 ALT 7 Units/L (7-52) 12/23/17 03:40 Alkaline Phosphatase 89 Units/L (34-104) 12/23/17 03:40 Ammonia 20 mcmol/L (16-53) 12/09/17 13:51 Creatine Kinase 80 Units/L (30-223) 12/10/17 15:22 Troponin I 0.86 ng/mL (< 0.04) H* 12/10/17 06:31 Serum Total Protein 6.2 g/dL (6.4-8.9) L 12/23/17 03:40 Albumin 2.5 g/dL (3.5-5.7) L 12/23/17 03:40 Globulin 3.7 g/dL (2.4-3.5) H 12/23/17 03:40 Albumin/Globulin Ratio 0.7 (1.1-2.2) L 12/23/17 03:40 Prealbumin 10.3 mg/dL (17.0-34.0) L 12/09/17 18:56 Amylase 20 Units/L (29-103) L 12/13/17 16:32 Lipase 23 Units/L (11-82) 12/13/17 16:32 Beta-Hydroxybutyric Acd 0.23 mmol/L (0.02-0.27) 12/09/17 15:13 TSH 2.061 mcIU/mL (0.340-5.600) 12/27/17 06:01 Urine Color Yellow (Yellow) 12/22/17 15:15 Urine Clarity Turbid (Clear) A 12/22/17 15:15 Urine pH 7.5 pH Units (5.0-8.0) 12/22/17 15:15 Ur Specific [place] 1.012 (1.010-1.025) 12/22/17 15:15 Urine Protein >=300 mg/dL (Neg-Trace) H 12/22/17 15:15 Urine Glucose (UA) Normal mg/dL (Normal) 12/22/17 15:15 Urine Ketones Trace mg/dL (Negative) H 12/22/17 15:15 Urine Blood Moderate (Negative) H 12/22/17 15:15 Urine Nitrite Negative (Negative) 12/22/17 15:15 Urine Bilirubin Negative (Negative) 12/22/17 15:15 Urine Urobilinogen Normal mg/dL (Normal) 12/22/17 15:15 Ur Leukocyte Esterase Large (Negative) H 12/22/17 15:15 Urine Microscopic RBC 5-15 per hpf (0-3) H 12/22/17 15:15 Urine Microscopic WBC TNTC per hpf (0-3) H 12/22/17 15:15 Ur Eosinophil Smear 0 % (None Seen) 12/10/17 15:45 Ur Squamous Epith Cells Many per lpf (None-Few) H 12/22/17 15:15 Urine Bacteria None Seen per hpf (None-Few) 12/22/17 15:15 Hyaline Casts None Seen per lpf (None-Few) 12/09/17 16:02 Ur Culture Indicated? NO. (NO) A 12/22/17 15:15 Urine Creatinine 79 mg/dL 12/10/17 15:45 Urine Sodium 72.1 mEq/L 12/10/17 15:45 Random Vancomycin 17 mcg/mL 12/11/17 05:40 Urine Opiates Screen Negative ng/mL (Bplcyx=180) 12/09/17 16:00 Ur Barbiturates Screen Negative ng/mL (Oemype=523) 12/09/17 16:00 Ur Phencyclidine Scrn Negative ng/mL (Cutoff=25) 12/09/17 16:00 Ur Amphetamines Screen Negative ng/mL (Lqhsly=2061) 12/09/17 16:00 U Benzodiazepines Scrn Negative ng/mL (Jklpkz=819) 12/09/17 16:00 Urine Cocaine Screen Negative ng/mL (Cutoff= 300) 12/09/17 16:00 U Marijuana (THC) Screen Negative ng/mL (Cutoff = 50) 12/09/17 16:00 Ur Drug Screen Interp See Below 12/09/17 16:00 Ethyl Alcohol < 10 mg/dL (Less than 10) 12/09/17 13:10 Complement C3 114 mg/dL (88-201) 12/26/17 06:20 Complement C4 38 mg/dL (10-40) 12/26/17 06:20 A. baumannii (PCR) Not Detected (Not Detect) 12/09/17 15:13 Yolanda albicans (PCR) Not Detected (Not Detect) 12/09/17 15:13 C. glabrata (PCR) Not Detected (Not Detect) 12/09/17 15:13 C. krusei (PCR) Not Detected (Not Detect) 12/09/17 15:13 C. parapsilosis (PCR) Not Detected (Not Detect) 12/09/17 15:13 C. tropicalis (PCR) Not Detected (Not Detect) 12/09/17 15:13 Enterobacteriac sp PCR Not Detected (Not Detect) 12/09/17 15:13 E. cloacae complex PCR Not Detected (Not Detect) 12/09/17 15:13 Enterococcus sp PCR Not Detected (Not Detect) 12/09/17 15:13 E. coli (PCR) Not Detected (Not Detect) 12/09/17 15:13 H. influenzae (PCR) Not Detected (Not Detect) 12/09/17 15:13 Hep Bs Antigen Nonreactive (Nonreactive) 12/14/17 11:03 Hep Bs Antibody 0.00 mIU/mL 12/14/17 11:03 Klebsiella oxytoca PCR Not Detected (Not Detect) 12/09/17 15:13 Klebsiella pneumoniae Not Detected (Not Detect) 12/09/17 15:13 List. monocytogenes PCR Not Detected (Not Detect) 12/09/17 15:13 N. meningitidis (PCR) Not Detected (Not Detect) 12/09/17 15:13 Proteus species (PCR) Not Detected (Not Detect) 12/09/17 15:13 Serratia marcescens PCR Not Detected (Not Detect) 12/09/17 15:13 Staphylococcus sp PCR DETECTED (Not Detect) A 12/09/17 15:13 Staph aureus (PCR) Not Detected (Not Detect) 12/09/17 15:13 mecA-Methicil Res Gene DETECTED (Not Detect) A 12/09/17 15:13 Streptococcus sp PCR Not Detected (Not Detect) 12/09/17 15:13 Group A Strep DNA Not Detected (Not Detect) 12/09/17 15:13 Group B Strep (PCR) Not Detected (Not Detect) 12/09/17 15:13 Strep pneumoniae (PCR) Not Detected (Not Detect) 12/09/17 15:13 P. aeruginosa (PCR) Not Detected (Not Detect) 12/09/17 15:13 Lisbeth/B-Vanco Res Genes Not Detected (Not Detect) 12/09/17 15:13 KPC (blaKPC) Detect PCR Not Detected (Not Detect) 12/09/17 15:13 Specimen Rejected Hemolyzed 12/13/17 06:34 Blood Type O POSITIVE 12/28/17 08:52 Antibody Screen NEGATIVE 12/28/17 08:52 Crossmatch See Detail 12/28/17 08:52 Consult Discharge Plan - Plan Instructions: BiPAP, Disease Management Nurse (GEN) Referrals: Wale Lam DO [Primary Care Provider] - (PATIENT IS GOING TO [facility] NO PCP APPOINTMENT NEEDED)
--- NOTE | 2017-12-30 13:52 | Discharge Summary ---
<Leno Barrera - Last Filed: 12/30/17 13:49> - NOTES TO OUTPATIENT PROVIDER Notes to Outpatient Provider: Patient admitted for sepsis secondary to pneumonia vs UTI. Blood cultures positive for e.coli, staph epidermidis and shonna. Completed course of antibiotics. Consulted psych during stay for poor oral intake and they have recommended outpatient psych evaluation and treatment. Discharged to [facility]. Orders not resulted at time of discharge: Pending orders 12/31/17 04:00 Basic Metabolic Panel AM 040 CBC no Diff [Complete Blood Count w/o Diff] [HEME] AM 04001/01/18 04:00 Basic Metabolic Panel AM 0400 CBC no Diff [Complete Blood Count w/o Diff] [HEME] AM 04001/02/18 04:00 Basic Metabolic Panel AM 0400 CBC no Diff [Complete Blood Count w/o Diff] [HEME] AM 040 Date of Encounter: 12/30/17 Time of Encounter: 13:50 - Discharge Diagnosis (1) Hypertension Priority: Secondary Status: Chronic Assessment and Plan: Well controlled with 75 mg toprolol xl Qualifiers: Hypertension type: essential hypertension Qualified Code(s): I10 - Essential (primary) hypertension (2) Type 2 diabetes mellitus Priority: Secondary Status: Chronic Assessment and Plan: Well controlled during stay Qualifiers: Diabetes mellitus long term care pharmacist insulin use: with long term care pharmacist use Diabetes mellitus complication status: with kidney complications Diabetes mellitus complication detail: with chronic kidney disease Chronic kidney disease stage : stage 4 (severe) Qualified Code(s): E11.22 - Type 2 diabetes mellitus with diabetic chronic kidney disease; N18.4 - Chronic kidney disease, stage 4 (severe ); Z79.4 - [facility] (current) use of insulin (3) Chronic systolic heart failure Priority: Secondary Status: Chronic Assessment and Plan: no acute exacerbation (4) Pneumonia Priority: Secondary Status: Suspected Assessment and Plan: CXR/CT was concerning for infiltrates on B/L basal regions, possible aspiration pneumonia. -Completed abx on 12/18 -Nutrition recommended: thin liquids and advanced soft texture diet Qualifiers: Pneumonia type: due to unspecified organism Laterality: right Lung location: lower lobe of lung Qualified Code(s): J18.1 - Lobar pneumonia, unspecified organism (5) UTI (urinary tract infection) Priority: Secondary Status: Resolved Assessment and Plan: History of recurrent UTIs. Recent urine culture grew canadida albican. She has completed fluconazole regimen on 12/18. Qualifiers: Urinary tract infection type: site unspecified Hematuria presence: without hematuria Qualified Code(s): N39.0 - Urinary tract infection, site not specified (6) NSTEMI (non-ST elevated myocardial infarction) Priority: Secondary Status: Acute Assessment and Plan: Likely due to demand ischemia. Continue aspirin and beta maggie. No current complaint of chest pain. (7) Catatonia Priority: Secondary Status: Suspected Assessment and Plan: Patient still depressed. Seems start to talk but not much. Continue memantine 10mg PO BID (12/23). Psychiatry saw her and recommended lexapro and follow up with outpatient psych at [facility]. Her mood was much more improved today than the past a few days. (8) Shonna infection Priority: Secondary Status: Resolved Assessment and Plan: urine culture: Candidda albicans (12/10). Pt was recently admitted for hematuria/ sepsis 2/2 UTI and was tx with Vanc and Cefepime, as per ID has had shonna in the past in urine. Also shonna in mouth and under skin folds. Plan: - ID was consulted, completed diflucan, last dose on 12/18. Nystatin swish and spit and topical - urology consulted for recurrent UTIs as they recommenced continued catheter drainage with plunkett and changing plunkett every 3-4 weeks. (9) Chronic anemia Priority: Secondary Status: Chronic Assessment and Plan: The anemia is chronic due to her ESRD and has remained stable since her admission. Her stool was dark the past a few days and she is on daily iron supplement. -Continue to monitor (10) Atrial flutter with rapid ventricular response Priority: Secondary Status: Resolved Assessment and Plan: Currently rate controlled. Atrial flutter with RVR seen on biventriculr ICD. New diagnosis, since 12/09/17. Currently resolved, HR is within normal limits as she is on 75 mg of toprolol xl. Plan: - continue toprol XL of 75 mg. - avoiding cardizem in the setting of known EF 30%. - cardiology talked to family and have concluded anticoagulation risks out weight benefits (11) Obesity Priority: Secondary Status: Chronic Assessment and Plan: BMI of 38.1. She is not eating at this time due to depressed mood. She will need more lifestyle modification counseling once her mood status is improved. Qualifiers: Obesity type: due to excess calories Obesity classification: adult class 3 (BMI >= 40) Serious obesity comorbidity presence: with serious comorbidity Body mass index: BMI 40.0-44.9 Qualified Code(s): E66.01 - Morbid (severe) obesity due to excess calories; Z68.41 - Body mass index (BMI) 40.0-44.9, adult (12) ESRD (end stage renal disease) on dialysis Priority: Secondary Status: Chronic Assessment and Plan: She presented with increased creatinine and developed ESRD. She is currently getting hemodialysis through right IJ temporary catheter and had a permenent catheter placed by IR. Nephrology notes hemodialysis can be provided in psych facility once placement is confirmed. (14) Sepsis Priority: Primary Status: Acute Assessment and Plan: Resolved. Was secondary to pneumonia and UTI. She is having good urinary output. She has completed her antibiotics on 12/18. Her past 4 blood cultures have been negative. -No further workup needed Qualifiers: Sepsis type: sepsis due to unspecified organism Qualified Code(s): A41.9 - Sepsis, unspecified organism (15) Sacral decubitus ulcer, stage II Priority: Secondary Status: Chronic Assessment and Plan: Per patient's she has chronic sacral decubitus ulcer due to her lack of mobility. Nursing has been aware of it and apply ointment daily. They have also tried to turn her but she has not been agreeable. -Continue turning Q4 -Apply collegenase ointment - wound care Hospital course: Ms. Bentley is a 72 year old female with past medical history of CHF, CAD, CVA, diabetes, GERD, hyperlipidemia, hypertension, PAD, CKD 4, TIA who [facility] with complaint of lethargy and altered mental status. She was recently discharged from the hospital the day previous with complaint of hematuria and was found to have bilateral hydronephrosis, bladder hemorrhage as well as sepsis secondary to UTI. During that admission, she was intubated and required vasopressor support and subsequently developed renal failure requiring ureteral stent placement. At that visit ID was consult at and she was started on a course of vancomycin and cefepime. Per nursing report, on this visit she was presenting from [facility] with "milky urine "coming out of the catheter. She was a very poor historian at time of admission was unable to provide a history of present illness. In the emergency department, vitals were significant for temperature 102.2, heart rate 93, respiratory rate 24, blood pressure 134/71. Laboratory results were significant for leukocytosis of 16.8 with left shift, baseline anemia, BUNs/creatinine of 49/3.48, lactic acid 3.2, troponin of 2.67. Urinalysis was contaminated with many squamous epithelial cells. Blood cultures were drawn at that time and were significant for methicillin resistant staph epidermidis as well as gram-positive rods and urine culture grew Shonna albicans. Chest x-ray showed some worsened bilateral infiltrates which may represent pulmonary edema due to CHF versus pneumonia. Head CT was unremarkable. CT of the abdomen and pelvis will also obtained and showed interval increase in the size bilateral pleural effusions, atelectasis versus pneumonia, perivesical fat stranding with correlation for cystitis. Retroperitoneal ultrasound within normal limits. Echocardiogram was obtained and cardiology was consult for the elevated troponin which showed an ejection fraction of 30% with global and segmental LV systolic dysfunction, indeterminant diastolic dysfunction and no thrombi. She was admitted to the intensive care unit for further evaluation and management of severe sepsis secondary to pneumonia versus UTI. During the course of hospital stay, patient did gradually improve. Cardiology consulted and determined that this is likely a type II [place] secondary to sepsis and recommended medical management. She was given fluid resuscitation and received empiric antibiotics of cefepime, vancomycin, Flagyl, Diflucan and infectious disease was subsequently consulted. Blood cultures indicate staph epidermidis and gram-positive rods. She did complete a course of cefepime however vancomycin was discontinued after MRSA was not found and blood cultures per ID recommendations. She also completed a course of Diflucan for her candidal infection. Repeat blood cultures were obtained on 12/12/17 as well as which were finalized for no growth. Nephrology was consult that due to TENISHA on CKD. She did receive a dialysis catheter during the stay and has been receiving dialysis as her kidney function did not improve to baseline CKD stage IV. She was also seen by psychiatry during this admission due to catatonia which did resolve with discontinuation of lorazepam and improvement of her sleep -wake cycles. Psychiatry was reconsulted at a later date due to concerns for not eating or speaking. There is suspicion for major depressive episode. We did try to encourage the patient, and her oral intake did improve with the addition of Lexapro. Psychiatry originally did recommend inpatient psychiatric hospitalization however on reassessment given her improvement we feel that she could be managed at extended care facility with the assistance of outpatient psychiatric services. We will continue an increased dose of Lexapro. At time of discharge, vital signs are stable and she has not been septic for multiple days. She is clinically stable and willing to return back to [facility]. This was discussed with patient and her by multiple physicians and care team. They are agreeable at this time. Vital signs are within normal limits. Laboratory results improved to baseline levels including resolution of leukocytosis, troponin was trended and adynamic, BUNs/creatinine did remain elevated and she will receive outpatient hemodialysis through nephrology. Patient was instructed to follow up with her primary care physician within one week and take all medication as prescribed. She should return to the emergency department if her symptoms return including fevers, altered mental status. Discharge discussed with: patient, family, social work, case management - Time Spent with Patient Total time spent providing and/or coordinating discharge services: - Discharge Medications Prescriptions: Collagenase Oint [Santyl] 1 appl TP DAILY #1 tube Escitalopram [Lexapro] 10 mg PO DAILY #20 tablet Lisinopril [Zestril] 2.5 mg PO DAILY #10 tablet Memantine [Namenda] 10 mg PO BID #10 tablet Metoprolol XL (24 HR) Succ [Toprol Xl] 75 mg PO DAILY #21 tab Home Medications: Aspirin Enteric Coated [Aspirin EC] 81 mg PO DAILY 08/20/15 [History] Insulin Glargine,Hum.rec.anlog [Todaniel Raymundo] 45 units SQ HS 06/10/16 [ History] Multivit-Minerals/Folic/Ginkgo [One Daily For Women 50+ Adv Tb] 1 tab PO DAILY 06/10/16 [History] Furosemide [Lasix] 40 mg PO QAM 10/03/16 [History] Insulin ASPART [Novolog Flexpen] 25 unit SQ TIDWM 10/03/16 [History] Clopidogrel [Plavix] 75 mg PO DAILY 11/03/17 [History] Oxybutynin Chloride [Ditropan Xl] 10 mg PO DAILY 11/03/17 [History] Rosuvastatin Calcium 10 mg PO HS 11/03/17 [History] Ascorbic Acid [Vitamin C] 500 mg PO BID 11/17/17 [History] Ergocalciferol (VITAMIN D2) [Vitamin D2] 50,000 unit PO QWEEK 11/17/17 [History] Dextromethorphan HBr/Quinidine [Nuedexta 20-10 mg Capsule] 1 each PO DAILY 30 Days #30 capsule 12/08/17 [Rx] Ferrous Sulfate 325 mg PO DAILY@0800 tablet 12/08/17 [Rx] LORazepam [Ativan] 1 mg PO TID 6 Days #18 tablet 12/08/17 [Rx] Miconazole 2% ointment [Aloe [place] Antifungal Ointment] 1 appl TP DAILY tube [Rx] amLODIPine [Norvasc] 10 mg PO DAILY tablet 12/08/17 [Rx] Collagenase Oint [Santyl] 1 appl TP DAILY #1 tube 12/30/17 [Rx] Escitalopram [Lexapro] 10 mg PO DAILY #20 tablet 12/30/17 [Rx] Lisinopril [Zestril] 2.5 mg PO DAILY #10 tablet 12/30/17 [Rx] Memantine [Namenda] 10 mg PO BID #10 tablet 12/30/17 [Rx] Metoprolol XL (24 HR) Succ [Toprol Xl] 75 mg PO DAILY #21 tab 12/30/17 [Rx] Allergies/Adverse Reactions: 3 Allergy/AdvReac Type Severity Reaction Status Date / Time venom-honey bee Allergy Severe Swelling Verified 11/03/17 10:53 [bee venom (honey bee)] of Lip/Tongue/Throat Cortisone Allergy Mild Hives Verified 11/03/17 10:53 Penicillins Allergy See Verified 11/03/17 10:53 Comments NSAIDS (Non-Steroidal AdvReac Mild UPSET Verified 11/03/17 10:53 Anti-Inflamma STOMACH cefazolin [From Ancef] AdvReac Hives Verified 11/03/17 10:53 Ccjxcbt-Vmv-Mvx Reductase AdvReac Muscle Pain Verified 11/03/17 10:53 Inhibitor [Statins] GRAPE FLAVOR Allergy Mild Swelling Uncoded 11/03/17 10:53 of the Eye Date of admission: 12/09/17 17:27 Primary care physician: Wale Lam DO Consults: 12/09/17 21:33 Consult to [facility] [place] [CONS] Routine Reason for SW Consult: Girard 12/10/17 08:33 Consult to Nephrology [CONS] Routine Consulting Provider: Kidney Ilene/NOLBERTO/XAVIER/DAYDAY Reason for Consult: Worsening TENISHA on CKD-3 Time Notified: 08:33 Call Completed: Yes 12/11/17 19:42 Consult to Wound Care [CONS] Routine Reason for Consult: STAGE 2 TO BUTTOCKS, UNSTEAGEABLE TO LEFT HEEL, AND SCABS TO TOES/TOENAILS. Call Completed: No 12/12/17 09:50 Consult to Psychiatry [CONS] Routine Consulting Provider: Psychiatry Ilene Reason consult: Psychosis Other Call Completed: No 12/13/17 11:15 Consult to Infectious Diseases [CONS] Routine Consulting Provider: Infectious Disease Ilene Reason for Consult: recurrent sepsis Call Completed: No 12/14/17 09:49 Consult to Interventional Radiology [CONS] Routine Consulting Provider: Radiology Interventional Cols Reason for Consult: Placement of temporary hemodialysis cath Time Notified: 09:53 Call Completed: Yes 12/16/17 08:14 Consult to Physical Therapy [CONS] Routine Comment: Evaluate, develop and implement POC Reason for Consult: to evaluate for activity level, and for discharge planning. Does patient have active BEDREST order?: Yes Is patient medically & hemodynamically stable?: Yes Patient assessed for mobility or mobilized this visit?: No 12/16/17 08:16 Consult to Occupational Therapy [CONS] Routine Comment: Evaluate, develop and implement POC Reason for Consult: for evaluation of activity level, and for discharge planning Does patient have active BEDREST order?: Yes Is patient medically & hemodynamically stable?: Yes Patient assessed for mobility or mobilized this visit?: No 12/16/17 10:15 Consult to Dialysis [CONS] ONCE 12/16/17 13:42 Consult to Urology [CONS] Routine Consulting Provider: Urology Ilene Reason for Consult: recurrent uti Call Completed: No 12/19/17 10:22 Consult to [employer] [employer] [place] [CONS] Routine Reason for SW Consult: Chair time for hemodialysis 12/21/17 07:45 Consult to Dialysis [CONS] ONCE 12/23/17 08:00 Consult to Dialysis [CONS] ONCE 12/25/17 09:45 Consult to Interventional Radiology [CONS] Routine Consulting Provider: Radiology Interventional Cols Reason for Consult: Permacath placement for [place] Call Completed: No 12/26/17 07:00 Consult to Dialysis [CONS] ONCE 12/26/17 08:37 Consult to Psychiatry [CONS] Routine Consulting Provider: Psychiatry Ilene Reason consult: Other Other reason and/or additional details: Major depression / Catatonia.. Not eating and drinking.. Withdrawing her care. May need In Patient Adult Psych Unit placement [place] initiated date and time: Time Notified: 08:38 Call Completed: Yes 12/27/17 18:38 Consult to Nutrition [CONS] Routine Comment: Consulting Provider: NUTRITION Reason for Dietary Consult: Other Other:: Not eating 12/28/17 08:15 Consult to Dialysis [CONS] ONCE 12/30/17 07:45 Consult to Dialysis [CONS] ONCE Discharging clinician: Leno Barrera Anticipated date of discharge: 12/30/17 - Constitutional Vitals: Temp Pulse Resp BP Pulse Ox 97.8 F 77 18 118/61 91 12/30/17 13:26 12/30/17 07:08 12/30/17 13:26 12/30/17 13:26 12/30/17 07:08 Exam: Constitutional: Alert, in no acute distress , resting comfortably in bed HEENT: central line right side of neck, Normocephalic, atraumatic , mildly dry mucous membranes Heart: regular rate and rhythm, no murmurs, no peripheral edema Lungs: Clear to auscultation bilaterally with breath sounds equal at all lungs lobes, no wheezes, rales, or rhonchi Abdomen: Soft, nondistended, obese, bowel sounds present Extremities: multiple toe amputations bilaterally feet, No clubbing, mild lower left extremity discoloration likely related to venous stasis Skin: Skin warm and dry, no lesions, no rashes, no jaundice, vascular changes at bilateral lower legs Neurologic: Cooperative with exam. Psych: not very communicative, not yesterday to questions but otherwise does not actively participate in interview - Patient Status Disposition: Transfer SNF Condition: Fair Overall status at discharge: patient is progressing back to baseline - Discharge Instructions Instructions: Urinary Tract Infection in Women (DC), Sepsis (DC), Acute Delirium (DC), BiPAP, Material Requirements Planning Manager (GEN) Follow Up With: Wale Lam DO [Primary Care Provider] - (PATIENT IS GOING TO [facility] NO PCP APPOINTMENT NEEDED) Additional Instructions: Please follow with her primary care physician within one week of discharge. Take all medications as prescribed. Please make an effort to ensure that she were eating and drinking enough as this may cause you to become sick again. - Diet and Activity Activity: increase activity as tolerated, resume usual activities as tolerated, wear oxygen at all times Diet: diabetic diet, low salt diet - VTE Documentation of Mechanical Device: Intermittent pneumatic compression device <Meghan Sánchez - Last Filed: 12/30/17 14:34> Orders not resulted at time of discharge: Pending orders 12/31/17 04:00 Basic Metabolic Panel AM 0400 CBC no Diff [Complete Blood Count w/o Diff] [HEME] AM 04001/01/18 04:00 Basic Metabolic Panel AM 0400 CBC no Diff [Complete Blood Count w/o Diff] [HEME] AM 04001/02/18 04:00 Basic Metabolic Panel AM 0400 CBC no Diff [Complete Blood Count w/o Diff] [HEME] AM 0400 Date of Encounter: 12/30/17 - Discharge Diagnosis (1) Hypertension Status: Chronic Qualifiers: Hypertension type: essential hypertension Qualified Code(s): I10 - Essential (primary) hypertension (2) Type 2 diabetes mellitus Status: Chronic Qualifiers: Diabetes mellitus prison insulin use: with long term care pharmacist use Diabetes mellitus complication status: with kidney complications Diabetes mellitus complication detail: with chronic kidney disease Chronic kidney disease stage : stage 4 (severe) Qualified Code(s): E11.22 - Type 2 diabetes mellitus with diabetic chronic kidney disease; N18.4 - Chronic kidney disease, stage 4 (severe ); Z79.4 - [facility] (current) use of insulin (3) Chronic systolic heart failure Status: Chronic (4) Severe sepsis Status: Resolved (5) Pneumonia Status: Suspected Qualifiers: Pneumonia type: due to unspecified organism Laterality: right Lung location: lower lobe of lung Qualified Code(s): J18.1 - Lobar pneumonia, unspecified organism (6) UTI (urinary tract infection) Status: Resolved Qualifiers: Urinary tract infection type: site unspecified Hematuria presence: without hematuria Qualified Code(s): N39.0 - Urinary tract infection, site not specified (7) NSTEMI (non-ST elevated myocardial infarction) Status: Acute (8) Catatonia Status: Suspected (9) Shonna infection Status: Resolved (10) Chronic anemia Status: Chronic (11) Atrial flutter with rapid ventricular response Status: Resolved (12) Obesity Status: Chronic Qualifiers: Obesity type: due to excess calories Obesity classification: adult class 3 (BMI >= 40) Serious obesity comorbidity presence: with serious comorbidity Body mass index: BMI 40.0-44.9 Qualified Code(s): E66.01 - Morbid (severe) obesity due to excess calories; Z68.41 - Body mass index (BMI) 40.0-44.9, adult (13) ESRD (end stage renal disease) on dialysis Status: Chronic (14) Sacral decubitus ulcer, stage II Status: Chronic Hospital course: Ms. Bentley is a 72 year old female - Time Spent with Patient Total time spent providing and/or coordinating discharge services: Date of admission: 12/09/17 17:27 Primary care physician: Wale Lam DO Consults: 12/09/17 21:33 Consult to [employer] [employer] [facility] [CONS] Routine Reason for SW Consult: Girard 12/10/17 08:33 Consult to Nephrology [CONS] Routine Consulting Provider: Kidney Ilene/NOLBERTO/XAVIER/DAYDAY Reason for Consult: Worsening TENISHA on CKD-3 Time Notified: 08:33 Call Completed: Yes 12/11/17 19:42 Consult to Wound Care [CONS] Routine Reason for Consult: STAGE 2 TO BUTTOCKS, UNSTEAGEABLE TO LEFT HEEL, AND SCABS TO TOES/TOENAILS. Call Completed: No 12/12/17 09:50 Consult to Psychiatry [CONS] Routine Consulting Provider: Psychiatry Ilene Reason consult: Psychosis Other Call Completed: No 12/13/17 11:15 Consult to Infectious Diseases [CONS] Routine Consulting Provider: Infectious Disease [place] Reason for Consult: recurrent sepsis Call Completed: No 12/14/17 09:49 Consult to Interventional Radiology [CONS] Routine Consulting Provider: Radiology Interventional Cols Reason for Consult: Placement of temporary hemodialysis cath Time Notified: 09:53 Call Completed: Yes 12/16/17 08:14 Consult to Physical Therapy [CONS] Routine Comment: Evaluate, develop and implement POC Reason for Consult: to evaluate for activity level, and for discharge planning. Does patient have active BEDREST order?: Yes Is patient medically & hemodynamically stable?: Yes Patient assessed for mobility or mobilized this visit?: No 12/16/17 08:16 Consult to Occupational Therapy [CONS] Routine Comment: Evaluate, develop and implement POC Reason for Consult: for evaluation of activity level, and for discharge planning Does patient have active BEDREST order?: Yes Is patient medically & hemodynamically stable?: Yes Patient assessed for mobility or mobilized this visit?: No 12/16/17 10:15 Consult to Dialysis [CONS] ONCE 12/16/17 13:42 Consult to Urology [CONS] Routine Consulting Provider: Urology Ilene Reason for Consult: recurrent uti Call Completed: No 12/19/17 10:22 Consult to [employer] [place] [CONS] Routine Reason for SW Consult: Chair time for hemodialysis 12/21/17 07:45 Consult to Dialysis [CONS] ONCE 12/23/17 08:00 Consult to Dialysis [CONS] ONCE 12/25/17 09:45 Consult to Interventional Radiology [CONS] Routine Consulting Provider: Radiology Interventional Cols Reason for Consult: Permacath placement for Tuesday Call Completed: No 12/26/17 07:00 Consult to Dialysis [CONS] ONCE 12/26/17 08:37 Consult to Psychiatry [CONS] Routine Consulting Provider: Psychiatry Ilene Reason consult: Other Other reason and/or additional details: Major depression / Catatonia.. Not eating and drinking.. Withdrawing her care. May need In Patient Adult Psych Unit placement [place] initiated date and time: Time Notified: 08:38 Call Completed: Yes 12/27/17 18:38 Consult to Nutrition [CONS] Routine Comment: Consulting Provider: NUTRITION Reason for Dietary Consult: Other Other:: Not eating 12/28/17 08:15 Consult to Dialysis [CONS] ONCE 12/30/17 07:45 Consult to Dialysis [CONS] ONCE - Constitutional Vitals: Temp Pulse Resp BP Pulse Ox 97.8 F 77 18 118/61 91 12/30/17 13:26 12/30/17 07:08 12/30/17 13:26 12/30/17 13:26 12/30/17 07:08 - Attending Attestation I have seen and examined this pt independently. I have discussed with resident physician Dr Flanagan regarding the discharge and follow up plan. Agree with the documentation.
--- NOTE | 2017-12-30 14:28 | Physician Discharge Referral ---
ExtendedCare Referral Info Transfer To: [place] Provider in Charge after Transfer: PCP - Diagnosis (1) Hypertension Priority: Secondary Status: Chronic (2) Type 2 diabetes mellitus Priority: Secondary Status: Chronic (3) Chronic systolic heart failure Priority: Secondary Status: Chronic (4) Pneumonia Priority: Secondary Status: Suspected (5) UTI (urinary tract infection) Priority: Secondary Status: Resolved (6) NSTEMI (non-ST elevated myocardial infarction) Priority: Secondary Status: Acute (7) Catatonia Priority: Secondary Status: Suspected (8) Yolanda infection Priority: Secondary Status: Resolved (9) Chronic anemia Priority: Secondary Status: Chronic (10) Atrial flutter with rapid ventricular response Priority: Secondary Status: Resolved (11) Obesity Priority: Secondary Status: Chronic (12) ESRD (end stage renal disease) on dialysis Priority: Secondary Status: Chronic (13) Sacral decubitus ulcer, stage II Priority: Secondary Status: Chronic (14) Severe sepsis Priority: Primary Status: Resolved Prognosis: Fair Aware of Diagnosis: Patient, Family Aware of Prognosis: Patient, Family - Transfer Medications Prescriptions: Collagenase Oint [Santyl] 1 appl TP DAILY #1 tube Escitalopram [Lexapro] 10 mg PO DAILY #20 tablet Lisinopril [Zestril] 2.5 mg PO DAILY #10 tablet Memantine [Namenda] 10 mg PO BID #10 tablet Metoprolol XL (24 HR) Succ [Toprol Xl] 75 mg PO DAILY #21 tab Home Medications: Aspirin Enteric Coated [Aspirin EC] 81 mg PO DAILY 08/20/15 [History] Insulin Glargine,Hum.rec.anlog [Toukeri Raymundo] 45 units SQ HS 06/10/16 [ History] Multivit-Minerals/Folic/Ginkgo [One Daily For Women 50+ Adv Tb] 1 tab PO DAILY 06/10/16 [History] Furosemide [Lasix] 40 mg PO QAM 10/03/16 [History] Insulin ASPART [Novolog Flexpen] 25 unit SQ TIDWM 10/03/16 [History] Clopidogrel [Plavix] 75 mg PO DAILY 11/03/17 [History] Oxybutynin Chloride [Ditropan Xl] 10 mg PO DAILY 11/03/17 [History] Rosuvastatin Calcium 10 mg PO HS 11/03/17 [History] Ascorbic Acid [Vitamin C] 500 mg PO BID 11/17/17 [History] Ergocalciferol (VITAMIN D2) [Vitamin D2] 50,000 unit PO QWEEK 11/17/17 [History] Dextromethorphan HBr/Quinidine [Nuedexta 20-10 mg Capsule] 1 each PO DAILY 30 Days #30 capsule 12/08/17 [Rx] Ferrous Sulfate 325 mg PO DAILY@0800 tablet 12/08/17 [Rx] LORazepam [Ativan] 1 mg PO TID 6 Days #18 tablet 12/08/17 [Rx] Miconazole 2% ointment [Aloe Kempner Antifungal Ointment] 1 appl TP DAILY tube [Rx] amLODIPine [Norvasc] 10 mg PO DAILY tablet 12/08/17 [Rx] Collagenase Oint [Santyl] 1 appl TP DAILY #1 tube 12/30/17 [Rx] Escitalopram [Lexapro] 10 mg PO DAILY #20 tablet 12/30/17 [Rx] Lisinopril [Zestril] 2.5 mg PO DAILY #10 tablet 12/30/17 [Rx] Memantine [Namenda] 10 mg PO BID #10 tablet 12/30/17 [Rx] Metoprolol XL (24 HR) Succ [Toprol Xl] 75 mg PO DAILY #21 tab 12/30/17 [Rx] Allergies/Adverse Reactions: 3 Allergy/AdvReac Type Severity Reaction Status Date / Time venom-honey bee Allergy Severe Swelling Verified 11/03/17 10:53 [bee venom (honey bee)] of Lip/Tongue/Throat Cortisone Allergy Mild Hives Verified 11/03/17 10:53 Penicillins Allergy See Verified 11/03/17 10:53 Comments NSAIDS (Non-Steroidal AdvReac Mild UPSET Verified 11/03/17 10:53 Anti-Inflamma STOMACH cefazolin [From Ancef] AdvReac Hives Verified 11/03/17 10:53 [id number] Reductase AdvReac Muscle Pain Verified 11/03/17 10:53 Inhibitor [Statins] GRAPE FLAVOR Allergy Mild Swelling Uncoded 11/03/17 10:53 of the Eye - Respiratory Orders Smoking Cessation: Smoking cessation has been advised. For more information, call the [place] Tobacco Quit Line at 7-776-QMWW-NOW. - Mobility Orders Ambulate - Rehabiliation Orders Rehab Orders: Evaluation for Physical Therapy, Evaluation for Occupational Therapy - Treatments Skin tear care topically daily PRN per policy - Diet Orders No Concentrated Sweets, Renal, Cardiac CERTIFICATION: I certify that the transfer of the above named patient to an Extended Care Facility is necessary for the continuing treatment of the diagnosis listed. The above information is true and accurate reflection of patient's current condition. Confidential - Redisclosure prohibited without a patient's written consent.
[2017-12-30 16:00] VITALS: BP 93/58
--- NOTE | 2017-12-30 16:44 | Nephrology Progress Note ---
Date of Encounter: 12/30/17 Time of Encounter: 12:00 - Assessment and Plan (1) Acute kidney injury Status: Acute Continue HD with UF as tolerated Lytes stable with potassium of 3.4 noted and will be corrected with Hd Continue to avoid nephrotoxins if possible ECF placement and outpatient HD nearby pending (2) Anemia Status: Chronic Hgb noted at 8.8, will monitor Transfusion parameters per primary team Qualifiers: Anemia type: unspecified type Qualified Code(s): D64.9 - Anemia, u nspecified (3) CKD (chronic kidney disease) stage 4, GFR 15-29 ml/min Status: Chronic Baseline GFR in the 20s (4) Depressive disorder, not elsewhere classified Status: Acute per psych Subjective Principal diagnosis: NSTEMI Interval history: Pt seen and examined on HD answers questions but does not volunteer any information otherwise Objective - Vital Signs Vital signs: Vital Signs Temp Pulse Resp BP Pulse Ox 12/30/17 15:53 99.1 F 86 16 93/58 96 12/30/17 13:26 97.8 F 18 118/61 12/30/17 12:25 110/64 12/30/17 12:10 93/61 12/30/17 11:55 99/58 12/30/17 11:40 92/57 12/30/17 11:25 96/58 12/30/17 11:10 97/58 12/30/17 10:55 101/57 12/30/17 10:40 91/50 12/30/17 10:25 93/55 12/30/17 10:10 93/57 12/30/17 09:55 93/59 12/30/17 09:40 96/57 12/30/17 09:25 97.8 F 18 93/55 12/30/17 07:08 98.0 F 77 16 129/65 91 12/30/17 04:03 99.1 F 80 16 104/67 95 12/30/17 00:20 99.4 F 80 16 106/60 94 12/29/17 20:28 98.5 F 81 16 103/65 96 Intake and Output 12/30/17 12/30/17 12/30/17 07:59 15:59 23:59 Intake Total 840 / 840 Output Total 1600 / 1600 Balance -760 / -760 Intake: Oral 240 / 240 Intake, Rinseback and Flushes 600 / 600 Output: Urine 0 / 0 Total Dialysis (HD) Output 1600 / 1600 Other: Meal Breakfast Percent of Meal Consumed 50% Stool Size Moderate Stool Consistency loose Stool Color Brown # Urine Diapers 1 # Bowel Movement Diapers 1 Weight 97.1 kg Blood Glucose* 194 195 Hemodialysis Net Fluid Removed 1000 (mL) Patient Weight 12/30/17 23:59 Weight 97.1 kg - General Appearance General appearance: Present: chronically ill EENT: Present: ATNC, mucous membranes moist Neck: Present: no JVD, supple Respiratory: Present: clear Cardiology: Present: no edema, normal S1, normal S2 Dialysis Vascular Access: Venous Catheter (permcath) Gastrointestinal: Present: no tenderness, no guarding Integumentary: Present: warm and dry Neurologic: Present: no focal deficit Musculoskeletal: Present: no deformities Psychiatric: Present: depressed, cooperative - Lab 12/30/17 04:11 12/30/17 04:11 Most recent lab results Calcium 8.6 mg/dL (8.6-10.3) 12/30/17 04:11 Phosphorus 2.1 mg/dL (2.7-4.5) L 12/10/17 00:46 Magnesium 1.9 mg/dL (1.6-2.6) 12/11/17 05:40 Urine Creatinine 79 mg/dL 12/10/17 15:45 Urine Sodium 72.1 mEq/L 12/10/17 15:45 - VTE Documentation of Mechanical Device: Intermittent pneumatic compression device Consult Discharge Plan - Plan Instructions: Urinary Tract Infection in Women (DC), Sepsis (DC), Acute Delirium (DC), BiPAP, [place] (GEN) Additional Instructions: Please follow with her primary care physician within one week of discharge. Ta ke all medications as prescribed. Please make an effort to ensure that she were eating and drinking enough as this may cause you to become sick again. Referrals: Wale Lam DO [Primary Care Provider] - (PATIENT IS GOING TO [facility] NO PCP APPOINTMENT NEEDED) Prescriptions: RX: Escitalopram [Lexapro] 10 mg PO DAILY #20 tablet RX: Memantine [Namenda] 10 mg PO BID #10 tablet
== END 2017-12-30 17:33 | DRG 871 ==
LOC: EMEROOARM 13:02 → SUATTDRO 17:27 → 2NNU 17:27 → 2ANU 12-20 14:40
PROVIDERS: ADMIT Internal Medicine; ATTEND Internal Medicine
PROC: IRPERMA (2017-12-26 12:00)

== ENCOUNTER 2018-01-07 11:43 | Inpatient (IN) ==
--- NOTE | 2018-01-07 11:57 | Emergency Department Note ---
Disposition Clinical Impression: ESRD (end stage renal disease) on dialysis, Urinary tract infection, Sepsis, Metabolic encephalopathy, Hypotension Disposition: Admitted As Inpatient Condition: Fair General Adult HPI - General Chief complaint: ED Weakness Stated complaint: drowsy,low O2 Time Seen by Provider: 01/07/18 11:50 - Related Data Home Medications Medication Instructions Recorded Confirmed Aspirin Enteric Coated [Aspirin EC] 81 mg PO DAILY 08/20/15 01/07/18 Insulin Glargine,Hum.rec.anlog 45 units SQ HS 06/10/16 01/07/18 [Toujeo Solostar] Multivit-Minerals/Folic/Ginkgo 1 tab PO QAM 06/10/16 01/07/18 [One Daily For Women 50+ Adv Tb] Furosemide [Lasix] 40 mg PO QAM 10/03/16 01/07/18 Insulin ASPART [Novolog Flexpen] 25 unit SQ TIDWM 10/03/16 01/07/18 Clopidogrel [Plavix] 75 mg PO DAILY 11/03/17 01/07/18 Oxybutynin Chloride [Ditropan Xl] 10 mg PO DAILY 11/03/17 01/07/18 Ascorbic Acid [Vitamin C] 500 mg PO BID 11/17/17 01/07/18 Amlodipine Besylate 10 mg PO QAM 01/07/18 01/07/18 Ergocalciferol (VITAMIN D2) 50,000 unit PO TU 01/07/18 01/07/18 [Vitamin D2] Ferrous Sulfate 325 mg PO DAILY 01/07/18 01/07/18 LORazepam [Ativan] 1 mg PO HS 01/07/18 01/07/18 Metoprolol Succinate 50 mg PO HS 01/07/18 01/07/18 Metoprolol XL (24 HR) Succ [Toprol 25 mg PO DAILY 01/07/18 01/07/18 Xl] Rosuvastatin Calcium [Crestor] 10 mg PO DAILY 01/07/18 01/07/18 Previous Rx's Medication Instructions Recorded Dextromethorphan HBr/Quinidine 1 each PO DAILY 30 Days #30 capsule 12/08/17 [Nuedexta 20-10 mg Capsule] Escitalopram [Lexapro] 10 mg PO DAILY #20 tablet 12/30/17 Lisinopril [Zestril] 2.5 mg PO DAILY #10 tablet 12/30/17 Memantine [Namenda] 10 mg PO BID #10 tablet 12/30/17 Allergies Allergy/AdvReac Type Severity Reaction Status Date / Time venom-honey bee Allergy Severe Swelling Verified 01/07/18 13:55 [bee venom (honey bee)] of Lip/Tongue/Throat Cortisone Allergy Mild Hives Verified 01/07/18 13:55 Penicillins Allergy See Verified 01/07/18 13:55 Comments NSAIDS (Non-Steroidal AdvReac Mild UPSET Verified 01/07/18 13:55 Anti-Inflamma STOMACH cefazolin [From Ancef] AdvReac Hives Verified 01/07/18 13:55 Efruzjs-Sjh-[id number] Reductase AdvReac Muscle Pain Verified 01/07/18 13:55 Inhibitor [Statins] GRAPE FLAVOR Allergy Mild Swelling Uncoded 01/07/18 13:55 of the Eye Past Medical History - Past Medical History Medical history: Reports: cardiomyopathy, CHF, coronary artery disease, CVA, diabetes, GERD, hyperlipidemia, hypertension, kidney stones, myocardial infarction, peripheral artery disease, renal disease, TIA Surgical history: Reports: appendectomy, breast surgery, carotid endarterectomy , cholecystectomy, coronary bypass (CABG), hysterectomy, pacemaker/AICD, LE vascular intervention Psychiatric history: Reports: no psych history - Social History Smoking Status: Former smoker Smokeless Tobacco Status: No Alcohol use: Reports: none Drug use: Reports: none Course Vital Signs Temperature 98.4 F 01/07/18 11:48 Pulse Rate 67 01/07/18 11:48 Respiratory Rate 20 01/07/18 11:48 Blood Pressure 74/48 01/07/18 11:48 O2 Sat by Pulse Oximetry 96 01/07/18 11:48 Temperature 96.0 F L 01/08/18 10:00 Pulse Rate 65 01/08/18 10:00 Respiratory Rate 13 01/08/18 10:00 Blood Pressure 111/63 01/08/18 10:00 O2 Sat by Pulse Oximetry 95 01/08/18 10:00 Oxygen Delivery Oxygen Delivery Nasal Cannula Medical Decision Making - Lab Data Result diagrams: 01/08/18 03:56 01/08/18 03:56 Lab Results 01/07/18 01/07/18 01/07/18 Range/Units 12:23 12:27 12:28 WBC 19.3 H (4.3-11.1) K/mcL RBC 3.31 L (3.82-4.97) M/mcL Hgb 9.0 L (11.5-15.4) g/dL Hct 29.3 L (35.3-44.9) % MCV 88.5 (83.0-100.0) fL MCH 27.2 L (28.0-33.3) pg MCHC 30.7 L (31.6-35.5) g/dL RDW 16.7 H (11.5-14.5) % Plt Count 438 H (140-400) K/mcL MPV 9.8 (9.4-12.4) fL Immature Gran % 1.1 (0-4) % Seg Neutrophils % 90.4 % Lymphocytes % 3.8 % Monocytes % 3.7 % Eosinophils % 0.8 % Basophils % 0.2 % Neutrophils # 17.4 H (1.6-8.9) K/mcL Lymphocytes # 0.7 (0.6-4.6) K/mcL Monocytes # 0.7 (0.0-1.3) K/mcL Eosinophils # 0.2 (0.0-0.6) K/mcL Basophils # 0.0 (0.0-0.2) K/mcL PT (9.4-12.1) Seconds INR Sample Site R Brach ABG pH 7.41 (7.32-7.45) pH Units ABG pCO2 32 L (35-45) mmHg ABG pO2 81 L (85-104) mmHg ABG HCO3 21 (21-27) mEq/L ABG Total CO2 22 (20-26) mEq/L ABG O2 Saturation 96 (95-98) % ABG Base Excess -4 L (-2 to 3) mEq/L O2 Delivery Device Cannula Inspired O2 2.0 (1-15=lpm [id number]=%) Sodium (136-145) mEq/L Potassium (3.5-5.1) mEq/L Chloride (98-107) mEq/L Carbon Dioxide (23-29) mEq/L BUN (8-23) mg/dL Creatinine (0.60-1.20) mg/dL Est GFR ( Amer) (> 60) Est GFR (Non-Af Amer) (> 60) BUN/Creatinine Ratio (6-26) Glucose (70-105) mg/dL POC Glucose 211 H (70-99) mg/dL Calculated Osmolality (280-300) Lactic Acid (0.5-2.2) mmol/L Calcium (8.6-10.3) mg/dL Total Bilirubin (0.3-1.0) mg/dL Direct Bilirubin (0.0-0.2) mg/dL Indirect Bilirubin (0.0-1.2) mg/dL AST (13-39) Units/L ALT (7-52) Units/L Alkaline Phosphatase (34-104) Units/L Ammonia (16-53) mcmol/L Troponin I (< 0.04) ng/mL Serum Total Protein (6.4-8.9) g/dL Albumin (3.5-5.7) g/dL Globulin (2.4-3.5) g/dL Albumin/Globulin Ratio (1.1-2.2) Urine Color (Yellow) Urine Clarity (Clear) Urine pH (5.0-8.0) pH Units Ur Specific [place] (1.010-1.025) Urine Protein (Neg-Trace) mg/dL Urine Glucose (UA) (Normal) mg/dL Urine Ketones (Negative) mg/dL Urine Blood (Negative) Urine Nitrite (Negative) Urine Bilirubin (Negative) Urine Urobilinogen (Normal) mg/dL Ur Leukocyte Esterase (Negative) Urine Microscopic RBC (0-3) per hpf Urine Microscopic WBC (0-3) per hpf Ur Squamous Epith Cells (None-Few) per lpf Urine Bacteria (None-Few) per hpf Ur Culture Indicated? (NO) 01/07/18 01/07/18 01/07/18 Range/Units 12:28 12:28 12:28 WBC (4.3-11.1) K/mcL RBC (3.82-4.97) M/mcL Hgb (11.5-15.4) g/dL Hct (35.3-44.9) % MCV (83.0-100.0) fL MCH (28.0-33.3) pg MCHC (31.6-35.5) g/dL RDW (11.5-14.5) % Plt Count (140-400) K/mcL MPV (9.4-12.4) fL Immature Gran % (0-4) % Seg Neutrophils % % Lymphocytes % % Monocytes % % Eosinophils % % Basophils % % Neutrophils # (1.6-8.9) K/mcL Lymphocytes # (0.6-4.6) K/mcL Monocytes # (0.0-1.3) K/mcL Eosinophils # (0.0-0.6) K/mcL Basophils # (0.0-0.2) K/mcL PT 12.8 H (9.4-12.1) Seconds INR 1.1 Sample Site ABG pH (7.32-7.45) pH Units ABG pCO2 (35-45) mmHg ABG pO2 (85-104) mmHg ABG HCO3 (21-27) mEq/L ABG Total CO2 (20-26) mEq/L ABG O2 Saturation (95-98) % ABG Base Excess (-2 to 3) mEq/L O2 Delivery Device Inspired O2 (1-15=lpm [id number]=%) Sodium 138 (136-145) mEq/L Potassium 4.0 (3.5-5.1) mEq/L Chloride 100 (98-107) mEq/L Carbon Dioxide 18 L (23-29) mEq/L BUN 75 H (8-23) mg/dL Creatinine 10.27 H (0.60-1.20) mg/dL Est GFR ( Amer) 5 L (> 60) Est GFR (Non-Af Amer) 4 L (> 60) BUN/Creatinine Ratio 7 (6-26) Glucose 170 H (70-105) mg/dL POC Glucose (70-99) mg/dL Calculated Osmolality 312 H (280-300) Lactic Acid (0.5-2.2) mmol/L Calcium 9.1 (8.6-10.3) mg/dL Total Bilirubin 0.5 (0.3-1.0) mg/dL Direct Bilirubin 0.2 (0.0-0.2) mg/dL Indirect Bilirubin 0.3 (0.0-1.2) mg/dL AST 20 (13-39) Units/L ALT 12 (7-52) Units/L Alkaline Phosphatase 151 H (34-104) Units/L Ammonia 30 (16-53) mcmol/L Troponin I 0.08 H* (< 0.04) ng/mL Serum Total Protein 6.8 (6.4-8.9) g/dL Albumin 2.8 L (3.5-5.7) g/dL Globulin 4.0 H (2.4-3.5) g/dL Albumin/Globulin Ratio 0.7 L (1.1-2.2) Urine Color (Yellow) Urine Clarity (Clear) Urine pH (5.0-8.0) pH Units Ur Specific [place] (1.010-1.025) Urine Protein (Neg-Trace) mg/dL Urine Glucose (UA) (Normal) mg/dL Urine Ketones (Negative) mg/dL Urine Blood (Negative) Urine Nitrite (Negative) Urine Bilirubin (Negative) Urine Urobilinogen (Normal) mg/dL Ur Leukocyte Esterase (Negative) Urine Microscopic RBC (0-3) per hpf Urine Microscopic WBC (0-3) per hpf Ur Squamous Epith Cells (None-Few) per lpf Urine Bacteria (None-Few) per hpf Ur Culture Indicated? (NO) 01/07/18 01/07/18 Range/Units 12:28 14:58 WBC (4.3-11.1) K/mcL RBC (3.82-4.97) M/mcL Hgb (11.5-15.4) g/dL Hct (35.3-44.9) % MCV (83.0-100.0) fL MCH (28.0-33.3) pg MCHC (31.6-35.5) g/dL RDW (11.5-14.5) % Plt Count (140-400) K/mcL MPV (9.4-12.4) fL Immature Gran % (0-4) % Seg Neutrophils % % Lymphocytes % % Monocytes % % Eosinophils % % Basophils % % Neutrophils # (1.6-8.9) K/mcL Lymphocytes # (0.6-4.6) K/mcL Monocytes # (0.0-1.3) K/mcL Eosinophils # (0.0-0.6) K/mcL Basophils # (0.0-0.2) K/mcL PT (9.4-12.1) Seconds INR Sample Site ABG pH (7.32-7.45) pH Units ABG pCO2 (35-45) mmHg ABG pO2 (85-104) mmHg ABG HCO3 (21-27) mEq/L ABG Total CO2 (20-26) mEq/L ABG O2 Saturation (95-98) % ABG Base Excess (-2 to 3) mEq/L O2 Delivery Device Inspired O2 (1-15=lpm [id number]=%) Sodium (136-145) mEq/L Potassium (3.5-5.1) mEq/L Chloride (98-107) mEq/L Carbon Dioxide (23-29) mEq/L BUN (8-23) mg/dL Creatinine (0.60-1.20) mg/dL Est GFR ( Amer) (> 60) Est GFR (Non-Af Amer) (> 60) BUN/Creatinine Ratio (6-26) Glucose (70-105) mg/dL POC Glucose (70-99) mg/dL Calculated Osmolality (280-300) Lactic Acid < 0.2 L (0.5-2.2) mmol/L Calcium (8.6-10.3) mg/dL Total Bilirubin (0.3-1.0) mg/dL Direct Bilirubin (0.0-0.2) mg/dL Indirect Bilirubin (0.0-1.2) mg/dL AST (13-39) Units/L ALT (7-52) Units/L Alkaline Phosphatase (34-104) Units/L Ammonia (16-53) mcmol/L Troponin I (< 0.04) ng/mL Serum Total Protein (6.4-8.9) g/dL Albumin (3.5-5.7) g/dL Globulin (2.4-3.5) g/dL Albumin/Globulin Ratio (1.1-2.2) Urine Color Yellow (Yellow) Urine Clarity Turbid A (Clear) Urine pH 7.0 (5.0-8.0) pH Units Ur Specific [place] 1.007 L (1.010-1.025) Urine Protein >=1000 H (Neg-Trace) mg/dL Urine Glucose (UA) Normal (Normal) mg/dL Urine Ketones Trace H (Negative) mg/dL Urine Blood Large H (Negative) Urine Nitrite Negative (Negative) Urine Bilirubin Negative (Negative) Urine Urobilinogen Normal (Normal) mg/dL Ur Leukocyte Esterase Large H (Negative) Urine Microscopic RBC Present (0-3) per hpf Urine Microscopic WBC TNTC H (0-3) per hpf Ur Squamous Epith Cells Present (None-Few) per lpf Urine Bacteria Present (None-Few) per hpf Ur Culture Indicated? YES A (NO) Critical Care Time Critical Care Time: Yes Total Critical Care Time: 45 Attestation: The high probability of a clinically significant, sudden or life threatening deterioration of the [] system(s) required my full and direct attention, intervention and personal management. The aggregate critical care time was [] minutes. This time is in addition to time spent performing reported procedures but includes the following: [] Data Review and interpretation [] Patient assessment and monitoring of vital signs [] Documentation [] Medication orders and management Attestation Statement - Attestation Attestation: I examined this patient and my medical decision-making was reviewed with the Resident Physician. I agree with the documented findings, disposition and treatment plan as described except to the extent set forth below. [id number] time provided Most information obtained from patient's daughter. The patient has missed the last 3 dialysis sessions due to vomiting and diarrhea as well as port access issues. Today she was increasingly confused as well as hypoxic upon EMS arrival. The patient is pale and weak appearing on exam 13:40: Patient is suspected to have a UTI given how turbid and thick her urine appeared after straight catheterization. I am awaiting the lab analysis. She has no elevated white blood cell count and was hypotensive. She meets criteria for sepsis. Empiric antibiotics started. Lactate within acceptable range. The patient is hypotensive but we are going to be judicious with the IV fluids because she has a history of dialysis-dependent ESRD and has not been dialyzed for the past one week
--- NOTE | 2018-01-07 12:10 | Emergency Department Note ---
Disposition Clinical Impression: ESRD (end stage renal disease) on dialysis, Metabolic encephalopathy Urinary tract infection Qualifiers: Urinary tract infection type: site unspecified Hematuria presence: without hematuria Qualified Code(s): N39.0 - Urinary tract infection, site not specified Sepsis Qualifiers: Sepsis type: sepsis due to unspecified organism Qualified Code(s): A41.9 - Sepsis, unspecified organism Hypotension Qualifiers: Hypotension type: unspecified hypotension type Qualified Code(s): I95.9 - Hypotension, unspecified Disposition: Admitted As Inpatient Condition: Fair Referrals: Wale Lam DO [Primary Care Provider] - Forms: ED Satisfaction Letter Time of Disposition: 16:18 General Adult HPI - General Chief complaint: ED Weakness Stated complaint: drowsy,low O2 Time Seen by Provider: 01/07/18 11:50 Source: family (daughter), EMS Mode of arrival: EMS Limitations: altered mental status Nursing Notes Reviewed: Yes Vital Signs Reviewed: Yes - History of Present Illness HPI Narrative: The patient is a 72 year old female with a history of HTN, HLD, DM, CAD, CKD on dialyis, and recurrent UTIs that was brought in by EMS for AMS. Per daughter's report, Patient has missed her last two dialysis treatments. She get dialysis on Tuesdays, , and Saturdays. Her last dialysis treatment was 7 days ago, She missed her dialysis treatment 4 days ago due to a blocked port. She missed another dialysis treatment 2 days ago due to nausea, vomiting, and diarrhea. Daughter says today when she went to visit the patient, she was lethargic, moaning, and not answering question appropriately. Daughter says the patient has not complained of fever, chills, chest pain, shortness of breath, URI symptoms, abdominal pain that she knows of. Patient does get recurrent UTIs and her last antibiotic course being 2 weeks ago. Further history limited secondary to patient altered mental status. I have re-performed and reviewed the history documented by the medical student, and I confirm its accuracy except as noted below 72-year-old female with hypertension, diabetes, CAD, CVA, CKD currently on hemodialysis Tuesday is presenting to emergency department via EMS for altered mental status. History is assisted by daughter. Patient recently admitted here [facility] for sepsis secondary to urinary tract infection and recently discharged a week ago after two-month admission. Patients at nursing facility at this time. She has been requiring hemodialysis but has Mr. the past 3 sessions her most recent one a week ago to the state. She has to urinary stents in place from her prior hospitalization. Today the daughter noted the patient was more lethargic and had low O2 reading. Patient is now require oxygen which she normally did not before. They stated this past Tuesday her port was clogged and they were unable to perform dialysis , she missed it as she began experiencing vomiting and diarrhea. Today she was too ill to go. Her health sciences program coordinator is Dr. Kearney. - Related Data Home Medications Medication Instructions Recorded Confirmed Aspirin Enteric Coated [Aspirin EC] 81 mg PO DAILY 08/20/15 01/07/18 Insulin Glargine,Hum.rec.anlog 45 units SQ HS 06/10/16 01/07/18 [Ian Raymundo] Multivit-Minerals/Folic/Ginkgo 1 tab PO QAM 06/10/16 01/07/18 [One Daily For Women 50+ Adv Tb] Furosemide [Lasix] 40 mg PO QAM 10/03/16 01/07/18 Insulin ASPART [Novolog Flexpen] 25 unit SQ TIDWM 10/03/16 01/07/18 Clopidogrel [Plavix] 75 mg PO DAILY 11/03/17 01/07/18 Oxybutynin Chloride [Ditropan Xl] 10 mg PO DAILY 11/03/17 01/07/18 Ascorbic Acid [Vitamin C] 500 mg PO BID 11/17/17 01/07/18 Amlodipine Besylate 10 mg PO QAM 01/07/18 01/07/18 Ergocalciferol (VITAMIN D2) 50,000 unit PO TU 01/07/18 01/07/18 [Vitamin D2] Ferrous Sulfate 325 mg PO DAILY 01/07/18 01/07/18 LORazepam [Ativan] 1 mg PO HS 01/07/18 01/07/18 Metoprolol Succinate 50 mg PO HS 01/07/18 01/07/18 Metoprolol XL (24 HR) Succ [Toprol 25 mg PO DAILY 01/07/18 01/07/18 Xl] Rosuvastatin Calcium [Crestor] 10 mg PO DAILY 01/07/18 01/07/18 Previous Rx's Medication Instructions Recorded Dextromethorphan HBr/Quinidine 1 each PO DAILY 30 Days #30 capsule 12/08/17 [Nuedexta 20-10 mg Capsule] Escitalopram [Lexapro] 10 mg PO DAILY #20 tablet 12/30/17 Lisinopril [Zestril] 2.5 mg PO DAILY #10 tablet 12/30/17 Memantine [Namenda] 10 mg PO BID #10 tablet 12/30/17 Allergies Allergy/AdvReac Type Severity Reaction Status Date / Time venom-honey bee Allergy Severe Swelling Verified 01/07/18 13:55 [bee venom (honey bee)] of Lip/Tongue/Throat Cortisone Allergy Mild Hives Verified 01/07/18 13:55 Penicillins Allergy See Verified 01/07/18 13:55 Comments NSAIDS (Non-Steroidal AdvReac Mild UPSET Verified 01/07/18 13:55 Anti-Inflamma STOMACH cefazolin [From Ancef] AdvReac Hives Verified 01/07/18 13:55 Fwsvuzt-Vzy-Afp Reductase AdvReac Muscle Pain Verified 01/07/18 13:55 Inhibitor [Statins] GRAPE FLAVOR Allergy Mild Swelling Uncoded 01/07/18 13:55 of the Eye Limitations: ROS unobtainable due to patients medical condition Constitutional: Reports: weakness Respiratory: Reports: cough, dyspnea Gastrointestinal: Reports: nausea, vomiting, diarrhea Endocrine: Reports: fatigue Past Medical History - Past Medical History Attestation: Yes The following information was validated with the patient. Source: old records reviewed, obtained from family Medical history: Reports: cardiomyopathy, CHF, coronary artery disease, CVA, diabetes, GERD, hyperlipidemia, hypertension, kidney stones, myocardial infarction, peripheral artery disease, renal disease, TIA Surgical history: Reports: appendectomy, breast surgery, carotid endarterectomy , cholecystectomy, coronary bypass (CABG), hysterectomy, pacemaker/AICD, LE vascular intervention Psychiatric history: Reports: no psych history - Social History Smoking Status: Former smoker Smokeless Tobacco Status: No Alcohol use: Reports: none Drug use: Reports: none Physical Exam - General Limitations: altered mental status General appearance: obese, other (somnolent) - Head Head exam: atraumatic, normocephalic, normal inspection - Eye Eye exam: Present: normal appearance. Absent: scleral icterus, conjunctival injection - ENT ENT exam: mucous membranes moist, normal external ear exam - Neck Neck exam: Present: normal inspection, trachea midline. Absent: thyromegaly - Chest Chest inspection: Present: normal inspection, symmetric chest wall rise, other ( right subclavian HD catheter, pacemaker left chest wall) - Respiratory Respiratory exam: Present: normal lung sounds bilaterally, other (diminished). Absent: respiratory distress, wheezes - Cardiovascular Cardiovascular exam: Present: regular rate, normal rhythm, normal heart sounds - Abdominal Exam Abdominal exam: Present: soft (obese), Non-Tender, normal bowel sounds. Absent : distention, guarding - Extremities Exam Extremities exam: Present: normal inspection, full ROM. Absent: tenderness, pedal edema - Neurological Exam Neurological exam: Present: alert - Expanded Neurological Exam Patient oriented to: Present: person. Absent: place ([facility]), time Coma Scale Eye Opening: Spontaneous Coma Scale Motor Response: Obeys Commands Coma Scale Verbal Response: Confused Coma Scale Total: 14 - Psychiatric Psychiatric exam: Present: flat affect - Expanded Psychiatric Exam Expanded psych exam: Present: poor eye contact - Skin Skin exam: Present: warm, dry, intact, normal color Course - Reevaluation(s) Reevaluation #1: Patient had turbid linares urine concerning for urinary tract infection and urosepsis. She is also hypotensive here and will be cautiously fluid resuscitated with 500 mL of normal saline. Time: 12:35 Reevaluation #2: Patient had a critical troponin 0.08. Her creatinine is 10.3 suspect this is likely demand ischemia versus poor clearance. This is the best her troponin has been this year as it is typically more elevated. Her potassium is for. EKG did not reveal any peaked T waves. Her lactate is less than 0.2. Her white blood cell count is 19.3. At this time patient will be admitted to the hospital service with nephrology consultation. She does not require emergent dialysis at this time. Time: 13:47 Reevaluation #3: Informed urinalysis was mislabeled and delayed patient's transfer to CT scan. Anticipate admission. Time: 15:02 - Consultations Consultation #1: Spoke with on-call health sciences program coordinator Dr. Kearney who agrees with admission and current management without need for emergent dialysis. Patient will be evaluated on the floor but nephrology team and will interrogate the dialysis catheter. Patient will be treated for urinary tract infection with levofloxacin. Time: 13:48 Consultation #2: Spoke with on-call hospitalist erin Loya to admit for UTI, sepsis, hypotension , ESRD, metabolic encephalopathy. Patient was initially hypotensive and remains MAP greater than 60 responding with fluid resuscitation however we have been very cautious given her renal disease. She is not in septic shock as her lactate. Requests for the patient be admitted to the intensive care unit to be closely monitored. She is otherwise in no acute distress and is resting comfortably Time: 16:13 Vital Signs Temperature 98.4 F 01/07/18 11:48 Pulse Rate 67 01/07/18 11:48 Respiratory Rate 20 01/07/18 11:48 Blood Pressure 74/48 01/07/18 11:48 O2 Sat by Pulse Oximetry 96 01/07/18 11:48 Temperature 98.4 F 01/07/18 11:48 Pulse Rate 58 01/07/18 15:40 Respiratory Rate 18 01/07/18 15:40 Blood Pressure 86/45 01/07/18 15:40 O2 Sat by Pulse Oximetry 98 01/07/18 15:40 Oxygen Delivery Oxygen Delivery Nasal Cannula Medical Decision Making - MDM Narrative Medical decision making narrative: Patient was discussed with my attending physician who agrees with ED management and final disposition. They independently evaluated the patient. Please refer to their attestation to this encounter for additional information. This note was generated by [employer] voice recognition software and as a result grammatical or spelling errors may occur using this program. - Medical Records Medical records reviewed: Yes I reviewed the patient's medical records. - Lab Data Lab results reviewed: Yes I reviewed the patient's lab results. Result diagrams: 01/07/18 12:28 01/07/18 12:28 Lab Results 01/07/18 01/07/18 01/07/18 Range/Units 12:23 12:27 12:28 WBC 19.3 H (4.3-11.1) K/mcL RBC 3.31 L (3.82-4.97) M/mcL Hgb 9.0 L (11.5-15.4) g/dL Hct 29.3 L (35.3-44.9) % MCV 88.5 (83.0-100.0) fL MCH 27.2 L (28.0-33.3) pg MCHC 30.7 L (31.6-35.5) g/dL RDW 16.7 H (11.5-14.5) % Plt Count 438 H (140-400) K/mcL MPV 9.8 (9.4-12.4) fL Immature Gran % 1.1 (0-4) % Seg Neutrophils % 90.4 % Lymphocytes % 3.8 % Monocytes % 3.7 % Eosinophils % 0.8 % Basophils % 0.2 % Neutrophils # 17.4 H (1.6-8.9) K/mcL Lymphocytes # 0.7 (0.6-4.6) K/mcL Monocytes # 0.7 (0.0-1.3) K/mcL Eosinophils # 0.2 (0.0-0.6) K/mcL Basophils # 0.0 (0.0-0.2) K/mcL PT (9.4-12.1) Seconds INR Sample Site R Brach ABG pH 7.41 (7.32-7.45) pH Units ABG pCO2 32 L (35-45) mmHg ABG pO2 81 L (85-104) mmHg ABG HCO3 21 (21-27) mEq/L ABG Total CO2 22 (20-26) mEq/L ABG O2 Saturation 96 (95-98) % ABG Base Excess -4 L (-2 to 3) mEq/L O2 Delivery Device Cannula Inspired O2 2.0 (1-15=lpm [id number]=%) Sodium (136-145) mEq/L Potassium (3.5-5.1) mEq/L Chloride (98-107) mEq/L Carbon Dioxide (23-29) mEq/L BUN (8-23) mg/dL Creatinine (0.60-1.20) mg/dL Est GFR ( Amer) (> 60) Est GFR (Non-Af Amer) (> 60) BUN/Creatinine Ratio (6-26) Glucose (70-105) mg/dL POC Glucose 211 H (70-99) mg/dL Calculated Osmolality (280-300) Lactic Acid (0.5-2.2) mmol/L Calcium (8.6-10.3) mg/dL Total Bilirubin (0.3-1.0) mg/dL Direct Bilirubin (0.0-0.2) mg/dL Indirect Bilirubin (0.0-1.2) mg/dL AST (13-39) Units/L ALT (7-52) Units/L Alkaline Phosphatase (34-104) Units/L Ammonia (16-53) mcmol/L Troponin I (< 0.04) ng/mL Serum Total Protein (6.4-8.9) g/dL Albumin (3.5-5.7) g/dL Globulin (2.4-3.5) g/dL Albumin/Globulin Ratio (1.1-2.2) Urine Color (Yellow) Urine Clarity (Clear) Urine pH (5.0-8.0) pH Units Ur Specific [place] (1.010-1.025) Urine Protein (Neg-Trace) mg/dL Urine Glucose (UA) (Normal) mg/dL Urine Ketones (Negative) mg/dL Urine Blood (Negative) Urine Nitrite (Negative) Urine Bilirubin (Negative) Urine Urobilinogen (Normal) mg/dL Ur Leukocyte Esterase (Negative) Urine Microscopic RBC (0-3) per hpf Urine Microscopic WBC (0-3) per hpf Ur Squamous Epith Cells (None-Few) per lpf Urine Bacteria (None-Few) per hpf Ur Culture Indicated? (NO) 01/07/18 01/07/18 01/07/18 Range/Units 12:28 12:28 12:28 WBC (4.3-11.1) K/mcL RBC (3.82-4.97) M/mcL Hgb (11.5-15.4) g/dL Hct (35.3-44.9) % MCV (83.0-100.0) fL MCH (28.0-33.3) pg MCHC (31.6-35.5) g/dL RDW (11.5-14.5) % Plt Count (140-400) K/mcL MPV (9.4-12.4) fL Immature Gran % (0-4) % Seg Neutrophils % % Lymphocytes % % Monocytes % % Eosinophils % % Basophils % % Neutrophils # (1.6-8.9) K/mcL Lymphocytes # (0.6-4.6) K/mcL Monocytes # (0.0-1.3) K/mcL Eosinophils # (0.0-0.6) K/mcL Basophils # (0.0-0.2) K/mcL PT 12.8 H (9.4-12.1) Seconds INR 1.1 Sample Site ABG pH (7.32-7.45) pH Units ABG pCO2 (35-45) mmHg ABG pO2 (85-104) mmHg ABG HCO3 (21-27) mEq/L ABG Total CO2 (20-26) mEq/L ABG O2 Saturation (95-98) % ABG Base Excess (-2 to 3) mEq/L O2 Delivery Device Inspired O2 (1-15=lpm [id number]=%) Sodium 138 (136-145) mEq/L Potassium 4.0 (3.5-5.1) mEq/L Chloride 100 (98-107) mEq/L Carbon Dioxide 18 L (23-29) mEq/L BUN 75 H (8-23) mg/dL Creatinine 10.27 H (0.60-1.20) mg/dL Est GFR ( Amer) 5 L (> 60) Est GFR (Non-Af Amer) 4 L (> 60) BUN/Creatinine Ratio 7 (6-26) Glucose 170 H (70-105) mg/dL POC Glucose (70-99) mg/dL Calculated Osmolality 312 H (280-300) Lactic Acid (0.5-2.2) mmol/L Calcium 9.1 (8.6-10.3) mg/dL Total Bilirubin 0.5 (0.3-1.0) mg/dL Direct Bilirubin 0.2 (0.0-0.2) mg/dL Indirect Bilirubin 0.3 (0.0-1.2) mg/dL AST 20 (13-39) Units/L ALT 12 (7-52) Units/L Alkaline Phosphatase 151 H (34-104) Units/L Ammonia 30 (16-53) mcmol/L Troponin I 0.08 H* (< 0.04) ng/mL Serum Total Protein 6.8 (6.4-8.9) g/dL Albumin 2.8 L (3.5-5.7) g/dL Globulin 4.0 H (2.4-3.5) g/dL Albumin/Globulin Ratio 0.7 L (1.1-2.2) Urine Color (Yellow) Urine Clarity (Clear) Urine pH (5.0-8.0) pH Units Ur Specific [place] (1.010-1.025) Urine Protein (Neg-Trace) mg/dL Urine Glucose (UA) (Normal) mg/dL Urine Ketones (Negative) mg/dL Urine Blood (Negative) Urine Nitrite (Negative) Urine Bilirubin (Negative) Urine Urobilinogen (Normal) mg/dL Ur Leukocyte Esterase (Negative) Urine Microscopic RBC (0-3) per hpf Urine Microscopic WBC (0-3) per hpf Ur Squamous Epith Cells (None-Few) per lpf Urine Bacteria (None-Few) per hpf Ur Culture Indicated? (NO) 01/07/18 01/07/18 Range/Units 12:28 14:58 WBC (4.3-11.1) K/mcL RBC (3.82-4.97) M/mcL Hgb (11.5-15.4) g/dL Hct (35.3-44.9) % MCV (83.0-100.0) fL MCH (28.0-33.3) pg MCHC (31.6-35.5) g/dL RDW (11.5-14.5) % Plt Count (140-400) K/mcL MPV (9.4-12.4) fL Immature Gran % (0-4) % Seg Neutrophils % % Lymphocytes % % Monocytes % % Eosinophils % % Basophils % % Neutrophils # (1.6-8.9) K/mcL Lymphocytes # (0.6-4.6) K/mcL Monocytes # (0.0-1.3) K/mcL Eosinophils # (0.0-0.6) K/mcL Basophils # (0.0-0.2) K/mcL PT (9.4-12.1) Seconds INR Sample Site ABG pH (7.32-7.45) pH Units ABG pCO2 (35-45) mmHg ABG pO2 (85-104) mmHg ABG HCO3 (21-27) mEq/L ABG Total CO2 (20-26) mEq/L ABG O2 Saturation (95-98) % ABG Base Excess (-2 to 3) mEq/L O2 Delivery Device Inspired O2 (1-15=lpm [id number]=%) Sodium (136-145) mEq/L Potassium (3.5-5.1) mEq/L Chloride (98-107) mEq/L Carbon Dioxide (23-29) mEq/L BUN (8-23) mg/dL Creatinine (0.60-1.20) mg/dL Est GFR ( Amer) (> 60) Est GFR (Non-Af Amer) (> 60) BUN/Creatinine Ratio (6-26) Glucose (70-105) mg/dL POC Glucose (70-99) mg/dL Calculated Osmolality (280-300) Lactic Acid < 0.2 L (0.5-2.2) mmol/L Calcium (8.6-10.3) mg/dL Total Bilirubin (0.3-1.0) mg/dL Direct Bilirubin (0.0-0.2) mg/dL Indirect Bilirubin (0.0-1.2) mg/dL AST (13-39) Units/L ALT (7-52) Units/L Alkaline Phosphatase (34-104) Units/L Ammonia (16-53) mcmol/L Troponin I (< 0.04) ng/mL Serum Total Protein (6.4-8.9) g/dL Albumin (3.5-5.7) g/dL Globulin (2.4-3.5) g/dL Albumin/Globulin Ratio (1.1-2.2) Urine Color Yellow (Yellow) Urine Clarity Turbid A (Clear) Urine pH 7.0 (5.0-8.0) pH Units Ur Specific [place] 1.007 L (1.010-1.025) Urine Protein >=1000 H (Neg-Trace) mg/dL Urine Glucose (UA) Normal (Normal) mg/dL Urine Ketones Trace H (Negative) mg/dL Urine Blood Large H (Negative) Urine Nitrite Negative (Negative) Urine Bilirubin Negative (Negative) Urine Urobilinogen Normal (Normal) mg/dL Ur Leukocyte Esterase Large H (Negative) Urine Microscopic RBC Present (0-3) per hpf Urine Microscopic WBC TNTC H (0-3) per hpf Ur Squamous Epith Cells Present (None-Few) per lpf Urine Bacteria Present (None-Few) per hpf Ur Culture Indicated? YES A (NO) - Radiology Data Radiology results reviewed: Yes I reviewed the patient's radiology results. Chest X-Ray 01/07/18 11:54 IMPRESSION: Mild pulmonary edema. Nonspecific retrocardiac opacity likely represents atelectasis with pneumonia not excluded. D/ / 01/07/2018 13:28:39 Leno Buchanan MD / Antoinette Sherman Interpreting Provider: Leno Buchanan MD Head CT 01/07/18 11:55 IMPRESSION: Sequela of chronic small vessel ischemic disease. Improving aeration of the sphenoid sinuses. Obstruction of the external auditory canals with bilateral cerumen plugs. D/ / 01/07/2018 15:38:35 Griffin Peters MD / Antoinette Sherman Interpreting Provider: Griffin Peters MD Abdomen/Pelvis CT 01/07/18 12:03 IMPRESSION: 1. Patchy airspace disease seen at the lung bases bilaterally left greater than right could represent pneumonia 2. Status post cholecystectomy 3. Double-J stents in place bilaterally with mild bilateral hydronephrosis 4. The appendix is not definitely visualized but no secondary signs of appendicitis 5. Colonic diverticulosis without evidence for diverticulitis D/ / Juan David Artis MD / Juan David Artis MD Interpreting Provider: Juan David Artis MD - EKG Data EKG #1 EKG attestation: Yes I reviewed and interpreted this EKG. EKG results narrative: EKG performed 1155 stool paced rhythm 73 beats per minute, no Sgarbossa criteria , no old EKG available for comparison at this time. No acute ischemic changes.
[2018-01-07 12:26] LABS: ABG Base Excess -4 mEq/L (-2 to 3); ABG HCO3 21 mEq/L (21-27); ABG Oxygen Saturation 96 % (95-98); ABG PCO2 32 mmHg (35-45); ABG PH 7.41 pH Units (7.32-7.45); ABG PO2 81 mmHg (85-104); ABG TCO2 22 mEq/L (20-26)
[2018-01-07 12:51] LABS: Basophils % 0.2 %; Eosinophils # 0.2 K/mcL (0.0-0.6); Eosinophils % 0.8 %; Hematocrit 29.3 % (35.3-44.9); Immature Granulocytes % 1.1 % (0-4); Lymphocytes # 0.7 K/mcL (0.6-4.6); Lymphocytes % 3.8 %; Mean Corpuscular HGB Conc 30.7 g/dL (31.6-35.5); Mean Corpuscular Hemoglobin 27.2 pg (28.0-33.3); Mean Corpuscular Volume 88.5 fL (83.0-100.0); Mean Platelet Volume 9.8 fL (9.4-12.4); Monocytes # 0.7 K/mcL (0.0-1.3); Monocytes % 3.7 %; Neutrophils # 17.4 K/mcL (1.6-8.9); Platelet Count 438 K/mcL (140-400); Red Blood Count 3.31 M/mcL (3.82-4.97); Red Cell Distribution Width 16.7 % (11.5-14.5); Segmented Neutrophils % 90.4 %
[2018-01-07] MEDS ORDERED: 0.9 % Sodium Chloride 500 ML IVC ONE ×2 (12:52→16:47)
[2018-01-07 12:56] LABS: INR 1.1; Prothrombin Time 12.8 Seconds (9.4-12.1)
[2018-01-07 13:31] LABS: Albumin 2.8 g/dL (3.5-5.7); Albumin/Globulin Ratio 0.7 (1.1-2.2); Bilirubin,Direct 0.2 mg/dL (0.0-0.2); Bilirubin,Indirect 0.3 mg/dL (0.0-1.2); Bilirubin,Total 0.5 mg/dL (0.3-1.0); Calcium 9.1 mg/dL (8.6-10.3); Total Protein 6.8 g/dL (6.4-8.9)
[2018-01-07 13:33] LABS: Troponin I 0.08 ng/mL (< 0.04)
[2018-01-07] MEDS ORDERED: Levofloxacin 750 MG/150 ML 750 MG/150 ML BAG IVPB ONE (13:36)
[2018-01-07 15:07] LABS: Bilirubin,Urine Negative (Negative); Blood,Urine Large (Negative); Clarity,Urine Turbid (Clear); Glucose,Urine (UA) Normal (Normal); Ketones,Urine Trace mg/dL (Negative); Leukocyte Esterase,Urine Large (Negative); Nitrite,Urine Negative (Negative); Protein,Urine >=1000 mg/dL (Neg-Trace); Specific Gravity,Urine 1.007 (1.010-1.025); Urobilinogen,Urine Normal (Normal)
[2018-01-07 15:08] LABS: Color,Urine Yellow (Yellow)
[2018-01-07 15:18] LABS: WBC,Urine TNTC per hpf (0-3)
[2018-01-07 15:19] LABS: Bacteria,Urine Present per hpf (None-Few); RBC,Urine Present per hpf (0-3); Squamous Epithelial Cell,Urine Present per lpf (None-Few)
--- NOTE | 2018-01-07 18:15 | Internal Med History&Physical ---
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 Bentley is a 72 year old female with past medical history of end-stage renal disease, history of CVA. Patient was transferred from [facility] for evaluation for altered mental status, hypotension and hypoxemia. Patient is very confused and poor historian, history obtained from medical record and daughter's report to emergency room staff. Based on daughter report , she stated her mom missed 3 dialysis last week secondary to her nausea vomiting, diarrhea, last time she was unable to be dialysis due to failure to access dialysis catheter . Patient today was so lethargic so sleepy, on check her vital sign patient was hypotensive as well as her situation was down to 89 . Patient was brought to the emergency room urinalysis was positive for urinary tract infection. Patient was given bolus fluid 500. Region continued to be lethargic alert oriented 0. Patient respond to command,based on ECF , patient has expressive aphasia , she is total assist , decrease oral intake , Based on ECF staff , patient has been in the hospital more than [facility] , recently had diarrhea Past Med Surg Social Fam HX - Past Medical History Medical history: cardiomyopathy, CHF, coronary artery disease, CVA, diabetes, GERD, hyperlipidemia, hypertension, kidney stones, myocardial infarction, peripheral artery disease, TIA, other (ESRD) Additional medical history: renal insufficiency, blood thinner Psychiatric history: no psych history - Past Surgical History Surgical History: appendectomy, breast surgery, carotid endarterectomy, cholecystectomy, coronary bypass (CABG), hysterectomy, pacemaker/AICD, LE vascular intervention Additional surgical history: cyst removed in left breast, left chest pacer/AICD - Social History Smoking Status: Former smoker Smokeless Tobacco Status: No Alcohol use: none Drug use: none - Family History Mother Living Status: Hx Family Cardiac Disorders: Yes (HTN) Hx Family Endocrine Disorder: Yes (diabetes) Hx Family Neurologic Disorders: Yes (2 strokes) Father Living Status: Hx Family Cardiac Disorders: Yes Hx Family Respiratory Disorders: Yes Hx Family Neurologic Disorders: Yes Internal Medicine - H&P: Meds Aspirin Enteric Coated [Aspirin EC] 81 mg PO DAILY 08/20/15 [History] Insulin Glargine,Hum.rec.anlog [Toujeo Solostar] 45 units SQ HS 06/10/16 [ History] Multivit-Minerals/Folic/Ginkgo [One Daily For Women 50+ Adv Tb] 1 tab PO QAM 12/19 [History] Furosemide [Lasix] 40 mg PO QAM 10/03/16 [History] Insulin ASPART [Novolog Flexpen] 25 unit SQ TIDWM 10/03/16 [History] Clopidogrel [Plavix] 75 mg PO DAILY 11/03/17 [History] Oxybutynin Chloride [Ditropan Xl] 10 mg PO DAILY 11/03/17 [History] Ascorbic Acid [Vitamin C] 500 mg PO BID 11/17/17 [History] Dextromethorphan HBr/Quinidine [Nuedexta 20-10 mg Capsule] 1 each PO DAILY 30 Days #30 capsule 12/08/17 [Rx] Escitalopram [Lexapro] 10 mg PO DAILY #20 tablet 12/30/17 [Rx] Lisinopril [Zestril] 2.5 mg PO DAILY #10 tablet 12/30/17 [Rx] Memantine [Namenda] 10 mg PO BID #10 tablet 12/30/17 [Rx] Amlodipine Besylate 10 mg PO QAM 01/07/18 [History] Ergocalciferol (VITAMIN D2) [Vitamin D2] 50,000 unit PO TU 01/07/18 [History] Ferrous Sulfate 325 mg PO DAILY 01/07/18 [History] LORazepam [Ativan] 1 mg PO HS 01/07/18 [History] Metoprolol Succinate 50 mg PO HS 01/07/18 [History] Metoprolol XL (24 HR) Succ [Toprol Xl] 25 mg PO DAILY 01/07/18 [History] Rosuvastatin Calcium [Crestor] 10 mg PO DAILY 01/07/18 [History] 3 Allergy/AdvReac Type Severity Reaction Status Date / Time venom-honey bee Allergy Severe Swelling Verified 01/07/18 13:55 [bee venom (honey bee)] of Lip/Tongue/Throat Cortisone Allergy Mild Hives Verified 01/07/18 13:55 Penicillins Allergy See Verified 01/07/18 13:55 Comments NSAIDS (Non-Steroidal AdvReac Mild UPSET Verified 01/07/18 13:55 Anti-Inflamma STOMACH cefazolin [From Anc] AdvReac Hives Verified 01/07/18 13:55 Hsyhtaz-Rzd-Gkc Reductase AdvReac Muscle Pain Verified 01/07/18 13:55 Inhibitor [Statins] GRAPE FLAVOR Allergy Mild Swelling Uncoded 01/07/18 13:55 of the Eye ROS unobtainable: due to mental status All Systems PM: Unable to obtain review of system because her mental status - Constitutional Vitals: Temp Pulse Resp BP Pulse Ox 98.4 F 65 18 87/52 99 01/07/18 11:48 01/07/18 18:05 01/07/18 18:05 01/07/18 18:05 01/07/18 18:05 General appearance: Present: A&O X 0 Exam: As above - Head Head exam: Present: atraumatic, normocephalic - Neck Neck exam general surgery: Present: supple, trachea midline. Absent: lymphadenopathy - Respiratory Respiratory exam: Present: decreased breath sounds. Absent: accessory muscle use, rales, rhonchi, wheezes - Cardiovascular Cardiovascular exam: Present: RRR, +S1, +S2, systolic murmur. Absent: diastolic murmur, gallop, rubs - GI/Abdominal GI/Abdominal exam: Present: normal bowel sounds, soft, tenderness (Mild diffuse abdominal tenderness), no peritoneal signs - Extremities Exam Extremities exam: Present: warm. Absent: calf tenderness, cyanotic, pedal edema (Right heel ulcer stage II dry no signs of infection) - Neurological Exam Neurological exam: Absent: facial droop (Patient is alert oriented 0, minimum movement bilateral upper extremities, minimal movement right lower extremities, no movement left lower extremities, based on F staff this is her baseline) - Skin Skin exam: Present: dry (Left heel ulcer stage II dry) Internal Med - H&P Results - Labs CBC & Chem 7: 01/07/18 12:28 01/07/18 12:28 Labs: Short CBC 01/07/18 Range/Units 12:28 WBC 19.3 H (4.3-11.1) K/mcL Hgb 9.0 L (11.5-15.4) g/dL Hct 29.3 L (35.3-44.9) % Plt Count 438 H (140-400) K/mcL Neutrophils # 17.4 H (1.6-8.9) K/mcL BMP 01/07/18 12:28 Sodium 138 Potassium 4.0 Chloride 100 Carbon Dioxide 18 L BUN 75 H Creatinine 10.27 H Glucose 170 H Calcium 9.1 Cardiac Enzymes 01/07/18 Range/Units 12:28 Troponin I 0.08 H* (< 0.04) ng/mL Liver Function 01/07/18 Range/Units 12:28 Total Bilirubin 0.5 (0.3-1.0) mg/dL Direct Bilirubin 0.2 (0.0-0.2) mg/dL AST 20 (13-39) Units/L ALT 12 (7-52) Units/L Alkaline Phosphatase 151 H (34-104) Units/L Albumin 2.8 L (3.5-5.7) g/dL Urine 01/07/18 Range/Units 14:58 Urine Color Yellow (Yellow) Urine Clarity Turbid A (Clear) Urine pH 7.0 (5.0-8.0) pH Units Ur Specific Mccormick 1.007 L (1.010-1.025) Urine Protein >=1000 H (Neg-Trace) mg/dL Urine Glucose (UA) Normal (Normal) mg/dL - ABG Interpretation ABG results: 01/07/18 12:23 ABG pH 7.41 ABG pCO2 32 L ABG pO2 81 L ABG HCO3 21 ABG Total CO2 22 ABG O2 Saturation 96 ABG Base Excess -4 L - Impressions ITS Impressions Chest X-Ray 01/07/18 11:54 IMPRESSION: Mild pulmonary edema. Nonspecific retrocardiac opacity likely represents atelectasis with pneumonia not excluded. D/ / 01/07/2018 13:28:39 Leno Buchanan MD / Antoinette Sherman Interpreting Provider: Leno Buchanan MD Head CT 01/07/18 11:55 IMPRESSION: Sequela of chronic small vessel ischemic disease. Improving aeration of the sphenoid sinuses. Obstruction of the external auditory canals with bilateral cerumen plugs. D/ / 01/07/2018 15:38:35 Griffin Peters MD / Antoinette Sherman Interpreting Provider: Griffin Peters MD Abdomen/Pelvis CT 01/07/18 12:03 IMPRESSION: 1. Patchy airspace disease seen at the lung bases bilaterally left greater than right could represent pneumonia 2. Status post cholecystectomy 3. Double-J stents in place bilaterally with mild bilateral hydronephrosis 4. The appendix is not definitely visualized but no secondary signs of appendicitis 5. Colonic diverticulosis without evidence for diverticulitis D/ / Juan David Artis MD / Juan David Artis MD Interpreting Provider: Juan David Artis MD - Assessment and plan (1) Volume depletion Current Visit: Yes Status: Acute (2) Hypotension Current Visit: Yes Status: Acute Qualifiers: Hypotension type: other hypotension type Qualified Code(s): I95.89 - Other hypotension (3) Metabolic encephalopathy Current Visit: Yes Status: Acute (4) Urinary tract infection Current Visit: Yes Status: Acute Qualifiers: Urinary tract infection type: site unspecified Hematuria presence: without hematuria Qualified Code(s): N39.0 - Urinary tract infection, site not specified Code(s): N39.0 - Urinary tract infection, site not specified SNOMED Code(s): 09449540 (5) ESRD (end stage renal disease) on dialysis Current Visit: Yes Status: Chronic - Time Spent With Patient Patient has history of staph bacteremia in the past, History of Yolanda infection urine . We will start patient on vancomycin pharmacist to dose, with active broad-spectrum antifungal therapy until we have final culture, close monitoring the patient's vital sign fluid bolus as needed, nephrology consult for dialysis, with her nutritional status and cannot rule out SEVER vitamin B12 1 deficiency, WILL ADD THIAMIN. CAT scan brain no evidence of stroke, check CBC BMP next morning , Total time spent 55 MINUTES is greater than 50% in coordination of care (as documented) at patient's floor/unit and/or counseling patient:
[2018-01-07] MEDS ORDERED: Naloxone 0.4 MG/ML INJ IVP PRN (18:45)
[2018-01-07] MEDS ORDERED: 0.9 % Sodium Chloride 500 ML IVC SCH (18:45)
[2018-01-07] MEDS ORDERED: Micafungin 100 MG in 0.9 % Sodium Chloride Mini Bag 100 ML IVPB SCH (19:00)
[2018-01-07] MEDS: Albumin 25% 25gram/100mL 25 GM/100 ML IV.SOLN IVC SCH ×2 (21:02→22:19)
[2018-01-07] MEDS: Thiamine (B-1) 500 MG in 0.9 % Sodium Chloride 100 ML IVPB SCH (21:02)
[2018-01-07] MEDS: Micafungin 100 MG in 0.9 % Sodium Chloride Mini Bag 100 ML IVPB SCH (21:34)
[2018-01-07] MEDS ORDERED: Ringers Solution, Lactated 500 ML IVC ONE (22:54)
[2018-01-08 04:35] LABS: Basophils % 0.2 %; Eosinophils # 0.3 K/mcL (0.0-0.6); Eosinophils % 2.8 %; Hematocrit 24.2 % (35.3-44.9); Immature Granulocytes % 0.5 % (0-4); Lymphocytes # 0.7 K/mcL (0.6-4.6); Lymphocytes % 6.7 %; Mean Corpuscular HGB Conc 30.6 g/dL (31.6-35.5); Mean Corpuscular Hemoglobin 27.3 pg (28.0-33.3); Mean Corpuscular Volume 89.3 fL (83.0-100.0); Mean Platelet Volume 9.8 fL (9.4-12.4); Monocytes # 0.6 K/mcL (0.0-1.3); Monocytes % 5.4 %; Neutrophils # 9.3 K/mcL (1.6-8.9); Platelet Count 312 K/mcL (140-400); Red Blood Count 2.71 M/mcL (3.82-4.97); Red Cell Distribution Width 16.6 % (11.5-14.5); Segmented Neutrophils % 84.4 %
[2018-01-08 04:39] LABS: Hemoglobin 7.4 g/dL (11.5-15.4)
[2018-01-08 04:52] LABS: Calcium 8.4 mg/dL (8.6-10.3); Magnesium 2.2 mg/dL (1.6-2.6); Potassium 3.4 mEq/L (3.5-5.1)
[2018-01-08] MEDS ORDERED: Potassium Chloride Elixir 20 MEQ/15 ML UDC PO ONE (09:01)
[2018-01-08] MEDS: Thiamine (B-1) 500 MG in 0.9 % Sodium Chloride 100 ML IVPB SCH ×2 (09:21→20:28)
--- NOTE | 2018-01-08 11:04 | Nephrology Consult Note ---
Date of Encounter: 01/08/18 Time of Encounter: 11:00 Assessment and Plan (1) Acute kidney injury superimposed on chronic kidney disease Status: Chronic No acute indication for HD today; lytes stable with no signs of volume overload. Quite concerned whether intermittent HD feasible if still hypotensive by tomorrow Agree with IVF for now but in limited amounts Avoid nephrotoxins if possible; vanco by levels only (2) Urinary tract infection Status: Acute Continue abx per primary team Qualifiers: Urinary tract infection type: site unspecified Hematuria presence: without hematuria Qualified Code(s): N39.0 - Urinary tract infection, site not specified (3) Anemia Status: Chronic Hgb noted dropping from 9 to 7.4. Etiology unclear ?dilutional, will monitor Qualifiers: Anemia type: unspecified type Qualified Code(s): D64.9 - Anemia, unspecified History of Present Illness - Reason for Consult Consult date: 01/08/18 Acute Kidney Injury, Chronic Kidney Disease Requesting physician: Willy Moses - History of Present Illness 72 y o female with PMH of DM, HTN, HLN, CAD and CKD stage 4 s/p TENISHA now HD dependent with bilateral ureteral stents in place from previous hospital stay admitted after being discharged 12/30/17(had severe depression with catatonia) now with altered mental status. Pt apparently missed a week on HD first due to permcath problems on tuesday and then for nausea/vomiting on and presented to the ED on tuesday instead of the HD unit. She was noted hypotensive down to 80s systolic. She was diagnosed with UTI with vanco and micafugin started and given NS bolus in the ED. Renal consulted for HD manageme nt. Pt seen and examined, very poor historian. Most of the information obtained from records Past Med Surg Social Fam HX - Past Medical History Medical history: cardiomyopathy, CHF, coronary artery disease, CVA, diabetes, GERD, hyperlipidemia, hypertension, kidney stones, myocardial infarction, peripheral artery disease, TIA, other Additional medical history: renal insufficiency, blood thinner Psychiatric history: depression - Past Surgical History Surgical History: appendectomy, breast surgery, carotid endarterectomy, cholecystectomy, coronary bypass (CABG), hysterectomy, pacemaker/AICD, LE vascular intervention Additional surgical history: cyst removed in left breast, left chest pacer/AICD - Social History Smoking Status: Former smoker Smokeless Tobacco Status: No Alcohol use: none Drug use: none - Family History Father Living Status: Hx Family Cardiac Disorders: Yes Hx Family Respiratory Disorders: Yes Hx Family Neurologic Disorders: Yes Mother Living Status: Hx Family Cardiac Disorders: Yes (HTN) Hx Family Endocrine Disorder: Yes (diabetes) Hx Family Neurologic Disorders: Yes (2 strokes) Medications and Allergies RX: Aspirin Enteric Coated [Aspirin EC] 81 mg PO DAILY 08/20/15 [History] RX: Insulin Glargine,Hum.rec.anlog [Toujeo Solostar] 45 units SQ HS 06/10/16 [History] RX: Multivit-Minerals/Folic/Ginkgo [One Daily For Women 50+ Adv Tb] 1 tab PO QAM 06/10/16 [History] RX: Insulin ASPART [Novolog Flexpen] 25 unit SQ TIDWM 10/03/16 [History] RX: Clopidogrel [Plavix] 75 mg PO DAILY 11/03/17 [History] RX: Ascorbic Acid [Vitamin C] 500 mg PO BID 11/17/17 [History] RX: Dextromethorphan HBr/Quinidine [Nuedexta 20-10 mg Capsule] 1 each PO DAILY 30 Days #30 capsule 12/08/17 [Rx] RX: Escitalopram [Lexapro] 10 mg PO DAILY #20 tablet 12/30/17 [Rx] RX: Memantine [Namenda] 10 mg PO BID #10 tablet 12/30/17 [Rx] RX: Ergocalciferol (VITAMIN D2) [Vitamin D2] 50,000 unit PO TU 01/07/18 [His tory] RX: Ferrous Sulfate 325 mg PO DAILY 01/07/18 [History] RX: Metoprolol Succinate 75 mg PO HS 01/07/18 [History] RX: Rosuvastatin Calcium [Crestor] 10 mg PO DAILY 01/07/18 [History] RX: Ertapenem [INVanz] 500 mg IVPB DAILY #7 vial 01/13/18 [Rx] RX: Omeprazole [PriLOSEC] 40 mg PO DAILY@0630 #30 capsule. 01/13/18 [Rx] Allergy/AdvReac Type Severity Reaction Status Date / Time venom-honey bee Allergy Severe Swelling Verified 01/07/18 13:55 [bee venom (honey bee)] of Lip/Tongue/Throat Cortisone Allergy Mild Hives Verified 01/07/18 13:55 Penicillins Allergy See Verified 01/07/18 13:55 Comments NSAIDS (Non-Steroidal AdvReac Mild UPSET Verified 01/07/18 13:55 Anti-Inflamma STOMACH cefazolin [From Anc] AdvReac Hives Verified 01/07/18 13:55 Edeieir-Jik-Opu Reductase AdvReac Muscle Pain Verified 01/07/18 13:55 Inhibitor [Statins] GRAPE FLAVOR Allergy Mild Swelling Uncoded 01/07/18 13:55 of the Eye Review of Systems ROS unobtainable: due to mental status Exam - Vital Signs Vital signs: Initial Vital Signs Temp Pulse Resp BP Pulse Ox 98.4 F 67 20 74/48 96 01/07/18 11:48 01/07/18 11:48 01/07/18 11:48 01/07/18 11:48 01/07/18 11:48 Vital Signs - Last 8 Hours Temp Pulse Resp BP Pulse Ox 01/08/18 10:00 96.0 F L 65 13 111/63 95 01/08/18 09:00 96.6 F L 63 14 98/53 100 01/08/18 08:20 98 01/08/18 08:00 67 14 94/52 98 01/08/18 07:00 69 12 92/55 98 01/08/18 06:00 61 18 98/48 100 01/08/18 05:00 63 18 95/48 99 01/08/18 04:03 97.9 F 01/08/18 04:00 63 18 80/30 97 01/08/18 03:02 66 Intake and Output 01/07/18 01/08/18 01/08/18 23:59 07:59 15:59 Intake Total 1550 / 1700 Output Total 575 / 575 50 / 50 0 / 0 Balance 975 / 1125 -50 / -50 0 / 0 Intake: IV Fluids 1550 / 1550 0.9 % Sodium Chloride 500 ML @ 500 / 500 250 mls/hr IVC .Q2H [facility] Rx#: [id number] 0.9 % Sodium Chloride 500 ML @ 500 / 500 999 mls/hr IVC .Q31M ONE Rx#: [id number] Flexbumin 25 gm In 100 ml @ 60 100 / 100 mls/hr IVC .Q1H40M [facility] Rx#: [id number] Mycamine 100 MG In 0.9 % Sodium 100 / 100 Chloride (Mini-Bag +) 100 ML @ 100 mls/hr IVPB Q24H [facility] Rx#: [id number] Vitamin B-1 500 MG In 0.9 % 100 / 100 Sodium Chloride 100 ML @ 100 mls/hr IVPB BID [facility] Rx#: [id number] Vancocin 1,250 MG In 0.9 % 250 / 250 Sodium Chloride 250 ML @ 166. 667 mls/hr IVPB ONCE ONE Rx#: [id number] Oral 0 / 0 Output: Rectal Tube 0 / 0 0 / 0 Catheter 575 / 575 50 / 50 0 / 0 Other: Meal NPO Stool Size Large Stool Consistency loose liquid Weight 91.8 kg Blood Glucose* 141 Patient Weight 01/08/18 23:59 Weight 91.8 kg - General Appearance General appearance: chronically ill, fatigue EENT: ATNC, mucous membranes dry Neck: no JVD, supple Additional Comments: good areation ant bilat Cardiology: no edema, normal S1, normal S2 - Dialysis Access Dialysis Vascular Access: Venous Catheter (permcath) Gastrointestinal: no tenderness, no guarding Integumentary: warm and dry Neurologic: disoriented Musculoskeletal: no deformities Additional Comments: flat affect Results - Lab Results 01/13/18 04:06 01/13/18 04:06 Most recent lab results ABG pH 7.41 pH Units (7.32-7.45) 01/07/18 12:23 ABG pCO2 32 mmHg (35-45) L 01/07/18 12:23 ABG pO2 81 mmHg (85-104) L 01/07/18 12:23 ABG HCO3 21 mEq/L (21-27) 01/07/18 12:23 ABG O2 Saturation 96 % (95-98) 01/07/18 12:23 Calcium 8.4 mg/dL (8.6-10.3) L 01/08/18 03:56 Magnesium 2.2 mg/dL (1.6-2.6) 01/08/18 03:56 Consult Discharge Plan - Plan Instructions: Sepsis (DC) Referrals: Pee Reina MD [Partnered Physician] - (Please call and schedule a hospital follow up in 4 weeks if you have not heard from the office with an appointment date and time by Tuesday01/17/18) Wale Lam DO [Primary Care Provider] - (Patient is edd FLOR) Prescriptions: RX: Ertapenem [INVanz] 500 mg IVPB DAILY #7 vial RX: Omeprazole [PriLOSEC] 40 mg PO DAILY@0630 #30 capsule.
--- NOTE | 2018-01-08 14:09 | Internal Med Progress Note ---
Hospitalist Progress Note - Encounter Date of Encounter: 01/08/18 Time of Encounter: 13:00 - Subjective Interval History: Post staff patient has multiple loose bowel movement overnight rectal tube ordered by ICU staff, no acute issues overnight - Exam Vitals: Temp Pulse Resp BP Pulse Ox 96.6 F L 66 18 104/63 94 01/08/18 11:30 01/08/18 12:00 01/08/18 12:00 01/08/18 12:00 01/08/18 12:00 Exam: As above - Assessment and Plan (1) Volume depletion Current Visit: Yes Status: Acute (2) Hypotension Current Visit: Yes Status: Acute (3) Metabolic encephalopathy Current Visit: Yes Status: Acute (4) Urinary tract infection Current Visit: Yes Status: Acute Code(s): N39.0 - Urinary tract infection, site not specified SNOMED Code(s): 56153058 (5) ESRD (end stage renal disease) on dialysis Current Visit: Yes Status: Chronic (6) Anemia Current Visit: No Status: Acute - Summary of Assessment and Plan Summary of Assessment and Plan: Mental status the improving compared to yesterday, patient now is alert to year and location. Discussed with nursing staff at bedside swallow eval, renal diet , will check stool for occult blood as well as for C. difficile, was very high risk of C. difficile as well as with her diarrhea and abdominal discomfort we will let cover with Flagyl for now until we have final culture. Discuss with staff about supplement 4 times daily. Physical therapy and occupational therapy consult. Patient temperature was down to 95, better with warming blanket close monitoring overnight, we will check TSH and cortisol level, continue current antibiotic. In view of her anemia hypotension as well as history of CHF, will order 1 unit of blood possible dialysis next a.m. - Time Spent with Patient Total time spent is greater than 50% in coordination of care (as documented) at patient's floor/unit and/or counseling patient: 25 - 35 minutes Internal Medicine: Result - Labs CBC & Chem 7: 01/08/18 03:56 01/08/18 03:56 Labs: Short CBC 01/08/18 Range/Units 03:56 WBC 11.0 (4.3-11.1) K/mcL Hgb 7.4 L D (11.5-15.4) g/dL Hct 24.2 L (35.3-44.9) % Plt Count 312 (140-400) K/mcL Neutrophils # 9.3 H (1.6-8.9) K/mcL BMP 01/08/18 03:56 Sodium 140 Potassium 3.4 L Chloride 104 Carbon Dioxide 17 L BUN 73 H Creatinine 9.54 H Glucose 120 H Calcium 8.4 L - ABG Interpretation ABG results: ABG ABG pH 7.41 pH Units (7.32-7.45) 01/07/18 12:23 ABG pCO2 32 mmHg (35-45) L 01/07/18 12:23 ABG pO2 81 mmHg (85-104) L 01/07/18 12:23 ABG O2 Saturation 96 % (95-98) 01/07/18 12:23 PT/INR, D-dimer PT 12.8 Seconds (9.4-12.1) H 01/07/18 12:28 Consult Discharge Plan - Plan Referrals: Wale Lam DO [Primary Care Provider] - Exam - Vital Signs Vital signs: Initial Vital Signs Temp Pulse Resp BP Pulse Ox 98.4 F 67 20 74/48 96 01/07/18 11:48 01/07/18 11:48 01/07/18 11:48 01/07/18 11:48 01/07/18 11:48 Vital Signs - Last 8 Hours Temp Pulse Resp BP Pulse Ox 01/08/18 12:00 66 18 104/63 94 01/08/18 11:30 96.6 F L 01/08/18 11:00 64 16 107/63 96 01/08/18 10:00 96.0 F L 65 13 111/63 95 01/08/18 09:00 96.6 F L 63 14 98/53 100 01/08/18 08:20 98 01/08/18 08:00 67 14 94/52 98 01/08/18 07:00 69 12 92/55 98 Intake and Output 01/07/18 01/08/18 01/08/18 23:59 07:59 15:59 Intake Total 1550 / 1700 Output Total 575 / 575 50 / 50 70 / 70 Balance 975 / 1125 -50 / -50 -70 / -70 Intake: IV Fluids 1550 / 1550 0.9 % Sodium Chloride 500 ML @ 500 / 500 250 mls/hr IVC .Q2H [facility] Rx#: [id number] 0.9 % Sodium Chloride 500 ML @ 500 / 500 999 mls/hr IVC .Q31M [facility] Rx#: [id number] Flexbumin 25 gm In 100 ml @ 60 100 / 100 mls/hr IVC .Q1H40M [facility] Rx#: [id number] Mycamine 100 MG In 0.9 % Sodium 100 / 100 Chloride (Mini-Bag +) 100 ML @ 100 mls/hr IVPB Q24H [facility] Rx#: [id number] Vitamin B-1 500 MG In 0.9 % 100 / 100 Sodium Chloride 100 ML @ 100 mls/hr IVPB BID [facility] Rx#: [id number] Vancocin 1,250 MG In 0.9 % 250 / 250 Sodium Chloride 250 ML @ 166. 667 mls/hr IVPB ONCE [facility] Rx#: [id number] Oral 0 / 0 Output: Rectal Tube 0 / 0 0 / 0 Catheter 575 / 575 50 / 50 70 / 70 Other: Meal NPO Stool Size Large Stool Consistency loose liquid Weight 91.8 kg Blood Glucose* 141 148 Patient Weight 01/08/18 23:59 Weight 91.8 kg EENT: mucous membranes moist Neck: no JVD Respiratory: no kyphosis, no scoliosis Cardiology: no murmurs, no rub, no gallops, no edema, regular rate, regular rhythm, normal S1, normal S2 Gastrointestinal: normoactive bowel sounds, no guarding, no organomegaly, obese (Mild diffuse abdominal tenderness) Musculoskeletal: no cyanosis, no clubbing (2) Hypotension Qualifiers: Hypotension type: other hypotension type Qualified Code(s): I95.89 - Other hypotension (4) Urinary tract infection Qualifiers: Urinary tract infection type: site unspecified Hematuria presence: without hematuria Qualified Code(s): N39.0 - Urinary tract infection, site not specified (6) Anemia Qualifiers: Anemia type: unspecified type Qualified Code(s): D64.9 - Anemia, unspecified
[2018-01-08] MEDS: Lactobacillus 1 EACH CAP.SPRINK PO SCH (17:23)
[2018-01-08] MEDS: MetroNIDAZOLE 500 MG/100 ML 500 MG/100 ML BAG IVPB SCH (17:23)
[2018-01-08] MEDS ORDERED: 0.9 % Sodium Chloride 250 ML ONE (18:52)
[2018-01-08] MEDS: Micafungin 100 MG in 0.9 % Sodium Chloride Mini Bag 100 ML IVPB SCH (20:27)
[2018-01-09] MEDS: MetroNIDAZOLE 500 MG/100 ML 500 MG/100 ML BAG IVPB SCH ×2 (00:12→07:34)
[2018-01-09 03:46] LABS: Basophils % 0.2 %; Eosinophils # 0.3 K/mcL (0.0-0.6); Immature Granulocytes % 0.7 % (0-4); Lymphocytes # 0.7 K/mcL (0.6-4.6); Lymphocytes % 6.7 %; Mean Corpuscular Hemoglobin 27.4 pg (28.0-33.3); Mean Corpuscular Volume 88.4 fL (83.0-100.0); Mean Platelet Volume 9.6 fL (9.4-12.4); Monocytes # 0.8 K/mcL (0.0-1.3); Neutrophils # 8.8 K/mcL (1.6-8.9); Platelet Count 296 K/mcL (140-400); Red Blood Count 3.28 M/mcL (3.82-4.97); Red Cell Distribution Width 16.3 % (11.5-14.5); Segmented Neutrophils % 82.4 %
[2018-01-09 04:09] LABS: Calcium 8.6 mg/dL (8.6-10.3); Magnesium 2.3 mg/dL (1.6-2.6); Potassium 3.5 mEq/L (3.5-5.1)
[2018-01-09 04:23] LABS: Thyroid Stimulating Hormone 3.028 mcIU/mL (0.340-5.600)
[2018-01-09] MEDS: Thiamine (B-1) 500 MG in 0.9 % Sodium Chloride 100 ML IVPB SCH (07:34)
[2018-01-09] MEDS: Lactobacillus 1 EACH CAP.SPRINK PO SCH (07:35)
[2018-01-09] MEDS ORDERED: Aminoglycoside Consult 1 EACH MC ONE (07:59)
[2018-01-09] MEDS ORDERED: *HR* Heparin 10,000 UNIT/10 ML VIAL IV PRN (08:31)
[2018-01-09] MEDS ORDERED: 0.9 % Sodium Chloride 250 ML IVC PRN (08:31)
[2018-01-09] MEDS ORDERED: 0.9 % Sodium Chloride 1,000 ML PRIME SCH (08:45)
[2018-01-09] MEDS ORDERED: 0.9 % Sodium Chloride 1,000 ML ONE (10:08)
[2018-01-09] MEDS ORDERED: *HR* Alteplase (Cathflo) 2 MG VIAL IVP ONE ×2 (11:12→11:58)
--- NOTE | 2018-01-09 11:20 | Nephrology Progress Note ---
Date of Encounter: 01/09/18 Time of Encounter: 09:05 - Assessment and Plan (1) Acute kidney injury superimposed on chronic kidney disease Current Visit: No Status: Chronic Dialysis dependent TENISHA and missed several sessions of dialysis apparently. Her Psych hx may have contributed to her refusal for dialysis. Her significant other was preset, I recommend that talk about goals of care; if she does not really want dialysis, then she should choose that option, but in meantime, she may be uremic at this point, so I recommend HD today. Her VS are more hemodynamically stable today, so okay to proceed with HD. However, I was notified by the associate director of development that her Permacath is not working, so in hopes to salvage the line, I have ordered Cathflo 2mg in each port of the Permcath for 3hr. If this does not work, she will need a line exchange possibly. Peripheral edema noted: now Na diet, and fluid restriction is recommended. (2) Anemia Current Visit: No Status: Chronic Goal Hgb is 10-11 and she is below the goal. May need MEGHA and/or IV iron; will monitor. Qualifiers: Anemia type: unspecified type Qualified Code(s): D64.9 - Anemia, unspecified (3) Urinary tract infection Current Visit: Yes Status: Acute As per primary. Qualifiers: Urinary tract infection type: site unspecified Hematuria presence: without hematuria Qualified Code(s): N39.0 - Urinary tract infection, site not specified (4) Hyperphosphatemia Current Visit: Yes Status: Acute Goal serum Phos is 3.5 to 5.5 and it was noted to be elevated a few days ago. Recommend a renal diet. Phos binders may be needed if still elevated tomorrow. Will asses need to order follow up serum Phos in AM. (5) Nonverbal Current Visit: No Status: Chronic Psychiatric history. As per primary. Subjective Principal diagnosis: ESRD with missed dialysis Interval history: Pt was s/e and I reviewed the hand-off info from my colleague Dr. Kearney. The pt did not report any problems or affirm any when listed. She was nonverbal with me. Her spouse was present, and he said that her Permacath was not working on the one day she went to the dialysis unit prior to admission. Objective - Vital Signs Vital signs: Vital Signs Temp Pulse Resp BP Pulse Ox 01/09/18 10:00 69 20 103/55 96 01/09/18 09:11 97.6 F 01/09/18 09:00 70 12 103/56 94 01/09/18 08:00 65 20 107/57 96 01/09/18 07:47 71 01/09/18 07:00 65 18 94/50 91 01/09/18 06:00 66 16 106/54 96 01/09/18 05:26 97.3 F L 01/09/18 05:00 73 20 109/53 96 01/09/18 04:00 70 16 98/54 95 01/09/18 03:09 72 01/09/18 03:00 68 16 106/53 94 01/09/18 02:00 71 12 107/53 93 01/09/18 01:00 72 16 107/55 90 01/09/18 00:00 73 14 109/57 90 01/08/18 23:49 99.7 F H 01/08/18 23:07 73 01/08/18 23:00 80 18 113/63 90 01/08/18 22:30 99.7 F H 70 16 107/55 90 01/08/18 22:00 96 22 105/54 90 01/08/18 21:00 74 30 112/51 90 01/08/18 20:29 98.4 F 01/08/18 19:18 68 01/08/18 19:00 76 22 114/59 89 01/08/18 18:55 98.1 F 75 15 111/68 89 01/08/18 18:00 69 15 105/61 90 01/08/18 17:00 66 19 98/48 93 01/08/18 16:00 71 20 101/49 92 01/08/18 15:00 98.1 F 70 14 86/56 92 01/08/18 14:00 68 16 108/67 93 01/08/18 13:00 67 14 107/63 92 01/08/18 12:00 66 18 104/63 94 01/08/18 11:30 96.6 F L Intake and Output 01/08/18 01/09/18 01/09/18 23:59 07:59 15:59 Intake Total 525 / 525 200 / 200 200 / 200 Output Total 60 / 60 125 / 125 80 / 80 Balance 465 / 465 75 / 75 120 / 120 Intake: IV Fluids 200 / 200 200 / 200 200 / 200 Flagyl Premix 500 MG/100 ML 500 100 / 100 100 / 100 100 / 100 mg In 100 ml @ 100 mls/hr IVPB Q8HR [facility] Rx#:[id number] Vitamin B-1 500 MG In 0.9 % 100 / 100 100 / 100 100 / 100 Sodium Chloride 100 ML @ 100 mls/hr IVPB BID [facility] Rx#: [id number] Blood Product 325 / 325 Rbcs Leuko Poor As-1 Unit 325 / 325 [id number] Output: Catheter 60 / 60 125 / 125 80 / 80 Other: Meal NPO Weight 94.2 kg Blood Glucose* 100 - General Appearance Exam: General appearance: Present: obese, chronically ill, fatigue, frail EENT: Present: ATNC, PERRL, mucous membranes dry Neck: Present: supple Respiratory: Present: clear Cardiology: Present: edema (1+ pretibial pitting edema b/l), regular rate, regular rhythm, normal S1, normal S2 Dialysis Vascular Access: Venous Catheter Gastrointestinal: Present: normoactive bowel sounds, no guarding, obese Integumentary: Present: warm and dry Neurologic: Present: no focal deficit, no asterixis Musculoskeletal: Present: no cyanosis, no clubbing Psychiatric: Present: depressed - Lab 01/10/18 03:43 01/10/18 03:43 Most recent lab results ABG pH 7.41 pH Units (7.32-7.45) 01/07/18 12:23 ABG pCO2 32 mmHg (35-45) L 01/07/18 12:23 ABG pO2 81 mmHg (85-104) L 01/07/18 12:23 ABG HCO3 21 mEq/L (21-27) 01/07/18 12:23 ABG O2 Saturation 96 % (95-98) 01/07/18 12:23 Calcium 8.6 mg/dL (8.6-10.3) 01/09/18 03:31 Phosphorus 7.9 mg/dL (2.7-4.5) H 01/08/18 16:41 Magnesium 2.3 mg/dL (1.6-2.6) 01/09/18 03:31 Consult Discharge Plan - Plan Referrals: Wale Lam DO [Primary Care Provider] -
[2018-01-09] MEDS ORDERED: *HR* Alteplase (Cathflo) 2 MG VIAL IVP SCH (12:00)
[2018-01-09] MEDS ORDERED: *HR* Heparin 5,000 UNIT/ML VIAL SQ SCH (18:00)
--- NOTE | 2018-01-09 21:58 | Internal Med Progress Note ---
Hospitalist Progress Note - Encounter Date of Encounter: 01/09/18 Time of Encounter: 10:00 - Subjective Interval History: Pt's affect is flat. at bedside states she has not had good appetite and has not been eating. reports that she has hx of depresssion and she is on medication for this. Pt denies fever, chills, N/V, or diarrhea. She denies CP or SOB. Pt was in the middle of HD when I saw her. - Exam Vitals: Temp Pulse Resp BP Pulse Ox 97.1 F L 81 22 109/59 99 01/09/18 20:21 01/09/18 21:00 01/09/18 21:00 01/09/18 21:00 01/09/18 21:00 Exam: General appearance: Present: A&O X 0 Exam: As above - Head Head exam: Present: atraumatic, normocephalic - Neck Neck exam general surgery: Present: supple, trachea midline. Absent: lymphadenopathy - Respiratory Respiratory exam: Present: decreased breath sounds. Absent: accessory muscle use, rales, rhonchi, wheezes - Cardiovascular Cardiovascular exam: Present: RRR, +S1, +S2, systolic murmur. Absent: diastolic murmur, gallop, rubs - GI/Abdominal GI/Abdominal exam: Present: normal bowel sounds, soft, tenderness (Mild diffuse abdominal tenderness), no peritoneal signs - Extremities Exam Extremities exam: Present: warm. Absent: calf tenderness, cyanotic, pedal edema (Right heel ulcer stage II dry no signs of infection) - Neurological Exam Neurological exam: Absent: facial droop (Patient is alert oriented x 1-2 , minimum movement bilateral upper extremities, minimal movement right lower extremities, no movement left lower extremities, based on ECF staff this is her baseline) - Skin Skin exam: Present: dry (Left heel ulcer stage II dry) - Assessment and Plan (1) Acute cystitis with positive culture Current Visit: Yes Status: Acute Assessment and Plan: Due to multi drug resistant Proteus mirabilis. Proteus mirabbilis is sensitive to Ertapenem, imepenem, gent, tobramycin, and zosyn. Will DC vanc and place on Ertapenem for now. (2) Metabolic encephalopathy Current Visit: Yes Status: Acute Assessment and Plan: Likely due to acute infection and slowly improving. Pt has a flat affect at baseline. (3) ESRD (end stage renal disease) on dialysis Current Visit: Yes Status: Chronic Assessment and Plan: Nephrology on board and had HD 01/09/2018. Awaiting further recommendations from nephrology (4) Anemia Current Visit: No Status: Chronic Assessment and Plan: Hgb 10.2 and stable. s/p 1 units of blood. Will contniue to monitor prn. (5) Hypotension Current Visit: Yes Status: Acute Assessment and Plan: Improved. Likely due to dehydration from infection. Lisinopril ad Metoprolol on hold for now. (6) Volume depletion Current Visit: Yes Status: Acute Assessment and Plan: improved. Due to acute cystitis resulting in dehydration. DVT Prophylaxis: Heparin - Summary of Assessment and Plan Summary of Assessment and Plan: Ms. Bentley is a 72 year old female with past medical history of end-stage renal disease, history of CVA. Patient was transferred from [facility] for evaluation for altered mental status, hypotension and hypoxemia. Patient is very confused and poor historian, history obtained from medical record and daughter's report to emergency room staff. Based on daughter report , she stated her mom missed 3 dialysis last week secondary to her nausea vomiting, diarrhea, last time she was unable to be dialysis due to failure to access dialysis catheter . Patient today was so lethargic so sleepy, on check her vital sign patient was hypotensive as well as her situation was down to 89 . Patient was brought to the emergency room urinalysis was positive for urinary tract infection. Patient was given bolus fluid 500. Region continued to be lethargic alert oriented 0. Patient respond to command,based on ECF , patient has expressive aphasia , she is total assist , decrease oral intake , Based on ECF staff , patient has been in the hospital more than [facility] , recently had diarrhea. - Time Spent with Patient Total time spent is greater than 50% in coordination of care (as documented) at patient's floor/unit and/or counseling patient: less than 15 minutes Plan of Care Discussed with: patient Internal Medicine: Result - Labs CBC & Chem 7: 01/10/18 03:43 01/10/18 03:43 Labs: Short CBC 01/09/18 Range/Units 03:31 WBC 10.7 (4.3-11.1) K/mcL Hgb 9.0 L D (11.5-15.4) g/dL Hct 29.0 L (35.3-44.9) % Plt Count 296 (140-400) K/mcL Neutrophils # 8.8 (1.6-8.9) K/mcL BMP 01/09/18 03:31 Sodium 141 Potassium 3.5 Chloride 106 Carbon Dioxide 16 L BUN 77 H Creatinine 9.88 H Glucose 72 Calcium 8.6 - ABG Interpretation ABG results: ABG ABG pH 7.41 pH Units (7.32-7.45) 01/07/18 12:23 ABG pCO2 32 mmHg (35-45) L 01/07/18 12:23 ABG pO2 81 mmHg (85-104) L 01/07/18 12:23 ABG O2 Saturation 96 % (95-98) 01/07/18 12:23 PT/INR, D-dimer PT 12.8 Seconds (9.4-12.1) H 01/07/18 12:28 Consult Discharge Plan - Plan Referrals: Wale Lam DO [Primary Care Provider] - (4) Anemia Qualifiers: Anemia type: unspecified type Qualified Code(s): D64.9 - Anemia, unspecified (5) Hypotension Qualifiers: Hypotension type: other hypotension type Qualified Code(s): I95.89 - Other hypotension
[2018-01-10 03:52] LABS: Basophils % 0.2 %; Eosinophils # 0.2 K/mcL (0.0-0.6); Eosinophils % 1.9 %; Hematocrit 32.7 % (35.3-44.9); Hemoglobin 10.2 g/dL (11.5-15.4); Immature Granulocytes % 0.9 % (0-4); Lymphocytes # 0.7 K/mcL (0.6-4.6); Lymphocytes % 6.6 %; Mean Corpuscular HGB Conc 31.2 g/dL (31.6-35.5); Mean Corpuscular Hemoglobin 27.2 pg (28.0-33.3); Mean Corpuscular Volume 87.2 fL (83.0-100.0); Monocytes # 0.7 K/mcL (0.0-1.3); Monocytes % 6.7 %; Neutrophils # 8.8 K/mcL (1.6-8.9); Platelet Count 319 K/mcL (140-400); Red Blood Count 3.75 M/mcL (3.82-4.97); Red Cell Distribution Width 16.1 % (11.5-14.5); Segmented Neutrophils % 83.7 %
[2018-01-10 04:11] LABS: Calcium 8.7 mg/dL (8.6-10.3); Magnesium 1.9 mg/dL (1.6-2.6); Potassium 3.4 mEq/L (3.5-5.1)
[2018-01-10] MEDS: *HR* Heparin 5,000 UNIT/ML VIAL SQ SCH ×2 (05:47→17:13)
--- NOTE | 2018-01-10 10:46 | Electrocardiograph Report ---
[place] [id number] Test Date: 2018-01-07 Pat Name: Eleni Bentley Department: EXAM12 Room: [facility] Gender: F Manager Medicare: : 1945 Requested By: Parish Santillan Order Number: [id number] Reading MD: Oneal Downs Measurements Intervals [place] Rate: 73 P: 0 [place]: 210 QRS: -75 QRSD: 154 T: 91 QT: 474 QTc: 523 Interpretive Statements Paced rhythm No further anlaysis Electronically Signed On 01-10-2018 10:44:58 EDT by Oneal Downs
[2018-01-10 10:47] LABS: Adenovirus F 40/41 PCR Not detected (Not detect); Astrovirus PCR Not detected (Not detect); C.difficile Toxin A/B by PCR Not detected (Not detect); Campylobacter by PCR Not detected (Not detect); Cryptosporidium by PCR Not detected (Not detect); Cyclospora cayetanensis PCR Not detected (Not detect); E. coli O157 by PCR Not detected (Not detect); Entamoeba histolytica PCR Not detected (Not detect); Enteroaggregative E.coli(EAEC) Not detected (Not detect); Enteropathogenic E.coli(EPEC) Not detected (Not detect); Enterotoxigenic E.coli (ETEC) Not detected (Not detect); Giardia lamblia PCR Not detected (Not detect); Norovirus GI/GII PCR Not detected (Not detect); Plesiomonas shigelloides PCR Not detected (Not detect); Rotavirus A PCR Not detected (Not detect); Salmonella PCR Not detected (Not detect); Sapovirus PCR Not detected (Not detect); Shig/EnteroinvasiveE coli EIEC Not detected (Not detect); Shigalike tox-prod E coli STEC Not detected (Not detect); Vibrio PCR Not detected (Not detect); Vibrio cholerae PCR Not detected (Not detect); Yersinia enterocolitica PCR Not detected (Not detect)
[2018-01-10] MEDS ORDERED: Aspirin Enteric Coated 81 MG Tablet PO SCH (11:00)
--- NOTE | 2018-01-10 11:01 | Nephrology Progress Note ---
Date of Encounter: 01/10/18 Time of Encounter: 09:10 - Assessment and Plan (1) Acute kidney injury superimposed on chronic kidney disease Current Visit: No Status: Chronic Will continue thrice weekly dialysis, but since she received it yesterday ( Tuesday), I will recommend she keep the every other day approach for now. After discharge, she may resume the TTS outpatient dialysis schedule Cathflo did help improve her Permacath. Peripheral edema noted: low Na diet, and fluid restriction is recommended. (2) Anemia Current Visit: No Status: Chronic Goal Hgb is 10-11 and she is below the goal. May need MEGHA and/or IV iron; will monitor. Qualifiers: Anemia type: unspecified type Qualified Code(s): D64.9 - Anemia, unspecified (3) Urinary tract infection Current Visit: Yes Status: Acute As per primary. Qualifiers: Urinary tract infection type: site unspecified Hematuria presence: without hematuria Qualified Code(s): N39.0 - Urinary tract infection, site not specified (4) Hyperphosphatemia Current Visit: Yes Status: Acute Goal serum Phos is 3.5 to 5.5 and it was noted to be elevated a few days ago. Recommend a renal diet. Will monitor. (5) Nonverbal Current Visit: No Status: Chronic Psychiatric history. As per primary. Subjective Principal diagnosis: ESRD Interval history: The pt was s/e and she did not affirm N/V/D but largely was noncommunicative. Her spouse was present at the bedside when I saw her earlier today in the ICU. Objective - Vital Signs Vital signs: Vital Signs Temp Pulse Resp BP Pulse Ox 01/10/18 09:02 80 14 115/59 98 01/10/18 08:00 80 01/10/18 07:00 98.1 F 01/10/18 06:00 77 19 110/58 96 01/10/18 05:00 82 15 100/58 97 01/10/18 04:08 98.7 F 01/10/18 04:00 79 25 115/60 97 01/10/18 03:54 72 01/10/18 03:00 78 22 92/53 95 01/10/18 02:00 82 25 95/44 96 01/10/18 01:00 79 20 95/53 96 01/10/18 00:13 98.1 F 01/10/18 00:00 81 19 104/55 95 01/09/18 23:35 79 01/09/18 23:00 79 24 94/57 96 01/09/18 22:00 78 25 112/58 97 01/09/18 21:00 81 22 109/59 99 01/09/18 20:21 97.1 F L 18 112/67 01/09/18 20:15 80 01/09/18 20:00 80 21 108/65 98 01/09/18 19:45 99/63 01/09/18 19:30 94/61 01/09/18 19:15 100/61 01/09/18 19:00 76 18 96/67 99 01/09/18 18:45 98/69 01/09/18 18:30 97.1 F L 98/62 01/09/18 18:15 105/64 01/09/18 18:00 79 18 110/70 97 01/09/18 17:45 96/73 01/09/18 17:30 95/60 01/09/18 17:15 99/56 01/09/18 17:00 97.6 F 72 18 109/57 96 01/09/18 16:00 72 15 106/59 96 01/09/18 15:30 97.6 F 01/09/18 15:00 70 17 103/67 97 01/09/18 14:00 70 17 108/59 97 01/09/18 13:50 97.6 F 78 01/09/18 13:00 70 17 98/58 98 01/09/18 12:00 70 18 97/51 98 Intake and Output 01/09/18 01/10/18 01/10/18 23:59 07:59 15:59 Intake Total 700 / 700 200 / 200 Output Total 1600 / 1600 550 / 550 Balance -900 / -900 -550 / -550 200 / 200 Intake: IV Fluids 100 / 100 INVanz 500 MG In 0.9 % Sodium 100 / 100 Chloride 100 ML @ 100 mls/hr IVPB Q24H [facility] Rx#:[id number] Oral 200 / 200 Intake, Rinseback and Flushes 600 / 600 Output: Total Dialysis (HD) Output 1600 / 1600 Rectal Tube 200 / 200 Catheter 350 / 350 Other: Meal Breakfast Percent of Meal Consumed 20% Weight 91.96 kg Blood Glucose* 76 Hemodialysis Net Fluid Removed 1000 (mL) Patient Weight 01/10/18 23:59 Weight 91.96 kg - General Appearance General appearance: Present: obese, chronically ill, fatigue, frail EENT: Present: ATNC, PERRL, mucous membranes dry Neck: Present: supple Respiratory: Present: clear Cardiology: Present: edema (1+ pretibial pitting edema b/l), regular rate, regular rhythm, normal S1, normal S2 Dialysis Vascular Access: Venous Catheter Gastrointestinal: Present: normoactive bowel sounds, no guarding, obese Integumentary: Present: warm and dry Neurologic: Present: no focal deficit, no asterixis Musculoskeletal: Present: no cyanosis, no clubbing Psychiatric: Present: depressed, cooperative - Lab 01/10/18 03:43 01/10/18 03:43 Most recent lab results ABG pH 7.41 pH Units (7.32-7.45) 01/07/18 12:23 ABG pCO2 32 mmHg (35-45) L 01/07/18 12:23 ABG pO2 81 mmHg (85-104) L 01/07/18 12:23 ABG HCO3 21 mEq/L (21-27) 01/07/18 12:23 ABG O2 Saturation 96 % (95-98) 01/07/18 12:23 Calcium 8.7 mg/dL (8.6-10.3) 01/10/18 03:43 Phosphorus 7.9 mg/dL (2.7-4.5) H 01/08/18 16:41 Magnesium 1.9 mg/dL (1.6-2.6) 01/10/18 03:43 Consult Discharge Plan - Plan Referrals: Wale Lam DO [Primary Care Provider] -
[2018-01-10] MEDS: Nystatin SUSP 5 ML UD.LIQ PO SCH ×3 (12:26→20:51)
--- NOTE | 2018-01-10 15:05 | Palliative - Consult Note ---
Date of Encounter: 01/10/18 Time of Encounter: 14:00 - Assessment and Plan (1) Chronic kidney disease (CKD) Current Visit: No Status: Chronic Assessment and plan: Nephrology consulted; follow recommendations. Qualifiers: Chronic kidney disease stage: stage 4 (severe) Qualified Code(s): N18.4 - Chronic kidney disease, stage 4 (severe) (2) Chronic systolic heart failure Current Visit: No Status: Chronic (3) ESRD (end stage renal disease) on dialysis Current Visit: Yes Status: Chronic Assessment and plan: Patient of Dr. Kearney. Has missed 2 appointments in the last week. Patient's reports that patient has not been refusing dialysis. Patient does not really want to participate in discussion. (4) Depressive disorder, not elsewhere classified Current Visit: No Status: Acute Assessment and plan: Lexapro resumed today. Patient's reports chronic depression. (5) Goals of care, counseling/discussion Current Visit: Yes Status: Acute Assessment and plan: Attempted to have goals of care discussion with patient and her . Patient would not participate without her coercing her. Patient reported she does not want to stop having dialysis. Educated that patient meets hospice criteria should she decide she no longer desires dialysis; patient's verbalized understanding. Discussed discharge planning. Patient desires to return home. Patient's informs song writer that until she can walk 10 feet with a walker, he us unable to care for her at home. Discussed potential rehab companies; patient verblized that she did not want to go to [facility], [facility]. Discussed CODE STATUS. Patient desires to be a FULL CODE at this time; verbalized understanding of risks related to CPR and intubation. Palliative-CN HPI - Data of Consult Patient: new to practice Consult date: 01/10/18 Requesting Physician: Do Lockett MD Primary Care Provider: Wale Lam, DO - Consult Narrative Palliative Care/Comfort Measures: Palliative care Reason for consult: Goals of care; ESRD History of present illness: Ms. Bentley is a 72 year old female Arrived to [facility] on 01/07/18 for drowsiness , low oxygen, AMS, and missed dialysis times 1 week. PMH: Cardiomyopathy, CHF, GERD, Hyperlipidemia, kidney stones, ND, PAD, TIA, HTN, DM, CAD, CVA, CKD on HD (TTS). Patient admitted and medically managed for: ESRD, Metabolic Encephalopathy, UTI, Sepsis, and Hypotension. Chest X-ray showing: Mild pulmonary edema and Nonspecific retrocardiac opacity likely represents atelectasis with pneumonia not excluded. Electrocardiograph showing: Paced rhythm. CT Head/Brain without contrast showing: Sequela of chronic small vessel ischemic disease, Improving aeration of the sphenoid sinuses, and Obstruction of the external auditory canals with bilateral cerumen plugs. Patient has been at [facility] for rehab. Four days prior to admission, dialysis appointment unable to be kept due to clogged dialysis port and no way to open; two days prior to admission missed dialysis due to illness; day of admission patient as brought to dialysis center and immediately transferred to [facility]. Upon arrival to [facility] found with AMS. CT of abdomen/pelvis without contrast, showing: Patchy airspace disease seen at the lung bases bilaterally left greater than right could represent pneumonia; Status post cholecystectomy; Double-J stents in place bilaterally with mild bilateral hydronephrosis; The appendix is not definitely visualized but no secondary signs of appendicitis; and Colonic diverticulosis without evidence for diverticulitis. Nephrology consulted; recommend dialysis every other day. Per Nephrology, dialysis permacath is not working; ordered Cathflow, possibly need line exchange; fluid restriction. Patient having a poor appetite and not eating; hx of depression and Lexapro has been restarted. Palliative care consulted for Goals of care. Patient lying in bed with at bedside upon arrival for assessment. Dr. Kemp joined this song writer for assessment. Patient is alert to person and place; however, few words are spoken by patient. Patients provides much instigation for patient to speak. Patient has been residing at [facility] for rehab; however, has required frequent return trips to hospital. Patient denies pain, nausea, vomiting, shortness of breath, and anxiety. Patient has flat affect. Patient just settled in room from transfer out of ICU. With frequent prompting patient would answer some questions. CC: Do Lockett MD - Time Spent with Patient Time: Total time spent is greater than 50% in coordination of care (as documented) at patient's floor/unit and/or counseling patient: 25 - 35 minutes Past Med Surg Social Fam HX - Past Medical History Medical history: cardiomyopathy, CHF, coronary artery disease, CVA, diabetes, GERD, hyperlipidemia, hypertension, kidney stones, myocardial infarction, peripheral artery disease, renal disease, TIA Additional medical history: renal insufficiency, blood thinner Psychiatric history: no psych history - Past Surgical History Surgical History: appendectomy, breast surgery, carotid endarterectomy, cholecystectomy, coronary bypass (CABG), hysterectomy, pacemaker/AICD, LE vascular intervention Additional surgical history: cyst removed in left breast, left chest pacer/AICD - Social History Smoking Status: Former smoker Smokeless Tobacco Status: No Alcohol use: none Drug use: none - Family History Mother Living Status: Hx Family Cardiac Disorders: Yes (HTN) Hx Family Endocrine Disorder: Yes (diabetes) Hx Family Neurologic Disorders: Yes (2 strokes) Father Living Status: Hx Family Cardiac Disorders: Yes Hx Family Respiratory Disorders: Yes Hx Family Neurologic Disorders: Yes Medications and Allergies Aspirin Enteric Coated [Aspirin EC] 81 mg PO DAILY 08/20/15 [History] Insulin Glargine,Hum.rec.anlog [Toujeo Solostar] 45 units SQ HS 06/10/16 [ History] Multivit-Minerals/Folic/Ginkgo [One Daily For Women 50+ Adv Tb] 1 tab PO QAM 12/19 [History] Furosemide [Lasix] 40 mg PO QAM 10/03/16 [History] Insulin ASPART [Novolog Flexpen] 25 unit SQ TIDWM 10/03/16 [History] Clopidogrel [Plavix] 75 mg PO DAILY 11/03/17 [History] Oxybutynin Chloride [Ditropan Xl] 10 mg PO DAILY 11/03/17 [History] Ascorbic Acid [Vitamin C] 500 mg PO BID 11/17/17 [History] Dextromethorphan HBr/Quinidine [Nuedexta 20-10 mg Capsule] 1 each PO DAILY 30 Days #30 capsule 12/08/17 [Rx] Escitalopram [Lexapro] 10 mg PO DAILY #20 tablet 12/30/17 [Rx] Lisinopril [Zestril] 2.5 mg PO DAILY #10 tablet 12/30/17 [Rx] Memantine [Namenda] 10 mg PO BID #10 tablet 12/30/17 [Rx] Amlodipine Besylate 10 mg PO QAM 01/07/18 [History] Ergocalciferol (VITAMIN D2) [Vitamin D2] 50,000 unit PO TU 01/07/18 [History] Ferrous Sulfate 325 mg PO DAILY 01/07/18 [History] LORazepam [Ativan] 1 mg PO HS 01/07/18 [History] Metoprolol Succinate 50 mg PO HS 01/07/18 [History] Metoprolol XL (24 HR) Succ [Toprol Xl] 25 mg PO DAILY 01/07/18 [History] Rosuvastatin Calcium [Crestor] 10 mg PO DAILY 01/07/18 [History] 3 Allergy/AdvReac Type Severity Reaction Status Date / Time venom-honey bee Allergy Severe Swelling Verified 01/07/18 13:55 [bee venom (honey bee)] of Lip/Tongue/Throat Cortisone Allergy Mild Hives Verified 01/07/18 13:55 Penicillins Allergy See Verified 01/07/18 13:55 Comments NSAIDS (Non-Steroidal AdvReac Mild UPSET Verified 01/07/18 13:55 Anti-Inflamma STOMACH cefazolin [From Ancef] AdvReac Hives Verified 01/07/18 13:55 Fvfnjsi-Zqs-Xeb Reductase AdvReac Muscle Pain Verified 01/07/18 13:55 Inhibitor [Statins] GRAPE FLAVOR Allergy Mild Swelling Uncoded 01/07/18 13:55 of the Eye ROS unobtainable: due to mental status (Refused to answer many questions. helped provide answers.) - Constitutional Constitutional ROS PAL: decreased appetite, weight loss - Cardiovascular Cardiovascular ROS: leg edema, pedal edema, no chest pain - Respiratory Respiratory: cough - Neurological Neurological ROS: behavioral changes - Psychiatric Psychiatric general PM: depression Palliative Care-Exam - Constitutional Vitals: Temp Pulse Resp BP Pulse Ox 99.4 F 88 18 103/64 93 01/10/18 13:25 01/10/18 13:25 01/10/18 13:25 01/10/18 13:25 01/10/18 13:25 General appearance: Present: mild distress (Patient visibly upset regarding having goals of care discussion; however, kept flat affect.) - Head Head Exam: Present: atraumatic, normal inspection - Expanded Head Exam Head exam expanded IM: Absent: raccoon eyes - Eye Eye exam: Present: normal appearance, conjuntiva pink. Absent: periorbital swelling, periorbital tenderness - ENT ENT exam: Present: mucous membranes dry - Expanded ENT Exam Mouth Exam: Absent: drooling - Neck Neck exam: Present: full ROM, normal inspection - Respiratory Respiratory exam: Present: wheezes. Absent: accessory muscle use, respiratory distress - Cardiovascular Cardiovascular exam: Present: +S1, +S2 - Expanded Cardiovascular Exam Peripheral pulses: 2+: Radial (L), Radial (R), Posterior Tibialis (L), Posterior Tibialis (R), Dorsalis Pedis (L) PM, Dorsalis Pedis (R) PM - GI/Abdominal Exam GI/Abdominal exam: Present: normal bowel sounds, soft. Absent: tenderness - Rectal Rectal exam: Present: deferred - Extremities Exam Extremities exam: Present: pedal edema (peripheral edema to BLE and BUE.). Absent: calf tenderness - Neurological Exam Neurological exam: Present: alert. Absent: oriented X3, no focal deficits - Expanded Neurological Exam Neurological exam expanded: Present: inattentive (focuses away from conversation.) Coma Scale Eye Opening: To Voice Coma Scale Motor Response: Obeys Commands Coma Scale Verbal Response: Confused Coma Scale Total: 13 - Psychiatric Psychiatric exam: Present: flat affect - Skin Skin exam: Present: dry, warm (wounds to bilateral toes.). Absent: intact Internal Medicine - CN: Reslt - Labs CBC & Chem 7: 01/10/18 03:43 01/10/18 03:43 Labs: Short CBC 01/10/18 Range/Units 03:43 WBC 10.5 (4.3-11.1) K/mcL Hgb 10.2 L (11.5-15.4) g/dL Hct 32.7 L (35.3-44.9) % Plt Count 319 (140-400) K/mcL Neutrophils # 8.8 (1.6-8.9) K/mcL BMP 01/10/18 03:43 Sodium 139 Potassium 3.4 L Chloride 99 Carbon Dioxide 23 BUN 36 H Creatinine 5.49 H Glucose 72 Calcium 8.7 - ABG Interpretation ABG results: ABG ABG pH 7.41 pH Units (7.32-7.45) 01/07/18 12:23 ABG pCO2 32 mmHg (35-45) L 01/07/18 12:23 ABG pO2 81 mmHg (85-104) L 01/07/18 12:23 ABG O2 Saturation 96 % (95-98) 01/07/18 12:23 PT/INR, D-dimer PT 12.8 Seconds (9.4-12.1) H 01/07/18 12:28 Consult Discharge Plan - Plan Referrals: Wale Lam DO [Primary Care Provider] - Palliative Quality Palliative Quality: Screen for Code Status: Yes, Screen for Goals of Care: Yes, Screen for Pain: Yes, If Pain Regimen Started, Initiate Bowel Regimen: NA, Screen for Nausea/Vomitting: Yes
--- NOTE | 2018-01-10 18:33 | Internal Med Progress Note ---
Hospitalist Progress Note - Encounter Date of Encounter: 01/10/18 Time of Encounter: 08:00 - Subjective Interval History: patient was seen and examined at bed side. she knows that she is at [facility], knows birthdate and knows that im her physician. is at bedside and all questions answered. currently denies any pain, tolerating po diet denies fever, chills, N/v/D. - Exam Vitals: Temp Pulse Resp BP Pulse Ox 98.8 F 79 17 105/49 93 01/10/18 16:05 01/10/18 16:05 01/10/18 16:05 01/10/18 16:05 01/10/18 16:05 Exam: General: Patient is alert, oriented, no acute distress, Head: atraumatic, normocephalic, Eye: normal appearance, PERRL, no scleral icterus, no conjunctival injection ENT: mucous membranes moist, normal external ear exam, oral thrush Neck: normal inspection, trachea midline, full ROM, no carotid bruits Chest: normal inspection, symmetric chest rise Respiratory: decreased breathsounds secondary to body habitus, unable to appreciated any wheezes crackles at the MAL bilateraritly Cardiovascular: Regular rate and rhythm. s1 and s2 No clicks, rubs, gallops, or murmors. Abdomen: Bowel sounds present normoactive x-4 quadrants. Abdomen is soft, nondistended. no Epigastric tenderness. No guarding or rebound. No organomegaly noted, obese musculoskeletal: Spontaneously moving all extremities. trace edema of the bilateral lower extremities, no calf tenderness Skin: warm, dry, intact. (Right heel ulcer stage II dry no signs of infection Neuro: Alert and oriented ( to her birthdate, [facility] and herself and myself) . minimum movement bilateral upper extremities, minimal movement right lower extremities wiggles toes , minimal left lower extremities wiggles toes , based on ECF staff this is her baseline Psych: Patient's affect is normal - Assessment and Plan (1) Metabolic encephalopathy Current Visit: Yes Status: Acute Assessment and Plan: likely secondary to infection and uremia- improving/resolved ( this is my first encounter with the patient) will continue to redirect and monitor mental status. ( as per now at baseline) Ct head: IMPRESSION: Sequela of chronic small vessel ischemic disease. Improving aeration of the sphenoid sinuses. Obstruction of the external auditory canals with bilateral cerumen plugs. will resume ASA and plavix if H/h remains stable and no further GI interventions (2) Complicated UTI (urinary tract infection) Current Visit: Yes Status: Acute Assessment and Plan: urine cx positive for proteus Ct abdomen and pelvis Double-J stents are in place bilaterally. There appears be mild bilateral hydronephrosis. will consult urology in the AM continue plunkett catheter for now (3) Anemia Current Visit: No Status: Chronic Assessment and Plan: s/p 1 PRBC h/h stable FOBT positive GI consulted will monitor h/H nephrology on board- May need MEGHA and/or IV iron; PPI (4) ESRD (end stage renal disease) on dialysis Current Visit: Yes Status: Chronic Assessment and Plan: nephrology on board S/P HD on 01/09 will follow PO4 (5) Catatonic disorder due to known physiological condition Current Visit: No Status: Acute Assessment and Plan: continue home medications (6) Hypotension Current Visit: Yes Status: Acute Assessment and Plan: stable, most likely secondary to resolving infection continue to monitor vitals contiue to hold BB and ACEI for now (7) Physical deconditioning Current Visit: Yes Status: Acute Assessment and Plan: PT/OT SW and CM palliative consulted for goals of care DVT Prophylaxis: heparin SC - Time Spent with Patient Total time spent is greater than 50% in coordination of care (as documented) at patient's floor/unit and/or counseling patient: Plan of Care Discussed with: family Internal Medicine: Result - Labs CBC & Chem 7: 01/10/18 03:43 01/10/18 03:43 Labs: Short CBC 01/10/18 Range/Units 03:43 WBC 10.5 (4.3-11.1) K/mcL Hgb 10.2 L (11.5-15.4) g/dL Hct 32.7 L (35.3-44.9) % Plt Count 319 (140-400) K/mcL Neutrophils # 8.8 (1.6-8.9) K/mcL BMP 01/10/18 03:43 Sodium 139 Potassium 3.4 L Chloride 99 Carbon Dioxide 23 BUN 36 H Creatinine 5.49 H Glucose 72 Calcium 8.7 - ABG Interpretation ABG results: ABG ABG pH 7.41 pH Units (7.32-7.45) 01/07/18 12:23 ABG pCO2 32 mmHg (35-45) L 01/07/18 12:23 ABG pO2 81 mmHg (85-104) L 01/07/18 12:23 ABG O2 Saturation 96 % (95-98) 01/07/18 12:23 PT/INR, D-dimer PT 12.8 Seconds (9.4-12.1) H 01/07/18 12:28 Consult Discharge Plan - Plan Referrals: Wale Lam DO [Primary Care Provider] - (3) Anemia Qualifiers: Anemia type: unspecified type Qualified Code(s): D64.9 - Anemia, unspecified (6) Hypotension Qualifiers: Hypotension type: other hypotension type Qualified Code(s): I95.89 - Other hypotension
[2018-01-10] MEDS: Ascorbic Acid 500 MG TABLET PO SCH (20:51)
[2018-01-11 05:21] LABS: Basophils % 0.1 %; Eosinophils # 0.2 K/mcL (0.0-0.6); Eosinophils % 1.7 %; Hematocrit 29.8 % (35.3-44.9); Hemoglobin 8.9 g/dL (11.5-15.4); Immature Granulocytes % 0.9 % (0-4); Lymphocytes % 9.8 %; Mean Corpuscular HGB Conc 29.9 g/dL (31.6-35.5); Mean Corpuscular Hemoglobin 26.5 pg (28.0-33.3); Mean Corpuscular Volume 88.7 fL (83.0-100.0); Mean Platelet Volume 9.5 fL (9.4-12.4); Monocytes % 9.8 %; Neutrophils # 7.6 K/mcL (1.6-8.9); Platelet Count 295 K/mcL (140-400); Red Blood Count 3.36 M/mcL (3.82-4.97); Segmented Neutrophils % 77.7 %
[2018-01-11 05:25] LABS: Calcium 8.5 mg/dL (8.6-10.3); Magnesium 1.9 mg/dL (1.6-2.6); Phosphorous 3.7 mg/dL (2.7-4.5); Potassium 3.1 mEq/L (3.5-5.1)
[2018-01-11] MEDS: *HR* Heparin 5,000 UNIT/ML VIAL SQ SCH ×2 (06:14→17:45)
[2018-01-11] MEDS ORDERED: 0.9 % Sodium Chloride 250 ML IVC PRN (06:28)
[2018-01-11] MEDS ORDERED: *HR* Heparin 10,000 UNIT/10 ML VIAL IV PRN (07:00)
[2018-01-11] MEDS ORDERED: 0.9 % Sodium Chloride 1,000 ML ONE (07:26)
[2018-01-11] MEDS: Ascorbic Acid 500 MG TABLET PO SCH ×2 (08:21→22:10)
[2018-01-11] MEDS: Nystatin SUSP 5 ML UD.LIQ PO SCH ×4 (08:21→22:10)
[2018-01-11 08:47] LABS: Hepatitis B Surface Antibody 0.02 mIU/mL; Hepatitis B Surface Antigen Nonreactive (Nonreactive)
--- NOTE | 2018-01-11 09:12 | Urology - Consult Note ---
<Eulalia Becerril N - Last Filed: 01/11/18 09:07> Date of Encounter: 01/11/18 Time of Encounter: 09:07 - Assessment and Plan (1) Complicated UTI (urinary tract infection) Current Visit: Yes Status: Acute Assessment and plan: Patient is 72-year-old female who presents with a Proteus positive urinary tract infection. Patient has been placed on IV ertapenem. I discussed with patient's that she is likely colonized due to ureteral stents and end- stage renal disease. Patient will likely show some improvement with IV antibiotics, but infection is likely to recur secondary to patient's health status. It is of note the palliative care has been consulted. (2) Bilateral hydronephrosis Current Visit: Yes Status: Acute Assessment and plan: Patient is a 72-year-old female who presents with bilateral hydronephrosis. Patient has bilateral JJ stents in place from 11/18/2017. Hydronephrosis is likely due to indwelling ureteral stents, as the function to dilate the renal system. Patient is due for JJ stent exchange in 1 month. Patient's status will not likely improve with earlier stent exchange. At this time, we will continue to follow. Urology CN:HPI Consult date: 01/11/18 Reason for consult Urology: Hydronephrosis History of present illness: Patient is a 72-year-old female who presents with a history of bilateral hydronephrosis and urinary tract infection positive for Proteus. Patient has multiple comorbidities including end-stage renal disease. Patient is well- known to our service, as she underwent bilateral ureteral stent placement in November 2017 for hydronephrosis and hematuria. CT scan reveals hydronephrosis, which is expected with bilateral ureteral stent placement. Patient is alert and oriented 0. Patient is nonverbal, and most of her history is obtained through her . Since has been states she presented with a history of altered mental status and signs of urinary tract infection. Patient was admitted to the hospital and placed on IV ertapenem for Proteus positive urinary tract infection. Past Med Surg Social Fam HX - Past Medical History Medical history: cardiomyopathy, CHF, coronary artery disease, CVA, diabetes, GERD, hyperlipidemia, hypertension, kidney stones, myocardial infarction, peripheral artery disease, renal disease, TIA Additional medical history: renal insufficiency, blood thinner Psychiatric history: no psych history - Past Surgical History Surgical History: appendectomy, breast surgery, carotid endarterectomy, cholecystectomy, coronary bypass (CABG), hysterectomy, pacemaker/AICD, LE vascular intervention Additional surgical history: cyst removed in left breast, left chest pacer/AICD - Social History Smoking Status: Former smoker Smokeless Tobacco Status: No Alcohol use: none Drug use: none - Family History Mother Living Status: Hx Family Cardiac Disorders: Yes (HTN) Hx Family Endocrine Disorder: Yes (diabetes) Hx Family Neurologic Disorders: Yes (2 strokes) Father Living Status: Hx Family Cardiac Disorders: Yes Hx Family Respiratory Disorders: Yes Hx Family Neurologic Disorders: Yes Medications and Allergies Aspirin Enteric Coated [Aspirin EC] 81 mg PO DAILY 08/20/15 [History] Insulin Glargine,Hum.rec.anlog [Toujeo Solostar] 45 units SQ HS 06/10/16 [ History] Multivit-Minerals/Folic/Ginkgo [One Daily For Women 50+ Adv Tb] 1 tab PO QAM 12/19 [History] Furosemide [Lasix] 40 mg PO QAM 10/03/16 [History] Insulin ASPART [Novolog Flexpen] 25 unit SQ TIDWM 10/03/16 [History] Clopidogrel [Plavix] 75 mg PO DAILY 11/03/17 [History] Oxybutynin Chloride [Ditropan Xl] 10 mg PO DAILY 11/03/17 [History] Ascorbic Acid [Vitamin C] 500 mg PO BID 11/17/17 [History] Dextromethorphan HBr/Quinidine [Nuedexta 20-10 mg Capsule] 1 each PO DAILY 30 Days #30 capsule 12/08/17 [Rx] Escitalopram [Lexapro] 10 mg PO DAILY #20 tablet 12/30/17 [Rx] Lisinopril [Zestril] 2.5 mg PO DAILY #10 tablet 12/30/17 [Rx] Memantine [Namenda] 10 mg PO BID #10 tablet 12/30/17 [Rx] Amlodipine Besylate 10 mg PO QAM 01/07/18 [History] Ergocalciferol (VITAMIN D2) [Vitamin D2] 50,000 unit PO TU 01/07/18 [History] Ferrous Sulfate 325 mg PO DAILY 01/07/18 [History] LORazepam [Ativan] 1 mg PO HS 01/07/18 [History] Metoprolol Succinate 75 mg PO HS 01/07/18 [History] Rosuvastatin Calcium [Crestor] 10 mg PO DAILY 01/07/18 [History] 3 Allergy/AdvReac Type Severity Reaction Status Date / Time venom-honey bee Allergy Severe Swelling Verified 01/07/18 13:55 [bee venom (honey bee)] of Lip/Tongue/Throat Cortisone Allergy Mild Hives Verified 01/07/18 13:55 Penicillins Allergy See Verified 01/07/18 13:55 Comments NSAIDS (Non-Steroidal AdvReac Mild UPSET Verified 01/07/18 13:55 Anti-Inflamma STOMACH cefazolin [From Ancef] AdvReac Hives Verified 01/07/18 13:55 Jhqyzyg-Wqu-Vtw Reductase AdvReac Muscle Pain Verified 01/07/18 13:55 Inhibitor [Statins] GRAPE FLAVOR Allergy Mild Swelling Uncoded 01/07/18 13:55 of the Eye Review of Systems ROS unobtainable: due to mental status Exam Initial Vital Signs Temp Pulse Resp BP Pulse Ox 98.4 F 67 20 74/48 96 01/07/18 11:48 01/07/18 11:48 01/07/18 11:48 01/07/18 11:48 01/07/18 11:48 - General physical appearance Present: no distress, no pain - Eyes Present: PERRL, normal ocular movement - ENT Present: normal nares. Absent: no congestion - Neck Present: no masses, trachea midline - Respiratory Absent: normal respiratory effort - Cardiovascular Cardiovascular exam IM: RRR - Abdomen Abdomen: Present: soft, non tender - Genitourinary Present: other (Urine is clear and draining into bedside bag) - Integumentary Present: no rash, no abnormal pigmentation - Neurologic Present: disoriented Urology Results - Labs 01/11/18 04:41 01/11/18 04:41 Abnormal lab results RBC 3.36 M/mcL (3.82-4.97) L 01/11/18 04:41 Hgb 8.9 g/dL (11.5-15.4) L 01/11/18 04:41 Hct 29.8 % (35.3-44.9) L 01/11/18 04:41 MCH 26.5 pg (28.0-33.3) L 01/11/18 04:41 MCHC 29.9 g/dL (31.6-35.5) L 01/11/18 04:41 RDW 16.0 % (11.5-14.5) H 01/11/18 04:41 PT 12.8 Seconds (9.4-12.1) H 01/07/18 12:28 ABG pCO2 32 mmHg (35-45) L 01/07/18 12:23 ABG pO2 81 mmHg (85-104) L 01/07/18 12:23 ABG Base Excess -4 mEq/L (-2 to 3) L 01/07/18 12:23 Potassium 3.1 mEq/L (3.5-5.1) L 01/11/18 04:41 BUN 48 mg/dL (8-23) H 01/11/18 04:41 Creatinine 6.25 mg/dL (0.60-1.20) H 01/11/18 04:41 Est GFR ( Amer) 8 (> 60) L 01/11/18 04:41 Est GFR (Non-Af Amer) 7 (> 60) L 01/11/18 04:41 Glucose 246 mg/dL (70-105) H 01/11/18 04:41 POC Glucose 298 mg/dL (70-99) H 01/10/18 21:23 Calculated Osmolality 309 (280-300) H 01/11/18 04:41 Lactic Acid < 0.2 mmol/L (0.5-2.2) L 01/07/18 23:04 Calcium 8.5 mg/dL (8.6-10.3) L 01/11/18 04:41 Alkaline Phosphatase 151 Units/L (34-104) H 01/07/18 12:28 Troponin I 0.08 ng/mL (< 0.04) H* 01/07/18 12:28 Albumin 2.8 g/dL (3.5-5.7) L 01/07/18 12:28 Globulin 4.0 g/dL (2.4-3.5) H 01/07/18 12:28 Albumin/Globulin Ratio 0.7 (1.1-2.2) L 01/07/18 12:28 Urine Clarity Turbid (Clear) A 01/07/18 14:58 Ur Specific Wallace 1.007 (1.010-1.025) L 01/07/18 14:58 Urine Protein >=1000 mg/dL (Neg-Trace) H 01/07/18 14:58 Urine Ketones Trace mg/dL (Negative) H 01/07/18 14:58 Urine Blood Large (Negative) H 01/07/18 14:58 Ur Leukocyte Esterase Large (Negative) H 01/07/18 14:58 Urine Microscopic WBC TNTC per hpf (0-3) H 01/07/18 14:58 Ur Culture Indicated? YES (NO) A 01/07/18 14:58 Stool Occult Blood Positive (Negative) A 01/10/18 08:15 Diabetes panel 01/11/18 Range/Units 04:41 Sodium 139 (136-145) mEq/L Potassium 3.1 L (3.5-5.1) mEq/L Chloride 101 (98-107) mEq/L Carbon Dioxide 23 (23-29) mEq/L BUN 48 H (8-23) mg/dL Creatinine 6.25 H (0.60-1.20) mg/dL Glucose 246 H (70-105) mg/dL Calcium 8.5 L (8.6-10.3) mg/dL Calcium panel 01/11/18 Range/Units 04:41 Calcium 8.5 L (8.6-10.3) mg/dL Phosphorus 3.7 (2.7-4.5) mg/dL Pituitary panel 01/11/18 Range/Units 04:41 Sodium 139 (136-145) mEq/L Potassium 3.1 L (3.5-5.1) mEq/L Chloride 101 (98-107) mEq/L Carbon Dioxide 23 (23-29) mEq/L BUN 48 H (8-23) mg/dL Creatinine 6.25 H (0.60-1.20) mg/dL Glucose 246 H (70-105) mg/dL Calcium 8.5 L (8.6-10.3) mg/dL Adrenal panel 01/11/18 Range/Units 04:41 Sodium 139 (136-145) mEq/L Potassium 3.1 L (3.5-5.1) mEq/L Chloride 101 (98-107) mEq/L Carbon Dioxide 23 (23-29) mEq/L BUN 48 H (8-23) mg/dL Creatinine 6.25 H (0.60-1.20) mg/dL Glucose 246 H (70-105) mg/dL Calcium 8.5 L (8.6-10.3) mg/dL All other labs normal. - Imaging CT scan - abdomen: report reviewed, image reviewed CT scan - pelvis: report reviewed, image reviewed Consult Discharge Plan - Plan Referrals: Wale Lam DO [Primary Care Provider] - <Gustavo Antunez - Last Filed: 01/11/18 18:48> Date of Encounter: 01/11/18 - Assessment and Plan (1) Bilateral hydronephrosis Current Visit: Yes Status: Acute Assessment and plan: Patient seen in conjunction with physician cafeteria assistant. No urologic intervention at this time. Consider removing ureteral stents after antibiotics are complete rather then exchange the stents but there is a risk she could develop worsening symptoms if obstruction remains.. Unfortunately poor prognosis based on other services notes. Exam Initial Vital Signs Temp Pulse Resp BP Pulse Ox 98.4 F 67 20 74/48 96 01/07/18 11:48 01/07/18 11:48 01/07/18 11:48 01/07/18 11:48 01/07/18 11:48 Urology Results - Labs 01/11/18 04:41 01/11/18 04:41 Abnormal lab results RBC 3.36 M/mcL (3.82-4.97) L 01/11/18 04:41 Hgb 8.9 g/dL (11.5-15.4) L 01/11/18 04:41 Hct 29.8 % (35.3-44.9) L 01/11/18 04:41 MCH 26.5 pg (28.0-33.3) L 01/11/18 04:41 MCHC 29.9 g/dL (31.6-35.5) L 01/11/18 04:41 RDW 16.0 % (11.5-14.5) H 01/11/18 04:41 PT 12.8 Seconds (9.4-12.1) H 01/07/18 12:28 ABG pCO2 32 mmHg (35-45) L 01/07/18 12:23 ABG pO2 81 mmHg (85-104) L 01/07/18 12:23 ABG Base Excess -4 mEq/L (-2 to 3) L 01/07/18 12:23 Potassium 3.1 mEq/L (3.5-5.1) L 01/11/18 04:41 BUN 48 mg/dL (8-23) H 01/11/18 04:41 Creatinine 6.25 mg/dL (0.60-1.20) H 01/11/18 04:41 Est GFR ( Amer) 8 (> 60) L 01/11/18 04:41 Est GFR (Non-Af Amer) 7 (> 60) L 01/11/18 04:41 Glucose 246 mg/dL (70-105) H 01/11/18 04:41 POC Glucose 298 mg/dL (70-99) H 01/10/18 21:23 Calculated Osmolality 309 (280-300) H 01/11/18 04:41 Lactic Acid < 0.2 mmol/L (0.5-2.2) L 01/07/18 23:04 Calcium 8.5 mg/dL (8.6-10.3) L 01/11/18 04:41 Alkaline Phosphatase 151 Units/L (34-104) H 01/07/18 12:28 Troponin I 0.08 ng/mL (< 0.04) H* 01/07/18 12:28 Albumin 2.8 g/dL (3.5-5.7) L 01/07/18 12:28 Globulin 4.0 g/dL (2.4-3.5) H 01/07/18 12:28 Albumin/Globulin Ratio 0.7 (1.1-2.2) L 01/07/18 12:28 Urine Clarity Turbid (Clear) A 01/07/18 14:58 Ur Specific Wallace 1.007 (1.010-1.025) L 01/07/18 14:58 Urine Protein >=1000 mg/dL (Neg-Trace) H 01/07/18 14:58 Urine Ketones Trace mg/dL (Negative) H 01/07/18 14:58 Urine Blood Large (Negative) H 01/07/18 14:58 Ur Leukocyte Esterase Large (Negative) H 01/07/18 14:58 Urine Microscopic WBC TNTC per hpf (0-3) H 01/07/18 14:58 Ur Culture Indicated? YES (NO) A 01/07/18 14:58 Stool Occult Blood Positive (Negative) A 01/10/18 08:15 Diabetes panel 01/11/18 Range/Units 04:41 Sodium 139 (136-145) mEq/L Potassium 3.1 L (3.5-5.1) mEq/L Chloride 101 (98-107) mEq/L Carbon Dioxide 23 (23-29) mEq/L BUN 48 H (8-23) mg/dL Creatinine 6.25 H (0.60-1.20) mg/dL Glucose 246 H (70-105) mg/dL Calcium 8.5 L (8.6-10.3) mg/dL Calcium panel 01/11/18 Range/Units 04:41 Calcium 8.5 L (8.6-10.3) mg/dL Phosphorus 3.7 (2.7-4.5) mg/dL Pituitary panel 01/11/18 Range/Units 04:41 Sodium 139 (136-145) mEq/L Potassium 3.1 L (3.5-5.1) mEq/L Chloride 101 (98-107) mEq/L Carbon Dioxide 23 (23-29) mEq/L BUN 48 H (8-23) mg/dL Creatinine 6.25 H (0.60-1.20) mg/dL Glucose 246 H (70-105) mg/dL Calcium 8.5 L (8.6-10.3) mg/dL Adrenal panel 01/11/18 Range/Units 04:41 Sodium 139 (136-145) mEq/L Potassium 3.1 L (3.5-5.1) mEq/L Chloride 101 (98-107) mEq/L Carbon Dioxide 23 (23-29) mEq/L BUN 48 H (8-23) mg/dL Creatinine 6.25 H (0.60-1.20) mg/dL Glucose 246 H (70-105) mg/dL Calcium 8.5 L (8.6-10.3) mg/dL All other labs normal.
[2018-01-11] MEDS ORDERED: Dextrose Gel 15 GM/37.5 ML TUBE PO PRN ×2 (09:51)
[2018-01-11] MEDS ORDERED: D5% in Water 1,000 ML IVC PRN (09:51)
[2018-01-11] MEDS ORDERED: *HR* Dextrose 50 % in Water (Syg) 50 ML SYRINGE IVP PRN (09:51)
--- NOTE | 2018-01-11 10:02 | Nephrology Progress Note ---
Date of Encounter: 01/11/18 Time of Encounter: 09:30 - Assessment and Plan (1) Acute kidney injury superimposed on chronic kidney disease Current Visit: No Status: Chronic Dialysis dependent TENISHA and has required intermittent dialysis every M//. I reviewed her labs, vitals, med list, prior imaging (appreciate Urology's help with the ureteral stents) and progress notes. I ordered HD based upon her vitals, labs and for clearance and volume status, which remains edematous, so she should continue to have a Low Na diet and fluid restriction as my recommendations. Next HD is planned for Tuesday. (2) Anemia Current Visit: No Status: Chronic Goal Hgb is 10-11 and she is below the goal. May need MEGHA and/or IV iron; will monitor. Qualifiers: Anemia type: unspecified type Qualified Code(s): D64.9 - Anemia, unspecified (3) Nonverbal Current Visit: No Status: Chronic Psychiatric history. As per primary. Subjective Principal diagnosis: ESRD with missed dialysis Interval history: Pt was s/e earlier today, and she did not affirm N/V/D or cramping. Objective - Vital Signs Vital signs: Vital Signs Temp Pulse Resp BP Pulse Ox 01/11/18 06:54 98.4 F 90 17 113/65 94 01/11/18 04:21 98.5 F 81 16 118/74 93 01/11/18 01:12 98.4 F 81 16 116/71 94 01/10/18 21:20 98.8 F 81 16 111/68 94 01/10/18 16:05 98.8 F 79 17 105/49 93 01/10/18 13:25 99.4 F 88 18 103/64 93 01/10/18 11:44 98.1 F 01/10/18 11:00 75 20 108/63 96 Intake and Output 01/10/18 01/11/18 01/11/18 23:59 07:59 15:59 Intake Total 220 / 220 60 / 60 Output Total 350 / 350 Balance 220 / 220 -290 / -290 Intake: IV Fluids 100 / 100 INVanz 500 MG In 0.9 % Sodium 100 / 100 Chloride 100 ML @ 100 mls/hr IVPB Q24H MAGAN Rx#:[id number] Oral 120 / 120 60 / 60 Output: Catheter 350 / 350 Other: Meal Dinner Percent of Meal Consumed 45% Weight 93.5 kg Blood Glucose* 298 229 Patient Weight 01/11/18 23:59 Weight 93.5 kg - General Appearance General appearance: Present: appears started age, obese, chronically ill, fatigue, frail EENT: Present: ATNC, PERRL, mucous membranes moist Neck: Present: supple Respiratory: Present: clear Cardiology: Present: edema (1+ pretibial pitting edema b/l), regular rate, regular rhythm, normal S1, normal S2 Dialysis Vascular Access: Venous Catheter (Permacath in place and was C/D/I) Gastrointestinal: Present: no tenderness, no guarding, obese Integumentary: Present: warm and dry Neurologic: Present: no focal deficit, no asterixis Additional Comments: Flat affect and minimal speech. She was able to recite her name, location and year. - Lab 01/11/18 04:41 01/11/18 04:41 Most recent lab results ABG pH 7.41 pH Units (7.32-7.45) 01/07/18 12:23 ABG pCO2 32 mmHg (35-45) L 01/07/18 12:23 ABG pO2 81 mmHg (85-104) L 01/07/18 12:23 ABG HCO3 21 mEq/L (21-27) 01/07/18 12:23 ABG O2 Saturation 96 % (95-98) 01/07/18 12:23 Calcium 8.5 mg/dL (8.6-10.3) L 01/11/18 04:41 Phosphorus 3.7 mg/dL (2.7-4.5) 01/11/18 04:41 Magnesium 1.9 mg/dL (1.6-2.6) 01/11/18 04:41 Consult Discharge Plan - Plan Referrals: Wale Lam DO [Primary Care Provider] -
--- NOTE | 2018-01-11 10:54 | Gastroenterology Consult Note ---
Date of Encounter: 01/11/18 Time of Encounter: 09:25 - Assessment and plan (1) Anemia Current Visit: No Status: Acute Assessment and plan: On admission Hgb 9 with MCV 88.5, Hgb dropped to 7.4 on 01/08 and she received 1 unit PRBC. Fecal occult blood test positive on 01/10. Hgb 8.9 with MCV 88.7 this AM. Continue to monitor CBC and transfuse PRBC as needed. Plan for EGD tomorrow to r/o esophagitis, gastritis, duodenitis, PUD, MW tear, or AVM. Keep patient NPO at midnight. Qualifiers: Anemia type: unspecified type Qualified Code(s): D64.9 - Anemia, unspecified (2) Fecal occult blood test positive Current Visit: Yes Status: Acute Assessment and plan: As above. (3) ESRD (end stage renal disease) on dialysis Current Visit: Yes Status: Chronic Assessment and plan: Management per Nephrology. - Time Spent With Patient Total time spent is greater than 50% in coordination of care (as documented) at patient's floor/unit and/or counseling patient: GI History of Present Illness - Data of Consult Patient: new to practice Consult date: 01/11/18 Requesting Physician: Do Lockett MD - Consult Narrative Reason for consult: Anemia, FOBT positive History of present illness: Ms. Bentley is a 72 year old female with PMHx of cardiomyopathy (pacemaker/AICD), CHF, ESRD, CAD, CVA, DM, GERD, HLD, HTN, [place], who was transferred from [facility] with altered mental status, hypotension, and hypoxemia. Pt apparently missed a week on HD first due to permcath problems on Tuesday and then for nausea/vomiting on and presented to the ED on Tuesday instead of the HD unit. We were consulted to evaluate her anemis. On admission Hgb 9 with MCV 88.5, Hgb dropped to 7.4 on 01/08 and she received 1 unit PRBC. Fecal occult blood test positive on 01/10. Hgb 8.9 with MCV 88.7 this AM. Procedures: None NSAIDs: ASA Anticoagulation: Plavix Past Med Surg Social Fam HX - Past Medical History Medical history: cardiomyopathy, CHF, coronary artery disease, CVA, diabetes, GERD, hyperlipidemia, hypertension, kidney stones, myocardial infarction, peripheral artery disease, renal disease, TIA Additional medical history: renal insufficiency, blood thinner Psychiatric history: no psych history - Past Surgical History Surgical History: appendectomy, breast surgery, carotid endarterectomy, cholecystectomy, coronary bypass (CABG), hysterectomy, pacemaker/AICD, LE vascular intervention Additional surgical history: cyst removed in left breast, left chest pacer/AICD - Social History Smoking Status: Former smoker Smokeless Tobacco Status: No Alcohol use: none Drug use: none - Family History Mother Living Status: Hx Family Cardiac Disorders: Yes (HTN) Hx Family Endocrine Disorder: Yes (diabetes) Hx Family Neurologic Disorders: Yes (2 strokes) Father Living Status: Hx Family Cardiac Disorders: Yes Hx Family Respiratory Disorders: Yes Hx Family Neurologic Disorders: Yes - Gastrointestinal Gastrointestinal: Present: as per HPI - Constitutional Constitutional: as per HPI - EENT Eyes: as per HPI Ears: Present: as per HPI Nose, mouth and throat: Present: as per HPI - Cardiovascular Cardiovascular ROS: Present: as per HPI - Respiratory Respiratory IM: Present: as per HPI - Genitourinary Genitourinary: Absent: change in color, Urinary frequency - Neurological ROS Neurological GI: Present: as per HPI - Hematologic/Lymphatic Hematologic/Lymphatic pediatric: Present: as per HPI - Musculoskeletal Musculoskeletal ROS GI: Present: as per HPI - Integumentary Integumentary GI: Present: as per HPI - Psychiatric ROS Psychiatric GI: Present: as per HPI - Endocrine Endocrine IM: Present: as per HPI - Constitutional Vitals: Temp Pulse Resp BP Pulse Ox 98.3 F 90 18 113/45 94 01/11/18 09:15 01/11/18 06:54 01/11/18 09:15 01/11/18 10:45 01/11/18 06:54 General appearance: Present: A&O X 3, no acute distress, answers questions appropriately - Head Head exam: Present: atraumatic, normocephalic - Eye Eye exam: Present: normal appearance, sclera anicteric - ENT ENT exam: Present: mucous membranes dry - Neck Neck exam general surgery: Present: normal inspection, trachea midline - Respiratory Respiratory exam: Present: decreased breath sounds, CTAB - Cardiovascular Cardiovascular exam: Present: RRR, +S1, +S2 - GI/Abdominal GI/Abdominal exam: Present: soft, no peritoneal signs. Absent: distended, firm, guarding, tenderness - Rectal Rectal exam: Present: deferred - Extremities Exam Extremities exam: Present: warm - Neurological Exam Neurological exam: Present: no focal deficits - Psychiatric Psychiatric exam: Present: flat affect Additional comments: minimal speech - Skin Skin exam: Present: dry, intact, normal color, warm - Other Additional findings: Permacath in place. Results - Labs CBC & Chem 7: 01/11/18 04:41 01/11/18 04:41 Labs: Last Result Calcium 8.5 mg/dL (8.6-10.3) L 01/11/18 04:41 Troponin I 0.08 ng/mL (< 0.04) H* 01/07/18 12:28 Stool Occult Blood Positive (Negative) A 01/10/18 08:15 Entire Visit Hgb 8.9 g/dL (11.5-15.4) L 01/11/18 04:41 Hct 29.8 % (35.3-44.9) L 01/11/18 04:41 PT 12.8 Seconds (9.4-12.1) H 01/07/18 12:28 Total Bilirubin 0.5 mg/dL (0.3-1.0) 01/07/18 12:28 AST 20 Units/L (13-39) 01/07/18 12:28 ALT 12 Units/L (7-52) 01/07/18 12:28 Ammonia 30 mcmol/L (16-53) 01/07/18 12:28 - ABG ABG results: ABG ABG pH 7.41 pH Units (7.32-7.45) 01/07/18 12:23 ABG pCO2 32 mmHg (35-45) L 01/07/18 12:23 ABG pO2 81 mmHg (85-104) L 01/07/18 12:23 ABG O2 Saturation 96 % (95-98) 01/07/18 12:23 PT/INR, D-dimer PT 12.8 Seconds (9.4-12.1) H 01/07/18 12:28 Consult Discharge Plan - Plan Referrals: Wale Lam DO [Primary Care Provider] -
[2018-01-11] MEDS: Insulin LISPRO 300 UNITS/3 ML VIAL SQ SCH ×3 (12:59→22:10)
--- NOTE | 2018-01-11 14:02 | Event Note ---
Date of Encounter: 01/11/18 Time of Encounter: 14:00 Patient's goals of care established. Patient's requires her to return to rehab at discharge. Patient desires to continue to be FULL CODE and continue Dialysis. Palliative care to sign off. Please reconsult if clinical course changes.
--- NOTE | 2018-01-11 16:07 | Internal Med Progress Note ---
Hospitalist Progress Note - Encounter Date of Encounter: 01/11/18 Time of Encounter: 08:10 - Subjective Interval History: patient was seen and examined at bed side. alert and is at bedside and all questions answered. currently denies any pain, tolerating po diet denies fever, chills, N/v/D. - Exam Vitals: Temp Pulse Resp BP Pulse Ox 98.3 F 88 18 99/63 91 01/11/18 15:56 01/11/18 15:56 01/11/18 15:56 01/11/18 15:56 01/11/18 15:56 Exam: General: Patient is alert, oriented, no acute distress, Head: atraumatic, normocephalic, Eye: normal appearance, PERRL, no scleral icterus, no conjunctival injection ENT: mucous membranes moist, normal external ear exam, oral thrush Neck: normal inspection, trachea midline, full ROM, no carotid bruits Chest: normal inspection, symmetric chest rise, left sided dialysis catheter that is clean Respiratory: decreased breathsounds secondary to body habitus, unable to appreciated any wheezes crackles at the MAL bilateraritly Cardiovascular: Regular rate and rhythm. s1 and s2 No clicks, rubs, gallops, or murmors. Abdomen: Bowel sounds present normoactive x-4 quadrants. Abdomen is soft, nondistended. no Epigastric tenderness. No guarding or rebound. No organomegaly noted, obese musculoskeletal: Spontaneously moving all extremities. trace edema of the bilateral lower extremities, no calf tenderness Skin: warm, dry, intact. (Right heel ulcer stage II dry no signs of infection Neuro: Alert and oriented ( to her birthdate, [facility] and herself and myself) . minimum movement bilateral upper extremities, minimal movement right lower extremities wiggles toes , minimal left lower extremities wiggles toes , based on ECF staff this is her baseline Psych: Patient's affect is normal - Assessment and Plan (1) Metabolic encephalopathy Current Visit: Yes Status: Acute Assessment and Plan: likely secondary to infection and uremia- resolved will continue to redirect and monitor mental status. ( as per now at baseline) Ct head: IMPRESSION: Sequela of chronic small vessel ischemic disease. Improving aeration of the sphenoid sinuses. Obstruction of the external auditory canals with bilateral cerumen plugs. will resume ASA and plavix if H/h remains stable and no further GI interventions (2) Complicated UTI (urinary tract infection) Current Visit: Yes Status: Acute Assessment and Plan: urine cx positive for proteus Ct abdomen and pelvis Double-J stents are in place bilaterally. There appears be mild bilateral hydronephrosis. urology recs appreciated - Patient is due for JJ stent exchange in 1 month. D/c plunkett catheter bladder scan PRN (3) Anemia Current Visit: No Status: Chronic Assessment and Plan: s/p 1 PRBC h/h stable FOBT positive GI consulted will monitor h/H nephrology on board- May need MEGHA and/or IV iron; PPI NPO at midnight (4) ESRD (end stage renal disease) on dialysis Current Visit: Yes Status: Chronic Assessment and Plan: nephrology on board S/P HD on 01/09 will follow PO4 (5) Catatonic disorder due to known physiological condition Current Visit: No Status: Acute Assessment and Plan: continue home medications (6) Hypotension Current Visit: Yes Status: Acute Assessment and Plan: stable, most likely secondary to resolving infection continue to monitor vitals contiue to hold BB and ACEI for now (7) Physical deconditioning Current Visit: Yes Status: Acute Assessment and Plan: PT/OT SW and CM palliative consulted for goals of care - Time Spent with Patient Total time spent is greater than 50% in coordination of care (as documented) at patient's floor/unit and/or counseling patient: Internal Medicine: Result - Labs CBC & Chem 7: 01/11/18 04:41 01/11/18 04:41 Labs: Short CBC 01/11/18 Range/Units 04:41 WBC 9.8 (4.3-11.1) K/mcL Hgb 8.9 L (11.5-15.4) g/dL Hct 29.8 L (35.3-44.9) % Plt Count 295 (140-400) K/mcL Neutrophils # 7.6 (1.6-8.9) K/mcL BMP 01/11/18 04:41 Sodium 139 Potassium 3.1 L Chloride 101 Carbon Dioxide 23 BUN 48 H Creatinine 6.25 H Glucose 246 H Calcium 8.5 L - ABG Interpretation ABG results: ABG ABG pH 7.41 pH Units (7.32-7.45) 01/07/18 12:23 ABG pCO2 32 mmHg (35-45) L 01/07/18 12:23 ABG pO2 81 mmHg (85-104) L 01/07/18 12:23 ABG O2 Saturation 96 % (95-98) 01/07/18 12:23 PT/INR, D-dimer PT 12.8 Seconds (9.4-12.1) H 01/07/18 12:28 Consult Discharge Plan - Plan Referrals: Wale Lam DO [Primary Care Provider] - (3) Anemia Qualifiers: Anemia type: unspecified type Qualified Code(s): D64.9 - Anemia, unspecified (6) Hypotension Qualifiers: Hypotension type: other hypotension type Qualified Code(s): I95.89 - Other hypotension
[2018-01-12] MEDS: *HR* Heparin 5,000 UNIT/ML VIAL SQ SCH ×2 (04:35→17:40)
[2018-01-12 05:46] LABS: Basophils % 0.3 %; Eosinophils # 0.3 K/mcL (0.0-0.6); Eosinophils % 2.2 %; Hematocrit 33.7 % (35.3-44.9); Hemoglobin 10.4 g/dL (11.5-15.4); Immature Granulocytes % 1.6 % (0-4); Lymphocytes # 1.4 K/mcL (0.6-4.6); Lymphocytes % 11.6 %; Mean Corpuscular HGB Conc 30.9 g/dL (31.6-35.5); Mean Corpuscular Hemoglobin 27.2 pg (28.0-33.3); Mean Platelet Volume 9.5 fL (9.4-12.4); Monocytes # 1.1 K/mcL (0.0-1.3); Monocytes % 8.8 %; Platelet Count 291 K/mcL (140-400); Red Blood Count 3.83 M/mcL (3.82-4.97); Red Cell Distribution Width 15.9 % (11.5-14.5); Segmented Neutrophils % 75.5 %
[2018-01-12 06:05] LABS: Calcium 8.5 mg/dL (8.6-10.3); Magnesium 1.8 mg/dL (1.6-2.6); Potassium 3.7 mEq/L (3.5-5.1)
[2018-01-12 06:08] LABS: Neutrophils # 9.1 K/mcL (1.6-8.9)
[2018-01-12 06:13] LABS: Platelet Estimate Normal (Normal)
[2018-01-12] MEDS: Insulin LISPRO 300 UNITS/3 ML VIAL SQ SCH ×4 (07:42→21:39)
[2018-01-12] MEDS: Nystatin SUSP 5 ML UD.LIQ PO SCH ×4 (07:43→21:39)
[2018-01-12] MEDS: Ascorbic Acid 500 MG TABLET PO SCH ×2 (07:44→21:38)
--- NOTE | 2018-01-12 10:45 | Anesthesia Evaluation PreOp ---
Date of Encounter: 01/12/18 Time of Encounter: 12:14 - Past History Planned Operation: EGD Cardiac History: RI (2015), CHF, HTN, Hyperlipidemia, Arrhythmia (chronic A-Fib) , Cardiac Surgery (CABG x 2), Pacemaker/ICD (medtronic pacemaker/AICD), Other ( cardiomyopathy LVEF 30% by echo) Pulmonary History: Former smoker (quit 20+ years ago) [employer] History: CVA (residual RLE weakness) Other Medical History: Renal (acute kidney injury superimposed on chronic kidney disease, on dialysis), Diabetes Type II, GERD Anesthesia History: No Prior Anesthetic Complications (CKD), Past Anesthesia Alcohol Use: none Drug use: none Medications and Allergies Aspirin Enteric Coated [Aspirin EC] 81 mg PO DAILY 08/20/15 [History] Insulin Glargine,Hum.rec.anlog [Toujeo Solostar] 45 units SQ HS 06/10/16 [ History] Multivit-Minerals/Folic/Ginkgo [One Daily For Women 50+ Adv Tb] 1 tab PO QAM 12/19 [History] Furosemide [Lasix] 40 mg PO QAM 10/03/16 [History] Insulin ASPART [Novolog Flexpen] 25 unit SQ TIDWM 10/03/16 [History] Clopidogrel [Plavix] 75 mg PO DAILY 11/03/17 [History] Oxybutynin Chloride [Ditropan Xl] 10 mg PO DAILY 11/03/17 [History] Ascorbic Acid [Vitamin C] 500 mg PO BID 11/17/17 [History] Dextromethorphan HBr/Quinidine [Nuedexta 20-10 mg Capsule] 1 each PO DAILY 30 Days #30 capsule 12/08/17 [Rx] Escitalopram [Lexapro] 10 mg PO DAILY #20 tablet 12/30/17 [Rx] Lisinopril [Zestril] 2.5 mg PO DAILY #10 tablet 12/30/17 [Rx] Memantine [Namenda] 10 mg PO BID #10 tablet 12/30/17 [Rx] Amlodipine Besylate 10 mg PO QAM 01/07/18 [History] Ergocalciferol (VITAMIN D2) [Vitamin D2] 50,000 unit PO TU 01/07/18 [History] Ferrous Sulfate 325 mg PO DAILY 01/07/18 [History] LORazepam [Ativan] 1 mg PO HS 10/06/18 [History] Metoprolol Succinate 75 mg PO HS 01/07/18 [History] Rosuvastatin Calcium [Crestor] 10 mg PO DAILY 01/07/18 [History] 3 Allergy/AdvReac Type Severity Reaction Status Date / Time venom-honey bee Allergy Severe Swelling Verified 01/07/18 13:55 [bee venom (honey bee)] of Lip/Tongue/Throat Cortisone Allergy Mild Hives Verified 01/07/18 13:55 Penicillins Allergy See Verified 01/07/18 13:55 Comments NSAIDS (Non-Steroidal AdvReac Mild UPSET Verified 01/07/18 13:55 Anti-Inflamma STOMACH cefazolin [From Ancef] AdvReac Hives Verified 01/07/18 13:55 Urrexkd-Bnq-Tat Reductase AdvReac Muscle Pain Verified 01/07/18 13:55 Inhibitor [Statins] GRAPE FLAVOR Allergy Mild Swelling Uncoded 01/07/18 13:55 of the Eye - Meds/Allergy Pre-op Review Medications Reviewed: Yes Allergies Reviewed: Yes Beta Blockers on Current Med List: No Anesthesia Results - Labs 01/12/18 05:31 01/12/18 05:31 - Imaging EKG: report reviewed (11/17/2017 ELECTRONIC ATRIAL PACEMAKER ELECTRONIC VENTRICULAR PACEMAKER ABNORMAL RHYTHM ECG) Additional studies: 12/10/2017 Echo Impressions: LVEF 30%. Global and segmental LV systolic dysfunction. Mildly dilated left ventricle. Atypical septal motion consistent with post-operative status. Indeterminate diastolic function. There is no LV thrombus. Definity echo contrast was used. RV is not well visualized. Mild-moderate mitral regurgitation. Mild tricuspid regurgitation. Mild pulmonary hypertension. Elevated RA pressures. 10/03/2016 Echo Impressions: LVEF 30%. Moderately dilated left ventricle. Severe global left ventricular systolic dysfunction with regional variations. Moderate left ventricular diastolic dysfunction. Atypical septal motion consistent with paced rhythm. Right ventricle was not well visualized. Mild mitral regurgitation. No evidence of pulmonary hypertension. 04/23/2016 Limited Echo Impressions: Complete echocardiogram was performed on 04/05/16. This was a limited with contrast study to better assess LV systolic function. Moderate-severely dilated left ventricle. Severe left ventricular systolic dysfunction, LVEF 30%. There is global hypokinesis with regional variations. 01/05/2016 LEFT HEART CATH Indications: Non-Stemi, CHF Impressions: There is severe three vessel coronary artery disease. LVEF 20-25% S/P CABG 2 of 2 patent bypass grafts. 3+ Mitral Regurgitation. Recommendations: Optimal medical therapy of patient's disease. Aggressive risk factor modification. Anesthesia Exam Height: 5'3''/1.6m Weight: 206 lbs/93.5 kg - HEENT Pupil (Motor): EOMI Mallampati: III Teeth: Missing, Poor dentition, Prosthesis Denture Type: Upper: Complete Oral Opening: Greater than 3 - [employer] LOC: Unable to assess (patient awakens to stimulus but does not answer and goes back to sleep) - Cardiac Rhythm: Irregular Murmur: None - Pulmonary Breath Sounds: bilateral Clear Respiratory Effort: Symmetrical Anesthesia Assess/Plan ASA Score: 4 Modified Procious Scale for Level of Consciousness: Asleep with sluggish response to stimulus (Consent obtained from spouse) Anesthetic Plan: MAC Monitoring Plan: Standard Monitors
--- NOTE | 2018-01-12 16:17 | Event Note ---
<Ebony Alicea - Last Filed: 01/12/18 16:16> Date of Encounter: 01/12/18 Time of Encounter: 15:[address] Reina, endoscopy procedures cancelled due to lethargy and mental status change from yesterday. Neurology was consulted. <Pee eRina - Last Filed: 01/20/18 07:40> Agree - neurological work up in progress. Please reconsult prn I have personally performed a face to face evaluation on this patient. I have reviewed and agree with the care plan. History and Exam by me shows:
--- NOTE | 2018-01-12 17:14 | Event Note ---
Date of Encounter: 01/12/18 Time of Encounter: 17:14 Nephrology Update Plan for the next HD tomorrow (Tuesday). Thank you.
--- NOTE | 2018-01-12 19:07 | Internal Med Progress Note ---
Hospitalist Progress Note - Encounter Date of Encounter: 01/12/18 Time of Encounter: 08:00 - Subjective Interval History: patient was seen and examined at bed side. alert and awake is at bedside and all questions answered. currently denies any pain, tolerating po diet how ever is NPO for EGD today denies fever, chills, N/v/D. - Exam Vitals: Temp Pulse Resp BP Pulse Ox 98.7 F 92 18 132/77 97 01/12/18 16:46 01/12/18 16:46 01/12/18 16:46 01/12/18 16:46 01/12/18 16:46 Exam: General: Patient is alert, oriented, no acute distress, Head: atraumatic, normocephalic, Eye: normal appearance, PERRL, no scleral icterus, no conjunctival injection ENT: mucous membranes moist, normal external ear exam, oral thrush Neck: normal inspection, trachea midline, full ROM, no carotid bruits Chest: normal inspection, symmetric chest rise, left sided dialysis catheter that is clean Respiratory: decreased breathsounds secondary to body habitus, unable to appreciated any wheezes crackles at the MAL bilateraritly Cardiovascular: Regular rate and rhythm. s1 and s2 No clicks, rubs, gallops, or murmors. Abdomen: Bowel sounds present normoactive x-4 quadrants. Abdomen is soft, nondistended. no Epigastric tenderness. No guarding or rebound. No organomegaly noted, obese musculoskeletal: Spontaneously moving all extremities. trace edema of the bilateral lower extremities, no calf tenderness Skin: warm, dry, intact. (Right heel ulcer stage II dry no signs of infection Neuro: Alert and oriented ( to her birthdate, [facility] and herself and myself) . minimum movement bilateral upper extremities, minimal movement right lower extremities wiggles toes , minimal left lower extremities wiggles toes , based on ECF staff this is her baseline Psych: Patient's affect is normal - Assessment and Plan (1) Metabolic encephalopathy Current Visit: Yes Status: Acute Assessment and Plan: likely secondary to infection and uremia- resolved will continue to redirect and monitor mental status. ( as per now at baseline) Ct head: IMPRESSION: Sequela of chronic small vessel ischemic disease. Improving aeration of the sphenoid sinuses. Obstruction of the external auditory canals with bilateral cerumen plugs. will resume ASA and plavix if H/h remains stable and no further GI interventions (2) Complicated UTI (urinary tract infection) Current Visit: Yes Status: Acute Assessment and Plan: urine cx positive for proteus Ct abdomen and pelvis Double-J stents are in place bilaterally. There appears be mild bilateral hydronephrosis. urology recs appreciated - Patient is due for JJ stent exchange in 1 month. D/c plunkett catheter bladder scan PRN (3) Anemia Current Visit: No Status: Chronic Assessment and Plan: s/p 1 PRBC h/h stable FOBT positive GI consulted will monitor h/H nephrology on board- May need MEGHA and/or IV iron; PPI NPO for EGD (4) ESRD (end stage renal disease) on dialysis Current Visit: Yes Status: Chronic Assessment and Plan: nephrology on board S/P HD on 01/09 will follow PO4 (5) Catatonic disorder due to known physiological condition Current Visit: No Status: Acute Assessment and Plan: continue home medications (6) Hypotension Current Visit: Yes Status: Acute Assessment and Plan: stable, most likely secondary to resolving infection continue to monitor vitals contiue to hold BB and ACEI for now (7) Physical deconditioning Current Visit: Yes Status: Acute Assessment and Plan: PT/OT SW and CM palliative consulted for goals of care - Time Spent with Patient Total time spent is greater than 50% in coordination of care (as documented) at patient's floor/unit and/or counseling patient: Internal Medicine: Result - Labs CBC & Chem 7: 01/12/18 05:31 01/12/18 05:31 Labs: Short CBC 01/12/18 Range/Units 05:31 WBC 12.0 H (4.3-11.1) K/mcL Hgb 10.4 L D (11.5-15.4) g/dL Hct 33.7 L (35.3-44.9) % Plt Count 291 (140-400) K/mcL Neutrophils # 9.1 H (1.6-8.9) K/mcL BMP 01/12/18 05:31 Sodium 136 Potassium 3.7 Chloride 98 Carbon Dioxide 24 BUN 24 H Creatinine 3.68 H Glucose 227 H Calcium 8.5 L - ABG Interpretation ABG results: ABG ABG pH 7.41 pH Units (7.32-7.45) 01/07/18 12:23 ABG pCO2 32 mmHg (35-45) L 01/07/18 12:23 ABG pO2 81 mmHg (85-104) L 01/07/18 12:23 ABG O2 Saturation 96 % (95-98) 01/07/18 12:23 PT/INR, D-dimer PT 12.8 Seconds (9.4-12.1) H 01/07/18 12:28 Consult Discharge Plan - Plan Referrals: Wale Lam DO [Primary Care Provider] - (Patient is edd [facility]) (3) Anemia Qualifiers: Anemia type: unspecified type Qualified Code(s): D64.9 - Anemia, unspecified (6) Hypotension Qualifiers: Hypotension type: other hypotension type Qualified Code(s): I95.89 - Other hypotension
[2018-01-13 04:43] LABS: Basophils % 0.3 %; Eosinophils # 0.3 K/mcL (0.0-0.6); Eosinophils % 3.5 %; Hemoglobin 10.2 g/dL (11.5-15.4); Immature Granulocytes % 1.4 % (0-4); Lymphocytes # 1.2 K/mcL (0.6-4.6); Lymphocytes % 13.2 %; Mean Corpuscular Hemoglobin 26.7 pg (28.0-33.3); Mean Platelet Volume 9.2 fL (9.4-12.4); Monocytes # 0.8 K/mcL (0.0-1.3); Monocytes % 9.5 %; Neutrophils # 6.4 K/mcL (1.6-8.9); Platelet Count 287 K/mcL (140-400); Red Blood Count 3.82 M/mcL (3.82-4.97); Red Cell Distribution Width 15.9 % (11.5-14.5); Segmented Neutrophils % 72.1 %
[2018-01-13 05:02] LABS: Calcium 8.9 mg/dL (8.6-10.3); Potassium 3.5 mEq/L (3.5-5.1)
[2018-01-13] MEDS: *HR* Heparin 5,000 UNIT/ML VIAL SQ SCH ×2 (05:40→17:56)
[2018-01-13] MEDS ORDERED: 0.9 % Sodium Chloride 1,000 ML ONE (07:10)
[2018-01-13] MEDS ORDERED: *HR* Heparin 10,000 UNIT/10 ML VIAL IV PRN (07:15)
[2018-01-13] MEDS: Nystatin SUSP 5 ML UD.LIQ PO SCH ×3 (08:20→17:55)
[2018-01-13] MEDS: Ascorbic Acid 500 MG TABLET PO SCH (08:20)
[2018-01-13] MEDS: Insulin LISPRO 300 UNITS/3 ML VIAL SQ SCH ×2 (08:22→11:43)
--- NOTE | 2018-01-13 08:34 | Neurology - Consult Note ---
Date of Encounter: 01/13/18 Time of Encounter: 08:34 Assessment and Plan (1) Metabolic encephalopathy Current Visit: Yes Status: Acute Patient is a 72-year-old female with multiple admissions over the past 2 months for altered mental status with urinary tract infections and urosepsis. She has several comorbid conditions including recurrent urinary infections and ESRD contributing to her altered mental status. She did receive vitamin B1 on admission. Suspect her fluctuating mental status is most likely multifactorial secondary to her medical conditions. There are no focal neurological deficits appreciated on examination. Patient is awake and able to answer questions, however with a profound flat affect. She has no neck pain or nuchal rigidity to indicate a possible underlying meningeal infection. She does have a history of prior lacunar infarcts on MRI one year prior, however unable to obtain an MRI at this time secondary to AICD placement. Head CT on current admission was negative for any bleeds. She is on aspirin and Plavix and statin at home. -Recommend continued medical care for her current infection and ESRD -Patient is currently not on aspirin and Plavix due to concerns of GI bleeding. -May consider obtaining repeat head CT without contrast if continuing to have fluctuations in her mental status. Cannot obtain CT with contrast due to ESRD. History of Present Illness Chief complaint: Altered mental status HPI: Ms. Bentley is a 72 year old female with ESRD who was consulted for fluctuating mental status. Patient is currently admitted to the hospital for sepsis secondary to UTI. She had multiple admissions since November 2017 for repeat urinary tract infections. She was evaluated by neurology approximately 7 weeks ago during her first admission for fluctuating mental status, at that time no focal neurological deficit was found aside from some weakness in her legs and asterixis. There was no headache, neck pain, or nuchal rigidity to suggest meningitis at that time. We were unable to obtain an MRI due to AICD placement , however the patient is on aspirin and Plavix and statin at home. There is a prior MRI in her records obtained in October 2016 which shows tiny old lacunar infarcts in the left thalamus, left midbrain, and left caudate head. At that time carotid Dopplers revealed right mid ICA severe stenosis however subsequent arteriogram found the stenosis to be secondary to a redundant vessel which led to a 70% stenosis. There were no carotid interventions at the time, and medical therapy was recommended with risk factor modifications. During this admission patient presented to the hospital from [facility] with altered mental status. In the ED she was found to have evidence suggesting UTI, blood and urine cultures were collected and urine has been positive for Proteus mirabilis. She was started on antibiotics and her mental status reportedly improved over the following days. While in the hospital patient has also been anemic and was FOBT positive. She received 1 packed red blood cells and was planned for an EGD yesterday, however this was canceled due to increased lethargy and a change in her mental status. This prompted the referral for neurology to evaluate the patient and rule out a neurological process for her acute change in mental status. This morning the patient was evaluated while in dialysis. Per the dialysis team the patient is awake and alert, however more drowsy than her previous treatment day. Today the patient is awake, she is alert to self and place however when questioned about date she states it is 2017. She has a flat affect which is reportedly her baseline. She responds to all questions with few word answers and follows all commands. She admits to generalized headache, but cannot remember its onset or provide any further details. CT head on admission was only positive for chronic small vessel ischemic disease. She denies any neck pain, changes in vision, or any unilateral asymmetric weakness. Past Med Surg Social Fam HX - Past Medical History Medical history: cardiomyopathy, CHF, coronary artery disease, CVA, diabetes, GERD, hyperlipidemia, hypertension, kidney stones, myocardial infarction, peripheral artery disease, renal disease, TIA Additional medical history: renal insufficiency, blood thinner Psychiatric history: no psych history - Past Surgical History Surgical History: appendectomy, breast surgery, carotid endarterectomy, cholecystectomy, coronary bypass (CABG), hysterectomy, pacemaker/AICD, LE vascular intervention Additional surgical history: cyst removed in left breast, left chest pacer/AICD - Social History Smoking Status: Former smoker Smokeless Tobacco Status: No Alcohol use: none Drug use: none - Family History Mother Living Status: Hx Family Cardiac Disorders: Yes (HTN) Hx Family Endocrine Disorder: Yes (diabetes) Hx Family Neurologic Disorders: Yes (2 strokes) Father Living Status: Hx Family Cardiac Disorders: Yes Hx Family Respiratory Disorders: Yes Hx Family Neurologic Disorders: Yes Medications and Allergies Aspirin Enteric Coated [Aspirin EC] 81 mg PO DAILY 08/20/15 [History] Insulin Glargine,Hum.rec.anlog [Ian Raymundo] 45 units SQ HS 06/10/16 [ History] Multivit-Minerals/Folic/Ginkgo [One Daily For Women 50+ Adv Tb] 1 tab PO QAM 12/19 [History] Furosemide [Lasix] 40 mg PO QAM 10/03/16 [History] Insulin ASPART [Novolog Flexpen] 25 unit SQ TIDWM 10/03/16 [History] Clopidogrel [Plavix] 75 mg PO DAILY 11/03/17 [History] Oxybutynin Chloride [Ditropan Xl] 10 mg PO DAILY 11/03/17 [History] Ascorbic Acid [Vitamin C] 500 mg PO BID 11/17/17 [History] Dextromethorphan HBr/Quinidine [Nuedexta 20-10 mg Capsule] 1 each PO DAILY 30 Days #30 capsule 12/08/17 [Rx] Escitalopram [Lexapro] 10 mg PO DAILY #20 tablet 12/30/17 [Rx] Lisinopril [Zestril] 2.5 mg PO DAILY #10 tablet 12/30/17 [Rx] Memantine [Namenda] 10 mg PO BID #10 tablet 12/30/17 [Rx] Amlodipine Besylate 10 mg PO QAM 01/07/18 [History] Ergocalciferol (VITAMIN D2) [Vitamin D2] 50,000 unit PO TU 01/07/18 [History] Ferrous Sulfate 325 mg PO DAILY 01/07/18 [History] LORazepam [Ativan] 1 mg PO HS 01/07/18 [History] Metoprolol Succinate 75 mg PO HS 01/07/18 [History] Rosuvastatin Calcium [Crestor] 10 mg PO DAILY 01/07/18 [History] 3 Allergy/AdvReac Type Severity Reaction Status Date / Time venom-honey bee Allergy Severe Swelling Verified 01/07/18 13:55 [bee venom (honey bee)] of Lip/Tongue/Throat Cortisone Allergy Mild Hives Verified 01/07/18 13:55 Penicillins Allergy See Verified 01/07/18 13:55 Comments NSAIDS (Non-Steroidal AdvReac Mild UPSET Verified 01/07/18 13:55 Anti-Inflamma STOMACH cefazolin [From Ancef] AdvReac Hives Verified 01/07/18 13:55 Qkmikjw-Utu-Alk Reductase AdvReac Muscle Pain Verified 01/07/18 13:55 Inhibitor [Statins] GRAPE FLAVOR Allergy Mild Swelling Uncoded 01/07/18 13:55 of the Eye All Systems: The remainder of the systems were reviewed and are negative Review of Systems: Per history of present illness Physical Examination - Vital Signs Vital Signs: Initial Vital Signs Temp Pulse Resp BP Pulse Ox 98.4 F 67 20 74/48 96 01/07/18 11:48 01/07/18 11:48 01/07/18 11:48 01/07/18 11:48 01/07/18 11:48 - Exam Exam: Constitutional: Patient is resting in bed during dialysis. She has a flat affect and speaks softly. Alert and oriented 2. Neck: Able to flex the neck, no nuchal rigidity noted. Neurological: Pupils are equal round and reactive to light, extraocular muscles are intact and patient follows commands on EOM testing. She has sensation intact on her face. No significant facial droop noted, however patient did not follow command to smile. Tongue protrudes midline. Hearing grossly intact. Upper extremity's: Sensation intact bilaterally throughout. Litigation Legal Assistant strength is weak but symmetric in both upper extremities. Upper extremity motor strength is 4 out of 5 and symmetric. Patient is able to raise her hands off bed. Biceps reflexes are faint bilaterally. Lower extremities: Sensation intact to light touch in lower extremities bilaterally. Patient can wiggle her toes but she is unable to lift either leg off the bed as she states she is too weak. Unable to elicit patellar reflexes. Results - Laboratory Findings CBC and BMP: 01/13/18 04:06 01/13/18 04:06 Abnormal lab findings: Abnormal lab results Hgb 10.2 g/dL (11.5-15.4) L 01/13/18 04:06 Hct 34.0 % (35.3-44.9) L 01/13/18 04:06 MCH 26.7 pg (28.0-33.3) L 01/13/18 04:06 MCHC 30.0 g/dL (31.6-35.5) L 01/13/18 04:06 RDW 15.9 % (11.5-14.5) H 01/13/18 04:06 MPV 9.2 fL (9.4-12.4) L 01/13/18 04:06 PT 12.8 Seconds (9.4-12.1) H 01/07/18 12:28 ABG pCO2 32 mmHg (35-45) L 01/07/18 12:23 ABG pO2 81 mmHg (85-104) L 01/07/18 12:23 ABG Base Excess -4 mEq/L (-2 to 3) L 01/07/18 12:23 Sodium 135 mEq/L (136-145) L 01/13/18 04:06 BUN 35 mg/dL (8-23) H 01/13/18 04:06 Creatinine 4.92 mg/dL (0.60-1.20) H 01/13/18 04:06 Est GFR ( Amer) 11 (> 60) L 01/13/18 04:06 Est GFR (Non-Af Amer) 9 (> 60) L 01/13/18 04:06 Glucose 223 mg/dL (70-105) H 01/13/18 04:06 POC Glucose 178 mg/dL (70-99) H 01/12/18 16:15 Lactic Acid < 0.2 mmol/L (0.5-2.2) L 01/07/18 23:04 Alkaline Phosphatase 151 Units/L (34-104) H 01/07/18 12:28 Troponin I 0.08 ng/mL (< 0.04) H* 01/07/18 12:28 Albumin 2.8 g/dL (3.5-5.7) L 01/07/18 12:28 Globulin 4.0 g/dL (2.4-3.5) H 01/07/18 12:28 Albumin/Globulin Ratio 0.7 (1.1-2.2) L 01/07/18 12:28 Urine Clarity Turbid (Clear) A 01/07/18 14:58 Ur Specific Drummond 1.007 (1.010-1.025) L 01/07/18 14:58 Urine Protein >=1000 mg/dL (Neg-Trace) H 01/07/18 14:58 Urine Ketones Trace mg/dL (Negative) H 01/07/18 14:58 Urine Blood Large (Negative) H 01/07/18 14:58 Ur Leukocyte Esterase Large (Negative) H 01/07/18 14:58 Urine Microscopic WBC TNTC per hpf (0-3) H 01/07/18 14:58 Ur Culture Indicated? YES (NO) A 01/07/18 14:58 Stool Occult Blood Positive (Negative) A 01/10/18 08:15 Consult Discharge Plan - Plan Referrals: Wale Lam DO [Primary Care Provider] - (Patient is edd [facility])
--- NOTE | 2018-01-13 11:02 | Nephrology Progress Note ---
Date of Encounter: 01/13/18 Time of Encounter: 09:30 - Assessment and Plan (1) Acute kidney injury superimposed on chronic kidney disease Status: Chronic HD today. I reviewed her labs, vitals, med list, prior imaging and progress notes as part of the complex E/M and MDM. (2) Anemia Status: Chronic Goal Hgb is 10-11 and she is below the goal. May need MEGHA and/or IV iron; will monitor. Qualifiers: Anemia type: unspecified type Qualified Code(s): D64.9 - Anemia, unspecified (3) Nonverbal Status: Chronic Psychiatric history. As per primary. Subjective Principal diagnosis: ESRD with missed dialysis Interval history: Pt was s/e earlier today, and she did not affirm N/V/D or cramping or other major complaints related to dialysis. However, she largely refused to talk other than mumble. Objective - Vital Signs Vital signs: Vital Signs Temp Pulse Resp BP Pulse Ox 01/13/18 07:07 98.2 F 88 18 109/62 97 01/13/18 04:53 97.8 F 96 17 98/63 98 01/12/18 23:59 98.2 F 83 16 101/64 97 01/12/18 19:50 98.5 F 86 17 98/62 99 01/12/18 16:46 98.7 F 92 18 132/77 97 01/12/18 12:06 89 18 102/50 97 01/12/18 11:14 99.1 F 95 19 104/67 98 Intake and Output 01/12/18 01/13/18 01/13/18 23:59 07:59 15:59 Other: Weight 94.2 kg Blood Glucose* 259 246 - General Appearance Exam: General appearance: Present: appears started age, obese, chronically ill, fatigue, frail EENT: Present: ATNC, PERRL, mucous membranes moist Neck: Present: supple Respiratory: Present: clear Cardiology: Present: edema (1+ pretibial pitting edema b/l), regular rate, regular rhythm, normal S1, normal S2 Dialysis Vascular Access: Venous Catheter (Permacath in place and was C/D/I) Gastrointestinal: Present: no tenderness, no guarding, obese Integumentary: Present: warm and dry Neurologic: Present: no focal deficit, no asterixis Additional Comments: Flat affect and minimal speech. - Lab 01/13/18 04:06 01/13/18 04:06 Most recent lab results ABG pH 7.41 pH Units (7.32-7.45) 01/07/18 12:23 ABG pCO2 32 mmHg (35-45) L 01/07/18 12:23 ABG pO2 81 mmHg (85-104) L 01/07/18 12:23 ABG HCO3 21 mEq/L (21-27) 01/07/18 12:23 ABG O2 Saturation 96 % (95-98) 01/07/18 12:23 Calcium 8.9 mg/dL (8.6-10.3) 01/13/18 04:06 Phosphorus 3.7 mg/dL (2.7-4.5) 01/11/18 04:41 Magnesium 1.8 mg/dL (1.6-2.6) 01/12/18 05:31 Consult Discharge Plan - Plan Instructions: Sepsis (DC) Referrals: Pee Reina MD [Partnered Physician] - (Please call and schedule a hospital follow up in 4 weeks if you have not heard from the office with an appointment date and time by Tuesday01/17/18) Wale Lam DO [Primary Care Provider] - (Patient is edd P) Prescriptions: Ertapenem [INVanz] 500 mg IVPB DAILY #7 vial Omeprazole [PriLOSEC] 40 mg PO DAILY@629 #30 capsule.
--- NOTE | 2018-01-13 11:55 | Event Note ---
<Ebony Alicea - Last Filed: 01/13/18 11:49> Date of Encounter: 01/13/18 Time of Encounter: 11:[address] Reina, pts hgb is stable. She has multiple comorbid conditions, and altered mental status. Monitor cbc, recommend EGD as an outpatient in 4 weeks. <Pee Reina - Last Filed: 01/20/18 07:24> Agree with above. I have personally performed a face to face evaluation on this patient. I have reviewed and agree with the care plan. History and Exam by me shows:
--- NOTE | 2018-01-13 12:12 | Internal Med Progress Note ---
Hospitalist Progress Note - Encounter Date of Encounter: 01/13/18 Time of Encounter: 12:09 - Subjective Interval History: patient was seen and examined at bed side. alert and awake tolerating PO diet denies fever, chills, N/v/D. - Exam Vitals: Temp Pulse Resp BP Pulse Ox 97.6 F 88 18 109/54 97 01/13/18 08:55 01/13/18 07:07 01/13/18 08:55 01/13/18 10:25 01/13/18 07:07 Exam: General: Patient is alert, oriented, no acute distress, Head: atraumatic, normocephalic, Eye: normal appearance, PERRL, no scleral icterus, no conjunctival injection ENT: mucous membranes moist, normal external ear exam, oral thrush Neck: normal inspection, trachea midline, full ROM, no carotid bruits Chest: normal inspection, symmetric chest rise, left sided dialysis catheter that is clean Respiratory: decreased breathsounds secondary to body habitus, unable to appreciated any wheezes crackles at the MAL bilateraritly Cardiovascular: Regular rate and rhythm. s1 and s2 No clicks, rubs, gallops, or murmors. Abdomen: Bowel sounds present normoactive x-4 quadrants. Abdomen is soft, nondistended. no Epigastric tenderness. No guarding or rebound. No organomegaly noted, obese musculoskeletal: Spontaneously moving all extremities. trace edema of the bilateral lower extremities, no calf tenderness Skin: warm, dry, intact. (Right heel ulcer stage II dry no signs of infection Neuro: Alert and oriented ( to her birthdate, [facility] and herself and myself) . minimum movement bilateral upper extremities, minimal movement right lower extremities wiggles toes , minimal left lower extremities wiggles toes , based on ECF staff this is her baseline Psych: Patient's affect is normal - Assessment and Plan (1) Metabolic encephalopathy Current Visit: Yes Status: Acute Assessment and Plan: likely secondary to infection and uremia- resolved will continue to redirect and monitor mental status. ( as per / nursing staff now at baseline) if mental status continues to fluctuate- will consider repeat CT head neurology recs appreciated Ct head: IMPRESSION: Sequela of chronic small vessel ischemic disease. Improving aeration of the sphenoid sinuses. Obstruction of the external auditory canals with bilateral cerumen plugs. will resume ASA and plavix today - follow H/H in AM ( as per GI she is to have EGD as OP in 4 weeks) (2) Complicated UTI (urinary tract infection) Current Visit: Yes Status: Acute Assessment and Plan: urine cx positive for proteus - continue ertapenem day 6 Ct abdomen and pelvis Double-J stents are in place bilaterally. There appears be mild bilateral hydronephrosis. urology recs appreciated - Patient is due for JJ stent exchange in 1 month. D/c plunkett catheter bladder scan PRN (3) Anemia Current Visit: No Status: Chronic Assessment and Plan: s/p 1 PRBC h/h stable baseline around 8 currently 10 FOBT positive GI consulted - recommend EGD as OP in 4 weeks reseumed ASA, plavix on 01/13 will monitor h/H nephrology on board- May need MEGHA and/or IV iron; PPI (4) ESRD (end stage renal disease) on dialysis Current Visit: Yes Status: Chronic Assessment and Plan: nephrology on board S/P HD on 01/09 will follow PO4 (5) Catatonic disorder due to known physiological condition Current Visit: No Status: Acute Assessment and Plan: continue home medications (6) Hypotension Current Visit: Yes Status: Acute Assessment and Plan: stable, most likely secondary to resolving infection continue to monitor vitals continue to hold BB and ACEI for now (7) Physical deconditioning Current Visit: Yes Status: Acute Assessment and Plan: PT/OT SW and CM palliative consulted for goals of care - Time Spent with Patient Total time spent is greater than 50% in coordination of care (as documented) at patient's floor/unit and/or counseling patient: Internal Medicine: Result - Labs CBC & Chem 7: 01/13/18 04:06 01/13/18 04:06 Labs: Short CBC 01/13/18 Range/Units 04:06 WBC 8.8 (4.3-11.1) K/mcL Hgb 10.2 L (11.5-15.4) g/dL Hct 34.0 L (35.3-44.9) % Plt Count 287 (140-400) K/mcL Neutrophils # 6.4 (1.6-8.9) K/mcL BMP 01/13/18 04:06 Sodium 135 L Potassium 3.5 Chloride 98 Carbon Dioxide 24 BUN 35 H Creatinine 4.92 H Glucose 223 H Calcium 8.9 - ABG Interpretation ABG results: ABG ABG pH 7.41 pH Units (7.32-7.45) 01/07/18 12:23 ABG pCO2 32 mmHg (35-45) L 01/07/18 12:23 ABG pO2 81 mmHg (85-104) L 01/07/18 12:23 ABG O2 Saturation 96 % (95-98) 01/07/18 12:23 PT/INR, D-dimer PT 12.8 Seconds (9.4-12.1) H 01/07/18 12:28 Consult Discharge Plan - Plan Referrals: Wale Lam DO [Primary Care Provider] - (Patient is edd [facility]) (3) Anemia Qualifiers: Anemia type: unspecified type Qualified Code(s): D64.9 - Anemia, unspecified (6) Hypotension Qualifiers: Hypotension type: other hypotension type Qualified Code(s): I95.89 - Other hypotension
[2018-01-13] MEDS ORDERED: Aspirin Enteric Coated 81 MG Tablet PO SCH (12:15)
[2018-01-13 12:51] VITALS: BP 110/53
--- NOTE | 2018-01-13 14:21 | Discharge Summary ---
- NOTES TO OUTPATIENT PROVIDER Notes to Outpatient Provider: follow up CBC in 3 days, if H/H trends down hold DAPT ( has history of CDA, CVA,TIA). follow up electrolytes . follow up BP ad resume lisinoprila dn lasix as per PCP discretion. follow up with GI in 4 weeks. follow up with urology to have JJ stents removed in 1 month Date of Encounter: 01/13/18 Time of Encounter: 14:16 - Discharge Diagnosis (1) Metabolic encephalopathy Priority: Primary Status: Acute (2) Complicated UTI (urinary tract infection) Priority: Secondary Status: Acute (3) Anemia Priority: Secondary Status: Chronic Qualifiers: Anemia type: unspecified type Qualified Code(s): D64.9 - Anemia, unspecified (4) ESRD (end stage renal disease) on dialysis Priority: Secondary Status: Chronic (5) Catatonic disorder due to known physiological condition Priority: Secondary Status: Acute (6) Hypotension Priority: Secondary Status: Acute Qualifiers: Hypotension type: other hypotension type Qualified Code(s): I95.89 - Other hypotension (7) Physical deconditioning Priority: Secondary Status: Acute Hospital course: Ms. Bentley is a 72 year old female with history of end-stage renal disease, history of CVA,CHF, CAD, CVA, complicated UTI s/p J stent placement . Patient was transferred from [facility] for evaluation for altered mental status, hypotension and hypoxemia and was admitted for metabolic encephalopathy and hypotension to the ICU. CT head was performed ( results below). she was given fluid challenge with improvement in her BP. UA was positive for proteus mirabilis sensitive to ertapenem. nephrology was consulted as she had missed multiple sessions of dialysis secondary to her malfunctioning catheter. dialysis catheter was flushed and she received dialysis during hospitalization. baseline H/H is about 8 she recieved one unit of PRBC. stool was sent for Cdif which was negative but positive for FOBT. GI was consulted who recommended her to have EGD in 4 weeks as OP. mental status remained stable and at baseline as per and nursing staff who know the patient well ( has had multiple admission at [facility]). 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 neurology however was consulted and recommendations followed. mental status remained stable without fluctuations in her mental status. She does have a history of prior lacunar infarcts on MRI one year prior, however unable to obtain an MRI at this time secondary to AICD placement. Head CT on current admission was negative for any bleeds. she was restarted on her DAPT as she has history of CAD, CVA and TIA. H/H remained stable at 9-10. she was started on PPI. SBP remained >100 through out admission however it was below 120. lisinopril and lasix held and for PCP to resume as per their discretion. she is to have CBC repeated in 3 days and if CBC trends down she is to have DAPT stopped ( has history of CAD, CVA, TIA) . H/H remained stable while hospitalized x 4 days. urology was consulted as she has a recentl history of JJ stents, Hydronephrosis is likely due to indwelling ureteral stents, as the function to dilate the renal system. Patient is due for JJ stent exchange in 1 month with urology as OP. Discharge discussed with: patient, nurse, social work, case management, medical record consultant - Time Spent with Patient Total time spent providing and/or coordinating discharge services: Greater than 30 minutes (40) - Discharge Medications Prescriptions: Ertapenem [INVanz] 500 mg IVPB DAILY #7 vial Omeprazole [PriLOSEC] 40 mg PO DAILY@0630 #30 capsule.dr Demaroc Medications: Aspirin Enteric Coated [Aspirin EC] 81 mg PO DAILY 08/20/15 [History] Insulin Glargine,Hum.rec.anlog [Toujeo Solostar] 45 units SQ HS 06/10/16 [ History] Multivit-Minerals/Folic/Ginkgo [One Daily For Women 50+ Adv Tb] 1 tab PO QAM 12/19 [History] Insulin ASPART [Novolog Flexpen] 25 unit SQ TIDWM 10/03/16 [History] Clopidogrel [Plavix] 75 mg PO DAILY 11/03/17 [History] Ascorbic Acid [Vitamin C] 500 mg PO BID 11/17/17 [History] Dextromethorphan HBr/Quinidine [Nuedexta 20-10 mg Capsule] 1 each PO DAILY 30 Days #30 capsule 12/08/17 [Rx] Escitalopram [Lexapro] 10 mg PO DAILY #20 tablet 12/30/17 [Rx] Memantine [Namenda] 10 mg PO BID #10 tablet 12/30/17 [Rx] Ergocalciferol (VITAMIN D2) [Vitamin D2] 50,000 unit PO TU 01/07/18 [History] Ferrous Sulfate 325 mg PO DAILY 01/07/18 [History] Metoprolol Succinate 75 mg PO HS 01/07/18 [History] Rosuvastatin Calcium [Crestor] 10 mg PO DAILY 01/07/18 [History] Ertapenem [INVanz] 500 mg IVPB DAILY #7 vial 01/13/18 [Rx] Omeprazole [PriLOSEC] 40 mg PO DAILY@0630 #30 capsule. 01/13/18 [Rx] Allergies/Adverse Reactions: 3 Allergy/AdvReac Type Severity Reaction Status Date / Time venom-honey bee Allergy Severe Swelling Verified 01/07/18 13:55 [bee venom (honey bee)] of Lip/Tongue/Throat Cortisone Allergy Mild Hives Verified 01/07/18 13:55 Penicillins Allergy See Verified 01/07/18 13:55 Comments NSAIDS (Non-Steroidal AdvReac Mild UPSET Verified 01/07/18 13:55 Anti-Inflamma STOMACH cefazolin [From Ancef] AdvReac Hives Verified 01/07/18 13:55 Lkdhrlp-Leg-Jpu Reductase AdvReac Muscle Pain Verified 01/07/18 13:55 Inhibitor [Statins] GRAPE FLAVOR Allergy Mild Swelling Uncoded 01/07/18 13:55 of the Eye Date of admission: 01/07/18 18:54 Primary care physician: Wale Lam DO Consults: 01/08/18 14:14 Consult to Occupational Therapy [CONS] Routine Comment: Evaluate, develop and implement POC Reason for Consult: Physical deconditioning due to recent fall Does patient have active BEDREST order?: No Is patient medically & hemodynamically stable?: Yes Patient assessed for mobility or mobilized this visit?: Yes Consult to Physical Therapy [CONS] Routine Comment: Evaluate, develop and implement POC Reason for Consult: Physical deconditioning Does patient have active BEDREST order?: No Is patient medically & hemodynamically stable?: Yes Patient assessed for mobility or mobilized this visit?: Yes 01/09/18 08:45 Consult to Dialysis [CONS] ONCE 01/10/18 09:51 Consult to Optical Scientist ([facility]) [CONS] Routine Reason For Exam: Reason for SW Consult: multiple re-admissions from [facility], options for change? 01/10/18 12:06 Consult to Palliative Care [CONS] Routine Comment: Consulting Provider: Palliative Care Ilene Reason for Consult: goals of care, wilver misses dialysis and at times reports that she does not want dialysis ( is ESRD) Call Completed: No 01/10/18 13:13 Consult to Gastroenterology [CONS] Routine Consulting Provider: Gastroenterology Ilene Reason for Consult: FOBT positive, anemia requiring transfusion Call Completed: No 01/10/18 18:42 Consult to Urology [CONS] Routine Consulting Provider: Urology Ilene Reason for Consult: Double-J stents are in place bilaterally. There appears be mild bilateral hydronephrosis. with proteus UTI Call Completed: No 01/11/18 06:30 Consult to Dialysis [CONS] ONCE 01/12/18 13:00 Consult to Neurology [CONS] Routine Consulting Provider: [facility] Reason for Consult: altered mental status and lethargy Call Completed: No 01/13/18 07:15 Consult to Dialysis [CONS] ONCE 01/13/18 13:46 Consult to Invasive Line Access Team [CONS] Routine Reason for Consult: Kettle Operator IV Antibiotics Line Type: EPIV - Constitutional Vitals: Temp Pulse Resp BP Pulse Ox 97.8 F 88 18 110/53 97 01/13/18 12:48 01/13/18 07:07 01/13/18 12:48 01/13/18 12:48 01/13/18 07:07 General appearance: Present: A&O X 0 Exam: General: Patient is alert, oriented, no acute distress, Head: atraumatic, normocephalic, Eye: normal appearance, PERRL, no scleral icterus, no conjunctival injection ENT: mucous membranes moist, normal external ear exam, oral thrush Neck: normal inspection, trachea midline, full ROM, no carotid bruits Chest: normal inspection, symmetric chest rise, left sided dialysis catheter that is clean Respiratory: decreased breathsounds secondary to body habitus, unable to appreciated any wheezes crackles at the MAL bilateraritly Cardiovascular: Regular rate and rhythm. s1 and s2 No clicks, rubs, gallops, or murmors. Abdomen: Bowel sounds present normoactive x-4 quadrants. Abdomen is soft, nondistended. no Epigastric tenderness. No guarding or rebound. No organomegaly noted, obese musculoskeletal: Spontaneously moving all extremities. trace edema of the bilateral lower extremities, no calf tenderness Skin: warm, dry, intact. stage 2 ulcer Neuro: Alert and oriented ( to her birthdate, [facility] and herself and myself) . minimum movement bilateral upper extremities, minimal movement right lower extremities wiggles toes , minimal left lower extremities wiggles toes , based on ECF staff this is her baseline Psych: Patient's affect is normal - Patient Status Disposition: Transfer SNF Condition: Fair Functional capacity at discharge: bed bound Overall status at discharge: patient is progressing back to baseline - Discharge Instructions Follow Up With: Pee Reina MD [Partnered Physician] - (Please call and schedule a hospital follow up in 4 weeks if you have not heard from the office with an appointment date and time) Wale Lam DO [Primary Care Provider] - (Patient is edd WMP) - Diet and Activity Activity: as per physical therapy Diet: advance to your usual diet
--- NOTE | 2018-01-13 16:13 | Physician Discharge Referral ---
ExtendedCare Referral Info Provider in Charge after Transfer: PCP - Diagnosis (1) Metabolic encephalopathy Priority: Primary Status: Acute (2) Complicated UTI (urinary tract infection) Priority: Secondary Status: Acute (3) Anemia Priority: Secondary Status: Chronic (4) ESRD (end stage renal disease) on dialysis Priority: Secondary Status: Chronic (5) Catatonic disorder due to known physiological condition Priority: Secondary Status: Acute (6) Hypotension Priority: Secondary Status: Acute (7) Physical deconditioning Priority: Secondary Status: Acute Prognosis: Fair Aware of Diagnosis: Family Aware of Prognosis: Family - Transfer Medications Prescriptions: Ertapenem [INVanz] 500 mg IVPB DAILY #7 vial Omeprazole [PriLOSEC] 40 mg PO DAILY@0630 #30 capsule. Home Medications: Aspirin Enteric Coated [Aspirin EC] 81 mg PO DAILY 08/20/15 [History] Insulin Glargine,Hum.rec.anlog [Toujeo Solostar] 45 units SQ HS 06/10/16 [ History] Multivit-Minerals/Folic/Ginkgo [One Daily For Women 50+ Adv Tb] 1 tab PO QAM 12/19 [History] Insulin ASPART [Novolog Flexpen] 25 unit SQ TIDWM 10/03/16 [History] Clopidogrel [Plavix] 75 mg PO DAILY 11/03/17 [History] Ascorbic Acid [Vitamin C] 500 mg PO BID 11/17/17 [History] Dextromethorphan HBr/Quinidine [Nuedexta 20-10 mg Capsule] 1 each PO DAILY 30 Days #30 capsule 12/08/17 [Rx] Escitalopram [Lexapro] 10 mg PO DAILY #20 tablet 12/30/17 [Rx] Memantine [Namenda] 10 mg PO BID #10 tablet 12/30/17 [Rx] Ergocalciferol (VITAMIN D2) [Vitamin D2] 50,000 unit PO TU 01/07/18 [History] Ferrous Sulfate 325 mg PO DAILY 01/07/18 [History] Metoprolol Succinate 75 mg PO HS 01/07/18 [History] Rosuvastatin Calcium [Crestor] 10 mg PO DAILY 01/07/18 [History] Ertapenem [INVanz] 500 mg IVPB DAILY #7 vial 01/13/18 [Rx] Omeprazole [PriLOSEC] 40 mg PO DAILY@0630 #30 capsule. 01/13/18 [Rx] Allergies/Adverse Reactions: 3 Allergy/AdvReac Type Severity Reaction Status Date / Time venom-honey bee Allergy Severe Swelling Verified 01/07/18 13:55 [bee venom (honey bee)] of Lip/Tongue/Throat Cortisone Allergy Mild Hives Verified 01/07/18 13:55 Penicillins Allergy See Verified 01/07/18 13:55 Comments NSAIDS (Non-Steroidal AdvReac Mild UPSET Verified 01/07/18 13:55 Anti-Inflamma STOMACH cefazolin [From Ancef] AdvReac Hives Verified 01/07/18 13:55 Wxgsckg-Zso-Xbc Reductase AdvReac Muscle Pain Verified 01/07/18 13:55 Inhibitor [Statins] GRAPE FLAVOR Allergy Mild Swelling Uncoded 01/07/18 13:55 of the Eye - Respiratory Orders Oxygen / L per min (2) Smoking Cessation: Smoking cessation has been advised. For more information, call the [employer] Tobacco Quit Line at 1-450-TLFY-NOW. - Advance Directives Code Status: Full Code - Rehabiliation Orders Rehab Orders: Evaluation for Physical Therapy, Evaluation for Occupational Therapy, Evaluation for Speech Therapy - Treatments Skin tear care topically daily PRN per policy - Diet Orders Mechanical Soft CERTIFICATION: I certify that the transfer of the above named patient to an Extended Care Facility is necessary for the continuing treatment of the diagnosis listed. The above information is true and accurate reflection of patient's current condition. Confidential - Redisclosure prohibited without a patient's written consent.
== END 2018-01-13 18:57 | DRG 871 ==
LOC: EMEROOARM 11:43 → ICNU 18:54 → SUATTDRO 18:54 → ICNU 20:35 → 2ANU 01-10 14:10
PROVIDERS: ADMIT Internal Medicine; ATTEND Internal Medicine